=== PATIENT | male | born 1945 | race Caucasian/White ===

== ENCOUNTER → 2016-08-08 | Outpatient (CLI) | payer MEDICARE ==
[~2016-08-08] MED LIST: ATOR40TA70 PO; CLOP75TA28 PO; FURO40TA4 PO; GABA-488 PO; HYDR-3812 PO; Hydrocodone/APAP; LOSA25TA21 PO; Lasix; Lovastatin; MELO15TA39 PO; Meloxicam; POTA10CA43 PO; Potassium; Potassium Chloride
[2016-08-08 17:12] LABS: MEAN PLATELET VOLUME 9.5 FL (7.4-10.4); RED BLOOD COUNT 6.08 10^6/uL (4.35-5.85); RED CELL DISTRIBUTION WIDTH 14.3 % (10.0-14.5); WHITE BLOOD COUNT 7.6 10^3/uL (4.3-11.0)
[2016-08-08 17:23] LABS: KETONES,URINE NEGATIVE (NEGATIVE); LEUKOCYTE ESTERASE ,URINE 1+ (NEGATIVE); NITRITE,URINE NEGATIVE (NEGATIVE); PH,URINE 5 (5-9); PROTEIN,URINE 2+ (NEGATIVE); UROBILINOGEN,URINE 4 MG/DL (NORMAL)
[2016-08-08 17:37] LABS: BILIRUBIN,URINE NEGATIVE (NEGATIVE); WBC,URINE 0-2 /HPF
[2016-08-08 17:39] LABS: ALANINE AMINOTRANSFERASE 19 U/L (0-55); ANION GAP 11 MMOL/L (5-14); ASPARTATE AMINO TRANSFERASE 17 U/L (5-34); BILIRUBIN,TOTAL 0.6 MG/DL (0.1-1.0); BLOOD UREA NITROGEN 12 MG/DL (7-18); BUN/CREATININE RATIO 11 (0-20); CALCIUM 8.8 MG/DL (8.5-10.1); CARBON DIOXIDE 24 MMOL/L (21-32); CHLORIDE 105 MMOL/L (98-107); CREATININE SERUM 1.11 MG/DL (0.60-1.30); GFR ESTIMATED > 60; GLUCOSE 98 MG/DL (70-105); HEMOLYSIS 11 (0-29); ICTERUS 0.6 (0-1.9); LIPEMIA 5 (0-49); POTASSIUM 3.4 MMOL/L (3.6-5.0); SODIUM 140 MMOL/L (135-145); TOTAL PROTEIN 5.5 GM/DL (6.4-8.2)
[2016-08-08 17:59] LABS: THYROID STIMULATING HORMONE 3.27 UIU/ML (0.35-4.94); TROPONIN I < 0.30 NG/ML (<0.30)
[2016-08-08] MEDS: NS 100 ML (IVPB) BAG IV ONE (18:24)
[2016-08-08] MEDS: IOHEXOL 350 MG/ML 100 ML (OMNIPAQUE 350) VIAL IV ONE (18:24)
[2016-08-08] MEDS: CATHETER FLUSH 10 ML SYR IV PRN (18:24)
--- NOTE | 2016-08-08 18:47 | Diagnostic Imaging Report ---
PROCEDURE: CT head with and without contrast. TECHNIQUE: Multiple contiguous axial images were obtained through the brain before and after the administration of intravenous contrast. INDICATION: Visual disturbance and dizziness Comparison is made to study of 04/08/2014. There has been development of focal low-density within the posterior left parietal cortex and underlying white matter. This overall appearance with associated volume loss indicates nonacute infarct. There is no CT evidence of an acute infarct. There is no abnormal mass effect or shift of midline structures. Calvarium is intact and visualized paranasal sinuses are clear. No abnormal contrast enhancement is identified. IMPRESSION: Interval development of nonacute infarct or other insult in the left parietal region since 04/08/2014. There is no CT evidence of acute intracranial abnormality. MRI does have greater sensitivity for acute infarct if indicated. Dictated by: Dictated on workstation # [id number]
== END ==
LOC: RAD 16:49
PROVIDERS: ATTEND Physician Assistant
DX: R53.83 Other fatigue (principal); R42 Dizziness and giddiness; R51 Headache; R93.0 Abnormal findings on diagnostic imaging of skull and head, not elsewhere classified
CPT/HCPCS: 36415; 70470; 80053; 81000; 84443; 84484; 85027

== ENCOUNTER 2016-08-14 05:31 | Outpatient (CLI) | payer MEDICARE ==
[~2016-08-14] VITALS: Ht 177.8 cm; Wt 90.7 kg
== END 2016-08-14 14:27 ==
LOC: PREOP 05:31
PROVIDERS: ATTEND Internal Medicine
DX: Z01.818 Encounter for other preprocedural examination (principal); D12.8 Benign neoplasm of rectum

== ENCOUNTER 2016-08-16 06:56 | Day surgery (SDC) | payer MEDICARE ==
--- NOTE | 2016-08-12 20:24 | HISTORY AND PHYSICAL ---
DATE OF SERVICE: HISTORY OF PRESENT ILLNESS: The patient is a 71-year-old white male referred for surveillance colonoscopy. In August of last year, he had multiple adenomas removed. He had a large tubulovillous adenoma removed via snare ligation from the rectum. He had more than the average amount of bleeding and had to perform sclerotherapy with epinephrine which did terminate bleeding. He did have significant associated rectal spasm with pain at the time of the procedure that resolved over the next several days. He did not require blood transfusion. The polyp was quite friable and while it was snared, pathologist noted that there were multiple fragments of tissue with no evidence for overt malignancy. In the interim, he has noted no bright red blood per rectum, has had no rectal pain and denies any incontinence problems. He has been feeling well. There have been no changes in his health history. PAST MEDICAL HISTORY: Significant for coronary artery disease. He underwent bypass surgery in 2000, and he underwent left carotid endarterectomy in 2014. He is still on antiplatelet therapy in the form of clopidogrel 75 mg daily. He has a past history of hypertension and hyperlipidemia. PAST SURGICAL HISTORY: Also significant for several neck fusion surgeries in the past. PHYSICAL EXAMINATION: GENERAL: Reveals a white male who appears to be in no acute distress. VITAL SIGNS: Blood pressure was 116/62, weight is 207 pounds and is unchanged from one year ago. CHEST: Clear. CARDIOVASCULAR: Reveals a regular rate and rhythm without murmur, S3 or S4. NECK: Revealed no JVD, adenopathy or bruits. ABDOMEN: Soft, supple without mass, organomegaly or tenderness. RECTAL: Deferred at the time of the procedure. EXTREMITIES: Reveal no cyanosis, clubbing or edema. ASSESSMENT AND PLAN: The patient was set up for surveillance colonoscopy due to previous villous adenoma removed from the rectum. Prep instructions with Colyte were given. He reported symptoms of bloating last time and could not finish the Suprep bowel prep that was given. He was given 10 mg Reglan tablet to take one hour prior to initiating his Colyte prep . He is to discontinue Plavix. He occasionally takes ibuprofen at bedtime and was advised to abstain from this as well. Thank you for the referral of this pleasant gentleman. Job ID: [id number] DocumentID: [id number] Dictated Date: 08/12/2016 17:22:47 Jig Filler Date: 08/12/2016 20:05:20 Dictated By: KESHAV CHISHOLM MD MTDD
[~2016-08-16] VITALS: Ht 177.8 cm; Wt 90.7 kg
[2016-08-16] MEDS ORDERED: 1/2 NS IV SOLUTION 1,000 ML IV STA (07:11)
[2016-08-16] MEDS ORDERED: FLUMAZENIL (ROMAZICON) 0.1 MG/ML 5 ML VIAL INJ PRN (07:15)
[2016-08-16] MEDS ORDERED: MIDAZOLAM 2 MG/2 ML (VERSED) VIAL IVP PRN (07:15)
[2016-08-16] MEDS ORDERED: NALOXONE 0.4 MG/ML 1 ML (NARCAN) VIAL IVP PRN (07:15)
[2016-08-16] MEDS ORDERED: LIDOCAINE JELLY 2% (XYLOCAINE) 5 ML TUBE MM PRN (07:15)
--- NOTE | 2016-08-16 07:45 | Pre-Op Note & Conscious Sedat ---
Pre-Operative Progress Note H&P Reviewed The H&P was reviewed, patient examined and no changes noted. Date H&P Reviewed: Aug 16, 2016 Time H&P Reviewed: 07:45 Conscious Sedation Pre-Proced ASA Class: 2 Airway Mallampati Classification: ([place] appropriate class) I. II. III, IV Lungs Heart ASA score ASA 1: a normal healthy patient ASA 2: a patient with a mild systemic disease (mid diabetes, controlled hypertension, obesity ASA 3: a patient with a severe systemic disease that limits activity (angina , COPD, prior Myocardial infarction) ASA 4: a patient with an incapacitating disease that is a constant threat to life (CHF, renal failure) ASA 5: a moribund patient not expected to survive 24 hrs. (ruptured aneurysm) ASA 6: a declared brain patient whose organs are being harvested. For emergent operations, add the letter E after the classification Grade 2 Sedation Plan: Analgesia, Amnesia, Plan communicated to team members, Discussed options with patient/fam, Discussed risks with patient/fam Note The patient is an appropriate candidate to undergo the planned procedure, sedation, and anesthesia. The patient immediately re-assessed prior to indication. KESHAV CHISHOLM MD Aug 16, 2016 07:45
[2016-08-16 07:51] VITALS: BP 120/83
[2016-08-16] MEDS ORDERED: CLOP75TA28 PO (08:01)
[2016-08-16] MEDS ORDERED: MELO15TA39 PO (08:01)
[2016-08-16] MEDS ORDERED: CYCL5TAB PO (08:01)
[2016-08-16] MEDS ORDERED: MIDAZOLAM 2 MG/2 ML (VERSED) VIAL ONE (08:03)
[2016-08-16] MEDS ORDERED: LIDOCAINE JELLY 2% (XYLOCAINE) 5 ML TUBE ONE (08:03)
[2016-08-16] MEDS ORDERED: fentaNYL INJECTION 100 MCG/2 ML AMP ONE (08:03)
[2016-08-16] MEDS: fentaNYL INJECTION 100 MCG/2 ML AMP IVP PRN ×2 (08:23→08:31)
[2016-08-16] MEDS ORDERED: EPINEPHrine INJECTION 1 MG/ML AMP ONE (09:08)
[2016-08-16 09:30] VITALS: BP 109/46
[2016-08-16 10:15] VITALS: BP 137/99
[2016-08-16 13:40] VITALS: BP 137/99
--- NOTE | 2016-08-16 18:46 | OPERATIVE REPORT ---
DATE OF SERVICE: 08/16/2016 COLONOSCOPY REPORT This is a surveillance colonoscopy for followup of a villous adenoma noted and removed via snare one year ago. There was significant amount of bleeding at that time obscuring the field. Histopathology reported that time revealed a villous adenoma with no evidence for dysplasia or malignancy. The patient was placed in the left lateral decubitus position. Prior to undergoing colonoscopy digital rectal evaluation was performed. Anal sphincter tone was normal and the perianal reflex is intact. No abnormalities are noted on additional inspection of the distal rectal vault or anal canal. The colonoscope was then inserted into the rectum and under direct visualization advanced to the cecum. The cecum was identified by identification of the ileocecal valve. The base of the cecum was not visualized due to stool. Previous visualization, one year ago had been good with photographic documentation. With careful inspection the colonoscope was withdrawn. The quality of the prep was poor. The suction port became plugged and despite flushing and changing out suction button could not unplug it such that had leave fair amount of air. FINDINGS: There was no evidence for internal or external hemorrhoids. There was significant remnant left previous villous adenoma. Photograph was obtained. It was then snared and quite friable. There was no firmness noted. There is no induration noted. There was actually less bleeding than I was expecting considering the degree of friability noted on biopsies taken. The site was monitored for several minutes with cessation of bleeding within the first 20 seconds post-snaring. The remainder of the rectum was unremarkable. Present in the distal sigmoid colon was a diminutive 3 mm sessile polyp. It was biopsied and ablated with a hot forceps with no blood loss. Mild diverticular disease again was noted confined to the sigmoid colon with no evidence for diverticulitis. No other sigmoid colonic abnormalities were appreciated. The descending colon, transverse colon, ascending colon and cecum were unremarkable, although the quality of the prep was poor and there was incomplete visualization due to retained stool. ASSESSMENT: There was still a remnant of the previously snared villous adenoma present in the mid to distal rectum. The remainder was removed via snaring. One other diminutive polyp adenomatous in appearance was removed from the distal sigmoid colon. There was less blood loss from the rectal polyp than expected. We will need to await histopathology report before making recommendations on future surveillance colonoscopy. The patient again had mild diverticular disease confined to the sigmoid colon without evidence for diverticulitis. I thank you for the referral of this pleasant gentleman. Job ID: [id number] DocumentID: [id number] Dictated Date: 08/16/2016 09:47:35 [employer] Date: 08/16/2016 16:24:37 Dictated By: KESHAV CHISHOLM MD MTDD
--- OUTSIDE RECORDS SUMMARY | 2016-08-19 14:34 | XMS REPORT | Continuity of Care Document ---
Author Author [facility] Organization [facility] Address Unknown Phone Unavailable Allergies Active Description Code Type Severity Reaction Onset Reported/Identified Relationship to Patient Clinical Status Yes No Known Drug Allergies [id number] Drug Allergy Unknown N/ A 08/14/2016 Medications Problems Date Dx Coded Attending Type Code Diagnosis Diagnosed By 01/24/1304 MELISSA STEVENSON MD Ot M62.81 01/24/1304 MELISSA STEVENSON MD Ot R26.0 01/19/2014 CHRISTIAN HOYOS, CASSANDRA Painting Ot 715.35 01/19/2014 CHRISTIAN HOYOS, CASSANDRA Mert Ot 724.2 01/19/2014 CHRISTIAN OHYOS, CASSANDRA Mert Ot 724.6 01/31/2014 CHRISTIAN HOYOS, CASSANDRA Mert Ot 715.35 01/31/2014 CHRISTIAN HOYOS, CASSANDRA Painting Ot 724.2 01/31/2014 CHRISTIAN HOYOS, CASSANDRA Painting Ot 724.6 04/08/2014 SOLO MENDEZ Ot 272.4 HYPERLIPIDEMIA NEC/NOS 04/08/2014 SOLO MENDEZ Ot 401.9 HYPERTENSION NOS 04/08/2014 SOLO MENDEZ Ot 414.00 CORON ATHEROSCLER NOS TYPE VESSEL, NATIV 04/08/2014 SOLO MENDEZ Ot 443.9 PERIPH VASCULAR DIS NOS 04/08/2014 SOLO MENDEZ Ot 782.0 SKIN SENSATION DISTURB 04/08/2014 SOLO MENDEZ Ot V45.81 AORTOCORONARY BYPASS 04/08/2014 SOLO MENDEZ Ot V58.69 OTH MED,LT,CURRENT USE 04/11/2014 Ot 562.10 04/11/2014 Ot 593.9 04/11/2014 Ot 733.90 04/11/2014 Ot 722.52 04/11/2014 Ot 794.8 04/11/2014 Ot 573.8 04/11/2014 Ot 600.00 04/11/2014 Ot 733.90 04/11/2014 CARMEN DELVALLE EMPLOYMENT RECRUITER Ot 550.90 04/11/2014 CARMEN DELVALLE EMPLOYMENT RECRUITER Ot 562.10 04/11/2014 CARMNE DELVALLE EMPLOYMENT RECRUITER Ot 591 04/11/2014 CARMEN DELVALLE EMPLOYMENT RECRUITER Ot 592.1 04/11/2014 CHRISTIAN HOYOS, CASSANDRA D Ot 715.35 04/11/2014 CHRISTIAN HOYOS, CASSANDRA D Ot 724.2 04/11/2014 CHRISTIAN HOYOS, CASSANDRA D Ot 724.6 11/30/2014 Ot 562.10 11/30/2014 Ot 593.9 11/30/2014 Ot 733.90 11/30/2014 Ot 722.52 11/30/2014 Ot 794.8 11/30/2014 Ot 573.8 11/30/2014 Ot 600.00 11/30/2014 Ot 733.90 11/30/2014 CARMEN DELVALLE EMPLOYMENT RECRUITER Ot 550.90 11/30/2014 CARMEN DELVALLE EMPLOYMENT RECRUITER Ot 562.10 11/30/2014 CARMEN DELVALLE EMPLOYMENT RECRUITER Ot 591 11/30/2014 CARMEN DELVALLE EMPLOYMENT RECRUITER Ot 592.1 11/30/2014 CHRISTIAN HOYOS, CASSANDRA D Ot 715.35 11/30/2014 CHRISTAIN HOYOS, CASSANDRA Painting Ot 724.2 11/30/2014 CHRISTIAN HOYOS, CASSANDRA Painting Ot 724.6 12/22/2014 MELISSA STEVENSON MD Ot I25.10 01/16/2015 MELISSA STEVENSON MD Ot M62.81 01/16/2015 MELISSA STEVENSON MD Ot R26.0 01/16/2015 MELISSA STEVENSON MD Ot M62.81 01/16/2015 MELISSA STEVENSON MD Ot R26.0 02/09/2015 MELISSA STEVENSON MD Ot M62.81 02/09/2015 MELISSA STEVENSON MD Ot R26.0 02/28/2015 MELISSA STEVENSON MD Ot M62.81 MUSCLE WEAKNESS (GENERALIZED) 02/28/2015 MELISSA STEVENSON MD Ot R26.0 ATAXIC GAIT 03/02/2015 MELISSA STEVENSON MD Ot M62.81 03/02/2015 MELISSA STEVENSON MD Ot R26.0 03/03/2015 MELISSA STEVENSON MD Ot M62.81 03/03/2015 MELISSA STEVENSON MD Ot R26.0 04/13/2015 MELISSA STEVENSON MD Ot M62.81 MUSCLE WEAKNESS (GENERALIZED) 04/13/2015 MELISSA STEVENSON MD Ot R26.0 ATAXIC GAIT 07/17/2015 SELENE BROCK MD Ot G54.1 LUMBOSACRAL PLEXUS DISORDERS 07/17/2015 SELENE BROCK MD Ot G54.1 LUMBOSACRAL PLEXUS DISORDERS 07/31/2015 KODI ESQUEDA EMPLOYMENT RECRUITER Ot I20.9 ANGINA PECTORIS, UNSPECIFIED 07/31/2015 KODI ESQUEDA EMPLOYMENT RECRUITER Ot R42 DIZZINESS AND GIDDINESS 07/31/2015 KODI ESQUEDA EMPLOYMENT RECRUITER Ot Z79.02 BINDERY LEADPERSON (CURRENT) USE OF ANTITHROMBOTI 07/31/2015 KODI ESQUEDA EMPLOYMENT RECRUITER Ot Z87.891 PERSONAL HISTORY OF NICOTINE DEPENDENCE 08/02/2015 KODI ESQUEDA EMPLOYMENT RECRUITER Ot I20.9 ANGINA PECTORIS, UNSPECIFIED 08/02/2015 KODI ESQUEDA EMPLOYMENT RECRUITER Ot R42 DIZZINESS AND GIDDINESS 08/02/2015 KODI ESQUEDA EMPLOYMENT RECRUITER Ot Z79.02 [facility] (CURRENT) USE OF ANTITHROMBOTI 08/02/2015 KODI ESQUEDA EMPLOYMENT RECRUITER Ot Z87.891 PERSONAL HISTORY OF NICOTINE DEPENDENCE 08/16/2015 SELENE BROCK MD Ot G54.1 LUMBOSACRAL PLEXUS DISORDERS 08/16/2015 SELENE BROCK MD Ot G54.1 LUMBOSACRAL PLEXUS DISORDERS 09/04/2015 MIRLANDE HOYOS, KULWANT Flores Ot M54.2 CERVICALGIA 09/11/2015 KATHRINE HOYOS, KESHAV Painting Ot Z01.818 ENCOUNTER FOR OTHER PREPROCEDURAL EXAMIN 09/11/2015 KATHRINE HOYOS, KESHAV Painting Ot Z12.11 ENCOUNTER FOR SCREENING FOR MALIGNANT NE 09/12/2015 KESHAV CHISHOLM MD Ot Z01.818 ENCOUNTER FOR OTHER PREPROCEDURAL EXAMIN 09/12/2015 KESHAV CHISHOLM MD Ot Z12.11 ENCOUNTER FOR SCREENING FOR MALIGNANT NE 09/19/2015 KESHAV CHISHOLM MD Ot D12.8 BENIGN NEOPLASM OF RECTUM 09/19/2015 KESHAV CHISHOLM MD Ot K57.30 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 AB 09/19/2015 KESHAV CHISHOLM MD Ot K63.5 POLYP OF COLON 09/19/2015 KESHAV CHISHOLM MD Ot Z12.11 ENCOUNTER FOR SCREENING FOR MALIGNANT NE 09/26/2015 KESHAV CHISHOLM MD Ot D12.8 BENIGN NEOPLASM OF RECTUM 09/26/2015 KESHAV CHISHOLM MD Ot K57.30 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 AB 09/26/2015 KESHAV CHISHOLM MD Ot K63.5 POLYP OF COLON 09/26/2015 KESHAV CHISHOLM MD Ot Z12.11 ENCOUNTER FOR SCREENING FOR MALIGNANT NE 11/15/2015 KESHAV CHISHOLM MD Ot D12.8 BENIGN NEOPLASM OF RECTUM 11/15/2015 KESHAV CHISHOLM MD Ot K57.30 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 AB 11/15/2015 KESHAV CHISHOLM MD Ot K63.5 POLYP OF COLON 11/15/2015 KESHAV CHISHOLM MD Ot Z12.11 ENCOUNTER FOR SCREENING FOR MALIGNANT NE 11/22/2015 KESHAV CHISHOLM MD Ot D12.8 BENIGN NEOPLASM OF RECTUM 11/22/2015 KESHAV CHISHOLM MD Ot K57.30 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 AB 11/22/2015 KESHAV CHISHOLM MD Ot K63.5 POLYP OF COLON 11/22/2015 KESHAV CHISHOLM MD Ot Z12.11 ENCOUNTER FOR SCREENING FOR MALIGNANT NE 02/12/2016 Ot 562.10 DIVERTICULOSIS COLON (W/O MENT OF HEMORR 02/12/2016 Ot 593.9 RENAL URETERAL DIS NOS 02/12/2016 Ot 733.90 BONE CARTILAGE DIS NOS 02/12/2016 Ot 722.52 LUMB/LUMBOSAC DISC DEGEN 02/12/2016 Ot 794.8 ABN LIVER FUNCTION STUDY 02/12/2016 Ot 573.8 LIVER DISORDERS NEC 02/12/2016 Ot 600.00 HYPERTROPHY (BENIGN) OF PROSTATE W/O URI 02/12/2016 Ot 733.90 BONE CARTILAGE DIS NOS 02/12/2016 CARMEN DELVALLE N EMPLOYMENT RECRUITER Ot 550.90 UNILAT INGUINAL HERNIA 02/12/2016 CARMEN DELVALLE Mitchel EMPLOYMENT RECRUITER Ot 562.10 DIVERTICULOSIS COLON (W/O MENT OF HEMORR 02/12/2016 CARMEN DELVALLE [place]chel EMPLOYMENT RECRUITER Ot 591 HYDRONEPHROSIS 02/12/2016 CARMEN DELVALLE Mitchel EMPLOYMENT RECRUITER Ot 592.1 CALCULUS OF URETER 02/12/2016 CASSANDRA GONZALES MD Ot 715.35 LOC OSTEOARTH NOS-PELVIS 02/12/2016 CASSANDRA GONZALES MD Ot 724.2 LUMBAGO 02/12/2016 CASSANDRA GONZALES MD Ot 724.6 DISORDERS OF SACRUM 02/12/2016 GRAHMA HOYOS, MELISSA Painting Ot I25.10 ATHSCL HEART DISEASE OF [place] CORONARY 02/12/2016 DELMY HOYOS, SELENE Rascon Ot G54.1 LUMBOSACRAL PLEXUS DISORDERS 02/12/2016 KESHAV CHISHOLM MD Ot D12.8 BENIGN NEOPLASM OF RECTUM 02/12/2016 KESHAV CHISHOLM MD Ot K57.30 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 AB 02/12/2016 KESHAV CHISHOLM MD Ot K63.5 POLYP OF COLON 02/12/2016 KESHAV CHISHOLM MD Ot Z12.11 ENCOUNTER FOR SCREENING FOR MALIGNANT NE 03/08/2016 MARIO ROSADO MD Ot E04.1 NONTOXIC SINGLE THYROID NODULE 03/18/2016 MARIO ROSADO MD, Ot E04.1 NONTOXIC SINGLE THYROID NODULE Procedures Results Test Result Range Automated blood complete blood count (hemogram) panel - 08/08/16 17:05 Blood leukocytes automated count (number/volume) 7.6 10*3/ uL 4.3-11.0 Blood erythrocytes automated count (number/volume) 6.08 10*6 /uL 4.35-5.85 Venous blood hemoglobin measurement (mass/volume) 16.5 g/dL 13.3-17.7 Blood hematocrit (volume fraction) 52 % 40-54 Automated erythrocyte mean corpuscular volume 85 [foz_us] 80-99 Automated erythrocyte mean corpuscular hemoglobin (mass per erythrocyte) 27 pg 25-34 Automated erythrocyte mean corpuscular hemoglobin concentration measurement ( mass/volume) 32 g/dL 32-36 Automated erythrocyte distribution width ratio 14.3 % 10.0-14.5 Automated blood platelet count (count/volume) 291 10*3/uL 130-400 Automated blood platelet mean volume measurement 9.5 [foz_us ] 7.4-10.4 Comprehensive metabolic panel - 08/08/16 17:05 Serum or plasma sodium measurement (moles/volume) 140 mmol/ L 135-145 Serum or plasma potassium measurement (moles/volume) 3.4 mmol/L 3.6-5.0 Serum or plasma chloride measurement (moles/volume) 105 mmol /L 98-107 Carbon dioxide 24 mmol/L 21-32 Serum or plasma anion gap determination (moles/volume) 11 mmol/L 5-14 Serum or plasma urea nitrogen measurement (mass/volume) 12 mg/dL 7-18 Serum or plasma creatinine measurement (mass/volume) 1.11 mg /dL 0.60-1.30 Serum or plasma urea nitrogen/creatinine mass ratio 11 0-20 Serum or plasma creatinine measurement with calculation of estimated glomerular filtration rate > NRG Serum or plasma glucose measurement (mass/volume) 98 mg/dL 70-105 Serum or plasma calcium measurement (mass/volume) 8.8 mg/dL 8.5-10.1 Serum or plasma total bilirubin measurement (mass/volume) 0.6 mg/dL 0.1-1.0 Serum or plasma alkaline phosphatase measurement (enzymatic activity/volume) 52 U/L 40-136 Serum or plasma aspartate aminotransferase measurement (enzymatic activity/ volume) 17 U/L 5-34 Serum or plasma alanine aminotransferase measurement (enzymatic activity/volume ) 19 U/L 0-55 Serum or plasma protein measurement (mass/volume) 5.5 g/dL 6.4-8.2 Serum or plasma albumin measurement (mass/volume) 4.0 g/dL 3.2-4.5 Serum or plasma troponin i.cardiac measurement (mass/volume) - 08/08/16 17:05 Serum or plasma troponin i.cardiac measurement (mass/volume) < ng/mL <0.30 THYROID STIMULATING HORMONE - 08/08/16 17:05 THYROID STIMULATING HORMONE 3.27 u[iU]/mL 0.35-4.94 Complete urinalysis with reflex to culture - 08/08/16 17:13 Urine color determination YELLOW NRG Urine clarity determination CLEAR NRG Urine pH measurement by test strip 5 5- 9 Specific gravity of urine by test strip 1.025 1.016-1.022 Urine protein assay by test strip, semi-quantitative 2+ NEGATIVE Urine glucose detection by automated test strip NEGATIVE NEGATIVE Erythrocytes detection in urine sediment by light microscopy NEGATIVE NEGATIVE Urine ketones detection by automated test strip NEGATIVE NEGATIVE Urine nitrite detection by test strip NEGATIVE NEGATIVE Urine total bilirubin detection by test strip NEGATIVE NEGATIVE Urine urobilinogen measurement by automated test strip (mass/volume) 4 mg/dL NORMAL Urine leukocyte esterase detection by dipstick 1+ NEGATIVE Automated urine sediment erythrocyte count by microscopy (number/high power field) NONE NRG Automated urine sediment leukocyte count by microscopy (number/high power field ) [HPF] NRG Bacteria detection in urine sediment by light microscopy NONE NRG Crystals detection in urine sediment by light microscopy NONE NRG Casts detection in urine sediment by light microscopy NONE NRG Mucus detection in urine sediment by light microscopy SMALL NRG Complete urinalysis with reflex to culture NO NRG Encounters ACCT No. Visit Date/Time Discharge Status Pt. Type Provider Facility Loc./Unit Complaint [id number] 08/16/2016 06:56:00 2016 13:40:00 DIS Outpatient KESHAV CHISHOLM MD [facility] ENDO VILLIOUS ADENOUS RECTUM [id number] 08/14/2016 05:31:00 2016 14:27:00 DIS Outpatient KESHAV CHISHOLM MD [facility] PREOP VILLIOUS ADENOUS RECTUM [id number] 09/11/2015 05:41:00 2015 09:34:00 DIS Outpatient KESHAV CHISHOLM MD [facility] PREOP SCREENING [id number] 09/01/2015 08:28:00 2015 11:08:00 DIS Outpatient KULWANT NOGUEIRA MD [facility] REHAB NECK PAIN [id number] 07/31/2015 14:10:00 2015 18:06:00 DIS Emergency KODI ESQUEDA APRN [facility] ER DIZZINESS CHEST PAIN/SOA [id number] 04/13/2015 08:25:00 2015 13:05:00 DIS Outpatient MELISSA STEVENSON MD [facility] REHAB GENERAL MUSCLE WEAKNESS, GAIT ATAXIA [id number] 02/22/2015 15:00:00 2015 00:01:00 DIS Outpatient MELISSA STEVENSON MD [facility] REHAB GENERAL MUSCLE WEAKNESS, GAIT ATAXIA [id number] 11/30/2014 15:02:00 2014 23:59:59 CLS Outpatient MELISSA STEVENSON MD [facility] LAB CAD [id number] 08/03/2014 12:04:00 2014 23:59:59 CLS Preadmit CASSANDRA GONZALES MD [facility] REHAB [id number] 04/08/2014 13:13:00 2014 18:55:00 DIS Emergency SOLO MENDEZ [facility] ER POSS MINI STROKE [id number] 12/21/2013 14:24:00 2013 23:59:59 CLS Outpatient CASSANDRA GONZALES MD [facility] RAD LOW BACK PAIN, HIP PAIN [id number] 10/27/2013 15:39:00 2013 23:59:59 CLS Outpatient CARMEN DELVALLE APRN [facility] RAD ABD PAIN [id number] 08/08/2016 16:49:00 ACT Outpatient SOLO MENDEZ [facility] RAD DIZZNINESS,BLURRY VISION [id number] 02/12/2016 10:24:00 ACT Outpatient MARIO ROSADO MD [facility] RAD THYROID NODULE [id number] 09/15/2015 08:51:00 ACT Outpatient KESHAV CHISHOLM MD [facility] SDC SCREENING [id number] 07/14/2015 11:28:00 ACT Outpatient SELENE BROCK MD [facility] CARD LESION L3 [id number] 04/06/2012 11:46:00 Document Registration [id number] 04/02/2012 08:16:00 Document Registration [id number] 03/31/2012 14:04:00 Document Registration
== END 2016-08-16 13:40 | disposition home or self-care (01) ==
LOC: ENDO 06:56
PROVIDERS: ATTEND Internal Medicine
DX: D12.8 Benign neoplasm of rectum (principal); K63.5 Polyp of colon; K57.30 Diverticulosis of large intestine without perforation or abscess without bleeding; I25.10 Atherosclerotic heart disease of native coronary artery without angina pectoris; I10 Essential (primary) hypertension; E78.5 Hyperlipidemia, unspecified; Z95.1 Presence of aortocoronary bypass graft; Z79.02 Long term (current) use of antithrombotics/antiplatelets

== ENCOUNTER → 2016-08-21 | Outpatient (CLI) | payer MEDICARE ==
[~2016-08-21] MED LIST changes: +CYCL5TAB PO
--- NOTE | 2016-08-21 17:51 | Diagnostic Imaging Report ---
PROCEDURE: MR angiography of the brain without the use of contrast. TECHNIQUE: 3D [id number] non contrast enhanced MR angiography of the head was performed. A source data was reformatted into rotating MIP projections. INDICATION: Blurred vision. FINDINGS: There is symmetric curvilinear hypointensity seen within the internal carotid arteries at the level of the base of the skull and intracranially suggestive of artifactual flow-related phenomenon rather than an intimal flap or dissection. There is patency of the internal carotid, the anterior cerebral and middle cerebral arteries bilaterally. The vertebral arteries are codominant. The basilar artery is patent. The posterior cerebral arteries are patent bilaterally. There is no aneurysm, high-grade stenosis, or occlusion seen. IMPRESSION: Unremarkable exam with no high-grade stenosis, occlusion or aneurysm in the central intracranial arteries. Dictated by: Dictated on workstation # [id number]
== END ==
LOC: RAD 10:07
PROVIDERS: ATTEND Physician Assistant
DX: R42 Dizziness and giddiness (principal); H53.8 Other visual disturbances
CPT/HCPCS: 70544

== ENCOUNTER 2016-11-22 11:16 | Outpatient (RCR) | payer MEDICARE | END 2016-11-23 | disposition home or self-care (01) | PROVIDERS: ATTEND Neurological Surgery | DX: M54.2 Cervicalgia (principal) ==

== ENCOUNTER 2017-01-30 08:57 | Outpatient (RCR) | payer MEDICARE ==
[~2017-01-30 08:57] MED LIST changes: +ACHD5005 PO; -HYDR-3812 PO
== END 2017-02-24 00:10 | disposition home or self-care (01) ==
PROVIDERS: ATTEND Neurological Surgery
DX: M54.2 Cervicalgia (principal)

== ENCOUNTER 2017-05-05 10:48 | Outpatient (RCR) | payer MEDICARE ==
--- NOTE | 2017-05-06 14:22 | HISTORY AND PHYSICAL ---
DATE OF SERVICE: HISTORY AND PHYSICAL FOR FLEXIBLE SIGMOIDOSCOPY HISTORY OF PRESENT ILLNESS: The patient is a pleasant 71-year-old white male undergoing flexible sigmoidoscopy, due to previous villous adenoma flaps removed in the mid distal rectum and anterior location. He was seen in the office on the 05/05/2017. Since his last colonoscopy in 07/2016, he reports there have been no health changes. He denies rectal bleeding, pain, tenesmus or change in bowel habits. He has had no subsequent surgery since that time and denies any cardiac problems. PAST MEDICAL HISTORY: Other than the aforementioned villous adenoma, is noted for coronary artery disease. He underwent bypass surgery in 2000 and underwent left carotid endarterectomy in 2014. He continues antiplatelet therapy with a baby aspirin and Plavix 75 mg daily. He also has a past history of hypertension and hyperlipidemia. He reports no known medical allergies. PAST SURGICAL HISTORY: Other than his bypass is significant for several cervical fusion surgeries. PHYSICAL EXAMINATION: GENERAL: Reveals a well-appearing white male, in no acute distress. VITAL SIGNS: Blood pressure 126/76, heart rate 72 and regular. HEENT: He has a Mallampati class 2 oropharyngeal configuration. Pharynx is clear, no erythema or exudate is noted. NECK: Reveals no JVD, adenopathy or bruits with a well healed carotid endarterectomy scar. CHEST: Clear. CARDIOVASCULAR: Reveals a regular rate and rhythm without murmur, S3 or S4. ABDOMEN: Soft, supple without mass, organomegaly or tenderness. Bowel sounds are positive in all 4 quadrants and no bruits are noted. ASSESSMENT AND PLAN: For surveillance due to past sessile large villous adenoma in the rectum. He will undergo flexible sigmoidoscopy. After discussion, he is not comfortable with giving himself an enema at home, so he was instructed in a clear liquid diet the day before his procedure and we will plan Fleet's enema on arrival to endoscopy. He was advised to abstain from Plavix and aspirin, 1 week prior to the procedure and avoid nonsteroidals for at least 48 hours. Prep instructions were given, questions were answered and the procedure was set up. 25 minutes of personal kfci-bl-[id number] time was performed by myself and another 10 minutes staff time in setting of the procedure and going over instructions. I thank you for the referral of this pleasant gentleman. Sincerely, Job ID: [id number] DocumentID: [id number] Dictated Date: 05/06/2017 13:38:30 Manager Msw Date: 05/06/2017 14:22:24 Dictated By: KESHAV CHISHOLM MD MTDD
== END 2017-05-07 | disposition home or self-care (01) ==
PROVIDERS: ATTEND Student in an Organized Health Care Education/Training Program
DX: M75.41 Impingement syndrome of right shoulder (principal)

== ENCOUNTER 2017-05-19 12:00 | Outpatient (CLI) | payer MEDICARE ==
[~2017-05-19] VITALS: Ht 177.8 cm; Wt 90.7 kg
[2017-05-19] MEDS ORDERED: TEST200V21 IM (12:36)
[2017-05-19] MEDS ORDERED: MELO15TA39 PO (12:36)
[2017-05-19] MEDS ORDERED: CLOP75TA28 PO (12:36)
[2017-05-19] MEDS ORDERED: NORT10CA3 PO (12:36)
[2017-05-19] MEDS ORDERED: ERGO50006 PO (12:36)
[2017-05-19] MEDS ORDERED: ERGO2000 PO (12:36)
== END 2017-05-19 12:37 ==
LOC: PREOP 12:00
PROVIDERS: ATTEND Internal Medicine
DX: Z01.818 Encounter for other preprocedural examination (principal); K62.1 Rectal polyp

== ENCOUNTER 2017-05-21 21:00 | Outpatient (CLI) | payer MEDICARE ==
[~2017-05-21 21:00] MED LIST changes: +ERGO2000 PO; +ERGO50006 PO; +NORT10CA3 PO; +TEST200V21 IM
== END 2017-05-22 06:35 | disposition home or self-care (01) ==
LOC: SLEEP 21:00
PROVIDERS: ATTEND Family Medicine
DX: G47.10 Hypersomnia, unspecified (principal); G47.36 Sleep related hypoventilation in conditions classified elsewhere
CPT/HCPCS: 95810

== ENCOUNTER 2017-05-23 06:49 | Day surgery (SDC) | payer MEDICARE ==
[~2017-05-23] VITALS: Ht 177.8 cm; Wt 90.7 kg
[2017-05-23] MEDS ORDERED: 1/2 NS IV SOLUTION 1,000 ML IV ONE (07:06)
[2017-05-23] MEDS ORDERED: 1/2 NS IV SOLUTION 1,000 ML IV STA (07:07)
[2017-05-23] MEDS ORDERED: FLEET ENEMA ADULT 1 EA BTL ONE (07:08)
[2017-05-23] MEDS ORDERED: MIDAZOLAM 2 MG/2 ML (VERSED) VIAL IVP PRN (07:15)
[2017-05-23] MEDS ORDERED: fentaNYL INJECTION 100 MCG/2 ML AMP IVP PRN (07:15)
[2017-05-23] MEDS ORDERED: LIDOCAINE JELLY 2% (XYLOCAINE) 5 ML TUBE MM PRN (07:15)
[2017-05-23 07:24] VITALS: BP 112/75
[2017-05-23] MEDS ORDERED: FLEET ENEMA ADULT 1 EA BTL PR ONE (07:30)
[2017-05-23] MEDS ORDERED: fentaNYL INJECTION 100 MCG/2 ML AMP ONE (07:54)
[2017-05-23] MEDS ORDERED: LIDOCAINE JELLY 2% (XYLOCAINE) 5 ML TUBE ONE (07:55)
[2017-05-23] MEDS ORDERED: MIDAZOLAM 2 MG/2 ML (VERSED) VIAL ONE (07:55)
--- NOTE | 2017-05-23 08:33 | Pre-Op Note & Conscious Sedat ---
Pre-Operative Progress Note H&P Reviewed The H&P was reviewed, patient examined and no changes noted. Date H&P Reviewed: May 23, 2017 Time H&P Reviewed: 07:50 Conscious Sedation Pre-Proced ASA Class: 2 Airway Mallampati Classification: ([place] appropriate class) I. II. III, IV Lungs Heart ASA score ASA 1: a normal healthy patient ASA 2: a patient with a mild systemic disease (mid diabetes, controlled hypertension, obesity ASA 3: a patient with a severe systemic disease that limits activity (angina , COPD, prior Myocardial infarction) ASA 4: a patient with an incapacitating disease that is a constant threat to life (CHF, renal failure) ASA 5: a moribund patient not expected to survive 24 hrs. (ruptured aneurysm) ASA 6: a declared brain patient whose organs are being harvested. For emergent operations, add the letter E after the classification Grade 2 Sedation Plan: Analgesia, Amnesia, Plan communicated to team members, Discussed options with patient/fam, Discussed risks with patient/fam Note The patient is an appropriate candidate to undergo the planned procedure, sedation, and anesthesia. The patient immediately re-assessed prior to indication. KESHAV CHISHOLM MD May 23, 2017 08:32
[2017-05-23 08:35] VITALS: BP 130/70
[2017-05-23 09:00] VITALS: BP 130/70
--- NOTE | 2017-05-23 15:12 | OPERATIVE REPORT ---
DATE OF SERVICE: PROCEDURE: Flexible sigmoidoscopy. This is a surveillance procedure performed due to past history of villous adenoma in the distal rectum without previous evidence for dysplasia. PROCEDURE IN DETAIL: The patient was placed in left lateral decubitus position. Digital rectal evaluation was performed. There is again evidence for polyp noted 2 to 3 cm proximal from the anal verge, centered around the 11 o'clock position. The area is soft. There is no induration and there is normal rectal mobility to digital inspection. There is surgical absence of the prostate. No other palpable abnormalities and no additional inspection on today's rectal exam. The colonoscope was then inserted into the rectum and advanced to the mid sigmoid colon. Again noted was evidence for recurrence of a flat villous adenoma. The uniform features were noted. There was no evidence for ulceration and a photograph was obtained. The majority of the polyp was snared, basketed and submitted for histopathology. There is still evidence for polyp tissue spreading out from the base and cauterization was performed x3 with minimal bleeding. ASSESSMENT: Recurrent villous adenoma with benign appearance and feel on inspection. As long as there is no evidence for microscopic malignancy, we will likely be having the patient return in 3 months for repeat surveillance. I thank you for the referral. Job ID: [id number] DocumentID: [id number] Dictated Date: 05/23/2017 08:48:40 Bridge Contractor Date: 05/23/2017 13:04:15 Dictated By: KESHAV CHISHOLM MD [facility]
--- NOTE | 2017-05-28 09:21 | HISTORY AND PHYSICAL ---
DATE OF SERVICE: 05/23/2017 HISTORY AND PHYSICAL FOR FLEXIBLE SIGMOIDOSCOPY HISTORY OF PRESENT ILLNESS: The patient is a pleasant 71-year-old white male undergoing flexible sigmoidoscopy, due to previous villous adenoma flaps removed in the mid distal rectum and anterior location. He was seen in the office on the 05/05/2017. Since his last colonoscopy in 07/2016, he reports there have been no health changes. He denies rectal bleeding, pain, tenesmus or change in bowel habits. He has had no subsequent surgery since that time and denies any cardiac problems. PAST MEDICAL HISTORY: Other than the aforementioned villous adenoma, is noted for coronary artery disease. He underwent bypass surgery in 2000 and underwent left carotid endarterectomy in 2014. He continues antiplatelet therapy with a baby aspirin and Plavix 75 mg daily. He also has a past history of hypertension and hyperlipidemia. He reports no known medical allergies. PAST SURGICAL HISTORY: Other than his bypass is significant for several cervical fusion surgeries. PHYSICAL EXAMINATION: GENERAL: Reveals a well-appearing white male, in no acute distress. VITAL SIGNS: Blood pressure 126/76, heart rate 72 and regular. HEENT: He has a Mallampati class 2 oropharyngeal configuration. Pharynx is clear, no erythema or exudate is noted. NECK: Reveals no JVD, adenopathy or bruits with a well healed carotid endarterectomy scar. CHEST: Clear. CARDIOVASCULAR: Reveals a regular rate and rhythm without murmur, S3 or S4. ABDOMEN: Soft, supple without mass, organomegaly or tenderness. Bowel sounds are positive in all 4 quadrants and no bruits are noted. ASSESSMENT AND PLAN: For surveillance due to past sessile large villous adenoma in the rectum. He will undergo flexible sigmoidoscopy. After discussion, he is not comfortable with giving himself an enema at home, so he was instructed in a clear liquid diet the day before his procedure and we will plan Fleet's enema on arrival to endoscopy. He was advised to abstain from Plavix and aspirin, 1 week prior to the procedure and avoid nonsteroidals for at least 48 hours. Prep instructions were given, questions were answered and the procedure was set up. 25 minutes of personal mudg-[id number] time was performed by myself and another 10 minutes staff time in setting of the procedure and going over instructions. I thank you for the referral of this pleasant gentleman. Sincerely, Job ID: [id number] DocumentID: [id number] Dictated Date: 05/06/2017 13:38:30 Rug Inspector Helper Date: 05/06/2017 14:22:24 Dictated By: KESHAV CHISHOLM MD <Dictated by KESHAV CHISHOLM MD> <Electronically signed by KESHAV CHISHOLM MD> 05/09/17 1217
== END 2017-05-23 09:00 | disposition home or self-care (01) ==
LOC: ENDO 06:49
PROVIDERS: ATTEND Internal Medicine
DX: Z09 Encounter for follow-up examination after completed treatment for conditions other than malignant neoplasm (principal); D12.8 Benign neoplasm of rectum; Z86.010 Personal history of colon polyps; I25.10 Atherosclerotic heart disease of native coronary artery without angina pectoris; I10 Essential (primary) hypertension; E78.5 Hyperlipidemia, unspecified; Z95.1 Presence of aortocoronary bypass graft; Z79.02 Long term (current) use of antithrombotics/antiplatelets; Z79.82 Long term (current) use of aspirin; Z98.1 Arthrodesis status

== ENCOUNTER → 2017-07-09 | Outpatient (CLI) | payer MEDICARE ==
[~2017-07-09] MED LIST changes: +RT-ALBUTEROL SULF 2.5 MG/3 ML PRE-MIX VIAL INH ONE; +RT-ALBUTEROL SULF 2.5 MG/3 ML PRE-MIX VIAL ONE
--- NOTE | 2017-07-09 08:54 | Diagnostic Imaging Report ---
INDICATION: HYPOXEMIA - COPD COMPARISON: 07/31/2015 FINDINGS: Frontal and lateral views of the chest demonstrate normal heart size and pulmonary vascularity. The lungs are clear. There are no signs of infiltrate, pleural effusions or pneumothoraces. The visualized osseous structures show no acute abnormalities. Sternotomy wires are noted. IMPRESSION: 1. No acute process. No signs of infiltrates, effusions or pneumothoraces. Dictated by: Dictated on workstation # [id number]
== END ==
LOC: RT 07:07
PROVIDERS: ATTEND Family Medicine
DX: R09.02 Hypoxemia (principal); J44.9 Chronic obstructive pulmonary disease, unspecified
CPT/HCPCS: 71046; 94060; 94726; 94729

== ENCOUNTER → 2017-07-22 | Outpatient (CLI) | payer MEDICARE ==
[~2017-07-22] MED LIST changes: -RT-ALBUTEROL SULF 2.5 MG/3 ML PRE-MIX VIAL INH ONE; -RT-ALBUTEROL SULF 2.5 MG/3 ML PRE-MIX VIAL ONE
--- NOTE | 2017-07-22 15:21 | Diagnostic Imaging Report ---
INDICATION: Fall with pain in left shoulder. TIME OF EXAM: 12:05 PM FINDINGS: Three views of the left shoulder demonstrate glenohumeral degenerative change with joint space narrowing and some spurring of the glenoid and humeral head. The acromioclavicular alignment is normal. Acromiohumeral space is normal. No fracture or dislocation is seen. IMPRESSION: Degenerative changes of the left shoulder. No acute bony abnormality is detected. Dictated by: Dictated on workstation # [id number]
--- NOTE | 2017-07-22 15:23 | Diagnostic Imaging Report ---
EXAMINATION: Left elbow, three views. COMPARISON: None. HISTORY: 72-year-old male, fall. Left elbow pain. FINDINGS: There is degenerative type enthesopathy at the triceps tendon insertion and attachment site of the common extensor tendons. There is no identified elbow joint effusion. There is no acute fracture. There is no elbow joint dislocation. There is no identified radiopaque foreign body. IMPRESSION: No acute bony abnormality of the left elbow. Dictated by: Dictated on workstation # [id number]
== END ==
LOC: RAD 11:31
PROVIDERS: ATTEND Family Medicine
DX: M19.012 Primary osteoarthritis, left shoulder (principal); M25.522 Pain in left elbow; W19.XXXA Unspecified fall, initial encounter
CPT/HCPCS: 73030; 73080

== ENCOUNTER 2017-09-09 05:59 | Outpatient (CLI) | payer MEDICARE ==
[~2017-09-09] VITALS: Ht 177.8 cm; Wt 90.7 kg
== END 2017-09-09 10:11 ==
LOC: PREOP 05:59
PROVIDERS: ATTEND Internal Medicine
DX: Z01.818 Encounter for other preprocedural examination (principal)

== ENCOUNTER 2017-09-12 08:30 | Day surgery (SDC) | payer MEDICARE ==
--- NOTE | 2017-09-09 14:37 | HISTORY AND PHYSICAL ---
DATE OF SERVICE: FLEXIBLE SIGMOIDOSCOPY HISTORY AND PHYSICAL DATE OF ADMISSION: 09/12/2017. REFERRING PHYSICIAN: Leora Hollis MD HISTORY OF PRESENT ILLNESS: The patient is a pleasant 72-year-old white male who had a large serrated adenoma noted in the rectum on colonoscopy that was read out as a serrated adenoma. Due to the significant size, he is return for flexible sigmoidoscopy for surveillance. He has noted no bowel habit change. He has not had any blood in the stool. Denies tenesmus or abdominal pain. He has undergone rather extensive right rotator cuff surgery for large complete tear. It has been 6 weeks, he is still in a sling and does report some left shoulder pain likely due to rotator cuff tendinitis on that side as well, although not as severe as the right side. He has had no other health changes in the last four months. PAST MEDICAL HISTORY: Significant for the above bowel history. He has a history of coronary artery disease. Underwent cardiac bypass surgery in 2000 and left carotid endarterectomy in 2014. His surgeon had recommended that he continue on antiplatelet therapy. He has been taken off of aspirin, but still takes Plavix 75 mg daily. He has history of hypertension and hyperlipidemia, been under good control. He reports no known medical allergies. PHYSICAL EXAMINATION: GENERAL: Reveals a pleasant, well-appearing white male wearing right-sided sling. He did not appear to be in acute distress. VITAL SIGNS: His blood pressure was 116/68. Weight at 206.2 pounds, is stable. HEENT: Reveals a Mallampati class 2 oropharyngeal configuration without evidence for exudate. CHEST: Clear. CARDIOVASCULAR: Regular rate and rhythm without murmur, S3 or S4. NECK: Reveals an soft pitched low left carotid bruit. No bruits are noted on the right. No adenopathy is noted. ABDOMEN: Soft, supple without mass, organomegaly or tenderness. EXTREMITIES: Reveal no cyanosis, clubbing or edema. ASSESSMENT AND PLAN: For surveillance of a polyp that was last read out as a serrated adenoma. Due to its large size, he is set up for flexible sigmoidoscopy. Because of his rotator cuff issues, we will have nursing staff give him a Fleet enema on arrival scheduled for the . He is to discontinue Plavix and Meloxicam starting today. Job ID: [id number] DocumentID: [id number] Dictated Date: 09/08/2017 11:44:53 Food General Manager Date: 09/08/2017 12:13:53 Dictated By: KESHAV CHISHOLM MD
[~2017-09-12] VITALS: Ht 177.8 cm; Wt 90.7 kg
--- NOTE | 2017-09-12 09:31 | Pre-Op Note & Conscious Sedat ---
Pre-Operative Progress Note H&P Reviewed The H&P was reviewed, patient examined and no changes noted. Date H&P Reviewed: Sep 12, 2017 Time H&P Reviewed: 09:31 Conscious Sedation Pre-Proced ASA Class: 3 Airway Mallampati Classification: ([place] appropriate class) I. II. III, IV Lungs Heart ASA score ASA 1: a normal healthy patient ASA 2: a patient with a mild systemic disease (mid diabetes, controlled hypertension, obesity ASA 3: a patient with a severe systemic disease that limits activity (angina , COPD, prior Myocardial infarction) ASA 4: a patient with an incapacitating disease that is a constant threat to life (CHF, renal failure) ASA 5: a moribund patient not expected to survive 24 hrs. (ruptured aneurysm) ASA 6: a declared brain patient whose organs are being harvested. For emergent operations, add the letter E after the classification Grade 2 Sedation Plan: Analgesia, Amnesia, Plan communicated to team members, Discussed options with patient/fam, Discussed risks with patient/fam Note The patient is an appropriate candidate to undergo the planned procedure, sedation, and anesthesia. The patient immediately re-assessed prior to indication. KESHAV CHISHOLM MD Sep 12, 2017 09:31
[2017-09-12] MEDS ORDERED: D5 LR IV SOLUTION 1,000 ML IV STA (09:43)
[2017-09-12] MEDS ORDERED: MIDAZOLAM 2 MG/2 ML (VERSED) VIAL IVP PRN (09:45)
[2017-09-12] MEDS ORDERED: fentaNYL INJECTION 100 MCG/2 ML AMP IVP PRN (09:45)
[2017-09-12] MEDS ORDERED: FLEET ENEMA ADULT 1 EA BTL ONE (09:58)
[2017-09-12] MEDS ORDERED: D5 LR IV SOLUTION 1,000 ML IV ONE (10:07)
[2017-09-12] MEDS ORDERED: FLEET ENEMA ADULT 1 EA BTL PR ONE (10:15)
[2017-09-12 10:16] VITALS: BP 122/72
[2017-09-12] MEDS ORDERED: LIDOCAINE JELLY 2% (XYLOCAINE) 5 ML TUBE MM PRN (10:30)
[2017-09-12] MEDS ORDERED: fentaNYL INJECTION 100 MCG/2 ML AMP ONE (11:11)
[2017-09-12 11:50] VITALS: BP 137/79
[2017-09-12] MEDS ORDERED: LIDOCAINE JELLY 2% (XYLOCAINE) 5 ML TUBE ONE (11:54)
[2017-09-12 12:20] VITALS: BP 117/76
[2017-09-12 12:40] VITALS: BP 117/76
--- NOTE | 2017-09-12 16:49 | OPERATIVE REPORT ---
DATE OF SERVICE: FLEXIBLE SIGMOIDOSCOPY SUMMARY INDICATION FOR THE PROCEDURE: Followup of villous adenoma, located in the distal rectum. The patient remained on his back due to recent rotator cuff surgery. Rectal evaluation revealed there is still a remnant of the polyp along the posterior rectal wall. It was not firm nor was it fixed and nontender. No other abnormalities, no additional inspection of the anal canal or distal rectal vault. The colonoscope was inserted into the rectum and advanced to the mid sigmoid colon. Endoscopic findings were again compatible with villous adenoma of the distal rectum with no evidence for ulceration with a benign appearance and uniform mucosal integrity. It is extremely vascular. It was snared, ligated and submitted for histopathology. Post-procedure rectal examination revealed no evidence for remaining tissue. The field was too bloody to fully evaluate for total visual removal of the polyp. There did not appear to be any ongoing blood loss after lavage of the site on visualization I will plan on having him come back to the office in 2 months for repeat digital rectal evaluation and if there are any suspicion for remaining polyp tissue, will have him return for repeat flexible sigmoidoscopy. The patient was advised to remain off of Plavix for another week and then resume and discussed the importance of taking it easy today, avoiding any lifting, straining or any long car rides. The above recommendations are assuming continued benign pathology report. I thank you for the referral of this pleasant gentleman. Job ID: [id number] DocumentID: [id number] Dictated Date: 09/12/2017 12:14:32 Marine Firer Date: 09/12/2017 16:49:09 Dictated By: KESHAV CHISHOLM MD [facility]
== END 2017-09-12 12:40 | disposition home or self-care (01) ==
LOC: ENDO 08:30
PROVIDERS: ATTEND Internal Medicine
DX: D12.8 Benign neoplasm of rectum (principal); I25.10 Atherosclerotic heart disease of native coronary artery without angina pectoris; I10 Essential (primary) hypertension; Z95.1 Presence of aortocoronary bypass graft; Z79.02 Long term (current) use of antithrombotics/antiplatelets; Z79.82 Long term (current) use of aspirin

== ENCOUNTER 2017-09-12 19:12 | Day surgery (SDC) | payer MEDICARE ==
[~2017-09-12] VITALS: Ht 177.8 cm; Wt 91.2 kg
--- OUTSIDE RECORDS SUMMARY | 2017-09-12 19:16 | XMS REPORT | CCD ---
Author Author [facility] Organization [facility] Address [address] [place] [address] Phone Care Team Providers Care Gas Inspector Name Role Phone PP Unavailable CCM Unavailable Summary Purpose Interface Exchange Insurance Providers Payer name Policy type / Coverage type Covered alliance party ID Effective Begin Date Effective End Date WPS Medicare Part B Medicare Part B [id number] 2017 Unknown [facility] Medicare Part B [id number] 2017 Unknown Family history Father Diagnosis Age At Onset Heart Attack Unknown Social History Social History Element Codes Description Effective Dates Marital status Unknown 03/14/2017 Number of children Unknown 2 03/14/[address]: 5157362 Former smoker Quit 11/03/00; smoke 1/2 pack/day x15 years 03/14/[address]: 523415048 Never drinks alcohol 03/14/2017 Allergies, Adverse Reactions, Alerts Allergies, Adverse Reactions, Alerts data not found Past Medical History Illness Codes Condition Status Onset Date Resolved Date Impacted cerumen, bilateral ICD-9: 380.4 ICD-10: H61.23 Active 03/14/2017 Unknown 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 ICD-10: I25.10 Active 03/14/2017 Unknown Chronic pain syndrome ICD-9: 338.4 ICD-10: G89.4 Active 03/14/2017 Unknown Mixed hyperlipidemia ICD-9: 272.2 ICD-10: E78.2 Active 03/14/2017 Unknown Personal history of other diseases of the circulatory system ICD-9: V12.59 ICD-10: Z86.79 Active 03/14/2017 Unknown Presbycusis, 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 Active 03/14/2017 Unknown Problems Condition Codes Effective Dates Condition Status Impacted cerumen, bilateral ICD-9: 380.4 ICD-10: H61.23 03/14/2017 Active 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 ICD-10: I25.10 03/14/2017 Active Chronic pain syndrome ICD-9: 338.4 ICD-10: G89.4 03/14/2017 Active Mixed hyperlipidemia ICD-9: 272.2 ICD-10: E78.2 03/14/2017 Active Personal history of other diseases of the circulatory system ICD-9: V12.59 ICD-10: Z86.79 03/14/2017 Active Presbycusis, 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 03/14/2017 Active Medications Medication Codes Instructions Start Date Stop Date Status Fill Instructions meloxicam 15 mg tablet RxNorm: 134200 1 Tablet(s) PO daily No Start Date Active potassium chloride ER 10 mEq tablet,extended release RxNorm: 083374 1 Tablet(s) PO daily No Start Date Active Pamelor 10 mg capsule RxNorm: 599831 1 Capsule(s) PO daily No Start Date Active gabapentin 300 mg capsule RxNorm: 413250 6 Capsule(s) PO daily No Start Date Active cyclobenzaprine 5 mg tablet RxNorm: 199128 1 Tablet(s) PO as needed No Start Date Active hydrocodone 5 mg-acetaminophen 325 mg tablet RxNorm: 350091 1 Tablet(s) PO daily No Start Date Active furosemide 40 mg tablet RxNorm: 111840 1 Tablet(s) PO daily No Start Date Active atorvastatin 40 mg tablet RxNorm: 736898 1 Tablet(s) PO QHS No Start Date Active diclofenac 1 % topical gel RxNorm: 350369 1 Gram(s) TOP as needed No Start Date Active clopidogrel 75 mg tablet RxNorm: 257070 1 Tablet(s) PO daily No Start Date Active Medication Administered No Medication Administered data Immunizations No Immunization data Assessments Condition Codes Effective Dates Impacted cerumen, bilateral ICD-10: H61.23 ICD-9: 380.4 03/17/2017 Mixed hyperlipidemia ICD-10: E78.2 ICD-9: 272.2 03/14/2017 Atherosclerotic heart disease of [place] coronary artery without angina pectoris ICD-10: I25.10 ICD-9: 414.00 03/14/2017 Chronic pain syndrome ICD-10: G89.4 ICD-9: 338.4 03/14/2017 Personal history of other diseases of the circulatory system ICD-10: Z86.79 ICD-9: V12.59 03/14/2017 Presbycusis, bilateral ICD-10: H91.13 ICD-9: 388.01 03/14/2017 Reason For Visit Reason For Visit Effective Dates Notes hyperlipidemia 03/14/2017 R ear Results No Results data Review of Systems System Result Effective Dates Constitutional No recent illness 2017 Constitutional No chills 03/14/2017 Constitutional fatigue 03/14/2017 Constitutional No fever 03/14/2017 Constitutional No insomnia 03/14/2017 Constitutional No malaise 03/14/2017 Eyes No vision change 03/14/2017 Ears/Nose/Throat/Neck No dizziness 2017 Ears/Nose/Throat/Neck No dysphagia 2017 Ears/Nose/Throat/Neck No headache 2017 Ears/Nose/Throat/Neck hearing loss 2017 Ears/Nose/Throat/Neck No nasal allergies 03/14/2017 Ears/Nose/Throat/Neck No sore throat Ears/Nose/Throat/Neck No sinus congestion 03/14/2017 Cardiovascular No dyspnea 03/14/2017 Cardiovascular No edema 03/14/2017 Cardiovascular No exercise intolerance Cardiovascular No fatigue 03/14/2017 Cardiovascular No near-syncope/dizziness 03/14/2017 Respiratory No chest tightness 2017 Respiratory No cough 03/14/2017 Respiratory No dyspnea 03/14/2017 Respiratory No pedal edema 03/14/2017 Gastrointestinal No abdominal pain 2017 Gastrointestinal No constipation 2017 Gastrointestinal No diarrhea 03/14/2017 Gastrointestinal No gastroesophageal reflux 03/14/2017 Gastrointestinal No nausea 03/14/2017 Gastrointestinal No vomiting 03/14/2017 Genitourinary/Nephrology No dysuria 03/14 Genitourinary/Nephrology No nocturia Genitourinary/Nephrology No urinary incontinence 03/14/2017 Musculoskeletal No stiffness 03/14/2017 Musculoskeletal No swelling 03/14/2017 Musculoskeletal No muscle weakness 2017 Musculoskeletal No myalgias 03/14/2017 Dermatologic No rash 03/14/2017 Dermatologic No sores 03/14/2017 Neurologic No dizziness 03/14/2017 Neurologic No headache 03/14/2017 Neurologic No neck pain 03/14/2017 Neurologic No syncope 03/14/2017 Psychiatric No anxiety 03/14/2017 Psychiatric No depression 03/14/2017 Physical Exam Exam Name System Name Item Name Status Result Effective Dates Notes Full Exam - General 1994 Constitutional general appearance Development: well developed 03/14/2017 None Full Exam - General 1994 Constitutional general appearance Development: appears stated age 0103/14/2017 None Full Exam - General 1994 Constitutional general appearance Hygiene/Attention to Grooming: good hygiene 03/14/2017 None Full Exam - General 1994 Eyes conjunctiva /eyelids Overall: conjunctiva clear 03/14/2017 None Full Exam - General 1994 Eyes conjunctiva /eyelids Overall: cornea clear 03/14/2017 None Full Exam - General 1994 Eyes conjunctiva /eyelids Overall: eyelids normal 03/14/2017 None Full Exam - General 1994 Eyes pupils and irises Overall: pupils equal, round, reactive to light and accomodation 03/14/2017 None Full Exam - General 1994 Ears/Nose/Throat lips/teeth/gingiva Overall: benign lips 03/14/2017 None Full Exam - General 1994 Ears/Nose/Throat lips/teeth/gingiva Overall: normal dentition 03/14/2017 None Full Exam - General 1994 Ears/Nose/Throat oral cavity/pharynx/larynx Overall: oral mucosa clear 03/14/2017 None Full Exam - General 1994 Ears/Nose/Throat oral cavity/pharynx/larynx Overall: oropharyngeal mucosa clear 03/14/2017 None Full Exam - General 1994 Ears/Nose/Throat oral cavity/pharynx/larynx Overall: hypopharynx benign 03/14/2017 None Full Exam - General 1994 Ears/Nose/Throat oral cavity/pharynx/larynx Overall: no masses 03/14/2017 None Full Exam - General 1994 Respiratory auscultation Overall: breath sounds clear bilaterally 03/14/2017 None Full Exam - General 1994 Respiratory respiratory effort/rhythm Overall: no retractions 03/14/2017 None Full Exam - General 1994 Respiratory respiratory effort/rhythm Overall: normal rate 03/14/2017 None Full Exam - General 1994 Cardiovascular extremities Overall: no clubbing 03/14/2017 None Full Exam - General 1994 Cardiovascular auscultation of heart Overall: regular rate 03/14/2017 None Full Exam - General 1994 Cardiovascular auscultation of heart Overall: normal heart sounds 03/14/2017 None Full Exam - General 1994 Abdomen abdominal exam Overall: no tenderness 03/14/2017 None Full Exam - General 1994 Abdomen abdominal exam Overall: normal bowel sounds 03/14/2017 None Full Exam - General 1994 Lymphatic neck nodes Overall: anterior cervical chain benign 03/14/2017 None Full Exam - General 1994 Lymphatic neck nodes Overall: posterior cervical chain benign 03/14/2017 None Full Exam - General 1994 Musculoskeletal spine, ribs and pelvis Overall: spine benign 03/14/2017 None Full Exam - General 1994 Musculoskeletal spine, ribs and pelvis Overall: sacroiliac joint benign 03/14/2017 None Full Exam - General 1994 Musculoskeletal spine, ribs and pelvis Overall: good posture 03/14/2017 None Full Exam - General 1994 Musculoskeletal head and neck Overall: head atraumatic 03/14/2017 None Full Exam - General 1994 Musculoskeletal head and neck Overall: cervical spine benign 03/14/2017 None Full Exam - General 1994 Integument inspection of skin Overall: few scattered moles, no gross abnormalities 03/14/2017 None Full Exam - General 1994 Neurologic deep tendon reflexes Overall: deep tendon reflexes intact 03/14/2017 None Full Exam - General 1994 Neurologic cranial nerves Overall: crainial nerves 2 - 12 grossly intact 03/14/2017 None Full Exam - General 1994 Psychiatric orientation/consciousness Overall: oriented to person, place and time 03/14/2017 None Full Exam - General 1994 Psychiatric mood and affect Overall: normal mood and affect 03/14/2017 None Full Exam - General 1994 Ears/Nose/Throat otoscopic exam External auditory canal: complete cerumen impaction 03/14/2017 None Full Exam - General 1994 Cardiovascular inspection of carotid pulses Carotid pulse: carotid bruit 03/14/2017 None Procedures No Procedures data Vital Signs Date Vital 03/14/2017 Blood Pressure 1: 114/74 Code : 8480-6 BMI: 28.6 Code : 35277-7 Heart Rate 1 : 77 bpm Height: 5'10" SpO2: 97% Weight: 199 lbs Functional Status No Functional Status data History of Present Illness Symptom Name Status Result Effective Date Notes hyperlipidemia Onset and Resolution ongoing 03/14/2017 None hyperlipidemia Onset of Symptom during adulthood 03/14/2017 None hyperlipidemia Severity mild 03/14/2017 None hyperlipidemia Significant Family History cardiac disease 03/14/2017 None hyperlipidemia Significant Family History hyperlipidemia 03/14/2017 None hyperlipidemia Pertinent Findings Denies fever 03/14/2017 None hyperlipidemia Pertinent Findings Denies edema 03/14/2017 None hyperlipidemia Triggers no known associated factors 03/14/2017 None hyperlipidemia Alleviating Factors medication 03/14/2017 None hearing loss Location in the right ear 03/14/2017 None hearing loss Quality acute 03/14/2017 None hearing loss Onset and Resolution sudden in onset 03/14/2017 None hearing loss Onset of Symptom during adulthood 03/14/2017 None hearing loss Limitation on Activities does not limit activities 03/14/2017 None hearing loss Severity mild 03/14/2017 None hearing loss Pertinent Findings Denies family history 03/14/2017 None hearing loss Pertinent Findings Denies fever 03/14/2017 None hearing loss Pertinent Findings Denies cough 03/14/2017 None hearing loss Pertinent Findings Denies hoarseness 03/14/2017 None hearing loss Pertinent Findings Denies neck stiffness 03/14/2017 None hearing loss Pertinent Findings Denies memory loss 03/14/2017 None Advance Directives No Advance Directive data Encounters Encounter Performer Location Codes Date () Miscellaneous no charge Diagnosis: Impacted cerumen, bilateral[ICD10: H61.23] [facility] CPT-4: 93041 03/17/2017 ([id number]) OFFICE VISIT, NEW - LEVEL 4 Diagnosis: Mixed hyperlipidemia[ICD10: E78.2] Diagnosis: Chronic pain syndrome[ICD10: G89.4] Diagnosis: Presbycusis, bilateral[ICD10: H91.13] Diagnosis: Impacted cerumen, bilateral[ICD10: H61.23] Diagnosis: Atherosclerotic heart disease of [place] coronary artery without angina pectoris[ICD10: I25.10] Diagnosis: Personal history of other diseases of the circulatory system[ICD10: Z86.79] [facility] CPT-4: 96182 2017 Plan of Care Planned Activity Notes Codes Status Date Patient Education: Patient Medication Summary Completed 03/17/2017 Visit Plan: Hyperlipidemia - pt has been counseled about appropriate diet, exercise, and need for low fat food choices. I have discussed the need for the patient to take medications as prescribed. If the patient has negative side effects from the medication, they are to CALL the office and not abruptly discontinue the medication without discussion with a practitioner in the office. We will check labs in 3-6 months for follow up on the patient's chronic medical problem and to assure normal liver response to medications. Coronary artery disease and Carotid Artery disease - pt is to have his repeat Carotid artery ultrasound in March. Chronic Pain Syndrome - pt has chronic pain - has been maintained on current medications, has not sought out other medications, only uses PRN pain medications as directed, and understands the consequences of over-medication. Hearing loss with cerumen impaction - recommended pt to use mineral oil in his ears nightly x 3 nights and to come in on Friday for ear wax removal 03/14/2017 Appointment: [facility]Pt[facility]: [address] [place], [place] [id number] New Patient 03/14/2017 Patient Education: Patient Medication Summary Completed 03/14/2017 Instructions Comment . Hyperlipidemia - pt has been counseled about appropriate diet, exercise, and need for low fat food choices. I have discussed the need for the patient to take medications as prescribed. If the patient has negative side effects from the medication, they are to CALL the office and not abruptly discontinue the medication without discussion with a practitioner in the office. We will check labs in 3-6 months for follow up on the patient's chronic medical problem and to assure normal liver response to medications. Coronary artery disease and Carotid Artery disease - pt is to have his repeat Carotid artery ultrasound in March. Chronic Pain Syndrome - pt has chronic pain - has been maintained on current medications, has not sought out other medications, only uses PRN pain medications as directed, and understands the consequences of over-medication. Hearing loss with cerumen impaction - recommended pt to use mineral oil in his ears nightly x 3 nights and to come in on Friday for ear wax removal
--- OUTSIDE RECORDS SUMMARY | 2017-09-12 19:16 | XMS REPORT | CCD ---
Author Author [facility]ora Hollis Organization [facility] Address [address] [place] [address] Phone Care Team Providers Care Liquor Maker Name Role Phone PP Unavailable CCM Unavailable Summary Purpose Interface Exchange Insurance Providers Payer name Policy type / Coverage type Covered constitution party ID Effective Begin Date Effective End Date WPS Medicare Part B Medicare Part B [id number] 2017 Unknown [facility] Medicare Part B [id number] 2017 Unknown Family history Father Diagnosis Age At Onset Heart Attack Unknown Social History Social History Element Codes Description Effective Dates Marital status Unknown 03/14/2017 Number of children Unknown 2 03/14/[address]: 1195741 Former smoker Quit 11/03/00; smoke 1/2 pack/day x15 years 03/14/[address]: 373437674 Never drinks alcohol 03/14/2017 Allergies, Adverse Reactions, Alerts Allergies, Adverse Reactions, Alerts data not found Past Medical History Illness Codes Condition Status Onset Date Resolved Date Atherosclerotic heart disease of [place] coronary artery without angina pectoris ICD-9: 414.00 ICD-10: I25.10 Active 03/14/2017 Unknown Chronic pain syndrome ICD-9: 338.4 ICD-10: G89.4 Active 03/14/2017 Unknown Impacted cerumen, bilateral ICD-9: 380.4 ICD-10: H61.23 Active 03/14/2017 Unknown Mixed hyperlipidemia ICD-9: 272.2 ICD-10: E78.2 Active 03/14/2017 Unknown Personal history of other diseases of the circulatory system ICD-9: V12.59 ICD-10: Z86.79 Active 03/14/2017 Unknown Presbycusis, 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 Active 03/14/2017 Unknown Problems Condition Codes Effective Dates Condition Status Atherosclerotic heart disease of [place] coronary artery without angina pectoris ICD-9: 414.00 ICD-10: I25.10 03/14/2017 Active Chronic pain syndrome ICD-9: 338.4 ICD-10: G89.4 03/14/2017 Active Impacted cerumen, bilateral ICD-9: 380.4 ICD-10: H61.23 03/14/2017 Active Mixed hyperlipidemia ICD-9: 272.2 ICD-10: E78.2 03/14/2017 Active Personal history of other diseases of the circulatory system ICD-9: V12.59 ICD-10: Z86.79 03/14/2017 Active Presbycusis, 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 03/14/2017 Active Medications Medication Codes Instructions Start Date Stop Date Status Fill Instructions meloxicam 15 mg tablet RxNorm: 418558 1 Tablet(s) PO daily No Start Date Active potassium chloride ER 10 mEq tablet,extended release RxNorm: 817238 1 Tablet(s) PO daily No Start Date Active Pamelor 10 mg capsule RxNorm: 259777 1 Capsule(s) PO daily No Start Date Active gabapentin 300 mg capsule RxNorm: 046622 6 Capsule(s) PO daily No Start Date Active cyclobenzaprine 5 mg tablet RxNorm: 248625 1 Tablet(s) PO as needed No Start Date Active hydrocodone 5 mg-acetaminophen 325 mg tablet RxNorm: 203446 1 Tablet(s) PO daily No Start Date Active furosemide 40 mg tablet RxNorm: 863105 1 Tablet(s) PO daily No Start Date Active atorvastatin 40 mg tablet RxNorm: 269388 1 Tablet(s) PO QHS No Start Date Active diclofenac 1 % topical gel RxNorm: 243405 1 Gram(s) TOP as needed No Start Date Active clopidogrel 75 mg tablet RxNorm: 540078 1 Tablet(s) PO daily No Start Date Active Medication Administered No Medication Administered data Immunizations No Immunization data Assessments Condition Codes Effective Dates Mixed hyperlipidemia ICD-10: E78.2 ICD-9: 272.2 03/14/2017 Impacted cerumen, bilateral ICD-10: H61.23 ICD-9: 380.4 03/14/2017 Atherosclerotic heart disease of [place] coronary artery without angina pectoris ICD-10: I25.10 [...] Code : 8480-6 BMI: 28.6 Code : 62052-9 Heart Rate 1 : 77 bpm Height: [...] Encounters Encounter Performer Location Codes Date () OFFICE VISIT, [facility] - LEVEL 4 Diagnosis: Mixed hyperlipidemia[ICD10: E78.2] Diagnosis: Chronic pain syndrome[ICD10: G89.4] Diagnosis: Presbycusis, bilateral[ICD10: H91.13] Diagnosis: Impacted cerumen, bilateral[ICD10: H61.23] Diagnosis: Atherosclerotic heart disease of [place] coronary artery without angina pectoris[ICD10: I25.10] Diagnosis: Personal history of other diseases of the circulatory system[ICD10: Z86.79] [facility] MD, [facility] CPT-4: 68887 2017 Plan of Care Planned Activity Notes Codes Status Date Patient Education: Patient Medication Summary Completed 03/14/2017 Instructions No Instructions
--- OUTSIDE RECORDS SUMMARY | 2017-09-12 19:18 | XMS REPORT | Continuity of Care Document ---
Author Author [facility] Organization [facility] Address Unknown Phone Unavailable Allergies Active Description Code Type Severity Reaction Onset Reported/Identified Relationship to Patient Clinical Status Yes No Known Drug Allergies [id number] Drug Allergy Unknown N/A 08/14/2016 Medications There is no data. Problems Date Dx Coded Attending Type Code Diagnosis Diagnosed By 01/24/1304 MELISSA STEVENSON MD Ot M62.81 01/24/1304 MELISSA STEVENSON MD Ot R26.0 01/23/1599 ESTEBAN HOYOS, ANNA Arroyo Ot M75.41 IMPINGEMENT SYNDROME OF RIGHT SHOULDER 01/19/2014 CHRISTIAN HOYOS, CASSANDRA Painting Ot 715.35 01/19/2014 CHRISTIAN HOYOS, CASSANDRA Painting Ot 724.2 01/19/2014 CHRISTIAN HOYOS, CASSANDRA Painting Ot 724.6 01/31/2014 CHRISTIAN HOYOS, CASSANDRA Painting Ot 715.35 01/31/2014 CHRISTIAN HOYSO, CASSANDRA Painting Ot 724.2 01/31/2014 CHRISTIAN HOYOS, [...] 600.00 04/11/2014 Ot 733.90 04/11/2014 CARMEN DELVALLE SIZING MACHINE AND DRIER OPERATOR Ot 550.90 04/11/2014 CARMEN DELVALLE SIZING MACHINE AND DRIER OPERATOR Ot 562.10 04/11/2014 CARMEN DELVALLE SIZING MACHINE AND DRIER OPERATOR Ot 591 04/11/2014 CARMEN DELVALLE SIZING MACHINE AND DRIER OPERATOR Ot 592.1 04/11/2014 CHRISTIAN HOYOS, CASSANDRA D Ot 715.35 04/11/2014 CHRISTIAN HOYOS, CASSANDRA D Ot 724.2 04/11/2014 CHRISTIAN HOYOS, CASSANDRA D Ot 724.6 11/30/2014 Ot 562.10 11/30/2014 Ot 593.9 11/30/2014 Ot 733.90 11/30/2014 Ot 722.52 11/30/2014 Ot 794.8 11/30/2014 Ot 573.8 11/30/2014 Ot 600.00 11/30/2014 Ot 733.90 11/30/2014 CARMEN DELVALLE SIZING MACHINE AND DRIER OPERATOR Ot 550.90 11/30/2014 CARMEN DELVALLE SIZING MACHINE AND DRIER OPERATOR Ot 562.10 11/30/2014 CARMEN DELVALLE SIZING MACHINE AND DRIER OPERATOR Ot 591 11/30/2014 CARMEN DELVALLE SIZING MACHINE AND DRIER OPERATOR Ot 592.1 11/30/2014 CHRISTIAN HOYOS, CASSANDRA D Ot 715.35 11/30/2014 CHRISTIAN HOYOS, CASSANDRA D Ot 724.2 11/30/2014 CHRISTIAN HOYOS, CASSANDRA D Ot 724.6 12/22/2014 MELISSA STEVENSON MD Ot [...] STEVENSON MD Ot R26.0 ATAXIC GAIT 07/17/2015 DELMY HOYOS, SELENE Rascon Ot G54.1 LUMBOSACRAL PLEXUS DISORDERS 07/17/2015 SELENE BROCK MD Ot G54.1 LUMBOSACRAL PLEXUS DISORDERS 07/31/2015 KODI ESQUEDA APRN Ot I20.9 ANGINA PECTORIS, UNSPECIFIED 07/31/2015 KODI ESQUEDA SIZING MACHINE AND DRIER OPERATOR Ot R42 DIZZINESS AND GIDDINESS 07/31/2015 KODI ESQUEDA APRN Ot Z79.02 SENIOR LIVING (CURRENT) USE OF ANTITHROMBOTI 07/31/2015 KODI ESQUEDA SIZING MACHINE AND DRIER OPERATOR Ot Z87.891 PERSONAL HISTORY OF NICOTINE DEPENDENCE 08/02/2015 KODI ESQUEDA SIZING MACHINE AND DRIER OPERATOR Ot I20.9 ANGINA PECTORIS, UNSPECIFIED 08/02/2015 KODI ESQUEDA SIZING MACHINE AND DRIER OPERATOR Ot R42 DIZZINESS AND GIDDINESS 08/02/2015 KODI ESQUEDA SIZING MACHINE AND DRIER OPERATOR Ot Z79.02 SENIOR LIVING (CURRENT) USE OF ANTITHROMBOTI 08/02/2015 KODI ESQUEDA SIZING MACHINE AND DRIER OPERATOR Ot Z87.891 PERSONAL HISTORY OF NICOTINE DEPENDENCE 08/16/2015 SELENE BROCK MD Ot G54.1 LUMBOSACRAL PLEXUS DISORDERS 08/16/2015 SELENE BROCK MD Ot G54.1 LUMBOSACRAL PLEXUS DISORDERS 09/04/2015 MIRLANDE HOYOS, KULWANT Flores Ot M54.2 CERVICALGIA 09/11/2015 KESHAV CHISHOLM MD Ot Z01.818 ENCOUNTER FOR OTHER PREPROCEDURAL EXAMIN 09/11/2015 KESHAV CHISHOLM MD Ot Z12.11 ENCOUNTER FOR SCREENING FOR MALIGNANT NE 09/12/2015 KATHRINE HOYOS, KESHAV Painting Ot Z01.818 ENCOUNTER FOR OTHER PREPROCEDURAL EXAMIN 09/12/2015 KATHRINE HOYOS, KESHAV Painting Ot Z12.11 ENCOUNTER [...] BONE CARTILAGE DIS NOS 02/12/2016 Ot 722.52 LUMB/ LUMBOSAC DISC DEGEN 02/12/2016 Ot 794.8 ABN LIVER FUNCTION STUDY 02/12/2016 Ot 573.8 LIVER DISORDERS NEC 02/12/2016 Ot 600.00 HYPERTROPHY (BENIGN) OF PROSTATE W/O URI 02/12/2016 Ot 733.90 BONE CARTILAGE DIS NOS 02/12/2016 CARMEN DELVALLE SIZING MACHINE AND DRIER OPERATOR Ot 550.90 UNILAT INGUINAL HERNIA 02/12/2016 CARMEN DELVALLE SIZING MACHINE AND DRIER OPERATOR Ot 562.10 DIVERTICULOSIS COLON (W/O MENT OF HEMORR 02/12/2016 CARMEN DELVALLE SIZING MACHINE AND DRIER OPERATOR Ot 591 HYDRONEPHROSIS 02/12/2016 CARMEN DELVALLE SIZING MACHINE AND DRIER OPERATOR Ot 592.1 CALCULUS OF URETER 02/12/2016 CHRISTIAN HOYOS, CASSANDRA Painting Ot 715.35 LOC OSTEOARTH NOS-PELVIS 02/12/2016 CHIRSTIAN HOYOS, CASSANDRA Painting Ot 724.2 LUMBAGO 02/12/2016 CHRISTIAN HYOOS, CASSANDRA Painting Ot 724.6 DISORDERS OF SACRUM 02/12/2016 GRAHAM HOYOS, MELISSA Painting Ot I25.10 ATHSCL HEART DISEASE OF [place] CORONARY 02/12/2016 DELMY HOYOS, SELENE Rascon Ot [...] NONTOXIC SINGLE THYROID NODULE 03/18/2016 MARIO ROSADO MD Ot E04.1 NONTOXIC SINGLE THYROID NODULE 08/14/2016 KSEHAV CHISHOLM MD Ot D12.8 BENIGN NEOPLASM OF RECTUM 08/14/2016 KESHAV CHISHOLM MD Ot Z01.818 ENCOUNTER FOR OTHER PREPROCEDURAL EXAMIN 08/16/2016 KESHAV CHISHOLM MD Ot D12.8 BENIGN NEOPLASM OF RECTUM 08/16/2016 KESHAV CHISHOLM MD Ot E78.5 HYPERLIPIDEMIA, UNSPECIFIED 08/16/2016 KESHAV CHISHOLM MD Ot I10 ESSENTIAL (PRIMARY) HYPERTENSION 08/16/2016 KESHAV CHISHOLM MD Ot I25.10 ATHSCL HEART DISEASE OF [place] CORONARY 08/16/2016 KESHAV CHISHOLM MD Ot K57.30 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 AB 08/16/2016 KESHAV CHISHOLM MD Ot K63.5 POLYP OF COLON 08/16/2016 KESHAV CHISHOLM MD Ot Z79.02 LPTA (CURRENT) USE OF ANTITHROMBOTI 08/16/2016 KESHAV CHISHOLM MD Ot Z95.1 PRESENCE OF AORTOCORONARY BYPASS GRAFT 08/22/2016 SOLO MENDEZ Ot H53.8 OTHER VISUAL DISTURBANCES 08/22/2016 SOLO MENDEZ Ot R42 DIZZINESS AND GIDDINESS 08/23/2016 KESHAV CHISHOLM MD Ot D12.8 BENIGN NEOPLASM OF RECTUM 08/23/2016 KESHAV CHISHOLM MD Ot E78.5 HYPERLIPIDEMIA, UNSPECIFIED 08/23/2016 KESHAV CHISHOLM MD Ot I10 ESSENTIAL (PRIMARY) HYPERTENSION 08/23/2016 KESHAV CHISHOLM MD Ot I25.10 ATHSCL HEART DISEASE OF [place] CORONARY 08/23/2016 KESHAV CHISHOLM MD Ot K57.30 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 AB 08/23/2016 KESHAV CHISHOLM MD Ot K63.5 POLYP OF COLON 08/23/2016 KESHAV CHISHOLM MD Ot Z79.02 LPTA (CURRENT) USE OF ANTITHROMBOTI 08/23/2016 KESHAV CHISHOLM MD Ot Z95.1 PRESENCE OF AORTOCORONARY BYPASS GRAFT 08/24/2016 KESHAV CHISHOLM MD Ot D12.8 BENIGN NEOPLASM OF RECTUM 08/24/2016 KESHAV CHISHOLM MD Ot E78.5 HYPERLIPIDEMIA, UNSPECIFIED 08/24/2016 KESHAV CHISHOLM MD Ot I10 ESSENTIAL (PRIMARY) HYPERTENSION 08/24/2016 KESHAV CHISHOLM MD Ot I25.10 ATHSCL HEART DISEASE OF [place] CORONARY 08/24/2016 KESHAV CHISHOLM MD Ot K57.30 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 AB 08/24/2016 KESHAV CHISHOLM MD Ot K63.5 POLYP OF COLON 08/24/2016 KESHAV CHISHOLM MD Ot Z79.02 SENIOR LIVING (CURRENT) USE OF ANTITHROMBOTI 08/24/2016 KESHAV CHISHOLM MD Ot Z95.1 PRESENCE OF AORTOCORONARY BYPASS GRAFT 08/29/2016 CROW MORENO, SOLO L Ot R42 DIZZINESS AND GIDDINESS 08/29/2016 JACQUELINE MENDEZEN L Ot R51 HEADACHE 08/29/2016 JACQUELINE MENDEZEN L Ot R53.83 OTHER FATIGUE 08/29/2016 CROW MORENO, SOLO L Ot R93.0 ABNORMAL FINDINGS ON DX IMAGING OF SKULL 09/06/2016 JACQUELINE MENDEZEN L Ot R42 DIZZINESS AND GIDDINESS 09/06/2016 CROW MORENO, SOLO L Ot R51 HEADACHE 09/06/2016 CROW MORENO, SOLO L Ot R53.83 OTHER FATIGUE 09/06/2016 CROW MORENO, SOLO L Ot R93.0 ABNORMAL FINDINGS ON DX IMAGING OF SKULL 09/12/2016 JACQUELINE MENDEZEN L Ot H53.8 OTHER VISUAL DISTURBANCES 09/12/2016 JACQUELINE MENDEZEN L Ot R42 DIZZINESS AND GIDDINESS 09/20/2016 JACQUELINE MENDEZEN L Ot H53.8 OTHER VISUAL DISTURBANCES 09/20/2016 JACQUELINE MENDEZEN L Ot R42 DIZZINESS AND GIDDINESS 11/07/2016 KULWANT NOGUEIRA MD Ot M54.2 CERVICALGIA 11/23/2016 KULWANT NOGUEIRA MD Ot M54.2 CERVICALGIA 11/26/2016 KULWANT NOGUEIRA MD E Ot M54.2 CERVICALGIA 11/27/2016 KULWANT NOGUEIRA MD E Ot M54.2 CERVICALGIA 12/06/2016 KULWANT NOGUEIRA MD E Ot M54.2 CERVICALGIA 01/17/2017 KULWANT NOGUEIRA MD E Ot M54.2 CERVICALGIA 01/23/2017 KULWANT NOGUEIRA MD E Ot M54.2 CERVICALGIA 02/04/2017 KULWANT NOGUEIRA MD E Ot M54.2 CERVICALGIA 02/24/2017 KULWANT NOGUEIRA MD Ot M54.2 CERVICALGIA 03/24/2017 ESTEBAN HOYOS, ANNA Arroyo Ot M75.41 IMPINGEMENT SYNDROME OF RIGHT SHOULDER 03/27/2017 ANNA ORELLANA MD Ot M75.41 IMPINGEMENT SYNDROME OF RIGHT SHOULDER 05/07/2017 ESTEBAN HOYOS, ANNA Arroyo Ot M75.41 IMPINGEMENT SYNDROME OF RIGHT SHOULDER 05/08/2017 ANNA ORELLANA MD Ot M75.41 IMPINGEMENT SYNDROME OF RIGHT SHOULDER 05/08/2017 ESTEBAN HOYOS, ANNA Arroyo Ot M75.41 IMPINGEMENT SYNDROME OF RIGHT SHOULDER 05/09/2017 ESTEBAN HOYOS, ANNA Arroyo Ot M75.41 IMPINGEMENT SYNDROME OF RIGHT SHOULDER 05/13/2017 ESTEBAN HOYOS, ANNA Arroyo Ot M75.41 IMPINGEMENT SYNDROME OF RIGHT SHOULDER 05/16/2017 KATHRINE HOYOS, KESHAV Painting Ot K62.1 RECTAL POLYP 05/16/2017 KATHRINE HOYOS, KESHAV Painting Ot Z01.818 ENCOUNTER FOR OTHER PREPROCEDURAL EXAMIN 05/16/2017 KESHAV CHISHOLM MD Ot K62.1 RECTAL POLYP 05/16/2017 KATHRINE HOYOS, KESHAV Painting Ot Z01.818 ENCOUNTER FOR OTHER PREPROCEDURAL EXAMIN 05/16/2017 ELSIE HOYOS, KYLIE Rascon Ot G47.33 OBSTRUCTIVE SLEEP APNEA (ADULT) (PEDIATR 05/16/2017 Ot 562.10 DIVERTICULOSIS COLON (W/O MENT OF HEMORR 05/16/2017 Ot 593.9 RENAL URETERAL DIS NOS 05/16/2017 Ot 733.90 BONE CARTILAGE DIS NOS 05/16/2017 Ot 722.52 LUMB/ LUMBOSAC DISC DEGEN 05/16/2017 Ot 794.8 ABN LIVER FUNCTION STUDY 05/16/2017 Ot 573.8 LIVER DISORDERS NEC 05/16/2017 Ot 600.00 HYPERTROPHY (BENIGN) OF PROSTATE W/O URI 05/16/2017 Ot 733.90 BONE CARTILAGE DIS NOS 05/16/2017 CARMEN DELVALLE N SIZING MACHINE AND DRIER OPERATOR Ot 550.90 UNILAT INGUINAL HERNIA 05/16/2017 CARMEN DELVALLE SIZING MACHINE AND DRIER OPERATOR Ot 562.10 DIVERTICULOSIS COLON (W/O MENT OF HEMORR 05/16/2017 CARMEN DELVALLE SIZING MACHINE AND DRIER OPERATOR Ot 591 HYDRONEPHROSIS 05/16/2017 CARMEN DELVALLE SIZING MACHINE AND DRIER OPERATOR Ot 592.1 CALCULUS OF URETER 05/16/2017 CHRISTIAN HOYOS, CASSANDRA Painting Ot 715.35 LOC OSTEOARTH NOS-PELVIS 05/16/2017 CHRISTIAN HOYOS, CASSANDRA Painting Ot 724.2 LUMBAGO 05/16/2017 CHRISTIAN HOYOS, CASSANDRA Painting Ot 724.6 DISORDERS OF SACRUM 05/16/2017 GRAHAM HOYOS, MELISSA Painting Ot I25.10 ATHSCL HEART DISEASE OF [place] CORONARY 05/16/2017 DELMY HOYOS, SELENE A Ot G54.1 LUMBOSACRAL PLEXUS DISORDERS 05/16/2017 KESHAV CHISHOLM MD Ot D12.8 BENIGN NEOPLASM OF RECTUM 05/16/2017 KESHAV CHISHOLM MD Ot K57.30 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 AB 05/16/2017 KESHAV CHISHOLM MD Ot K63.5 POLYP OF COLON 05/16/2017 KESHAV CHISHOLM MD Ot Z12.11 ENCOUNTER FOR SCREENING FOR MALIGNANT NE 05/16/2017 ALONZO HOYOS, MARIO Painting Ot E04.1 NONTOXIC SINGLE THYROID NODULE 05/16/2017 CHALINO MENDEZTCHEN L Ot R42 DIZZINESS AND GIDDINESS 05/16/2017 JACQUELINE MENDEZEN Prashant Ot R51 HEADACHE 05/16/2017 JACQUELINE MENDEZEN L Ot R53.83 OTHER FATIGUE 05/16/2017 SOLO MENDEZ Ot R93.0 ABNORMAL FINDINGS ON DX IMAGING OF SKULL 05/16/2017 SOLO MENDEZ Ot H53.8 OTHER VISUAL DISTURBANCES 05/16/2017 CHALINO MENDEZTCHEN L Ot R42 DIZZINESS AND GIDDINESS 05/16/2017 ELSIE HOYOS, KYLIE Rascon Ot G47.33 OBSTRUCTIVE SLEEP APNEA (ADULT) (PEDIATR 05/16/2017 KESHAV CHISHOLM MD Ot K62.1 RECTAL POLYP 05/16/2017 KESHAV CHISHOLM MD Ot Z01.818 ENCOUNTER FOR OTHER PREPROCEDURAL EXAMIN 05/16/2017 ESTEBAN HOYOS, ANNA H Ot M75.41 IMPINGEMENT SYNDROME OF RIGHT SHOULDER 05/19/2017 KESHAV CHISHOLM MD Ot K62.1 RECTAL POLYP 05/19/2017 KESHAV CHISHOLM MD Ot Z01.818 ENCOUNTER FOR OTHER PREPROCEDURAL EXAMIN 05/22/2017 KYLIE ZIMMERMAN MD Ot G47.10 HYPERSOMNIA, UNSPECIFIED 05/22/2017 KYLIE ZIMMERMAN MD Ot G47.36 SLEEP RELATED HYPOVENTILATION IN CONDITI 05/23/2017 KESHAV CHISHOLM MD Ot D12.8 BENIGN NEOPLASM OF RECTUM 05/23/2017 KESHAV CHISHOLM MD Ot E78.5 HYPERLIPIDEMIA, UNSPECIFIED 05/23/2017 KESHAV CHISHOLM MD Ot I10 ESSENTIAL (PRIMARY) HYPERTENSION 05/23/2017 KESHAV CHISHOLM MD Ot I25.10 ATHSCL HEART DISEASE OF [place] CORONARY 05/23/2017 KESHAV CHISHOLM MD Ot Z09 ENCNTR FOR F/U EXAM AFT TRTMT FOR COND O 05/23/2017 KESHAV CHISHOLM MD Ot Z79.02 LPTA (CURRENT) USE OF ANTITHROMBOTI 05/23/2017 KESHAV CHISHOLM MD Ot Z79.82 SENIOR LIVING (CURRENT) USE OF ASPIRIN 05/23/2017 KESHAV CHISHOLM MD Ot Z86.010 PERSONAL HISTORY OF COLONIC POLYPS 05/23/2017 KESHAV CHISHOLM MD Ot Z95.1 PRESENCE OF AORTOCORONARY BYPASS GRAFT 05/23/2017 KESHAV CHISHOLM MD Ot Z98.1 ARTHRODESIS STATUS 05/27/2017 KESHAV CHISHOLM MD Ot D12.8 BENIGN NEOPLASM OF RECTUM 05/27/2017 KESHAV CHISHOLM MD Ot E78.5 HYPERLIPIDEMIA, UNSPECIFIED 05/27/2017 EKSHAV CHISHOLM MD Ot I10 ESSENTIAL (PRIMARY) HYPERTENSION 05/27/2017 KESHAV CHISHOLM MD Ot I25.10 ATHSCL HEART DISEASE OF [place] CORONARY 05/27/2017 KESHAV CHISHOLM MD Ot Z09 ENCNTR FOR F/U EXAM AFT TRTMT FOR COND O 05/27/2017 KESHAV CHISHOLM MD Ot Z79.02 LPTA (CURRENT) USE OF ANTITHROMBOTI 05/27/2017 KESHAV CHISHOLM MD Ot Z79.82 SENIOR LIVING (CURRENT) USE OF ASPIRIN 05/27/2017 KESHAV CHISHOLM MD Ot Z86.010 PERSONAL HISTORY OF COLONIC POLYPS 05/27/2017 KESHAV CHISHOLM MD Ot Z95.1 PRESENCE OF AORTOCORONARY BYPASS GRAFT 05/27/2017 KESHAV CHISHOLM MD Ot Z98.1 ARTHRODESIS STATUS 05/31/2017 KESHAV CHISHOLM MD Ot D12.8 BENIGN NEOPLASM OF RECTUM 05/31/2017 KESHAV CHISHOLM MD Ot E78.5 HYPERLIPIDEMIA, UNSPECIFIED 05/31/2017 KESHAV CHISHOLM MD Ot I10 ESSENTIAL (PRIMARY) HYPERTENSION 05/31/2017 KESHAV CHISHOLM MD Ot I25.10 ATHSCL HEART DISEASE OF [place] CORONARY 05/31/2017 KESHAV CHISHOLM MD Ot Z09 ENCNTR FOR F/U EXAM AFT TRTMT FOR COND O 05/31/2017 KESHAV CHISHOLM MD Ot Z79.02 SENIOR LIVING (CURRENT) USE OF ANTITHROMBOTI 05/31/2017 KESHAV CHISHOLM MD Ot Z79.82 LPTA (CURRENT) USE OF ASPIRIN 05/31/2017 KESHAV CHISHOLM MD Ot Z86.010 PERSONAL HISTORY OF COLONIC POLYPS 05/31/2017 KATHRINE HOYOS, KESHAV Painting Ot Z95.1 PRESENCE OF AORTOCORONARY BYPASS GRAFT 05/31/2017 KESHAV CHISHOLM MD Ot Z98.1 ARTHRODESIS STATUS 06/03/2017 KESHAV CHISHOLM MD Ot D12.8 BENIGN NEOPLASM OF RECTUM 06/03/2017 KESHAV CHISHOLM MD Ot E78.5 HYPERLIPIDEMIA, UNSPECIFIED 06/03/2017 KESHAV CHISHOLM MD Ot I10 ESSENTIAL (PRIMARY) HYPERTENSION 06/03/2017 KESHAV CHISHOLM MD Ot I25.10 ATHSCL HEART DISEASE OF [place] CORONARY 06/03/2017 KESHAV CHISHOLM MD Ot Z09 ENCNTR FOR F/U EXAM AFT TRTMT FOR COND O 06/03/2017 KESHAV CHISHOLM MD Ot Z79.02 SENIOR LIVING (CURRENT) USE OF ANTITHROMBOTI 06/03/2017 KESHAV CHISHOLM MD Ot Z79.82 SENIOR LIVING (CURRENT) USE OF ASPIRIN 06/03/2017 KESHAV CHISHOLM MD Ot Z86.010 PERSONAL HISTORY OF COLONIC POLYPS 06/03/2017 KESHAV CHISHOLM MD Ot Z95.1 PRESENCE OF AORTOCORONARY BYPASS GRAFT 06/03/2017 KESHAV CHISHOLM MD Ot Z98.1 ARTHRODESIS STATUS 06/09/2017 KESHAV CHISHOLM MD Ot D12.8 BENIGN NEOPLASM OF RECTUM 06/09/2017 KESHAV CHISHOLM MD Ot E78.5 HYPERLIPIDEMIA, UNSPECIFIED 06/09/2017 KESHAV CHISHOLM MD Ot I10 ESSENTIAL (PRIMARY) HYPERTENSION 06/09/2017 KESHAV CHISHOLM MD Ot I25.10 ATHSCL HEART DISEASE OF [place] CORONARY 06/09/2017 KESHAV CHISHOLM MD Ot Z09 ENCNTR FOR F/U EXAM AFT TRTMT FOR COND O 06/09/2017 KESHAV CHISHOLM MD Ot Z79.02 SENIOR LIVING (CURRENT) USE OF ANTITHROMBOTI 06/09/2017 KESHAV CHISHOLM MD Ot Z79.82 LPTA (CURRENT) USE OF ASPIRIN 06/09/2017 KESHAV CHISHOLM MD Ot Z86.010 PERSONAL HISTORY OF COLONIC POLYPS 06/09/2017 KESHAV CHISHOLM MD Ot Z95.1 PRESENCE OF AORTOCORONARY BYPASS GRAFT 06/09/2017 KESHAV CHISHOLM MD Ot Z98.1 ARTHRODESIS STATUS 06/11/2017 KESHAV CHISHOLM MD Ot D12.8 BENIGN NEOPLASM OF RECTUM 06/11/2017 KESHAV CHISHOLM MD Ot E78.5 HYPERLIPIDEMIA, UNSPECIFIED 06/11/2017 KSEHAV CHISHOLM MD, Ot I10 ESSENTIAL (PRIMARY) HYPERTENSION 06/11/2017 KESHAV CHISHOLM MD, Ot I25.10 ATHSCL HEART DISEASE OF [place] CORONARY 06/11/2017 KESHAV CHISHOLM MD Ot Z09 ENCNTR FOR F/U EXAM AFT TRTMT FOR COND O 06/11/2017 KESHAV CHISHOLM MD Ot Z79.02 LPTA (CURRENT) USE OF ANTITHROMBOTI 06/11/2017 KESHAV CHISHOLM MD, Ot Z79.82 LPTA (CURRENT) USE OF ASPIRIN 06/11/2017 KESHAV CHISHOLM MD Ot Z86.010 PERSONAL HISTORY OF COLONIC POLYPS 06/11/2017 KESHAV CHISHOLM MD Ot Z95.1 PRESENCE OF AORTOCORONARY BYPASS GRAFT 06/11/2017 KESHAV CHISHOLM MD Ot Z98.1 ARTHRODESIS STATUS 06/16/2017 ESTEBAN HOYOS, ANNA Arroyo Ot M75.41 IMPINGEMENT SYNDROME OF RIGHT SHOULDER 07/23/2017 KYLIE ZIMMERMAN MD Ot M19.012 PRIMARY OSTEOARTHRITIS, LEFT SHOULDER 07/23/2017 KYLIE ZIMMERMAN MD Ot M25.522 PAIN IN LEFT ELBOW 07/23/2017 KYLIE ZIMMERMAN MD Ot W19.XXXA UNSPECIFIED FALL, INITIAL ENCOUNTER 07/29/2017 KYLIE ZIMMERMAN MD Ot J44.9 CHRONIC OBSTRUCTIVE PULMONARY DISEASE, U 07/29/2017 KYLIE ZIMMERMAN MD Ot R09.02 HYPOXEMIA 08/07/2017 KYLIE ZIMMERMAN MD, Ot J44.9 CHRONIC OBSTRUCTIVE PULMONARY DISEASE, U 08/07/2017 KYLIE ZIMMERMAN MD Ot R09.02 HYPOXEMIA 08/12/2017 KYLIE ZIMMERMAN MD Ot M19.012 PRIMARY OSTEOARTHRITIS, LEFT SHOULDER 08/12/2017 KYLIE ZIMMERMAN MD Ot M25.522 PAIN IN LEFT ELBOW 08/12/2017 KYLIE ZIMMERMAN MD Ot W19.XXXA UNSPECIFIED FALL, INITIAL ENCOUNTER 08/20/2017 SONIA CHONG MD Ot M25.512 PAIN IN LEFT SHOULDER 08/20/2017 SONIA CHONG MD Ot S46.011D STRAIN OF MUSC/TEND THE ROTATOR CUFF OF 08/20/2017 KYLIE ZIMMERMAN MD Ot M19.012 PRIMARY OSTEOARTHRITIS, LEFT SHOULDER 08/20/2017 KYLIE ZIMMERMAN MD Ot M25.522 PAIN IN LEFT ELBOW 08/20/2017 KYLIE ZIMMERMAN MD Ot W19.XXXA UNSPECIFIED FALL, INITIAL ENCOUNTER 09/10/2017 KATHRINE HOYOS, EKSHAV Painting Ot Z01.818 ENCOUNTER FOR OTHER PREPROCEDURAL EXAMIN Procedures There is no data. Results Test Result Range Automated blood complete blood count (hemogram) panel - 08/08/16 17:05 Blood leukocytes automated count (number/volume) 7.6 10*3/uL 4.3-11.0 Blood erythrocytes automated count (number/volume) 6.08 10*6/uL 4.35-5.85 Venous blood hemoglobin measurement (mass/volume) 16.5 [...] Automated blood platelet mean volume measurement 9.5 [foz_us] 7.4-10.4 Comprehensive metabolic panel - 08/08/16 17:05 Serum or plasma sodium measurement (moles/volume) 140 mmol/L 135-145 Serum or plasma potassium measurement (moles/volume) 3.4 mmol/L 3.6-5.0 Serum or plasma chloride measurement (moles/volume) 105 mmol/L 98-107 Carbon dioxide 24 mmol/L 21-32 Serum or plasma anion gap determination (moles/volume) 11 mmol/L 5-14 Serum or plasma urea nitrogen measurement (mass/volume) 12 mg/dL 7-18 Serum or plasma creatinine measurement (mass/volume) 1.11 mg/dL 0.60-1.30 Serum or plasma urea nitrogen/creatinine mass ratio 11 0 -20 Serum or plasma creatinine measurement with calculation [...] or plasma troponin i.cardiac measurement (mass/volume) < ng/ mL <0.30 THYROID STIMULATING HORMONE - 08/08/16 17:05 THYROID STIMULATING HORMONE 3.27 u[iU]/mL 0.35-4.94 Complete urinalysis with reflex to culture - 08/08/16 17:13 Urine color determination YELLOW NRG Urine clarity determination CLEAR NRG Urine pH measurement by test strip 5 5-9 Specific gravity of urine by test strip 1.025 1.016- 1.022 Urine protein assay by test strip, semi-quantitative [...] Status Pt. Type Provider Facility Loc./Unit Complaint [id number] 09/09/2017 05:59:00 09/09/2017 10:11:00 DIS Outpatient KESHAV CHISHOLM MD [facility] PREOP SIGMOIDOSCOPY [id number] 09/08/2017 13:30:00 09/08/2017 23:59:59 CLS Outpatient SONIA CHONG MD [facility] REHAB MASSIVE R RCR; L SHOULDER PAIN [id number] 07/22/2017 11:31:00 07/22/2017 23:59:59 CLS Outpatient KYLEI ZIMMERMAN MD [facility] RAD LEFT SHOULDER PAIN [id number] 07/09/2017 07:07:00 07/09/2017 23:59:59 CLS Outpatient KYLIE ZIMMERMAN MD [facility] RT HYPOXEMIA,COPD [id number] 05/08/2017 10:25:00 06/16/2017 16:00:00 DIS Outpatient ANNA ORELLANA MD [facility] REHAB R SHOULDER PAIN [id number] 05/23/2017 06:49:00 05/23/2017 09:00:00 DIS Outpatient KESHAV CHISHOLM MD [facility] ENDO RECTAL VILLOUS ADENOMA [id number] 05/21/2017 21:00:00 05/22/2017 06:35:00 DIS Outpatient KYLIE ZIMMERMAN MD [facility] SLEEP SLEEP RELATED HYPOVENTILATION G47.36 [id number] 05/19/2017 12:00:00 05/19/2017 12:37:00 DIS Outpatient KESHAV CHISHOLM MD [facility] PREOP SIGMOIDOSCOPY [id number] 05/05/2017 10:48:00 05/07/2017 00:01:00 DIS Outpatient ANNA ORELLANA MD [facility] REHAB R SHOULDER PAIN [id number] 02/25/2017 00:10:00 02/25/2017 23:59:59 CLS Preadmit KULWANT NOGUEIRA MD [facility] REHAB NECK PAIN [id number] 01/30/2017 08:57:00 02/24/2017 00:10:00 DIS Outpatient KULWANT NOGUEIRA MD [facility] REHAB NECK PAIN [id number] 11/22/2016 11:16:00 11/23/2016 00:01:00 DIS Outpatient KULWANT NOGUEIRA MD [facility] REHAB NECK PAIN [id number] 08/21/2016 10:07:00 08/21/2016 23:59:59 CLS Outpatient SOLO MENDEZ [facility] RAD DIZZINESS, ABNORMAL CT [id number] 08/16/2016 06:56:00 08/16/2016 13:40:00 DIS Outpatient KESHAV CHISHOLM MD [facility] ENDO VILLIOUS ADENOUS RECTUM [id number] 08/14/2016 05:31:00 08/14/2016 14:27:00 DIS Outpatient KESHAV CHISHOLM MD [facility] PREOP VILLIOUS ADENOUS RECTUM [id number] 08/08/2016 16:49:00 08/08/2016 23:59:59 CLS Outpatient SOLO MENDEZ [facility] RAD DIZZNINESS,BLURRY VISION [id number] 02/12/2016 10:24:00 02/12/2016 23:59:59 CLS Outpatient MARIO ROSADO MD [facility] RAD THYROID NODULE [id number] 09/15/2015 08:51:00 09/15/2015 23:59:59 CLS Outpatient KESHAV CHISHOLM MD [facility] SDC SCREENING [id number] 09/11/2015 05:41:00 09/11/2015 09:34:00 DIS Outpatient KESHAV CHISHOLM MD [facility] PREOP SCREENING [id number] 09/01/2015 08:28:00 09/04/2015 11:08:00 DIS [facility] [id number] 07/31/2015 14:10:00 07/31/2015 18:06:00 DIS Emergency KODI ESQUEDA APRN [facility] ER DIZZINESS CHEST PAIN/SOA [id number] 07/14/2015 11:28:00 07/14/2015 23:59:59 CLS Outpatient SELENE BROCK MD [facility] CARD LESION L3 [id number] 04/13/2015 08:25:00 04/13/2015 13:05:00 DIS Outpatient [facility]AK[facility], GAIT ATAX[place] [id number] 02/22/2015 15:00:00 02/28/2015 00:01:00 DIS Outpatient [facility] WEAK[facility], GAIT ATAXIA [id number] 11/30/2014 15:02:00 11/30/2014 23:59:59 CLS Outpatient MELISSA STEVENSON MD [facility] LAB CAD [id number] 08/03/2014 12:04:00 08/03/2014 23:59:59 CLS Preadmit CASSANDRA GONZALES MD [facility] REHAB [id number] 04/08/2014 13:13:00 04/08/2014 18:55:00 DIS Emergency SOLO MENDEZ [facility] ER POSS MINI STROKE [id number] 12/21/2013 14:24:00 12/21/2013 23:59:59 CLS Outpatient CASSANDRA GONZALES MD [facility] RAD LOW BACK PAIN, HIP PAIN [id number] 10/27/2013 15:39:00 10/27/2013 23:59:59 CLS Outpatient CARMEN DELVALLE APRN [facility] RAD ABD PAIN [id number] 09/12/2017 11:30:00 PEN Preadmit KESHAV CHISHOLM MD [facility] ENDO SURVEILLANCE RECTAL VILLOUS ADENOMA [id number] 04/06/2012 11:46:00 Document Registration [id number] 04/02/2012 08:16:00 Document Registration [id number] 03/31/2012 14:04:00 Document Registration [id number] 03/04/2017 09:09:01 03/04/2017 23:59:59 CLS Outpatient [id number] 12/05/2014 15:05:58 ACT Document Registration
[2017-09-12] MEDS ORDERED: NS IV 1000 ML 1,000 ML IV ONE (19:33)
--- NOTE | 2017-09-12 20:00 | ED GI ---
General Chief Complaint: Rect Problems Stated Complaint: BLEEDING AFTER COLONOSCOPY Nursing Triage Note: PATIENT STATES THAT THIS MORNING, DR. CHISHOLM REMOVED A POLY DURING A COLONOSCOPY AND SINCE GETTING HOME AT NOON, HE HAS PASSED 3-4 LARGE CLOTS OF BLOOD FOLLOWED WITH BLOOD RUNNING DOWN HIS LEG. HE STATES THAT IT "HITS HIM FAST" AND THAT HE DOESN'T FEEL THAT HE HAS A LOT OF CONTROL OF IT. HE HAS HAD PREVIOUS COLONOSCOPY WITH NOT MUCH BLEEDING OR SORENESS. Sepsis Screen: No Definite Risk Source of Information: Patient, Spouse Exam Limitations: No Limitations History of Present Illness Date Seen by Provider: Sep 12, 2017 Time Seen by Provider: 19:25 Initial Comments PT STATES HE HAD A COLONOSCOPY THIS MORNING BY DR. CHISHOLM STATES HE HAD A POLYP REMOVED HAS BEEN HAVING LARGE AMOUNT OF RECTAL BLEEDING SOON HE GOT HOME AT 12:30 TODAY STATES HE HAS PASSED CLOTS THE SIZE OF HIS FIST, FOLLOWED BY LARGE GUSHES OF BLOOD--STATES HE HAS PASSED SEVERAL CLOTS THIS LARGE STATES HE LEAVES A BLOOD TRAIL WHEN HE WALKS--BLOOD IS JUST POURING OUT OF IS RECTUM NO ABDOMINAL PAIN, ONLY C/O PAIN AROUND RECTUM PT HAS BEEN OFF PLAVIX AND MELOXICAM SINCE Friday09/08/17 C/O MILD DIZZINESS NO NAUSEA/VOMITING HAS NOT PASSED ANY STOOL--ONLY BLOOD. PT ALSO HAD RIGHT SHOULDER SURGERY [address] ELIZONDO [facility] RIGHT ARM IS STILL IN A SLING ON HYDROCODONE 7.5 MG EVERY 4-6 HOURS HAS NOT ATTEMPTED TO CONTACT DR. CHISHOLM OR DR. ZIMMERMAN AT ANY TIME FOR THIS PROBLEM PCP: DR. ZIMMERMAN Allergies and Home Medications Allergies Coded Allergies: No Known Drug Allergies (Unverified , 08/14/16) Home Medications Atorvastatin Calcium 40 Mg Tablet, 40 MG PO DAILY, (Reported) Cyclobenzaprine HCl 5 Mg Tablet, 5 MG PO DAILY PRN for MUSCLE SPASMS, (Reported) Ergocalciferol (Vitamin D2) 2,000 Unit Tablet, 2,000 UNIT PO DAILY, (Reported) Ergocalciferol (Vitamin D2) 50,000 Unit Capsule, 50,000 UNIT PO WEEK, (Reported) Furosemide 40 Mg Tablet, 40 MG PO DAILY, (Reported) Gabapentin 300 Mg Capsule, 600 MG PO TID, (Reported) take 2 (300mg) tab Hydrocodone Bit/Acetaminophen 1 Each Tablet, 1 TAB PO Q12H PRN for PAIN, ( Reported) Meloxicam 15 Mg Tablet, 15 MG PO DAILY, (Reported) Nortriptyline HCl 10 Mg Capsule, 10 MG PO HS, (Reported) Potassium Chloride 10 Meq Capsule.er, 10 MEQ PO DAILY, (Reported) Testosterone Cypionate 200 Mg/1 Ml Vial, 100 MG IM every 2 weeks, (Reported) Patient Home Medication List Home Medication List Reviewed: Yes Review of Systems Constitutional: see HPI, dizziness Respiratory: No Symptoms Reported Cardiovascular: No Symptoms Reported Gastrointestinal: See HPI; Denies Abdominal Pain, Denies Constipated, Denies Diarrhea, Denies Nausea; Rectal Bleeding; Denies Vomiting; Other (RECTAL PAIN) Genitourinary: No Symptoms Reported Musculoskeletal: see HPI (RIGHT SHOULDER PAIN ) Skin: no symptoms reported Psychiatric/Neurological: No Symptoms Reported Endocrine: No Symptoms Reported Hematologic/Lymphatic: See HPI Past Nsfvxpf-Yvwkbj-Gzcema Hx Patient Social History Alcohol Use: Rarely Uses Smoking Status: Former Smoker Former Smoker, Quit: Sep 14, 2000 Recent Foreign Travel: No Contact w/Someone Who Travel: No Recent Infectious Disease Expo: No Recent Hopitalizations: No Immunizations Up To Date Date of Pneumonia Vaccine: Dec 15, 2014 Date of Influenza Vaccine: Dec 03, 2016 Seasonal Allergies Seasonal Allergies: No Past Medical History Surgeries: Yes (RIGHT SHOULDER SURGERY; COLONOSCOPIES/POLYPECTOMIES; LEFT CAROTID ENDARTERECTOMY; 3 VESSEL CABG 2000) Cardiac, CABG, Orthopedic, Vascular Surgery Respiratory: No Cardiac: Yes (CAROTID DISEASE) Coronary Artery Disease, High Cholesterol, Hypertension Neurological: Yes TIA Reproductive Disorders: No Sexually Transmitted Disease: Yes HIV/AIDS: No Genitourinary: Yes Kidney Stones 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 0.0oz. 90.173121jw; 28.7 BMI Method:Stated General Appearance: WD/WN, no apparent distress, other (RIGHT ARM IN SLING) Respiratory: normal breath sounds, no respiratory distress, no accessory muscle use Cardiovascular: regular rate, rhythm, no murmur Gastrointestinal: normal bowel sounds, non tender, soft Rectal: other (GROSS BLOOD AND SMALL CLOTS, WITH MILD CONTINUOUS OOZING FROM RECTUM. HAS NEARLY SATURATED THE INCONTINENCE BRIEF HE IS WEARING, WITH BLOOD. ) Extremities: no pedal edema, no calf tenderness, normal capillary refill, other (RIGHT ARM IN SLING. 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, no motor/sensory deficits, alert, normal mood/affect, oriented x 3 Skin: normal color, warm/dry Procedures/Interventions Progress INSERTED 7.5 ANTERIOR/POSTERIOR RAPID RHINO WITH CENTRAL AIRWAY TUBE, SATURATED WITH TXA, INTO RECTUM INSUFFLATED WITH APPROXIMATELY 7.5 ML AIR INTO BALLOON DEVICE SECURED WITH STERILE GAUZE AND TAPE PT TOLERATED VERY WELL Progress/Results/Core Measures Results/Orders Lab Results Laboratory Tests Test 09/12/17 20:25 09/12/17 20:45 Range/Units White Blood Count 6.8 4.3-11.0 10^3/uL Red Blood Count 5.27 4.35-5.85 10^6/uL Hemoglobin 15.2 13.3-17.7 G/DL Hematocrit 46 40-54 % Mean Corpuscular Volume 88 80-99 FL Mean Corpuscular Hemoglobin 29 25-34 PG Mean Corpuscular Hemoglobin Concent 33 32-36 G/DL Red Cell Distribution Width 14.9 H 10.0-14.5 % Platelet Count 331 130-400 10^3/uL Mean Platelet Volume 9.5 7.4-10.4 FL Neutrophils (%) (Auto) 52 42-75 % Lymphocytes (%) (Auto) 30 12-44 % Monocytes (%) (Auto) 14 H 0-12 % Eosinophils (%) (Auto) 4 0-10 % Basophils (%) (Auto) 1 0-10 % Neutrophils # (Auto) 3.5 1.8-7.8 X 10^3 Lymphocytes # (Auto) 2.0 1.0-4.0 X 10^3 Monocytes # (Auto) 0.9 0.0-1.0 X 10^3 Eosinophils # (Auto) 0.3 0.0-0.3 10^3/uL Basophils # (Auto) 0.1 0.0-0.1 10^3/uL Prothrombin Time 13.3 12.2-14.7 SEC INR Comment 1.0 0.8-1.4 Activated Partial Thromboplast Time 26 24-35 SEC Sodium Level 140 135-145 MMOL/L Potassium Level 3.9 3.6-5.0 MMOL/L Chloride Level 106 98-107 MMOL/L Carbon Dioxide Level 23 21-32 MMOL/L Anion Gap 11 5-14 MMOL/L Blood Urea Nitrogen 9 7-18 MG/DL Creatinine 0.94 0.60-1.30 MG/DL Estimat Glomerular Filtration Rate > 60 BUN/Creatinine Ratio 10 Glucose Level 109 H 70-105 MG/DL Calcium Level 8.7 8.5-10.1 MG/DL Total Bilirubin 0.6 0.1-1.0 MG/DL Aspartate Amino Transf (AST/SGOT) 18 5-34 U/L Alanine Aminotransferase (ALT/SGPT) 15 0-55 U/L Alkaline Phosphatase 59 40-136 U/L Total Protein 5.8 L 6.4-8.2 GM/DL Albumin 3.7 3.2-4.5 GM/DL My Orders Orders - ELIZABETH BAILEY DO Saline Lock/Iv-Start (09/12/17 19:33) Monitor-Rhythm Ecg Trace Only (09/12/17 19:33) Ct Abdomen/Pelvis W (09/12/17 19:33) Cbc With Automated Diff (09/12/17 19:33) Comprehensive Metabolic Panel (09/12/17 19:33) Protime With Inr (09/12/17 19:33) Partial Thromboplastin Time (09/12/17 19:33) Type And Screen (09/12/17 19:33) Saline Lock/Iv-Start (09/12/17 19:33) Ns Iv 1000 Ml (Sodium Chloride 0.9%) (09/12/17 19:33) Fentanyl Injection (Sublimaze Injection (09/12/17 20:53) Lorazepam Injection (Ativan Injection) (09/12/17 21:00) Iohexol Injection (Omnipaque 350 Mg/Ml 1 (09/12/17 21:45) Ns (Ivpb) (Sodium Chloride 0.9%) (09/12/17 21:45) Tranexamic Acid Injection (Cyklokapron I (09/12/17 22:15) Medications Given in ED Current Medications Medications Dose Ordered Sig/Joanna Route Start Time Stop Time Status Last Admin Dose Admin Iohexol 100 ml ONCE ONCE IV 09/12/17 21:45 09/12/17 21:46 DC 09/12/17 21:43 100 ML Lorazepam 1 mg ONCE ONCE IVP 09/12/17 21:00 09/12/17 21:01 DC 09/12/17 21:05 1 MG Sodium Chloride 250 ml ONCE ONCE IV 09/12/17 21:45 09/12/17 21:46 DC 09/12/17 21:43 80 ML Sodium Chloride 1,000 ml @ 0 mls/hr Q0M ONCE IV 09/12/17 19:33 09/12/17 19:35 DC 09/12/17 21:04 999 MLS/HR Vital Signs/I&O 09/12/17 19:25 Pulse 88 Resp 20 B/P (MAP) 120/90 (100) Pulse Ox 96 O2 Delivery Room Air Blood Pressure Mean: 100 Progress Progress Note : Progress Note NO DETERIORATION IN PT'S CONDITION DURING ER STAY Diagnostic Imaging Comments CT ABDOMEN/PELVIS--DEBRIS--STOOL VS HEMORRHAGE IN RECTOSIGMOID AREA, OTHER CHRONIC/STABLE CHANGES NOTED--PER RADIOLOGIST REPORT @ 2151 Reviewed: Reviewed by Me Departure Communication (Admissions) 0--SPOKE WITH DR. CHISHOLM, ACCEPTS PT FOR ADMIT/OBSERVATION. WILL INSERT NASAL TAMPON SATURATED WITH TXA FOR HEMOSTASIS, HE REPORTS THE POLYPECTOMY SITE IS JUST INSIDE THE ANAL VERGE AT 12:00 Impression Primary Impression: Rectal bleeding Additional Impression: POST RECTAL POLYPECTOMY Disposition: ADMITTED INPATIENT Condition: Stable Admissions Decision to Admit Reason: Admit from ER (General) Decision to Admit/Date: Sep 12, 2017 Time/Decision to Admit Time: 22:00 Departure-Patient Inst. Referrals: KYLIE ZIMMERMAN MD (PCP) Primary Care Physician ELIZABETH BAILEY DO Sep 12, 2017 19:59
[2017-09-12 20:40] LABS: BASOPHILS # (AUTO) 0.1 10^3/uL (0.0-0.1); BASOPHILS % (AUTO) 1 % (0-10); EOSINOPHILS # (AUTO) 0.3 10^3/uL (0.0-0.3); EOSINOPHILS % (AUTO) 4 % (0-10); HEMATOCRIT 46 % (40-54); HEMOGLOBIN 15.2 G/DL (13.3-17.7); LYMPHOCYTES % (AUTO) 30 % (12-44); MEAN CORPUSCULAR HEMOGLOBIN 29 PG (25-34); MEAN CORPUSCULAR HGB CONC 33 G/DL (32-36); MEAN CORPUSCULAR VOLUME 88 FL (80-99); MEAN PLATELET VOLUME 9.5 FL (7.4-10.4); MONOCYTES # (AUTO) 0.9 X 10^3 (0.0-1.0); MONOCYTES % (AUTO) 14 % (0-12); NEUTROPHILS # (AUTO) 3.5 X 10^3 (1.8-7.8); NEUTROPHILS % (AUTO) 52 % (42-75); PLATELET COUNT 331 10^3/uL (130-400); RED BLOOD COUNT 5.27 10^6/uL (4.35-5.85); RED CELL DISTRIBUTION WIDTH 14.9 % (10.0-14.5); WHITE BLOOD COUNT 6.8 10^3/uL (4.3-11.0)
[2017-09-12] MEDS ORDERED: fentaNYL INJECTION 100 MCG/2 ML AMP IVP STA (20:53)
[2017-09-12] MEDS ORDERED: LORazepam INJ 2 MG/ML (ATIVAN) VIAL IVP ONE (21:00)
[2017-09-12 21:16] LABS: ALANINE AMINOTRANSFERASE 15 U/L (0-55); ALBUMIN 3.7 GM/DL (3.2-4.5); ALKALINE PHOSPHATASE 59 U/L (40-136); BILIRUBIN,TOTAL 0.6 MG/DL (0.1-1.0); BUN/CREATININE RATIO 10; CALCIUM 8.7 MG/DL (8.5-10.1); CARBON DIOXIDE 23 MMOL/L (21-32); CHLORIDE 106 MMOL/L (98-107); CREATININE SERUM 0.94 MG/DL (0.60-1.30); GFR ESTIMATED > 60; GLUCOSE 109 MG/DL (70-105); POTASSIUM 3.9 MMOL/L (3.6-5.0); SODIUM 140 MMOL/L (135-145); TOTAL PROTEIN 5.8 GM/DL (6.4-8.2)
[2017-09-12 21:36] LABS: PROTHROMBIN TIME PATIENT 13.3 SEC (12.2-14.7)
[2017-09-12] MEDS ORDERED: IOHEXOL 350 MG/ML 100 ML (OMNIPAQUE 350) VIAL IV ONE (21:45)
[2017-09-12] MEDS ORDERED: NS 250 ML (IVPB) BAG IV ONE (21:45)
--- NOTE | 2017-09-12 21:54 | Diagnostic Imaging Report ---
PROCEDURE: CT abdomen and pelvis with contrast. TECHNIQUE: Multiple contiguous axial images were obtained through the abdomen and pelvis after administration of intravenous contrast. INDICATION: Colonoscopy, polyp removed, bloody stools, abdominal pain COMPARISON: 05/02/2013 FINDINGS: The right lung base is clear. There is a pleural-based nodule in the left lung base which is stable from the prior exam. Stable benign liver cysts are present. Otherwise, the liver, gallbladder, spleen, pancreas, adrenal glands, kidneys and vascular structures are grossly unremarkable. The course and caliber of the large and small bowel grossly unremarkable. However, there is increased density within the rectosigmoid colon, possibly fecal matter or hemorrhage. Distal ureters and urinary bladder normal. There is some slight prostate enlargement. There is no hernia. No inflammatory process is seen. There is no free air or free fluid. Osseous structures are age-appropriate. IMPRESSION: 1. Slight distention of the rectosigmoid colon possibly hemorrhage or fecal matter. There is no bowel obstruction or inflammation. 2. No free air or free fluid. Dictated by: Dictated on workstation # [id number]
[2017-09-12] MEDS ORDERED: TRANEXAMIC ACID 100 MG/ML 10 ML INJECTION IV ONE (22:15)
[2017-09-12] MEDS ORDERED: CATHETER FLUSH 10 ML SYR IV PRN (23:30)
[2017-09-13] VITALS (7 sets, daily range): BP systolic 100–119; BP diastolic 58–76
[2017-09-13] MEDS: NS IV 1000 ML 1,000 ML IV SCH ×2 (00:06→13:28)
[2017-09-13] MEDS: fentaNYL INJECTION 100 MCG/2 ML AMP IV PRN ×3 (00:06→06:02)
[2017-09-13 06:02] LABS: BASOPHILS # (AUTO) 0.1 10^3/uL (0.0-0.1); BASOPHILS % (AUTO) 2 % (0-10); EOSINOPHILS # (AUTO) 0.3 10^3/uL (0.0-0.3); EOSINOPHILS % (AUTO) 5 % (0-10); HEMATOCRIT 40 % (40-54); LYMPHOCYTES # (AUTO) 1.4 X 10^3 (1.0-4.0); LYMPHOCYTES % (AUTO) 28 % (12-44); MEAN CORPUSCULAR HEMOGLOBIN 29 PG (25-34); MEAN CORPUSCULAR HGB CONC 32 G/DL (32-36); MEAN CORPUSCULAR VOLUME 89 FL (80-99); MEAN PLATELET VOLUME 9.5 FL (7.4-10.4); MONOCYTES # (AUTO) 0.6 X 10^3 (0.0-1.0); MONOCYTES % (AUTO) 12 % (0-12); NEUTROPHILS # (AUTO) 2.7 X 10^3 (1.8-7.8); NEUTROPHILS % (AUTO) 54 % (42-75); PLATELET COUNT 293 10^3/uL (130-400); RED BLOOD COUNT 4.56 10^6/uL (4.35-5.85); RED CELL DISTRIBUTION WIDTH 14.9 % (10.0-14.5)
[2017-09-13 06:23] LABS: BUN/CREATININE RATIO 12; CARBON DIOXIDE 22 MMOL/L (21-32); CHLORIDE 112 MMOL/L (98-107); CREATININE SERUM 0.76 MG/DL (0.60-1.30); GFR ESTIMATED > 60; GLUCOSE 110 MG/DL (70-105); POTASSIUM 3.9 MMOL/L (3.6-5.0); SODIUM 139 MMOL/L (135-145)
[2017-09-13] MEDS: CATHETER FLUSH 10 ML SYR IV SCH ×3 (07:32→20:30)
[2017-09-13] MEDS ORDERED: fentaNYL INJECTION 100 MCG/2 ML AMP ONE ×2 (07:54→08:42)
[2017-09-13] MEDS ORDERED: LIDOCAINE JELLY 2% (XYLOCAINE) 5 ML TUBE ONE (07:54)
[2017-09-13] MEDS ORDERED: MIDAZOLAM 2 MG/2 ML (VERSED) VIAL ONE (07:55)
[2017-09-13] MEDS ORDERED: D5 LR IV SOLUTION 0 ML IV ONE (08:06)
[2017-09-13] MEDS ORDERED: ONDANSETRON 4 MG/2 ML (SDV) Z0FRAN ONE (08:09)
[2017-09-13] MEDS ORDERED: ONDANSETRON 4 MG/2 ML (SDV) Z0FRAN IVP ONE (08:15)
[2017-09-13] MEDS ORDERED: EPINEPHrine INJECTION 1 MG/ML AMP ONE (08:42)
[2017-09-13] MEDS: fentaNYL INJECTION 100 MCG/2 ML AMP IVP PRN ×2 (08:50→09:00)
[2017-09-13] MEDS ORDERED: LIDOCAINE JELLY 2% (XYLOCAINE) 5 ML TUBE MM PRN (10:15)
--- NOTE | 2017-09-13 11:32 | History & Physical-Hospitalist ---
History of Present Illness HPI/Chief Complaint Mr. Dao is a pleasant 72-year-old white male who the morning of the underwent colonoscopy with polypectomy. He had a villous appearing adenoma located just above the dentate line along the posterior rectal wall at the 11- 12 o'clock position. The polyp was snared and removed. There was little more than average amount of bleeding at the time of the procedure which secured the base to see whether or not it truly was excised in its entirety. It had stopped however during observation after minutes or so. The patient is on Plavix and was also taking meloxicam but it reportedly held Plavix for a week prior to the procedure as well as meloxicam. He went home and within several hours began passing large dark red clots there was also seepage of brighter red blood. He waited for 5 or 6 hours but continued to have hematochezia and presented to the emergency room. There he soak through depends however had no evidence for hemodynamic instability and his hemoglobin was 15 although I suspect falsely elevated without enough time for volume redistribution. He denied lightheadedness and had no evidence for hemolytic instability but because of ongoing bleeding patient was admitted to the hospital and I also instructed the emergency room physician to attempt An odd with one of the nasal plugs with thrombotic material used to control epistaxis which was inserted in the rectum. The patient subsequent admitted after there appeared to be some initial this diminishment of bleeding. Overnight the patient past several more clots and was continuing to ooze blood per rectum. He was subsequent taken to the endoscopy suite where he underwent epinephrine-based sclerotherapy. There was still a small remnant of polyp tissue present oozing which was cauterized. Due to his location just above the rectum Surgicel was then applied with cessation of blood loss at the time of the procedure. Patient denied chest pain shortness of breath or lightheadedness. Date Seen 09/13/17 Time Seen by Provider: 07:30 Attending Physician Keshav Farah MD PCP Leora Hollis MD Referring Physician Date of Admission Sep 12, 2017 at 22:00 Home Medications & Allergies Home Medications Reviewed patient Home Medication Reconciliation performed by pharmacy medication reconciliations tar processing technician and/or nursing. Patients Allergies have been reviewed. Allergies Allergies Coded Allergies No Known Drug Allergies (Unverified08/14/16) Past Nsqwpws-Tbmjgw-Dtdrqh Hx Past Med/Social Hx: Reviewed and Corrections made Patient Social History Alcohol Use: Rarely Uses Number of Drinks Today: AA Recreational Drug Use: No Smoking Status: Former Smoker Former Smoker, Quit: Sep 14, 2000 Type Used: Cigarettes Physical Abuse Screen: No Sexual Abuse: No Recent Foreign Travel: No Contact w/other who traveled: No Recent Hopitalizations: No Recent Infectious Disease Expo: No Immunizations Up To Date Date of Pneumonia Vaccine: Dec 15, 2014 Date of Influenza Vaccine: Dec 03, 2017 Seasonal Allergies Seasonal Allergies: No Past Medical History Surgeries: Cardiac, CABG, Orthopedic, Vascular Surgery Currently Using CPAP: No Currently Using BIPAP: No Cardiac: Coronary Artery Disease, High Cholesterol, Hypertension Neurological: TIA Reproductive: No Sexually Transmitted Disease: Yes HIV/AIDS: No Genitourinary: Kidney Stones Gastrointestinal: Polyps Musculoskeletal: Arthritis, Chronic Back Pain HEENT: Cataract Loss of Vision: Bilateral Hearing Impairment: Denies History of Blood Disorders: No Adverse Reaction to Blood Tate: No (HAS HAD BLOOD WITH NO REACTION) Family History No Pertinent Family Hx Review of Systems Constitutional: no symptoms reported Respiratory: no symptoms reported, see HPI Cardiovascular: No no symptoms reported, No see HPI, No chest pain, No edema, No palpitations, No syncope; vascular heart diseas; No other Gastrointestinal: see HPI, other (No nausea or abdominal pain reported. Ongoing hematochezia) Genitourinary: no symptoms reported Physical Exam Physical Exam Vital Signs Vital Signs - First Documented 09/12/17 09/12/17 19:25 23:00 Temp 98.0 Pulse 88 Resp 20 B/P (MAP) 120/90 (100) Pulse Ox 96 O2 Delivery Room Air Capillary Refill : Less Than 3 Seconds Height, Weight, BMI Height: 5'10.00" Weight: 201lbs. 0.0oz. 91.222175ln; 28.8 BMI Method:Stated General Appearance: No Apparent Distress, Anxious Respiratory: Chest Non Tender, Lungs Clear, Normal Breath Sounds, No Accessory Muscle Use, No Respiratory Distress Cardiovascular: Regular Rate, Rhythm, No Edema, No Gallop, No JVD, No Murmur, Normal Peripheral Pulses Gastrointestinal: Normal Bowel Sounds, No Organomegaly, No Pulsatile Mass, Non Tender, Soft Rectal: Other (No palpable abnormalities are noted on rectal evaluation with dark red blood noted on the exam finger) Extremity: Normal Capillary Refill, Normal Inspection, Normal Range of Motion, Non Tender, No Calf Tenderness, No Pedal Edema Neurologic/Psychiatric: Alert, Oriented x3 Results Results/Procedures Labs Laboratory Tests 09/12/17 20:25 09/12/17 20:45 09/13/17 04:55 09/14/17 05:10 Patient resulted labs reviewed. Assessment/Plan Admission Diagnosis A/P number 1 post polypectomy rectal bleeding aggravated by chronic Plavix usage despite having stopped one week ago, per patient. Patient has had a significant amount of blood loss that I don't think is accurately reflected in his hemoglobin levels. He however is hemodynamically stable at this time he is undergone epinephrine base sclera therapy and cauterization of the remnant of polyp tissue that was oozing location at the 11 and 12 o'clock position beginning just above the dentate line in the rectum will continue to observe today as for now bleeding has ceased with hopeful discharge tomorrow. Notable repeat blood counts in the morning. 2. Coronary artery disease continue to hold Plavix no recent history of stent placement. 3. Bilateral rotator cuff tendinitis with repair as I recall little over 6 weeks ago with a right shoulder. 4. Hyperlipidemia we'll resume statin therapy. Admission Status: Observation Clinical Quality Measures DVT/VTE Risk/Contraindication: Risk Factor Score Per Nursin RFS Level Per Nursing on Admit: 2=Moderate KESHAV FARAH MD Sep 13, 2017 11:32
[2017-09-13] MEDS ORDERED: HYDROcodone/APAP 5 MG/325 MG (LORTAB) TAB PO PRN (13:30)
[2017-09-13] MEDS: HYDROcodone/APAP 7.5 MG/325 MG (LORTAB, LORCET PLUS) TABLET PO PRN ×2 (13:52→20:27)
[2017-09-13] MEDS ORDERED: ATORVASTATIN 40 MG (LIPITOR) TABLET PO SCH (21:00)
[2017-09-13] MEDS ORDERED: NORTRIPTYLINE 10 MG (PAMELOR) CAP PO SCH (21:00)
[2017-09-14] MEDS: CATHETER FLUSH 10 ML SYR IV SCH (05:11)
[2017-09-14 05:34] LABS: HEMOGLOBIN 12.5 G/DL (13.3-17.7); MEAN PLATELET VOLUME 9.4 FL (7.4-10.4); RED BLOOD COUNT 4.37 10^6/uL (4.35-5.85); RED CELL DISTRIBUTION WIDTH 14.9 % (10.0-14.5); WHITE BLOOD COUNT 4.9 10^3/uL (4.3-11.0)
[2017-09-14] MEDS: HYDROcodone/APAP 7.5 MG/325 MG (LORTAB, LORCET PLUS) TABLET PO PRN (06:51)
[2017-09-14 08:00] VITALS: BP 114/73
[2017-09-14 09:50] VITALS: BP 114/73
--- NOTE | 2017-09-14 11:00 | Discharge Summary-Hospitalist ---
Diagnosis/Chief Complaint Date of Admission Sep 12, 2017 at 22:00 Date of Discharge Sep 14, 2017 at 09:50 Discharge Date: Sep 14, 2017 Admission Diagnosis A/P number 1 post polypectomy rectal bleeding aggravated by chronic Plavix usage despite having stopped one week ago, per patient. Patient has had a significant amount of blood loss that I don't think is accurately reflected in his hemoglobin levels. He however is hemodynamically stable at this time he is undergone epinephrine base sclera therapy and cauterization of the remnant of polyp tissue that was oozing location at the 11 and 12 o'clock position beginning just above the dentate line in the rectum will continue to observe today as for now bleeding has ceased with hopeful discharge tomorrow. Notable repeat blood counts in the morning. 2. Coronary artery disease continue to hold Plavix no recent history of stent placement. 3. Bilateral rotator cuff tendinitis with repair as I recall little over 6 weeks ago with a right shoulder. 4. Hyperlipidemia we'll resume statin therapy. Discharge Diagnosis Same as admission diagnosis Discharge Summary Discharge Physical Exam Allergies: Coded Allergies: No Known Drug Allergies (Unverified , 08/14/16) Vitals & I&Os Vital Signs Date Time Temp Pulse Resp B/P (MAP) Pulse Ox O2 Delivery O2 Flow Rate FiO2 09/14/17 09:50 74 20 114/73 99 Room Air 09/14/17 08:00 98.6 General Appearance: Alert, Oriented X3 Cardiovascular: Regular Rate Abdominal: Soft, No Tenderness Hospital Course . Mr. Dao is a pleasant 72-year-old white male who the morning of the underwent colonoscopy with polypectomy. He had a villous appearing adenoma located just above the dentate line along the posterior rectal wall at the 11- 12 o'clock position. The polyp was snared and removed. There was little more than average amount of bleeding at the time of the procedure which secured the base to see whether or not it truly was excised in its entirety. It had stopped however during observation after minutes or so. The patient is on Plavix and was also taking meloxicam but it reportedly held Plavix for a week prior to the procedure as well as meloxicam. He went home and within several hours began passing large dark red clots there was also seepage of brighter red blood. He waited for 5 or 6 hours but continued to have hematochezia and presented to the emergency room. There he soak through depends however had no evidence for hemodynamic instability and his hemoglobin was 15 although I suspect falsely elevated without enough time for volume redistribution. He denied lightheadedness and had no evidence for hemolytic instability but because of ongoing bleeding patient was admitted to the hospital and I also instructed the emergency room physician to attempt An odd with one of the nasal plugs with thrombotic material used to control epistaxis which was inserted in the rectum. The patient subsequent admitted after there appeared to be some initial this diminishment of bleeding. Overnight the patient past several more clots and was continuing to ooze blood per rectum. He was subsequent taken to the endoscopy suite where he underwent epinephrine-based sclerotherapy. There was still a small remnant of polyp tissue present oozing which was cauterized. Due to his location just above the rectum Surgicel was then applied with cessation of blood loss at the time of the procedure. Patient denied chest pain shortness of breath or lightheadednes. Patient had no further bright red blood per rectum. His last stool morning of discharge was brown without evidence for any obvious blood. Vital signs were stable and his hemoglobin was only down slightly to 12.5 from 13 the morning before. He was advised to resume Plavix a week from this coming Friday and to remain off meloxicam utilizing hydrocodone as needed for his rotator cuff related discomfort. He reports no problems with constipation and understands the need to avoid straining at the stool. He is to call my office in 2 months at which time we will need to set him up for surveillance flexible sigmoidoscopy as long as his path report reveals no evidence for for malignancy. Labs (last 24 hrs) Laboratory Tests 09/14/17 05:10: White Blood Count 4.9, Red Blood Count 4.37, Hemoglobin 12.5L, Hematocrit 39L, Mean Corpuscular Volume 89, Mean Corpuscular Hemoglobin 29, Mean Corpuscular Hemoglobin Concent 32, Red Cell Distribution Width 14.9H, Platelet Count 285, Mean Platelet Volume 9.4 Patient resulted labs reviewed. Pending Labs Laboratory Tests 09/14/17 05:10: White Blood Count 4.9, Red Blood Count 4.37, Hemoglobin 12.5, Hematocrit 39, Mean Corpuscular Volume 89, Mean Corpuscular Hemoglobin 29, Mean Corpuscular Hemoglobin Concent 32, Red Cell Distribution Width 14.9, Platelet Count 285, Mean Platelet Volume 9.4 Discussion & Recommendations Discharge Planning: <30 minutes discharge planning Discharge Home Medications: Active Scripts Active Reported Vitamin D2 (Ergocalciferol (Vitamin D2)) 50,000 Unit Capsule 50,000 Unit PO WEEK Vitamin D2 (Ergocalciferol (Vitamin D2)) 2,000 Unit Tablet 2,000 Unit PO DAILY Testosterone Cypionate 200 Mg/1 Ml Vial 100 Mg IM EVERY 2 WEEKS Pamelor (Nortriptyline HCl) 10 Mg Capsule 10 Mg PO HS Cyclobenzaprine HCl 5 Mg Tablet 5 Mg PO DAILY PRN Hydrocodone/Acetaminophen 5/325mg Tablet (Acetaminophen/Hydrocodone Bitart) 1 Each Tablet 1 Tab PO Q12H PRN Atorvastatin Calcium 40 Mg Tablet 40 Mg PO DAILY Furosemide 40 Mg Tablet 40 Mg PO DAILY Potassium Chloride 10 Meq Capsule.er 10 Meq PO DAILY Gabapentin 300 Mg Capsule 600 Mg PO TID take 2 (300mg) tab Instructions to patient/family Please see electronic discharge instructions given to patient. Clinical Quality Measures DVT/VTE Risk/Contraindication: Risk Factor Score Per Nursin RFS Level Per Nursing on Admit: 2=Moderate Copy Copies To 1: KYLIE ZIMMERMAN MD, MARK D MD Sep 14, 2017 11:00
--- NOTE | 2017-09-14 12:27 | OPERATIVE REPORT ---
DATE OF SERVICE: 09/14/2017 FLEXIBLE SIGMOIDOSCOPY SUMMARY I have done the same procedure on this patient on 09/13/2017. This is a separate procedure. The patient was brought back to the endoscopy suite for recurrent lower GI bleeding. He had undergone polypectomy, location along the posterior distal rectal wall. Prior to the procedure, the patient was soaking through multiple depends with dark as well as bright red blood per rectum. This had again occurred just getting him down to the endoscopy suite. He remained, however, hemodynamically stable. Repeat flexible sigmoidoscopy confirmed that there was oozing from the previous polypectomy site and there was also a small amount of remaining adenomatous appearing tissue. Epinephrine based sclerotherapy was injected a total of 5 mL to the base of the polyp and the remaining polyp tissue was then cauterized. Visualization of the site confirmed cessation of bleeding. The patient was transferred back to the fourth floor with stable vital signs, voicing no complaints. Dr. Hollis is the referring physician. Job ID: [id number] DocumentID: [id number] Dictated Date: 09/14/2017 11:36:20 Customer Service Receptionist Date: 09/14/2017 12:26:09 Dictated By: KESHAV CHISHOLM MD [facility]
--- NOTE | 2017-09-23 10:55 | Pre-Op Note & Conscious Sedat ---
Pre-Operative Progress Note H&P Reviewed The H&P was reviewed, patient examined and no changes noted. Date H&P Reviewed: Sep 14, 2017 Time H&P Reviewed: 09:00 Conscious Sedation Pre-Proced ASA Class: 3 Airway Mallampati Classification: (hughes appropriate class) I. II. III, IV Lungs Heart ASA score ASA 1: a normal healthy patient ASA 2: a patient with a mild systemic disease (mid diabetes, controlled hypertension, obesity ASA 3: a patient with a severe systemic disease that limits activity (angina , COPD, prior Myocardial infarction) ASA 4: a patient with an incapacitating disease that is a constant threat to life (CHF, renal failure) ASA 5: a moribund patient not expected to survive 24 hrs. (ruptured aneurysm) ASA 6: a declared brain patient whose organs are being harvested. For emergent operations, add the letter E after the classification Grade 2 Sedation Plan: Analgesia, Amnesia, Plan communicated to team members, Discussed options with patient/fam, Discussed risks with patient/fam Note The patient is an appropriate candidate to undergo the planned procedure, sedation, and anesthesia. The patient immediately re-assessed prior to indication. KESHAV CHISHOLM MD Sep 23, 2017 10:55
== END 2017-09-14 09:50 | disposition home or self-care (01) ==
LOC: EDUNIT# 19:12 → ER 19:13 → UNDOADMOB 22:00 → 4TH 22:00 → SDC 23:05 → 4TH 23:05 → SDC 09-14 09:50 → UNDODISOB 09-14 09:50
PROVIDERS: ATTEND Internal Medicine
DX: D12.8 Benign neoplasm of rectum (principal); K91.840 Postprocedural hemorrhage of a digestive system organ or structure following a digestive system procedure; I25.10 Atherosclerotic heart disease of native coronary artery without angina pectoris; I10 Essential (primary) hypertension; M75.91 Shoulder lesion, unspecified, right shoulder; M75.92 Shoulder lesion, unspecified, left shoulder; E78.5 Hyperlipidemia, unspecified; Z79.02 Long term (current) use of antithrombotics/antiplatelets; Z79.899 Other long term (current) drug therapy; Z95.1 Presence of aortocoronary bypass graft; Z87.891 Personal history of nicotine dependence; Z79.82 Long term (current) use of aspirin
CPT/HCPCS: 36415; 74177; 80048; 80053; 85025; 85027; 85610; 85730; 86850; 86900; 86901; 93041; 96374; 96375; G0378

== ENCOUNTER 2017-10-28 08:30 | Outpatient (RCR) | payer MEDICARE ==
[~2017-10-28 08:30] MED LIST changes: -LOSA25TA21 PO; +LOSA25TA6 PO
== END 2017-11-06 | disposition home or self-care (01) ==
PROVIDERS: ATTEND Orthopaedic Surgery
DX: S46.011D Strain of muscle(s) and tendon(s) of the rotator cuff of right shoulder, subsequent encounter (principal); M25.512 Pain in left shoulder

== ENCOUNTER 2017-11-17 08:32 | Outpatient (RCR) | payer MEDICARE | END 2017-11-23 | disposition home or self-care (01) | PROVIDERS: ATTEND Orthopaedic Surgery | DX: S46.011D Strain of muscle(s) and tendon(s) of the rotator cuff of right shoulder, subsequent encounter (principal); M25.512 Pain in left shoulder ==

== ENCOUNTER → 2017-12-17 | Outpatient (CLI) | payer MEDICARE ==
--- NOTE | 2017-12-17 12:50 | Diagnostic Imaging Report ---
PROCEDURE: MRI lumbar spine. TECHNIQUE: Multiplanar, multisequence MRI of the lumbar spine was performed without contrast. INDICATION: Back pain. COMPARISON: Comparison made with prior examination from 04/02/2012. FINDINGS: The alignment of the lumbar spine is normal. The vertebral body heights are well maintained. There is no spondylolysis or spondylolisthesis. No fractures are identified. Conus medullaris is seen at L1 and is normal in appearance. There is a benign hemangiolipoma in the L3 vertebral body. There are no other marrow signal intensity abnormalities. The T12-L1 disc is unremarkable. At L1-2, there is some mild facet disease. At L2-3, there is slight loss of disc height and signal intensity. There is some mild facet disease. At L3-4, there is slight loss of disc height and signal intensity. There is mild annular bulging. There is some facet disease and thickening of the ligamentum flavum. There is encroachment upon the lateral recess bilaterally. There is moderate bilateral neural foraminal encroachment. At L4-5, there is loss of disc height and signal intensity. There is broad-based annular bulging, facet disease, and thickening of the ligamentum flavum. There is mild central spinal stenosis with encroachment upon the lateral recess bilaterally. There is moderately severe bilateral neural foraminal encroachment. The L5-S1 disc is unremarkable. The abdominal aorta is nonaneurysmal. IMPRESSION: Moderate lumbar spondylosis and multilevel degenerative disc disease as described. Dictated by: Dictated on workstation # [id number]
--- NOTE | 2017-12-17 13:03 | Diagnostic Imaging Report ---
PROCEDURE: MR imaging cervical spine without contrast. TECHNIQUE: Multiplanar, multisequence MR imaging of the cervical spine was performed without contrast. INDICATION: Neck pain. FINDINGS: There is straightening of the normal cervical lordosis. The vertebral body heights are well maintained. The prevertebral soft tissues are within normal limits. Posterior fossa is unremarkable. Visualized portions of the spinal cord are normal in signal intensity and morphology. At C2-C3, there is minimal annular bulging and some posterior facet arthropathy. At C3-C4, there is broad-based annular bulging and bilateral uncovertebral joint hypertrophy. There is moderate spinal stenosis as well as moderate to severe bilateral neuroforaminal encroachment. At C4-C5, there is broad-based annular bulging and bilateral uncovertebral joint hypertrophy. There is mild central spinal stenosis with mild to moderate bilateral neuroforaminal encroachment. At C5-C6, there is broad-based annular bulging and bilateral uncovertebral joint hypertrophy. There is mild central spinal stenosis and moderate bilateral neuroforaminal encroachment. At C6-C7, there is broad-based annular bulging and some left uncovertebral joint hypertrophy. There is slight effacement of ventral thecal sac and moderate left neuroforaminal encroachment. C7-T1 is unremarkable. IMPRESSION: Moderate cervical spondylosis and multilevel degenerative disc disease as described above. Dictated by: Dictated on workstation # [id number]
== END ==
LOC: RAD 10:37
PROVIDERS: ATTEND Nurse Practitioner Family
DX: M47.816 Spondylosis without myelopathy or radiculopathy, lumbar region (principal); M51.36 Other intervertebral disc degeneration, lumbar region; M50.21 Other cervical disc displacement, high cervical region; M99.73 Connective tissue and disc stenosis of intervertebral foramina of lumbar region; M48.02 Spinal stenosis, cervical region; M47.812 Spondylosis without myelopathy or radiculopathy, cervical region; M50.30 Other cervical disc degeneration, unspecified cervical region
CPT/HCPCS: 72141; 72148

== ENCOUNTER 2018-02-20 08:26 | Outpatient (RCR) | payer MEDICARE | END 2018-02-20 09:20 | disposition home or self-care (01) | PROVIDERS: ATTEND Orthopaedic Surgery | DX: S46.011D Strain of muscle(s) and tendon(s) of the rotator cuff of right shoulder, subsequent encounter (principal); M25.512 Pain in left shoulder ==

== ENCOUNTER 2018-06-10 09:30 | Outpatient (CLI) | payer MEDICARE ==
[~2018-06-10] VITALS: Ht 177.8 cm; Wt 91.2 kg
[~2018-06-10 09:30] MED LIST changes: +CLOP75TA69 PO; +LOSA25TA41 PO; -LOSA25TA6 PO
[2018-06-12] MEDS ORDERED: CLOP75TA69 PO (09:00)
== END 2018-06-10 09:38 | disposition home or self-care (01) ==
LOC: PREOP 09:30
PROVIDERS: ATTEND Internal Medicine
DX: Z01.818 Encounter for other preprocedural examination (principal)

== ENCOUNTER 2018-06-12 06:53 | Day surgery (SDC) | payer MEDICARE ==
--- NOTE | 2018-05-22 19:26 | HISTORY AND PHYSICAL ---
DATE OF SERVICE: FLEXIBLE SIGMOIDOSCOPY HISTORY AND PHYSICAL DATE OF ADMISSION: 06/12/2018. HISTORY OF PRESENT ILLNESS: The patient was seen in the office on 05/14/2018 for digital rectal evaluation for followup of a distal rectal villous adenoma. He reports that he has been feeling well. He has noted no bright red blood per rectum or melena. Bowel habits have been normal. He denies diarrhea and has had no urgency of stool or bowel habit change. PAST MEDICAL HISTORY: Significant for villous adenoma of the rectum with no evidence for dysplasia or malignancy. He has a history of carotid bypass surgery in 2000 and left carotid endarterectomy in 2014 and the surgeon recommended that he continue Plavix, which he has continued to take. He is off of aspirin now. PHYSICAL EXAMINATION: GENERAL: Revealed a well-appearing white male in no acute distress. VITAL SIGNS: Blood pressure was 112/72 and weight was stable at 200 pounds. CHEST: Clear. CARDIOVASCULAR: Regular rate and rhythm without murmur, S3 or S4. RECTAL: Digital rectal evaluation was performed and did reveal a soft mobile polypoidal growth along the anterior wall, very suspicious for adenoma recurrence. ASSESSMENT AND PLAN: Digital rectal evaluation suspicious for recurrence of the distal villous adenoma of the rectum. The patient is set up for flexible sigmoidoscopy on 06/12/2018. He is unable to give himself a Fleet's enema, so this will be done by the nursing staff the morning of the procedure. The patient was instructed in verbal and written instructions to discontinue the Plavix on 06/05. Job ID: [id number] DocumentID: [id number] Dictated Date: 05/14/2018 15:40:04 Waste Elimination Date: 05/14/2018 16:07:22 Dictated By: KESHAV CHISHOLM MD
[~2018-06-12] VITALS: Ht 177.8 cm; Wt 91.2 kg
[2018-06-12] MEDS ORDERED: fentaNYL INJECTION 100 MCG/2 ML AMP IVP ONE (07:15)
[2018-06-12] MEDS ORDERED: MIDAZOLAM 2 MG/2 ML (VERSED) VIAL IVP ONE (07:15)
[2018-06-12] MEDS ORDERED: FLEET ENEMA ADULT 1 EA BTL PR ONE (07:15)
[2018-06-12] MEDS ORDERED: D5 LR IV SOLUTION 1,000 ML IV STA (07:15)
[2018-06-12] MEDS ORDERED: LIDOCAINE JELLY 2% 6 ML SYRINGE MM PRN (07:15)
[2018-06-12] MEDS ORDERED: FLEET ENEMA ADULT 1 EA BTL ONE (07:22)
[2018-06-12 07:32] VITALS: BP 135/81
[2018-06-12] MEDS ORDERED: MIDAZOLAM 2 MG/2 ML (VERSED) VIAL ONE (07:47)
[2018-06-12] MEDS ORDERED: LIDOCAINE JELLY 2% 6 ML SYRINGE ONE (07:48)
[2018-06-12] MEDS ORDERED: fentaNYL INJECTION 100 MCG/2 ML AMP ONE (07:48)
--- OUTSIDE RECORDS SUMMARY | 2018-06-12 08:37 | XMS REPORT | CCD ---
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 Name Role Phone PP Unavailable CCM Unavailable Summary Purpose Interface Exchange Insurance Providers Payer name Policy type / Coverage type Covered libertarian ID Effective Begin Date Effective End Date WPS Medicare Part B Medicare Part B [id number] 2017 Unknown [facility] Medicare Part B [id number] 2017 Unknown Family history Father Diagnosis Age At Onset Heart Attack Unknown Social History Social History Element Codes Description Effective Dates Marital status Unknown 03/14/2017 Number of children Unknown 2 03/14/[address]: 7723348 Former smoker Quit 11/03/00; smoke 1/2 pack/day x15 years 03/14/[address]: 785762762 Never drinks alcohol 03/14/2017 Allergies, Adverse Reactions, Alerts Substance Reaction Codes Entered Date Inactivated Date Status * NO KNOWN ENVIRONMENTAL ALLERGIES Unknown 03/14/2017 No Inactive Date Active * NO KNOWN FOOD ALLERGIES Unknown 03/14/2017 No Inactive Date Active * NO KNOWN DRUG ALLERGIES Unknown 03/14/2017 No Inactive Date Active Past Medical History Illness Codes Condition Status Onset Date Resolved Date 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 Active 04/28/2017 Unknown Low back pain ICD-9: 724.2 ICD-10: M54.5 Active 12/15/2017 Unknown Pain in left shoulder ICD-9: 719.41 ICD-10: M25.512 Active 07/24/2017 Unknown Acute recurrent maxillary sinusitis ICD-9: 461.0 ICD-10: J01.01 Active 04/03/2018 Unknown Other allergic rhinitis ICD-9: 477.8 ICD-10: J30.89 Active 10/06/2017 Unknown Sciatica Unknown Active 04/07/2018 Unknown Impacted cerumen, bilateral ICD-9: 380.4 ICD-10: H61.23 Active 03/14/2017 Unknown Sciatica, left side ICD-9: 724.3 ICD-10: M54.32 Active 04/07/2018 Unknown Cough ICD-9: 786.2 ICD-10: R05 Active 04/03/2018 Unknown Cellulitis of face ICD -9: 682.0 ICD-10: L03.211 Active 03/20/2018 Unknown Mixed hyperlipidemia ICD-9: 272.2 ICD-10: E78.2 Active 03/14/2017 Unknown Spinal stenosis, lumbosacral region ICD-9: 724.02 ICD-10: M48.07 Active 12/22/2017 Unknown Acute laryngopharyngitis ICD-9: 465.0 ICD-10: J06.0 Active 10/06/2017 Unknown Other malaise ICD-9: 780.79 ICD-10: R53.81 Active 01/07/2018 Unknown Spinal stenosis, cervical region ICD-9: 723.0 ICD-10: M48.02 Active 12/22/2017 Unknown Cervicalgia ICD-9: 723.1 ICD-10: M54.2 Active 12/15/2017 Unknown Encounter for general adult medical examination with abnormal findings ICD-9: V70.0 ICD-10: Z00.01 Active 11/27/2017 Unknown Encounter for immunization ICD-9: V04.81 ICD-10: Z23 Active 11/17/2017 Unknown Other insomnia ICD-9: 327.09 ICD-10: G47.09 Active 11/17/2017 Unknown Chronic obstructive pulmonary disease, unspecified ICD-9: 496 ICD-10: J44.9 Active 07/14/2017 Unknown Hypoxemia ICD-9: 799.02 ICD-10: R09.02 Active 06/09/2017 Unknown 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 ICD-10: G47.14 Active 04/28/2017 Unknown Secondary polycythemia ICD-9: 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 ICD-10: D75.1 Active 04/28/2017 Unknown 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 ICD-10: I25.10 Active 03/14/2017 Unknown Chronic pain syndrome ICD-9: 338.4 ICD-10: G89.4 Active 03/14/2017 Unknown Personal history of other diseases of the circulatory system ICD-9: V12.59 ICD-10: Z86.79 Active 03/14/2017 Unknown Presbycusis, 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 Active 03/14/2017 Unknown Problems Condition Codes Effective Dates Condition Status 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 04/28/2017 Active Low back pain ICD-9: 724.2 ICD-10: M54.5 12/15/2017 Active Pain in left shoulder ICD-9: 719.41 ICD-10: M25.512 07/24/2017 Active Acute recurrent maxillary sinusitis ICD-9: 461.0 ICD-10: J01.01 04/03/2018 Active Other allergic rhinitis ICD-9: 477.8 ICD-10: J30.89 10/06/2017 Active Sciatica Unknown 04/07/2018 Active Impacted cerumen, bilateral ICD-9: 380.4 ICD-10: H61.23 03/14/2017 Active Sciatica, left side ICD-9: 724.3 ICD-10: M54.32 04/07/2018 Active Cough ICD-9: 786.2 ICD-10: R05 04/03/2018 Active Cellulitis of face ICD -9: 682.0 ICD-10: L03.211 03/20/2018 Active Mixed hyperlipidemia ICD-9: 272.2 ICD-10: E78.2 03/14/2017 Active Spinal stenosis, lumbosacral region ICD-9: 724.02 ICD-10: M48.07 12/22/2017 Active Acute laryngopharyngitis ICD-9: 465.0 ICD-10: J06.0 10/06/2017 Active Other malaise ICD-9: 780.79 ICD-10: R53.81 01/07/2018 Active Spinal stenosis, cervical region ICD-9: 723.0 ICD-10: M48.02 12/22/2017 Active Cervicalgia ICD-9: 723.1 ICD-10: M54.2 12/15/2017 Active Encounter for general adult medical examination with abnormal findings ICD-9: V70.0 ICD-10: Z00.01 11/27/2017 Active Encounter for immunization ICD-9: V04.81 ICD-10: Z23 11/17/2017 Active Other insomnia ICD-9: 327.09 ICD-10: G47.09 11/17/2017 Active Chronic obstructive pulmonary disease, unspecified ICD-9: 496 ICD-10: J44.9 07/14/2017 Active Hypoxemia ICD-9: 799.02 ICD-10: R09.02 06/09/2017 Active 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 ICD-10: G47.14 04/28/2017 Active Secondary polycythemia ICD-9: 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.4 ICD-10: D75.1 04/28/2017 Active 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 ICD-10: I25.10 03/14/2017 Active Chronic pain syndrome ICD-9: 338.4 ICD-10: G89.4 03/14/2017 Active Personal history of other diseases of the circulatory system ICD-9: V12.59 ICD-10: Z86.79 03/14/2017 Active Presbycusis, 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 03/14/2017 Active Medications Medication Codes Instructions Start Date Stop Date Status Fill Instructions testosterone cypionate 200 mg/mL intramuscular oil RxNorm: 9001295 Milliliter(s) IM 06/01/2018 06/01/2018 Inactive hydrocodone 5 mg-acetaminophen 325 mg tablet RxNorm: 403417 1-2 Tablet(s) PO Q6 PRN MAY FILL 04/1905/27/2018 06/25/2018 Active hydrocodone 5 mg-acetaminophen 325 mg tablet RxNorm: 378943 1-2 Tablet(s) PO Q6 PRN MAY FILL 04/1905/18/2018 05/26/2018 Inactive testosterone cypionate 200 mg/mL intramuscular oil RxNorm: 4059901 Milliliter(s) IM 2018 2018 Inactive meloxicam 15 mg tablet RxNorm: 039647 TAKE ONE TABLET BY MOUTH DAILY 04/17/2018 08/14/2018 Active potassium chloride ER 10 mEq capsule,extended release RxNorm: 145947 TAKE ONE CAPSULE BY MOUTH DAILY 04/17/20182018 Active clopidogrel 75 mg tablet RxNorm: 636168 TAKE ONE TABLET BY MOUTH DAILY 04/17/2018 08/14/2018 Active hydrocodone 5 mg-acetaminophen 325 mg tablet RxNorm: 791954 1-2 Tablet(s) PO Q6 PRN MAY 04/1904/16/2018 05/15/2018 Inactive Augmentin 875 mg-125 mg tablet RxNorm: 313608 1 Tablet(s) PO BID 04/15/2018 04/14/2018 Inactive Augmentin 875 mg-125 mg tablet RxNorm: 065452 1 Tablet(s) PO BID 04/15/2018 04/28/2018 Inactive testosterone cypionate 200 mg/mL intramuscular kit RxNorm: 054411 1/2 Milliliter(s ) IM [id number] 04/13/2018 10/09/2018 Active testosterone cypionate 200 mg/mL intramuscular oil RxNorm: 6683608 Milliliter(s) IM 04/13/2018 04/13/2018 Inactive prednisone 20 mg tablet RxNorm: 099409 1 Tablet(s) PO BID 04/0904/13/2018 Inactive Augmentin 875 mg-125 mg tablet RxNorm: 797783 1 Tablet(s) PO BID 04/09/2018 04/11/2018 Inactive Kenalog 40 mg/mL suspension for injection RxNorm: 3369054 1 Milliliter(s) Inj 04/07/2018 04/07/2018 Inactive Kenalog 40 mg/mL suspension for injection RxNorm: 0987778 Milliliter(s) Inj 04/03/2018 04/03/2018 Inactive Augmentin 875 mg-125 mg tablet RxNorm: 862847 1 Tablet(s) PO BID 04/03/2018 04/08/2018 Inactive ceftriaxone 500 mg solution for injection RxNorm: 7539340 Inj 04/03/2018 04/03/2018 Inactive atorvastatin 40 mg tablet RxNorm: 537779 TAKE ONE TABLET BY MOUTH DAILY 03/20/2018 09/10/2019 Active mupirocin 2 % topical ointment RxNorm: 022944 1 Application TOP BID 03/20/2018 03/26/2018 Inactive hydrocodone 5 mg-acetaminophen 325 mg tablet RxNorm: 036479 1-2 Tablet(s) PO Q6 PRN 03/20/2018 04/15/2018 Inactive Keflex 500 mg capsule RxNorm: 769948 1 Capsule(s) PO TID 201803/26/2018 Inactive zolpidem 5 mg tablet RxNorm: 756464 Tablet(s) TAKE ONE TABLET BY MOUTH EVERY NIGHT AT BEDTIME NEEDED 03/18/2018 Active furosemide 40 mg tablet RxNorm: 001695 TAKE ONE TABLET BY MOUTH DAILY 03/17/2018 09/12/2018 Active clopidogrel 75 mg tablet RxNorm: 082371 1 Tablet(s) PO daily 04/15/2018 Inactive testosterone cypionate 200 mg/mL intramuscular oil RxNorm: 2091583 Milliliter(s) IM 03/06/2018 03/06/2018 Inactive testosterone cypionate 200 mg/mL intramuscular oil RxNorm: 5689032 Milliliter(s) IM 02/19/2018 02/19/2018 Inactive hydrocodone 5 mg-acetaminophen 325 mg tablet RxNorm: 856224 1-2 Tablet(s) PO Q6 PRN 02/18/2018 03/09/2018 Inactive zolpidem 5 mg tablet RxNorm: 298155 TAKE ONE TABLET BY MOUTH EVERY NIGHT AT BEDTIME NEEDED 02/13/2018 04/08/2018 Inactive meloxicam 15 mg tablet RxNorm: 508638 TAKE ONE TABLET BY MOUTH DAILY 02/13/2018 04/16/2018 Inactive testosterone cypionate 200 mg/mL intramuscular kit RxNorm: 398347 1/2 Milliliter(s ) IM [id number] 02/03/2018 04/12/2018 Inactive testosterone cypionate 200 mg/mL intramuscular oil RxNorm: 002128 Milliliter(s) IM 02/03/2018 02/03/2018 Inactive cefdinir 300 mg capsule RxNorm: 750443 1 Capsule(s) PO BID 01/18/2018 Inactive prednisone 20 mg tablet RxNorm: 759129 2 Tablet(s) PO QAM 01/0901/08/2018 Inactive cefdinir 300 mg capsule RxNorm: 784822 1 Capsule(s) PO BID 01/08/2018 Inactive prednisone 20 mg tablet RxNorm: 988287 2 Tablet(s) PO QAM 01/0904/08/2018 Inactive Zithromax Z-Timothy 250 mg tablet RxNorm: 891851 1 Tablet(s) PO UD 01/07/2018 04/08/2018 Inactive Kenalog 40 mg/mL suspension for injection RxNorm: 4673337 Milliliter(s) Inj 01/07/2018 01/07/2018 Inactive ceftriaxone 500 mg solution for injection RxNorm: 0708263 Inj 01/07/2018 01/07/2018 Inactive testosterone cypionate 200 mg/mL intramuscular oil RxNorm: 976884 1/2 Milliliter(s ) IM 01/05/2018 01/05/2018 Inactive hydrocodone 5 mg-acetaminophen 325 mg tablet RxNorm: 465445 1-2 Tablet(s) PO Q6 PRN 12/22/2017 02/17/2018 Inactive zolpidem 5 mg tablet RxNorm: 946716 1 Tablet(s) PO 30 min before QHS 12/15/2017 02/12/2018 Inactive testosterone cypionate 200 mg/mL intramuscular oil RxNorm: 680357 Milliliter(s) IM 12/15/2017 12/15/2017 Inactive testosterone cypionate 200 mg/mL intramuscular oil RxNorm: 337583 1/2 Milliliter(s ) IM 12/04/2017 12/04/2017 Inactive testosterone cypionate 200 mg/mL intramuscular oil RxNorm: 055285 1/2 Milliliter(s ) IM 11/17/2017 11/17/2017 Inactive potassium chloride ER 10 mEq capsule,extended release RxNorm: 575659 TAKE ONE CAPSULE BY MOUTH DAILY 11/11/20172018 Inactive testosterone cypionate 200 mg/mL intramuscular oil RxNorm: 896400 Milliliter(s) IM 10/22/2017 10/22/2017 Inactive zolpidem 5 mg tablet RxNorm: 426914 1 Tablet(s) PO 30 min before QHS 10/15/2017 10/14/2017 Inactive zolpidem 5 mg tablet RxNorm: 950372 1 Tablet(s) PO 30 min before QHS 10/15/2017 12/13/2017 Inactive Zithromax Z-Timothy 250 mg tablet RxNorm: 829456 1 Tablet(s) PO UD 10/07/2017 11/16/2017 Inactive testosterone cypionate 200 mg/mL intramuscular oil RxNorm: 788431 Milliliter(s) IM 10/06/2017 10/06/2017 Inactive Kenalog 40 mg/mL suspension for injection RxNorm: 5110287 Milliliter(s) Inj 10/06/2017 10/06/2017 Inactive Zithromax Z-Timothy 250 mg tablet RxNorm: 369947 1 Tablet(s) PO UD 10/06/2017 10/06/2017 Inactive testosterone cypionate 200 mg/mL intramuscular oil RxNorm: 579529 Milliliter(s) IM 09/23/2017 09/23/2017 Inactive testosterone cypionate 200 mg/mL intramuscular kit RxNorm: 300870 1/2 Milliliter(s ) IM [id number] 08/28/2017 02/02/2018 Inactive meloxicam 15 mg tablet RxNorm: 776311 TAKE ONE TABLET BY MOUTH DAILY 08/28/2017 02/12/2018 Inactive testosterone cypionate 200 mg/mL intramuscular oil RxNorm: 440379 Milliliter(s) IM 08/28/2017 08/28/2017 Inactive testosterone cypionate 200 mg/mL intramuscular oil RxNorm: 008401 1/2 Milliliter(s ) IM 08/12/2017 08/12/2017 Inactive meloxicam 15 mg tablet RxNorm: 304073 1 Tablet(s) PO daily 08/201708/27/2017 Inactive atorvastatin 40 mg tablet RxNorm: 301654 TAKE ONE TABLET BY MOUTH DAILY 07/30/2017 02/24/2018 Inactive furosemide 40 mg tablet RxNorm: 004359 TAKE ONE TABLET BY MOUTH DAILY 07/30/2017 02/24/2018 Inactive testosterone cypionate 200 mg/mL intramuscular oil RxNorm: 889222 1/2 Milliliter(s ) IM 07/28/2017 07/28/2017 Inactive testosterone cypionate 200 mg/mL intramuscular oil RxNorm: 788305 1/2 Milliliter(s ) IM 07/14/2017 07/14/2017 Inactive testosterone cypionate 200 mg/mL intramuscular oil RxNorm: 466173 1/2 Milliliter(s ) IM 06/26/2017 06/26/2017 Inactive hydrocodone 5 mg-acetaminophen 325 mg tablet RxNorm: 755620 1 Tablet(s) PO QHS and 1 tab PO daily PRN pain 06/09/2017 Inactive hydrocodone 5 mg-acetaminophen 325 mg tablet RxNorm: 367114 1 Tablet(s) PO daily 06/09/2017 06/18/2017 Inactive testosterone cypionate 200 mg/mL intramuscular oil RxNorm: 480257 1/2 Milliliter(s ) IM 06/09/2017 06/09/2017 Inactive testosterone cypionate 200 mg/mL intramuscular oil RxNorm: 871550 Milliliter(s) IM 05/27/2017 05/27/2017 Inactive testosterone cypionate 200 mg/mL intramuscular oil RxNorm: 518714 Milliliter(s) IM 05/13/2017 05/13/2017 Inactive potassium chloride ER 10 mEq capsule,extended release RxNorm: 117891 1 Capsule(s) PO daily 05/07/2017 11/02/2017 Inactive Vitamin D2 50,000 unit capsule RxNorm: 860581 1 Capsule(s) PO QW 05/06/2017 05/05/2017 Inactive take with OTC vitamin d 2,000 units QD testosterone cypionate 200 mg/mL intramuscular kit RxNorm: 784093 1/2 kit IM 2 x month 05/06/2017 08/27/2017 Inactive Vitamin D2 50,000 unit capsule RxNorm: 583072 1 Capsule(s) PO QW 05/06/2017 08/03/2017 Inactive take with OTC vitamin d 2,000 units QD testosterone cypionate 200 mg/mL intramuscular oil RxNorm: 816272 1/2 Milliliter(s ) IM 04/29/2017 04/29/2017 Inactive fluorouracil 5 % topical cream RxNorm: 465565 1 Application TOP BID 04/28/2017 05/07/2017 Inactive testosterone cypionate 200 mg/mL intramuscular kit RxNorm: 035740 1/2 IM 2 x month 04/28/2017 05/05/2017 Inactive Pamelor 10 mg capsule RxNorm: 890477 1 Capsule(s) PO daily No Start Date Active gabapentin 300 mg capsule RxNorm: 152183 6 Capsule(s) PO daily No Start Date Active cyclobenzaprine 5 mg tablet RxNorm: 513393 1 Tablet(s) PO as needed No Start Date Active diclofenac 1 % topical gel RxNorm: 737374 1 Gram(s) TOP as needed No Start Date Active meloxicam 15 mg tablet RxNorm: 783146 1 Tablet(s) PO daily No Start Date 07/30/2017 Inactive potassium chloride ER 10 mEq tablet,extended release RxNorm: 687918 1 Tablet(s) PO daily No Start Date 05/06/2017 Inactive hydrocodone 5 mg-acetaminophen 325 mg tablet RxNorm: 939251 1 Tablet(s) PO daily No Start Date 06/08/2017 Inactive furosemide 40 mg tablet RxNorm: 668925 1 Tablet(s) PO daily No Start Date 07/29/2017 Inactive atorvastatin 40 mg tablet RxNorm: 089944 1 Tablet(s) PO QHS No Start Date 07/29/2017 Inactive clopidogrel 75 mg tablet RxNorm: 416962 1 Tablet(s) PO daily No Start Date 03/16/2018 Inactive Medication Administered Medication Codes Instructions Start Date Status testosterone cypionate 200 mg/mL intramuscular oil RxNorm: 9805741 Milliliter 06/01/2018 Active testosterone cypionate 200 mg/mL intramuscular oil RxNorm: 1602926 Milliliter 2018 No longer Active testosterone cypionate 200 mg/mL intramuscular oil RxNorm: 4364543 Milliliter 04/13/2018 No longer Active Kenalog 40 mg/mL suspension for injection RxNorm: 8670801 1Milliliter 04/07/2018 No longer Active Kenalog 40 mg/mL suspension for injection RxNorm: 6742642 Milliliter 04/03/2018 No longer Active ceftriaxone 500 mg solution for injection RxNorm: 9241507 04/03/2018 No longer Active testosterone cypionate 200 mg/mL intramuscular oil RxNorm: 9095236 Milliliter 03/06/2018 No longer Active testosterone cypionate 200 mg/mL intramuscular oil RxNorm: 2731185 Milliliter 02/19/2018 No longer Active testosterone cypionate 200 mg/mL intramuscular oil RxNorm: 866671 Milliliter 02/03/2018 No longer Active Kenalog 40 mg/mL suspension for injection RxNorm: 7098021 Milliliter 01/07/2018 No longer Active ceftriaxone 500 mg solution for injection RxNorm: 1705154 01/07/2018 No longer Active testosterone cypionate 200 mg/mL intramuscular oil RxNorm: 314800 /2Milliliter 01/05/2018 No longer Active testosterone cypionate 200 mg/mL intramuscular oil RxNorm: 180388 Milliliter 12/15/2017 No longer Active testosterone cypionate 200 mg/mL intramuscular oil RxNorm: 587824 /2Milliliter 12/04/2017 No longer Active testosterone cypionate 200 mg/mL intramuscular oil RxNorm: 327073 1/2Milliliter 11/17/2017 No longer Active testosterone cypionate 200 mg/mL intramuscular oil RxNorm: 289125 Milliliter 10/22/2017 No longer Active Kenalog 40 mg/mL suspension for injection RxNorm: 6993322 Milliliter 10/06/2017 No longer Active testosterone cypionate 200 mg/mL intramuscular oil RxNorm: 246372 Milliliter 10/06/2017 No longer Active testosterone cypionate 200 mg/mL intramuscular oil RxNorm: 912437 Milliliter 09/23/2017 No longer Active testosterone cypionate 200 mg/mL intramuscular oil RxNorm: 996799 Milliliter 08/28/2017 No longer Active testosterone cypionate 200 mg/mL intramuscular oil RxNorm: 312816 2Milliliter 08/12/2017 No longer Active testosterone cypionate 200 mg/mL intramuscular oil RxNorm: 949872 2Milliliter 07/28/2017 No longer Active testosterone cypionate 200 mg/mL intramuscular oil RxNorm: 479283 /2Milliliter 07/14/2017 No longer Active testosterone cypionate 200 mg/mL intramuscular oil RxNorm: 655114 /2Milliliter 06/26/2017 No longer Active testosterone cypionate 200 mg/mL intramuscular oil RxNorm: 399311 /2Milliliter 06/09/2017 No longer Active testosterone cypionate 200 mg/mL intramuscular oil RxNorm: 299449 Milliliter 05/27/2017 No longer Active testosterone cypionate 200 mg/mL intramuscular oil RxNorm: 401555 Milliliter 05/13/2017 No longer Active testosterone cypionate 200 mg/mL intramuscular oil RxNorm: 770338 1/2Milliliter 04/29/2017 No longer Active Immunizations Vaccine Codes Date Status Influenza CVX: 141 11/17/2017 completed Assessments Condition Codes Effective Dates 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 ICD-9: 257.2 06/01/2018 Low back pain ICD-10: M54.5 ICD-9: 724.2 05/27/2018 Pain in left shoulder ICD-10: M25.512 ICD-9: 719.41 05/27/2018 Acute recurrent maxillary sinusitis ICD-10: J01.01 ICD-9: 461.0 04/09/2018 Other allergic rhinitis ICD-10: J30.89 ICD-9: 477.8 04/09/2018 Sciatica, left side ICD-10: M54.32 ICD-9: 724.3 04/07/2018 Cough ICD-10: R05 ICD-9: 786.2 04/03/2018 Cellulitis of face ICD-10: L03.211 ICD-9: 682.0 03/20/2018 Mixed hyperlipidemia ICD-10: E78.2 ICD-9: 272.2 03/10/2018 Spinal stenosis, lumbosacral region ICD-10: M48.07 ICD-9: 724.02 03/10/2018 Other malaise ICD-10: R53.81 ICD-9: 780.79 01/07/2018 Acute laryngopharyngitis ICD-10: J06.0 ICD-9: 465.0 01/07/2018 Spinal stenosis, cervical region ICD-10: M48.02 ICD-9: 723.0 12/22/2017 Cervicalgia ICD-10: M54.2 ICD-9: 723.1 12/15/2017 Encounter for general adult medical examination with abnormal findings ICD-10: Z00.01 ICD-9: V70.0 11/27/2017 Encounter for immunization ICD-10: Z23 ICD-9: V04.81 11/17/2017 Other insomnia ICD-10: G47.09 ICD-9: 327.09 11/17/2017 Chronic obstructive pulmonary disease, unspecified ICD-10: J44.9 ICD-9: 496 07/14/2017 Hypoxemia ICD-10: R09.02 ICD-9: 799.02 06/09/2017 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 ICD-9: 327.14 04/28/2017 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 ICD-9: 238.4 04/28/2017 Impacted cerumen, bilateral ICD-10: H61.23 ICD-9: 380.4 03/17/2017 Atherosclerotic heart disease of [place] coronary artery without angina pectoris ICD-10: I25.10 ICD-9: 414.00 03/14/2017 Chronic pain syndrome ICD-10: G89.4 ICD-9: 338.4 03/14/2017 Personal history of other diseases of the circulatory system ICD-10: Z86.79 ICD-9: V12.59 03/14/2017 Presbycusis, bilateral ICD-10: H91.13 ICD-9: 388.01 03/14/2017 Reason For Visit Reason For Visit Effective Dates Notes back pain 05/27/2018 cough 04/09/2018 back pain 04/07/2018 fever 04/03/2018 skin lesion 03/20/2018 back pain 03/10/2018 sinus congestion 01/07/2018 back pain 12/22/2017 back pain 12/15/2017 Annual Medicare Wellness Exam 11/27/2017 shoulder pain 11/17/2017 sinus congestion 10/06/2017 shoulder pain 07/24/2017 abnormal test results 07/14/2017 fatigue 06/09/2017 fatigue 04/28/2017 hyperlipidemia 03/14/2017 R ear Results Observation Observation Code Item Item Code Result Date Testosterone Kxy677 Testo 375.1 ng/dL 03/02/2018 Cbc With Differential Ord2 WBC 10.28 K/ul 03/02/2018 Cbc With Differential Ord2 RBC 5.74 M/ul 03/02/2018 Cbc With Differential Ord2 HGB 14.7 g/dl 03/02/2018 Cbc With Differential Ord2 HCT 47.5 % 03/02/2018 Cbc With Differential Ord2 Neut% 75.9 % 03/02/2018 Cbc With Differential Ord2 MCV 82.8 fl 03/02/2018 Cbc With Differential Ord2 Lymph% 13.7 % 03/02/2018 Cbc With Differential Ord2 MCH 25.6 pg 03/02/2018 Cbc With Differential Ord2 [place]% 7.9 % 03/02/2018 Cbc With Differential Ord2 MCHC 30.9 pg 03/02/2018 Cbc With Differential Ord2 Eos% 2.0 % 03/02/2018 Cbc With Differential Ord2 PLT 306 K/ul 03/02/2018 Cbc With Differential Ord2 Baso% 0.5 % 03/02/2018 Cbc With Differential Ord2 RDW 19.9 % 03/02/2018 Cbc With Differential Ord2 Neut ABS# 7.80 K/ul 03/02/2018 Cbc With Differential Ord2 Lymph ABS# 1.41 K/ul 03/02/2018 Cbc With Differential Ord2 [place] ABS# 0.8 K/ul 03/02/2018 Cbc With Differential Ord2 Eos ABS# 0.2 K/ul 03/02/2018 Cbc With Differential Ord2 Baso ABS# 0.1 K/ul 03/02/2018 Influenza A+B Cov861 Influ A+B Negative 01/08/2018 C A/B FLU [id number] Influenza A Scr TNP:Improper Specimen 01/07 C A/B FLU [id number] Influenza B Scr TNP:Improper Specimen 01/07 C A/B FLU [id number] Influenza Intrp B AG: PRID:PT:NOSE:NOM:IF TNP:Improper Specimen 01/07/2018 C A/B FLU [id number] IC OK? TNP:Improper Specimen 01/07/2018 Hepatic Iep260 ALBUMIN 3.7 g/dL 08/06/2017 Hepatic Prm706 TPRO 5.9 g/dL 08/06/2017 Hepatic Sfn275 GLOB 2.2 g/dL 08/06/2017 Hepatic Ajt819 A/G Ratio 1.7 Ratio 08/06/2017 Hepatic Niw095 ALK PHOS 46 U/L 08/06/2017 Hepatic Rky456 ALT(SGPT) 9 U/L 08/06/2017 Hepatic Mdr363 AST(SGOT) 13 U/L 08/06/2017 Hepatic Baj852 BILI T 0.6 mg/dL 08/06/2017 Hepatic Zep435 BILI D 0.2 mg/dL 08/06/2017 Hepatic Aqq298 BILI I 0.4 mg/dL 08/06/2017 Testosterone Dop530 Testo 474.5 ng/dL 08/06/2017 Cbc With Differential Ord2 WBC 5.27 K/ul 08/06/2017 Cbc With Differential Ord2 RBC 5.51 M/ul 08/06/2017 Cbc With Differential Ord2 HGB 15.7 g/dl 08/06/2017 Cbc With Differential Ord2 HCT 48.6 % 08/06/2017 Cbc With Differential Ord2 Neut% 57.6 % 08/06/2017 Cbc With Differential Ord2 MCV 88.2 fl 08/06/2017 Cbc With Differential Ord2 Lymph% 25.2 % 08/06/2017 Cbc With Differential Ord2 MCH 28.5 pg 08/06/2017 Cbc With Differential Ord2 [place]% 11.2 % 08/06/2017 Cbc With Differential Ord2 MCHC 32.3 pg 08/06/2017 Cbc With Differential Ord2 Eos% 4.9 % 08/06/2017 Cbc With Differential Ord2 PLT 335 K/ul 08/06/2017 Cbc With Differential Ord2 Baso% 1.1 % 08/06/2017 Cbc With Differential Ord2 RDW 14.2 % 08/06/2017 Cbc With Differential Ord2 Neut ABS# 3.03 K/ul 08/06/2017 Cbc With Differential Ord2 Lymph ABS# 1.33 K/ul 08/06/2017 Cbc With Differential Ord2 [place] ABS# 0.6 K/ul 08/06/2017 Cbc With Differential Ord2 Eos ABS# 0.3 K/ul 08/06/2017 Cbc With Differential Ord2 Baso ABS# 0.1 K/ul 08/06/2017 Comp Metabolic Tor922 NA 140 mEq/L 06/02/2017 Comp Metabolic Nrn514 K 3.8 mEq/L 06/02/2017 Comp Metabolic Pjm019 CL 102 mEq/L 06/02/2017 Comp Metabolic Tlu629 CO2 30.0 mEq/L 06/02/2017 Comp Metabolic Pvi894 ANION GAP 12 06/02/2017 Comp Metabolic Fcz534 GLUCOSE 100 mg/dL 06/02/2017 Comp Metabolic Onu448 Creat 1.1 mg/dL 06/02/2017 Comp Metabolic Dtl914 eGFR 69 ml/min/1.73m2 06/02/2017 Comp Metabolic Kcl623 BUN 15 mg/dL 06/02/2017 Comp Metabolic Iia886 B/C Ratio 13.4 Ratio 06/02/2017 Comp Metabolic Cjs857 CALCIUM 8.6 mg/dL 06/02/2017 Comp Metabolic Ggs441 ALK PHOS 63 U/L 06/02/2017 Comp Metabolic Xxp881 AST(SGOT) 17 U/L 06/02/2017 Comp Metabolic Tog422 ALT(SGPT) 12 U/L 06/02/2017 Comp Metabolic Pxm719 BILI T 0.5 mg/dL 06/02/2017 Comp Metabolic Ths718 ALBUMIN 3.9 g/dL 06/02/2017 Comp Metabolic Bft027 TPRO 6.1 g/dL 06/02/2017 Comp Metabolic Qjs214 GLOB 2.2 g/dL 06/02/2017 Comp Metabolic Nds621 A/G Ratio 1.8 Ratio 06/02/2017 Comp Metabolic [id number] Osmo 280 mOsmo 06/02/2017 Vitamin D 25 Oh [id number] VITAMIN D, 25 HYDROXY 40.03 ng/mL Cbc With Differential Ord2 WBC 5.23 K/ul 06/02/2017 Cbc With Differential Ord2 RBC 5.29 M/ul 06/02/2017 Cbc With Differential Ord2 HGB 15.7 g/dl 06/02/2017 Cbc With Differential Ord2 HCT 49.2 % 06/02/2017 Cbc With Differential Ord2 Neut% 56.0 % 06/02/2017 Cbc With Differential Ord2 MCV 93.0 fl 06/02/2017 Cbc With Differential Ord2 Lymph% 29.1 % 06/02/2017 Cbc With Differential Ord2 MCH 29.7 pg 06/02/2017 Cbc With Differential Ord2 [place]% 10.5 % 06/02/2017 Cbc With Differential Ord2 MCHC 31.9 pg 06/02/2017 Cbc With Differential Ord2 Eos% 3.3 % 06/02/2017 Cbc With Differential Ord2 PLT 267 K/ul 06/02/2017 Cbc With Differential Ord2 Baso% 1.1 % 06/02/2017 Cbc With Differential Ord2 RDW 13.8 % 06/02/2017 Cbc With Differential Ord2 Neut ABS# 2.93 K/ul 06/02/2017 Cbc With Differential Ord2 Lymph ABS# 1.52 K/ul 06/02/2017 Cbc With Differential Ord2 [place] ABS# 0.6 K/ul 06/02/2017 Cbc With Differential Ord2 Eos ABS# 0.2 K/ul 06/02/2017 Cbc With Differential Ord2 Baso ABS# 0.1 K/ul 06/02/2017 Testosterone [id number] Testo 198.4 ng/dL 04/29/2017 Vitamin D 25 Oh [id number] VITAMIN D, 25 HYDROXY 29.25 ng/mL Lipid Ord30 CHOL 159 mg/dL 04/29/2017 Lipid Ord30 HDL 46.0 mg/dl 04/29/2017 Lipid Ord30 TRIG 134 mg/dL 04/29/2017 Lipid Ord30 LDL 86 mg/dL 04/29/2017 Lipid Ord30 C/HDL 3.5 Ratio 04/29/2017 Tsh Ord6 TSH (3rd IS) 3.28 uIU/mL 04/29/2017 Review of Systems System Result Effective Dates Constitutional No recent illness 2018 Constitutional No chills 05/27/2018 Constitutional No diaphoresis 05/27/2018 Constitutional No fever 05/27/2018 Eyes No blindness 05/27/2018 Ears/Nose/Throat/Neck No nasal discharge 05/27/2018 Cardiovascular No chest pain/pressure 04/2018 Cardiovascular No dyspnea 05/27/2018 Respiratory No cough 05/27/2018 Respiratory No dyspnea 05/27/2018 Neurologic No alteration of consciousness 05/27/2018 Neurologic No mental status change 2018 Musculoskeletal stiffness 05/27/2018 Musculoskeletal shoulder pain 05/27/2018 Musculoskeletal back pain 05/27/2018 Gastrointestinal No abdominal pain 2018 Psychiatric No anxiety 05/27/2018 Psychiatric No depression 05/27/2018 Constitutional recent illness 04/09/2018 Constitutional No anorexia 04/09/2018 Constitutional No night sweats 2018 Constitutional chills 04/09/2018 Constitutional diaphoresis 04/09/2018 Constitutional fatigue 04/09/2018 Constitutional fever 04/09/2018 Constitutional No insomnia 04/09/2018 Constitutional No malaise 04/09/2018 Constitutional No weight loss 04/09/2018 Constitutional No weight gain 04/09/2018 Eyes No eye discharge 04/09/2018 Eyes No eye erythema 04/09/2018 Ears/Nose/Throat/Neck nasal discharge Ears/Nose/Throat/Neck sinus congestion Ears/Nose/Throat/Neck sore throat 2018 Respiratory cough 04/09/2018 Gastrointestinal No constipation 2018 Gastrointestinal No diarrhea 04/09/2018 Gastrointestinal No nausea 04/09/2018 Gastrointestinal No vomiting 04/09/2018 Genitourinary/Nephrology No dysuria 04/09 Musculoskeletal No joint complaint 2018 Dermatologic No rash 04/09/2018 Neurologic No alteration of consciousness 04/09/2018 Constitutional No recent illness 2018 Constitutional No anorexia 04/07/2018 Constitutional No night sweats 2018 Constitutional No chills 04/07/2018 Constitutional No diaphoresis 04/07/2018 Constitutional No fatigue 04/07/2018 Constitutional No fever 04/07/2018 Constitutional No insomnia 04/07/2018 Constitutional No malaise 04/07/2018 Ears/Nose/Throat/Neck No dizziness 2018 Ears/Nose/Throat/Neck No headache 2018 Cardiovascular hypertension 04/07/2018 Respiratory No chest congestion 2018 Respiratory No cough 04/07/2018 Gastrointestinal No constipation 2018 Gastrointestinal No diarrhea 04/07/2018 Gastrointestinal No nausea 04/07/2018 Gastrointestinal No vomiting 04/07/2018 Genitourinary/Nephrology No dysuria 04/07 Genitourinary/Nephrology No urinary incontinence 04/07/2018 Musculoskeletal back pain 04/07/2018 Musculoskeletal myalgias 04/07/2018 Musculoskeletal neck pain 04/07/2018 Musculoskeletal sciatica 04/07/2018 Musculoskeletal shoulder pain 04/07/2018 Dermatologic No rash 04/07/2018 Psychiatric No anxiety 04/07/2018 Psychiatric No depression 04/07/2018 Psychiatric No confusion 04/07/2018 Constitutional recent illness 04/03/2018 Constitutional No anorexia 04/03/2018 Constitutional No night sweats 2018 Constitutional chills 04/03/2018 Constitutional diaphoresis 04/03/2018 Constitutional fatigue 04/03/2018 Constitutional fever 04/03/2018 Constitutional No insomnia 04/03/2018 Constitutional No malaise 04/03/2018 Constitutional No weight loss 04/03/2018 Constitutional No weight gain 04/03/2018 Eyes No eye erythema 04/03/2018 Eyes No eye discharge 04/03/2018 Ears/Nose/Throat/Neck nasal discharge 09/2018 Ears/Nose/Throat/Neck sinus congestion Ears/Nose/Throat/Neck sore throat 2018 Respiratory cough 04/03/2018 Gastrointestinal No vomiting 04/03/2018 Gastrointestinal No nausea 04/03/2018 Gastrointestinal No constipation 2018 Gastrointestinal No diarrhea 04/03/2018 Genitourinary/Nephrology No dysuria 04/03 Musculoskeletal No joint complaint 2018 Dermatologic No rash 04/03/2018 Neurologic No alteration of consciousness 04/03/2018 Constitutional No recent illness 2018 Constitutional No anorexia 03/20/2018 Constitutional No night sweats 2018 Constitutional No chills 03/20/2018 Constitutional No diaphoresis 03/20/2018 Constitutional No fatigue 03/20/2018 Constitutional No fever 03/20/2018 Constitutional No insomnia 03/20/2018 Constitutional No malaise 03/20/2018 Constitutional No weight loss 03/20/2018 Constitutional No weight gain 03/20/2018 Musculoskeletal joint complaint 2018 Dermatologic sores 03/20/2018 Constitutional No recent illness 2018 Constitutional No anorexia 03/10/2018 Constitutional No night sweats 2018 Constitutional No chills 03/10/2018 Constitutional No diaphoresis 03/10/2018 Constitutional No fatigue 03/10/2018 Constitutional No fever 03/10/2018 Constitutional No insomnia 03/10/2018 Constitutional No malaise 03/10/2018 Ears/Nose/Throat/Neck No dizziness 2018 Ears/Nose/Throat/Neck No headache 2018 Gastrointestinal No constipation 2018 Gastrointestinal No diarrhea 03/10/2018 Gastrointestinal No nausea 03/10/2018 Gastrointestinal No vomiting 03/10/2018 Genitourinary/Nephrology No dysuria 03/10 Genitourinary/Nephrology No urinary incontinence 03/10/2018 Musculoskeletal back pain 03/10/2018 Musculoskeletal myalgias 03/10/2018 Musculoskeletal neck pain 03/10/2018 Musculoskeletal sciatica 03/10/2018 Musculoskeletal shoulder pain 03/10/2018 Dermatologic No rash 03/10/2018 Psychiatric No anxiety 03/10/2018 Psychiatric No depression 03/10/2018 Psychiatric No confusion 03/10/2018 Respiratory No cough 03/10/2018 Respiratory No chest congestion 2018 Cardiovascular hypertension 03/10/2018 Constitutional recent illness 01/07/2018 Constitutional chills 01/07/2018 Constitutional No diaphoresis 01/07/2018 Eyes No eye erythema 01/07/2018 Ears/Nose/Throat/Neck nasal allergies Ears/Nose/Throat/Neck nasal discharge Ears/Nose/Throat/Neck postnasal drip Ears/Nose/Throat/Neck sinus congestion Ears/Nose/Throat/Neck sore throat 2017 Cardiovascular No chest pain/pressure Cardiovascular No dyspnea 01/07/2018 Respiratory No chest congestion 2017 Respiratory cough 01/07/2018 Respiratory No dyspnea 01/07/2018 Gastrointestinal No constipation 2017 Gastrointestinal No diarrhea 01/07/2018 Gastrointestinal No nausea 01/07/2018 Gastrointestinal No vomiting 01/07/2018 Dermatologic No rash 01/07/2018 Neurologic No alteration of consciousness 01/07/2018 Neurologic No mental status change 2017 Constitutional No fever 01/07/2018 Constitutional No recent illness 2017 Constitutional No anorexia 12/22/2017 Constitutional No night sweats 2017 Constitutional No chills 12/22/2017 Constitutional No diaphoresis 12/22/2017 Constitutional No fatigue 12/22/2017 Constitutional No fever 12/22/2017 Constitutional No insomnia 12/22/2017 Constitutional No malaise 12/22/2017 Constitutional No weight loss 12/22/2017 Constitutional No weight gain 12/22/2017 Ears/Nose/Throat/Neck No dizziness 2017 Ears/Nose/Throat/Neck No headache 2017 Gastrointestinal No constipation 2017 Gastrointestinal No diarrhea 12/22/2017 Gastrointestinal No nausea 12/22/2017 Gastrointestinal No vomiting 12/22/2017 Genitourinary/Nephrology No dysuria 12/22 Genitourinary/Nephrology No urinary incontinence 12/22/2017 Musculoskeletal back pain 12/22/2017 Musculoskeletal neck pain 12/22/2017 Musculoskeletal sciatica 12/22/2017 Dermatologic No rash 12/22/2017 Musculoskeletal myalgias 12/22/2017 Musculoskeletal shoulder pain 12/22/2017 Constitutional No recent illness 2017 Constitutional No anorexia 12/15/2017 Constitutional No night sweats 2017 Constitutional No chills 12/15/2017 Constitutional No diaphoresis 12/15/2017 Constitutional No fatigue 12/15/2017 Constitutional No fever 12/15/2017 Constitutional No insomnia 12/15/2017 Constitutional No malaise 12/15/2017 Constitutional No weight loss 12/15/2017 Constitutional No weight gain 12/15/2017 Musculoskeletal back pain 12/15/2017 Musculoskeletal neck pain 12/15/2017 Musculoskeletal sciatica 12/15/2017 Dermatologic No rash 12/15/2017 Genitourinary/Nephrology No dysuria 12/15 Gastrointestinal No vomiting 12/15/2017 Gastrointestinal No nausea 12/15/2017 Gastrointestinal No diarrhea 12/15/2017 Gastrointestinal No constipation 2017 Genitourinary/Nephrology No urinary incontinence 12/15/2017 Ears/Nose/Throat/Neck No dizziness 2017 Ears/Nose/Throat/Neck No headache 2017 Constitutional No recent illness 2017 Constitutional No chills 11/27/2017 Constitutional No diaphoresis 11/27/2017 Constitutional No fever 11/27/2017 Eyes No eye erythema 11/27/2017 Ears/Nose/Throat/Neck No nasal discharge 11/27/2017 Cardiovascular No chest pain/pressure 05/2017 Cardiovascular No dyspnea 11/27/2017 Respiratory No cough 11/27/2017 Respiratory No dyspnea 11/27/2017 Neurologic No alteration of consciousness 11/27/2017 Neurologic No mental status change 2017 Constitutional No recent illness 2017 Constitutional No chills 11/17/2017 Constitutional No fever 11/17/2017 Eyes No blindness 11/17/2017 Ears/Nose/Throat/Neck No nasal discharge 11/17/2017 Cardiovascular No chest pain/pressure Cardiovascular No dyspnea 11/17/2017 Respiratory No cough 11/17/2017 Respiratory No dyspnea 11/17/2017 Musculoskeletal shoulder pain 11/17/2017 Constitutional fatigue 11/17/2017 Constitutional No insomnia 11/17/2017 Constitutional No malaise 11/17/2017 Eyes No vision change 11/17/2017 Ears/Nose/Throat/Neck No dizziness 2017 Ears/Nose/Throat/Neck No dysphagia 2017 Ears/Nose/Throat/Neck No headache 2017 Ears/Nose/Throat/Neck hearing loss 2017 Ears/Nose/Throat/Neck No nasal allergies 11/17/2017 Ears/Nose/Throat/Neck No sore throat Ears/Nose/Throat/Neck No sinus congestion 11/17/2017 Cardiovascular No edema 11/17/2017 Cardiovascular No exercise intolerance Cardiovascular No fatigue 11/17/2017 Cardiovascular No near-syncope/dizziness 11/17/2017 Respiratory No chest tightness 2017 Respiratory No pedal edema 11/17/2017 Gastrointestinal No abdominal pain 2017 Gastrointestinal No constipation 2017 Gastrointestinal No diarrhea 11/17/2017 Gastrointestinal No gastroesophageal reflux 11/17/2017 Gastrointestinal No nausea 11/17/2017 Gastrointestinal No vomiting 11/17/2017 Genitourinary/Nephrology No dysuria 11/17 Genitourinary/Nephrology No nocturia Genitourinary/Nephrology No urinary incontinence 11/17/2017 Musculoskeletal No stiffness 11/17/2017 Musculoskeletal No swelling 11/17/2017 Musculoskeletal No muscle weakness 2017 Musculoskeletal No myalgias 11/17/2017 Neurologic No dizziness 11/17/2017 Neurologic No headache 11/17/2017 Neurologic No syncope 11/17/2017 Psychiatric No anxiety 11/17/2017 Psychiatric No depression 11/17/2017 Musculoskeletal joint complaint 2017 Constitutional recent illness 10/06/2017 Constitutional chills 10/06/2017 Constitutional No diaphoresis 10/06/2017 Constitutional fever 10/06/2017 Eyes No eye erythema 10/06/2017 Ears/Nose/Throat/Neck nasal allergies Ears/Nose/Throat/Neck nasal discharge Ears/Nose/Throat/Neck postnasal drip Ears/Nose/Throat/Neck sinus congestion Ears/Nose/Throat/Neck sore throat 2017 Cardiovascular No chest pain/pressure Cardiovascular No dyspnea 10/06/2017 Respiratory No chest congestion 2017 Respiratory cough 10/06/2017 Respiratory No dyspnea 10/06/2017 Gastrointestinal No constipation 2017 Gastrointestinal No diarrhea 10/06/2017 Gastrointestinal No nausea 10/06/2017 Gastrointestinal No vomiting 10/06/2017 Dermatologic No rash 10/06/2017 Neurologic No alteration of consciousness 10/06/2017 Neurologic No mental status change 2017 Constitutional No recent illness 2017 Constitutional No chills 07/24/2017 Constitutional No fever 07/24/2017 Eyes No eye erythema 07/24/2017 Ears/Nose/Throat/Neck No nasal discharge 07/24/2017 Cardiovascular No chest pain/pressure Cardiovascular No dyspnea 07/24/2017 Respiratory No cough 07/24/2017 Respiratory No dyspnea 07/24/2017 Neurologic No alteration of consciousness 07/24/2017 Neurologic No mental status change 2017 Musculoskeletal shoulder pain 07/24/2017 Constitutional No recent illness 2017 Constitutional No chills 07/14/2017 Constitutional fatigue 07/14/2017 Constitutional No fever 07/14/2017 Constitutional No insomnia 07/14/2017 Constitutional No malaise 07/14/2017 Eyes No vision change 07/14/2017 Ears/Nose/Throat/Neck No dizziness 2017 Ears/Nose/Throat/Neck No dysphagia 2017 Ears/Nose/Throat/Neck No headache 2017 Ears/Nose/Throat/Neck hearing loss 2017 Ears/Nose/Throat/Neck No nasal allergies 07/14/2017 Ears/Nose/Throat/Neck No sore throat Ears/Nose/Throat/Neck No sinus congestion 07/14/2017 Cardiovascular No dyspnea 07/14/2017 Cardiovascular No edema 07/14/2017 Cardiovascular No exercise intolerance Cardiovascular No fatigue 07/14/2017 Cardiovascular No near-syncope/dizziness 07/14/2017 Respiratory No chest tightness 2017 Respiratory No cough 07/14/2017 Respiratory No dyspnea 07/14/2017 Respiratory No pedal edema 07/14/2017 Gastrointestinal No abdominal pain 2017 Gastrointestinal No constipation 2017 Gastrointestinal No diarrhea 07/14/2017 Gastrointestinal No gastroesophageal reflux 07/14/2017 Gastrointestinal No nausea 07/14/2017 Gastrointestinal No vomiting 07/14/2017 Genitourinary/Nephrology No dysuria 07/14 Genitourinary/Nephrology No nocturia Genitourinary/Nephrology No urinary incontinence 07/14/2017 Musculoskeletal No stiffness 07/14/2017 Musculoskeletal No swelling 07/14/2017 Musculoskeletal No muscle weakness 2017 Musculoskeletal No myalgias 07/14/2017 Dermatologic No rash 07/14/2017 Dermatologic No sores 07/14/2017 Neurologic No dizziness 07/14/2017 Neurologic No headache 07/14/2017 Neurologic No neck pain 07/14/2017 Neurologic No syncope 07/14/2017 Psychiatric No anxiety 07/14/2017 Psychiatric No depression 07/14/2017 Musculoskeletal joint complaint 2017 Constitutional No recent illness 2017 Constitutional No chills 06/09/2017 Constitutional fatigue 06/09/2017 Constitutional No fever 06/09/2017 Constitutional No insomnia 06/09/2017 Constitutional No malaise 06/09/2017 Eyes No vision change 06/09/2017 Ears/Nose/Throat/Neck No dizziness 2017 Ears/Nose/Throat/Neck No dysphagia 2017 Ears/Nose/Throat/Neck No headache 2017 Ears/Nose/Throat/Neck hearing loss 2017 Ears/Nose/Throat/Neck No nasal allergies 06/09/2017 Ears/Nose/Throat/Neck No sore throat Ears/Nose/Throat/Neck No sinus congestion 06/09/2017 Cardiovascular No dyspnea 06/09/2017 Cardiovascular No edema 06/09/2017 Cardiovascular No exercise intolerance Cardiovascular No fatigue 06/09/2017 Cardiovascular No near-syncope/dizziness 06/09/2017 Respiratory No chest tightness 2017 Respiratory No cough 06/09/2017 Respiratory No dyspnea 06/09/2017 Respiratory No pedal edema 06/09/2017 Gastrointestinal No abdominal pain 2017 Gastrointestinal No constipation 2017 Gastrointestinal No diarrhea 06/09/2017 Gastrointestinal No gastroesophageal reflux 06/09/2017 Gastrointestinal No nausea 06/09/2017 Gastrointestinal No vomiting 06/09/2017 Genitourinary/Nephrology No dysuria 06/09 Genitourinary/Nephrology No nocturia Genitourinary/Nephrology No urinary incontinence 06/09/2017 Musculoskeletal No stiffness 06/09/2017 Musculoskeletal No swelling 06/09/2017 Musculoskeletal No muscle weakness 2017 Musculoskeletal No myalgias 06/09/2017 Dermatologic No rash 06/09/2017 Dermatologic No sores 06/09/2017 Neurologic No dizziness 06/09/2017 Neurologic No headache 06/09/2017 Neurologic No neck pain 06/09/2017 Neurologic No syncope 06/09/2017 Psychiatric No anxiety 06/09/2017 Psychiatric No depression 06/09/2017 Constitutional No recent illness 2017 Constitutional No chills 04/28/2017 Constitutional fatigue 04/28/2017 Constitutional No fever 04/28/2017 Constitutional No insomnia 04/28/2017 Constitutional No malaise 04/28/2017 Eyes No vision change 04/28/2017 Ears/Nose/Throat/Neck No dizziness 2017 Ears/Nose/Throat/Neck No dysphagia 2017 Ears/Nose/Throat/Neck No headache 2017 Ears/Nose/Throat/Neck hearing loss 2017 Ears/Nose/Throat/Neck No nasal allergies 04/28/2017 Ears/Nose/Throat/Neck No sore throat 06/2017 Ears/Nose/Throat/Neck No sinus congestion 04/28/2017 Cardiovascular No dyspnea 04/28/2017 Cardiovascular No edema 04/28/2017 Cardiovascular No exercise intolerance Cardiovascular No fatigue 04/28/2017 Cardiovascular No near-syncope/dizziness 04/28/2017 Respiratory No chest tightness 2017 Respiratory No cough 04/28/2017 Respiratory No dyspnea 04/28/2017 Respiratory No pedal edema 04/28/2017 Gastrointestinal No abdominal pain 2017 Gastrointestinal No constipation 2017 Gastrointestinal No diarrhea 04/28/2017 Gastrointestinal No gastroesophageal reflux 04/28/2017 Gastrointestinal No nausea 04/28/2017 Gastrointestinal No vomiting 04/28/2017 Genitourinary/Nephrology No dysuria 04/28 Genitourinary/Nephrology No nocturia 06/2017 Genitourinary/Nephrology No urinary incontinence 04/28/2017 Musculoskeletal No stiffness 04/28/2017 Musculoskeletal No swelling 04/28/2017 Musculoskeletal No muscle weakness 2017 Musculoskeletal No myalgias 04/28/2017 Dermatologic No rash 04/28/2017 Dermatologic No sores 04/28/2017 Neurologic No dizziness 04/28/2017 Neurologic No headache 04/28/2017 Neurologic No neck pain 04/28/2017 Neurologic No syncope 04/28/2017 Psychiatric No anxiety 04/28/2017 Psychiatric No depression 04/28/2017 Constitutional No recent illness 2017 Constitutional No [...] Exam - General 1994 Constitutional general appearance Overall: well developed 05/27/2018 None Full Exam - General 1994 Constitutional general appearance Overall: in no acute distress 05/27/2018 None Full Exam - General 1994 Constitutional general appearance Overall: well nourished 05/27/2018 None Full Exam - General 1994 Eyes conjunctiva /eyelids Overall: conjunctiva clear 05/27/2018 None Full Exam - General 1994 Eyes conjunctiva /eyelids Overall: eyelids normal 05/27/2018 None Full Exam - General 1994 Ears/Nose/Throat lips/teeth/gingiva Overall: benign lips 05/27/2018 None Full Exam - General 1994 Respiratory respiratory effort/rhythm Overall: no retractions 05/27/2018 None Full Exam - General 1994 Respiratory respiratory effort/rhythm Overall: normal rate 05/27/2018 None Full Exam - General 1994 Musculoskeletal head and neck Overall: head atraumatic 05/27/2018 None Full Exam - General 1994 Neurologic cranial nerves Overall: crainial nerves 2 - 12 grossly intact 05/27/2018 None Full Exam - General 1994 Psychiatric orientation/consciousness Overall: oriented to person, place and time 05/27/2018 None Full Exam - General 1994 Psychiatric mood and affect Overall: normal mood and affect 05/27/2018 None Full Exam - General 1994 Psychiatric appearance Overall: well-groomed, good eye contact 05/27/2018 None Full Exam - ENT Constitutional general appearance Overall: well nourished 04/09/2018 None Full Exam - ENT Constitutional general appearance Overall: well developed 04/09/2018 None Full Exam - ENT Constitutional general appearance Overall: in no acute distress 04/09/2018 None Full Exam - ENT Ears/Nose/Throat otoscopic exam Overall: external auditory canals normal 04/09/2018 None Full Exam - ENT Ears/Nose/Throat otoscopic exam Overall: tympanic membranes normal 04/09/2018 None Full Exam - ENT Ears/Nose/Throat oropharynx Overall: oral mucosa clear 04/09/2018 None Full Exam - ENT Face and Head palpation Left maxillary sinus: tender 04/09/2018 --Improved Full Exam - ENT Face and Head palpation Right maxillary sinus: tender 04/09/2018 --Improved Full Exam - ENT Respiratory inspection Overall: no retractions 04/09/2018 None Full Exam - ENT Respiratory inspection Overall: normal rate None Full Exam - ENT Respiratory auscultation Overall: breath sounds clear bilaterally 04/09/2018 None Full Exam - ENT Cardiovascular auscultation of heart Overall: regular rate 04/09/2018 None Full Exam - ENT Cardiovascular auscultation of heart Overall: normal heart sounds 04/09/2018 None Full Exam - ENT Lymphatic palpation of lymph nodes Overall: shotty lymphadenopathy 04/09/2018 None Full Exam - ENT Integument inspection of skin Overall: no rash, lesions 04/09/2018 None Full Exam - ENT Neurologic orientation Overall: oriented to person, place and time 04/09/2018 None Full Exam - General 1994 Constitutional general appearance Development: well developed 04/07/2018 None Full Exam - General 1994 Constitutional general appearance Development: appears stated age 0204/07/2018 None Full Exam - General 1994 Constitutional general appearance Hygiene/Attention to Grooming: good hygiene 04/07/2018 None Full Exam - General 1994 Eyes conjunctiva /eyelids Overall: conjunctiva clear 04/07/2018 None Full Exam - General 1994 Eyes conjunctiva /eyelids Overall: cornea clear 04/07/2018 None Full Exam - General 1994 Eyes conjunctiva /eyelids Overall: eyelids normal 04/07/2018 None Full Exam - General 1994 Eyes pupils and irises Overall: pupils equal, round, reactive to light and accomodation 04/07/2018 None Full Exam - General 1995 Ears/Nose/Throat lips/teeth/gingiva Overall: benign lips 04/07/2018 None Full Exam - General 1995 Ears/Nose/Throat lips/teeth/gingiva Overall: normal dentition 04/07/2018 None Full Exam - General 1995 Ears/Nose/Throat oral cavity/pharynx/larynx Overall: oral mucosa clear 04/07/2018 None Full Exam - General 1994 Ears/Nose/Throat oral cavity/pharynx/larynx Overall: oropharyngeal mucosa clear 04/07/2018 None Full Exam - General 1995 Ears/Nose/Throat oral cavity/pharynx/larynx Overall: hypopharynx benign 04/07/2018 None Full Exam - General 1994 Ears/Nose/Throat oral cavity/pharynx/larynx Overall: no masses 04/07/2018 None Full Exam - General 1994 Respiratory auscultation Overall: breath sounds clear bilaterally 04/07/2018 None Full Exam - General 1994 Respiratory respiratory effort/rhythm Overall: no retractions 04/07/2018 None Full Exam - General 1994 Respiratory respiratory effort/rhythm Overall: normal rate 04/07/2018 None Full Exam - General 1994 Cardiovascular extremities Overall: no clubbing 04/07/2018 None Full Exam - General 1994 Cardiovascular auscultation of heart Overall: regular rate 04/07/2018 None Full Exam - General 1994 Cardiovascular auscultation of heart Overall: normal heart sounds 04/07/2018 None Full Exam - General 1994 Lymphatic neck nodes Overall: anterior cervical chain benign 04/07/2018 None Full Exam - General 1994 Lymphatic neck nodes Overall: posterior cervical chain benign 04/07/2018 None Full Exam - General 1994 Musculoskeletal spine, ribs and pelvis Overall: good posture 04/07/2018 None Full Exam - General 1994 Musculoskeletal spine, ribs and pelvis Sacroiliac joints: tender left sacroiliac joint 04/07/2018 None Full Exam - General 1994 Musculoskeletal head and neck Overall: head atraumatic 04/07/2018 None Full Exam - General 1994 Musculoskeletal head and neck Overall: cervical spine benign 04/07/2018 None Full Exam - General 1994 Neurologic cranial nerves Overall: crainial nerves 2 - 12 grossly intact 04/07/2018 None Full Exam - General 1994 Psychiatric orientation/consciousness Overall: oriented to person, place and time 04/07/2018 None Full Exam - General 1994 Psychiatric mood and affect Overall: normal mood and affect 04/07/2018 None Full Exam - ENT Constitutional general appearance Overall: well nourished 04/03/2018 None Full Exam - ENT Constitutional general appearance Overall: well developed 04/03/2018 None Full Exam - ENT Constitutional general appearance Overall: in no acute distress 04/03/2018 None Full Exam - ENT Ears/Nose/Throat otoscopic exam Overall: external auditory canals normal 04/03/2018 None Full Exam - ENT Ears/Nose/Throat otoscopic exam Overall: tympanic membranes normal 04/03/2018 None Full Exam - ENT Ears/Nose/Throat oropharynx Overall: oral mucosa clear 04/03/2018 None Full Exam - ENT Face and Head palpation Left maxillary sinus: tender 04/03/2018 None Full Exam - ENT Face and Head palpation Right maxillary sinus: tender 04/03/2018 None Full Exam - ENT Respiratory auscultation Overall: breath sounds clear bilaterally 04/03/2018 None Full Exam - ENT Respiratory inspection Overall: no retractions 04/03/2018 None Full Exam - ENT Respiratory inspection Overall: normal rate 09/2018 None Full Exam - ENT Cardiovascular auscultation of heart Overall: regular rate 04/03/2018 None Full Exam - ENT Cardiovascular auscultation of heart Overall: normal heart sounds 04/03/2018 None Full Exam - ENT Lymphatic palpation of lymph nodes Overall: shotty lymphadenopathy 04/03/2018 None Full Exam - ENT Integument inspection of skin Overall: no rash, lesions 04/03/2018 None Full Exam - ENT Neurologic orientation Overall: oriented to person, place and time 04/03/2018 None Full Exam - Dermatology Constitutional general appearance Overall: well nourished 03/20/2018 None Full Exam - Dermatology Constitutional general appearance Overall: well developed 03/20/2018 None Full Exam - Dermatology Constitutional general appearance Overall: in no acute distress 03/20/2018 None Full Exam - Dermatology Constitutional general appearance Overall: of normal body habitus 03/20/2018 None Full Exam - Dermatology Constitutional general appearance Overall: well groomed 03/20/2018 None Full Exam - Dermatology Psychiatric orientation Overall: oriented to person, place and time 03/20/2018 None Full Exam - Dermatology Integument insp & palp - head/face Lesion: papule 03/20/2018 None Full Exam - Dermatology Integument insp & palp - head/face Distribution: localized 03/20/2018 None Full Exam - Dermatology Integument insp & palp - head/face Location: on the right cheek 03/20/2018 None Full Exam - Dermatology Integument insp & palp - head/face Color: erythematous 03/20/2018 scabbed Full Exam - Dermatology Musculoskeletal left upper extremity Palpation - left shoulder: pain with resisted external rotation 03/20/2018 None Full Exam - Dermatology Musculoskeletal left upper extremity ROM - left shoulder: decreased abduction 03/20/2018 None Full Exam - Dermatology Musculoskeletal left upper extremity ROM - left shoulder: decreased adduction 03/20/2018 None Full Exam - Dermatology Respiratory auscultation Overall: breath sounds clear bilaterally 03/20/2018 None Full Exam - Dermatology Respiratory respiratory effort/rhythm Overall: no retractions 03/20/2018 None Full Exam - Dermatology Respiratory respiratory effort/rhythm Overall: normal rate 03/20/2018 None Full Exam - Dermatology Eyes conjunctiva/ eyelids Overall: clear conjunctiva bilaterally 03/20/2018 None Full Exam - Dermatology Ears/Nose/Throat oropharynx Overall: clear oral mucosa 03/20/2018 None Full Exam - Dermatology Extremities inspection & palpation billateral lower extremities no clubbing or cyanosis 03/20/2018 None Full Exam - General 1994 Constitutional general appearance Development: well developed 03/10/2018 None Full Exam - General 1994 Constitutional general appearance Development: appears stated age 0103/10/2018 None Full Exam - General 1994 Constitutional general appearance Hygiene/Attention to Grooming: good hygiene 03/10/2018 None Full Exam - General 1994 Eyes conjunctiva /eyelids Overall: conjunctiva clear 03/10/2018 None Full Exam - General 1994 Eyes conjunctiva /eyelids Overall: cornea clear 03/10/2018 None Full Exam - General 1994 Eyes conjunctiva /eyelids Overall: eyelids normal 03/10/2018 None Full Exam - General 1994 Eyes pupils and irises Overall: pupils equal, round, reactive to light and accomodation 03/10/2018 None Full Exam - General 1994 Ears/Nose/Throat lips/teeth/gingiva Overall: benign lips 03/10/2018 None Full Exam - General 1994 Ears/Nose/Throat lips/teeth/gingiva Overall: normal dentition 03/10/2018 None Full Exam - General 1994 Ears/Nose/Throat oral cavity/pharynx/larynx Overall: oral mucosa clear 03/10/2018 None Full Exam - General 1994 Ears/Nose/Throat oral cavity/pharynx/larynx Overall: oropharyngeal mucosa clear 03/10/2018 None Full Exam - General 1994 Ears/Nose/Throat oral cavity/pharynx/larynx Overall: hypopharynx benign 03/10/2018 None Full Exam - General 1994 Ears/Nose/Throat oral cavity/pharynx/larynx Overall: no masses 03/10/2018 None Full Exam - General 1994 Respiratory auscultation Overall: breath sounds clear bilaterally 03/10/2018 None Full Exam - General 1994 Respiratory respiratory effort/rhythm Overall: no retractions 03/10/2018 None Full Exam - General 1994 Respiratory respiratory effort/rhythm Overall: normal rate 03/10/2018 None Full Exam - General 1994 Cardiovascular extremities Overall: no clubbing 03/10/2018 None Full Exam - General 1994 Cardiovascular auscultation of heart Overall: regular rate 03/10/2018 None Full Exam - General 1994 Cardiovascular auscultation of heart Overall: normal heart sounds 03/10/2018 None Full Exam - General 1994 Lymphatic neck nodes Overall: anterior cervical chain benign 03/10/2018 None Full Exam - General 1994 Lymphatic neck nodes Overall: posterior cervical chain benign 03/10/2018 None Full Exam - General 1994 Musculoskeletal spine, ribs and pelvis Overall: good posture 03/10/2018 None Full Exam - General 1994 Musculoskeletal spine, ribs and pelvis Sacroiliac joints: tender right sacroiliac joint 03/10/2018 None Full Exam - General 1994 Musculoskeletal spine, ribs and pelvis Sacroiliac joints: tender left sacroiliac joint 03/10/2018 None Full Exam - General 1994 Musculoskeletal head and neck Overall: head atraumatic 03/10/2018 None Full Exam - General 1994 Musculoskeletal head and neck Overall: cervical spine benign 03/10/2018 None Full Exam - General 1994 Neurologic cranial nerves Overall: crainial nerves 2 - 12 grossly intact 03/10/2018 None Full Exam - General 1994 Psychiatric orientation/consciousness Overall: oriented to person, place and time 03/10/2018 None Full Exam - General 1994 Psychiatric mood and affect Overall: normal mood and affect 03/10/2018 None Full Exam - ENT Constitutional general appearance Overall: well nourished 01/07/2018 None Full Exam - ENT Constitutional general appearance Overall: well developed 01/07/2018 None Full Exam - ENT Constitutional general appearance Overall: in no acute distress 01/07/2018 None Full Exam - ENT Ears/Nose/Throat otoscopic exam Overall: external auditory canals normal 01/07/2018 None Full Exam - ENT Ears/Nose/Throat otoscopic exam Left tympanic membrane: air -fluid level 01/07/2018 None Full Exam - ENT Ears/Nose/Throat otoscopic exam Right tympanic membrane: air-fluid level 01/07/2018 None Full Exam - ENT Ears/Nose/Throat lips/ teeth/gingiva Overall: benign lips 01/07/2018 None Full Exam - ENT Ears/Nose/Throat oropharynx Overall: oral mucosa clear 01/07/2018 None Full Exam - ENT Ears/Nose/Throat oropharynx Posterior Pharynx: clear post nasal drainage 01/07/2018 None Full Exam - ENT Ears/Nose/Throat oropharynx Posterior Pharynx: erythema 01/07/2018 None Full Exam - ENT Respiratory inspection Overall: no retractions 01/07/2018 None Full Exam - ENT Respiratory inspection Overall: normal rate None Full Exam - ENT Respiratory auscultation Overall: breath sounds clear bilaterally 01/07/2018 None Full Exam - ENT Cardiovascular auscultation of heart Rate: normal rate 01/07/2018 None Full Exam - ENT Cardiovascular auscultation of heart Rhythm: regular rhythm 01/07/2018 None Full Exam - ENT Lymphatic palpation of lymph nodes Overall: anterior cervical chain benign 01/07/2018 None Full Exam - ENT Lymphatic palpation of lymph nodes Overall: posterior cervical chain benign 01/07/2018 None Full Exam - ENT Neurologic mood and affect Overall: normal mood 01/07/2018 None Full Exam - ENT Neurologic mood and affect Overall: normal affect 01/07/2018 None Full Exam - ENT Neurologic orientation Overall: oriented to person, place and time 01/07/2018 None Full Exam - ENT Respiratory auscultation Left lower lung field: rhonchi 01/07/2018 None Full Exam - General 1994 Constitutional general appearance Development: well developed 12/22/2017 None Full Exam - General 1994 Constitutional general appearance Development: appears stated age 1012/22/2017 None Full Exam - General 1994 Constitutional general appearance Hygiene/Attention to Grooming: good hygiene 12/22/2017 None Full Exam - General 1994 Eyes conjunctiva /eyelids Overall: conjunctiva clear 12/22/2017 None Full Exam - General 1994 Eyes conjunctiva /eyelids Overall: cornea clear 12/22/2017 None Full Exam - General 1994 Eyes conjunctiva /eyelids Overall: eyelids normal 12/22/2017 None Full Exam - General 1994 Eyes pupils and irises Overall: pupils equal, round, reactive to light and accomodation 12/22/2017 None Full Exam - General 1994 Ears/Nose/Throat lips/teeth/gingiva Overall: benign lips 12/22/2017 None Full Exam - General 1994 Ears/Nose/Throat lips/teeth/gingiva Overall: normal dentition 12/22/2017 None Full Exam - General 1994 Ears/Nose/Throat oral cavity/pharynx/larynx Overall: oral mucosa clear 12/22/2017 None Full Exam - General 1994 Ears/Nose/Throat oral cavity/pharynx/larynx Overall: oropharyngeal mucosa clear 12/22/2017 None Full Exam - General 1994 Ears/Nose/Throat oral cavity/pharynx/larynx Overall: hypopharynx benign 12/22/2017 None Full Exam - General 1994 Ears/Nose/Throat oral cavity/pharynx/larynx Overall: no masses 12/22/2017 None Full Exam - General 1994 Respiratory auscultation Overall: breath sounds clear bilaterally 12/22/2017 None Full Exam - General 1994 Respiratory respiratory effort/rhythm Overall: no retractions 12/22/2017 None Full Exam - General 1994 Respiratory respiratory effort/rhythm Overall: normal rate 12/22/2017 None Full Exam - General 1994 Cardiovascular extremities Overall: no clubbing 12/22/2017 None Full Exam - General 1994 Cardiovascular auscultation of heart Overall: regular rate 12/22/2017 None Full Exam - General 1994 Cardiovascular auscultation of heart Overall: normal heart sounds 12/22/2017 None Full Exam - General 1994 Lymphatic neck nodes Overall: anterior cervical chain benign 12/22/2017 None Full Exam - General 1994 Lymphatic neck nodes Overall: posterior cervical chain benign 12/22/2017 None Full Exam - General 1994 Musculoskeletal spine, ribs and pelvis Overall: good posture 12/22/2017 None Full Exam - General 1994 Musculoskeletal spine, ribs and pelvis Sacroiliac joints: tender right sacroiliac joint 12/22/2017 None Full Exam - General 1994 Musculoskeletal spine, ribs and pelvis Sacroiliac joints: tender left sacroiliac joint 12/22/2017 None Full Exam - General 1994 Musculoskeletal head and neck Overall: head atraumatic 12/22/2017 None Full Exam - General 1994 Musculoskeletal head and neck Overall: cervical spine benign 12/22/2017 None Full Exam - General 1994 Neurologic cranial nerves Overall: crainial nerves 2 - 12 grossly intact 12/22/2017 None Full Exam - General 1994 Psychiatric orientation/consciousness Overall: oriented to person, place and time 12/22/2017 None Full Exam - General 1994 Psychiatric mood and affect Overall: normal mood and affect 12/22/2017 None Full Exam - General 1994 Constitutional general appearance Development: well developed 12/15/2017 None Full Exam - General 1994 Constitutional general appearance Development: appears stated age 1012/15/2017 None Full Exam - General 1994 Constitutional general appearance Hygiene/Attention to Grooming: good hygiene 12/15/2017 None Full Exam - General 1994 Eyes conjunctiva /eyelids Overall: conjunctiva clear 12/15/2017 None Full Exam - General 1994 Eyes conjunctiva /eyelids Overall: cornea clear 12/15/2017 None Full Exam - General 1994 Eyes conjunctiva /eyelids Overall: eyelids normal 12/15/2017 None Full Exam - General 1994 Eyes pupils and irises Overall: pupils equal, round, reactive to light and accomodation 12/15/2017 None Full Exam - General 1994 Ears/Nose/Throat lips/teeth/gingiva Overall: benign lips 12/15/2017 None Full Exam - General 1994 Ears/Nose/Throat lips/teeth/gingiva Overall: normal dentition 12/15/2017 None Full Exam - General 1994 Ears/Nose/Throat oral cavity/pharynx/larynx Overall: oral mucosa clear 12/15/2017 None Full Exam - General 1994 Ears/Nose/Throat oral cavity/pharynx/larynx Overall: oropharyngeal mucosa clear 12/15/2017 None Full Exam - General 1994 Ears/Nose/Throat oral cavity/pharynx/larynx Overall: hypopharynx benign 12/15/2017 None Full Exam - General 1994 Ears/Nose/Throat oral cavity/pharynx/larynx Overall: no masses 12/15/2017 None Full Exam - General 1994 Respiratory auscultation Overall: breath sounds clear bilaterally 12/15/2017 None Full Exam - General 1994 Respiratory respiratory effort/rhythm Overall: no retractions 12/15/2017 None Full Exam - General 1994 Respiratory respiratory effort/rhythm Overall: normal rate 12/15/2017 None Full Exam - General 1994 Cardiovascular extremities Overall: no clubbing 12/15/2017 None Full Exam - General 1994 Cardiovascular auscultation of heart Overall: regular rate 12/15/2017 None Full Exam - General 1994 Cardiovascular auscultation of heart Overall: normal heart sounds 12/15/2017 None Full Exam - General 1994 Lymphatic neck nodes Overall: anterior cervical chain benign 12/15/2017 None Full Exam - General 1994 Lymphatic neck nodes Overall: posterior cervical chain benign 12/15/2017 None Full Exam - General 1994 Musculoskeletal spine, ribs and pelvis Overall: good posture 12/15/2017 None Full Exam - General 1994 Musculoskeletal head and neck Overall: head atraumatic 12/15/2017 None Full Exam - General 1994 Musculoskeletal head and neck Overall: cervical spine benign 12/15/2017 None Full Exam - General 1994 Neurologic cranial nerves Overall: crainial nerves 2 - 12 grossly intact 12/15/2017 None Full Exam - General 1994 Psychiatric orientation/consciousness Overall: oriented to person, place and time 12/15/2017 None Full Exam - General 1994 Psychiatric mood and affect Overall: normal mood and affect 12/15/2017 None Full Exam - General 1994 Musculoskeletal spine, ribs and pelvis Sacroiliac joints: tender left sacroiliac joint 12/15/2017 None Full Exam - General 1994 Musculoskeletal spine, ribs and pelvis Sacroiliac joints: tender right sacroiliac joint 12/15/2017 None Full Exam - General 1994 Constitutional general appearance Overall: well developed 11/27/2017 None Full Exam - General 1994 Constitutional general appearance Overall: in no acute distress 11/27/2017 None Full Exam - General 1994 Constitutional general appearance Overall: well nourished 11/27/2017 None Full Exam - General 1994 Eyes conjunctiva /eyelids Overall: conjunctiva clear 11/27/2017 None Full Exam - General 1994 Eyes conjunctiva /eyelids Overall: eyelids normal 11/27/2017 None Full Exam - General 1994 Ears/Nose/Throat lips/teeth/gingiva Overall: benign lips 11/27/2017 None Full Exam - General 1994 Respiratory respiratory effort/rhythm Overall: no retractions 11/27/2017 None Full Exam - General 1994 Respiratory respiratory effort/rhythm Overall: normal rate 11/27/2017 None Full Exam - General 1994 Musculoskeletal head and neck Overall: head atraumatic 11/27/2017 None Full Exam - General 1994 Neurologic cranial nerves Overall: crainial nerves 2 - 12 grossly intact 11/27/2017 None Full Exam - General 1994 Psychiatric orientation/consciousness Overall: oriented to person, place and time 11/27/2017 None Full Exam - General 1994 Psychiatric mood and affect Overall: normal mood and affect 11/27/2017 None Full Exam - General 1994 Psychiatric appearance Overall: well-groomed, good eye contact 11/27/2017 None Full Exam - General 1994 Constitutional general appearance Development: well developed 11/17/2017 None Full Exam - General 1994 Constitutional general appearance Development: appears stated age 0911/17/2017 None Full Exam - General 1994 Constitutional general appearance Hygiene/Attention to Grooming: good hygiene 11/17/2017 None Full Exam - General 1994 Eyes conjunctiva /eyelids Overall: conjunctiva clear 11/17/2017 None Full Exam - General 1994 Eyes conjunctiva /eyelids Overall: cornea clear 11/17/2017 None Full Exam - General 1994 Eyes conjunctiva /eyelids Overall: eyelids normal 11/17/2017 None Full Exam - General 1994 Eyes pupils and irises Overall: pupils equal, round, reactive to light and accomodation 11/17/2017 None Full Exam - General 1994 Ears/Nose/Throat lips/teeth/gingiva Overall: benign lips 11/17/2017 None Full Exam - General 1994 Ears/Nose/Throat lips/teeth/gingiva Overall: normal dentition 11/17/2017 None Full Exam - General 1994 Ears/Nose/Throat oral cavity/pharynx/larynx Overall: oral mucosa clear 11/17/2017 None Full Exam - General 1994 Ears/Nose/Throat oral cavity/pharynx/larynx Overall: oropharyngeal mucosa clear 11/17/2017 None Full Exam - General 1994 Ears/Nose/Throat oral cavity/pharynx/larynx Overall: hypopharynx benign 11/17/2017 None Full Exam - General 1994 Ears/Nose/Throat oral cavity/pharynx/larynx Overall: no masses 11/17/2017 None Full Exam - General 1994 Respiratory auscultation Overall: breath sounds clear bilaterally 11/17/2017 None Full Exam - General 1994 Respiratory respiratory effort/rhythm Overall: no retractions 11/17/2017 None Full Exam - General 1994 Respiratory respiratory effort/rhythm Overall: normal rate 11/17/2017 None Full Exam - General 1994 Cardiovascular inspection of carotid pulses Carotid pulse: carotid bruit 11/17/2017 None Full Exam - General 1994 Cardiovascular extremities Overall: no clubbing 11/17/2017 None Full Exam - General 1994 Cardiovascular auscultation of heart Overall: regular rate 11/17/2017 None Full Exam - General 1994 Cardiovascular auscultation of heart Overall: normal heart sounds 11/17/2017 None Full Exam - General 1994 Lymphatic neck nodes Overall: anterior cervical chain benign 11/17/2017 None Full Exam - General 1994 Lymphatic neck nodes Overall: posterior cervical chain benign 11/17/2017 None Full Exam - General 1994 Musculoskeletal spine, ribs and pelvis Overall: good posture 11/17/2017 None Full Exam - General 1994 Musculoskeletal head and neck Overall: head atraumatic 11/17/2017 None Full Exam - General 1994 Musculoskeletal head and neck Overall: cervical spine benign 11/17/2017 None Full Exam - General 1994 Neurologic cranial nerves Overall: crainial nerves 2 - 12 grossly intact 11/17/2017 None Full Exam - General 1994 Psychiatric orientation/consciousness Overall: oriented to person, place and time 11/17/2017 None Full Exam - General 1994 Psychiatric mood and affect Overall: normal mood and affect 11/17/2017 None Full Exam - General 1994 Musculoskeletal upper extremity ROM - shoulder: crepitus 11/17/2017 None Full Exam - ENT Constitutional general appearance Overall: well nourished 10/06/2017 None Full Exam - ENT Constitutional general appearance Overall: well developed 10/06/2017 None Full Exam - ENT Constitutional general appearance Overall: in no acute distress 10/06/2017 None Full Exam - ENT Ears/Nose/Throat otoscopic exam Overall: external auditory canals normal 10/06/2017 None Full Exam - ENT Ears/Nose/Throat otoscopic exam Left tympanic membrane: air -fluid level 10/06/2017 None Full Exam - ENT Ears/Nose/Throat otoscopic exam Right tympanic membrane: air-fluid level 10/06/2017 None Full Exam - ENT Ears/Nose/Throat lips/ teeth/gingiva Overall: benign lips 10/06/2017 None Full Exam - ENT Ears/Nose/Throat oropharynx Overall: oral mucosa clear 10/06/2017 None Full Exam - ENT Ears/Nose/Throat oropharynx Posterior Pharynx: clear post nasal drainage 10/06/2017 None Full Exam - ENT Ears/Nose/Throat oropharynx Posterior Pharynx: erythema 10/06/2017 None Full Exam - ENT Respiratory inspection Overall: no retractions 10/06/2017 None Full Exam - ENT Respiratory inspection Overall: normal rate None Full Exam - ENT Respiratory auscultation Overall: breath sounds clear bilaterally 10/06/2017 None Full Exam - ENT Cardiovascular auscultation of heart Rate: normal rate 10/06/2017 None Full Exam - ENT Cardiovascular auscultation of heart Rhythm: regular rhythm 10/06/2017 None Full Exam - ENT Lymphatic palpation of lymph nodes Overall: anterior cervical chain benign 10/06/2017 None Full Exam - ENT Lymphatic palpation of lymph nodes Overall: posterior cervical chain benign 10/06/2017 None Full Exam - ENT Neurologic mood and affect Overall: normal mood 10/06/2017 None Full Exam - ENT Neurologic mood and affect Overall: normal affect 10/06/2017 None Full Exam - ENT Neurologic orientation Overall: oriented to person, place and time 10/06/2017 None Full Exam - Orthopedics Constitutional general appearance Overall: well nourished 07/24/2017 None Full Exam - Orthopedics Constitutional general appearance Overall: well developed 07/24/2017 None Full Exam - Orthopedics Constitutional general appearance Overall: in no acute distress 07/24/2017 None Full Exam - Orthopedics Eyes conjunctiva/ eyelids Overall: conjunctiva clear 07/24/2017 None Full Exam - Orthopedics Eyes conjunctiva/ eyelids Overall: eyelids normal 07/24/2017 None Full Exam - Orthopedics Ears/Nose/Throat lips/teeth/gingiva Overall: benign lips 07/24/2017 None Full Exam - Orthopedics Ears/Nose/Throat oral cavity/pharynx/larynx Overall: oral mucosa clear 07/24/2017 None Full Exam - Orthopedics Respiratory respiratory effort/rhythm Overall: no retractions 07/24/2017 None Full Exam - Orthopedics Respiratory respiratory effort/rhythm Overall: normal rate 07/24/2017 None Full Exam - Orthopedics Psychiatric orientation/consciousness Overall: oriented to person, place and time 07/24/2017 None Full Exam - Orthopedics Psychiatric mood and affect Overall: normal mood and affect 07/24/2017 None Full Exam - Orthopedics Psychiatric appearance Overall: well-groomed, good eye contact 07/24/2017 None Full Exam - Orthopedics MS: left upper extremity insp & palp - LUE Shoulder: glenohumeral joint tenderness 07/24/2017 None Full Exam - Orthopedics MS: left upper extremity insp & palp - LUE Shoulder: acromioclavicular joint tenderness 07/24/2017 None Full Exam - Orthopedics MS: left upper extremity range of motion - LUE Shoulder: pain with abduction 07/24/2017 None Full Exam - Orthopedics MS: left upper extremity range of motion - LUE Shoulder: pain with adduction 07/24/2017 None Full Exam - Orthopedics MS: left upper extremity range of motion - LUE Shoulder: pain with internal rotation 07/24/2017 None Full Exam - Orthopedics MS: left upper extremity range of motion - LUE Shoulder: pain with external rotation 07/24/2017 None Full Exam - General 1994 Constitutional general appearance Development: well developed 07/14/2017 None Full Exam - General 1994 Constitutional general appearance Development: appears stated age 0507/14/2017 None Full Exam - General 1994 Constitutional general appearance Hygiene/Attention to Grooming: good hygiene 07/14/2017 None Full Exam - General 1994 Eyes conjunctiva /eyelids Overall: conjunctiva clear 07/14/2017 None Full Exam - General 1994 Eyes conjunctiva /eyelids Overall: cornea clear 07/14/2017 None Full Exam - General 1994 Eyes conjunctiva /eyelids Overall: eyelids normal 07/14/2017 None Full Exam - General 1994 Eyes pupils and irises Overall: pupils equal, round, reactive to light and accomodation 07/14/2017 None Full Exam - General 1994 Ears/Nose/Throat lips/teeth/gingiva Overall: benign lips 07/14/2017 None Full Exam - General 1994 Ears/Nose/Throat lips/teeth/gingiva Overall: normal dentition 07/14/2017 None Full Exam - General 1994 Ears/Nose/Throat oral cavity/pharynx/larynx Overall: oral mucosa clear 07/14/2017 None Full Exam - General 1994 Ears/Nose/Throat oral cavity/pharynx/larynx Overall: oropharyngeal mucosa clear 07/14/2017 None Full Exam - General 1994 Ears/Nose/Throat oral cavity/pharynx/larynx Overall: hypopharynx benign 07/14/2017 None Full Exam - General 1994 Ears/Nose/Throat oral cavity/pharynx/larynx Overall: no masses 07/14/2017 None Full Exam - General 1994 Respiratory auscultation Overall: breath sounds clear bilaterally 07/14/2017 None Full Exam - General 1994 Respiratory respiratory effort/rhythm Overall: no retractions 07/14/2017 None Full Exam - General 1994 Respiratory respiratory effort/rhythm Overall: normal rate 07/14/2017 None Full Exam - General 1994 Cardiovascular inspection of carotid pulses Carotid pulse: carotid bruit 07/14/2017 None Full Exam - General 1994 Cardiovascular extremities Overall: no clubbing 07/14/2017 None Full Exam - General 1994 Cardiovascular auscultation of heart Overall: regular rate 07/14/2017 None Full Exam - General 1994 Cardiovascular auscultation of heart Overall: normal heart sounds 07/14/2017 None Full Exam - General 1994 Lymphatic neck nodes Overall: anterior cervical chain benign 07/14/2017 None Full Exam - General 1994 Lymphatic neck nodes Overall: posterior cervical chain benign 07/14/2017 None Full Exam - General 1994 Musculoskeletal spine, ribs and pelvis Overall: good posture 07/14/2017 None Full Exam - General 1994 Musculoskeletal head and neck Overall: head atraumatic 07/14/2017 None Full Exam - General 1994 Musculoskeletal head and neck Overall: cervical spine benign 07/14/2017 None Full Exam - General 1994 Neurologic cranial nerves Overall: crainial nerves 2 - 12 grossly intact 07/14/2017 None Full Exam - General 1994 Psychiatric orientation/consciousness Overall: oriented to person, place and time 07/14/2017 None Full Exam - General 1994 Psychiatric mood and affect Overall: normal mood and affect 07/14/2017 None Full Exam - General 1994 Constitutional general appearance Development: well developed 06/09/2017 None Full Exam - General 1994 Constitutional general appearance Development: appears stated age 0406/09/2017 None Full Exam - General 1994 Constitutional general appearance Hygiene/Attention to Grooming: good hygiene 06/09/2017 None Full Exam - General 1994 Eyes conjunctiva /eyelids Overall: conjunctiva clear 06/09/2017 None Full Exam - General 1994 Eyes conjunctiva /eyelids Overall: cornea clear 06/09/2017 None Full Exam - General 1994 Eyes conjunctiva /eyelids Overall: eyelids normal 06/09/2017 None Full Exam - General 1994 Eyes pupils and irises Overall: pupils equal, round, reactive to light and accomodation 06/09/2017 None Full Exam - General 1994 Ears/Nose/Throat lips/teeth/gingiva Overall: benign lips 06/09/2017 None Full Exam - General 1994 Ears/Nose/Throat lips/teeth/gingiva Overall: normal dentition 06/09/2017 None Full Exam - General 1994 Ears/Nose/Throat oral cavity/pharynx/larynx Overall: oral mucosa clear 06/09/2017 None Full Exam - General 1994 Ears/Nose/Throat oral cavity/pharynx/larynx Overall: oropharyngeal mucosa clear 06/09/2017 None Full Exam - General 1994 Ears/Nose/Throat oral cavity/pharynx/larynx Overall: hypopharynx benign 06/09/2017 None Full Exam - General 1994 Ears/Nose/Throat oral cavity/pharynx/larynx Overall: no masses 06/09/2017 None Full Exam - General 1994 Respiratory auscultation Overall: breath sounds clear bilaterally 06/09/2017 None Full Exam - General 1994 Respiratory respiratory effort/rhythm Overall: no retractions 06/09/2017 None Full Exam - General 1994 Respiratory respiratory effort/rhythm Overall: normal rate 06/09/2017 None Full Exam - General 1994 Cardiovascular inspection of carotid pulses Carotid pulse: carotid bruit 06/09/2017 None Full Exam - General 1994 Cardiovascular extremities Overall: no clubbing 06/09/2017 None Full Exam - General 1994 Cardiovascular auscultation of heart Overall: regular rate 06/09/2017 None Full Exam - General 1994 Cardiovascular auscultation of heart Overall: normal heart sounds 06/09/2017 None Full Exam - General 1994 Lymphatic neck nodes Overall: anterior cervical chain benign 06/09/2017 None Full Exam - General 1994 Lymphatic neck nodes Overall: posterior cervical chain benign 06/09/2017 None Full Exam - General 1994 Musculoskeletal spine, ribs and pelvis Overall: good posture 06/09/2017 None Full Exam - General 1994 Musculoskeletal head and neck Overall: head atraumatic 06/09/2017 None Full Exam - General 1994 Musculoskeletal head and neck Overall: cervical spine benign 06/09/2017 None Full Exam - General 1994 Neurologic cranial nerves Overall: crainial nerves 2 - 12 grossly intact 06/09/2017 None Full Exam - General 1994 Psychiatric orientation/consciousness Overall: oriented to person, place and time 06/09/2017 None Full Exam - General 1994 Psychiatric mood and affect Overall: normal mood and affect 06/09/2017 None Full Exam - General 1994 Constitutional general appearance Development: well developed 04/28/2017 None Full Exam - General 1994 Constitutional general appearance Development: appears stated age 0304/28/2017 None Full Exam - General 1994 Constitutional general appearance Hygiene/Attention to Grooming: good hygiene 04/28/2017 None Full Exam - General 1994 Eyes conjunctiva /eyelids Overall: conjunctiva clear 04/28/2017 None Full Exam - General 1994 Eyes conjunctiva /eyelids Overall: cornea clear 04/28/2017 None Full Exam - General 1994 Eyes conjunctiva /eyelids Overall: eyelids normal 04/28/2017 None Full Exam - General 1994 Eyes pupils and irises Overall: pupils equal, round, reactive to light and accomodation 04/28/2017 None Full Exam - General 1995 Ears/Nose/Throat lips/teeth/gingiva Overall: benign lips 04/28/2017 None Full Exam - General 1995 Ears/Nose/Throat lips/teeth/gingiva Overall: normal dentition 04/28/2017 None Full Exam - General 1995 Ears/Nose/Throat oral cavity/pharynx/larynx Overall: oral mucosa clear 04/28/2017 None Full Exam - General 1995 Ears/Nose/Throat oral cavity/pharynx/larynx Overall: oropharyngeal mucosa clear 04/28/2017 None Full Exam - General 1994 Ears/Nose/Throat oral cavity/pharynx/larynx Overall: hypopharynx benign 04/28/2017 None Full Exam - General 1994 Ears/Nose/Throat oral cavity/pharynx/larynx Overall: no masses 04/28/2017 None Full Exam - General 1994 Respiratory auscultation Overall: breath sounds clear bilaterally 04/28/2017 None Full Exam - General 1994 Respiratory respiratory effort/rhythm Overall: no retractions 04/28/2017 None Full Exam - General 1994 Respiratory respiratory effort/rhythm Overall: normal rate 04/28/2017 None Full Exam - General 1994 Cardiovascular inspection of carotid pulses Carotid pulse: carotid bruit 04/28/2017 None Full Exam - General 1994 Cardiovascular extremities Overall: no clubbing 04/28/2017 None Full Exam - General 1994 Cardiovascular auscultation of heart Overall: regular rate 04/28/2017 None Full Exam - General 1994 Cardiovascular auscultation of heart Overall: normal heart sounds 04/28/2017 None Full Exam - General 1994 Lymphatic neck nodes Overall: anterior cervical chain benign 04/28/2017 None Full Exam - General 1994 Lymphatic neck nodes Overall: posterior cervical chain benign 04/28/2017 None Full Exam - General 1994 Musculoskeletal spine, ribs and pelvis Overall: good posture 04/28/2017 None Full Exam - General 1994 Musculoskeletal head and neck Overall: head atraumatic 04/28/2017 None Full Exam - General 1994 Musculoskeletal head and neck Overall: cervical spine benign 04/28/2017 None Full Exam - General 1994 Neurologic cranial nerves Overall: crainial nerves 2 - 12 grossly intact 04/28/2017 None Full Exam - General 1994 Psychiatric orientation/consciousness Overall: oriented to person, place and time 04/28/2017 None Full Exam - General 1994 Psychiatric mood and affect Overall: normal mood and affect 04/28/2017 None Full Exam - General 1994 Constitutional [...] Carotid pulse: carotid bruit 03/14/2017 None Procedures Procedure Codes Date THER/PROPH/DIAG INJ SC/IM CPT-4: 88682 06/01/2018 THER/PROPH/DIAG INJ SC/IM CPT-4: 67456 2018 THER/PROPH/DIAG INJ SC/IM CPT-4: 35887 04/13/2018 TRIAMCINOLONE ACET INJ NOS CPT-4: J3301 04/07/2018 TRIAMCINOLONE ACET INJ NOS CPT-4: J3301 04/03/2018 ROCEPHIN, PER 250 MG CPT-4: J0696 04/03/2018 THER/PROPH/DIAG INJ SC/IM CPT-4: 91911 03/20/2018 THER/PROPH/DIAG INJ SC/IM CPT-4: 44890 03/06/2018 THER/PROPH/DIAG INJ SC/IM CPT-4: 39207 02/19/2018 THER/PROPH/DIAG INJ SC/IM CPT-4: 08196 02/03/2018 THER/PROPH/DIAG INJ SC/IM CPT-4: 55046 01/07/2018 TRIAMCINOLONE ACET INJ NOS CPT-4: J3301 01/07/2018 ROCEPHIN, PER 250 MG CPT-4: J0696 01/07/2018 THER/PROPH/DIAG INJ SC/IM CPT-4: 45359 01/05/2018 THER/PROPH/DIAG INJ SC/IM CPT-4: 63641 12/15/2017 THER/PROPH/DIAG INJ SC/IM CPT-4: 48111 12/04/2017 PPPS, SUBSEQ VISIT CPT -4: G0439 11/27/2017 ADMIN INFLUENZA VIRUS VAC CPT-4: G0008 11/17/2017 FLU VAC NO PRSV 4 FATOU 3 YRS+ CPT-4: 66321 11/17/2017 THER/PROPH/DIAG INJ SC/IM CPT-4: 99641 11/17/2017 THER/PROPH/DIAG INJ SC/IM CPT-4: 27862 10/22/2017 THER/PROPH/DIAG INJ SC/IM CPT-4: 82640 10/06/2017 TRIAMCINOLONE ACET INJ NOS CPT-4: J3301 10/06/2017 THER/PROPH/DIAG INJ SC/IM CPT-4: 27393 09/23/2017 THER/PROPH/DIAG INJ SC/IM CPT-4: 13806 08/28/2017 THER/PROPH/DIAG INJ SC/IM CPT-4: 28569 08/12/2017 THER/PROPH/DIAG INJ SC/IM CPT-4: 84627 07/28/2017 THER/PROPH/DIAG INJ SC/IM CPT-4: 83112 07/14/2017 THER/PROPH/DIAG INJ SC/IM CPT-4: 49651 06/26/2017 THER/PROPH/DIAG INJ SC/IM CPT-4: 34271 06/09/2017 THER/PROPH/DIAG INJ SC/IM CPT-4: 07597 05/27/2017 THER/PROPH/DIAG INJ SC/IM CPT-4: 19600 05/13/2017 THER/PROPH/DIAG INJ SC/IM CPT-4: 06908 04/29/2017 Vital Signs Date Vital 05/27/2018 Blood Pressure 1: 130/76 Code : 8480-6 BMI: 28.7 Code : 01180-3 Heart Rate 1 : 83 bpm Height: 5'10" SpO2: 97% Weight: 200 lbs 04/09/2018 Blood Pressure 1: 120/70 Code : 8480-6 Heart Rate 1: 66 bpm Height: 5'10" SpO2: 98% Weight: 04/07/2018 Blood Pressure 1: 126/74 Code : 8480-6 BMI: 29.0 Code : 91466-8 Heart Rate 1 : 75 bpm Height: 5'10" SpO2: 98% Weight: 202 lbs 04/03/2018 Blood Pressure 1: 130/74 Code : 8480-6 BMI: 29.0 Code : 87331-0 Heart Rate 1 : 89 bpm Height: 5'10" SpO2: 98% Temperature: 37.4 (C) / 99.4 (F) Weight: 202 lbs 03/20/2018 Blood Pressure 1: 122/60 Code : 8480-6 Heart Rate 1: 76 bpm Height: 5'10" SpO2: 96% Weight: 03/10/2018 Blood Pressure 1: 120/70 Code : 8480-6 BMI: 29.0 Code : 87328-4 Heart Rate 1 : 82 bpm Height: 5'10" SpO2: 95% Weight: 202 lbs 01/07/2018 Blood Pressure 1: 126/66 Code : 8480-6 BMI: 30.1 Code : 67616-1 Heart Rate 1 : 75 bpm Height: 5'10" SpO2: 97% Temperature: 36.5 (C) / 97.7 (F) Weight: 210 lbs 12/22/2017 Blood Pressure 1: 124/70 Code : 8480-6 BMI: 29.7 Code : 61938-8 Heart Rate 1 : 84 bpm Height: 5'10" SpO2: 94% Weight: 207 lbs 12/15/2017 Blood Pressure 1: 122/82 Code : 8480-6 BMI: 30.0 Code : 53677-8 Heart Rate 1 : 82 bpm Height: 5'10" SpO2: 93% Weight: 209 lbs 11/27/2017 Blood Pressure 1: 132/68 Code : 8480-6 BMI: 29.3 Code : 80368-2 Heart Rate 1 : 71 bpm Height: 5'10" SpO2: 97% Waist Measure (cm): 97 cm Weight: 204 lbs 11/17/2017 Blood Pressure 1: 130/80 Code : 8480-6 BMI: 29.3 Code : 73689-6 Heart Rate 1 : 73 bpm Height: 5'10" SpO2: 99% Weight: 204 lbs 10/06/2017 Blood Pressure 1: 124/60 Code : 8480-6 BMI: 28.8 Code : 47154-0 Heart Rate 1 : 70 bpm Height: 5'10" SpO2: 98% Weight: 201 lbs 07/24/2017 Blood Pressure 1: 118/70 Code : 8480-6 BMI: 29.3 Code : 94753-3 Heart Rate 1 : 82 bpm Height: 5'10" SpO2: 96% Weight: 204 lbs 07/14/2017 Blood Pressure 1: 118/72 Code : 8480-6 BMI: 29.1 Code : 41582-7 Heart Rate 1 : 83 bpm Height: 5'10" SpO2: 98% Weight: 203 lbs 06/09/2017 Blood Pressure 1: 120/74 Code : 8480-6 BMI: 29.3 Code : 93695-5 Heart Rate 1 : 91 bpm Height: 5'10" SpO2: 99% Weight: 204 lbs 04/28/2017 Blood Pressure 1: 118/68 Code : 8480-6 BMI: 28.8 Code : 38373-0 Heart Rate 1 : 74 bpm Height: 5'10" SpO2: 96% Weight: 201 lbs 03/14/2017 Blood Pressure 1: 114/74 Code : 8480-6 BMI: 28.6 Code : 58183-3 Heart Rate 1 : 77 bpm Height: 5'10" SpO2: 97% Weight: 199 lbs Functional Status No Functional Status data History of Present Illness Symptom Name Status Result Effective Date Notes Location lumbar-sacral spine 05/27/2018 None Quality constant 04/2018 None Onset and Resolution ongoing 05/27/2018 None Onset of Symptom years ago 05/27/2018 None Triggers activity 04/2018 None Radiating down both legs 05/27/2018 None Severity moderate 04/2018 None Pertinent Findings extremity numbness 05/27/2018 at times Pertinent Findings extremity weakness 05/27/2018 None Pertinent Findings morning stiffness 05/27/2018 None Quality radiating 04/2018 None Frequency of Episodes daily 05/27/2018 None Alleviating Factors medication 05/27/2018 (hydrocodone) Significant Medical Conditions spinal stenosis 05/27/2018 None Quality acute 2018 None Quality intermittent 04/09/2018 None Onset and Resolution sudden in onset 04/09/2018 None Onset and Resolution ongoing 04/09/2018 None Onset of Symptom 1+ weeks ago 04/09/2018 None Quality productive None Pertinent Findings sputum production 04/09/2018 (yellowish) Pertinent Findings post nasal drip 04/09/2018 (yellowish) Pertinent Findings nasal congestion 04/09/2018 None Pertinent Findings Denies chills 04/09/2018 None Pertinent Findings Denies fever 04/09/2018 None Location on the left 04/09/2018 None Frequency of Episodes decreasing 04/09/2018 None Alleviating Factors medication 04/09/2018 and injection Quality acute 2018 None Onset of Symptom Denies 4 days ago 04/09/2018 None Onset and Resolution sudden in onset 04/09/2018 None Triggers Denies activity 04/09/2018 None Frequency of Episodes decreasing 04/09/2018 None Limitation on Activities does not limit activities 04/09/2018 None Triggers no known associated factors 04/09/2018 None Quality improving None Limitation on Activities does not limit activities 04/09/2018 None Location in the left lower back area 04/07/2018 None Quality sharp 2018 None Quality pinching 01/2019 None Onset and Resolution sudden in onset 04/07/2018 None Onset of Symptom 2 days ago 04/07/2018 None Limitation on Activities moderately limits activities 04/07/2018 None Frequency of Episodes increasing 04/07/2018 None Significant Medications injected steroids 04/07/2018 None Triggers activity 01/2019 None Alleviating Factors stretching 04/07/2018 None Severity moderate 01/2019 None Sports Participation not significant 04/07/2018 None Pertinent Findings Denies extremity numbness 04/07/2018 None Pertinent Findings Denies fever 04/07/2018 None Quality constant 09/2018 None Quality intermittent 04/03/2018 None Onset and Resolution sudden in onset 04/03/2018 None Onset of Symptom 1 days ago 04/03/2018 None Quality constant 09/2018 None Onset and Resolution sudden in onset 04/03/2018 None Onset of Symptom 2 days ago 04/03/2018 None Severity mild 2018 None Frequency of Episodes unchanged 04/03/2018 None Length of Episodes _ days 04/03/2018 None Triggers ill contacts 04/03/2018 None Pertinent Findings cough 04/03/2018 None Pertinent Findings decreased energy 04/03/2018 None Quality enlarging None Quality firm 2018 None Quality raised 2018 None Location on the right cheek 03/20/2018 None Onset and Resolution sudden in onset 03/20/2018 None Onset of Symptom 1 weeks ago 03/20/2018 None Frequency of Episodes daily 03/20/2018 None Location lumbar-sacral spine 03/10/2018 None Quality constant None Onset and Resolution ongoing 03/10/2018 None Onset of Symptom 3.5 years ago 03/10/2018 None Frequency of Episodes hourly 03/10/2018 None Triggers activity None Initial treatment medication 03/10/2018 None Radiating down both legs 03/10/2018 None Severity moderate None Pertinent Findings Denies extremity numbness 03/10/2018 None Pertinent Findings Denies extremity weakness 03/10/2018 None Pertinent Findings morning stiffness 03/10/2018 None sinus congestion Location frontal sinuses 01/07/2018 None sinus congestion Quality fullness 01/07/2018 None sinus congestion Quality pressure 01/07/2018 None sinus congestion Onset and Resolution sudden in onset 01/07/2018 None sore throat Quality aching 01/07/2018 None sore throat Quality constant 01/07/2018 None sore throat Quality burning 01/07/2018 None sore throat Onset and Resolution sudden in onset 01/07/2018 None sore throat Onset of Symptom 1 days ago 01/07/2018 None sore throat Frequency of Episodes daily 01/07/2018 None earache Location both ears 01/07/2018 None earache Onset and Resolution sudden in onset 01/07/2018 None earache Onset of Symptom 1 days ago 01/07/2018 None earache Frequency of Episodes daily 01/07/2018 None back pain Location lumbar-sacral spine 12/22/2017 None back pain Quality constant 12/22/2017 None back pain Onset and Resolution ongoing 12/22/2017 None back pain Onset of Symptom 3.5 years ago 12/22/2017 None back pain Frequency of Episodes hourly 12/22/2017 None back pain Triggers activity 12/22/2017 None back pain Initial treatment medication 12/22/2017 None back pain Radiating down both legs 12/22/2017 None back pain Severity moderate 12/22/2017 None back pain Pertinent Findings Denies extremity numbness 12/22/2017 None back pain Pertinent Findings Denies extremity weakness 12/22/2017 None back pain Pertinent Findings morning stiffness 12/22/2017 None back pain Location lumbar-sacral spine 12/15/2017 None back pain Quality constant 12/15/2017 None back pain Onset and Resolution ongoing 12/15/2017 None back pain Onset of Symptom 3.5 years ago 12/15/2017 None back pain Frequency of Episodes hourly 12/15/2017 None back pain Pertinent Findings Denies extremity numbness 12/15/2017 None back pain Pertinent Findings Denies extremity weakness 12/15/2017 None back pain Pertinent Findings morning stiffness 12/15/2017 None back pain Triggers activity 12/15/2017 None back pain Initial treatment medication 12/15/2017 None back pain Radiating down both legs 12/15/2017 None back pain Severity moderate 12/15/2017 None Annual Medicare Wellness Exam Alcohol Use drinks 1 days per week 11/27/2017 None Annual Medicare Wellness Exam Aspirin Use no 11/27/2017 None Annual Medicare Wellness Exam Blood Glucose (self reported) don't know 11/27/2017 None Annual Medicare Wellness Exam Blood Pressure (self reported ) low / normal (120/80) 11/27/2017 None Annual Medicare Wellness Exam Cholesterol (self reported) desireable (below 200) 11/27/2017 None Annual Medicare Wellness Exam Depression (last 6 months) almost never 11/27/2017 None Annual Medicare Wellness Exam Depression or Hopelessness almost never 11/27/2017 None Annual Medicare Wellness Exam Describe Your Health very good 11/27/2017 None Annual Medicare Wellness Exam Exercise Habits exercises 3 days per week 11/27/2017 None Annual Medicare Wellness Exam Exercise Habits exercises 30 minutes per day 11/27/2017 None Annual Medicare Wellness Exam Handling Stress usually fercho effectively 11/27/2017 None Annual Medicare Wellness Exam Hemaglobin A-1C (self reported ) don't know 11/27/2017 None Annual Medicare Wellness Exam Hours of Sleep 8 11/27/2017 None Annual Medicare Wellness Exam Interaction with Friends yes 11/27/2017 None Annual Medicare Wellness Exam Interests & Pleasure almost all of the time 11/27/2017 None Annual Medicare Wellness Exam Life Satisfaction very satisfied 11/27/2017 None Annual Medicare Wellness Exam Motor Vehicle Safety always fastens seat belt: y 11/27/2017 None Annual Medicare Wellness Exam Motor Vehicle Safety drives after drinking: n 11/27/2017 None Annual Medicare Wellness Exam Motor Vehicle Safety rides with someone who has been drinking: n 2017 None Annual Medicare Wellness Exam Nutrition servings of fried food / high fat foods per day: 1 2017 None Annual Medicare Wellness Exam Nutrition servings of high fiber / whole grain per day: 2 11/27/2017 None Annual Medicare Wellness Exam Nutrition servings of vegetables / fruit per day: 2 11/27/2017 None Annual Medicare Wellness Exam Smoking and Tobacco Use non smoker 11/27/2017 None Annual Medicare Wellness Exam Social & Emotional Support always 11/27/2017 None Annual Medicare Wellness Exam Stress some of the time 11/27/2017 None Annual Medicare Wellness Exam Sun Exposure protects skin when outdoors: n 11/27/2017 None shoulder pain Location on the right shoulder 11/17/2017 None shoulder pain Quality chronic 11/17/2017 None shoulder pain Onset and Resolution ongoing 11/17/2017 None shoulder pain Alleviating Factors physical therapy 11/17/2017 and surgery shoulder pain Exacerbating Factors activity 11/17/2017 None shoulder pain Exacerbating Factors position change 11/17/2017 None insomnia Quality difficulty falling asleep 11/17/2017 None insomnia Quality disrupted sleep 11/17/2017 None insomnia Quality intermittent 11/17/2017 None insomnia Onset and Resolution ongoing 11/17/2017 None insomnia Onset of Symptom 2 weeks ago 11/17/2017 None insomnia Quality acute 11/17/2017 None insomnia Triggers no known associated factors 11/17/2017 -tapering on pain medication shoulder pain Quality improving 11/17/2017 since surgery shoulder pain Frequency of Episodes decreasing 11/17/2017 None sinus congestion Location frontal sinuses 10/06/2017 None sinus congestion Quality constant 10/06/2017 None sinus congestion Quality fullness 10/06/2017 None sinus congestion Quality pressure 10/06/2017 None sinus congestion Onset and Resolution sudden in onset 10/06/2017 None sinus congestion Onset of Symptom 1 days ago 10/06/2017 None sore throat Location diffusely 10/06/2017 None sore throat Quality aching 10/06/2017 None sore throat Quality constant 10/06/2017 None sore throat Onset and Resolution sudden in onset 10/06/2017 None sore throat Onset of Symptom 1 days ago 10/06/2017 None sore throat Frequency of Episodes daily 10/06/2017 None shoulder pain Location on the left shoulder 07/24/2017 None shoulder pain Quality acute 07/24/2017 None shoulder pain Limitation on Activities is incapacitating 07/24/2017 None shoulder pain Exacerbating Factors lifting 07/24/2017 None shoulder pain Exacerbating Factors exertion 07/24/2017 None shoulder pain Exacerbating Factors activity 07/24/2017 None shoulder pain Pertinent Findings Denies fever 07/24/2017 None abnormal test results Test Performed on 07/14/2017 None abnormal test results Type of Test(s) chest x-ray 07/14/2017 None abnormal test results Type of Test(s) PFT 07/14/2017 None shoulder pain Location on the right shoulder 07/14/2017 None shoulder pain Onset and Resolution ongoing 07/14/2017 None shoulder pain Quality chronic 07/14/2017 None shoulder pain Alleviating Factors physical therapy 07/14/2017 None shoulder pain Exacerbating Factors activity 07/14/2017 None shoulder pain Exacerbating Factors position change 07/14/2017 None fatigue Onset and Resolution ongoing 06/09/2017 None abnormal test results Abnormal Indicator abnormal 06/09/2017 None abnormal test results Test Performed on 06/09/2017 None abnormal test results Repeated Abnormal Results 0 06/09/2017 None abnormal test results Type of Test(s) Sleep study 06/09/2017 None fatigue Quality improving 06/09/2017 None fatigue Frequency of Episodes decreasing 06/09/2017 None fatigue Alleviating Factors medication 06/09/2017 (testosterone) skin lesion Location finger and/or fingers of right hand 04/28/2017 None skin lesion Onset and Resolution ongoing 04/28/2017 None skin lesion Quality scabbed 04/28/2017 None fatigue Onset and Resolution ongoing 04/28/2017 None fatigue Quality worsening 04/28/2017 None hyperlipidemia Onset and Resolution ongoing 03/14/2017 None [...] data Encounters Encounter Performer Location Codes Date ([id number]) 72415 EST. PATIENT, LEVEL IV Diagnosis: Low back pain[ICD10: M54.5] Diagnosis: Pain in left shoulder[ICD10: M25.512] Leora Hollis MD, [facility] CPT-4: 76900 05/27/2018 ([id number] EST. PATIENT, LEVEL II Diagnosis: Other allergic rhinitis[ICD10: J30.89] Diagnosis: Acute recurrent maxillary sinusitis[ICD10: J01.01] Elise Hollis MD, [facility] CPT-4: 72354 04/09/2018 ([id number]) 20097 EST. PATIENT, LEVEL III Diagnosis: Low back pain[ICD10: M54.5] Diagnosis: Sciatica, left side[ICD10: M54.32] [facility] CPT-4: 16612 04/07/2018 ([id number] EST. PATIENT, LEVEL III Diagnosis: Acute recurrent maxillary sinusitis[ICD10: J01.01] Diagnosis: Cough[ICD10: R05] Elise Hollis MD, [facility] CPT-4: 40932 04/03/2018 [id number] EST. 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 PATIENT, LEVEL III Diagnosis: Other malaise[ICD10: R53.81] Diagnosis: Acute laryngopharyngitis[ICD10: J06.0] Diagnosis: Other allergic rhinitis[ICD10: J30.89] Sapphire Hollis MD, [facility] CPT-4: 02912 01/07/2018 ([id number]) 27928 EST. PATIENT, LEVEL III Diagnosis: Spinal stenosis, lumbosacral region[ICD10: M48.07] Diagnosis: Spinal stenosis, cervical region[ICD10: M48.02] Elise Hollis MD, [facility] CPT-4: 50432 12/22/2017 ([id number]) 65707 EST. 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 PATIENT, LEVEL III Diagnosis: Mixed hyperlipidemia[ICD10: E78.2] Diagnosis: Other insomnia[ICD10: G47.09] Leora Hollis MD, [facility] CPT- 4: 36859 11/17/2017 [id number] EST. PATIENT, LEVEL III Diagnosis: Acute laryngopharyngitis[ICD10: J06.0] Diagnosis: Other allergic rhinitis[ICD10: J30.89] Sapphire Hollis MD, [facility] CPT-4: 95566 10/06/2017 27715 EST. PATIENT, LEVEL III Diagnosis: Pain in left shoulder[ICD10: M25.512] Sapphire Hollis MD, [facility] CPT-4: 16462 07/24/2017 ([id number]) 62165 EST. 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] Diagnosis: Impacted cerumen, bilateral[ICD10: H61.23] 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 The pt is to use prn antiinflammatories to manage acute pain. The patient is to call the office if the pain is worsening or does not improve. Left shoulder pain - keep appt with Dr. Back 05/27/2018 Appointment: Le[facility] Hollis [facility] [place] (15 min) Moderate 05/27/2018 Patient Education: Patient Medication Summary Completed 05/27/2018 Patient Education: Back Pain Completed 05/27/2018 Appointment: Injection 2018 Patient Education: Patient Medication Summary Completed 2018 Appointment: Injection 04/13/2018 Patient Education: Patient Medication Summary Completed 04/13/2018 Visit Plan: Sinusitis-allergic rhinitis-extend abx x 3 more days-short course of prednisone -let us know if symptoms do not resolve completely. 04/09/2018 Appointment: Elise Castillo WPtel: [phone] [place] (15 min) Moderate 04/09/2018 Appointment: Elise Castillo WPtel: [phone] [place] (15 min) Moderate 04/09/2018 Patient Education: Patient Medication Summary Completed 04/09/2018 Visit Plan: Sciatica-left- kenalog injection today in the office- exercises discussed with the patient, pt to continue with antiinflammatories. Pt is to call if the symptoms do not improve or if they worsen. 04/07/2018 Appointment: Elise Castillo WPtel: [phone] [phone] [place] (15 min) Moderate 04/07/2018 Patient Education: Patient Medication Summary Completed 04/07/2018 Patient Education: Back Pain Completed 04/07/2018 Visit Plan: Sinusitis - Pt has acute infection - pain in face, maxillary region, Pt informed to use decongestant, RX given to patient, sinus rinses also recommended. Call if symptoms do not show improvement. 04/03/2018 Appointment: Elise Castillo WPtel: [phone] (15 min) Moderate 04/03/2018 Patient Education: Patient Medication Summary Completed 04/03/2018 Visit Plan: Cellulitis - The patient was instructed in appropriate wound care. The patient was instructed to use the antibiotic ointment as per RX and start oral abx as directed. The patient is to call for any change in symptoms or if it does not resolve completely. Left shoulder pain- rotator cuff tear -schedule appt with Dr Back 03/20/2018 Visit Plan: Cellulitis - The patient was instructed in appropriate wound care. The patient was instructed to use the antibiotic ointment as per RX and start oral abx as directed. The patient is to call for any change in symptoms or if it does not resolve completely. Left shoulder pain- rotator cuff tear -schedule appt with Dr Back 03/20/2018 Visit Plan: Cellulitis - The patient was instructed in appropriate wound care. The patient was instructed to use the antibiotic ointment as per RX and start oral abx as directed. The patient is to call for any change in symptoms or if it does not resolve completely. Left shoulder pain- rotator cuff tear -schedule appt with Dr Back 03/20/2018 Appointment: Elise Castillo WPtel: [phone] (15 min) Moderate 03/20/2018 Appointment: (15 min) Moderate 03/20/2018 Patient Education: Patient Medication Summary Completed 03/20/2018 Visit Plan: Spinal stenosis with back pain - refilled hydrocodone- keep appt with [facility] [employer] [facility] for treatment of stenosis of arteries, then pt most-likely to have surgical intervention of spine. PAD - pt will need surgical intervention with stenting. Testicular hypofunction - continue with testosterone. 03/10/2018 Appointment: Leora Hollis WPtel: [address] [place], [place] [phone] (15 min) Moderate 03/10/2018 Patient Education: Patient Medication Summary Completed 03/10/2018 Patient Education: Back Pain Completed 03/10/2018 Patient Education: Cholesterol Management Completed 03/10/2018 Appointment: Leora Hollis WPtel: [phone] [facility] (15 min) Moderate 03/09/2018 Appointment: Injection 03/06/2018 Patient Education: Patient Medication Summary Completed 03/06/2018 Appointment: Injection 02/19/2018 Patient Education: Patient Medication Summary Completed 02/19/2018 Appointment: Injection 02/18/2018 Appointment: Injection 02/03/2018 Patient Education: Patient Medication Summary Completed 02/03/2018 Visit Plan: URI - Pt advised to increase fluids, vitamin C. Discussed natural and expected course of this diagnosis and need to alert me if symptoms do not follow expected course, or if any worse. RX sent to patient' s pharmacy. Allergies - chronic - recommended pt to use allergy medication as prescribed. Pt has been counseled as to the appropriate use of the medication. Pt to call if allergy symptoms are not controlled with the medication. If using nasal spray, instructions as follows: Nasal spray- use twice daily, one spray per nostril twice daily, after 30 minutes, rinse out nose with saline spray.. Use opposite hand per nostril to spray in the nasal steroid allergy spray. 01/07/2018 Visit Plan: URI - Pt advised to increase fluids, vitamin C. Discussed natural and expected course of this diagnosis and need to alert me if symptoms do not follow expected course, or if any worse. RX sent to patient' s pharmacy. Allergies - chronic - recommended pt to use allergy medication as prescribed. Pt has been counseled as to the appropriate use of the medication. Pt to call if allergy symptoms are not controlled with the medication. If using nasal spray, instructions as follows: Nasal spray- use twice daily, one spray per nostril twice daily, after 30 minutes, rinse out nose with saline spray.. Use opposite hand per nostril to spray in the nasal steroid allergy spray. 01/07/2018 Appointment: Sapphire Oneil [phone] (15 min) Moderate 01/07/2018 Patient Education: Patient Medication Summary Completed 01/07/2018 Patient Education: Patient Medication Summary Completed 01/07/2018 Appointment: Injection 01/05/2018 Patient Education: Patient Medication Summary Completed 01/05/2018 Visit Plan: Cervical and lumbar stenosis -refer for PT to evaluate and treat -follow up with DR Steward as scheduled -refill hydrocodone for prn use only -discussed with patient that he is to use it for breakthrough pain only -patient verbalized understanding of plan. 12/22/2017 Appointment: Elise Castillo WPtel: [phone] (15 min) Moderate 12/22/2017 Patient Education: Patient Medication Summary Completed 12/22/2017 Visit Plan: Neck and low back pain -will schedule MRI lumbar and cervical spine for further evaluation and proceed as indicated- patient verbalized understanding of plan. 12/15/2017 Appointment: Elise Castillo WPtel: [phone] [phone] (15 min) Moderate 12/15/2017 Patient Education: Patient Medication Summary Completed 12/15/2017 Patient Education: Back Pain Completed 12/15/2017 Care Plan: MRI LUMBAR SPINE W/O DYE LOINC : 42469-9 Pending 12/15/2017 Care Plan: MRI NECK SPINE W/O DYE LOINC : 24801-3 Pending 12/15/2017 Appointment: Injection 12/04/2017 Patient Education: Patient Medication Summary Completed 12/04/2017 Visit Plan: Medicare Exam - today we discussed the patients past history, immunizations, preventative exams/evaluations - colonoscopy, fecal occult blood testing, routine labs for renal function, glucose, cholesterol, osteoporosis evaluations, cardiovascular testing and cancer screenings. We have also discussed mental health and the signs/symptoms of depression. The patient was advised of home safety evaluations and the need to make sure that as the aging process continues, we need to be aware of different ways to make the home a safer place to reside. The patient has also been counseled that exercise is necessary - and of utmost importance as we age to help decrease fall risk and to maintain independece in the home. Today we discussed the need for the patient to create paperwork for Advanced directives as well as for the patient to provide this office with a copy of her DOPA paperwork for health care surrogate. 11/27/2017 Appointment: Sapphire Oneill: [facility] [facility] - Annual Wellness Visit 11/27/2017 Patient Education: Patient Medication Summary Completed 11/27/2017 Patient Education: Snake Bite Completed 11/27/2017 Visit Plan: Hyperlipidemia - pt has been [...] to assure normal liver response to medications. Insomnia - for insomnia - I recommend Extended Release Melatonin 10mg to take at bedtime if having trouble getting to sleep 11/17/2017 Appointment: Leora Hollis WPtel: [facility] (15 min) Moderate 11/17/2017 Patient Education: Patient Medication Summary Completed 11/17/2017 Patient Education: Cholesterol Management Completed 11/17/2017 Appointment: Nurse Visit 11/07/2017 Appointment: Injection 10/22/2017 Patient Education: Patient Medication Summary Completed 10/22/2017 Visit Plan: URI - Pt advised to increase fluids, vitamin C. Discussed natural and expected course of this diagnosis and need to alert me if symptoms do not follow expected course, or if any worse. RX sent to patient' s pharmacy. Allergies - chronic - recommended pt to use allergy medication as prescribed. Pt has been counseled as to the appropriate use of the medication. Pt to call if allergy symptoms are not controlled with the medication. If using nasal spray, instructions as follows: Nasal spray- use twice daily, one spray per nostril twice daily, after 30 minutes, rinse out nose with saline spray.. Use opposite hand per nostril to spray in the nasal steroid allergy spray. 10/06/2017 Appointment: Leora Hollis WPtel: [phone] [facility] (15 min) Moderate 10/06/2017 Appointment: Sapphire Oneil WPtel: [facility] [place] (15 min) Moderate 10/06/2017 Patient Education: Patient Medication Summary Completed 10/06/2017 Appointment: Nurse Visit 09/25/2017 Appointment: Injection 09/23/2017 Patient Education: Patient Medication Summary Completed 09/23/2017 Appointment: Injection 08/28/2017 Patient Education: Patient Medication Summary Completed 08/28/2017 Appointment: Injection 08/12/2017 Patient Education: Patient Medication Summary Completed 08/12/2017 Appointment: Injection 07/28/2017 Patient Education: Patient Medication Summary Completed 07/28/2017 Visit Plan: Increased left shoulder pain and weakness after fall - Discussed with Dr. Back office - they are going to contact him tomorrow for a possible appointment - pt is to notify clinic with any change in the current treatment plan. 07/24/2017 Appointment: Sapphire Oneil [facility]Ptel[phone] [place] (30 min) Complex 07/24/2017 Patient Education: Patient Medication Summary Completed 07/24/2017 Visit Plan: COPD - chronic problem for this patient. We have reviewed chronic treatment strategy, symptom control, and plans for acute exacerbations. No changes today to the current treatment plan as the patient is stable, monitor for acute changes. Pt needs to be on overnight oxygen he has dx of hypoxemia nocturnally. Hyperlipidemia - pt has been counseled about [...] to assure normal liver response to medications. 07/14/2017 Appointment: Le[facility] Holl[phone] [facility] [place] (15 min) Moderate 07/14/2017 Patient Education: Patient Medication Summary Completed 07/14/2017 Appointment: Le[facility] Holl[facility] [phone] [facility] [place] (15 min) Moderate 07/10/2017 Appointment: Injection 06/26/2017 Patient Education: Patient Medication Summary Completed 06/26/2017 Visit Plan: Hypogonadism - testosterone shot to be given every two weeks as previously discussed - pt to have labs in 3 months Hypersomnia with polycythemia - I have recommended pt to start on oxygen - Pt wants to use [employer] for oxygen concentrator with humidification at night 06/09/2017 Appointment: Leora Hollis [facility]el[facility] [phone] [facility] (30 min) Complex 06/09/2017 Patient Education: Patient Medication Summary Completed 06/09/2017 Appointment: Injection 05/27/2017 Patient Education: Patient Medication Summary Completed 05/27/2017 Appointment: Injection 05/13/2017 Patient Education: Patient Medication Summary Completed 05/13/2017 Appointment: Injection 04/29/2017 Patient Education: Patient Medication Summary Completed 04/29/2017 Visit Plan: Hypogonadism - pt has hx of testosterone use - he was not being monitored very well - per his report - and his hgb got to over 18. I have recommended to restart a low dose of testosterone 200mg/mL - 1/2 ml every two weeks. Rx given to patient. Hypersomnia with polycythemia - I have recommended pt to have a sleep study - in lab. epworth sleepiness scale score of 15 04/28/2017 Appointment: Leora Hollis [facility]el[phone] [facility] (30 min) Complex 04/28/2017 Patient Education: Patient Medication Summary Completed 04/28/2017 Appointment: Nurse Visit 03/17/2017 Patient Education: Patient Medication Summary Completed 03/17/2017 [...] wax removal 03/14/2017 Appointment: Leora Hollis [phone] [facility] [facility] 03/14/2017 Patient Education: Patient Medication Summary Completed 03/14/2017 Instructions Comment for insomnia - I recommend Extended Release Melatonin 10mg to take at bedtime if having trouble getting to sleep . Hyperlipidemia - pt has been counseled [...] to assure normal liver response to medications. Insomnia - for insomnia - I recommend Extended Release Melatonin 10mg to take at bedtime if having trouble getting to sleep . Hyperlipidemia - pt has been counseled [...] in on Friday for ear wax removal mupirocin ointment to lesion on right cheek -keflex three times daily -call or return to clinic of sore does not resolve completely or if any worse appt with dr back for left shoulder . Cellulitis - The patient was instructed in appropriate wound care. The patient was instructed to use the antibiotic ointment as per RX and start oral abx as directed. The patient is to call for any change in symptoms or if it does not resolve completely. Left shoulder pain-rotator cuff tear -schedule appt with Dr Back mupirocin ointment to lesion on right cheek -keflex three times daily -call or return to clinic of sore does not resolve completely or if any worse appt with dr back for left shoulder . Cellulitis - The patient was instructed in appropriate wound care. The patient was instructed to use the antibiotic ointment as per RX and start oral abx as directed. The patient is to call for any change in symptoms or if it does not resolve completely. Left shoulder pain-rotator cuff tear -schedule appt with Dr Back mupirocin ointment to lesion on right cheek -keflex three times daily -call or return to clinic of sore does not resolve completely or if any worse appt with dr back for left shoulder . Cellulitis - The patient was instructed in appropriate wound care. The patient was instructed to use the antibiotic ointment as per RX and start oral abx as directed. The patient is to call for any change in symptoms or if it does not resolve completely. Left shoulder pain-rotator cuff tear -schedule appt with Dr Back . URI - Pt advised to increase fluids, vitamin C. Discussed natural and expected course of this diagnosis and need to alert me if symptoms do not follow expected course, or if any worse. RX sent to patient's pharmacy. Allergies - chronic - recommended pt to use allergy medication as prescribed. Pt has been counseled as to the appropriate use of the medication. Pt to call if allergy symptoms are not controlled with the medication. If using nasal spray, instructions as follows: Nasal spray- use twice daily, one spray per nostril twice daily, after 30 minutes, rinse out nose with saline spray.. Use opposite hand per nostril to spray in the nasal steroid allergy spray. . URI - Pt advised to increase fluids, vitamin C. Discussed natural and expected course of this diagnosis and need to alert me if symptoms do not follow expected course, or if any worse. RX sent to patient's pharmacy. Allergies - chronic - recommended pt to use allergy medication as prescribed. Pt has been counseled as to the appropriate use of the medication. Pt to call if allergy symptoms are not controlled with the medication. If using nasal spray, instructions as follows: Nasal spray- use twice daily, one spray per nostril twice daily, after 30 minutes, rinse out nose with saline spray.. Use opposite hand per nostril to spray in the nasal steroid allergy spray. . Hypogonadism - testosterone shot to be given every two weeks as previously discussed - pt to have labs in 3 months Hypersomnia with polycythemia - I have recommended pt to start on oxygen - Pt wants to use [employer] for oxygen concentrator with humidification at night . Medicare Exam - today we discussed the patients past history, immunizations, preventative exams/evaluations - colonoscopy, fecal occult blood testing, routine labs for renal function, glucose, cholesterol, osteoporosis evaluations, cardiovascular testing and cancer screenings. We have also discussed mental health and the signs/symptoms of depression. The patient was advised of home safety evaluations and the need to make sure that as the aging process continues, we need to be aware of different ways to make the home a safer place to reside. The patient has also been counseled that exercise is necessary - and of utmost importance as we age to help decrease fall risk and to maintain independece in the home. Today we discussed the need for the patient to create paperwork for Advanced directives as well as for the patient to provide this office with a copy of her DOPA paperwork for health care surrogate. MRI cervical and lumbar spine testosterone injection . Neck and low back pain -will schedule MRI lumbar and cervical spine for further evaluation and proceed as indicated-patient verbalized understanding of plan. . COPD - chronic problem for this patient. We have reviewed chronic treatment strategy, symptom control, and plans for acute exacerbations. No changes today to the current treatment plan as the patient is stable, monitor for acute changes. Pt needs to be on overnight oxygen he has dx of hypoxemia nocturnally. Hyperlipidemia - pt has been counseled about [...] to assure normal liver response to medications. . Hypogonadism - pt has hx of testosterone use - he was not being monitored very well - per his report - and his hgb got to over 18. I have recommended to restart a low dose of testosterone 200mg/mL - 1/2 ml every two weeks. Rx given to patient. Hypersomnia with polycythemia - I have recommended pt to have a sleep study - in lab. epworth sleepiness scale score of 15 . Sinusitis-allergic rhinitis-extend abx x 3 more days- short course of prednisone -let us know if symptoms do not resolve completely. CALL FRIDAY IF NOT BETTER AND WE CAN SEND IN A SHORT COURSE OF PREDNISONE . Sciatica-left- kenalog injection today in the office- exercises discussed with the patient, pt to continue with antiinflammatories. Pt is to call if the symptoms do not improve or if they worsen. . URI - Pt advised to increase fluids, vitamin C. Discussed natural and expected course of this diagnosis and need to alert me if symptoms do not follow expected course, or if any worse. RX sent to patient's pharmacy. Allergies - chronic - recommended pt to use allergy medication as prescribed. Pt has been counseled as to the appropriate use of the medication. Pt to call if allergy symptoms are not controlled with the medication. If using nasal spray, instructions as follows: Nasal spray- use twice daily, one spray per nostril twice daily, after 30 minutes, rinse out nose with saline spray.. Use opposite hand per nostril to spray in the nasal steroid allergy spray. . Spinal stenosis with back pain - refilled hydrocodone- keep appt with [facility] [facility] for treatment of stenosis of arteries, then pt most- likely to have surgical intervention of spine. PAD - pt will need surgical intervention with stenting. Testicular hypofunction - continue with testosterone. . Low back pain- the patient was instructed in appropriate posture, need for weight loss to alleviate abdominal obesity that is worsening the patient's back pain.. The pt is to use prn antiinflammatories to manage acute pain. The patient is to call the office if the pain is worsening or does not improve. Left shoulder pain - keep appt with Dr. Back REFER FOR PHYSICAL THERAPY AT [facility] [place] -HE HAS A PT HE HAS SEEN THERE BEFORE KEEP APPT WITH DR STEWARD . Cervical and lumbar stenosis -refer for PT to evaluate and treat -follow up with DR Steward as scheduled -refill hydrocodone for prn use only -discussed with patient that he is to use it for breakthrough pain only -patient verbalized understanding of plan. rocephin and kenalog augmentin to [facility] call friday if not starting to feel better . Sinusitis - Pt has acute infection - pain in face, maxillary region, Pt informed to use decongestant, RX given to patient, sinus rinses also recommended. Call if symptoms do not show improvement. . Increased left shoulder pain and weakness after fall - Discussed with Dr. Back office - they are going to contact him tomorrow for a possible appointment - pt is to notify clinic with any change in the current treatment plan.
--- OUTSIDE RECORDS SUMMARY | 2018-06-12 08:39 | XMS REPORT | CCD ---
Author Author [facility] Organization [facility] Address [address] [place] [address] Phone Care Team Providers Care Machine Inspector Name Role Phone PP Unavailable CCM Unavailable Summary Purpose Interface Exchange Insurance Providers Payer name Policy type / Coverage type Covered alliance party ID Effective Begin Date Effective End Date WPS Medicare Part B Medicare Part B [id number] 2017 Unknown [facility] Medicare Part B [id number] 2017 Unknown Family history Father Diagnosis Age At Onset Heart Attack Unknown Social History Social History Element Codes Description Effective Dates Marital status Unknown 03/14/2017 Number of children Unknown 2 03/14/[address]: 6350578 Former smoker Quit 11/03/00; smoke 1/2 pack/day x15 years 03/14/[address]: 681433451 Never drinks alcohol 03/14/2017 Allergies, Adverse Reactions, Alerts Substance Reaction Codes Entered Date Inactivated Date Status * NO KNOWN ENVIRONMENTAL ALLERGIES Unknown 03/14/2017 No Inactive Date Active * NO KNOWN FOOD ALLERGIES Unknown 03/14/2017 No Inactive Date Active * NO KNOWN DRUG ALLERGIES Unknown 03/14/2017 No Inactive Date Active Past Medical History Illness Codes Condition Status Onset Date Resolved Date Low back pain ICD-9: 724.2 ICD-10: M54.5 Active 12/15/2017 Unknown Pain in left shoulder ICD-9: 719.41 ICD-10: M25.512 Active 07/24/2017 Unknown 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 Active 04/28/2017 Unknown Acute recurrent maxillary sinusitis ICD-9: 461.0 [...] Active 04/28/2017 Unknown 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 Active 03/14/2017 Unknown Chronic pain syndrome ICD-9: 338.4 ICD-10: G89.4 Active 03/14/2017 Unknown Personal history of other diseases of the circulatory system ICD-9: V12.59 ICD-10: Z86.79 Active 03/14/2017 Unknown Presbycusis, 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 Active 03/14/2017 Unknown Problems Condition Codes Effective Dates Condition Status Low back pain ICD-9: 724.2 ICD-10: M54.5 12/15/2017 Active Pain in left shoulder ICD-9: 719.41 ICD-10: M25.512 07/24/2017 Active 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 04/28/2017 Active Acute recurrent maxillary sinusitis ICD-9: 461.0 [...] D75.1 04/28/2017 Active 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 03/14/2017 Active Chronic pain syndrome ICD-9: 338.4 ICD-10: G89.4 03/14/2017 Active Personal history of other diseases of the circulatory system ICD-9: V12.59 ICD-10: Z86.79 03/14/2017 Active Presbycusis, 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 03/14/2017 Active Medications Medication Codes Instructions Start Date Stop Date Status Fill Instructions hydrocodone 5 mg-acetaminophen 325 mg tablet RxNorm: 859655 1-2 Tablet(s) PO Q6 PRN MAY FILL 04/1905/27/2018 06/25/2018 Active hydrocodone 5 mg-acetaminophen 325 mg tablet RxNorm: 222685 1-2 Tablet(s) PO Q6 PRN MAY FILL 04/1905/18/2018 05/26/2018 Inactive testosterone cypionate 200 mg/mL intramuscular oil RxNorm: 2733340 Milliliter(s) IM 2018 2018 Inactive meloxicam 15 mg tablet RxNorm: 573395 TAKE ONE TABLET BY MOUTH DAILY 04/17/2018 08/14/2018 Active potassium chloride ER 10 mEq capsule,extended release RxNorm: 403909 TAKE ONE CAPSULE BY MOUTH DAILY 04/17/20182018 Active clopidogrel 75 mg tablet RxNorm: 634831 TAKE ONE TABLET BY MOUTH DAILY 04/17/2018 08/14/2018 Active hydrocodone 5 mg-acetaminophen 325 mg tablet RxNorm: 387259 1-2 Tablet(s) PO Q6 PRN MAY FILL 04/1904/16/2018 05/15/2018 Inactive Augmentin 875 mg-125 mg tablet RxNorm: 646297 1 Tablet(s) PO BID 04/15/2018 04/14/2018 Inactive Augmentin 875 mg-125 mg tablet RxNorm: 106732 1 Tablet(s) PO BID 04/15/2018 04/28/2018 Inactive testosterone cypionate 200 mg/mL intramuscular kit RxNorm: 798256 1/2 Milliliter(s ) IM [id number] 04/13/2018 10/09/2018 Active testosterone cypionate 200 mg/mL intramuscular oil RxNorm: 2803595 Milliliter(s) IM 04/13/2018 04/13/2018 Inactive prednisone 20 mg tablet RxNorm: 825716 1 Tablet(s) PO BID 04/0904/13/2018 Inactive Augmentin 875 mg-125 mg tablet RxNorm: 207414 1 Tablet(s) PO BID 04/09/2018 04/11/2018 Inactive Kenalog 40 mg/mL suspension for injection RxNorm: 4248689 1 Milliliter(s) Inj 04/07/2018 04/07/2018 Inactive Kenalog 40 mg/mL suspension for injection RxNorm: 2063257 Milliliter(s) Inj 04/03/2018 04/03/2018 Inactive Augmentin 875 mg-125 mg tablet RxNorm: 348963 1 Tablet(s) PO BID 04/03/2018 04/08/2018 Inactive ceftriaxone 500 mg solution for injection RxNorm: 2718457 Inj 04/03/2018 04/03/2018 Inactive atorvastatin 40 mg tablet RxNorm: 507422 TAKE ONE TABLET BY MOUTH DAILY 03/20/2018 09/10/2019 Active mupirocin 2 % topical ointment RxNorm: 107474 1 Application TOP BID 03/20/2018 03/26/2018 Inactive hydrocodone 5 mg-acetaminophen 325 mg tablet RxNorm: 518421 1-2 Tablet(s) PO Q6 PRN 03/20/2018 04/15/2018 Inactive Keflex 500 mg capsule RxNorm: 600061 1 Capsule(s) PO TID 201803/26/2018 Inactive zolpidem 5 mg tablet RxNorm: 053340 Tablet(s) TAKE ONE TABLET BY MOUTH EVERY NIGHT AT BEDTIME NEEDED 03/18/2018 Active furosemide 40 mg tablet RxNorm: 844648 TAKE ONE TABLET BY MOUTH DAILY 03/17/2018 09/12/2018 Active clopidogrel 75 mg tablet RxNorm: 025692 1 Tablet(s) PO daily 04/15/2018 Inactive testosterone cypionate 200 mg/mL intramuscular oil RxNorm: 3115797 Milliliter(s) IM 03/06/2018 03/06/2018 Inactive testosterone cypionate 200 mg/mL intramuscular oil RxNorm: 8829908 Milliliter(s) IM 02/19/2018 02/19/2018 Inactive hydrocodone 5 mg-acetaminophen 325 mg tablet RxNorm: 296878 1-2 Tablet(s) PO Q6 PRN 02/18/2018 03/09/2018 Inactive zolpidem 5 mg tablet RxNorm: 520326 TAKE ONE TABLET BY MOUTH EVERY NIGHT AT BEDTIME NEEDED 02/13/2018 04/08/2018 Inactive meloxicam 15 mg tablet RxNorm: 983348 TAKE ONE TABLET BY MOUTH DAILY 02/13/2018 04/16/2018 Inactive testosterone cypionate 200 mg/mL intramuscular kit RxNorm: 913835 1/2 Milliliter(s ) IM [id number] 02/03/2018 04/12/2018 Inactive testosterone cypionate 200 mg/mL intramuscular oil RxNorm: 173435 Milliliter(s) IM 02/03/2018 02/03/2018 Inactive cefdinir 300 mg capsule RxNorm: 765094 1 Capsule(s) PO BID 01/18/2018 Inactive prednisone 20 mg tablet RxNorm: 664502 2 Tablet(s) PO QAM 01/0901/08/2018 Inactive cefdinir 300 mg capsule RxNorm: 638426 1 Capsule(s) PO BID 01/08/2018 Inactive prednisone 20 mg tablet RxNorm: 092295 2 Tablet(s) PO QAM 01/0904/08/2018 Inactive Zithromax Z-Timothy 250 mg tablet RxNorm: 019774 1 Tablet(s) PO UD 01/07/2018 04/08/2018 Inactive Kenalog 40 mg/mL suspension for injection RxNorm: 9726904 Milliliter(s) Inj 01/07/2018 01/07/2018 Inactive ceftriaxone 500 mg solution for injection RxNorm: 3958146 Inj 01/07/2018 01/07/2018 Inactive testosterone cypionate 200 mg/mL intramuscular oil RxNorm: 371493 1/2 Milliliter(s ) IM 01/05/2018 01/05/2018 Inactive hydrocodone 5 mg-acetaminophen 325 mg tablet RxNorm: 455843 1-2 Tablet(s) PO Q6 PRN 12/22/2017 02/17/2018 Inactive zolpidem 5 mg tablet RxNorm: 456740 1 Tablet(s) PO 30 min before QHS 12/15/2017 02/12/2018 Inactive testosterone cypionate 200 mg/mL intramuscular oil RxNorm: 063938 Milliliter(s) IM 12/15/2017 12/15/2017 Inactive testosterone cypionate 200 mg/mL intramuscular oil RxNorm: 866709 1/2 Milliliter(s ) IM 12/04/2017 12/04/2017 Inactive testosterone cypionate 200 mg/mL intramuscular oil RxNorm: 068712 1/2 Milliliter(s ) IM 11/17/2017 11/17/2017 Inactive potassium chloride ER 10 mEq capsule,extended release RxNorm: 031367 TAKE ONE CAPSULE BY MOUTH DAILY 11/11/20172018 Inactive testosterone cypionate 200 mg/mL intramuscular oil RxNorm: 261826 Milliliter(s) IM 10/22/2017 10/22/2017 Inactive zolpidem 5 mg tablet RxNorm: 163873 1 Tablet(s) PO 30 min before QHS 10/15/2017 10/14/2017 Inactive zolpidem 5 mg tablet RxNorm: 631382 1 Tablet(s) PO 30 min before QHS 10/15/2017 12/13/2017 Inactive Zithromax Z-Timothy 250 mg tablet RxNorm: 041747 1 Tablet(s) PO UD 10/07/2017 11/16/2017 Inactive testosterone cypionate 200 mg/mL intramuscular oil RxNorm: 759014 Milliliter(s) IM 10/06/2017 10/06/2017 Inactive Kenalog 40 mg/mL suspension for injection RxNorm: 1179427 Milliliter(s) Inj 10/06/2017 10/06/2017 Inactive Zithromax Z-Timothy 250 mg tablet RxNorm: 353282 1 Tablet(s) PO UD 10/06/2017 10/06/2017 Inactive testosterone cypionate 200 mg/mL intramuscular oil RxNorm: 469907 Milliliter(s) IM 09/23/2017 09/23/2017 Inactive testosterone cypionate 200 mg/mL intramuscular kit RxNorm: 735999 1/2 Milliliter(s ) IM [id number] 08/28/2017 02/02/2018 Inactive meloxicam 15 mg tablet RxNorm: 268453 TAKE ONE TABLET BY MOUTH DAILY 08/28/2017 02/12/2018 Inactive testosterone cypionate 200 mg/mL intramuscular oil RxNorm: 005367 Milliliter(s) IM 08/28/2017 08/28/2017 Inactive testosterone cypionate 200 mg/mL intramuscular oil RxNorm: 346734 1/2 Milliliter(s ) IM 08/12/2017 08/12/2017 Inactive meloxicam 15 mg tablet RxNorm: 204648 1 Tablet(s) PO daily 08/201708/27/2017 Inactive atorvastatin 40 mg tablet RxNorm: 628790 TAKE ONE TABLET BY MOUTH DAILY 07/30/2017 02/24/2018 Inactive furosemide 40 mg tablet RxNorm: 180744 TAKE ONE TABLET BY MOUTH DAILY 07/30/2017 02/24/2018 Inactive testosterone cypionate 200 mg/mL intramuscular oil RxNorm: 791248 1/2 Milliliter(s ) IM 07/28/2017 07/28/2017 Inactive testosterone cypionate 200 mg/mL intramuscular oil RxNorm: 603485 1/2 Milliliter(s ) IM 07/14/2017 07/14/2017 Inactive testosterone cypionate 200 mg/mL intramuscular oil RxNorm: 950820 1/2 Milliliter(s ) IM 06/26/2017 06/26/2017 Inactive hydrocodone 5 mg-acetaminophen 325 mg tablet RxNorm: 670872 1 Tablet(s) PO QHS and 1 tab PO daily PRN pain 06/09/2017 Inactive hydrocodone 5 mg-acetaminophen 325 mg tablet RxNorm: 859875 1 Tablet(s) PO daily 06/09/2017 06/18/2017 Inactive testosterone cypionate 200 mg/mL intramuscular oil RxNorm: 008841 1/2 Milliliter(s ) IM 06/09/2017 06/09/2017 Inactive testosterone cypionate 200 mg/mL intramuscular oil RxNorm: 577271 Milliliter(s) IM 05/27/2017 05/27/2017 Inactive testosterone cypionate 200 mg/mL intramuscular oil RxNorm: 130746 Milliliter(s) IM 05/13/2017 05/13/2017 Inactive potassium chloride ER 10 mEq capsule,extended release RxNorm: 812848 1 Capsule(s) PO daily 05/07/2017 11/02/2017 Inactive Vitamin D2 50,000 unit capsule RxNorm: 139969 1 Capsule(s) PO QW 05/06/2017 05/05/2017 Inactive take with OTC vitamin d 2,000 units QD testosterone cypionate 200 mg/mL intramuscular kit RxNorm: 789537 1/2 kit IM 2 x month 05/06/2017 08/27/2017 Inactive Vitamin D2 50,000 unit capsule RxNorm: 495771 1 Capsule(s) PO QW 05/06/2017 08/03/2017 Inactive take with OTC vitamin d 2,000 units QD testosterone cypionate 200 mg/mL intramuscular oil RxNorm: 792870 1/2 Milliliter(s ) IM 04/29/2017 04/29/2017 Inactive fluorouracil 5 % topical cream RxNorm: 693070 1 Application TOP BID 04/28/2017 05/07/2017 Inactive testosterone cypionate 200 mg/mL intramuscular kit RxNorm: 347480 1/2 IM 2 x month 04/28/2017 05/05/2017 Inactive Pamelor 10 mg capsule RxNorm: 461221 1 Capsule(s) PO daily No Start Date Active gabapentin 300 mg capsule RxNorm: 528765 6 Capsule(s) PO daily No Start Date Active cyclobenzaprine 5 mg tablet RxNorm: 163734 1 Tablet(s) PO as needed No Start Date Active diclofenac 1 % topical gel RxNorm: 951508 1 Gram(s) TOP as needed No Start Date Active meloxicam 15 mg tablet RxNorm: 532663 1 Tablet(s) PO daily No Start Date 07/30/2017 Inactive potassium chloride ER 10 mEq tablet,extended release RxNorm: 957779 1 Tablet(s) PO daily No Start Date 05/06/2017 Inactive hydrocodone 5 mg-acetaminophen 325 mg tablet RxNorm: 496132 1 Tablet(s) PO daily No Start Date 06/08/2017 Inactive furosemide 40 mg tablet RxNorm: 126590 1 Tablet(s) PO daily No Start Date 07/29/2017 Inactive atorvastatin 40 mg tablet RxNorm: 841107 1 Tablet(s) PO QHS No Start Date 07/29/2017 Inactive clopidogrel 75 mg tablet RxNorm: 475294 1 Tablet(s) PO daily No Start Date 03/16/2018 Inactive Medication Administered Medication Codes Instructions Start Date Status testosterone cypionate 200 mg/mL intramuscular oil RxNorm: 4174539 Milliliter 2018 No longer Active testosterone cypionate 200 mg/mL intramuscular oil RxNorm: 2831482 Milliliter 04/13/2018 No longer Active Kenalog 40 mg/mL suspension for injection RxNorm: 5643257 1Milliliter 04/07/2018 No longer Active Kenalog 40 mg/mL suspension for injection RxNorm: 5965271 Milliliter 04/03/2018 No longer Active ceftriaxone 500 mg solution for injection RxNorm: 1541741 04/03/2018 No longer Active testosterone cypionate 200 mg/mL intramuscular oil RxNorm: 5030680 Milliliter 03/06/2018 No longer Active testosterone cypionate 200 mg/mL intramuscular oil RxNorm: 0611524 Milliliter 02/19/2018 No longer Active testosterone cypionate 200 mg/mL intramuscular oil RxNorm: 382091 Milliliter 02/03/2018 No longer Active Kenalog 40 mg/mL suspension for injection RxNorm: 6908658 Milliliter 01/07/2018 No longer Active ceftriaxone 500 mg solution for injection RxNorm: 9788844 01/07/2018 No longer Active testosterone cypionate 200 mg/mL intramuscular oil RxNorm: 714199 /2Milliliter 01/05/2018 No longer Active testosterone cypionate 200 mg/mL intramuscular oil RxNorm: 608129 Milliliter 12/15/2017 No longer Active testosterone cypionate 200 mg/mL intramuscular oil RxNorm: 822434 /2Milliliter 12/04/2017 No longer Active testosterone cypionate 200 mg/mL intramuscular oil RxNorm: 740322 1/2Milliliter 11/17/2017 No longer Active testosterone cypionate 200 mg/mL intramuscular oil RxNorm: 805550 Milliliter 10/22/2017 No longer Active Kenalog 40 mg/mL suspension for injection RxNorm: 3490903 Milliliter 10/06/2017 No longer Active testosterone cypionate 200 mg/mL intramuscular oil RxNorm: 165535 Milliliter 10/06/2017 No longer Active testosterone cypionate 200 mg/mL intramuscular oil RxNorm: 192069 Milliliter 09/23/2017 No longer Active testosterone cypionate 200 mg/mL intramuscular oil RxNorm: 402516 Milliliter 08/28/2017 No longer Active testosterone cypionate 200 mg/mL intramuscular oil RxNorm: 804121 /2Milliliter 08/12/2017 No longer Active testosterone cypionate 200 mg/mL intramuscular oil RxNorm: 019452 /2Milliliter 07/28/2017 No longer Active testosterone cypionate 200 mg/mL intramuscular oil RxNorm: 502810 /2Milliliter 07/14/2017 No longer Active testosterone cypionate 200 mg/mL intramuscular oil RxNorm: 274142 /2Milliliter 06/26/2017 No longer Active testosterone cypionate 200 mg/mL intramuscular oil RxNorm: 943011 /2Milliliter 06/09/2017 No longer Active testosterone cypionate 200 mg/mL intramuscular oil RxNorm: 459296 Milliliter 05/27/2017 No longer Active testosterone cypionate 200 mg/mL intramuscular oil RxNorm: 669109 Milliliter 05/13/2017 No longer Active testosterone cypionate 200 mg/mL intramuscular oil RxNorm: 696918 /2Milliliter 04/29/2017 No longer Active Immunizations Vaccine Codes Date Status Influenza CVX: 141 11/17/2017 completed Assessments Condition Codes Effective Dates Low back pain ICD-10: M54.5 ICD-9: 724.2 05/27/2018 Pain in left shoulder ICD-10: M25.512 ICD-9: 719.41 05/27/2018 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 ICD-9: 257.2 2018 Acute recurrent maxillary sinusitis ICD-10: J01.01 ICD-9: [...] ICD-9: 380.4 03/17/2017 Atherosclerotic heart disease of [place] coronary artery without angina pectoris ICD-10: I25.10 [...] Code Item Item Code Result Date Testosterone Auf971 Testo 375.1 ng/dL 03/02/2018 Cbc With Differential [...] 25.6 pg 03/02/2018 Cbc With Differential Ord2 [place]% 7.9 % 03/02/2018 Cbc With Differential Ord2 [...] 1.41 K/ul 03/02/2018 Cbc With Differential Ord2 [place] ABS# 0.8 K/ul 03/02/2018 Cbc With Differential Ord2 Eos ABS# 0.2 K/ul 03/02/2018 Cbc With Differential Ord2 Baso ABS# 0.1 K/ul 03/02/2018 Influenza A+B Lul510 Influ A+B Negative 01/08/2018 C A/B FLU 3220443 Influenza A Scr TNP:Improper Specimen 01/07 C A/B FLU [id number] Influenza B Scr TNP:Improper Specimen 01/07 C A/B FLU [id number] Influenza Intrp B AG: PRID:PT:NOSE:NOM:IF TNP:Improper Specimen 01/07/2018 C A/B FLU [id number] IC OK? TNP:Improper Specimen 01/07/2018 Hepatic Cwi415 ALBUMIN 3.7 g/dL 08/06/2017 Hepatic Gfg766 TPRO 5.9 g/dL 08/06/2017 Hepatic Exb151 GLOB 2.2 g/dL 08/06/2017 Hepatic Dqi104 A/G Ratio 1.7 Ratio 08/06/2017 Hepatic Saj954 ALK PHOS 46 U/L 08/06/2017 Hepatic Xra983 ALT(SGPT) 9 U/L 08/06/2017 Hepatic Maa823 AST(SGOT) 13 U/L 08/06/2017 Hepatic Zud694 BILI T 0.6 mg/dL 08/06/2017 Hepatic Xie535 BILI D 0.2 mg/dL 08/06/2017 Hepatic Qdw738 BILI I 0.4 mg/dL 08/06/2017 Testosterone Gqp899 Testo 474.5 ng/dL 08/06/2017 Cbc With Differential [...] 28.5 pg 08/06/2017 Cbc With Differential Ord2 [place]% 11.2 % 08/06/2017 Cbc With Differential Ord2 [...] 1.33 K/ul 08/06/2017 Cbc With Differential Ord2 [place] ABS# 0.6 K/ul 08/06/2017 Cbc With Differential Ord2 Eos ABS# 0.3 K/ul 08/06/2017 Cbc With Differential Ord2 Baso ABS# 0.1 K/ul 08/06/2017 Comp Metabolic Btk450 NA 140 mEq/L 06/02/2017 Comp Metabolic Xuc287 K 3.8 mEq/L 06/02/2017 Comp Metabolic Czb396 CL 102 mEq/L 06/02/2017 Comp Metabolic Khr834 CO2 30.0 mEq/L 06/02/2017 Comp Metabolic Cvt232 ANION GAP 12 06/02/2017 Comp Metabolic Zvy495 GLUCOSE 100 mg/dL 06/02/2017 Comp Metabolic Aig139 Creat 1.1 mg/dL 06/02/2017 Comp Metabolic Xlh532 eGFR 69 ml/min/1.73m2 06/02/2017 Comp Metabolic Akq816 BUN 15 mg/dL 06/02/2017 Comp Metabolic Bcm294 B/C Ratio 13.4 Ratio 06/02/2017 Comp Metabolic Uhj269 CALCIUM 8.6 mg/dL 06/02/2017 Comp Metabolic Pyj827 ALK PHOS 63 U/L 06/02/2017 Comp Metabolic Riw079 AST(SGOT) 17 U/L 06/02/2017 Comp Metabolic Cng831 ALT(SGPT) 12 U/L 06/02/2017 Comp Metabolic Dyp924 BILI T 0.5 mg/dL 06/02/2017 Comp Metabolic Yrf417 ALBUMIN 3.9 g/dL 06/02/2017 Comp Metabolic Xux960 TPRO 6.1 g/dL 06/02/2017 Comp Metabolic Bom048 GLOB 2.2 g/dL 06/02/2017 Comp Metabolic Lov474 A/G Ratio 1.8 Ratio 06/02/2017 Comp Metabolic Ovw300 Osmo 280 mOsmo 06/02/2017 Vitamin D 25 Oh Jem8132 VITAMIN D, 25 HYDROXY 40.03 ng/mL Cbc [...] 29.7 pg 06/02/2017 Cbc With Differential Ord2 [place]% 10.5 % 06/02/2017 Cbc With Differential Ord2 [...] 1.52 K/ul 06/02/2017 Cbc With Differential Ord2 [place] ABS# 0.6 K/ul 06/02/2017 Cbc With Differential Ord2 Eos ABS# 0.2 K/ul 06/02/2017 Cbc With Differential Ord2 Baso ABS# 0.1 K/ul 06/02/2017 Testosterone Dsj111 Testo 198.4 ng/dL 04/29/2017 Vitamin D 25 Oh Ebc2695 VITAMIN D, 25 HYDROXY 29.25 ng/mL Lipid [...] accomodation 04/07/2018 None Full Exam - General 1994 Ears/Nose/Throat lips/teeth/gingiva Overall: benign lips 04/07/2018 None Full Exam - General 1994 Ears/Nose/Throat lips/teeth/gingiva Overall: normal dentition 04/07/2018 None Full Exam - General 1994 Ears/Nose/Throat oral cavity/pharynx/larynx Overall: oral mucosa clear 04/07/2018 None Full Exam - General 1995 Ears/Nose/Throat oral cavity/pharynx/larynx Overall: oropharyngeal mucosa clear 04/07/2018 None Full Exam - General 1994 Ears/Nose/Throat oral cavity/pharynx/larynx Overall: hypopharynx benign 04/07/2018 [...] clear 03/10/2018 None Full Exam - General 1995 Ears/Nose/Throat [...] accomodation 04/28/2017 None Full Exam - General 1994 Ears/Nose/Throat lips/teeth/gingiva Overall: benign lips 04/28/2017 None Full Exam - General 1994 Ears/Nose/Throat lips/teeth/gingiva Overall: normal dentition 04/28/2017 None Full Exam - General 1994 [...] Procedure Codes Date THER/PROPH/DIAG INJ SC/IM CPT-4: 75841 2018 THER/PROPH/DIAG INJ SC/IM CPT-4: 00987 04/13/2018 TRIAMCINOLONE ACET INJ NOS CPT-4: J3301 04/07/2018 TRIAMCINOLONE ACET INJ NOS CPT-4: J3301 04/03/2018 ROCEPHIN, PER 250 MG CPT-4: J0696 04/03/2018 THER/PROPH/DIAG INJ SC/IM CPT-4: 95840 03/20/2018 THER/PROPH/DIAG INJ SC/IM CPT-4: 35290 03/06/2018 THER/PROPH/DIAG INJ SC/IM CPT-4: 75164 02/19/2018 THER/PROPH/DIAG INJ SC/IM CPT-4: 79251 02/03/2018 THER/PROPH/DIAG INJ SC/IM CPT-4: 08562 01/07/2018 TRIAMCINOLONE ACET INJ NOS CPT-4: J3301 01/07/2018 ROCEPHIN, PER 250 MG CPT-4: J0696 01/07/2018 THER/PROPH/DIAG INJ SC/IM CPT-4: 36902 01/05/2018 THER/PROPH/DIAG INJ SC/IM CPT-4: 55523 12/15/2017 THER/PROPH/DIAG INJ SC/IM CPT-4: 94013 12/04/2017 PPPS, SUBSEQ VISIT CPT -4: G0439 11/27/2017 ADMIN INFLUENZA VIRUS VAC CPT-4: G0008 11/17/2017 FLU VAC NO PRSV 4 FATOU 3 YRS+ CPT-4: 25281 11/17/2017 THER/PROPH/DIAG INJ SC/IM CPT-4: 35312 11/17/2017 THER/PROPH/DIAG INJ SC/IM CPT-4: 77118 10/22/2017 THER/PROPH/DIAG INJ SC/IM CPT-4: 11433 10/06/2017 TRIAMCINOLONE ACET INJ NOS CPT-4: J3301 10/06/2017 THER/PROPH/DIAG INJ SC/IM CPT-4: 91492 09/23/2017 THER/PROPH/DIAG INJ SC/IM CPT-4: 13615 08/28/2017 THER/PROPH/DIAG INJ SC/IM CPT-4: 53990 08/12/2017 THER/PROPH/DIAG INJ SC/IM CPT-4: 74159 07/28/2017 THER/PROPH/DIAG INJ SC/IM CPT-4: 41444 07/14/2017 THER/PROPH/DIAG INJ SC/IM CPT-4: 85250 06/26/2017 THER/PROPH/DIAG INJ SC/IM CPT-4: 23162 06/09/2017 THER/PROPH/DIAG INJ SC/IM CPT-4: 79063 05/27/2017 THER/PROPH/DIAG INJ SC/IM CPT-4: 15327 05/13/2017 THER/PROPH/DIAG INJ SC/IM CPT-4: 93519 04/29/2017 Vital Signs Date Vital 05/27/2018 Blood Pressure 1: 130/76 Code : 8480-6 BMI: 28.7 Code : 31021-8 Heart Rate 1 : 83 bpm Height: 5'10" SpO2: 97% Weight: 200 lbs 04/09/2018 Blood Pressure 1: 120/70 Code : 8480-6 Heart Rate 1: 66 bpm Height: 5'10" SpO2: 98% Weight: 04/07/2018 Blood Pressure 1: 126/74 Code : 8480-6 BMI: 29.0 Code : 92187-4 Heart Rate 1 : 75 bpm Height: 5'10" SpO2: 98% Weight: 202 lbs 04/03/2018 Blood Pressure 1: 130/74 Code : 8480-6 BMI: 29.0 Code : 35969-5 Heart Rate 1 : 89 bpm Height: 5'10" SpO2: 98% Temperature: 37.4 (C) / 99.4 (F) Weight: 202 lbs 03/20/2018 Blood Pressure 1: 122/60 Code : 8480-6 Heart Rate 1: 76 bpm Height: 5'10" SpO2: 96% Weight: 03/10/2018 Blood Pressure 1: 120/70 Code : 8480-6 BMI: 29.0 Code : 96716-7 Heart Rate 1 : 82 bpm Height: 5'10" SpO2: 95% Weight: 202 lbs 01/07/2018 Blood Pressure 1: 126/66 Code : 8480-6 BMI: 30.1 Code : 99686-7 Heart Rate 1 : 75 bpm Height: 5'10" SpO2: 97% Temperature: 36.5 (C) / 97.7 (F) Weight: 210 lbs 12/22/2017 Blood Pressure 1: 124/70 Code : 8480-6 BMI: 29.7 Code : 16768-2 Heart Rate 1 : 84 bpm Height: 5'10" SpO2: 94% Weight: 207 lbs 12/15/2017 Blood Pressure 1: 122/82 Code : 8480-6 BMI: 30.0 Code : 50802-6 Heart Rate 1 : 82 bpm Height: 5'10" SpO2: 93% Weight: 209 lbs 11/27/2017 Blood Pressure 1: 132/68 Code : 8480-6 BMI: 29.3 Code : 07274-2 Heart Rate 1 : 71 bpm Height: 5'10" SpO2: 97% Waist Measure (cm): 97 cm Weight: 204 lbs 11/17/2017 Blood Pressure 1: 130/80 Code : 8480-6 BMI: 29.3 Code : 42226-6 Heart Rate 1 : 73 bpm Height: 5'10" SpO2: 99% Weight: 204 lbs 10/06/2017 Blood Pressure 1: 124/60 Code : 8480-6 BMI: 28.8 Code : 85520-8 Heart Rate 1 : 70 bpm Height: 5'10" SpO2: 98% Weight: 201 lbs 07/24/2017 Blood Pressure 1: 118/70 Code : 8480-6 BMI: 29.3 Code : 63386-1 Heart Rate 1 : 82 bpm Height: 5'10" SpO2: 96% Weight: 204 lbs 07/14/2017 Blood Pressure 1: 118/72 Code : 8480-6 BMI: 29.1 Code : 93549-4 Heart Rate 1 : 83 bpm Height: 5'10" SpO2: 98% Weight: 203 lbs 06/09/2017 Blood Pressure 1: 120/74 Code : 8480-6 BMI: 29.3 Code : 07597-6 Heart Rate 1 : 91 bpm Height: 5'10" SpO2: 99% Weight: 204 lbs 04/28/2017 Blood Pressure 1: 118/68 Code : 8480-6 BMI: 28.8 Code : 32229-6 Heart Rate 1 : 74 bpm Height: 5'10" SpO2: 96% Weight: 201 lbs 03/14/2017 Blood Pressure 1: 114/74 Code : 8480-6 BMI: 28.6 Code : 27843-7 Heart Rate 1 : 77 bpm Height: [...] data Encounters Encounter Performer Location Codes Date ([id number]) [id number] EST. PATIENT, LEVEL IV Diagnosis: Low back pain[ICD10: M54.5] Diagnosis: Pain in left shoulder[ICD10: M25.512] Leora Hollis MD, [facility] CPT-4: 97135 05/27/2018 ([id number]) [id number] EST. PATIENT, LEVEL II Diagnosis: Other allergic rhinitis[ICD10: J30.89] Diagnosis: Acute recurrent maxillary sinusitis[ICD10: J01.01] Elise Hollis MD, [facility] CPT-4: 74558 04/09/2018 ([id number]) [id number] EST. PATIENT, LEVEL III Diagnosis: Low back pain[ICD10: M54.5] Diagnosis: Sciatica, left side[ICD10: M54.32] Elise Hollis MD, [facility] CPT-4: 00376 04/07/2018 ([id number]) [id number] EST. PATIENT, LEVEL III Diagnosis: Acute recurrent maxillary sinusitis[ICD10: J01.01] Diagnosis: Cough[ICD10: R05] Elise Hollis MD, [facility] CPT-4: 02537 04/03/2018 [id number] EST. 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 PATIENT, LEVEL III Diagnosis: Other malaise[ICD10: R53.81] Diagnosis: Acute laryngopharyngitis[ICD10: J06.0] Diagnosis: Other allergic rhinitis[ICD10: J30.89] Sapphire Hollis MD, [facility] CPT-4: 01345 01/07/2018 ([id number]) 23102 EST. PATIENT, LEVEL III Diagnosis: Spinal stenosis, lumbosacral region[ICD10: M48.07] Diagnosis: Spinal stenosis, cervical region[ICD10: M48.02] Elise Hollis MD, [facility] CPT-4: 34763 12/22/2017 ([id number]) 42138 EST. 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 PATIENT, LEVEL III Diagnosis: Mixed hyperlipidemia[ICD10: E78.2] Diagnosis: Other insomnia[ICD10: G47.09] Leora Hollis MD, [facility] CPT- 4: 76776 11/17/2017 [id number] EST. PATIENT, LEVEL III Diagnosis: Acute laryngopharyngitis[ICD10: J06.0] Diagnosis: Other allergic rhinitis[ICD10: J30.89] Sapphire Hollis MD, [facility] CPT-4: 78524 10/06/2017 38303 EST. PATIENT, LEVEL III Diagnosis: Pain in left shoulder[ICD10: M25.512] Sapphire Hollis MD, [facility] CPT-4: 87283 07/24/2017 ([id number]) 98130 EST. 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 Back 05/27/2018 Patient Education: Patient Medication Summary Completed 05/27/2018 Patient Education: Back Pain Completed 05/27/2018 Appointment: Injection 2018 Patient Education: Patient Medication Summary Completed 2018 Appointment: Injection 04/13/2018 Patient Education: Patient Medication Summary Completed 04/13/2018 Visit Plan: Sinusitis-allergic rhinitis-extend abx x 3 more days-short course of prednisone -let us know if symptoms do not resolve completely. 04/09/2018 Appointment: Elise Castillo WPtel: [phone] (15 min) Moderate 04/09/2018 Appointment: Elise Castillo WPtel: [facility] [phone] (15 min) Moderate 04/09/2018 Patient Education: Patient Medication Summary Completed 04/09/2018 Visit Plan: Sciatica-left- kenalog injection today in the office- exercises discussed with the patient, pt to continue with antiinflammatories. Pt is to call if the symptoms do not improve or if they worsen. 04/07/2018 Appointment: Elise Castillo WPtel: [phone] (15 min) Moderate 04/07/2018 Patient Education: Patient Medication Summary Completed 04/07/2018 Patient Education: Back Pain Completed 04/07/2018 Visit Plan: Sinusitis - Pt has acute infection - pain in face, maxillary region, Pt informed to use decongestant, RX given to patient, sinus rinses also recommended. Call if symptoms do not show improvement. 04/03/2018 Appointment: lEise Castillo WPtel: [phone] (15 min) Moderate 04/03/2018 Patient Education: Patient [...] Dr Back 03/20/2018 Appointment: Elise Castillo WPtel: [phone] [place] (15 min) Moderate 03/20/2018 Appointment: (15 min) Moderate 03/20/2018 Patient Education: Patient Medication Summary Completed 03/20/2018 Visit Plan: Spinal stenosis with back pain - refilled hydrocodone- keep appt with [facility] for treatment of stenosis of arteries, then pt most-likely to have surgical intervention of spine. PAD - pt will need surgical intervention with stenting. Testicular hypofunction - continue with testosterone. 03/10/2018 Appointment: Leora Hollis [facility] [place] (15 min) Moderate 03/10/2018 Patient Education: Patient Medication Summary Completed 03/10/2018 Patient Education: Back Pain Completed 03/10/2018 Patient Education: Cholesterol Management Completed 03/10/2018 Appointment: Le[facility] Hollis [facility]el[facility] [place] (15 min) Moderate 03/09/2018 Appointment: Injection 03/06/2018 [...] allergy spray. 01/07/2018 Appointment: Sapphire Oneil WPtel: [phone] (15 min) Moderate 01/07/2018 Patient Education: Patient [...] of plan. 12/22/2017 Appointment: [phone] (15 min) Moderate 12/22/2017 Patient Education: Patient Medication Summary Completed 12/22/2017 Visit Plan: Neck and low back pain -will schedule MRI lumbar and cervical spine for further evaluation and proceed as indicated- patient verbalized understanding of plan. 12/15/2017 Appointment: [phone] (15 min) Moderate 12/15/2017 Patient Education: Patient Medication Summary Completed 12/15/2017 Patient Education: Back Pain Completed 12/15/2017 Care Plan: MRI LUMBAR SPINE W/O DYE LOINC : 78962-5 Pending 12/15/2017 Care Plan: MRI NECK SPINE W/O DYE LOINC : 16177-9 Pending 12/15/2017 Appointment: Injection 12/04/2017 Patient Education: [...] for health care surrogate. 11/27/2017 Appointment: Sapphire Oneil [phone] [place] [facility] - Annual Wellness Visit 11/27/2017 Patient Education: [...] to sleep 11/17/2017 Appointment: Leora Hollis [facility]Ptel: [facility] (15 min) Moderate 11/17/2017 Patient Education: Patient [...] allergy spray. 10/06/2017 Appointment: Leora Hollis [facility]Ptel: [facility] (15 min) Moderate 10/06/2017 Appointment: Sapphire Oneil WPtel: [facility] (15 min) Moderate 10/06/2017 Patient Education: Patient [...] the current treatment plan. 07/24/2017 Appointment: [facility] Oneill[phone] (30 min) Complex 07/24/2017 Patient Education: Patient [...] to medications. 07/14/2017 Appointment: [phone] [facility] (15 min) Moderate 07/14/2017 Patient Education: Patient Medication Summary Completed 07/14/2017 Appointment: [facility] (15 min) Moderate 07/10/2017 Appointment: Injection 06/26/2017 [...] at night 06/09/2017 Appointment: [facility] (30 min) Complex 06/09/2017 Patient Education: Patient [...] of 15 04/28/2017 Appointment: [facility] Hollis [facility] (30 min) Complex 04/28/2017 Patient Education: Patient [...] nights and to come in on Friday morning for ear wax removal 03/14/2017 Appointment: [phone] [facility] New Patient 03/14/2017 Patient Education: Patient Medication [...] nights and to come in on Friday morning for ear wax removal for insomnia - I recommend Extended Release [...] if having trouble getting to sleep . URI - Pt advised to increase [...] spray in the nasal steroid allergy spray. CALL FRIDAY IF NOT BETTER AND WE CAN SEND IN A SHORT COURSE OF PREDNISONE . Sciatica-left- kenalog injection today in the office- exercises discussed with the patient, pt to continue with antiinflammatories. Pt is to call if the symptoms do not improve or if they worsen. . Sinusitis-allergic rhinitis-extend abx x 3 more days- short course of prednisone -let us know if symptoms do not resolve completely. . Hypogonadism - pt has hx of [...] epworth sleepiness scale score of 15 . COPD - chronic problem for this [...] to assure normal liver response to medications. MRI cervical and lumbar spine testosterone injection . Neck and low back pain -will schedule MRI lumbar and cervical spine for further evaluation and proceed as indicated-patient verbalized understanding of plan. . Medicare Exam - today we discussed [...] her [employer] paperwork for health care surrogate. . Hypogonadism - testosterone shot to be given every two weeks as previously discussed - pt to have labs in 3 months Hypersomnia with polycythemia - I have recommended pt to start on oxygen - Pt wants to use [employer] for oxygen concentrator with humidification at night . URI - Pt advised to increase [...] spray in the nasal steroid allergy spray. mupirocin ointment to lesion on right cheek [...] tear -schedule appt with Dr Back . Spinal stenosis with back pain - refilled hydrocodone- keep appt with [facility] for treatment of stenosis of arteries, then [...] Back REFER FOR PHYSICAL THERAPY [facility] -HE HAS A PT HE HAS SEEN [...]
--- OUTSIDE RECORDS SUMMARY | 2018-06-12 08:42 | XMS REPORT | CCD ---
Author Author [facility] Organization [facility] Address [address] [place] [address] Phone Care Team Providers Care Manager Mobile Name Role Phone PP Unavailable CCM Unavailable Summary Purpose Interface Exchange Insurance Providers Payer name Policy type / Coverage type Covered green party ID Effective Begin Date Effective End Date WPS Medicare Part B Medicare Part B [id number] 2017 Unknown [facility] Medicare Part B [id number] 2017 Unknown Family history Father Diagnosis Age At Onset Heart Attack Unknown Social History Social History Element Codes Description Effective Dates Marital status Unknown 03/14/2017 Number of children Unknown 2 03/14/[address]: 1888091 Former smoker Quit 11/03/00; smoke 1/2 pack/day x15 years 03/14/[address]: 128873363 Never drinks alcohol 03/14/2017 Allergies, Adverse Reactions, [...] ICD-9: 380.4 ICD-10: H61.23 Active 03/14/2017 Unknown Low back pain ICD-9: 724.2 ICD-10: M54.5 Active 12/15/2017 Unknown Sciatica, left side ICD-9: 724.3 ICD-10: M54.32 Active 04/07/2018 Unknown Cough ICD-9: 786.2 ICD-10: R05 Active 04/03/2018 Unknown Cellulitis of face ICD -9: 682.0 ICD-10: L03.211 Active 03/20/2018 Unknown Pain in left shoulder ICD-9: 719.41 ICD-10: M25.512 Active 07/24/2017 Unknown Mixed hyperlipidemia ICD-9: 272.2 ICD-10: E78.2 [...] Active 04/28/2017 Unknown Atherosclerotic heart disease of three affiliated coronary artery without angina pectoris ICD-9: 414.00 [...] bilateral ICD-9: 380.4 ICD-10: H61.23 03/14/2017 Active Low back pain ICD-9: 724.2 ICD-10: M54.5 12/15/2017 Active Sciatica, left side ICD-9: 724.3 ICD-10: M54.32 04/07/2018 Active Cough ICD-9: 786.2 ICD-10: R05 04/03/2018 Active Cellulitis of face ICD -9: 682.0 ICD-10: L03.211 03/20/2018 Active Pain in left shoulder ICD-9: 719.41 ICD-10: M25.512 07/24/2017 Active Mixed hyperlipidemia ICD-9: 272.2 ICD-10: E78.2 [...] D75.1 04/28/2017 Active Atherosclerotic heart disease of three affiliated coronary artery without angina pectoris ICD-9: 414.00 ICD-10: I25.10 03/14/2017 Active Chronic pain syndrome ICD-9: 338.4 ICD-10: G89.4 03/14/2017 Active Personal history of other diseases of the circulatory system ICD-9: V12.59 ICD-10: Z86.79 03/14/2017 Active Presbycusis, 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 03/14/2017 Active Medications Medication Codes Instructions Start Date Stop Date Status Fill Instructions hydrocodone 5 mg-acetaminophen 325 mg tablet RxNorm: 916171 1-2 Tablet(s) PO Q6 PRN MAY FILL 04/1905/18/2018 06/16/2018 Active testosterone cypionate 200 mg/mL intramuscular oil RxNorm: 0652187 Milliliter(s) IM 2018 2018 Inactive meloxicam 15 mg tablet RxNorm: 987716 TAKE ONE TABLET BY MOUTH DAILY 04/17/2018 08/14/2018 Active potassium chloride ER 10 mEq capsule,extended release RxNorm: 050633 TAKE ONE CAPSULE BY MOUTH DAILY 04/17/20182018 Active clopidogrel 75 mg tablet RxNorm: 521973 TAKE ONE TABLET BY MOUTH DAILY 04/17/2018 08/14/2018 Active hydrocodone 5 mg-acetaminophen 325 mg tablet RxNorm: 462036 1-2 Tablet(s) PO Q6 PRN MAY FILL 04/1904/16/2018 05/15/2018 Inactive Augmentin 875 mg-125 mg tablet RxNorm: 537584 1 Tablet(s) PO BID 04/15/2018 04/14/2018 Inactive Augmentin 875 mg-125 mg tablet RxNorm: 982643 1 Tablet(s) PO BID 04/15/2018 04/28/2018 Inactive testosterone cypionate 200 mg/mL intramuscular kit RxNorm: 317810 1/2 Milliliter(s ) IM [id number] 04/13/2018 10/09/2018 Active testosterone cypionate 200 mg/mL intramuscular oil RxNorm: 0594816 Milliliter(s) IM 04/13/2018 04/13/2018 Inactive prednisone 20 mg tablet RxNorm: 839086 1 Tablet(s) PO BID 04/0904/13/2018 Inactive Augmentin 875 mg-125 mg tablet RxNorm: 945722 1 Tablet(s) PO BID 04/09/2018 04/11/2018 Inactive Kenalog 40 mg/mL suspension for injection RxNorm: 8139153 1 Milliliter(s) Inj 04/07/2018 04/07/2018 Inactive Kenalog 40 mg/mL suspension for injection RxNorm: 2782694 Milliliter(s) Inj 04/03/2018 04/03/2018 Inactive Augmentin 875 mg-125 mg tablet RxNorm: 455662 1 Tablet(s) PO BID 04/03/2018 04/08/2018 Inactive ceftriaxone 500 mg solution for injection RxNorm: 9518364 Inj 04/03/2018 04/03/2018 Inactive atorvastatin 40 mg tablet RxNorm: 543166 TAKE ONE TABLET BY MOUTH DAILY 03/20/2018 09/10/2019 Active mupirocin 2 % topical ointment RxNorm: 341243 1 Application TOP BID 03/20/2018 03/26/2018 Inactive hydrocodone 5 mg-acetaminophen 325 mg tablet RxNorm: 623808 1-2 Tablet(s) PO Q6 PRN 03/20/2018 04/15/2018 Inactive Keflex 500 mg capsule RxNorm: 857041 1 Capsule(s) PO TID 201803/26/2018 Inactive zolpidem 5 mg tablet RxNorm: 542695 Tablet(s) TAKE ONE TABLET BY MOUTH EVERY NIGHT AT BEDTIME NEEDED 03/18/2018 Active furosemide 40 mg tablet RxNorm: 878150 TAKE ONE TABLET BY MOUTH DAILY 03/17/2018 09/12/2018 Active clopidogrel 75 mg tablet RxNorm: 517380 1 Tablet(s) PO daily 04/15/2018 Inactive testosterone cypionate 200 mg/mL intramuscular oil RxNorm: 6881378 Milliliter(s) IM 03/06/2018 03/06/2018 Inactive testosterone cypionate 200 mg/mL intramuscular oil RxNorm: 1558369 Milliliter(s) IM 02/19/2018 02/19/2018 Inactive hydrocodone 5 mg-acetaminophen 325 mg tablet RxNorm: 841780 1-2 Tablet(s) PO Q6 PRN 02/18/2018 03/09/2018 Inactive zolpidem 5 mg tablet RxNorm: 763366 TAKE ONE TABLET BY MOUTH EVERY NIGHT AT BEDTIME NEEDED 02/13/2018 04/08/2018 Inactive meloxicam 15 mg tablet RxNorm: 665191 TAKE ONE TABLET BY MOUTH DAILY 02/13/2018 04/16/2018 Inactive testosterone cypionate 200 mg/mL intramuscular kit RxNorm: 707739 1/2 Milliliter(s ) IM [id number] 02/03/2018 04/12/2018 Inactive testosterone cypionate 200 mg/mL intramuscular oil RxNorm: 173520 Milliliter(s) IM 02/03/2018 02/03/2018 Inactive cefdinir 300 mg capsule RxNorm: 418063 1 Capsule(s) PO BID 01/18/2018 Inactive prednisone 20 mg tablet RxNorm: 744127 2 Tablet(s) PO QAM 01/0901/08/2018 Inactive cefdinir 300 mg capsule RxNorm: 689226 1 Capsule(s) PO BID 01/08/2018 Inactive prednisone 20 mg tablet RxNorm: 315499 2 Tablet(s) PO QAM 01/0904/08/2018 Inactive Zithromax Z-Timothy 250 mg tablet RxNorm: 253461 1 Tablet(s) PO UD 01/07/2018 04/08/2018 Inactive Kenalog 40 mg/mL suspension for injection RxNorm: 9355603 Milliliter(s) Inj 01/07/2018 01/07/2018 Inactive ceftriaxone 500 mg solution for injection RxNorm: 6363249 Inj 01/07/2018 01/07/2018 Inactive testosterone cypionate 200 mg/mL intramuscular oil RxNorm: 041658 1/2 Milliliter(s ) IM 01/05/2018 01/05/2018 Inactive hydrocodone 5 mg-acetaminophen 325 mg tablet RxNorm: 370908 1-2 Tablet(s) PO Q6 PRN 12/22/2017 02/17/2018 Inactive zolpidem 5 mg tablet RxNorm: 165732 1 Tablet(s) PO 30 min before QHS 12/15/2017 02/12/2018 Inactive testosterone cypionate 200 mg/mL intramuscular oil RxNorm: 675254 Milliliter(s) IM 12/15/2017 12/15/2017 Inactive testosterone cypionate 200 mg/mL intramuscular oil RxNorm: 603143 1/2 Milliliter(s ) IM 12/04/2017 12/04/2017 Inactive testosterone cypionate 200 mg/mL intramuscular oil RxNorm: 445479 1/2 Milliliter(s ) IM 11/17/2017 11/17/2017 Inactive potassium chloride ER 10 mEq capsule,extended release RxNorm: 972466 TAKE ONE CAPSULE BY MOUTH DAILY 11/11/20172018 Inactive testosterone cypionate 200 mg/mL intramuscular oil RxNorm: 460850 Milliliter(s) IM 10/22/2017 10/22/2017 Inactive zolpidem 5 mg tablet RxNorm: 644630 1 Tablet(s) PO 30 min before QHS 10/15/2017 10/14/2017 Inactive zolpidem 5 mg tablet RxNorm: 446602 1 Tablet(s) PO 30 min before QHS 10/15/2017 12/13/2017 Inactive Zithromax Z-Timothy 250 mg tablet RxNorm: 664877 1 Tablet(s) PO UD 10/07/2017 11/16/2017 Inactive testosterone cypionate 200 mg/mL intramuscular oil RxNorm: 884082 Milliliter(s) IM 10/06/2017 10/06/2017 Inactive Kenalog 40 mg/mL suspension for injection RxNorm: 6707447 Milliliter(s) Inj 10/06/2017 10/06/2017 Inactive Zithromax Z-Timothy 250 mg tablet RxNorm: 086231 1 Tablet(s) PO UD 10/06/2017 10/06/2017 Inactive testosterone cypionate 200 mg/mL intramuscular oil RxNorm: 094272 Milliliter(s) IM 09/23/2017 09/23/2017 Inactive testosterone cypionate 200 mg/mL intramuscular kit RxNorm: 845307 1/2 Milliliter(s ) IM [id number] 08/28/2017 02/02/2018 Inactive meloxicam 15 mg tablet RxNorm: 126323 TAKE ONE TABLET BY MOUTH DAILY 08/28/2017 02/12/2018 Inactive testosterone cypionate 200 mg/mL intramuscular oil RxNorm: 965519 Milliliter(s) IM 08/28/2017 08/28/2017 Inactive testosterone cypionate 200 mg/mL intramuscular oil RxNorm: 464202 1/2 Milliliter(s ) IM 08/12/2017 08/12/2017 Inactive meloxicam 15 mg tablet RxNorm: 346272 1 Tablet(s) PO daily 08/201708/27/2017 Inactive atorvastatin 40 mg tablet RxNorm: 965864 TAKE ONE TABLET BY MOUTH DAILY 07/30/2017 02/24/2018 Inactive furosemide 40 mg tablet RxNorm: 784999 TAKE ONE TABLET BY MOUTH DAILY 07/30/2017 02/24/2018 Inactive testosterone cypionate 200 mg/mL intramuscular oil RxNorm: 095656 1/2 Milliliter(s ) IM 07/28/2017 07/28/2017 Inactive testosterone cypionate 200 mg/mL intramuscular oil RxNorm: 449238 1/2 Milliliter(s ) IM 07/14/2017 07/14/2017 Inactive testosterone cypionate 200 mg/mL intramuscular oil RxNorm: 158956 1/2 Milliliter(s ) IM 06/26/2017 06/26/2017 Inactive hydrocodone 5 mg-acetaminophen 325 mg tablet RxNorm: 421087 1 Tablet(s) PO QHS and 1 tab PO daily PRN pain 06/09/2017 Inactive hydrocodone 5 mg-acetaminophen 325 mg tablet RxNorm: 145755 1 Tablet(s) PO daily 06/09/2017 06/18/2017 Inactive testosterone cypionate 200 mg/mL intramuscular oil RxNorm: 986745 1/2 Milliliter(s ) IM 06/09/2017 06/09/2017 Inactive testosterone cypionate 200 mg/mL intramuscular oil RxNorm: 100283 Milliliter(s) IM 05/27/2017 05/27/2017 Inactive testosterone cypionate 200 mg/mL intramuscular oil RxNorm: 483517 Milliliter(s) IM 05/13/2017 05/13/2017 Inactive potassium chloride ER 10 mEq capsule,extended release RxNorm: 768772 1 Capsule(s) PO daily 05/07/2017 11/02/2017 Inactive Vitamin D2 50,000 unit capsule RxNorm: 705554 1 Capsule(s) PO QW 05/06/2017 05/05/2017 Inactive take with OTC vitamin d 2,000 units QD testosterone cypionate 200 mg/mL intramuscular kit RxNorm: 028583 1/2 kit IM 2 x month 05/06/2017 08/27/2017 Inactive Vitamin D2 50,000 unit capsule RxNorm: 487100 1 Capsule(s) PO QW 05/06/2017 08/03/2017 Inactive take with OTC vitamin d 2,000 units QD testosterone cypionate 200 mg/mL intramuscular oil RxNorm: 530303 1/2 Milliliter(s ) IM 04/29/2017 04/29/2017 Inactive fluorouracil 5 % topical cream RxNorm: 916177 1 Application TOP BID 04/28/2017 05/07/2017 Inactive testosterone cypionate 200 mg/mL intramuscular kit RxNorm: 054328 1/2 IM 2 x month 04/28/2017 05/05/2017 Inactive Pamelor 10 mg capsule RxNorm: 238564 1 Capsule(s) PO daily No Start Date Active gabapentin 300 mg capsule RxNorm: 543387 6 Capsule(s) PO daily No Start Date Active cyclobenzaprine 5 mg tablet RxNorm: 148756 1 Tablet(s) PO as needed No Start Date Active diclofenac 1 % topical gel RxNorm: 476500 1 Gram(s) TOP as needed No Start Date Active meloxicam 15 mg tablet RxNorm: 174440 1 Tablet(s) PO daily No Start Date 07/30/2017 Inactive potassium chloride ER 10 mEq tablet,extended release RxNorm: 310139 1 Tablet(s) PO daily No Start Date 05/06/2017 Inactive hydrocodone 5 mg-acetaminophen 325 mg tablet RxNorm: 888083 1 Tablet(s) PO daily No Start Date 06/08/2017 Inactive furosemide 40 mg tablet RxNorm: 835612 1 Tablet(s) PO daily No Start Date 07/29/2017 Inactive atorvastatin 40 mg tablet RxNorm: 963746 1 Tablet(s) PO QHS No Start Date 07/29/2017 Inactive clopidogrel 75 mg tablet RxNorm: 299179 1 Tablet(s) PO daily No Start Date 03/16/2018 Inactive Medication Administered Medication Codes Instructions Start Date Status testosterone cypionate 200 mg/mL intramuscular oil RxNorm: 7606711 Milliliter 2018 Active testosterone cypionate 200 mg/mL intramuscular oil RxNorm: 5617526 Milliliter 04/13/2018 No longer Active Kenalog 40 mg/mL suspension for injection RxNorm: 9786308 1Milliliter 04/07/2018 No longer Active Kenalog 40 mg/mL suspension for injection RxNorm: 3060890 Milliliter 04/03/2018 No longer Active ceftriaxone 500 mg solution for injection RxNorm: 3786283 04/03/2018 No longer Active testosterone cypionate 200 mg/mL intramuscular oil RxNorm: 9466837 Milliliter 03/06/2018 No longer Active testosterone cypionate 200 mg/mL intramuscular oil RxNorm: 9994223 Milliliter 02/19/2018 No longer Active testosterone cypionate 200 mg/mL intramuscular oil RxNorm: 179283 Milliliter 02/03/2018 No longer Active Kenalog 40 mg/mL suspension for injection RxNorm: 3956755 Milliliter 01/07/2018 No longer Active ceftriaxone 500 mg solution for injection RxNorm: 2277672 01/07/2018 No longer Active testosterone cypionate 200 mg/mL intramuscular oil RxNorm: 071528 1/2Milliliter 01/05/2018 No longer Active testosterone cypionate 200 mg/mL intramuscular oil RxNorm: 455642 Milliliter 12/15/2017 No longer Active testosterone cypionate 200 mg/mL intramuscular oil RxNorm: 531234 /2Milliliter 12/04/2017 No longer Active testosterone cypionate 200 mg/mL intramuscular oil RxNorm: 830172 1/2Milliliter 11/17/2017 No longer Active testosterone cypionate 200 mg/mL intramuscular oil RxNorm: 338147 Milliliter 10/22/2017 No longer Active Kenalog 40 mg/mL suspension for injection RxNorm: 8735642 Milliliter 10/06/2017 No longer Active testosterone cypionate 200 mg/mL intramuscular oil RxNorm: 995568 Milliliter 10/06/2017 No longer Active testosterone cypionate 200 mg/mL intramuscular oil RxNorm: 856959 Milliliter 09/23/2017 No longer Active testosterone cypionate 200 mg/mL intramuscular oil RxNorm: 903213 Milliliter 08/28/2017 No longer Active testosterone cypionate 200 mg/mL intramuscular oil RxNorm: 773070 1/2Milliliter 08/12/2017 No longer Active testosterone cypionate 200 mg/mL intramuscular oil RxNorm: 543955 2Milliliter 07/28/2017 No longer Active testosterone cypionate 200 mg/mL intramuscular oil RxNorm: 218929 1/2Milliliter 07/14/2017 No longer Active testosterone cypionate 200 mg/mL intramuscular oil RxNorm: 478586 2Milliliter 06/26/2017 No longer Active testosterone cypionate 200 mg/mL intramuscular oil RxNorm: 652700 /2Milliliter 06/09/2017 No longer Active testosterone cypionate 200 mg/mL intramuscular oil RxNorm: 354693 Milliliter 05/27/2017 No longer Active testosterone cypionate 200 mg/mL intramuscular oil RxNorm: 425782 Milliliter 05/13/2017 No longer Active testosterone cypionate 200 mg/mL intramuscular oil RxNorm: 300299 /2Milliliter 04/29/2017 No longer Active Immunizations Vaccine Codes Date Status Influenza CVX: 141 11/17/2017 completed Assessments Condition Codes Effective Dates 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 ICD-9: 257.2 2018 Acute recurrent maxillary sinusitis ICD-10: J01.01 ICD-9: 461.0 04/09/2018 Other allergic rhinitis ICD-10: J30.89 ICD-9: 477.8 04/09/2018 Sciatica, left side ICD-10: M54.32 ICD-9: 724.3 04/07/2018 Low back pain ICD-10: M54.5 ICD-9: 724.2 04/07/2018 Cough ICD-10: R05 ICD-9: 786.2 04/03/2018 Pain in left shoulder ICD-10: M25.512 ICD-9: 719.41 03/20/2018 Cellulitis of face ICD-10: L03.211 ICD-9: 682.0 [...] ICD-9: 380.4 03/17/2017 Atherosclerotic heart disease of three affiliated coronary artery without angina pectoris ICD-10: I25.10 ICD-9: 414.00 03/14/2017 Chronic pain syndrome ICD-10: G89.4 ICD-9: 338.4 03/14/2017 Personal history of other diseases of the circulatory system ICD-10: Z86.79 ICD-9: V12.59 03/14/2017 Presbycusis, bilateral ICD-10: H91.13 ICD-9: 388.01 03/14/2017 Reason For Visit Reason For Visit Effective Dates Notes cough 04/09/2018 back pain 04/07/2018 fever 04/03/2018 skin lesion 03/20/2018 back pain 03/10/2018 sinus congestion 01/07/2018 back pain 12/22/2017 back pain 12/15/2017 Annual Medicare Wellness Exam 11/27/2017 shoulder pain 11/17/2017 sinus congestion 10/06/2017 shoulder pain 07/24/2017 abnormal test results 07/14/2017 fatigue 06/09/2017 fatigue 04/28/2017 hyperlipidemia 03/14/2017 R ear Results Observation Observation Code Item Item Code Result Date Testosterone Dkd432 Testo 375.1 ng/dL 03/02/2018 Cbc With Differential [...] 25.6 pg 03/02/2018 Cbc With Differential Ord2 [place]% 7.9 % 03/02/2018 Cbc With Differential Ord2 [...] 1.41 K/ul 03/02/2018 Cbc With Differential Ord2 [place] ABS# 0.8 K/ul 03/02/2018 Cbc With Differential Ord2 Eos ABS# 0.2 K/ul 03/02/2018 Cbc With Differential Ord2 Baso ABS# 0.1 K/ul 03/02/2018 Influenza A+B Pbd320 Influ A+B Negative 01/08/2018 C A/B FLU [id number] Influenza A Scr TNP:Improper Specimen 01/07 C A/B FLU [id number] Influenza B Scr TNP:Improper Specimen 01/07 C A/B FLU [id number] Influenza Intrp B AG: PRID:PT:NOSE:NOM:IF TNP:Improper Specimen 01/07/2018 C A/B FLU [id number] IC OK? TNP:Improper Specimen 01/07/2018 Hepatic Bod657 ALBUMIN 3.7 g/dL 08/06/2017 Hepatic Zhx197 TPRO 5.9 g/dL 08/06/2017 Hepatic Pcz218 GLOB 2.2 g/dL 08/06/2017 Hepatic Vdb588 A/G Ratio 1.7 Ratio 08/06/2017 Hepatic Vzo503 ALK PHOS 46 U/L 08/06/2017 Hepatic Jgj913 ALT(SGPT) 9 U/L 08/06/2017 Hepatic Bgf371 AST(SGOT) 13 U/L 08/06/2017 Hepatic Icp507 BILI T 0.6 mg/dL 08/06/2017 Hepatic Mbo633 BILI D 0.2 mg/dL 08/06/2017 Hepatic Zai775 BILI I 0.4 mg/dL 08/06/2017 Testosterone Ghf005 Testo 474.5 ng/dL 08/06/2017 Cbc With Differential [...] 28.5 pg 08/06/2017 Cbc With Differential Ord2 [place]% 11.2 % 08/06/2017 Cbc With Differential Ord2 [...] 1.33 K/ul 08/06/2017 Cbc With Differential Ord2 [place] ABS# 0.6 K/ul 08/06/2017 Cbc With Differential Ord2 Eos ABS# 0.3 K/ul 08/06/2017 Cbc With Differential Ord2 Baso ABS# 0.1 K/ul 08/06/2017 Comp Metabolic Irz690 NA 140 mEq/L 06/02/2017 Comp Metabolic Ljr800 K 3.8 mEq/L 06/02/2017 Comp Metabolic Uex339 CL 102 mEq/L 06/02/2017 Comp Metabolic Wso763 CO2 30.0 mEq/L 06/02/2017 Comp Metabolic Byq390 ANION GAP 12 06/02/2017 Comp Metabolic Mvn735 GLUCOSE 100 mg/dL 06/02/2017 Comp Metabolic Guk170 Creat 1.1 mg/dL 06/02/2017 Comp Metabolic Pub480 eGFR 69 ml/min/1.73m2 06/02/2017 Comp Metabolic Gks108 BUN 15 mg/dL 06/02/2017 Comp Metabolic Xty020 B/C Ratio 13.4 Ratio 06/02/2017 Comp Metabolic Ita139 CALCIUM 8.6 mg/dL 06/02/2017 Comp Metabolic Fvp023 ALK PHOS 63 U/L 06/02/2017 Comp Metabolic Iqf938 AST(SGOT) 17 U/L 06/02/2017 Comp Metabolic Nkw334 ALT(SGPT) 12 U/L 06/02/2017 Comp Metabolic Dso458 BILI T 0.5 mg/dL 06/02/2017 Comp Metabolic Bbz656 ALBUMIN 3.9 g/dL 06/02/2017 Comp Metabolic Nzw555 TPRO 6.1 g/dL 06/02/2017 Comp Metabolic Gzd742 GLOB 2.2 g/dL 06/02/2017 Comp Metabolic Xkj595 A/G Ratio 1.8 Ratio 06/02/2017 Comp Metabolic Ldt120 Osmo 280 mOsmo 06/02/2017 Vitamin D 25 Oh Gat4385 VITAMIN D, 25 HYDROXY 40.03 ng/mL Cbc [...] 29.7 pg 06/02/2017 Cbc With Differential Ord2 [place]% 10.5 % 06/02/2017 Cbc With Differential Ord2 [...] 1.52 K/ul 06/02/2017 Cbc With Differential Ord2 [place] ABS# 0.6 K/ul 06/02/2017 Cbc With Differential Ord2 Eos ABS# 0.2 K/ul 06/02/2017 Cbc With Differential Ord2 Baso ABS# 0.1 K/ul 06/02/2017 Testosterone Gce083 Testo 198.4 ng/dL 04/29/2017 Vitamin D 25 Oh Yqb9074 VITAMIN D, 25 HYDROXY 29.25 ng/mL Lipid Ord30 CHOL 159 mg/dL 04/29/2017 Lipid Ord30 HDL 46.0 mg/dl 04/29/2017 Lipid Ord30 TRIG 134 mg/dL 04/29/2017 Lipid Ord30 LDL 86 mg/dL 04/29/2017 Lipid Ord30 C/HDL 3.5 Ratio 04/29/2017 Tsh Ord6 TSH (3rd IS) 3.28 uIU/mL 04/29/2017 Review of Systems System Result Effective Dates Constitutional recent illness 04/09/2018 Constitutional No anorexia [...] Result Effective Dates Notes Full Exam - ENT Constitutional general appearance [...] 1995 Ears/Nose/Throat oral cavity/pharynx/larynx Overall: hypopharynx benign 03/10/2018 [...] Procedure Codes Date THER/PROPH/DIAG INJ SC/IM CPT-4: 10148 2018 THER/PROPH/DIAG INJ SC/IM CPT-4: 28992 04/13/2018 TRIAMCINOLONE ACET INJ NOS CPT-4: J3301 04/07/2018 TRIAMCINOLONE ACET INJ NOS CPT-4: J3301 04/03/2018 ROCEPHIN, PER 250 MG CPT-4: J0696 04/03/2018 THER/PROPH/DIAG INJ SC/IM CPT-4: 14801 03/20/2018 THER/PROPH/DIAG INJ SC/IM CPT-4: 96835 03/06/2018 THER/PROPH/DIAG INJ SC/IM CPT-4: 06585 02/19/2018 THER/PROPH/DIAG INJ SC/IM CPT-4: 09132 02/03/2018 THER/PROPH/DIAG INJ SC/IM CPT-4: 97922 01/07/2018 TRIAMCINOLONE ACET INJ NOS CPT-4: J3301 01/07/2018 ROCEPHIN, PER 250 MG CPT-4: J0696 01/07/2018 THER/PROPH/DIAG INJ SC/IM CPT-4: 34120 01/05/2018 THER/PROPH/DIAG INJ SC/IM CPT-4: 34974 12/15/2017 THER/PROPH/DIAG INJ SC/IM CPT-4: 87240 12/04/2017 PPPS, SUBSEQ VISIT CPT -4: G0439 11/27/2017 ADMIN INFLUENZA VIRUS VAC CPT-4: G0008 11/17/2017 FLU VAC NO PRSV 4 FATOU 3 YRS+ CPT-4: 54946 11/17/2017 THER/PROPH/DIAG INJ SC/IM CPT-4: 18958 11/17/2017 THER/PROPH/DIAG INJ SC/IM CPT-4: 38882 10/22/2017 THER/PROPH/DIAG INJ SC/IM CPT-4: 64437 10/06/2017 TRIAMCINOLONE ACET INJ NOS CPT-4: J3301 10/06/2017 THER/PROPH/DIAG INJ SC/IM CPT-4: 61960 09/23/2017 THER/PROPH/DIAG INJ SC/IM CPT-4: 74155 08/28/2017 THER/PROPH/DIAG INJ SC/IM CPT-4: 74195 08/12/2017 THER/PROPH/DIAG INJ SC/IM CPT-4: 24451 07/28/2017 THER/PROPH/DIAG INJ SC/IM CPT-4: 03961 07/14/2017 THER/PROPH/DIAG INJ SC/IM CPT-4: 88848 06/26/2017 THER/PROPH/DIAG INJ SC/IM CPT-4: 71926 06/09/2017 THER/PROPH/DIAG INJ SC/IM CPT-4: 85164 05/27/2017 THER/PROPH/DIAG INJ SC/IM CPT-4: 44783 05/13/2017 THER/PROPH/DIAG INJ SC/IM CPT-4: 68213 04/29/2017 Vital Signs Date Vital 04/09/2018 Blood Pressure 1: 120/70 Code : 8480-6 Heart Rate 1: 66 bpm Height: 5'10" SpO2: 98% Weight: 04/07/2018 Blood Pressure 1: 126/74 Code : 8480-6 BMI: 29.0 Code : 33138-3 Heart Rate 1 : 75 bpm Height: 5'10" SpO2: 98% Weight: 202 lbs 04/03/2018 Blood Pressure 1: 130/74 Code : 8480-6 BMI: 29.0 Code : 14129-9 Heart Rate 1 : 89 bpm Height: 5'10" SpO2: 98% Temperature: 37.4 (C) / 99.4 (F) Weight: 202 lbs 03/20/2018 Blood Pressure 1: 122/60 Code : 8480-6 Heart Rate 1: 76 bpm Height: 5'10" SpO2: 96% Weight: 03/10/2018 Blood Pressure 1: 120/70 Code : 8480-6 BMI: 29.0 Code : 27671-8 Heart Rate 1 : 82 bpm Height: 5'10" SpO2: 95% Weight: 202 lbs 01/07/2018 Blood Pressure 1: 126/66 Code : 8480-6 BMI: 30.1 Code : 89692-3 Heart Rate 1 : 75 bpm Height: 5'10" SpO2: 97% Temperature: 36.5 (C) / 97.7 (F) Weight: 210 lbs 12/22/2017 Blood Pressure 1: 124/70 Code : 8480-6 BMI: 29.7 Code : 57409-4 Heart Rate 1 : 84 bpm Height: 5'10" SpO2: 94% Weight: 207 lbs 12/15/2017 Blood Pressure 1: 122/82 Code : 8480-6 BMI: 30.0 Code : 50831-5 Heart Rate 1 : 82 bpm Height: 5'10" SpO2: 93% Weight: 209 lbs 11/27/2017 Blood Pressure 1: 132/68 Code : 8480-6 BMI: 29.3 Code : 74955-4 Heart Rate 1 : 71 bpm Height: 5'10" SpO2: 97% Waist Measure (cm): 97 cm Weight: 204 lbs 11/17/2017 Blood Pressure 1: 130/80 Code : 8480-6 BMI: 29.3 Code : 04636-6 Heart Rate 1 : 73 bpm Height: 5'10" SpO2: 99% Weight: 204 lbs 10/06/2017 Blood Pressure 1: 124/60 Code : 8480-6 BMI: 28.8 Code : 27550-7 Heart Rate 1 : 70 bpm Height: 5'10" SpO2: 98% Weight: 201 lbs 07/24/2017 Blood Pressure 1: 118/70 Code : 8480-6 BMI: 29.3 Code : 20832-0 Heart Rate 1 : 82 bpm Height: 5'10" SpO2: 96% Weight: 204 lbs 07/14/2017 Blood Pressure 1: 118/72 Code : 8480-6 BMI: 29.1 Code : 99191-3 Heart Rate 1 : 83 bpm Height: 5'10" SpO2: 98% Weight: 203 lbs 06/09/2017 Blood Pressure 1: 120/74 Code : 8480-6 BMI: 29.3 Code : 88965-5 Heart Rate 1 : 91 bpm Height: 5'10" SpO2: 99% Weight: 204 lbs 04/28/2017 Blood Pressure 1: 118/68 Code : 8480-6 BMI: 28.8 Code : 37076-6 Heart Rate 1 : 74 bpm Height: 5'10" SpO2: 96% Weight: 201 lbs 03/14/2017 Blood Pressure 1: 114/74 Code : 8480-6 BMI: 28.6 Code : 35308-4 Heart Rate 1 : 77 bpm Height: 5'10" SpO2: 97% Weight: 199 lbs Functional Status No Functional Status data History of Present Illness Symptom Name Status Result Effective Date Notes Quality acute 2018 None Quality intermittent 04/09/2018 [...] data Encounters Encounter Performer Location Codes Date ([id number]) [id number] EST. PATIENT, LEVEL II Diagnosis: Other allergic rhinitis[ICD10: J30.89] Diagnosis: Acute recurrent maxillary sinusitis[ICD10: J01.01] [facility] CPT-4: 50831 04/09/2018 ([id number]) [id number] EST. PATIENT, LEVEL III Diagnosis: Low back pain[ICD10: M54.5] Diagnosis: Sciatica, left side[ICD10: M54.32] Elise Hollis MD, [facility] CPT-4: 81024 04/07/2018 ([id number]) [id number] EST. PATIENT, LEVEL III Diagnosis: Acute recurrent maxillary sinusitis[ICD10: J01.01] Diagnosis: Cough[ICD10: R05] Elise Hollis MD, [facility] CPT-4: 57750 04/03/2018 [id number] EST. PATIENT, LEVEL III Diagnosis: Cellulitis of face[ICD10: L03.211] Diagnosis: Pain in left shoulder[ICD10: M25.512] Diagnosis: Testicular hypofunction[ICD10: E29.1] Elise Hollis MD, [facility] CPT-4: 33064 03/20/2018 ([id number]) [id number] EST. 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 PATIENT, LEVEL III Diagnosis: Other malaise[ICD10: R53.81] Diagnosis: Acute laryngopharyngitis[ICD10: J06.0] Diagnosis: Other allergic rhinitis[ICD10: J30.89] Sapphire Hollis MD, [facility] CPT-4: 69813 01/07/2018 ([id number]) 03495 EST. PATIENT, LEVEL III Diagnosis: Spinal stenosis, lumbosacral region[ICD10: M48.07] Diagnosis: Spinal stenosis, cervical region[ICD10: M48.02] Elise Hollis MD, [facility] CPT-4: 24094 12/22/2017 ([id number]) 82669 EST. 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 PATIENT, LEVEL III Diagnosis: Mixed hyperlipidemia[ICD10: E78.2] Diagnosis: Other insomnia[ICD10: G47.09] Leora Hollis MD, [facility] CPT- 4: 41886 11/17/2017 15085 EST. PATIENT, LEVEL III Diagnosis: Acute laryngopharyngitis[ICD10: J06.0] Diagnosis: Other allergic rhinitis[ICD10: J30.89] Sapphire Hollis MD, [facility] CPT-4: 52484 10/06/2017 35541 EST. PATIENT, LEVEL III Diagnosis: Pain in left shoulder[ICD10: M25.512] Sapphire Hollis MD, [facility] CPT-4: 51208 07/24/2017 ([id number]) 59362 EST. 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] Leora Hollis MD, [facility] CPT-4: 89666 04/28/2017 ([id number]) Miscellaneous no charge Diagnosis: Impacted cerumen, bilateral[ICD10: H61.23] Leora Hollis MD, [facility] CPT-4: 44594 03/17/2017 ([id number]) OFFICE VISIT, NEW - LEVEL 4 Diagnosis: Mixed hyperlipidemia[ICD10: E78.2] Diagnosis: Chronic pain syndrome[ICD10: G89.4] Diagnosis: Presbycusis, bilateral[ICD10: H91.13] Diagnosis: Impacted cerumen, bilateral[ICD10: H61.23] 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 04/09/2018 Appointment: Elise Castillo WPtel: [facility] [phone] (15 min) Moderate 04/09/2018 Appointment: Elise Castillo WPtel: [address] [place], [place] [phone] (15 min) Moderate 04/09/2018 Patient Education: Patient Medication Summary Completed 04/09/2018 Visit Plan: Sciatica-left- kenalog injection today in the office- exercises discussed with the patient, pt to continue with antiinflammatories. Pt is to call if the symptoms do not improve or if they worsen. 04/07/2018 Appointment: Elise Castillo WPtel: [address] [place], [place] [phone] (15 min) Moderate 04/07/2018 Patient Education: Patient Medication Summary Completed 04/07/2018 Patient Education: Back Pain Completed 04/07/2018 Visit Plan: Sinusitis - Pt has acute infection - pain in face, maxillary region, Pt informed to use decongestant, RX given to patient, sinus rinses also recommended. Call if symptoms do not show improvement. 04/03/2018 Appointment: Elise Castillo WPtel: [facility] [phone] (15 min) Moderate 04/03/2018 Patient Education: Patient [...] Dr Back 03/20/2018 Appointment: Elise Castillo WPtel: [address] [place], [place] [phone] (15 min) Moderate 03/20/2018 Appointment: (15 min) Moderate 03/20/2018 Patient Education: Patient Medication Summary Completed 03/20/2018 Visit Plan: Spinal stenosis with back pain - refilled hydrocodone- keep appt with [employer] for treatment of stenosis of arteries, then pt most-likely to have surgical intervention of spine. PAD - pt will need surgical intervention with stenting. Testicular hypofunction - continue with testosterone. 03/10/2018 Appointment: Leora Hollis WPtel: [address] [place], [place] [phone] (15 min) Moderate 03/10/2018 Patient Education: Patient Medication Summary Completed 03/10/2018 Patient Education: Back Pain Completed 03/10/2018 Patient Education: Cholesterol Management Completed 03/10/2018 Appointment: Leora Hollis WPtel: [address] [place] [address] (15 min) Moderate 03/09/2018 Appointment: Injection 03/06/2018 [...] allergy spray. 01/07/2018 Appointment: [facility] One[facility] [phone] [facility] (15 min) Moderate 01/07/2018 Patient Education: Patient [...] of plan. 12/22/2017 Appointment: Elise Castillo WPtel: [facility] [place]3 [facility] [place] [address] (15 min) Moderate 12/22/2017 Patient Education: Patient Medication Summary Completed 12/22/2017 Visit Plan: Neck and low back pain -will schedule MRI lumbar and cervical spine for further evaluation and proceed as indicated- patient verbalized understanding of plan. 12/15/2017 Appointment: Elise Castillo WPtel: [facility] [phone] (15 min) Moderate 12/15/2017 Patient Education: Patient Medication Summary Completed 12/15/2017 Patient Education: Back Pain Completed 12/15/2017 Care Plan: MRI LUMBAR SPINE W/O DYE LOINC : 53875-5 Pending 12/15/2017 Care Plan: MRI NECK SPINE W/O DYE LOINC : 57091-6 Pending 12/15/2017 Appointment: Injection 12/04/2017 Patient Education: [...] care surrogate. 11/27/2017 Appointment: Sapphire Oneil WPtel: [facility] [phone] [place] [address] - Annual Wellness Visit 11/27/2017 Patient Education: [...] to sleep 11/17/2017 Appointment: Leora Hollis WPtel: [phone] [facility] (15 min) Moderate 11/17/2017 Patient Education: Patient [...] spray. 10/06/2017 Appointment[facility] [phone] [facility] (15 min) Moderate 10/06/2017 Appointment: Sapphire Oneil WPtel: [phone] [facility] (15 min) Moderate 10/06/2017 Patient Education: Patient [...] treatment plan. 07/24/2017 Appointment: [facility] Oneil [facility] [phone] [facility] (30 min) Complex 07/24/2017 Patient Education: Patient [...] medications. 07/14/2017 Appointment: [facility] [phone] [facility] [place] (15 min) Moderate 07/14/2017 Patient Education: Patient Medication Summary Completed 07/14/2017 Appointment: [facility] [phone] [facility] (15 min) Moderate 07/10/2017 Appointment: Injection 06/26/2017 [...] at night 06/09/2017 Appointment: [facility] [phone] [facility] (30 min) Complex 06/09/2017 Patient Education: Patient [...] 15 04/28/2017 Appointment: [facility] [phone] [facility] (30 min) Complex 04/28/2017 Patient Education: Patient [...] for ear wax removal 03/14/2017 Appointment: Leora Holils WPtel: [facility] [place] New Patient 03/14/2017 Patient Education: Patient Medication [...] pain - refilled hydrocodone- keep appt with [employer] for treatment of stenosis of arteries, then pt most- likely to have surgical intervention of spine. PAD - pt will need surgical intervention with stenting. Testicular hypofunction - continue with testosterone. REFER FOR PHYSICAL THERAPY AT [facility] -HE HAS A PT HE HAS SEEN [...]
--- OUTSIDE RECORDS SUMMARY | 2018-06-12 08:45 | XMS REPORT | CCD ---
Author Author [facility] Organization [facility] Address [address] [place] [address] Phone Care Team Providers Care Electrolog Operator Name Role Phone PP Unavailable CCM Unavailable Summary Purpose Interface Exchange Insurance Providers Payer name Policy type / Coverage type Covered constitution party ID Effective Begin Date Effective End Date WPS Medicare Part B Medicare Part B [id number] 2017 Unknown [facility] Medicare Part B [id number] 2017 Unknown Family history Father Diagnosis Age At Onset Heart Attack Unknown Social History Social History Element Codes Description Effective Dates Marital status Unknown 03/14/2017 Number of children Unknown 2 03/14/[address]: 2110274 Former smoker Quit 11/03/00; smoke 1/2 pack/day x15 years 03/14/[address]: 570415542 Never drinks alcohol 03/14/2017 Allergies, Adverse Reactions, [...] Active 04/28/2017 Unknown 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 [...] D75.1 04/28/2017 Active 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 ICD-10: I25.10 03/14/2017 Active Chronic pain syndrome ICD-9: 338.4 ICD-10: G89.4 03/14/2017 Active Personal history of other diseases of the circulatory system ICD-9: V12.59 ICD-10: Z86.79 03/14/2017 Active Presbycusis, 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 03/14/2017 Active Medications Medication Codes Instructions Start Date Stop Date Status Fill Instructions hydrocodone 5 mg-acetaminophen 325 mg tablet RxNorm: 590356 1-2 Tablet(s) PO Q6 PRN MAY FILL 04/1905/18/2018 06/16/2018 Active meloxicam 15 mg tablet RxNorm: 066441 TAKE ONE TABLET BY MOUTH DAILY 04/17/2018 08/14/2018 Active potassium chloride ER 10 mEq capsule,extended release RxNorm: 601117 TAKE ONE CAPSULE BY MOUTH DAILY 04/17/20182018 Active clopidogrel 75 mg tablet RxNorm: 660294 TAKE ONE TABLET BY MOUTH DAILY 04/17/2018 08/14/2018 Active hydrocodone 5 mg-acetaminophen 325 mg tablet RxNorm: 131521 1-2 Tablet(s) PO Q6 PRN MAY FILL 04/1904/16/2018 05/15/2018 Inactive Augmentin 875 mg-125 mg tablet RxNorm: 675781 1 Tablet(s) PO BID 04/15/2018 04/14/2018 Inactive Augmentin 875 mg-125 mg tablet RxNorm: 214920 1 Tablet(s) PO BID 04/15/2018 04/28/2018 Inactive testosterone cypionate 200 mg/mL intramuscular kit RxNorm: 057339 1/2 Milliliter(s ) IM [id number] 04/13/2018 10/09/2018 Active testosterone cypionate 200 mg/mL intramuscular oil RxNorm: 9866052 Milliliter(s) IM 04/13/2018 04/13/2018 Inactive prednisone 20 mg tablet RxNorm: 264733 1 Tablet(s) PO BID 04/0904/13/2018 Inactive Augmentin 875 mg-125 mg tablet RxNorm: 686797 1 Tablet(s) PO BID 04/09/2018 04/11/2018 Inactive Kenalog 40 mg/mL suspension for injection RxNorm: 9703979 1 Milliliter(s) Inj 04/07/2018 04/07/2018 Inactive Kenalog 40 mg/mL suspension for injection RxNorm: 2307160 Milliliter(s) Inj 04/03/2018 04/03/2018 Inactive Augmentin 875 mg-125 mg tablet RxNorm: 870215 1 Tablet(s) PO BID 04/03/2018 04/08/2018 Inactive ceftriaxone 500 mg solution for injection RxNorm: 0975624 Inj 04/03/2018 04/03/2018 Inactive atorvastatin 40 mg tablet RxNorm: 135869 TAKE ONE TABLET BY MOUTH DAILY 03/20/2018 09/10/2019 Active mupirocin 2 % topical ointment RxNorm: 979723 1 Application TOP BID 03/20/2018 03/26/2018 Inactive hydrocodone 5 mg-acetaminophen 325 mg tablet RxNorm: 281138 1-2 Tablet(s) PO Q6 PRN 03/20/2018 04/15/2018 Inactive Keflex 500 mg capsule RxNorm: 285027 1 Capsule(s) PO TID 201803/26/2018 Inactive zolpidem 5 mg tablet RxNorm: 038488 Tablet(s) TAKE ONE TABLET BY MOUTH EVERY NIGHT AT BEDTIME NEEDED 03/18/2018 Active furosemide 40 mg tablet RxNorm: 804324 TAKE ONE TABLET BY MOUTH DAILY 03/17/2018 09/12/2018 Active clopidogrel 75 mg tablet RxNorm: 319586 1 Tablet(s) PO daily 04/15/2018 Inactive testosterone cypionate 200 mg/mL intramuscular oil RxNorm: 8424610 Milliliter(s) IM 03/06/2018 03/06/2018 Inactive testosterone cypionate 200 mg/mL intramuscular oil RxNorm: 5137631 Milliliter(s) IM 02/19/2018 02/19/2018 Inactive hydrocodone 5 mg-acetaminophen 325 mg tablet RxNorm: 666406 1-2 Tablet(s) PO Q6 PRN 02/18/2018 03/09/2018 Inactive zolpidem 5 mg tablet RxNorm: 931320 TAKE ONE TABLET BY MOUTH EVERY NIGHT AT BEDTIME NEEDED 02/13/2018 04/08/2018 Inactive meloxicam 15 mg tablet RxNorm: 463960 TAKE ONE TABLET BY MOUTH DAILY 02/13/2018 04/16/2018 Inactive testosterone cypionate 200 mg/mL intramuscular kit RxNorm: 385840 1/2 Milliliter(s ) IM [id number] 02/03/2018 04/12/2018 Inactive testosterone cypionate 200 mg/mL intramuscular oil RxNorm: 297785 Milliliter(s) IM 02/03/2018 02/03/2018 Inactive cefdinir 300 mg capsule RxNorm: 428487 1 Capsule(s) PO BID 01/18/2018 Inactive prednisone 20 mg tablet RxNorm: 658796 2 Tablet(s) PO QAM 01/0901/08/2018 Inactive cefdinir 300 mg capsule RxNorm: 671151 1 Capsule(s) PO BID 01/08/2018 Inactive prednisone 20 mg tablet RxNorm: 612987 2 Tablet(s) PO QAM 01/0904/08/2018 Inactive Zithromax Z-Timothy 250 mg tablet RxNorm: 337173 1 Tablet(s) PO UD 01/07/2018 04/08/2018 Inactive Kenalog 40 mg/mL suspension for injection RxNorm: 1623074 Milliliter(s) Inj 01/07/2018 01/07/2018 Inactive ceftriaxone 500 mg solution for injection RxNorm: 0634103 Inj 01/07/2018 01/07/2018 Inactive testosterone cypionate 200 mg/mL intramuscular oil RxNorm: 633622 1/2 Milliliter(s ) IM 01/05/2018 01/05/2018 Inactive hydrocodone 5 mg-acetaminophen 325 mg tablet RxNorm: 226110 1-2 Tablet(s) PO Q6 PRN 12/22/2017 02/17/2018 Inactive zolpidem 5 mg tablet RxNorm: 850313 1 Tablet(s) PO 30 min before QHS 12/15/2017 02/12/2018 Inactive testosterone cypionate 200 mg/mL intramuscular oil RxNorm: 185701 Milliliter(s) IM 12/15/2017 12/15/2017 Inactive testosterone cypionate 200 mg/mL intramuscular oil RxNorm: 817618 1/2 Milliliter(s ) IM 12/04/2017 12/04/2017 Inactive testosterone cypionate 200 mg/mL intramuscular oil RxNorm: 552494 1/2 Milliliter(s ) IM 11/17/2017 11/17/2017 Inactive potassium chloride ER 10 mEq capsule,extended release RxNorm: 593424 TAKE ONE CAPSULE BY MOUTH DAILY 11/11/20172018 Inactive testosterone cypionate 200 mg/mL intramuscular oil RxNorm: 279549 Milliliter(s) IM 10/22/2017 10/22/2017 Inactive zolpidem 5 mg tablet RxNorm: 476978 1 Tablet(s) PO 30 min before QHS 10/15/2017 10/14/2017 Inactive zolpidem 5 mg tablet RxNorm: 342514 1 Tablet(s) PO 30 min before QHS 10/15/2017 12/13/2017 Inactive Zithromax Z-Timothy 250 mg tablet RxNorm: 630257 1 Tablet(s) PO UD 10/07/2017 11/16/2017 Inactive testosterone cypionate 200 mg/mL intramuscular oil RxNorm: 425381 Milliliter(s) IM 10/06/2017 10/06/2017 Inactive Kenalog 40 mg/mL suspension for injection RxNorm: 0408198 Milliliter(s) Inj 10/06/2017 10/06/2017 Inactive Zithromax Z-Timothy 250 mg tablet RxNorm: 844665 1 Tablet(s) PO UD 10/06/2017 10/06/2017 Inactive testosterone cypionate 200 mg/mL intramuscular oil RxNorm: 287116 Milliliter(s) IM 09/23/2017 09/23/2017 Inactive testosterone cypionate 200 mg/mL intramuscular kit RxNorm: 995544 1/2 Milliliter(s ) IM [id number] 08/28/2017 02/02/2018 Inactive meloxicam 15 mg tablet RxNorm: 162752 TAKE ONE TABLET BY MOUTH DAILY 08/28/2017 02/12/2018 Inactive testosterone cypionate 200 mg/mL intramuscular oil RxNorm: 169483 Milliliter(s) IM 08/28/2017 08/28/2017 Inactive testosterone cypionate 200 mg/mL intramuscular oil RxNorm: 424896 1/2 Milliliter(s ) IM 08/12/2017 08/12/2017 Inactive meloxicam 15 mg tablet RxNorm: 401488 1 Tablet(s) PO daily 08/201708/27/2017 Inactive atorvastatin 40 mg tablet RxNorm: 177690 TAKE ONE TABLET BY MOUTH DAILY 07/30/2017 02/24/2018 Inactive furosemide 40 mg tablet RxNorm: 085308 TAKE ONE TABLET BY MOUTH DAILY 07/30/2017 02/24/2018 Inactive testosterone cypionate 200 mg/mL intramuscular oil RxNorm: 509384 1/2 Milliliter(s ) IM 07/28/2017 07/28/2017 Inactive testosterone cypionate 200 mg/mL intramuscular oil RxNorm: 485681 1/2 Milliliter(s ) IM 07/14/2017 07/14/2017 Inactive testosterone cypionate 200 mg/mL intramuscular oil RxNorm: 565523 1/2 Milliliter(s ) IM 06/26/2017 06/26/2017 Inactive hydrocodone 5 mg-acetaminophen 325 mg tablet RxNorm: 821371 1 Tablet(s) PO QHS and 1 tab PO daily PRN pain 06/09/2017 Inactive hydrocodone 5 mg-acetaminophen 325 mg tablet RxNorm: 403607 1 Tablet(s) PO daily 06/09/2017 06/18/2017 Inactive testosterone cypionate 200 mg/mL intramuscular oil RxNorm: 177853 1/2 Milliliter(s ) IM 06/09/2017 06/09/2017 Inactive testosterone cypionate 200 mg/mL intramuscular oil RxNorm: 971944 Milliliter(s) IM 05/27/2017 05/27/2017 Inactive testosterone cypionate 200 mg/mL intramuscular oil RxNorm: 837334 Milliliter(s) IM 05/13/2017 05/13/2017 Inactive potassium chloride ER 10 mEq capsule,extended release RxNorm: 394420 1 Capsule(s) PO daily 05/07/2017 11/02/2017 Inactive Vitamin D2 50,000 unit capsule RxNorm: 069310 1 Capsule(s) PO QW 05/06/2017 05/05/2017 Inactive take with OTC vitamin d 2,000 units QD testosterone cypionate 200 mg/mL intramuscular kit RxNorm: 685566 1/2 kit IM 2 x month 05/06/2017 08/27/2017 Inactive Vitamin D2 50,000 unit capsule RxNorm: 589238 1 Capsule(s) PO QW 05/06/2017 08/03/2017 Inactive take with OTC vitamin d 2,000 units QD testosterone cypionate 200 mg/mL intramuscular oil RxNorm: 079661 1/2 Milliliter(s ) IM 04/29/2017 04/29/2017 Inactive fluorouracil 5 % topical cream RxNorm: 735937 1 Application TOP BID 04/28/2017 05/07/2017 Inactive testosterone cypionate 200 mg/mL intramuscular kit RxNorm: 918829 1/2 IM 2 x month 04/28/2017 05/05/2017 Inactive Pamelor 10 mg capsule RxNorm: 277183 1 Capsule(s) PO daily No Start Date Active gabapentin 300 mg capsule RxNorm: 700028 6 Capsule(s) PO daily No Start Date Active cyclobenzaprine 5 mg tablet RxNorm: 353487 1 Tablet(s) PO as needed No Start Date Active diclofenac 1 % topical gel RxNorm: 839111 1 Gram(s) TOP as needed No Start Date Active meloxicam 15 mg tablet RxNorm: 803982 1 Tablet(s) PO daily No Start Date 07/30/2017 Inactive potassium chloride ER 10 mEq tablet,extended release RxNorm: 021235 1 Tablet(s) PO daily No Start Date 05/06/2017 Inactive hydrocodone 5 mg-acetaminophen 325 mg tablet RxNorm: 653045 1 Tablet(s) PO daily No Start Date 06/08/2017 Inactive furosemide 40 mg tablet RxNorm: 109833 1 Tablet(s) PO daily No Start Date 07/29/2017 Inactive atorvastatin 40 mg tablet RxNorm: 454956 1 Tablet(s) PO QHS No Start Date 07/29/2017 Inactive clopidogrel 75 mg tablet RxNorm: 982719 1 Tablet(s) PO daily No Start Date 03/16/2018 Inactive Medication Administered Medication Codes Instructions Start Date Status testosterone cypionate 200 mg/mL intramuscular oil RxNorm: 5687059 Milliliter 04/13/2018 No longer Active Kenalog 40 mg/mL suspension for injection RxNorm: 9395748 1Milliliter 04/07/2018 No longer Active Kenalog 40 mg/mL suspension for injection RxNorm: 0039684 Milliliter 04/03/2018 No longer Active ceftriaxone 500 mg solution for injection RxNorm: 6341019 04/03/2018 No longer Active testosterone cypionate 200 mg/mL intramuscular oil RxNorm: 0704278 Milliliter 03/06/2018 No longer Active testosterone cypionate 200 mg/mL intramuscular oil RxNorm: 6232526 Milliliter 02/19/2018 No longer Active testosterone cypionate 200 mg/mL intramuscular oil RxNorm: 577146 Milliliter 02/03/2018 No longer Active Kenalog 40 mg/mL suspension for injection RxNorm: 7442805 Milliliter 01/07/2018 No longer Active ceftriaxone 500 mg solution for injection RxNorm: 5942657 01/07/2018 No longer Active testosterone cypionate 200 mg/mL intramuscular oil RxNorm: 594515 1/2Milliliter 01/05/2018 No longer Active testosterone cypionate 200 mg/mL intramuscular oil RxNorm: 237224 Milliliter 12/15/2017 No longer Active testosterone cypionate 200 mg/mL intramuscular oil RxNorm: 578431 1/2Milliliter 12/04/2017 No longer Active testosterone cypionate 200 mg/mL intramuscular oil RxNorm: 796829 1/2Milliliter 11/17/2017 No longer Active testosterone cypionate 200 mg/mL intramuscular oil RxNorm: 302532 Milliliter 10/22/2017 No longer Active Kenalog 40 mg/mL suspension for injection RxNorm: 1991432 Milliliter 10/06/2017 No longer Active testosterone cypionate 200 mg/mL intramuscular oil RxNorm: 466147 Milliliter 10/06/2017 No longer Active testosterone cypionate 200 mg/mL intramuscular oil RxNorm: 222254 Milliliter 09/23/2017 No longer Active testosterone cypionate 200 mg/mL intramuscular oil RxNorm: 048213 Milliliter 08/28/2017 No longer Active testosterone cypionate 200 mg/mL intramuscular oil RxNorm: 304394 /2Milliliter 08/12/2017 No longer Active testosterone cypionate 200 mg/mL intramuscular oil RxNorm: 855798 2Milliliter 07/28/2017 No longer Active testosterone cypionate 200 mg/mL intramuscular oil RxNorm: 055958 2Milliliter 07/14/2017 No longer Active testosterone cypionate 200 mg/mL intramuscular oil RxNorm: 668590 2Milliliter 06/26/2017 No longer Active testosterone cypionate 200 mg/mL intramuscular oil RxNorm: 538473 /2Milliliter 06/09/2017 No longer Active testosterone cypionate 200 mg/mL intramuscular oil RxNorm: 261077 Milliliter 05/27/2017 No longer Active testosterone cypionate 200 mg/mL intramuscular oil RxNorm: 304310 Milliliter 05/13/2017 No longer Active testosterone cypionate 200 mg/mL intramuscular oil RxNorm: 008484 illiliter 04/29/2017 No longer Active Immunizations Vaccine Codes Date Status Influenza CVX: 141 11/17/2017 completed Assessments Condition Codes Effective Dates 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 ICD-9: 257.2 04/13/2018 Acute recurrent maxillary sinusitis ICD-10: J01.01 ICD-9: [...] ICD-9: 380.4 03/17/2017 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 [...] Code Item Item Code Result Date Testosterone Fng546 Testo 375.1 ng/dL 03/02/2018 Cbc With Differential [...] 25.6 pg 03/02/2018 Cbc With Differential Ord2 [place]% 7.9 % 03/02/2018 Cbc With Differential Ord2 [...] 1.41 K/ul 03/02/2018 Cbc With Differential Ord2 [place] ABS# 0.8 K/ul 03/02/2018 Cbc With Differential Ord2 Eos ABS# 0.2 K/ul 03/02/2018 Cbc With Differential Ord2 Baso ABS# 0.1 K/ul 03/02/2018 Influenza A+B Csb926 Influ A+B Negative 01/08/2018 C A/B FLU [id number] Influenza A Scr TNP:Improper Specimen 01/07 C A/B FLU [id number] Influenza B Scr TNP:Improper Specimen 01/07 C A/B FLU [id number] Influenza Intrp B AG: PRID:PT:NOSE:NOM:IF TNP:Improper Specimen 01/07/2018 C A/B FLU [id number] IC OK? TNP:Improper Specimen 01/07/2018 Hepatic Nwa634 ALBUMIN 3.7 g/dL 08/06/2017 Hepatic Bak421 TPRO 5.9 g/dL 08/06/2017 Hepatic Urf875 GLOB 2.2 g/dL 08/06/2017 Hepatic Wgu331 A/G Ratio 1.7 Ratio 08/06/2017 Hepatic Tiw587 ALK PHOS 46 U/L 08/06/2017 Hepatic Bhm852 ALT(SGPT) 9 U/L 08/06/2017 Hepatic Mob814 AST(SGOT) 13 U/L 08/06/2017 Hepatic Wrx447 BILI T 0.6 mg/dL 08/06/2017 Hepatic Lsa841 BILI D 0.2 mg/dL 08/06/2017 Hepatic Ema837 BILI I 0.4 mg/dL 08/06/2017 Testosterone Ltj729 Testo 474.5 ng/dL 08/06/2017 Cbc With Differential [...] 28.5 pg 08/06/2017 Cbc With Differential Ord2 [place]% 11.2 % 08/06/2017 Cbc With Differential Ord2 [...] 1.33 K/ul 08/06/2017 Cbc With Differential Ord2 [place] ABS# 0.6 K/ul 08/06/2017 Cbc With Differential Ord2 Eos ABS# 0.3 K/ul 08/06/2017 Cbc With Differential Ord2 Baso ABS# 0.1 K/ul 08/06/2017 Comp Metabolic Bgw659 NA 140 mEq/L 06/02/2017 Comp Metabolic Agi677 K 3.8 mEq/L 06/02/2017 Comp Metabolic Khu130 CL 102 mEq/L 06/02/2017 Comp Metabolic Nnt144 CO2 30.0 mEq/L 06/02/2017 Comp Metabolic Csz769 ANION GAP 12 06/02/2017 Comp Metabolic Tcn452 GLUCOSE 100 mg/dL 06/02/2017 Comp Metabolic Vrd898 Creat 1.1 mg/dL 06/02/2017 Comp Metabolic Gas559 eGFR 69 ml/min/1.73m2 06/02/2017 Comp Metabolic Gom917 BUN 15 mg/dL 06/02/2017 Comp Metabolic Pxh203 B/C Ratio 13.4 Ratio 06/02/2017 Comp Metabolic Qyt899 CALCIUM 8.6 mg/dL 06/02/2017 Comp Metabolic Eti200 ALK PHOS 63 U/L 06/02/2017 Comp Metabolic Hne540 AST(SGOT) 17 U/L 06/02/2017 Comp Metabolic Gcc815 ALT(SGPT) 12 U/L 06/02/2017 Comp Metabolic Lzt796 BILI T 0.5 mg/dL 06/02/2017 Comp Metabolic Dxc555 ALBUMIN 3.9 g/dL 06/02/2017 Comp Metabolic Xvk907 TPRO 6.1 g/dL 06/02/2017 Comp Metabolic Ubf121 GLOB 2.2 g/dL 06/02/2017 Comp Metabolic Mkq825 A/G Ratio 1.8 Ratio 06/02/2017 Comp Metabolic Xtz483 Osmo 280 mOsmo 06/02/2017 Vitamin D 25 Oh Vvo3197 VITAMIN D, 25 HYDROXY 40.03 ng/mL Cbc [...] 29.7 pg 06/02/2017 Cbc With Differential Ord2 [place]% 10.5 % 06/02/2017 Cbc With Differential Ord2 [...] 1.52 K/ul 06/02/2017 Cbc With Differential Ord2 [place] ABS# 0.6 K/ul 06/02/2017 Cbc With Differential Ord2 Eos ABS# 0.2 K/ul 06/02/2017 Cbc With Differential Ord2 Baso ABS# 0.1 K/ul 06/02/2017 Testosterone Qbn702 Testo 198.4 ng/dL 04/29/2017 Vitamin D 25 Oh Ato8151 VITAMIN D, 25 HYDROXY 29.25 ng/mL Lipid [...] Procedure Codes Date THER/PROPH/DIAG INJ SC/IM CPT-4: 37276 04/13/2018 TRIAMCINOLONE ACET INJ NOS CPT-4: J3301 04/07/2018 TRIAMCINOLONE ACET INJ NOS CPT-4: J3301 04/03/2018 ROCEPHIN, PER 250 MG CPT-4: J0696 04/03/2018 THER/PROPH/DIAG INJ SC/IM CPT-4: 49279 03/20/2018 THER/PROPH/DIAG INJ SC/IM CPT-4: 80516 03/06/2018 THER/PROPH/DIAG INJ SC/IM CPT-4: 70759 02/19/2018 THER/PROPH/DIAG INJ SC/IM CPT-4: 05484 02/03/2018 THER/PROPH/DIAG INJ SC/IM CPT-4: 86929 01/07/2018 TRIAMCINOLONE ACET INJ NOS CPT-4: J3301 01/07/2018 ROCEPHIN, PER 250 MG CPT-4: J0696 01/07/2018 THER/PROPH/DIAG INJ SC/IM CPT-4: 57419 01/05/2018 THER/PROPH/DIAG INJ SC/IM CPT-4: 08883 12/15/2017 THER/PROPH/DIAG INJ SC/IM CPT-4: 79566 12/04/2017 PPPS, SUBSEQ VISIT CPT -4: G0439 11/27/2017 ADMIN INFLUENZA VIRUS VAC CPT-4: G0008 11/17/2017 FLU VAC NO PRSV 4 FATOU 3 YRS+ CPT-4: 60229 11/17/2017 THER/PROPH/DIAG INJ SC/IM CPT-4: 05125 11/17/2017 THER/PROPH/DIAG INJ SC/IM CPT-4: 57322 10/22/2017 THER/PROPH/DIAG INJ SC/IM CPT-4: 80671 10/06/2017 TRIAMCINOLONE ACET INJ NOS CPT-4: J3301 10/06/2017 THER/PROPH/DIAG INJ SC/IM CPT-4: 92806 09/23/2017 THER/PROPH/DIAG INJ SC/IM CPT-4: 81634 08/28/2017 THER/PROPH/DIAG INJ SC/IM CPT-4: 09085 08/12/2017 THER/PROPH/DIAG INJ SC/IM CPT-4: 20708 07/28/2017 THER/PROPH/DIAG INJ SC/IM CPT-4: 16584 07/14/2017 THER/PROPH/DIAG INJ SC/IM CPT-4: 37996 06/26/2017 THER/PROPH/DIAG INJ SC/IM CPT-4: 51624 06/09/2017 THER/PROPH/DIAG INJ SC/IM CPT-4: 95054 05/27/2017 THER/PROPH/DIAG INJ SC/IM CPT-4: 84791 05/13/2017 THER/PROPH/DIAG INJ SC/IM CPT-4: 47875 04/29/2017 Vital Signs Date Vital 04/09/2018 Blood Pressure 1: 120/70 Code : 8480-6 Heart Rate 1: 66 bpm Height: 5'10" SpO2: 98% Weight: 04/07/2018 Blood Pressure 1: 126/74 Code : 8480-6 BMI: 29.0 Code : 90302-2 Heart Rate 1 : 75 bpm Height: 5'10" SpO2: 98% Weight: 202 lbs 04/03/2018 Blood Pressure 1: 130/74 Code : 8480-6 BMI: 29.0 Code : 30824-7 Heart Rate 1 : 89 bpm Height: 5'10" SpO2: 98% Temperature: 37.4 (C) / 99.4 (F) Weight: 202 lbs 03/20/2018 Blood Pressure 1: 122/60 Code : 8480-6 Heart Rate 1: 76 bpm Height: 5'10" SpO2: 96% Weight: 03/10/2018 Blood Pressure 1: 120/70 Code : 8480-6 BMI: 29.0 Code : 85622-5 Heart Rate 1 : 82 bpm Height: 5'10" SpO2: 95% Weight: 202 lbs 01/07/2018 Blood Pressure 1: 126/66 Code : 8480-6 BMI: 30.1 Code : 11137-8 Heart Rate 1 : 75 bpm Height: 5'10" SpO2: 97% Temperature: 36.5 (C) / 97.7 (F) Weight: 210 lbs 12/22/2017 Blood Pressure 1: 124/70 Code : 8480-6 BMI: 29.7 Code : 48749-6 Heart Rate 1 : 84 bpm Height: 5'10" SpO2: 94% Weight: 207 lbs 12/15/2017 Blood Pressure 1: 122/82 Code : 8480-6 BMI: 30.0 Code : 11120-5 Heart Rate 1 : 82 bpm Height: 5'10" SpO2: 93% Weight: 209 lbs 11/27/2017 Blood Pressure 1: 132/68 Code : 8480-6 BMI: 29.3 Code : 90287-8 Heart Rate 1 : 71 bpm Height: 5'10" SpO2: 97% Waist Measure (cm): 97 cm Weight: 204 lbs 11/17/2017 Blood Pressure 1: 130/80 Code : 8480-6 BMI: 29.3 Code : 54425-9 Heart Rate 1 : 73 bpm Height: 5'10" SpO2: 99% Weight: 204 lbs 10/06/2017 Blood Pressure 1: 124/60 Code : 8480-6 BMI: 28.8 Code : 23463-7 Heart Rate 1 : 70 bpm Height: 5'10" SpO2: 98% Weight: 201 lbs 07/24/2017 Blood Pressure 1: 118/70 Code : 8480-6 BMI: 29.3 Code : 59986-2 Heart Rate 1 : 82 bpm Height: 5'10" SpO2: 96% Weight: 204 lbs 07/14/2017 Blood Pressure 1: 118/72 Code : 8480-6 BMI: 29.1 Code : 03109-6 Heart Rate 1 : 83 bpm Height: 5'10" SpO2: 98% Weight: 203 lbs 06/09/2017 Blood Pressure 1: 120/74 Code : 8480-6 BMI: 29.3 Code : 63478-7 Heart Rate 1 : 91 bpm Height: 5'10" SpO2: 99% Weight: 204 lbs 04/28/2017 Blood Pressure 1: 118/68 Code : 8480-6 BMI: 28.8 Code : 17987-2 Heart Rate 1 : 74 bpm Height: 5'10" SpO2: 96% Weight: 201 lbs 03/14/2017 Blood Pressure 1: 114/74 Code : 8480-6 BMI: 28.6 Code : 23118-6 Heart Rate 1 : 77 bpm Height: [...] data Encounters Encounter Performer Location Codes Date ([id number]) [id number] EST. PATIENT, LEVEL II Diagnosis: Other allergic rhinitis[ICD10: J30.89] Diagnosis: Acute recurrent maxillary sinusitis[ICD10: J01.01] [facility] CPT-4: 81031 04/09/2018 ([id number]) 80961 EST. PATIENT, LEVEL III Diagnosis: Low back pain[ICD10: M54.5] Diagnosis: Sciatica, left side[ICD10: M54.32] [facility] CPT-4: 37127 04/07/2018 ([id number]) [id number] EST. PATIENT, LEVEL III Diagnosis: Acute recurrent maxillary sinusitis[ICD10: J01.01] Diagnosis: Cough[ICD10: R05] [facility], [facility] CPT-4: 47478 04/03/2018 [id number] EST. 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 PATIENT, LEVEL III Diagnosis: Other malaise[ICD10: R53.81] Diagnosis: Acute laryngopharyngitis[ICD10: J06.0] Diagnosis: Other allergic rhinitis[ICD10: J30.89] Sapphire Hollis MD, [facility] CPT-4: 97775 01/07/2018 ([id number]) 49973 EST. PATIENT, LEVEL III Diagnosis: Spinal stenosis, lumbosacral region[ICD10: M48.07] Diagnosis: Spinal stenosis, cervical region[ICD10: M48.02] Elise [facility] MD, [facility] CPT-4: 17177 12/22/2017 ([id number]) 40788 EST. PATIENT, LEVEL III Diagnosis: Cervicalgia[ICD10: M54.2] Diagnosis: Low back pain[ICD10: M54.5] Diagnosis: Testicular hypofunction[ICD10: E29.1] Elise [facility] MD, [facility] CPT-4: 85386 12/15/2017 ([id number]) 02925 EST. PATIENT, LEVEL III Diagnosis: Mixed hyperlipidemia[ICD10: E78.2] Diagnosis: Other insomnia[ICD10: G47.09] Leora [facility] MD, [facility] CPT- 4: 36107 11/17/2017 [id number] EST. PATIENT, LEVEL III Diagnosis: Acute laryngopharyngitis[ICD10: J06.0] Diagnosis: Other allergic rhinitis[ICD10: J30.89] Sapphire Hollis MD, [facility] CPT-4: 65976 10/06/2017 [id number] EST. PATIENT, LEVEL III Diagnosis: Pain in left shoulder[ICD10: M25.512] Sapphire Hollis MD, [facility] CPT-4: 55909 07/24/2017 ([id number]) 98524 EST. PATIENT, LEVEL IV Diagnosis: Mixed hyperlipidemia[ICD10: E78.2] Diagnosis: Chronic obstructive pulmonary disease, unspecified[ICD10: J44.9] Diagnosis: Testicular hypofunction[ICD10: E29.1] Leora [facility] MD, [facility] CPT-4: 03728 07/14/2017 ([id number]) 90196 EST. 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] Diagnosis: Mixed hyperlipidemia[ICD10: E78.2] Diagnosis: Hypoxemia[ICD10: R09.02] [facility] MD, [facility] CPT-4: 57191 06/09/2017 ([id number]) 21754 EST. 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] Leora Hollis MD, [facility] CPT-4: 24884 04/28/2017 ([id number]) Miscellaneous no charge Diagnosis: Impacted cerumen, bilateral[ICD10: H61.23] Leora Hollis MD, [facility] CPT-4: 02449 03/17/2017 ([id number]) OFFICE VISIT, NEW - LEVEL 4 Diagnosis: Mixed hyperlipidemia[ICD10: E78.2] Diagnosis: Chronic pain syndrome[ICD10: G89.4] Diagnosis: Presbycusis, bilateral[ICD10: H91.13] Diagnosis: Impacted cerumen, bilateral[ICD10: H61.23] 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 04/09/2018 Appointment: Elise Castillo WPtel: [facility] [place] [phone] (15 min) Moderate 04/09/2018 Appointment: Elise Castillo WPtel: [facility] [phone] (15 min) Moderate 04/09/2018 Patient Education: Patient Medication Summary Completed 04/09/2018 Visit Plan: Sciatica-left- kenalog injection today in the office- exercises discussed with the patient, pt to continue with antiinflammatories. Pt is to call if the symptoms do not improve or if they worsen. 04/07/2018 Appointment: Elise Castillo WPtel: [address] [place], [place] [id number] (15 min) Moderate 04/07/2018 Patient Education: Patient Medication Summary Completed 04/07/2018 Patient Education: Back Pain Completed 04/07/2018 Visit Plan: Sinusitis - Pt has acute infection - pain in face, maxillary region, Pt informed to use decongestant, RX given to patient, sinus rinses also recommended. Call if symptoms do not show improvement. 04/03/2018 Appointment: Elise Castillo WPtel: [facility] [place] [phone] (15 min) Moderate 04/03/2018 Patient Education: [...] Dr Back 03/20/2018 Appointment: [phone] [phone] [place] (15 min) Moderate 03/20/2018 Appointment: (15 min) Moderate 03/20/2018 Patient Education: Patient Medication Summary Completed 03/20/2018 Visit Plan: Spinal stenosis with back pain - refilled hydrocodone- keep appt with Sleeve Turner for treatment of stenosis of arteries, then pt most-likely to have surgical intervention of spine. PAD - pt will need surgical intervention with stenting. Testicular hypofunction - continue with testosterone. 03/10/2018 Appointment: Leora Hollis WPtel: [facility] [place] [place] (15 min) Moderate 03/10/2018 Patient Education: Patient Medication Summary Completed 03/10/2018 Patient Education: Back Pain Completed 03/10/2018 Patient Education: Cholesterol Management Completed 03/10/2018 Appointment: Leora Hollis WPtel: [facility] [place] [place] (15 min) Moderate 03/09/2018 Appointment: Injection [...] allergy spray. 01/07/2018 Appointment: Sapphire Oneil WPtel: [facility] [place] [place] (15 min) Moderate 01/07/2018 Patient Education: Patient [...] of plan. 12/22/2017 Appointment: Elise Castillo WPtel: [facility] [phone] [place] (15 min) Moderate 12/22/2017 Patient Education: Patient Medication Summary Completed 12/22/2017 Visit Plan: Neck and low back pain -will schedule MRI lumbar and cervical spine for further evaluation and proceed as indicated- patient verbalized understanding of plan. 12/15/2017 Appointment: Elise Castillo WPtel: [phone] [phone] [place] [address] (15 min) Moderate 12/15/2017 Patient Education: Patient Medication Summary Completed 12/15/2017 Patient Education: Back Pain Completed 12/15/2017 Care Plan: MRI LUMBAR SPINE W/O DYE LOINC : 99263-9 Pending 12/15/2017 Care Plan: MRI NECK SPINE W/O DYE LOINC : 95398-8 Pending 12/15/2017 Appointment: Injection 12/04/2017 Patient Education: [...] care surrogate. 11/27/2017 Appointment: Sapphire Oneil WPtel: [phone] [facility] [facility] - Annual Wellness Visit 11/27/2017 Patient Education: [...] to sleep 11/17/2017 Appointment: Leora Hollis WPtel: [facility] [place] (15 min) Moderate 11/17/2017 Patient Education: Patient [...] allergy spray. 10/06/2017 Appointment: Leora Hollis WPtel: [facility] [place] (15 min) Moderate 10/06/2017 Appointment: Sapphire Oneil WPtel: [address] [place], [place] [phone] (15 min) Moderate 10/06/2017 Patient Education: Patient [...] plan. 07/24/2017 Appointment: [facility] [phone] (30 min) Complex 07/24/2017 Patient Education: [...] medications. 07/14/2017 Appointment: Le[facility] Hollis [facility]el[phone] (15 min) Moderate 07/14/2017 Patient Education: Patient Medication Summary Completed 07/14/2017 Appointment: Leora Hollis [facility]Ptel: [phone] [facility] (15 min) Moderate 07/10/2017 Appointment: Injection 06/26/2017 [...] night 06/09/2017 Appointment: Leora Hollis [facility]Ptel: [phone] [facility] (30 min) Complex 06/09/2017 Patient Education: Patient [...] of 15 04/28/2017 Appointment: Leora Hollis WPtel: [phone] [facility] (30 min) Complex 04/28/2017 Patient Education: Patient [...] wax removal 03/14/2017 Appointment: Leora Hollis WPtel: [facility] [place] New Patient 03/14/2017 Patient Education: Patient Medication [...] assure normal liver response to medications. . Increased left shoulder pain and weakness after fall - Discussed with Dr. Back office - they are going to contact him tomorrow for a possible appointment - pt is to notify clinic with any change in the current treatment plan. rocephin and kenalog augmentin to dillons call friday if not starting to feel better . Sinusitis - Pt has acute infection - pain in face, maxillary region, Pt informed to use decongestant, RX given to patient, sinus rinses also recommended. Call if symptoms do not show improvement. REFER FOR PHYSICAL THERAPY AT [facility] -HE HAS A PT HE HAS SEEN THERE BEFORE KEEP APPT WITH DR STEWARD . Cervical and lumbar stenosis -refer for PT to evaluate and treat -follow up with DR Steward as scheduled -refill hydrocodone for prn use only -discussed with patient that he is to use it for breakthrough pain only -patient verbalized understanding of plan. . Spinal stenosis with back pain - refilled hydrocodone- keep appt with Sleeve Turner for treatment of stenosis of arteries, then pt most- likely to have surgical intervention of spine. PAD - pt will need surgical intervention with stenting. Testicular hypofunction - continue with testosterone. mupirocin ointment to lesion on right cheek [...]
--- OUTSIDE RECORDS SUMMARY | 2018-06-12 08:47 | XMS REPORT | CCD ---
Author Author [facility] Organization [facility] Address [address] [place] [address] Phone Care Team Providers Care Talent Acquisition Administrator Name Role Phone PP Unavailable CCM Unavailable Summary Purpose Interface Exchange Insurance Providers Payer name Policy type / Coverage type Covered republican ID Effective Begin Date Effective End Date WPS Medicare Part B Medicare Part B [id number] 2017 Unknown 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 [...] D75.1 04/28/2017 Active 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 ICD-10: I25.10 03/14/2017 Active Chronic pain syndrome ICD-9: 338.4 ICD-10: G89.4 03/14/2017 Active Personal history of other diseases of the circulatory system ICD-9: V12.59 ICD-10: Z86.79 03/14/2017 Active Presbycusis, 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 03/14/2017 Active Medications Medication Codes Instructions Start Date Stop Date Status Fill Instructions meloxicam 15 mg tablet RxNorm: 215032 TAKE ONE TABLET BY MOUTH DAILY 04/17/2018 08/14/2018 Active potassium chloride ER 10 mEq capsule,extended release RxNorm: 431597 TAKE ONE CAPSULE BY MOUTH DAILY 04/17/20182018 Active clopidogrel 75 mg tablet RxNorm: 427506 TAKE ONE TABLET BY MOUTH DAILY 04/17/2018 08/14/2018 Active hydrocodone 5 mg-acetaminophen 325 mg tablet RxNorm: 845196 1-2 Tablet(s) PO Q6 PRN MAY FILL 04/1904/16/2018 05/15/2018 Active Augmentin 875 mg-125 mg tablet RxNorm: 604702 1 Tablet(s) PO BID 04/15/2018 04/28/2018 Active Augmentin 875 mg-125 mg tablet RxNorm: 296997 1 Tablet(s) PO BID 04/15/2018 04/14/2018 Inactive testosterone cypionate 200 mg/mL intramuscular kit RxNorm: 396215 1/2 Milliliter(s ) IM [id number] 04/13/2018 10/09/2018 Active testosterone cypionate 200 mg/mL intramuscular oil RxNorm: 0756884 Milliliter(s) IM 04/13/2018 04/13/2018 Inactive prednisone 20 mg tablet RxNorm: 478773 1 Tablet(s) PO BID 04/0904/13/2018 Inactive Augmentin 875 mg-125 mg tablet RxNorm: 136864 1 Tablet(s) PO BID 04/09/2018 04/11/2018 Inactive Kenalog 40 mg/mL suspension for injection RxNorm: 4554067 1 Milliliter(s) Inj 04/07/2018 04/07/2018 Inactive Kenalog 40 mg/mL suspension for injection RxNorm: 5689629 Milliliter(s) Inj 04/03/2018 04/03/2018 Inactive Augmentin 875 mg-125 mg tablet RxNorm: 976138 1 Tablet(s) PO BID 04/03/2018 04/08/2018 Inactive ceftriaxone 500 mg solution for injection RxNorm: 6649910 Inj 04/03/2018 04/03/2018 Inactive atorvastatin 40 mg tablet RxNorm: 736694 TAKE ONE TABLET BY MOUTH DAILY 03/20/2018 09/10/2019 Active mupirocin 2 % topical ointment RxNorm: 540944 1 Application TOP BID 03/20/2018 03/26/2018 Inactive hydrocodone 5 mg-acetaminophen 325 mg tablet RxNorm: 676525 1-2 Tablet(s) PO Q6 PRN 03/20/2018 04/15/2018 Inactive Keflex 500 mg capsule RxNorm: 547260 1 Capsule(s) PO TID 201803/26/2018 Inactive zolpidem 5 mg tablet RxNorm: 627383 Tablet(s) TAKE ONE TABLET BY MOUTH EVERY NIGHT AT BEDTIME NEEDED 03/18/2018 Active furosemide 40 mg tablet RxNorm: 498143 TAKE ONE TABLET BY MOUTH DAILY 03/17/2018 09/12/2018 Active clopidogrel 75 mg tablet RxNorm: 508824 1 Tablet(s) PO daily 04/15/2018 Inactive testosterone cypionate 200 mg/mL intramuscular oil RxNorm: 1958228 Milliliter(s) IM 03/06/2018 03/06/2018 Inactive testosterone cypionate 200 mg/mL intramuscular oil RxNorm: 4171723 Milliliter(s) IM 02/19/2018 02/19/2018 Inactive hydrocodone 5 mg-acetaminophen 325 mg tablet RxNorm: 693358 1-2 Tablet(s) PO Q6 PRN 02/18/2018 03/09/2018 Inactive zolpidem 5 mg tablet RxNorm: 306152 TAKE ONE TABLET BY MOUTH EVERY NIGHT AT BEDTIME NEEDED 02/13/2018 04/08/2018 Inactive meloxicam 15 mg tablet RxNorm: 105558 TAKE ONE TABLET BY MOUTH DAILY 02/13/2018 04/16/2018 Inactive testosterone cypionate 200 mg/mL intramuscular kit RxNorm: 788033 1/2 Milliliter(s ) IM X3gdexz 02/03/2018 04/12/2018 Inactive testosterone cypionate 200 mg/mL intramuscular oil RxNorm: 892178 Milliliter(s) IM 02/03/2018 02/03/2018 Inactive cefdinir 300 mg capsule RxNorm: 882943 1 Capsule(s) PO BID 01/18/2018 Inactive prednisone 20 mg tablet RxNorm: 445096 2 Tablet(s) PO QAM 01/0901/08/2018 Inactive cefdinir 300 mg capsule RxNorm: 451564 1 Capsule(s) PO BID 01/08/2018 Inactive prednisone 20 mg tablet RxNorm: 597813 2 Tablet(s) PO QAM 01/0904/08/2018 Inactive Zithromax Z-Timothy 250 mg tablet RxNorm: 876985 1 Tablet(s) PO UD 01/07/2018 04/08/2018 Inactive Kenalog 40 mg/mL suspension for injection RxNorm: 0969078 Milliliter(s) Inj 01/07/2018 01/07/2018 Inactive ceftriaxone 500 mg solution for injection RxNorm: 4137304 Inj 01/07/2018 01/07/2018 Inactive testosterone cypionate 200 mg/mL intramuscular oil RxNorm: 504018 1/2 Milliliter(s ) IM 01/05/2018 01/05/2018 Inactive hydrocodone 5 mg-acetaminophen 325 mg tablet RxNorm: 132117 1-2 Tablet(s) PO Q6 PRN 12/22/2017 02/17/2018 Inactive zolpidem 5 mg tablet RxNorm: 987339 1 Tablet(s) PO 30 min before QHS 12/15/2017 02/12/2018 Inactive testosterone cypionate 200 mg/mL intramuscular oil RxNorm: 702035 Milliliter(s) IM 12/15/2017 12/15/2017 Inactive testosterone cypionate 200 mg/mL intramuscular oil RxNorm: 015287 1/2 Milliliter(s ) IM 12/04/2017 12/04/2017 Inactive testosterone cypionate 200 mg/mL intramuscular oil RxNorm: 646386 1/2 Milliliter(s ) IM 11/17/2017 11/17/2017 Inactive potassium chloride ER 10 mEq capsule,extended release RxNorm: 451300 TAKE ONE CAPSULE BY MOUTH DAILY 11/11/20172018 Inactive testosterone cypionate 200 mg/mL intramuscular oil RxNorm: 663935 Milliliter(s) IM 10/22/2017 10/22/2017 Inactive zolpidem 5 mg tablet RxNorm: 899927 1 Tablet(s) PO 30 min before QHS 10/15/2017 10/14/2017 Inactive zolpidem 5 mg tablet RxNorm: 395966 1 Tablet(s) PO 30 min before QHS 10/15/2017 12/13/2017 Inactive Zithromax Z-Timothy 250 mg tablet RxNorm: 488105 1 Tablet(s) PO UD 10/07/2017 11/16/2017 Inactive testosterone cypionate 200 mg/mL intramuscular oil RxNorm: 705393 Milliliter(s) IM 10/06/2017 10/06/2017 Inactive Kenalog 40 mg/mL suspension for injection RxNorm: 1268140 Milliliter(s) Inj 10/06/2017 10/06/2017 Inactive Zithromax Z-Timothy 250 mg tablet RxNorm: 145863 1 Tablet(s) PO UD 10/06/2017 10/06/2017 Inactive testosterone cypionate 200 mg/mL intramuscular oil RxNorm: 173797 Milliliter(s) IM 09/23/2017 09/23/2017 Inactive testosterone cypionate 200 mg/mL intramuscular kit RxNorm: 819718 1/2 Milliliter(s ) IM C0edvug 08/28/2017 02/02/2018 Inactive meloxicam 15 mg tablet RxNorm: 651930 TAKE ONE TABLET BY MOUTH DAILY 08/28/2017 02/12/2018 Inactive testosterone cypionate 200 mg/mL intramuscular oil RxNorm: 764013 Milliliter(s) IM 08/28/2017 08/28/2017 Inactive testosterone cypionate 200 mg/mL intramuscular oil RxNorm: 007333 1/2 Milliliter(s ) IM 08/12/2017 08/12/2017 Inactive meloxicam 15 mg tablet RxNorm: 723481 1 Tablet(s) PO daily 08/201708/27/2017 Inactive atorvastatin 40 mg tablet RxNorm: 158264 TAKE ONE TABLET BY MOUTH DAILY 07/30/2017 02/24/2018 Inactive furosemide 40 mg tablet RxNorm: 335019 TAKE ONE TABLET BY MOUTH DAILY 07/30/2017 02/24/2018 Inactive testosterone cypionate 200 mg/mL intramuscular oil RxNorm: 235964 1/2 Milliliter(s ) IM 07/28/2017 07/28/2017 Inactive testosterone cypionate 200 mg/mL intramuscular oil RxNorm: 870239 1/2 Milliliter(s ) IM 07/14/2017 07/14/2017 Inactive testosterone cypionate 200 mg/mL intramuscular oil RxNorm: 847253 1/2 Milliliter(s ) IM 06/26/2017 06/26/2017 Inactive hydrocodone 5 mg-acetaminophen 325 mg tablet RxNorm: 561866 1 Tablet(s) PO QHS and 1 tab PO daily PRN pain 06/09/2017 Inactive hydrocodone 5 mg-acetaminophen 325 mg tablet RxNorm: 254588 1 Tablet(s) PO daily 06/09/2017 06/18/2017 Inactive testosterone cypionate 200 mg/mL intramuscular oil RxNorm: 356557 1/2 Milliliter(s ) IM 06/09/2017 06/09/2017 Inactive testosterone cypionate 200 mg/mL intramuscular oil RxNorm: 770018 Milliliter(s) IM 05/27/2017 05/27/2017 Inactive testosterone cypionate 200 mg/mL intramuscular oil RxNorm: 054643 Milliliter(s) IM 05/13/2017 05/13/2017 Inactive potassium chloride ER 10 mEq capsule,extended release RxNorm: 676296 1 Capsule(s) PO daily 05/07/2017 11/02/2017 Inactive Vitamin D2 50,000 unit capsule RxNorm: 648810 1 Capsule(s) PO QW 05/06/2017 05/05/2017 Inactive take with OTC vitamin d 2,000 units QD testosterone cypionate 200 mg/mL intramuscular kit RxNorm: 152682 1/2 kit IM 2 x month 05/06/2017 08/27/2017 Inactive Vitamin D2 50,000 unit capsule RxNorm: 452207 1 Capsule(s) PO QW 05/06/2017 08/03/2017 Inactive take with OTC vitamin d 2,000 units QD testosterone cypionate 200 mg/mL intramuscular oil RxNorm: 234672 1/2 Milliliter(s ) IM 04/29/2017 04/29/2017 Inactive fluorouracil 5 % topical cream RxNorm: 531768 1 Application TOP BID 04/28/2017 05/07/2017 Inactive testosterone cypionate 200 mg/mL intramuscular kit RxNorm: 128562 1/2 IM 2 x month 04/28/2017 05/05/2017 Inactive Pamelor 10 mg capsule RxNorm: 278833 1 Capsule(s) PO daily No Start Date Active gabapentin 300 mg capsule RxNorm: 544554 6 Capsule(s) PO daily No Start Date Active cyclobenzaprine 5 mg tablet RxNorm: 245865 1 Tablet(s) PO as needed No Start Date Active diclofenac 1 % topical gel RxNorm: 363244 1 Gram(s) TOP as needed No Start Date Active meloxicam 15 mg tablet RxNorm: 038731 1 Tablet(s) PO daily No Start Date 07/30/2017 Inactive potassium chloride ER 10 mEq tablet,extended release RxNorm: 962994 1 Tablet(s) PO daily No Start Date 05/06/2017 Inactive hydrocodone 5 mg-acetaminophen 325 mg tablet RxNorm: 456207 1 Tablet(s) PO daily No Start Date 06/08/2017 Inactive furosemide 40 mg tablet RxNorm: 766956 1 Tablet(s) PO daily No Start Date 07/29/2017 Inactive atorvastatin 40 mg tablet RxNorm: 948502 1 Tablet(s) PO QHS No Start Date 07/29/2017 Inactive clopidogrel 75 mg tablet RxNorm: 336184 1 Tablet(s) PO daily No Start Date 03/16/2018 Inactive Medication Administered Medication Codes Instructions Start Date Status testosterone cypionate 200 mg/mL intramuscular oil RxNorm: 0135950 Milliliter 04/13/2018 No longer Active Kenalog 40 mg/mL suspension for injection RxNorm: 6232598 1Milliliter 04/07/2018 No longer Active ceftriaxone 500 mg solution for injection RxNorm: 9118694 04/03/2018 No longer Active Kenalog 40 mg/mL suspension for injection RxNorm: 1637457 Milliliter 04/03/2018 No longer Active testosterone cypionate 200 mg/mL intramuscular oil RxNorm: 6439153 Milliliter 03/06/2018 No longer Active testosterone cypionate 200 mg/mL intramuscular oil RxNorm: 1408797 Milliliter 02/19/2018 No longer Active testosterone cypionate 200 mg/mL intramuscular oil RxNorm: 720751 Milliliter 02/03/2018 No longer Active Kenalog 40 mg/mL suspension for injection RxNorm: 8918426 Milliliter 01/07/2018 No longer Active ceftriaxone 500 mg solution for injection RxNorm: 1158415 01/07/2018 No longer Active testosterone cypionate 200 mg/mL intramuscular oil RxNorm: 987845 /2Milliliter 01/05/2018 No longer Active testosterone cypionate 200 mg/mL intramuscular oil RxNorm: 975170 Milliliter 12/15/2017 No longer Active testosterone cypionate 200 mg/mL intramuscular oil RxNorm: 065225 /2Milliliter 12/04/2017 No longer Active testosterone cypionate 200 mg/mL intramuscular oil RxNorm: 314974 1/2Milliliter 11/17/2017 No longer Active testosterone cypionate 200 mg/mL intramuscular oil RxNorm: 370305 Milliliter 10/22/2017 No longer Active testosterone cypionate 200 mg/mL intramuscular oil RxNorm: 654744 Milliliter 10/06/2017 No longer Active Kenalog 40 mg/mL suspension for injection RxNorm: 7318333 Milliliter 10/06/2017 No longer Active testosterone cypionate 200 mg/mL intramuscular oil RxNorm: 453222 Milliliter 09/23/2017 No longer Active testosterone cypionate 200 mg/mL intramuscular oil RxNorm: 939351 Milliliter 08/28/2017 No longer Active testosterone cypionate 200 mg/mL intramuscular oil RxNorm: 795949 /2Milliliter 08/12/2017 No longer Active testosterone cypionate 200 mg/mL intramuscular oil RxNorm: 878949 1/2Milliliter 07/28/2017 No longer Active testosterone cypionate 200 mg/mL intramuscular oil RxNorm: 164028 /2Milliliter 07/14/2017 No longer Active testosterone cypionate 200 mg/mL intramuscular oil RxNorm: 184121 /2Milliliter 06/26/2017 No longer Active testosterone cypionate 200 mg/mL intramuscular oil RxNorm: 035375 /2Milliliter 06/09/2017 No longer Active testosterone cypionate 200 mg/mL intramuscular oil RxNorm: 967957 Milliliter 05/27/2017 No longer Active testosterone cypionate 200 mg/mL intramuscular oil RxNorm: 457380 Milliliter 05/13/2017 No longer Active testosterone cypionate 200 mg/mL intramuscular oil RxNorm: 962170 /2Milliliter 04/29/2017 No longer Active Immunizations Vaccine [...] ICD-9: 380.4 03/17/2017 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 [...] Code Item Item Code Result Date Testosterone Vxw502 Testo 375.1 ng/dL 03/02/2018 Cbc With Differential [...] 25.6 pg 03/02/2018 Cbc With Differential Ord2 Moca% 7.9 % 03/02/2018 Cbc With Differential Ord2 [...] 1.41 K/ul 03/02/2018 Cbc With Differential Ord2 Moca ABS# 0.8 K/ul 03/02/2018 Cbc With Differential Ord2 Eos ABS# 0.2 K/ul 03/02/2018 Cbc With Differential Ord2 Baso ABS# 0.1 K/ul 03/02/2018 Influenza A+B Cub628 Influ A+B Negative 01/08/2018 C A/B FLU [id number] Influenza A Scr TNP:Improper Specimen 01/07 C A/B FLU [id number] Influenza B Scr TNP:Improper Specimen 01/07 C A/B FLU [id number] IC OK? TNP:Improper Specimen 01/07/2018 C A/B FLU [id number] Influenza Intrp B AG: PRID:PT:NOSE:NOM:IF TNP:Improper Specimen 01/07/2018 Hepatic Khy050 ALBUMIN 3.7 g/dL 08/06/2017 Hepatic Kkj096 TPRO 5.9 g/dL 08/06/2017 Hepatic Iau636 GLOB 2.2 g/dL 08/06/2017 Hepatic Oef387 A/G Ratio 1.7 Ratio 08/06/2017 Hepatic Xcr195 ALK PHOS 46 U/L 08/06/2017 Hepatic Drs120 ALT(SGPT) 9 U/L 08/06/2017 Hepatic Zaz587 AST(SGOT) 13 U/L 08/06/2017 Hepatic Agp506 BILI T 0.6 mg/dL 08/06/2017 Hepatic Ihq217 BILI D 0.2 mg/dL 08/06/2017 Hepatic Hqf187 BILI I 0.4 mg/dL 08/06/2017 Testosterone Bgw562 Testo 474.5 ng/dL 08/06/2017 Cbc With Differential Ord2 WBC 5.27 K/ul 08/06/2017 Cbc With Differential Ord2 RBC 5.51 M/ul 08/06/2017 Cbc With Differential Ord2 HGB 15.7 g/dl 08/06/2017 Cbc With Differential Ord2 Neut% 57.6 % 08/06/2017 Cbc With Differential Ord2 HCT 48.6 % 08/06/2017 Cbc With Differential Ord2 Lymph% 25.2 % 08/06/2017 Cbc With Differential Ord2 MCV 88.2 fl 08/06/2017 Cbc With Differential Ord2 MCH 28.5 pg 08/06/2017 Cbc With Differential Ord2 Moca% 11.2 % 08/06/2017 Cbc With Differential Ord2 MCHC 32.3 pg 08/06/2017 Cbc With Differential Ord2 Eos% 4.9 % 08/06/2017 Cbc With Differential Ord2 Baso% 1.1 % 08/06/2017 Cbc With Differential Ord2 PLT 335 K/ul 08/06/2017 Cbc With Differential Ord2 RDW 14.2 % 08/06/2017 Cbc With Differential Ord2 Neut ABS# 3.03 K/ul 08/06/2017 Cbc With Differential Ord2 Lymph ABS# 1.33 K/ul 08/06/2017 Cbc With Differential Ord2 Moca ABS# 0.6 K/ul 08/06/2017 Cbc With Differential Ord2 Eos ABS# 0.3 K/ul 08/06/2017 Cbc With Differential Ord2 Baso ABS# 0.1 K/ul 08/06/2017 Comp Metabolic Bgj606 NA 140 mEq/L 06/02/2017 Comp Metabolic Lkt056 K 3.8 mEq/L 06/02/2017 Comp Metabolic Aui057 CL 102 mEq/L 06/02/2017 Comp Metabolic Wrk058 CO2 30.0 mEq/L 06/02/2017 Comp Metabolic Ftu249 ANION GAP 12 06/02/2017 Comp Metabolic Emj304 GLUCOSE 100 mg/dL 06/02/2017 Comp Metabolic Kxi434 Creat 1.1 mg/dL 06/02/2017 Comp Metabolic Nun129 eGFR 69 ml/min/1.73m2 06/02/2017 Comp Metabolic Xjn572 BUN 15 mg/dL 06/02/2017 Comp Metabolic Rvw146 B/C Ratio 13.4 Ratio 06/02/2017 Comp Metabolic Ngx029 CALCIUM 8.6 mg/dL 06/02/2017 Comp Metabolic Ezq547 ALK PHOS 63 U/L 06/02/2017 Comp Metabolic Enn287 AST(SGOT) 17 U/L 06/02/2017 Comp Metabolic Qev795 ALT(SGPT) 12 U/L 06/02/2017 Comp Metabolic Fux142 BILI T 0.5 mg/dL 06/02/2017 Comp Metabolic Ghq532 ALBUMIN 3.9 g/dL 06/02/2017 Comp Metabolic Qja915 TPRO 6.1 g/dL 06/02/2017 Comp Metabolic Zxt691 GLOB 2.2 g/dL 06/02/2017 Comp Metabolic Ibe342 A/G Ratio 1.8 Ratio 06/02/2017 Comp Metabolic Idg260 Osmo 280 mOsmo 06/02/2017 Vitamin D 25 Oh Kpz6678 VITAMIN D, 25 HYDROXY 40.03 ng/mL Cbc With Differential Ord2 WBC 5.23 K/ul 06/02/2017 Cbc With Differential Ord2 RBC 5.29 M/ul 06/02/2017 Cbc With Differential Ord2 HGB 15.7 g/dl 06/02/2017 Cbc With Differential Ord2 HCT 49.2 % 06/02/2017 Cbc With Differential Ord2 Neut% 56.0 % 06/02/2017 Cbc With Differential Ord2 Lymph% 29.1 % 06/02/2017 Cbc With Differential Ord2 MCV 93.0 fl 06/02/2017 Cbc With Differential Ord2 Moca% 10.5 % 06/02/2017 Cbc With Differential Ord2 MCH 29.7 pg 06/02/2017 Cbc With Differential Ord2 MCHC 31.9 pg 06/02/2017 Cbc With Differential Ord2 Eos% 3.3 % 06/02/2017 Cbc With Differential Ord2 Baso% 1.1 % 06/02/2017 Cbc With Differential Ord2 PLT 267 K/ul 06/02/2017 Cbc With Differential Ord2 RDW 13.8 % 06/02/2017 Cbc With Differential Ord2 Neut ABS# 2.93 K/ul 06/02/2017 Cbc With Differential Ord2 Lymph ABS# 1.52 K/ul 06/02/2017 Cbc With Differential Ord2 Moca ABS# 0.6 K/ul 06/02/2017 Cbc With Differential Ord2 Eos ABS# 0.2 K/ul 06/02/2017 Cbc With Differential Ord2 Baso ABS# 0.1 K/ul 06/02/2017 Testosterone Iqw458 Testo 198.4 ng/dL 04/29/2017 Vitamin D 25 Oh Cnw0611 VITAMIN D, 25 HYDROXY 29.25 ng/mL Lipid [...] clear 12/22/2017 None Full Exam - General 1995 Ears/Nose/Throat oral cavity/pharynx/larynx Overall: hypopharynx benign 12/22/2017 [...] Procedure Codes Date THER/PROPH/DIAG INJ SC/IM CPT-4: 15259 04/13/2018 TRIAMCINOLONE ACET INJ NOS CPT-4: J3301 04/07/2018 TRIAMCINOLONE ACET INJ NOS CPT-4: J3301 04/03/2018 ROCEPHIN, PER 250 MG CPT-4: J0696 04/03/2018 THER/PROPH/DIAG INJ SC/IM CPT-4: 59728 03/20/2018 THER/PROPH/DIAG INJ SC/IM CPT-4: 44817 03/06/2018 THER/PROPH/DIAG INJ SC/IM CPT-4: 84125 02/19/2018 THER/PROPH/DIAG INJ SC/IM CPT-4: 78726 02/03/2018 THER/PROPH/DIAG INJ SC/IM CPT-4: 78359 01/07/2018 TRIAMCINOLONE ACET INJ NOS CPT-4: J3301 01/07/2018 ROCEPHIN, PER 250 MG CPT-4: J0696 01/07/2018 THER/PROPH/DIAG INJ SC/IM CPT-4: 80711 01/05/2018 THER/PROPH/DIAG INJ SC/IM CPT-4: 76720 12/15/2017 THER/PROPH/DIAG INJ SC/IM CPT-4: 62475 12/04/2017 PPPS, SUBSEQ VISIT CPT -4: G0439 11/27/2017 ADMIN INFLUENZA VIRUS VAC CPT-4: G0008 11/17/2017 FLU VAC NO PRSV 4 FATOU 3 YRS+ CPT-4: 21251 11/17/2017 THER/PROPH/DIAG INJ SC/IM CPT-4: 85847 11/17/2017 THER/PROPH/DIAG INJ SC/IM CPT-4: 28499 10/22/2017 THER/PROPH/DIAG INJ SC/IM CPT-4: 94287 10/06/2017 TRIAMCINOLONE ACET INJ NOS CPT-4: J3301 10/06/2017 THER/PROPH/DIAG INJ SC/IM CPT-4: 60067 09/23/2017 THER/PROPH/DIAG INJ SC/IM CPT-4: 37935 08/28/2017 THER/PROPH/DIAG INJ SC/IM CPT-4: 65505 08/12/2017 THER/PROPH/DIAG INJ SC/IM CPT-4: 40550 07/28/2017 THER/PROPH/DIAG INJ SC/IM CPT-4: 58423 07/14/2017 THER/PROPH/DIAG INJ SC/IM CPT-4: 65055 06/26/2017 THER/PROPH/DIAG INJ SC/IM CPT-4: 36473 06/09/2017 THER/PROPH/DIAG INJ SC/IM CPT-4: 28990 05/27/2017 THER/PROPH/DIAG INJ SC/IM CPT-4: 44615 05/13/2017 THER/PROPH/DIAG INJ SC/IM CPT-4: 67780 04/29/2017 Vital Signs Date Vital 04/09/2018 Blood Pressure 1: 120/70 Code : 8480-6 Heart Rate 1: 66 bpm Height: 5'10" SpO2: 98% Weight: 04/07/2018 Blood Pressure 1: 126/74 Code : 8480-6 BMI: 29.0 Code : 61515-6 Heart Rate 1 : 75 bpm Height: 5'10" SpO2: 98% Weight: 202 lbs 04/03/2018 Blood Pressure 1: 130/74 Code : 8480-6 BMI: 29.0 Code : 43858-0 Heart Rate 1 : 89 bpm Height: 5'10" SpO2: 98% Temperature: 37.4 (C) / 99.4 (F) Weight: 202 lbs 03/20/2018 Blood Pressure 1: 122/60 Code : 8480-6 Heart Rate 1: 76 bpm Height: 5'10" SpO2: 96% Weight: 03/10/2018 Blood Pressure 1: 120/70 Code : 8480-6 BMI: 29.0 Code : 60514-4 Heart Rate 1 : 82 bpm Height: 5'10" SpO2: 95% Weight: 202 lbs 01/07/2018 Blood Pressure 1: 126/66 Code : 8480-6 BMI: 30.1 Code : 13224-3 Heart Rate 1 : 75 bpm Height: 5'10" SpO2: 97% Temperature: 36.5 (C) / 97.7 (F) Weight: 210 lbs 12/22/2017 Blood Pressure 1: 124/70 Code : 8480-6 BMI: 29.7 Code : 17766-5 Heart Rate 1 : 84 bpm Height: 5'10" SpO2: 94% Weight: 207 lbs 12/15/2017 Blood Pressure 1: 122/82 Code : 8480-6 BMI: 30.0 Code : 00872-0 Heart Rate 1 : 82 bpm Height: 5'10" SpO2: 93% Weight: 209 lbs 11/27/2017 Blood Pressure 1: 132/68 Code : 8480-6 BMI: 29.3 Code : 57836-0 Heart Rate 1 : 71 bpm Height: 5'10" SpO2: 97% Waist Measure (cm): 97 cm Weight: 204 lbs 11/17/2017 Blood Pressure 1: 130/80 Code : 8480-6 BMI: 29.3 Code : 94434-3 Heart Rate 1 : 73 bpm Height: 5'10" SpO2: 99% Weight: 204 lbs 10/06/2017 Blood Pressure 1: 124/60 Code : 8480-6 BMI: 28.8 Code : 42983-0 Heart Rate 1 : 70 bpm Height: 5'10" SpO2: 98% Weight: 201 lbs 07/24/2017 Blood Pressure 1: 118/70 Code : 8480-6 BMI: 29.3 Code : 79222-2 Heart Rate 1 : 82 bpm Height: 5'10" SpO2: 96% Weight: 204 lbs 07/14/2017 Blood Pressure 1: 118/72 Code : 8480-6 BMI: 29.1 Code : 86442-2 Heart Rate 1 : 83 bpm Height: 5'10" SpO2: 98% Weight: 203 lbs 06/09/2017 Blood Pressure 1: 120/74 Code : 8480-6 BMI: 29.3 Code : 76554-6 Heart Rate 1 : 91 bpm Height: 5'10" SpO2: 99% Weight: 204 lbs 04/28/2017 Blood Pressure 1: 118/68 Code : 8480-6 BMI: 28.8 Code : 11095-7 Heart Rate 1 : 74 bpm Height: 5'10" SpO2: 96% Weight: 201 lbs 03/14/2017 Blood Pressure 1: 114/74 Code : 8480-6 BMI: 28.6 Code : 61033-6 Heart Rate 1 : 77 bpm Height: [...] data Encounters Encounter Performer Location Codes Date ([id number]) [id number] EST. PATIENT, LEVEL II Diagnosis: Other allergic rhinitis[ICD10: J30.89] Diagnosis: Acute recurrent maxillary sinusitis[ICD10: J01.01] Elise Hollis MD, [facility] CPT-4: 79202 04/09/2018 ([id number]) [id number] EST. PATIENT, LEVEL III Diagnosis: Low back pain[ICD10: M54.5] Diagnosis: Sciatica, left side[ICD10: M54.32] [facility] CPT-4: 41683 04/07/2018 ([id number]) [id number] EST. PATIENT, LEVEL III Diagnosis: Acute recurrent maxillary sinusitis[ICD10: J01.01] Diagnosis: Cough[ICD10: R05] [facility] CPT-4: 15593 04/03/2018 [id number] EST. 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 PATIENT, LEVEL III Diagnosis: Other malaise[ICD10: R53.81] Diagnosis: Acute laryngopharyngitis[ICD10: J06.0] Diagnosis: Other allergic rhinitis[ICD10: J30.89] Sapphire Hollis MD, [facility] CPT-4: 91478 01/07/2018 ([id number]) [id number] EST. PATIENT, LEVEL III Diagnosis: Spinal stenosis, lumbosacral region[ICD10: M48.07] Diagnosis: Spinal stenosis, cervical region[ICD10: M48.02] Elise Hollis MD, [facility] CPT-4: 84453 12/22/2017 ([id number]) [id number] EST. 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 PATIENT, LEVEL III Diagnosis: Mixed hyperlipidemia[ICD10: E78.2] Diagnosis: Other insomnia[ICD10: G47.09] Leora Hollis MD, [facility] CPT- 4: 91598 11/17/2017 [id number] EST. PATIENT, LEVEL III Diagnosis: Acute laryngopharyngitis[ICD10: J06.0] Diagnosis: Other allergic rhinitis[ICD10: J30.89] Sapphire Hollis MD [facility] CPT-4: 22348 10/06/2017 [id number] EST. PATIENT, LEVEL III Diagnosis: Pain in left shoulder[ICD10: M25.512] Sapphire Hollis MD [facility] CPT-4: 10489 07/24/2017 ([id number]) 19208 EST. 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] Diagnosis: Mixed hyperlipidemia[ICD10: E78.2] Diagnosis: Hypoxemia[ICD10: R09.02] Leora Hollis MD, [facility] CPT-4: 99316 06/09/2017 ([id number]) [id number] EST. 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] Leora Hollis MD, [facility] CPT-4: 61164 04/28/2017 ([id number]) Miscellaneous no charge Diagnosis: Impacted cerumen, bilateral[ICD10: H61.23] Leora Hollis MD [facility] CPT-4: 10768 03/17/2017 ([id number]) OFFICE VISIT, NEW - LEVEL 4 Diagnosis: Mixed hyperlipidemia[ICD10: E78.2] Diagnosis: Chronic pain syndrome[ICD10: G89.4] Diagnosis: Presbycusis, bilateral[ICD10: H91.13] Diagnosis: Impacted cerumen, bilateral[ICD10: H61.23] 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 04/09/2018 Appointment: Elise Castillo WPtel: [phone] [phone] (15 min) Moderate 04/09/2018 Appointment: Elise Castillo WPtel: [phone] [phone] (15 min) Moderate 04/09/2018 Patient Education: Patient Medication Summary Completed 04/09/2018 Visit Plan: Sciatica-left- kenalog injection today in the office- exercises discussed with the patient, pt to continue with antiinflammatories. Pt is to call if the symptoms do not improve or if they worsen. 04/07/2018 Appointment: Elise Castillo WPtel: [phone] (15 min) Moderate 04/07/2018 Patient Education: Patient Medication Summary Completed 04/07/2018 Patient Education: Back Pain Completed 04/07/2018 Visit Plan: Sinusitis - Pt has acute infection - pain in face, maxillary region, Pt informed to use decongestant, RX given to patient, sinus rinses also recommended. Call if symptoms do not show improvement. 04/03/2018 Appointment: Elise Castillo WPtel: [phone] [place] (15 min) Moderate 04/03/2018 Patient Education: Patient [...] Dr Back 03/20/2018 Appointment: Elise Castillo WPtel: [phone] [place] (15 min) Moderate 03/20/2018 Appointment: (15 min) Moderate 03/20/2018 Patient Education: Patient Medication Summary Completed 03/20/2018 Visit Plan: Spinal stenosis with back pain - refilled hydrocodone- keep appt with [employer] Inspector for treatment of stenosis of arteries, then pt most-likely to have surgical intervention of spine. PAD - pt will need surgical intervention with stenting. Testicular hypofunction - continue with testosterone. 03/10/2018 Appointment: Leora Hollis WPtel: [facility]5 [phone] [place] (15 min) Moderate 03/10/2018 Patient Education: Patient Medication Summary Completed 03/10/2018 Patient Education: Back Pain Completed 03/10/2018 Patient Education: Cholesterol Management Completed 03/10/2018 Appointment: Leora Hollis WPtel: [phone] [place] (15 min) Moderate 03/09/2018 Appointment: Injection [...] allergy spray. 01/07/2018 Appointment: Sapphire Oneil WPtel: [facility] (15 min) Moderate 01/07/2018 Patient Education: [...] of plan. 12/22/2017 Appointment: Elise Castillo WPtel: [phone] [phone] [place] (15 min) Moderate 12/22/2017 Patient Education: Patient Medication Summary Completed 12/22/2017 Visit Plan: Neck and low back pain -will schedule MRI lumbar and cervical spine for further evaluation and proceed as indicated- patient verbalized understanding of plan. 12/15/2017 App[facility]ment[phone] (15 min) Moderate 12/15/2017 Patient Education: Patient Medication Summary Completed 12/15/2017 Patient Education: Back Pain Completed 12/15/2017 Care Plan: MRI LUMBAR SPINE W/O DYE LOINC : 91826-0 Pending 12/15/2017 Care Plan: MRI NECK SPINE W/O DYE LOINC : 69765-8 Pending 12/15/2017 Appointment: Injection 12/04/2017 Patient Education: [...] surrogate. 11/27/2017 Appointment: Sapphire Oneil [facility]Ptel[phone] [facility] - Annual Wellness Visit 11/27/2017 [...] sleep 11/17/2017 Appointment: Leora Hollis WPtel: [phone] [facility] (15 min) Moderate 11/17/2017 Patient Education: [...] spray. 10/06/2017 Appointment: Leora Hollis WPtel: [phone] [phone] (15 min) Moderate 10/06/2017 Appointment: Sapphire Oneil WPtel: [phone] [facility] (15 min) Moderate 10/06/2017 Patient Education: Patient [...] plan. 07/24/2017 Appointment: Sapphire Oneil WPtel: [phone] [place] (30 min) Complex 07/24/2017 Patient Education: [...] medications. 07/14/2017 App[facility]ment[phone] (15 min) Moderate 07/14/2017 Patient Education: Patient Medication Summary Completed 07/14/2017 Appointment: Le[facility] Hollis [facility]el[phone] (15 min) Moderate 07/10/2017 Appointment: Injection 06/26/2017 [...] night 06/09/2017 Appointment: Le[facility] Hollis [facility]el[phone] [place] (30 min) Complex 06/09/2017 Patient Education: Patient [...] of 15 04/28/2017 Appointment: Leora Hollis WPtel: [phone] [facility] (30 min) Complex 04/28/2017 Patient Education: Patient [...] wax removal 03/14/2017 Appointment: Le[facility] Hollis [facility]Ptel: [phone] New Patient 03/14/2017 Patient Education: Patient Medication Summary Completed 03/14/2017 Instructions Comment mupirocin ointment to lesion on right cheek [...] in the nasal steroid allergy spray. . Medicare Exam - today we discussed [...] spray in the nasal steroid allergy spray. for insomnia - I recommend Extended Release [...] bedtime if having trouble getting to sleep mupirocin ointment to lesion on right cheek [...] tear -schedule appt with Dr Back . Hyperlipidemia - pt has been counseled [...] on Friday morning for ear wax removal . Spinal stenosis with back pain - refilled hydrocodone- keep appt with [employer] Inspector for treatment of stenosis of arteries, then pt most- likely to have surgical intervention of spine. PAD - pt will need surgical intervention with stenting. Testicular hypofunction - continue with testosterone. REFER FOR PHYSICAL THERAPY AT [facility] -HE HAS A PT HE HAS SEEN [...] if symptoms do not show improvement. . Hypogonadism - testosterone shot to be given every two weeks as previously discussed - pt to have labs in 3 months Hypersomnia with polycythemia - I have recommended pt to start on oxygen - Pt wants to use [employer] for oxygen concentrator with humidification at night . Increased left shoulder pain and weakness after fall - Discussed with Dr. Back office - they are going to contact him tomorrow for a possible appointment - pt is to notify clinic with any change in the current treatment plan.
--- OUTSIDE RECORDS SUMMARY | 2018-06-12 08:50 | XMS REPORT | CCD ---
Author Author [facility] Organization [facility] Address [address] [place] [address] Phone Care Team Providers Care Otm Consultant Name Role Phone PP Unavailable CCM Unavailable Summary Purpose Interface Exchange Insurance Providers Payer name Policy type / Coverage type Covered alliance party ID Effective Begin Date Effective End Date WPS Medicare Part B Medicare Part B [id number] 2017 Unknown [facility] Medicare Part B [id number] 2017 Unknown Family history Father Diagnosis Age At Onset Heart Attack Unknown Social History Social History Element Codes Description Effective Dates Marital status Unknown 03/14/2017 Number of children Unknown 2 03/14/[address]: 6360184 Former smoker Quit 11/03/00; smoke 1/2 pack/day x15 years 03/14/[address]: 013509977 Never drinks alcohol 03/14/2017 Allergies, Adverse Reactions, [...] hydrocodone 5 mg-acetaminophen 325 mg tablet RxNorm: 221975 1-2 Tablet(s) PO Q6 PRN MAY FILL 04/1904/16/2018 05/15/2018 Active Augmentin 875 mg-125 mg tablet RxNorm: 183291 1 Tablet(s) PO BID 04/15/2018 04/28/2018 Active Augmentin 875 mg-125 mg tablet RxNorm: 264299 1 Tablet(s) PO BID 04/15/2018 04/14/2018 Inactive testosterone cypionate 200 mg/mL intramuscular kit RxNorm: 439398 1/2 Milliliter(s ) IM [id number] 04/13/2018 10/09/2018 Active testosterone cypionate 200 mg/mL intramuscular oil RxNorm: 2909722 Milliliter(s) IM 04/13/2018 04/13/2018 Inactive prednisone 20 mg tablet RxNorm: 393768 1 Tablet(s) PO BID 04/0904/13/2018 Inactive Augmentin 875 mg-125 mg tablet RxNorm: 596314 1 Tablet(s) PO BID 04/09/2018 04/11/2018 Inactive Kenalog 40 mg/mL suspension for injection RxNorm: 3851982 1 Milliliter(s) Inj 04/07/2018 04/07/2018 Inactive Kenalog 40 mg/mL suspension for injection RxNorm: 5793419 Milliliter(s) Inj 04/03/2018 04/03/2018 Inactive Augmentin 875 mg-125 mg tablet RxNorm: 287228 1 Tablet(s) PO BID 04/03/2018 04/08/2018 Inactive ceftriaxone 500 mg solution for injection RxNorm: 0148326 Inj 04/03/2018 04/03/2018 Inactive atorvastatin 40 mg tablet RxNorm: 625493 TAKE ONE TABLET BY MOUTH DAILY 03/20/2018 09/10/2019 Active mupirocin 2 % topical ointment RxNorm: 129119 1 Application TOP BID 03/20/2018 03/26/2018 Inactive hydrocodone 5 mg-acetaminophen 325 mg tablet RxNorm: 558306 1-2 Tablet(s) PO Q6 PRN 03/20/2018 04/15/2018 Inactive Keflex 500 mg capsule RxNorm: 149467 1 Capsule(s) PO TID 201803/26/2018 Inactive zolpidem 5 mg tablet RxNorm: 920307 Tablet(s) TAKE ONE TABLET BY MOUTH EVERY NIGHT AT BEDTIME NEEDED 03/18/2018 Active clopidogrel 75 mg tablet RxNorm: 959417 1 Tablet(s) PO daily 04/15/2018 Inactive furosemide 40 mg tablet RxNorm: 462602 TAKE ONE TABLET BY MOUTH DAILY 03/17/2018 09/12/2018 Active testosterone cypionate 200 mg/mL intramuscular oil RxNorm: 5521998 Milliliter(s) IM 03/06/2018 03/06/2018 Inactive testosterone cypionate 200 mg/mL intramuscular oil RxNorm: 1830536 Milliliter(s) IM 02/19/2018 02/19/2018 Inactive hydrocodone 5 mg-acetaminophen 325 mg tablet RxNorm: 909542 1-2 Tablet(s) PO Q6 PRN 02/18/2018 03/09/2018 Inactive meloxicam 15 mg tablet RxNorm: 866605 TAKE ONE TABLET BY MOUTH DAILY 02/13/2018 08/11/2018 Active zolpidem 5 mg tablet RxNorm: 471314 TAKE ONE TABLET BY MOUTH EVERY NIGHT AT BEDTIME NEEDED 02/13/2018 04/08/2018 Inactive testosterone cypionate 200 mg/mL intramuscular kit RxNorm: 031686 1/2 Milliliter(s ) IM [id number] 02/03/2018 04/12/2018 Inactive testosterone cypionate 200 mg/mL intramuscular oil RxNorm: 144593 Milliliter(s) IM 02/03/2018 02/03/2018 Inactive cefdinir 300 mg capsule RxNorm: 371067 1 Capsule(s) PO BID 01/18/2018 Inactive prednisone 20 mg tablet RxNorm: 888256 2 Tablet(s) PO QAM 01/0901/08/2018 Inactive cefdinir 300 mg capsule RxNorm: 827286 1 Capsule(s) PO BID 01/08/2018 Inactive prednisone 20 mg tablet RxNorm: 878834 2 Tablet(s) PO QAM 01/0904/08/2018 Inactive Zithromax Z-Timothy 250 mg tablet RxNorm: 497864 1 Tablet(s) PO UD 01/07/2018 04/08/2018 Inactive Kenalog 40 mg/mL suspension for injection RxNorm: 0950910 Milliliter(s) Inj 01/07/2018 01/07/2018 Inactive ceftriaxone 500 mg solution for injection RxNorm: 3681570 Inj 01/07/2018 01/07/2018 Inactive testosterone cypionate 200 mg/mL intramuscular oil RxNorm: 766938 1/2 Milliliter(s ) IM 01/05/2018 01/05/2018 Inactive hydrocodone 5 mg-acetaminophen 325 mg tablet RxNorm: 201578 1-2 Tablet(s) PO Q6 PRN 12/22/2017 02/17/2018 Inactive zolpidem 5 mg tablet RxNorm: 445397 1 Tablet(s) PO 30 min before QHS 12/15/2017 02/12/2018 Inactive testosterone cypionate 200 mg/mL intramuscular oil RxNorm: 869025 Milliliter(s) IM 12/15/2017 12/15/2017 Inactive testosterone cypionate 200 mg/mL intramuscular oil RxNorm: 846286 1/2 Milliliter(s ) IM 12/04/2017 12/04/2017 Inactive testosterone cypionate 200 mg/mL intramuscular oil RxNorm: 581724 1/2 Milliliter(s ) IM 11/17/2017 11/17/2017 Inactive potassium chloride ER 10 mEq capsule,extended release RxNorm: 062530 TAKE ONE CAPSULE BY MOUTH DAILY 11/11/20172018 Inactive testosterone cypionate 200 mg/mL intramuscular oil RxNorm: 105982 Milliliter(s) IM 10/22/2017 10/22/2017 Inactive zolpidem 5 mg tablet RxNorm: 293580 1 Tablet(s) PO 30 min before QHS 10/15/2017 10/14/2017 Inactive zolpidem 5 mg tablet RxNorm: 483336 1 Tablet(s) PO 30 min before QHS 10/15/2017 12/13/2017 Inactive Zithromax Z-Timothy 250 mg tablet RxNorm: 847718 1 Tablet(s) PO UD 10/07/2017 11/16/2017 Inactive testosterone cypionate 200 mg/mL intramuscular oil RxNorm: 158677 Milliliter(s) IM 10/06/2017 10/06/2017 Inactive Kenalog 40 mg/mL suspension for injection RxNorm: 7812654 Milliliter(s) Inj 10/06/2017 10/06/2017 Inactive Zithromax Z-Timothy 250 mg tablet RxNorm: 517504 1 Tablet(s) PO UD 10/06/2017 10/06/2017 Inactive testosterone cypionate 200 mg/mL intramuscular oil RxNorm: 154218 Milliliter(s) IM 09/23/2017 09/23/2017 Inactive testosterone cypionate 200 mg/mL intramuscular kit RxNorm: 850922 1/2 Milliliter(s ) IM [id number] 08/28/2017 02/02/2018 Inactive meloxicam 15 mg tablet RxNorm: 810421 TAKE ONE TABLET BY MOUTH DAILY 08/28/2017 02/12/2018 Inactive testosterone cypionate 200 mg/mL intramuscular oil RxNorm: 775028 Milliliter(s) IM 08/28/2017 08/28/2017 Inactive testosterone cypionate 200 mg/mL intramuscular oil RxNorm: 549679 1/2 Milliliter(s ) IM 08/12/2017 08/12/2017 Inactive meloxicam 15 mg tablet RxNorm: 649664 1 Tablet(s) PO daily 08/201708/27/2017 Inactive atorvastatin 40 mg tablet RxNorm: 993550 TAKE ONE TABLET BY MOUTH DAILY 07/30/2017 02/24/2018 Inactive furosemide 40 mg tablet RxNorm: 518114 TAKE ONE TABLET BY MOUTH DAILY 07/30/2017 02/24/2018 Inactive testosterone cypionate 200 mg/mL intramuscular oil RxNorm: 269083 1/2 Milliliter(s ) IM 07/28/2017 07/28/2017 Inactive testosterone cypionate 200 mg/mL intramuscular oil RxNorm: 351419 1/2 Milliliter(s ) IM 07/14/2017 07/14/2017 Inactive testosterone cypionate 200 mg/mL intramuscular oil RxNorm: 338334 1/2 Milliliter(s ) IM 06/26/2017 06/26/2017 Inactive hydrocodone 5 mg-acetaminophen 325 mg tablet RxNorm: 451874 1 Tablet(s) PO QHS and 1 tab PO daily PRN pain 06/09/2017 Inactive hydrocodone 5 mg-acetaminophen 325 mg tablet RxNorm: 517741 1 Tablet(s) PO daily 06/09/2017 06/18/2017 Inactive testosterone cypionate 200 mg/mL intramuscular oil RxNorm: 258352 1/2 Milliliter(s ) IM 06/09/2017 06/09/2017 Inactive testosterone cypionate 200 mg/mL intramuscular oil RxNorm: 807806 Milliliter(s) IM 05/27/2017 05/27/2017 Inactive testosterone cypionate 200 mg/mL intramuscular oil RxNorm: 988995 Milliliter(s) IM 05/13/2017 05/13/2017 Inactive potassium chloride ER 10 mEq capsule,extended release RxNorm: 852729 1 Capsule(s) PO daily 05/07/2017 11/02/2017 Inactive Vitamin D2 50,000 unit capsule RxNorm: 229048 1 Capsule(s) PO QW 05/06/2017 05/05/2017 Inactive take with OTC vitamin d 2,000 units QD testosterone cypionate 200 mg/mL intramuscular kit RxNorm: 524383 1/2 kit IM 2 x month 05/06/2017 08/27/2017 Inactive Vitamin D2 50,000 unit capsule RxNorm: 676445 1 Capsule(s) PO QW 05/06/2017 08/03/2017 Inactive take with OTC vitamin d 2,000 units QD testosterone cypionate 200 mg/mL intramuscular oil RxNorm: 119073 1/2 Milliliter(s ) IM 04/29/2017 04/29/2017 Inactive fluorouracil 5 % topical cream RxNorm: 567675 1 Application TOP BID 04/28/2017 05/07/2017 Inactive testosterone cypionate 200 mg/mL intramuscular kit RxNorm: 306265 1/2 IM 2 x month 04/28/2017 05/05/2017 Inactive Pamelor 10 mg capsule RxNorm: 248454 1 Capsule(s) PO daily No Start Date Active gabapentin 300 mg capsule RxNorm: 877278 6 Capsule(s) PO daily No Start Date Active cyclobenzaprine 5 mg tablet RxNorm: 506197 1 Tablet(s) PO as needed No Start Date Active diclofenac 1 % topical gel RxNorm: 885546 1 Gram(s) TOP as needed No Start Date Active meloxicam 15 mg tablet RxNorm: 239144 1 Tablet(s) PO daily No Start Date 07/30/2017 Inactive potassium chloride ER 10 mEq tablet,extended release RxNorm: 550747 1 Tablet(s) PO daily No Start Date 05/06/2017 Inactive hydrocodone 5 mg-acetaminophen 325 mg tablet RxNorm: 862061 1 Tablet(s) PO daily No Start Date 06/08/2017 Inactive furosemide 40 mg tablet RxNorm: 206218 1 Tablet(s) PO daily No Start Date 07/29/2017 Inactive atorvastatin 40 mg tablet RxNorm: 460471 1 Tablet(s) PO QHS No Start Date 07/29/2017 Inactive clopidogrel 75 mg tablet RxNorm: 940457 1 Tablet(s) PO daily No Start Date 03/16/2018 Inactive Medication Administered Medication Codes Instructions Start Date Status testosterone cypionate 200 mg/mL intramuscular oil RxNorm: 4314554 Milliliter 04/13/2018 No longer Active Kenalog 40 mg/mL suspension for injection RxNorm: 4281378 1Milliliter 04/07/2018 No longer Active ceftriaxone 500 mg solution for injection RxNorm: 9440654 04/03/2018 No longer Active Kenalog 40 mg/mL suspension for injection RxNorm: 5190364 Milliliter 04/03/2018 No longer Active testosterone cypionate 200 mg/mL intramuscular oil RxNorm: 0247772 Milliliter 03/06/2018 No longer Active testosterone cypionate 200 mg/mL intramuscular oil RxNorm: 9868553 Milliliter 02/19/2018 No longer Active testosterone cypionate 200 mg/mL intramuscular oil RxNorm: 774535 Milliliter 02/03/2018 No longer Active Kenalog 40 mg/mL suspension for injection RxNorm: 7381891 Milliliter 01/07/2018 No longer Active ceftriaxone 500 mg solution for injection RxNorm: 4557182 01/07/2018 No longer Active testosterone cypionate 200 mg/mL intramuscular oil RxNorm: 498706 /2Milliliter 01/05/2018 No longer Active testosterone cypionate 200 mg/mL intramuscular oil RxNorm: 733215 Milliliter 12/15/2017 No longer Active testosterone cypionate 200 mg/mL intramuscular oil RxNorm: 998829 /2Milliliter 12/04/2017 No longer Active testosterone cypionate 200 mg/mL intramuscular oil RxNorm: 290872 /2Milliliter 11/17/2017 No longer Active testosterone cypionate 200 mg/mL intramuscular oil RxNorm: 470359 Milliliter 10/22/2017 No longer Active testosterone cypionate 200 mg/mL intramuscular oil RxNorm: 509536 Milliliter 10/06/2017 No longer Active Kenalog 40 mg/mL suspension for injection RxNorm: 2519838 Milliliter 10/06/2017 No longer Active testosterone cypionate 200 mg/mL intramuscular oil RxNorm: 635397 Milliliter 09/23/2017 No longer Active testosterone cypionate 200 mg/mL intramuscular oil RxNorm: 219638 Milliliter 08/28/2017 No longer Active testosterone cypionate 200 mg/mL intramuscular oil RxNorm: 215100 /2Milliliter 08/12/2017 No longer Active testosterone cypionate 200 mg/mL intramuscular oil RxNorm: 893751 /2Milliliter 07/28/2017 No longer Active testosterone cypionate 200 mg/mL intramuscular oil RxNorm: 986066 /2Milliliter 07/14/2017 No longer Active testosterone cypionate 200 mg/mL intramuscular oil RxNorm: 202540 /2Milliliter 06/26/2017 No longer Active testosterone cypionate 200 mg/mL intramuscular oil RxNorm: 044775 1/2Milliliter 06/09/2017 No longer Active testosterone cypionate 200 mg/mL intramuscular oil RxNorm: 483885 Milliliter 05/27/2017 No longer Active testosterone cypionate 200 mg/mL intramuscular oil RxNorm: 548261 Milliliter 05/13/2017 No longer Active testosterone cypionate 200 mg/mL intramuscular oil RxNorm: 753375 1/2Milliliter 04/29/2017 No longer Active Immunizations Vaccine [...] Code Item Item Code Result Date Testosterone Qoi620 Testo 375.1 ng/dL 03/02/2018 Cbc With Differential [...] 25.6 pg 03/02/2018 Cbc With Differential Ord2 Bonner% 7.9 % 03/02/2018 Cbc With Differential Ord2 [...] 1.41 K/ul 03/02/2018 Cbc With Differential Ord2 Bonner ABS# 0.8 K/ul 03/02/2018 Cbc With Differential Ord2 Eos ABS# 0.2 K/ul 03/02/2018 Cbc With Differential Ord2 Baso ABS# 0.1 K/ul 03/02/2018 Influenza A+B Jok105 Influ A+B Negative 01/08/2018 C A/B FLU [id number] Influenza A Scr TNP:Improper Specimen 01/07 C A/B FLU [id number] Influenza B Scr TNP:Improper Specimen 01/07 C A/B FLU [id number] IC OK? TNP:Improper Specimen 01/07/2018 C A/B FLU [id number] Influenza Intrp B AG: PRID:PT:NOSE:NOM:IF TNP:Improper Specimen 01/07/2018 Hepatic Djd311 ALBUMIN 3.7 g/dL 08/06/2017 Hepatic Iob102 TPRO 5.9 g/dL 08/06/2017 Hepatic Yoz055 GLOB 2.2 g/dL 08/06/2017 Hepatic Jsa269 A/G Ratio 1.7 Ratio 08/06/2017 Hepatic Gom203 ALK PHOS 46 U/L 08/06/2017 Hepatic Pre852 ALT(SGPT) 9 U/L 08/06/2017 Hepatic Vbu825 AST(SGOT) 13 U/L 08/06/2017 Hepatic Tap943 BILI T 0.6 mg/dL 08/06/2017 Hepatic Zyh810 BILI D 0.2 mg/dL 08/06/2017 Hepatic Cdy333 BILI I 0.4 mg/dL 08/06/2017 Testosterone Ewk981 Testo 474.5 ng/dL 08/06/2017 Cbc With Differential [...] 28.5 pg 08/06/2017 Cbc With Differential Ord2 Bonner% 11.2 % 08/06/2017 Cbc With Differential Ord2 [...] 1.33 K/ul 08/06/2017 Cbc With Differential Ord2 Bonner ABS# 0.6 K/ul 08/06/2017 Cbc With Differential Ord2 Eos ABS# 0.3 K/ul 08/06/2017 Cbc With Differential Ord2 Baso ABS# 0.1 K/ul 08/06/2017 Comp Metabolic Qkm094 NA 140 mEq/L 06/02/2017 Comp Metabolic Rlw057 K 3.8 mEq/L 06/02/2017 Comp Metabolic Hrm641 CL 102 mEq/L 06/02/2017 Comp Metabolic Aby571 CO2 30.0 mEq/L 06/02/2017 Comp Metabolic Vfr353 ANION GAP 12 06/02/2017 Comp Metabolic Elg461 GLUCOSE 100 mg/dL 06/02/2017 Comp Metabolic Guy654 Creat 1.1 mg/dL 06/02/2017 Comp Metabolic Raw882 eGFR 69 ml/min/1.73m2 06/02/2017 Comp Metabolic Ept176 BUN 15 mg/dL 06/02/2017 Comp Metabolic Opp608 B/C Ratio 13.4 Ratio 06/02/2017 Comp Metabolic Qzd686 CALCIUM 8.6 mg/dL 06/02/2017 Comp Metabolic Uas341 ALK PHOS 63 U/L 06/02/2017 Comp Metabolic Sew726 AST(SGOT) 17 U/L 06/02/2017 Comp Metabolic Fud804 ALT(SGPT) 12 U/L 06/02/2017 Comp Metabolic Zzf449 BILI T 0.5 mg/dL 06/02/2017 Comp Metabolic Ykq241 ALBUMIN 3.9 g/dL 06/02/2017 Comp Metabolic Enb287 TPRO 6.1 g/dL 06/02/2017 Comp Metabolic Kug976 GLOB 2.2 g/dL 06/02/2017 Comp Metabolic Hxr057 A/G Ratio 1.8 Ratio 06/02/2017 Comp Metabolic Lxa128 Osmo 280 mOsmo 06/02/2017 Vitamin D 25 Oh Pra6553 VITAMIN D, 25 HYDROXY 40.03 ng/mL Cbc [...] 93.0 fl 06/02/2017 Cbc With Differential Ord2 Bonner% 10.5 % 06/02/2017 Cbc With Differential Ord2 [...] 1.52 K/ul 06/02/2017 Cbc With Differential Ord2 Bonner ABS# 0.6 K/ul 06/02/2017 Cbc With Differential Ord2 Eos ABS# 0.2 K/ul 06/02/2017 Cbc With Differential Ord2 Baso ABS# 0.1 K/ul 06/02/2017 Testosterone Pbm436 Testo 198.4 ng/dL 04/29/2017 Vitamin D 25 Oh Jhz8583 VITAMIN D, 25 HYDROXY 29.25 ng/mL Lipid [...] cyanosis 03/20/2018 None Full Exam - General 1995 Constitutional general appearance Development: well developed 03/10/2018 None Full Exam - General 1994 Constitutional general appearance Development: appears stated age 0103/10/2018 None Full Exam - General 1994 Constitutional general appearance Hygiene/Attention to Grooming: good hygiene 03/10/2018 None Full Exam - General 1995 Eyes conjunctiva /eyelids Overall: conjunctiva clear 03/10/2018 None Full Exam - General 1995 Eyes conjunctiva /eyelids Overall: cornea clear 03/10/2018 None Full Exam - General 1994 Eyes conjunctiva /eyelids Overall: eyelids normal 03/10/2018 None Full Exam - General 1994 Eyes pupils and irises Overall: pupils equal, round, reactive to light and accomodation 03/10/2018 None Full Exam - General 1995 Ears/Nose/Throat lips/teeth/gingiva Overall: benign lips 03/10/2018 None Full Exam - General 1995 Ears/Nose/Throat lips/teeth/gingiva Overall: normal dentition 03/10/2018 None [...] dentition 07/14/2017 None Full Exam - General 1995 Ears/Nose/Throat [...] Procedure Codes Date THER/PROPH/DIAG INJ SC/IM CPT-4: 22218 04/13/2018 TRIAMCINOLONE ACET INJ NOS CPT-4: J3301 04/07/2018 TRIAMCINOLONE ACET INJ NOS CPT-4: J3301 04/03/2018 ROCEPHIN, PER 250 MG CPT-4: J0696 04/03/2018 THER/PROPH/DIAG INJ SC/IM CPT-4: 20782 03/20/2018 THER/PROPH/DIAG INJ SC/IM CPT-4: 02012 03/06/2018 THER/PROPH/DIAG INJ SC/IM CPT-4: 13595 02/19/2018 THER/PROPH/DIAG INJ SC/IM CPT-4: 51499 02/03/2018 THER/PROPH/DIAG INJ SC/IM CPT-4: 35370 01/07/2018 TRIAMCINOLONE ACET INJ NOS CPT-4: J3301 01/07/2018 ROCEPHIN, PER 250 MG CPT-4: J0696 01/07/2018 THER/PROPH/DIAG INJ SC/IM CPT-4: 45454 01/05/2018 THER/PROPH/DIAG INJ SC/IM CPT-4: 24010 12/15/2017 THER/PROPH/DIAG INJ SC/IM CPT-4: 55636 12/04/2017 PPPS, SUBSEQ VISIT CPT -4: G0439 11/27/2017 ADMIN INFLUENZA VIRUS VAC CPT-4: G0008 11/17/2017 FLU VAC NO PRSV 4 FATOU 3 YRS+ CPT-4: 06017 11/17/2017 THER/PROPH/DIAG INJ SC/IM CPT-4: 32090 11/17/2017 THER/PROPH/DIAG INJ SC/IM CPT-4: 92390 10/22/2017 THER/PROPH/DIAG INJ SC/IM CPT-4: 67917 10/06/2017 TRIAMCINOLONE ACET INJ NOS CPT-4: J3301 10/06/2017 THER/PROPH/DIAG INJ SC/IM CPT-4: 62416 09/23/2017 THER/PROPH/DIAG INJ SC/IM CPT-4: 83011 08/28/2017 THER/PROPH/DIAG INJ SC/IM CPT-4: 91493 08/12/2017 THER/PROPH/DIAG INJ SC/IM CPT-4: 79553 07/28/2017 THER/PROPH/DIAG INJ SC/IM CPT-4: 66618 07/14/2017 THER/PROPH/DIAG INJ SC/IM CPT-4: 15538 06/26/2017 THER/PROPH/DIAG INJ SC/IM CPT-4: 58596 06/09/2017 THER/PROPH/DIAG INJ SC/IM CPT-4: 38724 05/27/2017 THER/PROPH/DIAG INJ SC/IM CPT-4: 63525 05/13/2017 THER/PROPH/DIAG INJ SC/IM CPT-4: 77179 04/29/2017 Vital Signs Date Vital 04/09/2018 Blood Pressure 1: 120/70 Code : 8480-6 Heart Rate 1: 66 bpm Height: 5'10" SpO2: 98% Weight: 04/07/2018 Blood Pressure 1: 126/74 Code : 8480-6 BMI: 29.0 Code : 30873-8 Heart Rate 1 : 75 bpm Height: 5'10" SpO2: 98% Weight: 202 lbs 04/03/2018 Blood Pressure 1: 130/74 Code : 8480-6 BMI: 29.0 Code : 40788-6 Heart Rate 1 : 89 bpm Height: 5'10" SpO2: 98% Temperature: 37.4 (C) / 99.4 (F) Weight: 202 lbs 03/20/2018 Blood Pressure 1: 122/60 Code : 8480-6 Heart Rate 1: 76 bpm Height: 5'10" SpO2: 96% Weight: 03/10/2018 Blood Pressure 1: 120/70 Code : 8480-6 BMI: 29.0 Code : 40598-2 Heart Rate 1 : 82 bpm Height: 5'10" SpO2: 95% Weight: 202 lbs 01/07/2018 Blood Pressure 1: 126/66 Code : 8480-6 BMI: 30.1 Code : 09838-9 Heart Rate 1 : 75 bpm Height: 5'10" SpO2: 97% Temperature: 36.5 (C) / 97.7 (F) Weight: 210 lbs 12/22/2017 Blood Pressure 1: 124/70 Code : 8480-6 BMI: 29.7 Code : 48294-3 Heart Rate 1 : 84 bpm Height: 5'10" SpO2: 94% Weight: 207 lbs 12/15/2017 Blood Pressure 1: 122/82 Code : 8480-6 BMI: 30.0 Code : 90631-9 Heart Rate 1 : 82 bpm Height: 5'10" SpO2: 93% Weight: 209 lbs 11/27/2017 Blood Pressure 1: 132/68 Code : 8480-6 BMI: 29.3 Code : 84432-7 Heart Rate 1 : 71 bpm Height: 5'10" SpO2: 97% Waist Measure (cm): 97 cm Weight: 204 lbs 11/17/2017 Blood Pressure 1: 130/80 Code : 8480-6 BMI: 29.3 Code : 29352-5 Heart Rate 1 : 73 bpm Height: 5'10" SpO2: 99% Weight: 204 lbs 10/06/2017 Blood Pressure 1: 124/60 Code : 8480-6 BMI: 28.8 Code : 72273-8 Heart Rate 1 : 70 bpm Height: 5'10" SpO2: 98% Weight: 201 lbs 07/24/2017 Blood Pressure 1: 118/70 Code : 8480-6 BMI: 29.3 Code : 89515-0 Heart Rate 1 : 82 bpm Height: 5'10" SpO2: 96% Weight: 204 lbs 07/14/2017 Blood Pressure 1: 118/72 Code : 8480-6 BMI: 29.1 Code : 65062-5 Heart Rate 1 : 83 bpm Height: 5'10" SpO2: 98% Weight: 203 lbs 06/09/2017 Blood Pressure 1: 120/74 Code : 8480-6 BMI: 29.3 Code : 14265-5 Heart Rate 1 : 91 bpm Height: 5'10" SpO2: 99% Weight: 204 lbs 04/28/2017 Blood Pressure 1: 118/68 Code : 8480-6 BMI: 28.8 Code : 74673-4 Heart Rate 1 : 74 bpm Height: 5'10" SpO2: 96% Weight: 201 lbs 03/14/2017 Blood Pressure 1: 114/74 Code : 8480-6 BMI: 28.6 Code : 13184-7 Heart Rate 1 : 77 bpm Height: [...] data Encounters Encounter Performer Location Codes Date ( EST. PATIENT, LEVEL II Diagnosis: Other allergic rhinitis[ICD10: J30.89] Diagnosis: Acute recurrent maxillary sinusitis[ICD10: J01.01] Elise Hollis MD, [facility] CPT-4: 31820 04/09/2018 ([id number]) [id number] EST. PATIENT, LEVEL III Diagnosis: Low back pain[ICD10: M54.5] Diagnosis: Sciatica, left side[ICD10: M54.32] Elise Hollis MD, [facility] CPT-4: 05686 04/07/2018 ([id number]) [id number] EST. PATIENT, LEVEL III Diagnosis: Acute recurrent maxillary sinusitis[ICD10: J01.01] Diagnosis: Cough[ICD10: R05] Elise Hollis MD, [facility] CPT-4: 09277 04/03/2018 [id number] EST. 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 PATIENT, LEVEL III Diagnosis: Other malaise[ICD10: R53.81] Diagnosis: Acute laryngopharyngitis[ICD10: J06.0] Diagnosis: Other allergic rhinitis[ICD10: J30.89] Sapphire Hollis MD, [facility] CPT-4: 07522 01/07/2018 ([id number]) 83038 EST. PATIENT, LEVEL III Diagnosis: Spinal stenosis, lumbosacral region[ICD10: M48.07] Diagnosis: Spinal stenosis, cervical region[ICD10: M48.02] Elise Hollis MD, [facility] CPT-4: 54306 12/22/2017 ([id number]) 94578 EST. 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 PATIENT, LEVEL III Diagnosis: Mixed hyperlipidemia[ICD10: E78.2] Diagnosis: Other insomnia[ICD10: G47.09] Leora Hollis MD, [facility] CPT- 4: 09642 11/17/2017 [id number] EST. PATIENT, LEVEL III Diagnosis: Acute laryngopharyngitis[ICD10: J06.0] Diagnosis: Other allergic rhinitis[ICD10: J30.89] Sapphire Hollis MD, [facility] CPT-4: 76584 10/06/2017 [id number] EST. PATIENT, LEVEL III Diagnosis: Pain in left shoulder[ICD10: M25.512] Sapphire Hollis MD, [facility] CPT-4: 66064 07/24/2017 ([id number]) 02345 EST. 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] Diagnosis: Impacted cerumen, bilateral[ICD10: H61.23] 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 04/09/2018 Appointment: Elise Castillo WPtel: [phone] (15 min) Moderate 04/09/2018 Appointment: Elise Castillo WPtel: [phone] (15 min) Moderate 04/09/2018 Patient Education: Patient Medication Summary Completed 04/09/2018 Visit Plan: Sciatica-left- kenalog injection today in the office- exercises discussed with the patient, pt to continue with antiinflammatories. Pt is to call if the symptoms do not improve or if they worsen. 04/07/2018 Appointment: Elise Castillo WPtel: [address] [place], [place] [phone] (15 min) Moderate 04/07/2018 Patient Education: Patient Medication Summary Completed 04/07/2018 Patient Education: Back Pain Completed 04/07/2018 Visit Plan: Sinusitis - Pt has acute infection - pain in face, maxillary region, Pt informed to use decongestant, RX given to patient, sinus rinses also recommended. Call if symptoms do not show improvement. 04/03/2018 Appointment: Elise Castillo WPtel: [address] [place], [place] [phone] [place] (15 min) Moderate 04/03/2018 Patient Education: [...] Dr Back 03/20/2018 Appointment: Elise Castillo WPtel: [phone] [phone] [place] (15 min) Moderate 03/20/2018 Appointment: (15 min) Moderate 03/20/2018 Patient Education: Patient Medication Summary Completed 03/20/2018 Visit Plan: Spinal stenosis with back pain - refilled hydrocodone- keep appt with [facility] for treatment of stenosis of arteries, then pt most-likely to have surgical intervention of spine. PAD - pt will need surgical intervention with stenting. Testicular hypofunction - continue with testosterone. 03/10/2018 [phone] [place] (15 min) Moderate 03/10/2018 Patient Education: Patient Medication Summary Completed 03/10/2018 Patient Education: Back Pain Completed 03/10/2018 Patient Education: Cholesterol Management Completed 03/10/2018 Appointment: Leora Hollis WPtel: [phone] [facility] [place] (15 min) Moderate 03/09/2018 Appointment: [...] allergy spray. 01/07/2018 Appointment: Sapphire Oneil WPtel: [facility] (15 min) Moderate 01/07/2018 Patient Education: Patient [...] Appointment: Elise Castillo WPtel: [phone] (15 min) Moderate 12/22/2017 Patient Education: Patient Medication Summary Completed 12/22/2017 Visit Plan: Neck and low back pain -will schedule MRI lumbar and cervical spine for further evaluation and proceed as indicated- patient verbalized understanding of plan. 12/15/2017 Appointment: Elise Castillo WPtel: [phone] (15 min) Moderate 12/15/2017 Patient Education: Patient Medication Summary Completed 12/15/2017 Patient Education: Back Pain Completed 12/15/2017 Care Plan: MRI LUMBAR SPINE W/O DYE LOINC : 63176-3 Pending 12/15/2017 Care Plan: MRI NECK SPINE W/O DYE LOINC : 39513-3 Pending 12/15/2017 Appointment: Injection 12/04/2017 Patient Education: [...] surrogate. 11/27/2017 Appointment[facility] Oneil [phone] [facility] - Annual Wellness Visit 11/27/2017 [...] sleep 11/17/2017 Appointment: [phone] [facility] (15 min) Moderate 11/17/2017 Patient Education: Patient [...] spray. 10/06/2017 Appointment: Leora Hollis WPtel: [phone] [facility] (15 min) Moderate 10/06/2017 Appointment: Sapphire Oneil WPtel: [phone] [facility] (15 min) Moderate 10/06/2017 Patient Education: Patient [...] plan. 07/24/2017 Appointment: Sapphire Oneil WPtel: [phone] [facility] (30 min) Complex 07/24/2017 Patient Education: Patient [...] to medications. 07/14/2017 Appointment: [facility] Holl[phone] [facility] (15 min) Moderate 07/14/2017 Patient Education: Patient Medication Summary Completed 07/14/2017 App[facility]ment: [facility] [phone] [facility] (15 min) Moderate 07/10/2017 Appointment: Injection 06/26/2017 [...] at night 06/09/2017 Appointment: [phone] [facility] [place] (30 min) Complex 06/09/2017 Patient Education: [...] 15 04/28/2017 Appointment: [facility] Holl[phone] [facility] (30 min) Complex 04/28/2017 Patient Education: [...] removal 03/14/2017 Appointment: [facility] Holl[facility]el[facility] [phone] [facility] [facility] 03/14/2017 Patient Education: Patient [...] on Friday morning for ear wax removal mupirocin ointment to [...] tear -schedule appt with Dr Back . Hypogonadism - testosterone shot to be [...] if symptoms do not resolve completely. . URI - Pt advised to increase [...] pain - refilled hydrocodone- keep appt with [facility] [employer]acy In[facility] for treatment of stenosis of arteries, then pt most- likely to have surgical intervention of spine. PAD - pt will need surgical intervention with stenting. Testicular hypofunction - continue with testosterone. REFER FOR PHYSICAL THERAPY AT [facility] -HE HAS A PT HE HAS SEEN THERE BEFORE KEEP APPT WITH DR STEWARD . Cervical and lumbar stenosis -refer for PT to evaluate and treat -follow up with DR Steward as scheduled -refill hydrocodone for prn use only -discussed with patient that he is to use it for breakthrough pain only -patient verbalized understanding of plan. mupirocin ointment to lesion on right cheek [...] spray in the nasal steroid allergy spray. rocephin and kenalog augmentin to dillons call [...] any change in the current treatment plan. CALL FRIDAY IF NOT BETTER AND WE CAN SEND IN A SHORT COURSE OF PREDNISONE . Sciatica-left- kenalog injection today in the office- exercises discussed with the patient, pt to continue with antiinflammatories. Pt is to call if the symptoms do not improve or if they worsen.
--- OUTSIDE RECORDS SUMMARY | 2018-06-12 08:52 | XMS REPORT | CCD ---
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 Name Role Phone PP Unavailable CCM Unavailable Summary Purpose Interface Exchange Insurance Providers Payer name Policy type / Coverage type Covered constitution party ID Effective Begin Date Effective End Date WPS Medicare Part B Medicare Part B [id number] 2017 Unknown [facility] Medicare Part B [id number] 2017 Unknown Family history Father Diagnosis Age At Onset Heart Attack Unknown Social History Social History Element Codes Description Effective Dates Marital status Unknown 03/14/2017 Number of children Unknown 2 03/14/[address]: 0099057 Former smoker Quit 11/03/00; smoke 1/2 pack/day x15 years 03/14/[address]: 681210363 Never drinks alcohol 03/14/2017 Allergies, Adverse Reactions, [...] Active 04/28/2017 Unknown 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 [...] D75.1 04/28/2017 Active 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 ICD-10: I25.10 03/14/2017 Active Chronic pain syndrome ICD-9: 338.4 ICD-10: G89.4 03/14/2017 Active Personal history of other diseases of the circulatory system ICD-9: V12.59 ICD-10: Z86.79 03/14/2017 Active Presbycusis, 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 03/14/2017 Active Medications Medication Codes Instructions Start Date Stop Date Status Fill Instructions hydrocodone 5 mg-acetaminophen 325 mg tablet RxNorm: 640659 1-2 Tablet(s) PO Q6 PRN MAY FILL 04/1904/16/2018 05/15/2018 Active Augmentin 875 mg-125 mg tablet RxNorm: 543328 1 Tablet(s) PO BID 04/15/2018 04/28/2018 Active Augmentin 875 mg-125 mg tablet RxNorm: 471096 1 Tablet(s) PO BID 04/15/2018 04/14/2018 Inactive testosterone cypionate 200 mg/mL intramuscular kit RxNorm: 485508 1/2 Milliliter(s ) IM [id number] 04/13/2018 10/09/2018 Active testosterone cypionate 200 mg/mL intramuscular oil RxNorm: 9976598 Milliliter(s) IM 04/13/2018 04/13/2018 Inactive prednisone 20 mg tablet RxNorm: 884096 1 Tablet(s) PO BID 04/0904/13/2018 Inactive Augmentin 875 mg-125 mg tablet RxNorm: 479078 1 Tablet(s) PO BID 04/09/2018 04/11/2018 Inactive Kenalog 40 mg/mL suspension for injection RxNorm: 5140268 1 Milliliter(s) Inj 04/07/2018 04/07/2018 Inactive Kenalog 40 mg/mL suspension for injection RxNorm: 8284640 Milliliter(s) Inj 04/03/2018 04/03/2018 Inactive Augmentin 875 mg-125 mg tablet RxNorm: 478453 1 Tablet(s) PO BID 04/03/2018 04/08/2018 Inactive ceftriaxone 500 mg solution for injection RxNorm: 5320609 Inj 04/03/2018 04/03/2018 Inactive atorvastatin 40 mg tablet RxNorm: 469009 TAKE ONE TABLET BY MOUTH DAILY 03/20/2018 09/10/2019 Active mupirocin 2 % topical ointment RxNorm: 872904 1 Application TOP BID 03/20/2018 03/26/2018 Inactive hydrocodone 5 mg-acetaminophen 325 mg tablet RxNorm: 450938 1-2 Tablet(s) PO Q6 PRN 03/20/2018 04/15/2018 Inactive Keflex 500 mg capsule RxNorm: 476546 1 Capsule(s) PO TID 201803/26/2018 Inactive zolpidem 5 mg tablet RxNorm: 785889 Tablet(s) TAKE ONE TABLET BY MOUTH EVERY NIGHT AT BEDTIME NEEDED 03/18/2018 Active clopidogrel 75 mg tablet RxNorm: 988203 1 Tablet(s) PO daily 04/15/2018 Inactive furosemide 40 mg tablet RxNorm: 780142 TAKE ONE TABLET BY MOUTH DAILY 03/17/2018 09/12/2018 Active testosterone cypionate 200 mg/mL intramuscular oil RxNorm: 8590550 Milliliter(s) IM 03/06/2018 03/06/2018 Inactive testosterone cypionate 200 mg/mL intramuscular oil RxNorm: 5173479 Milliliter(s) IM 02/19/2018 02/19/2018 Inactive hydrocodone 5 mg-acetaminophen 325 mg tablet RxNorm: 304472 1-2 Tablet(s) PO Q6 PRN 02/18/2018 03/09/2018 Inactive meloxicam 15 mg tablet RxNorm: 787066 TAKE ONE TABLET BY MOUTH DAILY 02/13/2018 08/11/2018 Active zolpidem 5 mg tablet RxNorm: 885116 TAKE ONE TABLET BY MOUTH EVERY NIGHT AT BEDTIME NEEDED 02/13/2018 04/08/2018 Inactive testosterone cypionate 200 mg/mL intramuscular kit RxNorm: 236403 1/2 Milliliter(s ) IM [id number] 02/03/2018 04/12/2018 Inactive testosterone cypionate 200 mg/mL intramuscular oil RxNorm: 309573 Milliliter(s) IM 02/03/2018 02/03/2018 Inactive cefdinir 300 mg capsule RxNorm: 571769 1 Capsule(s) PO BID 01/18/2018 Inactive prednisone 20 mg tablet RxNorm: 409993 2 Tablet(s) PO QAM 01/0901/08/2018 Inactive cefdinir 300 mg capsule RxNorm: 093186 1 Capsule(s) PO BID 01/08/2018 Inactive prednisone 20 mg tablet RxNorm: 410995 2 Tablet(s) PO QAM 01/0904/08/2018 Inactive Zithromax Z-Timothy 250 mg tablet RxNorm: 352797 1 Tablet(s) PO UD 01/07/2018 04/08/2018 Inactive Kenalog 40 mg/mL suspension for injection RxNorm: 0084013 Milliliter(s) Inj 01/07/2018 01/07/2018 Inactive ceftriaxone 500 mg solution for injection RxNorm: 0572641 Inj 01/07/2018 01/07/2018 Inactive testosterone cypionate 200 mg/mL intramuscular oil RxNorm: 747308 1/2 Milliliter(s ) IM 01/05/2018 01/05/2018 Inactive hydrocodone 5 mg-acetaminophen 325 mg tablet RxNorm: 980632 1-2 Tablet(s) PO Q6 PRN 12/22/2017 02/17/2018 Inactive zolpidem 5 mg tablet RxNorm: 310220 1 Tablet(s) PO 30 min before QHS 12/15/2017 02/12/2018 Inactive testosterone cypionate 200 mg/mL intramuscular oil RxNorm: 463468 Milliliter(s) IM 12/15/2017 12/15/2017 Inactive testosterone cypionate 200 mg/mL intramuscular oil RxNorm: 596875 1/2 Milliliter(s ) IM 12/04/2017 12/04/2017 Inactive testosterone cypionate 200 mg/mL intramuscular oil RxNorm: 001870 1/2 Milliliter(s ) IM 11/17/2017 11/17/2017 Inactive potassium chloride ER 10 mEq capsule,extended release RxNorm: 539782 TAKE ONE CAPSULE BY MOUTH DAILY 11/11/20172018 Inactive testosterone cypionate 200 mg/mL intramuscular oil RxNorm: 658710 Milliliter(s) IM 10/22/2017 10/22/2017 Inactive zolpidem 5 mg tablet RxNorm: 623772 1 Tablet(s) PO 30 min before QHS 10/15/2017 10/14/2017 Inactive zolpidem 5 mg tablet RxNorm: 242620 1 Tablet(s) PO 30 min before QHS 10/15/2017 12/13/2017 Inactive Zithromax Z-Timothy 250 mg tablet RxNorm: 604439 1 Tablet(s) PO UD 10/07/2017 11/16/2017 Inactive testosterone cypionate 200 mg/mL intramuscular oil RxNorm: 407709 Milliliter(s) IM 10/06/2017 10/06/2017 Inactive Kenalog 40 mg/mL suspension for injection RxNorm: 9556998 Milliliter(s) Inj 10/06/2017 10/06/2017 Inactive Zithromax Z-Timothy 250 mg tablet RxNorm: 153582 1 Tablet(s) PO UD 10/06/2017 10/06/2017 Inactive testosterone cypionate 200 mg/mL intramuscular oil RxNorm: 158260 Milliliter(s) IM 09/23/2017 09/23/2017 Inactive testosterone cypionate 200 mg/mL intramuscular kit RxNorm: 522864 1/2 Milliliter(s ) IM [id number] 08/28/2017 02/02/2018 Inactive meloxicam 15 mg tablet RxNorm: 195360 TAKE ONE TABLET BY MOUTH DAILY 08/28/2017 02/12/2018 Inactive testosterone cypionate 200 mg/mL intramuscular oil RxNorm: 064510 Milliliter(s) IM 08/28/2017 08/28/2017 Inactive testosterone cypionate 200 mg/mL intramuscular oil RxNorm: 765554 1/2 Milliliter(s ) IM 08/12/2017 08/12/2017 Inactive meloxicam 15 mg tablet RxNorm: 586168 1 Tablet(s) PO daily 08/201708/27/2017 Inactive atorvastatin 40 mg tablet RxNorm: 677805 TAKE ONE TABLET BY MOUTH DAILY 07/30/2017 02/24/2018 Inactive furosemide 40 mg tablet RxNorm: 092341 TAKE ONE TABLET BY MOUTH DAILY 07/30/2017 02/24/2018 Inactive testosterone cypionate 200 mg/mL intramuscular oil RxNorm: 580860 1/2 Milliliter(s ) IM 07/28/2017 07/28/2017 Inactive testosterone cypionate 200 mg/mL intramuscular oil RxNorm: 330131 1/2 Milliliter(s ) IM 07/14/2017 07/14/2017 Inactive testosterone cypionate 200 mg/mL intramuscular oil RxNorm: 061573 1/2 Milliliter(s ) IM 06/26/2017 06/26/2017 Inactive hydrocodone 5 mg-acetaminophen 325 mg tablet RxNorm: 413127 1 Tablet(s) PO QHS and 1 tab PO daily PRN pain 06/09/2017 Inactive hydrocodone 5 mg-acetaminophen 325 mg tablet RxNorm: 227745 1 Tablet(s) PO daily 06/09/2017 06/18/2017 Inactive testosterone cypionate 200 mg/mL intramuscular oil RxNorm: 495214 1/2 Milliliter(s ) IM 06/09/2017 06/09/2017 Inactive testosterone cypionate 200 mg/mL intramuscular oil RxNorm: 088505 Milliliter(s) IM 05/27/2017 05/27/2017 Inactive testosterone cypionate 200 mg/mL intramuscular oil RxNorm: 202752 Milliliter(s) IM 05/13/2017 05/13/2017 Inactive potassium chloride ER 10 mEq capsule,extended release RxNorm: 775571 1 Capsule(s) PO daily 05/07/2017 11/02/2017 Inactive Vitamin D2 50,000 unit capsule RxNorm: 547991 1 Capsule(s) PO QW 05/06/2017 05/05/2017 Inactive take with OTC vitamin d 2,000 units QD testosterone cypionate 200 mg/mL intramuscular kit RxNorm: 315826 1/2 kit IM 2 x month 05/06/2017 08/27/2017 Inactive Vitamin D2 50,000 unit capsule RxNorm: 541743 1 Capsule(s) PO QW 05/06/2017 08/03/2017 Inactive take with OTC vitamin d 2,000 units QD testosterone cypionate 200 mg/mL intramuscular oil RxNorm: 290624 1/2 Milliliter(s ) IM 04/29/2017 04/29/2017 Inactive fluorouracil 5 % topical cream RxNorm: 921050 1 Application TOP BID 04/28/2017 05/07/2017 Inactive testosterone cypionate 200 mg/mL intramuscular kit RxNorm: 667673 1/2 IM 2 x month 04/28/2017 05/05/2017 Inactive Pamelor 10 mg capsule RxNorm: 185565 1 Capsule(s) PO daily No Start Date Active gabapentin 300 mg capsule RxNorm: 008493 6 Capsule(s) PO daily No Start Date Active cyclobenzaprine 5 mg tablet RxNorm: 085837 1 Tablet(s) PO as needed No Start Date Active diclofenac 1 % topical gel RxNorm: 017523 1 Gram(s) TOP as needed No Start Date Active meloxicam 15 mg tablet RxNorm: 999976 1 Tablet(s) PO daily No Start Date 07/30/2017 Inactive potassium chloride ER 10 mEq tablet,extended release RxNorm: 991626 1 Tablet(s) PO daily No Start Date 05/06/2017 Inactive hydrocodone 5 mg-acetaminophen 325 mg tablet RxNorm: 151157 1 Tablet(s) PO daily No Start Date 06/08/2017 Inactive furosemide 40 mg tablet RxNorm: 973367 1 Tablet(s) PO daily No Start Date 07/29/2017 Inactive atorvastatin 40 mg tablet RxNorm: 848144 1 Tablet(s) PO QHS No Start Date 07/29/2017 Inactive clopidogrel 75 mg tablet RxNorm: 794631 1 Tablet(s) PO daily No Start Date 03/16/2018 Inactive Medication Administered Medication Codes Instructions Start Date Status testosterone cypionate 200 mg/mL intramuscular oil RxNorm: 6060205 Milliliter 04/13/2018 No longer Active Kenalog 40 mg/mL suspension for injection RxNorm: 5757043 1Milliliter 04/07/2018 No longer Active ceftriaxone 500 mg solution for injection RxNorm: 3041545 04/03/2018 No longer Active Kenalog 40 mg/mL suspension for injection RxNorm: 6076147 Milliliter 04/03/2018 No longer Active testosterone cypionate 200 mg/mL intramuscular oil RxNorm: 1207706 Milliliter 03/06/2018 No longer Active testosterone cypionate 200 mg/mL intramuscular oil RxNorm: 0362505 Milliliter 02/19/2018 No longer Active testosterone cypionate 200 mg/mL intramuscular oil RxNorm: 461929 Milliliter 02/03/2018 No longer Active Kenalog 40 mg/mL suspension for injection RxNorm: 6712457 Milliliter 01/07/2018 No longer Active ceftriaxone 500 mg solution for injection RxNorm: 8976043 01/07/2018 No longer Active testosterone cypionate 200 mg/mL intramuscular oil RxNorm: 832314 /2Milliliter 01/05/2018 No longer Active testosterone cypionate 200 mg/mL intramuscular oil RxNorm: 974747 Milliliter 12/15/2017 No longer Active testosterone cypionate 200 mg/mL intramuscular oil RxNorm: 788339 /2Milliliter 12/04/2017 No longer Active testosterone cypionate 200 mg/mL intramuscular oil RxNorm: 796894 /2Milliliter 11/17/2017 No longer Active testosterone cypionate 200 mg/mL intramuscular oil RxNorm: 813415 Milliliter 10/22/2017 No longer Active testosterone cypionate 200 mg/mL intramuscular oil RxNorm: 566527 Milliliter 10/06/2017 No longer Active Kenalog 40 mg/mL suspension for injection RxNorm: 1393122 Milliliter 10/06/2017 No longer Active testosterone cypionate 200 mg/mL intramuscular oil RxNorm: 114072 Milliliter 09/23/2017 No longer Active testosterone cypionate 200 mg/mL intramuscular oil RxNorm: 048789 Milliliter 08/28/2017 No longer Active testosterone cypionate 200 mg/mL intramuscular oil RxNorm: 077924 /2Milliliter 08/12/2017 No longer Active testosterone cypionate 200 mg/mL intramuscular oil RxNorm: 054639 /2Milliliter 07/28/2017 No longer Active testosterone cypionate 200 mg/mL intramuscular oil RxNorm: 790306 /2Milliliter 07/14/2017 No longer Active testosterone cypionate 200 mg/mL intramuscular oil RxNorm: 208302 /2Milliliter 06/26/2017 No longer Active testosterone cypionate 200 mg/mL intramuscular oil RxNorm: 806688 1/2Milliliter 06/09/2017 No longer Active testosterone cypionate 200 mg/mL intramuscular oil RxNorm: 301063 Milliliter 05/27/2017 No longer Active testosterone cypionate 200 mg/mL intramuscular oil RxNorm: 582942 Milliliter 05/13/2017 No longer Active testosterone cypionate 200 mg/mL intramuscular oil RxNorm: 127577 1/2Milliliter 04/29/2017 No longer Active Immunizations Vaccine [...] ICD-9: 380.4 03/17/2017 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 [...] Code Item Item Code Result Date Testosterone Zlg041 Testo 375.1 ng/dL 03/02/2018 Cbc With Differential [...] 25.6 pg 03/02/2018 Cbc With Differential Ord2 [place]% 7.9 % 03/02/2018 Cbc With Differential Ord2 [...] 1.41 K/ul 03/02/2018 Cbc With Differential Ord2 [place] ABS# 0.8 K/ul 03/02/2018 Cbc With Differential Ord2 Eos ABS# 0.2 K/ul 03/02/2018 Cbc With Differential Ord2 Baso ABS# 0.1 K/ul 03/02/2018 Influenza A+B Tja014 Influ A+B Negative 01/08/2018 C A/B FLU [id number] Influenza A Scr TNP:Improper Specimen 01/07 C A/B FLU [id number] Influenza B Scr TNP:Improper Specimen 01/07 C A/B FLU [id number] IC OK? TNP:Improper Specimen 01/07/2018 C A/B FLU [id number] Influenza Intrp B AG: PRID:PT:NOSE:NOM:IF TNP:Improper Specimen 01/07/2018 Hepatic Chl519 ALBUMIN 3.7 g/dL 08/06/2017 Hepatic Vmc465 TPRO 5.9 g/dL 08/06/2017 Hepatic Rfk529 GLOB 2.2 g/dL 08/06/2017 Hepatic Ola341 A/G Ratio 1.7 Ratio 08/06/2017 Hepatic Rtg979 ALK PHOS 46 U/L 08/06/2017 Hepatic Xsz053 ALT(SGPT) 9 U/L 08/06/2017 Hepatic Dff212 AST(SGOT) 13 U/L 08/06/2017 Hepatic Kpe548 BILI T 0.6 mg/dL 08/06/2017 Hepatic Dod838 BILI D 0.2 mg/dL 08/06/2017 Hepatic Plh493 BILI I 0.4 mg/dL 08/06/2017 Testosterone Grz542 Testo 474.5 ng/dL 08/06/2017 Cbc With Differential [...] 28.5 pg 08/06/2017 Cbc With Differential Ord2 [place]% 11.2 % 08/06/2017 Cbc With Differential Ord2 [...] 1.33 K/ul 08/06/2017 Cbc With Differential Ord2 [place] ABS# 0.6 K/ul 08/06/2017 Cbc With Differential Ord2 Eos ABS# 0.3 K/ul 08/06/2017 Cbc With Differential Ord2 Baso ABS# 0.1 K/ul 08/06/2017 Comp Metabolic Qrx732 NA 140 mEq/L 06/02/2017 Comp Metabolic Hho478 K 3.8 mEq/L 06/02/2017 Comp Metabolic Bwf893 CL 102 mEq/L 06/02/2017 Comp Metabolic Nvi392 CO2 30.0 mEq/L 06/02/2017 Comp Metabolic Ste235 ANION GAP 12 06/02/2017 Comp Metabolic Tyq340 GLUCOSE 100 mg/dL 06/02/2017 Comp Metabolic Zwe291 Creat 1.1 mg/dL 06/02/2017 Comp Metabolic Nhl657 eGFR 69 ml/min/1.73m2 06/02/2017 Comp Metabolic Dyh558 BUN 15 mg/dL 06/02/2017 Comp Metabolic Wvq104 B/C Ratio 13.4 Ratio 06/02/2017 Comp Metabolic Qpn196 CALCIUM 8.6 mg/dL 06/02/2017 Comp Metabolic Mjy805 ALK PHOS 63 U/L 06/02/2017 Comp Metabolic Zcr834 AST(SGOT) 17 U/L 06/02/2017 Comp Metabolic Tcx228 ALT(SGPT) 12 U/L 06/02/2017 Comp Metabolic Mos140 BILI T 0.5 mg/dL 06/02/2017 Comp Metabolic Ykt763 ALBUMIN 3.9 g/dL 06/02/2017 Comp Metabolic Hxd750 TPRO 6.1 g/dL 06/02/2017 Comp Metabolic Yea918 GLOB 2.2 g/dL 06/02/2017 Comp Metabolic Lqg546 A/G Ratio 1.8 Ratio 06/02/2017 Comp Metabolic Bby401 Osmo 280 mOsmo 06/02/2017 Vitamin D 25 Oh Aft0609 VITAMIN D, 25 HYDROXY 40.03 ng/mL Cbc [...] 93.0 fl 06/02/2017 Cbc With Differential Ord2 [place]% 10.5 % 06/02/2017 Cbc With Differential Ord2 [...] 1.52 K/ul 06/02/2017 Cbc With Differential Ord2 [place] ABS# 0.6 K/ul 06/02/2017 Cbc With Differential Ord2 Eos ABS# 0.2 K/ul 06/02/2017 Cbc With Differential Ord2 Baso ABS# 0.1 K/ul 06/02/2017 Testosterone Kej619 Testo 198.4 ng/dL 04/29/2017 Vitamin D 25 Oh Erk6647 VITAMIN D, 25 HYDROXY 29.25 ng/mL Lipid [...] Procedure Codes Date THER/PROPH/DIAG INJ SC/IM CPT-4: 87171 04/13/2018 TRIAMCINOLONE ACET INJ NOS CPT-4: J3301 04/07/2018 TRIAMCINOLONE ACET INJ NOS CPT-4: J3301 04/03/2018 ROCEPHIN, PER 250 MG CPT-4: J0696 04/03/2018 THER/PROPH/DIAG INJ SC/IM CPT-4: 33655 03/20/2018 THER/PROPH/DIAG INJ SC/IM CPT-4: 84728 03/06/2018 THER/PROPH/DIAG INJ SC/IM CPT-4: 67102 02/19/2018 THER/PROPH/DIAG INJ SC/IM CPT-4: 39257 02/03/2018 THER/PROPH/DIAG INJ SC/IM CPT-4: 56506 01/07/2018 TRIAMCINOLONE ACET INJ NOS CPT-4: J3301 01/07/2018 ROCEPHIN, PER 250 MG CPT-4: J0696 01/07/2018 THER/PROPH/DIAG INJ SC/IM CPT-4: 80638 01/05/2018 THER/PROPH/DIAG INJ SC/IM CPT-4: 63292 12/15/2017 THER/PROPH/DIAG INJ SC/IM CPT-4: 79402 12/04/2017 PPPS, SUBSEQ VISIT CPT -4: G0439 11/27/2017 ADMIN INFLUENZA VIRUS VAC CPT-4: G0008 11/17/2017 FLU VAC NO PRSV 4 FATOU 3 YRS+ CPT-4: 71099 11/17/2017 THER/PROPH/DIAG INJ SC/IM CPT-4: 28727 11/17/2017 THER/PROPH/DIAG INJ SC/IM CPT-4: 87709 10/22/2017 THER/PROPH/DIAG INJ SC/IM CPT-4: 14158 10/06/2017 TRIAMCINOLONE ACET INJ NOS CPT-4: J3301 10/06/2017 THER/PROPH/DIAG INJ SC/IM CPT-4: 96083 09/23/2017 THER/PROPH/DIAG INJ SC/IM CPT-4: 50177 08/28/2017 THER/PROPH/DIAG INJ SC/IM CPT-4: 57288 08/12/2017 THER/PROPH/DIAG INJ SC/IM CPT-4: 81291 07/28/2017 THER/PROPH/DIAG INJ SC/IM CPT-4: 79046 07/14/2017 THER/PROPH/DIAG INJ SC/IM CPT-4: 96819 06/26/2017 THER/PROPH/DIAG INJ SC/IM CPT-4: 06498 06/09/2017 THER/PROPH/DIAG INJ SC/IM CPT-4: 51440 05/27/2017 THER/PROPH/DIAG INJ SC/IM CPT-4: 24498 05/13/2017 THER/PROPH/DIAG INJ SC/IM CPT-4: 14629 04/29/2017 Vital Signs Date Vital 04/09/2018 Blood Pressure 1: 120/70 Code : 8480-6 Heart Rate 1: 66 bpm Height: 5'10" SpO2: 98% Weight: 04/07/2018 Blood Pressure 1: 126/74 Code : 8480-6 BMI: 29.0 Code : 72685-6 Heart Rate 1 : 75 bpm Height: 5'10" SpO2: 98% Weight: 202 lbs 04/03/2018 Blood Pressure 1: 130/74 Code : 8480-6 BMI: 29.0 Code : 11545-5 Heart Rate 1 : 89 bpm Height: 5'10" SpO2: 98% Temperature: 37.4 (C) / 99.4 (F) Weight: 202 lbs 03/20/2018 Blood Pressure 1: 122/60 Code : 8480-6 Heart Rate 1: 76 bpm Height: 5'10" SpO2: 96% Weight: 03/10/2018 Blood Pressure 1: 120/70 Code : 8480-6 BMI: 29.0 Code : 28842-6 Heart Rate 1 : 82 bpm Height: 5'10" SpO2: 95% Weight: 202 lbs 01/07/2018 Blood Pressure 1: 126/66 Code : 8480-6 BMI: 30.1 Code : 67643-1 Heart Rate 1 : 75 bpm Height: 5'10" SpO2: 97% Temperature: 36.5 (C) / 97.7 (F) Weight: 210 lbs 12/22/2017 Blood Pressure 1: 124/70 Code : 8480-6 BMI: 29.7 Code : 56983-4 Heart Rate 1 : 84 bpm Height: 5'10" SpO2: 94% Weight: 207 lbs 12/15/2017 Blood Pressure 1: 122/82 Code : 8480-6 BMI: 30.0 Code : 53456-9 Heart Rate 1 : 82 bpm Height: 5'10" SpO2: 93% Weight: 209 lbs 11/27/2017 Blood Pressure 1: 132/68 Code : 8480-6 BMI: 29.3 Code : 20944-6 Heart Rate 1 : 71 bpm Height: 5'10" SpO2: 97% Waist Measure (cm): 97 cm Weight: 204 lbs 11/17/2017 Blood Pressure 1: 130/80 Code : 8480-6 BMI: 29.3 Code : 10875-8 Heart Rate 1 : 73 bpm Height: 5'10" SpO2: 99% Weight: 204 lbs 10/06/2017 Blood Pressure 1: 124/60 Code : 8480-6 BMI: 28.8 Code : 15273-0 Heart Rate 1 : 70 bpm Height: 5'10" SpO2: 98% Weight: 201 lbs 07/24/2017 Blood Pressure 1: 118/70 Code : 8480-6 BMI: 29.3 Code : 48610-9 Heart Rate 1 : 82 bpm Height: 5'10" SpO2: 96% Weight: 204 lbs 07/14/2017 Blood Pressure 1: 118/72 Code : 8480-6 BMI: 29.1 Code : 03865-4 Heart Rate 1 : 83 bpm Height: 5'10" SpO2: 98% Weight: 203 lbs 06/09/2017 Blood Pressure 1: 120/74 Code : 8480-6 BMI: 29.3 Code : 94701-8 Heart Rate 1 : 91 bpm Height: 5'10" SpO2: 99% Weight: 204 lbs 04/28/2017 Blood Pressure 1: 118/68 Code : 8480-6 BMI: 28.8 Code : 58931-2 Heart Rate 1 : 74 bpm Height: 5'10" SpO2: 96% Weight: 201 lbs 03/14/2017 Blood Pressure 1: 114/74 Code : 8480-6 BMI: 28.6 Code : 33866-2 Heart Rate 1 : 77 bpm Height: [...] recurrent maxillary sinusitis[ICD10: J01.01] Elise Hollis MD, [facility] CPT-4: 38512 04/09/2018 ([id number]) 82369 EST. PATIENT, LEVEL III Diagnosis: Low back pain[ICD10: M54.5] Diagnosis: Sciatica, left side[ICD10: M54.32] Elise Hollis MD, [facility] CPT-4: 64241 04/07/2018 ([id number]) 12367 EST. PATIENT, LEVEL III Diagnosis: Acute recurrent maxillary sinusitis[ICD10: J01.01] Diagnosis: Cough[ICD10: R05] Elise Hollis MD, [facility] CPT-4: 23504 04/03/2018 [id number] EST. 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 PATIENT, LEVEL III Diagnosis: Other malaise[ICD10: R53.81] Diagnosis: Acute laryngopharyngitis[ICD10: J06.0] Diagnosis: Other allergic rhinitis[ICD10: J30.89] Sapphire Hollis MD, [facility] CPT-4: 59132 01/07/2018 ([id number]) [id number] EST. PATIENT, LEVEL III Diagnosis: Spinal stenosis, lumbosacral region[ICD10: M48.07] Diagnosis: Spinal stenosis, cervical region[ICD10: M48.02] Elise Hollis MD, [facility] CPT-4: 63136 12/22/2017 ([id number]) [id number] EST. 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 PATIENT, LEVEL III Diagnosis: Mixed hyperlipidemia[ICD10: E78.2] Diagnosis: Other insomnia[ICD10: G47.09] Leora Hollis MD, [facility] CPT- 4: 47881 11/17/2017 [id number] EST. PATIENT, LEVEL III Diagnosis: Acute laryngopharyngitis[ICD10: J06.0] Diagnosis: Other allergic rhinitis[ICD10: J30.89] Sapphire Hollis MD, [facility] CPT-4: 21451 10/06/2017 [id number] EST. PATIENT, LEVEL III Diagnosis: Pain in left shoulder[ICD10: M25.512] Sapphire Hollis MD, [facility] CPT-4: 98443 07/24/2017 ([id number]) 38293 EST. 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] Leora Hollis MD, [facility] CPT-4: 08199 04/28/2017 ([id number]) Miscellaneous no charge Diagnosis: Impacted cerumen, bilateral[ICD10: H61.23] Leora Hollis MD, [facility] CPT-4: 55759 03/17/2017 ([id number]) OFFICE VISIT, NEW - LEVEL 4 Diagnosis: Mixed hyperlipidemia[ICD10: E78.2] Diagnosis: Chronic pain syndrome[ICD10: G89.4] Diagnosis: Presbycusis, bilateral[ICD10: H91.13] Diagnosis: Impacted cerumen, bilateral[ICD10: H61.23] Diagnosis: Atherosclerotic heart disease of [place] coronary artery without angina pectoris[ICD10: I25.10] Diagnosis: Personal history of other diseases of the circulatory system[ICD10: Z86.79] Leora Hollis MD, [facility] CPT-4: 05742 2017 Plan of Care Planned Activity Notes Codes Status Date Appointment: Injection 04/13/2018 Patient Education: Patient Medication Summary Completed 04/13/2018 Visit Plan: Sinusitis-allergic rhinitis-extend abx x 3 more days-short course of prednisone -let us know if symptoms do not resolve completely. 04/09/2018 Appointment: Elise Castillo WPtel: [phone] (15 min) Moderate 04/09/2018 Appointment: Elise Castillo WPtel: [phone] (15 min) Moderate 04/09/2018 Patient Education: Patient Medication Summary Completed 04/09/2018 Visit Plan: Sciatica-left- kenalog injection today in the office- exercises discussed with the patient, pt to continue with antiinflammatories. Pt is to call if the symptoms do not improve or if they worsen. 04/07/2018 Appointment: Elise Castillo WPtel: [address] [place], [place] [phone] (15 min) Moderate 04/07/2018 Patient Education: Patient Medication Summary Completed 04/07/2018 Patient Education: Back Pain Completed 04/07/2018 Visit Plan: Sinusitis - Pt has acute infection - pain in face, maxillary region, Pt informed to use decongestant, RX given to patient, sinus rinses also recommended. Call if symptoms do not show improvement. 04/03/2018 Appointment: Elise Castillo WPtel: [address] [place], [place] [phone] [place] (15 min) Moderate 04/03/2018 Patient Education: [...] Dr Back 03/20/2018 Appointment: Elise Castillo WPtel: [phone] [phone] [place] (15 min) Moderate 03/20/2018 Appointment: (15 min) Moderate 03/20/2018 Patient Education: Patient Medication Summary Completed 03/20/2018 Visit Plan: Spinal stenosis with back pain - refilled hydrocodone- keep appt with Denture Waxer for treatment of stenosis of arteries, then pt most-likely to have surgical intervention of spine. PAD - pt will need surgical intervention with stenting. Testicular hypofunction - continue with testosterone. 03/10/2018 Appointment: [phone] [place] (15 min) Moderate 03/10/2018 Patient Education: Patient Medication Summary Completed 03/10/2018 Patient Education: Back Pain Completed 03/10/2018 Patient Education: Cholesterol Management Completed 03/10/2018 Appointment: Leora Hollis WPtel: [phone] [facility] [place] (15 min) Moderate 03/09/2018 Appointment: Injection [...] allergy spray. 01/07/2018 Appointment: Sapphire Oneil WPtel: [facility] (15 min) Moderate 01/07/2018 Patient Education: [...] of plan. 12/22/2017 Appointment: Elise Castillo WPtel: [phone] (15 min) Moderate 12/22/2017 Patient Education: Patient Medication Summary Completed 12/22/2017 Visit Plan: Neck and low back pain -will schedule MRI lumbar and cervical spine for further evaluation and proceed as indicated- patient verbalized understanding of plan. 12/15/2017 Appointment: Elise Castillo WPtel: [phone] (15 min) Moderate 12/15/2017 Patient Education: Patient Medication Summary Completed 12/15/2017 Patient Education: Back Pain Completed 12/15/2017 Care Plan: MRI LUMBAR SPINE W/O DYE LOINC : 15832-5 Pending 12/15/2017 Care Plan: MRI NECK SPINE W/O DYE LOINC : 21369-6 Pending 12/15/2017 Appointment: Injection 12/04/2017 Patient Education: [...] surrogate. 11/27/2017 Appointment: [facility] Oneil [phone] [facility] - Annual Wellness Visit [...] sleep 11/17/2017 Appointment: [phone] (15 min) Moderate 11/17/2017 Patient Education: Patient [...] spray. 10/06/2017 Appointment: Leora Hollis WPtel: [phone] [phone] (15 min) Moderate 10/06/2017 Appointment: Sapphire Oneil WPtel: [phone] [facility] (15 min) Moderate 10/06/2017 Patient Education: Patient [...] plan. 07/24/2017 Appointment: Sapphire Oneil WPtel: [phone] [facility] (30 min) Complex 07/24/2017 Patient Education: Patient [...] to medications. 07/14/2017 Appointment: [facility] Holl[facility]el[phone] (15 min) Moderate 07/14/2017 Patient Education: Patient Medication Summary Completed 07/14/2017 Appointment: Le[facility] Hollis [facility]Ptel[phone] [facility] (15 min) Moderate 07/10/2017 Appointment: Injection 06/26/2017 [...] at night 06/09/2017 Appointment: [facility] Hollis [facility]Ptel[phone] [facility] [place] (30 min) Complex 06/09/2017 Patient Education: [...] sleepiness scale score of 15 04/28/2017 Appointment: Leroa Hollis [facility]Ptel[phone] [facility] (30 min) Complex 04/28/2017 Patient Education: Patient [...] removal 03/14/2017 Appointment: Le[facility] Hollis [facility]el[phone] [facility] Patient 03/14/2017 Patient Education: Patient Medication [...] cuff tear -schedule appt with Dr Back for insomnia - I recommend Extended Release [...] pain - refilled hydrocodone- keep appt with Denture Waxer for treatment of stenosis of arteries, then pt most- likely to have surgical intervention of spine. PAD - pt will need surgical intervention with stenting. Testicular hypofunction - continue with testosterone. . Hypogonadism - testosterone shot to be [...] in the nasal steroid allergy spray. . Hyperlipidemia - pt has been counseled [...] on Friday morning for ear wax removal rocephin and kenalog augmentin to dillons call [...] any change in the current treatment plan. REFER FOR PHYSICAL THERAPY AT [facility] -HE HAS A PT HE HAS SEEN [...]
--- OUTSIDE RECORDS SUMMARY | 2018-06-12 08:55 | XMS REPORT | CCD ---
Author Author [facility] Organization [facility] Address [address] [place] [address] Phone Care Team Providers Care Radio Division Captain Name Role Phone PP Unavailable CCM Unavailable Summary Purpose Interface Exchange Insurance Providers Payer name Policy type / Coverage type Covered constitution party ID Effective Begin Date Effective End Date WPS Medicare Part B Medicare Part B [id number] 2017 Unknown [facility] Medicare Part B [id number] 2017 Unknown Family history Father Diagnosis Age At Onset Heart Attack Unknown Social History Social History Element Codes Description Effective Dates Marital status Unknown 03/14/2017 Number of children Unknown 2 03/14/[address]: 9998230 Former smoker Quit 11/03/00; smoke 1/2 pack/day x15 years 03/14/[address]: 254018043 Never drinks alcohol 03/14/2017 Allergies, Adverse Reactions, [...] Active 04/28/2017 Unknown 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 [...] D75.1 04/28/2017 Active 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 ICD-10: I25.10 03/14/2017 Active Chronic pain syndrome ICD-9: 338.4 ICD-10: G89.4 03/14/2017 Active Personal history of other diseases of the circulatory system ICD-9: V12.59 ICD-10: Z86.79 03/14/2017 Active Presbycusis, 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 03/14/2017 Active Medications Medication Codes Instructions Start Date Stop Date Status Fill Instructions Augmentin 875 mg-125 mg tablet RxNorm: 392168 1 Tablet(s) PO BID 04/15/2018 04/28/2018 Active Augmentin 875 mg-125 mg tablet RxNorm: 704006 1 Tablet(s) PO BID 04/15/2018 04/14/2018 Inactive testosterone cypionate 200 mg/mL intramuscular kit RxNorm: 922286 1/2 Milliliter(s ) IM F2inedw 04/13/2018 10/09/2018 Active testosterone cypionate 200 mg/mL intramuscular oil RxNorm: 7650526 Milliliter(s) IM 04/13/2018 04/13/2018 Inactive prednisone 20 mg tablet RxNorm: 913964 1 Tablet(s) PO BID 04/0904/13/2018 Inactive Augmentin 875 mg-125 mg tablet RxNorm: 813778 1 Tablet(s) PO BID 04/09/2018 04/11/2018 Inactive Kenalog 40 mg/mL suspension for injection RxNorm: 5306419 1 Milliliter(s) Inj 04/07/2018 04/07/2018 Inactive Kenalog 40 mg/mL suspension for injection RxNorm: 1858431 Milliliter(s) Inj 04/03/2018 04/03/2018 Inactive Augmentin 875 mg-125 mg tablet RxNorm: 009419 1 Tablet(s) PO BID 04/03/2018 04/08/2018 Inactive ceftriaxone 500 mg solution for injection RxNorm: 6613042 Inj 04/03/2018 04/03/2018 Inactive atorvastatin 40 mg tablet RxNorm: 972514 TAKE ONE TABLET BY MOUTH DAILY 03/20/2018 09/10/2019 Active hydrocodone 5 mg-acetaminophen 325 mg tablet RxNorm: 720518 1-2 Tablet(s) PO Q6 PRN 03/20/2018 04/18/2018 Active mupirocin 2 % topical ointment RxNorm: 705448 1 Application TOP BID 03/20/2018 03/26/2018 Inactive Keflex 500 mg capsule RxNorm: 835836 1 Capsule(s) PO TID 201803/26/2018 Inactive zolpidem 5 mg tablet RxNorm: 683662 Tablet(s) TAKE ONE TABLET BY MOUTH EVERY NIGHT AT BEDTIME NEEDED 03/18/2018 Active clopidogrel 75 mg tablet RxNorm: 636315 1 Tablet(s) PO daily 04/15/2018 Inactive furosemide 40 mg tablet RxNorm: 708255 TAKE ONE TABLET BY MOUTH DAILY 03/17/2018 09/12/2018 Active testosterone cypionate 200 mg/mL intramuscular oil RxNorm: 9899304 Milliliter(s) IM 03/06/2018 03/06/2018 Inactive testosterone cypionate 200 mg/mL intramuscular oil RxNorm: 1125133 Milliliter(s) IM 02/19/2018 02/19/2018 Inactive hydrocodone 5 mg-acetaminophen 325 mg tablet RxNorm: 628916 1-2 Tablet(s) PO Q6 PRN 02/18/2018 03/09/2018 Inactive meloxicam 15 mg tablet RxNorm: 817234 TAKE ONE TABLET BY MOUTH DAILY 02/13/2018 08/11/2018 Active zolpidem 5 mg tablet RxNorm: 446877 TAKE ONE TABLET BY MOUTH EVERY NIGHT AT BEDTIME NEEDED 02/13/2018 04/08/2018 Inactive testosterone cypionate 200 mg/mL intramuscular kit RxNorm: 455133 1/2 Milliliter(s ) IM [id number] 02/03/2018 04/12/2018 Inactive testosterone cypionate 200 mg/mL intramuscular oil RxNorm: 641298 Milliliter(s) IM 02/03/2018 02/03/2018 Inactive cefdinir 300 mg capsule RxNorm: 090533 1 Capsule(s) PO BID 01/18/2018 Inactive prednisone 20 mg tablet RxNorm: 266143 2 Tablet(s) PO QAM 01/0901/08/2018 Inactive cefdinir 300 mg capsule RxNorm: 323558 1 Capsule(s) PO BID 01/08/2018 Inactive prednisone 20 mg tablet RxNorm: 257745 2 Tablet(s) PO QAM 01/0904/08/2018 Inactive Zithromax Z-Timothy 250 mg tablet RxNorm: 903891 1 Tablet(s) PO UD 01/07/2018 04/08/2018 Inactive Kenalog 40 mg/mL suspension for injection RxNorm: 8591715 Milliliter(s) Inj 01/07/2018 01/07/2018 Inactive ceftriaxone 500 mg solution for injection RxNorm: 1716680 Inj 01/07/2018 01/07/2018 Inactive testosterone cypionate 200 mg/mL intramuscular oil RxNorm: 281284 1/2 Milliliter(s ) IM 01/05/2018 01/05/2018 Inactive hydrocodone 5 mg-acetaminophen 325 mg tablet RxNorm: 907261 1-2 Tablet(s) PO Q6 PRN 12/22/2017 02/17/2018 Inactive zolpidem 5 mg tablet RxNorm: 589331 1 Tablet(s) PO 30 min before QHS 12/15/2017 02/12/2018 Inactive testosterone cypionate 200 mg/mL intramuscular oil RxNorm: 927820 Milliliter(s) IM 12/15/2017 12/15/2017 Inactive testosterone cypionate 200 mg/mL intramuscular oil RxNorm: 990086 1/2 Milliliter(s ) IM 12/04/2017 12/04/2017 Inactive testosterone cypionate 200 mg/mL intramuscular oil RxNorm: 009417 1/2 Milliliter(s ) IM 11/17/2017 11/17/2017 Inactive potassium chloride ER 10 mEq capsule,extended release RxNorm: 597597 TAKE ONE CAPSULE BY MOUTH DAILY 11/11/20172018 Inactive testosterone cypionate 200 mg/mL intramuscular oil RxNorm: 788647 Milliliter(s) IM 10/22/2017 10/22/2017 Inactive zolpidem 5 mg tablet RxNorm: 805292 1 Tablet(s) PO 30 min before QHS 10/15/2017 10/14/2017 Inactive zolpidem 5 mg tablet RxNorm: 885982 1 Tablet(s) PO 30 min before QHS 10/15/2017 12/13/2017 Inactive Zithromax Z-Timothy 250 mg tablet RxNorm: 013165 1 Tablet(s) PO UD 10/07/2017 11/16/2017 Inactive testosterone cypionate 200 mg/mL intramuscular oil RxNorm: 078741 Milliliter(s) IM 10/06/2017 10/06/2017 Inactive Kenalog 40 mg/mL suspension for injection RxNorm: 8629836 Milliliter(s) Inj 10/06/2017 10/06/2017 Inactive Zithromax Z-Timothy 250 mg tablet RxNorm: 179078 1 Tablet(s) PO UD 10/06/2017 10/06/2017 Inactive testosterone cypionate 200 mg/mL intramuscular oil RxNorm: 708914 Milliliter(s) IM 09/23/2017 09/23/2017 Inactive testosterone cypionate 200 mg/mL intramuscular kit RxNorm: 197733 1/2 Milliliter(s ) IM [id number] 08/28/2017 02/02/2018 Inactive meloxicam 15 mg tablet RxNorm: 690158 TAKE ONE TABLET BY MOUTH DAILY 08/28/2017 02/12/2018 Inactive testosterone cypionate 200 mg/mL intramuscular oil RxNorm: 807102 Milliliter(s) IM 08/28/2017 08/28/2017 Inactive testosterone cypionate 200 mg/mL intramuscular oil RxNorm: 286953 1/2 Milliliter(s ) IM 08/12/2017 08/12/2017 Inactive meloxicam 15 mg tablet RxNorm: 188501 1 Tablet(s) PO daily 08/201708/27/2017 Inactive atorvastatin 40 mg tablet RxNorm: 156573 TAKE ONE TABLET BY MOUTH DAILY 07/30/2017 02/24/2018 Inactive furosemide 40 mg tablet RxNorm: 554742 TAKE ONE TABLET BY MOUTH DAILY 07/30/2017 02/24/2018 Inactive testosterone cypionate 200 mg/mL intramuscular oil RxNorm: 522450 1/2 Milliliter(s ) IM 07/28/2017 07/28/2017 Inactive testosterone cypionate 200 mg/mL intramuscular oil RxNorm: 579639 1/2 Milliliter(s ) IM 07/14/2017 07/14/2017 Inactive testosterone cypionate 200 mg/mL intramuscular oil RxNorm: 481624 1/2 Milliliter(s ) IM 06/26/2017 06/26/2017 Inactive hydrocodone 5 mg-acetaminophen 325 mg tablet RxNorm: 627075 1 Tablet(s) PO QHS and 1 tab PO daily PRN pain 06/09/2017 Inactive hydrocodone 5 mg-acetaminophen 325 mg tablet RxNorm: 117294 1 Tablet(s) PO daily 06/09/2017 06/18/2017 Inactive testosterone cypionate 200 mg/mL intramuscular oil RxNorm: 389386 1/2 Milliliter(s ) IM 06/09/2017 06/09/2017 Inactive testosterone cypionate 200 mg/mL intramuscular oil RxNorm: 690674 Milliliter(s) IM 05/27/2017 05/27/2017 Inactive testosterone cypionate 200 mg/mL intramuscular oil RxNorm: 821028 Milliliter(s) IM 05/13/2017 05/13/2017 Inactive potassium chloride ER 10 mEq capsule,extended release RxNorm: 264802 1 Capsule(s) PO daily 05/07/2017 11/02/2017 Inactive Vitamin D2 50,000 unit capsule RxNorm: 454964 1 Capsule(s) PO QW 05/06/2017 05/05/2017 Inactive take with OTC vitamin d 2,000 units QD testosterone cypionate 200 mg/mL intramuscular kit RxNorm: 722835 1/2 kit IM 2 x month 05/06/2017 08/27/2017 Inactive Vitamin D2 50,000 unit capsule RxNorm: 384551 1 Capsule(s) PO QW 05/06/2017 08/03/2017 Inactive take with OTC vitamin d 2,000 units QD testosterone cypionate 200 mg/mL intramuscular oil RxNorm: 413805 1/2 Milliliter(s ) IM 04/29/2017 04/29/2017 Inactive fluorouracil 5 % topical cream RxNorm: 287773 1 Application TOP BID 04/28/2017 05/07/2017 Inactive testosterone cypionate 200 mg/mL intramuscular kit RxNorm: 340332 1/2 IM 2 x month 04/28/2017 05/05/2017 Inactive Pamelor 10 mg capsule RxNorm: 274996 1 Capsule(s) PO daily No Start Date Active gabapentin 300 mg capsule RxNorm: 382443 6 Capsule(s) PO daily No Start Date Active cyclobenzaprine 5 mg tablet RxNorm: 137754 1 Tablet(s) PO as needed No Start Date Active diclofenac 1 % topical gel RxNorm: 106083 1 Gram(s) TOP as needed No Start Date Active meloxicam 15 mg tablet RxNorm: 981559 1 Tablet(s) PO daily No Start Date 07/30/2017 Inactive potassium chloride ER 10 mEq tablet,extended release RxNorm: 753811 1 Tablet(s) PO daily No Start Date 05/06/2017 Inactive hydrocodone 5 mg-acetaminophen 325 mg tablet RxNorm: 985465 1 Tablet(s) PO daily No Start Date 06/08/2017 Inactive furosemide 40 mg tablet RxNorm: 267535 1 Tablet(s) PO daily No Start Date 07/29/2017 Inactive atorvastatin 40 mg tablet RxNorm: 253524 1 Tablet(s) PO QHS No Start Date 07/29/2017 Inactive clopidogrel 75 mg tablet RxNorm: 693715 1 Tablet(s) PO daily No Start Date 03/16/2018 Inactive Medication Administered Medication Codes Instructions Start Date Status testosterone cypionate 200 mg/mL intramuscular oil RxNorm: 7284437 Milliliter 04/13/2018 No longer Active Kenalog 40 mg/mL suspension for injection RxNorm: 2192818 1Milliliter 04/07/2018 No longer Active Kenalog 40 mg/mL suspension for injection RxNorm: 0850597 Milliliter 04/03/2018 No longer Active ceftriaxone 500 mg solution for injection RxNorm: 5981102 04/03/2018 No longer Active testosterone cypionate 200 mg/mL intramuscular oil RxNorm: 9091487 Milliliter 03/06/2018 No longer Active testosterone cypionate 200 mg/mL intramuscular oil RxNorm: 9488683 Milliliter 02/19/2018 No longer Active testosterone cypionate 200 mg/mL intramuscular oil RxNorm: 990851 Milliliter 02/03/2018 No longer Active Kenalog 40 mg/mL suspension for injection RxNorm: 7629968 Milliliter 01/07/2018 No longer Active ceftriaxone 500 mg solution for injection RxNorm: 6547576 01/07/2018 No longer Active testosterone cypionate 200 mg/mL intramuscular oil RxNorm: 517418 /2Milliliter 01/05/2018 No longer Active testosterone cypionate 200 mg/mL intramuscular oil RxNorm: 729693 Milliliter 12/15/2017 No longer Active testosterone cypionate 200 mg/mL intramuscular oil RxNorm: 676005 /2Milliliter 12/04/2017 No longer Active testosterone cypionate 200 mg/mL intramuscular oil RxNorm: 207519 /2Milliliter 11/17/2017 No longer Active testosterone cypionate 200 mg/mL intramuscular oil RxNorm: 672643 Milliliter 10/22/2017 No longer Active Kenalog 40 mg/mL suspension for injection RxNorm: 6196629 Milliliter 10/06/2017 No longer Active testosterone cypionate 200 mg/mL intramuscular oil RxNorm: 007802 Milliliter 10/06/2017 No longer Active testosterone cypionate 200 mg/mL intramuscular oil RxNorm: 000049 Milliliter 09/23/2017 No longer Active testosterone cypionate 200 mg/mL intramuscular oil RxNorm: 927296 Milliliter 08/28/2017 No longer Active testosterone cypionate 200 mg/mL intramuscular oil RxNorm: 640400 /2Milliliter 08/12/2017 No longer Active testosterone cypionate 200 mg/mL intramuscular oil RxNorm: 809998 /2Milliliter 07/28/2017 No longer Active testosterone cypionate 200 mg/mL intramuscular oil RxNorm: 277300 /2Milliliter 07/14/2017 No longer Active testosterone cypionate 200 mg/mL intramuscular oil RxNorm: 066514 /2Milliliter 06/26/2017 No longer Active testosterone cypionate 200 mg/mL intramuscular oil RxNorm: 425221 /2Milliliter 06/09/2017 No longer Active testosterone cypionate 200 mg/mL intramuscular oil RxNorm: 580566 Milliliter 05/27/2017 No longer Active testosterone cypionate 200 mg/mL intramuscular oil RxNorm: 230199 Milliliter 05/13/2017 No longer Active testosterone cypionate 200 mg/mL intramuscular oil RxNorm: 425757 1/2Milliliter 04/29/2017 No longer Active Immunizations Vaccine [...] of face ICD-10: L03.211 ICD-9: 682.0 03/20/2018 Spinal stenosis, lumbosacral region ICD-10: M48.07 ICD-9: 724.02 03/10/2018 Mixed hyperlipidemia ICD-10: E78.2 ICD-9: 272.2 03/10/2018 Other malaise ICD-10: R53.81 ICD-9: 780.79 [...] ICD-9: 380.4 03/17/2017 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 [...] Code Item Item Code Result Date Testosterone Wye116 Testo 375.1 ng/dL 03/02/2018 Cbc With Differential [...] 25.6 pg 03/02/2018 Cbc With Differential Ord2 [place]% 7.9 % 03/02/2018 Cbc With Differential Ord2 [...] 1.41 K/ul 03/02/2018 Cbc With Differential Ord2 [place] ABS# 0.8 K/ul 03/02/2018 Cbc With Differential Ord2 Eos ABS# 0.2 K/ul 03/02/2018 Cbc With Differential Ord2 Baso ABS# 0.1 K/ul 03/02/2018 Influenza A+B Qon242 Influ A+B Negative 01/08/2018 C A/B FLU [id number] Influenza A Scr TNP:Improper Specimen 01/07 C A/B FLU [id number] Influenza B Scr TNP:Improper Specimen 01/07 C A/B FLU [id number] Influenza Intrp B AG: PRID:PT:NOSE:NOM:IF TNP:Improper Specimen 01/07/2018 C A/B FLU [id number] IC OK? TNP:Improper Specimen 01/07/2018 Hepatic Bzi831 ALBUMIN 3.7 g/dL 08/06/2017 Hepatic Lhu086 TPRO 5.9 g/dL 08/06/2017 Hepatic Ilr854 GLOB 2.2 g/dL 08/06/2017 Hepatic Yos395 A/G Ratio 1.7 Ratio 08/06/2017 Hepatic Gju774 ALK PHOS 46 U/L 08/06/2017 Hepatic Ocw571 ALT(SGPT) 9 U/L 08/06/2017 Hepatic Wqa093 AST(SGOT) 13 U/L 08/06/2017 Hepatic Vkz542 BILI T 0.6 mg/dL 08/06/2017 Hepatic Qir645 BILI D 0.2 mg/dL 08/06/2017 Hepatic Kch316 BILI I 0.4 mg/dL 08/06/2017 Testosterone Rhp870 Testo 474.5 ng/dL 08/06/2017 Cbc With Differential [...] 28.5 pg 08/06/2017 Cbc With Differential Ord2 [place]% 11.2 % 08/06/2017 Cbc With Differential Ord2 [...] 1.33 K/ul 08/06/2017 Cbc With Differential Ord2 [place] ABS# 0.6 K/ul 08/06/2017 Cbc With Differential Ord2 Eos ABS# 0.3 K/ul 08/06/2017 Cbc With Differential Ord2 Baso ABS# 0.1 K/ul 08/06/2017 Comp Metabolic Mwr661 NA 140 mEq/L 06/02/2017 Comp Metabolic Syy260 K 3.8 mEq/L 06/02/2017 Comp Metabolic Qyh863 CL 102 mEq/L 06/02/2017 Comp Metabolic Flt571 CO2 30.0 mEq/L 06/02/2017 Comp Metabolic Oci392 ANION GAP 12 06/02/2017 Comp Metabolic Lgr780 GLUCOSE 100 mg/dL 06/02/2017 Comp Metabolic Zxr802 Creat 1.1 mg/dL 06/02/2017 Comp Metabolic Hlp198 eGFR 69 ml/min/1.73m2 06/02/2017 Comp Metabolic Sal398 BUN 15 mg/dL 06/02/2017 Comp Metabolic Mbt609 B/C Ratio 13.4 Ratio 06/02/2017 Comp Metabolic Jqn129 CALCIUM 8.6 mg/dL 06/02/2017 Comp Metabolic Itp769 ALK PHOS 63 U/L 06/02/2017 Comp Metabolic Olk566 AST(SGOT) 17 U/L 06/02/2017 Comp Metabolic Jlg316 ALT(SGPT) 12 U/L 06/02/2017 Comp Metabolic Kgs199 BILI T 0.5 mg/dL 06/02/2017 Comp Metabolic Puc763 ALBUMIN 3.9 g/dL 06/02/2017 Comp Metabolic Vsr390 TPRO 6.1 g/dL 06/02/2017 Comp Metabolic Myu583 GLOB 2.2 g/dL 06/02/2017 Comp Metabolic Hba265 A/G Ratio 1.8 Ratio 06/02/2017 Comp Metabolic Dfx999 Osmo 280 mOsmo 06/02/2017 Vitamin D 25 Oh Ywr3735 VITAMIN D, 25 HYDROXY 40.03 ng/mL Cbc [...] 29.7 pg 06/02/2017 Cbc With Differential Ord2 [place]% 10.5 % 06/02/2017 Cbc With Differential Ord2 [...] 1.52 K/ul 06/02/2017 Cbc With Differential Ord2 [place] ABS# 0.6 K/ul 06/02/2017 Cbc With Differential Ord2 Eos ABS# 0.2 K/ul 06/02/2017 Cbc With Differential Ord2 Baso ABS# 0.1 K/ul 06/02/2017 Testosterone Pxb621 Testo 198.4 ng/dL 04/29/2017 Vitamin D 25 Oh Fgo0207 VITAMIN D, 25 HYDROXY 29.25 ng/mL Lipid [...] distress 11/27/2017 None Full Exam - General 1995 Constitutional general appearance Overall: well nourished 11/27/2017 None Full Exam - General 1994 Eyes conjunctiva /eyelids Overall: conjunctiva clear 11/27/2017 None Full Exam - General 1994 Eyes conjunctiva /eyelids Overall: eyelids normal 11/27/2017 None Full Exam - General 1995 Ears/Nose/Throat lips/teeth/gingiva Overall: benign lips 11/27/2017 None [...] Procedure Codes Date THER/PROPH/DIAG INJ SC/IM CPT-4: 98629 04/13/2018 TRIAMCINOLONE ACET INJ NOS CPT-4: J3301 04/07/2018 TRIAMCINOLONE ACET INJ NOS CPT-4: J3301 04/03/2018 ROCEPHIN, PER 250 MG CPT-4: J0696 04/03/2018 THER/PROPH/DIAG INJ SC/IM CPT-4: 38751 03/20/2018 THER/PROPH/DIAG INJ SC/IM CPT-4: 57182 03/06/2018 THER/PROPH/DIAG INJ SC/IM CPT-4: 63259 02/19/2018 THER/PROPH/DIAG INJ SC/IM CPT-4: 28040 02/03/2018 THER/PROPH/DIAG INJ SC/IM CPT-4: 35654 01/07/2018 TRIAMCINOLONE ACET INJ NOS CPT-4: J3301 01/07/2018 ROCEPHIN, PER 250 MG CPT-4: J0696 01/07/2018 THER/PROPH/DIAG INJ SC/IM CPT-4: 40752 01/05/2018 THER/PROPH/DIAG INJ SC/IM CPT-4: 48311 12/15/2017 THER/PROPH/DIAG INJ SC/IM CPT-4: 64646 12/04/2017 PPPS, SUBSEQ VISIT CPT -4: G0439 11/27/2017 ADMIN INFLUENZA VIRUS VAC CPT-4: G0008 11/17/2017 FLU VAC NO PRSV 4 FATOU 3 YRS+ CPT-4: 93141 11/17/2017 THER/PROPH/DIAG INJ SC/IM CPT-4: 32869 11/17/2017 THER/PROPH/DIAG INJ SC/IM CPT-4: 76178 10/22/2017 THER/PROPH/DIAG INJ SC/IM CPT-4: 22132 10/06/2017 TRIAMCINOLONE ACET INJ NOS CPT-4: J3301 10/06/2017 THER/PROPH/DIAG INJ SC/IM CPT-4: 97567 09/23/2017 THER/PROPH/DIAG INJ SC/IM CPT-4: 23992 08/28/2017 THER/PROPH/DIAG INJ SC/IM CPT-4: 54113 08/12/2017 THER/PROPH/DIAG INJ SC/IM CPT-4: 74370 07/28/2017 THER/PROPH/DIAG INJ SC/IM CPT-4: 03862 07/14/2017 THER/PROPH/DIAG INJ SC/IM CPT-4: 17989 06/26/2017 THER/PROPH/DIAG INJ SC/IM CPT-4: 02256 06/09/2017 THER/PROPH/DIAG INJ SC/IM CPT-4: 15360 05/27/2017 THER/PROPH/DIAG INJ SC/IM CPT-4: 72378 05/13/2017 THER/PROPH/DIAG INJ SC/IM CPT-4: 59116 04/29/2017 Vital Signs Date Vital 04/09/2018 Blood Pressure 1: 120/70 Code : 8480-6 Heart Rate 1: 66 bpm Height: 5'10" SpO2: 98% Weight: 04/07/2018 Blood Pressure 1: 126/74 Code : 8480-6 BMI: 29.0 Code : 73562-3 Heart Rate 1 : 75 bpm Height: 5'10" SpO2: 98% Weight: 202 lbs 04/03/2018 Blood Pressure 1: 130/74 Code : 8480-6 BMI: 29.0 Code : 11566-3 Heart Rate 1 : 89 bpm Height: 5'10" SpO2: 98% Temperature: 37.4 (C) / 99.4 (F) Weight: 202 lbs 03/20/2018 Blood Pressure 1: 122/60 Code : 8480-6 Heart Rate 1: 76 bpm Height: 5'10" SpO2: 96% Weight: 03/10/2018 Blood Pressure 1: 120/70 Code : 8480-6 BMI: 29.0 Code : 15722-2 Heart Rate 1 : 82 bpm Height: 5'10" SpO2: 95% Weight: 202 lbs 01/07/2018 Blood Pressure 1: 126/66 Code : 8480-6 BMI: 30.1 Code : 22709-7 Heart Rate 1 : 75 bpm Height: 5'10" SpO2: 97% Temperature: 36.5 (C) / 97.7 (F) Weight: 210 lbs 12/22/2017 Blood Pressure 1: 124/70 Code : 8480-6 BMI: 29.7 Code : 88133-0 Heart Rate 1 : 84 bpm Height: 5'10" SpO2: 94% Weight: 207 lbs 12/15/2017 Blood Pressure 1: 122/82 Code : 8480-6 BMI: 30.0 Code : 20292-6 Heart Rate 1 : 82 bpm Height: 5'10" SpO2: 93% Weight: 209 lbs 11/27/2017 Blood Pressure 1: 132/68 Code : 8480-6 BMI: 29.3 Code : 04214-1 Heart Rate 1 : 71 bpm Height: 5'10" SpO2: 97% Waist Measure (cm): 97 cm Weight: 204 lbs 11/17/2017 Blood Pressure 1: 130/80 Code : 8480-6 BMI: 29.3 Code : 08174-5 Heart Rate 1 : 73 bpm Height: 5'10" SpO2: 99% Weight: 204 lbs 10/06/2017 Blood Pressure 1: 124/60 Code : 8480-6 BMI: 28.8 Code : 70736-2 Heart Rate 1 : 70 bpm Height: 5'10" SpO2: 98% Weight: 201 lbs 07/24/2017 Blood Pressure 1: 118/70 Code : 8480-6 BMI: 29.3 Code : 19768-3 Heart Rate 1 : 82 bpm Height: 5'10" SpO2: 96% Weight: 204 lbs 07/14/2017 Blood Pressure 1: 118/72 Code : 8480-6 BMI: 29.1 Code : 69119-1 Heart Rate 1 : 83 bpm Height: 5'10" SpO2: 98% Weight: 203 lbs 06/09/2017 Blood Pressure 1: 120/74 Code : 8480-6 BMI: 29.3 Code : 62704-2 Heart Rate 1 : 91 bpm Height: 5'10" SpO2: 99% Weight: 204 lbs 04/28/2017 Blood Pressure 1: 118/68 Code : 8480-6 BMI: 28.8 Code : 81557-8 Heart Rate 1 : 74 bpm Height: 5'10" SpO2: 96% Weight: 201 lbs 03/14/2017 Blood Pressure 1: 114/74 Code : 8480-6 BMI: 28.6 Code : 85661-4 Heart Rate 1 : 77 bpm Height: [...] data Encounters Encounter Performer Location Codes Date ) [id number] EST. PATIENT, LEVEL II Diagnosis: Other allergic rhinitis[ICD10: J30.89] Diagnosis: Acute recurrent maxillary sinusitis[ICD10: J01.01] Elise Hollis MD, [facility] CPT-4: 14054 04/09/2018 ([id number]) 40810 EST. PATIENT, LEVEL III Diagnosis: Low back pain[ICD10: M54.5] Diagnosis: Sciatica, left side[ICD10: M54.32] Elise Hollis MD, [facility] CPT-4: 68852 04/07/2018 ([id number]) 57552 EST. PATIENT, LEVEL III Diagnosis: Acute recurrent maxillary sinusitis[ICD10: J01.01] Diagnosis: Cough[ICD10: R05] Elise Hollis MD, [facility] CPT-4: 33126 04/03/2018 65800 EST. 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 PATIENT, LEVEL III Diagnosis: Other malaise[ICD10: R53.81] Diagnosis: Acute laryngopharyngitis[ICD10: J06.0] Diagnosis: Other allergic rhinitis[ICD10: J30.89] Sapphire Hollis MD, [facility] CPT-4: 14563 01/07/2018 ([id number]) 35414 EST. PATIENT, LEVEL III Diagnosis: Spinal stenosis, lumbosacral region[ICD10: M48.07] Diagnosis: Spinal stenosis, cervical region[ICD10: M48.02] Elise Hollis MD, [facility] CPT-4: 95501 12/22/2017 ([id number]) 96884 EST. 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 PATIENT, LEVEL III Diagnosis: Mixed hyperlipidemia[ICD10: E78.2] Diagnosis: Other insomnia[ICD10: G47.09] Leora Hollis MD, [facility] CPT- 4: 70825 11/17/2017 [id number] EST. PATIENT, LEVEL III Diagnosis: Acute laryngopharyngitis[ICD10: J06.0] Diagnosis: Other allergic rhinitis[ICD10: J30.89] Sapphire Hollis MD, [facility] CPT-4: 39514 10/06/2017 [id number] EST. PATIENT, LEVEL III Diagnosis: Pain in left shoulder[ICD10: M25.512] Sapphire Hollis MD, [facility] CPT-4: 61747 07/24/2017 ([id number]) 03922 EST. 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] [facility] CPT-4: 25522 04/28/2017 ([id number]) Miscellaneous no charge Diagnosis: Impacted cerumen, bilateral[ICD10: H61.23] Leora Hollis MD, [facility] CPT-4: 38796 03/17/2017 ([id number]) OFFICE VISIT, NEW - LEVEL 4 Diagnosis: Mixed hyperlipidemia[ICD10: E78.2] Diagnosis: Chronic pain syndrome[ICD10: G89.4] Diagnosis: Presbycusis, bilateral[ICD10: H91.13] Diagnosis: Impacted cerumen, bilateral[ICD10: H61.23] 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 04/09/2018 Appointment: Elise Castillo WPtel: [address] [place], [place] [id number] (15 min) Moderate 04/09/2018 Appointment: Elise Castillo WPtel: [phone] [phone] (15 min) Moderate 04/09/2018 Patient Education: Patient Medication Summary Completed 04/09/2018 Visit Plan: Sciatica-left- kenalog injection today in the office- exercises discussed with the patient, pt to continue with antiinflammatories. Pt is to call if the symptoms do not improve or if they worsen. 04/07/2018 Appointment: Elise Castillo WPtel: [phone] [phone] (15 min) Moderate 04/07/2018 Patient Education: Patient Medication Summary Completed 04/07/2018 Patient Education: Back Pain Completed 04/07/2018 Visit Plan: Sinusitis - Pt has acute infection - pain in face, maxillary region, Pt informed to use decongestant, RX given to patient, sinus rinses also recommended. Call if symptoms do not show improvement. 04/03/2018 Appointment: Elise Castillo WPtel: [phone] [phone] (15 min) Moderate 04/03/2018 Patient Education: Patient [...] Dr Back 03/20/2018 [phone] [place] (15 min) Moderate 03/20/2018 Appointment: (15 min) Moderate 03/20/2018 Patient Education: Patient Medication Summary Completed 03/20/2018 Visit Plan: Spinal stenosis with back pain - refilled hydrocodone- keep appt with [facility] for treatment of stenosis of arteries, then pt most-likely to have surgical intervention of spine. PAD - pt will need surgical intervention with stenting. Testicular hypofunction - continue with testosterone. 03/10/2018 App[phone] [place] (15 min) Moderate 03/10/2018 Patient Education: Patient Medication Summary Completed 03/10/2018 Patient Education: Back Pain Completed 03/10/2018 Patient Education: Cholesterol Management Completed 03/10/2018 Appointment: [phone] [place] (15 min) Moderate 03/09/2018 Appointment: Injection [...] allergy spray. 01/07/2018 Appointment: Sapphire Oneil WPtel: [phone] (15 min) Moderate 01/07/2018 Patient Education: Patient [...] of plan. 12/22/2017 Appointment: Elise Castillo WPtel: [phone] (15 min) Moderate 12/22/2017 Patient Education: Patient Medication Summary Completed 12/22/2017 Visit Plan: Neck and low back pain -will schedule MRI lumbar and cervical spine for further evaluation and proceed as indicated- patient verbalized understanding of plan. 12/15/2017 Appointment: Elise Castillo WPtel: [phone] (15 min) Moderate 12/15/2017 Patient Education: Patient Medication Summary Completed 12/15/2017 Patient Education: Back Pain Completed 12/15/2017 Care Plan: MRI LUMBAR SPINE W/O DYE LOINC : 40319-5 Pending 12/15/2017 Care Plan: MRI NECK SPINE W/O DYE LOINC : 42009-5 Pending 12/15/2017 Appointment: Injection 12/04/2017 Patient Education: [...] care surrogate. 11/27/2017 App[facility]ment[facility] Oneil [phone] [facility] - Annual Wellness Visit 11/27/2017 Patient Education: [...] sleep 11/17/2017 Appointment: [phone] (15 min) Moderate 11/17/2017 Patient Education: [...] spray. 10/06/2017 Appointment: Leora Hollis WPtel: [phone] [facility] (15 min) Moderate 10/06/2017 Appointment: Sapphire Oneil WPtel: [phone] [facility] (15 min) Moderate 10/06/2017 Patient Education: Patient [...] treatment plan. 07/24/2017 Appointment: Sapphire Oneil WPtel: [phone] [facility] (30 min) Complex 07/24/2017 Patient Education: Patient [...] medications. 07/14/2017 Appointment: [facility] Holl[facility]el[phone] [place] (15 min) Moderate 07/14/2017 Patient Education: Patient Medication Summary Completed 07/14/2017 Appointment: [facility] Holl[facility]el[phone] [facility] [place] (15 min) Moderate 07/10/2017 Appointment: [...] night 06/09/2017 Appointment: [facility] Holl[facility]Ptel[phone] [facility] [place] (30 min) Complex 06/09/2017 Patient [...] 15 04/28/2017 Appointment: [facility] Holl[facility]Ptel[phone] [facility] [place] (30 min) Complex 04/28/2017 Patient Education: Patient [...] wax removal 03/14/2017 Appointment: Leora Hollis WPtel: [address] [place] [id number] New Patient 03/14/2017 Patient Education: Patient Medication [...] in on Friday for ear wax removal for insomnia - [...] pain - refilled hydrocodone- keep appt with [facility] for treatment of stenosis of arteries, then [...]
--- NOTE | 2018-06-12 08:57 | Pre-Op Note & Conscious Sedat ---
Pre-Operative Progress Note H&P Reviewed The H&P was reviewed, patient examined and no changes noted. Date H&P Reviewed: Jun 12, 2018 Time H&P Reviewed: 07:35 Conscious Sedation Pre-Proced ASA Score 2 For ASA 3 and 4: Consider anesthesia and medical clearance. Also, for patients with a history of failed moderate sedation consider anesthesia. Airway Lungs Heart ASA score ASA 1: a normal healthy patient ASA 2: a patient with a mild systemic disease (mid diabetes, controlled hypertension, obesity ASA 3: a patient with a severe systemic disease that limits activity (angina , COPD, prior Myocardial infarction) ASA 4: a patient with an incapacitating disease that is a constant threat to life (CHF, renal failure) ASA 5: a moribund patient not expected to survive 24 hrs. (ruptured aneurysm) ASA 6: a declared brain- patient whose organs are being harvested. For emergent operations, add the letter E after the classification Mallampati Classification Grade 2 Sedation Plan Analgesia, Amnesia, Plan communicated to team members, Discussed options with patient/fam, Discussed risks with patient/fam The patient is an appropriate candidate to undergo the planned procedure, sedation, and anesthesia. The patient immediately re-assessed prior to indication. KESHAV CHISHOLM MD Jun 12, 2018 08:57
--- OUTSIDE RECORDS SUMMARY | 2018-06-12 08:58 | XMS REPORT | CCD ---
Author Author [facility] Organization [facility] Address [address] [place] [address] Phone Care Team Providers Care Trailer Assembler Name Role Phone PP Unavailable CCM Unavailable Summary Purpose Interface Exchange Insurance Providers Payer name Policy type / Coverage type Covered alliance party ID Effective Begin Date Effective End Date WPS Medicare Part B Medicare Part B [id number] 2017 Unknown [facility] Medicare Part B [id number] 2017 Unknown Family history Father Diagnosis Age At Onset Heart Attack Unknown Social History Social History Element Codes Description Effective Dates Marital status Unknown 03/14/2017 Number of children Unknown 2 03/14/[address]: 8335500 Former smoker Quit 11/03/00; smoke 1/2 pack/day x15 years 03/14/[address]: 454454528 Never drinks alcohol 03/14/2017 Allergies, Adverse Reactions, [...] Active 04/28/2017 Unknown 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 [...] D75.1 04/28/2017 Active 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 ICD-10: I25.10 03/14/2017 Active Chronic pain syndrome ICD-9: 338.4 ICD-10: G89.4 03/14/2017 Active Personal history of other diseases of the circulatory system ICD-9: V12.59 ICD-10: Z86.79 03/14/2017 Active Presbycusis, 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 03/14/2017 Active Medications Medication Codes Instructions Start Date Stop Date Status Fill Instructions testosterone cypionate 200 mg/mL intramuscular oil RxNorm: 2172616 Milliliter(s) IM 04/13/2018 04/13/2018 Inactive testosterone cypionate 200 mg/mL intramuscular kit RxNorm: 409976 1/2 Milliliter(s ) IM [id number] 04/13/2018 10/09/2018 Active prednisone 20 mg tablet RxNorm: 022207 1 Tablet(s) PO BID 04/0904/13/2018 Inactive Augmentin 875 mg-125 mg tablet RxNorm: 718763 1 Tablet(s) PO BID 04/09/2018 04/11/2018 Inactive Kenalog 40 mg/mL suspension for injection RxNorm: 3967932 1 Milliliter(s) Inj 04/07/2018 04/07/2018 Inactive Kenalog 40 mg/mL suspension for injection RxNorm: 7412823 Milliliter(s) Inj 04/03/2018 04/03/2018 Inactive Augmentin 875 mg-125 mg tablet RxNorm: 287551 1 Tablet(s) PO BID 04/03/2018 04/08/2018 Inactive ceftriaxone 500 mg solution for injection RxNorm: 1530292 Inj 04/03/2018 04/03/2018 Inactive atorvastatin 40 mg tablet RxNorm: 953791 TAKE ONE TABLET BY MOUTH DAILY 03/20/2018 09/10/2019 Active hydrocodone 5 mg-acetaminophen 325 mg tablet RxNorm: 935297 1-2 Tablet(s) PO Q6 PRN 03/20/2018 04/18/2018 Active mupirocin 2 % topical ointment RxNorm: 942574 1 Application TOP BID 03/20/2018 03/26/2018 Inactive Keflex 500 mg capsule RxNorm: 241389 1 Capsule(s) PO TID 201803/26/2018 Inactive zolpidem 5 mg tablet RxNorm: 647844 Tablet(s) TAKE ONE TABLET BY MOUTH EVERY NIGHT AT BEDTIME NEEDED 03/18/2018 Active clopidogrel 75 mg tablet RxNorm: 165233 1 Tablet(s) PO daily 04/15/2018 Active furosemide 40 mg tablet RxNorm: 522677 TAKE ONE TABLET BY MOUTH DAILY 03/17/2018 09/12/2018 Active testosterone cypionate 200 mg/mL intramuscular oil RxNorm: 2262299 Milliliter(s) IM 03/06/2018 03/06/2018 Inactive testosterone cypionate 200 mg/mL intramuscular oil RxNorm: 8869250 Milliliter(s) IM 02/19/2018 02/19/2018 Inactive hydrocodone 5 mg-acetaminophen 325 mg tablet RxNorm: 793854 1-2 Tablet(s) PO Q6 PRN 02/18/2018 03/09/2018 Inactive meloxicam 15 mg tablet RxNorm: 473892 TAKE ONE TABLET BY MOUTH DAILY 02/13/2018 08/11/2018 Active zolpidem 5 mg tablet RxNorm: 521661 TAKE ONE TABLET BY MOUTH EVERY NIGHT AT BEDTIME NEEDED 02/13/2018 04/08/2018 Inactive testosterone cypionate 200 mg/mL intramuscular kit RxNorm: 606742 1/2 Milliliter(s ) IM [id number] 02/03/2018 04/12/2018 Inactive testosterone cypionate 200 mg/mL intramuscular oil RxNorm: 632989 Milliliter(s) IM 02/03/2018 02/03/2018 Inactive cefdinir 300 mg capsule RxNorm: 666707 1 Capsule(s) PO BID 01/18/2018 Inactive prednisone 20 mg tablet RxNorm: 479070 2 Tablet(s) PO QAM 01/0901/08/2018 Inactive cefdinir 300 mg capsule RxNorm: 956523 1 Capsule(s) PO BID 01/08/2018 Inactive prednisone 20 mg tablet RxNorm: 783066 2 Tablet(s) PO QAM 01/0904/08/2018 Inactive Zithromax Z-Timothy 250 mg tablet RxNorm: 548052 1 Tablet(s) PO UD 01/07/2018 04/08/2018 Inactive Kenalog 40 mg/mL suspension for injection RxNorm: 7013915 Milliliter(s) Inj 01/07/2018 01/07/2018 Inactive ceftriaxone 500 mg solution for injection RxNorm: 3663641 Inj 01/07/2018 01/07/2018 Inactive testosterone cypionate 200 mg/mL intramuscular oil RxNorm: 594346 1/2 Milliliter(s ) IM 01/05/2018 01/05/2018 Inactive hydrocodone 5 mg-acetaminophen 325 mg tablet RxNorm: 335372 1-2 Tablet(s) PO Q6 PRN 12/22/2017 02/17/2018 Inactive zolpidem 5 mg tablet RxNorm: 978102 1 Tablet(s) PO 30 min before QHS 12/15/2017 02/12/2018 Inactive testosterone cypionate 200 mg/mL intramuscular oil RxNorm: 026305 Milliliter(s) IM 12/15/2017 12/15/2017 Inactive testosterone cypionate 200 mg/mL intramuscular oil RxNorm: 107518 1/2 Milliliter(s ) IM 12/04/2017 12/04/2017 Inactive testosterone cypionate 200 mg/mL intramuscular oil RxNorm: 419232 1/2 Milliliter(s ) IM 11/17/2017 11/17/2017 Inactive potassium chloride ER 10 mEq capsule,extended release RxNorm: 399821 TAKE ONE CAPSULE BY MOUTH DAILY 11/11/20172018 Inactive testosterone cypionate 200 mg/mL intramuscular oil RxNorm: 003228 Milliliter(s) IM 10/22/2017 10/22/2017 Inactive zolpidem 5 mg tablet RxNorm: 549688 1 Tablet(s) PO 30 min before QHS 10/15/2017 10/14/2017 Inactive zolpidem 5 mg tablet RxNorm: 554669 1 Tablet(s) PO 30 min before QHS 10/15/2017 12/13/2017 Inactive Zithromax Z-Timothy 250 mg tablet RxNorm: 264569 1 Tablet(s) PO UD 10/07/2017 11/16/2017 Inactive testosterone cypionate 200 mg/mL intramuscular oil RxNorm: 139422 Milliliter(s) IM 10/06/2017 10/06/2017 Inactive Kenalog 40 mg/mL suspension for injection RxNorm: 5177466 Milliliter(s) Inj 10/06/2017 10/06/2017 Inactive Zithromax Z-Timothy 250 mg tablet RxNorm: 269839 1 Tablet(s) PO UD 10/06/2017 10/06/2017 Inactive testosterone cypionate 200 mg/mL intramuscular oil RxNorm: 540934 Milliliter(s) IM 09/23/2017 09/23/2017 Inactive testosterone cypionate 200 mg/mL intramuscular kit RxNorm: 406021 1/2 Milliliter(s ) IM [id number] 08/28/2017 02/02/2018 Inactive meloxicam 15 mg tablet RxNorm: 989761 TAKE ONE TABLET BY MOUTH DAILY 08/28/2017 02/12/2018 Inactive testosterone cypionate 200 mg/mL intramuscular oil RxNorm: 581299 Milliliter(s) IM 08/28/2017 08/28/2017 Inactive testosterone cypionate 200 mg/mL intramuscular oil RxNorm: 776790 1/2 Milliliter(s ) IM 08/12/2017 08/12/2017 Inactive meloxicam 15 mg tablet RxNorm: 119917 1 Tablet(s) PO daily 08/201708/27/2017 Inactive atorvastatin 40 mg tablet RxNorm: 208364 TAKE ONE TABLET BY MOUTH DAILY 07/30/2017 02/24/2018 Inactive furosemide 40 mg tablet RxNorm: 903615 TAKE ONE TABLET BY MOUTH DAILY 07/30/2017 02/24/2018 Inactive testosterone cypionate 200 mg/mL intramuscular oil RxNorm: 441889 1/2 Milliliter(s ) IM 07/28/2017 07/28/2017 Inactive testosterone cypionate 200 mg/mL intramuscular oil RxNorm: 509565 1/2 Milliliter(s ) IM 07/14/2017 07/14/2017 Inactive testosterone cypionate 200 mg/mL intramuscular oil RxNorm: 040982 1/2 Milliliter(s ) IM 06/26/2017 06/26/2017 Inactive hydrocodone 5 mg-acetaminophen 325 mg tablet RxNorm: 539623 1 Tablet(s) PO QHS and 1 tab PO daily PRN pain 06/09/2017 Inactive hydrocodone 5 mg-acetaminophen 325 mg tablet RxNorm: 319453 1 Tablet(s) PO daily 06/09/2017 06/18/2017 Inactive testosterone cypionate 200 mg/mL intramuscular oil RxNorm: 303399 1/2 Milliliter(s ) IM 06/09/2017 06/09/2017 Inactive testosterone cypionate 200 mg/mL intramuscular oil RxNorm: 327298 Milliliter(s) IM 05/27/2017 05/27/2017 Inactive testosterone cypionate 200 mg/mL intramuscular oil RxNorm: 155120 Milliliter(s) IM 05/13/2017 05/13/2017 Inactive potassium chloride ER 10 mEq capsule,extended release RxNorm: 860371 1 Capsule(s) PO daily 05/07/2017 11/02/2017 Inactive Vitamin D2 50,000 unit capsule RxNorm: 775847 1 Capsule(s) PO QW 05/06/2017 05/05/2017 Inactive take with OTC vitamin d 2,000 units QD testosterone cypionate 200 mg/mL intramuscular kit RxNorm: 384724 1/2 kit IM 2 x month 05/06/2017 08/27/2017 Inactive Vitamin D2 50,000 unit capsule RxNorm: 568078 1 Capsule(s) PO QW 05/06/2017 08/03/2017 Inactive take with OTC vitamin d 2,000 units QD testosterone cypionate 200 mg/mL intramuscular oil RxNorm: 402775 1/2 Milliliter(s ) IM 04/29/2017 04/29/2017 Inactive fluorouracil 5 % topical cream RxNorm: 742785 1 Application TOP BID 04/28/2017 05/07/2017 Inactive testosterone cypionate 200 mg/mL intramuscular kit RxNorm: 329052 1/2 IM 2 x month 04/28/2017 05/05/2017 Inactive Pamelor 10 mg capsule RxNorm: 282863 1 Capsule(s) PO daily No Start Date Active gabapentin 300 mg capsule RxNorm: 085546 6 Capsule(s) PO daily No Start Date Active cyclobenzaprine 5 mg tablet RxNorm: 002610 1 Tablet(s) PO as needed No Start Date Active diclofenac 1 % topical gel RxNorm: 857315 1 Gram(s) TOP as needed No Start Date Active meloxicam 15 mg tablet RxNorm: 704557 1 Tablet(s) PO daily No Start Date 07/30/2017 Inactive potassium chloride ER 10 mEq tablet,extended release RxNorm: 508816 1 Tablet(s) PO daily No Start Date 05/06/2017 Inactive hydrocodone 5 mg-acetaminophen 325 mg tablet RxNorm: 878149 1 Tablet(s) PO daily No Start Date 06/08/2017 Inactive furosemide 40 mg tablet RxNorm: 410267 1 Tablet(s) PO daily No Start Date 07/29/2017 Inactive atorvastatin 40 mg tablet RxNorm: 350910 1 Tablet(s) PO QHS No Start Date 07/29/2017 Inactive clopidogrel 75 mg tablet RxNorm: 396358 1 Tablet(s) PO daily No Start Date 03/16/2018 Inactive Medication Administered Medication Codes Instructions Start Date Status testosterone cypionate 200 mg/mL intramuscular oil RxNorm: 6736507 Milliliter 04/13/2018 Active Kenalog 40 mg/mL suspension for injection RxNorm: 0688450 1Milliliter 04/07/2018 No longer Active ceftriaxone 500 mg solution for injection RxNorm: 9376772 04/03/2018 No longer Active Kenalog 40 mg/mL suspension for injection RxNorm: 9751505 Milliliter 04/03/2018 No longer Active testosterone cypionate 200 mg/mL intramuscular oil RxNorm: 9206923 Milliliter 03/06/2018 No longer Active testosterone cypionate 200 mg/mL intramuscular oil RxNorm: 8366139 Milliliter 02/19/2018 No longer Active testosterone cypionate 200 mg/mL intramuscular oil RxNorm: 740736 Milliliter 02/03/2018 No longer Active Kenalog 40 mg/mL suspension for injection RxNorm: 1925546 Milliliter 01/07/2018 No longer Active ceftriaxone 500 mg solution for injection RxNorm: 1419387 01/07/2018 No longer Active testosterone cypionate 200 mg/mL intramuscular oil RxNorm: 762059 /2Milliliter 01/05/2018 No longer Active testosterone cypionate 200 mg/mL intramuscular oil RxNorm: 390549 Milliliter 12/15/2017 No longer Active testosterone cypionate 200 mg/mL intramuscular oil RxNorm: 137514 /2Milliliter 12/04/2017 No longer Active testosterone cypionate 200 mg/mL intramuscular oil RxNorm: 294777 /2Milliliter 11/17/2017 No longer Active testosterone cypionate 200 mg/mL intramuscular oil RxNorm: 047057 Milliliter 10/22/2017 No longer Active testosterone cypionate 200 mg/mL intramuscular oil RxNorm: 983717 Milliliter 10/06/2017 No longer Active Kenalog 40 mg/mL suspension for injection RxNorm: 1423113 Milliliter 10/06/2017 No longer Active testosterone cypionate 200 mg/mL intramuscular oil RxNorm: 539240 Milliliter 09/23/2017 No longer Active testosterone cypionate 200 mg/mL intramuscular oil RxNorm: 192626 Milliliter 08/28/2017 No longer Active testosterone cypionate 200 mg/mL intramuscular oil RxNorm: 938078 /2Milliliter 08/12/2017 No longer Active testosterone cypionate 200 mg/mL intramuscular oil RxNorm: 650717 /2Milliliter 07/28/2017 No longer Active testosterone cypionate 200 mg/mL intramuscular oil RxNorm: 176222 /2Milliliter 07/14/2017 No longer Active testosterone cypionate 200 mg/mL intramuscular oil RxNorm: 693366 /2Milliliter 06/26/2017 No longer Active testosterone cypionate 200 mg/mL intramuscular oil RxNorm: 811220 /2Milliliter 06/09/2017 No longer Active testosterone cypionate 200 mg/mL intramuscular oil RxNorm: 609011 Milliliter 05/27/2017 No longer Active testosterone cypionate 200 mg/mL intramuscular oil RxNorm: 911896 Milliliter 05/13/2017 No longer Active testosterone cypionate 200 mg/mL intramuscular oil RxNorm: 081114 /2Milliliter 04/29/2017 No longer Active Immunizations Vaccine [...] ICD-9: 380.4 03/17/2017 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 [...] Code Item Item Code Result Date Testosterone Mft252 Testo 375.1 ng/dL 03/02/2018 Cbc With Differential [...] 25.6 pg 03/02/2018 Cbc With Differential Ord2 [place]% 7.9 % 03/02/2018 Cbc With Differential Ord2 [...] 1.41 K/ul 03/02/2018 Cbc With Differential Ord2 [place] ABS# 0.8 K/ul 03/02/2018 Cbc With Differential Ord2 Eos ABS# 0.2 K/ul 03/02/2018 Cbc With Differential Ord2 Baso ABS# 0.1 K/ul 03/02/2018 Influenza A+B Eiw687 Influ A+B Negative 01/08/2018 C A/B FLU [id number] Influenza A Scr TNP:Improper Specimen 01/07 C A/B FLU [id number] Influenza B Scr TNP:Improper Specimen 01/07 C A/B FLU [id number] IC OK? TNP:Improper Specimen 01/07/2018 C A/B FLU [id number] Influenza Intrp B AG: PRID:PT:NOSE:NOM:IF TNP:Improper Specimen 01/07/2018 Hepatic Ufd025 ALBUMIN 3.7 g/dL 08/06/2017 Hepatic Twr666 TPRO 5.9 g/dL 08/06/2017 Hepatic Dgy940 GLOB 2.2 g/dL 08/06/2017 Hepatic Btq173 A/G Ratio 1.7 Ratio 08/06/2017 Hepatic Ezr104 ALK PHOS 46 U/L 08/06/2017 Hepatic Dbk512 ALT(SGPT) 9 U/L 08/06/2017 Hepatic Ssl795 AST(SGOT) 13 U/L 08/06/2017 Hepatic Xmo097 BILI T 0.6 mg/dL 08/06/2017 Hepatic Nbr320 BILI D 0.2 mg/dL 08/06/2017 Hepatic Dls786 BILI I 0.4 mg/dL 08/06/2017 Testosterone Ysr227 Testo 474.5 ng/dL 08/06/2017 Cbc With Differential [...] 28.5 pg 08/06/2017 Cbc With Differential Ord2 [place]% 11.2 % 08/06/2017 Cbc With Differential Ord2 [...] 1.33 K/ul 08/06/2017 Cbc With Differential Ord2 [place] ABS# 0.6 K/ul 08/06/2017 Cbc With Differential Ord2 Eos ABS# 0.3 K/ul 08/06/2017 Cbc With Differential Ord2 Baso ABS# 0.1 K/ul 08/06/2017 Comp Metabolic Lgc468 NA 140 mEq/L 06/02/2017 Comp Metabolic Mvm389 K 3.8 mEq/L 06/02/2017 Comp Metabolic Qmm025 CL 102 mEq/L 06/02/2017 Comp Metabolic Inb048 CO2 30.0 mEq/L 06/02/2017 Comp Metabolic Xqa754 ANION GAP 12 06/02/2017 Comp Metabolic Out689 GLUCOSE 100 mg/dL 06/02/2017 Comp Metabolic Ttw596 Creat 1.1 mg/dL 06/02/2017 Comp Metabolic Fuk780 eGFR 69 ml/min/1.73m2 06/02/2017 Comp Metabolic Tiq181 BUN 15 mg/dL 06/02/2017 Comp Metabolic Dou723 B/C Ratio 13.4 Ratio 06/02/2017 Comp Metabolic Yue576 CALCIUM 8.6 mg/dL 06/02/2017 Comp Metabolic Osa071 ALK PHOS 63 U/L 06/02/2017 Comp Metabolic Zrj799 AST(SGOT) 17 U/L 06/02/2017 Comp Metabolic Xjn561 ALT(SGPT) 12 U/L 06/02/2017 Comp Metabolic Svz167 BILI T 0.5 mg/dL 06/02/2017 Comp Metabolic Hdn584 ALBUMIN 3.9 g/dL 06/02/2017 Comp Metabolic Dbf344 TPRO 6.1 g/dL 06/02/2017 Comp Metabolic Mog749 GLOB 2.2 g/dL 06/02/2017 Comp Metabolic Fya259 A/G Ratio 1.8 Ratio 06/02/2017 Comp Metabolic Dfk384 Osmo 280 mOsmo 06/02/2017 Vitamin D 25 Oh Dwd2765 VITAMIN D, 25 HYDROXY 40.03 ng/mL Cbc [...] 93.0 fl 06/02/2017 Cbc With Differential Ord2 [place]% 10.5 % 06/02/2017 Cbc With Differential Ord2 [...] 1.52 K/ul 06/02/2017 Cbc With Differential Ord2 [place] ABS# 0.6 K/ul 06/02/2017 Cbc With Differential Ord2 Eos ABS# 0.2 K/ul 06/02/2017 Cbc With Differential Ord2 Baso ABS# 0.1 K/ul 06/02/2017 Testosterone Xnq893 Testo 198.4 ng/dL 04/29/2017 Vitamin D 25 Oh Oqp7349 VITAMIN D, 25 HYDROXY 29.25 ng/mL Lipid [...] 04/07/2018 None Full Exam - General 1995 Eyes conjunctiva /eyelids Overall: cornea clear 04/07/2018 [...] clear 07/14/2017 None Full Exam - General 1995 Ears/Nose/Throat oral cavity/pharynx/larynx Overall: hypopharynx benign 07/14/2017 [...] 1995 Ears/Nose/Throat oral cavity/pharynx/larynx Overall: hypopharynx benign 04/28/2017 [...] Procedure Codes Date THER/PROPH/DIAG INJ SC/IM CPT-4: 31411 04/13/2018 TRIAMCINOLONE ACET INJ NOS CPT-4: J3301 04/07/2018 TRIAMCINOLONE ACET INJ NOS CPT-4: J3301 04/03/2018 ROCEPHIN, PER 250 MG CPT-4: J0696 04/03/2018 THER/PROPH/DIAG INJ SC/IM CPT-4: 43858 03/20/2018 THER/PROPH/DIAG INJ SC/IM CPT-4: 61275 03/06/2018 THER/PROPH/DIAG INJ SC/IM CPT-4: 36635 02/19/2018 THER/PROPH/DIAG INJ SC/IM CPT-4: 87578 02/03/2018 THER/PROPH/DIAG INJ SC/IM CPT-4: 75570 01/07/2018 TRIAMCINOLONE ACET INJ NOS CPT-4: J3301 01/07/2018 ROCEPHIN, PER 250 MG CPT-4: J0696 01/07/2018 THER/PROPH/DIAG INJ SC/IM CPT-4: 88817 01/05/2018 THER/PROPH/DIAG INJ SC/IM CPT-4: 84694 12/15/2017 THER/PROPH/DIAG INJ SC/IM CPT-4: 52658 12/04/2017 PPPS, SUBSEQ VISIT CPT -4: G0439 11/27/2017 ADMIN INFLUENZA VIRUS VAC CPT-4: G0008 11/17/2017 FLU VAC NO PRSV 4 FATOU 3 YRS+ CPT-4: 33379 11/17/2017 THER/PROPH/DIAG INJ SC/IM CPT-4: 22269 11/17/2017 THER/PROPH/DIAG INJ SC/IM CPT-4: 15890 10/22/2017 THER/PROPH/DIAG INJ SC/IM CPT-4: 01121 10/06/2017 TRIAMCINOLONE ACET INJ NOS CPT-4: J3301 10/06/2017 THER/PROPH/DIAG INJ SC/IM CPT-4: 60194 09/23/2017 THER/PROPH/DIAG INJ SC/IM CPT-4: 49004 08/28/2017 THER/PROPH/DIAG INJ SC/IM CPT-4: 75816 08/12/2017 THER/PROPH/DIAG INJ SC/IM CPT-4: 17570 07/28/2017 THER/PROPH/DIAG INJ SC/IM CPT-4: 26850 07/14/2017 THER/PROPH/DIAG INJ SC/IM CPT-4: 79810 06/26/2017 THER/PROPH/DIAG INJ SC/IM CPT-4: 92843 06/09/2017 THER/PROPH/DIAG INJ SC/IM CPT-4: 11453 05/27/2017 THER/PROPH/DIAG INJ SC/IM CPT-4: 01538 05/13/2017 THER/PROPH/DIAG INJ SC/IM CPT-4: 60281 04/29/2017 Vital Signs Date Vital 04/09/2018 Blood Pressure 1: 120/70 Code : 8480-6 Heart Rate 1: 66 bpm Height: 5'10" SpO2: 98% Weight: 04/07/2018 Blood Pressure 1: 126/74 Code : 8480-6 BMI: 29.0 Code : 90007-1 Heart Rate 1 : 75 bpm Height: 5'10" SpO2: 98% Weight: 202 lbs 04/03/2018 Blood Pressure 1: 130/74 Code : 8480-6 BMI: 29.0 Code : 42935-3 Heart Rate 1 : 89 bpm Height: 5'10" SpO2: 98% Temperature: 37.4 (C) / 99.4 (F) Weight: 202 lbs 03/20/2018 Blood Pressure 1: 122/60 Code : 8480-6 Heart Rate 1: 76 bpm Height: 5'10" SpO2: 96% Weight: 03/10/2018 Blood Pressure 1: 120/70 Code : 8480-6 BMI: 29.0 Code : 76637-4 Heart Rate 1 : 82 bpm Height: 5'10" SpO2: 95% Weight: 202 lbs 01/07/2018 Blood Pressure 1: 126/66 Code : 8480-6 BMI: 30.1 Code : 93777-1 Heart Rate 1 : 75 bpm Height: 5'10" SpO2: 97% Temperature: 36.5 (C) / 97.7 (F) Weight: 210 lbs 12/22/2017 Blood Pressure 1: 124/70 Code : 8480-6 BMI: 29.7 Code : 95970-6 Heart Rate 1 : 84 bpm Height: 5'10" SpO2: 94% Weight: 207 lbs 12/15/2017 Blood Pressure 1: 122/82 Code : 8480-6 BMI: 30.0 Code : 17482-1 Heart Rate 1 : 82 bpm Height: 5'10" SpO2: 93% Weight: 209 lbs 11/27/2017 Blood Pressure 1: 132/68 Code : 8480-6 BMI: 29.3 Code : 55984-6 Heart Rate 1 : 71 bpm Height: 5'10" SpO2: 97% Waist Measure (cm): 97 cm Weight: 204 lbs 11/17/2017 Blood Pressure 1: 130/80 Code : 8480-6 BMI: 29.3 Code : 96945-6 Heart Rate 1 : 73 bpm Height: 5'10" SpO2: 99% Weight: 204 lbs 10/06/2017 Blood Pressure 1: 124/60 Code : 8480-6 BMI: 28.8 Code : 75327-3 Heart Rate 1 : 70 bpm Height: 5'10" SpO2: 98% Weight: 201 lbs 07/24/2017 Blood Pressure 1: 118/70 Code : 8480-6 BMI: 29.3 Code : 42390-6 Heart Rate 1 : 82 bpm Height: 5'10" SpO2: 96% Weight: 204 lbs 07/14/2017 Blood Pressure 1: 118/72 Code : 8480-6 BMI: 29.1 Code : 61894-9 Heart Rate 1 : 83 bpm Height: 5'10" SpO2: 98% Weight: 203 lbs 06/09/2017 Blood Pressure 1: 120/74 Code : 8480-6 BMI: 29.3 Code : 01541-5 Heart Rate 1 : 91 bpm Height: 5'10" SpO2: 99% Weight: 204 lbs 04/28/2017 Blood Pressure 1: 118/68 Code : 8480-6 BMI: 28.8 Code : 72460-4 Heart Rate 1 : 74 bpm Height: 5'10" SpO2: 96% Weight: 201 lbs 03/14/2017 Blood Pressure 1: 114/74 Code : 8480-6 BMI: 28.6 Code : 35527-8 Heart Rate 1 : 77 bpm Height: [...] Encounters Encounter Performer Location Codes Date ( [id number] EST. PATIENT, LEVEL II Diagnosis: Other allergic rhinitis[ICD10: J30.89] Diagnosis: Acute recurrent maxillary sinusitis[ICD10: J01.01] Elise Hollis MD, [facility] CPT-4: 64454 04/09/2018 ([id number]) 56929 EST. PATIENT, LEVEL III Diagnosis: Low back pain[ICD10: M54.5] Diagnosis: Sciatica, left side[ICD10: M54.32] Elise Hollis MD, [facility] CPT-4: 77863 04/07/2018 ([id number]) 10781 EST. PATIENT, LEVEL III Diagnosis: Acute recurrent maxillary sinusitis[ICD10: J01.01] Diagnosis: Cough[ICD10: R05] Elise Hollis MD, [facility] CPT-4: 53218 04/03/2018 [id number] EST. 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 PATIENT, LEVEL III Diagnosis: Other malaise[ICD10: R53.81] Diagnosis: Acute laryngopharyngitis[ICD10: J06.0] Diagnosis: Other allergic rhinitis[ICD10: J30.89] Sapphire Hollis MD, [facility] CPT-4: 70890 01/07/2018 ([id number]) 02629 EST. PATIENT, LEVEL III Diagnosis: Spinal stenosis, lumbosacral region[ICD10: M48.07] Diagnosis: Spinal stenosis, cervical region[ICD10: M48.02] Elise Hollis MD, [facility] CPT-4: 04659 12/22/2017 ([id number]) 17358 EST. 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 PATIENT, LEVEL III Diagnosis: Mixed hyperlipidemia[ICD10: E78.2] Diagnosis: Other insomnia[ICD10: G47.09] Leora Hollis MD, [facility] CPT- 4: 18213 11/17/2017 [id number] EST. PATIENT, LEVEL III Diagnosis: Acute laryngopharyngitis[ICD10: J06.0] Diagnosis: Other allergic rhinitis[ICD10: J30.89] Sapphire Hollis MD, [facility] CPT-4: 90874 10/06/2017 99944 EST. PATIENT, LEVEL III Diagnosis: Pain in left shoulder[ICD10: M25.512] Sapphire Hollis MD, [facility] CPT-4: 95365 07/24/2017 ([id number]) 85145 EST. 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79] Leora Hollis MD, [facility] CPT-4: 84643 2017 Plan of Care Planned Activity Notes Codes Status Date Patient Education: Patient Medication Summary Completed 04/13/2018 Visit Plan: Sinusitis-allergic rhinitis-extend abx x 3 more days-short course of prednisone -let us know if symptoms do not resolve completely. 04/09/2018 Appointment: Elise Castillo WPtel: [address] [place], [place] [phone] (15 min) Moderate 04/09/2018 Appointment: Elise Castillo WPtel: [address] [place], [place] [phone] (15 min) Moderate 04/09/2018 Patient Education: Patient Medication Summary Completed 04/09/2018 Visit Plan: Sciatica-left- kenalog injection today in the office- exercises discussed with the patient, pt to continue with antiinflammatories. Pt is to call if the symptoms do not improve or if they worsen. 04/07/2018 Appointment: Elise Castillo WPtel: [phone] (15 min) Moderate 04/07/2018 Patient Education: Patient Medication Summary Completed 04/07/2018 Patient Education: Back Pain Completed 04/07/2018 Visit Plan: Sinusitis - Pt has acute infection - pain in face, maxillary region, Pt informed to use decongestant, RX given to patient, sinus rinses also recommended. Call if symptoms do not show improvement. 04/03/2018 Appointment: Elise Castillo WPtel: [phone] (15 min) Moderate 04/03/2018 Patient Education: Patient [...] Dr Back 03/20/2018 Appointment: Elise Castillo WPtel: [phone] [place] (15 min) Moderate 03/20/2018 Appointment: (15 min) Moderate 03/20/2018 Patient Education: Patient Medication Summary Completed 03/20/2018 Visit Plan: Spinal stenosis with back pain - refilled hydrocodone- keep appt with Anesthesiology Faculty for treatment of stenosis of arteries, then pt most-likely to have surgical intervention of spine. PAD - pt will need surgical intervention with stenting. Testicular hypofunction - continue with testosterone. 03/10/2018 App[facility]ment[phone] [place] (15 min) Moderate 03/10/2018 Patient Education: Patient Medication Summary Completed 03/10/2018 Patient Education: Back Pain Completed 03/10/2018 Patient Education: Cholesterol Management Completed 03/10/2018 Appointment: [phone] [place] (15 min) Moderate 03/09/2018 Appointment: [...] spray. 01/07/2018 [facility]ment[phone] (15 min) Moderate 01/07/2018 Patient Education: Patient [...] verbalized understanding of plan. 12/22/2017 Appointment: Elise Castlilo WPtel: [facility]5 [phone] (15 min) Moderate 12/22/2017 Patient Education: Patient Medication Summary Completed 12/22/2017 Visit Plan: Neck and low back pain -will schedule MRI lumbar and cervical spine for further evaluation and proceed as indicated- patient verbalized understanding of plan. 12/15/2017 Appointment: Elise Castillo WPtel: [facility]5 [phone] (15 min) Moderate 12/15/2017 Patient Education: Patient Medication Summary Completed 12/15/2017 Patient Education: Back Pain Completed 12/15/2017 Care Plan: MRI LUMBAR SPINE W/O DYE LOINC : 58907-5 Pending 12/15/2017 Care Plan: MRI NECK SPINE W/O DYE LOINC : 67022-7 Pending 12/15/2017 Appointment: Injection 12/04/2017 Patient Education: [...] surrogate. 11/27/2017 Appointment: Sapphire Oneil WPtel: [phone] [facility] [facility] - Annual Wellness Visit 11/27/2017 Patient [...] to sleep 11/17/2017 Appointment: Leora Hollis WPtel: [phone] [facility] (15 min) Moderate 11/17/2017 Patient Education: Patient [...] allergy spray. 10/06/2017 Appointment: [facility] Holl[phone] (15 min) Moderate 10/06/2017 Appointment: Sapphire Oneil WPtel: [phone] [facility] (15 min) Moderate 10/06/2017 Patient Education: [...] plan. 07/24/2017 Appointment: [place] Oneil [facility]Ptel[phone] (30 min) Complex 07/24/2017 Patient Education: Patient [...] medications. 07/14/2017 Appointment: [phone] (15 min) Moderate 07/14/2017 Patient Education: Patient Medication Summary Completed 07/14/2017 Appointment: [phone] (15 min) Moderate 07/10/2017 Appointment: Injection [...] at night 06/09/2017 Appointment: Leora Hollis WPtel: [facility]9 [phone] (30 min) Complex 06/09/2017 Patient Education: Patient [...] of 15 04/28/2017 Appointment: Leora Hollis WPtel[facility] [place] (30 min) Complex 04/28/2017 Patient [...] wax removal 03/14/2017 Appointment: Leora Hollis WPtel: [facility] [place] New Patient 03/14/2017 Patient Education: Patient Medication [...] pain - refilled hydrocodone- keep appt with Anest[facility]iology [facility] for treatment of stenosis of arteries, then pt most- likely to have surgical intervention of spine. PAD - pt will need surgical intervention with stenting. Testicular hypofunction - continue with testosterone. REFER FOR PHYSICAL THERAPY AT [facility] -HE HAS A PT HE HAS [...]
[2018-06-12] MEDS ORDERED: CLOP75TA69 PO (09:00)
--- OUTSIDE RECORDS SUMMARY | 2018-06-12 09:00 | XMS REPORT | CCD ---
Author Author [facility] Organization [facility] Address [address] [place] [address] Phone Care Team Providers Care Neon Glass Bender Name Role Phone PP Unavailable CCM Unavailable Summary Purpose Interface Exchange Insurance Providers Payer name Policy type / Coverage type Covered democrat ID Effective Begin Date Effective End Date WPS Medicare Part B Medicare Part B [id number] 2017 Unknown [facility] Medicare Part B [id number] 2017 Unknown Family history Father Diagnosis Age At Onset Heart Attack Unknown Social History Social History Element Codes Description Effective Dates Marital status Unknown 03/14/2017 Number of children Unknown 2 03/14/[address]: 4950867 Former smoker Quit 11/03/00; smoke 1/2 pack/day x15 years 03/14/[address]: 127497276 Never drinks alcohol 03/14/2017 Allergies, Adverse Reactions, [...] Active 04/28/2017 Unknown 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 [...] D75.1 04/28/2017 Active 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 ICD-10: I25.10 03/14/2017 Active Chronic pain syndrome ICD-9: 338.4 ICD-10: G89.4 03/14/2017 Active Personal history of other diseases of the circulatory system ICD-9: V12.59 ICD-10: Z86.79 03/14/2017 Active Presbycusis, 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 03/14/2017 Active Medications Medication Codes Instructions Start Date Stop Date Status Fill Instructions testosterone cypionate 200 mg/mL intramuscular oil RxNorm: 6210359 Milliliter(s) IM 04/13/2018 04/13/2018 Inactive prednisone 20 mg tablet RxNorm: 386322 1 Tablet(s) PO BID 04/0904/13/2018 Inactive Augmentin 875 mg-125 mg tablet RxNorm: 807703 1 Tablet(s) PO BID 04/09/2018 04/11/2018 Inactive Kenalog 40 mg/mL suspension for injection RxNorm: 6322717 1 Milliliter(s) Inj 04/07/2018 04/07/2018 Inactive Kenalog 40 mg/mL suspension for injection RxNorm: 7350780 Milliliter(s) Inj 04/03/2018 04/03/2018 Inactive Augmentin 875 mg-125 mg tablet RxNorm: 655446 1 Tablet(s) PO BID 04/03/2018 04/08/2018 Inactive ceftriaxone 500 mg solution for injection RxNorm: 9191337 Inj 04/03/2018 04/03/2018 Inactive atorvastatin 40 mg tablet RxNorm: 163916 TAKE ONE TABLET BY MOUTH DAILY 03/20/2018 09/10/2019 Active hydrocodone 5 mg-acetaminophen 325 mg tablet RxNorm: 567989 1-2 Tablet(s) PO Q6 PRN 03/20/2018 04/18/2018 Active mupirocin 2 % topical ointment RxNorm: 628749 1 Application TOP BID 03/20/2018 03/26/2018 Inactive Keflex 500 mg capsule RxNorm: 343143 1 Capsule(s) PO TID 201803/26/2018 Inactive zolpidem 5 mg tablet RxNorm: 033542 Tablet(s) TAKE ONE TABLET BY MOUTH EVERY NIGHT AT BEDTIME NEEDED 03/18/2018 Active clopidogrel 75 mg tablet RxNorm: 003585 1 Tablet(s) PO daily 04/15/2018 Active furosemide 40 mg tablet RxNorm: 009081 TAKE ONE TABLET BY MOUTH DAILY 03/17/2018 09/12/2018 Active testosterone cypionate 200 mg/mL intramuscular oil RxNorm: 4587169 Milliliter(s) IM 03/06/2018 03/06/2018 Inactive testosterone cypionate 200 mg/mL intramuscular oil RxNorm: 0481491 Milliliter(s) IM 02/19/2018 02/19/2018 Inactive hydrocodone 5 mg-acetaminophen 325 mg tablet RxNorm: 779589 1-2 Tablet(s) PO Q6 PRN 02/18/2018 03/09/2018 Inactive meloxicam 15 mg tablet RxNorm: 604684 TAKE ONE TABLET BY MOUTH DAILY 02/13/2018 08/11/2018 Active zolpidem 5 mg tablet RxNorm: 573620 TAKE ONE TABLET BY MOUTH EVERY NIGHT AT BEDTIME NEEDED 02/13/2018 04/08/2018 Inactive testosterone cypionate 200 mg/mL intramuscular kit RxNorm: 787799 1/2 Milliliter(s ) IM [id number] 02/03/2018 08/01/2018 Active testosterone cypionate 200 mg/mL intramuscular oil RxNorm: 583584 Milliliter(s) IM 02/03/2018 02/03/2018 Inactive cefdinir 300 mg capsule RxNorm: 890378 1 Capsule(s) PO BID 01/18/2018 Inactive prednisone 20 mg tablet RxNorm: 345984 2 Tablet(s) PO QAM 01/0901/08/2018 Inactive cefdinir 300 mg capsule RxNorm: 119214 1 Capsule(s) PO BID 01/08/2018 Inactive prednisone 20 mg tablet RxNorm: 297521 2 Tablet(s) PO QAM 01/0904/08/2018 Inactive Zithromax Z-Timothy 250 mg tablet RxNorm: 952300 1 Tablet(s) PO UD 01/07/2018 04/08/2018 Inactive Kenalog 40 mg/mL suspension for injection RxNorm: 1419625 Milliliter(s) Inj 01/07/2018 01/07/2018 Inactive ceftriaxone 500 mg solution for injection RxNorm: 4566192 Inj 01/07/2018 01/07/2018 Inactive testosterone cypionate 200 mg/mL intramuscular oil RxNorm: 922471 1/2 Milliliter(s ) IM 01/05/2018 01/05/2018 Inactive hydrocodone 5 mg-acetaminophen 325 mg tablet RxNorm: 740657 1-2 Tablet(s) PO Q6 PRN 12/22/2017 02/17/2018 Inactive zolpidem 5 mg tablet RxNorm: 714699 1 Tablet(s) PO 30 min before QHS 12/15/2017 02/12/2018 Inactive testosterone cypionate 200 mg/mL intramuscular oil RxNorm: 965990 Milliliter(s) IM 12/15/2017 12/15/2017 Inactive testosterone cypionate 200 mg/mL intramuscular oil RxNorm: 069923 1/2 Milliliter(s ) IM 12/04/2017 12/04/2017 Inactive testosterone cypionate 200 mg/mL intramuscular oil RxNorm: 091140 1/2 Milliliter(s ) IM 11/17/2017 11/17/2017 Inactive potassium chloride ER 10 mEq capsule,extended release RxNorm: 369900 TAKE ONE CAPSULE BY MOUTH DAILY 11/11/20172018 Inactive testosterone cypionate 200 mg/mL intramuscular oil RxNorm: 634089 Milliliter(s) IM 10/22/2017 10/22/2017 Inactive zolpidem 5 mg tablet RxNorm: 061597 1 Tablet(s) PO 30 min before QHS 10/15/2017 10/14/2017 Inactive zolpidem 5 mg tablet RxNorm: 940504 1 Tablet(s) PO 30 min before QHS 10/15/2017 12/13/2017 Inactive Zithromax Z-Timothy 250 mg tablet RxNorm: 099136 1 Tablet(s) PO UD 10/07/2017 11/16/2017 Inactive testosterone cypionate 200 mg/mL intramuscular oil RxNorm: 255282 Milliliter(s) IM 10/06/2017 10/06/2017 Inactive Kenalog 40 mg/mL suspension for injection RxNorm: 7486970 Milliliter(s) Inj 10/06/2017 10/06/2017 Inactive Zithromax Z-Timothy 250 mg tablet RxNorm: 838064 1 Tablet(s) PO UD 10/06/2017 10/06/2017 Inactive testosterone cypionate 200 mg/mL intramuscular oil RxNorm: 237375 Milliliter(s) IM 09/23/2017 09/23/2017 Inactive testosterone cypionate 200 mg/mL intramuscular kit RxNorm: 291407 1/2 Milliliter(s ) IM [id number] 08/28/2017 02/02/2018 Inactive meloxicam 15 mg tablet RxNorm: 968832 TAKE ONE TABLET BY MOUTH DAILY 08/28/2017 02/12/2018 Inactive testosterone cypionate 200 mg/mL intramuscular oil RxNorm: 856212 Milliliter(s) IM 08/28/2017 08/28/2017 Inactive testosterone cypionate 200 mg/mL intramuscular oil RxNorm: 264431 1/2 Milliliter(s ) IM 08/12/2017 08/12/2017 Inactive meloxicam 15 mg tablet RxNorm: 228895 1 Tablet(s) PO daily 08/201708/27/2017 Inactive atorvastatin 40 mg tablet RxNorm: 527798 TAKE ONE TABLET BY MOUTH DAILY 07/30/2017 02/24/2018 Inactive furosemide 40 mg tablet RxNorm: 662238 TAKE ONE TABLET BY MOUTH DAILY 07/30/2017 02/24/2018 Inactive testosterone cypionate 200 mg/mL intramuscular oil RxNorm: 328081 1/2 Milliliter(s ) IM 07/28/2017 07/28/2017 Inactive testosterone cypionate 200 mg/mL intramuscular oil RxNorm: 109520 1/2 Milliliter(s ) IM 07/14/2017 07/14/2017 Inactive testosterone cypionate 200 mg/mL intramuscular oil RxNorm: 708603 1/2 Milliliter(s ) IM 06/26/2017 06/26/2017 Inactive hydrocodone 5 mg-acetaminophen 325 mg tablet RxNorm: 604142 1 Tablet(s) PO QHS and 1 tab PO daily PRN pain 06/09/2017 Inactive hydrocodone 5 mg-acetaminophen 325 mg tablet RxNorm: 604134 1 Tablet(s) PO daily 06/09/2017 06/18/2017 Inactive testosterone cypionate 200 mg/mL intramuscular oil RxNorm: 891827 1/2 Milliliter(s ) IM 06/09/2017 06/09/2017 Inactive testosterone cypionate 200 mg/mL intramuscular oil RxNorm: 755194 Milliliter(s) IM 05/27/2017 05/27/2017 Inactive testosterone cypionate 200 mg/mL intramuscular oil RxNorm: 342657 Milliliter(s) IM 05/13/2017 05/13/2017 Inactive potassium chloride ER 10 mEq capsule,extended release RxNorm: 497039 1 Capsule(s) PO daily 05/07/2017 11/02/2017 Inactive Vitamin D2 50,000 unit capsule RxNorm: 188472 1 Capsule(s) PO QW 05/06/2017 05/05/2017 Inactive take with OTC vitamin d 2,000 units QD testosterone cypionate 200 mg/mL intramuscular kit RxNorm: 842660 1/2 kit IM 2 x month 05/06/2017 08/27/2017 Inactive Vitamin D2 50,000 unit capsule RxNorm: 014877 1 Capsule(s) PO QW 05/06/2017 08/03/2017 Inactive take with OTC vitamin d 2,000 units QD testosterone cypionate 200 mg/mL intramuscular oil RxNorm: 516601 1/2 Milliliter(s ) IM 04/29/2017 04/29/2017 Inactive fluorouracil 5 % topical cream RxNorm: 327867 1 Application TOP BID 04/28/2017 05/07/2017 Inactive testosterone cypionate 200 mg/mL intramuscular kit RxNorm: 696107 1/2 IM 2 x month 04/28/2017 05/05/2017 Inactive Pamelor 10 mg capsule RxNorm: 604529 1 Capsule(s) PO daily No Start Date Active gabapentin 300 mg capsule RxNorm: 375728 6 Capsule(s) PO daily No Start Date Active cyclobenzaprine 5 mg tablet RxNorm: 895272 1 Tablet(s) PO as needed No Start Date Active diclofenac 1 % topical gel RxNorm: 548065 1 Gram(s) TOP as needed No Start Date Active meloxicam 15 mg tablet RxNorm: 972737 1 Tablet(s) PO daily No Start Date 07/30/2017 Inactive potassium chloride ER 10 mEq tablet,extended release RxNorm: 559110 1 Tablet(s) PO daily No Start Date 05/06/2017 Inactive hydrocodone 5 mg-acetaminophen 325 mg tablet RxNorm: 479391 1 Tablet(s) PO daily No Start Date 06/08/2017 Inactive furosemide 40 mg tablet RxNorm: 738836 1 Tablet(s) PO daily No Start Date 07/29/2017 Inactive atorvastatin 40 mg tablet RxNorm: 867230 1 Tablet(s) PO QHS No Start Date 07/29/2017 Inactive clopidogrel 75 mg tablet RxNorm: 588958 1 Tablet(s) PO daily No Start Date 03/16/2018 Inactive Medication Administered Medication Codes Instructions Start Date Status testosterone cypionate 200 mg/mL intramuscular oil RxNorm: 4708703 Milliliter 04/13/2018 Active Kenalog 40 mg/mL suspension for injection RxNorm: 8268582 1Milliliter 04/07/2018 No longer Active ceftriaxone 500 mg solution for injection RxNorm: 2105006 04/03/2018 No longer Active Kenalog 40 mg/mL suspension for injection RxNorm: 1568571 Milliliter 04/03/2018 No longer Active testosterone cypionate 200 mg/mL intramuscular oil RxNorm: 5068505 Milliliter 03/06/2018 No longer Active testosterone cypionate 200 mg/mL intramuscular oil RxNorm: 0317571 Milliliter 02/19/2018 No longer Active testosterone cypionate 200 mg/mL intramuscular oil RxNorm: 760437 Milliliter 02/03/2018 No longer Active Kenalog 40 mg/mL suspension for injection RxNorm: 5808897 Milliliter 01/07/2018 No longer Active ceftriaxone 500 mg solution for injection RxNorm: 9408383 01/07/2018 No longer Active testosterone cypionate 200 mg/mL intramuscular oil RxNorm: 588656 1/2Milliliter 01/05/2018 No longer Active testosterone cypionate 200 mg/mL intramuscular oil RxNorm: 222320 Milliliter 12/15/2017 No longer Active testosterone cypionate 200 mg/mL intramuscular oil RxNorm: 106761 /2Milliliter 12/04/2017 No longer Active testosterone cypionate 200 mg/mL intramuscular oil RxNorm: 466045 /2Milliliter 11/17/2017 No longer Active testosterone cypionate 200 mg/mL intramuscular oil RxNorm: 607102 Milliliter 10/22/2017 No longer Active testosterone cypionate 200 mg/mL intramuscular oil RxNorm: 936006 Milliliter 10/06/2017 No longer Active Kenalog 40 mg/mL suspension for injection RxNorm: 6133093 Milliliter 10/06/2017 No longer Active testosterone cypionate 200 mg/mL intramuscular oil RxNorm: 425817 Milliliter 09/23/2017 No longer Active testosterone cypionate 200 mg/mL intramuscular oil RxNorm: 288324 Milliliter 08/28/2017 No longer Active testosterone cypionate 200 mg/mL intramuscular oil RxNorm: 062995 2Milliliter 08/12/2017 No longer Active testosterone cypionate 200 mg/mL intramuscular oil RxNorm: 333672 /2Milliliter 07/28/2017 No longer Active testosterone cypionate 200 mg/mL intramuscular oil RxNorm: 244677 /2Milliliter 07/14/2017 No longer Active testosterone cypionate 200 mg/mL intramuscular oil RxNorm: 716943 /2Milliliter 06/26/2017 No longer Active testosterone cypionate 200 mg/mL intramuscular oil RxNorm: 208927 /2Milliliter 06/09/2017 No longer Active testosterone cypionate 200 mg/mL intramuscular oil RxNorm: 885228 Milliliter 05/27/2017 No longer Active testosterone cypionate 200 mg/mL intramuscular oil RxNorm: 615344 Milliliter 05/13/2017 No longer Active testosterone cypionate 200 mg/mL intramuscular oil RxNorm: 356082 /2Milliliter 04/29/2017 No longer Active Immunizations Vaccine [...] ICD-9: 380.4 03/17/2017 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 [...] Code Item Item Code Result Date Testosterone Zil984 Testo 375.1 ng/dL 03/02/2018 Cbc With Differential [...] 25.6 pg 03/02/2018 Cbc With Differential Ord2 Frontier% 7.9 % 03/02/2018 Cbc With Differential Ord2 [...] 1.41 K/ul 03/02/2018 Cbc With Differential Ord2 Frontier ABS# 0.8 K/ul 03/02/2018 Cbc With Differential Ord2 Eos ABS# 0.2 K/ul 03/02/2018 Cbc With Differential Ord2 Baso ABS# 0.1 K/ul 03/02/2018 Influenza A+B Iio470 Influ A+B Negative 01/08/2018 C A/B FLU [id number] Influenza A Scr TNP:Improper Specimen 01/07 C A/B FLU [id number] Influenza B Scr TNP:Improper Specimen 01/07 C A/B FLU [id number] IC OK? TNP:Improper Specimen 01/07/2018 C A/B FLU [id number] Influenza Intrp B AG: PRID:PT:NOSE:NOM:IF TNP:Improper Specimen 01/07/2018 Hepatic Jhq988 ALBUMIN 3.7 g/dL 08/06/2017 Hepatic Pgn566 TPRO 5.9 g/dL 08/06/2017 Hepatic Ipz399 GLOB 2.2 g/dL 08/06/2017 Hepatic Hhr707 A/G Ratio 1.7 Ratio 08/06/2017 Hepatic Iqf987 ALK PHOS 46 U/L 08/06/2017 Hepatic Lms908 ALT(SGPT) 9 U/L 08/06/2017 Hepatic Xkt391 AST(SGOT) 13 U/L 08/06/2017 Hepatic Uej846 BILI T 0.6 mg/dL 08/06/2017 Hepatic Epz336 BILI D 0.2 mg/dL 08/06/2017 Hepatic Bfe981 BILI I 0.4 mg/dL 08/06/2017 Testosterone Jde314 Testo 474.5 ng/dL 08/06/2017 Cbc With Differential [...] 28.5 pg 08/06/2017 Cbc With Differential Ord2 Frontier% 11.2 % 08/06/2017 Cbc With Differential Ord2 [...] 1.33 K/ul 08/06/2017 Cbc With Differential Ord2 Frontier ABS# 0.6 K/ul 08/06/2017 Cbc With Differential Ord2 Eos ABS# 0.3 K/ul 08/06/2017 Cbc With Differential Ord2 Baso ABS# 0.1 K/ul 08/06/2017 Comp Metabolic Wpn294 NA 140 mEq/L 06/02/2017 Comp Metabolic Ire210 K 3.8 mEq/L 06/02/2017 Comp Metabolic Uye778 CL 102 mEq/L 06/02/2017 Comp Metabolic Jdn243 CO2 30.0 mEq/L 06/02/2017 Comp Metabolic Uot001 ANION GAP 12 06/02/2017 Comp Metabolic Dln778 GLUCOSE 100 mg/dL 06/02/2017 Comp Metabolic Hcd931 Creat 1.1 mg/dL 06/02/2017 Comp Metabolic Rmk359 eGFR 69 ml/min/1.73m2 06/02/2017 Comp Metabolic Fbs536 BUN 15 mg/dL 06/02/2017 Comp Metabolic Nhk897 B/C Ratio 13.4 Ratio 06/02/2017 Comp Metabolic Sis344 CALCIUM 8.6 mg/dL 06/02/2017 Comp Metabolic Apc504 ALK PHOS 63 U/L 06/02/2017 Comp Metabolic Ihr909 AST(SGOT) 17 U/L 06/02/2017 Comp Metabolic Rki698 ALT(SGPT) 12 U/L 06/02/2017 Comp Metabolic Hqk626 BILI T 0.5 mg/dL 06/02/2017 Comp Metabolic Alt956 ALBUMIN 3.9 g/dL 06/02/2017 Comp Metabolic Nyc761 TPRO 6.1 g/dL 06/02/2017 Comp Metabolic Vmj775 GLOB 2.2 g/dL 06/02/2017 Comp Metabolic Bad520 A/G Ratio 1.8 Ratio 06/02/2017 Comp Metabolic Tus627 Osmo 280 mOsmo 06/02/2017 Vitamin D 25 Oh Qsw7894 VITAMIN D, 25 HYDROXY 40.03 ng/mL Cbc [...] 93.0 fl 06/02/2017 Cbc With Differential Ord2 Frontier% 10.5 % 06/02/2017 Cbc With Differential Ord2 [...] 1.52 K/ul 06/02/2017 Cbc With Differential Ord2 Frontier ABS# 0.6 K/ul 06/02/2017 Cbc With Differential Ord2 Eos ABS# 0.2 K/ul 06/02/2017 Cbc With Differential Ord2 Baso ABS# 0.1 K/ul 06/02/2017 Testosterone Ywy342 Testo 198.4 ng/dL 04/29/2017 Vitamin D 25 Oh Voh4774 VITAMIN D, 25 HYDROXY 29.25 ng/mL Lipid [...] dentition 03/10/2018 None Full Exam - General 1994 [...] Procedure Codes Date THER/PROPH/DIAG INJ SC/IM CPT-4: 94639 04/13/2018 TRIAMCINOLONE ACET INJ NOS CPT-4: J3301 04/07/2018 TRIAMCINOLONE ACET INJ NOS CPT-4: J3301 04/03/2018 ROCEPHIN, PER 250 MG CPT-4: J0696 04/03/2018 THER/PROPH/DIAG INJ SC/IM CPT-4: 42432 03/20/2018 THER/PROPH/DIAG INJ SC/IM CPT-4: 94810 03/06/2018 THER/PROPH/DIAG INJ SC/IM CPT-4: 11566 02/19/2018 THER/PROPH/DIAG INJ SC/IM CPT-4: 86701 02/03/2018 THER/PROPH/DIAG INJ SC/IM CPT-4: 57191 01/07/2018 TRIAMCINOLONE ACET INJ NOS CPT-4: J3301 01/07/2018 ROCEPHIN, PER 250 MG CPT-4: J0696 01/07/2018 THER/PROPH/DIAG INJ SC/IM CPT-4: 69504 01/05/2018 THER/PROPH/DIAG INJ SC/IM CPT-4: 89272 12/15/2017 THER/PROPH/DIAG INJ SC/IM CPT-4: 04856 12/04/2017 PPPS, SUBSEQ VISIT CPT -4: G0439 11/27/2017 ADMIN INFLUENZA VIRUS VAC CPT-4: G0008 11/17/2017 FLU VAC NO PRSV 4 FATOU 3 YRS+ CPT-4: 08153 11/17/2017 THER/PROPH/DIAG INJ SC/IM CPT-4: 54091 11/17/2017 THER/PROPH/DIAG INJ SC/IM CPT-4: 62805 10/22/2017 THER/PROPH/DIAG INJ SC/IM CPT-4: 29259 10/06/2017 TRIAMCINOLONE ACET INJ NOS CPT-4: J3301 10/06/2017 THER/PROPH/DIAG INJ SC/IM CPT-4: 24319 09/23/2017 THER/PROPH/DIAG INJ SC/IM CPT-4: 53237 08/28/2017 THER/PROPH/DIAG INJ SC/IM CPT-4: 68735 08/12/2017 THER/PROPH/DIAG INJ SC/IM CPT-4: 91233 07/28/2017 THER/PROPH/DIAG INJ SC/IM CPT-4: 24225 07/14/2017 THER/PROPH/DIAG INJ SC/IM CPT-4: 91023 06/26/2017 THER/PROPH/DIAG INJ SC/IM CPT-4: 26522 06/09/2017 THER/PROPH/DIAG INJ SC/IM CPT-4: 26534 05/27/2017 THER/PROPH/DIAG INJ SC/IM CPT-4: 79362 05/13/2017 THER/PROPH/DIAG INJ SC/IM CPT-4: 52082 04/29/2017 Vital Signs Date Vital 04/09/2018 Blood Pressure 1: 120/70 Code : 8480-6 Heart Rate 1: 66 bpm Height: 5'10" SpO2: 98% Weight: 04/07/2018 Blood Pressure 1: 126/74 Code : 8480-6 BMI: 29.0 Code : 65877-9 Heart Rate 1 : 75 bpm Height: 5'10" SpO2: 98% Weight: 202 lbs 04/03/2018 Blood Pressure 1: 130/74 Code : 8480-6 BMI: 29.0 Code : 32414-2 Heart Rate 1 : 89 bpm Height: 5'10" SpO2: 98% Temperature: 37.4 (C) / 99.4 (F) Weight: 202 lbs 03/20/2018 Blood Pressure 1: 122/60 Code : 8480-6 Heart Rate 1: 76 bpm Height: 5'10" SpO2: 96% Weight: 03/10/2018 Blood Pressure 1: 120/70 Code : 8480-6 BMI: 29.0 Code : 29905-8 Heart Rate 1 : 82 bpm Height: 5'10" SpO2: 95% Weight: 202 lbs 01/07/2018 Blood Pressure 1: 126/66 Code : 8480-6 BMI: 30.1 Code : 70483-8 Heart Rate 1 : 75 bpm Height: 5'10" SpO2: 97% Temperature: 36.5 (C) / 97.7 (F) Weight: 210 lbs 12/22/2017 Blood Pressure 1: 124/70 Code : 8480-6 BMI: 29.7 Code : 33886-9 Heart Rate 1 : 84 bpm Height: 5'10" SpO2: 94% Weight: 207 lbs 12/15/2017 Blood Pressure 1: 122/82 Code : 8480-6 BMI: 30.0 Code : 90112-9 Heart Rate 1 : 82 bpm Height: 5'10" SpO2: 93% Weight: 209 lbs 11/27/2017 Blood Pressure 1: 132/68 Code : 8480-6 BMI: 29.3 Code : 50166-9 Heart Rate 1 : 71 bpm Height: 5'10" SpO2: 97% Waist Measure (cm): 97 cm Weight: 204 lbs 11/17/2017 Blood Pressure 1: 130/80 Code : 8480-6 BMI: 29.3 Code : 20827-5 Heart Rate 1 : 73 bpm Height: 5'10" SpO2: 99% Weight: 204 lbs 10/06/2017 Blood Pressure 1: 124/60 Code : 8480-6 BMI: 28.8 Code : 00721-4 Heart Rate 1 : 70 bpm Height: 5'10" SpO2: 98% Weight: 201 lbs 07/24/2017 Blood Pressure 1: 118/70 Code : 8480-6 BMI: 29.3 Code : 85954-2 Heart Rate 1 : 82 bpm Height: 5'10" SpO2: 96% Weight: 204 lbs 07/14/2017 Blood Pressure 1: 118/72 Code : 8480-6 BMI: 29.1 Code : 84358-5 Heart Rate 1 : 83 bpm Height: 5'10" SpO2: 98% Weight: 203 lbs 06/09/2017 Blood Pressure 1: 120/74 Code : 8480-6 BMI: 29.3 Code : 43246-8 Heart Rate 1 : 91 bpm Height: 5'10" SpO2: 99% Weight: 204 lbs 04/28/2017 Blood Pressure 1: 118/68 Code : 8480-6 BMI: 28.8 Code : 16162-7 Heart Rate 1 : 74 bpm Height: 5'10" SpO2: 96% Weight: 201 lbs 03/14/2017 Blood Pressure 1: 114/74 Code : 8480-6 BMI: 28.6 Code : 48564-3 Heart Rate 1 : 77 bpm Height: [...] data Encounters Encounter Performer Location Codes Date ([id number]) [id number] EST. PATIENT, LEVEL II Diagnosis: Other allergic rhinitis[ICD10: J30.89] Diagnosis: Acute recurrent maxillary sinusitis[ICD10: J01.01] Elise Hollis MD, [facility] CPT-4: 57218 04/09/2018 ([id number]) 18014 EST. PATIENT, LEVEL III Diagnosis: Low back pain[ICD10: M54.5] Diagnosis: Sciatica, left side[ICD10: M54.32] Elise Hollis MD, [facility] CPT-4: 69272 04/07/2018 ([id number]) 59616 EST. PATIENT, LEVEL III Diagnosis: Acute recurrent maxillary sinusitis[ICD10: J01.01] Diagnosis: Cough[ICD10: R05] Elise Hollis MD, [facility] CPT-4: 21239 04/03/2018 [id number] EST. 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 PATIENT, LEVEL III Diagnosis: Other malaise[ICD10: R53.81] Diagnosis: Acute laryngopharyngitis[ICD10: J06.0] Diagnosis: Other allergic rhinitis[ICD10: J30.89] Sapphire Hollis MD, [facility] CPT-4: 31840 01/07/2018 ([id number]) 85874 EST. PATIENT, LEVEL III Diagnosis: Spinal stenosis, lumbosacral region[ICD10: M48.07] Diagnosis: Spinal stenosis, cervical region[ICD10: M48.02] Elise Hollis MD, [facility] CPT-4: 65679 12/22/2017 ([id number]) 79408 EST. 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 PATIENT, LEVEL III Diagnosis: Mixed hyperlipidemia[ICD10: E78.2] Diagnosis: Other insomnia[ICD10: G47.09] Leora Hollis MD, [facility] CPT- 4: 14125 11/17/2017 [id number] EST. PATIENT, LEVEL III Diagnosis: Acute laryngopharyngitis[ICD10: J06.0] Diagnosis: Other allergic rhinitis[ICD10: J30.89] Sapphire Hollis MD, [facility] CPT-4: 17494 10/06/2017 [id number] EST. PATIENT, LEVEL III Diagnosis: Pain in left shoulder[ICD10: M25.512] Sapphire Hollis MD, [facility] CPT-4: 85721 07/24/2017 ([id number]) 44501 EST. 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] Leora Hollis MD, [facility] CPT-4: 15312 04/28/2017 ([id number]) Miscellaneous no charge Diagnosis: Impacted cerumen, bilateral[ICD10: H61.23] Leora Hollis MD, [facility] CPT-4: 30821 03/17/2017 ([id number]) OFFICE VISIT, NEW - LEVEL 4 Diagnosis: Mixed hyperlipidemia[ICD10: E78.2] Diagnosis: Chronic pain syndrome[ICD10: G89.4] Diagnosis: Presbycusis, bilateral[ICD10: H91.13] Diagnosis: Impacted cerumen, bilateral[ICD10: H61.23] Diagnosis: Atherosclerotic heart disease of [place] coronary artery without angina pectoris[ICD10: I25.10] Diagnosis: Personal history of other diseases of the circulatory system[ICD10: Z86.79] Leora Hollis MD, [facility] CPT-4: 90802 2017 Plan of Care Planned Activity Notes Codes Status Date Patient Education: Patient Medication Summary Completed 04/13/2018 Visit Plan: Sinusitis-allergic rhinitis-extend abx x 3 more days-short course of prednisone -let us know if symptoms do not resolve completely. 04/09/2018 Appointment: Elise Castillo WPtel: [address] [place], [place] [phone] (15 min) Moderate 04/09/2018 Appointment: Elise Castillo WPtel: [address] [place], [place] [phone] (15 min) Moderate 04/09/2018 Patient Education: Patient Medication Summary Completed 04/09/2018 Visit Plan: Sciatica-left- kenalog injection today in the office- exercises discussed with the patient, pt to continue with antiinflammatories. Pt is to call if the symptoms do not improve or if they worsen. 04/07/2018 Appointment: Elise Castillo WPtel: [address] [place], [place] [phone] (15 min) Moderate 04/07/2018 Patient Education: Patient Medication Summary Completed 04/07/2018 Patient Education: Back Pain Completed 04/07/2018 Visit Plan: Sinusitis - Pt has acute infection - pain in face, maxillary region, Pt informed to use decongestant, RX given to patient, sinus rinses also recommended. Call if symptoms do not show improvement. 04/03/2018 Appointment: Elise Castillo WPtel: [phone] [id number] (15 min) Moderate 04/03/2018 Patient Education: Patient [...] Dr Back 03/20/2018 Appointment: Elise Castillo WPtel: [facility] [phone] [place] (15 min) Moderate 03/20/2018 Appointment: (15 min) Moderate 03/20/2018 Patient Education: Patient Medication Summary Completed 03/20/2018 Visit Plan: Spinal stenosis with back pain - refilled hydrocodone- keep appt with Brand Coordinator for treatment of stenosis of arteries, then pt most-likely to have surgical intervention of spine. PAD - pt will need surgical intervention with stenting. Testicular hypofunction - continue with testosterone. 03/10/2018 Appointment: [phone] (15 min) Moderate 03/10/2018 Patient Education: Patient Medication Summary Completed 03/10/2018 Patient Education: Back Pain Completed 03/10/2018 Patient Education: Cholesterol Management Completed 03/10/2018 Appointment: [facility] Holl[phone] (15 min) Moderate 03/09/2018 Appointment: Injection 03/06/2018 [...] spray. 01/07/2018 [facility]ment[phone] (15 min) Moderate 01/07/2018 Patient Education: [...] WPtel: [facility] [phone] (15 min) Moderate 12/22/2017 Patient Education: Patient Medication Summary Completed 12/22/2017 Visit Plan: Neck and low back pain -will schedule MRI lumbar and cervical spine for further evaluation and proceed as indicated- patient verbalized understanding of plan. 12/15/2017 Appointment: [phone] [place] (15 min) Moderate 12/15/2017 Patient Education: Patient Medication Summary Completed 12/15/2017 Patient Education: Back Pain Completed 12/15/2017 Care Plan: MRI LUMBAR SPINE W/O DYE LOINC : 79982-9 Pending 12/15/2017 Care Plan: MRI NECK SPINE W/O DYE LOINC : 99841-8 Pending 12/15/2017 Appointment: Injection 12/04/2017 Patient Education: [...] care surrogate. 11/27/2017 Appointment: Sapphire Oneil WPtel: [phone] [facility] [place] [address] - Annual Wellness Visit 11/27/2017 Patient Education: [...] to sleep 11/17/2017 Appointment: Leora Hollis WPtel: [facility] [place] [facility] (15 min) Moderate 11/17/2017 Patient Education: [...] allergy spray. 10/06/2017 Appointment: [facility] Hollis [facility]el: [phone] [place] (15 min) Moderate 10/06/2017 Appointment: [place] [phone] [place] (15 min) Moderate 10/06/2017 Patient Education: [...] treatment plan. 07/24/2017 Appointment: [place] One[phone] (30 min) Complex 07/24/2017 Patient Education: [...] to medications. 07/14/2017 Appointment: [facility] Hollis [facility]el[phone] [place] (15 min) Moderate 07/14/2017 Patient Education: Patient Medication Summary Completed 07/14/2017 Appointment: [facility] Holl[facility]el[phone] (15 min) Moderate 07/10/2017 Appointment: Injection 06/26/2017 [...] night 06/09/2017 Appointment: [facility] Holl[facility]el[phone] (30 min) Complex 06/09/2017 Patient Education: Patient [...] 15 04/28/2017 Appointment: [facility] Hollis [facility]el: [phone] (30 min) Complex 04/28/2017 Patient Education: Patient [...] wax removal 03/14/2017 Appointment: Leora Hollis WPtel: [facility] [place] [place] New Patient 03/14/2017 Patient Education: Patient [...] cuff tear -schedule appt with Dr Back MRI cervical and lumbar spine testosterone injection [...] assure normal liver response to medications. . Sinusitis-allergic rhinitis-extend abx x 3 more [...] pain - refilled hydrocodone- keep appt with Brand Coordinator for treatment of stenosis of arteries, then [...] her [employer] paperwork for health care surrogate. REFER FOR PHYSICAL THERAPY AT [facility] -HE HAS A PT HE HAS SEEN [...] do not show improvement. . Hypogonadism - pt has hx of [...] epworth sleepiness scale score of 15 . Increased left shoulder pain and weakness after fall - Discussed with Dr. Back office - they are going to contact him tomorrow for a possible appointment - pt is to notify clinic with any change in the current treatment plan.
--- OUTSIDE RECORDS SUMMARY | 2018-06-12 09:03 | XMS REPORT | CCD ---
Author Author [facility] Organization [facility] Address [address] [place] [address] Phone Care Team Providers Care Rail Manager Name Role Phone PP Unavailable CCM Unavailable Summary Purpose Interface Exchange Insurance Providers Payer name Policy type / Coverage type Covered alliance party ID Effective Begin Date Effective End Date WPS Medicare Part B Medicare Part B [id number] 2017 Unknown [facility] Medicare Part B [id number] 2017 Unknown Family history Father Diagnosis Age At Onset Heart Attack Unknown Social History Social History Element Codes Description Effective Dates Marital status Unknown 03/14/2017 Number of children Unknown 2 03/14/[address]: 3585843 Former smoker Quit 11/03/00; smoke 1/2 pack/day x15 years 03/14/[address]: 788359672 Never drinks alcohol 03/14/2017 Allergies, Adverse Reactions, Alerts Substance Reaction Codes Entered Date Inactivated Date Status * NO KNOWN ENVIRONMENTAL ALLERGIES Unknown 03/14/2017 No Inactive Date Active * NO KNOWN FOOD ALLERGIES Unknown 03/14/2017 No Inactive Date Active * NO KNOWN DRUG ALLERGIES Unknown 03/14/2017 No Inactive Date Active Past Medical History Illness Codes Condition Status Onset Date Resolved Date Acute recurrent maxillary sinusitis ICD-9: 461.0 ICD-10: [...] ICD-9: 257.2 ICD-10: E29.1 Active 04/28/2017 Unknown Mixed hyperlipidemia ICD-9: 272.2 ICD-10: E78.2 [...] Active 04/28/2017 Unknown 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 ICD-10: I25.10 Active 03/14/2017 Unknown Chronic pain syndrome ICD-9: 338.4 ICD-10: G89.4 Active 03/14/2017 Unknown Personal history of other diseases of the circulatory system ICD-9: V12.59 ICD-10: Z86.79 Active 03/14/2017 Unknown Presbycusis, 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 Active 03/14/2017 Unknown Problems Condition Codes Effective Dates Condition Status Acute recurrent maxillary sinusitis ICD-9: 461.0 ICD-10: [...] hypofunction ICD-9: 257.2 ICD-10: E29.1 04/28/2017 Active Mixed hyperlipidemia ICD-9: 272.2 ICD-10: E78.2 [...] D75.1 04/28/2017 Active 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 ICD-10: I25.10 03/14/2017 Active Chronic pain syndrome ICD-9: 338.4 ICD-10: G89.4 03/14/2017 Active Personal history of other diseases of the circulatory system ICD-9: V12.59 ICD-10: Z86.79 03/14/2017 Active Presbycusis, 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 03/14/2017 Active Medications Medication Codes Instructions Start Date Stop Date Status Fill Instructions prednisone 20 mg tablet RxNorm: 391331 1 Tablet(s) PO BID 04/0904/13/2018 Active Augmentin 875 mg-125 mg tablet RxNorm: 822668 1 Tablet(s) PO BID 04/09/2018 04/11/2018 Active Kenalog 40 mg/mL suspension for injection RxNorm: 8876154 1 Milliliter(s) Inj 04/07/2018 04/07/2018 Inactive Kenalog 40 mg/mL suspension for injection RxNorm: 0755354 Milliliter(s) Inj 04/03/2018 04/03/2018 Inactive Augmentin 875 mg-125 mg tablet RxNorm: 801268 1 Tablet(s) PO BID 04/03/2018 04/08/2018 Inactive ceftriaxone 500 mg solution for injection RxNorm: 2322014 Inj 04/03/2018 04/03/2018 Inactive atorvastatin 40 mg tablet RxNorm: 316644 TAKE ONE TABLET BY MOUTH DAILY 03/20/2018 09/10/2019 Active hydrocodone 5 mg-acetaminophen 325 mg tablet RxNorm: 009743 1-2 Tablet(s) PO Q6 PRN 03/20/2018 04/18/2018 Active mupirocin 2 % topical ointment RxNorm: 333990 1 Application TOP BID 03/20/2018 03/26/2018 Inactive Keflex 500 mg capsule RxNorm: 426361 1 Capsule(s) PO TID 201803/26/2018 Inactive zolpidem 5 mg tablet RxNorm: 825253 Tablet(s) TAKE ONE TABLET BY MOUTH EVERY NIGHT AT BEDTIME NEEDED 03/18/2018 Active clopidogrel 75 mg tablet RxNorm: 101945 1 Tablet(s) PO daily 04/15/2018 Active furosemide 40 mg tablet RxNorm: 635483 TAKE ONE TABLET BY MOUTH DAILY 03/17/2018 09/12/2018 Active testosterone cypionate 200 mg/mL intramuscular oil RxNorm: 1466731 Milliliter(s) IM 03/06/2018 03/06/2018 Inactive testosterone cypionate 200 mg/mL intramuscular oil RxNorm: 4396234 Milliliter(s) IM 02/19/2018 02/19/2018 Inactive hydrocodone 5 mg-acetaminophen 325 mg tablet RxNorm: 381469 1-2 Tablet(s) PO Q6 PRN 02/18/2018 03/09/2018 Inactive meloxicam 15 mg tablet RxNorm: 049217 TAKE ONE TABLET BY MOUTH DAILY 02/13/2018 08/11/2018 Active zolpidem 5 mg tablet RxNorm: 195229 TAKE ONE TABLET BY MOUTH EVERY NIGHT AT BEDTIME NEEDED 02/13/2018 04/08/2018 Inactive testosterone cypionate 200 mg/mL intramuscular kit RxNorm: 931235 1/2 Milliliter(s ) IM [id number] 02/03/2018 08/01/2018 Active testosterone cypionate 200 mg/mL intramuscular oil RxNorm: 828595 Milliliter(s) IM 02/03/2018 02/03/2018 Inactive cefdinir 300 mg capsule RxNorm: 778950 1 Capsule(s) PO BID 01/18/2018 Inactive prednisone 20 mg tablet RxNorm: 466830 2 Tablet(s) PO QAM 01/0901/08/2018 Inactive cefdinir 300 mg capsule RxNorm: 932760 1 Capsule(s) PO BID 01/08/2018 Inactive prednisone 20 mg tablet RxNorm: 243208 2 Tablet(s) PO QAM 01/0904/08/2018 Inactive Zithromax Z-Timothy 250 mg tablet RxNorm: 581719 1 Tablet(s) PO UD 01/07/2018 04/08/2018 Inactive Kenalog 40 mg/mL suspension for injection RxNorm: 3612316 Milliliter(s) Inj 01/07/2018 01/07/2018 Inactive ceftriaxone 500 mg solution for injection RxNorm: 1923326 Inj 01/07/2018 01/07/2018 Inactive testosterone cypionate 200 mg/mL intramuscular oil RxNorm: 289527 1/2 Milliliter(s ) IM 01/05/2018 01/05/2018 Inactive hydrocodone 5 mg-acetaminophen 325 mg tablet RxNorm: 513585 1-2 Tablet(s) PO Q6 PRN 12/22/2017 02/17/2018 Inactive zolpidem 5 mg tablet RxNorm: 523333 1 Tablet(s) PO 30 min before QHS 12/15/2017 02/12/2018 Inactive testosterone cypionate 200 mg/mL intramuscular oil RxNorm: 673815 Milliliter(s) IM 12/15/2017 12/15/2017 Inactive testosterone cypionate 200 mg/mL intramuscular oil RxNorm: 700027 1/2 Milliliter(s ) IM 12/04/2017 12/04/2017 Inactive testosterone cypionate 200 mg/mL intramuscular oil RxNorm: 383957 1/2 Milliliter(s ) IM 11/17/2017 11/17/2017 Inactive potassium chloride ER 10 mEq capsule,extended release RxNorm: 110318 TAKE ONE CAPSULE BY MOUTH DAILY 11/11/20172018 Inactive testosterone cypionate 200 mg/mL intramuscular oil RxNorm: 648284 Milliliter(s) IM 10/22/2017 10/22/2017 Inactive zolpidem 5 mg tablet RxNorm: 576413 1 Tablet(s) PO 30 min before QHS 10/15/2017 10/14/2017 Inactive zolpidem 5 mg tablet RxNorm: 319224 1 Tablet(s) PO 30 min before QHS 10/15/2017 12/13/2017 Inactive Zithromax Z-Timothy 250 mg tablet RxNorm: 512805 1 Tablet(s) PO UD 10/07/2017 11/16/2017 Inactive testosterone cypionate 200 mg/mL intramuscular oil RxNorm: 490225 Milliliter(s) IM 10/06/2017 10/06/2017 Inactive Kenalog 40 mg/mL suspension for injection RxNorm: 6458468 Milliliter(s) Inj 10/06/2017 10/06/2017 Inactive Zithromax Z-Timothy 250 mg tablet RxNorm: 943767 1 Tablet(s) PO UD 10/06/2017 10/06/2017 Inactive testosterone cypionate 200 mg/mL intramuscular oil RxNorm: 973170 Milliliter(s) IM 09/23/2017 09/23/2017 Inactive testosterone cypionate 200 mg/mL intramuscular kit RxNorm: 363585 1/2 Milliliter(s ) IM [id number] 08/28/2017 02/02/2018 Inactive meloxicam 15 mg tablet RxNorm: 186234 TAKE ONE TABLET BY MOUTH DAILY 08/28/2017 02/12/2018 Inactive testosterone cypionate 200 mg/mL intramuscular oil RxNorm: 368757 Milliliter(s) IM 08/28/2017 08/28/2017 Inactive testosterone cypionate 200 mg/mL intramuscular oil RxNorm: 805437 1/2 Milliliter(s ) IM 08/12/2017 08/12/2017 Inactive meloxicam 15 mg tablet RxNorm: 102088 1 Tablet(s) PO daily 08/201708/27/2017 Inactive atorvastatin 40 mg tablet RxNorm: 384285 TAKE ONE TABLET BY MOUTH DAILY 07/30/2017 02/24/2018 Inactive furosemide 40 mg tablet RxNorm: 935231 TAKE ONE TABLET BY MOUTH DAILY 07/30/2017 02/24/2018 Inactive testosterone cypionate 200 mg/mL intramuscular oil RxNorm: 154601 1/2 Milliliter(s ) IM 07/28/2017 07/28/2017 Inactive testosterone cypionate 200 mg/mL intramuscular oil RxNorm: 631292 1/2 Milliliter(s ) IM 07/14/2017 07/14/2017 Inactive testosterone cypionate 200 mg/mL intramuscular oil RxNorm: 854919 1/2 Milliliter(s ) IM 06/26/2017 06/26/2017 Inactive hydrocodone 5 mg-acetaminophen 325 mg tablet RxNorm: 931569 1 Tablet(s) PO QHS and 1 tab PO daily PRN pain 06/09/2017 Inactive hydrocodone 5 mg-acetaminophen 325 mg tablet RxNorm: 698174 1 Tablet(s) PO daily 06/09/2017 06/18/2017 Inactive testosterone cypionate 200 mg/mL intramuscular oil RxNorm: 168865 1/2 Milliliter(s ) IM 06/09/2017 06/09/2017 Inactive testosterone cypionate 200 mg/mL intramuscular oil RxNorm: 019937 Milliliter(s) IM 05/27/2017 05/27/2017 Inactive testosterone cypionate 200 mg/mL intramuscular oil RxNorm: 981367 Milliliter(s) IM 05/13/2017 05/13/2017 Inactive potassium chloride ER 10 mEq capsule,extended release RxNorm: 477575 1 Capsule(s) PO daily 05/07/2017 11/02/2017 Inactive Vitamin D2 50,000 unit capsule RxNorm: 536381 1 Capsule(s) PO QW 05/06/2017 05/05/2017 Inactive take with OTC vitamin d 2,000 units QD testosterone cypionate 200 mg/mL intramuscular kit RxNorm: 006770 1/2 kit IM 2 x month 05/06/2017 08/27/2017 Inactive Vitamin D2 50,000 unit capsule RxNorm: 428773 1 Capsule(s) PO QW 05/06/2017 08/03/2017 Inactive take with OTC vitamin d 2,000 units QD testosterone cypionate 200 mg/mL intramuscular oil RxNorm: 357789 1/2 Milliliter(s ) IM 04/29/2017 04/29/2017 Inactive fluorouracil 5 % topical cream RxNorm: 387628 1 Application TOP BID 04/28/2017 05/07/2017 Inactive testosterone cypionate 200 mg/mL intramuscular kit RxNorm: 640379 1/2 IM 2 x month 04/28/2017 05/05/2017 Inactive Pamelor 10 mg capsule RxNorm: 784970 1 Capsule(s) PO daily No Start Date Active gabapentin 300 mg capsule RxNorm: 120788 6 Capsule(s) PO daily No Start Date Active cyclobenzaprine 5 mg tablet RxNorm: 571110 1 Tablet(s) PO as needed No Start Date Active diclofenac 1 % topical gel RxNorm: 491325 1 Gram(s) TOP as needed No Start Date Active meloxicam 15 mg tablet RxNorm: 136188 1 Tablet(s) PO daily No Start Date 07/30/2017 Inactive potassium chloride ER 10 mEq tablet,extended release RxNorm: 860257 1 Tablet(s) PO daily No Start Date 05/06/2017 Inactive hydrocodone 5 mg-acetaminophen 325 mg tablet RxNorm: 672807 1 Tablet(s) PO daily No Start Date 06/08/2017 Inactive furosemide 40 mg tablet RxNorm: 230245 1 Tablet(s) PO daily No Start Date 07/29/2017 Inactive atorvastatin 40 mg tablet RxNorm: 554100 1 Tablet(s) PO QHS No Start Date 07/29/2017 Inactive clopidogrel 75 mg tablet RxNorm: 442788 1 Tablet(s) PO daily No Start Date 03/16/2018 Inactive Medication Administered Medication Codes Instructions Start Date Status Kenalog 40 mg/mL suspension for injection RxNorm: 3031812 1Milliliter 04/07/2018 No longer Active ceftriaxone 500 mg solution for injection RxNorm: 8520031 04/03/2018 No longer Active Kenalog 40 mg/mL suspension for injection RxNorm: 5452197 Milliliter 04/03/2018 No longer Active testosterone cypionate 200 mg/mL intramuscular oil RxNorm: 1580078 Milliliter 03/06/2018 No longer Active testosterone cypionate 200 mg/mL intramuscular oil RxNorm: 7645865 Milliliter 02/19/2018 No longer Active testosterone cypionate 200 mg/mL intramuscular oil RxNorm: 184463 Milliliter 02/03/2018 No longer Active Kenalog 40 mg/mL suspension for injection RxNorm: 2779702 Milliliter 01/07/2018 No longer Active ceftriaxone 500 mg solution for injection RxNorm: 9187179 01/07/2018 No longer Active testosterone cypionate 200 mg/mL intramuscular oil RxNorm: 478587 /2Milliliter 01/05/2018 No longer Active testosterone cypionate 200 mg/mL intramuscular oil RxNorm: 330614 Milliliter 12/15/2017 No longer Active testosterone cypionate 200 mg/mL intramuscular oil RxNorm: 862913 /2Milliliter 12/04/2017 No longer Active testosterone cypionate 200 mg/mL intramuscular oil RxNorm: 069017 1/2Milliliter 11/17/2017 No longer Active testosterone cypionate 200 mg/mL intramuscular oil RxNorm: 468578 Milliliter 10/22/2017 No longer Active Kenalog 40 mg/mL suspension for injection RxNorm: 2297520 Milliliter 10/06/2017 No longer Active testosterone cypionate 200 mg/mL intramuscular oil RxNorm: 899950 Milliliter 10/06/2017 No longer Active testosterone cypionate 200 mg/mL intramuscular oil RxNorm: 338239 Milliliter 09/23/2017 No longer Active testosterone cypionate 200 mg/mL intramuscular oil RxNorm: 257275 Milliliter 08/28/2017 No longer Active testosterone cypionate 200 mg/mL intramuscular oil RxNorm: 606786 2Milliliter 08/12/2017 No longer Active testosterone cypionate 200 mg/mL intramuscular oil RxNorm: 498158 2Milliliter 07/28/2017 No longer Active testosterone cypionate 200 mg/mL intramuscular oil RxNorm: 621235 2Milliliter 07/14/2017 No longer Active testosterone cypionate 200 mg/mL intramuscular oil RxNorm: 533521 /2Milliliter 06/26/2017 No longer Active testosterone cypionate 200 mg/mL intramuscular oil RxNorm: 547867 /2Milliliter 06/09/2017 No longer Active testosterone cypionate 200 mg/mL intramuscular oil RxNorm: 709954 Milliliter 05/27/2017 No longer Active testosterone cypionate 200 mg/mL intramuscular oil RxNorm: 820577 Milliliter 05/13/2017 No longer Active testosterone cypionate 200 mg/mL intramuscular oil RxNorm: 365438 /2Milliliter 04/29/2017 No longer Active Immunizations Vaccine Codes Date Status Influenza CVX: 141 11/17/2017 completed Assessments Condition Codes Effective Dates Acute recurrent maxillary sinusitis ICD-10: J01.01 ICD-9: 461.0 04/09/2018 Other allergic rhinitis ICD-10: J30.89 ICD-9: 477.8 04/09/2018 Sciatica, left side ICD-10: M54.32 ICD-9: 724.3 04/07/2018 Low back pain ICD-10: M54.5 ICD-9: 724.2 04/07/2018 Cough ICD-10: R05 ICD-9: 786.2 04/03/2018 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 ICD-9: 257.2 03/20/2018 Pain in left shoulder ICD-10: M25.512 ICD-9: [...] ICD-9: 380.4 03/17/2017 Atherosclerotic heart disease of [place] coronary artery without angina pectoris ICD-10: I25.10 [...] Code Item Item Code Result Date Testosterone Sfv694 Testo 375.1 ng/dL 03/02/2018 Cbc With Differential [...] 25.6 pg 03/02/2018 Cbc With Differential Ord2 [place]% 7.9 % 03/02/2018 Cbc With Differential Ord2 [...] 1.41 K/ul 03/02/2018 Cbc With Differential Ord2 [place] ABS# 0.8 K/ul 03/02/2018 Cbc With Differential Ord2 Eos ABS# 0.2 K/ul 03/02/2018 Cbc With Differential Ord2 Baso ABS# 0.1 K/ul 03/02/2018 Influenza A+B Lnm328 Influ A+B Negative 01/08/2018 C A/B FLU [id number] Influenza A Scr TNP:Improper Specimen 01/07 C A/B FLU [id number] Influenza B Scr TNP:Improper Specimen 01/07 C A/B FLU [id number] Influenza Intrp B AG: PRID:PT:NOSE:NOM:IF TNP:Improper Specimen 01/07/2018 C A/B FLU [id number] IC OK? TNP:Improper Specimen 01/07/2018 Hepatic Ucw105 ALBUMIN 3.7 g/dL 08/06/2017 Hepatic Dwv107 TPRO 5.9 g/dL 08/06/2017 Hepatic Uah341 GLOB 2.2 g/dL 08/06/2017 Hepatic Eah154 A/G Ratio 1.7 Ratio 08/06/2017 Hepatic Gjp058 ALK PHOS 46 U/L 08/06/2017 Hepatic Rli448 ALT(SGPT) 9 U/L 08/06/2017 Hepatic Hqs036 AST(SGOT) 13 U/L 08/06/2017 Hepatic Wyc988 BILI T 0.6 mg/dL 08/06/2017 Hepatic Aat702 BILI D 0.2 mg/dL 08/06/2017 Hepatic Ask028 BILI I 0.4 mg/dL 08/06/2017 Testosterone Rqx272 Testo 474.5 ng/dL 08/06/2017 Cbc With Differential [...] 28.5 pg 08/06/2017 Cbc With Differential Ord2 [place]% 11.2 % 08/06/2017 Cbc With Differential Ord2 [...] 1.33 K/ul 08/06/2017 Cbc With Differential Ord2 [place] ABS# 0.6 K/ul 08/06/2017 Cbc With Differential Ord2 Eos ABS# 0.3 K/ul 08/06/2017 Cbc With Differential Ord2 Baso ABS# 0.1 K/ul 08/06/2017 Comp Metabolic Eyr805 NA 140 mEq/L 06/02/2017 Comp Metabolic Ejy578 K 3.8 mEq/L 06/02/2017 Comp Metabolic Iak338 CL 102 mEq/L 06/02/2017 Comp Metabolic Qgm630 CO2 30.0 mEq/L 06/02/2017 Comp Metabolic Kfy668 ANION GAP 12 06/02/2017 Comp Metabolic Phl516 GLUCOSE 100 mg/dL 06/02/2017 Comp Metabolic Nnl562 Creat 1.1 mg/dL 06/02/2017 Comp Metabolic Lyl843 eGFR 69 ml/min/1.73m2 06/02/2017 Comp Metabolic Syx462 BUN 15 mg/dL 06/02/2017 Comp Metabolic Ebn859 B/C Ratio 13.4 Ratio 06/02/2017 Comp Metabolic Dpj755 CALCIUM 8.6 mg/dL 06/02/2017 Comp Metabolic Vbi690 ALK PHOS 63 U/L 06/02/2017 Comp Metabolic Uxr327 AST(SGOT) 17 U/L 06/02/2017 Comp Metabolic Ems787 ALT(SGPT) 12 U/L 06/02/2017 Comp Metabolic Col383 BILI T 0.5 mg/dL 06/02/2017 Comp Metabolic Lbf456 ALBUMIN 3.9 g/dL 06/02/2017 Comp Metabolic Ayp729 TPRO 6.1 g/dL 06/02/2017 Comp Metabolic Fvy684 GLOB 2.2 g/dL 06/02/2017 Comp Metabolic Cqd350 A/G Ratio 1.8 Ratio 06/02/2017 Comp Metabolic Pmg270 Osmo 280 mOsmo 06/02/2017 Vitamin D 25 Oh Edc5173 VITAMIN D, 25 HYDROXY 40.03 ng/mL Cbc [...] 29.7 pg 06/02/2017 Cbc With Differential Ord2 [place]% 10.5 % 06/02/2017 Cbc With Differential Ord2 [...] 1.52 K/ul 06/02/2017 Cbc With Differential Ord2 [place] ABS# 0.6 K/ul 06/02/2017 Cbc With Differential Ord2 Eos ABS# 0.2 K/ul 06/02/2017 Cbc With Differential Ord2 Baso ABS# 0.1 K/ul 06/02/2017 Testosterone Dac279 Testo 198.4 ng/dL 04/29/2017 Vitamin D 25 Oh Ekb9118 VITAMIN D, 25 HYDROXY 29.25 ng/mL Lipid [...] discharge Ears/Nose/Throat/Neck postnasal drip Ears/Nose/Throat/Neck sinus congestion 08 / Ears/Nose/Throat/Neck sore throat 2017 Cardiovascular No chest [...] bruit 03/14/2017 None Procedures Procedure Codes Date TRIAMCINOLONE ACET INJ NOS CPT-4: J3301 04/07/2018 TRIAMCINOLONE ACET INJ NOS CPT-4: J3301 04/03/2018 ROCEPHIN, PER 250 MG CPT-4: J0696 04/03/2018 THER/PROPH/DIAG INJ SC/IM CPT-4: 65071 03/20/2018 THER/PROPH/DIAG INJ SC/IM CPT-4: 82497 03/06/2018 THER/PROPH/DIAG INJ SC/IM CPT-4: 60017 02/19/2018 THER/PROPH/DIAG INJ SC/IM CPT-4: 90544 02/03/2018 THER/PROPH/DIAG INJ SC/IM CPT-4: 78190 01/07/2018 TRIAMCINOLONE ACET INJ NOS CPT-4: J3301 01/07/2018 ROCEPHIN, PER 250 MG CPT-4: J0696 01/07/2018 THER/PROPH/DIAG INJ SC/IM CPT-4: 19910 01/05/2018 THER/PROPH/DIAG INJ SC/IM CPT-4: 08675 12/15/2017 THER/PROPH/DIAG INJ SC/IM CPT-4: 59436 12/04/2017 PPPS, SUBSEQ VISIT CPT -4: G0439 11/27/2017 ADMIN INFLUENZA VIRUS VAC CPT-4: G0008 11/17/2017 FLU VAC NO PRSV 4 FATOU 3 YRS+ CPT-4: 29155 11/17/2017 THER/PROPH/DIAG INJ SC/IM CPT-4: 15178 11/17/2017 THER/PROPH/DIAG INJ SC/IM CPT-4: 83115 10/22/2017 THER/PROPH/DIAG INJ SC/IM CPT-4: 86783 10/06/2017 TRIAMCINOLONE ACET INJ NOS CPT-4: J3301 10/06/2017 THER/PROPH/DIAG INJ SC/IM CPT-4: 62812 09/23/2017 THER/PROPH/DIAG INJ SC/IM CPT-4: 90818 08/28/2017 THER/PROPH/DIAG INJ SC/IM CPT-4: 17615 08/12/2017 THER/PROPH/DIAG INJ SC/IM CPT-4: 39994 07/28/2017 THER/PROPH/DIAG INJ SC/IM CPT-4: 04716 07/14/2017 THER/PROPH/DIAG INJ SC/IM CPT-4: 08775 06/26/2017 THER/PROPH/DIAG INJ SC/IM CPT-4: 15540 06/09/2017 THER/PROPH/DIAG INJ SC/IM CPT-4: 25057 05/27/2017 THER/PROPH/DIAG INJ SC/IM CPT-4: 52912 05/13/2017 THER/PROPH/DIAG INJ SC/IM CPT-4: 12671 04/29/2017 Vital Signs Date Vital 04/09/2018 Blood Pressure 1: 120/70 Code : 8480-6 Heart Rate 1: 66 bpm Height: 5'10" SpO2: 98% Weight: 04/07/2018 Blood Pressure 1: 126/74 Code : 8480-6 BMI: 29.0 Code : 06337-9 Heart Rate 1 : 75 bpm Height: 5'10" SpO2: 98% Weight: 202 lbs 04/03/2018 Blood Pressure 1: 130/74 Code : 8480-6 BMI: 29.0 Code : 54375-9 Heart Rate 1 : 89 bpm Height: 5'10" SpO2: 98% Temperature: 37.4 (C) / 99.4 (F) Weight: 202 lbs 03/20/2018 Blood Pressure 1: 122/60 Code : 8480-6 Heart Rate 1: 76 bpm Height: 5'10" SpO2: 96% Weight: 03/10/2018 Blood Pressure 1: 120/70 Code : 8480-6 BMI: 29.0 Code : 23111-4 Heart Rate 1 : 82 bpm Height: 5'10" SpO2: 95% Weight: 202 lbs 01/07/2018 Blood Pressure 1: 126/66 Code : 8480-6 BMI: 30.1 Code : 62903-1 Heart Rate 1 : 75 bpm Height: 5'10" SpO2: 97% Temperature: 36.5 (C) / 97.7 (F) Weight: 210 lbs 12/22/2017 Blood Pressure 1: 124/70 Code : 8480-6 BMI: 29.7 Code : 84001-0 Heart Rate 1 : 84 bpm Height: 5'10" SpO2: 94% Weight: 207 lbs 12/15/2017 Blood Pressure 1: 122/82 Code : 8480-6 BMI: 30.0 Code : 67756-1 Heart Rate 1 : 82 bpm Height: 5'10" SpO2: 93% Weight: 209 lbs 11/27/2017 Blood Pressure 1: 132/68 Code : 8480-6 BMI: 29.3 Code : 32317-2 Heart Rate 1 : 71 bpm Height: 5'10" SpO2: 97% Waist Measure (cm): 97 cm Weight: 204 lbs 11/17/2017 Blood Pressure 1: 130/80 Code : 8480-6 BMI: 29.3 Code : 19977-6 Heart Rate 1 : 73 bpm Height: 5'10" SpO2: 99% Weight: 204 lbs 10/06/2017 Blood Pressure 1: 124/60 Code : 8480-6 BMI: 28.8 Code : 24902-6 Heart Rate 1 : 70 bpm Height: 5'10" SpO2: 98% Weight: 201 lbs 07/24/2017 Blood Pressure 1: 118/70 Code : 8480-6 BMI: 29.3 Code : 71456-5 Heart Rate 1 : 82 bpm Height: 5'10" SpO2: 96% Weight: 204 lbs 07/14/2017 Blood Pressure 1: 118/72 Code : 8480-6 BMI: 29.1 Code : 05112-8 Heart Rate 1 : 83 bpm Height: 5'10" SpO2: 98% Weight: 203 lbs 06/09/2017 Blood Pressure 1: 120/74 Code : 8480-6 BMI: 29.3 Code : 95326-8 Heart Rate 1 : 91 bpm Height: 5'10" SpO2: 99% Weight: 204 lbs 04/28/2017 Blood Pressure 1: 118/68 Code : 8480-6 BMI: 28.8 Code : 55139-9 Heart Rate 1 : 74 bpm Height: 5'10" SpO2: 96% Weight: 201 lbs 03/14/2017 Blood Pressure 1: 114/74 Code : 8480-6 BMI: 28.6 Code : 55716-1 Heart Rate 1 : 77 bpm Height: [...] data Encounters Encounter Performer Location Codes Date ([id number]) [id number] EST. PATIENT, LEVEL II Diagnosis: Other allergic rhinitis[ICD10: J30.89] Diagnosis: Acute recurrent maxillary sinusitis[ICD10: J01.01] Elise Hollis MD, [facility] CPT-4: 52375 04/09/2018 ([id number]) [id number] EST. PATIENT, LEVEL III Diagnosis: Low back pain[ICD10: M54.5] Diagnosis: Sciatica, left side[ICD10: M54.32] Elise Hollis MD, [facility] CPT-4: 69794 04/07/2018 ([id number]) 54201 EST. PATIENT, LEVEL III Diagnosis: Acute recurrent maxillary sinusitis[ICD10: J01.01] Diagnosis: Cough[ICD10: R05] Elise Hollis MD, [facility] CPT-4: 43943 04/03/2018 [id number] EST. PATIENT, LEVEL III Diagnosis: Cellulitis of face[ICD10: L03.211] Diagnosis: Pain in left shoulder[ICD10: M25.512] Diagnosis: Testicular hypofunction[ICD10: E29.1] Elise Hollis MD, [facility] CPT-4: 51165 03/20/2018 ([id number]) 59446 EST. PATIENT, LEVEL IV Diagnosis: Low back pain[ICD10: M54.5] Diagnosis: Mixed hyperlipidemia[ICD10: E78.2] Diagnosis: Spinal stenosis, lumbosacral region[ICD10: M48.07] Diagnosis: Testicular hypofunction[ICD10: E29.1] Leora Hollis MD, [facility] CPT-4: 60367 03/10/2018 [id number] EST. PATIENT, LEVEL III Diagnosis: Other malaise[ICD10: R53.81] Diagnosis: Acute laryngopharyngitis[ICD10: J06.0] Diagnosis: Other allergic rhinitis[ICD10: J30.89] Sapphire Hollis MD, [facility] CPT-4: 05811 01/07/2018 ([id number]) [id number] EST. PATIENT, LEVEL III Diagnosis: Spinal stenosis, lumbosacral region[ICD10: M48.07] Diagnosis: Spinal stenosis, cervical region[ICD10: M48.02] Elise Hollis MD, [facility] CPT-4: 53586 12/22/2017 ([id number]) 82730 EST. PATIENT, LEVEL III Diagnosis: Cervicalgia[ICD10: M54.2] Diagnosis: Low back pain[ICD10: M54.5] Diagnosis: Testicular hypofunction[ICD10: E29.1] Elise Hollis MD, [facility] CPT-4: 75518 12/15/2017 ([id number]) 18006 EST. PATIENT, LEVEL III Diagnosis: Mixed hyperlipidemia[ICD10: E78.2] Diagnosis: Other insomnia[ICD10: G47.09] Leora Hollis MD, [facility] CPT- 4: 14544 11/17/2017 [id number] EST. PATIENT, LEVEL III Diagnosis: Acute laryngopharyngitis[ICD10: J06.0] Diagnosis: Other allergic rhinitis[ICD10: J30.89] Sapphire Hollis MD, [facility] CPT-4: 20352 10/06/2017 [id number] EST. PATIENT, LEVEL III Diagnosis: Pain in left shoulder[ICD10: M25.512] Sapphire Hollis MD, [facility] CPT-4: 41562 07/24/2017 ([id number]) 12065 EST. PATIENT, LEVEL IV Diagnosis: Mixed hyperlipidemia[ICD10: E78.2] Diagnosis: Chronic obstructive pulmonary disease, unspecified[ICD10: J44.9] Diagnosis: Testicular hypofunction[ICD10: E29.1] Leora Hollis MD, [facility] CPT-4: 87179 07/14/2017 ([id number]) [id number] EST. 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] Diagnosis: Mixed hyperlipidemia[ICD10: E78.2] Diagnosis: Hypoxemia[ICD10: R09.02] Leora Hollis MD, [facility] CPT-4: 85387 06/09/2017 ([id number]) [id number] EST. 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] Leora Hollis MD, [facility] CPT-4: 51580 04/28/2017 ([id number]) Miscellaneous no charge Diagnosis: Impacted cerumen, bilateral[ICD10: H61.23] [facility] CPT-4: 96388 03/17/2017 ([id number]) OFFICE VISIT, NEW - LEVEL 4 Diagnosis: Mixed hyperlipidemia[ICD10: E78.2] Diagnosis: Chronic pain syndrome[ICD10: G89.4] Diagnosis: Presbycusis, bilateral[ICD10: H91.13] Diagnosis: Impacted cerumen, bilateral[ICD10: H61.23] Diagnosis: 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 04/09/2018 Patient Education: Patient Medication Summary Completed 04/09/2018 Visit Plan: Sciatica-left- kenalog injection today in the office- exercises discussed with the patient, pt to continue with antiinflammatories. Pt is to call if the symptoms do not improve or if they worsen. 04/07/2018 Appointment: Elise Castillo WPtel: [address] [place] [address] (15 min) Moderate 04/07/2018 Patient Education: Patient Medication Summary Completed 04/07/2018 Patient Education: Back Pain Completed 04/07/2018 Visit Plan: Sinusitis - Pt has acute infection - pain in face, maxillary region, Pt informed to use decongestant, RX given to patient, sinus rinses also recommended. Call if symptoms do not show improvement. 04/03/2018 Appointment: Elise Castillo WPtel: [address] [place], [place] [id number] (15 min) Moderate 04/03/2018 Patient Education: Patient [...] Dr Back 03/20/2018 Appointment: Elise Castillo WPtel: [phone] [phone] [place] (15 min) Moderate 03/20/2018 Appointment: (15 min) Moderate 03/20/2018 Patient Education: Patient Medication Summary Completed 03/20/2018 Visit Plan: Spinal stenosis with back pain - refilled hydrocodone- keep appt with Cable As[facility]er for treatment of stenosis of arteries, then pt most-likely to have surgical intervention of spine. PAD - pt will need surgical intervention with stenting. Testicular hypofunction - continue with testosterone. 03/10/2018 Appointment: Leora Hollis WPtel: [facility] [place] (15 min) Moderate 03/10/2018 Patient Education: Patient Medication Summary Completed 03/10/2018 Patient Education: Back Pain Completed 03/10/2018 Patient Education: Cholesterol Management Completed 03/10/2018 Appointment: Leora Hollis WPtel: [facility] [place] (15 min) Moderate 03/09/2018 Appointment: Injection [...] spray. 01/07/2018 Appointment: [facility]hire Oneil [facility]el[facility] [phone] [facility] [place] (15 min) Moderate 01/07/2018 Patient Education: [...] plan. 12/22/2017 Appointment: [facility] Castillo [facility]el[facility] [phone] [phone] [place] (15 min) Moderate 12/22/2017 Patient Education: Patient Medication Summary Completed 12/22/2017 Visit Plan: Neck and low back pain -will schedule MRI lumbar and cervical spine for further evaluation and proceed as indicated- patient verbalized understanding of plan. 12/15/2017 Appointment: El[facility] Castillo [facility]el[facility] [phone] [facility] (15 min) Moderate 12/15/2017 Patient Education: Patient Medication Summary Completed 12/15/2017 Patient Education: Back Pain Completed 12/15/2017 Care Plan: MRI LUMBAR SPINE W/O DYE LOINC : 96432-6 Pending 12/15/2017 Care Plan: MRI NECK SPINE W/O DYE LOINC : 02196-7 Pending 12/15/2017 Appointment: Injection 12/04/2017 Patient Education: [...] surrogate. 11/27/2017 Appointment: Sapphire Oneil WPtel[facility] [phone] [facility] [facility] - Annual Wellness Visit 11/27/2017 Patient [...] to sleep 11/17/2017 Appointment: Leora Hollis WPtel: [facility] (15 min) Moderate 11/17/2017 Patient Education: [...] allergy spray. 10/06/2017 Appointment: Leora Hollis WPtel: [facility] (15 min) Moderate 10/06/2017 Appointment: Sapphire Oneil WPtel: [facility] (15 min) Moderate 10/06/2017 Patient Education: Patient [...] plan. 07/24/2017 Appointment: S[place] Oneil WPtel[facility] [phone] [facility] (30 min) Complex 07/24/2017 Patient Education: Patient [...] medications. 07/14/2017 Appointment: Le[facility] Hollis [facility]Ptel[facility] [phone] [facility] (15 min) Moderate 07/14/2017 Patient Education: Patient Medication Summary Completed 07/14/2017 Appointment: Leora Hollis WPtel: [phone] [facility] (15 min) Moderate 07/10/2017 Appointment: Injection [...] at night 06/09/2017 Appointment: Leora Hollis WPtel[facility] [phone] [facility] [place] (30 min) Complex 06/09/2017 Patient [...] 15 04/28/2017 Appointment: Leora Hollis WPtel: [phone] [facility] (30 min) Complex 04/28/2017 Patient Education: Patient [...] removal 03/14/2017 Appointment: Le[facility] Hollis WPtel: [phone] [facility] New Patient 03/14/2017 Patient Education: Patient [...] pain - refilled hydrocodone- keep appt with Cable Assembler for treatment of stenosis of arteries, then pt most- likely to have surgical intervention of spine. PAD - pt will need surgical intervention with stenting. Testicular hypofunction - continue with testosterone. REFER FOR PHYSICAL THERAPY AT [facility] -HE HAS A PT HE HAS [...]
--- OUTSIDE RECORDS SUMMARY | 2018-06-12 09:05 | XMS REPORT | CCD ---
Author Author [facility] Organization [facility] Address [address] [place] [address] Phone Care Team Providers Care [employer] Drafter Name Role Phone PP Unavailable CCM Unavailable Summary Purpose Interface Exchange Insurance Providers Payer name Policy type / Coverage type Covered republican ID Effective Begin Date Effective End Date WPS Medicare Part B Medicare Part B [id number] 2017 Unknown [facility] Medicare Part B [id number] 2017 Unknown Family history Father Diagnosis Age At Onset Heart Attack Unknown Social History Social History Element Codes Description Effective Dates Marital status Unknown 03/14/2017 Number of children Unknown 2 03/14/[address]: 0148615 Former smoker Quit 11/03/00; smoke 1/2 pack/day x15 years 03/14/[address]: 835399013 Never drinks alcohol 03/14/2017 Allergies, Adverse Reactions, Alerts Substance Reaction Codes Entered Date Inactivated Date Status * NO KNOWN ENVIRONMENTAL ALLERGIES Unknown 03/14/2017 No Inactive Date Active * NO KNOWN FOOD ALLERGIES Unknown 03/14/2017 No Inactive Date Active * NO KNOWN DRUG ALLERGIES Unknown 03/14/2017 No Inactive Date Active Past Medical History Illness Codes Condition Status Onset Date Resolved Date Sciatica Unknown Active 04/07/2018 Unknown Impacted cerumen, bilateral ICD-9: 380.4 ICD-10: H61.23 Active 03/14/2017 Unknown Low back pain ICD-9: 724.2 ICD-10: M54.5 Active 12/15/2017 Unknown Sciatica, left side ICD-9: 724.3 ICD-10: M54.32 Active 04/07/2018 Unknown Acute recurrent maxillary sinusitis ICD-9: 461.0 ICD-10: J01.01 Active 04/03/2018 Unknown Cough ICD-9: 786.2 ICD-10: R05 Active [...] 465.0 ICD-10: J06.0 Active 10/06/2017 Unknown Other allergic rhinitis ICD-9: 477.8 ICD-10: J30.89 Active 10/06/2017 Unknown Other malaise ICD-9: 780.79 [...] Active 04/28/2017 Unknown 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 ICD-10: I25.10 Active 03/14/2017 Unknown Chronic pain syndrome ICD-9: 338.4 ICD-10: G89.4 Active 03/14/2017 Unknown Personal history of other diseases of the circulatory system ICD-9: V12.59 ICD-10: Z86.79 Active 03/14/2017 Unknown Presbycusis, 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 Active 03/14/2017 Unknown Problems Condition Codes Effective Dates Condition Status Sciatica Unknown 04/07/2018 Active Impacted cerumen, bilateral ICD-9: 380.4 ICD-10: H61.23 03/14/2017 Active Low back pain ICD-9: 724.2 ICD-10: M54.5 12/15/2017 Active Sciatica, left side ICD-9: 724.3 ICD-10: M54.32 04/07/2018 Active Acute recurrent maxillary sinusitis ICD-9: 461.0 ICD-10: J01.01 04/03/2018 Active Cough ICD-9: 786.2 ICD-10: R05 04/03/2018 Active Cellulitis of face ICD -9: 682.0 ICD-10: L03.211 03/20/2018 Active Pain in left shoulder ICD-9: 719.41 ICD-10: M25.512 07/24/2017 Active 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 04/28/2017 Active Mixed hyperlipidemia ICD-9: 272.2 ICD-10: E78.2 03/14/2017 Active Spinal stenosis, lumbosacral region ICD-9: 724.02 ICD-10: M48.07 12/22/2017 Active Acute laryngopharyngitis ICD-9: 465.0 ICD-10: J06.0 10/06/2017 Active Other allergic rhinitis ICD-9: 477.8 ICD-10: J30.89 10/06/2017 Active Other malaise ICD-9: 780.79 ICD-10: [...] D75.1 04/28/2017 Active 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 ICD-10: I25.10 03/14/2017 Active Chronic pain syndrome ICD-9: 338.4 ICD-10: G89.4 03/14/2017 Active Personal history of other diseases of the circulatory system ICD-9: V12.59 ICD-10: Z86.79 03/14/2017 Active Presbycusis, 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 03/14/2017 Active Medications Medication Codes Instructions Start Date Stop Date Status Fill Instructions Kenalog 40 mg/mL suspension for injection RxNorm: 5711361 1 Milliliter(s) Inj 04/07/2018 04/07/2018 Inactive Augmentin 875 mg-125 mg tablet RxNorm: 419202 1 Tablet(s) PO BID 04/03/2018 04/09/2018 Active Kenalog 40 mg/mL suspension for injection RxNorm: 6537194 Milliliter(s) Inj 04/03/2018 04/03/2018 Inactive ceftriaxone 500 mg solution for injection RxNorm: 0972192 Inj 04/03/2018 04/03/2018 Inactive atorvastatin 40 mg tablet RxNorm: 136292 TAKE ONE TABLET BY MOUTH DAILY 03/20/2018 09/10/2019 Active hydrocodone 5 mg-acetaminophen 325 mg tablet RxNorm: 691111 1-2 Tablet(s) PO Q6 PRN 03/20/2018 04/18/2018 Active mupirocin 2 % topical ointment RxNorm: 441739 1 Application TOP BID 03/20/2018 03/26/2018 Inactive Keflex 500 mg capsule RxNorm: 133849 1 Capsule(s) PO TID 201803/26/2018 Inactive zolpidem 5 mg tablet RxNorm: 312928 Tablet(s) TAKE ONE TABLET BY MOUTH EVERY NIGHT AT BEDTIME NEEDED 03/18/2018 Active clopidogrel 75 mg tablet RxNorm: 853328 1 Tablet(s) PO daily 04/15/2018 Active furosemide 40 mg tablet RxNorm: 110021 TAKE ONE TABLET BY MOUTH DAILY 03/17/2018 09/12/2018 Active testosterone cypionate 200 mg/mL intramuscular oil RxNorm: 5040303 Milliliter(s) IM 03/06/2018 03/06/2018 Inactive testosterone cypionate 200 mg/mL intramuscular oil RxNorm: 7243775 Milliliter(s) IM 02/19/2018 02/19/2018 Inactive hydrocodone 5 mg-acetaminophen 325 mg tablet RxNorm: 033536 1-2 Tablet(s) PO Q6 PRN 02/18/2018 03/09/2018 Inactive zolpidem 5 mg tablet RxNorm: 637516 TAKE ONE TABLET BY MOUTH EVERY NIGHT AT BEDTIME NEEDED 02/13/2018 03/13/2018 Inactive meloxicam 15 mg tablet RxNorm: 773475 TAKE ONE TABLET BY MOUTH DAILY 02/13/2018 08/11/2018 Active testosterone cypionate 200 mg/mL intramuscular kit RxNorm: 516639 1/2 Milliliter(s ) IM [id number] 02/03/2018 08/01/2018 Active testosterone cypionate 200 mg/mL intramuscular oil RxNorm: 885207 Milliliter(s) IM 02/03/2018 02/03/2018 Inactive prednisone 20 mg tablet RxNorm: 202806 2 Tablet(s) PO QAM 01/0901/13/2018 Inactive cefdinir 300 mg capsule RxNorm: 751976 1 Capsule(s) PO BID 01/18/2018 Inactive prednisone 20 mg tablet RxNorm: 500583 2 Tablet(s) PO QAM 01/0901/08/2018 Inactive cefdinir 300 mg capsule RxNorm: 645781 1 Capsule(s) PO BID 01/08/2018 Inactive Zithromax Z-Timothy 250 mg tablet RxNorm: 464181 1 Tablet(s) PO UD 01/07/2018 No Stop Date Active Kenalog 40 mg/mL suspension for injection RxNorm: 9504632 Milliliter(s) Inj 01/07/2018 01/07/2018 Inactive ceftriaxone 500 mg solution for injection RxNorm: 8009335 Inj 01/07/2018 01/07/2018 Inactive testosterone cypionate 200 mg/mL intramuscular oil RxNorm: 326953 1/2 Milliliter(s ) IM 01/05/2018 01/05/2018 Inactive hydrocodone 5 mg-acetaminophen 325 mg tablet RxNorm: 278643 1-2 Tablet(s) PO Q6 PRN 12/22/2017 02/17/2018 Inactive zolpidem 5 mg tablet RxNorm: 332011 1 Tablet(s) PO 30 min before QHS 12/15/2017 02/12/2018 Inactive testosterone cypionate 200 mg/mL intramuscular oil RxNorm: 010685 Milliliter(s) IM 12/15/2017 12/15/2017 Inactive testosterone cypionate 200 mg/mL intramuscular oil RxNorm: 615677 1/2 Milliliter(s ) IM 12/04/2017 12/04/2017 Inactive testosterone cypionate 200 mg/mL intramuscular oil RxNorm: 153942 1/2 Milliliter(s ) IM 11/17/2017 11/17/2017 Inactive potassium chloride ER 10 mEq capsule,extended release RxNorm: 465674 TAKE ONE CAPSULE BY MOUTH DAILY 11/11/20172018 Active testosterone cypionate 200 mg/mL intramuscular oil RxNorm: 545392 Milliliter(s) IM 10/22/2017 10/22/2017 Inactive zolpidem 5 mg tablet RxNorm: 705848 1 Tablet(s) PO 30 min before QHS 10/15/2017 10/14/2017 Inactive zolpidem 5 mg tablet RxNorm: 122812 1 Tablet(s) PO 30 min before QHS 10/15/2017 12/13/2017 Inactive Zithromax Z-Timothy 250 mg tablet RxNorm: 642276 1 Tablet(s) PO UD 10/07/2017 11/16/2017 Inactive testosterone cypionate 200 mg/mL intramuscular oil RxNorm: 738831 Milliliter(s) IM 10/06/2017 10/06/2017 Inactive Kenalog 40 mg/mL suspension for injection RxNorm: 5251108 Milliliter(s) Inj 10/06/2017 10/06/2017 Inactive Zithromax Z-Timothy 250 mg tablet RxNorm: 262962 1 Tablet(s) PO UD 10/06/2017 10/06/2017 Inactive testosterone cypionate 200 mg/mL intramuscular oil RxNorm: 543777 Milliliter(s) IM 09/23/2017 09/23/2017 Inactive testosterone cypionate 200 mg/mL intramuscular kit RxNorm: 598925 1/2 Milliliter(s ) IM [id number] 08/28/2017 02/02/2018 Inactive meloxicam 15 mg tablet RxNorm: 564723 TAKE ONE TABLET BY MOUTH DAILY 08/28/2017 02/12/2018 Inactive testosterone cypionate 200 mg/mL intramuscular oil RxNorm: 609541 Milliliter(s) IM 08/28/2017 08/28/2017 Inactive testosterone cypionate 200 mg/mL intramuscular oil RxNorm: 720142 1/2 Milliliter(s ) IM 08/12/2017 08/12/2017 Inactive meloxicam 15 mg tablet RxNorm: 206600 1 Tablet(s) PO daily 08/201708/27/2017 Inactive atorvastatin 40 mg tablet RxNorm: 265282 TAKE ONE TABLET BY MOUTH DAILY 07/30/2017 02/24/2018 Inactive furosemide 40 mg tablet RxNorm: 359474 TAKE ONE TABLET BY MOUTH DAILY 07/30/2017 02/24/2018 Inactive testosterone cypionate 200 mg/mL intramuscular oil RxNorm: 328481 1/2 Milliliter(s ) IM 07/28/2017 07/28/2017 Inactive testosterone cypionate 200 mg/mL intramuscular oil RxNorm: 669823 1/2 Milliliter(s ) IM 07/14/2017 07/14/2017 Inactive testosterone cypionate 200 mg/mL intramuscular oil RxNorm: 474888 1/2 Milliliter(s ) IM 06/26/2017 06/26/2017 Inactive hydrocodone 5 mg-acetaminophen 325 mg tablet RxNorm: 846938 1 Tablet(s) PO QHS and 1 tab PO daily PRN pain 06/09/2017 Inactive hydrocodone 5 mg-acetaminophen 325 mg tablet RxNorm: 636455 1 Tablet(s) PO daily 06/09/2017 06/18/2017 Inactive testosterone cypionate 200 mg/mL intramuscular oil RxNorm: 023563 1/2 Milliliter(s ) IM 06/09/2017 06/09/2017 Inactive testosterone cypionate 200 mg/mL intramuscular oil RxNorm: 714707 Milliliter(s) IM 05/27/2017 05/27/2017 Inactive testosterone cypionate 200 mg/mL intramuscular oil RxNorm: 075965 Milliliter(s) IM 05/13/2017 05/13/2017 Inactive potassium chloride ER 10 mEq capsule,extended release RxNorm: 938872 1 Capsule(s) PO daily 05/07/2017 11/02/2017 Inactive Vitamin D2 50,000 unit capsule RxNorm: 629147 1 Capsule(s) PO QW 05/06/2017 05/05/2017 Inactive take with OTC vitamin d 2,000 units QD testosterone cypionate 200 mg/mL intramuscular kit RxNorm: 289622 1/2 kit IM 2 x month 05/06/2017 08/27/2017 Inactive Vitamin D2 50,000 unit capsule RxNorm: 696341 1 Capsule(s) PO QW 05/06/2017 08/03/2017 Inactive take with OTC vitamin d 2,000 units QD testosterone cypionate 200 mg/mL intramuscular oil RxNorm: 102032 1/2 Milliliter(s ) IM 04/29/2017 04/29/2017 Inactive fluorouracil 5 % topical cream RxNorm: 574096 1 Application TOP BID 04/28/2017 05/07/2017 Inactive testosterone cypionate 200 mg/mL intramuscular kit RxNorm: 952791 1/2 IM 2 x month 04/28/2017 05/05/2017 Inactive Pamelor 10 mg capsule RxNorm: 285282 1 Capsule(s) PO daily No Start Date Active gabapentin 300 mg capsule RxNorm: 355642 6 Capsule(s) PO daily No Start Date Active cyclobenzaprine 5 mg tablet RxNorm: 362982 1 Tablet(s) PO as needed No Start Date Active diclofenac 1 % topical gel RxNorm: 514402 1 Gram(s) TOP as needed No Start Date Active meloxicam 15 mg tablet RxNorm: 113220 1 Tablet(s) PO daily No Start Date 07/30/2017 Inactive potassium chloride ER 10 mEq tablet,extended release RxNorm: 465163 1 Tablet(s) PO daily No Start Date 05/06/2017 Inactive hydrocodone 5 mg-acetaminophen 325 mg tablet RxNorm: 799865 1 Tablet(s) PO daily No Start Date 06/08/2017 Inactive furosemide 40 mg tablet RxNorm: 661727 1 Tablet(s) PO daily No Start Date 07/29/2017 Inactive atorvastatin 40 mg tablet RxNorm: 330191 1 Tablet(s) PO QHS No Start Date 07/29/2017 Inactive clopidogrel 75 mg tablet RxNorm: 537907 1 Tablet(s) PO daily No Start Date 03/16/2018 Inactive Medication Administered Medication Codes Instructions Start Date Status Kenalog 40 mg/mL suspension for injection RxNorm: 9575670 1Milliliter 04/07/2018 Active Kenalog 40 mg/mL suspension for injection RxNorm: 4999654 Milliliter 04/03/2018 No longer Active ceftriaxone 500 mg solution for injection RxNorm: 2907672 04/03/2018 No longer Active testosterone cypionate 200 mg/mL intramuscular oil RxNorm: 0716257 Milliliter 03/06/2018 No longer Active testosterone cypionate 200 mg/mL intramuscular oil RxNorm: 3831148 Milliliter 02/19/2018 No longer Active testosterone cypionate 200 mg/mL intramuscular oil RxNorm: 587699 Milliliter 02/03/2018 No longer Active Kenalog 40 mg/mL suspension for injection RxNorm: 5422915 Milliliter 01/07/2018 No longer Active ceftriaxone 500 mg solution for injection RxNorm: 1069879 01/07/2018 No longer Active testosterone cypionate 200 mg/mL intramuscular oil RxNorm: 388209 /2Milliliter 01/05/2018 No longer Active testosterone cypionate 200 mg/mL intramuscular oil RxNorm: 894106 Milliliter 12/15/2017 No longer Active testosterone cypionate 200 mg/mL intramuscular oil RxNorm: 244614 /2Milliliter 12/04/2017 No longer Active testosterone cypionate 200 mg/mL intramuscular oil RxNorm: 199860 /2Milliliter 11/17/2017 No longer Active testosterone cypionate 200 mg/mL intramuscular oil RxNorm: 122466 Milliliter 10/22/2017 No longer Active Kenalog 40 mg/mL suspension for injection RxNorm: 7415113 Milliliter 10/06/2017 No longer Active testosterone cypionate 200 mg/mL intramuscular oil RxNorm: 387868 Milliliter 10/06/2017 No longer Active testosterone cypionate 200 mg/mL intramuscular oil RxNorm: 725881 Milliliter 09/23/2017 No longer Active testosterone cypionate 200 mg/mL intramuscular oil RxNorm: 288614 Milliliter 08/28/2017 No longer Active testosterone cypionate 200 mg/mL intramuscular oil RxNorm: 819090 2Milliliter 08/12/2017 No longer Active testosterone cypionate 200 mg/mL intramuscular oil RxNorm: 019556 /2Milliliter 07/28/2017 No longer Active testosterone cypionate 200 mg/mL intramuscular oil RxNorm: 708075 2Milliliter 07/14/2017 No longer Active testosterone cypionate 200 mg/mL intramuscular oil RxNorm: 165496 /2Milliliter 06/26/2017 No longer Active testosterone cypionate 200 mg/mL intramuscular oil RxNorm: 556773 2Milliliter 06/09/2017 No longer Active testosterone cypionate 200 mg/mL intramuscular oil RxNorm: 103018 Milliliter 05/27/2017 No longer Active testosterone cypionate 200 mg/mL intramuscular oil RxNorm: 197304 Milliliter 05/13/2017 No longer Active testosterone cypionate 200 mg/mL intramuscular oil RxNorm: 957757 2Milliliter 04/29/2017 No longer Active Immunizations Vaccine Codes Date Status Influenza CVX: 141 11/17/2017 completed Assessments Condition Codes Effective Dates Sciatica, left side ICD-10: M54.32 ICD-9: 724.3 04/07/2018 Low back pain ICD-10: M54.5 ICD-9: 724.2 04/07/2018 Acute recurrent maxillary sinusitis ICD-10: J01.01 ICD-9: 461.0 04/03/2018 Cough ICD-10: R05 ICD-9: 786.2 04/03/2018 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 ICD-9: 257.2 03/20/2018 Pain in left shoulder ICD-10: M25.512 ICD-9: 719.41 03/20/2018 Cellulitis of face ICD-10: L03.211 ICD-9: 682.0 03/20/2018 Mixed hyperlipidemia ICD-10: E78.2 ICD-9: 272.2 03/10/2018 Spinal stenosis, lumbosacral region ICD-10: M48.07 ICD-9: 724.02 03/10/2018 Other malaise ICD-10: R53.81 ICD-9: 780.79 01/07/2018 Acute laryngopharyngitis ICD-10: J06.0 ICD-9: 465.0 01/07/2018 Other allergic rhinitis ICD-10: J30.89 ICD-9: 477.8 01/07/2018 Spinal stenosis, cervical region ICD-10: M48.02 [...] ICD-9: 380.4 03/17/2017 Atherosclerotic heart disease of [place] coronary artery without angina pectoris ICD-10: I25.10 ICD-9: 414.00 03/14/2017 Chronic pain syndrome ICD-10: G89.4 ICD-9: 338.4 03/14/2017 Personal history of other diseases of the circulatory system ICD-10: Z86.79 ICD-9: V12.59 03/14/2017 Presbycusis, bilateral ICD-10: H91.13 ICD-9: 388.01 03/14/2017 Reason For Visit Reason For Visit Effective Dates Notes back pain 04/07/2018 fever 04/03/2018 skin lesion 03/20/2018 back pain 03/10/2018 sinus congestion 01/07/2018 back pain 12/22/2017 back pain 12/15/2017 Annual Medicare Wellness Exam 11/27/2017 shoulder pain 11/17/2017 sinus congestion 10/06/2017 shoulder pain 07/24/2017 abnormal test results 07/14/2017 fatigue 06/09/2017 fatigue 04/28/2017 hyperlipidemia 03/14/2017 R ear Results Observation Observation Code Item Item Code Result Date Testosterone Mlm500 Testo 375.1 ng/dL 03/02/2018 Cbc With Differential [...] 25.6 pg 03/02/2018 Cbc With Differential Ord2 [place]% 7.9 % 03/02/2018 Cbc With Differential Ord2 [...] 1.41 K/ul 03/02/2018 Cbc With Differential Ord2 [place] ABS# 0.8 K/ul 03/02/2018 Cbc With Differential Ord2 Eos ABS# 0.2 K/ul 03/02/2018 Cbc With Differential Ord2 Baso ABS# 0.1 K/ul 03/02/2018 Influenza A+B Gtq360 Influ A+B Negative 01/08/2018 C A/B FLU [id number] Influenza A Scr TNP:Improper Specimen 01/07 C A/B FLU [id number] Influenza B Scr TNP:Improper Specimen 01/07 C A/B FLU 2352202 Influenza Intrp B AG: PRID:PT:NOSE:NOM:IF TNP:Improper Specimen 01/07/2018 C A/B FLU [id number] IC OK? TNP:Improper Specimen 01/07/2018 Hepatic Hcu096 ALBUMIN 3.7 g/dL 08/06/2017 Hepatic Xhz709 TPRO 5.9 g/dL 08/06/2017 Hepatic Lku735 GLOB 2.2 g/dL 08/06/2017 Hepatic Ryp508 A/G Ratio 1.7 Ratio 08/06/2017 Hepatic Ttr109 ALK PHOS 46 U/L 08/06/2017 Hepatic Fwo404 ALT(SGPT) 9 U/L 08/06/2017 Hepatic Flj900 AST(SGOT) 13 U/L 08/06/2017 Hepatic Zty892 BILI T 0.6 mg/dL 08/06/2017 Hepatic Vwp379 BILI D 0.2 mg/dL 08/06/2017 Hepatic Rkl190 BILI I 0.4 mg/dL 08/06/2017 Testosterone Hvq554 Testo 474.5 ng/dL 08/06/2017 Cbc With Differential [...] 28.5 pg 08/06/2017 Cbc With Differential Ord2 [place]% 11.2 % 08/06/2017 Cbc With Differential Ord2 [...] 1.33 K/ul 08/06/2017 Cbc With Differential Ord2 [place] ABS# 0.6 K/ul 08/06/2017 Cbc With Differential Ord2 Eos ABS# 0.3 K/ul 08/06/2017 Cbc With Differential Ord2 Baso ABS# 0.1 K/ul 08/06/2017 Comp Metabolic Mqo372 NA 140 mEq/L 06/02/2017 Comp Metabolic Jco729 K 3.8 mEq/L 06/02/2017 Comp Metabolic Wvc519 CL 102 mEq/L 06/02/2017 Comp Metabolic Mla542 CO2 30.0 mEq/L 06/02/2017 Comp Metabolic Ziq513 ANION GAP 12 06/02/2017 Comp Metabolic Zrr737 GLUCOSE 100 mg/dL 06/02/2017 Comp Metabolic Itl756 Creat 1.1 mg/dL 06/02/2017 Comp Metabolic Kbe425 eGFR 69 ml/min/1.73m2 06/02/2017 Comp Metabolic Mcw983 BUN 15 mg/dL 06/02/2017 Comp Metabolic Fkv660 B/C Ratio 13.4 Ratio 06/02/2017 Comp Metabolic Txw244 CALCIUM 8.6 mg/dL 06/02/2017 Comp Metabolic Ybr157 ALK PHOS 63 U/L 06/02/2017 Comp Metabolic Rey706 AST(SGOT) 17 U/L 06/02/2017 Comp Metabolic Jpi375 ALT(SGPT) 12 U/L 06/02/2017 Comp Metabolic Wix065 BILI T 0.5 mg/dL 06/02/2017 Comp Metabolic Kci845 ALBUMIN 3.9 g/dL 06/02/2017 Comp Metabolic Pqw646 TPRO 6.1 g/dL 06/02/2017 Comp Metabolic Kaq099 GLOB 2.2 g/dL 06/02/2017 Comp Metabolic Rhe309 A/G Ratio 1.8 Ratio 06/02/2017 Comp Metabolic Osy552 Osmo 280 mOsmo 06/02/2017 Vitamin D 25 Oh Ska4945 VITAMIN D, 25 HYDROXY 40.03 ng/mL Cbc [...] 29.7 pg 06/02/2017 Cbc With Differential Ord2 [place]% 10.5 % 06/02/2017 Cbc With Differential Ord2 [...] 1.52 K/ul 06/02/2017 Cbc With Differential Ord2 [place] ABS# 0.6 K/ul 06/02/2017 Cbc With Differential Ord2 Eos ABS# 0.2 K/ul 06/02/2017 Cbc With Differential Ord2 Baso ABS# 0.1 K/ul 06/02/2017 Testosterone Mjc400 Testo 198.4 ng/dL 04/29/2017 Vitamin D 25 Oh Tyj5192 VITAMIN D, 25 HYDROXY 29.25 ng/mL Lipid [...] lips 11/17/2017 None Full Exam - General 1995 Ears/Nose/Throat lips/teeth/gingiva Overall: normal dentition 11/17/2017 None [...] CPT-4: J0696 04/03/2018 THER/PROPH/DIAG INJ SC/IM CPT-4: 23640 03/20/2018 THER/PROPH/DIAG INJ SC/IM CPT-4: 17196 03/06/2018 THER/PROPH/DIAG INJ SC/IM CPT-4: 12028 02/19/2018 THER/PROPH/DIAG INJ SC/IM CPT-4: 12408 02/03/2018 THER/PROPH/DIAG INJ SC/IM CPT-4: 37249 01/07/2018 TRIAMCINOLONE ACET INJ NOS CPT-4: J3301 01/07/2018 ROCEPHIN, PER 250 MG CPT-4: J0696 01/07/2018 THER/PROPH/DIAG INJ SC/IM CPT-4: 31486 01/05/2018 THER/PROPH/DIAG INJ SC/IM CPT-4: 05797 12/15/2017 THER/PROPH/DIAG INJ SC/IM CPT-4: 99567 12/04/2017 PPPS, SUBSEQ VISIT CPT -4: G0439 11/27/2017 ADMIN INFLUENZA VIRUS VAC CPT-4: G0008 11/17/2017 FLU VAC NO PRSV 4 FATOU 3 YRS+ CPT-4: 51101 11/17/2017 THER/PROPH/DIAG INJ SC/IM CPT-4: 50569 11/17/2017 THER/PROPH/DIAG INJ SC/IM CPT-4: 06018 10/22/2017 THER/PROPH/DIAG INJ SC/IM CPT-4: 69737 10/06/2017 TRIAMCINOLONE ACET INJ NOS CPT-4: J3301 10/06/2017 THER/PROPH/DIAG INJ SC/IM CPT-4: 85210 09/23/2017 THER/PROPH/DIAG INJ SC/IM CPT-4: 83970 08/28/2017 THER/PROPH/DIAG INJ SC/IM CPT-4: 13931 08/12/2017 THER/PROPH/DIAG INJ SC/IM CPT-4: 98055 07/28/2017 THER/PROPH/DIAG INJ SC/IM CPT-4: 01155 07/14/2017 THER/PROPH/DIAG INJ SC/IM CPT-4: 53340 06/26/2017 THER/PROPH/DIAG INJ SC/IM CPT-4: 03817 06/09/2017 THER/PROPH/DIAG INJ SC/IM CPT-4: 31412 05/27/2017 THER/PROPH/DIAG INJ SC/IM CPT-4: 45556 05/13/2017 THER/PROPH/DIAG INJ SC/IM CPT-4: 36585 04/29/2017 Vital Signs Date Vital 04/07/2018 Blood Pressure 1: 126/74 Code : 8480-6 BMI: 29.0 Code : 43046-1 Heart Rate 1 : 75 bpm Height: 5'10" SpO2: 98% Weight: 202 lbs 04/03/2018 Blood Pressure 1: 130/74 Code : 8480-6 BMI: 29.0 Code : 22724-1 Heart Rate 1 : 89 bpm Height: 5'10" SpO2: 98% Temperature: 37.4 (C) / 99.4 (F) Weight: 202 lbs 03/20/2018 Blood Pressure 1: 122/60 Code : 8480-6 Heart Rate 1: 76 bpm Height: 5'10" SpO2: 96% Weight: 03/10/2018 Blood Pressure 1: 120/70 Code : 8480-6 BMI: 29.0 Code : 25383-5 Heart Rate 1 : 82 bpm Height: 5'10" SpO2: 95% Weight: 202 lbs 01/07/2018 Blood Pressure 1: 126/66 Code : 8480-6 BMI: 30.1 Code : 66349-8 Heart Rate 1 : 75 bpm Height: 5'10" SpO2: 97% Temperature: 36.5 (C) / 97.7 (F) Weight: 210 lbs 12/22/2017 Blood Pressure 1: 124/70 Code : 8480-6 BMI: 29.7 Code : 94836-7 Heart Rate 1 : 84 bpm Height: 5'10" SpO2: 94% Weight: 207 lbs 12/15/2017 Blood Pressure 1: 122/82 Code : 8480-6 BMI: 30.0 Code : 72791-9 Heart Rate 1 : 82 bpm Height: 5'10" SpO2: 93% Weight: 209 lbs 11/27/2017 Blood Pressure 1: 132/68 Code : 8480-6 BMI: 29.3 Code : 90767-9 Heart Rate 1 : 71 bpm Height: 5'10" SpO2: 97% Waist Measure (cm): 97 cm Weight: 204 lbs 11/17/2017 Blood Pressure 1: 130/80 Code : 8480-6 BMI: 29.3 Code : 65803-9 Heart Rate 1 : 73 bpm Height: 5'10" SpO2: 99% Weight: 204 lbs 10/06/2017 Blood Pressure 1: 124/60 Code : 8480-6 BMI: 28.8 Code : 23267-7 Heart Rate 1 : 70 bpm Height: 5'10" SpO2: 98% Weight: 201 lbs 07/24/2017 Blood Pressure 1: 118/70 Code : 8480-6 BMI: 29.3 Code : 58978-4 Heart Rate 1 : 82 bpm Height: 5'10" SpO2: 96% Weight: 204 lbs 07/14/2017 Blood Pressure 1: 118/72 Code : 8480-6 BMI: 29.1 Code : 95767-4 Heart Rate 1 : 83 bpm Height: 5'10" SpO2: 98% Weight: 203 lbs 06/09/2017 Blood Pressure 1: 120/74 Code : 8480-6 BMI: 29.3 Code : 56616-1 Heart Rate 1 : 91 bpm Height: 5'10" SpO2: 99% Weight: 204 lbs 04/28/2017 Blood Pressure 1: 118/68 Code : 8480-6 BMI: 28.8 Code : 20035-6 Heart Rate 1 : 74 bpm Height: 5'10" SpO2: 96% Weight: 201 lbs 03/14/2017 Blood Pressure 1: 114/74 Code : 8480-6 BMI: 28.6 Code : 21494-1 Heart Rate 1 : 77 bpm Height: 5'10" SpO2: 97% Weight: 199 lbs Functional Status No Functional Status data History of Present Illness Symptom Name Status Result Effective Date Notes Location in the left lower back area [...] Encounters Encounter Performer Location Codes Date ( [id number] EST. PATIENT, LEVEL III Diagnosis: Low back pain[ICD10: M54.5] Diagnosis: Sciatica, left side[ICD10: M54.32] Elise Hollis MD, [facility] [place] CPT-4: 46325 04/07/2018 ([id number]) [id number] EST. PATIENT, LEVEL III Diagnosis: Acute recurrent maxillary sinusitis[ICD10: J01.01] Diagnosis: Cough[ICD10: R05] Elise Hollis MD, [facility] [place] CPT-4: 27289 04/03/2018 [id number] EST. PATIENT, LEVEL III Diagnosis: Cellulitis of face[ICD10: L03.211] Diagnosis: Pain in left shoulder[ICD10: M25.512] Diagnosis: Testicular hypofunction[ICD10: E29.1] Elise Hollis MD, [facility] [place] CPT-4: 51070 03/20/2018 ([id number]) 27500 EST. PATIENT, LEVEL IV Diagnosis: Low back pain[ICD10: M54.5] Diagnosis: Mixed hyperlipidemia[ICD10: E78.2] Diagnosis: Spinal stenosis, lumbosacral region[ICD10: M48.07] Diagnosis: Testicular hypofunction[ICD10: E29.1] Leora Hollis MD, [facility] [place] CPT-4: 11132 03/10/2018 [id number] EST. PATIENT, LEVEL III Diagnosis: Other malaise[ICD10: R53.81] Diagnosis: Acute laryngopharyngitis[ICD10: J06.0] Diagnosis: Other allergic rhinitis[ICD10: J30.89] Sapphire Hollis MD, [facility] [place] CPT-4: 12447 01/07/2018 ([id number]) [id number] EST. PATIENT, LEVEL III Diagnosis: Spinal stenosis, lumbosacral region[ICD10: M48.07] Diagnosis: Spinal stenosis, cervical region[ICD10: M48.02] Elise Hollis MD, [facility] CPT-4: 73960 12/22/2017 ([id number]) 25022 EST. 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 PATIENT, LEVEL III Diagnosis: Mixed hyperlipidemia[ICD10: E78.2] Diagnosis: Other insomnia[ICD10: G47.09] Leora Hollis MD, [facility] CPT- 4: 62838 11/17/2017 [id number] EST. PATIENT, LEVEL III Diagnosis: Acute laryngopharyngitis[ICD10: J06.0] Diagnosis: Other allergic rhinitis[ICD10: J30.89] Sapphire Hollis MD, [facility] CPT-4: 01213 10/06/2017 22499 EST. PATIENT, LEVEL III Diagnosis: Pain in left shoulder[ICD10: M25.512] Sapphire Hollis MD, [facility] CPT-4: 50375 07/24/2017 ([id number]) 38604 EST. 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] Leora Hollis MD, [facility] CPT-4: 10236 04/28/2017 ([id number]) Miscellaneous no charge Diagnosis: Impacted cerumen, bilateral[ICD10: H61.23] [facility] CPT-4: 36411 03/17/2017 ([id number]) OFFICE VISIT, NEW - LEVEL 4 Diagnosis: Mixed hyperlipidemia[ICD10: E78.2] Diagnosis: Chronic pain syndrome[ICD10: G89.4] Diagnosis: Presbycusis, bilateral[ICD10: H91.13] Diagnosis: Impacted cerumen, bilateral[ICD10: H61.23] 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 Pt is to call if the symptoms do not improve or if they worsen. 04/07/2018 Patient Education: Patient Medication Summary Completed 04/07/2018 Patient Education: Back Pain Completed 04/07/2018 Visit Plan: Sinusitis - Pt has acute infection - pain in face, maxillary region, Pt informed to use decongestant, RX given to patient, sinus rinses also recommended. Call if symptoms do not show improvement. 04/03/2018 Appointment: Elise Castillo WPtel: [address] [place], [place] [phone] (15 min) Moderate 04/03/2018 Patient Education: Patient [...] Dr Back 03/20/2018 Appointment: Elise Castillo WPtel: [phone] [phone] [place] (15 min) Moderate 03/20/2018 Appointment: (15 min) Moderate 03/20/2018 Patient Education: Patient Medication Summary Completed 03/20/2018 Visit Plan: Spinal stenosis with back pain - refilled hydrocodone- keep appt with Graphics Coordinator for treatment of stenosis of arteries, then pt most-likely to have surgical intervention of spine. PAD - pt will need surgical intervention with stenting. Testicular hypofunction - continue with testosterone. 03/10/2018 Appointment: Leora Hollis WPtel: [phone] [facility] [place] (15 min) Moderate 03/10/2018 Patient Education: Patient Medication Summary Completed 03/10/2018 Patient Education: Back Pain Completed 03/10/2018 Patient Education: Cholesterol Management Completed 03/10/2018 Appointment: Leora Hollis WPtel: [phone] [facility] [place] (15 min) Moderate 03/09/2018 Appointment: Injection [...] Appointment: Sapphire Oneil WPtel: [facility] (15 min) Moderate 01/07/2018 [...] of plan. 12/22/2017 Appointment: Elise Castillo WPtel: [address] [place], [place] [phone] (15 min) Moderate 12/22/2017 Patient Education: Patient Medication Summary Completed 12/22/2017 Visit Plan: Neck and low back pain -will schedule MRI lumbar and cervical spine for further evaluation and proceed as indicated- patient verbalized understanding of plan. 12/15/2017 Appointment: Elise Castillo WPtel: [phone] (15 min) Moderate 12/15/2017 Patient Education: Patient Medication Summary Completed 12/15/2017 Patient Education: Back Pain Completed 12/15/2017 Care Plan: MRI LUMBAR SPINE W/O DYE LOINC : 84862-2 Pending 12/15/2017 Care Plan: MRI NECK SPINE W/O DYE LOINC : 49067-0 Pending 12/15/2017 Appointment: Injection 12/04/2017 Patient Education: [...] care surrogate. 11/27/2017 Appointment: Sapphire Oneil WPtel: [facility] [facility] - Annual Wellness Visit 11/27/2017 [...] to sleep 11/17/2017 Appointment: Leora Hollis WPtel: [facility] [place] (15 min) Moderate 11/17/2017 Patient Education: Patient [...] allergy spray. 10/06/2017 Appointment: Leora Hollis [facility]el[phone] [facility] [place] (15 min) Moderate 10/06/2017 Appointment: Sapphire Oneil [facility]Ptel[phone] [place] (15 min) Moderate 10/06/2017 Patient Education: [...] plan. 07/24/2017 Appointment: Sapphire Oneil WPtel: [phone] [place] (30 min) Complex 07/24/2017 Patient [...] to medications. 07/14/2017 Appointment: Le[facility] Holl[phone] [facility] (15 min) Moderate 07/14/2017 Patient Education: Patient Medication Summary Completed 07/14/2017 Appointment: Leora Hollis [facility]Ptel: [phone] [facility] (15 min) Moderate 07/10/2017 Appointment: Injection 06/26/2017 [...] at night 06/09/2017 Appointment: Leora Hollis WPtel: [phone] [facility] [place] (30 min) Complex 06/09/2017 Patient Education: [...] of 15 04/28/2017 Appointment: Leora Hollis WPtel: [address] [id number] (30 min) Complex 04/28/2017 Patient Education: [...] wax removal 03/14/2017 Appointment: Leora Hollis WPtel: [facility] New Patient 03/14/2017 Patient Education: Patient Medication Summary Completed 03/14/2017 Instructions Comment CALL FRIDAY IF NOT BETTER AND WE CAN SEND IN A SHORT COURSE OF PREDNISONE . Sciatica-left- kenalog injection today in the office- exercises discussed with the patient, pt to continue with antiinflammatories. Pt is to call if the symptoms do not improve or if they worsen. . Spinal stenosis with back pain - refilled hydrocodone- keep appt with Graphics Coordinator for treatment of stenosis of arteries, [...] pain-rotator cuff tear -schedule appt with Dr Melissa pérez and kenalog augmentin to dillons call friday if not starting to feel better . Sinusitis - Pt has acute infection - pain in face, maxillary region, Pt informed to use decongestant, RX given to patient, sinus rinses also recommended. Call if symptoms do not show improvement. . URI - Pt advised to increase [...] epworth sleepiness scale score of 15 . URI - Pt advised to increase [...] on Friday morning for ear wax removal REFER FOR PHYSICAL THERAPY AT [facility] -HE HAS A PT HE HAS [...]
--- OUTSIDE RECORDS SUMMARY | 2018-06-12 09:08 | XMS REPORT | CCD ---
Author Author [facility] Organization [facility] Address [address] [place] [address] Phone Care Team Providers Care Clinical Transplant Coordinator Name Role Phone PP Unavailable CCM Unavailable Summary Purpose Interface Exchange Insurance Providers Payer name Policy type / Coverage type Covered constitution party ID Effective Begin Date Effective End Date WPS Medicare Part B Medicare Part B [id number] 2017 Unknown [facility] Medicare Part B [id number] 2017 Unknown Family history Father Diagnosis Age At Onset Heart Attack Unknown Social History Social History Element Codes Description Effective Dates Marital status Unknown 03/14/2017 Number of children Unknown 2 03/14/[address]: 3884149 Former smoker Quit 11/03/00; smoke 1/2 pack/day x15 years 03/14/[address]: 172948920 Never drinks alcohol 03/14/2017 Allergies, Adverse Reactions, [...] ICD-9: 724.2 ICD-10: M54.5 Active 12/15/2017 Unknown Mixed hyperlipidemia ICD-9: 272.2 ICD-10: E78.2 [...] ICD-9: 238.4 ICD-10: D75.1 Active 04/28/2017 Unknown Impacted cerumen, bilateral ICD-9: 380.4 ICD-10: H61.23 Active 03/14/2017 Unknown 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 [...] pain ICD-9: 724.2 ICD-10: M54.5 12/15/2017 Active Mixed hyperlipidemia ICD-9: 272.2 ICD-10: E78.2 [...] polycythemia ICD-9: 238.4 ICD-10: D75.1 04/28/2017 Active Impacted cerumen, bilateral ICD-9: 380.4 ICD-10: H61.23 03/14/2017 Active 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 ICD-10: I25.10 03/14/2017 Active Chronic pain syndrome ICD-9: 338.4 ICD-10: G89.4 03/14/2017 Active Personal history of other diseases of the circulatory system ICD-9: V12.59 ICD-10: Z86.79 03/14/2017 Active Presbycusis, 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 03/14/2017 Active Medications Medication Codes Instructions Start Date Stop Date Status Fill Instructions Augmentin 875 mg-125 mg tablet RxNorm: 722025 1 Tablet(s) PO BID 04/03/2018 04/09/2018 Active Kenalog 40 mg/mL suspension for injection RxNorm: 2087911 Milliliter(s) Inj 04/03/2018 04/03/2018 Inactive ceftriaxone 500 mg solution for injection RxNorm: 0100702 Inj 04/03/2018 04/03/2018 Inactive atorvastatin 40 mg tablet RxNorm: 173534 TAKE ONE TABLET BY MOUTH DAILY 03/20/2018 09/10/2019 Active hydrocodone 5 mg-acetaminophen 325 mg tablet RxNorm: 390086 1-2 Tablet(s) PO Q6 PRN 03/20/2018 04/18/2018 Active mupirocin 2 % topical ointment RxNorm: 624445 1 Application TOP BID 03/20/2018 03/26/2018 Inactive Keflex 500 mg capsule RxNorm: 251114 1 Capsule(s) PO TID 201803/26/2018 Inactive zolpidem 5 mg tablet RxNorm: 941373 Tablet(s) TAKE ONE TABLET BY MOUTH EVERY NIGHT AT BEDTIME NEEDED 03/18/2018 Active clopidogrel 75 mg tablet RxNorm: 821489 1 Tablet(s) PO daily 04/15/2018 Active furosemide 40 mg tablet RxNorm: 058949 TAKE ONE TABLET BY MOUTH DAILY 03/17/2018 09/12/2018 Active testosterone cypionate 200 mg/mL intramuscular oil RxNorm: 6428874 Milliliter(s) IM 03/06/2018 03/06/2018 Inactive testosterone cypionate 200 mg/mL intramuscular oil RxNorm: 6453504 Milliliter(s) IM 02/19/2018 02/19/2018 Inactive hydrocodone 5 mg-acetaminophen 325 mg tablet RxNorm: 431327 1-2 Tablet(s) PO Q6 PRN 02/18/2018 03/09/2018 Inactive zolpidem 5 mg tablet RxNorm: 360545 TAKE ONE TABLET BY MOUTH EVERY NIGHT AT BEDTIME NEEDED 02/13/2018 03/13/2018 Inactive meloxicam 15 mg tablet RxNorm: 369455 TAKE ONE TABLET BY MOUTH DAILY 02/13/2018 08/11/2018 Active testosterone cypionate 200 mg/mL intramuscular kit RxNorm: 219331 1/2 Milliliter(s ) IM [id number] 02/03/2018 08/01/2018 Active testosterone cypionate 200 mg/mL intramuscular oil RxNorm: 971870 Milliliter(s) IM 02/03/2018 02/03/2018 Inactive prednisone 20 mg tablet RxNorm: 734219 2 Tablet(s) PO QAM 01/0901/13/2018 Inactive cefdinir 300 mg capsule RxNorm: 746130 1 Capsule(s) PO BID 01/18/2018 Inactive prednisone 20 mg tablet RxNorm: 401740 2 Tablet(s) PO QAM 01/0901/08/2018 Inactive cefdinir 300 mg capsule RxNorm: 476641 1 Capsule(s) PO BID 01/08/2018 Inactive Zithromax Z-Timothy 250 mg tablet RxNorm: 652831 1 Tablet(s) PO UD 01/07/2018 No Stop Date Active Kenalog 40 mg/mL suspension for injection RxNorm: 3841675 Milliliter(s) Inj 01/07/2018 01/07/2018 Inactive ceftriaxone 500 mg solution for injection RxNorm: 2083081 Inj 01/07/2018 01/07/2018 Inactive testosterone cypionate 200 mg/mL intramuscular oil RxNorm: 088290 1/2 Milliliter(s ) IM 01/05/2018 01/05/2018 Inactive hydrocodone 5 mg-acetaminophen 325 mg tablet RxNorm: 726784 1-2 Tablet(s) PO Q6 PRN 12/22/2017 02/17/2018 Inactive zolpidem 5 mg tablet RxNorm: 383180 1 Tablet(s) PO 30 min before QHS 12/15/2017 02/12/2018 Inactive testosterone cypionate 200 mg/mL intramuscular oil RxNorm: 724763 Milliliter(s) IM 12/15/2017 12/15/2017 Inactive testosterone cypionate 200 mg/mL intramuscular oil RxNorm: 250967 1/2 Milliliter(s ) IM 12/04/2017 12/04/2017 Inactive testosterone cypionate 200 mg/mL intramuscular oil RxNorm: 597931 1/2 Milliliter(s ) IM 11/17/2017 11/17/2017 Inactive potassium chloride ER 10 mEq capsule,extended release RxNorm: 513555 TAKE ONE CAPSULE BY MOUTH DAILY 11/11/20172018 Active testosterone cypionate 200 mg/mL intramuscular oil RxNorm: 956549 Milliliter(s) IM 10/22/2017 10/22/2017 Inactive zolpidem 5 mg tablet RxNorm: 263712 1 Tablet(s) PO 30 min before QHS 10/15/2017 10/14/2017 Inactive zolpidem 5 mg tablet RxNorm: 213307 1 Tablet(s) PO 30 min before QHS 10/15/2017 12/13/2017 Inactive Zithromax Z-Timothy 250 mg tablet RxNorm: 885339 1 Tablet(s) PO UD 10/07/2017 11/16/2017 Inactive testosterone cypionate 200 mg/mL intramuscular oil RxNorm: 956505 Milliliter(s) IM 10/06/2017 10/06/2017 Inactive Kenalog 40 mg/mL suspension for injection RxNorm: 2230501 Milliliter(s) Inj 10/06/2017 10/06/2017 Inactive Zithromax Z-Timothy 250 mg tablet RxNorm: 585817 1 Tablet(s) PO UD 10/06/2017 10/06/2017 Inactive testosterone cypionate 200 mg/mL intramuscular oil RxNorm: 801718 Milliliter(s) IM 09/23/2017 09/23/2017 Inactive testosterone cypionate 200 mg/mL intramuscular kit RxNorm: 843598 1/2 Milliliter(s ) IM [id number] 08/28/2017 02/02/2018 Inactive meloxicam 15 mg tablet RxNorm: 181447 TAKE ONE TABLET BY MOUTH DAILY 08/28/2017 02/12/2018 Inactive testosterone cypionate 200 mg/mL intramuscular oil RxNorm: 158257 Milliliter(s) IM 08/28/2017 08/28/2017 Inactive testosterone cypionate 200 mg/mL intramuscular oil RxNorm: 881779 1/2 Milliliter(s ) IM 08/12/2017 08/12/2017 Inactive meloxicam 15 mg tablet RxNorm: 754788 1 Tablet(s) PO daily 08/201708/27/2017 Inactive atorvastatin 40 mg tablet RxNorm: 438198 TAKE ONE TABLET BY MOUTH DAILY 07/30/2017 02/24/2018 Inactive furosemide 40 mg tablet RxNorm: 284528 TAKE ONE TABLET BY MOUTH DAILY 07/30/2017 02/24/2018 Inactive testosterone cypionate 200 mg/mL intramuscular oil RxNorm: 370035 1/2 Milliliter(s ) IM 07/28/2017 07/28/2017 Inactive testosterone cypionate 200 mg/mL intramuscular oil RxNorm: 948010 1/2 Milliliter(s ) IM 07/14/2017 07/14/2017 Inactive testosterone cypionate 200 mg/mL intramuscular oil RxNorm: 116275 1/2 Milliliter(s ) IM 06/26/2017 06/26/2017 Inactive hydrocodone 5 mg-acetaminophen 325 mg tablet RxNorm: 671767 1 Tablet(s) PO QHS and 1 tab PO daily PRN pain 06/09/2017 Inactive hydrocodone 5 mg-acetaminophen 325 mg tablet RxNorm: 122878 1 Tablet(s) PO daily 06/09/2017 06/18/2017 Inactive testosterone cypionate 200 mg/mL intramuscular oil RxNorm: 072996 1/2 Milliliter(s ) IM 06/09/2017 06/09/2017 Inactive testosterone cypionate 200 mg/mL intramuscular oil RxNorm: 655553 Milliliter(s) IM 05/27/2017 05/27/2017 Inactive testosterone cypionate 200 mg/mL intramuscular oil RxNorm: 635606 Milliliter(s) IM 05/13/2017 05/13/2017 Inactive potassium chloride ER 10 mEq capsule,extended release RxNorm: 323315 1 Capsule(s) PO daily 05/07/2017 11/02/2017 Inactive Vitamin D2 50,000 unit capsule RxNorm: 110807 1 Capsule(s) PO QW 05/06/2017 05/05/2017 Inactive take with OTC vitamin d 2,000 units QD testosterone cypionate 200 mg/mL intramuscular kit RxNorm: 728733 1/2 kit IM 2 x month 05/06/2017 08/27/2017 Inactive Vitamin D2 50,000 unit capsule RxNorm: 668644 1 Capsule(s) PO QW 05/06/2017 08/03/2017 Inactive take with OTC vitamin d 2,000 units QD testosterone cypionate 200 mg/mL intramuscular oil RxNorm: 799651 1/2 Milliliter(s ) IM 04/29/2017 04/29/2017 Inactive fluorouracil 5 % topical cream RxNorm: 147110 1 Application TOP BID 04/28/2017 05/07/2017 Inactive testosterone cypionate 200 mg/mL intramuscular kit RxNorm: 135467 1/2 IM 2 x month 04/28/2017 05/05/2017 Inactive Pamelor 10 mg capsule RxNorm: 694373 1 Capsule(s) PO daily No Start Date Active gabapentin 300 mg capsule RxNorm: 921507 6 Capsule(s) PO daily No Start Date Active cyclobenzaprine 5 mg tablet RxNorm: 369118 1 Tablet(s) PO as needed No Start Date Active diclofenac 1 % topical gel RxNorm: 101980 1 Gram(s) TOP as needed No Start Date Active meloxicam 15 mg tablet RxNorm: 627897 1 Tablet(s) PO daily No Start Date 07/30/2017 Inactive potassium chloride ER 10 mEq tablet,extended release RxNorm: 206272 1 Tablet(s) PO daily No Start Date 05/06/2017 Inactive hydrocodone 5 mg-acetaminophen 325 mg tablet RxNorm: 207615 1 Tablet(s) PO daily No Start Date 06/08/2017 Inactive furosemide 40 mg tablet RxNorm: 372287 1 Tablet(s) PO daily No Start Date 07/29/2017 Inactive atorvastatin 40 mg tablet RxNorm: 696978 1 Tablet(s) PO QHS No Start Date 07/29/2017 Inactive clopidogrel 75 mg tablet RxNorm: 926728 1 Tablet(s) PO daily No Start Date 03/16/2018 Inactive Medication Administered Medication Codes Instructions Start Date Status Kenalog 40 mg/mL suspension for injection RxNorm: 4592367 Milliliter 04/03/2018 No longer Active ceftriaxone 500 mg solution for injection RxNorm: 9065090 04/03/2018 No longer Active testosterone cypionate 200 mg/mL intramuscular oil RxNorm: 6594751 Milliliter 03/06/2018 No longer Active testosterone cypionate 200 mg/mL intramuscular oil RxNorm: 3082107 Milliliter 02/19/2018 No longer Active testosterone cypionate 200 mg/mL intramuscular oil RxNorm: 988913 Milliliter 02/03/2018 No longer Active Kenalog 40 mg/mL suspension for injection RxNorm: 5510076 Milliliter 01/07/2018 No longer Active ceftriaxone 500 mg solution for injection RxNorm: 6703050 01/07/2018 No longer Active testosterone cypionate 200 mg/mL intramuscular oil RxNorm: 655162 /2Milliliter 01/05/2018 No longer Active testosterone cypionate 200 mg/mL intramuscular oil RxNorm: 588308 Milliliter 12/15/2017 No longer Active testosterone cypionate 200 mg/mL intramuscular oil RxNorm: 089042 /2Milliliter 12/04/2017 No longer Active testosterone cypionate 200 mg/mL intramuscular oil RxNorm: 612418 /2Milliliter 11/17/2017 No longer Active testosterone cypionate 200 mg/mL intramuscular oil RxNorm: 178858 Milliliter 10/22/2017 No longer Active Kenalog 40 mg/mL suspension for injection RxNorm: 0420959 Milliliter 10/06/2017 No longer Active testosterone cypionate 200 mg/mL intramuscular oil RxNorm: 240717 Milliliter 10/06/2017 No longer Active testosterone cypionate 200 mg/mL intramuscular oil RxNorm: 982989 Milliliter 09/23/2017 No longer Active testosterone cypionate 200 mg/mL intramuscular oil RxNorm: 022844 Milliliter 08/28/2017 No longer Active testosterone cypionate 200 mg/mL intramuscular oil RxNorm: 285990 /2Milliliter 08/12/2017 No longer Active testosterone cypionate 200 mg/mL intramuscular oil RxNorm: 673750 1/2Milliliter 07/28/2017 No longer Active testosterone cypionate 200 mg/mL intramuscular oil RxNorm: 517353 /2Milliliter 07/14/2017 No longer Active testosterone cypionate 200 mg/mL intramuscular oil RxNorm: 947559 2Milliliter 06/26/2017 No longer Active testosterone cypionate 200 mg/mL intramuscular oil RxNorm: 573900 /2Milliliter 06/09/2017 No longer Active testosterone cypionate 200 mg/mL intramuscular oil RxNorm: 136458 Milliliter 05/27/2017 No longer Active testosterone cypionate 200 mg/mL intramuscular oil RxNorm: 134428 Milliliter 05/13/2017 No longer Active testosterone cypionate 200 mg/mL intramuscular oil RxNorm: 378108 2Milliliter 04/29/2017 No longer Active Immunizations Vaccine Codes Date Status Influenza CVX: 141 11/17/2017 completed Assessments Condition Codes Effective Dates Acute recurrent maxillary sinusitis ICD-10: J01.01 ICD-9: 461.0 04/03/2018 Cough ICD-10: R05 ICD-9: 786.2 04/03/2018 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 ICD-9: 257.2 03/20/2018 Cellulitis of face ICD-10: L03.211 ICD-9: 682.0 03/20/2018 Pain in left shoulder ICD-10: M25.512 ICD-9: 719.41 03/20/2018 Low back pain ICD-10: M54.5 ICD-9: 724.2 03/10/2018 Mixed hyperlipidemia ICD-10: E78.2 ICD-9: 272.2 [...] 07/14/2017 Hypoxemia ICD-10: R09.02 ICD-9: 799.02 06/09/2017 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 ICD-9: 238.4 04/28/2017 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 ICD-9: 327.14 04/28/2017 Impacted cerumen, bilateral ICD-10: H61.23 ICD-9: 380.4 03/17/2017 Atherosclerotic heart disease of [place] coronary artery without angina pectoris ICD-10: I25.10 ICD-9: 414.00 03/14/2017 Chronic pain syndrome ICD-10: G89.4 ICD-9: 338.4 03/14/2017 Personal history of other diseases of the circulatory system ICD-10: Z86.79 ICD-9: V12.59 03/14/2017 Presbycusis, bilateral ICD-10: H91.13 ICD-9: 388.01 03/14/2017 Reason For Visit Reason For Visit Effective Dates Notes fever 04/03/2018 skin lesion 03/20/2018 back pain 03/10/2018 sinus congestion 01/07/2018 back pain 12/22/2017 back pain 12/15/2017 Annual Medicare Wellness Exam 11/27/2017 shoulder pain 11/17/2017 sinus congestion 10/06/2017 shoulder pain 07/24/2017 abnormal test results 07/14/2017 fatigue 06/09/2017 fatigue 04/28/2017 hyperlipidemia 03/14/2017 R ear Results Observation Observation Code Item Item Code Result Date Testosterone [id number] Testo 375.1 ng/dL 03/02/2018 Cbc With Differential [...] 25.6 pg 03/02/2018 Cbc With Differential Ord2 [place]% 7.9 % 03/02/2018 Cbc With Differential Ord2 [...] 1.41 K/ul 03/02/2018 Cbc With Differential Ord2 [place] ABS# 0.8 K/ul 03/02/2018 Cbc With Differential Ord2 Eos ABS# 0.2 K/ul 03/02/2018 Cbc With Differential Ord2 Baso ABS# 0.1 K/ul 03/02/2018 Influenza A+B Loi884 Influ A+B Negative 01/08/2018 C A/B FLU [id number] Influenza A Scr TNP:Improper Specimen 01/07 C A/B FLU [id number] Influenza B Scr TNP:Improper Specimen 01/07 C A/B FLU [id number] Influenza Intrp B AG: PRID:PT:NOSE:NOM:IF TNP:Improper Specimen 01/07/2018 C A/B FLU [id number] IC OK? TNP:Improper Specimen 01/07/2018 Hepatic Ojc876 ALBUMIN 3.7 g/dL 08/06/2017 Hepatic Qmy762 TPRO 5.9 g/dL 08/06/2017 Hepatic Alp413 GLOB 2.2 g/dL 08/06/2017 Hepatic Ufe788 A/G Ratio 1.7 Ratio 08/06/2017 Hepatic Evb694 ALK PHOS 46 U/L 08/06/2017 Hepatic Mlt528 ALT(SGPT) 9 U/L 08/06/2017 Hepatic Bxg393 AST(SGOT) 13 U/L 08/06/2017 Hepatic Stc080 BILI T 0.6 mg/dL 08/06/2017 Hepatic Bye354 BILI D 0.2 mg/dL 08/06/2017 Hepatic Ghl397 BILI I 0.4 mg/dL 08/06/2017 Testosterone Rxu012 Testo 474.5 ng/dL 08/06/2017 Cbc With Differential Ord2 WBC 5.27 K/ul 08/06/2017 Cbc With Differential Ord2 RBC 5.51 M/ul 08/06/2017 Cbc With Differential Ord2 HGB 15.7 g/dl 08/06/2017 Cbc With Differential Ord2 HCT 48.6 % 08/06/2017 Cbc With Differential Ord2 Neut% 57.6 % 08/06/2017 Cbc With Differential Ord2 Lymph% 25.2 % 08/06/2017 Cbc With Differential Ord2 MCV 88.2 fl 08/06/2017 Cbc With Differential Ord2 [place]% 11.2 % 08/06/2017 Cbc With Differential Ord2 MCH 28.5 pg 08/06/2017 Cbc With Differential Ord2 MCHC 32.3 pg 08/06/2017 Cbc With Differential Ord2 Eos% 4.9 % 08/06/2017 Cbc With Differential Ord2 PLT 335 K/ul 08/06/2017 Cbc With Differential Ord2 Baso% 1.1 % 08/06/2017 Cbc With Differential Ord2 RDW 14.2 % 08/06/2017 Cbc With Differential Ord2 Neut ABS# 3.03 K/ul 08/06/2017 Cbc With Differential Ord2 Lymph ABS# 1.33 K/ul 08/06/2017 Cbc With Differential Ord2 [place] ABS# 0.6 K/ul 08/06/2017 Cbc With Differential Ord2 Eos ABS# 0.3 K/ul 08/06/2017 Cbc With Differential Ord2 Baso ABS# 0.1 K/ul 08/06/2017 Comp Metabolic Kqv665 NA 140 mEq/L 06/02/2017 Comp Metabolic Sfb022 K 3.8 mEq/L 06/02/2017 Comp Metabolic Uzh285 CL 102 mEq/L 06/02/2017 Comp Metabolic Ugh338 CO2 30.0 mEq/L 06/02/2017 Comp Metabolic Nbh671 ANION GAP 12 06/02/2017 Comp Metabolic Wdd606 GLUCOSE 100 mg/dL 06/02/2017 Comp Metabolic Trn257 Creat 1.1 mg/dL 06/02/2017 Comp Metabolic Fdz514 eGFR 69 ml/min/1.73m2 06/02/2017 Comp Metabolic Art029 BUN 15 mg/dL 06/02/2017 Comp Metabolic Twl120 B/C Ratio 13.4 Ratio 06/02/2017 Comp Metabolic Yyp270 CALCIUM 8.6 mg/dL 06/02/2017 Comp Metabolic Fqb946 ALK PHOS 63 U/L 06/02/2017 Comp Metabolic Sbn825 AST(SGOT) 17 U/L 06/02/2017 Comp Metabolic Cal807 ALT(SGPT) 12 U/L 06/02/2017 Comp Metabolic Sfc731 BILI T 0.5 mg/dL 06/02/2017 Comp Metabolic Xft263 ALBUMIN 3.9 g/dL 06/02/2017 Comp Metabolic Avs871 TPRO 6.1 g/dL 06/02/2017 Comp Metabolic Lda536 GLOB 2.2 g/dL 06/02/2017 Comp Metabolic Azw521 A/G Ratio 1.8 Ratio 06/02/2017 Comp Metabolic Evn790 Osmo 280 mOsmo 06/02/2017 Vitamin D 25 Oh Nfy9135 VITAMIN D, 25 HYDROXY 40.03 ng/mL Cbc [...] 29.7 pg 06/02/2017 Cbc With Differential Ord2 [place]% 10.5 % 06/02/2017 Cbc With Differential Ord2 Eos% 3.3 % 06/02/2017 Cbc With Differential Ord2 MCHC 31.9 pg 06/02/2017 Cbc With Differential Ord2 Baso% 1.1 % 06/02/2017 Cbc With Differential Ord2 PLT 267 K/ul 06/02/2017 Cbc With Differential Ord2 RDW 13.8 % 06/02/2017 Cbc With Differential Ord2 Neut ABS# 2.93 K/ul 06/02/2017 Cbc With Differential Ord2 Lymph ABS# 1.52 K/ul 06/02/2017 Cbc With Differential Ord2 [place] ABS# 0.6 K/ul 06/02/2017 Cbc With Differential Ord2 Eos ABS# 0.2 K/ul 06/02/2017 Cbc With Differential Ord2 Baso ABS# 0.1 K/ul 06/02/2017 Testosterone Rcb689 Testo 198.4 ng/dL 04/29/2017 Vitamin D 25 Oh Ohv3934 VITAMIN D, 25 HYDROXY 29.25 ng/mL Lipid Ord30 CHOL 159 mg/dL 04/29/2017 Lipid Ord30 HDL 46.0 mg/dl 04/29/2017 Lipid Ord30 TRIG 134 mg/dL 04/29/2017 Lipid Ord30 LDL 86 mg/dL 04/29/2017 Lipid Ord30 C/HDL 3.5 Ratio 04/29/2017 Tsh Ord6 TSH (3rd IS) 3.28 uIU/mL 04/29/2017 Review of Systems System Result Effective Dates Constitutional recent illness 04/03/2018 Constitutional No anorexia [...] Date TRIAMCINOLONE ACET INJ NOS CPT-4: J3301 04/03/2018 ROCEPHIN, PER 250 MG CPT-4: J0696 04/03/2018 THER/PROPH/DIAG INJ SC/IM CPT-4: 10607 03/20/2018 THER/PROPH/DIAG INJ SC/IM CPT-4: 30921 03/06/2018 THER/PROPH/DIAG INJ SC/IM CPT-4: 26579 02/19/2018 THER/PROPH/DIAG INJ SC/IM CPT-4: 40306 02/03/2018 THER/PROPH/DIAG INJ SC/IM CPT-4: 09309 01/07/2018 TRIAMCINOLONE ACET INJ NOS CPT-4: J3301 01/07/2018 ROCEPHIN, PER 250 MG CPT-4: J0696 01/07/2018 THER/PROPH/DIAG INJ SC/IM CPT-4: 42781 01/05/2018 THER/PROPH/DIAG INJ SC/IM CPT-4: 78138 12/15/2017 THER/PROPH/DIAG INJ SC/IM CPT-4: 38102 12/04/2017 PPPS, SUBSEQ VISIT CPT -4: G0439 11/27/2017 ADMIN INFLUENZA VIRUS VAC CPT-4: G0008 11/17/2017 FLU VAC NO PRSV 4 FATOU 3 YRS+ CPT-4: 30403 11/17/2017 THER/PROPH/DIAG INJ SC/IM CPT-4: 60109 11/17/2017 THER/PROPH/DIAG INJ SC/IM CPT-4: 72743 10/22/2017 THER/PROPH/DIAG INJ SC/IM CPT-4: 98475 10/06/2017 TRIAMCINOLONE ACET INJ NOS CPT-4: J3301 10/06/2017 THER/PROPH/DIAG INJ SC/IM CPT-4: 97807 09/23/2017 THER/PROPH/DIAG INJ SC/IM CPT-4: 72190 08/28/2017 THER/PROPH/DIAG INJ SC/IM CPT-4: 48061 08/12/2017 THER/PROPH/DIAG INJ SC/IM CPT-4: 39161 07/28/2017 THER/PROPH/DIAG INJ SC/IM CPT-4: 97272 07/14/2017 THER/PROPH/DIAG INJ SC/IM CPT-4: 44072 06/26/2017 THER/PROPH/DIAG INJ SC/IM CPT-4: 18298 06/09/2017 THER/PROPH/DIAG INJ SC/IM CPT-4: 32226 05/27/2017 THER/PROPH/DIAG INJ SC/IM CPT-4: 83025 05/13/2017 THER/PROPH/DIAG INJ SC/IM CPT-4: 87148 04/29/2017 Vital Signs Date Vital 04/03/2018 Blood Pressure 1: 130/74 Code : 8480-6 BMI: 29.0 Code : 30024-9 Heart Rate 1 : 89 bpm Height: 5'10" SpO2: 98% Temperature: 37.4 (C) / 99.4 (F) Weight: 202 lbs 03/20/2018 Blood Pressure 1: 122/60 Code : 8480-6 Heart Rate 1: 76 bpm Height: 5'10" SpO2: 96% Weight: 03/10/2018 Blood Pressure 1: 120/70 Code : 8480-6 BMI: 29.0 Code : 00090-4 Heart Rate 1 : 82 bpm Height: 5'10" SpO2: 95% Weight: 202 lbs 01/07/2018 Blood Pressure 1: 126/66 Code : 8480-6 BMI: 30.1 Code : 71949-7 Heart Rate 1 : 75 bpm Height: 5'10" SpO2: 97% Temperature: 36.5 (C) / 97.7 (F) Weight: 210 lbs 12/22/2017 Blood Pressure 1: 124/70 Code : 8480-6 BMI: 29.7 Code : 90381-6 Heart Rate 1 : 84 bpm Height: 5'10" SpO2: 94% Weight: 207 lbs 12/15/2017 Blood Pressure 1: 122/82 Code : 8480-6 BMI: 30.0 Code : 45782-3 Heart Rate 1 : 82 bpm Height: 5'10" SpO2: 93% Weight: 209 lbs 11/27/2017 Blood Pressure 1: 132/68 Code : 8480-6 BMI: 29.3 Code : 96955-5 Heart Rate 1 : 71 bpm Height: 5'10" SpO2: 97% Waist Measure (cm): 97 cm Weight: 204 lbs 11/17/2017 Blood Pressure 1: 130/80 Code : 8480-6 BMI: 29.3 Code : 07263-9 Heart Rate 1 : 73 bpm Height: 5'10" SpO2: 99% Weight: 204 lbs 10/06/2017 Blood Pressure 1: 124/60 Code : 8480-6 BMI: 28.8 Code : 56206-2 Heart Rate 1 : 70 bpm Height: 5'10" SpO2: 98% Weight: 201 lbs 07/24/2017 Blood Pressure 1: 118/70 Code : 8480-6 BMI: 29.3 Code : 13496-9 Heart Rate 1 : 82 bpm Height: 5'10" SpO2: 96% Weight: 204 lbs 07/14/2017 Blood Pressure 1: 118/72 Code : 8480-6 BMI: 29.1 Code : 31115-8 Heart Rate 1 : 83 bpm Height: 5'10" SpO2: 98% Weight: 203 lbs 06/09/2017 Blood Pressure 1: 120/74 Code : 8480-6 BMI: 29.3 Code : 98408-3 Heart Rate 1 : 91 bpm Height: 5'10" SpO2: 99% Weight: 204 lbs 04/28/2017 Blood Pressure 1: 118/68 Code : 8480-6 BMI: 28.8 Code : 36692-1 Heart Rate 1 : 74 bpm Height: 5'10" SpO2: 96% Weight: 201 lbs 03/14/2017 Blood Pressure 1: 114/74 Code : 8480-6 BMI: 28.6 Code : 04856-5 Heart Rate 1 : 77 bpm Height: 5'10" SpO2: 97% Weight: 199 lbs Functional Status No Functional Status data History of Present Illness Symptom Name Status Result Effective Date Notes Quality constant 09/2018 None Quality intermittent 04/03/2018 [...] data Encounters Encounter Performer Location Codes Date ([id number]) [id number] EST. PATIENT, LEVEL III Diagnosis: Acute recurrent maxillary sinusitis[ICD10: J01.01] Diagnosis: Cough[ICD10: R05] Elise Hollis MD, [facility] CPT-4: 89885 04/03/2018 [id number] EST. PATIENT, LEVEL III Diagnosis: Cellulitis of face[ICD10: L03.211] Diagnosis: Pain in left shoulder[ICD10: M25.512] Diagnosis: Testicular hypofunction[ICD10: E29.1] Elise Hollis MD, [facility] CPT-4: 33638 03/20/2018 [id number]) [id number] EST. PATIENT, LEVEL IV Diagnosis: Low back pain[ICD10: M54.5] Diagnosis: Mixed hyperlipidemia[ICD10: E78.2] Diagnosis: Spinal stenosis, lumbosacral region[ICD10: M48.07] Diagnosis: Testicular hypofunction[ICD10: E29.1] Leora Hollis MD, [facility] CPT-4: 29287 03/10/2018 74450 EST. PATIENT, LEVEL III Diagnosis: Other malaise[ICD10: R53.81] Diagnosis: Acute laryngopharyngitis[ICD10: J06.0] Diagnosis: Other allergic rhinitis[ICD10: J30.89] Sapphire Hollis MD, [facility] CPT-4: 82100 01/07/2018 ([id number]) [id number] EST. PATIENT, LEVEL III Diagnosis: Spinal stenosis, lumbosacral region[ICD10: M48.07] Diagnosis: Spinal stenosis, cervical region[ICD10: M48.02] Elise Hollis MD, [facility] CPT-4: 73535 12/22/2017 ([id number]) 50857 EST. PATIENT, LEVEL III Diagnosis: Cervicalgia[ICD10: M54.2] Diagnosis: Low back pain[ICD10: M54.5] Diagnosis: Testicular hypofunction[ICD10: E29.1] Elise Hollis MD, [facility] CPT-4: 71238 12/15/2017 ([id number]) 17672 EST. PATIENT, LEVEL III Diagnosis: Mixed hyperlipidemia[ICD10: E78.2] Diagnosis: Other insomnia[ICD10: G47.09] Leora Hollis MD, [facility] CPT- 4: 80923 11/17/2017 [id number] EST. PATIENT, LEVEL III Diagnosis: Acute laryngopharyngitis[ICD10: J06.0] Diagnosis: Other allergic rhinitis[ICD10: J30.89] Sapphire Hollis MD, [facility] CPT-4: 78726 10/06/2017 [id number] EST. PATIENT, LEVEL III Diagnosis: Pain in left shoulder[ICD10: M25.512] Sapphire Hollis MD, [facility] CPT-4: 80934 07/24/2017 ([id number]) [id number] EST. 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 Call if symptoms do not show improvement. 04/03/2018 Appointment: Elise Castillo WPtel: [address] [place], [place] [phone] (15 min) Moderate 04/03/2018 Patient Education: Patient [...] Dr Back 03/20/2018 Appointment: Elise Castillo WPtel: [facility]4 [phone] [place] (15 min) Moderate 03/20/2018 Appointment: (15 min) Moderate 03/20/2018 Patient Education: Patient Medication Summary Completed 03/20/2018 Visit Plan: Spinal stenosis with back pain - refilled hydrocodone- keep appt with [facility] for treatment of stenosis of arteries, then pt most-likely to have surgical intervention of spine. PAD - pt will need surgical intervention with stenting. Testicular hypofunction - continue with testosterone. 03/10/2018 Appointment: Leora Hollis WPtel: [facility]0 [facility] [place] (15 min) Moderate 03/10/2018 Patient Education: Patient Medication Summary Completed 03/10/2018 Patient Education: Back Pain Completed 03/10/2018 Patient Education: Cholesterol Management Completed 03/10/2018 Appointment: Leora Hollis WPtel: [facility]5 [facility] [place] (15 min) Moderate 03/09/2018 Appointment: Injection [...] allergy spray. 01/07/2018 Appointment: Sapphire Oneil WPtel: [facility]3 [facility] (15 min) Moderate 01/07/2018 Patient Education: Patient [...] of plan. 12/22/2017 Appointment: Elise Castillo WPtel: [facility]4 [phone] (15 min) Moderate 12/22/2017 Patient Education: Patient Medication Summary Completed 12/22/2017 Visit Plan: Neck and low back pain -will schedule MRI lumbar and cervical spine for further evaluation and proceed as indicated- patient verbalized understanding of plan. 12/15/2017 [phone] [facility] (15 min) Moderate 12/15/2017 Patient Education: Patient Medication Summary Completed 12/15/2017 Patient Education: Back Pain Completed 12/15/2017 Care Plan: MRI LUMBAR SPINE W/O DYE LOINC : 35065-0 Pending 12/15/2017 Care Plan: MRI NECK SPINE W/O DYE LOINC : 15089-2 Pending 12/15/2017 Appointment: Injection 12/04/2017 Patient Education: [...] care surrogate. 11/27/2017 Appointment: Sapp[place] Oneil [facility]Ptel[facility] [phone] [facility] [facility] - Annual Wellness Visit 11/27/2017 Patient [...] to sleep 11/17/2017 [facility]ment[phone] [facility] (15 min) Moderate 11/17/2017 Patient Education: [...] allergy spray. 10/06/2017 App[facility]ment: [facility] [phone] [facility] (15 min) Moderate 10/06/2017 Appointment: Sapphire Oneil [facility]Ptel[facility] [phone] [facility] (15 min) Moderate 10/06/2017 Patient Education: [...] treatment plan. 07/24/2017 Appointment: Sapphire Oneil [facility]Ptel[facility] [phone] [facility] (30 min) Complex 07/24/2017 Patient Education: [...] medications. 07/14/2017 Appointment: [facility] Holl[facility] [phone] [facility] (15 min) Moderate 07/14/2017 Patient Education: Patient Medication Summary Completed 07/14/2017 Appointment: [facility] [phone] [facility] (15 min) Moderate 07/10/2017 Appointment: Injection [...] night 06/09/2017 Appointment: [facility] Holl[facility] [phone] [facility] (30 min) Complex 06/09/2017 Patient Education: [...] 15 04/28/2017 Appointment: [facility] Holl[facility] [phone] [facility] (30 min) Complex 04/28/2017 Patient Education: [...] removal 03/14/2017 Appointment: [facility] Holl[facility] [phone] [facility] New Patient 03/14/2017 Patient Education: Patient Medication Summary Completed 03/14/2017 Instructions Comment . Spinal stenosis with back pain - refilled hydrocodone- keep appt with [employer] [facility] for treatment of stenosis of arteries, then [...] wax removal REFER FOR PHYSICAL THERAPY AT [facility] -HE HAS A PT HE [...] tear -schedule appt with Dr Back . Increased left shoulder pain and weakness after fall - Discussed with Dr. Back office - they are going to contact him tomorrow for a possible appointment - pt is to notify clinic with any change in the current treatment plan.
--- OUTSIDE RECORDS SUMMARY | 2018-06-12 09:10 | XMS REPORT | CCD ---
Author Author [facility] Organization [facility] Address [address] [place] [address] Phone Care Team Providers Care Manager Strategy & Account Name Role Phone PP Unavailable CCM Unavailable Summary Purpose Interface Exchange Insurance Providers Payer name Policy type / Coverage type Covered republican ID Effective Begin Date Effective End Date WPS Medicare Part B Medicare Part B [id number] 2017 Unknown [facility] Medicare Part B [id number] 2017 Unknown Family history Father Diagnosis Age At Onset Heart Attack Unknown Social History Social History Element Codes Description Effective Dates Marital status Unknown 03/14/2017 Number of children Unknown 2 03/14/[address]: 6660600 Former smoker Quit 11/03/00; smoke 1/2 pack/day x15 years 03/14/[address]: 964907494 Never drinks alcohol 03/14/2017 Allergies, Adverse Reactions, [...] Active 03/14/2017 Unknown Atherosclerotic heart disease of [place] coronary artery without angina pectoris ICD-9: [...] H61.23 03/14/2017 Active 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 ICD-10: I25.10 03/14/2017 Active Chronic pain syndrome ICD-9: 338.4 ICD-10: G89.4 03/14/2017 Active Personal history of other diseases of the circulatory system ICD-9: V12.59 ICD-10: Z86.79 03/14/2017 Active Presbycusis, 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 03/14/2017 Active Medications Medication Codes Instructions Start Date Stop Date Status Fill Instructions Kenalog 40 mg/mL suspension for injection RxNorm: 0024548 Milliliter(s) Inj 04/03/2018 04/03/2018 Inactive Augmentin 875 mg-125 mg tablet RxNorm: 940150 1 Tablet(s) PO BID 04/03/2018 04/09/2018 Active ceftriaxone 500 mg solution for injection RxNorm: 7513226 Inj 04/03/2018 04/03/2018 Inactive atorvastatin 40 mg tablet RxNorm: 668315 TAKE ONE TABLET BY MOUTH DAILY 03/20/2018 09/10/2019 Active hydrocodone 5 mg-acetaminophen 325 mg tablet RxNorm: 505009 1-2 Tablet(s) PO Q6 PRN 03/20/2018 04/18/2018 Active mupirocin 2 % topical ointment RxNorm: 339786 1 Application TOP BID 03/20/2018 03/26/2018 Inactive Keflex 500 mg capsule RxNorm: 738655 1 Capsule(s) PO TID 201803/26/2018 Inactive zolpidem 5 mg tablet RxNorm: 712089 Tablet(s) TAKE ONE TABLET BY MOUTH EVERY NIGHT AT BEDTIME NEEDED 03/18/2018 Active clopidogrel 75 mg tablet RxNorm: 049692 1 Tablet(s) PO daily 04/15/2018 Active furosemide 40 mg tablet RxNorm: 824670 TAKE ONE TABLET BY MOUTH DAILY 03/17/2018 09/12/2018 Active testosterone cypionate 200 mg/mL intramuscular oil RxNorm: 7597131 Milliliter(s) IM 03/06/2018 03/06/2018 Inactive testosterone cypionate 200 mg/mL intramuscular oil RxNorm: 3269410 Milliliter(s) IM 02/19/2018 02/19/2018 Inactive hydrocodone 5 mg-acetaminophen 325 mg tablet RxNorm: 902799 1-2 Tablet(s) PO Q6 PRN 02/18/2018 03/09/2018 Inactive zolpidem 5 mg tablet RxNorm: 642987 TAKE ONE TABLET BY MOUTH EVERY NIGHT AT BEDTIME NEEDED 02/13/2018 03/13/2018 Inactive meloxicam 15 mg tablet RxNorm: 329734 TAKE ONE TABLET BY MOUTH DAILY 02/13/2018 08/11/2018 Active testosterone cypionate 200 mg/mL intramuscular kit RxNorm: 712648 1/2 Milliliter(s ) IM [id number] 02/03/2018 08/01/2018 Active testosterone cypionate 200 mg/mL intramuscular oil RxNorm: 768560 Milliliter(s) IM 02/03/2018 02/03/2018 Inactive prednisone 20 mg tablet RxNorm: 358082 2 Tablet(s) PO QAM 01/0901/13/2018 Inactive cefdinir 300 mg capsule RxNorm: 713413 1 Capsule(s) PO BID 01/18/2018 Inactive prednisone 20 mg tablet RxNorm: 087198 2 Tablet(s) PO QAM 01/0901/08/2018 Inactive cefdinir 300 mg capsule RxNorm: 907583 1 Capsule(s) PO BID 01/08/2018 Inactive Zithromax Z-Timothy 250 mg tablet RxNorm: 019792 1 Tablet(s) PO UD 01/07/2018 No Stop Date Active Kenalog 40 mg/mL suspension for injection RxNorm: 6030905 Milliliter(s) Inj 01/07/2018 01/07/2018 Inactive ceftriaxone 500 mg solution for injection RxNorm: 9696894 Inj 01/07/2018 01/07/2018 Inactive testosterone cypionate 200 mg/mL intramuscular oil RxNorm: 469362 1/2 Milliliter(s ) IM 01/05/2018 01/05/2018 Inactive hydrocodone 5 mg-acetaminophen 325 mg tablet RxNorm: 571611 1-2 Tablet(s) PO Q6 PRN 12/22/2017 02/17/2018 Inactive zolpidem 5 mg tablet RxNorm: 152218 1 Tablet(s) PO 30 min before QHS 12/15/2017 02/12/2018 Inactive testosterone cypionate 200 mg/mL intramuscular oil RxNorm: 766273 Milliliter(s) IM 12/15/2017 12/15/2017 Inactive testosterone cypionate 200 mg/mL intramuscular oil RxNorm: 683939 1/2 Milliliter(s ) IM 12/04/2017 12/04/2017 Inactive testosterone cypionate 200 mg/mL intramuscular oil RxNorm: 816928 1/2 Milliliter(s ) IM 11/17/2017 11/17/2017 Inactive potassium chloride ER 10 mEq capsule,extended release RxNorm: 253975 TAKE ONE CAPSULE BY MOUTH DAILY 11/11/20172018 Active testosterone cypionate 200 mg/mL intramuscular oil RxNorm: 869522 Milliliter(s) IM 10/22/2017 10/22/2017 Inactive zolpidem 5 mg tablet RxNorm: 819685 1 Tablet(s) PO 30 min before QHS 10/15/2017 10/14/2017 Inactive zolpidem 5 mg tablet RxNorm: 361144 1 Tablet(s) PO 30 min before QHS 10/15/2017 12/13/2017 Inactive Zithromax Z-Timothy 250 mg tablet RxNorm: 153456 1 Tablet(s) PO UD 10/07/2017 11/16/2017 Inactive testosterone cypionate 200 mg/mL intramuscular oil RxNorm: 224362 Milliliter(s) IM 10/06/2017 10/06/2017 Inactive Kenalog 40 mg/mL suspension for injection RxNorm: 4327780 Milliliter(s) Inj 10/06/2017 10/06/2017 Inactive Zithromax Z-Timothy 250 mg tablet RxNorm: 569529 1 Tablet(s) PO UD 10/06/2017 10/06/2017 Inactive testosterone cypionate 200 mg/mL intramuscular oil RxNorm: 340881 Milliliter(s) IM 09/23/2017 09/23/2017 Inactive testosterone cypionate 200 mg/mL intramuscular kit RxNorm: 374679 1/2 Milliliter(s ) IM [id number] 08/28/2017 02/02/2018 Inactive meloxicam 15 mg tablet RxNorm: 722222 TAKE ONE TABLET BY MOUTH DAILY 08/28/2017 02/12/2018 Inactive testosterone cypionate 200 mg/mL intramuscular oil RxNorm: 093991 Milliliter(s) IM 08/28/2017 08/28/2017 Inactive testosterone cypionate 200 mg/mL intramuscular oil RxNorm: 849708 1/2 Milliliter(s ) IM 08/12/2017 08/12/2017 Inactive meloxicam 15 mg tablet RxNorm: 398700 1 Tablet(s) PO daily 08/201708/27/2017 Inactive atorvastatin 40 mg tablet RxNorm: 292338 TAKE ONE TABLET BY MOUTH DAILY 07/30/2017 02/24/2018 Inactive furosemide 40 mg tablet RxNorm: 712827 TAKE ONE TABLET BY MOUTH DAILY 07/30/2017 02/24/2018 Inactive testosterone cypionate 200 mg/mL intramuscular oil RxNorm: 378126 1/2 Milliliter(s ) IM 07/28/2017 07/28/2017 Inactive testosterone cypionate 200 mg/mL intramuscular oil RxNorm: 745399 1/2 Milliliter(s ) IM 07/14/2017 07/14/2017 Inactive testosterone cypionate 200 mg/mL intramuscular oil RxNorm: 020287 1/2 Milliliter(s ) IM 06/26/2017 06/26/2017 Inactive hydrocodone 5 mg-acetaminophen 325 mg tablet RxNorm: 831160 1 Tablet(s) PO QHS and 1 tab PO daily PRN pain 06/09/2017 Inactive hydrocodone 5 mg-acetaminophen 325 mg tablet RxNorm: 022109 1 Tablet(s) PO daily 06/09/2017 06/18/2017 Inactive testosterone cypionate 200 mg/mL intramuscular oil RxNorm: 062688 1/2 Milliliter(s ) IM 06/09/2017 06/09/2017 Inactive testosterone cypionate 200 mg/mL intramuscular oil RxNorm: 762814 Milliliter(s) IM 05/27/2017 05/27/2017 Inactive testosterone cypionate 200 mg/mL intramuscular oil RxNorm: 709273 Milliliter(s) IM 05/13/2017 05/13/2017 Inactive potassium chloride ER 10 mEq capsule,extended release RxNorm: 545237 1 Capsule(s) PO daily 05/07/2017 11/02/2017 Inactive Vitamin D2 50,000 unit capsule RxNorm: 789368 1 Capsule(s) PO QW 05/06/2017 05/05/2017 Inactive take with OTC vitamin d 2,000 units QD testosterone cypionate 200 mg/mL intramuscular kit RxNorm: 377031 1/2 kit IM 2 x month 05/06/2017 08/27/2017 Inactive Vitamin D2 50,000 unit capsule RxNorm: 447833 1 Capsule(s) PO QW 05/06/2017 08/03/2017 Inactive take with OTC vitamin d 2,000 units QD testosterone cypionate 200 mg/mL intramuscular oil RxNorm: 105835 1/2 Milliliter(s ) IM 04/29/2017 04/29/2017 Inactive fluorouracil 5 % topical cream RxNorm: 416843 1 Application TOP BID 04/28/2017 05/07/2017 Inactive testosterone cypionate 200 mg/mL intramuscular kit RxNorm: 171589 1/2 IM 2 x month 04/28/2017 05/05/2017 Inactive Pamelor 10 mg capsule RxNorm: 651540 1 Capsule(s) PO daily No Start Date Active gabapentin 300 mg capsule RxNorm: 068592 6 Capsule(s) PO daily No Start Date Active cyclobenzaprine 5 mg tablet RxNorm: 679504 1 Tablet(s) PO as needed No Start Date Active diclofenac 1 % topical gel RxNorm: 565362 1 Gram(s) TOP as needed No Start Date Active meloxicam 15 mg tablet RxNorm: 493165 1 Tablet(s) PO daily No Start Date 07/30/2017 Inactive potassium chloride ER 10 mEq tablet,extended release RxNorm: 574473 1 Tablet(s) PO daily No Start Date 05/06/2017 Inactive hydrocodone 5 mg-acetaminophen 325 mg tablet RxNorm: 194789 1 Tablet(s) PO daily No Start Date 06/08/2017 Inactive furosemide 40 mg tablet RxNorm: 178910 1 Tablet(s) PO daily No Start Date 07/29/2017 Inactive atorvastatin 40 mg tablet RxNorm: 926242 1 Tablet(s) PO QHS No Start Date 07/29/2017 Inactive clopidogrel 75 mg tablet RxNorm: 147355 1 Tablet(s) PO daily No Start Date 03/16/2018 Inactive Medication Administered Medication Codes Instructions Start Date Status Kenalog 40 mg/mL suspension for injection RxNorm: 1661170 Milliliter 04/03/2018 Active ceftriaxone 500 mg solution for injection RxNorm: 9092467 04/03/2018 Active testosterone cypionate 200 mg/mL intramuscular oil RxNorm: 2065466 Milliliter 03/06/2018 No longer Active testosterone cypionate 200 mg/mL intramuscular oil RxNorm: 3002219 Milliliter 02/19/2018 No longer Active testosterone cypionate 200 mg/mL intramuscular oil RxNorm: 346451 Milliliter 02/03/2018 No longer Active Kenalog 40 mg/mL suspension for injection RxNorm: 5113298 Milliliter 01/07/2018 No longer Active ceftriaxone 500 mg solution for injection RxNorm: 3376705 01/07/2018 No longer Active testosterone cypionate 200 mg/mL intramuscular oil RxNorm: 414123 2Milliliter 01/05/2018 No longer Active testosterone cypionate 200 mg/mL intramuscular oil RxNorm: 235746 Milliliter 12/15/2017 No longer Active testosterone cypionate 200 mg/mL intramuscular oil RxNorm: 501790 /2Milliliter 12/04/2017 No longer Active testosterone cypionate 200 mg/mL intramuscular oil RxNorm: 883186 /2Milliliter 11/17/2017 No longer Active testosterone cypionate 200 mg/mL intramuscular oil RxNorm: 939085 Milliliter 10/22/2017 No longer Active testosterone cypionate 200 mg/mL intramuscular oil RxNorm: 058659 Milliliter 10/06/2017 No longer Active Kenalog 40 mg/mL suspension for injection RxNorm: 5359210 Milliliter 10/06/2017 No longer Active testosterone cypionate 200 mg/mL intramuscular oil RxNorm: 748695 Milliliter 09/23/2017 No longer Active testosterone cypionate 200 mg/mL intramuscular oil RxNorm: 227207 Milliliter 08/28/2017 No longer Active testosterone cypionate 200 mg/mL intramuscular oil RxNorm: 337333 2Milliliter 08/12/2017 No longer Active testosterone cypionate 200 mg/mL intramuscular oil RxNorm: 780758 /2Milliliter 07/28/2017 No longer Active testosterone cypionate 200 mg/mL intramuscular oil RxNorm: 709954 /2Milliliter 07/14/2017 No longer Active testosterone cypionate 200 mg/mL intramuscular oil RxNorm: 582856 /2Milliliter 06/26/2017 No longer Active testosterone cypionate 200 mg/mL intramuscular oil RxNorm: 725034 /2Milliliter 06/09/2017 No longer Active testosterone cypionate 200 mg/mL intramuscular oil RxNorm: 002973 Milliliter 05/27/2017 No longer Active testosterone cypionate 200 mg/mL intramuscular oil RxNorm: 930734 Milliliter 05/13/2017 No longer Active testosterone cypionate 200 mg/mL intramuscular oil RxNorm: 063462 2Milliliter 04/29/2017 No longer Active Immunizations Vaccine [...] lumbosacral region ICD-10: M48.07 ICD-9: 724.02 03/10/2018 Low back pain ICD-10: M54.5 ICD-9: 724.2 03/10/2018 Other malaise ICD-10: R53.81 ICD-9: 780.79 [...] ICD-9: 380.4 03/17/2017 Atherosclerotic heart disease of [place] coronary artery without angina pectoris ICD-10: [...] Code Item Item Code Result Date Testosterone Lpz365 Testo 375.1 ng/dL 03/02/2018 Cbc With Differential [...] 25.6 pg 03/02/2018 Cbc With Differential Ord2 [place]% 7.9 % 03/02/2018 Cbc With Differential Ord2 [...] 1.41 K/ul 03/02/2018 Cbc With Differential Ord2 [place] ABS# 0.8 K/ul 03/02/2018 Cbc With Differential Ord2 Eos ABS# 0.2 K/ul 03/02/2018 Cbc With Differential Ord2 Baso ABS# 0.1 K/ul 03/02/2018 Influenza A+B Xny226 Influ A+B Negative 01/08/2018 C A/B FLU [id number] Influenza A Scr TNP:Improper Specimen 01/07 C A/B FLU [id number] Influenza B Scr TNP:Improper Specimen 01/07 C A/B FLU [id number] IC OK? TNP:Improper Specimen 01/07/2018 C A/B FLU [id number] Influenza Intrp B AG: PRID:PT:NOSE:NOM:IF TNP:Improper Specimen 01/07/2018 Hepatic Mku731 ALBUMIN 3.7 g/dL 08/06/2017 Hepatic Hlw875 TPRO 5.9 g/dL 08/06/2017 Hepatic Wln242 GLOB 2.2 g/dL 08/06/2017 Hepatic Tdr121 A/G Ratio 1.7 Ratio 08/06/2017 Hepatic Pgb314 ALK PHOS 46 U/L 08/06/2017 Hepatic Pmc560 ALT(SGPT) 9 U/L 08/06/2017 Hepatic Kni183 AST(SGOT) 13 U/L 08/06/2017 Hepatic Lfb939 BILI T 0.6 mg/dL 08/06/2017 Hepatic Vgb228 BILI D 0.2 mg/dL 08/06/2017 Hepatic Xlz411 BILI I 0.4 mg/dL 08/06/2017 Testosterone Lbz946 Testo 474.5 ng/dL 08/06/2017 Cbc With Differential [...] 28.5 pg 08/06/2017 Cbc With Differential Ord2 [place]% 11.2 % 08/06/2017 Cbc With Differential Ord2 [...] 1.33 K/ul 08/06/2017 Cbc With Differential Ord2 [place] ABS# 0.6 K/ul 08/06/2017 Cbc With Differential Ord2 Eos ABS# 0.3 K/ul 08/06/2017 Cbc With Differential Ord2 Baso ABS# 0.1 K/ul 08/06/2017 Comp Metabolic Tyb536 NA 140 mEq/L 06/02/2017 Comp Metabolic Yms412 K 3.8 mEq/L 06/02/2017 Comp Metabolic Abi628 CL 102 mEq/L 06/02/2017 Comp Metabolic Laz232 CO2 30.0 mEq/L 06/02/2017 Comp Metabolic Jbs593 ANION GAP 12 06/02/2017 Comp Metabolic Jrm140 GLUCOSE 100 mg/dL 06/02/2017 Comp Metabolic Ebc793 Creat 1.1 mg/dL 06/02/2017 Comp Metabolic Eje664 eGFR 69 ml/min/1.73m2 06/02/2017 Comp Metabolic Kpv989 BUN 15 mg/dL 06/02/2017 Comp Metabolic Cpd841 B/C Ratio 13.4 Ratio 06/02/2017 Comp Metabolic Rmv101 CALCIUM 8.6 mg/dL 06/02/2017 Comp Metabolic Tep940 ALK PHOS 63 U/L 06/02/2017 Comp Metabolic Zxz319 AST(SGOT) 17 U/L 06/02/2017 Comp Metabolic Bgl522 ALT(SGPT) 12 U/L 06/02/2017 Comp Metabolic Khk516 BILI T 0.5 mg/dL 06/02/2017 Comp Metabolic Mjv806 ALBUMIN 3.9 g/dL 06/02/2017 Comp Metabolic Fdd602 TPRO 6.1 g/dL 06/02/2017 Comp Metabolic Csn293 GLOB 2.2 g/dL 06/02/2017 Comp Metabolic Yiy890 A/G Ratio 1.8 Ratio 06/02/2017 Comp Metabolic Hth500 Osmo 280 mOsmo 06/02/2017 Vitamin D 25 Oh Sfo1614 VITAMIN D, 25 HYDROXY 40.03 ng/mL Cbc [...] 93.0 fl 06/02/2017 Cbc With Differential Ord2 [place]% 10.5 % 06/02/2017 Cbc With Differential Ord2 [...] 1.52 K/ul 06/02/2017 Cbc With Differential Ord2 [place] ABS# 0.6 K/ul 06/02/2017 Cbc With Differential Ord2 Eos ABS# 0.2 K/ul 06/02/2017 Cbc With Differential Ord2 Baso ABS# 0.1 K/ul 06/02/2017 Testosterone Yub859 Testo 198.4 ng/dL 04/29/2017 Vitamin D 25 Oh Ijd9118 VITAMIN D, 25 HYDROXY 29.25 ng/mL Lipid [...] clear 11/17/2017 None Full Exam - General 1994 [...] CPT-4: J0696 04/03/2018 THER/PROPH/DIAG INJ SC/IM CPT-4: 47985 03/20/2018 THER/PROPH/DIAG INJ SC/IM CPT-4: 02952 03/06/2018 THER/PROPH/DIAG INJ SC/IM CPT-4: 26999 02/19/2018 THER/PROPH/DIAG INJ SC/IM CPT-4: 06015 02/03/2018 THER/PROPH/DIAG INJ SC/IM CPT-4: 25325 01/07/2018 TRIAMCINOLONE ACET INJ NOS CPT-4: J3301 01/07/2018 ROCEPHIN, PER 250 MG CPT-4: J0696 01/07/2018 THER/PROPH/DIAG INJ SC/IM CPT-4: 05784 01/05/2018 THER/PROPH/DIAG INJ SC/IM CPT-4: 49682 12/15/2017 THER/PROPH/DIAG INJ SC/IM CPT-4: 21587 12/04/2017 PPPS, SUBSEQ VISIT CPT -4: G0439 11/27/2017 ADMIN INFLUENZA VIRUS VAC CPT-4: G0008 11/17/2017 FLU VAC NO PRSV 4 FATOU 3 YRS+ CPT-4: 05563 11/17/2017 THER/PROPH/DIAG INJ SC/IM CPT-4: 01740 11/17/2017 THER/PROPH/DIAG INJ SC/IM CPT-4: 72415 10/22/2017 THER/PROPH/DIAG INJ SC/IM CPT-4: 79415 10/06/2017 TRIAMCINOLONE ACET INJ NOS CPT-4: J3301 10/06/2017 THER/PROPH/DIAG INJ SC/IM CPT-4: 64827 09/23/2017 THER/PROPH/DIAG INJ SC/IM CPT-4: 05854 08/28/2017 THER/PROPH/DIAG INJ SC/IM CPT-4: 05574 08/12/2017 THER/PROPH/DIAG INJ SC/IM CPT-4: 79262 07/28/2017 THER/PROPH/DIAG INJ SC/IM CPT-4: 88083 07/14/2017 THER/PROPH/DIAG INJ SC/IM CPT-4: 45538 06/26/2017 THER/PROPH/DIAG INJ SC/IM CPT-4: 62174 06/09/2017 THER/PROPH/DIAG INJ SC/IM CPT-4: 23153 05/27/2017 THER/PROPH/DIAG INJ SC/IM CPT-4: 53967 05/13/2017 THER/PROPH/DIAG INJ SC/IM CPT-4: 96007 04/29/2017 Vital Signs Date Vital 04/03/2018 Blood Pressure 1: 130/74 Code : 8480-6 BMI: 29.0 Code : 19551-9 Heart Rate 1 : 89 bpm Height: 5'10" SpO2: 98% Temperature: 37.4 (C) / 99.4 (F) Weight: 202 lbs 03/20/2018 Blood Pressure 1: 122/60 Code : 8480-6 Heart Rate 1: 76 bpm Height: 5'10" SpO2: 96% Weight: 03/10/2018 Blood Pressure 1: 120/70 Code : 8480-6 BMI: 29.0 Code : 25653-5 Heart Rate 1 : 82 bpm Height: 5'10" SpO2: 95% Weight: 202 lbs 01/07/2018 Blood Pressure 1: 126/66 Code : 8480-6 BMI: 30.1 Code : 22484-3 Heart Rate 1 : 75 bpm Height: 5'10" SpO2: 97% Temperature: 36.5 (C) / 97.7 (F) Weight: 210 lbs 12/22/2017 Blood Pressure 1: 124/70 Code : 8480-6 BMI: 29.7 Code : 99128-1 Heart Rate 1 : 84 bpm Height: 5'10" SpO2: 94% Weight: 207 lbs 12/15/2017 Blood Pressure 1: 122/82 Code : 8480-6 BMI: 30.0 Code : 94941-9 Heart Rate 1 : 82 bpm Height: 5'10" SpO2: 93% Weight: 209 lbs 11/27/2017 Blood Pressure 1: 132/68 Code : 8480-6 BMI: 29.3 Code : 80534-9 Heart Rate 1 : 71 bpm Height: 5'10" SpO2: 97% Waist Measure (cm): 97 cm Weight: 204 lbs 11/17/2017 Blood Pressure 1: 130/80 Code : 8480-6 BMI: 29.3 Code : 79888-4 Heart Rate 1 : 73 bpm Height: 5'10" SpO2: 99% Weight: 204 lbs 10/06/2017 Blood Pressure 1: 124/60 Code : 8480-6 BMI: 28.8 Code : 53146-4 Heart Rate 1 : 70 bpm Height: 5'10" SpO2: 98% Weight: 201 lbs 07/24/2017 Blood Pressure 1: 118/70 Code : 8480-6 BMI: 29.3 Code : 09223-1 Heart Rate 1 : 82 bpm Height: 5'10" SpO2: 96% Weight: 204 lbs 07/14/2017 Blood Pressure 1: 118/72 Code : 8480-6 BMI: 29.1 Code : 25200-5 Heart Rate 1 : 83 bpm Height: 5'10" SpO2: 98% Weight: 203 lbs 06/09/2017 Blood Pressure 1: 120/74 Code : 8480-6 BMI: 29.3 Code : 23155-7 Heart Rate 1 : 91 bpm Height: 5'10" SpO2: 99% Weight: 204 lbs 04/28/2017 Blood Pressure 1: 118/68 Code : 8480-6 BMI: 28.8 Code : 59290-3 Heart Rate 1 : 74 bpm Height: 5'10" SpO2: 96% Weight: 201 lbs 03/14/2017 Blood Pressure 1: 114/74 Code : 8480-6 BMI: 28.6 Code : 41261-9 Heart Rate 1 : 77 bpm Height: [...] data Encounters Encounter Performer Location Codes Date ([id number]) [id number] EST. PATIENT, LEVEL III Diagnosis: Acute recurrent maxillary sinusitis[ICD10: J01.01] Diagnosis: Cough[ICD10: R05] Elise Hollis MD, [facility] CPT-4: 14562 04/03/2018 [id number] EST. 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 PATIENT, LEVEL III Diagnosis: Other malaise[ICD10: R53.81] Diagnosis: Acute laryngopharyngitis[ICD10: J06.0] Diagnosis: Other allergic rhinitis[ICD10: J30.89] Sapphire Hollis MD, [facility] CPT-4: 52628 01/07/2018 ([id number]) 34292 EST. PATIENT, LEVEL III Diagnosis: Spinal stenosis, lumbosacral region[ICD10: M48.07] Diagnosis: Spinal stenosis, cervical region[ICD10: M48.02] Elise Hollis MD, [facility] CPT-4: 99815 12/22/2017 ([id number]) 18890 EST. 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 PATIENT, LEVEL III Diagnosis: Mixed hyperlipidemia[ICD10: E78.2] Diagnosis: Other insomnia[ICD10: G47.09] Leora Hollis MD, [facility] CPT- 4: 87919 11/17/2017 [id number] EST. PATIENT, LEVEL III Diagnosis: Acute laryngopharyngitis[ICD10: J06.0] Diagnosis: Other allergic rhinitis[ICD10: J30.89] Sapphire Hollis MD, [facility] CPT-4: 19737 10/06/2017 99635 EST. PATIENT, LEVEL III Diagnosis: Pain in left shoulder[ICD10: M25.512] Sapphire Hollis MD, [facility] CPT-4: 73407 07/24/2017 ([id number]) 39755 EST. 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] [facility] CPT-4: 18619 04/28/2017 ([id number]) Miscellaneous no charge Diagnosis: Impacted cerumen, bilateral[ICD10: H61.23] Leora Hollis MD, [facility] CPT-4: 63183 03/17/2017 ([id number]) OFFICE VISIT, NEW - LEVEL 4 Diagnosis: Mixed hyperlipidemia[ICD10: E78.2] Diagnosis: Chronic pain syndrome[ICD10: G89.4] Diagnosis: Presbycusis, bilateral[ICD10: H91.13] Diagnosis: Impacted cerumen, bilateral[ICD10: H61.23] Diagnosis: Atherosclerotic heart disease of [place] coronary artery without angina pectoris[ICD10: I25.10] Diagnosis: Personal history of other diseases of the circulatory system[ICD10: Z86.79] Leora Hollis MD, [facility] CPT-4: 06786 2017 Plan of Care Planned Activity Notes Codes Status Date Visit Plan: Sinusitis - Pt has acute infection - pain in face, maxillary region, Pt informed to use decongestant, RX given to patient, sinus rinses also recommended. Call if symptoms do not show improvement. 04/03/2018 Patient Education: Patient Medication Summary Completed [...] Dr Back 03/20/2018 Appointment: Elise Castillo WPtel: [phone] [phone] [place] (15 min) Moderate 03/20/2018 Appointment: (15 min) Moderate 03/20/2018 Patient Education: Patient Medication Summary Completed 03/20/2018 Visit Plan: Spinal stenosis with back pain - refilled hydrocodone- keep appt with [employer] for treatment of stenosis of arteries, then pt most-likely to have surgical intervention of spine. PAD - pt will need surgical intervention with stenting. Testicular hypofunction - continue with testosterone. 03/10/2018 Appointment: Leora Hollis WPtel: [phone] (15 min) Moderate 03/10/2018 Patient Education: Patient Medication Summary Completed 03/10/2018 Patient Education: Back Pain Completed 03/10/2018 Patient Education: Cholesterol Management Completed 03/10/2018 Appointment: Leora Hollis WPtel: [phone] [place] (15 min) Moderate 03/09/2018 Appointment: Injection [...] allergy spray. 01/07/2018 Appointment: Sapphire Oneil WPtel: [facility] (15 min) Moderate 01/07/2018 Patient Education: Patient [...] of plan. 12/22/2017 Appointment: Elise Castillo WPtel: [facility] [phone] [place] (15 min) Moderate 12/22/2017 Patient Education: Patient Medication Summary Completed 12/22/2017 Visit Plan: Neck and low back pain -will schedule MRI lumbar and cervical spine for further evaluation and proceed as indicated- patient verbalized understanding of plan. 12/15/2017 Appointment: Elise Castillo WPtel: [phone] [phone] (15 min) Moderate 12/15/2017 Patient Education: Patient Medication Summary Completed 12/15/2017 Patient Education: Back Pain Completed 12/15/2017 Care Plan: MRI LUMBAR SPINE W/O DYE LOINC : 21821-1 Pending 12/15/2017 Care Plan: MRI NECK SPINE W/O DYE LOINC : 94865-7 Pending 12/15/2017 Appointment: Injection 12/04/2017 Patient Education: [...] care surrogate. 11/27/2017 Appointment: Sapphire Oneil WPtel[id number] [place] - Annual Wellness Visit 11/27/2017 Patient Education: [...] sleep 11/17/2017 [id number] (15 min) Moderate 11/17/2017 Patient Education: [...] spray. 10/06/2017 Appointment: Leora Hollis WPtel: [phone] [facility] (15 min) Moderate 10/06/2017 [facility] [place] [id number] ([facility] min) Moderate 10/06/2017 Patient Education: Patient [...] treatment plan. 07/24/2017 [facility] [place] [phone] ([facility] min) Complex 07/24/2017 Patient Education: [...] medications. 07/14/2017 [phone] (15 min) Moderate 07/14/2017 Patient Education: Patient Medication Summary Completed 07/14/2017 App[phone] (15 min) Moderate 07/10/2017 Appointment: Injection [...] at night 06/09/2017 [phone] ([facility] min) Complex 06/09/2017 Patient Education: [...] a low dose of testosterone 200mg/mL - 2 ml every two weeks. Rx given to patient. Hypersomnia with polycythemia - I have recommended pt to have a sleep study - in lab. epworth sleepiness scale score of 15 04/28/2017 Appointment: Leora Hollis WPtel: [phone] [facility] (30 min) Complex 04/28/2017 Patient Education: Patient [...] removal 03/14/2017 Appointment: Leora Hollis WPtel: [phone] [facility] New Patient 03/14/2017 Patient Education: Patient Medication [...] nasal steroid allergy spray. . Hypogonadism - pt has hx of [...] pain - refilled hydrocodone- keep appt with [employer] for treatment of stenosis of arteries, then pt most- likely to have surgical intervention of spine. PAD - pt will need surgical intervention with stenting. Testicular hypofunction - continue with testosterone. REFER FOR PHYSICAL THERAPY [facility] -HE HAS A PT HE HAS SEEN [...]
--- OUTSIDE RECORDS SUMMARY | 2018-06-12 09:13 | XMS REPORT | CCD ---
Author Author [facility] Organization [facility] Address [address] [place] [address] Phone Care Team Providers Care Law Firm Consultant Name Role Phone PP Unavailable CCM Unavailable Summary Purpose Interface Exchange Insurance Providers Payer name Policy type / Coverage type Covered alliance party ID Effective Begin Date Effective End Date WPS Medicare Part B Medicare Part B [id number] [address] [facility] Medicare Part B [id number] 2017 Unknown Family history Father Diagnosis Age At Onset Heart Attack Unknown Social History Social History Element Codes Description Effective Dates Marital status Unknown 03/14/2017 Number of children Unknown 2 03/14/[address]: 9347038 Former smoker Quit 11/03/00; smoke 1/2 pack/day x15 years 03/14/[address]: 852313572 Never drinks alcohol 03/14/2017 Allergies, Adverse Reactions, Alerts Substance Reaction Codes Entered Date Inactivated Date Status * NO KNOWN ENVIRONMENTAL ALLERGIES Unknown 03/14/2017 No Inactive Date Active * NO KNOWN FOOD ALLERGIES Unknown 03/14/2017 No Inactive Date Active * NO KNOWN DRUG ALLERGIES Unknown 03/14/2017 No Inactive Date Active Past Medical History Illness Codes Condition Status Onset Date Resolved Date Cellulitis of face ICD -9: 682.0 ICD-10: [...] Active 03/14/2017 Unknown 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 ICD-10: I25.10 Active 03/14/2017 Unknown Chronic pain syndrome ICD-9: 338.4 ICD-10: G89.4 Active 03/14/2017 Unknown Personal history of other diseases of the circulatory system ICD-9: V12.59 ICD-10: Z86.79 Active 03/14/2017 Unknown Presbycusis, 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 Active 03/14/2017 Unknown Problems Condition Codes Effective Dates Condition Status Cellulitis of face ICD -9: 682.0 ICD-10: [...] H61.23 03/14/2017 Active 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 ICD-10: I25.10 03/14/2017 Active Chronic pain syndrome ICD-9: 338.4 ICD-10: G89.4 03/14/2017 Active Personal history of other diseases of the circulatory system ICD-9: V12.59 ICD-10: Z86.79 03/14/2017 Active Presbycusis, 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 03/14/2017 Active Medications Medication Codes Instructions Start Date Stop Date Status Fill Instructions mupirocin 2 % topical ointment RxNorm: 435422 1 Application TOP BID 03/20/2018 03/26/2018 Active atorvastatin 40 mg tablet RxNorm: 955531 TAKE ONE TABLET BY MOUTH DAILY 03/20/2018 09/10/2019 Active hydrocodone 5 mg-acetaminophen 325 mg tablet RxNorm: 424533 1-2 Tablet(s) PO Q6 PRN 03/20/2018 04/18/2018 Active Keflex 500 mg capsule RxNorm: 097028 1 Capsule(s) PO TID 201803/26/2018 Active zolpidem 5 mg tablet RxNorm: 916386 Tablet(s) TAKE ONE TABLET BY MOUTH EVERY NIGHT AT BEDTIME NEEDED 03/18/2018 Active clopidogrel 75 mg tablet RxNorm: 713914 1 Tablet(s) PO daily 04/15/2018 Active furosemide 40 mg tablet RxNorm: 167964 TAKE ONE TABLET BY MOUTH DAILY 03/17/2018 09/12/2018 Active testosterone cypionate 200 mg/mL intramuscular oil RxNorm: 5043569 Milliliter(s) IM 03/06/2018 03/06/2018 Inactive testosterone cypionate 200 mg/mL intramuscular oil RxNorm: 5502262 Milliliter(s) IM 02/19/2018 02/19/2018 Inactive hydrocodone 5 mg-acetaminophen 325 mg tablet RxNorm: 062820 1-2 Tablet(s) PO Q6 PRN 02/18/2018 03/09/2018 Inactive zolpidem 5 mg tablet RxNorm: 092029 TAKE ONE TABLET BY MOUTH EVERY NIGHT AT BEDTIME NEEDED 02/13/2018 03/13/2018 Inactive meloxicam 15 mg tablet RxNorm: 675971 TAKE ONE TABLET BY MOUTH DAILY 02/13/2018 08/11/2018 Active testosterone cypionate 200 mg/mL intramuscular kit RxNorm: 601441 1/2 Milliliter(s ) IM [id number] 02/03/2018 08/01/2018 Active testosterone cypionate 200 mg/mL intramuscular oil RxNorm: 269553 Milliliter(s) IM 02/03/2018 02/03/2018 Inactive prednisone 20 mg tablet RxNorm: 739427 2 Tablet(s) PO QAM 01/0901/13/2018 Inactive cefdinir 300 mg capsule RxNorm: 018171 1 Capsule(s) PO BID 01/18/2018 Inactive prednisone 20 mg tablet RxNorm: 433284 2 Tablet(s) PO QAM 01/0901/08/2018 Inactive cefdinir 300 mg capsule RxNorm: 594383 1 Capsule(s) PO BID 01/08/2018 Inactive Zithromax Z-Timothy 250 mg tablet RxNorm: 008605 1 Tablet(s) PO UD 01/07/2018 No Stop Date Active Kenalog 40 mg/mL suspension for injection RxNorm: 8025683 Milliliter(s) Inj 01/07/2018 01/07/2018 Inactive ceftriaxone 500 mg solution for injection RxNorm: 4831105 Inj 01/07/2018 01/07/2018 Inactive testosterone cypionate 200 mg/mL intramuscular oil RxNorm: 788074 1/2 Milliliter(s ) IM 01/05/2018 01/05/2018 Inactive hydrocodone 5 mg-acetaminophen 325 mg tablet RxNorm: 601492 1-2 Tablet(s) PO Q6 PRN 12/22/2017 02/17/2018 Inactive zolpidem 5 mg tablet RxNorm: 480166 1 Tablet(s) PO 30 min before QHS 12/15/2017 02/12/2018 Inactive testosterone cypionate 200 mg/mL intramuscular oil RxNorm: 233410 Milliliter(s) IM 12/15/2017 12/15/2017 Inactive testosterone cypionate 200 mg/mL intramuscular oil RxNorm: 203831 1/2 Milliliter(s ) IM 12/04/2017 12/04/2017 Inactive testosterone cypionate 200 mg/mL intramuscular oil RxNorm: 944356 1/2 Milliliter(s ) IM 11/17/2017 11/17/2017 Inactive potassium chloride ER 10 mEq capsule,extended release RxNorm: 211123 TAKE ONE CAPSULE BY MOUTH DAILY 11/11/20172018 Active testosterone cypionate 200 mg/mL intramuscular oil RxNorm: 087071 Milliliter(s) IM 10/22/2017 10/22/2017 Inactive zolpidem 5 mg tablet RxNorm: 757135 1 Tablet(s) PO 30 min before QHS 10/15/2017 10/14/2017 Inactive zolpidem 5 mg tablet RxNorm: 146265 1 Tablet(s) PO 30 min before QHS 10/15/2017 12/13/2017 Inactive Zithromax Z-Timothy 250 mg tablet RxNorm: 055631 1 Tablet(s) PO UD 10/07/2017 11/16/2017 Inactive testosterone cypionate 200 mg/mL intramuscular oil RxNorm: 287837 Milliliter(s) IM 10/06/2017 10/06/2017 Inactive Kenalog 40 mg/mL suspension for injection RxNorm: 3392356 Milliliter(s) Inj 10/06/2017 10/06/2017 Inactive Zithromax Z-Timothy 250 mg tablet RxNorm: 743717 1 Tablet(s) PO UD 10/06/2017 10/06/2017 Inactive testosterone cypionate 200 mg/mL intramuscular oil RxNorm: 440408 Milliliter(s) IM 09/23/2017 09/23/2017 Inactive testosterone cypionate 200 mg/mL intramuscular kit RxNorm: 385347 1/2 Milliliter(s ) IM [id number] 08/28/2017 02/02/2018 Inactive meloxicam 15 mg tablet RxNorm: 204355 TAKE ONE TABLET BY MOUTH DAILY 08/28/2017 02/12/2018 Inactive testosterone cypionate 200 mg/mL intramuscular oil RxNorm: 297274 Milliliter(s) IM 08/28/2017 08/28/2017 Inactive testosterone cypionate 200 mg/mL intramuscular oil RxNorm: 261052 1/2 Milliliter(s ) IM 08/12/2017 08/12/2017 Inactive meloxicam 15 mg tablet RxNorm: 650375 1 Tablet(s) PO daily 08/201708/27/2017 Inactive atorvastatin 40 mg tablet RxNorm: 480207 TAKE ONE TABLET BY MOUTH DAILY 07/30/2017 02/24/2018 Inactive furosemide 40 mg tablet RxNorm: 827499 TAKE ONE TABLET BY MOUTH DAILY 07/30/2017 02/24/2018 Inactive testosterone cypionate 200 mg/mL intramuscular oil RxNorm: 076575 1/2 Milliliter(s ) IM 07/28/2017 07/28/2017 Inactive testosterone cypionate 200 mg/mL intramuscular oil RxNorm: 699297 1/2 Milliliter(s ) IM 07/14/2017 07/14/2017 Inactive testosterone cypionate 200 mg/mL intramuscular oil RxNorm: 460928 1/2 Milliliter(s ) IM 06/26/2017 06/26/2017 Inactive hydrocodone 5 mg-acetaminophen 325 mg tablet RxNorm: 695715 1 Tablet(s) PO QHS and 1 tab PO daily PRN pain 06/09/2017 Inactive hydrocodone 5 mg-acetaminophen 325 mg tablet RxNorm: 895393 1 Tablet(s) PO daily 06/09/2017 06/18/2017 Inactive testosterone cypionate 200 mg/mL intramuscular oil RxNorm: 280974 1/2 Milliliter(s ) IM 06/09/2017 06/09/2017 Inactive testosterone cypionate 200 mg/mL intramuscular oil RxNorm: 941042 Milliliter(s) IM 05/27/2017 05/27/2017 Inactive testosterone cypionate 200 mg/mL intramuscular oil RxNorm: 217473 Milliliter(s) IM 05/13/2017 05/13/2017 Inactive potassium chloride ER 10 mEq capsule,extended release RxNorm: 997634 1 Capsule(s) PO daily 05/07/2017 11/02/2017 Inactive Vitamin D2 50,000 unit capsule RxNorm: 820773 1 Capsule(s) PO QW 05/06/2017 05/05/2017 Inactive take with OTC vitamin d 2,000 units QD testosterone cypionate 200 mg/mL intramuscular kit RxNorm: 803550 1/2 kit IM 2 x month 05/06/2017 08/27/2017 Inactive Vitamin D2 50,000 unit capsule RxNorm: 125611 1 Capsule(s) PO QW 05/06/2017 08/03/2017 Inactive take with OTC vitamin d 2,000 units QD testosterone cypionate 200 mg/mL intramuscular oil RxNorm: 194400 1/2 Milliliter(s ) IM 04/29/2017 04/29/2017 Inactive fluorouracil 5 % topical cream RxNorm: 672434 1 Application TOP BID 04/28/2017 05/07/2017 Inactive testosterone cypionate 200 mg/mL intramuscular kit RxNorm: 135947 1/2 IM 2 x month 04/28/2017 05/05/2017 Inactive Pamelor 10 mg capsule RxNorm: 443426 1 Capsule(s) PO daily No Start Date Active gabapentin 300 mg capsule RxNorm: 845605 6 Capsule(s) PO daily No Start Date Active cyclobenzaprine 5 mg tablet RxNorm: 058272 1 Tablet(s) PO as needed No Start Date Active diclofenac 1 % topical gel RxNorm: 811608 1 Gram(s) TOP as needed No Start Date Active meloxicam 15 mg tablet RxNorm: 735828 1 Tablet(s) PO daily No Start Date 07/30/2017 Inactive potassium chloride ER 10 mEq tablet,extended release RxNorm: 871549 1 Tablet(s) PO daily No Start Date 05/06/2017 Inactive hydrocodone 5 mg-acetaminophen 325 mg tablet RxNorm: 709883 1 Tablet(s) PO daily No Start Date 06/08/2017 Inactive furosemide 40 mg tablet RxNorm: 696004 1 Tablet(s) PO daily No Start Date 07/29/2017 Inactive atorvastatin 40 mg tablet RxNorm: 487392 1 Tablet(s) PO QHS No Start Date 07/29/2017 Inactive clopidogrel 75 mg tablet RxNorm: 039617 1 Tablet(s) PO daily No Start Date 03/16/2018 Inactive Medication Administered Medication Codes Instructions Start Date Status testosterone cypionate 200 mg/mL intramuscular oil RxNorm: 4850470 Milliliter 03/06/2018 No longer Active testosterone cypionate 200 mg/mL intramuscular oil RxNorm: 6777569 Milliliter 02/19/2018 No longer Active testosterone cypionate 200 mg/mL intramuscular oil RxNorm: 326374 Milliliter 02/03/2018 No longer Active Kenalog 40 mg/mL suspension for injection RxNorm: 6734540 Milliliter 01/07/2018 No longer Active ceftriaxone 500 mg solution for injection RxNorm: 9735891 01/07/2018 No longer Active testosterone cypionate 200 mg/mL intramuscular oil RxNorm: 022718 1/2Milliliter 01/05/2018 No longer Active testosterone cypionate 200 mg/mL intramuscular oil RxNorm: 020341 Milliliter 12/15/2017 No longer Active testosterone cypionate 200 mg/mL intramuscular oil RxNorm: 509914 2Milliliter 12/04/2017 No longer Active testosterone cypionate 200 mg/mL intramuscular oil RxNorm: 479788 /2Milliliter 11/17/2017 No longer Active testosterone cypionate 200 mg/mL intramuscular oil RxNorm: 652784 Milliliter 10/22/2017 No longer Active testosterone cypionate 200 mg/mL intramuscular oil RxNorm: 448300 Milliliter 10/06/2017 No longer Active Kenalog 40 mg/mL suspension for injection RxNorm: 3539572 Milliliter 10/06/2017 No longer Active testosterone cypionate 200 mg/mL intramuscular oil RxNorm: 969343 Milliliter 09/23/2017 No longer Active testosterone cypionate 200 mg/mL intramuscular oil RxNorm: 442336 Milliliter 08/28/2017 No longer Active testosterone cypionate 200 mg/mL intramuscular oil RxNorm: 455716 2Milliliter 08/12/2017 No longer Active testosterone cypionate 200 mg/mL intramuscular oil RxNorm: 802364 2Milliliter 07/28/2017 No longer Active testosterone cypionate 200 mg/mL intramuscular oil RxNorm: 016279 2Milliliter 07/14/2017 No longer Active testosterone cypionate 200 mg/mL intramuscular oil RxNorm: 930992 /2Milliliter 06/26/2017 No longer Active testosterone cypionate 200 mg/mL intramuscular oil RxNorm: 973368 /2Milliliter 06/09/2017 No longer Active testosterone cypionate 200 mg/mL intramuscular oil RxNorm: 863063 Milliliter 05/27/2017 No longer Active testosterone cypionate 200 mg/mL intramuscular oil RxNorm: 608887 Milliliter 05/13/2017 No longer Active testosterone cypionate 200 mg/mL intramuscular oil RxNorm: 136139 /2Milliliter 04/29/2017 No longer Active Immunizations Vaccine Codes Date Status Influenza CVX: 141 11/17/2017 completed Assessments Condition Codes Effective Dates 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 ICD-9: 257.2 03/20/2018 [...] ICD-9: 380.4 03/17/2017 Atherosclerotic heart disease of [place] coronary artery without angina pectoris ICD-10: I25.10 ICD-9: 414.00 03/14/2017 Chronic pain syndrome ICD-10: G89.4 ICD-9: 338.4 03/14/2017 Personal history of other diseases of the circulatory system ICD-10: Z86.79 ICD-9: V12.59 03/14/2017 Presbycusis, bilateral ICD-10: H91.13 ICD-9: 388.01 03/14/2017 Reason For Visit Reason For Visit Effective Dates Notes skin lesion 03/20/2018 back pain 03/10/2018 sinus congestion 01/07/2018 back pain 12/22/2017 back pain 12/15/2017 Annual Medicare Wellness Exam 11/27/2017 shoulder pain 11/17/2017 sinus congestion 10/06/2017 shoulder pain 07/24/2017 abnormal test results 07/14/2017 fatigue 06/09/2017 fatigue 04/28/2017 hyperlipidemia 03/14/2017 R ear Results Observation Observation Code Item Item Code Result Date Testosterone Cjr696 Testo 375.1 ng/dL 03/02/2018 Cbc With Differential [...] 25.6 pg 03/02/2018 Cbc With Differential Ord2 [place]% 7.9 % 03/02/2018 Cbc With Differential Ord2 [...] 1.41 K/ul 03/02/2018 Cbc With Differential Ord2 [place] ABS# 0.8 K/ul 03/02/2018 Cbc With Differential Ord2 Eos ABS# 0.2 K/ul 03/02/2018 Cbc With Differential Ord2 Baso ABS# 0.1 K/ul 03/02/2018 Influenza A+B Mro347 Influ A+B Negative 01/08/2018 C A/B FLU [id number] Influenza A Scr TNP:Improper Specimen 01/07 C A/B FLU [id number] Influenza B Scr TNP:Improper Specimen 01/07 C A/B FLU [id number] IC OK? TNP:Improper Specimen 01/07/2018 C A/B FLU [id number] Influenza Intrp B AG: PRID:PT:NOSE:NOM:IF TNP:Improper Specimen 01/07/2018 Hepatic Cdh352 ALBUMIN 3.7 g/dL 08/06/2017 Hepatic Wfc531 TPRO 5.9 g/dL 08/06/2017 Hepatic Gem887 GLOB 2.2 g/dL 08/06/2017 Hepatic Imo889 A/G Ratio 1.7 Ratio 08/06/2017 Hepatic Ejm731 ALK PHOS 46 U/L 08/06/2017 Hepatic Yda149 ALT(SGPT) 9 U/L 08/06/2017 Hepatic Bus826 AST(SGOT) 13 U/L 08/06/2017 Hepatic Msh756 BILI T 0.6 mg/dL 08/06/2017 Hepatic Zzj391 BILI D 0.2 mg/dL 08/06/2017 Hepatic Maz875 BILI I 0.4 mg/dL 08/06/2017 Testosterone Pvz499 Testo 474.5 ng/dL 08/06/2017 Cbc With Differential [...] 28.5 pg 08/06/2017 Cbc With Differential Ord2 [place]% 11.2 % 08/06/2017 Cbc With Differential Ord2 [...] 1.33 K/ul 08/06/2017 Cbc With Differential Ord2 [place] ABS# 0.6 K/ul 08/06/2017 Cbc With Differential Ord2 Eos ABS# 0.3 K/ul 08/06/2017 Cbc With Differential Ord2 Baso ABS# 0.1 K/ul 08/06/2017 Comp Metabolic Lhb283 NA 140 mEq/L 06/02/2017 Comp Metabolic Juu554 K 3.8 mEq/L 06/02/2017 Comp Metabolic Pwg251 CL 102 mEq/L 06/02/2017 Comp Metabolic Xhx257 CO2 30.0 mEq/L 06/02/2017 Comp Metabolic Pfu500 ANION GAP 12 06/02/2017 Comp Metabolic Yxo038 GLUCOSE 100 mg/dL 06/02/2017 Comp Metabolic Bsn244 Creat 1.1 mg/dL 06/02/2017 Comp Metabolic Kpv844 eGFR 69 ml/min/1.73m2 06/02/2017 Comp Metabolic Npr505 BUN 15 mg/dL 06/02/2017 Comp Metabolic Qjv163 B/C Ratio 13.4 Ratio 06/02/2017 Comp Metabolic Mgz545 CALCIUM 8.6 mg/dL 06/02/2017 Comp Metabolic Cwd039 ALK PHOS 63 U/L 06/02/2017 Comp Metabolic Fnd011 AST(SGOT) 17 U/L 06/02/2017 Comp Metabolic Rbq984 ALT(SGPT) 12 U/L 06/02/2017 Comp Metabolic Sri620 BILI T 0.5 mg/dL 06/02/2017 Comp Metabolic Qjk854 ALBUMIN 3.9 g/dL 06/02/2017 Comp Metabolic Sno772 TPRO 6.1 g/dL 06/02/2017 Comp Metabolic Koy447 GLOB 2.2 g/dL 06/02/2017 Comp Metabolic Ihj113 A/G Ratio 1.8 Ratio 06/02/2017 Comp Metabolic Bfm533 Osmo 280 mOsmo 06/02/2017 Vitamin D 25 Oh Qmg1130 VITAMIN D, 25 HYDROXY 40.03 ng/mL Cbc [...] 93.0 fl 06/02/2017 Cbc With Differential Ord2 [place]% 10.5 % 06/02/2017 Cbc With Differential Ord2 [...] 1.52 K/ul 06/02/2017 Cbc With Differential Ord2 [place] ABS# 0.6 K/ul 06/02/2017 Cbc With Differential Ord2 Eos ABS# 0.2 K/ul 06/02/2017 Cbc With Differential Ord2 Baso ABS# 0.1 K/ul 06/02/2017 Testosterone Ojn113 Testo 198.4 ng/dL 04/29/2017 Vitamin D 25 Oh Tfn4190 VITAMIN D, 25 HYDROXY 29.25 ng/mL Lipid [...] Result Effective Dates Notes Full Exam - Dermatology Constitutional general appearance [...] 1995 Ears/Nose/Throat oral cavity/pharynx/larynx Overall: hypopharynx benign 11/17/2017 [...] accomodation 03/14/2017 None Full Exam - General 1995 Ears/Nose/Throat lips/teeth/gingiva Overall: benign lips 03/14/2017 None [...] Procedure Codes Date THER/PROPH/DIAG INJ SC/IM CPT-4: 27568 03/20/2018 THER/PROPH/DIAG INJ SC/IM CPT-4: 87961 03/06/2018 THER/PROPH/DIAG INJ SC/IM CPT-4: 84788 02/19/2018 THER/PROPH/DIAG INJ SC/IM CPT-4: 65060 02/03/2018 THER/PROPH/DIAG INJ SC/IM CPT-4: 82364 01/07/2018 TRIAMCINOLONE ACET INJ NOS CPT-4: J3301 01/07/2018 ROCEPHIN, PER 250 MG CPT-4: J0696 01/07/2018 THER/PROPH/DIAG INJ SC/IM CPT-4: 23465 01/05/2018 THER/PROPH/DIAG INJ SC/IM CPT-4: 14941 12/15/2017 THER/PROPH/DIAG INJ SC/IM CPT-4: 11912 12/04/2017 PPPS, SUBSEQ VISIT CPT -4: G0439 11/27/2017 ADMIN INFLUENZA VIRUS VAC CPT-4: G0008 11/17/2017 FLU VAC NO PRSV 4 FATOU 3 YRS+ CPT-4: 44711 11/17/2017 THER/PROPH/DIAG INJ SC/IM CPT-4: 59949 11/17/2017 THER/PROPH/DIAG INJ SC/IM CPT-4: 35482 10/22/2017 THER/PROPH/DIAG INJ SC/IM CPT-4: 03767 10/06/2017 TRIAMCINOLONE ACET INJ NOS CPT-4: J3301 10/06/2017 THER/PROPH/DIAG INJ SC/IM CPT-4: 13010 09/23/2017 THER/PROPH/DIAG INJ SC/IM CPT-4: 05313 08/28/2017 THER/PROPH/DIAG INJ SC/IM CPT-4: 98524 08/12/2017 THER/PROPH/DIAG INJ SC/IM CPT-4: 02990 07/28/2017 THER/PROPH/DIAG INJ SC/IM CPT-4: 31142 07/14/2017 THER/PROPH/DIAG INJ SC/IM CPT-4: 27204 06/26/2017 THER/PROPH/DIAG INJ SC/IM CPT-4: 40896 06/09/2017 THER/PROPH/DIAG INJ SC/IM CPT-4: 92211 05/27/2017 THER/PROPH/DIAG INJ SC/IM CPT-4: 36934 05/13/2017 THER/PROPH/DIAG INJ SC/IM CPT-4: 83420 04/29/2017 Vital Signs Date Vital 03/20/2018 Blood Pressure 1: 122/60 Code : 8480-6 Heart Rate 1: 76 bpm Height: 5'10" SpO2: 96% Weight: 03/10/2018 Blood Pressure 1: 120/70 Code : 8480-6 BMI: 29.0 Code : 00943-5 Heart Rate 1 : 82 bpm Height: 5'10" SpO2: 95% Weight: 202 lbs 01/07/2018 Blood Pressure 1: 126/66 Code : 8480-6 BMI: 30.1 Code : 29272-7 Heart Rate 1 : 75 bpm Height: 5'10" SpO2: 97% Temperature: 36.5 (C) / 97.7 (F) Weight: 210 lbs 12/22/2017 Blood Pressure 1: 124/70 Code : 8480-6 BMI: 29.7 Code : 35600-8 Heart Rate 1 : 84 bpm Height: 5'10" SpO2: 94% Weight: 207 lbs 12/15/2017 Blood Pressure 1: 122/82 Code : 8480-6 BMI: 30.0 Code : 82081-6 Heart Rate 1 : 82 bpm Height: 5'10" SpO2: 93% Weight: 209 lbs 11/27/2017 Blood Pressure 1: 132/68 Code : 8480-6 BMI: 29.3 Code : 25623-7 Heart Rate 1 : 71 bpm Height: 5'10" SpO2: 97% Waist Measure (cm): 97 cm Weight: 204 lbs 11/17/2017 Blood Pressure 1: 130/80 Code : 8480-6 BMI: 29.3 Code : 62406-9 Heart Rate 1 : 73 bpm Height: 5'10" SpO2: 99% Weight: 204 lbs 10/06/2017 Blood Pressure 1: 124/60 Code : 8480-6 BMI: 28.8 Code : 46341-2 Heart Rate 1 : 70 bpm Height: 5'10" SpO2: 98% Weight: 201 lbs 07/24/2017 Blood Pressure 1: 118/70 Code : 8480-6 BMI: 29.3 Code : 77169-6 Heart Rate 1 : 82 bpm Height: 5'10" SpO2: 96% Weight: 204 lbs 07/14/2017 Blood Pressure 1: 118/72 Code : 8480-6 BMI: 29.1 Code : 27177-3 Heart Rate 1 : 83 bpm Height: 5'10" SpO2: 98% Weight: 203 lbs 06/09/2017 Blood Pressure 1: 120/74 Code : 8480-6 BMI: 29.3 Code : 32946-3 Heart Rate 1 : 91 bpm Height: 5'10" SpO2: 99% Weight: 204 lbs 04/28/2017 Blood Pressure 1: 118/68 Code : 8480-6 BMI: 28.8 Code : 33566-6 Heart Rate 1 : 74 bpm Height: 5'10" SpO2: 96% Weight: 201 lbs 03/14/2017 Blood Pressure 1: 114/74 Code : 8480-6 BMI: 28.6 Code : 32337-1 Heart Rate 1 : 77 bpm Height: 5'10" SpO2: 97% Weight: 199 lbs Functional Status No Functional Status data History of Present Illness Symptom Name Status Result Effective Date Notes Quality enlarging None Quality firm 2018 None [...] data Encounters Encounter Performer Location Codes Date EST. 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 PATIENT, LEVEL III Diagnosis: Other malaise[ICD10: R53.81] Diagnosis: Acute laryngopharyngitis[ICD10: J06.0] Diagnosis: Other allergic rhinitis[ICD10: J30.89] Sapphire Hollis MD, [facility] CPT-4: 47715 01/07/2018 ([id number]) [id number] EST. PATIENT, LEVEL III Diagnosis: Spinal stenosis, lumbosacral region[ICD10: M48.07] Diagnosis: Spinal stenosis, cervical region[ICD10: M48.02] Elise Hollis MD, [facility] CPT-4: 92924 12/22/2017 ([id number]) [id number] EST. 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 PATIENT, LEVEL III Diagnosis: Mixed hyperlipidemia[ICD10: E78.2] Diagnosis: Other insomnia[ICD10: G47.09] Leora Hollis MD, [facility] CPT- 4: 43939 11/17/2017 [id number] EST. PATIENT, LEVEL III Diagnosis: Acute laryngopharyngitis[ICD10: J06.0] Diagnosis: Other allergic rhinitis[ICD10: J30.89] Sapphire Hollis MD, [facility] CPT-4: 70552 10/06/2017 [id number] EST. PATIENT, LEVEL III Diagnosis: Pain in left shoulder[ICD10: M25.512] Sapphire Hollis MD, [facility] CPT-4: 90967 07/24/2017 ([id number]) 97944 EST. PATIENT, LEVEL IV Diagnosis: Mixed hyperlipidemia[ICD10: E78.2] Diagnosis: Chronic obstructive pulmonary disease, unspecified[ICD10: J44.9] Diagnosis: Testicular hypofunction[ICD10: E29.1] Leora Hollis MD, [facility] CPT-4: 44911 07/14/2017 ([id number]) [id number] EST. 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] Diagnosis: Mixed hyperlipidemia[ICD10: E78.2] Diagnosis: Hypoxemia[ICD10: R09.02] Leora Hollis MD, [facility] CPT-4: 85915 06/09/2017 ([id number]) 92068 EST. 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] Leora Hollis MD, [facility] CPT-4: 71327 04/28/2017 ([id number]) Miscellaneous no charge Diagnosis: Impacted cerumen, bilateral[ICD10: H61.23] Leora Hollis MD, [facility] CPT-4: 78802 03/17/2017 ([id number]) OFFICE VISIT, NEW - LEVEL 4 Diagnosis: Mixed hyperlipidemia[ICD10: E78.2] Diagnosis: Chronic pain syndrome[ICD10: G89.4] Diagnosis: Presbycusis, bilateral[ICD10: H91.13] Diagnosis: Impacted cerumen, bilateral[ICD10: H61.23] Diagnosis: Atherosclerotic heart disease of [place] coronary artery without angina pectoris[ICD10: I25.10] Diagnosis: Personal history of other diseases of the circulatory system[ICD10: Z86.79] Leora Hollis MD, [facility] CPT-4: 24666 2017 Plan of Care Planned Activity Notes Codes Status Date Visit Plan: Cellulitis - The patient was [...] Dr Back 03/20/2018 Appointment: Elise Castillo WPtel: [facility] [phone] (15 min) Moderate 03/20/2018 Appointment: (15 min) Moderate 03/20/2018 Patient Education: Patient Medication Summary Completed 03/20/2018 Visit Plan: Spinal stenosis with back pain - refilled hydrocodone- keep appt with [facility] for treatment of stenosis of arteries, then pt most-likely to have surgical intervention of spine. PAD - pt will need surgical intervention with stenting. Testicular hypofunction - continue with testosterone. 03/10/2018 Appointment: [facility] [phone] [phone] (15 min) Moderate 03/10/2018 Patient Education: Patient Medication Summary Completed 03/10/2018 Patient Education: Back Pain Completed 03/10/2018 Patient Education: Cholesterol Management Completed 03/10/2018 Appointment: [facility] [phone] [phone] (15 min) Moderate 03/09/2018 Appointment: Injection 03/06/2018 [...] spray. 01/07/2018 Appointment: [id number] (15 min) Moderate 01/07/2018 Patient Education: [...] plan. 12/22/2017 Appointment: Elise Castillo WPtel: [phone] [phone] [place] (15 min) Moderate 12/22/2017 Patient Education: Patient Medication Summary Completed 12/22/2017 Visit Plan: Neck and low back pain -will schedule MRI lumbar and cervical spine for further evaluation and proceed as indicated- patient verbalized understanding of plan. 12/15/2017 Appointment: [phone] [place] (15 min) Moderate 12/15/2017 Patient Education: Patient Medication Summary Completed 12/15/2017 Patient Education: Back Pain Completed 12/15/2017 Care Plan: MRI LUMBAR SPINE W/O DYE LOINC : 70041-5 Pending 12/15/2017 Care Plan: MRI NECK SPINE W/O DYE LOINC : 21361-6 Pending 12/15/2017 Appointment: Injection 12/04/2017 Patient Education: [...] care surrogate. 11/27/2017 Appointment: Sapphire Oneil WPtel: [phone] [phone] MCR - Annual Wellness Visit 11/27/2017 Patient [...] to sleep 11/17/2017 Appointment: Leora Hollis WPtel: [phone] [facility]66[facility] (15 min) Moderate 11/17/2017 Patient Education: Patient [...] allergy spray. 10/06/2017 App[facility]ment: [phone] [place] (15 min) Moderate 10/06/2017 Appointment: [facility] Oneil [phone] [place] (15 min) Moderate 10/06/2017 Patient [...] plan. 07/24/2017 Appointment: [facility] Oneil [phone] (30 min) Complex 07/24/2017 Patient Education: [...] to medications. 07/14/2017 Appointment: [phone] [place] (15 min) Moderate 07/14/2017 Patient Education: Patient Medication Summary Completed 07/14/2017 Appointment: [facility] Holl[id number] (15 min) Moderate 07/10/2017 Appointment: Injection 06/26/2017 [...] night 06/09/2017 Appointment: Le[facility] Hollis [facility]el: [id number] (30 min) Complex 06/09/2017 Patient Education: Patient [...] 15 04/28/2017 Appointment: Le[facility] Hollis [facility]el[phone] (30 min) Complex 04/28/2017 Patient Education: Patient [...] removal 03/14/2017 Appointment: Leora Hollis [facility]el: [phone] New Patient 03/14/2017 Patient Education: Patient Medication [...] tear -schedule appt with Dr Back . Medicare Exam - today we discussed [...] to assure normal liver response to medications. [facility] [place] [...] pain - refilled hydrocodone- keep appt with [facility] for treatment of stenosis of arteries, then pt most- likely to have surgical intervention of spine. PAD - pt will need surgical intervention with stenting. Testicular hypofunction - continue with testosterone. . URI - Pt advised to increase [...] oxygen concentrator with humidification at night . Hypogonadism - pt has hx of [...] Friday morning for ear wax removal . Increased left shoulder pain and weakness after fall - Discussed with Dr. Back office - they are going to contact him tomorrow for a possible appointment - pt is to notify clinic with any change in the current treatment plan.
--- OUTSIDE RECORDS SUMMARY | 2018-06-12 09:15 | XMS REPORT | CCD ---
Author Author [facility] Organization [facility] Address [address] [place] [address] Phone Care Team Providers Care Comic Artist Name Role Phone PP Unavailable CCM Unavailable Summary Purpose Interface Exchange Insurance Providers Payer name Policy type / Coverage type Covered constitution party ID Effective Begin Date Effective End Date WPS Medicare Part B Medicare Part B [id number] 2017 Unknown [facility] Medicare Part B [id number] 2017 Unknown Family history Father Diagnosis Age At Onset Heart Attack Unknown Social History Social History Element Codes Description Effective Dates Marital status Unknown 03/14/2017 Number of children Unknown 2 03/14/[address]: 2411129 Former smoker Quit 11/03/00; smoke 1/2 pack/day x15 years 03/14/[address]: 583086118 Never drinks alcohol 03/14/2017 Allergies, Adverse Reactions, [...] Active 03/14/2017 Unknown 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 [...] H61.23 03/14/2017 Active 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 ICD-10: I25.10 03/14/2017 Active Chronic pain syndrome ICD-9: 338.4 ICD-10: G89.4 03/14/2017 Active Personal history of other diseases of the circulatory system ICD-9: V12.59 ICD-10: Z86.79 03/14/2017 Active Presbycusis, 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 03/14/2017 Active Medications Medication Codes Instructions Start Date Stop Date Status Fill Instructions mupirocin 2 % topical ointment RxNorm: 266133 1 Application TOP BID 03/20/2018 03/26/2018 Active atorvastatin 40 mg tablet RxNorm: 828722 TAKE ONE TABLET BY MOUTH DAILY 03/20/2018 09/10/2019 Active hydrocodone 5 mg-acetaminophen 325 mg tablet RxNorm: 747541 1-2 Tablet(s) PO Q6 PRN 03/20/2018 04/18/2018 Active Keflex 500 mg capsule RxNorm: 645207 1 Capsule(s) PO TID 201803/26/2018 Active zolpidem 5 mg tablet RxNorm: 133409 Tablet(s) TAKE ONE TABLET BY MOUTH EVERY NIGHT AT BEDTIME NEEDED 03/18/2018 Active clopidogrel 75 mg tablet RxNorm: 273354 1 Tablet(s) PO daily 04/15/2018 Active furosemide 40 mg tablet RxNorm: 652789 TAKE ONE TABLET BY MOUTH DAILY 03/17/2018 09/12/2018 Active testosterone cypionate 200 mg/mL intramuscular oil RxNorm: 8995673 Milliliter(s) IM 03/06/2018 03/06/2018 Inactive testosterone cypionate 200 mg/mL intramuscular oil RxNorm: 9171212 Milliliter(s) IM 02/19/2018 02/19/2018 Inactive hydrocodone 5 mg-acetaminophen 325 mg tablet RxNorm: 927102 1-2 Tablet(s) PO Q6 PRN 02/18/2018 03/09/2018 Inactive zolpidem 5 mg tablet RxNorm: 510359 TAKE ONE TABLET BY MOUTH EVERY NIGHT AT BEDTIME NEEDED 02/13/2018 03/13/2018 Inactive meloxicam 15 mg tablet RxNorm: 946982 TAKE ONE TABLET BY MOUTH DAILY 02/13/2018 08/11/2018 Active testosterone cypionate 200 mg/mL intramuscular kit RxNorm: 395226 1/2 Milliliter(s ) IM [id number] 02/03/2018 08/01/2018 Active testosterone cypionate 200 mg/mL intramuscular oil RxNorm: 128490 Milliliter(s) IM 02/03/2018 02/03/2018 Inactive prednisone 20 mg tablet RxNorm: 877074 2 Tablet(s) PO QAM 01/0901/13/2018 Inactive cefdinir 300 mg capsule RxNorm: 724863 1 Capsule(s) PO BID 01/18/2018 Inactive prednisone 20 mg tablet RxNorm: 504219 2 Tablet(s) PO QAM 01/0901/08/2018 Inactive cefdinir 300 mg capsule RxNorm: 909323 1 Capsule(s) PO BID 01/08/2018 Inactive Zithromax Z-Timothy 250 mg tablet RxNorm: 233905 1 Tablet(s) PO UD 01/07/2018 No Stop Date Active Kenalog 40 mg/mL suspension for injection RxNorm: 4700417 Milliliter(s) Inj 01/07/2018 01/07/2018 Inactive ceftriaxone 500 mg solution for injection RxNorm: 4417382 Inj 01/07/2018 01/07/2018 Inactive testosterone cypionate 200 mg/mL intramuscular oil RxNorm: 940777 1/2 Milliliter(s ) IM 01/05/2018 01/05/2018 Inactive hydrocodone 5 mg-acetaminophen 325 mg tablet RxNorm: 299653 1-2 Tablet(s) PO Q6 PRN 12/22/2017 02/17/2018 Inactive zolpidem 5 mg tablet RxNorm: 876396 1 Tablet(s) PO 30 min before QHS 12/15/2017 02/12/2018 Inactive testosterone cypionate 200 mg/mL intramuscular oil RxNorm: 101918 Milliliter(s) IM 12/15/2017 12/15/2017 Inactive testosterone cypionate 200 mg/mL intramuscular oil RxNorm: 374379 1/2 Milliliter(s ) IM 12/04/2017 12/04/2017 Inactive testosterone cypionate 200 mg/mL intramuscular oil RxNorm: 116806 1/2 Milliliter(s ) IM 11/17/2017 11/17/2017 Inactive potassium chloride ER 10 mEq capsule,extended release RxNorm: 984764 TAKE ONE CAPSULE BY MOUTH DAILY 11/11/20172018 Active testosterone cypionate 200 mg/mL intramuscular oil RxNorm: 001583 Milliliter(s) IM 10/22/2017 10/22/2017 Inactive zolpidem 5 mg tablet RxNorm: 018097 1 Tablet(s) PO 30 min before QHS 10/15/2017 10/14/2017 Inactive zolpidem 5 mg tablet RxNorm: 784373 1 Tablet(s) PO 30 min before QHS 10/15/2017 12/13/2017 Inactive Zithromax Z-Timothy 250 mg tablet RxNorm: 788720 1 Tablet(s) PO UD 10/07/2017 11/16/2017 Inactive testosterone cypionate 200 mg/mL intramuscular oil RxNorm: 340904 Milliliter(s) IM 10/06/2017 10/06/2017 Inactive Kenalog 40 mg/mL suspension for injection RxNorm: 9033252 Milliliter(s) Inj 10/06/2017 10/06/2017 Inactive Zithromax Z-Timothy 250 mg tablet RxNorm: 527516 1 Tablet(s) PO UD 10/06/2017 10/06/2017 Inactive testosterone cypionate 200 mg/mL intramuscular oil RxNorm: 716144 Milliliter(s) IM 09/23/2017 09/23/2017 Inactive testosterone cypionate 200 mg/mL intramuscular kit RxNorm: 044034 1/2 Milliliter(s ) IM N2ftegu 08/28/2017 02/02/2018 Inactive meloxicam 15 mg tablet RxNorm: 562767 TAKE ONE TABLET BY MOUTH DAILY 08/28/2017 02/12/2018 Inactive testosterone cypionate 200 mg/mL intramuscular oil RxNorm: 732776 Milliliter(s) IM 08/28/2017 08/28/2017 Inactive testosterone cypionate 200 mg/mL intramuscular oil RxNorm: 563994 1/2 Milliliter(s ) IM 08/12/2017 08/12/2017 Inactive meloxicam 15 mg tablet RxNorm: 904988 1 Tablet(s) PO daily 08/201708/27/2017 Inactive atorvastatin 40 mg tablet RxNorm: 562126 TAKE ONE TABLET BY MOUTH DAILY 07/30/2017 02/24/2018 Inactive furosemide 40 mg tablet RxNorm: 582924 TAKE ONE TABLET BY MOUTH DAILY 07/30/2017 02/24/2018 Inactive testosterone cypionate 200 mg/mL intramuscular oil RxNorm: 320433 1/2 Milliliter(s ) IM 07/28/2017 07/28/2017 Inactive testosterone cypionate 200 mg/mL intramuscular oil RxNorm: 517237 1/2 Milliliter(s ) IM 07/14/2017 07/14/2017 Inactive testosterone cypionate 200 mg/mL intramuscular oil RxNorm: 150978 1/2 Milliliter(s ) IM 06/26/2017 06/26/2017 Inactive hydrocodone 5 mg-acetaminophen 325 mg tablet RxNorm: 970949 1 Tablet(s) PO QHS and 1 tab PO daily PRN pain 06/09/2017 Inactive hydrocodone 5 mg-acetaminophen 325 mg tablet RxNorm: 936993 1 Tablet(s) PO daily 06/09/2017 06/18/2017 Inactive testosterone cypionate 200 mg/mL intramuscular oil RxNorm: 098547 1/2 Milliliter(s ) IM 06/09/2017 06/09/2017 Inactive testosterone cypionate 200 mg/mL intramuscular oil RxNorm: 292518 Milliliter(s) IM 05/27/2017 05/27/2017 Inactive testosterone cypionate 200 mg/mL intramuscular oil RxNorm: 785130 Milliliter(s) IM 05/13/2017 05/13/2017 Inactive potassium chloride ER 10 mEq capsule,extended release RxNorm: 817814 1 Capsule(s) PO daily 05/07/2017 11/02/2017 Inactive Vitamin D2 50,000 unit capsule RxNorm: 426799 1 Capsule(s) PO QW 05/06/2017 05/05/2017 Inactive take with OTC vitamin d 2,000 units QD testosterone cypionate 200 mg/mL intramuscular kit RxNorm: 839171 1/2 kit IM 2 x month 05/06/2017 08/27/2017 Inactive Vitamin D2 50,000 unit capsule RxNorm: 536324 1 Capsule(s) PO QW 05/06/2017 08/03/2017 Inactive take with OTC vitamin d 2,000 units QD testosterone cypionate 200 mg/mL intramuscular oil RxNorm: 797377 1/2 Milliliter(s ) IM 04/29/2017 04/29/2017 Inactive fluorouracil 5 % topical cream RxNorm: 375654 1 Application TOP BID 04/28/2017 05/07/2017 Inactive testosterone cypionate 200 mg/mL intramuscular kit RxNorm: 008271 1/2 IM 2 x month 04/28/2017 05/05/2017 Inactive Pamelor 10 mg capsule RxNorm: 867428 1 Capsule(s) PO daily No Start Date Active gabapentin 300 mg capsule RxNorm: 444056 6 Capsule(s) PO daily No Start Date Active cyclobenzaprine 5 mg tablet RxNorm: 767999 1 Tablet(s) PO as needed No Start Date Active diclofenac 1 % topical gel RxNorm: 794843 1 Gram(s) TOP as needed No Start Date Active meloxicam 15 mg tablet RxNorm: 645251 1 Tablet(s) PO daily No Start Date 07/30/2017 Inactive potassium chloride ER 10 mEq tablet,extended release RxNorm: 994073 1 Tablet(s) PO daily No Start Date 05/06/2017 Inactive hydrocodone 5 mg-acetaminophen 325 mg tablet RxNorm: 451195 1 Tablet(s) PO daily No Start Date 06/08/2017 Inactive furosemide 40 mg tablet RxNorm: 595745 1 Tablet(s) PO daily No Start Date 07/29/2017 Inactive atorvastatin 40 mg tablet RxNorm: 761035 1 Tablet(s) PO QHS No Start Date 07/29/2017 Inactive clopidogrel 75 mg tablet RxNorm: 176323 1 Tablet(s) PO daily No Start Date 03/16/2018 Inactive Medication Administered Medication Codes Instructions Start Date Status testosterone cypionate 200 mg/mL intramuscular oil RxNorm: 7030079 Milliliter 03/06/2018 No longer Active testosterone cypionate 200 mg/mL intramuscular oil RxNorm: 1338068 Milliliter 02/19/2018 No longer Active testosterone cypionate 200 mg/mL intramuscular oil RxNorm: 460303 Milliliter 02/03/2018 No longer Active Kenalog 40 mg/mL suspension for injection RxNorm: 3295730 Milliliter 01/07/2018 No longer Active ceftriaxone 500 mg solution for injection RxNorm: 1198823 01/07/2018 No longer Active testosterone cypionate 200 mg/mL intramuscular oil RxNorm: 822816 1/2Milliliter 01/05/2018 No longer Active testosterone cypionate 200 mg/mL intramuscular oil RxNorm: 500887 Milliliter 12/15/2017 No longer Active testosterone cypionate 200 mg/mL intramuscular oil RxNorm: 205800 2Milliliter 12/04/2017 No longer Active testosterone cypionate 200 mg/mL intramuscular oil RxNorm: 690415 /2Milliliter 11/17/2017 No longer Active testosterone cypionate 200 mg/mL intramuscular oil RxNorm: 630970 Milliliter 10/22/2017 No longer Active testosterone cypionate 200 mg/mL intramuscular oil RxNorm: 701143 Milliliter 10/06/2017 No longer Active Kenalog 40 mg/mL suspension for injection RxNorm: 0979777 Milliliter 10/06/2017 No longer Active testosterone cypionate 200 mg/mL intramuscular oil RxNorm: 620141 Milliliter 09/23/2017 No longer Active testosterone cypionate 200 mg/mL intramuscular oil RxNorm: 111244 Milliliter 08/28/2017 No longer Active testosterone cypionate 200 mg/mL intramuscular oil RxNorm: 212017 2Milliliter 08/12/2017 No longer Active testosterone cypionate 200 mg/mL intramuscular oil RxNorm: 645403 2Milliliter 07/28/2017 No longer Active testosterone cypionate 200 mg/mL intramuscular oil RxNorm: 621854 2Milliliter 07/14/2017 No longer Active testosterone cypionate 200 mg/mL intramuscular oil RxNorm: 224995 /2Milliliter 06/26/2017 No longer Active testosterone cypionate 200 mg/mL intramuscular oil RxNorm: 906035 /2Milliliter 06/09/2017 No longer Active testosterone cypionate 200 mg/mL intramuscular oil RxNorm: 133035 Milliliter 05/27/2017 No longer Active testosterone cypionate 200 mg/mL intramuscular oil RxNorm: 696931 Milliliter 05/13/2017 No longer Active testosterone cypionate 200 mg/mL intramuscular oil RxNorm: 084606 /2Milliliter 04/29/2017 No longer Active Immunizations Vaccine [...] ICD-9: 380.4 03/17/2017 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.10 [...] Code Item Item Code Result Date Testosterone Ygk768 Testo 375.1 ng/dL 03/02/2018 Cbc With Differential [...] 25.6 pg 03/02/2018 Cbc With Differential Ord2 [place]% 7.9 % 03/02/2018 Cbc With Differential Ord2 [...] 1.41 K/ul 03/02/2018 Cbc With Differential Ord2 [place] ABS# 0.8 K/ul 03/02/2018 Cbc With Differential Ord2 Eos ABS# 0.2 K/ul 03/02/2018 Cbc With Differential Ord2 Baso ABS# 0.1 K/ul 03/02/2018 Influenza A+B Dqg494 Influ A+B Negative 01/08/2018 C A/B FLU [id number] Influenza A Scr TNP:Improper Specimen 01/07 C A/B FLU [id number] Influenza B Scr TNP:Improper Specimen 01/07 C A/B FLU [id number] IC OK? TNP:Improper Specimen 01/07/2018 C A/B FLU [id number] Influenza Intrp B AG: PRID:PT:NOSE:NOM:IF TNP:Improper Specimen 01/07/2018 Hepatic Gzy751 ALBUMIN 3.7 g/dL 08/06/2017 Hepatic Rek840 TPRO 5.9 g/dL 08/06/2017 Hepatic Wbn989 GLOB 2.2 g/dL 08/06/2017 Hepatic Lrh370 A/G Ratio 1.7 Ratio 08/06/2017 Hepatic Drt694 ALK PHOS 46 U/L 08/06/2017 Hepatic Rzo070 ALT(SGPT) 9 U/L 08/06/2017 Hepatic Vrl447 AST(SGOT) 13 U/L 08/06/2017 Hepatic Lkk815 BILI T 0.6 mg/dL 08/06/2017 Hepatic Zpb895 BILI D 0.2 mg/dL 08/06/2017 Hepatic Xlh723 BILI I 0.4 mg/dL 08/06/2017 Testosterone Oha126 Testo 474.5 ng/dL 08/06/2017 Cbc With Differential [...] 28.5 pg 08/06/2017 Cbc With Differential Ord2 [place]% 11.2 % 08/06/2017 Cbc With Differential Ord2 [...] 1.33 K/ul 08/06/2017 Cbc With Differential Ord2 [place] ABS# 0.6 K/ul 08/06/2017 Cbc With Differential Ord2 Eos ABS# 0.3 K/ul 08/06/2017 Cbc With Differential Ord2 Baso ABS# 0.1 K/ul 08/06/2017 Comp Metabolic Pgw960 NA 140 mEq/L 06/02/2017 Comp Metabolic Rtg928 K 3.8 mEq/L 06/02/2017 Comp Metabolic Whf022 CL 102 mEq/L 06/02/2017 Comp Metabolic Qld389 CO2 30.0 mEq/L 06/02/2017 Comp Metabolic Iim350 ANION GAP 12 06/02/2017 Comp Metabolic Ugm566 GLUCOSE 100 mg/dL 06/02/2017 Comp Metabolic Ybr355 Creat 1.1 mg/dL 06/02/2017 Comp Metabolic Vsr351 eGFR 69 ml/min/1.73m2 06/02/2017 Comp Metabolic Inr755 BUN 15 mg/dL 06/02/2017 Comp Metabolic Mqq194 B/C Ratio 13.4 Ratio 06/02/2017 Comp Metabolic Nbq122 CALCIUM 8.6 mg/dL 06/02/2017 Comp Metabolic Ovp779 ALK PHOS 63 U/L 06/02/2017 Comp Metabolic Vbx179 AST(SGOT) 17 U/L 06/02/2017 Comp Metabolic Haa258 ALT(SGPT) 12 U/L 06/02/2017 Comp Metabolic Dfu217 BILI T 0.5 mg/dL 06/02/2017 Comp Metabolic Koy655 ALBUMIN 3.9 g/dL 06/02/2017 Comp Metabolic Kde112 TPRO 6.1 g/dL 06/02/2017 Comp Metabolic Kmu572 GLOB 2.2 g/dL 06/02/2017 Comp Metabolic Tjw865 A/G Ratio 1.8 Ratio 06/02/2017 Comp Metabolic Qus789 Osmo 280 mOsmo 06/02/2017 Vitamin D 25 Oh Ujq9303 VITAMIN D, 25 HYDROXY 40.03 ng/mL Cbc [...] 93.0 fl 06/02/2017 Cbc With Differential Ord2 [place]% 10.5 % 06/02/2017 Cbc With Differential Ord2 [...] 1.52 K/ul 06/02/2017 Cbc With Differential Ord2 [place] ABS# 0.6 K/ul 06/02/2017 Cbc With Differential Ord2 Eos ABS# 0.2 K/ul 06/02/2017 Cbc With Differential Ord2 Baso ABS# 0.1 K/ul 06/02/2017 Testosterone Vqk709 Testo 198.4 ng/dL 04/29/2017 Vitamin D 25 Oh Ctj0304 VITAMIN D, 25 HYDROXY 29.25 ng/mL Lipid [...] Procedure Codes Date THER/PROPH/DIAG INJ SC/IM CPT-4: 94722 03/20/2018 THER/PROPH/DIAG INJ SC/IM CPT-4: 23125 03/06/2018 THER/PROPH/DIAG INJ SC/IM CPT-4: 10893 02/19/2018 THER/PROPH/DIAG INJ SC/IM CPT-4: 24692 02/03/2018 THER/PROPH/DIAG INJ SC/IM CPT-4: 87454 01/07/2018 TRIAMCINOLONE ACET INJ NOS CPT-4: J3301 01/07/2018 ROCEPHIN, PER 250 MG CPT-4: J0696 01/07/2018 THER/PROPH/DIAG INJ SC/IM CPT-4: 13953 01/05/2018 THER/PROPH/DIAG INJ SC/IM CPT-4: 82235 12/15/2017 THER/PROPH/DIAG INJ SC/IM CPT-4: 75902 12/04/2017 PPPS, SUBSEQ VISIT CPT -4: G0439 11/27/2017 ADMIN INFLUENZA VIRUS VAC CPT-4: G0008 11/17/2017 FLU VAC NO PRSV 4 FATOU 3 YRS+ CPT-4: 27129 11/17/2017 THER/PROPH/DIAG INJ SC/IM CPT-4: 87236 11/17/2017 THER/PROPH/DIAG INJ SC/IM CPT-4: 27118 10/22/2017 THER/PROPH/DIAG INJ SC/IM CPT-4: 48989 10/06/2017 TRIAMCINOLONE ACET INJ NOS CPT-4: J3301 10/06/2017 THER/PROPH/DIAG INJ SC/IM CPT-4: 63426 09/23/2017 THER/PROPH/DIAG INJ SC/IM CPT-4: 02504 08/28/2017 THER/PROPH/DIAG INJ SC/IM CPT-4: 47844 08/12/2017 THER/PROPH/DIAG INJ SC/IM CPT-4: 60826 07/28/2017 THER/PROPH/DIAG INJ SC/IM CPT-4: 97752 07/14/2017 THER/PROPH/DIAG INJ SC/IM CPT-4: 24403 06/26/2017 THER/PROPH/DIAG INJ SC/IM CPT-4: 56574 06/09/2017 THER/PROPH/DIAG INJ SC/IM CPT-4: 42476 05/27/2017 THER/PROPH/DIAG INJ SC/IM CPT-4: 19011 05/13/2017 THER/PROPH/DIAG INJ SC/IM CPT-4: 59176 04/29/2017 Vital Signs Date Vital 03/20/2018 Blood Pressure 1: 122/60 Code : 8480-6 Heart Rate 1: 76 bpm Height: 5'10" SpO2: 96% Weight: 03/10/2018 Blood Pressure 1: 120/70 Code : 8480-6 BMI: 29.0 Code : 31196-7 Heart Rate 1 : 82 bpm Height: 5'10" SpO2: 95% Weight: 202 lbs 01/07/2018 Blood Pressure 1: 126/66 Code : 8480-6 BMI: 30.1 Code : 91589-0 Heart Rate 1 : 75 bpm Height: 5'10" SpO2: 97% Temperature: 36.5 (C) / 97.7 (F) Weight: 210 lbs 12/22/2017 Blood Pressure 1: 124/70 Code : 8480-6 BMI: 29.7 Code : 95733-2 Heart Rate 1 : 84 bpm Height: 5'10" SpO2: 94% Weight: 207 lbs 12/15/2017 Blood Pressure 1: 122/82 Code : 8480-6 BMI: 30.0 Code : 44061-7 Heart Rate 1 : 82 bpm Height: 5'10" SpO2: 93% Weight: 209 lbs 11/27/2017 Blood Pressure 1: 132/68 Code : 8480-6 BMI: 29.3 Code : 33630-4 Heart Rate 1 : 71 bpm Height: 5'10" SpO2: 97% Waist Measure (cm): 97 cm Weight: 204 lbs 11/17/2017 Blood Pressure 1: 130/80 Code : 8480-6 BMI: 29.3 Code : 50454-9 Heart Rate 1 : 73 bpm Height: 5'10" SpO2: 99% Weight: 204 lbs 10/06/2017 Blood Pressure 1: 124/60 Code : 8480-6 BMI: 28.8 Code : 19136-3 Heart Rate 1 : 70 bpm Height: 5'10" SpO2: 98% Weight: 201 lbs 07/24/2017 Blood Pressure 1: 118/70 Code : 8480-6 BMI: 29.3 Code : 22640-7 Heart Rate 1 : 82 bpm Height: 5'10" SpO2: 96% Weight: 204 lbs 07/14/2017 Blood Pressure 1: 118/72 Code : 8480-6 BMI: 29.1 Code : 97321-8 Heart Rate 1 : 83 bpm Height: 5'10" SpO2: 98% Weight: 203 lbs 06/09/2017 Blood Pressure 1: 120/74 Code : 8480-6 BMI: 29.3 Code : 02759-5 Heart Rate 1 : 91 bpm Height: 5'10" SpO2: 99% Weight: 204 lbs 04/28/2017 Blood Pressure 1: 118/68 Code : 8480-6 BMI: 28.8 Code : 41491-9 Heart Rate 1 : 74 bpm Height: 5'10" SpO2: 96% Weight: 201 lbs 03/14/2017 Blood Pressure 1: 114/74 Code : 8480-6 BMI: 28.6 Code : 98385-8 Heart Rate 1 : 77 bpm Height: [...] Diagnosis: Testicular hypofunction[ICD10: E29.1] Elise Hollis MD, [facility] CPT-4: 00961 03/20/2018 ([id number]) 74180 EST. 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 PATIENT, LEVEL III Diagnosis: Other malaise[ICD10: R53.81] Diagnosis: Acute laryngopharyngitis[ICD10: J06.0] Diagnosis: Other allergic rhinitis[ICD10: J30.89] Sapphire Hollis MD, [facility] CPT-4: 19424 01/07/2018 ([id number]) 32484 EST. PATIENT, LEVEL III Diagnosis: Spinal stenosis, lumbosacral region[ICD10: M48.07] Diagnosis: Spinal stenosis, cervical region[ICD10: M48.02] Elise Hollis MD, [facility] CPT-4: 25842 12/22/2017 ([id number]) 29465 EST. 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 PATIENT, LEVEL III Diagnosis: Mixed hyperlipidemia[ICD10: E78.2] Diagnosis: Other insomnia[ICD10: G47.09] Leora Hollis MD, [facility] CPT- 4: 97823 11/17/2017 [id number] EST. PATIENT, LEVEL III Diagnosis: Acute laryngopharyngitis[ICD10: J06.0] Diagnosis: Other allergic rhinitis[ICD10: J30.89] Sapphire Hollis MD, [facility] CPT-4: 39285 10/06/2017 [id number] EST. PATIENT, LEVEL III Diagnosis: Pain in left shoulder[ICD10: M25.512] Sapphire Hollis MD, [facility] CPT-4: 53403 07/24/2017 ([id number]) 29149 EST. 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] Diagnosis: Mixed hyperlipidemia[ICD10: E78.2] Diagnosis: Hypoxemia[ICD10: R09.02] Leora Hollis MD, [facility] CPT-4: 23377 06/09/2017 ([id number]) 10622 EST. 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] Leora Hollis MD, [facility] CPT-4: 00825 04/28/2017 ([id number]) Miscellaneous no charge Diagnosis: Impacted cerumen, bilateral[ICD10: H61.23] Leora Hollis MD, [facility] CPT-4: 65627 03/17/2017 ([id number]) OFFICE VISIT, NEW - LEVEL 4 Diagnosis: Mixed hyperlipidemia[ICD10: E78.2] Diagnosis: Chronic pain syndrome[ICD10: G89.4] Diagnosis: Presbycusis, bilateral[ICD10: H91.13] Diagnosis: Impacted cerumen, bilateral[ICD10: H61.23] Diagnosis: Atherosclerotic heart disease of platinum coronary artery without angina pectoris[ICD10: I25.10] Diagnosis: Personal history of other diseases of the circulatory system[ICD10: Z86.79] Leora Hollis MD, [facility] CPT-4: 30766 2017 Plan of Care Planned Activity Notes [...] rotator cuff tear -schedule appt with Dr aBck 03/20/2018 Appointment: [phone] (15 min) Moderate 03/20/2018 Appointment: (15 min) Moderate 03/20/2018 Patient Education: Patient Medication Summary Completed 03/20/2018 Visit Plan: Spinal stenosis with back pain - refilled hydrocodone- keep appt with Director Of Compensation for treatment of stenosis of arteries, then pt most-likely to have surgical intervention of spine. PAD - pt will need surgical intervention with stenting. Testicular hypofunction - continue with testosterone. 03/10/2018 App[facility] [phone] [facility] (15 min) Moderate 03/10/2018 Patient Education: Patient Medication Summary Completed 03/10/2018 Patient Education: Back Pain Completed 03/10/2018 Patient Education: Cholesterol Management Completed 03/10/2018 Appointment: [facility] [phone] [facility] (15 min) Moderate 03/09/2018 Appointment: Injection 03/06/2018 [...] spray. 01/07/2018 Appointment: Sapphire [facility]il [facility] [phone] [facility] (15 min) Moderate 01/07/2018 Patient Education: [...] plan. 12/22/2017 Appointment: Elise Castillo WPtel: [phone] [phone] [place] (15 min) Moderate 12/22/2017 Patient Education: Patient Medication Summary Completed 12/22/2017 Visit Plan: Neck and low back pain -will schedule MRI lumbar and cervical spine for further evaluation and proceed as indicated- patient verbalized understanding of plan. 12/15/2017 Appointment: [facility] [phone] [phone] [place] (15 min) Moderate 12/15/2017 Patient Education: Patient Medication Summary Completed 12/15/2017 Patient Education: Back Pain Completed 12/15/2017 Care Plan: MRI LUMBAR SPINE W/O DYE LOINC : 30642-7 Pending 12/15/2017 Care Plan: MRI NECK SPINE W/O DYE LOINC : 02754-0 Pending 12/15/2017 Appointment: Injection 12/04/2017 Patient Education: [...] care surrogate. 11/27/2017 Appointment: Sapphire Oneil WPtel: [phone] [facility] MCR - Annual Wellness Visit 11/27/2017 Patient [...] to sleep 11/17/2017 Appointment: Leora Hollis WPtel: [phone] [facility] (15 min) Moderate 11/17/2017 Patient [...] spray. 10/06/2017 Appointment: [facility] [phone] [facility] [place] (15 min) Moderate 10/06/2017 Appointment[facility] S[facility]hire Oneil [facility]Ptel[facility] [phone] [facility] [place] (15 min) Moderate 10/06/2017 Patient Education: [...] treatment plan. 07/24/2017 Appointment[facility] [phone] [facility] (30 min) Complex 07/24/2017 Patient Education: [...] to medications. 07/14/2017 Appointment: [facility] [phone] [facility] [place] (15 min) Moderate 07/14/2017 Patient Education: Patient Medication Summary Completed 07/14/2017 Appointment: [facility] [phone] [facility] (15 min) Moderate 07/10/2017 Appointment: Injection 06/26/2017 [...] night 06/09/2017 Appointment: [facility] [phone] [facility] (30 min) Complex 06/09/2017 Patient Education: Patient [...] 15 04/28/2017 Appointment: [facility] [phone] [facility] (30 min) Complex 04/28/2017 Patient Education: Patient [...] wax removal 03/14/2017 Appointment: Leora Hollis WPtel: [id number] New Patient 03/14/2017 Patient Education: Patient Medication [...] pain - refilled hydrocodone- keep appt with Director Of Compensation for treatment of stenosis of arteries, then pt most- likely to have surgical intervention of spine. PAD - pt will need surgical intervention with stenting. Testicular hypofunction - continue with testosterone. REFER FOR PHYSICAL THERAPY AT [facility] -HE HAS A PT HE HAS SEEN THERE BEFORE KEEP APPT WITH DR STEWARD . Cervical and lumbar stenosis -refer for PT to evaluate and treat -follow up with DR Steward as scheduled -refill hydrocodone for prn use only -discussed with patient that he is to use it for breakthrough pain only -patient verbalized understanding of plan. . Increased left shoulder pain and weakness after fall - Discussed with Dr. Back office - they are going to contact him tomorrow for a possible appointment - pt is to notify clinic with any change in the current treatment plan.
--- OUTSIDE RECORDS SUMMARY | 2018-06-12 09:17 | XMS REPORT | CCD ---
Author Author [facility] Organization [facility] Address [address] [place] [address] Phone Care Team Providers Care Bonding Molder Name Role Phone PP Unavailable CCM Unavailable Summary Purpose Interface Exchange Insurance Providers Payer name Policy type / Coverage type Covered alliance party ID Effective Begin Date Effective End Date WPS Medicare Part B Medicare Part B [id number] 2017 Unknown [facility] Medicare Part B [id number] 2017 Unknown Family history Father Diagnosis Age At Onset Heart Attack Unknown Social History Social History Element Codes Description Effective Dates Marital status Unknown 03/14/2017 Number of children Unknown 2 03/14/[address]: 7741515 Former smoker Quit 11/03/00; smoke 1/2 pack/day x15 years 03/14/[address]: 157440816 Never drinks alcohol 03/14/2017 Allergies, Adverse Reactions, [...] ICD-9: 719.41 ICD-10: M25.512 Active 07/24/2017 Unknown Low back pain ICD-9: 724.2 ICD-10: M54.5 Active 12/15/2017 Unknown Mixed hyperlipidemia ICD-9: 272.2 ICD-10: E78.2 Active 03/14/2017 Unknown Spinal stenosis, lumbosacral region ICD-9: 724.02 ICD-10: M48.07 Active 12/22/2017 Unknown 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..] H61.23 03/14/2017 Active 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 ICD-10: I25.10 03/14/2017 Active Chronic pain syndrome ICD-9: 338.4 ICD-10: G89.4 03/14/2017 Active Personal history of other diseases of the circulatory system ICD-9: V12.59 ICD-10: Z86.79 03/14/2017 Active Presbycusis, 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 03/14/2017 Active Medications Medication Codes Instructions Start Date Stop Date Status Fill Instructions mupirocin 2 % topical ointment RxNorm: 372158 1 Application TOP BID 03/20/2018 03/26/2018 Active atorvastatin 40 mg tablet RxNorm: 462743 TAKE ONE TABLET BY MOUTH DAILY 03/20/2018 09/10/2019 Active hydrocodone 5 mg-acetaminophen 325 mg tablet RxNorm: 912426 1-2 Tablet(s) PO Q6 PRN 03/20/2018 04/18/2018 Active Keflex 500 mg capsule RxNorm: 410706 1 Capsule(s) PO TID 201803/26/2018 Active zolpidem 5 mg tablet RxNorm: 106252 Tablet(s) TAKE ONE TABLET BY MOUTH EVERY NIGHT AT BEDTIME NEEDED 03/18/2018 Active clopidogrel 75 mg tablet RxNorm: 508031 1 Tablet(s) PO daily 04/15/2018 Active furosemide 40 mg tablet RxNorm: 572082 TAKE ONE TABLET BY MOUTH DAILY 03/17/2018 09/12/2018 Active testosterone cypionate 200 mg/mL intramuscular oil RxNorm: 9436589 Milliliter(s) IM 03/06/2018 03/06/2018 Inactive testosterone cypionate 200 mg/mL intramuscular oil RxNorm: 2015417 Milliliter(s) IM 02/19/2018 02/19/2018 Inactive hydrocodone 5 mg-acetaminophen 325 mg tablet RxNorm: 052365 1-2 Tablet(s) PO Q6 PRN 02/18/2018 03/09/2018 Inactive zolpidem 5 mg tablet RxNorm: 074336 TAKE ONE TABLET BY MOUTH EVERY NIGHT AT BEDTIME NEEDED 02/13/2018 03/13/2018 Inactive meloxicam 15 mg tablet RxNorm: 796464 TAKE ONE TABLET BY MOUTH DAILY 02/13/2018 08/11/2018 Active testosterone cypionate 200 mg/mL intramuscular kit RxNorm: 813278 1/2 Milliliter(s ) IM [id number] 02/03/2018 08/01/2018 Active testosterone cypionate 200 mg/mL intramuscular oil RxNorm: 360945 Milliliter(s) IM 02/03/2018 02/03/2018 Inactive prednisone 20 mg tablet RxNorm: 075044 2 Tablet(s) PO QAM 01/0901/13/2018 Inactive cefdinir 300 mg capsule RxNorm: 763901 1 Capsule(s) PO BID 01/18/2018 Inactive prednisone 20 mg tablet RxNorm: 773392 2 Tablet(s) PO QAM 01/0901/08/2018 Inactive cefdinir 300 mg capsule RxNorm: 946404 1 Capsule(s) PO BID 01/08/2018 Inactive Zithromax Z-Timothy 250 mg tablet RxNorm: 865327 1 Tablet(s) PO UD 01/07/2018 No Stop Date Active Kenalog 40 mg/mL suspension for injection RxNorm: 5061252 Milliliter(s) Inj 01/07/2018 01/07/2018 Inactive ceftriaxone 500 mg solution for injection RxNorm: 7173084 Inj 01/07/2018 01/07/2018 Inactive testosterone cypionate 200 mg/mL intramuscular oil RxNorm: 451172 1/2 Milliliter(s ) IM 01/05/2018 01/05/2018 Inactive hydrocodone 5 mg-acetaminophen 325 mg tablet RxNorm: 804121 1-2 Tablet(s) PO Q6 PRN 12/22/2017 02/17/2018 Inactive zolpidem 5 mg tablet RxNorm: 255173 1 Tablet(s) PO 30 min before QHS 12/15/2017 02/12/2018 Inactive testosterone cypionate 200 mg/mL intramuscular oil RxNorm: 990929 Milliliter(s) IM 12/15/2017 12/15/2017 Inactive testosterone cypionate 200 mg/mL intramuscular oil RxNorm: 434080 1/2 Milliliter(s ) IM 12/04/2017 12/04/2017 Inactive testosterone cypionate 200 mg/mL intramuscular oil RxNorm: 660736 1/2 Milliliter(s ) IM 11/17/2017 11/17/2017 Inactive potassium chloride ER 10 mEq capsule,extended release RxNorm: 732351 TAKE ONE CAPSULE BY MOUTH DAILY 11/11/20172018 Active testosterone cypionate 200 mg/mL intramuscular oil RxNorm: 862425 Milliliter(s) IM 10/22/2017 10/22/2017 Inactive zolpidem 5 mg tablet RxNorm: 358905 1 Tablet(s) PO 30 min before QHS 10/15/2017 10/14/2017 Inactive zolpidem 5 mg tablet RxNorm: 446203 1 Tablet(s) PO 30 min before QHS 10/15/2017 12/13/2017 Inactive Zithromax Z-Timothy 250 mg tablet RxNorm: 503950 1 Tablet(s) PO UD 10/07/2017 11/16/2017 Inactive testosterone cypionate 200 mg/mL intramuscular oil RxNorm: 915315 Milliliter(s) IM 10/06/2017 10/06/2017 Inactive Kenalog 40 mg/mL suspension for injection RxNorm: 2802950 Milliliter(s) Inj 10/06/2017 10/06/2017 Inactive Zithromax Z-Timothy 250 mg tablet RxNorm: 321502 1 Tablet(s) PO UD 10/06/2017 10/06/2017 Inactive testosterone cypionate 200 mg/mL intramuscular oil RxNorm: 987643 Milliliter(s) IM 09/23/2017 09/23/2017 Inactive testosterone cypionate 200 mg/mL intramuscular kit RxNorm: 417343 1/2 Milliliter(s ) IM [id number] 08/28/2017 02/02/2018 Inactive meloxicam 15 mg tablet RxNorm: 222718 TAKE ONE TABLET BY MOUTH DAILY 08/28/2017 02/12/2018 Inactive testosterone cypionate 200 mg/mL intramuscular oil RxNorm: 623106 Milliliter(s) IM 08/28/2017 08/28/2017 Inactive testosterone cypionate 200 mg/mL intramuscular oil RxNorm: 068726 1/2 Milliliter(s ) IM 08/12/2017 08/12/2017 Inactive meloxicam 15 mg tablet RxNorm: 746311 1 Tablet(s) PO daily 08/201708/27/2017 Inactive atorvastatin 40 mg tablet RxNorm: 179523 TAKE ONE TABLET BY MOUTH DAILY 07/30/2017 02/24/2018 Inactive furosemide 40 mg tablet RxNorm: 486754 TAKE ONE TABLET BY MOUTH DAILY 07/30/2017 02/24/2018 Inactive testosterone cypionate 200 mg/mL intramuscular oil RxNorm: 366408 1/2 Milliliter(s ) IM 07/28/2017 07/28/2017 Inactive testosterone cypionate 200 mg/mL intramuscular oil RxNorm: 506117 1/2 Milliliter(s ) IM 07/14/2017 07/14/2017 Inactive testosterone cypionate 200 mg/mL intramuscular oil RxNorm: 770504 1/2 Milliliter(s ) IM 06/26/2017 06/26/2017 Inactive hydrocodone 5 mg-acetaminophen 325 mg tablet RxNorm: 356764 1 Tablet(s) PO QHS and 1 tab PO daily PRN pain 06/09/2017 Inactive hydrocodone 5 mg-acetaminophen 325 mg tablet RxNorm: 433859 1 Tablet(s) PO daily 06/09/2017 06/18/2017 Inactive testosterone cypionate 200 mg/mL intramuscular oil RxNorm: 530423 1/2 Milliliter(s ) IM 06/09/2017 06/09/2017 Inactive testosterone cypionate 200 mg/mL intramuscular oil RxNorm: 548298 Milliliter(s) IM 05/27/2017 05/27/2017 Inactive testosterone cypionate 200 mg/mL intramuscular oil RxNorm: 059097 Milliliter(s) IM 05/13/2017 05/13/2017 Inactive potassium chloride ER 10 mEq capsule,extended release RxNorm: 343783 1 Capsule(s) PO daily 05/07/2017 11/02/2017 Inactive Vitamin D2 50,000 unit capsule RxNorm: 881336 1 Capsule(s) PO QW 05/06/2017 05/05/2017 Inactive take with OTC vitamin d 2,000 units QD testosterone cypionate 200 mg/mL intramuscular kit RxNorm: 874976 1/2 kit IM 2 x month 05/06/2017 08/27/2017 Inactive Vitamin D2 50,000 unit capsule RxNorm: 019579 1 Capsule(s) PO QW 05/06/2017 08/03/2017 Inactive take with OTC vitamin d 2,000 units QD testosterone cypionate 200 mg/mL intramuscular oil RxNorm: 499233 1/2 Milliliter(s ) IM 04/29/2017 04/29/2017 Inactive fluorouracil 5 % topical cream RxNorm: 907554 1 Application TOP BID 04/28/2017 05/07/2017 Inactive testosterone cypionate 200 mg/mL intramuscular kit RxNorm: 819907 1/2 IM 2 x month 04/28/2017 05/05/2017 Inactive Pamelor 10 mg capsule RxNorm: 105675 1 Capsule(s) PO daily No Start Date Active gabapentin 300 mg capsule RxNorm: 836646 6 Capsule(s) PO daily No Start Date Active cyclobenzaprine 5 mg tablet RxNorm: 089554 1 Tablet(s) PO as needed No Start Date Active diclofenac 1 % topical gel RxNorm: 632323 1 Gram(s) TOP as needed No Start Date Active meloxicam 15 mg tablet RxNorm: 011201 1 Tablet(s) PO daily No Start Date 07/30/2017 Inactive potassium chloride ER 10 mEq tablet,extended release RxNorm: 437400 1 Tablet(s) PO daily No Start Date 05/06/2017 Inactive hydrocodone 5 mg-acetaminophen 325 mg tablet RxNorm: 033560 1 Tablet(s) PO daily No Start Date 06/08/2017 Inactive furosemide 40 mg tablet RxNorm: 989700 1 Tablet(s) PO daily No Start Date 07/29/2017 Inactive atorvastatin 40 mg tablet RxNorm: 522852 1 Tablet(s) PO QHS No Start Date 07/29/2017 Inactive clopidogrel 75 mg tablet RxNorm: 549757 1 Tablet(s) PO daily No Start Date 03/16/2018 Inactive Medication Administered Medication Codes Instructions Start Date Status testosterone cypionate 200 mg/mL intramuscular oil RxNorm: 5999190 Milliliter 03/06/2018 No longer Active testosterone cypionate 200 mg/mL intramuscular oil RxNorm: 1347513 Milliliter 02/19/2018 No longer Active testosterone cypionate 200 mg/mL intramuscular oil RxNorm: 706730 Milliliter 02/03/2018 No longer Active Kenalog 40 mg/mL suspension for injection RxNorm: 1221742 Milliliter 01/07/2018 No longer Active ceftriaxone 500 mg solution for injection RxNorm: 6455523 01/07/2018 No longer Active testosterone cypionate 200 mg/mL intramuscular oil RxNorm: 216844 1/2Milliliter 01/05/2018 No longer Active testosterone cypionate 200 mg/mL intramuscular oil RxNorm: 978088 Milliliter 12/15/2017 No longer Active testosterone cypionate 200 mg/mL intramuscular oil RxNorm: 180885 2Milliliter 12/04/2017 No longer Active testosterone cypionate 200 mg/mL intramuscular oil RxNorm: 565679 /2Milliliter 11/17/2017 No longer Active testosterone cypionate 200 mg/mL intramuscular oil RxNorm: 283248 Milliliter 10/22/2017 No longer Active Kenalog 40 mg/mL suspension for injection RxNorm: 6613931 Milliliter 10/06/2017 No longer Active testosterone cypionate 200 mg/mL intramuscular oil RxNorm: 424828 Milliliter 10/06/2017 No longer Active testosterone cypionate 200 mg/mL intramuscular oil RxNorm: 121539 Milliliter 09/23/2017 No longer Active testosterone cypionate 200 mg/mL intramuscular oil RxNorm: 256557 Milliliter 08/28/2017 No longer Active testosterone cypionate 200 mg/mL intramuscular oil RxNorm: 685162 2Milliliter 08/12/2017 No longer Active testosterone cypionate 200 mg/mL intramuscular oil RxNorm: 682368 2Milliliter 07/28/2017 No longer Active testosterone cypionate 200 mg/mL intramuscular oil RxNorm: 058401 /2Milliliter 07/14/2017 No longer Active testosterone cypionate 200 mg/mL intramuscular oil RxNorm: 175309 /2Milliliter 06/26/2017 No longer Active testosterone cypionate 200 mg/mL intramuscular oil RxNorm: 506615 /2Milliliter 06/09/2017 No longer Active testosterone cypionate 200 mg/mL intramuscular oil RxNorm: 724030 Milliliter 05/27/2017 No longer Active testosterone cypionate 200 mg/mL intramuscular oil RxNorm: 094214 Milliliter 05/13/2017 No longer Active testosterone cypionate 200 mg/mL intramuscular oil RxNorm: 972440 /2Milliliter 04/29/2017 No longer Active Immunizations Vaccine Codes Date Status Influenza CVX: 141 11/17/2017 completed Assessments Condition Codes Effective Dates Pain in left shoulder ICD-10: M25.512 ICD-9: 719.41 03/20/2018 Cellulitis of face ICD-10: L03.211 ICD-9: 682.0 03/20/2018 Mixed hyperlipidemia ICD-10: E78.2 ICD-9: 272.2 03/10/2018 Spinal stenosis, lumbosacral region ICD-10: M48.07 ICD-9: 724.02 03/10/2018 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 ICD-9: 257.2 03/10/2018 Low back pain ICD-10: M54.5 ICD-9: [...] ICD-9: 380.4 03/17/2017 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 [...] Code Item Item Code Result Date Testosterone Cqz892 Testo 375.1 ng/dL 03/02/2018 Cbc With Differential [...] 25.6 pg 03/02/2018 Cbc With Differential Ord2 [place]% 7.9 % 03/02/2018 Cbc With Differential Ord2 [...] 1.41 K/ul 03/02/2018 Cbc With Differential Ord2 [place] ABS# 0.8 K/ul 03/02/2018 Cbc With Differential Ord2 Eos ABS# 0.2 K/ul 03/02/2018 Cbc With Differential Ord2 Baso ABS# 0.1 K/ul 03/02/2018 Influenza A+B Ozc674 Influ A+B Negative 01/08/2018 C A/B FLU [id number] Influenza A Scr TNP:Improper Specimen 01/07 C A/B FLU [id number] Influenza B Scr TNP:Improper Specimen 01/07 C A/B FLU [id number] Influenza Intrp B AG: PRID:PT:NOSE:NOM:IF TNP:Improper Specimen 01/07/2018 C A/B FLU [id number] IC OK? TNP:Improper Specimen 01/07/2018 Hepatic Nlr699 ALBUMIN 3.7 g/dL 08/06/2017 Hepatic Qfv432 TPRO 5.9 g/dL 08/06/2017 Hepatic Oar866 GLOB 2.2 g/dL 08/06/2017 Hepatic Gca701 A/G Ratio 1.7 Ratio 08/06/2017 Hepatic Cko822 ALK PHOS 46 U/L 08/06/2017 Hepatic Nnk705 ALT(SGPT) 9 U/L 08/06/2017 Hepatic Szj246 AST(SGOT) 13 U/L 08/06/2017 Hepatic Gvp521 BILI T 0.6 mg/dL 08/06/2017 Hepatic Bqh306 BILI D 0.2 mg/dL 08/06/2017 Hepatic Bhx209 BILI I 0.4 mg/dL 08/06/2017 Testosterone Cey422 Testo 474.5 ng/dL 08/06/2017 Cbc With Differential [...] 28.5 pg 08/06/2017 Cbc With Differential Ord2 [place]% 11.2 % 08/06/2017 Cbc With Differential Ord2 [...] 1.33 K/ul 08/06/2017 Cbc With Differential Ord2 [place] ABS# 0.6 K/ul 08/06/2017 Cbc With Differential Ord2 Eos ABS# 0.3 K/ul 08/06/2017 Cbc With Differential Ord2 Baso ABS# 0.1 K/ul 08/06/2017 Comp Metabolic Tnp650 NA 140 mEq/L 06/02/2017 Comp Metabolic Vgb747 K 3.8 mEq/L 06/02/2017 Comp Metabolic Uqd853 CL 102 mEq/L 06/02/2017 Comp Metabolic Err925 CO2 30.0 mEq/L 06/02/2017 Comp Metabolic Zwd935 ANION GAP 12 06/02/2017 Comp Metabolic Dgt062 GLUCOSE 100 mg/dL 06/02/2017 Comp Metabolic Mvt878 Creat 1.1 mg/dL 06/02/2017 Comp Metabolic Bsp594 eGFR 69 ml/min/1.73m2 06/02/2017 Comp Metabolic Lzp333 BUN 15 mg/dL 06/02/2017 Comp Metabolic Cps952 B/C Ratio 13.4 Ratio 06/02/2017 Comp Metabolic Icn091 CALCIUM 8.6 mg/dL 06/02/2017 Comp Metabolic Zwy761 ALK PHOS 63 U/L 06/02/2017 Comp Metabolic Fqp707 AST(SGOT) 17 U/L 06/02/2017 Comp Metabolic Drx722 ALT(SGPT) 12 U/L 06/02/2017 Comp Metabolic Aqc875 BILI T 0.5 mg/dL 06/02/2017 Comp Metabolic Dzh901 ALBUMIN 3.9 g/dL 06/02/2017 Comp Metabolic Hnr873 TPRO 6.1 g/dL 06/02/2017 Comp Metabolic Nsn620 GLOB 2.2 g/dL 06/02/2017 Comp Metabolic Nhy534 A/G Ratio 1.8 Ratio 06/02/2017 Comp Metabolic Fwr318 Osmo 280 mOsmo 06/02/2017 Vitamin D 25 Oh Wsn7053 VITAMIN D, 25 HYDROXY 40.03 ng/mL Cbc [...] 29.7 pg 06/02/2017 Cbc With Differential Ord2 [place]% 10.5 % 06/02/2017 Cbc With Differential Ord2 [...] 1.52 K/ul 06/02/2017 Cbc With Differential Ord2 [place] ABS# 0.6 K/ul 06/02/2017 Cbc With Differential Ord2 Eos ABS# 0.2 K/ul 06/02/2017 Cbc With Differential Ord2 Baso ABS# 0.1 K/ul 06/02/2017 Testosterone Nut552 Testo 198.4 ng/dL 04/29/2017 Vitamin D 25 Oh Tzu6567 VITAMIN D, 25 HYDROXY 29.25 ng/mL Lipid [...] Procedure Codes Date THER/PROPH/DIAG INJ SC/IM CPT-4: 06229 03/20/2018 THER/PROPH/DIAG INJ SC/IM CPT-4: 10905 03/06/2018 THER/PROPH/DIAG INJ SC/IM CPT-4: 96920 02/19/2018 THER/PROPH/DIAG INJ SC/IM CPT-4: 19630 02/03/2018 THER/PROPH/DIAG INJ SC/IM CPT-4: 13579 01/07/2018 TRIAMCINOLONE ACET INJ NOS CPT-4: J3301 01/07/2018 ROCEPHIN, PER 250 MG CPT-4: J0696 01/07/2018 THER/PROPH/DIAG INJ SC/IM CPT-4: 07392 01/05/2018 THER/PROPH/DIAG INJ SC/IM CPT-4: 68790 12/15/2017 THER/PROPH/DIAG INJ SC/IM CPT-4: 72732 12/04/2017 PPPS, SUBSEQ VISIT CPT -4: G0439 11/27/2017 ADMIN INFLUENZA VIRUS VAC CPT-4: G0008 11/17/2017 FLU VAC NO PRSV 4 FATOU 3 YRS+ CPT-4: 11941 11/17/2017 THER/PROPH/DIAG INJ SC/IM CPT-4: 84238 11/17/2017 THER/PROPH/DIAG INJ SC/IM CPT-4: 73734 10/22/2017 THER/PROPH/DIAG INJ SC/IM CPT-4: 49002 10/06/2017 TRIAMCINOLONE ACET INJ NOS CPT-4: J3301 10/06/2017 THER/PROPH/DIAG INJ SC/IM CPT-4: 27295 09/23/2017 THER/PROPH/DIAG INJ SC/IM CPT-4: 03317 08/28/2017 THER/PROPH/DIAG INJ SC/IM CPT-4: 86440 08/12/2017 THER/PROPH/DIAG INJ SC/IM CPT-4: 21803 07/28/2017 THER/PROPH/DIAG INJ SC/IM CPT-4: 51163 07/14/2017 THER/PROPH/DIAG INJ SC/IM CPT-4: 15067 06/26/2017 THER/PROPH/DIAG INJ SC/IM CPT-4: 61083 06/09/2017 THER/PROPH/DIAG INJ SC/IM CPT-4: 75681 05/27/2017 THER/PROPH/DIAG INJ SC/IM CPT-4: 74658 05/13/2017 THER/PROPH/DIAG INJ SC/IM CPT-4: 20421 04/29/2017 Vital Signs Date Vital 03/20/2018 Blood Pressure 1: 122/60 Code : 8480-6 Heart Rate 1: 76 bpm Height: 5'10" SpO2: 96% Weight: 03/10/2018 Blood Pressure 1: 120/70 Code : 8480-6 BMI: 29.0 Code : 86141-8 Heart Rate 1 : 82 bpm Height: 5'10" SpO2: 95% Weight: 202 lbs 01/07/2018 Blood Pressure 1: 126/66 Code : 8480-6 BMI: 30.1 Code : 71169-0 Heart Rate 1 : 75 bpm Height: 5'10" SpO2: 97% Temperature: 36.5 (C) / 97.7 (F) Weight: 210 lbs 12/22/2017 Blood Pressure 1: 124/70 Code : 8480-6 BMI: 29.7 Code : 91029-0 Heart Rate 1 : 84 bpm Height: 5'10" SpO2: 94% Weight: 207 lbs 12/15/2017 Blood Pressure 1: 122/82 Code : 8480-6 BMI: 30.0 Code : 08466-8 Heart Rate 1 : 82 bpm Height: 5'10" SpO2: 93% Weight: 209 lbs 11/27/2017 Blood Pressure 1: 132/68 Code : 8480-6 BMI: 29.3 Code : 37037-1 Heart Rate 1 : 71 bpm Height: 5'10" SpO2: 97% Waist Measure (cm): 97 cm Weight: 204 lbs 11/17/2017 Blood Pressure 1: 130/80 Code : 8480-6 BMI: 29.3 Code : 58191-2 Heart Rate 1 : 73 bpm Height: 5'10" SpO2: 99% Weight: 204 lbs 10/06/2017 Blood Pressure 1: 124/60 Code : 8480-6 BMI: 28.8 Code : 07244-4 Heart Rate 1 : 70 bpm Height: 5'10" SpO2: 98% Weight: 201 lbs 07/24/2017 Blood Pressure 1: 118/70 Code : 8480-6 BMI: 29.3 Code : 63867-0 Heart Rate 1 : 82 bpm Height: 5'10" SpO2: 96% Weight: 204 lbs 07/14/2017 Blood Pressure 1: 118/72 Code : 8480-6 BMI: 29.1 Code : 33112-5 Heart Rate 1 : 83 bpm Height: 5'10" SpO2: 98% Weight: 203 lbs 06/09/2017 Blood Pressure 1: 120/74 Code : 8480-6 BMI: 29.3 Code : 46769-2 Heart Rate 1 : 91 bpm Height: 5'10" SpO2: 99% Weight: 204 lbs 04/28/2017 Blood Pressure 1: 118/68 Code : 8480-6 BMI: 28.8 Code : 34789-3 Heart Rate 1 : 74 bpm Height: 5'10" SpO2: 96% Weight: 201 lbs 03/14/2017 Blood Pressure 1: 114/74 Code : 8480-6 BMI: 28.6 Code : 24858-8 Heart Rate 1 : 77 bpm Height: [...] L03.211] Diagnosis: Pain in left shoulder[ICD10: M25.512] Elise Hollis MD, [facility] CPT-4: 91738 03/20/2018 ([id number]) 62774 EST. PATIENT, LEVEL IV Diagnosis: Low back pain[ICD10: M54.5] Diagnosis: Mixed hyperlipidemia[ICD10: E78.2] Diagnosis: Spinal stenosis, lumbosacral region[ICD10: M48.07] Diagnosis: Testicular hypofunction[ICD10: E29.1] Leora Hollis MD, [facility] CPT-4: 03424 03/10/2018 03421 EST. PATIENT, LEVEL III Diagnosis: Other malaise[ICD10: R53.81] Diagnosis: Acute laryngopharyngitis[ICD10: J06.0] Diagnosis: Other allergic rhinitis[ICD10: J30.89] Sapphire Hollis MD, [facility] CPT-4: 82343 01/07/2018 ([id number]) 05502 EST. PATIENT, LEVEL III Diagnosis: Spinal stenosis, lumbosacral region[ICD10: M48.07] Diagnosis: Spinal stenosis, cervical region[ICD10: M48.02] Elise Hollis MD, [facility] CPT-4: 39772 12/22/2017 [id number]) 60200 EST. PATIENT, LEVEL III Diagnosis: Cervicalgia[ICD10: M54.2] Diagnosis: Low back pain[ICD10: M54.5] Diagnosis: Testicular hypofunction[ICD10: E29.1] Elise Hollis MD, [facility] CPT-4: 45319 12/15/2017 ([id number]) 02707 EST. PATIENT, LEVEL III Diagnosis: Mixed hyperlipidemia[ICD10: E78.2] Diagnosis: Other insomnia[ICD10: G47.09] Leora Hollis MD, [facility] CPT- 4: 21031 11/17/2017 [id number] EST. PATIENT, LEVEL III Diagnosis: Acute laryngopharyngitis[ICD10: J06.0] Diagnosis: Other allergic rhinitis[ICD10: J30.89] Sapphire Hollis MD, [facility] CPT-4: 37319 10/06/2017 [id number] EST. PATIENT, LEVEL III Diagnosis: Pain in left shoulder[ICD10: M25.512] Sapphire Hollis MD, [facility] CPT-4: 70949 07/24/2017 ([id number]) 56329 EST. PATIENT, LEVEL IV Diagnosis: Mixed hyperlipidemia[ICD10: E78.2] Diagnosis: Chronic obstructive pulmonary disease, unspecified[ICD10: J44.9] Diagnosis: Testicular hypofunction[ICD10: E29.1] Leora Hollis MD, [facility] CPT-4: 66404 07/14/2017 ([id number]) 43092 EST. 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] Diagnosis: Mixed hyperlipidemia[ICD10: E78.2] Diagnosis: Hypoxemia[ICD10: R09.02] Leora Hollis MD, [facility] CPT-4: 53774 06/09/2017 ([id number]) 64949 EST. 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] Leora Hollis MD, [facility] CPT-4: 55405 04/28/2017 ([id number]) Miscellaneous no charge Diagnosis: Impacted cerumen, bilateral[ICD10: H61.23] Leora Hollis MD, [facility] CPT-4: 83150 03/17/2017 ([id number]) OFFICE VISIT, NEW - LEVEL 4 Diagnosis: Mixed hyperlipidemia[ICD10: E78.2] Diagnosis: Chronic pain syndrome[ICD10: G89.4] Diagnosis: Presbycusis, bilateral[ICD10: H91.13] Diagnosis: Impacted cerumen, bilateral[ICD10: H61.23] Diagnosis: Atherosclerotic heart disease of [place] coronary artery without angina pectoris[ICD10: I25.10] Diagnosis: Personal history of other diseases of the circulatory system[ICD10: Z86.79] Leora Hollis MD, [facility] CPT-4: 58645 2017 Plan of Care Planned Activity Notes [...] tear -schedule appt with Dr Back 03/20/2018 Patient Education: Patient Medication Summary Completed 03/20/2018 Visit Plan: Spinal stenosis with back pain - refilled hydrocodone- keep appt with [facility] for treatment of stenosis of arteries, then pt most-likely to have surgical intervention of spine. PAD - pt will need surgical intervention with stenting. Testicular hypofunction - continue with testosterone. 03/10/2018 Appointment: [facility] ([facility] min[facility] Moderate 03/10/2018 Patient Education: Patient Medication Summary Completed 03/10/2018 Patient Education: Back Pain Completed 03/10/2018 Patient Education: Cholesterol Management Completed 03/10/2018 App[facility] [address] [facility] ([facility] min) Moderate 03/09/2018 Appointment: Injection 03/06/2018 [...] spray. 01/07/2018 [phone] [facility] ([facility] min) [facility] 01/07/2018 Patient Education: Patient Medication Summary Completed [...] of plan. 12/22/2017 Appointment: Elise Castillo WPtel: [id number] (15 min) Moderate 12/22/2017 Patient Education: Patient Medication Summary Completed 12/22/2017 Visit Plan: Neck and low back pain -will schedule MRI lumbar and cervical spine for further evaluation and proceed as indicated- patient verbalized understanding of plan. 12/15/2017 Appointment: Elise Casitllo WPtel: [address] [place], [place] [phone] [address] (15 min) Moderate 12/15/2017 Patient Education: Patient Medication Summary Completed 12/15/2017 Patient Education: Back Pain Completed 12/15/2017 Care Plan: MRI LUMBAR SPINE W/O DYE LOINC : 06758-0 Pending 12/15/2017 Care Plan: MRI NECK SPINE W/O DYE LOINC : 70607-3 Pending 12/15/2017 Appointment: Injection 12/04/2017 Patient Education: [...] care surrogate. 11/27/2017 Appointment: Sapphire Oneil WPtel: [facility] - Annual Wellness Visit 11/27/2017 Patient Education: [...] sleep 11/17/2017 [id number] ([facility] min) Moderate 11/17/2017 Patient [...] allergy spray. 10/06/2017 Appointment: Le[facility] Holl[facility] ([facility] min) Moderate 10/06/2017 [phone] ([facility] Moderate 10/06/2017 Patient Education: [...] plan. 07/24/2017 Appointment: Sapphire Oneil WPtel: [phone] [facility] (30 min) Complex 07/24/2017 Patient Education: [...] medications. 07/14/2017 Appointment: Leora Hollis WPtel: [phone] [facility] [place] (15 min) Moderate 07/14/2017 Patient Education: Patient Medication Summary Completed 07/14/2017 App[facility]ment: [phone] [place] (15 min) Moderate 07/10/2017 Appointment: [...] night 06/09/2017 Appointment: Leora Hollis WPtel: [phone] [facility] (30 min) Complex 06/09/2017 Patient Education: Patient [...] 15 04/28/2017 Appointment: Leora Hollis WPtel: [phone] [facility] (30 min) Complex 04/28/2017 Patient Education: [...] wax removal 03/14/2017 Appointment: Leora Hollis WPtel: [phone] [facility] New Patient 03/14/2017 Patient Education: [...] Friday morning for ear wax removal . URI - Pt advised to increase [...] bedtime if having trouble getting to sleep REFER FOR PHYSICAL THERAPY AT [facility] -HE HAS A PT HE HAS SEEN [...] - refilled hydrocodone- keep appt with [facility] for treatment of stenosis of arteries, then pt most- likely to have surgical intervention of spine. PAD - pt will need surgical intervention with stenting. Testicular hypofunction - continue with testosterone. . Increased left shoulder pain and weakness after fall - Discussed with Dr. Back office - they are going to contact him tomorrow for a possible appointment - pt is to notify clinic with any change in the current treatment plan.
--- OUTSIDE RECORDS SUMMARY | 2018-06-12 09:19 | XMS REPORT | CCD ---
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 Name Role Phone PP Unavailable CCM Unavailable Summary Purpose Interface Exchange Insurance Providers Payer name Policy type / Coverage type Covered republican ID Effective Begin Date Effective End Date WPS Medicare Part B Medicare Part B [id number] 2017 Unknown [facility] Medicare Part B [id number] 2017 Unknown Family history Father Diagnosis Age At Onset Heart Attack Unknown Social History Social History Element Codes Description Effective Dates Marital status Unknown 03/14/2017 Number of children Unknown 2 03/14/[address]: 4248099 Former smoker Quit 11/03/00; smoke 1/2 pack/day x15 years 03/14/[address]: 729570398 Never drinks alcohol 03/14/2017 Allergies, Adverse Reactions, [...] Active 03/14/2017 Unknown 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 [...] H61.23 03/14/2017 Active 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 ICD-10: I25.10 03/14/2017 Active Chronic pain syndrome ICD-9: 338.4 ICD-10: G89.4 03/14/2017 Active Personal history of other diseases of the circulatory system ICD-9: V12.59 ICD-10: Z86.79 03/14/2017 Active Presbycusis, 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 03/14/2017 Active Medications Medication Codes Instructions Start Date Stop Date Status Fill Instructions mupirocin 2 % topical ointment RxNorm: 968655 1 Application TOP BID 03/20/2018 03/26/2018 Active atorvastatin 40 mg tablet RxNorm: 291596 TAKE ONE TABLET BY MOUTH DAILY 03/20/2018 09/10/2019 Active hydrocodone 5 mg-acetaminophen 325 mg tablet RxNorm: 000371 1-2 Tablet(s) PO Q6 PRN 03/20/2018 04/18/2018 Active Keflex 500 mg capsule RxNorm: 000201 1 Capsule(s) PO TID 201803/26/2018 Active zolpidem 5 mg tablet RxNorm: 613035 Tablet(s) TAKE ONE TABLET BY MOUTH EVERY NIGHT AT BEDTIME NEEDED 03/18/2018 Active clopidogrel 75 mg tablet RxNorm: 872004 1 Tablet(s) PO daily 04/15/2018 Active furosemide 40 mg tablet RxNorm: 686512 TAKE ONE TABLET BY MOUTH DAILY 03/17/2018 09/12/2018 Active testosterone cypionate 200 mg/mL intramuscular oil RxNorm: 6746271 Milliliter(s) IM 03/06/2018 03/06/2018 Inactive testosterone cypionate 200 mg/mL intramuscular oil RxNorm: 5603954 Milliliter(s) IM 02/19/2018 02/19/2018 Inactive hydrocodone 5 mg-acetaminophen 325 mg tablet RxNorm: 183339 1-2 Tablet(s) PO Q6 PRN 02/18/2018 03/09/2018 Inactive zolpidem 5 mg tablet RxNorm: 017808 TAKE ONE TABLET BY MOUTH EVERY NIGHT AT BEDTIME NEEDED 02/13/2018 03/13/2018 Inactive meloxicam 15 mg tablet RxNorm: 643649 TAKE ONE TABLET BY MOUTH DAILY 02/13/2018 08/11/2018 Active testosterone cypionate 200 mg/mL intramuscular kit RxNorm: 990234 1/2 Milliliter(s ) IM [id number] 02/03/2018 08/01/2018 Active testosterone cypionate 200 mg/mL intramuscular oil RxNorm: 940926 Milliliter(s) IM 02/03/2018 02/03/2018 Inactive prednisone 20 mg tablet RxNorm: 923887 2 Tablet(s) PO QAM 01/0901/13/2018 Inactive cefdinir 300 mg capsule RxNorm: 467825 1 Capsule(s) PO BID 01/18/2018 Inactive prednisone 20 mg tablet RxNorm: 566259 2 Tablet(s) PO QAM 01/0901/08/2018 Inactive cefdinir 300 mg capsule RxNorm: 740089 1 Capsule(s) PO BID 01/08/2018 Inactive Zithromax Z-Timothy 250 mg tablet RxNorm: 515790 1 Tablet(s) PO UD 01/07/2018 No Stop Date Active Kenalog 40 mg/mL suspension for injection RxNorm: 3037001 Milliliter(s) Inj 01/07/2018 01/07/2018 Inactive ceftriaxone 500 mg solution for injection RxNorm: 1305202 Inj 01/07/2018 01/07/2018 Inactive testosterone cypionate 200 mg/mL intramuscular oil RxNorm: 068283 1/2 Milliliter(s ) IM 01/05/2018 01/05/2018 Inactive hydrocodone 5 mg-acetaminophen 325 mg tablet RxNorm: 237416 1-2 Tablet(s) PO Q6 PRN 12/22/2017 02/17/2018 Inactive zolpidem 5 mg tablet RxNorm: 798276 1 Tablet(s) PO 30 min before QHS 12/15/2017 02/12/2018 Inactive testosterone cypionate 200 mg/mL intramuscular oil RxNorm: 384248 Milliliter(s) IM 12/15/2017 12/15/2017 Inactive testosterone cypionate 200 mg/mL intramuscular oil RxNorm: 243548 1/2 Milliliter(s ) IM 12/04/2017 12/04/2017 Inactive testosterone cypionate 200 mg/mL intramuscular oil RxNorm: 684675 1/2 Milliliter(s ) IM 11/17/2017 11/17/2017 Inactive potassium chloride ER 10 mEq capsule,extended release RxNorm: 870937 TAKE ONE CAPSULE BY MOUTH DAILY 11/11/20172018 Active testosterone cypionate 200 mg/mL intramuscular oil RxNorm: 138495 Milliliter(s) IM 10/22/2017 10/22/2017 Inactive zolpidem 5 mg tablet RxNorm: 725609 1 Tablet(s) PO 30 min before QHS 10/15/2017 10/14/2017 Inactive zolpidem 5 mg tablet RxNorm: 013297 1 Tablet(s) PO 30 min before QHS 10/15/2017 12/13/2017 Inactive Zithromax Z-Timothy 250 mg tablet RxNorm: 679232 1 Tablet(s) PO UD 10/07/2017 11/16/2017 Inactive testosterone cypionate 200 mg/mL intramuscular oil RxNorm: 912724 Milliliter(s) IM 10/06/2017 10/06/2017 Inactive Kenalog 40 mg/mL suspension for injection RxNorm: 5244981 Milliliter(s) Inj 10/06/2017 10/06/2017 Inactive Zithromax Z-Timothy 250 mg tablet RxNorm: 948758 1 Tablet(s) PO UD 10/06/2017 10/06/2017 Inactive testosterone cypionate 200 mg/mL intramuscular oil RxNorm: 454200 Milliliter(s) IM 09/23/2017 09/23/2017 Inactive testosterone cypionate 200 mg/mL intramuscular kit RxNorm: 328977 1/2 Milliliter(s ) IM [id number] 08/28/2017 02/02/2018 Inactive meloxicam 15 mg tablet RxNorm: 646774 TAKE ONE TABLET BY MOUTH DAILY 08/28/2017 02/12/2018 Inactive testosterone cypionate 200 mg/mL intramuscular oil RxNorm: 579655 Milliliter(s) IM 08/28/2017 08/28/2017 Inactive testosterone cypionate 200 mg/mL intramuscular oil RxNorm: 999590 1/2 Milliliter(s ) IM 08/12/2017 08/12/2017 Inactive meloxicam 15 mg tablet RxNorm: 274487 1 Tablet(s) PO daily 08/201708/27/2017 Inactive atorvastatin 40 mg tablet RxNorm: 685874 TAKE ONE TABLET BY MOUTH DAILY 07/30/2017 02/24/2018 Inactive furosemide 40 mg tablet RxNorm: 819586 TAKE ONE TABLET BY MOUTH DAILY 07/30/2017 02/24/2018 Inactive testosterone cypionate 200 mg/mL intramuscular oil RxNorm: 104469 1/2 Milliliter(s ) IM 07/28/2017 07/28/2017 Inactive testosterone cypionate 200 mg/mL intramuscular oil RxNorm: 693481 1/2 Milliliter(s ) IM 07/14/2017 07/14/2017 Inactive testosterone cypionate 200 mg/mL intramuscular oil RxNorm: 284309 1/2 Milliliter(s ) IM 06/26/2017 06/26/2017 Inactive hydrocodone 5 mg-acetaminophen 325 mg tablet RxNorm: 430144 1 Tablet(s) PO QHS and 1 tab PO daily PRN pain 06/09/2017 Inactive hydrocodone 5 mg-acetaminophen 325 mg tablet RxNorm: 951540 1 Tablet(s) PO daily 06/09/2017 06/18/2017 Inactive testosterone cypionate 200 mg/mL intramuscular oil RxNorm: 499375 1/2 Milliliter(s ) IM 06/09/2017 06/09/2017 Inactive testosterone cypionate 200 mg/mL intramuscular oil RxNorm: 227200 Milliliter(s) IM 05/27/2017 05/27/2017 Inactive testosterone cypionate 200 mg/mL intramuscular oil RxNorm: 540459 Milliliter(s) IM 05/13/2017 05/13/2017 Inactive potassium chloride ER 10 mEq capsule,extended release RxNorm: 751405 1 Capsule(s) PO daily 05/07/2017 11/02/2017 Inactive Vitamin D2 50,000 unit capsule RxNorm: 991926 1 Capsule(s) PO QW 05/06/2017 05/05/2017 Inactive take with OTC vitamin d 2,000 units QD testosterone cypionate 200 mg/mL intramuscular kit RxNorm: 447565 1/2 kit IM 2 x month 05/06/2017 08/27/2017 Inactive Vitamin D2 50,000 unit capsule RxNorm: 379727 1 Capsule(s) PO QW 05/06/2017 08/03/2017 Inactive take with OTC vitamin d 2,000 units QD testosterone cypionate 200 mg/mL intramuscular oil RxNorm: 021988 1/2 Milliliter(s ) IM 04/29/2017 04/29/2017 Inactive fluorouracil 5 % topical cream RxNorm: 408735 1 Application TOP BID 04/28/2017 05/07/2017 Inactive testosterone cypionate 200 mg/mL intramuscular kit RxNorm: 890256 1/2 IM 2 x month 04/28/2017 05/05/2017 Inactive Pamelor 10 mg capsule RxNorm: 438239 1 Capsule(s) PO daily No Start Date Active gabapentin 300 mg capsule RxNorm: 256037 6 Capsule(s) PO daily No Start Date Active cyclobenzaprine 5 mg tablet RxNorm: 960611 1 Tablet(s) PO as needed No Start Date Active diclofenac 1 % topical gel RxNorm: 596484 1 Gram(s) TOP as needed No Start Date Active meloxicam 15 mg tablet RxNorm: 455968 1 Tablet(s) PO daily No Start Date 07/30/2017 Inactive potassium chloride ER 10 mEq tablet,extended release RxNorm: 466921 1 Tablet(s) PO daily No Start Date 05/06/2017 Inactive hydrocodone 5 mg-acetaminophen 325 mg tablet RxNorm: 962878 1 Tablet(s) PO daily No Start Date 06/08/2017 Inactive furosemide 40 mg tablet RxNorm: 859431 1 Tablet(s) PO daily No Start Date 07/29/2017 Inactive atorvastatin 40 mg tablet RxNorm: 515095 1 Tablet(s) PO QHS No Start Date 07/29/2017 Inactive clopidogrel 75 mg tablet RxNorm: 187861 1 Tablet(s) PO daily No Start Date 03/16/2018 Inactive Medication Administered Medication Codes Instructions Start Date Status testosterone cypionate 200 mg/mL intramuscular oil RxNorm: 8281127 Milliliter 03/06/2018 No longer Active testosterone cypionate 200 mg/mL intramuscular oil RxNorm: 3048652 Milliliter 02/19/2018 No longer Active testosterone cypionate 200 mg/mL intramuscular oil RxNorm: 130154 Milliliter 02/03/2018 No longer Active Kenalog 40 mg/mL suspension for injection RxNorm: 9473893 Milliliter 01/07/2018 No longer Active ceftriaxone 500 mg solution for injection RxNorm: 1427307 01/07/2018 No longer Active testosterone cypionate 200 mg/mL intramuscular oil RxNorm: 320166 1/2Milliliter 01/05/2018 No longer Active testosterone cypionate 200 mg/mL intramuscular oil RxNorm: 654338 Milliliter 12/15/2017 No longer Active testosterone cypionate 200 mg/mL intramuscular oil RxNorm: 588618 2Milliliter 12/04/2017 No longer Active testosterone cypionate 200 mg/mL intramuscular oil RxNorm: 750583 /2Milliliter 11/17/2017 No longer Active testosterone cypionate 200 mg/mL intramuscular oil RxNorm: 321258 Milliliter 10/22/2017 No longer Active Kenalog 40 mg/mL suspension for injection RxNorm: 7852133 Milliliter 10/06/2017 No longer Active testosterone cypionate 200 mg/mL intramuscular oil RxNorm: 010189 Milliliter 10/06/2017 No longer Active testosterone cypionate 200 mg/mL intramuscular oil RxNorm: 546131 Milliliter 09/23/2017 No longer Active testosterone cypionate 200 mg/mL intramuscular oil RxNorm: 360175 Milliliter 08/28/2017 No longer Active testosterone cypionate 200 mg/mL intramuscular oil RxNorm: 278539 2Milliliter 08/12/2017 No longer Active testosterone cypionate 200 mg/mL intramuscular oil RxNorm: 972633 2Milliliter 07/28/2017 No longer Active testosterone cypionate 200 mg/mL intramuscular oil RxNorm: 241015 /2Milliliter 07/14/2017 No longer Active testosterone cypionate 200 mg/mL intramuscular oil RxNorm: 790285 /2Milliliter 06/26/2017 No longer Active testosterone cypionate 200 mg/mL intramuscular oil RxNorm: 390576 /2Milliliter 06/09/2017 No longer Active testosterone cypionate 200 mg/mL intramuscular oil RxNorm: 638819 Milliliter 05/27/2017 No longer Active testosterone cypionate 200 mg/mL intramuscular oil RxNorm: 469283 Milliliter 05/13/2017 No longer Active testosterone cypionate 200 mg/mL intramuscular oil RxNorm: 762912 /2Milliliter 04/29/2017 No longer Active Immunizations Vaccine [...] ICD-9: 380.4 03/17/2017 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 [...] Code Item Item Code Result Date Testosterone Zki190 Testo 375.1 ng/dL 03/02/2018 Cbc With Differential [...] 25.6 pg 03/02/2018 Cbc With Differential Ord2 [place]% 7.9 % 03/02/2018 Cbc With Differential Ord2 [...] 1.41 K/ul 03/02/2018 Cbc With Differential Ord2 [place] ABS# 0.8 K/ul 03/02/2018 Cbc With Differential Ord2 Eos ABS# 0.2 K/ul 03/02/2018 Cbc With Differential Ord2 Baso ABS# 0.1 K/ul 03/02/2018 Influenza A+B Kiq181 Influ A+B Negative 01/08/2018 C A/B FLU [id number] Influenza A Scr TNP:Improper Specimen 01/07 C A/B FLU [id number] Influenza B Scr TNP:Improper Specimen 01/07 C A/B FLU [id number] Influenza Intrp B AG: PRID:PT:NOSE:NOM:IF TNP:Improper Specimen 01/07/2018 C A/B FLU [id number] IC OK? TNP:Improper Specimen 01/07/2018 Hepatic Ldq619 ALBUMIN 3.7 g/dL 08/06/2017 Hepatic Wzh621 TPRO 5.9 g/dL 08/06/2017 Hepatic Hwg911 GLOB 2.2 g/dL 08/06/2017 Hepatic Cjo692 A/G Ratio 1.7 Ratio 08/06/2017 Hepatic Dot468 ALK PHOS 46 U/L 08/06/2017 Hepatic Dlb682 ALT(SGPT) 9 U/L 08/06/2017 Hepatic Gau503 AST(SGOT) 13 U/L 08/06/2017 Hepatic Yby785 BILI T 0.6 mg/dL 08/06/2017 Hepatic Xjy854 BILI D 0.2 mg/dL 08/06/2017 Hepatic Bnr920 BILI I 0.4 mg/dL 08/06/2017 Testosterone Kzl356 Testo 474.5 ng/dL 08/06/2017 Cbc With Differential [...] 28.5 pg 08/06/2017 Cbc With Differential Ord2 [place]% 11.2 % 08/06/2017 Cbc With Differential Ord2 [...] 1.33 K/ul 08/06/2017 Cbc With Differential Ord2 [place] ABS# 0.6 K/ul 08/06/2017 Cbc With Differential Ord2 Eos ABS# 0.3 K/ul 08/06/2017 Cbc With Differential Ord2 Baso ABS# 0.1 K/ul 08/06/2017 Comp Metabolic Cos032 NA 140 mEq/L 06/02/2017 Comp Metabolic Krp483 K 3.8 mEq/L 06/02/2017 Comp Metabolic Snd339 CL 102 mEq/L 06/02/2017 Comp Metabolic Ftv475 CO2 30.0 mEq/L 06/02/2017 Comp Metabolic Tcp693 ANION GAP 12 06/02/2017 Comp Metabolic Mda662 GLUCOSE 100 mg/dL 06/02/2017 Comp Metabolic Kof605 Creat 1.1 mg/dL 06/02/2017 Comp Metabolic Wnz813 eGFR 69 ml/min/1.73m2 06/02/2017 Comp Metabolic Bbh632 BUN 15 mg/dL 06/02/2017 Comp Metabolic Bcu877 B/C Ratio 13.4 Ratio 06/02/2017 Comp Metabolic Tbg894 CALCIUM 8.6 mg/dL 06/02/2017 Comp Metabolic Wro759 ALK PHOS 63 U/L 06/02/2017 Comp Metabolic Wau502 AST(SGOT) 17 U/L 06/02/2017 Comp Metabolic Jsv065 ALT(SGPT) 12 U/L 06/02/2017 Comp Metabolic Dks235 BILI T 0.5 mg/dL 06/02/2017 Comp Metabolic Mmx263 ALBUMIN 3.9 g/dL 06/02/2017 Comp Metabolic Suy931 TPRO 6.1 g/dL 06/02/2017 Comp Metabolic Lrr653 GLOB 2.2 g/dL 06/02/2017 Comp Metabolic Vjg690 A/G Ratio 1.8 Ratio 06/02/2017 Comp Metabolic Iyl682 Osmo 280 mOsmo 06/02/2017 Vitamin D 25 Oh Fkt5579 VITAMIN D, 25 HYDROXY 40.03 ng/mL Cbc [...] 29.7 pg 06/02/2017 Cbc With Differential Ord2 [place]% 10.5 % 06/02/2017 Cbc With Differential Ord2 [...] 1.52 K/ul 06/02/2017 Cbc With Differential Ord2 [place] ABS# 0.6 K/ul 06/02/2017 Cbc With Differential Ord2 Eos ABS# 0.2 K/ul 06/02/2017 Cbc With Differential Ord2 Baso ABS# 0.1 K/ul 06/02/2017 Testosterone Dyz383 Testo 198.4 ng/dL 04/29/2017 Vitamin D 25 Oh Gcu3725 VITAMIN D, 25 HYDROXY 29.25 ng/mL Lipid [...] Procedure Codes Date THER/PROPH/DIAG INJ SC/IM CPT-4: 82071 03/06/2018 THER/PROPH/DIAG INJ SC/IM CPT-4: 33706 02/19/2018 THER/PROPH/DIAG INJ SC/IM CPT-4: 38945 02/03/2018 THER/PROPH/DIAG INJ SC/IM CPT-4: 36324 01/07/2018 TRIAMCINOLONE ACET INJ NOS CPT-4: J3301 01/07/2018 ROCEPHIN, PER 250 MG CPT-4: J0696 01/07/2018 THER/PROPH/DIAG INJ SC/IM CPT-4: 43253 01/05/2018 THER/PROPH/DIAG INJ SC/IM CPT-4: 19116 12/15/2017 THER/PROPH/DIAG INJ SC/IM CPT-4: 97055 12/04/2017 PPPS, SUBSEQ VISIT CPT -4: G0439 11/27/2017 ADMIN INFLUENZA VIRUS VAC CPT-4: G0008 11/17/2017 FLU VAC NO PRSV 4 FATOU 3 YRS+ CPT-4: 98093 11/17/2017 THER/PROPH/DIAG INJ SC/IM CPT-4: 14390 11/17/2017 THER/PROPH/DIAG INJ SC/IM CPT-4: 25990 10/22/2017 THER/PROPH/DIAG INJ SC/IM CPT-4: 75229 10/06/2017 TRIAMCINOLONE ACET INJ NOS CPT-4: J3301 10/06/2017 THER/PROPH/DIAG INJ SC/IM CPT-4: 35646 09/23/2017 THER/PROPH/DIAG INJ SC/IM CPT-4: 97707 08/28/2017 THER/PROPH/DIAG INJ SC/IM CPT-4: 11862 08/12/2017 THER/PROPH/DIAG INJ SC/IM CPT-4: 72320 07/28/2017 THER/PROPH/DIAG INJ SC/IM CPT-4: 90159 07/14/2017 THER/PROPH/DIAG INJ SC/IM CPT-4: 26425 06/26/2017 THER/PROPH/DIAG INJ SC/IM CPT-4: 00409 06/09/2017 THER/PROPH/DIAG INJ SC/IM CPT-4: 96492 05/27/2017 THER/PROPH/DIAG INJ SC/IM CPT-4: 48909 05/13/2017 THER/PROPH/DIAG INJ SC/IM CPT-4: 46876 04/29/2017 Vital Signs Date Vital 03/20/2018 Blood Pressure 1: 122/60 Code : 8480-6 Heart Rate 1: 76 bpm Height: 5'10" SpO2: 96% Weight: 03/10/2018 Blood Pressure 1: 120/70 Code : 8480-6 BMI: 29.0 Code : 62613-0 Heart Rate 1 : 82 bpm Height: 5'10" SpO2: 95% Weight: 202 lbs 01/07/2018 Blood Pressure 1: 126/66 Code : 8480-6 BMI: 30.1 Code : 71661-1 Heart Rate 1 : 75 bpm Height: 5'10" SpO2: 97% Temperature: 36.5 (C) / 97.7 (F) Weight: 210 lbs 12/22/2017 Blood Pressure 1: 124/70 Code : 8480-6 BMI: 29.7 Code : 91430-4 Heart Rate 1 : 84 bpm Height: 5'10" SpO2: 94% Weight: 207 lbs 12/15/2017 Blood Pressure 1: 122/82 Code : 8480-6 BMI: 30.0 Code : 06517-6 Heart Rate 1 : 82 bpm Height: 5'10" SpO2: 93% Weight: 209 lbs 11/27/2017 Blood Pressure 1: 132/68 Code : 8480-6 BMI: 29.3 Code : 38180-7 Heart Rate 1 : 71 bpm Height: 5'10" SpO2: 97% Waist Measure (cm): 97 cm Weight: 204 lbs 11/17/2017 Blood Pressure 1: 130/80 Code : 8480-6 BMI: 29.3 Code : 13177-2 Heart Rate 1 : 73 bpm Height: 5'10" SpO2: 99% Weight: 204 lbs 10/06/2017 Blood Pressure 1: 124/60 Code : 8480-6 BMI: 28.8 Code : 57300-3 Heart Rate 1 : 70 bpm Height: 5'10" SpO2: 98% Weight: 201 lbs 07/24/2017 Blood Pressure 1: 118/70 Code : 8480-6 BMI: 29.3 Code : 50252-8 Heart Rate 1 : 82 bpm Height: 5'10" SpO2: 96% Weight: 204 lbs 07/14/2017 Blood Pressure 1: 118/72 Code : 8480-6 BMI: 29.1 Code : 21054-9 Heart Rate 1 : 83 bpm Height: 5'10" SpO2: 98% Weight: 203 lbs 06/09/2017 Blood Pressure 1: 120/74 Code : 8480-6 BMI: 29.3 Code : 75010-6 Heart Rate 1 : 91 bpm Height: 5'10" SpO2: 99% Weight: 204 lbs 04/28/2017 Blood Pressure 1: 118/68 Code : 8480-6 BMI: 28.8 Code : 69165-5 Heart Rate 1 : 74 bpm Height: 5'10" SpO2: 96% Weight: 201 lbs 03/14/2017 Blood Pressure 1: 114/74 Code : 8480-6 BMI: 28.6 Code : 87599-0 Heart Rate 1 : 77 bpm Height: [...] in left shoulder[ICD10: M25.512] Elise Hollis MD, [facility] CPT-4: 16170 03/20/2018 ([id number]) 10401 EST. 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 PATIENT, LEVEL III Diagnosis: Other malaise[ICD10: R53.81] Diagnosis: Acute laryngopharyngitis[ICD10: J06.0] Diagnosis: Other allergic rhinitis[ICD10: J30.89] Sapphire Hollis MD, [facility] CPT-4: 77889 01/07/2018 ([id number]) 99888 EST. PATIENT, LEVEL III Diagnosis: Spinal stenosis, lumbosacral region[ICD10: M48.07] Diagnosis: Spinal stenosis, cervical region[ICD10: M48.02] Elise Hollis MD, [facility] CPT-4: 01774 12/22/2017 ([id number]) 73141 EST. 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 PATIENT, LEVEL III Diagnosis: Mixed hyperlipidemia[ICD10: E78.2] Diagnosis: Other insomnia[ICD10: G47.09] Leora Hollis MD, [facility] CPT- 4: 69973 11/17/2017 77725 EST. PATIENT, LEVEL III Diagnosis: Acute laryngopharyngitis[ICD10: J06.0] Diagnosis: Other allergic rhinitis[ICD10: J30.89] Sapphire Hollis MD, [facility] CPT-4: 32058 10/06/2017 59920 EST. PATIENT, LEVEL III Diagnosis: Pain in left shoulder[ICD10: M25.512] Sapphire Hollis MD, [facility] CPT-4: 38469 07/24/2017 ([id number]) 21344 EST. 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] Leora Hollis MD, [facility] CPT-4: 40741 04/28/2017 ([id number]) Miscellaneous no charge Diagnosis: Impacted cerumen, bilateral[ICD10: H61.23] Leora Hollis MD, [facility] CPT-4: 38497 03/17/2017 ([id number]) OFFICE VISIT, NEW - LEVEL 4 Diagnosis: Mixed hyperlipidemia[ICD10: E78.2] Diagnosis: Chronic pain syndrome[ICD10: G89.4] Diagnosis: Presbycusis, bilateral[ICD10: H91.13] Diagnosis: Impacted cerumen, bilateral[ICD10: H61.23] 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 PAD - pt will need surgical intervention with stenting. Testicular hypofunction - continue with testosterone. 03/10/2018 Appointment: Leora Hollis WPtel: [facility]5 [facility] (15 min) Moderate 03/10/2018 Patient Education: Patient Medication Summary Completed 03/10/2018 Patient Education: Back Pain Completed 03/10/2018 Patient Education: Cholesterol Management Completed 03/10/2018 Appointment: Leora Hollis WPtel: [facility] (15 min) Moderate 03/09/2018 Appointment: Injection 03/06/2018 [...] allergy spray. 01/07/2018 Appointment: Sapphire Oneil WPtel: [facility]4 [facility] (15 min) Moderate 01/07/2018 Patient Education: Patient [...] of plan. 12/22/2017 Appointment: Elise Castillo WPtel: [phone] [place] (15 min) Moderate 12/22/2017 Patient Education: Patient Medication Summary Completed 12/22/2017 Visit Plan: Neck and low back pain -will schedule MRI lumbar and cervical spine for further evaluation and proceed as indicated- patient verbalized understanding of plan. 12/15/2017 App[facility]: [phone] [phone] (15 min) Moderate 12/15/2017 Patient Education: Patient Medication Summary Completed 12/15/2017 Patient Education: Back Pain Completed 12/15/2017 Care Plan: MRI LUMBAR SPINE W/O DYE LOINC : 72401-6 Pending 12/15/2017 Care Plan: MRI NECK SPINE W/O DYE LOINC : 37872-6 Pending 12/15/2017 Appointment: Injection 12/04/2017 Patient Education: [...] surrogate. 11/27/2017 Appointment: [facility]apphire Oneil [facility] [phone] [facility] [facility] - Annual Wellness Visit 11/27/2017 [...] sleep 11/17/2017 Appointment: Leora Hollis WPtel: [phone] [facility] (15 min) Moderate 11/17/2017 Patient [...] spray. 10/06/2017 Appointment: [facility] Holl[facility] [phone] [facility] [place] (15 min) Moderate 10/06/2017 Appointment: Sapphire Oneil WPtel: [facility] ([facility] min) Moderate 10/06/2017 Patient [...] treatment plan. 07/24/2017 Appointment: Sapphire Oneil WPtel: [facility] [place] (30 min) Complex 07/24/2017 Patient [...] medications. 07/14/2017 Appointment: [facility] Hollis [facility] [phone] [facility] [place] (15 min) Moderate 07/14/2017 Patient Education: Patient Medication Summary Completed 07/14/2017 Appointment: [facility] Hollis [facility]el[facility] [phone] [facility] [place] (15 min) Moderate 07/10/2017 Appointment: Injection 06/26/2017 [...] night 06/09/2017 Appointment: [facility] Holl[facility]el[facility] [phone] [facility] [place] [place] (30 min) Complex 06/09/2017 Patient Education: [...] 15 04/28/2017 Appointment: [facility] Hollis [facility]el[facility] [address] [facility] [place] (30 min) Complex 04/28/2017 Patient Education: Patient [...] wax removal 03/14/2017 Appointment: [facility] Holl[facility]el[facility] [phone] [facility] New Patient 03/14/2017 Patient Education: Patient Medication [...] pain - refilled hydrocodone- keep appt with [facility] for treatment of stenosis of arteries, then pt most- likely to have surgical intervention of spine. PAD - pt will need surgical intervention with stenting. Testicular hypofunction - continue with testosterone. REFER FOR PHYSICAL THERAPY [facility] -HE HAS A PT HE [...]
--- OUTSIDE RECORDS SUMMARY | 2018-06-12 09:21 | XMS REPORT | CCD ---
Author Author [facility] Organization [facility] Address [address] [place] [address] Phone Care Team Providers Care Play Leader Name Role Phone PP Unavailable CCM Unavailable Summary Purpose Interface Exchange Insurance Providers Payer name Policy type / Coverage type Covered libertarian ID Effective Begin Date Effective End Date WPS Medicare Part B Medicare Part B [id number] 2017 Unknown [facility] Medicare Part B [id number] 2017 Unknown Family history Father Diagnosis Age At Onset Heart Attack Unknown Social History Social History Element Codes Description Effective Dates Marital status Unknown 03/14/2017 Number of children Unknown 2 03/14/[address]: 7316982 Former smoker Quit 11/03/00; smoke 1/2 pack/day x15 years 03/14/[address]: 688025078 Never drinks alcohol 03/14/2017 Allergies, Adverse Reactions, [...] Active 03/14/2017 Unknown 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 [...] H61.23 03/14/2017 Active 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 ICD-10: I25.10 03/14/2017 Active Chronic pain syndrome ICD-9: 338.4 ICD-10: G89.4 03/14/2017 Active Personal history of other diseases of the circulatory system ICD-9: V12.59 ICD-10: Z86.79 03/14/2017 Active Presbycusis, 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 03/14/2017 Active Medications Medication Codes Instructions Start Date Stop Date Status Fill Instructions mupirocin 2 % topical ointment RxNorm: 433205 1 Application TOP BID 03/20/2018 03/26/2018 Active hydrocodone 5 mg-acetaminophen 325 mg tablet RxNorm: 812313 1-2 Tablet(s) PO Q6 PRN 03/20/2018 04/18/2018 Active Keflex 500 mg capsule RxNorm: 670058 1 Capsule(s) PO TID 201803/26/2018 Active zolpidem 5 mg tablet RxNorm: 355350 Tablet(s) TAKE ONE TABLET BY MOUTH EVERY NIGHT AT BEDTIME NEEDED 03/18/2018 Active clopidogrel 75 mg tablet RxNorm: 469855 1 Tablet(s) PO daily 04/15/2018 Active furosemide 40 mg tablet RxNorm: 718613 TAKE ONE TABLET BY MOUTH DAILY 03/17/2018 09/12/2018 Active testosterone cypionate 200 mg/mL intramuscular oil RxNorm: 3980140 Milliliter(s) IM 03/06/2018 03/06/2018 Inactive testosterone cypionate 200 mg/mL intramuscular oil RxNorm: 3469529 Milliliter(s) IM 02/19/2018 02/19/2018 Inactive hydrocodone 5 mg-acetaminophen 325 mg tablet RxNorm: 521384 1-2 Tablet(s) PO Q6 PRN 02/18/2018 03/09/2018 Inactive zolpidem 5 mg tablet RxNorm: 425552 TAKE ONE TABLET BY MOUTH EVERY NIGHT AT BEDTIME NEEDED 02/13/2018 03/13/2018 Inactive meloxicam 15 mg tablet RxNorm: 919456 TAKE ONE TABLET BY MOUTH DAILY 02/13/2018 08/11/2018 Active testosterone cypionate 200 mg/mL intramuscular kit RxNorm: 250579 1/2 Milliliter(s ) IM [id number] 02/03/2018 08/01/2018 Active testosterone cypionate 200 mg/mL intramuscular oil RxNorm: 735146 Milliliter(s) IM 02/03/2018 02/03/2018 Inactive prednisone 20 mg tablet RxNorm: 991855 2 Tablet(s) PO QAM 01/0901/13/2018 Inactive cefdinir 300 mg capsule RxNorm: 820749 1 Capsule(s) PO BID 01/18/2018 Inactive prednisone 20 mg tablet RxNorm: 274297 2 Tablet(s) PO QAM 01/0901/08/2018 Inactive cefdinir 300 mg capsule RxNorm: 150375 1 Capsule(s) PO BID 01/08/2018 Inactive Zithromax Z-Timothy 250 mg tablet RxNorm: 201412 1 Tablet(s) PO UD 01/07/2018 No Stop Date Active Kenalog 40 mg/mL suspension for injection RxNorm: 8385693 Milliliter(s) Inj 01/07/2018 01/07/2018 Inactive ceftriaxone 500 mg solution for injection RxNorm: 3588419 Inj 01/07/2018 01/07/2018 Inactive testosterone cypionate 200 mg/mL intramuscular oil RxNorm: 391891 1/2 Milliliter(s ) IM 01/05/2018 01/05/2018 Inactive hydrocodone 5 mg-acetaminophen 325 mg tablet RxNorm: 516657 1-2 Tablet(s) PO Q6 PRN 12/22/2017 02/17/2018 Inactive zolpidem 5 mg tablet RxNorm: 562059 1 Tablet(s) PO 30 min before QHS 12/15/2017 02/12/2018 Inactive testosterone cypionate 200 mg/mL intramuscular oil RxNorm: 516675 Milliliter(s) IM 12/15/2017 12/15/2017 Inactive testosterone cypionate 200 mg/mL intramuscular oil RxNorm: 794114 1/2 Milliliter(s ) IM 12/04/2017 12/04/2017 Inactive testosterone cypionate 200 mg/mL intramuscular oil RxNorm: 354550 1/2 Milliliter(s ) IM 11/17/2017 11/17/2017 Inactive potassium chloride ER 10 mEq capsule,extended release RxNorm: 108769 TAKE ONE CAPSULE BY MOUTH DAILY 11/11/20172018 Active testosterone cypionate 200 mg/mL intramuscular oil RxNorm: 714492 Milliliter(s) IM 10/22/2017 10/22/2017 Inactive zolpidem 5 mg tablet RxNorm: 740941 1 Tablet(s) PO 30 min before QHS 10/15/2017 10/14/2017 Inactive zolpidem 5 mg tablet RxNorm: 512238 1 Tablet(s) PO 30 min before QHS 10/15/2017 12/13/2017 Inactive Zithromax Z-Timothy 250 mg tablet RxNorm: 783753 1 Tablet(s) PO UD 10/07/2017 11/16/2017 Inactive testosterone cypionate 200 mg/mL intramuscular oil RxNorm: 102809 Milliliter(s) IM 10/06/2017 10/06/2017 Inactive Kenalog 40 mg/mL suspension for injection RxNorm: 8344812 Milliliter(s) Inj 10/06/2017 10/06/2017 Inactive Zithromax Z-Timothy 250 mg tablet RxNorm: 146819 1 Tablet(s) PO UD 10/06/2017 10/06/2017 Inactive testosterone cypionate 200 mg/mL intramuscular oil RxNorm: 261475 Milliliter(s) IM 09/23/2017 09/23/2017 Inactive testosterone cypionate 200 mg/mL intramuscular kit RxNorm: 298186 1/2 Milliliter(s ) IM [id number] 08/28/2017 02/02/2018 Inactive meloxicam 15 mg tablet RxNorm: 389040 TAKE ONE TABLET BY MOUTH DAILY 08/28/2017 02/12/2018 Inactive testosterone cypionate 200 mg/mL intramuscular oil RxNorm: 724715 Milliliter(s) IM 08/28/2017 08/28/2017 Inactive testosterone cypionate 200 mg/mL intramuscular oil RxNorm: 482333 1/2 Milliliter(s ) IM 08/12/2017 08/12/2017 Inactive meloxicam 15 mg tablet RxNorm: 420455 1 Tablet(s) PO daily 08/201708/27/2017 Inactive atorvastatin 40 mg tablet RxNorm: 923271 TAKE ONE TABLET BY MOUTH DAILY 07/30/2017 02/24/2018 Inactive furosemide 40 mg tablet RxNorm: 886506 TAKE ONE TABLET BY MOUTH DAILY 07/30/2017 02/24/2018 Inactive testosterone cypionate 200 mg/mL intramuscular oil RxNorm: 157660 1/2 Milliliter(s ) IM 07/28/2017 07/28/2017 Inactive testosterone cypionate 200 mg/mL intramuscular oil RxNorm: 129556 1/2 Milliliter(s ) IM 07/14/2017 07/14/2017 Inactive testosterone cypionate 200 mg/mL intramuscular oil RxNorm: 422936 1/2 Milliliter(s ) IM 06/26/2017 06/26/2017 Inactive hydrocodone 5 mg-acetaminophen 325 mg tablet RxNorm: 580664 1 Tablet(s) PO QHS and 1 tab PO daily PRN pain 06/09/2017 Inactive hydrocodone 5 mg-acetaminophen 325 mg tablet RxNorm: 333491 1 Tablet(s) PO daily 06/09/2017 06/18/2017 Inactive testosterone cypionate 200 mg/mL intramuscular oil RxNorm: 428760 1/2 Milliliter(s ) IM 06/09/2017 06/09/2017 Inactive testosterone cypionate 200 mg/mL intramuscular oil RxNorm: 961149 Milliliter(s) IM 05/27/2017 05/27/2017 Inactive testosterone cypionate 200 mg/mL intramuscular oil RxNorm: 831553 Milliliter(s) IM 05/13/2017 05/13/2017 Inactive potassium chloride ER 10 mEq capsule,extended release RxNorm: 857366 1 Capsule(s) PO daily 05/07/2017 11/02/2017 Inactive Vitamin D2 50,000 unit capsule RxNorm: 379915 1 Capsule(s) PO QW 05/06/2017 05/05/2017 Inactive take with OTC vitamin d 2,000 units QD testosterone cypionate 200 mg/mL intramuscular kit RxNorm: 083318 1/2 kit IM 2 x month 05/06/2017 08/27/2017 Inactive Vitamin D2 50,000 unit capsule RxNorm: 103275 1 Capsule(s) PO QW 05/06/2017 08/03/2017 Inactive take with OTC vitamin d 2,000 units QD testosterone cypionate 200 mg/mL intramuscular oil RxNorm: 099010 1/2 Milliliter(s ) IM 04/29/2017 04/29/2017 Inactive fluorouracil 5 % topical cream RxNorm: 345851 1 Application TOP BID 04/28/2017 05/07/2017 Inactive testosterone cypionate 200 mg/mL intramuscular kit RxNorm: 973875 1/2 IM 2 x month 04/28/2017 05/05/2017 Inactive Pamelor 10 mg capsule RxNorm: 787761 1 Capsule(s) PO daily No Start Date Active gabapentin 300 mg capsule RxNorm: 132814 6 Capsule(s) PO daily No Start Date Active cyclobenzaprine 5 mg tablet RxNorm: 431271 1 Tablet(s) PO as needed No Start Date Active diclofenac 1 % topical gel RxNorm: 001090 1 Gram(s) TOP as needed No Start Date Active meloxicam 15 mg tablet RxNorm: 593102 1 Tablet(s) PO daily No Start Date 07/30/2017 Inactive potassium chloride ER 10 mEq tablet,extended release RxNorm: 646835 1 Tablet(s) PO daily No Start Date 05/06/2017 Inactive hydrocodone 5 mg-acetaminophen 325 mg tablet RxNorm: 610184 1 Tablet(s) PO daily No Start Date 06/08/2017 Inactive furosemide 40 mg tablet RxNorm: 422136 1 Tablet(s) PO daily No Start Date 07/29/2017 Inactive atorvastatin 40 mg tablet RxNorm: 456719 1 Tablet(s) PO QHS No Start Date 07/29/2017 Inactive clopidogrel 75 mg tablet RxNorm: 821810 1 Tablet(s) PO daily No Start Date 03/16/2018 Inactive Medication Administered Medication Codes Instructions Start Date Status testosterone cypionate 200 mg/mL intramuscular oil RxNorm: 0214271 Milliliter 03/06/2018 No longer Active testosterone cypionate 200 mg/mL intramuscular oil RxNorm: 7527526 Milliliter 02/19/2018 No longer Active testosterone cypionate 200 mg/mL intramuscular oil RxNorm: 325117 Milliliter 02/03/2018 No longer Active Kenalog 40 mg/mL suspension for injection RxNorm: 5418251 Milliliter 01/07/2018 No longer Active ceftriaxone 500 mg solution for injection RxNorm: 0543181 01/07/2018 No longer Active testosterone cypionate 200 mg/mL intramuscular oil RxNorm: 277265 1/2Milliliter 01/05/2018 No longer Active testosterone cypionate 200 mg/mL intramuscular oil RxNorm: 975444 Milliliter 12/15/2017 No longer Active testosterone cypionate 200 mg/mL intramuscular oil RxNorm: 082053 /2Milliliter 12/04/2017 No longer Active testosterone cypionate 200 mg/mL intramuscular oil RxNorm: 775256 /2Milliliter 11/17/2017 No longer Active testosterone cypionate 200 mg/mL intramuscular oil RxNorm: 939119 Milliliter 10/22/2017 No longer Active Kenalog 40 mg/mL suspension for injection RxNorm: 3528603 Milliliter 10/06/2017 No longer Active testosterone cypionate 200 mg/mL intramuscular oil RxNorm: 486182 Milliliter 10/06/2017 No longer Active testosterone cypionate 200 mg/mL intramuscular oil RxNorm: 577886 Milliliter 09/23/2017 No longer Active testosterone cypionate 200 mg/mL intramuscular oil RxNorm: 678382 Milliliter 08/28/2017 No longer Active testosterone cypionate 200 mg/mL intramuscular oil RxNorm: 791463 2Milliliter 08/12/2017 No longer Active testosterone cypionate 200 mg/mL intramuscular oil RxNorm: 235702 /2Milliliter 07/28/2017 No longer Active testosterone cypionate 200 mg/mL intramuscular oil RxNorm: 081454 /2Milliliter 07/14/2017 No longer Active testosterone cypionate 200 mg/mL intramuscular oil RxNorm: 651327 /2Milliliter 06/26/2017 No longer Active testosterone cypionate 200 mg/mL intramuscular oil RxNorm: 625012 /2Milliliter 06/09/2017 No longer Active testosterone cypionate 200 mg/mL intramuscular oil RxNorm: 221505 Milliliter 05/27/2017 No longer Active testosterone cypionate 200 mg/mL intramuscular oil RxNorm: 047603 Milliliter 05/13/2017 No longer Active testosterone cypionate 200 mg/mL intramuscular oil RxNorm: 169045 /2Milliliter 04/29/2017 No longer Active Immunizations Vaccine [...] ICD-9: 380.4 03/17/2017 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 [...] Code Item Item Code Result Date Testosterone Nxe787 Testo 375.1 ng/dL 03/02/2018 Cbc With Differential [...] 25.6 pg 03/02/2018 Cbc With Differential Ord2 [place]% 7.9 % 03/02/2018 Cbc With Differential Ord2 [...] 1.41 K/ul 03/02/2018 Cbc With Differential Ord2 [place] ABS# 0.8 K/ul 03/02/2018 Cbc With Differential Ord2 Eos ABS# 0.2 K/ul 03/02/2018 Cbc With Differential Ord2 Baso ABS# 0.1 K/ul 03/02/2018 Influenza A+B Nib945 Influ A+B Negative 01/08/2018 C A/B FLU [id number] Influenza A Scr TNP:Improper Specimen 01/07 C A/B FLU [id number] Influenza B Scr TNP:Improper Specimen 01/07 C A/B FLU [id number] Influenza Intrp B AG: PRID:PT:NOSE:NOM:IF TNP:Improper Specimen 01/07/2018 C A/B FLU [id number] IC OK? TNP:Improper Specimen 01/07/2018 Hepatic Baa673 ALBUMIN 3.7 g/dL 08/06/2017 Hepatic Bzc755 TPRO 5.9 g/dL 08/06/2017 Hepatic Eft782 GLOB 2.2 g/dL 08/06/2017 Hepatic Fxn010 A/G Ratio 1.7 Ratio 08/06/2017 Hepatic Lvx178 ALK PHOS 46 U/L 08/06/2017 Hepatic Cfa495 ALT(SGPT) 9 U/L 08/06/2017 Hepatic Iek941 AST(SGOT) 13 U/L 08/06/2017 Hepatic Srn647 BILI T 0.6 mg/dL 08/06/2017 Hepatic Qme743 BILI D 0.2 mg/dL 08/06/2017 Hepatic Omt561 BILI I 0.4 mg/dL 08/06/2017 Testosterone Ser100 Testo 474.5 ng/dL 08/06/2017 Cbc With Differential [...] 28.5 pg 08/06/2017 Cbc With Differential Ord2 [place]% 11.2 % 08/06/2017 Cbc With Differential Ord2 [...] 1.33 K/ul 08/06/2017 Cbc With Differential Ord2 [place] ABS# 0.6 K/ul 08/06/2017 Cbc With Differential Ord2 Eos ABS# 0.3 K/ul 08/06/2017 Cbc With Differential Ord2 Baso ABS# 0.1 K/ul 08/06/2017 Comp Metabolic Mxi445 NA 140 mEq/L 06/02/2017 Comp Metabolic Aio644 K 3.8 mEq/L 06/02/2017 Comp Metabolic Fnd368 CL 102 mEq/L 06/02/2017 Comp Metabolic Ukj756 CO2 30.0 mEq/L 06/02/2017 Comp Metabolic Zed065 ANION GAP 12 06/02/2017 Comp Metabolic Poh280 GLUCOSE 100 mg/dL 06/02/2017 Comp Metabolic Fap987 Creat 1.1 mg/dL 06/02/2017 Comp Metabolic Gak367 eGFR 69 ml/min/1.73m2 06/02/2017 Comp Metabolic Vrf332 BUN 15 mg/dL 06/02/2017 Comp Metabolic Tvb197 B/C Ratio 13.4 Ratio 06/02/2017 Comp Metabolic Ugv443 CALCIUM 8.6 mg/dL 06/02/2017 Comp Metabolic Agj704 ALK PHOS 63 U/L 06/02/2017 Comp Metabolic Jqh521 AST(SGOT) 17 U/L 06/02/2017 Comp Metabolic Xfn423 ALT(SGPT) 12 U/L 06/02/2017 Comp Metabolic Jfw643 BILI T 0.5 mg/dL 06/02/2017 Comp Metabolic Tiz540 ALBUMIN 3.9 g/dL 06/02/2017 Comp Metabolic Tiq012 TPRO 6.1 g/dL 06/02/2017 Comp Metabolic Yxp684 GLOB 2.2 g/dL 06/02/2017 Comp Metabolic Ghi685 A/G Ratio 1.8 Ratio 06/02/2017 Comp Metabolic Zds305 Osmo 280 mOsmo 06/02/2017 Vitamin D 25 Oh Mul3308 VITAMIN D, 25 HYDROXY 40.03 ng/mL Cbc [...] 29.7 pg 06/02/2017 Cbc With Differential Ord2 [place]% 10.5 % 06/02/2017 Cbc With Differential Ord2 [...] 1.52 K/ul 06/02/2017 Cbc With Differential Ord2 [place] ABS# 0.6 K/ul 06/02/2017 Cbc With Differential Ord2 Eos ABS# 0.2 K/ul 06/02/2017 Cbc With Differential Ord2 Baso ABS# 0.1 K/ul 06/02/2017 Testosterone Jyi331 Testo 198.4 ng/dL 04/29/2017 Vitamin D 25 Oh Ooe2440 VITAMIN D, 25 HYDROXY 29.25 ng/mL Lipid [...] lips 12/15/2017 None Full Exam - General 1995 Ears/Nose/Throat lips/teeth/gingiva Overall: normal dentition 12/15/2017 None Full Exam - General 1994 Ears/Nose/Throat oral cavity/pharynx/larynx Overall: oral mucosa clear 12/15/2017 None Full Exam - General 1994 Ears/Nose/Throat oral cavity/pharynx/larynx Overall: oropharyngeal mucosa clear 12/15/2017 None Full Exam - General 1995 Ears/Nose/Throat oral cavity/pharynx/larynx Overall: hypopharynx benign 12/15/2017 [...] rotation 07/24/2017 None Full Exam - General 1995 Constitutional general appearance Development: well developed 07/14/2017 [...] Procedure Codes Date THER/PROPH/DIAG INJ SC/IM CPT-4: 49073 03/06/2018 THER/PROPH/DIAG INJ SC/IM CPT-4: 95850 02/19/2018 THER/PROPH/DIAG INJ SC/IM CPT-4: 11567 02/03/2018 THER/PROPH/DIAG INJ SC/IM CPT-4: 72858 01/07/2018 TRIAMCINOLONE ACET INJ NOS CPT-4: J3301 01/07/2018 ROCEPHIN, PER 250 MG CPT-4: J0696 01/07/2018 THER/PROPH/DIAG INJ SC/IM CPT-4: 63324 01/05/2018 THER/PROPH/DIAG INJ SC/IM CPT-4: 39926 12/15/2017 THER/PROPH/DIAG INJ SC/IM CPT-4: 64212 12/04/2017 PPPS, SUBSEQ VISIT CPT -4: G0439 11/27/2017 ADMIN INFLUENZA VIRUS VAC CPT-4: G0008 11/17/2017 FLU VAC NO PRSV 4 FATOU 3 YRS+ CPT-4: 80554 11/17/2017 THER/PROPH/DIAG INJ SC/IM CPT-4: 23487 11/17/2017 THER/PROPH/DIAG INJ SC/IM CPT-4: 89301 10/22/2017 THER/PROPH/DIAG INJ SC/IM CPT-4: 06426 10/06/2017 TRIAMCINOLONE ACET INJ NOS CPT-4: J3301 10/06/2017 THER/PROPH/DIAG INJ SC/IM CPT-4: 52110 09/23/2017 THER/PROPH/DIAG INJ SC/IM CPT-4: 91825 08/28/2017 THER/PROPH/DIAG INJ SC/IM CPT-4: 32987 08/12/2017 THER/PROPH/DIAG INJ SC/IM CPT-4: 19595 07/28/2017 THER/PROPH/DIAG INJ SC/IM CPT-4: 66107 07/14/2017 THER/PROPH/DIAG INJ SC/IM CPT-4: 34793 06/26/2017 THER/PROPH/DIAG INJ SC/IM CPT-4: 75266 06/09/2017 THER/PROPH/DIAG INJ SC/IM CPT-4: 53747 05/27/2017 THER/PROPH/DIAG INJ SC/IM CPT-4: 32580 05/13/2017 THER/PROPH/DIAG INJ SC/IM CPT-4: 84363 04/29/2017 Vital Signs Date Vital 03/20/2018 Blood Pressure 1: 122/60 Code : 8480-6 Heart Rate 1: 76 bpm Height: 5'10" SpO2: 96% Weight: 03/10/2018 Blood Pressure 1: 120/70 Code : 8480-6 BMI: 29.0 Code : 19835-4 Heart Rate 1 : 82 bpm Height: 5'10" SpO2: 95% Weight: 202 lbs 01/07/2018 Blood Pressure 1: 126/66 Code : 8480-6 BMI: 30.1 Code : 21617-8 Heart Rate 1 : 75 bpm Height: 5'10" SpO2: 97% Temperature: 36.5 (C) / 97.7 (F) Weight: 210 lbs 12/22/2017 Blood Pressure 1: 124/70 Code : 8480-6 BMI: 29.7 Code : 69207-5 Heart Rate 1 : 84 bpm Height: 5'10" SpO2: 94% Weight: 207 lbs 12/15/2017 Blood Pressure 1: 122/82 Code : 8480-6 BMI: 30.0 Code : 96406-8 Heart Rate 1 : 82 bpm Height: 5'10" SpO2: 93% Weight: 209 lbs 11/27/2017 Blood Pressure 1: 132/68 Code : 8480-6 BMI: 29.3 Code : 22986-6 Heart Rate 1 : 71 bpm Height: 5'10" SpO2: 97% Waist Measure (cm): 97 cm Weight: 204 lbs 11/17/2017 Blood Pressure 1: 130/80 Code : 8480-6 BMI: 29.3 Code : 43999-0 Heart Rate 1 : 73 bpm Height: 5'10" SpO2: 99% Weight: 204 lbs 10/06/2017 Blood Pressure 1: 124/60 Code : 8480-6 BMI: 28.8 Code : 86055-7 Heart Rate 1 : 70 bpm Height: 5'10" SpO2: 98% Weight: 201 lbs 07/24/2017 Blood Pressure 1: 118/70 Code : 8480-6 BMI: 29.3 Code : 57842-8 Heart Rate 1 : 82 bpm Height: 5'10" SpO2: 96% Weight: 204 lbs 07/14/2017 Blood Pressure 1: 118/72 Code : 8480-6 BMI: 29.1 Code : 38395-8 Heart Rate 1 : 83 bpm Height: 5'10" SpO2: 98% Weight: 203 lbs 06/09/2017 Blood Pressure 1: 120/74 Code : 8480-6 BMI: 29.3 Code : 05830-2 Heart Rate 1 : 91 bpm Height: 5'10" SpO2: 99% Weight: 204 lbs 04/28/2017 Blood Pressure 1: 118/68 Code : 8480-6 BMI: 28.8 Code : 75240-4 Heart Rate 1 : 74 bpm Height: 5'10" SpO2: 96% Weight: 201 lbs 03/14/2017 Blood Pressure 1: 114/74 Code : 8480-6 BMI: 28.6 Code : 99846-8 Heart Rate 1 : 77 bpm Height: [...] in left shoulder[ICD10: M25.512] Elise Hollis MD, [facility] CPT-4: 72051 03/20/2018 ([id number] EST. 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 PATIENT, LEVEL III Diagnosis: Other malaise[ICD10: R53.81] Diagnosis: Acute laryngopharyngitis[ICD10: J06.0] Diagnosis: Other allergic rhinitis[ICD10: J30.89] Sapphire Hollis MD, [facility] CPT-4: 42405 01/07/2018 ([id number]) 05451 EST. PATIENT, LEVEL III Diagnosis: Spinal stenosis, lumbosacral region[ICD10: M48.07] Diagnosis: Spinal stenosis, cervical region[ICD10: M48.02] Elise Hollis MD, [facility] CPT-4: 73282 12/22/2017 ([id number] 02293 EST. 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 PATIENT, LEVEL III Diagnosis: Mixed hyperlipidemia[ICD10: E78.2] Diagnosis: Other insomnia[ICD10: G47.09] Leora Hollis MD, [facility] CPT- 4: 01238 11/17/2017 [id number] EST. PATIENT, LEVEL III Diagnosis: Acute laryngopharyngitis[ICD10: J06.0] Diagnosis: Other allergic rhinitis[ICD10: J30.89] Sapphire Hollis MD, [facility] CPT-4: 77464 10/06/2017 93281 EST. PATIENT, LEVEL III Diagnosis: Pain in left shoulder[ICD10: M25.512] Sapphire Hollis MD, [facility] CPT-4: 56458 07/24/2017 ([id number]) 33993 EST. 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] Leora Hollis MD, [facility] CPT-4: 47568 04/28/2017 ([id number]) Miscellaneous no charge Diagnosis: Impacted cerumen, bilateral[ICD10: H61.23] Leora Hollis MD, [facility] CPT-4: 31237 03/17/2017 ([id number]) OFFICE VISIT, NEW - LEVEL 4 Diagnosis: Mixed hyperlipidemia[ICD10: E78.2] Diagnosis: Chronic pain syndrome[ICD10: G89.4] Diagnosis: Presbycusis, bilateral[ICD10: H91.13] Diagnosis: Impacted cerumen, bilateral[ICD10: H61.23] Diagnosis: Atherosclerotic heart disease of [place] coronary artery without angina pectoris[ICD10: I25.10] Diagnosis: Personal history of other diseases of the circulatory system[ICD10: Z86.79] Leora Hollis MD, [facility] CPT-4: 45196 2017 Plan of Care Planned Activity Notes [...] pain - refilled hydrocodone- keep appt with [employer] for treatment of stenosis of arteries, then pt most-likely to have surgical intervention of spine. PAD - pt will need surgical intervention with stenting. Testicular hypofunction - continue with testosterone. 03/10/2018 [facility] [phone] [facility] ([facility] min) Moderate 03/10/2018 Patient Education: Patient Medication Summary Completed 03/10/2018 Patient Education: Back Pain Completed 03/10/2018 Patient Education: Cholesterol Management Completed 03/10/2018 [facility] [phone] [facility] (15 min) Moderate 03/09/2018 Appointment: Injection 03/06/2018 [...] allergy spray. 01/07/2018 Appointment: Sapphire Oneil WPtel: [address] [place], [place] [phone] (15 min) Moderate 01/07/2018 Patient Education: Patient [...] of plan. 12/22/2017 Appointment: Elise Castillo WPtel: [address] [place], [place] [phone] (15 min) Moderate 12/22/2017 Patient Education: Patient Medication Summary Completed 12/22/2017 Visit Plan: Neck and low back pain -will schedule MRI lumbar and cervical spine for further evaluation and proceed as indicated- patient verbalized understanding of plan. 12/15/2017 Appointment: Elise Castillo WPtel: [address] [place], [place] [phone] (15 min) Moderate 12/15/2017 Patient Education: Patient Medication Summary Completed 12/15/2017 Patient Education: Back Pain Completed 12/15/2017 Care Plan: MRI LUMBAR SPINE W/O DYE LOINC : 17864-2 Pending 12/15/2017 Care Plan: MRI NECK SPINE W/O DYE LOINC : 41466-7 Pending 12/15/2017 Appointment: Injection 12/04/2017 Patient Education: [...] care surrogate. 11/27/2017 Appointment: Sapphire Oneil WPtel: [address] [place], [place] [phone] [place] [address] - Annual Wellness Visit 11/27/2017 Patient Education: [...] to sleep 11/17/2017 Appointment: Leora Hollis WPtel: [facility] [facility] [place] (15 min) Moderate 11/17/2017 Patient Education: [...] spray. 10/06/2017 Appointment: Leora Hollis WPtel: [phone] [facility] (15 min) Moderate 10/06/2017 App[facility]ment[facility] [phone] [facility] (15 min) Moderate 10/06/2017 Patient Education: [...] plan. 07/24/2017 Appointment: Sapphire Oneil [facility] [phone] [facility] (30 min) Complex 07/24/2017 Patient Education: [...] medications. 07/14/2017 App[facility] [phone] [facility] ([facility] min) Moderate 07/14/2017 Patient Education: Patient Medication Summary Completed 07/14/2017 App[facility]ment: [facility] [phone] [facility] [place] (15 min) Moderate 07/10/2017 Appointment: Injection [...] at night 06/09/2017 Appointment: Leora Hollis [id number] [place] ([facility] Complex 06/09/2017 [...] 15 04/28/2017 Appointment: Leora Hollis WPtel: [phone] [facility] (30 min) Complex 04/28/2017 Patient [...] removal 03/14/2017 Appointment: [facility] Holl[phone] [facility] 03/14/2017 Patient Education: [...] pain - refilled hydrocodone- keep appt with [employer] for treatment of stenosis of arteries, then pt most- likely to have surgical intervention of spine. PAD - pt will need surgical intervention with stenting. Testicular hypofunction - continue with testosterone. REFER FOR PHYSICAL THERAPY AT [facility] -HE HAS A PT HE [...]
--- OUTSIDE RECORDS SUMMARY | 2018-06-12 09:23 | XMS REPORT | CCD ---
Author Author [facility] Organization [facility] Address [address] [place] [address] Phone Care Team Providers Care Service Station Cashier Name Role Phone PP Unavailable CCM Unavailable Summary Purpose Interface Exchange Insurance Providers Payer name Policy type / Coverage type Covered alliance party ID Effective Begin Date Effective End Date WPS Medicare Part B Medicare Part B [id number] 2017 Unknown [facility] Medicare Part B [id number] 2017 Unknown Family history Father Diagnosis Age At Onset Heart Attack Unknown Social History Social History Element Codes Description Effective Dates Marital status Unknown 03/14/2017 Number of children Unknown 2 03/14/[address]: 5454625 Former smoker Quit 11/03/00; smoke 1/2 pack/day x15 years 03/14/[address]: 584420790 Never drinks alcohol 03/14/2017 Allergies, Adverse Reactions, [...] ICD-9: 327.09 ICD-10: G47.09 Active 11/17/2017 Unknown Pain in left shoulder ICD-9: 719.41 ICD-10: M25.512 Active 07/24/2017 Unknown Chronic obstructive pulmonary disease, unspecified ICD-9: 496 ICD-10: J44.9 Active 07/14/2017 Unknown Hypoxemia ICD-9: 799.02 ICD-10: R09.02 Active 06/09/2017 Unknown 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 ICD-10: G47.14 Active 04/28/2017 Unknown Secondary polycythemia ICD-9: 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.4 ICD-10: D75.1 Active 04/28/2017 Unknown Impacted cerumen, bilateral ICD-9: 380.4 ICD-10: H61.23 Active 03/14/2017 Unknown 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 [...] insomnia ICD-9: 327.09 ICD-10: G47.09 11/17/2017 Active Pain in left shoulder ICD-9: 719.41 ICD-10: M25.512 07/24/2017 Active Chronic obstructive pulmonary disease, unspecified ICD-9: 496 ICD-10: J44.9 07/14/2017 Active Hypoxemia ICD-9: 799.02 ICD-10: R09.02 06/09/2017 Active 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 ICD-10: G47.14 04/28/2017 Active Secondary polycythemia ICD-9: 238.4 ICD-10: D75.1 04/28/2017 Active Impacted cerumen, bilateral ICD-9: 380.4 ICD-10: H61.23 03/14/2017 Active 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 ICD-10: I25.10 03/14/2017 Active Chronic pain syndrome ICD-9: 338.4 ICD-10: G89.4 03/14/2017 Active Personal history of other diseases of the circulatory system ICD-9: V12.59 ICD-10: Z86.79 03/14/2017 Active Presbycusis, 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 03/14/2017 Active Medications Medication Codes Instructions Start Date Stop Date Status Fill Instructions hydrocodone 5 mg-acetaminophen 325 mg tablet RxNorm: 661556 1-2 Tablet(s) PO Q6 PRN 03/20/2018 04/18/2018 Active zolpidem 5 mg tablet RxNorm: 593430 Tablet(s) TAKE ONE TABLET BY MOUTH EVERY NIGHT AT BEDTIME NEEDED 03/18/2018 Active clopidogrel 75 mg tablet RxNorm: 321160 1 Tablet(s) PO daily 04/15/2018 Active furosemide 40 mg tablet RxNorm: 995425 TAKE ONE TABLET BY MOUTH DAILY 03/17/2018 09/12/2018 Active testosterone cypionate 200 mg/mL intramuscular oil RxNorm: 1334124 Milliliter(s) IM 03/06/2018 03/06/2018 Inactive testosterone cypionate 200 mg/mL intramuscular oil RxNorm: 0577312 Milliliter(s) IM 02/19/2018 02/19/2018 Inactive hydrocodone 5 mg-acetaminophen 325 mg tablet RxNorm: 500093 1-2 Tablet(s) PO Q6 PRN 02/18/2018 03/09/2018 Inactive zolpidem 5 mg tablet RxNorm: 079069 TAKE ONE TABLET BY MOUTH EVERY NIGHT AT BEDTIME NEEDED 02/13/2018 03/13/2018 Inactive meloxicam 15 mg tablet RxNorm: 828761 TAKE ONE TABLET BY MOUTH DAILY 02/13/2018 08/11/2018 Active testosterone cypionate 200 mg/mL intramuscular kit RxNorm: 690674 1/2 Milliliter(s ) IM [id number] 02/03/2018 08/01/2018 Active testosterone cypionate 200 mg/mL intramuscular oil RxNorm: 040845 Milliliter(s) IM 02/03/2018 02/03/2018 Inactive prednisone 20 mg tablet RxNorm: 190499 2 Tablet(s) PO QAM 01/0901/13/2018 Inactive cefdinir 300 mg capsule RxNorm: 782707 1 Capsule(s) PO BID 01/18/2018 Inactive prednisone 20 mg tablet RxNorm: 050499 2 Tablet(s) PO QAM 01/0901/08/2018 Inactive cefdinir 300 mg capsule RxNorm: 037464 1 Capsule(s) PO BID 01/08/2018 Inactive Zithromax Z-Timothy 250 mg tablet RxNorm: 135016 1 Tablet(s) PO UD 01/07/2018 No Stop Date Active Kenalog 40 mg/mL suspension for injection RxNorm: 9707237 Milliliter(s) Inj 01/07/2018 01/07/2018 Inactive ceftriaxone 500 mg solution for injection RxNorm: 7028342 Inj 01/07/2018 01/07/2018 Inactive testosterone cypionate 200 mg/mL intramuscular oil RxNorm: 817513 1/2 Milliliter(s ) IM 01/05/2018 01/05/2018 Inactive hydrocodone 5 mg-acetaminophen 325 mg tablet RxNorm: 468827 1-2 Tablet(s) PO Q6 PRN 12/22/2017 02/17/2018 Inactive zolpidem 5 mg tablet RxNorm: 998285 1 Tablet(s) PO 30 min before QHS 12/15/2017 02/12/2018 Inactive testosterone cypionate 200 mg/mL intramuscular oil RxNorm: 927705 Milliliter(s) IM 12/15/2017 12/15/2017 Inactive testosterone cypionate 200 mg/mL intramuscular oil RxNorm: 766455 1/2 Milliliter(s ) IM 12/04/2017 12/04/2017 Inactive testosterone cypionate 200 mg/mL intramuscular oil RxNorm: 677061 1/2 Milliliter(s ) IM 11/17/2017 11/17/2017 Inactive potassium chloride ER 10 mEq capsule,extended release RxNorm: 659227 TAKE ONE CAPSULE BY MOUTH DAILY 11/11/20172018 Active testosterone cypionate 200 mg/mL intramuscular oil RxNorm: 203362 Milliliter(s) IM 10/22/2017 10/22/2017 Inactive zolpidem 5 mg tablet RxNorm: 828774 1 Tablet(s) PO 30 min before QHS 10/15/2017 10/14/2017 Inactive zolpidem 5 mg tablet RxNorm: 470769 1 Tablet(s) PO 30 min before QHS 10/15/2017 12/13/2017 Inactive Zithromax Z-Timothy 250 mg tablet RxNorm: 079303 1 Tablet(s) PO UD 10/07/2017 11/16/2017 Inactive testosterone cypionate 200 mg/mL intramuscular oil RxNorm: 982544 Milliliter(s) IM 10/06/2017 10/06/2017 Inactive Kenalog 40 mg/mL suspension for injection RxNorm: 8455755 Milliliter(s) Inj 10/06/2017 10/06/2017 Inactive Zithromax Z-Timothy 250 mg tablet RxNorm: 694236 1 Tablet(s) PO UD 10/06/2017 10/06/2017 Inactive testosterone cypionate 200 mg/mL intramuscular oil RxNorm: 604546 Milliliter(s) IM 09/23/2017 09/23/2017 Inactive testosterone cypionate 200 mg/mL intramuscular kit RxNorm: 228658 1/2 Milliliter(s ) IM [id number] 08/28/2017 02/02/2018 Inactive meloxicam 15 mg tablet RxNorm: 569645 TAKE ONE TABLET BY MOUTH DAILY 08/28/2017 02/12/2018 Inactive testosterone cypionate 200 mg/mL intramuscular oil RxNorm: 370353 Milliliter(s) IM 08/28/2017 08/28/2017 Inactive testosterone cypionate 200 mg/mL intramuscular oil RxNorm: 182338 1/2 Milliliter(s ) IM 08/12/2017 08/12/2017 Inactive meloxicam 15 mg tablet RxNorm: 733926 1 Tablet(s) PO daily 08/201708/27/2017 Inactive atorvastatin 40 mg tablet RxNorm: 830451 TAKE ONE TABLET BY MOUTH DAILY 07/30/2017 02/24/2018 Inactive furosemide 40 mg tablet RxNorm: 429278 TAKE ONE TABLET BY MOUTH DAILY 07/30/2017 02/24/2018 Inactive testosterone cypionate 200 mg/mL intramuscular oil RxNorm: 432987 1/2 Milliliter(s ) IM 07/28/2017 07/28/2017 Inactive testosterone cypionate 200 mg/mL intramuscular oil RxNorm: 570179 1/2 Milliliter(s ) IM 07/14/2017 07/14/2017 Inactive testosterone cypionate 200 mg/mL intramuscular oil RxNorm: 676887 1/2 Milliliter(s ) IM 06/26/2017 06/26/2017 Inactive hydrocodone 5 mg-acetaminophen 325 mg tablet RxNorm: 182763 1 Tablet(s) PO QHS and 1 tab PO daily PRN pain 06/09/2017 Inactive hydrocodone 5 mg-acetaminophen 325 mg tablet RxNorm: 256983 1 Tablet(s) PO daily 06/09/2017 06/18/2017 Inactive testosterone cypionate 200 mg/mL intramuscular oil RxNorm: 808246 1/2 Milliliter(s ) IM 06/09/2017 06/09/2017 Inactive testosterone cypionate 200 mg/mL intramuscular oil RxNorm: 181573 Milliliter(s) IM 05/27/2017 05/27/2017 Inactive testosterone cypionate 200 mg/mL intramuscular oil RxNorm: 532268 Milliliter(s) IM 05/13/2017 05/13/2017 Inactive potassium chloride ER 10 mEq capsule,extended release RxNorm: 810685 1 Capsule(s) PO daily 05/07/2017 11/02/2017 Inactive Vitamin D2 50,000 unit capsule RxNorm: 056756 1 Capsule(s) PO QW 05/06/2017 05/05/2017 Inactive take with OTC vitamin d 2,000 units QD testosterone cypionate 200 mg/mL intramuscular kit RxNorm: 421607 1/2 kit IM 2 x month 05/06/2017 08/27/2017 Inactive Vitamin D2 50,000 unit capsule RxNorm: 047684 1 Capsule(s) PO QW 05/06/2017 08/03/2017 Inactive take with OTC vitamin d 2,000 units QD testosterone cypionate 200 mg/mL intramuscular oil RxNorm: 010017 1/2 Milliliter(s ) IM 04/29/2017 04/29/2017 Inactive fluorouracil 5 % topical cream RxNorm: 143466 1 Application TOP BID 04/28/2017 05/07/2017 Inactive testosterone cypionate 200 mg/mL intramuscular kit RxNorm: 445973 1/2 IM 2 x month 04/28/2017 05/05/2017 Inactive Pamelor 10 mg capsule RxNorm: 441382 1 Capsule(s) PO daily No Start Date Active gabapentin 300 mg capsule RxNorm: 225396 6 Capsule(s) PO daily No Start Date Active cyclobenzaprine 5 mg tablet RxNorm: 172352 1 Tablet(s) PO as needed No Start Date Active diclofenac 1 % topical gel RxNorm: 283385 1 Gram(s) TOP as needed No Start Date Active meloxicam 15 mg tablet RxNorm: 530366 1 Tablet(s) PO daily No Start Date 07/30/2017 Inactive potassium chloride ER 10 mEq tablet,extended release RxNorm: 883695 1 Tablet(s) PO daily No Start Date 05/06/2017 Inactive hydrocodone 5 mg-acetaminophen 325 mg tablet RxNorm: 441329 1 Tablet(s) PO daily No Start Date 06/08/2017 Inactive furosemide 40 mg tablet RxNorm: 159460 1 Tablet(s) PO daily No Start Date 07/29/2017 Inactive atorvastatin 40 mg tablet RxNorm: 748393 1 Tablet(s) PO QHS No Start Date 07/29/2017 Inactive clopidogrel 75 mg tablet RxNorm: 941485 1 Tablet(s) PO daily No Start Date 03/16/2018 Inactive Medication Administered Medication Codes Instructions Start Date Status testosterone cypionate 200 mg/mL intramuscular oil RxNorm: 0075998 Milliliter 03/06/2018 No longer Active testosterone cypionate 200 mg/mL intramuscular oil RxNorm: 4586706 Milliliter 02/19/2018 No longer Active testosterone cypionate 200 mg/mL intramuscular oil RxNorm: 738941 Milliliter 02/03/2018 No longer Active Kenalog 40 mg/mL suspension for injection RxNorm: 9274302 Milliliter 01/07/2018 No longer Active ceftriaxone 500 mg solution for injection RxNorm: 2577758 01/07/2018 No longer Active testosterone cypionate 200 mg/mL intramuscular oil RxNorm: 301276 /2Milliliter 01/05/2018 No longer Active testosterone cypionate 200 mg/mL intramuscular oil RxNorm: 050085 Milliliter 12/15/2017 No longer Active testosterone cypionate 200 mg/mL intramuscular oil RxNorm: 400896 /2Milliliter 12/04/2017 No longer Active testosterone cypionate 200 mg/mL intramuscular oil RxNorm: 919195 1/2Milliliter 11/17/2017 No longer Active testosterone cypionate 200 mg/mL intramuscular oil RxNorm: 939468 Milliliter 10/22/2017 No longer Active Kenalog 40 mg/mL suspension for injection RxNorm: 4196415 Milliliter 10/06/2017 No longer Active testosterone cypionate 200 mg/mL intramuscular oil RxNorm: 768398 Milliliter 10/06/2017 No longer Active testosterone cypionate 200 mg/mL intramuscular oil RxNorm: 343991 Milliliter 09/23/2017 No longer Active testosterone cypionate 200 mg/mL intramuscular oil RxNorm: 998356 Milliliter 08/28/2017 No longer Active testosterone cypionate 200 mg/mL intramuscular oil RxNorm: 917996 2Milliliter 08/12/2017 No longer Active testosterone cypionate 200 mg/mL intramuscular oil RxNorm: 918251 /2Milliliter 07/28/2017 No longer Active testosterone cypionate 200 mg/mL intramuscular oil RxNorm: 175420 /2Milliliter 07/14/2017 No longer Active testosterone cypionate 200 mg/mL intramuscular oil RxNorm: 967913 illiliter 06/26/2017 No longer Active testosterone cypionate 200 mg/mL intramuscular oil RxNorm: 277831 /2Milliliter 06/09/2017 No longer Active testosterone cypionate 200 mg/mL intramuscular oil RxNorm: 616222 Milliliter 05/27/2017 No longer Active testosterone cypionate 200 mg/mL intramuscular oil RxNorm: 370804 Milliliter 05/13/2017 No longer Active testosterone cypionate 200 mg/mL intramuscular oil RxNorm: 339062 2Milliliter 04/29/2017 No longer Active Immunizations Vaccine Codes Date Status Influenza CVX: 141 11/17/2017 completed Assessments Condition Codes Effective Dates Mixed hyperlipidemia ICD-10: E78.2 ICD-9: 272.2 03/10/2018 [...] Other insomnia ICD-10: G47.09 ICD-9: 327.09 11/17/2017 Pain in left shoulder ICD-10: M25.512 ICD-9: 719.41 07/24/2017 Chronic obstructive pulmonary disease, unspecified ICD-10: J44.9 ICD-9: 496 07/14/2017 Hypoxemia ICD-10: R09.02 ICD-9: 799.02 06/09/2017 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 ICD-9: 327.14 04/28/2017 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 ICD-9: 238.4 04/28/2017 Impacted cerumen, bilateral ICD-10: H61.23 ICD-9: 380.4 03/17/2017 Atherosclerotic heart disease of [place] coronary artery without angina pectoris ICD-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.10 ICD-9: 414.00 03/14/2017 Chronic pain syndrome ICD-10: G89.4 ICD-9: 338.4 03/14/2017 Personal history of other diseases of the circulatory system ICD-10: Z86.79 ICD-9: V12.59 03/14/2017 Presbycusis, bilateral ICD-10: H91.13 ICD-9: 388.01 03/14/2017 Reason For Visit Reason For Visit Effective Dates Notes back pain 03/10/2018 sinus congestion 01/07/2018 back pain 12/22/2017 back pain 12/15/2017 Annual Medicare Wellness Exam 11/27/2017 shoulder pain 11/17/2017 sinus congestion 10/06/2017 shoulder pain 07/24/2017 abnormal test results 07/14/2017 fatigue 06/09/2017 fatigue 04/28/2017 hyperlipidemia 03/14/2017 R ear Results Observation Observation Code Item Item Code Result Date Testosterone [id number] Testo 375.1 ng/dL 03/02/2018 Cbc With Differential [...] 25.6 pg 03/02/2018 Cbc With Differential Ord2 [place]% 7.9 % 03/02/2018 Cbc With Differential Ord2 [...] 1.41 K/ul 03/02/2018 Cbc With Differential Ord2 [place] ABS# 0.8 K/ul 03/02/2018 Cbc With Differential Ord2 Eos ABS# 0.2 K/ul 03/02/2018 Cbc With Differential Ord2 Baso ABS# 0.1 K/ul 03/02/2018 Influenza A+B Ddq437 Influ A+B Negative 01/08/2018 C A/B FLU [id number] Influenza A Scr TNP:Improper Specimen 01/07 C A/B FLU [id number] Influenza B Scr TNP:Improper Specimen 01/07 C A/B FLU [id number] IC OK? TNP:Improper Specimen 01/07/2018 C A/B FLU [id number] Influenza Intrp B AG: PRID:PT:NOSE:NOM:IF TNP:Improper Specimen 01/07/2018 Hepatic Yfx159 ALBUMIN 3.7 g/dL 08/06/2017 Hepatic Sig964 TPRO 5.9 g/dL 08/06/2017 Hepatic Isq722 GLOB 2.2 g/dL 08/06/2017 Hepatic Gmv244 A/G Ratio 1.7 Ratio 08/06/2017 Hepatic Ibs356 ALK PHOS 46 U/L 08/06/2017 Hepatic Cvo311 ALT(SGPT) 9 U/L 08/06/2017 Hepatic Vra744 AST(SGOT) 13 U/L 08/06/2017 Hepatic Ccb687 BILI T 0.6 mg/dL 08/06/2017 Hepatic Mfg492 BILI D 0.2 mg/dL 08/06/2017 Hepatic Xjz662 BILI I 0.4 mg/dL 08/06/2017 Testosterone Czu975 Testo 474.5 ng/dL 08/06/2017 Cbc With Differential [...] 28.5 pg 08/06/2017 Cbc With Differential Ord2 [place]% 11.2 % 08/06/2017 Cbc With Differential Ord2 [...] 1.33 K/ul 08/06/2017 Cbc With Differential Ord2 [place] ABS# 0.6 K/ul 08/06/2017 Cbc With Differential Ord2 Eos ABS# 0.3 K/ul 08/06/2017 Cbc With Differential Ord2 Baso ABS# 0.1 K/ul 08/06/2017 Comp Metabolic Mmf680 NA 140 mEq/L 06/02/2017 Comp Metabolic Tdy177 K 3.8 mEq/L 06/02/2017 Comp Metabolic Ips861 CL 102 mEq/L 06/02/2017 Comp Metabolic Gba825 CO2 30.0 mEq/L 06/02/2017 Comp Metabolic Plq887 ANION GAP 12 06/02/2017 Comp Metabolic Ixt665 GLUCOSE 100 mg/dL 06/02/2017 Comp Metabolic Yqv109 Creat 1.1 mg/dL 06/02/2017 Comp Metabolic Nka793 eGFR 69 ml/min/1.73m2 06/02/2017 Comp Metabolic Nsj742 BUN 15 mg/dL 06/02/2017 Comp Metabolic Wdf703 B/C Ratio 13.4 Ratio 06/02/2017 Comp Metabolic Nlm777 CALCIUM 8.6 mg/dL 06/02/2017 Comp Metabolic Nra982 ALK PHOS 63 U/L 06/02/2017 Comp Metabolic Wra543 AST(SGOT) 17 U/L 06/02/2017 Comp Metabolic Lib634 ALT(SGPT) 12 U/L 06/02/2017 Comp Metabolic Zjt945 BILI T 0.5 mg/dL 06/02/2017 Comp Metabolic Sdq570 ALBUMIN 3.9 g/dL 06/02/2017 Comp Metabolic Sdc640 TPRO 6.1 g/dL 06/02/2017 Comp Metabolic Ova652 GLOB 2.2 g/dL 06/02/2017 Comp Metabolic Jwm986 A/G Ratio 1.8 Ratio 06/02/2017 Comp Metabolic Esg130 Osmo 280 mOsmo 06/02/2017 Vitamin D 25 Oh Wiw2944 VITAMIN D, 25 HYDROXY 40.03 ng/mL Cbc [...] 93.0 fl 06/02/2017 Cbc With Differential Ord2 [place]% 10.5 % 06/02/2017 Cbc With Differential Ord2 [...] 1.52 K/ul 06/02/2017 Cbc With Differential Ord2 [place] ABS# 0.6 K/ul 06/02/2017 Cbc With Differential Ord2 Eos ABS# 0.2 K/ul 06/02/2017 Cbc With Differential Ord2 Baso ABS# 0.1 K/ul 06/02/2017 Testosterone Nzt741 Testo 198.4 ng/dL 04/29/2017 Vitamin D 25 Oh Jbe3905 VITAMIN D, 25 HYDROXY 29.25 ng/mL Lipid [...] sounds 12/22/2017 None Full Exam - General 1995 Lymphatic neck nodes Overall: anterior cervical chain [...] Procedure Codes Date THER/PROPH/DIAG INJ SC/IM CPT-4: 47723 03/06/2018 THER/PROPH/DIAG INJ SC/IM CPT-4: 06997 02/19/2018 THER/PROPH/DIAG INJ SC/IM CPT-4: 38526 02/03/2018 THER/PROPH/DIAG INJ SC/IM CPT-4: 56762 01/07/2018 TRIAMCINOLONE ACET INJ NOS CPT-4: J3301 01/07/2018 ROCEPHIN, PER 250 MG CPT-4: J0696 01/07/2018 THER/PROPH/DIAG INJ SC/IM CPT-4: 24797 01/05/2018 THER/PROPH/DIAG INJ SC/IM CPT-4: 80856 12/15/2017 THER/PROPH/DIAG INJ SC/IM CPT-4: 01123 12/04/2017 PPPS, SUBSEQ VISIT CPT -4: G0439 11/27/2017 ADMIN INFLUENZA VIRUS VAC CPT-4: G0008 11/17/2017 FLU VAC NO PRSV 4 FATOU 3 YRS+ CPT-4: 03061 11/17/2017 THER/PROPH/DIAG INJ SC/IM CPT-4: 39982 11/17/2017 THER/PROPH/DIAG INJ SC/IM CPT-4: 90389 10/22/2017 THER/PROPH/DIAG INJ SC/IM CPT-4: 51686 10/06/2017 TRIAMCINOLONE ACET INJ NOS CPT-4: J3301 10/06/2017 THER/PROPH/DIAG INJ SC/IM CPT-4: 84644 09/23/2017 THER/PROPH/DIAG INJ SC/IM CPT-4: 34044 08/28/2017 THER/PROPH/DIAG INJ SC/IM CPT-4: 45104 08/12/2017 THER/PROPH/DIAG INJ SC/IM CPT-4: 08902 07/28/2017 THER/PROPH/DIAG INJ SC/IM CPT-4: 14997 07/14/2017 THER/PROPH/DIAG INJ SC/IM CPT-4: 69331 06/26/2017 THER/PROPH/DIAG INJ SC/IM CPT-4: 47967 06/09/2017 THER/PROPH/DIAG INJ SC/IM CPT-4: 36776 05/27/2017 THER/PROPH/DIAG INJ SC/IM CPT-4: 60736 05/13/2017 THER/PROPH/DIAG INJ SC/IM CPT-4: 71218 04/29/2017 Vital Signs Date Vital 03/10/2018 Blood Pressure 1: 120/70 Code : 8480-6 BMI: 29.0 Code : 00312-9 Heart Rate 1 : 82 bpm Height: 5'10" SpO2: 95% Weight: 202 lbs 01/07/2018 Blood Pressure 1: 126/66 Code : 8480-6 BMI: 30.1 Code : 05852-9 Heart Rate 1 : 75 bpm Height: 5'10" SpO2: 97% Temperature: 36.5 (C) / 97.7 (F) Weight: 210 lbs 12/22/2017 Blood Pressure 1: 124/70 Code : 8480-6 BMI: 29.7 Code : 51713-6 Heart Rate 1 : 84 bpm Height: 5'10" SpO2: 94% Weight: 207 lbs 12/15/2017 Blood Pressure 1: 122/82 Code : 8480-6 BMI: 30.0 Code : 81873-6 Heart Rate 1 : 82 bpm Height: 5'10" SpO2: 93% Weight: 209 lbs 11/27/2017 Blood Pressure 1: 132/68 Code : 8480-6 BMI: 29.3 Code : 57864-8 Heart Rate 1 : 71 bpm Height: 5'10" SpO2: 97% Waist Measure (cm): 97 cm Weight: 204 lbs 11/17/2017 Blood Pressure 1: 130/80 Code : 8480-6 BMI: 29.3 Code : 68687-5 Heart Rate 1 : 73 bpm Height: 5'10" SpO2: 99% Weight: 204 lbs 10/06/2017 Blood Pressure 1: 124/60 Code : 8480-6 BMI: 28.8 Code : 55019-4 Heart Rate 1 : 70 bpm Height: 5'10" SpO2: 98% Weight: 201 lbs 07/24/2017 Blood Pressure 1: 118/70 Code : 8480-6 BMI: 29.3 Code : 54661-4 Heart Rate 1 : 82 bpm Height: 5'10" SpO2: 96% Weight: 204 lbs 07/14/2017 Blood Pressure 1: 118/72 Code : 8480-6 BMI: 29.1 Code : 88793-7 Heart Rate 1 : 83 bpm Height: 5'10" SpO2: 98% Weight: 203 lbs 06/09/2017 Blood Pressure 1: 120/74 Code : 8480-6 BMI: 29.3 Code : 38654-2 Heart Rate 1 : 91 bpm Height: 5'10" SpO2: 99% Weight: 204 lbs 04/28/2017 Blood Pressure 1: 118/68 Code : 8480-6 BMI: 28.8 Code : 39318-4 Heart Rate 1 : 74 bpm Height: 5'10" SpO2: 96% Weight: 201 lbs 03/14/2017 Blood Pressure 1: 114/74 Code : 8480-6 BMI: 28.6 Code : 88226-5 Heart Rate 1 : 77 bpm Height: 5'10" SpO2: 97% Weight: 199 lbs Functional Status No Functional Status data History of Present Illness Symptom Name Status Result Effective Date Notes Location lumbar-sacral spine 03/10/2018 None Quality constant [...] data Encounters Encounter Performer Location Codes Date ([id number]) [id number] EST. 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 PATIENT, LEVEL III Diagnosis: Other malaise[ICD10: R53.81] Diagnosis: Acute laryngopharyngitis[ICD10: J06.0] Diagnosis: Other allergic rhinitis[ICD10: J30.89] Sapphire Hollis MD, [facility] CPT-4: 26484 01/07/2018 [id number]) [id number] EST. PATIENT, LEVEL III Diagnosis: Spinal stenosis, lumbosacral region[ICD10: M48.07] Diagnosis: Spinal stenosis, cervical region[ICD10: M48.02] Elise Hollis MD, [facility] CPT-4: 96854 12/22/2017 ([id number]) 95331 EST. 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 PATIENT, LEVEL III Diagnosis: Mixed hyperlipidemia[ICD10: E78.2] Diagnosis: Other insomnia[ICD10: G47.09] Leora Hollis MD, [facility] CPT- 4: 86951 11/17/2017 [id number] EST. PATIENT, LEVEL III Diagnosis: Acute laryngopharyngitis[ICD10: J06.0] Diagnosis: Other allergic rhinitis[ICD10: J30.89] Sapphire Hollis MD, [facility] CPT-4: 71286 10/06/2017 [id number] EST. PATIENT, LEVEL III Diagnosis: Pain in left shoulder[ICD10: M25.512] Sapphire Hollis MD, [facility] CPT-4: 13121 07/24/2017 ([id number]) 19647 EST. 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] [facility] CPT-4: 11667 04/28/2017 ([id number]) Miscellaneous no charge Diagnosis: Impacted cerumen, bilateral[ICD10: H61.23] [facility] CPT-4: 29286 03/17/2017 ([id number]) OFFICE VISIT, NEW - LEVEL 4 Diagnosis: Mixed hyperlipidemia[ICD10: E78.2] Diagnosis: Chronic pain syndrome[ICD10: G89.4] Diagnosis: Presbycusis, bilateral[ICD10: H91.13] Diagnosis: Impacted cerumen, bilateral[ICD10: H61.23] Diagnosis: Atherosclerotic heart disease of [place] coronary artery without angina pectoris[ICD10: I25.10] Diagnosis: Personal history of other diseases of the circulatory system[ICD10: Z86.79] [facility] CPT-4: 25147 2017 Plan of Care Planned Activity Notes Codes Status Date Visit Plan: Spinal stenosis with back pain - refilled hydrocodone- keep appt with [facility] for treatment of stenosis of arteries, then pt most-likely to have surgical intervention of spine. PAD - pt will need surgical intervention with stenting. Testicular hypofunction - continue with testosterone. 03/10/2018 Appointment: Leora Hollis WPtel: [address] [place], [place] [phone] (15 min) Moderate 03/10/2018 Patient Education: Patient Medication Summary Completed 03/10/2018 Patient Education: Back Pain Completed 03/10/2018 Patient Education: Cholesterol Management Completed 03/10/2018 Appointment: Leora Hollis WPtel: [address] [place], [place] [phone] (15 min) Moderate 03/09/2018 Appointment: Injection 03/06/2018 [...] 01/07/2018 Appointment: Sapphire Oneil WPtel: [facility] (15 min) Moderate 01/07/2018 Patient Education: Patient [...] 12/22/2017 Appointment: Elise Castillo WPtel: [phone] (15 min) Moderate 12/22/2017 Patient Education: Patient Medication Summary Completed 12/22/2017 Visit Plan: Neck and low back pain -will schedule MRI lumbar and cervical spine for further evaluation and proceed as indicated- patient verbalized understanding of plan. 12/15/2017 Appointment: Elise Castillo WPtel: [phone] [id number] [place] [address] (15 min) Moderate 12/15/2017 Patient Education: Patient Medication Summary Completed 12/15/2017 Patient Education: Back Pain Completed 12/15/2017 Care Plan: MRI LUMBAR SPINE W/O DYE LOINC : 36374-7 Pending 12/15/2017 Care Plan: MRI NECK SPINE W/O DYE LOINC : 83802-1 Pending 12/15/2017 Appointment: Injection 12/04/2017 Patient Education: [...] paperwork for health care surrogate. 11/27/2017 Appointment: Spaphire Oneil WPtel: [phone] [facility] [facility] - Annual Wellness Visit [...] 11/17/2017 Appointment: Leora Hollis WPtel: [facility] (15 min) Moderate 11/17/2017 Patient Education: Patient [...] allergy spray. 10/06/2017 Appointment: Leora Hollis WPtel[facility] ([facility] min) Moderate 10/06/2017 Appointment: Sapphire Oneil WPtel: [facility] (15 min) Moderate 10/06/2017 Patient Education: Patient [...] weakness after fall - Discussed with Dr. Torres office - they are going to contact him tomorrow for a possible appointment - pt is to notify clinic with any change in the current treatment plan. 07/24/2017 Appointment: [place] Oneil [phone] (30 min) Complex 07/24/2017 Patient Education: Patient [...] medications. 07/14/2017 [facility]ment: [phone] ([facility] min) Moderate 07/14/2017 Patient Education: Patient Medication Summary Completed 07/14/2017 App[facility]ment: [phone] (15 min) Moderate 07/10/2017 Appointment: Injection [...] at night 06/09/2017 Appointment: [phone] (30 min) Complex 06/09/2017 Patient Education: [...] 15 04/28/2017 Appointment: [phone] (30 min) Complex 04/28/2017 Patient Education: [...] removal 03/14/2017 Appointment: [phone] [facility] Patient 03/14/2017 Patient Education: Patient [...] pain - refilled hydrocodone- keep appt with [facility] for treatment of stenosis of arteries, then pt most- likely to have surgical intervention of spine. PAD - pt will need surgical intervention with stenting. Testicular hypofunction - continue with testosterone. REFER FOR PHYSICAL THERAPY AT [facility] -HE HAS A PT HE [...] weakness after fall - Discussed with Dr. Torres office - they are going to contact him tomorrow for a possible appointment - pt is to notify clinic with any change in the current treatment plan.
--- OUTSIDE RECORDS SUMMARY | 2018-06-12 09:25 | XMS REPORT | CCD ---
Author Author [facility] Organization [facility] Address [address] [place] [address] Phone Care Team Providers Care Financial Aid Director Name Role Phone PP Unavailable CCM Unavailable Summary Purpose Interface Exchange Insurance Providers Payer name Policy type / Coverage type Covered constitution party ID Effective Begin Date Effective End Date WPS Medicare Part B Medicare Part B [id number] 2017 Unknown [facility] Medicare Part B [id number] 2017 Unknown Family history Father Diagnosis Age At Onset Heart Attack Unknown Social History Social History Element Codes Description Effective Dates Marital status Unknown 03/14/2017 Number of children Unknown 2 03/14/[address]: 7033476 Former smoker Quit 11/03/00; smoke 1/2 pack/day x15 years 03/14/[address]: 640121540 Never drinks alcohol 03/14/2017 Allergies, Adverse Reactions, [...] Active 03/14/2017 Unknown 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 [...] H61.23 03/14/2017 Active 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 ICD-10: I25.10 03/14/2017 Active Chronic pain syndrome ICD-9: 338.4 ICD-10: G89.4 03/14/2017 Active Personal history of other diseases of the circulatory system ICD-9: V12.59 ICD-10: Z86.79 03/14/2017 Active Presbycusis, 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 03/14/2017 Active Medications Medication Codes Instructions Start Date Stop Date Status Fill Instructions hydrocodone 5 mg-acetaminophen 325 mg tablet RxNorm: 725831 1-2 Tablet(s) PO Q6 PRN 03/20/2018 04/18/2018 Active clopidogrel 75 mg tablet RxNorm: 237993 1 Tablet(s) PO daily 04/15/2018 Active furosemide 40 mg tablet RxNorm: 803927 TAKE ONE TABLET BY MOUTH DAILY 03/17/2018 09/12/2018 Active testosterone cypionate 200 mg/mL intramuscular oil RxNorm: 2246104 Milliliter(s) IM 03/06/2018 03/06/2018 Inactive testosterone cypionate 200 mg/mL intramuscular oil RxNorm: 0795893 Milliliter(s) IM 02/19/2018 02/19/2018 Inactive hydrocodone 5 mg-acetaminophen 325 mg tablet RxNorm: 915780 1-2 Tablet(s) PO Q6 PRN 02/18/2018 03/09/2018 Inactive meloxicam 15 mg tablet RxNorm: 209136 TAKE ONE TABLET BY MOUTH DAILY 02/13/2018 08/11/2018 Active zolpidem 5 mg tablet RxNorm: 009077 TAKE ONE TABLET BY MOUTH EVERY NIGHT AT BEDTIME NEEDED 02/13/2018 03/14/2018 Inactive testosterone cypionate 200 mg/mL intramuscular kit RxNorm: 094883 1/2 Milliliter(s ) IM Q8opsay 02/03/2018 08/01/2018 Active testosterone cypionate 200 mg/mL intramuscular oil RxNorm: 785414 Milliliter(s) IM 02/03/2018 02/03/2018 Inactive prednisone 20 mg tablet RxNorm: 364094 2 Tablet(s) PO QAM 01/0901/13/2018 Inactive cefdinir 300 mg capsule RxNorm: 905336 1 Capsule(s) PO BID 01/18/2018 Inactive prednisone 20 mg tablet RxNorm: 753130 2 Tablet(s) PO QAM 01/0901/08/2018 Inactive cefdinir 300 mg capsule RxNorm: 241389 1 Capsule(s) PO BID 01/08/2018 Inactive Zithromax Z-Timothy 250 mg tablet RxNorm: 652281 1 Tablet(s) PO UD 01/07/2018 No Stop Date Active Kenalog 40 mg/mL suspension for injection RxNorm: 9640938 Milliliter(s) Inj 01/07/2018 01/07/2018 Inactive ceftriaxone 500 mg solution for injection RxNorm: 7562754 Inj 01/07/2018 01/07/2018 Inactive testosterone cypionate 200 mg/mL intramuscular oil RxNorm: 981675 1/2 Milliliter(s ) IM 01/05/2018 01/05/2018 Inactive hydrocodone 5 mg-acetaminophen 325 mg tablet RxNorm: 921361 1-2 Tablet(s) PO Q6 PRN 12/22/2017 02/17/2018 Inactive zolpidem 5 mg tablet RxNorm: 918731 1 Tablet(s) PO 30 min before QHS 12/15/2017 02/12/2018 Inactive testosterone cypionate 200 mg/mL intramuscular oil RxNorm: 430412 Milliliter(s) IM 12/15/2017 12/15/2017 Inactive testosterone cypionate 200 mg/mL intramuscular oil RxNorm: 197632 1/2 Milliliter(s ) IM 12/04/2017 12/04/2017 Inactive testosterone cypionate 200 mg/mL intramuscular oil RxNorm: 789543 1/2 Milliliter(s ) IM 11/17/2017 11/17/2017 Inactive potassium chloride ER 10 mEq capsule,extended release RxNorm: 190821 TAKE ONE CAPSULE BY MOUTH DAILY 11/11/20172018 Active testosterone cypionate 200 mg/mL intramuscular oil RxNorm: 938952 Milliliter(s) IM 10/22/2017 10/22/2017 Inactive zolpidem 5 mg tablet RxNorm: 784734 1 Tablet(s) PO 30 min before QHS 10/15/2017 10/14/2017 Inactive zolpidem 5 mg tablet RxNorm: 759364 1 Tablet(s) PO 30 min before QHS 10/15/2017 12/13/2017 Inactive Zithromax Z-Timothy 250 mg tablet RxNorm: 966127 1 Tablet(s) PO UD 10/07/2017 11/16/2017 Inactive testosterone cypionate 200 mg/mL intramuscular oil RxNorm: 775474 Milliliter(s) IM 10/06/2017 10/06/2017 Inactive Kenalog 40 mg/mL suspension for injection RxNorm: 3972761 Milliliter(s) Inj 10/06/2017 10/06/2017 Inactive Zithromax Z-Timothy 250 mg tablet RxNorm: 243738 1 Tablet(s) PO UD 10/06/2017 10/06/2017 Inactive testosterone cypionate 200 mg/mL intramuscular oil RxNorm: 130833 Milliliter(s) IM 09/23/2017 09/23/2017 Inactive testosterone cypionate 200 mg/mL intramuscular kit RxNorm: 206965 1/2 Milliliter(s ) IM [id number] 08/28/2017 02/02/2018 Inactive meloxicam 15 mg tablet RxNorm: 501902 TAKE ONE TABLET BY MOUTH DAILY 08/28/2017 02/12/2018 Inactive testosterone cypionate 200 mg/mL intramuscular oil RxNorm: 990034 Milliliter(s) IM 08/28/2017 08/28/2017 Inactive testosterone cypionate 200 mg/mL intramuscular oil RxNorm: 990170 1/2 Milliliter(s ) IM 08/12/2017 08/12/2017 Inactive meloxicam 15 mg tablet RxNorm: 003449 1 Tablet(s) PO daily 08/201708/27/2017 Inactive atorvastatin 40 mg tablet RxNorm: 534667 TAKE ONE TABLET BY MOUTH DAILY 07/30/2017 02/24/2018 Inactive furosemide 40 mg tablet RxNorm: 038965 TAKE ONE TABLET BY MOUTH DAILY 07/30/2017 02/24/2018 Inactive testosterone cypionate 200 mg/mL intramuscular oil RxNorm: 926128 1/2 Milliliter(s ) IM 07/28/2017 07/28/2017 Inactive testosterone cypionate 200 mg/mL intramuscular oil RxNorm: 797410 1/2 Milliliter(s ) IM 07/14/2017 07/14/2017 Inactive testosterone cypionate 200 mg/mL intramuscular oil RxNorm: 935153 1/2 Milliliter(s ) IM 06/26/2017 06/26/2017 Inactive hydrocodone 5 mg-acetaminophen 325 mg tablet RxNorm: 876165 1 Tablet(s) PO QHS and 1 tab PO daily PRN pain 06/09/2017 Inactive hydrocodone 5 mg-acetaminophen 325 mg tablet RxNorm: 471707 1 Tablet(s) PO daily 06/09/2017 06/18/2017 Inactive testosterone cypionate 200 mg/mL intramuscular oil RxNorm: 521724 1/2 Milliliter(s ) IM 06/09/2017 06/09/2017 Inactive testosterone cypionate 200 mg/mL intramuscular oil RxNorm: 541903 Milliliter(s) IM 05/27/2017 05/27/2017 Inactive testosterone cypionate 200 mg/mL intramuscular oil RxNorm: 973112 Milliliter(s) IM 05/13/2017 05/13/2017 Inactive potassium chloride ER 10 mEq capsule,extended release RxNorm: 194484 1 Capsule(s) PO daily 05/07/2017 11/02/2017 Inactive Vitamin D2 50,000 unit capsule RxNorm: 746553 1 Capsule(s) PO QW 05/06/2017 05/05/2017 Inactive take with OTC vitamin d 2,000 units QD testosterone cypionate 200 mg/mL intramuscular kit RxNorm: 241415 1/2 kit IM 2 x month 05/06/2017 08/27/2017 Inactive Vitamin D2 50,000 unit capsule RxNorm: 567333 1 Capsule(s) PO QW 05/06/2017 08/03/2017 Inactive take with OTC vitamin d 2,000 units QD testosterone cypionate 200 mg/mL intramuscular oil RxNorm: 705336 1/2 Milliliter(s ) IM 04/29/2017 04/29/2017 Inactive fluorouracil 5 % topical cream RxNorm: 456745 1 Application TOP BID 04/28/2017 05/07/2017 Inactive testosterone cypionate 200 mg/mL intramuscular kit RxNorm: 992369 1/2 IM 2 x month 04/28/2017 05/05/2017 Inactive Pamelor 10 mg capsule RxNorm: 802565 1 Capsule(s) PO daily No Start Date Active gabapentin 300 mg capsule RxNorm: 647037 6 Capsule(s) PO daily No Start Date Active cyclobenzaprine 5 mg tablet RxNorm: 779946 1 Tablet(s) PO as needed No Start Date Active diclofenac 1 % topical gel RxNorm: 199159 1 Gram(s) TOP as needed No Start Date Active meloxicam 15 mg tablet RxNorm: 614835 1 Tablet(s) PO daily No Start Date 07/30/2017 Inactive potassium chloride ER 10 mEq tablet,extended release RxNorm: 937435 1 Tablet(s) PO daily No Start Date 05/06/2017 Inactive hydrocodone 5 mg-acetaminophen 325 mg tablet RxNorm: 188180 1 Tablet(s) PO daily No Start Date 06/08/2017 Inactive furosemide 40 mg tablet RxNorm: 710320 1 Tablet(s) PO daily No Start Date 07/29/2017 Inactive atorvastatin 40 mg tablet RxNorm: 800010 1 Tablet(s) PO QHS No Start Date 07/29/2017 Inactive clopidogrel 75 mg tablet RxNorm: 031279 1 Tablet(s) PO daily No Start Date 03/16/2018 Inactive Medication Administered Medication Codes Instructions Start Date Status testosterone cypionate 200 mg/mL intramuscular oil RxNorm: 5913210 Milliliter 03/06/2018 No longer Active testosterone cypionate 200 mg/mL intramuscular oil RxNorm: 1192074 Milliliter 02/19/2018 No longer Active testosterone cypionate 200 mg/mL intramuscular oil RxNorm: 396034 Milliliter 02/03/2018 No longer Active Kenalog 40 mg/mL suspension for injection RxNorm: 4751319 Milliliter 01/07/2018 No longer Active ceftriaxone 500 mg solution for injection RxNorm: 9760339 01/07/2018 No longer Active testosterone cypionate 200 mg/mL intramuscular oil RxNorm: 755309 /2Milliliter 01/05/2018 No longer Active testosterone cypionate 200 mg/mL intramuscular oil RxNorm: 578576 Milliliter 12/15/2017 No longer Active testosterone cypionate 200 mg/mL intramuscular oil RxNorm: 412518 /2Milliliter 12/04/2017 No longer Active testosterone cypionate 200 mg/mL intramuscular oil RxNorm: 000433 1/2Milliliter 11/17/2017 No longer Active testosterone cypionate 200 mg/mL intramuscular oil RxNorm: 849610 Milliliter 10/22/2017 No longer Active Kenalog 40 mg/mL suspension for injection RxNorm: 1484514 Milliliter 10/06/2017 No longer Active testosterone cypionate 200 mg/mL intramuscular oil RxNorm: 230775 Milliliter 10/06/2017 No longer Active testosterone cypionate 200 mg/mL intramuscular oil RxNorm: 487895 Milliliter 09/23/2017 No longer Active testosterone cypionate 200 mg/mL intramuscular oil RxNorm: 520828 Milliliter 08/28/2017 No longer Active testosterone cypionate 200 mg/mL intramuscular oil RxNorm: 197070 /2Milliliter 08/12/2017 No longer Active testosterone cypionate 200 mg/mL intramuscular oil RxNorm: 025801 /2Milliliter 07/28/2017 No longer Active testosterone cypionate 200 mg/mL intramuscular oil RxNorm: 231543 /2Milliliter 07/14/2017 No longer Active testosterone cypionate 200 mg/mL intramuscular oil RxNorm: 736205 /2Milliliter 06/26/2017 No longer Active testosterone cypionate 200 mg/mL intramuscular oil RxNorm: 194737 2Milliliter 06/09/2017 No longer Active testosterone cypionate 200 mg/mL intramuscular oil RxNorm: 864022 Milliliter 05/27/2017 No longer Active testosterone cypionate 200 mg/mL intramuscular oil RxNorm: 807185 Milliliter 05/13/2017 No longer Active testosterone cypionate 200 mg/mL intramuscular oil RxNorm: 876909 /2Milliliter 04/29/2017 No longer Active Immunizations Vaccine [...] ICD-9: 380.4 03/17/2017 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 [...] Observation Code Item Item Code Result Date Cbc With Differential Ord2 WBC 10.28 K/ul [...] 25.6 pg 03/02/2018 Cbc With Differential Ord2 Finney% 7.9 % 03/02/2018 Cbc With Differential Ord2 [...] 1.41 K/ul 03/02/2018 Cbc With Differential Ord2 [place] ABS# 0.8 K/ul 03/02/2018 Cbc With Differential Ord2 Eos ABS# 0.2 K/ul 03/02/2018 Cbc With Differential Ord2 Baso ABS# 0.1 K/ul 03/02/2018 Testosterone Igj264 Testo 375.1 ng/dL 03/02/2018 Influenza A+B Ftt193 Influ A+B Negative 01/08/2018 C A/B FLU [id number] Influenza A Scr TNP:Improper Specimen 01/07 C A/B FLU [id number] Influenza B Scr TNP:Improper Specimen 01/07 C A/B FLU 2189851 IC OK? TNP:Improper Specimen 01/07/2018 C A/B FLU [id number] Influenza Intrp B AG: PRID:PT:NOSE:NOM:IF TNP:Improper Specimen 01/07/2018 Cbc With Differential Ord2 WBC 5.27 K/ul [...] 28.5 pg 08/06/2017 Cbc With Differential Ord2 Fin[place]% 11.2 % 08/06/2017 Cbc With Differential Ord2 [...] 1.33 K/ul 08/06/2017 Cbc With Differential Ord2 [place] ABS# 0.6 K/ul 08/06/2017 Cbc With Differential Ord2 Eos ABS# 0.3 K/ul 08/06/2017 Cbc With Differential Ord2 Baso ABS# 0.1 K/ul 08/06/2017 Testosterone Zkl285 Testo 474.5 ng/dL 08/06/2017 Hepatic Pkt303 ALBUMIN 3.7 g/dL 08/06/2017 Hepatic Frc533 TPRO 5.9 g/dL 08/06/2017 Hepatic Yla102 GLOB 2.2 g/dL 08/06/2017 Hepatic Qnt562 A/G Ratio 1.7 Ratio 08/06/2017 Hepatic Apu790 ALK PHOS 46 U/L 08/06/2017 Hepatic Wph623 ALT(SGPT) 9 U/L 08/06/2017 Hepatic Rel567 AST(SGOT) 13 U/L 08/06/2017 Hepatic Syt750 BILI T 0.6 mg/dL 08/06/2017 Hepatic Iye219 BILI D 0.2 mg/dL 08/06/2017 Hepatic Flu197 BILI I 0.4 mg/dL 08/06/2017 Cbc With Differential Ord2 WBC 5.23 K/ul 06/02/2017 Cbc With Differential Ord2 RBC 5.29 M/ul 06/02/2017 Cbc With Differential Ord2 HGB 15.7 g/dl 06/02/2017 Cbc With Differential Ord2 HCT 49.2 % 06/02/2017 Cbc With Differential Ord2 Neut% 56.0 % 06/02/2017 Cbc With Differential Ord2 Lymph% 29.1 % 06/02/2017 Cbc With Differential Ord2 MCV 93.0 fl 06/02/2017 Cbc With Differential Ord2 [place]% 10.5 % 06/02/2017 Cbc With Differential Ord2 [...] 1.52 K/ul 06/02/2017 Cbc With Differential Ord2 [place] ABS# 0.6 K/ul 06/02/2017 Cbc With Differential Ord2 Eos ABS# 0.2 K/ul 06/02/2017 Cbc With Differential Ord2 Baso ABS# 0.1 K/ul 06/02/2017 Vitamin D 25 Oh Xaf1671 VITAMIN D, 25 HYDROXY 40.03 ng/mL Comp Metabolic Oxs674 NA 140 mEq/L 06/02/2017 Comp Metabolic Grn895 K 3.8 mEq/L 06/02/2017 Comp Metabolic Bup680 CL 102 mEq/L 06/02/2017 Comp Metabolic Eux551 CO2 30.0 mEq/L 06/02/2017 Comp Metabolic Xmm410 ANION GAP 12 06/02/2017 Comp Metabolic Xfn223 GLUCOSE 100 mg/dL 06/02/2017 Comp Metabolic Tzx940 Creat 1.1 mg/dL 06/02/2017 Comp Metabolic Itr998 eGFR 69 ml/min/1.73m2 06/02/2017 Comp Metabolic Xoz752 BUN 15 mg/dL 06/02/2017 Comp Metabolic Zsx383 B/C Ratio 13.4 Ratio 06/02/2017 Comp Metabolic Jih550 CALCIUM 8.6 mg/dL 06/02/2017 Comp Metabolic Jyo292 ALK PHOS 63 U/L 06/02/2017 Comp Metabolic Pkq139 AST(SGOT) 17 U/L 06/02/2017 Comp Metabolic Cvf174 ALT(SGPT) 12 U/L 06/02/2017 Comp Metabolic Ngf101 BILI T 0.5 mg/dL 06/02/2017 Comp Metabolic Rvm891 ALBUMIN 3.9 g/dL 06/02/2017 Comp Metabolic Hpd778 TPRO 6.1 g/dL 06/02/2017 Comp Metabolic Wkj666 GLOB 2.2 g/dL 06/02/2017 Comp Metabolic Zbw807 A/G Ratio 1.8 Ratio 06/02/2017 Comp Metabolic Oys847 Osmo 280 mOsmo 06/02/2017 Tsh Ord6 TSH (3rd IS) 3.28 uIU/mL 04/29/2017 Lipid Ord30 CHOL 159 mg/dL 04/29/2017 Lipid Ord30 HDL 46.0 mg/dl 04/29/2017 Lipid Ord30 TRIG 134 mg/dL 04/29/2017 Lipid Ord30 LDL 86 mg/dL 04/29/2017 Lipid Ord30 C/HDL 3.5 Ratio 04/29/2017 Vitamin D 25 Oh Add0362 VITAMIN D, 25 HYDROXY 29.25 ng/mL Testosterone Sga514 Testo 198.4 ng/dL 04/29/2017 Review of Systems System Result Effective [...] Procedure Codes Date THER/PROPH/DIAG INJ SC/IM CPT-4: 79451 03/06/2018 THER/PROPH/DIAG INJ SC/IM CPT-4: 03041 02/19/2018 THER/PROPH/DIAG INJ SC/IM CPT-4: 57545 02/03/2018 THER/PROPH/DIAG INJ SC/IM CPT-4: 15777 01/07/2018 TRIAMCINOLONE ACET INJ NOS CPT-4: J3301 01/07/2018 ROCEPHIN, PER 250 MG CPT-4: J0696 01/07/2018 THER/PROPH/DIAG INJ SC/IM CPT-4: 82754 01/05/2018 THER/PROPH/DIAG INJ SC/IM CPT-4: 45216 12/15/2017 THER/PROPH/DIAG INJ SC/IM CPT-4: 66740 12/04/2017 PPPS, SUBSEQ VISIT CPT -4: G0439 11/27/2017 ADMIN INFLUENZA VIRUS VAC CPT-4: G0008 11/17/2017 FLU VAC NO PRSV 4 FATOU 3 YRS+ CPT-4: 73680 11/17/2017 THER/PROPH/DIAG INJ SC/IM CPT-4: 03615 11/17/2017 THER/PROPH/DIAG INJ SC/IM CPT-4: 34258 10/22/2017 THER/PROPH/DIAG INJ SC/IM CPT-4: 82123 10/06/2017 TRIAMCINOLONE ACET INJ NOS CPT-4: J3301 10/06/2017 THER/PROPH/DIAG INJ SC/IM CPT-4: 61178 09/23/2017 THER/PROPH/DIAG INJ SC/IM CPT-4: 00118 08/28/2017 THER/PROPH/DIAG INJ SC/IM CPT-4: 03991 08/12/2017 THER/PROPH/DIAG INJ SC/IM CPT-4: 53035 07/28/2017 THER/PROPH/DIAG INJ SC/IM CPT-4: 51862 07/14/2017 THER/PROPH/DIAG INJ SC/IM CPT-4: 30350 06/26/2017 THER/PROPH/DIAG INJ SC/IM CPT-4: 49924 06/09/2017 THER/PROPH/DIAG INJ SC/IM CPT-4: 12464 05/27/2017 THER/PROPH/DIAG INJ SC/IM CPT-4: 93852 05/13/2017 THER/PROPH/DIAG INJ SC/IM CPT-4: 44795 04/29/2017 Vital Signs Date Vital 03/10/2018 Blood Pressure 1: 120/70 Code : 8480-6 BMI: 29.0 Code : 57199-3 Heart Rate 1 : 82 bpm Height: 5'10" SpO2: 95% Weight: 202 lbs 01/07/2018 Blood Pressure 1: 126/66 Code : 8480-6 BMI: 30.1 Code : 53069-1 Heart Rate 1 : 75 bpm Height: 5'10" SpO2: 97% Temperature: 36.5 (C) / 97.7 (F) Weight: 210 lbs 12/22/2017 Blood Pressure 1: 124/70 Code : 8480-6 BMI: 29.7 Code : 75925-4 Heart Rate 1 : 84 bpm Height: 5'10" SpO2: 94% Weight: 207 lbs 12/15/2017 Blood Pressure 1: 122/82 Code : 8480-6 BMI: 30.0 Code : 37754-1 Heart Rate 1 : 82 bpm Height: 5'10" SpO2: 93% Weight: 209 lbs 11/27/2017 Blood Pressure 1: 132/68 Code : 8480-6 BMI: 29.3 Code : 75850-4 Heart Rate 1 : 71 bpm Height: 5'10" SpO2: 97% Waist Measure (cm): 97 cm Weight: 204 lbs 11/17/2017 Blood Pressure 1: 130/80 Code : 8480-6 BMI: 29.3 Code : 15554-2 Heart Rate 1 : 73 bpm Height: 5'10" SpO2: 99% Weight: 204 lbs 10/06/2017 Blood Pressure 1: 124/60 Code : 8480-6 BMI: 28.8 Code : 55843-3 Heart Rate 1 : 70 bpm Height: 5'10" SpO2: 98% Weight: 201 lbs 07/24/2017 Blood Pressure 1: 118/70 Code : 8480-6 BMI: 29.3 Code : 23982-6 Heart Rate 1 : 82 bpm Height: 5'10" SpO2: 96% Weight: 204 lbs 07/14/2017 Blood Pressure 1: 118/72 Code : 8480-6 BMI: 29.1 Code : 87864-6 Heart Rate 1 : 83 bpm Height: 5'10" SpO2: 98% Weight: 203 lbs 06/09/2017 Blood Pressure 1: 120/74 Code : 8480-6 BMI: 29.3 Code : 63537-3 Heart Rate 1 : 91 bpm Height: 5'10" SpO2: 99% Weight: 204 lbs 04/28/2017 Blood Pressure 1: 118/68 Code : 8480-6 BMI: 28.8 Code : 41757-4 Heart Rate 1 : 74 bpm Height: 5'10" SpO2: 96% Weight: 201 lbs 03/14/2017 Blood Pressure 1: 114/74 Code : 8480-6 BMI: 28.6 Code : 81721-1 Heart Rate 1 : 77 bpm Height: [...] data Encounters Encounter Performer Location Codes Date ([id number]) 20957 EST. 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 PATIENT, LEVEL III Diagnosis: Other malaise[ICD10: R53.81] Diagnosis: Acute laryngopharyngitis[ICD10: J06.0] Diagnosis: Other allergic rhinitis[ICD10: J30.89] Sapphire Hollis MD, [facility] CPT-4: 25924 01/07/2018 [id number] EST. PATIENT, LEVEL III Diagnosis: Spinal stenosis, lumbosacral region[ICD10: M48.07] Diagnosis: Spinal stenosis, cervical region[ICD10: M48.02] Elise Hollis MD, [facility] CPT-4: 98935 12/22/2017 ([id number]) 60735 EST. 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 PATIENT, LEVEL III Diagnosis: Mixed hyperlipidemia[ICD10: E78.2] Diagnosis: Other insomnia[ICD10: G47.09] Leora Hollis MD, [facility] CPT- 4: 77889 11/17/2017 [id number] EST. PATIENT, LEVEL III Diagnosis: Acute laryngopharyngitis[ICD10: J06.0] Diagnosis: Other allergic rhinitis[ICD10: J30.89] Sapphire Hollis MD, [facility] CPT-4: 44782 10/06/2017 42910 EST. PATIENT, LEVEL III Diagnosis: Pain in left shoulder[ICD10: M25.512] Sapphire Hollis MD, [facility] CPT-4: 68866 07/24/2017 ([id number]) 27583 EST. 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] Leora Hollis MD, [facility] CPT-4: 15826 04/28/2017 ([id number]) Miscellaneous no charge Diagnosis: Impacted cerumen, bilateral[ICD10: H61.23] [facility] CPT-4: 88127 03/17/2017 ([id number]) OFFICE VISIT, NEW - LEVEL 4 Diagnosis: Mixed hyperlipidemia[ICD10: E78.2] Diagnosis: Chronic pain syndrome[ICD10: G89.4] Diagnosis: Presbycusis, bilateral[ICD10: H91.13] Diagnosis: Impacted cerumen, bilateral[ICD10: H61.23] Diagnosis: Atherosclerotic heart disease of [place] coronary artery without angina pectoris[ICD10: I25.10] Diagnosis: Personal history of other diseases of the circulatory system[ICD10: Z86.79] [facility] CPT-4: 93074 2017 Plan of Care Planned Activity Notes Codes Status Date Visit Plan: Spinal stenosis with back pain - refilled hydrocodone- keep appt with Supervisor [facility] Department for treatment of stenosis of arteries, then pt most-likely to have surgical intervention of spine. PAD - pt will need surgical intervention with stenting. Testicular hypofunction - continue with testosterone. 03/10/2018 [phone] [facility] (15 min) Moderate 03/10/2018 Patient Education: Patient Medication Summary Completed 03/10/2018 Patient Education: Back Pain Completed 03/10/2018 Patient Education: Cholesterol Management Completed 03/10/2018 App[facility]ment: [facility] [phone] [facility] [place] (15 min) Moderate 03/09/2018 Appointment: [...] spray. 01/07/2018 Appointment: Sapphire Oneil WPtel: [facility] [facility] [place] [facility] (15 min) Moderate 01/07/2018 Patient Education: Patient [...] plan. 12/22/2017 Appointment: Elise Castillo WPtel: [facility] [place] [phone] [place] (15 min) Moderate 12/22/2017 Patient Education: Patient Medication Summary Completed 12/22/2017 Visit Plan: Neck and low back pain -will schedule MRI lumbar and cervical spine for further evaluation and proceed as indicated- patient verbalized understanding of plan. 12/15/2017 Appointment: Elise Castillo WPtel: [facility] [place] [facility] [place] [phone] (15 min) Moderate 12/15/2017 Patient Education: Patient Medication Summary Completed 12/15/2017 Patient Education: Back Pain Completed 12/15/2017 Care Plan: MRI LUMBAR SPINE W/O DYE LOINC : 86360-8 Pending 12/15/2017 Care Plan: MRI NECK SPINE W/O DYE LOINC : 41574-6 Pending 12/15/2017 Appointment: Injection 12/04/2017 Patient Education: [...] surrogate. 11/27/2017 Appointment: Sapphire Oneil [phone] [facility] [facility] - Annual Wellness Visit [...] to sleep 11/17/2017 Appointment: Leora Hollis WPtel: [facility] [place] [facility] [place] [facility] (15 min) Moderate 11/17/2017 Patient Education: [...] allergy spray. 10/06/2017 Appointment: Leora Hollis WPtel: [facility] [place] [facility] [place] [facility] (15 min) Moderate 10/06/2017 Appointment: Sapphire Oneil WPtel: [facility] [place] [facility] [place] [facility] (15 min) Moderate 10/06/2017 Patient Education: Patient [...] treatment plan. 07/24/2017 Appointment: Sapphire Oneil WPtel: [facility] [place] [place] [facility] [place] (30 min) Complex 07/24/2017 Patient Education: [...] medications. 07/14/2017 Appointment: [facility] [phone] [facility] (15 min) Moderate 07/14/2017 Patient Education: Patient Medication Summary Completed 07/14/2017 Appointment: [facility] [phone] [facility] [place] (15 min) Moderate 07/10/2017 Appointment: [...] night 06/09/2017 Appointment: Leora Hollis WPtel: [id number] [id number] [place] ([facility] Complex 06/09/2017 Patient [...] 15 04/28/2017 Appointment: Leora Hollis WPtel: [id number] [facility] (30 min) Complex 04/28/2017 Patient [...] wax removal 03/14/2017 Appointment: Leora Hollis WPtel: [phone] [id number] [place] New Patient 03/14/2017 Patient Education: Patient Medication Summary Completed 03/14/2017 Instructions Comment . URI - Pt advised to increase [...] for health care surrogate. . Hypogonadism - pt has hx of [...] to assure normal liver response to medications. for insomnia - I recommend Extended Release [...] bedtime if having trouble getting to sleep MRI cervical and lumbar spine testosterone injection . Neck and low back pain -will schedule MRI lumbar and cervical spine for further evaluation and proceed as indicated-patient verbalized understanding of plan. REFER FOR PHYSICAL THERAPY AT [facility] -HE HAS A PT HE HAS SEEN THERE BEFORE KEEP APPT WITH DR STEWARD . Cervical and lumbar stenosis -refer for PT to evaluate and treat -follow up with DR Steward as scheduled -refill hydrocodone for prn use only -discussed with patient that he is to use it for breakthrough pain only -patient verbalized understanding of plan. . Hypogonadism - testosterone shot to be given every two weeks as previously discussed - pt to have labs in 3 months Hypersomnia with polycythemia - I have recommended pt to start on oxygen - Pt wants to use [employer] for oxygen concentrator with humidification at night . Spinal stenosis with back pain - refilled hydrocodone- keep appt with Super[facility] for treatment of stenosis of arteries, then [...] any change in the current treatment plan. . Hyperlipidemia - pt has been counseled [...]
--- OUTSIDE RECORDS SUMMARY | 2018-06-12 09:27 | XMS REPORT | CCD ---
Author Author [facility] Organization [facility] Address [address] [place] [address] Phone Care Team Providers Care China Painter Name Role Phone PP Unavailable CCM Unavailable Summary Purpose Interface Exchange Insurance Providers Payer name Policy type / Coverage type Covered republican ID Effective Begin Date Effective End Date WPS Medicare Part B Medicare Part B [id number] 2017 Unknown [facility] Medicare Part B [id number] 2017 Unknown Family history Father Diagnosis Age At Onset Heart Attack Unknown Social History Social History Element Codes Description Effective Dates Marital status Unknown 03/14/2017 Number of children Unknown 2 03/14/[address]: 3192686 Former smoker Quit 11/03/00; smoke 1/2 pack/day x15 years 03/14/[address]: 404756607 Never drinks alcohol 03/14/2017 Allergies, Adverse Reactions, [...] Active 03/14/2017 Unknown Atherosclerotic heart disease of [place] coronary artery without angina pectoris ICD-9: [...] H61.23 03/14/2017 Active 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 ICD-10: I25.10 03/14/2017 Active Chronic pain syndrome ICD-9: 338.4 ICD-10: G89.4 03/14/2017 Active Personal history of other diseases of the circulatory system ICD-9: V12.59 ICD-10: Z86.79 03/14/2017 Active Presbycusis, 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 03/14/2017 Active Medications Medication Codes Instructions Start Date Stop Date Status Fill Instructions hydrocodone 5 mg-acetaminophen 325 mg tablet RxNorm: 145118 1-2 Tablet(s) PO Q6 PRN 03/20/2018 04/18/2018 Active clopidogrel 75 mg tablet RxNorm: 853385 1 Tablet(s) PO daily 04/15/2018 Active furosemide 40 mg tablet RxNorm: 445551 TAKE ONE TABLET BY MOUTH DAILY 03/17/2018 09/12/2018 Active testosterone cypionate 200 mg/mL intramuscular oil RxNorm: 1707838 Milliliter(s) IM 03/06/2018 03/06/2018 Inactive testosterone cypionate 200 mg/mL intramuscular oil RxNorm: 1720233 Milliliter(s) IM 02/19/2018 02/19/2018 Inactive hydrocodone 5 mg-acetaminophen 325 mg tablet RxNorm: 825579 1-2 Tablet(s) PO Q6 PRN 02/18/2018 03/09/2018 Inactive zolpidem 5 mg tablet RxNorm: 694769 TAKE ONE TABLET BY MOUTH EVERY NIGHT AT BEDTIME NEEDED 02/13/2018 03/14/2018 Inactive meloxicam 15 mg tablet RxNorm: 857850 TAKE ONE TABLET BY MOUTH DAILY 02/13/2018 08/11/2018 Active testosterone cypionate 200 mg/mL intramuscular kit RxNorm: 733736 1/2 Milliliter(s ) IM [id number] 02/03/2018 08/01/2018 Active testosterone cypionate 200 mg/mL intramuscular oil RxNorm: 828094 Milliliter(s) IM 02/03/2018 02/03/2018 Inactive prednisone 20 mg tablet RxNorm: 166033 2 Tablet(s) PO QAM 01/0901/13/2018 Inactive cefdinir 300 mg capsule RxNorm: 680674 1 Capsule(s) PO BID 01/18/2018 Inactive prednisone 20 mg tablet RxNorm: 270754 2 Tablet(s) PO QAM 01/0901/08/2018 Inactive cefdinir 300 mg capsule RxNorm: 837810 1 Capsule(s) PO BID 01/08/2018 Inactive Zithromax Z-Timothy 250 mg tablet RxNorm: 039807 1 Tablet(s) PO UD 01/07/2018 No Stop Date Active Kenalog 40 mg/mL suspension for injection RxNorm: 9021859 Milliliter(s) Inj 01/07/2018 01/07/2018 Inactive ceftriaxone 500 mg solution for injection RxNorm: 7282549 Inj 01/07/2018 01/07/2018 Inactive testosterone cypionate 200 mg/mL intramuscular oil RxNorm: 282268 1/2 Milliliter(s ) IM 01/05/2018 01/05/2018 Inactive hydrocodone 5 mg-acetaminophen 325 mg tablet RxNorm: 100416 1-2 Tablet(s) PO Q6 PRN 12/22/2017 02/17/2018 Inactive zolpidem 5 mg tablet RxNorm: 119558 1 Tablet(s) PO 30 min before QHS 12/15/2017 02/12/2018 Inactive testosterone cypionate 200 mg/mL intramuscular oil RxNorm: 294594 Milliliter(s) IM 12/15/2017 12/15/2017 Inactive testosterone cypionate 200 mg/mL intramuscular oil RxNorm: 545141 1/2 Milliliter(s ) IM 12/04/2017 12/04/2017 Inactive testosterone cypionate 200 mg/mL intramuscular oil RxNorm: 019857 1/2 Milliliter(s ) IM 11/17/2017 11/17/2017 Inactive potassium chloride ER 10 mEq capsule,extended release RxNorm: 561286 TAKE ONE CAPSULE BY MOUTH DAILY 11/11/20172018 Active testosterone cypionate 200 mg/mL intramuscular oil RxNorm: 224655 Milliliter(s) IM 10/22/2017 10/22/2017 Inactive zolpidem 5 mg tablet RxNorm: 577994 1 Tablet(s) PO 30 min before QHS 10/15/2017 10/14/2017 Inactive zolpidem 5 mg tablet RxNorm: 248371 1 Tablet(s) PO 30 min before QHS 10/15/2017 12/13/2017 Inactive Zithromax Z-Timothy 250 mg tablet RxNorm: 995106 1 Tablet(s) PO UD 10/07/2017 11/16/2017 Inactive testosterone cypionate 200 mg/mL intramuscular oil RxNorm: 070869 Milliliter(s) IM 10/06/2017 10/06/2017 Inactive Kenalog 40 mg/mL suspension for injection RxNorm: 8710755 Milliliter(s) Inj 10/06/2017 10/06/2017 Inactive Zithromax Z-Timothy 250 mg tablet RxNorm: 008621 1 Tablet(s) PO UD 10/06/2017 10/06/2017 Inactive testosterone cypionate 200 mg/mL intramuscular oil RxNorm: 391719 Milliliter(s) IM 09/23/2017 09/23/2017 Inactive testosterone cypionate 200 mg/mL intramuscular kit RxNorm: 876202 1/2 Milliliter(s ) IM [id number] 08/28/2017 02/02/2018 Inactive meloxicam 15 mg tablet RxNorm: 147707 TAKE ONE TABLET BY MOUTH DAILY 08/28/2017 02/12/2018 Inactive testosterone cypionate 200 mg/mL intramuscular oil RxNorm: 305760 Milliliter(s) IM 08/28/2017 08/28/2017 Inactive testosterone cypionate 200 mg/mL intramuscular oil RxNorm: 539306 1/2 Milliliter(s ) IM 08/12/2017 08/12/2017 Inactive meloxicam 15 mg tablet RxNorm: 658567 1 Tablet(s) PO daily 08/201708/27/2017 Inactive atorvastatin 40 mg tablet RxNorm: 144357 TAKE ONE TABLET BY MOUTH DAILY 07/30/2017 02/24/2018 Inactive furosemide 40 mg tablet RxNorm: 822957 TAKE ONE TABLET BY MOUTH DAILY 07/30/2017 02/24/2018 Inactive testosterone cypionate 200 mg/mL intramuscular oil RxNorm: 619491 1/2 Milliliter(s ) IM 07/28/2017 07/28/2017 Inactive testosterone cypionate 200 mg/mL intramuscular oil RxNorm: 938871 1/2 Milliliter(s ) IM 07/14/2017 07/14/2017 Inactive testosterone cypionate 200 mg/mL intramuscular oil RxNorm: 408072 1/2 Milliliter(s ) IM 06/26/2017 06/26/2017 Inactive hydrocodone 5 mg-acetaminophen 325 mg tablet RxNorm: 329633 1 Tablet(s) PO QHS and 1 tab PO daily PRN pain 06/09/2017 Inactive hydrocodone 5 mg-acetaminophen 325 mg tablet RxNorm: 572488 1 Tablet(s) PO daily 06/09/2017 06/18/2017 Inactive testosterone cypionate 200 mg/mL intramuscular oil RxNorm: 916430 1/2 Milliliter(s ) IM 06/09/2017 06/09/2017 Inactive testosterone cypionate 200 mg/mL intramuscular oil RxNorm: 014127 Milliliter(s) IM 05/27/2017 05/27/2017 Inactive testosterone cypionate 200 mg/mL intramuscular oil RxNorm: 245520 Milliliter(s) IM 05/13/2017 05/13/2017 Inactive potassium chloride ER 10 mEq capsule,extended release RxNorm: 544672 1 Capsule(s) PO daily 05/07/2017 11/02/2017 Inactive Vitamin D2 50,000 unit capsule RxNorm: 022694 1 Capsule(s) PO QW 05/06/2017 05/05/2017 Inactive take with OTC vitamin d 2,000 units QD testosterone cypionate 200 mg/mL intramuscular kit RxNorm: 708027 1/2 kit IM 2 x month 05/06/2017 08/27/2017 Inactive Vitamin D2 50,000 unit capsule RxNorm: 539364 1 Capsule(s) PO QW 05/06/2017 08/03/2017 Inactive take with OTC vitamin d 2,000 units QD testosterone cypionate 200 mg/mL intramuscular oil RxNorm: 396615 1/2 Milliliter(s ) IM 04/29/2017 04/29/2017 Inactive fluorouracil 5 % topical cream RxNorm: 804772 1 Application TOP BID 04/28/2017 05/07/2017 Inactive testosterone cypionate 200 mg/mL intramuscular kit RxNorm: 882389 1/2 IM 2 x month 04/28/2017 05/05/2017 Inactive Pamelor 10 mg capsule RxNorm: 077524 1 Capsule(s) PO daily No Start Date Active gabapentin 300 mg capsule RxNorm: 367905 6 Capsule(s) PO daily No Start Date Active cyclobenzaprine 5 mg tablet RxNorm: 651834 1 Tablet(s) PO as needed No Start Date Active diclofenac 1 % topical gel RxNorm: 194362 1 Gram(s) TOP as needed No Start Date Active meloxicam 15 mg tablet RxNorm: 360731 1 Tablet(s) PO daily No Start Date 07/30/2017 Inactive potassium chloride ER 10 mEq tablet,extended release RxNorm: 168587 1 Tablet(s) PO daily No Start Date 05/06/2017 Inactive hydrocodone 5 mg-acetaminophen 325 mg tablet RxNorm: 543435 1 Tablet(s) PO daily No Start Date 06/08/2017 Inactive furosemide 40 mg tablet RxNorm: 230781 1 Tablet(s) PO daily No Start Date 07/29/2017 Inactive atorvastatin 40 mg tablet RxNorm: 102137 1 Tablet(s) PO QHS No Start Date 07/29/2017 Inactive clopidogrel 75 mg tablet RxNorm: 210756 1 Tablet(s) PO daily No Start Date 03/16/2018 Inactive Medication Administered Medication Codes Instructions Start Date Status testosterone cypionate 200 mg/mL intramuscular oil RxNorm: 3495921 Milliliter 03/06/2018 No longer Active testosterone cypionate 200 mg/mL intramuscular oil RxNorm: 6391133 Milliliter 02/19/2018 No longer Active testosterone cypionate 200 mg/mL intramuscular oil RxNorm: 627842 Milliliter 02/03/2018 No longer Active Kenalog 40 mg/mL suspension for injection RxNorm: 1916884 Milliliter 01/07/2018 No longer Active ceftriaxone 500 mg solution for injection RxNorm: 1041419 01/07/2018 No longer Active testosterone cypionate 200 mg/mL intramuscular oil RxNorm: 463092 /2Milliliter 01/05/2018 No longer Active testosterone cypionate 200 mg/mL intramuscular oil RxNorm: 696418 Milliliter 12/15/2017 No longer Active testosterone cypionate 200 mg/mL intramuscular oil RxNorm: 754399 /2Milliliter 12/04/2017 No longer Active testosterone cypionate 200 mg/mL intramuscular oil RxNorm: 066701 1/2Milliliter 11/17/2017 No longer Active testosterone cypionate 200 mg/mL intramuscular oil RxNorm: 782758 Milliliter 10/22/2017 No longer Active Kenalog 40 mg/mL suspension for injection RxNorm: 4751025 Milliliter 10/06/2017 No longer Active testosterone cypionate 200 mg/mL intramuscular oil RxNorm: 620109 Milliliter 10/06/2017 No longer Active testosterone cypionate 200 mg/mL intramuscular oil RxNorm: 643710 Milliliter 09/23/2017 No longer Active testosterone cypionate 200 mg/mL intramuscular oil RxNorm: 492565 Milliliter 08/28/2017 No longer Active testosterone cypionate 200 mg/mL intramuscular oil RxNorm: 762438 /2Milliliter 08/12/2017 No longer Active testosterone cypionate 200 mg/mL intramuscular oil RxNorm: 956490 /2Milliliter 07/28/2017 No longer Active testosterone cypionate 200 mg/mL intramuscular oil RxNorm: 811309 /2Milliliter 07/14/2017 No longer Active testosterone cypionate 200 mg/mL intramuscular oil RxNorm: 905207 /2Milliliter 06/26/2017 No longer Active testosterone cypionate 200 mg/mL intramuscular oil RxNorm: 090068 2Milliliter 06/09/2017 No longer Active testosterone cypionate 200 mg/mL intramuscular oil RxNorm: 031771 Milliliter 05/27/2017 No longer Active testosterone cypionate 200 mg/mL intramuscular oil RxNorm: 922331 Milliliter 05/13/2017 No longer Active testosterone cypionate 200 mg/mL intramuscular oil RxNorm: 394335 /2Milliliter 04/29/2017 No longer Active Immunizations Vaccine [...] ICD-9: 380.4 03/17/2017 Atherosclerotic heart disease of [place] coronary artery without angina pectoris ICD-10: [...] Code Item Item Code Result Date Testosterone Qvp188 Testo 375.1 ng/dL 03/02/2018 Cbc With Differential [...] 25.6 pg 03/02/2018 Cbc With Differential Ord2 [place]% 7.9 % 03/02/2018 Cbc With Differential Ord2 [...] 1.41 K/ul 03/02/2018 Cbc With Differential Ord2 [place] ABS# 0.8 K/ul 03/02/2018 Cbc With Differential Ord2 Eos ABS# 0.2 K/ul 03/02/2018 Cbc With Differential Ord2 Baso ABS# 0.1 K/ul 03/02/2018 Influenza A+B Jrd686 Influ A+B Negative 01/08/2018 C A/B FLU [id number] Influenza A Scr TNP:Improper Specimen 01/07 C A/B FLU [id number] Influenza B Scr TNP:Improper Specimen 01/07 C A/B FLU [id number] Influenza Intrp B AG: PRID:PT:NOSE:NOM:IF TNP:Improper Specimen 01/07/2018 C A/B FLU [id number] IC OK? TNP:Improper Specimen 01/07/2018 Hepatic Rlz955 ALBUMIN 3.7 g/dL 08/06/2017 Hepatic Lfa454 TPRO 5.9 g/dL 08/06/2017 Hepatic Xyh904 GLOB 2.2 g/dL 08/06/2017 Hepatic Wif391 A/G Ratio 1.7 Ratio 08/06/2017 Hepatic Lrc260 ALK PHOS 46 U/L 08/06/2017 Hepatic Qdm677 ALT(SGPT) 9 U/L 08/06/2017 Hepatic Gwe361 AST(SGOT) 13 U/L 08/06/2017 Hepatic Yoh013 BILI T 0.6 mg/dL 08/06/2017 Hepatic Atu830 BILI D 0.2 mg/dL 08/06/2017 Hepatic Hdd526 BILI I 0.4 mg/dL 08/06/2017 Testosterone Den245 Testo 474.5 ng/dL 08/06/2017 Cbc With Differential Ord2 WBC 5.27 K/ul 08/06/2017 Cbc With Differential Ord2 RBC 5.51 M/ul 08/06/2017 Cbc With Differential Ord2 HGB 15.7 g/dl 08/06/2017 Cbc With Differential Ord2 Neut% 57.6 % 08/06/2017 Cbc With Differential Ord2 HCT 48.6 % 08/06/2017 Cbc With Differential Ord2 MCV 88.2 fl 08/06/2017 Cbc With Differential Ord2 Lymph% 25.2 % 08/06/2017 Cbc With Differential Ord2 MCH 28.5 pg 08/06/2017 Cbc With Differential Ord2 [place]% 11.2 % 08/06/2017 Cbc With Differential Ord2 [...] 1.33 K/ul 08/06/2017 Cbc With Differential Ord2 [place] ABS# 0.6 K/ul 08/06/2017 Cbc With Differential Ord2 Eos ABS# 0.3 K/ul 08/06/2017 Cbc With Differential Ord2 Baso ABS# 0.1 K/ul 08/06/2017 Comp Metabolic Cwu247 NA 140 mEq/L 06/02/2017 Comp Metabolic Ado614 K 3.8 mEq/L 06/02/2017 Comp Metabolic Npa685 CL 102 mEq/L 06/02/2017 Comp Metabolic Ntf206 CO2 30.0 mEq/L 06/02/2017 Comp Metabolic Esj690 ANION GAP 12 06/02/2017 Comp Metabolic Haa588 GLUCOSE 100 mg/dL 06/02/2017 Comp Metabolic Zjj482 Creat 1.1 mg/dL 06/02/2017 Comp Metabolic Upe027 eGFR 69 ml/min/1.73m2 06/02/2017 Comp Metabolic Tfg781 BUN 15 mg/dL 06/02/2017 Comp Metabolic Bnf773 B/C Ratio 13.4 Ratio 06/02/2017 Comp Metabolic Buh120 CALCIUM 8.6 mg/dL 06/02/2017 Comp Metabolic Yjr176 ALK PHOS 63 U/L 06/02/2017 Comp Metabolic Ywb089 AST(SGOT) 17 U/L 06/02/2017 Comp Metabolic Ljc130 ALT(SGPT) 12 U/L 06/02/2017 Comp Metabolic Nlb299 BILI T 0.5 mg/dL 06/02/2017 Comp Metabolic Mbd980 ALBUMIN 3.9 g/dL 06/02/2017 Comp Metabolic Oxw563 TPRO 6.1 g/dL 06/02/2017 Comp Metabolic Qhn684 GLOB 2.2 g/dL 06/02/2017 Comp Metabolic Frk526 A/G Ratio 1.8 Ratio 06/02/2017 Comp Metabolic Zzk768 Osmo 280 mOsmo 06/02/2017 Vitamin D 25 Oh Wjp3016 VITAMIN D, 25 HYDROXY 40.03 ng/mL Cbc [...] 29.7 pg 06/02/2017 Cbc With Differential Ord2 [place]% 10.5 % 06/02/2017 Cbc With Differential Ord2 [...] 1.52 K/ul 06/02/2017 Cbc With Differential Ord2 [place] ABS# 0.6 K/ul 06/02/2017 Cbc With Differential Ord2 Eos ABS# 0.2 K/ul 06/02/2017 Cbc With Differential Ord2 Baso ABS# 0.1 K/ul 06/02/2017 Testosterone Hkq332 Testo 198.4 ng/dL 04/29/2017 Vitamin D 25 Oh Bac6071 VITAMIN D, 25 HYDROXY 29.25 ng/mL Lipid [...] Procedure Codes Date THER/PROPH/DIAG INJ SC/IM CPT-4: 61376 03/06/2018 THER/PROPH/DIAG INJ SC/IM CPT-4: 86881 02/19/2018 THER/PROPH/DIAG INJ SC/IM CPT-4: 58399 02/03/2018 THER/PROPH/DIAG INJ SC/IM CPT-4: 85745 01/07/2018 TRIAMCINOLONE ACET INJ NOS CPT-4: J3301 01/07/2018 ROCEPHIN, PER 250 MG CPT-4: J0696 01/07/2018 THER/PROPH/DIAG INJ SC/IM CPT-4: 99527 01/05/2018 THER/PROPH/DIAG INJ SC/IM CPT-4: 18392 12/15/2017 THER/PROPH/DIAG INJ SC/IM CPT-4: 72896 12/04/2017 PPPS, SUBSEQ VISIT CPT -4: G0439 11/27/2017 ADMIN INFLUENZA VIRUS VAC CPT-4: G0008 11/17/2017 FLU VAC NO PRSV 4 FATOU 3 YRS+ CPT-4: 16982 11/17/2017 THER/PROPH/DIAG INJ SC/IM CPT-4: 19417 11/17/2017 THER/PROPH/DIAG INJ SC/IM CPT-4: 10114 10/22/2017 THER/PROPH/DIAG INJ SC/IM CPT-4: 41266 10/06/2017 TRIAMCINOLONE ACET INJ NOS CPT-4: J3301 10/06/2017 THER/PROPH/DIAG INJ SC/IM CPT-4: 21197 09/23/2017 THER/PROPH/DIAG INJ SC/IM CPT-4: 45478 08/28/2017 THER/PROPH/DIAG INJ SC/IM CPT-4: 34973 08/12/2017 THER/PROPH/DIAG INJ SC/IM CPT-4: 44588 07/28/2017 THER/PROPH/DIAG INJ SC/IM CPT-4: 38081 07/14/2017 THER/PROPH/DIAG INJ SC/IM CPT-4: 40912 06/26/2017 THER/PROPH/DIAG INJ SC/IM CPT-4: 76165 06/09/2017 THER/PROPH/DIAG INJ SC/IM CPT-4: 49172 05/27/2017 THER/PROPH/DIAG INJ SC/IM CPT-4: 76483 05/13/2017 THER/PROPH/DIAG INJ SC/IM CPT-4: 81515 04/29/2017 Vital Signs Date Vital 03/10/2018 Blood Pressure 1: 120/70 Code : 8480-6 BMI: 29.0 Code : 61453-9 Heart Rate 1 : 82 bpm Height: 5'10" SpO2: 95% Weight: 202 lbs 01/07/2018 Blood Pressure 1: 126/66 Code : 8480-6 BMI: 30.1 Code : 46758-4 Heart Rate 1 : 75 bpm Height: 5'10" SpO2: 97% Temperature: 36.5 (C) / 97.7 (F) Weight: 210 lbs 12/22/2017 Blood Pressure 1: 124/70 Code : 8480-6 BMI: 29.7 Code : 74175-7 Heart Rate 1 : 84 bpm Height: 5'10" SpO2: 94% Weight: 207 lbs 12/15/2017 Blood Pressure 1: 122/82 Code : 8480-6 BMI: 30.0 Code : 62606-2 Heart Rate 1 : 82 bpm Height: 5'10" SpO2: 93% Weight: 209 lbs 11/27/2017 Blood Pressure 1: 132/68 Code : 8480-6 BMI: 29.3 Code : 23946-7 Heart Rate 1 : 71 bpm Height: 5'10" SpO2: 97% Waist Measure (cm): 97 cm Weight: 204 lbs 11/17/2017 Blood Pressure 1: 130/80 Code : 8480-6 BMI: 29.3 Code : 66756-0 Heart Rate 1 : 73 bpm Height: 5'10" SpO2: 99% Weight: 204 lbs 10/06/2017 Blood Pressure 1: 124/60 Code : 8480-6 BMI: 28.8 Code : 40402-0 Heart Rate 1 : 70 bpm Height: 5'10" SpO2: 98% Weight: 201 lbs 07/24/2017 Blood Pressure 1: 118/70 Code : 8480-6 BMI: 29.3 Code : 13485-5 Heart Rate 1 : 82 bpm Height: 5'10" SpO2: 96% Weight: 204 lbs 07/14/2017 Blood Pressure 1: 118/72 Code : 8480-6 BMI: 29.1 Code : 42261-3 Heart Rate 1 : 83 bpm Height: 5'10" SpO2: 98% Weight: 203 lbs 06/09/2017 Blood Pressure 1: 120/74 Code : 8480-6 BMI: 29.3 Code : 23249-5 Heart Rate 1 : 91 bpm Height: 5'10" SpO2: 99% Weight: 204 lbs 04/28/2017 Blood Pressure 1: 118/68 Code : 8480-6 BMI: 28.8 Code : 40321-5 Heart Rate 1 : 74 bpm Height: 5'10" SpO2: 96% Weight: 201 lbs 03/14/2017 Blood Pressure 1: 114/74 Code : 8480-6 BMI: 28.6 Code : 19969-4 Heart Rate 1 : 77 bpm Height: [...] data Encounters Encounter Performer Location Codes Date ([id number]) [id number] EST. PATIENT, LEVEL IV Diagnosis: Low back pain[ICD10: M54.5] Diagnosis: Mixed hyperlipidemia[ICD10: E78.2] Diagnosis: Spinal stenosis, lumbosacral region[ICD10: M48.07] Diagnosis: Testicular hypofunction[ICD10: E29.1] Leora Hollis MD, [facility] CPT-4: 81958 03/10/2018 [id number] EST. PATIENT, LEVEL III Diagnosis: Other malaise[ICD10: R53.81] Diagnosis: Acute laryngopharyngitis[ICD10: J06.0] Diagnosis: Other allergic rhinitis[ICD10: J30.89] Sapphire Hollis MD, [facility] CPT-4: 82305 01/07/2018 [id number] 66729 EST. PATIENT, LEVEL III Diagnosis: Spinal stenosis, lumbosacral region[ICD10: M48.07] Diagnosis: Spinal stenosis, cervical region[ICD10: M48.02] Elise Hollis MD, [facility] CPT-4: 53617 12/22/2017 ([id number]) 19107 EST. 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 PATIENT, LEVEL III Diagnosis: Mixed hyperlipidemia[ICD10: E78.2] Diagnosis: Other insomnia[ICD10: G47.09] Leora Hollis MD, [facility] CPT- 4: 93376 11/17/2017 [id number] EST. PATIENT, LEVEL III Diagnosis: Acute laryngopharyngitis[ICD10: J06.0] Diagnosis: Other allergic rhinitis[ICD10: J30.89] Sapphire Hollis MD, [facility] CPT-4: 28682 10/06/2017 40840 EST. PATIENT, LEVEL III Diagnosis: Pain in left shoulder[ICD10: M25.512] Sapphire Hollis MD, [facility] CPT-4: 31080 07/24/2017 ([id number]) 49355 EST. 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] Diagnosis: Mixed hyperlipidemia[ICD10: E78.2] Diagnosis: Hypoxemia[ICD10: R09.02] Leora Hollis MD, [facility] CPT-4: 17282 06/09/2017 ([id number]) 30935 EST. 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] Leora Hollis MD, [facility] CPT-4: 78940 04/28/2017 ([id number]) Miscellaneous no charge Diagnosis: Impacted cerumen, bilateral[ICD10: H61.23] [facility] CPT-4: 42867 03/17/2017 ([id number]) OFFICE VISIT, NEW - LEVEL 4 Diagnosis: Mixed hyperlipidemia[ICD10: E78.2] Diagnosis: Chronic pain syndrome[ICD10: G89.4] Diagnosis: Presbycusis, bilateral[ICD10: H91.13] Diagnosis: Impacted cerumen, bilateral[ICD10: H61.23] Diagnosis: Atherosclerotic heart disease of [place] coronary artery without angina pectoris[ICD10: I25.10] Diagnosis: Personal history of other diseases of the circulatory system[ICD10: Z86.79] [facility] CPT-4: 19981 2017 Plan of Care Planned Activity Notes Codes Status Date Visit Plan: Spinal stenosis with back pain - refilled hydrocodone- [facility] for treatment of stenosis of arteries, then pt most-likely to have surgical intervention of spine. PAD - pt will need surgical intervention with stenting. Testicular hypofunction - continue with testosterone. 03/10/2018 App[facility]ment[phone] (15 min) Moderate 03/10/2018 Patient Education: Patient Medication Summary Completed 03/10/2018 Patient Education: Back Pain Completed 03/10/2018 Patient Education: Cholesterol Management Completed 03/10/2018 Appointment: [phone] [facility] [place] (15 min) Moderate 03/09/2018 Appointment: Injection [...] allergy spray. 01/07/2018 Appointment: Sapphire Oneil WPtel: [facility] (15 min) Moderate 01/07/2018 Patient Education: [...] Appointment: Elise Castillo WPtel: [phone] [place] (15 min) Moderate 12/22/2017 Patient Education: Patient Medication Summary Completed 12/22/2017 Visit Plan: Neck and low back pain -will schedule MRI lumbar and cervical spine for further evaluation and proceed as indicated- patient verbalized understanding of plan. 12/15/2017 Appointment: Elise Castillo WPtel: [phone] (15 min) Moderate 12/15/2017 Patient Education: Patient Medication Summary Completed 12/15/2017 Patient Education: Back Pain Completed 12/15/2017 Care Plan: MRI LUMBAR SPINE W/O DYE LOINC : 16187-8 Pending 12/15/2017 Care Plan: MRI NECK SPINE W/O DYE LOINC : 86536-9 Pending 12/15/2017 Appointment: Injection 12/04/2017 Patient Education: [...] surrogate. 11/27/2017 [phone] [facility] [facility] - Annual Wellness Visit 11/27/2017 [...] to sleep 11/17/2017 Appointment: Leora Hollis WPtel: [facility] (15 min) Moderate 11/17/2017 Patient Education: Patient [...] Appointment: Leora Hollis WPtel: [facility] (15 min) Moderate 10/06/2017 Appointment: Sapphire Oneil WPtel[facility] ([facility] min) Moderate 10/06/2017 Patient Education: [...] treatment plan. 07/24/2017 Appointment: Sapphire Oneil WPtel[facility] [place] (30 min) Complex 07/24/2017 Patient [...] medications. 07/14/2017 Appointment: [phone] [facility] (15 min) Moderate 07/14/2017 Patient Education: Patient Medication Summary Completed 07/14/2017 Appointment: [facility] Holl[phone] [facility] [place] (15 min) Moderate 07/10/2017 Appointment: Injection [...] night 06/09/2017 Appointment: [facility] Holl[phone] [facility] [place] (30 min) Complex 06/09/2017 Patient [...] 15 04/28/2017 Appointment: Leora Hollis WPtel: [phone] [facility] (30 min) Complex 04/28/2017 Patient Education: [...] wax removal 03/14/2017 Appointment: [phone] [facility] New Patient 03/14/2017 Patient Education: Patient [...] pain - refilled hydrocodone- [facility] for treatment of stenosis of arteries, then pt most- likely to have surgical intervention of spine. PAD - pt will need surgical intervention with stenting. Testicular hypofunction - continue with testosterone. REFER FOR PHYSICAL THERAPY AT [facility] -HE HAS A PT HE [...]
--- OUTSIDE RECORDS SUMMARY | 2018-06-12 09:30 | XMS REPORT | CCD ---
Author Author [facility] Organization [facility] Address [address] [place] [address] Phone Care Team Providers Care [place] Repairer Name Role Phone PP Unavailable CCM Unavailable Summary Purpose Interface Exchange Insurance Providers Payer name Policy type / Coverage type Covered green party ID Effective Begin Date Effective End Date WPS Medicare Part B Medicare Part B [id number] 2017 Unknown [facility] Medicare Part B [id number] 2017 Unknown Family history Father Diagnosis Age At Onset Heart Attack Unknown Social History Social History Element Codes Description Effective Dates Marital status Unknown 03/14/2017 Number of children Unknown 2 03/14/[address]: 4451553 Former smoker Quit 11/03/00; smoke 1/2 pack/day x15 years 03/14/[address]: 598949974 Never drinks alcohol 03/14/2017 Allergies, Adverse Reactions, [...] Active 03/14/2017 Unknown 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 [...] H61.23 03/14/2017 Active 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 ICD-10: I25.10 03/14/2017 Active Chronic pain syndrome ICD-9: 338.4 ICD-10: G89.4 03/14/2017 Active Personal history of other diseases of the circulatory system ICD-9: V12.59 ICD-10: Z86.79 03/14/2017 Active Presbycusis, 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 03/14/2017 Active Medications Medication Codes Instructions Start Date Stop Date Status Fill Instructions hydrocodone 5 mg-acetaminophen 325 mg tablet RxNorm: 609590 1-2 Tablet(s) PO Q6 PRN 03/20/2018 04/18/2018 Active furosemide 40 mg tablet RxNorm: 919622 TAKE ONE TABLET BY MOUTH DAILY 03/17/2018 09/12/2018 Active testosterone cypionate 200 mg/mL intramuscular oil RxNorm: 5669820 Milliliter(s) IM 03/06/2018 03/06/2018 Inactive testosterone cypionate 200 mg/mL intramuscular oil RxNorm: 0843759 Milliliter(s) IM 02/19/2018 02/19/2018 Inactive hydrocodone 5 mg-acetaminophen 325 mg tablet RxNorm: 556544 1-2 Tablet(s) PO Q6 PRN 02/18/2018 03/09/2018 Inactive zolpidem 5 mg tablet RxNorm: 212544 TAKE ONE TABLET BY MOUTH EVERY NIGHT AT BEDTIME NEEDED 02/13/2018 03/14/2018 Inactive meloxicam 15 mg tablet RxNorm: 251844 TAKE ONE TABLET BY MOUTH DAILY 02/13/2018 08/11/2018 Active testosterone cypionate 200 mg/mL intramuscular kit RxNorm: 658297 1/2 Milliliter(s ) IM [id number] 02/03/2018 08/01/2018 Active testosterone cypionate 200 mg/mL intramuscular oil RxNorm: 604031 Milliliter(s) IM 02/03/2018 02/03/2018 Inactive prednisone 20 mg tablet RxNorm: 627591 2 Tablet(s) PO QAM 01/0901/13/2018 Inactive cefdinir 300 mg capsule RxNorm: 298511 1 Capsule(s) PO BID 01/18/2018 Inactive prednisone 20 mg tablet RxNorm: 217216 2 Tablet(s) PO QAM 01/0901/08/2018 Inactive cefdinir 300 mg capsule RxNorm: 802553 1 Capsule(s) PO BID 01/08/2018 Inactive Zithromax Z-Timothy 250 mg tablet RxNorm: 862793 1 Tablet(s) PO UD 01/07/2018 No Stop Date Active Kenalog 40 mg/mL suspension for injection RxNorm: 0415074 Milliliter(s) Inj 01/07/2018 01/07/2018 Inactive ceftriaxone 500 mg solution for injection RxNorm: 1763641 Inj 01/07/2018 01/07/2018 Inactive testosterone cypionate 200 mg/mL intramuscular oil RxNorm: 892217 1/2 Milliliter(s ) IM 01/05/2018 01/05/2018 Inactive hydrocodone 5 mg-acetaminophen 325 mg tablet RxNorm: 206553 1-2 Tablet(s) PO Q6 PRN 12/22/2017 02/17/2018 Inactive zolpidem 5 mg tablet RxNorm: 169916 1 Tablet(s) PO 30 min before QHS 12/15/2017 02/12/2018 Inactive testosterone cypionate 200 mg/mL intramuscular oil RxNorm: 694220 Milliliter(s) IM 12/15/2017 12/15/2017 Inactive testosterone cypionate 200 mg/mL intramuscular oil RxNorm: 991129 1/2 Milliliter(s ) IM 12/04/2017 12/04/2017 Inactive testosterone cypionate 200 mg/mL intramuscular oil RxNorm: 923623 1/2 Milliliter(s ) IM 11/17/2017 11/17/2017 Inactive potassium chloride ER 10 mEq capsule,extended release RxNorm: 958408 TAKE ONE CAPSULE BY MOUTH DAILY 11/11/20172018 Active testosterone cypionate 200 mg/mL intramuscular oil RxNorm: 569460 Milliliter(s) IM 10/22/2017 10/22/2017 Inactive zolpidem 5 mg tablet RxNorm: 836516 1 Tablet(s) PO 30 min before QHS 10/15/2017 10/14/2017 Inactive zolpidem 5 mg tablet RxNorm: 106248 1 Tablet(s) PO 30 min before QHS 10/15/2017 12/13/2017 Inactive Zithromax Z-Timothy 250 mg tablet RxNorm: 067259 1 Tablet(s) PO UD 10/07/2017 11/16/2017 Inactive testosterone cypionate 200 mg/mL intramuscular oil RxNorm: 778940 Milliliter(s) IM 10/06/2017 10/06/2017 Inactive Kenalog 40 mg/mL suspension for injection RxNorm: 2691880 Milliliter(s) Inj 10/06/2017 10/06/2017 Inactive Zithromax Z-Timothy 250 mg tablet RxNorm: 763964 1 Tablet(s) PO UD 10/06/2017 10/06/2017 Inactive testosterone cypionate 200 mg/mL intramuscular oil RxNorm: 604658 Milliliter(s) IM 09/23/2017 09/23/2017 Inactive testosterone cypionate 200 mg/mL intramuscular kit RxNorm: 655612 1/2 Milliliter(s ) IM [id number] 08/28/2017 02/02/2018 Inactive meloxicam 15 mg tablet RxNorm: 727131 TAKE ONE TABLET BY MOUTH DAILY 08/28/2017 02/12/2018 Inactive testosterone cypionate 200 mg/mL intramuscular oil RxNorm: 943557 Milliliter(s) IM 08/28/2017 08/28/2017 Inactive testosterone cypionate 200 mg/mL intramuscular oil RxNorm: 335256 1/2 Milliliter(s ) IM 08/12/2017 08/12/2017 Inactive meloxicam 15 mg tablet RxNorm: 972115 1 Tablet(s) PO daily 08/201708/27/2017 Inactive atorvastatin 40 mg tablet RxNorm: 565622 TAKE ONE TABLET BY MOUTH DAILY 07/30/2017 02/24/2018 Inactive furosemide 40 mg tablet RxNorm: 948163 TAKE ONE TABLET BY MOUTH DAILY 07/30/2017 02/24/2018 Inactive testosterone cypionate 200 mg/mL intramuscular oil RxNorm: 810804 1/2 Milliliter(s ) IM 07/28/2017 07/28/2017 Inactive testosterone cypionate 200 mg/mL intramuscular oil RxNorm: 678011 1/2 Milliliter(s ) IM 07/14/2017 07/14/2017 Inactive testosterone cypionate 200 mg/mL intramuscular oil RxNorm: 081354 1/2 Milliliter(s ) IM 06/26/2017 06/26/2017 Inactive hydrocodone 5 mg-acetaminophen 325 mg tablet RxNorm: 197089 1 Tablet(s) PO QHS and 1 tab PO daily PRN pain 06/09/2017 Inactive hydrocodone 5 mg-acetaminophen 325 mg tablet RxNorm: 013584 1 Tablet(s) PO daily 06/09/2017 06/18/2017 Inactive testosterone cypionate 200 mg/mL intramuscular oil RxNorm: 136065 1/2 Milliliter(s ) IM 06/09/2017 06/09/2017 Inactive testosterone cypionate 200 mg/mL intramuscular oil RxNorm: 402419 Milliliter(s) IM 05/27/2017 05/27/2017 Inactive testosterone cypionate 200 mg/mL intramuscular oil RxNorm: 833682 Milliliter(s) IM 05/13/2017 05/13/2017 Inactive potassium chloride ER 10 mEq capsule,extended release RxNorm: 635168 1 Capsule(s) PO daily 05/07/2017 11/02/2017 Inactive Vitamin D2 50,000 unit capsule RxNorm: 265120 1 Capsule(s) PO QW 05/06/2017 05/05/2017 Inactive take with OTC vitamin d 2,000 units QD testosterone cypionate 200 mg/mL intramuscular kit RxNorm: 171856 1/2 kit IM 2 x month 05/06/2017 08/27/2017 Inactive Vitamin D2 50,000 unit capsule RxNorm: 676650 1 Capsule(s) PO QW 05/06/2017 08/03/2017 Inactive take with OTC vitamin d 2,000 units QD testosterone cypionate 200 mg/mL intramuscular oil RxNorm: 124627 1/2 Milliliter(s ) IM 04/29/2017 04/29/2017 Inactive fluorouracil 5 % topical cream RxNorm: 633394 1 Application TOP BID 04/28/2017 05/07/2017 Inactive testosterone cypionate 200 mg/mL intramuscular kit RxNorm: 874667 1/2 IM 2 x month 04/28/2017 05/05/2017 Inactive Pamelor 10 mg capsule RxNorm: 755985 1 Capsule(s) PO daily No Start Date Active gabapentin 300 mg capsule RxNorm: 554006 6 Capsule(s) PO daily No Start Date Active cyclobenzaprine 5 mg tablet RxNorm: 961771 1 Tablet(s) PO as needed No Start Date Active diclofenac 1 % topical gel RxNorm: 639316 1 Gram(s) TOP as needed No Start Date Active clopidogrel 75 mg tablet RxNorm: 319560 1 Tablet(s) PO daily No Start Date Active meloxicam 15 mg tablet RxNorm: 292355 1 Tablet(s) PO daily No Start Date 07/30/2017 Inactive potassium chloride ER 10 mEq tablet,extended release RxNorm: 770283 1 Tablet(s) PO daily No Start Date 05/06/2017 Inactive hydrocodone 5 mg-acetaminophen 325 mg tablet RxNorm: 411969 1 Tablet(s) PO daily No Start Date 06/08/2017 Inactive furosemide 40 mg tablet RxNorm: 791857 1 Tablet(s) PO daily No Start Date 07/29/2017 Inactive atorvastatin 40 mg tablet RxNorm: 886359 1 Tablet(s) PO QHS No Start Date 07/29/2017 Inactive Medication Administered Medication Codes Instructions Start Date Status testosterone cypionate 200 mg/mL intramuscular oil RxNorm: 3863229 Milliliter 03/06/2018 No longer Active testosterone cypionate 200 mg/mL intramuscular oil RxNorm: 1970248 Milliliter 02/19/2018 No longer Active testosterone cypionate 200 mg/mL intramuscular oil RxNorm: 519504 Milliliter 02/03/2018 No longer Active Kenalog 40 mg/mL suspension for injection RxNorm: 0527081 Milliliter 01/07/2018 No longer Active ceftriaxone 500 mg solution for injection RxNorm: 3121294 01/07/2018 No longer Active testosterone cypionate 200 mg/mL intramuscular oil RxNorm: 597940 /2Milliliter 01/05/2018 No longer Active testosterone cypionate 200 mg/mL intramuscular oil RxNorm: 531070 Milliliter 12/15/2017 No longer Active testosterone cypionate 200 mg/mL intramuscular oil RxNorm: 385902 /2Milliliter 12/04/2017 No longer Active testosterone cypionate 200 mg/mL intramuscular oil RxNorm: 214774 /2Milliliter 11/17/2017 No longer Active testosterone cypionate 200 mg/mL intramuscular oil RxNorm: 985972 Milliliter 10/22/2017 No longer Active Kenalog 40 mg/mL suspension for injection RxNorm: 5782350 Milliliter 10/06/2017 No longer Active testosterone cypionate 200 mg/mL intramuscular oil RxNorm: 216306 Milliliter 10/06/2017 No longer Active testosterone cypionate 200 mg/mL intramuscular oil RxNorm: 456238 Milliliter 09/23/2017 No longer Active testosterone cypionate 200 mg/mL intramuscular oil RxNorm: 385671 Milliliter 08/28/2017 No longer Active testosterone cypionate 200 mg/mL intramuscular oil RxNorm: 955669 /2Milliliter 08/12/2017 No longer Active testosterone cypionate 200 mg/mL intramuscular oil RxNorm: 757948 2Milliliter 07/28/2017 No longer Active testosterone cypionate 200 mg/mL intramuscular oil RxNorm: 695368 2Milliliter 07/14/2017 No longer Active testosterone cypionate 200 mg/mL intramuscular oil RxNorm: 571722 2Milliliter 06/26/2017 No longer Active testosterone cypionate 200 mg/mL intramuscular oil RxNorm: 972472 /2Milliliter 06/09/2017 No longer Active testosterone cypionate 200 mg/mL intramuscular oil RxNorm: 518762 Milliliter 05/27/2017 No longer Active testosterone cypionate 200 mg/mL intramuscular oil RxNorm: 607330 Milliliter 05/13/2017 No longer Active testosterone cypionate 200 mg/mL intramuscular oil RxNorm: 538918 illiliter 04/29/2017 No longer Active Immunizations Vaccine Codes Date Status Influenza CVX: 141 11/17/2017 completed Assessments Condition Codes Effective Dates Mixed hyperlipidemia ICD-10: E78.2 ICD-9: 272.2 03/10/2018 Low back pain ICD-10: M54.5 ICD-9: 724.2 03/10/2018 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 ICD-9: 257.2 03/10/2018 Spinal stenosis, lumbosacral region ICD-10: M48.07 ICD-9: 724.02 03/10/2018 Other allergic rhinitis ICD-10: J30.89 ICD-9: 477.8 01/07/2018 Acute laryngopharyngitis ICD-10: J06.0 ICD-9: 465.0 01/07/2018 Other malaise ICD-10: R53.81 ICD-9: 780.79 01/07/2018 Spinal stenosis, cervical region ICD-10: M48.02 [...] ICD-9: 380.4 03/17/2017 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 ICD-9: 414.00 03/14/2017 Presbycusis, bilateral ICD-10: H91.13 ICD-9: 388.01 03/14/2017 Personal history of other diseases of the circulatory system ICD-10: Z86.79 ICD-9: V12.59 03/14/2017 Chronic pain syndrome ICD-10: G89.4 ICD-9: 338.4 03/14/2017 Reason For Visit Reason For Visit Effective Dates Notes back pain 03/10/2018 sinus congestion 01/07/2018 back pain 12/22/2017 back pain 12/15/2017 Annual Medicare Wellness Exam 11/27/2017 shoulder pain 11/17/2017 sinus congestion 10/06/2017 shoulder pain 07/24/2017 abnormal test results 07/14/2017 fatigue 06/09/2017 fatigue 04/28/2017 hyperlipidemia 03/14/2017 R ear Results Observation Observation Code Item Item Code Result Date Testosterone Dub588 Testo 375.1 ng/dL 03/02/2018 Cbc With Differential [...] 25.6 pg 03/02/2018 Cbc With Differential Ord2 [place]% 7.9 % 03/02/2018 Cbc With Differential Ord2 [...] 1.41 K/ul 03/02/2018 Cbc With Differential Ord2 [place] ABS# 0.8 K/ul 03/02/2018 Cbc With Differential Ord2 Eos ABS# 0.2 K/ul 03/02/2018 Cbc With Differential Ord2 Baso ABS# 0.1 K/ul 03/02/2018 Influenza A+B Sxt209 Influ A+B Negative 01/08/2018 C A/B FLU [id number] Influenza A Scr TNP:Improper Specimen 01/07 C A/B FLU [id number] Influenza B Scr TNP:Improper Specimen 01/07 C A/B FLU [id number] IC OK? TNP:Improper Specimen 01/07/2018 C A/B FLU [id number] Influenza Intrp B AG: PRID:PT:NOSE:NOM:IF TNP:Improper Specimen 01/07/2018 Hepatic Zbh771 ALBUMIN 3.7 g/dL 08/06/2017 Hepatic Dpe297 TPRO 5.9 g/dL 08/06/2017 Hepatic Neh227 GLOB 2.2 g/dL 08/06/2017 Hepatic Snl424 A/G Ratio 1.7 Ratio 08/06/2017 Hepatic Wmk276 ALK PHOS 46 U/L 08/06/2017 Hepatic Mqa068 ALT(SGPT) 9 U/L 08/06/2017 Hepatic Hur558 AST(SGOT) 13 U/L 08/06/2017 Hepatic Nmj447 BILI T 0.6 mg/dL 08/06/2017 Hepatic Xjr902 BILI D 0.2 mg/dL 08/06/2017 Hepatic Xxu982 BILI I 0.4 mg/dL 08/06/2017 Cbc With Differential Ord2 WBC 5.27 [...] 28.5 pg 08/06/2017 Cbc With Differential Ord2 [place]% 11.2 % 08/06/2017 Cbc With Differential Ord2 [...] 1.33 K/ul 08/06/2017 Cbc With Differential Ord2 [place] ABS# 0.6 K/ul 08/06/2017 Cbc With Differential Ord2 Eos ABS# 0.3 K/ul 08/06/2017 Cbc With Differential Ord2 Baso ABS# 0.1 K/ul 08/06/2017 Testosterone Hao632 Testo 474.5 ng/dL 08/06/2017 Vitamin D 25 Oh Jcc8911 VITAMIN D, 25 HYDROXY 40.03 ng/mL Cbc With Differential Ord2 WBC 5.23 K/ul 06/02/2017 Cbc With Differential Ord2 RBC 5.29 M/ul 06/02/2017 Cbc With Differential Ord2 HGB 15.7 g/dl 06/02/2017 Cbc With Differential Ord2 Neut% 56.0 % 06/02/2017 Cbc With Differential Ord2 HCT 49.2 % 06/02/2017 Cbc With Differential Ord2 MCV 93.0 fl 06/02/2017 Cbc With Differential Ord2 Lymph% 29.1 % 06/02/2017 Cbc With Differential Ord2 MCH 29.7 pg 06/02/2017 Cbc With Differential Ord2 [place]% 10.5 % 06/02/2017 Cbc With Differential Ord2 MCHC 31.9 pg 06/02/2017 Cbc With Differential Ord2 Eos% 3.3 % 06/02/2017 Cbc With Differential Ord2 Baso% 1.1 % 06/02/2017 Cbc With Differential Ord2 PLT 267 K/ul 06/02/2017 Cbc With Differential Ord2 Neut ABS# 2.93 K/ul 06/02/2017 Cbc With Differential Ord2 RDW 13.8 % 06/02/2017 Cbc With Differential Ord2 Lymph ABS# 1.52 K/ul 06/02/2017 Cbc With Differential Ord2 [place] ABS# 0.6 K/ul 06/02/2017 Cbc With Differential Ord2 Eos ABS# 0.2 K/ul 06/02/2017 Cbc With Differential Ord2 Baso ABS# 0.1 K/ul 06/02/2017 Comp Metabolic Qon828 NA 140 mEq/L 06/02/2017 Comp Metabolic Xpw253 K 3.8 mEq/L 06/02/2017 Comp Metabolic Obc584 CL 102 mEq/L 06/02/2017 Comp Metabolic Mtj252 CO2 30.0 mEq/L 06/02/2017 Comp Metabolic Wgq816 ANION GAP 12 06/02/2017 Comp Metabolic Lbg676 GLUCOSE 100 mg/dL 06/02/2017 Comp Metabolic Qpm521 Creat 1.1 mg/dL 06/02/2017 Comp Metabolic Azo856 eGFR 69 ml/min/1.73m2 06/02/2017 Comp Metabolic Cyk660 BUN 15 mg/dL 06/02/2017 Comp Metabolic Ezb834 B/C Ratio 13.4 Ratio 06/02/2017 Comp Metabolic Bwk483 CALCIUM 8.6 mg/dL 06/02/2017 Comp Metabolic Igc386 ALK PHOS 63 U/L 06/02/2017 Comp Metabolic Kgg508 AST(SGOT) 17 U/L 06/02/2017 Comp Metabolic Cgc566 ALT(SGPT) 12 U/L 06/02/2017 Comp Metabolic Yyg023 BILI T 0.5 mg/dL 06/02/2017 Comp Metabolic Zcf648 ALBUMIN 3.9 g/dL 06/02/2017 Comp Metabolic Lfs754 TPRO 6.1 g/dL 06/02/2017 Comp Metabolic Ccq670 GLOB 2.2 g/dL 06/02/2017 Comp Metabolic Dxv230 A/G Ratio 1.8 Ratio 06/02/2017 Comp Metabolic Aap704 Osmo 280 mOsmo 06/02/2017 Lipid Ord30 CHOL 159 mg/dL 04/29/2017 Lipid Ord30 HDL 46.0 mg/dl 04/29/2017 Lipid Ord30 TRIG 134 mg/dL 04/29/2017 Lipid Ord30 LDL 86 mg/dL 04/29/2017 Lipid Ord30 C/HDL 3.5 Ratio 04/29/2017 Testosterone Tgo541 Testo 198.4 ng/dL 04/29/2017 Tsh Ord6 TSH (3rd IS) 3.28 uIU/mL 04/29/2017 Vitamin D 25 Oh Qew0902 VITAMIN D, 25 HYDROXY 29.25 ng/mL Review of Systems System Result Effective Dates [...] Procedure Codes Date THER/PROPH/DIAG INJ SC/IM CPT-4: 45598 03/06/2018 THER/PROPH/DIAG INJ SC/IM CPT-4: 82001 02/19/2018 THER/PROPH/DIAG INJ SC/IM CPT-4: 34549 02/03/2018 THER/PROPH/DIAG INJ SC/IM CPT-4: 43150 01/07/2018 TRIAMCINOLONE ACET INJ NOS CPT-4: J3301 01/07/2018 ROCEPHIN, PER 250 MG CPT-4: J0696 01/07/2018 THER/PROPH/DIAG INJ SC/IM CPT-4: 55607 01/05/2018 THER/PROPH/DIAG INJ SC/IM CPT-4: 20533 12/15/2017 THER/PROPH/DIAG INJ SC/IM CPT-4: 24884 12/04/2017 PPPS, SUBSEQ VISIT CPT -4: G0439 11/27/2017 ADMIN INFLUENZA VIRUS VAC CPT-4: G0008 11/17/2017 FLU VAC NO PRSV 4 FATOU 3 YRS+ CPT-4: 69497 11/17/2017 THER/PROPH/DIAG INJ SC/IM CPT-4: 91105 11/17/2017 THER/PROPH/DIAG INJ SC/IM CPT-4: 57863 10/22/2017 THER/PROPH/DIAG INJ SC/IM CPT-4: 74139 10/06/2017 TRIAMCINOLONE ACET INJ NOS CPT-4: J3301 10/06/2017 THER/PROPH/DIAG INJ SC/IM CPT-4: 67069 09/23/2017 THER/PROPH/DIAG INJ SC/IM CPT-4: 15286 08/28/2017 THER/PROPH/DIAG INJ SC/IM CPT-4: 83352 08/12/2017 THER/PROPH/DIAG INJ SC/IM CPT-4: 63218 07/28/2017 THER/PROPH/DIAG INJ SC/IM CPT-4: 49793 07/14/2017 THER/PROPH/DIAG INJ SC/IM CPT-4: 76848 06/26/2017 THER/PROPH/DIAG INJ SC/IM CPT-4: 20230 06/09/2017 THER/PROPH/DIAG INJ SC/IM CPT-4: 47757 05/27/2017 THER/PROPH/DIAG INJ SC/IM CPT-4: 69191 05/13/2017 THER/PROPH/DIAG INJ SC/IM CPT-4: 40249 04/29/2017 Vital Signs Date Vital 03/10/2018 Blood Pressure 1: 120/70 Code : 8480-6 BMI: 29.0 Code : 73068-6 Heart Rate 1 : 82 bpm Height: 5'10" SpO2: 95% Weight: 202 lbs 01/07/2018 Blood Pressure 1: 126/66 Code : 8480-6 BMI: 30.1 Code : 57024-7 Heart Rate 1 : 75 bpm Height: 5'10" SpO2: 97% Temperature: 36.5 (C) / 97.7 (F) Weight: 210 lbs 12/22/2017 Blood Pressure 1: 124/70 Code : 8480-6 BMI: 29.7 Code : 46270-9 Heart Rate 1 : 84 bpm Height: 5'10" SpO2: 94% Weight: 207 lbs 12/15/2017 Blood Pressure 1: 122/82 Code : 8480-6 BMI: 30.0 Code : 20506-9 Heart Rate 1 : 82 bpm Height: 5'10" SpO2: 93% Weight: 209 lbs 11/27/2017 Blood Pressure 1: 132/68 Code : 8480-6 BMI: 29.3 Code : 04431-7 Heart Rate 1 : 71 bpm Height: 5'10" SpO2: 97% Waist Measure (cm): 97 cm Weight: 204 lbs 11/17/2017 Blood Pressure 1: 130/80 Code : 8480-6 BMI: 29.3 Code : 75621-5 Heart Rate 1 : 73 bpm Height: 5'10" SpO2: 99% Weight: 204 lbs 10/06/2017 Blood Pressure 1: 124/60 Code : 8480-6 BMI: 28.8 Code : 88260-6 Heart Rate 1 : 70 bpm Height: 5'10" SpO2: 98% Weight: 201 lbs 07/24/2017 Blood Pressure 1: 118/70 Code : 8480-6 BMI: 29.3 Code : 66063-7 Heart Rate 1 : 82 bpm Height: 5'10" SpO2: 96% Weight: 204 lbs 07/14/2017 Blood Pressure 1: 118/72 Code : 8480-6 BMI: 29.1 Code : 52993-4 Heart Rate 1 : 83 bpm Height: 5'10" SpO2: 98% Weight: 203 lbs 06/09/2017 Blood Pressure 1: 120/74 Code : 8480-6 BMI: 29.3 Code : 33063-1 Heart Rate 1 : 91 bpm Height: 5'10" SpO2: 99% Weight: 204 lbs 04/28/2017 Blood Pressure 1: 118/68 Code : 8480-6 BMI: 28.8 Code : 48206-6 Heart Rate 1 : 74 bpm Height: 5'10" SpO2: 96% Weight: 201 lbs 03/14/2017 Blood Pressure 1: 114/74 Code : 8480-6 BMI: 28.6 Code : 82410-8 Heart Rate 1 : 77 bpm Height: [...] data Encounters Encounter Performer Location Codes Date ([id number]) [id number] EST. PATIENT, LEVEL IV Diagnosis: Low back pain[ICD10: M54.5] Diagnosis: Mixed hyperlipidemia[ICD10: E78.2] Diagnosis: Spinal stenosis, lumbosacral region[ICD10: M48.07] Diagnosis: Testicular hypofunction[ICD10: E29.1] Leora Hollis MD, [facility] CPT-4: 11206 03/10/2018 [id number] EST. PATIENT, LEVEL III Diagnosis: Other malaise[ICD10: R53.81] Diagnosis: Acute laryngopharyngitis[ICD10: J06.0] Diagnosis: Other allergic rhinitis[ICD10: J30.89] Sapphire Hollis MD, [facility] CPT-4: 85046 01/07/2018 ([id number]) 81743 EST. PATIENT, LEVEL III Diagnosis: Spinal stenosis, lumbosacral region[ICD10: M48.07] Diagnosis: Spinal stenosis, cervical region[ICD10: M48.02] Elise Hollis MD, [facility] CPT-4: 66207 12/22/2017 ([id number]) 82516 EST. PATIENT, LEVEL III Diagnosis: Cervicalgia[ICD10: M54.2] Diagnosis: Low back pain[ICD10: M54.5] Diagnosis: Testicular hypofunction[ICD10: E29.1] Elise Hollis MD, [facility] CPT-4: 95559 12/15/2017 ([id number]) 14536 EST. PATIENT, LEVEL III Diagnosis: Mixed hyperlipidemia[ICD10: E78.2] Diagnosis: Other insomnia[ICD10: G47.09] Leora Hollis MD, [facility] CPT- 4: 60466 11/17/2017 [id number] EST. PATIENT, LEVEL III Diagnosis: Acute laryngopharyngitis[ICD10: J06.0] Diagnosis: Other allergic rhinitis[ICD10: J30.89] Sapphire Hollis MD, [facility] CPT-4: 52561 10/06/2017 [id number] EST. PATIENT, LEVEL III Diagnosis: Pain in left shoulder[ICD10: M25.512] Sapphire Hollis MD, [facility] CPT-4: 11644 07/24/2017 ([id number]) 73921 EST. PATIENT, LEVEL IV Diagnosis: Mixed hyperlipidemia[ICD10: E78.2] Diagnosis: Chronic obstructive pulmonary disease, unspecified[ICD10: J44.9] Diagnosis: Testicular hypofunction[ICD10: E29.1] Leora Hollis MD, [facility] CPT-4: 87724 07/14/2017 ([id number]) 13700 EST. 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] Diagnosis: Mixed hyperlipidemia[ICD10: E78.2] Diagnosis: Hypoxemia[ICD10: R09.02] Leora Hollis MD, [facility] CPT-4: 13832 06/09/2017 ([id number]) 40732 EST. 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] Leora Hollis MD, [facility] CPT-4: 64631 04/28/2017 ([id number]) Miscellaneous no charge Diagnosis: Impacted cerumen, bilateral[ICD10: H61.23] [facility]: 57824 03/17/2017 ([id number]) OFFICE VISIT, NEW - LEVEL 4 Diagnosis: Mixed hyperlipidemia[ICD10: E78.2] Diagnosis: Chronic pain syndrome[ICD10: G89.4] Diagnosis: Presbycusis, bilateral[ICD10: H91.13] Diagnosis: Impacted cerumen, bilateral[ICD10: H61.23] Diagnosis: Atherosclerotic heart disease of [place] coronary artery without angina pectoris[ICD10: I25.10] Diagnosis: Personal history of other diseases of the circulatory system[ICD10: Z86.79] Leora Hollis MD, [facility] CPT-4: 94615 2017 Plan of Care Planned Activity Notes Codes Status Date Visit Plan: Spinal stenosis with back pain - refilled hydrocodone- keep appt with Business Process Specialist for treatment of stenosis of arteries, then pt most-likely to have surgical intervention of spine. PAD - pt will need surgical intervention with stenting. Testicular hypofunction - continue with testosterone. 03/10/2018 Appointment: Leora Hollis WPtel: [facility] (15 min) Moderate 03/10/2018 Patient Education: Patient Medication Summary Completed 03/10/2018 Patient Education: Back Pain Completed 03/10/2018 Patient Education: Cholesterol Management Completed 03/10/2018 Appointment: Leora Hollis WPtel: [facility] [place] (15 min) Moderate 03/09/2018 Appointment: Injection [...] allergy spray. 01/07/2018 Appointment: Sapphire Oneil WPtel: [address] [place] [address] (15 min) Moderate 01/07/2018 Patient Education: Patient [...] of plan. 12/22/2017 Appointment: Elise Castillo WPtel: [address] [place], [place] [phone] (15 min) Moderate 12/22/2017 Patient Education: Patient Medication Summary Completed 12/22/2017 Visit Plan: Neck and low back pain -will schedule MRI lumbar and cervical spine for further evaluation and proceed as indicated- patient verbalized understanding of plan. 12/15/2017 Appointment: Elise Castillo WPtel: [facility] [phone] (15 min) Moderate 12/15/2017 Patient Education: Patient Medication Summary Completed 12/15/2017 Patient Education: Back Pain Completed 12/15/2017 Care Plan: MRI LUMBAR SPINE W/O DYE LOINC : 75655-8 Pending 12/15/2017 Care Plan: MRI NECK SPINE W/O DYE LOINC : [id number] Pending 12/15/2017 Appointment: Injection 12/04/2017 Patient Education: [...] care surrogate. 11/27/2017 Appointment: Sapphire Oneil WPtel: [facility] [place] [place] [facility] - Annual Wellness Visit 11/27/2017 Patient Education: [...] sleep 11/17/2017 App[phone] (15 min) Moderate 11/17/2017 Patient Education: [...] allergy spray. 10/06/2017 Appointment: Leora Hollis WPtel: [phone] [facility] (15 min) Moderate 10/06/2017 Appointment: [place] Oneil [phone] [place] (15 min) [...] plan. 07/24/2017 Appointment: [place] Oneil [phone] [place] (30 min) [...] medications. 07/14/2017 Appointment: [phone] (15 min) Moderate 07/14/2017 Patient Education: Patient Medication Summary Completed 07/14/2017 Appointment: Le[facility] Holl[facility]el[phone] (15 min) Moderate 07/10/2017 Appointment: Injection [...] at night 06/09/2017 Appointment: [facility]el[phone] [place] (30 min) Complex 06/09/2017 Patient [...] of 15 04/28/2017 Appointment: Leora Hollis WPtel: [phone] [facility] (30 min) Complex 04/28/2017 Patient Education: [...] removal 03/14/2017 Appointment: Le[facility] Holl[facility]Ptel[phone] New Patient 03/14/2017 Patient Education: Patient Medication Summary Completed 03/14/2017 Instructions Comment REFER FOR PHYSICAL THERAPY AT [facility] -HE HAS A PT [...] pain - refilled hydrocodone- keep appt with Business 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
--- OUTSIDE RECORDS SUMMARY | 2018-06-12 09:32 | XMS REPORT | CCD ---
Author Author [facility] Organization [facility] Address [address] [place] [address] Phone Care Team Providers Care Chemical Dependency Counselor Name Role Phone PP Unavailable CCM Unavailable Summary Purpose Interface Exchange Insurance Providers Payer name Policy type / Coverage type Covered constitution party ID Effective Begin Date Effective End Date WPS Medicare Part B Medicare Part B [id number] 2017 Unknown [facility] Medicare Part B [id number] 2017 Unknown Family history Father Diagnosis Age At Onset Heart Attack Unknown Social History Social History Element Codes Description Effective Dates Marital status Unknown 03/14/2017 Number of children Unknown 2 03/14/[address]: 4014902 Former smoker Quit 11/03/00; smoke 1/2 pack/day x15 years 03/14/[address]: 745881727 Never drinks alcohol 03/14/2017 Allergies, Adverse Reactions, [...] Unknown 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 [...] Active 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 ICD-10: I25.10 03/14/2017 Active Chronic pain syndrome ICD-9: 338.4 ICD-10: G89.4 03/14/2017 Active Personal history of other diseases of the circulatory system ICD-9: V12.59 ICD-10: Z86.79 03/14/2017 Active Presbycusis, 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 03/14/2017 Active Medications Medication Codes Instructions Start Date Stop Date Status Fill Instructions hydrocodone 5 mg-acetaminophen 325 mg tablet RxNorm: 607180 1-2 Tablet(s) PO Q6 PRN 03/20/2018 04/18/2018 Active testosterone cypionate 200 mg/mL intramuscular oil RxNorm: 7020693 Milliliter(s) IM 03/06/2018 03/06/2018 Inactive testosterone cypionate 200 mg/mL intramuscular oil RxNorm: 3881862 Milliliter(s) IM 02/19/2018 02/19/2018 Inactive hydrocodone 5 mg-acetaminophen 325 mg tablet RxNorm: 141957 1-2 Tablet(s) PO Q6 PRN 02/18/2018 03/09/2018 Inactive zolpidem 5 mg tablet RxNorm: 083288 TAKE ONE TABLET BY MOUTH EVERY NIGHT AT BEDTIME NEEDED 02/13/2018 03/14/2018 Active meloxicam 15 mg tablet RxNorm: 154270 TAKE ONE TABLET BY MOUTH DAILY 02/13/2018 08/11/2018 Active testosterone cypionate 200 mg/mL intramuscular kit RxNorm: 167798 1/2 Milliliter(s ) IM [id number] 02/03/2018 08/01/2018 Active testosterone cypionate 200 mg/mL intramuscular oil RxNorm: 990046 Milliliter(s) IM 02/03/2018 02/03/2018 Inactive prednisone 20 mg tablet RxNorm: 388342 2 Tablet(s) PO QAM 01/0901/13/2018 Inactive cefdinir 300 mg capsule RxNorm: 899343 1 Capsule(s) PO BID 01/18/2018 Inactive prednisone 20 mg tablet RxNorm: 763231 2 Tablet(s) PO QAM 01/0901/08/2018 Inactive cefdinir 300 mg capsule RxNorm: 767609 1 Capsule(s) PO BID 01/08/2018 Inactive Zithromax Z-Timothy 250 mg tablet RxNorm: 406397 1 Tablet(s) PO UD 01/07/2018 No Stop Date Active Kenalog 40 mg/mL suspension for injection RxNorm: 9889163 Milliliter(s) Inj 01/07/2018 01/07/2018 Inactive ceftriaxone 500 mg solution for injection RxNorm: 7393345 Inj 01/07/2018 01/07/2018 Inactive testosterone cypionate 200 mg/mL intramuscular oil RxNorm: 852100 1/2 Milliliter(s ) IM 01/05/2018 01/05/2018 Inactive hydrocodone 5 mg-acetaminophen 325 mg tablet RxNorm: 612643 1-2 Tablet(s) PO Q6 PRN 12/22/2017 02/17/2018 Inactive zolpidem 5 mg tablet RxNorm: 322541 1 Tablet(s) PO 30 min before QHS 12/15/2017 02/12/2018 Inactive testosterone cypionate 200 mg/mL intramuscular oil RxNorm: 205293 Milliliter(s) IM 12/15/2017 12/15/2017 Inactive testosterone cypionate 200 mg/mL intramuscular oil RxNorm: 179894 1/2 Milliliter(s ) IM 12/04/2017 12/04/2017 Inactive testosterone cypionate 200 mg/mL intramuscular oil RxNorm: 418681 1/2 Milliliter(s ) IM 11/17/2017 11/17/2017 Inactive potassium chloride ER 10 mEq capsule,extended release RxNorm: 036813 TAKE ONE CAPSULE BY MOUTH DAILY 11/11/20172018 Active testosterone cypionate 200 mg/mL intramuscular oil RxNorm: 929874 Milliliter(s) IM 10/22/2017 10/22/2017 Inactive zolpidem 5 mg tablet RxNorm: 481442 1 Tablet(s) PO 30 min before QHS 10/15/2017 10/14/2017 Inactive zolpidem 5 mg tablet RxNorm: 373944 1 Tablet(s) PO 30 min before QHS 10/15/2017 12/13/2017 Inactive Zithromax Z-Timothy 250 mg tablet RxNorm: 930301 1 Tablet(s) PO UD 10/07/2017 11/16/2017 Inactive testosterone cypionate 200 mg/mL intramuscular oil RxNorm: 718950 Milliliter(s) IM 10/06/2017 10/06/2017 Inactive Kenalog 40 mg/mL suspension for injection RxNorm: 7607605 Milliliter(s) Inj 10/06/2017 10/06/2017 Inactive Zithromax Z-Timothy 250 mg tablet RxNorm: 043202 1 Tablet(s) PO UD 10/06/2017 10/06/2017 Inactive testosterone cypionate 200 mg/mL intramuscular oil RxNorm: 549551 Milliliter(s) IM 09/23/2017 09/23/2017 Inactive testosterone cypionate 200 mg/mL intramuscular kit RxNorm: 151294 1/2 Milliliter(s ) IM [id number] 08/28/2017 02/02/2018 Inactive meloxicam 15 mg tablet RxNorm: 679099 TAKE ONE TABLET BY MOUTH DAILY 08/28/2017 02/12/2018 Inactive testosterone cypionate 200 mg/mL intramuscular oil RxNorm: 898911 Milliliter(s) IM 08/28/2017 08/28/2017 Inactive testosterone cypionate 200 mg/mL intramuscular oil RxNorm: 208233 1/2 Milliliter(s ) IM 08/12/2017 08/12/2017 Inactive meloxicam 15 mg tablet RxNorm: 827554 1 Tablet(s) PO daily 08/201708/27/2017 Inactive atorvastatin 40 mg tablet RxNorm: 880224 TAKE ONE TABLET BY MOUTH DAILY 07/30/2017 02/24/2018 Inactive furosemide 40 mg tablet RxNorm: 862797 TAKE ONE TABLET BY MOUTH DAILY 07/30/2017 02/24/2018 Inactive testosterone cypionate 200 mg/mL intramuscular oil RxNorm: 478713 1/2 Milliliter(s ) IM 07/28/2017 07/28/2017 Inactive testosterone cypionate 200 mg/mL intramuscular oil RxNorm: 232394 1/2 Milliliter(s ) IM 07/14/2017 07/14/2017 Inactive testosterone cypionate 200 mg/mL intramuscular oil RxNorm: 755193 1/2 Milliliter(s ) IM 06/26/2017 06/26/2017 Inactive hydrocodone 5 mg-acetaminophen 325 mg tablet RxNorm: 683720 1 Tablet(s) PO QHS and 1 tab PO daily PRN pain 06/09/2017 Inactive hydrocodone 5 mg-acetaminophen 325 mg tablet RxNorm: 533555 1 Tablet(s) PO daily 06/09/2017 06/18/2017 Inactive testosterone cypionate 200 mg/mL intramuscular oil RxNorm: 178358 1/2 Milliliter(s ) IM 06/09/2017 06/09/2017 Inactive testosterone cypionate 200 mg/mL intramuscular oil RxNorm: 889043 Milliliter(s) IM 05/27/2017 05/27/2017 Inactive testosterone cypionate 200 mg/mL intramuscular oil RxNorm: 683844 Milliliter(s) IM 05/13/2017 05/13/2017 Inactive potassium chloride ER 10 mEq capsule,extended release RxNorm: 503900 1 Capsule(s) PO daily 05/07/2017 11/02/2017 Inactive Vitamin D2 50,000 unit capsule RxNorm: 964371 1 Capsule(s) PO QW 05/06/2017 05/05/2017 Inactive take with OTC vitamin d 2,000 units QD testosterone cypionate 200 mg/mL intramuscular kit RxNorm: 206106 1/2 kit IM 2 x month 05/06/2017 08/27/2017 Inactive Vitamin D2 50,000 unit capsule RxNorm: 651599 1 Capsule(s) PO QW 05/06/2017 08/03/2017 Inactive take with OTC vitamin d 2,000 units QD testosterone cypionate 200 mg/mL intramuscular oil RxNorm: 667423 1/2 Milliliter(s ) IM 04/29/2017 04/29/2017 Inactive fluorouracil 5 % topical cream RxNorm: 683818 1 Application TOP BID 04/28/2017 05/07/2017 Inactive testosterone cypionate 200 mg/mL intramuscular kit RxNorm: 535129 1/2 IM 2 x month 04/28/2017 05/05/2017 Inactive Pamelor 10 mg capsule RxNorm: 100804 1 Capsule(s) PO daily No Start Date Active gabapentin 300 mg capsule RxNorm: 436026 6 Capsule(s) PO daily No Start Date Active cyclobenzaprine 5 mg tablet RxNorm: 617319 1 Tablet(s) PO as needed No Start Date Active diclofenac 1 % topical gel RxNorm: 515135 1 Gram(s) TOP as needed No Start Date Active clopidogrel 75 mg tablet RxNorm: 328702 1 Tablet(s) PO daily No Start Date Active meloxicam 15 mg tablet RxNorm: 456013 1 Tablet(s) PO daily No Start Date 07/30/2017 Inactive potassium chloride ER 10 mEq tablet,extended release RxNorm: 900598 1 Tablet(s) PO daily No Start Date 05/06/2017 Inactive hydrocodone 5 mg-acetaminophen 325 mg tablet RxNorm: 834606 1 Tablet(s) PO daily No Start Date 06/08/2017 Inactive furosemide 40 mg tablet RxNorm: 620153 1 Tablet(s) PO daily No Start Date 07/29/2017 Inactive atorvastatin 40 mg tablet RxNorm: 984359 1 Tablet(s) PO QHS No Start Date 07/29/2017 Inactive Medication Administered Medication Codes Instructions Start Date Status testosterone cypionate 200 mg/mL intramuscular oil RxNorm: 2285984 Milliliter 03/06/2018 No longer Active testosterone cypionate 200 mg/mL intramuscular oil RxNorm: 6179024 Milliliter 02/19/2018 No longer Active testosterone cypionate 200 mg/mL intramuscular oil RxNorm: 007254 Milliliter 02/03/2018 No longer Active Kenalog 40 mg/mL suspension for injection RxNorm: 7147270 Milliliter 01/07/2018 No longer Active ceftriaxone 500 mg solution for injection RxNorm: 1002043 01/07/2018 No longer Active testosterone cypionate 200 mg/mL intramuscular oil RxNorm: 620567 /2Milliliter 01/05/2018 No longer Active testosterone cypionate 200 mg/mL intramuscular oil RxNorm: 767790 Milliliter 12/15/2017 No longer Active testosterone cypionate 200 mg/mL intramuscular oil RxNorm: 634934 /2Milliliter 12/04/2017 No longer Active testosterone cypionate 200 mg/mL intramuscular oil RxNorm: 896898 /2Milliliter 11/17/2017 No longer Active testosterone cypionate 200 mg/mL intramuscular oil RxNorm: 618769 Milliliter 10/22/2017 No longer Active testosterone cypionate 200 mg/mL intramuscular oil RxNorm: 699544 Milliliter 10/06/2017 No longer Active Kenalog 40 mg/mL suspension for injection RxNorm: 9928734 Milliliter 10/06/2017 No longer Active testosterone cypionate 200 mg/mL intramuscular oil RxNorm: 018166 Milliliter 09/23/2017 No longer Active testosterone cypionate 200 mg/mL intramuscular oil RxNorm: 459857 Milliliter 08/28/2017 No longer Active testosterone cypionate 200 mg/mL intramuscular oil RxNorm: 031723 /2Milliliter 08/12/2017 No longer Active testosterone cypionate 200 mg/mL intramuscular oil RxNorm: 907425 1/2Milliliter 07/28/2017 No longer Active testosterone cypionate 200 mg/mL intramuscular oil RxNorm: 105972 /2Milliliter 07/14/2017 No longer Active testosterone cypionate 200 mg/mL intramuscular oil RxNorm: 799210 /2Milliliter 06/26/2017 No longer Active testosterone cypionate 200 mg/mL intramuscular oil RxNorm: 870302 /2Milliliter 06/09/2017 No longer Active testosterone cypionate 200 mg/mL intramuscular oil RxNorm: 513602 Milliliter 05/27/2017 No longer Active testosterone cypionate 200 mg/mL intramuscular oil RxNorm: 194771 Milliliter 05/13/2017 No longer Active testosterone cypionate 200 mg/mL intramuscular oil RxNorm: 035753 /2Milliliter 04/29/2017 No longer Active Immunizations Vaccine [...] 03/17/2017 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 [...] Code Item Item Code Result Date Testosterone Slw932 Testo 375.1 ng/dL 03/02/2018 Cbc With Differential [...] 25.6 pg 03/02/2018 Cbc With Differential Ord2 [place]% 7.9 % 03/02/2018 Cbc With Differential Ord2 [...] 1.41 K/ul 03/02/2018 Cbc With Differential Ord2 [place] ABS# 0.8 K/ul 03/02/2018 Cbc With Differential Ord2 Eos ABS# 0.2 K/ul 03/02/2018 Cbc With Differential Ord2 Baso ABS# 0.1 K/ul 03/02/2018 Influenza A+B Kat054 Influ A+B Negative 01/08/2018 C A/B FLU [id number] Influenza A Scr TNP:Improper Specimen 01/07 C A/B FLU [id number] Influenza B Scr TNP:Improper Specimen 01/07 C A/B FLU [id number] IC OK? TNP:Improper Specimen 01/07/2018 C A/B FLU [id number] Influenza Intrp B AG: PRID:PT:NOSE:NOM:IF TNP:Improper Specimen 01/07/2018 Hepatic Few777 ALBUMIN 3.7 g/dL 08/06/2017 Hepatic Jvh384 TPRO 5.9 g/dL 08/06/2017 Hepatic Imy335 GLOB 2.2 g/dL 08/06/2017 Hepatic Tld539 A/G Ratio 1.7 Ratio 08/06/2017 Hepatic Sva097 ALK PHOS 46 U/L 08/06/2017 Hepatic Odk312 ALT(SGPT) 9 U/L 08/06/2017 Hepatic Ocb993 AST(SGOT) 13 U/L 08/06/2017 Hepatic Wrn265 BILI T 0.6 mg/dL 08/06/2017 Hepatic Goi860 BILI D 0.2 mg/dL 08/06/2017 Hepatic Lih378 BILI I 0.4 mg/dL 08/06/2017 Testosterone Rlo856 Testo 474.5 ng/dL 08/06/2017 Cbc With Differential [...] 28.5 pg 08/06/2017 Cbc With Differential Ord2 [place]% 11.2 % 08/06/2017 Cbc With Differential Ord2 [...] 1.33 K/ul 08/06/2017 Cbc With Differential Ord2 [place] ABS# 0.6 K/ul 08/06/2017 Cbc With Differential Ord2 Eos ABS# 0.3 K/ul 08/06/2017 Cbc With Differential Ord2 Baso ABS# 0.1 K/ul 08/06/2017 Comp Metabolic Xju157 NA 140 mEq/L 06/02/2017 Comp Metabolic Koo900 K 3.8 mEq/L 06/02/2017 Comp Metabolic Gzp680 CL 102 mEq/L 06/02/2017 Comp Metabolic Xfe186 CO2 30.0 mEq/L 06/02/2017 Comp Metabolic Fuk159 ANION GAP 12 06/02/2017 Comp Metabolic Yvh468 GLUCOSE 100 mg/dL 06/02/2017 Comp Metabolic Mxs673 Creat 1.1 mg/dL 06/02/2017 Comp Metabolic Fke077 eGFR 69 ml/min/1.73m2 06/02/2017 Comp Metabolic Xua261 BUN 15 mg/dL 06/02/2017 Comp Metabolic Ydk170 B/C Ratio 13.4 Ratio 06/02/2017 Comp Metabolic Gzc820 CALCIUM 8.6 mg/dL 06/02/2017 Comp Metabolic Une351 ALK PHOS 63 U/L 06/02/2017 Comp Metabolic Unz502 AST(SGOT) 17 U/L 06/02/2017 Comp Metabolic Fko027 ALT(SGPT) 12 U/L 06/02/2017 Comp Metabolic Pbr026 BILI T 0.5 mg/dL 06/02/2017 Comp Metabolic Ryu586 ALBUMIN 3.9 g/dL 06/02/2017 Comp Metabolic Hcb307 TPRO 6.1 g/dL 06/02/2017 Comp Metabolic Cub646 GLOB 2.2 g/dL 06/02/2017 Comp Metabolic Rzy915 A/G Ratio 1.8 Ratio 06/02/2017 Comp Metabolic Fat045 Osmo 280 mOsmo 06/02/2017 Vitamin D 25 Oh Xka5725 VITAMIN D, 25 HYDROXY 40.03 ng/mL Cbc [...] 93.0 fl 06/02/2017 Cbc With Differential Ord2 [place]% 10.5 % 06/02/2017 Cbc With Differential Ord2 [...] 1.52 K/ul 06/02/2017 Cbc With Differential Ord2 [place] ABS# 0.6 K/ul 06/02/2017 Cbc With Differential Ord2 Eos ABS# 0.2 K/ul 06/02/2017 Cbc With Differential Ord2 Baso ABS# 0.1 K/ul 06/02/2017 Testosterone Itb439 Testo 198.4 ng/dL 04/29/2017 Vitamin D 25 Oh Xcg5953 VITAMIN D, 25 HYDROXY 29.25 ng/mL Lipid [...] benign 07/14/2017 None Full Exam - General 1995 Ears/Nose/Throat oral cavity/pharynx/larynx Overall: no masses 07/14/2017 [...] Procedure Codes Date THER/PROPH/DIAG INJ SC/IM CPT-4: 55179 03/06/2018 THER/PROPH/DIAG INJ SC/IM CPT-4: 64029 02/19/2018 THER/PROPH/DIAG INJ SC/IM CPT-4: 62904 02/03/2018 THER/PROPH/DIAG INJ SC/IM CPT-4: 84170 01/07/2018 TRIAMCINOLONE ACET INJ NOS CPT-4: J3301 01/07/2018 ROCEPHIN, PER 250 MG CPT-4: J0696 01/07/2018 THER/PROPH/DIAG INJ SC/IM CPT-4: 93655 01/05/2018 THER/PROPH/DIAG INJ SC/IM CPT-4: 97391 12/15/2017 THER/PROPH/DIAG INJ SC/IM CPT-4: 13947 12/04/2017 PPPS, SUBSEQ VISIT CPT -4: G0439 11/27/2017 ADMIN INFLUENZA VIRUS VAC CPT-4: G0008 11/17/2017 FLU VAC NO PRSV 4 FATOU 3 YRS+ CPT-4: 08632 11/17/2017 THER/PROPH/DIAG INJ SC/IM CPT-4: 37006 11/17/2017 THER/PROPH/DIAG INJ SC/IM CPT-4: 02949 10/22/2017 THER/PROPH/DIAG INJ SC/IM CPT-4: 23539 10/06/2017 TRIAMCINOLONE ACET INJ NOS CPT-4: J3301 10/06/2017 THER/PROPH/DIAG INJ SC/IM CPT-4: 23949 09/23/2017 THER/PROPH/DIAG INJ SC/IM CPT-4: 35644 08/28/2017 THER/PROPH/DIAG INJ SC/IM CPT-4: 17713 08/12/2017 THER/PROPH/DIAG INJ SC/IM CPT-4: 93400 07/28/2017 THER/PROPH/DIAG INJ SC/IM CPT-4: 37703 07/14/2017 THER/PROPH/DIAG INJ SC/IM CPT-4: 11990 06/26/2017 THER/PROPH/DIAG INJ SC/IM CPT-4: 88282 06/09/2017 THER/PROPH/DIAG INJ SC/IM CPT-4: 41445 05/27/2017 THER/PROPH/DIAG INJ SC/IM CPT-4: 80230 05/13/2017 THER/PROPH/DIAG INJ SC/IM CPT-4: 40287 04/29/2017 Vital Signs Date Vital 03/10/2018 Blood Pressure 1: 120/70 Code : 8480-6 BMI: 29.0 Code : 62869-1 Heart Rate 1 : 82 bpm Height: 5'10" SpO2: 95% Weight: 202 lbs 01/07/2018 Blood Pressure 1: 126/66 Code : 8480-6 BMI: 30.1 Code : 72443-8 Heart Rate 1 : 75 bpm Height: 5'10" SpO2: 97% Temperature: 36.5 (C) / 97.7 (F) Weight: 210 lbs 12/22/2017 Blood Pressure 1: 124/70 Code : 8480-6 BMI: 29.7 Code : 68767-9 Heart Rate 1 : 84 bpm Height: 5'10" SpO2: 94% Weight: 207 lbs 12/15/2017 Blood Pressure 1: 122/82 Code : 8480-6 BMI: 30.0 Code : 81573-5 Heart Rate 1 : 82 bpm Height: 5'10" SpO2: 93% Weight: 209 lbs 11/27/2017 Blood Pressure 1: 132/68 Code : 8480-6 BMI: 29.3 Code : 63222-8 Heart Rate 1 : 71 bpm Height: 5'10" SpO2: 97% Waist Measure (cm): 97 cm Weight: 204 lbs 11/17/2017 Blood Pressure 1: 130/80 Code : 8480-6 BMI: 29.3 Code : 73305-5 Heart Rate 1 : 73 bpm Height: 5'10" SpO2: 99% Weight: 204 lbs 10/06/2017 Blood Pressure 1: 124/60 Code : 8480-6 BMI: 28.8 Code : 91369-0 Heart Rate 1 : 70 bpm Height: 5'10" SpO2: 98% Weight: 201 lbs 07/24/2017 Blood Pressure 1: 118/70 Code : 8480-6 BMI: 29.3 Code : 66753-4 Heart Rate 1 : 82 bpm Height: 5'10" SpO2: 96% Weight: 204 lbs 07/14/2017 Blood Pressure 1: 118/72 Code : 8480-6 BMI: 29.1 Code : 61770-0 Heart Rate 1 : 83 bpm Height: 5'10" SpO2: 98% Weight: 203 lbs 06/09/2017 Blood Pressure 1: 120/74 Code : 8480-6 BMI: 29.3 Code : 65916-0 Heart Rate 1 : 91 bpm Height: 5'10" SpO2: 99% Weight: 204 lbs 04/28/2017 Blood Pressure 1: 118/68 Code : 8480-6 BMI: 28.8 Code : 19197-5 Heart Rate 1 : 74 bpm Height: 5'10" SpO2: 96% Weight: 201 lbs 03/14/2017 Blood Pressure 1: 114/74 Code : 8480-6 BMI: 28.6 Code : 99598-4 Heart Rate 1 : 77 bpm Height: [...] data Encounters Encounter Performer Location Codes Date ([id number]) [id number] EST. 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 PATIENT, LEVEL III Diagnosis: Other malaise[ICD10: R53.81] Diagnosis: Acute laryngopharyngitis[ICD10: J06.0] Diagnosis: Other allergic rhinitis[ICD10: J30.89] Sapphire Hollis MD, [facility] CPT-4: 05452 01/07/2018 [id number]) [id number] EST. PATIENT, LEVEL III Diagnosis: Spinal stenosis, lumbosacral region[ICD10: M48.07] Diagnosis: Spinal stenosis, cervical region[ICD10: M48.02] Elise Hollis MD, [facility] CPT-4: 80185 12/22/2017 [id number] [id number] EST. 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 PATIENT, LEVEL III Diagnosis: Mixed hyperlipidemia[ICD10: E78.2] Diagnosis: Other insomnia[ICD10: G47.09] Leora Hollis MD, [facility] CPT- 4: 18337 11/17/2017 [id number] EST. PATIENT, LEVEL III Diagnosis: Acute laryngopharyngitis[ICD10: J06.0] Diagnosis: Other allergic rhinitis[ICD10: J30.89] Sapphire Hollis MD, [facility] CPT-4: 81307 10/06/2017 [id number] EST. PATIENT, LEVEL III Diagnosis: Pain in left shoulder[ICD10: M25.512] Sapphire Hollis MD, [facility] CPT-4: 19031 07/24/2017 ([id number]) 73763 EST. 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] Leora Hollis MD, [facility] CPT-4: 65953 04/28/2017 ([id number]) Miscellaneous no charge Diagnosis: Impacted cerumen, bilateral[ICD10: H61.23] Leora Hollis MD, [facility] CPT-4: 66492 03/17/2017 ([id number]) OFFICE VISIT, NEW - LEVEL 4 Diagnosis: Mixed hyperlipidemia[ICD10: E78.2] Diagnosis: Chronic pain syndrome[ICD10: G89.4] Diagnosis: Presbycusis, bilateral[ICD10: H91.13] Diagnosis: Impacted cerumen, bilateral[ICD10: H61.23] 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 PAD - pt will need surgical intervention with stenting. Testicular hypofunction - continue with testosterone. 03/10/2018 Patient Education: Patient Medication Summary Completed 03/10/2018 Patient Education: Back Pain Completed 03/10/2018 Patient Education: Cholesterol Management Completed 03/10/2018 [facility] [phone] [facility] (15 min) Moderate 03/09/2018 Appointment: Nurse Visit 03/06/2018 Patient Education: Patient Medication Summary Completed [...] allergy spray. 01/07/2018 Appointment: Sapphire Oneil [facility]Ptel[facility] [place] (15 min) Moderate 01/07/2018 Patient [...] of plan. 12/22/2017 Appointment: Elise Castillo [facility]Ptel[facility] [phone] (15 min) Moderate 12/22/2017 Patient Education: Patient Medication Summary Completed 12/22/2017 Visit Plan: Neck and low back pain -will schedule MRI lumbar and cervical spine for further evaluation and proceed as indicated- patient verbalized understanding of plan. 12/15/2017 [facility]: [facility] [phone] [phone] [place] (15 min) Moderate 12/15/2017 Patient Education: Patient Medication Summary Completed 12/15/2017 Patient Education: Back Pain Completed 12/15/2017 Care Plan: MRI LUMBAR SPINE W/O DYE LOINC : 19469-7 Pending 12/15/2017 Care Plan: MRI NECK SPINE W/O DYE LOINC : 40879-8 Pending 12/15/2017 Appointment: Injection 12/04/2017 Patient Education: [...] 11/27/2017 Appointment: Sapphire Oneil WPtel: [phone] [facility] [facility] - Annual Wellness Visit 11/27/2017 Patient [...] sleep 11/17/2017 Appointment: [facility] [phone] [facility] (15 min) Moderate 11/17/2017 Patient Education: [...] spray. 10/06/2017 Appointment: Leora Hollis WPtel: [phone] [facility] (15 min) Moderate 10/06/2017 Appointment: Sapphire Oneil WPtel: [phone] [facility] (15 min) Moderate 10/06/2017 Patient Education: Patient [...] plan. 07/24/2017 Appointment: [facility]hire Oneil [facility] [phone] [facility] (30 min) Complex 07/24/2017 Patient [...] medications. 07/14/2017 App[facility]ment: [facility] [phone] [facility] (15 min) Moderate 07/14/2017 Patient Education: Patient Medication Summary Completed 07/14/2017 App[facility]ment: [facility] [phone] [facility] (15 min) Moderate 07/10/2017 Appointment: Injection [...] night 06/09/2017 Appointment: [facility] [phone] [facility] (30 min) Complex 06/09/2017 Patient Education: [...] 15 04/28/2017 Appointment: [facility] [phone] [facility] (30 min) Complex 04/28/2017 Patient Education: [...] wax removal 03/14/2017 Appointment: Leora Hollis WPtel: [address] [place], [place] [address] New Patient 03/14/2017 Patient Education: Patient Medication Summary Completed 03/14/2017 Instructions Comment . Spinal stenosis with back pain - refilled hydrocodone- keep appt with Oral Surgery Assistant for treatment of stenosis of arteries, then pt most- likely to have surgical intervention of spine. PAD - pt will need surgical intervention with stenting. Testicular hypofunction - continue with testosterone. REFER FOR PHYSICAL THERAPY [facility] -HE HAS A PT HE HAS SEEN THERE BEFORE KEEP APPT WITH DR STEWARD . Cervical and lumbar stenosis -refer for PT to evaluate and treat -follow up with DR Steward as scheduled -refill hydrocodone for prn use only -discussed with patient that he is to use it for breakthrough pain only -patient verbalized understanding of plan. . URI - Pt advised to increase [...] change in the current treatment plan. . Hypogonadism - pt has hx of [...] for oxygen concentrator with humidification at night for insomnia - I recommend Extended Release [...]
--- OUTSIDE RECORDS SUMMARY | 2018-06-12 09:34 | XMS REPORT | CCD ---
Author Author [facility] Organization [facility] Address [address] [place] [address] Phone Care Team Providers Care Etl Data Architect Name Role Phone PP Unavailable CCM Unavailable Summary Purpose Interface Exchange Insurance Providers Payer name Policy type / Coverage type Covered alliance party ID Effective Begin Date Effective End Date WPS Medicare Part B Medicare Part B [id number] 2017 Unknown [facility] Medicare Part B [id number] 2017 Unknown Family history Father Diagnosis Age At Onset Heart Attack Unknown Social History Social History Element Codes Description Effective Dates Marital status Unknown 03/14/2017 Number of children Unknown 2 03/14/[address]: 7696176 Former smoker Quit 11/03/00; smoke 1/2 pack/day x15 years 03/14/[address]: 520027578 Never drinks alcohol 03/14/2017 Allergies, Adverse Reactions, [...] ICD-9: 723.0 ICD-10: M48.02 Active 12/22/2017 Unknown Spinal stenosis, lumbosacral region ICD-9: 724.02 ICD-10: M48.07 Active 12/22/2017 Unknown Cervicalgia ICD-9: 723.1 ICD-10: M54.2 Active 12/15/2017 Unknown Low back pain ICD-9: 724.2 ICD-10: M54.5 Active 12/15/2017 Unknown Encounter for general adult medical examination with abnormal findings ICD-9: V70.0 ICD-10: Z00.01 Active 11/27/2017 Unknown Encounter for immunization ICD-9: V04.81 ICD-10: Z23 Active 11/17/2017 Unknown Mixed hyperlipidemia ICD-9: 272.2 ICD-10: E78.2 Active 03/14/2017 Unknown Other insomnia ICD-9: 327.09 ICD-10: G47.09 [...] Active 03/14/2017 Unknown Atherosclerotic heart disease of resighini coronary artery without angina pectoris ICD-9: 414.00 [...] region ICD-9: 723.0 ICD-10: M48.02 12/22/2017 Active Spinal stenosis, lumbosacral region ICD-9: 724.02 ICD-10: M48.07 12/22/2017 Active Cervicalgia ICD-9: 723.1 ICD-10: M54.2 12/15/2017 Active Low back pain ICD-9: 724.2 ICD-10: M54.5 12/15/2017 Active Encounter for general adult medical examination with abnormal findings ICD-9: V70.0 ICD-10: Z00.01 11/27/2017 Active Encounter for immunization ICD-9: V04.81 ICD-10: Z23 11/17/2017 Active Mixed hyperlipidemia ICD-9: 272.2 ICD-10: E78.2 03/14/2017 Active Other insomnia ICD-9: 327.09 ICD-10: G47.09 [...] H61.23 03/14/2017 Active Atherosclerotic heart disease of resighini coronary artery without angina pectoris ICD-9: 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 ICD-10: I25.10 03/14/2017 Active Chronic pain syndrome ICD-9: 338.4 ICD-10: G89.4 03/14/2017 Active Personal history of other diseases of the circulatory system ICD-9: V12.59 ICD-10: Z86.79 03/14/2017 Active Presbycusis, 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 03/14/2017 Active Medications Medication Codes Instructions Start Date Stop Date Status Fill Instructions testosterone cypionate 200 mg/mL intramuscular oil RxNorm: 8439117 Milliliter(s) IM 03/06/2018 03/06/2018 Inactive testosterone cypionate 200 mg/mL intramuscular oil RxNorm: 7255214 Milliliter(s) IM 02/19/2018 02/19/2018 Inactive hydrocodone 5 mg-acetaminophen 325 mg tablet RxNorm: 433236 1-2 Tablet(s) PO Q6 PRN 02/18/2018 04/18/2018 Active zolpidem 5 mg tablet RxNorm: 659412 TAKE ONE TABLET BY MOUTH EVERY NIGHT AT BEDTIME NEEDED 02/13/2018 03/14/2018 Active meloxicam 15 mg tablet RxNorm: 274742 TAKE ONE TABLET BY MOUTH DAILY 02/13/2018 08/11/2018 Active testosterone cypionate 200 mg/mL intramuscular kit RxNorm: 599763 1/2 Milliliter(s ) IM [id number] 02/03/2018 08/01/2018 Active testosterone cypionate 200 mg/mL intramuscular oil RxNorm: 549957 Milliliter(s) IM 02/03/2018 02/03/2018 Inactive prednisone 20 mg tablet RxNorm: 660240 2 Tablet(s) PO QAM 01/0901/13/2018 Inactive cefdinir 300 mg capsule RxNorm: 211898 1 Capsule(s) PO BID 01/18/2018 Inactive prednisone 20 mg tablet RxNorm: 511831 2 Tablet(s) PO QAM 01/0901/08/2018 Inactive cefdinir 300 mg capsule RxNorm: 939024 1 Capsule(s) PO BID 01/08/2018 Inactive Zithromax Z-Timothy 250 mg tablet RxNorm: 908016 1 Tablet(s) PO UD 01/07/2018 No Stop Date Active Kenalog 40 mg/mL suspension for injection RxNorm: 1415444 Milliliter(s) Inj 01/07/2018 01/07/2018 Inactive ceftriaxone 500 mg solution for injection RxNorm: 1426931 Inj 01/07/2018 01/07/2018 Inactive testosterone cypionate 200 mg/mL intramuscular oil RxNorm: 773388 1/2 Milliliter(s ) IM 01/05/2018 01/05/2018 Inactive hydrocodone 5 mg-acetaminophen 325 mg tablet RxNorm: 444785 1-2 Tablet(s) PO Q6 PRN 12/22/2017 02/17/2018 Inactive zolpidem 5 mg tablet RxNorm: 138356 1 Tablet(s) PO 30 min before QHS 12/15/2017 02/12/2018 Inactive testosterone cypionate 200 mg/mL intramuscular oil RxNorm: 202153 Milliliter(s) IM 12/15/2017 12/15/2017 Inactive testosterone cypionate 200 mg/mL intramuscular oil RxNorm: 827333 1/2 Milliliter(s ) IM 12/04/2017 12/04/2017 Inactive testosterone cypionate 200 mg/mL intramuscular oil RxNorm: 982066 1/2 Milliliter(s ) IM 11/17/2017 11/17/2017 Inactive potassium chloride ER 10 mEq capsule,extended release RxNorm: 523473 TAKE ONE CAPSULE BY MOUTH DAILY 11/11/20172018 Active testosterone cypionate 200 mg/mL intramuscular oil RxNorm: 488684 Milliliter(s) IM 10/22/2017 10/22/2017 Inactive zolpidem 5 mg tablet RxNorm: 989177 1 Tablet(s) PO 30 min before QHS 10/15/2017 10/14/2017 Inactive zolpidem 5 mg tablet RxNorm: 678898 1 Tablet(s) PO 30 min before QHS 10/15/2017 12/13/2017 Inactive Zithromax Z-Timothy 250 mg tablet RxNorm: 949085 1 Tablet(s) PO UD 10/07/2017 11/16/2017 Inactive testosterone cypionate 200 mg/mL intramuscular oil RxNorm: 138565 Milliliter(s) IM 10/06/2017 10/06/2017 Inactive Kenalog 40 mg/mL suspension for injection RxNorm: 0051553 Milliliter(s) Inj 10/06/2017 10/06/2017 Inactive Zithromax Z-Timothy 250 mg tablet RxNorm: 545736 1 Tablet(s) PO UD 10/06/2017 10/06/2017 Inactive testosterone cypionate 200 mg/mL intramuscular oil RxNorm: 490975 Milliliter(s) IM 09/23/2017 09/23/2017 Inactive testosterone cypionate 200 mg/mL intramuscular kit RxNorm: 378909 1/2 Milliliter(s ) IM [id number] 08/28/2017 02/02/2018 Inactive meloxicam 15 mg tablet RxNorm: 192728 TAKE ONE TABLET BY MOUTH DAILY 08/28/2017 02/12/2018 Inactive testosterone cypionate 200 mg/mL intramuscular oil RxNorm: 225437 Milliliter(s) IM 08/28/2017 08/28/2017 Inactive testosterone cypionate 200 mg/mL intramuscular oil RxNorm: 959457 1/2 Milliliter(s ) IM 08/12/2017 08/12/2017 Inactive meloxicam 15 mg tablet RxNorm: 015411 1 Tablet(s) PO daily 08/201708/27/2017 Inactive atorvastatin 40 mg tablet RxNorm: 597934 TAKE ONE TABLET BY MOUTH DAILY 07/30/2017 02/24/2018 Inactive furosemide 40 mg tablet RxNorm: 008269 TAKE ONE TABLET BY MOUTH DAILY 07/30/2017 02/24/2018 Inactive testosterone cypionate 200 mg/mL intramuscular oil RxNorm: 159053 1/2 Milliliter(s ) IM 07/28/2017 07/28/2017 Inactive testosterone cypionate 200 mg/mL intramuscular oil RxNorm: 647749 1/2 Milliliter(s ) IM 07/14/2017 07/14/2017 Inactive testosterone cypionate 200 mg/mL intramuscular oil RxNorm: 254929 1/2 Milliliter(s ) IM 06/26/2017 06/26/2017 Inactive hydrocodone 5 mg-acetaminophen 325 mg tablet RxNorm: 185522 1 Tablet(s) PO QHS and 1 tab PO daily PRN pain 06/09/2017 Inactive hydrocodone 5 mg-acetaminophen 325 mg tablet RxNorm: 650217 1 Tablet(s) PO daily 06/09/2017 06/18/2017 Inactive testosterone cypionate 200 mg/mL intramuscular oil RxNorm: 828185 1/2 Milliliter(s ) IM 06/09/2017 06/09/2017 Inactive testosterone cypionate 200 mg/mL intramuscular oil RxNorm: 092461 Milliliter(s) IM 05/27/2017 05/27/2017 Inactive testosterone cypionate 200 mg/mL intramuscular oil RxNorm: 410277 Milliliter(s) IM 05/13/2017 05/13/2017 Inactive potassium chloride ER 10 mEq capsule,extended release RxNorm: 493995 1 Capsule(s) PO daily 05/07/2017 11/02/2017 Inactive Vitamin D2 50,000 unit capsule RxNorm: 641296 1 Capsule(s) PO QW 05/06/2017 05/05/2017 Inactive take with OTC vitamin d 2,000 units QD testosterone cypionate 200 mg/mL intramuscular kit RxNorm: 687190 1/2 kit IM 2 x month 05/06/2017 08/27/2017 Inactive Vitamin D2 50,000 unit capsule RxNorm: 026015 1 Capsule(s) PO QW 05/06/2017 08/03/2017 Inactive take with OTC vitamin d 2,000 units QD testosterone cypionate 200 mg/mL intramuscular oil RxNorm: 252901 1/2 Milliliter(s ) IM 04/29/2017 04/29/2017 Inactive fluorouracil 5 % topical cream RxNorm: 064509 1 Application TOP BID 04/28/2017 05/07/2017 Inactive testosterone cypionate 200 mg/mL intramuscular kit RxNorm: 014814 1/2 IM 2 x month 04/28/2017 05/05/2017 Inactive Pamelor 10 mg capsule RxNorm: 849960 1 Capsule(s) PO daily No Start Date Active gabapentin 300 mg capsule RxNorm: 241664 6 Capsule(s) PO daily No Start Date Active cyclobenzaprine 5 mg tablet RxNorm: 786970 1 Tablet(s) PO as needed No Start Date Active diclofenac 1 % topical gel RxNorm: 611356 1 Gram(s) TOP as needed No Start Date Active clopidogrel 75 mg tablet RxNorm: 678335 1 Tablet(s) PO daily No Start Date Active meloxicam 15 mg tablet RxNorm: 762531 1 Tablet(s) PO daily No Start Date 07/30/2017 Inactive potassium chloride ER 10 mEq tablet,extended release RxNorm: 144227 1 Tablet(s) PO daily No Start Date 05/06/2017 Inactive hydrocodone 5 mg-acetaminophen 325 mg tablet RxNorm: 398670 1 Tablet(s) PO daily No Start Date 06/08/2017 Inactive furosemide 40 mg tablet RxNorm: 521755 1 Tablet(s) PO daily No Start Date 07/29/2017 Inactive atorvastatin 40 mg tablet RxNorm: 114297 1 Tablet(s) PO QHS No Start Date 07/29/2017 Inactive Medication Administered Medication Codes Instructions Start Date Status testosterone cypionate 200 mg/mL intramuscular oil RxNorm: 1886195 Milliliter 03/06/2018 Active testosterone cypionate 200 mg/mL intramuscular oil RxNorm: 5759529 Milliliter 02/19/2018 No longer Active testosterone cypionate 200 mg/mL intramuscular oil RxNorm: 332438 Milliliter 02/03/2018 No longer Active Kenalog 40 mg/mL suspension for injection RxNorm: 4074415 Milliliter 01/07/2018 No longer Active ceftriaxone 500 mg solution for injection RxNorm: 9939867 01/07/2018 No longer Active testosterone cypionate 200 mg/mL intramuscular oil RxNorm: 216818 /2Milliliter 01/05/2018 No longer Active testosterone cypionate 200 mg/mL intramuscular oil RxNorm: 717574 Milliliter 12/15/2017 No longer Active testosterone cypionate 200 mg/mL intramuscular oil RxNorm: 310386 /2Milliliter 12/04/2017 No longer Active testosterone cypionate 200 mg/mL intramuscular oil RxNorm: 485841 /2Milliliter 11/17/2017 No longer Active testosterone cypionate 200 mg/mL intramuscular oil RxNorm: 922416 Milliliter 10/22/2017 No longer Active Kenalog 40 mg/mL suspension for injection RxNorm: 5416227 Milliliter 10/06/2017 No longer Active testosterone cypionate 200 mg/mL intramuscular oil RxNorm: 775257 Milliliter 10/06/2017 No longer Active testosterone cypionate 200 mg/mL intramuscular oil RxNorm: 012467 Milliliter 09/23/2017 No longer Active testosterone cypionate 200 mg/mL intramuscular oil RxNorm: 662057 Milliliter 08/28/2017 No longer Active testosterone cypionate 200 mg/mL intramuscular oil RxNorm: 685830 /2Milliliter 08/12/2017 No longer Active testosterone cypionate 200 mg/mL intramuscular oil RxNorm: 307954 /2Milliliter 07/28/2017 No longer Active testosterone cypionate 200 mg/mL intramuscular oil RxNorm: 325160 1/2Milliliter 07/14/2017 No longer Active testosterone cypionate 200 mg/mL intramuscular oil RxNorm: 474092 /2Milliliter 06/26/2017 No longer Active testosterone cypionate 200 mg/mL intramuscular oil RxNorm: 536499 1/2Milliliter 06/09/2017 No longer Active testosterone cypionate 200 mg/mL intramuscular oil RxNorm: 520741 Milliliter 05/27/2017 No longer Active testosterone cypionate 200 mg/mL intramuscular oil RxNorm: 335225 Milliliter 05/13/2017 No longer Active testosterone cypionate 200 mg/mL intramuscular oil RxNorm: 909932 /2Milliliter 04/29/2017 No longer Active Immunizations Vaccine Codes Date Status Influenza CVX: 141 11/17/2017 completed Assessments Condition Codes Effective Dates 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 ICD-9: 257.2 03/06/2018 Other malaise ICD-10: R53.81 ICD-9: 780.79 01/07/2018 Acute laryngopharyngitis ICD-10: J06.0 ICD-9: 465.0 01/07/2018 Other allergic rhinitis ICD-10: J30.89 ICD-9: 477.8 01/07/2018 Spinal stenosis, cervical region ICD-10: M48.02 ICD-9: 723.0 12/22/2017 Spinal stenosis, lumbosacral region ICD-10: M48.07 ICD-9: 724.02 12/22/2017 Cervicalgia ICD-10: M54.2 ICD-9: 723.1 12/15/2017 Low back pain ICD-10: M54.5 ICD-9: 724.2 12/15/2017 Encounter for general adult medical examination with abnormal findings ICD-10: Z00.01 ICD-9: V70.0 11/27/2017 Mixed hyperlipidemia ICD-10: E78.2 ICD-9: 272.2 11/17/2017 Encounter for immunization ICD-10: Z23 ICD-9: V04.81 [...] ICD-9: 380.4 03/17/2017 Atherosclerotic heart disease of resighini coronary artery without angina pectoris ICD-10: I25.10 ICD-9: 414.00 03/14/2017 Chronic pain syndrome ICD-10: G89.4 ICD-9: 338.4 03/14/2017 Personal history of other diseases of the circulatory system ICD-10: Z86.79 ICD-9: V12.59 03/14/2017 Presbycusis, bilateral ICD-10: H91.13 ICD-9: 388.01 03/14/2017 Reason For Visit Reason For Visit Effective Dates Notes sinus congestion 01/07/2018 back pain 12/22/2017 back pain 12/15/2017 Annual Medicare Wellness Exam 11/27/2017 shoulder pain 11/17/2017 sinus congestion 10/06/2017 shoulder pain 07/24/2017 abnormal test results 07/14/2017 fatigue 06/09/2017 fatigue 04/28/2017 hyperlipidemia 03/14/2017 R ear Results Observation Observation Code Item Item Code Result Date Testosterone Epk136 Testo 375.1 ng/dL 03/02/2018 Cbc With Differential [...] 25.6 pg 03/02/2018 Cbc With Differential Ord2 [place]% 7.9 % 03/02/2018 Cbc With Differential Ord2 [...] 1.41 K/ul 03/02/2018 Cbc With Differential Ord2 [place] ABS# 0.8 K/ul 03/02/2018 Cbc With Differential Ord2 Eos ABS# 0.2 K/ul 03/02/2018 Cbc With Differential Ord2 Baso ABS# 0.1 K/ul 03/02/2018 Influenza A+B Nif009 Influ A+B Negative 01/08/2018 C A/B FLU 5776018 Influenza A Scr TNP:Improper Specimen 01/07 C A/B FLU 5674302 Influenza B Scr TNP:Improper Specimen 01/07 C A/B FLU [id number] Influenza Intrp B AG: PRID:PT:NOSE:NOM:IF TNP:Improper Specimen 01/07/2018 C A/B FLU [id number] IC OK? TNP:Improper Specimen 01/07/2018 Hepatic Jnp107 ALBUMIN 3.7 g/dL 08/06/2017 Hepatic Kdg891 TPRO 5.9 g/dL 08/06/2017 Hepatic Yyn286 GLOB 2.2 g/dL 08/06/2017 Hepatic Sxo680 A/G Ratio 1.7 Ratio 08/06/2017 Hepatic Nzl472 ALK PHOS 46 U/L 08/06/2017 Hepatic Ggc913 ALT(SGPT) 9 U/L 08/06/2017 Hepatic Xot201 AST(SGOT) 13 U/L 08/06/2017 Hepatic Hdv643 BILI T 0.6 mg/dL 08/06/2017 Hepatic Dij739 BILI D 0.2 mg/dL 08/06/2017 Hepatic Zlb638 BILI I 0.4 mg/dL 08/06/2017 Testosterone Cot718 Testo 474.5 ng/dL 08/06/2017 Cbc With Differential [...] 28.5 pg 08/06/2017 Cbc With Differential Ord2 [place]% 11.2 % 08/06/2017 Cbc With Differential Ord2 [...] 1.33 K/ul 08/06/2017 Cbc With Differential Ord2 [place] ABS# 0.6 K/ul 08/06/2017 Cbc With Differential Ord2 Eos ABS# 0.3 K/ul 08/06/2017 Cbc With Differential Ord2 Baso ABS# 0.1 K/ul 08/06/2017 Comp Metabolic Czk657 NA 140 mEq/L 06/02/2017 Comp Metabolic Bey011 K 3.8 mEq/L 06/02/2017 Comp Metabolic Rto538 CL 102 mEq/L 06/02/2017 Comp Metabolic Due856 CO2 30.0 mEq/L 06/02/2017 Comp Metabolic Jzt290 ANION GAP 12 06/02/2017 Comp Metabolic Qbn638 GLUCOSE 100 mg/dL 06/02/2017 Comp Metabolic Vlq384 Creat 1.1 mg/dL 06/02/2017 Comp Metabolic Rmt936 eGFR 69 ml/min/1.73m2 06/02/2017 Comp Metabolic Etr337 BUN 15 mg/dL 06/02/2017 Comp Metabolic Vli059 B/C Ratio 13.4 Ratio 06/02/2017 Comp Metabolic Wfy300 CALCIUM 8.6 mg/dL 06/02/2017 Comp Metabolic Bgm613 ALK PHOS 63 U/L 06/02/2017 Comp Metabolic Suf967 AST(SGOT) 17 U/L 06/02/2017 Comp Metabolic Wvc626 ALT(SGPT) 12 U/L 06/02/2017 Comp Metabolic Uao047 BILI T 0.5 mg/dL 06/02/2017 Comp Metabolic Dkz196 ALBUMIN 3.9 g/dL 06/02/2017 Comp Metabolic Kpm467 TPRO 6.1 g/dL 06/02/2017 Comp Metabolic Hiu348 GLOB 2.2 g/dL 06/02/2017 Comp Metabolic Dcp645 A/G Ratio 1.8 Ratio 06/02/2017 Comp Metabolic Eaj768 Osmo 280 mOsmo 06/02/2017 Vitamin D 25 Oh Bcf6275 VITAMIN D, 25 HYDROXY 40.03 ng/mL Cbc [...] 29.7 pg 06/02/2017 Cbc With Differential Ord2 [place]% 10.5 % 06/02/2017 Cbc With Differential Ord2 [...] 1.52 K/ul 06/02/2017 Cbc With Differential Ord2 [place] ABS# 0.6 K/ul 06/02/2017 Cbc With Differential Ord2 Eos ABS# 0.2 K/ul 06/02/2017 Cbc With Differential Ord2 Baso ABS# 0.1 K/ul 06/02/2017 Testosterone Flc871 Testo 198.4 ng/dL 04/29/2017 Vitamin D 25 Oh Lnz8641 VITAMIN D, 25 HYDROXY 29.25 ng/mL Lipid Ord30 CHOL 159 mg/dL 04/29/2017 Lipid Ord30 HDL 46.0 mg/dl 04/29/2017 Lipid Ord30 TRIG 134 mg/dL 04/29/2017 Lipid Ord30 LDL 86 mg/dL 04/29/2017 Lipid Ord30 C/HDL 3.5 Ratio 04/29/2017 Tsh Ord6 TSH (3rd IS) 3.28 uIU/mL 04/29/2017 Review of Systems System Result Effective Dates Constitutional recent illness 01/07/2018 Constitutional chills 01/07/2018 [...] Procedure Codes Date THER/PROPH/DIAG INJ SC/IM CPT-4: 35918 03/06/2018 THER/PROPH/DIAG INJ SC/IM CPT-4: 38529 02/19/2018 THER/PROPH/DIAG INJ SC/IM CPT-4: 44314 02/03/2018 THER/PROPH/DIAG INJ SC/IM CPT-4: 44200 01/07/2018 TRIAMCINOLONE ACET INJ NOS CPT-4: J3301 01/07/2018 ROCEPHIN, PER 250 MG CPT-4: J0696 01/07/2018 THER/PROPH/DIAG INJ SC/IM CPT-4: 82440 01/05/2018 THER/PROPH/DIAG INJ SC/IM CPT-4: 20344 12/15/2017 THER/PROPH/DIAG INJ SC/IM CPT-4: 13866 12/04/2017 PPPS, SUBSEQ VISIT CPT -4: G0439 11/27/2017 ADMIN INFLUENZA VIRUS VAC CPT-4: G0008 11/17/2017 FLU VAC NO PRSV 4 FATOU 3 YRS+ CPT-4: 30583 11/17/2017 THER/PROPH/DIAG INJ SC/IM CPT-4: 68583 11/17/2017 THER/PROPH/DIAG INJ SC/IM CPT-4: 73325 10/22/2017 THER/PROPH/DIAG INJ SC/IM CPT-4: 87078 10/06/2017 TRIAMCINOLONE ACET INJ NOS CPT-4: J3301 10/06/2017 THER/PROPH/DIAG INJ SC/IM CPT-4: 56571 09/23/2017 THER/PROPH/DIAG INJ SC/IM CPT-4: 60706 08/28/2017 THER/PROPH/DIAG INJ SC/IM CPT-4: 96314 08/12/2017 THER/PROPH/DIAG INJ SC/IM CPT-4: 88307 07/28/2017 THER/PROPH/DIAG INJ SC/IM CPT-4: 98628 07/14/2017 THER/PROPH/DIAG INJ SC/IM CPT-4: 21855 06/26/2017 THER/PROPH/DIAG INJ SC/IM CPT-4: 03993 06/09/2017 THER/PROPH/DIAG INJ SC/IM CPT-4: 86552 05/27/2017 THER/PROPH/DIAG INJ SC/IM CPT-4: 54635 05/13/2017 THER/PROPH/DIAG INJ SC/IM CPT-4: 86512 04/29/2017 Vital Signs Date Vital 01/07/2018 Blood Pressure 1: 126/66 Code : 8480-6 BMI: 30.1 Code : 11877-7 Heart Rate 1 : 75 bpm Height: 5'10" SpO2: 97% Temperature: 36.5 (C) / 97.7 (F) Weight: 210 lbs 12/22/2017 Blood Pressure 1: 124/70 Code : 8480-6 BMI: 29.7 Code : 88797-0 Heart Rate 1 : 84 bpm Height: 5'10" SpO2: 94% Weight: 207 lbs 12/15/2017 Blood Pressure 1: 122/82 Code : 8480-6 BMI: 30.0 Code : 28716-1 Heart Rate 1 : 82 bpm Height: 5'10" SpO2: 93% Weight: 209 lbs 11/27/2017 Blood Pressure 1: 132/68 Code : 8480-6 BMI: 29.3 Code : 39985-1 Heart Rate 1 : 71 bpm Height: 5'10" SpO2: 97% Waist Measure (cm): 97 cm Weight: 204 lbs 11/17/2017 Blood Pressure 1: 130/80 Code : 8480-6 BMI: 29.3 Code : 52134-9 Heart Rate 1 : 73 bpm Height: 5'10" SpO2: 99% Weight: 204 lbs 10/06/2017 Blood Pressure 1: 124/60 Code : 8480-6 BMI: 28.8 Code : 79004-4 Heart Rate 1 : 70 bpm Height: 5'10" SpO2: 98% Weight: 201 lbs 07/24/2017 Blood Pressure 1: 118/70 Code : 8480-6 BMI: 29.3 Code : 82029-4 Heart Rate 1 : 82 bpm Height: 5'10" SpO2: 96% Weight: 204 lbs 07/14/2017 Blood Pressure 1: 118/72 Code : 8480-6 BMI: 29.1 Code : 01185-7 Heart Rate 1 : 83 bpm Height: 5'10" SpO2: 98% Weight: 203 lbs 06/09/2017 Blood Pressure 1: 120/74 Code : 8480-6 BMI: 29.3 Code : 93988-3 Heart Rate 1 : 91 bpm Height: 5'10" SpO2: 99% Weight: 204 lbs 04/28/2017 Blood Pressure 1: 118/68 Code : 8480-6 BMI: 28.8 Code : 42641-5 Heart Rate 1 : 74 bpm Height: 5'10" SpO2: 96% Weight: 201 lbs 03/14/2017 Blood Pressure 1: 114/74 Code : 8480-6 BMI: 28.6 Code : 25561-0 Heart Rate 1 : 77 bpm Height: 5'10" SpO2: 97% Weight: 199 lbs Functional Status No Functional Status data History of Present Illness Symptom Name Status Result Effective Date Notes sinus congestion Location frontal sinuses 01/07/2018 None [...] Codes Date EST. PATIENT, LEVEL III Diagnosis: Other malaise[ICD10: R53.81] Diagnosis: Acute laryngopharyngitis[ICD10: J06.0] Diagnosis: Other allergic rhinitis[ICD10: J30.89] Sapphire Hollis MD, [facility] CPT-4: 94053 01/07/2018 ([id number]) [id number] EST. PATIENT, LEVEL III Diagnosis: Spinal stenosis, lumbosacral region[ICD10: M48.07] Diagnosis: Spinal stenosis, cervical region[ICD10: M48.02] Elise Hollis MD, [facility] CPT-4: 13577 12/22/2017 ([id number]) [id number] EST. 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 PATIENT, LEVEL III Diagnosis: Mixed hyperlipidemia[ICD10: E78.2] Diagnosis: Other insomnia[ICD10: G47.09] Leora Hollis MD, [facility] CPT- 4: 13820 11/17/2017 [id number] EST. PATIENT, LEVEL III Diagnosis: Acute laryngopharyngitis[ICD10: J06.0] Diagnosis: Other allergic rhinitis[ICD10: J30.89] Sapphire Hollis MD, [facility] CPT-4: 20529 10/06/2017 [id number] EST. PATIENT, LEVEL III Diagnosis: Pain in left shoulder[ICD10: M25.512] Sapphire Hollis MD, [facility] CPT-4: 67542 07/24/2017 ([id number]) 59125 EST. PATIENT, LEVEL IV Diagnosis: Mixed hyperlipidemia[ICD10: E78.2] Diagnosis: Chronic obstructive pulmonary disease, unspecified[ICD10: J44.9] Diagnosis: Testicular hypofunction[ICD10: E29.1] Leora Hollis MD, [facility] CPT-4: 33038 07/14/2017 ([id number]) 78210 EST. 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] Diagnosis: Mixed hyperlipidemia[ICD10: E78.2] Diagnosis: Hypoxemia[ICD10: R09.02] Leora Hollis MD, [facility] CPT-4: 15366 06/09/2017 ([id number]) 92583 EST. 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] [facility] CPT-4: 25429 04/28/2017 ([id number]) Miscellaneous no charge Diagnosis: Impacted cerumen, bilateral[ICD10: H61.23] Leora Hollis MD, [facility] CPT-4: 77051 03/17/2017 ([id number]) OFFICE VISIT, NEW - LEVEL 4 Diagnosis: Mixed hyperlipidemia[ICD10: E78.2] Diagnosis: Chronic pain syndrome[ICD10: G89.4] Diagnosis: Presbycusis, bilateral[ICD10: H91.13] Diagnosis: Impacted cerumen, bilateral[ICD10: H61.23] Diagnosis: Atherosclerotic heart disease of resighini coronary artery without angina pectoris[ICD10: I25.10] Diagnosis: Personal history of other diseases of the circulatory system[ICD10: Z86.79] [facility] CPT-4: 99496 2017 Plan of Care Planned Activity Notes Codes Status Date Patient Education: Patient Medication Summary Completed 03/06/2018 [...] allergy spray. 01/07/2018 Appointment: Sapphire Oneil WPtel: [address] [place] [address] (15 min) Moderate 01/07/2018 Patient Education: Patient [...] of plan. 12/22/2017 Appointment: Elise Castillo WPtel: [address] [place], [place] [phone] (15 min) Moderate 12/22/2017 Patient Education: Patient Medication Summary Completed 12/22/2017 Visit Plan: Neck and low back pain -will schedule MRI lumbar and cervical spine for further evaluation and proceed as indicated- patient verbalized understanding of plan. 12/15/2017 Appointment: Elise Castillo WPtel: [phone] (15 min) Moderate 12/15/2017 Patient Education: Patient Medication Summary Completed 12/15/2017 Patient Education: Back Pain Completed 12/15/2017 Care Plan: MRI LUMBAR SPINE W/O DYE LOINC : 52174-5 Pending 12/15/2017 Care Plan: MRI NECK SPINE W/O DYE LOINC : 82340-0 Pending 12/15/2017 Appointment: Injection 12/04/2017 Patient Education: [...] care surrogate. 11/27/2017 [facility] [address] [facility] [facility] - Annual Wellness Visit 11/27/2017 Patient [...] sleep 11/17/2017 [facility] [phone] [facility] (15 min) Moderate 11/17/2017 Patient [...] spray. 10/06/2017 [facility] [phone] [facility] (15 min) Moderate 10/06/2017 App[facility]ment[facility]hire [facility]il [facility] [address] [facility] (15 min) Moderate 10/06/2017 Patient Education: [...] plan. 07/24/2017 [phone] ([facility] Complex 07/24/2017 Patient Education: [...] medications. 07/14/2017 [phone] ([facility] Moderate 07/14/2017 Patient Education: Patient Medication Summary Completed 07/14/2017 App[facility]ment: [facility] [phone] [facility] (15 min) Moderate 07/10/2017 Appointment: [...] night 06/09/2017 Appointment: [phone] [facility] [place] (30 min) Complex 06/09/2017 [...] 15 04/28/2017 [phone] ([facility]) Complex 04/28/2017 Patient Education: [...] removal 03/14/2017 App[facility]ment: [phone] [facility] [facility] Patient 03/14/2017 Patient Education: [...] spray in the nasal steroid allergy spray. REFER FOR PHYSICAL THERAPY AT [facility] -HE HAS A PT HE [...]
--- OUTSIDE RECORDS SUMMARY | 2018-06-12 09:36 | XMS REPORT | CCD ---
Author Author [facility] Organization [facility] Address [address] [place] [address] Phone Care Team Providers Care Barrel Polisher Name Role Phone PP Unavailable CCM Unavailable Summary Purpose Interface Exchange Insurance Providers Payer name Policy type / Coverage type Covered green party ID Effective Begin Date Effective End Date WPS Medicare Part B Medicare Part B [id number] 2017 Unknown [facility] Medicare Part B [id number] 2017 Unknown Family history Father Diagnosis Age At Onset Heart Attack Unknown Social History Social History Element Codes Description Effective Dates Marital status Unknown 03/14/2017 Number of children Unknown 2 03/14/[address]: 1332794 Former smoker Quit 11/03/00; smoke 1/2 pack/day x15 years 03/14/[address]: 085973222 Never drinks alcohol 03/14/2017 Allergies, Adverse Reactions, [...] Active 03/14/2017 Unknown 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 [...] H61.23 03/14/2017 Active 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 ICD-10: I25.10 03/14/2017 Active Chronic pain syndrome ICD-9: 338.4 ICD-10: G89.4 03/14/2017 Active Personal history of other diseases of the circulatory system ICD-9: V12.59 ICD-10: Z86.79 03/14/2017 Active Presbycusis, 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 03/14/2017 Active Medications Medication Codes Instructions Start Date Stop Date Status Fill Instructions testosterone cypionate 200 mg/mL intramuscular oil RxNorm: 0178625 Milliliter(s) IM 02/19/2018 02/19/2018 Inactive hydrocodone 5 mg-acetaminophen 325 mg tablet RxNorm: 328959 1-2 Tablet(s) PO Q6 PRN 02/18/2018 04/18/2018 Active zolpidem 5 mg tablet RxNorm: 528405 TAKE ONE TABLET BY MOUTH EVERY NIGHT AT BEDTIME NEEDED 02/13/2018 03/14/2018 Active meloxicam 15 mg tablet RxNorm: 107697 TAKE ONE TABLET BY MOUTH DAILY 02/13/2018 08/11/2018 Active testosterone cypionate 200 mg/mL intramuscular kit RxNorm: 282108 1/2 Milliliter(s ) IM [id number] 02/03/2018 08/01/2018 Active testosterone cypionate 200 mg/mL intramuscular oil RxNorm: 892048 Milliliter(s) IM 02/03/2018 02/03/2018 Inactive prednisone 20 mg tablet RxNorm: 269378 2 Tablet(s) PO QAM 01/0901/13/2018 Inactive cefdinir 300 mg capsule RxNorm: 969484 1 Capsule(s) PO BID 01/18/2018 Inactive prednisone 20 mg tablet RxNorm: 695198 2 Tablet(s) PO QAM 01/0901/08/2018 Inactive cefdinir 300 mg capsule RxNorm: 452666 1 Capsule(s) PO BID 01/08/2018 Inactive Zithromax Z-Timothy 250 mg tablet RxNorm: 023681 1 Tablet(s) PO UD 01/07/2018 No Stop Date Active Kenalog 40 mg/mL suspension for injection RxNorm: 1491709 Milliliter(s) Inj 01/07/2018 01/07/2018 Inactive ceftriaxone 500 mg solution for injection RxNorm: 7056395 Inj 01/07/2018 01/07/2018 Inactive testosterone cypionate 200 mg/mL intramuscular oil RxNorm: 742276 1/2 Milliliter(s ) IM 01/05/2018 01/05/2018 Inactive hydrocodone 5 mg-acetaminophen 325 mg tablet RxNorm: 695084 1-2 Tablet(s) PO Q6 PRN 12/22/2017 02/17/2018 Inactive zolpidem 5 mg tablet RxNorm: 494303 1 Tablet(s) PO 30 min before QHS 12/15/2017 02/12/2018 Inactive testosterone cypionate 200 mg/mL intramuscular oil RxNorm: 944158 Milliliter(s) IM 12/15/2017 12/15/2017 Inactive testosterone cypionate 200 mg/mL intramuscular oil RxNorm: 208501 1/2 Milliliter(s ) IM 12/04/2017 12/04/2017 Inactive testosterone cypionate 200 mg/mL intramuscular oil RxNorm: 335601 1/2 Milliliter(s ) IM 11/17/2017 11/17/2017 Inactive potassium chloride ER 10 mEq capsule,extended release RxNorm: 564628 TAKE ONE CAPSULE BY MOUTH DAILY 11/11/20172018 Active testosterone cypionate 200 mg/mL intramuscular oil RxNorm: 070532 Milliliter(s) IM 10/22/2017 10/22/2017 Inactive zolpidem 5 mg tablet RxNorm: 101051 1 Tablet(s) PO 30 min before QHS 10/15/2017 10/14/2017 Inactive zolpidem 5 mg tablet RxNorm: 269620 1 Tablet(s) PO 30 min before QHS 10/15/2017 12/13/2017 Inactive Zithromax Z-Timothy 250 mg tablet RxNorm: 439778 1 Tablet(s) PO UD 10/07/2017 11/16/2017 Inactive testosterone cypionate 200 mg/mL intramuscular oil RxNorm: 641801 Milliliter(s) IM 10/06/2017 10/06/2017 Inactive Kenalog 40 mg/mL suspension for injection RxNorm: 2189705 Milliliter(s) Inj 10/06/2017 10/06/2017 Inactive Zithromax Z-Timothy 250 mg tablet RxNorm: 552954 1 Tablet(s) PO UD 10/06/2017 10/06/2017 Inactive testosterone cypionate 200 mg/mL intramuscular oil RxNorm: 084468 Milliliter(s) IM 09/23/2017 09/23/2017 Inactive testosterone cypionate 200 mg/mL intramuscular kit RxNorm: 682382 1/2 Milliliter(s ) IM [id number] 08/28/2017 02/02/2018 Inactive meloxicam 15 mg tablet RxNorm: 354617 TAKE ONE TABLET BY MOUTH DAILY 08/28/2017 02/12/2018 Inactive testosterone cypionate 200 mg/mL intramuscular oil RxNorm: 414063 Milliliter(s) IM 08/28/2017 08/28/2017 Inactive testosterone cypionate 200 mg/mL intramuscular oil RxNorm: 903759 1/2 Milliliter(s ) IM 08/12/2017 08/12/2017 Inactive meloxicam 15 mg tablet RxNorm: 159973 1 Tablet(s) PO daily 08/201708/27/2017 Inactive atorvastatin 40 mg tablet RxNorm: 431303 TAKE ONE TABLET BY MOUTH DAILY 07/30/2017 02/24/2018 Inactive furosemide 40 mg tablet RxNorm: 003140 TAKE ONE TABLET BY MOUTH DAILY 07/30/2017 02/24/2018 Inactive testosterone cypionate 200 mg/mL intramuscular oil RxNorm: 907460 1/2 Milliliter(s ) IM 07/28/2017 07/28/2017 Inactive testosterone cypionate 200 mg/mL intramuscular oil RxNorm: 478761 1/2 Milliliter(s ) IM 07/14/2017 07/14/2017 Inactive testosterone cypionate 200 mg/mL intramuscular oil RxNorm: 044574 1/2 Milliliter(s ) IM 06/26/2017 06/26/2017 Inactive hydrocodone 5 mg-acetaminophen 325 mg tablet RxNorm: 624368 1 Tablet(s) PO QHS and 1 tab PO daily PRN pain 06/09/2017 Inactive hydrocodone 5 mg-acetaminophen 325 mg tablet RxNorm: 948175 1 Tablet(s) PO daily 06/09/2017 06/18/2017 Inactive testosterone cypionate 200 mg/mL intramuscular oil RxNorm: 745847 1/2 Milliliter(s ) IM 06/09/2017 06/09/2017 Inactive testosterone cypionate 200 mg/mL intramuscular oil RxNorm: 203473 Milliliter(s) IM 05/27/2017 05/27/2017 Inactive testosterone cypionate 200 mg/mL intramuscular oil RxNorm: 264717 Milliliter(s) IM 05/13/2017 05/13/2017 Inactive potassium chloride ER 10 mEq capsule,extended release RxNorm: 089065 1 Capsule(s) PO daily 05/07/2017 11/02/2017 Inactive Vitamin D2 50,000 unit capsule RxNorm: 432943 1 Capsule(s) PO QW 05/06/2017 05/05/2017 Inactive take with OTC vitamin d 2,000 units QD testosterone cypionate 200 mg/mL intramuscular kit RxNorm: 303716 1/2 kit IM 2 x month 05/06/2017 08/27/2017 Inactive Vitamin D2 50,000 unit capsule RxNorm: 165652 1 Capsule(s) PO QW 05/06/2017 08/03/2017 Inactive take with OTC vitamin d 2,000 units QD testosterone cypionate 200 mg/mL intramuscular oil RxNorm: 953709 1/2 Milliliter(s ) IM 04/29/2017 04/29/2017 Inactive fluorouracil 5 % topical cream RxNorm: 482853 1 Application TOP BID 04/28/2017 05/07/2017 Inactive testosterone cypionate 200 mg/mL intramuscular kit RxNorm: 677974 1/2 IM 2 x month 04/28/2017 05/05/2017 Inactive Pamelor 10 mg capsule RxNorm: 790264 1 Capsule(s) PO daily No Start Date Active gabapentin 300 mg capsule RxNorm: 960464 6 Capsule(s) PO daily No Start Date Active cyclobenzaprine 5 mg tablet RxNorm: 118429 1 Tablet(s) PO as needed No Start Date Active diclofenac 1 % topical gel RxNorm: 510271 1 Gram(s) TOP as needed No Start Date Active clopidogrel 75 mg tablet RxNorm: 841353 1 Tablet(s) PO daily No Start Date Active meloxicam 15 mg tablet RxNorm: 276369 1 Tablet(s) PO daily No Start Date 07/30/2017 Inactive potassium chloride ER 10 mEq tablet,extended release RxNorm: 835199 1 Tablet(s) PO daily No Start Date 05/06/2017 Inactive hydrocodone 5 mg-acetaminophen 325 mg tablet RxNorm: 603666 1 Tablet(s) PO daily No Start Date 06/08/2017 Inactive furosemide 40 mg tablet RxNorm: 820531 1 Tablet(s) PO daily No Start Date 07/29/2017 Inactive atorvastatin 40 mg tablet RxNorm: 813066 1 Tablet(s) PO QHS No Start Date 07/29/2017 Inactive Medication Administered Medication Codes Instructions Start Date Status testosterone cypionate 200 mg/mL intramuscular oil RxNorm: 0027782 Milliliter 02/19/2018 No longer Active testosterone cypionate 200 mg/mL intramuscular oil RxNorm: 192032 Milliliter 02/03/2018 No longer Active Kenalog 40 mg/mL suspension for injection RxNorm: 4697662 Milliliter 01/07/2018 No longer Active ceftriaxone 500 mg solution for injection RxNorm: 3141074 01/07/2018 No longer Active testosterone cypionate 200 mg/mL intramuscular oil RxNorm: 563700 /2Milliliter 01/05/2018 No longer Active testosterone cypionate 200 mg/mL intramuscular oil RxNorm: 965473 Milliliter 12/15/2017 No longer Active testosterone cypionate 200 mg/mL intramuscular oil RxNorm: 295027 /2Milliliter 12/04/2017 No longer Active testosterone cypionate 200 mg/mL intramuscular oil RxNorm: 783203 /2Milliliter 11/17/2017 No longer Active testosterone cypionate 200 mg/mL intramuscular oil RxNorm: 015365 Milliliter 10/22/2017 No longer Active testosterone cypionate 200 mg/mL intramuscular oil RxNorm: 401704 Milliliter 10/06/2017 No longer Active Kenalog 40 mg/mL suspension for injection RxNorm: 6099107 Milliliter 10/06/2017 No longer Active testosterone cypionate 200 mg/mL intramuscular oil RxNorm: 356032 Milliliter 09/23/2017 No longer Active testosterone cypionate 200 mg/mL intramuscular oil RxNorm: 283098 Milliliter 08/28/2017 No longer Active testosterone cypionate 200 mg/mL intramuscular oil RxNorm: 379586 /2Milliliter 08/12/2017 No longer Active testosterone cypionate 200 mg/mL intramuscular oil RxNorm: 687891 /2Milliliter 07/28/2017 No longer Active testosterone cypionate 200 mg/mL intramuscular oil RxNorm: 386914 /2Milliliter 07/14/2017 No longer Active testosterone cypionate 200 mg/mL intramuscular oil RxNorm: 423031 /2Milliliter 06/26/2017 No longer Active testosterone cypionate 200 mg/mL intramuscular oil RxNorm: 879246 1/2Milliliter 06/09/2017 No longer Active testosterone cypionate 200 mg/mL intramuscular oil RxNorm: 208873 Milliliter 05/27/2017 No longer Active testosterone cypionate 200 mg/mL intramuscular oil RxNorm: 858926 Milliliter 05/13/2017 No longer Active testosterone cypionate 200 mg/mL intramuscular oil RxNorm: 328360 1/2Milliliter 04/29/2017 No longer Active Immunizations Vaccine Codes Date Status Influenza CVX: 141 11/17/2017 completed Assessments Condition Codes Effective Dates 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 ICD-9: 257.2 02/19/2018 Other malaise ICD-10: R53.81 ICD-9: 780.79 01/07/2018 [...] ICD-9: 380.4 03/17/2017 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 TNP:Improper Specimen 01/07/2018 C A/B FLU [id number] Influenza Intrp B AG: PRID:PT:NOSE:NOM:IF TNP:Improper Specimen 01/07/2018 Hepatic Shw713 ALBUMIN 3.7 g/dL 08/06/2017 Hepatic Ham485 TPRO 5.9 g/dL 08/06/2017 Hepatic Qot919 GLOB 2.2 g/dL 08/06/2017 Hepatic Mnv452 A/G Ratio 1.7 Ratio 08/06/2017 Hepatic Usf490 ALK PHOS 46 U/L 08/06/2017 Hepatic Ukr996 ALT(SGPT) 9 U/L 08/06/2017 Hepatic Kqa167 AST(SGOT) 13 U/L 08/06/2017 Hepatic Vga625 BILI T 0.6 mg/dL 08/06/2017 Hepatic Nrd799 BILI D 0.2 mg/dL 08/06/2017 Hepatic Fcy370 BILI I 0.4 mg/dL 08/06/2017 Testosterone Tkc039 Testo 474.5 ng/dL 08/06/2017 Cbc With Differential [...] 28.5 pg 08/06/2017 Cbc With Differential Ord2 [place]% 11.2 % 08/06/2017 Cbc With Differential Ord2 [...] 1.33 K/ul 08/06/2017 Cbc With Differential Ord2 [place] ABS# 0.6 K/ul 08/06/2017 Cbc With Differential Ord2 Eos ABS# 0.3 K/ul 08/06/2017 Cbc With Differential Ord2 Baso ABS# 0.1 K/ul 08/06/2017 Comp Metabolic Byq660 NA 140 mEq/L 06/02/2017 Comp Metabolic Jap617 K 3.8 mEq/L 06/02/2017 Comp Metabolic Ksj072 CL 102 mEq/L 06/02/2017 Comp Metabolic Cfz124 CO2 30.0 mEq/L 06/02/2017 Comp Metabolic Acl116 ANION GAP 12 06/02/2017 Comp Metabolic Wcx725 GLUCOSE 100 mg/dL 06/02/2017 Comp Metabolic Fvy324 Creat 1.1 mg/dL 06/02/2017 Comp Metabolic Zgx392 eGFR 69 ml/min/1.73m2 06/02/2017 Comp Metabolic Sdt215 BUN 15 mg/dL 06/02/2017 Comp Metabolic Mcq152 B/C Ratio 13.4 Ratio 06/02/2017 Comp Metabolic Tov992 CALCIUM 8.6 mg/dL 06/02/2017 Comp Metabolic Ypa051 ALK PHOS 63 U/L 06/02/2017 Comp Metabolic Yos293 AST(SGOT) 17 U/L 06/02/2017 Comp Metabolic Zfl165 ALT(SGPT) 12 U/L 06/02/2017 Comp Metabolic Mij890 BILI T 0.5 mg/dL 06/02/2017 Comp Metabolic Mlr253 ALBUMIN 3.9 g/dL 06/02/2017 Comp Metabolic Obz138 TPRO 6.1 g/dL 06/02/2017 Comp Metabolic Vje958 GLOB 2.2 g/dL 06/02/2017 Comp Metabolic Jrx065 A/G Ratio 1.8 Ratio 06/02/2017 Comp Metabolic Rjj090 Osmo 280 mOsmo 06/02/2017 Vitamin D 25 Oh Mdt2546 VITAMIN D, 25 HYDROXY 40.03 ng/mL Cbc [...] 93.0 fl 06/02/2017 Cbc With Differential Ord2 [place]% 10.5 % 06/02/2017 Cbc With Differential Ord2 [...] 1.52 K/ul 06/02/2017 Cbc With Differential Ord2 [place] ABS# 0.6 K/ul 06/02/2017 Cbc With Differential Ord2 Eos ABS# 0.2 K/ul 06/02/2017 Cbc With Differential Ord2 Baso ABS# 0.1 K/ul 06/02/2017 Testosterone Oyu598 Testo 198.4 ng/dL 04/29/2017 Vitamin D 25 Oh Oqg9374 VITAMIN D, 25 HYDROXY 29.25 ng/mL Lipid [...] Procedure Codes Date THER/PROPH/DIAG INJ SC/IM CPT-4: 17004 02/19/2018 THER/PROPH/DIAG INJ SC/IM CPT-4: 60800 02/03/2018 THER/PROPH/DIAG INJ SC/IM CPT-4: 63579 01/07/2018 TRIAMCINOLONE ACET INJ NOS CPT-4: J3301 01/07/2018 ROCEPHIN, PER 250 MG CPT-4: J0696 01/07/2018 THER/PROPH/DIAG INJ SC/IM CPT-4: 51268 01/05/2018 THER/PROPH/DIAG INJ SC/IM CPT-4: 51252 12/15/2017 THER/PROPH/DIAG INJ SC/IM CPT-4: 59936 12/04/2017 PPPS, SUBSEQ VISIT CPT -4: G0439 11/27/2017 ADMIN INFLUENZA VIRUS VAC CPT-4: G0008 11/17/2017 FLU VAC NO PRSV 4 FATOU 3 YRS+ CPT-4: 00654 11/17/2017 THER/PROPH/DIAG INJ SC/IM CPT-4: 21270 11/17/2017 THER/PROPH/DIAG INJ SC/IM CPT-4: 89312 10/22/2017 THER/PROPH/DIAG INJ SC/IM CPT-4: 78367 10/06/2017 TRIAMCINOLONE ACET INJ NOS CPT-4: J3301 10/06/2017 THER/PROPH/DIAG INJ SC/IM CPT-4: 43790 09/23/2017 THER/PROPH/DIAG INJ SC/IM CPT-4: 11597 08/28/2017 THER/PROPH/DIAG INJ SC/IM CPT-4: 66976 08/12/2017 THER/PROPH/DIAG INJ SC/IM CPT-4: 31883 07/28/2017 THER/PROPH/DIAG INJ SC/IM CPT-4: 42498 07/14/2017 THER/PROPH/DIAG INJ SC/IM CPT-4: 62593 06/26/2017 THER/PROPH/DIAG INJ SC/IM CPT-4: 18648 06/09/2017 THER/PROPH/DIAG INJ SC/IM CPT-4: 48822 05/27/2017 THER/PROPH/DIAG INJ SC/IM CPT-4: 24096 05/13/2017 THER/PROPH/DIAG INJ SC/IM CPT-4: 25541 04/29/2017 Vital Signs Date Vital 01/07/2018 Blood Pressure 1: 126/66 Code : 8480-6 BMI: 30.1 Code : 66331-9 Heart Rate 1 : 75 bpm Height: 5'10" SpO2: 97% Temperature: 36.5 (C) / 97.7 (F) Weight: 210 lbs 12/22/2017 Blood Pressure 1: 124/70 Code : 8480-6 BMI: 29.7 Code : 48968-0 Heart Rate 1 : 84 bpm Height: 5'10" SpO2: 94% Weight: 207 lbs 12/15/2017 Blood Pressure 1: 122/82 Code : 8480-6 BMI: 30.0 Code : 31693-7 Heart Rate 1 : 82 bpm Height: 5'10" SpO2: 93% Weight: 209 lbs 11/27/2017 Blood Pressure 1: 132/68 Code : 8480-6 BMI: 29.3 Code : 60261-2 Heart Rate 1 : 71 bpm Height: 5'10" SpO2: 97% Waist Measure (cm): 97 cm Weight: 204 lbs 11/17/2017 Blood Pressure 1: 130/80 Code : 8480-6 BMI: 29.3 Code : 39094-9 Heart Rate 1 : 73 bpm Height: 5'10" SpO2: 99% Weight: 204 lbs 10/06/2017 Blood Pressure 1: 124/60 Code : 8480-6 BMI: 28.8 Code : 86404-5 Heart Rate 1 : 70 bpm Height: 5'10" SpO2: 98% Weight: 201 lbs 07/24/2017 Blood Pressure 1: 118/70 Code : 8480-6 BMI: 29.3 Code : 54120-6 Heart Rate 1 : 82 bpm Height: 5'10" SpO2: 96% Weight: 204 lbs 07/14/2017 Blood Pressure 1: 118/72 Code : 8480-6 BMI: 29.1 Code : 88282-8 Heart Rate 1 : 83 bpm Height: 5'10" SpO2: 98% Weight: 203 lbs 06/09/2017 Blood Pressure 1: 120/74 Code : 8480-6 BMI: 29.3 Code : 62761-0 Heart Rate 1 : 91 bpm Height: 5'10" SpO2: 99% Weight: 204 lbs 04/28/2017 Blood Pressure 1: 118/68 Code : 8480-6 BMI: 28.8 Code : 89746-8 Heart Rate 1 : 74 bpm Height: 5'10" SpO2: 96% Weight: 201 lbs 03/14/2017 Blood Pressure 1: 114/74 Code : 8480-6 BMI: 28.6 Code : 99724-9 Heart Rate 1 : 77 bpm Height: [...] data Encounters Encounter Performer Location Codes Date 87227 EST. PATIENT, LEVEL III Diagnosis: Other malaise[ICD10: R53.81] Diagnosis: Acute laryngopharyngitis[ICD10: J06.0] Diagnosis: Other allergic rhinitis[ICD10: J30.89] Sapphire Hollis MD, [facility] CPT-4: 42563 01/07/2018 [id number]) 61211 EST. PATIENT, LEVEL III Diagnosis: Spinal stenosis, lumbosacral region[ICD10: M48.07] Diagnosis: Spinal stenosis, cervical region[ICD10: M48.02] Elise Hollis MD, [facility] CPT-4: 27740 12/22/2017 ([id number]) 13024 EST. PATIENT, LEVEL III Diagnosis: Cervicalgia[ICD10: M54.2] Diagnosis: Low back pain[ICD10: M54.5] Diagnosis: Testicular hypofunction[ICD10: E29.1] Elise Hollis MD, [facility] CPT-4: 87782 12/15/2017 ([id number]) 49343 EST. PATIENT, LEVEL III Diagnosis: Mixed hyperlipidemia[ICD10: E78.2] Diagnosis: Other insomnia[ICD10: G47.09] Leora Hollis MD, [facility] CPT- 4: 71422 11/17/2017 30201 EST. PATIENT, LEVEL III Diagnosis: Acute laryngopharyngitis[ICD10: J06.0] Diagnosis: Other allergic rhinitis[ICD10: J30.89] Sapphire Hollis MD, [facility] CPT-4: 22970 10/06/2017 62086 EST. PATIENT, LEVEL III Diagnosis: Pain in left shoulder[ICD10: M25.512] Sapphire Hollis MD, [facility] CPT-4: 75210 07/24/2017 ([id number]) 33532 EST. PATIENT, LEVEL IV Diagnosis: Mixed hyperlipidemia[ICD10: E78.2] Diagnosis: Chronic obstructive pulmonary disease, unspecified[ICD10: J44.9] Diagnosis: Testicular hypofunction[ICD10: E29.1] Leora Hollis MD, [facility] CPT-4: 11912 07/14/2017 ([id number]) 88494 EST. 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] Diagnosis: Mixed hyperlipidemia[ICD10: E78.2] Diagnosis: Hypoxemia[ICD10: R09.02] Leora Hollis MD, [facility] CPT-4: 02343 06/09/2017 ([id number]) 37936 EST. 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] [facility] CPT-4: 45352 04/28/2017 ([id number]) Miscellaneous no charge Diagnosis: Impacted cerumen, bilateral[ICD10: H61.23] ANN Xie MD CPT-4: 15884 03/17/2017 ([id number]) OFFICE VISIT, NEW - LEVEL 4 Diagnosis: Mixed hyperlipidemia[ICD10: E78.2] Diagnosis: Chronic pain syndrome[ICD10: G89.4] Diagnosis: Presbycusis, bilateral[ICD10: H91.13] Diagnosis: Impacted cerumen, bilateral[ICD10: H61.23] Diagnosis: Atherosclerotic heart disease of [place] coronary artery without angina pectoris[ICD10: I25.10] Diagnosis: Personal history of other diseases of the circulatory system[ICD10: Z86.79] [facility] CPT-4: 29494 2017 Plan of Care Planned Activity Notes Codes Status Date Appointment: Injection 02/19/2018 Patient Education: Patient Medication [...] allergy spray. 01/07/2018 Appointment: Sapphire Oneil WPtel: [address] [place], [place] [phone] (15 min) Moderate 01/07/2018 Patient Education: Patient [...] of plan. 12/22/2017 Appointment: Elise Castillo WPtel: [phone] (15 min) Moderate 12/22/2017 Patient Education: Patient Medication Summary Completed 12/22/2017 Visit Plan: Neck and low back pain -will schedule MRI lumbar and cervical spine for further evaluation and proceed as indicated- patient verbalized understanding of plan. 12/15/2017 Appointment: Elise Castillo WPtel: [address] [place], [place] [phone] (15 min) Moderate 12/15/2017 Patient Education: Patient Medication Summary Completed 12/15/2017 Patient Education: Back Pain Completed 12/15/2017 Care Plan: MRI LUMBAR SPINE W/O DYE LOINC : 94864-4 Pending 12/15/2017 Care Plan: MRI NECK SPINE W/O DYE LOINC : 76875-0 Pending 12/15/2017 Appointment: Injection 12/04/2017 Patient Education: [...] surrogate. 11/27/2017 Appointment: [id number] [facility] - Annual Wellness Visit [...] to sleep 11/17/2017 [phone] (15 min) Moderate 11/17/2017 Patient Education: [...] spray. 10/06/2017 Appointment: Leora Hollis WPtel: [phone] [facility] (15 min) Moderate 10/06/2017 Appointment: Sapphire Oneil WPtel: [phone] [facility] (15 min) Moderate 10/06/2017 Patient [...] plan. 07/24/2017 Appointment: Sapphire Oneil WPtel: [phone] [facility] (30 min) Complex 07/24/2017 Patient Education: Patient [...] Appointment: Leora Hollis WPtel: [phone] [facility] [place] (15 min) Moderate 07/14/2017 Patient Education: Patient Medication Summary Completed 07/14/2017 Appointment: Leora Hollis WPtel: [phone] [facility] [place] (15 min) Moderate 07/10/2017 Appointment: Injection [...] at night 06/09/2017 Appointment: Leora Hollis WPtel: [facility] [place] (30 min) Complex 06/09/2017 Patient Education: [...] 15 04/28/2017 Appointment: [phone] [place] (30 min) Complex 04/28/2017 Patient [...] removal 03/14/2017 Appointment: Leora Hollis WPtel: [address] [place] [address] New Patient 03/14/2017 Patient Education: Patient Medication [...] wax removal REFER FOR PHYSICAL THERAPY AT [facility] -HE HAS A PT HE HAS [...]
--- OUTSIDE RECORDS SUMMARY | 2018-06-12 09:38 | XMS REPORT | CCD ---
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 Phone PP Unavailable CCM Unavailable Summary Purpose Interface Exchange Insurance Providers Payer name Policy type / Coverage type Covered democrat ID Effective Begin Date Effective End Date WPS Medicare Part B Medicare Part B [id number] 2017 Unknown [facility] Medicare Part B [id number] 2017 Unknown Family history Father Diagnosis Age At Onset Heart Attack Unknown Social History Social History Element Codes Description Effective Dates Marital status Unknown 03/14/2017 Number of children Unknown 2 03/14/[address]: 7828449 Former smoker Quit 11/03/00; smoke 1/2 pack/day x15 years 03/14/[address]: 506535484 Never drinks alcohol 03/14/2017 Allergies, Adverse Reactions, [...] Active 03/14/2017 Unknown 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 [...] H61.23 03/14/2017 Active 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 ICD-10: I25.10 03/14/2017 Active Chronic pain syndrome ICD-9: 338.4 ICD-10: G89.4 03/14/2017 Active Personal history of other diseases of the circulatory system ICD-9: V12.59 ICD-10: Z86.79 03/14/2017 Active Presbycusis, 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 03/14/2017 Active Medications Medication Codes Instructions Start Date Stop Date Status Fill Instructions testosterone cypionate 200 mg/mL intramuscular oil RxNorm: 4583928 Milliliter(s) IM 02/19/2018 02/19/2018 Inactive hydrocodone 5 mg-acetaminophen 325 mg tablet RxNorm: 467419 1-2 Tablet(s) PO Q6 PRN 02/18/2018 04/18/2018 Active zolpidem 5 mg tablet RxNorm: 852328 TAKE ONE TABLET BY MOUTH EVERY NIGHT AT BEDTIME NEEDED 02/13/2018 03/14/2018 Active meloxicam 15 mg tablet RxNorm: 159724 TAKE ONE TABLET BY MOUTH DAILY 02/13/2018 08/11/2018 Active testosterone cypionate 200 mg/mL intramuscular kit RxNorm: 041122 1/2 Milliliter(s ) IM [id number] 02/03/2018 08/01/2018 Active testosterone cypionate 200 mg/mL intramuscular oil RxNorm: 970660 Milliliter(s) IM 02/03/2018 02/03/2018 Inactive prednisone 20 mg tablet RxNorm: 482924 2 Tablet(s) PO QAM 01/0901/13/2018 Inactive cefdinir 300 mg capsule RxNorm: 102198 1 Capsule(s) PO BID 01/18/2018 Inactive prednisone 20 mg tablet RxNorm: 132073 2 Tablet(s) PO QAM 01/0901/08/2018 Inactive cefdinir 300 mg capsule RxNorm: 297249 1 Capsule(s) PO BID 01/08/2018 Inactive Zithromax Z-Timothy 250 mg tablet RxNorm: 240212 1 Tablet(s) PO UD 01/07/2018 No Stop Date Active Kenalog 40 mg/mL suspension for injection RxNorm: 6703137 Milliliter(s) Inj 01/07/2018 01/07/2018 Inactive ceftriaxone 500 mg solution for injection RxNorm: 7402926 Inj 01/07/2018 01/07/2018 Inactive testosterone cypionate 200 mg/mL intramuscular oil RxNorm: 740086 1/2 Milliliter(s ) IM 01/05/2018 01/05/2018 Inactive hydrocodone 5 mg-acetaminophen 325 mg tablet RxNorm: 536451 1-2 Tablet(s) PO Q6 PRN 12/22/2017 02/17/2018 Inactive zolpidem 5 mg tablet RxNorm: 198302 1 Tablet(s) PO 30 min before QHS 12/15/2017 02/12/2018 Inactive testosterone cypionate 200 mg/mL intramuscular oil RxNorm: 244797 Milliliter(s) IM 12/15/2017 12/15/2017 Inactive testosterone cypionate 200 mg/mL intramuscular oil RxNorm: 381324 1/2 Milliliter(s ) IM 12/04/2017 12/04/2017 Inactive testosterone cypionate 200 mg/mL intramuscular oil RxNorm: 007731 1/2 Milliliter(s ) IM 11/17/2017 11/17/2017 Inactive potassium chloride ER 10 mEq capsule,extended release RxNorm: 131025 TAKE ONE CAPSULE BY MOUTH DAILY 11/11/20172018 Active testosterone cypionate 200 mg/mL intramuscular oil RxNorm: 185331 Milliliter(s) IM 10/22/2017 10/22/2017 Inactive zolpidem 5 mg tablet RxNorm: 713054 1 Tablet(s) PO 30 min before QHS 10/15/2017 10/14/2017 Inactive zolpidem 5 mg tablet RxNorm: 843421 1 Tablet(s) PO 30 min before QHS 10/15/2017 12/13/2017 Inactive Zithromax Z-Timothy 250 mg tablet RxNorm: 929878 1 Tablet(s) PO UD 10/07/2017 11/16/2017 Inactive testosterone cypionate 200 mg/mL intramuscular oil RxNorm: 476186 Milliliter(s) IM 10/06/2017 10/06/2017 Inactive Kenalog 40 mg/mL suspension for injection RxNorm: 7753350 Milliliter(s) Inj 10/06/2017 10/06/2017 Inactive Zithromax Z-Timothy 250 mg tablet RxNorm: 137406 1 Tablet(s) PO UD 10/06/2017 10/06/2017 Inactive testosterone cypionate 200 mg/mL intramuscular oil RxNorm: 230977 Milliliter(s) IM 09/23/2017 09/23/2017 Inactive testosterone cypionate 200 mg/mL intramuscular kit RxNorm: 712063 1/2 Milliliter(s ) IM [id number] 08/28/2017 02/02/2018 Inactive meloxicam 15 mg tablet RxNorm: 339952 TAKE ONE TABLET BY MOUTH DAILY 08/28/2017 02/12/2018 Inactive testosterone cypionate 200 mg/mL intramuscular oil RxNorm: 309358 Milliliter(s) IM 08/28/2017 08/28/2017 Inactive testosterone cypionate 200 mg/mL intramuscular oil RxNorm: 593495 1/2 Milliliter(s ) IM 08/12/2017 08/12/2017 Inactive meloxicam 15 mg tablet RxNorm: 662912 1 Tablet(s) PO daily 08/201708/27/2017 Inactive atorvastatin 40 mg tablet RxNorm: 558160 TAKE ONE TABLET BY MOUTH DAILY 07/30/2017 02/24/2018 Active furosemide 40 mg tablet RxNorm: 664910 TAKE ONE TABLET BY MOUTH DAILY 07/30/2017 02/24/2018 Active testosterone cypionate 200 mg/mL intramuscular oil RxNorm: 195067 1/2 Milliliter(s ) IM 07/28/2017 07/28/2017 Inactive testosterone cypionate 200 mg/mL intramuscular oil RxNorm: 250603 1/2 Milliliter(s ) IM 07/14/2017 07/14/2017 Inactive testosterone cypionate 200 mg/mL intramuscular oil RxNorm: 477364 1/2 Milliliter(s ) IM 06/26/2017 06/26/2017 Inactive hydrocodone 5 mg-acetaminophen 325 mg tablet RxNorm: 355204 1 Tablet(s) PO QHS and 1 tab PO daily PRN pain 06/09/2017 Inactive hydrocodone 5 mg-acetaminophen 325 mg tablet RxNorm: 481101 1 Tablet(s) PO daily 06/09/2017 06/18/2017 Inactive testosterone cypionate 200 mg/mL intramuscular oil RxNorm: 219381 1/2 Milliliter(s ) IM 06/09/2017 06/09/2017 Inactive testosterone cypionate 200 mg/mL intramuscular oil RxNorm: 030382 Milliliter(s) IM 05/27/2017 05/27/2017 Inactive testosterone cypionate 200 mg/mL intramuscular oil RxNorm: 778899 Milliliter(s) IM 05/13/2017 05/13/2017 Inactive potassium chloride ER 10 mEq capsule,extended release RxNorm: 313191 1 Capsule(s) PO daily 05/07/2017 11/02/2017 Inactive Vitamin D2 50,000 unit capsule RxNorm: 567804 1 Capsule(s) PO QW 05/06/2017 05/05/2017 Inactive take with OTC vitamin d 2,000 units QD testosterone cypionate 200 mg/mL intramuscular kit RxNorm: 630887 1/2 kit IM 2 x month 05/06/2017 08/27/2017 Inactive Vitamin D2 50,000 unit capsule RxNorm: 965202 1 Capsule(s) PO QW 05/06/2017 08/03/2017 Inactive take with OTC vitamin d 2,000 units QD testosterone cypionate 200 mg/mL intramuscular oil RxNorm: 287431 1/2 Milliliter(s ) IM 04/29/2017 04/29/2017 Inactive fluorouracil 5 % topical cream RxNorm: 447421 1 Application TOP BID 04/28/2017 05/07/2017 Inactive testosterone cypionate 200 mg/mL intramuscular kit RxNorm: 486514 1/2 IM 2 x month 04/28/2017 05/05/2017 Inactive Pamelor 10 mg capsule RxNorm: 457141 1 Capsule(s) PO daily No Start Date Active gabapentin 300 mg capsule RxNorm: 764689 6 Capsule(s) PO daily No Start Date Active cyclobenzaprine 5 mg tablet RxNorm: 133309 1 Tablet(s) PO as needed No Start Date Active diclofenac 1 % topical gel RxNorm: 272867 1 Gram(s) TOP as needed No Start Date Active clopidogrel 75 mg tablet RxNorm: 583064 1 Tablet(s) PO daily No Start Date Active meloxicam 15 mg tablet RxNorm: 561643 1 Tablet(s) PO daily No Start Date 07/30/2017 Inactive potassium chloride ER 10 mEq tablet,extended release RxNorm: 745561 1 Tablet(s) PO daily No Start Date 05/06/2017 Inactive hydrocodone 5 mg-acetaminophen 325 mg tablet RxNorm: 601196 1 Tablet(s) PO daily No Start Date 06/08/2017 Inactive furosemide 40 mg tablet RxNorm: 601233 1 Tablet(s) PO daily No Start Date 07/29/2017 Inactive atorvastatin 40 mg tablet RxNorm: 154282 1 Tablet(s) PO QHS No Start Date 07/29/2017 Inactive Medication Administered Medication Codes Instructions Start Date Status testosterone cypionate 200 mg/mL intramuscular oil RxNorm: 8408480 Milliliter 02/19/2018 No longer Active testosterone cypionate 200 mg/mL intramuscular oil RxNorm: 366071 Milliliter 02/03/2018 No longer Active Kenalog 40 mg/mL suspension for injection RxNorm: 0635611 Milliliter 01/07/2018 No longer Active ceftriaxone 500 mg solution for injection RxNorm: 9431868 01/07/2018 No longer Active testosterone cypionate 200 mg/mL intramuscular oil RxNorm: 413377 /2Milliliter 01/05/2018 No longer Active testosterone cypionate 200 mg/mL intramuscular oil RxNorm: 048919 Milliliter 12/15/2017 No longer Active testosterone cypionate 200 mg/mL intramuscular oil RxNorm: 402473 /2Milliliter 12/04/2017 No longer Active testosterone cypionate 200 mg/mL intramuscular oil RxNorm: 999860 /2Milliliter 11/17/2017 No longer Active testosterone cypionate 200 mg/mL intramuscular oil RxNorm: 733236 Milliliter 10/22/2017 No longer Active Kenalog 40 mg/mL suspension for injection RxNorm: 0093501 Milliliter 10/06/2017 No longer Active testosterone cypionate 200 mg/mL intramuscular oil RxNorm: 706824 Milliliter 10/06/2017 No longer Active testosterone cypionate 200 mg/mL intramuscular oil RxNorm: 392863 Milliliter 09/23/2017 No longer Active testosterone cypionate 200 mg/mL intramuscular oil RxNorm: 097666 Milliliter 08/28/2017 No longer Active testosterone cypionate 200 mg/mL intramuscular oil RxNorm: 191056 /2Milliliter 08/12/2017 No longer Active testosterone cypionate 200 mg/mL intramuscular oil RxNorm: 475687 /2Milliliter 07/28/2017 No longer Active testosterone cypionate 200 mg/mL intramuscular oil RxNorm: 433947 /2Milliliter 07/14/2017 No longer Active testosterone cypionate 200 mg/mL intramuscular oil RxNorm: 584325 /2Milliliter 06/26/2017 No longer Active testosterone cypionate 200 mg/mL intramuscular oil RxNorm: 841399 1/2Milliliter 06/09/2017 No longer Active testosterone cypionate 200 mg/mL intramuscular oil RxNorm: 595606 Milliliter 05/27/2017 No longer Active testosterone cypionate 200 mg/mL intramuscular oil RxNorm: 524370 Milliliter 05/13/2017 No longer Active testosterone cypionate 200 mg/mL intramuscular oil RxNorm: 141718 1/2Milliliter 04/29/2017 No longer Active Immunizations Vaccine [...] ICD-9: 380.4 03/17/2017 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 TNP:Improper Specimen 01/07/2018 Hepatic Alu180 ALBUMIN 3.7 g/dL 08/06/2017 Hepatic Zye615 TPRO 5.9 g/dL 08/06/2017 Hepatic Bif222 GLOB 2.2 g/dL 08/06/2017 Hepatic Bus678 A/G Ratio 1.7 Ratio 08/06/2017 Hepatic Iju001 ALK PHOS 46 U/L 08/06/2017 Hepatic Vlk218 ALT(SGPT) 9 U/L 08/06/2017 Hepatic Fpr138 AST(SGOT) 13 U/L 08/06/2017 Hepatic Jkv153 BILI T 0.6 mg/dL 08/06/2017 Hepatic Dye066 BILI D 0.2 mg/dL 08/06/2017 Hepatic Xhj997 BILI I 0.4 mg/dL 08/06/2017 Testosterone Jwf776 Testo 474.5 ng/dL 08/06/2017 Cbc With Differential [...] 28.5 pg 08/06/2017 Cbc With Differential Ord2 [place]% 11.2 % 08/06/2017 Cbc With Differential Ord2 [...] 1.33 K/ul 08/06/2017 Cbc With Differential Ord2 [place] ABS# 0.6 K/ul 08/06/2017 Cbc With Differential Ord2 Eos ABS# 0.3 K/ul 08/06/2017 Cbc With Differential Ord2 Baso ABS# 0.1 K/ul 08/06/2017 Comp Metabolic Pvx705 NA 140 mEq/L 06/02/2017 Comp Metabolic Pdc497 K 3.8 mEq/L 06/02/2017 Comp Metabolic Bcr315 CL 102 mEq/L 06/02/2017 Comp Metabolic Eee116 CO2 30.0 mEq/L 06/02/2017 Comp Metabolic Kqm456 ANION GAP 12 06/02/2017 Comp Metabolic Jez161 GLUCOSE 100 mg/dL 06/02/2017 Comp Metabolic Xpo696 Creat 1.1 mg/dL 06/02/2017 Comp Metabolic Svh275 eGFR 69 ml/min/1.73m2 06/02/2017 Comp Metabolic Rbb593 BUN 15 mg/dL 06/02/2017 Comp Metabolic Rqi995 B/C Ratio 13.4 Ratio 06/02/2017 Comp Metabolic Oze197 CALCIUM 8.6 mg/dL 06/02/2017 Comp Metabolic Jjd377 ALK PHOS 63 U/L 06/02/2017 Comp Metabolic Koe588 AST(SGOT) 17 U/L 06/02/2017 Comp Metabolic Dmn175 ALT(SGPT) 12 U/L 06/02/2017 Comp Metabolic Rgl142 BILI T 0.5 mg/dL 06/02/2017 Comp Metabolic Kfn932 ALBUMIN 3.9 g/dL 06/02/2017 Comp Metabolic Lcj451 TPRO 6.1 g/dL 06/02/2017 Comp Metabolic Qky452 GLOB 2.2 g/dL 06/02/2017 Comp Metabolic Lay183 A/G Ratio 1.8 Ratio 06/02/2017 Comp Metabolic Nzv061 Osmo 280 mOsmo 06/02/2017 Vitamin D 25 Oh Dmf5197 VITAMIN D, 25 HYDROXY 40.03 ng/mL Cbc [...] 29.7 pg 06/02/2017 Cbc With Differential Ord2 [place]% 10.5 % 06/02/2017 Cbc With Differential Ord2 [...] 1.52 K/ul 06/02/2017 Cbc With Differential Ord2 [place] ABS# 0.6 K/ul 06/02/2017 Cbc With Differential Ord2 Eos ABS# 0.2 K/ul 06/02/2017 Cbc With Differential Ord2 Baso ABS# 0.1 K/ul 06/02/2017 Testosterone Uzo568 Testo 198.4 ng/dL 04/29/2017 Vitamin D 25 Oh Ctx7299 VITAMIN D, 25 HYDROXY 29.25 ng/mL Lipid [...] benign 12/22/2017 None Full Exam - General 1995 Ears/Nose/Throat oral cavity/pharynx/larynx Overall: no masses 12/22/2017 [...] Procedure Codes Date THER/PROPH/DIAG INJ SC/IM CPT-4: 15176 02/19/2018 THER/PROPH/DIAG INJ SC/IM CPT-4: 09238 02/03/2018 THER/PROPH/DIAG INJ SC/IM CPT-4: 89826 01/07/2018 TRIAMCINOLONE ACET INJ NOS CPT-4: J3301 01/07/2018 ROCEPHIN, PER 250 MG CPT-4: J0696 01/07/2018 THER/PROPH/DIAG INJ SC/IM CPT-4: 53872 01/05/2018 THER/PROPH/DIAG INJ SC/IM CPT-4: 68734 12/15/2017 THER/PROPH/DIAG INJ SC/IM CPT-4: 49974 12/04/2017 PPPS, SUBSEQ VISIT CPT -4: G0439 11/27/2017 ADMIN INFLUENZA VIRUS VAC CPT-4: G0008 11/17/2017 FLU VAC NO PRSV 4 FATOU 3 YRS+ CPT-4: 75835 11/17/2017 THER/PROPH/DIAG INJ SC/IM CPT-4: 68629 11/17/2017 THER/PROPH/DIAG INJ SC/IM CPT-4: 31928 10/22/2017 THER/PROPH/DIAG INJ SC/IM CPT-4: 70722 10/06/2017 TRIAMCINOLONE ACET INJ NOS CPT-4: J3301 10/06/2017 THER/PROPH/DIAG INJ SC/IM CPT-4: 84747 09/23/2017 THER/PROPH/DIAG INJ SC/IM CPT-4: 59586 08/28/2017 THER/PROPH/DIAG INJ SC/IM CPT-4: 69111 08/12/2017 THER/PROPH/DIAG INJ SC/IM CPT-4: 44020 07/28/2017 THER/PROPH/DIAG INJ SC/IM CPT-4: 03900 07/14/2017 THER/PROPH/DIAG INJ SC/IM CPT-4: 87306 06/26/2017 THER/PROPH/DIAG INJ SC/IM CPT-4: 67487 06/09/2017 THER/PROPH/DIAG INJ SC/IM CPT-4: 26218 05/27/2017 THER/PROPH/DIAG INJ SC/IM CPT-4: 24706 05/13/2017 THER/PROPH/DIAG INJ SC/IM CPT-4: 98026 04/29/2017 Vital Signs Date Vital 01/07/2018 Blood Pressure 1: 126/66 Code : 8480-6 BMI: 30.1 Code : 51923-4 Heart Rate 1 : 75 bpm Height: 5'10" SpO2: 97% Temperature: 36.5 (C) / 97.7 (F) Weight: 210 lbs 12/22/2017 Blood Pressure 1: 124/70 Code : 8480-6 BMI: 29.7 Code : 86277-1 Heart Rate 1 : 84 bpm Height: 5'10" SpO2: 94% Weight: 207 lbs 12/15/2017 Blood Pressure 1: 122/82 Code : 8480-6 BMI: 30.0 Code : 82915-7 Heart Rate 1 : 82 bpm Height: 5'10" SpO2: 93% Weight: 209 lbs 11/27/2017 Blood Pressure 1: 132/68 Code : 8480-6 BMI: 29.3 Code : 90062-4 Heart Rate 1 : 71 bpm Height: 5'10" SpO2: 97% Waist Measure (cm): 97 cm Weight: 204 lbs 11/17/2017 Blood Pressure 1: 130/80 Code : 8480-6 BMI: 29.3 Code : 70260-7 Heart Rate 1 : 73 bpm Height: 5'10" SpO2: 99% Weight: 204 lbs 10/06/2017 Blood Pressure 1: 124/60 Code : 8480-6 BMI: 28.8 Code : 13765-8 Heart Rate 1 : 70 bpm Height: 5'10" SpO2: 98% Weight: 201 lbs 07/24/2017 Blood Pressure 1: 118/70 Code : 8480-6 BMI: 29.3 Code : 34825-5 Heart Rate 1 : 82 bpm Height: 5'10" SpO2: 96% Weight: 204 lbs 07/14/2017 Blood Pressure 1: 118/72 Code : 8480-6 BMI: 29.1 Code : 61418-9 Heart Rate 1 : 83 bpm Height: 5'10" SpO2: 98% Weight: 203 lbs 06/09/2017 Blood Pressure 1: 120/74 Code : 8480-6 BMI: 29.3 Code : 61900-6 Heart Rate 1 : 91 bpm Height: 5'10" SpO2: 99% Weight: 204 lbs 04/28/2017 Blood Pressure 1: 118/68 Code : 8480-6 BMI: 28.8 Code : 06927-1 Heart Rate 1 : 74 bpm Height: 5'10" SpO2: 96% Weight: 201 lbs 03/14/2017 Blood Pressure 1: 114/74 Code : 8480-6 BMI: 28.6 Code : 44399-8 Heart Rate 1 : 77 bpm Height: [...] Other allergic rhinitis[ICD10: J30.89] Sapphire Hollis MD, [facility] CPT-4: 76191 01/07/2018 ([id number]) 24369 EST. PATIENT, LEVEL III Diagnosis: Spinal stenosis, lumbosacral region[ICD10: M48.07] Diagnosis: Spinal stenosis, cervical region[ICD10: M48.02] Elise Hollis MD, [facility] CPT-4: 09162 12/22/2017 ([id number]) 93122 EST. 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 PATIENT, LEVEL III Diagnosis: Mixed hyperlipidemia[ICD10: E78.2] Diagnosis: Other insomnia[ICD10: G47.09] eLora Hollis MD, [facility] CPT- 4: 64710 11/17/2017 [id number] EST. PATIENT, LEVEL III Diagnosis: Acute laryngopharyngitis[ICD10: J06.0] Diagnosis: Other allergic rhinitis[ICD10: J30.89] Sapphire Hollis MD, [facility] CPT-4: 41214 10/06/2017 70300 EST. PATIENT, LEVEL III Diagnosis: Pain in left shoulder[ICD10: M25.512] Sapphire Hollis MD, [facility] CPT-4: 80554 07/24/2017 ([id number]) 41808 EST. 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] Leora Hollis MD, [facility] CPT-4: 73368 04/28/2017 ([id number]) Miscellaneous no charge Diagnosis: Impacted cerumen, bilateral[ICD10: H61.23] Leora Hollis MD, [facility] CPT-4: 98633 03/17/2017 ([id number]) OFFICE VISIT, NEW - LEVEL 4 Diagnosis: Mixed hyperlipidemia[ICD10: E78.2] Diagnosis: Chronic pain syndrome[ICD10: G89.4] Diagnosis: Presbycusis, bilateral[ICD10: H91.13] Diagnosis: Impacted cerumen, bilateral[ICD10: H61.23] Diagnosis: Atherosclerotic heart disease of [place] coronary artery without angina pectoris[ICD10: I25.10] Diagnosis: Personal history of other diseases of the circulatory system[ICD10: Z86.79] Leora Hollis MD, [facility] CPT-4: 01652 2017 Plan of Care Planned Activity Notes Codes Status Date Appointment: Nurse Visit 02/19/2018 Patient Education: Patient Medication Summary Completed [...] spray. 01/07/2018 Appointment: Sapphire Oneil WPtel: [facility] (15 min) Moderate 01/07/2018 Patient [...] plan. 12/22/2017 Appointment: Elise Castillo WPtel: [phone] (15 min) Moderate 12/22/2017 Patient Education: Patient Medication Summary Completed 12/22/2017 Visit Plan: Neck and low back pain -will schedule MRI lumbar and cervical spine for further evaluation and proceed as indicated- patient verbalized understanding of plan. 12/15/2017 App[facility]ment[phone] [facility] (15 min) Moderate 12/15/2017 Patient Education: Patient Medication Summary Completed 12/15/2017 Patient Education: Back Pain Completed 12/15/2017 Care Plan: MRI LUMBAR SPINE W/O DYE LOINC : 62896-4 Pending 12/15/2017 Care Plan: MRI NECK SPINE W/O DYE LOINC : 80306-9 Pending 12/15/2017 Appointment: Injection 12/04/2017 Patient Education: [...] surrogate. 11/27/2017 Appointment: Sapphire Oneil [facility]el[facility] [phone] [facility] [facility] 11/27/2017 Patient [...] sleep 11/17/2017 Appointment: Le[facility] Hollis WPtel[facility] (15 min) Moderate 11/17/2017 Patient Education: [...] spray. 10/06/2017 Appointment: Leora Hollis WPtel: [facility] (15 min) Moderate 10/06/2017 Appointment: Sapphire Oneil WPtel: [facility] (15 min) Moderate 10/06/2017 Patient Education: [...] Appointment: Sapphire Oneil [facility]Ptel[facility] [phone] [facility] (30 min) Complex 07/24/2017 Patient Education: [...] to medications. 07/14/2017 Appointment: Leora Hollis WPtel: [facility] (15 min) Moderate 07/14/2017 Patient Education: Patient Medication Summary Completed 07/14/2017 Appointment: [facility] [phone] [facility] (15 min) Moderate 07/10/2017 Appointment: Injection [...] night 06/09/2017 Appointment: Leora Hollis WPtel: [phone] [facility] (30 min) Complex 06/09/2017 Patient Education: Patient [...] 15 04/28/2017 Appointment: [facility] Holl[facility]el[facility] [phone] [facility] (30 min) Complex 04/28/2017 Patient Education: [...] wax removal 03/14/2017 Appointment: Leora Hollis WPtel: [facility] New Patient 03/14/2017 Patient Education: Patient Medication Summary Completed 03/14/2017 Instructions Comment REFER FOR PHYSICAL THERAPY AT [facility] -HE HAS A PT HE HAS SEEN [...]
--- OUTSIDE RECORDS SUMMARY | 2018-06-12 09:40 | XMS REPORT | CCD ---
Author Author [facility] Organization [facility] Address [address] [place] [address] Phone Care Team Providers Care Application Tester Name Role Phone PP Unavailable CCM Unavailable Summary Purpose Interface Exchange Insurance Providers Payer name Policy type / Coverage type Covered alliance party ID Effective Begin Date Effective End Date WPS Medicare Part B Medicare Part B [id number] 2017 Unknown [facility] Medicare Part B [id number] 2017 Unknown Family history Father Diagnosis Age At Onset Heart Attack Unknown Social History Social History Element Codes Description Effective Dates Marital status Unknown 03/14/2017 Number of children Unknown 2 03/14/[address]: 8572072 Former smoker Quit 11/03/00; smoke 1/2 pack/day x15 years 03/14/[address]: 106694200 Never drinks alcohol 03/14/2017 Allergies, Adverse Reactions, [...] Active 03/14/2017 Unknown 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 [...] H61.23 03/14/2017 Active 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 ICD-10: I25.10 03/14/2017 Active Chronic pain syndrome ICD-9: 338.4 ICD-10: G89.4 03/14/2017 Active Personal history of other diseases of the circulatory system ICD-9: V12.59 ICD-10: Z86.79 03/14/2017 Active Presbycusis, 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 03/14/2017 Active Medications Medication Codes Instructions Start Date Stop Date Status Fill Instructions hydrocodone 5 mg-acetaminophen 325 mg tablet RxNorm: 009780 1-2 Tablet(s) PO Q6 PRN 02/18/2018 04/18/2018 Active zolpidem 5 mg tablet RxNorm: 517316 TAKE ONE TABLET BY MOUTH EVERY NIGHT AT BEDTIME NEEDED 02/13/2018 03/14/2018 Active meloxicam 15 mg tablet RxNorm: 688281 TAKE ONE TABLET BY MOUTH DAILY 02/13/2018 08/11/2018 Active testosterone cypionate 200 mg/mL intramuscular kit RxNorm: 136302 1/2 Milliliter(s ) IM [id number] 02/03/2018 08/01/2018 Active testosterone cypionate 200 mg/mL intramuscular oil RxNorm: 891829 Milliliter(s) IM 02/03/2018 02/03/2018 Inactive prednisone 20 mg tablet RxNorm: 013938 2 Tablet(s) PO QAM 01/0901/13/2018 Inactive cefdinir 300 mg capsule RxNorm: 807356 1 Capsule(s) PO BID 01/18/2018 Inactive prednisone 20 mg tablet RxNorm: 340937 2 Tablet(s) PO QAM 01/0901/08/2018 Inactive cefdinir 300 mg capsule RxNorm: 779179 1 Capsule(s) PO BID 01/08/2018 Inactive Zithromax Z-Timothy 250 mg tablet RxNorm: 403867 1 Tablet(s) PO UD 01/07/2018 No Stop Date Active Kenalog 40 mg/mL suspension for injection RxNorm: 0935343 Milliliter(s) Inj 01/07/2018 01/07/2018 Inactive ceftriaxone 500 mg solution for injection RxNorm: 4511432 Inj 01/07/2018 01/07/2018 Inactive testosterone cypionate 200 mg/mL intramuscular oil RxNorm: 532441 1/2 Milliliter(s ) IM 01/05/2018 01/05/2018 Inactive hydrocodone 5 mg-acetaminophen 325 mg tablet RxNorm: 338448 1-2 Tablet(s) PO Q6 PRN 12/22/2017 02/17/2018 Inactive zolpidem 5 mg tablet RxNorm: 622589 1 Tablet(s) PO 30 min before QHS 12/15/2017 02/12/2018 Inactive testosterone cypionate 200 mg/mL intramuscular oil RxNorm: 401656 Milliliter(s) IM 12/15/2017 12/15/2017 Inactive testosterone cypionate 200 mg/mL intramuscular oil RxNorm: 473367 1/2 Milliliter(s ) IM 12/04/2017 12/04/2017 Inactive testosterone cypionate 200 mg/mL intramuscular oil RxNorm: 366872 1/2 Milliliter(s ) IM 11/17/2017 11/17/2017 Inactive potassium chloride ER 10 mEq capsule,extended release RxNorm: 061819 TAKE ONE CAPSULE BY MOUTH DAILY 11/11/20172018 Active testosterone cypionate 200 mg/mL intramuscular oil RxNorm: 966348 Milliliter(s) IM 10/22/2017 10/22/2017 Inactive zolpidem 5 mg tablet RxNorm: 411411 1 Tablet(s) PO 30 min before QHS 10/15/2017 10/14/2017 Inactive zolpidem 5 mg tablet RxNorm: 595892 1 Tablet(s) PO 30 min before QHS 10/15/2017 12/13/2017 Inactive Zithromax Z-Timothy 250 mg tablet RxNorm: 782763 1 Tablet(s) PO UD 10/07/2017 11/16/2017 Inactive testosterone cypionate 200 mg/mL intramuscular oil RxNorm: 640008 Milliliter(s) IM 10/06/2017 10/06/2017 Inactive Kenalog 40 mg/mL suspension for injection RxNorm: 3982817 Milliliter(s) Inj 10/06/2017 10/06/2017 Inactive Zithromax Z-Timothy 250 mg tablet RxNorm: 315549 1 Tablet(s) PO UD 10/06/2017 10/06/2017 Inactive testosterone cypionate 200 mg/mL intramuscular oil RxNorm: 676331 Milliliter(s) IM 09/23/2017 09/23/2017 Inactive testosterone cypionate 200 mg/mL intramuscular kit RxNorm: 303100 1/2 Milliliter(s ) IM [id number] 08/28/2017 02/02/2018 Inactive meloxicam 15 mg tablet RxNorm: 964444 TAKE ONE TABLET BY MOUTH DAILY 08/28/2017 02/12/2018 Inactive testosterone cypionate 200 mg/mL intramuscular oil RxNorm: 910315 Milliliter(s) IM 08/28/2017 08/28/2017 Inactive testosterone cypionate 200 mg/mL intramuscular oil RxNorm: 578957 1/2 Milliliter(s ) IM 08/12/2017 08/12/2017 Inactive meloxicam 15 mg tablet RxNorm: 711913 1 Tablet(s) PO daily 08/201708/27/2017 Inactive atorvastatin 40 mg tablet RxNorm: 300020 TAKE ONE TABLET BY MOUTH DAILY 07/30/2017 02/24/2018 Active furosemide 40 mg tablet RxNorm: 126256 TAKE ONE TABLET BY MOUTH DAILY 07/30/2017 02/24/2018 Active testosterone cypionate 200 mg/mL intramuscular oil RxNorm: 613766 1/2 Milliliter(s ) IM 07/28/2017 07/28/2017 Inactive testosterone cypionate 200 mg/mL intramuscular oil RxNorm: 998324 1/2 Milliliter(s ) IM 07/14/2017 07/14/2017 Inactive testosterone cypionate 200 mg/mL intramuscular oil RxNorm: 882695 1/2 Milliliter(s ) IM 06/26/2017 06/26/2017 Inactive hydrocodone 5 mg-acetaminophen 325 mg tablet RxNorm: 718838 1 Tablet(s) PO QHS and 1 tab PO daily PRN pain 06/09/2017 Inactive hydrocodone 5 mg-acetaminophen 325 mg tablet RxNorm: 571551 1 Tablet(s) PO daily 06/09/2017 06/18/2017 Inactive testosterone cypionate 200 mg/mL intramuscular oil RxNorm: 886277 1/2 Milliliter(s ) IM 06/09/2017 06/09/2017 Inactive testosterone cypionate 200 mg/mL intramuscular oil RxNorm: 065689 Milliliter(s) IM 05/27/2017 05/27/2017 Inactive testosterone cypionate 200 mg/mL intramuscular oil RxNorm: 914169 Milliliter(s) IM 05/13/2017 05/13/2017 Inactive potassium chloride ER 10 mEq capsule,extended release RxNorm: 718496 1 Capsule(s) PO daily 05/07/2017 11/02/2017 Inactive Vitamin D2 50,000 unit capsule RxNorm: 138370 1 Capsule(s) PO QW 05/06/2017 05/05/2017 Inactive take with OTC vitamin d 2,000 units QD testosterone cypionate 200 mg/mL intramuscular kit RxNorm: 098487 1/2 kit IM 2 x month 05/06/2017 08/27/2017 Inactive Vitamin D2 50,000 unit capsule RxNorm: 273858 1 Capsule(s) PO QW 05/06/2017 08/03/2017 Inactive take with OTC vitamin d 2,000 units QD testosterone cypionate 200 mg/mL intramuscular oil RxNorm: 091206 1/2 Milliliter(s ) IM 04/29/2017 04/29/2017 Inactive fluorouracil 5 % topical cream RxNorm: 845846 1 Application TOP BID 04/28/2017 05/07/2017 Inactive testosterone cypionate 200 mg/mL intramuscular kit RxNorm: 495037 1/2 IM 2 x month 04/28/2017 05/05/2017 Inactive Pamelor 10 mg capsule RxNorm: 002785 1 Capsule(s) PO daily No Start Date Active gabapentin 300 mg capsule RxNorm: 123764 6 Capsule(s) PO daily No Start Date Active cyclobenzaprine 5 mg tablet RxNorm: 497264 1 Tablet(s) PO as needed No Start Date Active diclofenac 1 % topical gel RxNorm: 815343 1 Gram(s) TOP as needed No Start Date Active clopidogrel 75 mg tablet RxNorm: 578055 1 Tablet(s) PO daily No Start Date Active meloxicam 15 mg tablet RxNorm: 182258 1 Tablet(s) PO daily No Start Date 07/30/2017 Inactive potassium chloride ER 10 mEq tablet,extended release RxNorm: 543453 1 Tablet(s) PO daily No Start Date 05/06/2017 Inactive hydrocodone 5 mg-acetaminophen 325 mg tablet RxNorm: 862706 1 Tablet(s) PO daily No Start Date 06/08/2017 Inactive furosemide 40 mg tablet RxNorm: 595176 1 Tablet(s) PO daily No Start Date 07/29/2017 Inactive atorvastatin 40 mg tablet RxNorm: 243037 1 Tablet(s) PO QHS No Start Date 07/29/2017 Inactive Medication Administered Medication Codes Instructions Start Date Status testosterone cypionate 200 mg/mL intramuscular oil RxNorm: 742615 Milliliter 02/03/2018 No longer Active Kenalog 40 mg/mL suspension for injection RxNorm: 3536603 Milliliter 01/07/2018 No longer Active ceftriaxone 500 mg solution for injection RxNorm: 2755236 01/07/2018 No longer Active testosterone cypionate 200 mg/mL intramuscular oil RxNorm: 053262 /2Milliliter 01/05/2018 No longer Active testosterone cypionate 200 mg/mL intramuscular oil RxNorm: 440498 Milliliter 12/15/2017 No longer Active testosterone cypionate 200 mg/mL intramuscular oil RxNorm: 594003 /2Milliliter 12/04/2017 No longer Active testosterone cypionate 200 mg/mL intramuscular oil RxNorm: 239401 /2Milliliter 11/17/2017 No longer Active testosterone cypionate 200 mg/mL intramuscular oil RxNorm: 160277 Milliliter 10/22/2017 No longer Active testosterone cypionate 200 mg/mL intramuscular oil RxNorm: 110780 Milliliter 10/06/2017 No longer Active Kenalog 40 mg/mL suspension for injection RxNorm: 4720376 Milliliter 10/06/2017 No longer Active testosterone cypionate 200 mg/mL intramuscular oil RxNorm: 801112 Milliliter 09/23/2017 No longer Active testosterone cypionate 200 mg/mL intramuscular oil RxNorm: 425014 Milliliter 08/28/2017 No longer Active testosterone cypionate 200 mg/mL intramuscular oil RxNorm: 422308 /2Milliliter 08/12/2017 No longer Active testosterone cypionate 200 mg/mL intramuscular oil RxNorm: 194138 /2Milliliter 07/28/2017 No longer Active testosterone cypionate 200 mg/mL intramuscular oil RxNorm: 303557 /2Milliliter 07/14/2017 No longer Active testosterone cypionate 200 mg/mL intramuscular oil RxNorm: 628379 /2Milliliter 06/26/2017 No longer Active testosterone cypionate 200 mg/mL intramuscular oil RxNorm: 192833 /2Milliliter 06/09/2017 No longer Active testosterone cypionate 200 mg/mL intramuscular oil RxNorm: 884122 Milliliter 05/27/2017 No longer Active testosterone cypionate 200 mg/mL intramuscular oil RxNorm: 575101 Milliliter 05/13/2017 No longer Active testosterone cypionate 200 mg/mL intramuscular oil RxNorm: 504040 1/2Milliliter 04/29/2017 No longer Active Immunizations Vaccine Codes Date Status Influenza CVX: 141 11/17/2017 completed Assessments Condition Codes Effective Dates 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 ICD-9: 257.2 02/03/2018 Other malaise ICD-10: R53.81 ICD-9: 780.79 01/07/2018 [...] ICD-9: 380.4 03/17/2017 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 TNP:Improper Specimen 01/07/2018 C A/B FLU [id number] Influenza Intrp B AG: PRID:PT:NOSE:NOM:IF TNP:Improper Specimen 01/07/2018 Hepatic Btz370 ALBUMIN 3.7 g/dL 08/06/2017 Hepatic Whi640 TPRO 5.9 g/dL 08/06/2017 Hepatic Kdk619 GLOB 2.2 g/dL 08/06/2017 Hepatic Lla987 A/G Ratio 1.7 Ratio 08/06/2017 Hepatic Epk029 ALK PHOS 46 U/L 08/06/2017 Hepatic Szs796 ALT(SGPT) 9 U/L 08/06/2017 Hepatic Mta459 AST(SGOT) 13 U/L 08/06/2017 Hepatic Jqh077 BILI T 0.6 mg/dL 08/06/2017 Hepatic Inh637 BILI D 0.2 mg/dL 08/06/2017 Hepatic Xdw532 BILI I 0.4 mg/dL 08/06/2017 Testosterone Wfg508 Testo 474.5 ng/dL 08/06/2017 Cbc With Differential [...] 28.5 pg 08/06/2017 Cbc With Differential Ord2 Hyde% 11.2 % 08/06/2017 Cbc With Differential Ord2 [...] 1.33 K/ul 08/06/2017 Cbc With Differential Ord2 Hyde ABS# 0.6 K/ul 08/06/2017 Cbc With Differential Ord2 Eos ABS# 0.3 K/ul 08/06/2017 Cbc With Differential Ord2 Baso ABS# 0.1 K/ul 08/06/2017 Comp Metabolic Hpz798 NA 140 mEq/L 06/02/2017 Comp Metabolic Fds551 K 3.8 mEq/L 06/02/2017 Comp Metabolic Nww384 CL 102 mEq/L 06/02/2017 Comp Metabolic Mhm611 CO2 30.0 mEq/L 06/02/2017 Comp Metabolic Nsx814 ANION GAP 12 06/02/2017 Comp Metabolic Cqr676 GLUCOSE 100 mg/dL 06/02/2017 Comp Metabolic Seq236 Creat 1.1 mg/dL 06/02/2017 Comp Metabolic Cui503 eGFR 69 ml/min/1.73m2 06/02/2017 Comp Metabolic Kdc095 BUN 15 mg/dL 06/02/2017 Comp Metabolic Toi492 B/C Ratio 13.4 Ratio 06/02/2017 Comp Metabolic Ivy877 CALCIUM 8.6 mg/dL 06/02/2017 Comp Metabolic Ets849 ALK PHOS 63 U/L 06/02/2017 Comp Metabolic Xup244 AST(SGOT) 17 U/L 06/02/2017 Comp Metabolic Xvf607 ALT(SGPT) 12 U/L 06/02/2017 Comp Metabolic Sww071 BILI T 0.5 mg/dL 06/02/2017 Comp Metabolic Phx201 ALBUMIN 3.9 g/dL 06/02/2017 Comp Metabolic Kyd347 TPRO 6.1 g/dL 06/02/2017 Comp Metabolic Ela740 GLOB 2.2 g/dL 06/02/2017 Comp Metabolic Uya355 A/G Ratio 1.8 Ratio 06/02/2017 Comp Metabolic Auk455 Osmo 280 mOsmo 06/02/2017 Vitamin D 25 Oh Fmo9163 VITAMIN D, 25 HYDROXY 40.03 ng/mL Cbc [...] 93.0 fl 06/02/2017 Cbc With Differential Ord2 Hyde% 10.5 % 06/02/2017 Cbc With Differential Ord2 [...] 1.52 K/ul 06/02/2017 Cbc With Differential Ord2 Hyde ABS# 0.6 K/ul 06/02/2017 Cbc With Differential Ord2 Eos ABS# 0.2 K/ul 06/02/2017 Cbc With Differential Ord2 Baso ABS# 0.1 K/ul 06/02/2017 Testosterone Isq646 Testo 198.4 ng/dL 04/29/2017 Vitamin D 25 Oh Aat0030 VITAMIN D, 25 HYDROXY 29.25 ng/mL Lipid [...] Procedure Codes Date THER/PROPH/DIAG INJ SC/IM CPT-4: 88393 02/03/2018 THER/PROPH/DIAG INJ SC/IM CPT-4: 86076 01/07/2018 TRIAMCINOLONE ACET INJ NOS CPT-4: J3301 01/07/2018 ROCEPHIN, PER 250 MG CPT-4: J0696 01/07/2018 THER/PROPH/DIAG INJ SC/IM CPT-4: 22333 01/05/2018 THER/PROPH/DIAG INJ SC/IM CPT-4: 78536 12/15/2017 THER/PROPH/DIAG INJ SC/IM CPT-4: 68672 12/04/2017 PPPS, SUBSEQ VISIT CPT -4: G0439 11/27/2017 ADMIN INFLUENZA VIRUS VAC CPT-4: G0008 11/17/2017 FLU VAC NO PRSV 4 FATOU 3 YRS+ CPT-4: 09117 11/17/2017 THER/PROPH/DIAG INJ SC/IM CPT-4: 52265 11/17/2017 THER/PROPH/DIAG INJ SC/IM CPT-4: 34951 10/22/2017 THER/PROPH/DIAG INJ SC/IM CPT-4: 89516 10/06/2017 TRIAMCINOLONE ACET INJ NOS CPT-4: J3301 10/06/2017 THER/PROPH/DIAG INJ SC/IM CPT-4: 96040 09/23/2017 THER/PROPH/DIAG INJ SC/IM CPT-4: 25332 08/28/2017 THER/PROPH/DIAG INJ SC/IM CPT-4: 68782 08/12/2017 THER/PROPH/DIAG INJ SC/IM CPT-4: 90013 07/28/2017 THER/PROPH/DIAG INJ SC/IM CPT-4: 35785 07/14/2017 THER/PROPH/DIAG INJ SC/IM CPT-4: 77531 06/26/2017 THER/PROPH/DIAG INJ SC/IM CPT-4: 23392 06/09/2017 THER/PROPH/DIAG INJ SC/IM CPT-4: 17361 05/27/2017 THER/PROPH/DIAG INJ SC/IM CPT-4: 28833 05/13/2017 THER/PROPH/DIAG INJ SC/IM CPT-4: 53113 04/29/2017 Vital Signs Date Vital 01/07/2018 Blood Pressure 1: 126/66 Code : 8480-6 BMI: 30.1 Code : 34093-1 Heart Rate 1 : 75 bpm Height: 5'10" SpO2: 97% Temperature: 36.5 (C) / 97.7 (F) Weight: 210 lbs 12/22/2017 Blood Pressure 1: 124/70 Code : 8480-6 BMI: 29.7 Code : 07461-9 Heart Rate 1 : 84 bpm Height: 5'10" SpO2: 94% Weight: 207 lbs 12/15/2017 Blood Pressure 1: 122/82 Code : 8480-6 BMI: 30.0 Code : 91948-6 Heart Rate 1 : 82 bpm Height: 5'10" SpO2: 93% Weight: 209 lbs 11/27/2017 Blood Pressure 1: 132/68 Code : 8480-6 BMI: 29.3 Code : 22768-1 Heart Rate 1 : 71 bpm Height: 5'10" SpO2: 97% Waist Measure (cm): 97 cm Weight: 204 lbs 11/17/2017 Blood Pressure 1: 130/80 Code : 8480-6 BMI: 29.3 Code : 48222-2 Heart Rate 1 : 73 bpm Height: 5'10" SpO2: 99% Weight: 204 lbs 10/06/2017 Blood Pressure 1: 124/60 Code : 8480-6 BMI: 28.8 Code : 84101-8 Heart Rate 1 : 70 bpm Height: 5'10" SpO2: 98% Weight: 201 lbs 07/24/2017 Blood Pressure 1: 118/70 Code : 8480-6 BMI: 29.3 Code : 04576-8 Heart Rate 1 : 82 bpm Height: 5'10" SpO2: 96% Weight: 204 lbs 07/14/2017 Blood Pressure 1: 118/72 Code : 8480-6 BMI: 29.1 Code : 20776-8 Heart Rate 1 : 83 bpm Height: 5'10" SpO2: 98% Weight: 203 lbs 06/09/2017 Blood Pressure 1: 120/74 Code : 8480-6 BMI: 29.3 Code : 48684-4 Heart Rate 1 : 91 bpm Height: 5'10" SpO2: 99% Weight: 204 lbs 04/28/2017 Blood Pressure 1: 118/68 Code : 8480-6 BMI: 28.8 Code : 49069-2 Heart Rate 1 : 74 bpm Height: 5'10" SpO2: 96% Weight: 201 lbs 03/14/2017 Blood Pressure 1: 114/74 Code : 8480-6 BMI: 28.6 Code : 47091-1 Heart Rate 1 : 77 bpm Height: [...] Other allergic rhinitis[ICD10: J30.89] Sapphire Hollis MD, [facility] CPT-4: 56131 01/07/2018 ([id number]) 52541 EST. PATIENT, LEVEL III Diagnosis: Spinal stenosis, lumbosacral region[ICD10: M48.07] Diagnosis: Spinal stenosis, cervical region[ICD10: M48.02] Elise Hollis MD, [facility] CPT-4: 85601 12/22/2017 ([id number]) 80587 EST. PATIENT, LEVEL III Diagnosis: Cervicalgia[ICD10: M54.2] Diagnosis: Low back pain[ICD10: M54.5] Diagnosis: Testicular hypofunction[ICD10: E29.1] Elise Hollis MD, [facility] CPT-4: 89668 12/15/2017 ([id number]) 14171 EST. PATIENT, LEVEL III Diagnosis: Mixed hyperlipidemia[ICD10: E78.2] Diagnosis: Other insomnia[ICD10: G47.09] Leora Hollis MD, [facility] CPT- 4: 95252 11/17/2017 [id number] EST. PATIENT, LEVEL III Diagnosis: Acute laryngopharyngitis[ICD10: J06.0] Diagnosis: Other allergic rhinitis[ICD10: J30.89] Sapphire Hollis MD, [facility] CPT-4: 84713 10/06/2017 [id number] EST. PATIENT, LEVEL III Diagnosis: Pain in left shoulder[ICD10: M25.512] Sapphire Hollis MD, [facility] CPT-4: 39380 07/24/2017 ([id number]) 72473 EST. PATIENT, LEVEL IV Diagnosis: Mixed hyperlipidemia[ICD10: E78.2] Diagnosis: Chronic obstructive pulmonary disease, unspecified[ICD10: J44.9] Diagnosis: Testicular hypofunction[ICD10: E29.1] Leora Hollis MD, [facility] CPT-4: 90019 07/14/2017 ([id number]) 21887 EST. 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] Diagnosis: Mixed hyperlipidemia[ICD10: E78.2] Diagnosis: Hypoxemia[ICD10: R09.02] Leora Hollis MD, [facility] CPT-4: 69804 06/09/2017 ([id number]) 75673 EST. 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] Leora Hollis MD, [facility] CPT-4: 26773 04/28/2017 ([id number]) Miscellaneous no charge Diagnosis: Impacted cerumen, bilateral[ICD10: H61.23] Leora Hollis MD, [facility] CPT-4: 53695 03/17/2017 ([id number]) OFFICE VISIT, NEW - LEVEL 4 Diagnosis: Mixed hyperlipidemia[ICD10: E78.2] Diagnosis: Chronic pain syndrome[ICD10: G89.4] Diagnosis: Presbycusis, bilateral[ICD10: H91.13] Diagnosis: Impacted cerumen, bilateral[ICD10: H61.23] Diagnosis: Atherosclerotic heart disease of [place] coronary artery without angina pectoris[ICD10: I25.10] Diagnosis: Personal history of other diseases of the circulatory system[ICD10: Z86.79] Leora Hollis MD, [facility] CPT-4: 13559 2017 Plan of Care Planned Activity Notes Codes Status Date Appointment: Injection 02/03/2018 Patient Education: Patient Medication [...] allergy spray. 01/07/2018 Appointment: Sapphire Oneil WPtel: [facility] (15 min) Moderate 01/07/2018 Patient Education: Patient [...] of plan. 12/22/2017 Appointment: Elise Castillo WPtel: [address] [place], [place] [phone] (15 min) Moderate 12/22/2017 Patient Education: Patient Medication Summary Completed 12/22/2017 Visit Plan: Neck and low back pain -will schedule MRI lumbar and cervical spine for further evaluation and proceed as indicated- patient verbalized understanding of plan. 12/15/2017 Appointment: Elise Castillo WPtel: [phone] (15 min) Moderate 12/15/2017 Patient Education: Patient Medication Summary Completed 12/15/2017 Patient Education: Back Pain Completed 12/15/2017 Care Plan: MRI LUMBAR SPINE W/O DYE LOINC : 80010-9 Pending 12/15/2017 Care Plan: MRI NECK SPINE W/O DYE LOINC : 82539-8 Pending 12/15/2017 Appointment: Injection 12/04/2017 Patient Education: [...] surrogate. 11/27/2017 Appointment[facility]il [phone] [facility] - Annual Wellness Visit 11/27/2017 [...] sleep 11/17/2017 [phone] (15 min) Moderate 11/17/2017 Patient Education: Patient [...] allergy spray. 10/06/2017 Appointment: Leora Hollis WPtel: [phone] [facility] (15 min) Moderate 10/06/2017 Appointment: Sapphire Oneil WPtel: [facility] (15 min) Moderate 10/06/2017 Patient Education: [...] plan. 07/24/2017 Appointment: Sapphire Oneil WPtel: [phone] [facility] (30 min) Complex 07/24/2017 Patient Education: [...] medications. 07/14/2017 Appointment: [facility] Holl[phone] (15 min) Moderate 07/14/2017 Patient Education: Patient Medication Summary Completed 07/14/2017 Appointment: [facility] Hollis [facility]el[phone] (15 min) Moderate 07/10/2017 Appointment: [...] night 06/09/2017 Appointment: Le[facility] Hollis [facility]Ptel[phone] [place] (30 min) Complex 06/09/2017 [...] 15 04/28/2017 Appointment: [facility] Hollis [facility]el[phone] (30 min) Complex 04/28/2017 Patient [...] removal 03/14/2017 Appointment: Leora Hollis WPtel: [phone] [facility] New Patient 03/14/2017 Patient Education: Patient Medication [...] allergy spray. REFER FOR PHYSICAL THERAPY AT [facility] -HE HAS A PT HE HAS [...]
--- OUTSIDE RECORDS SUMMARY | 2018-06-12 09:41 | XMS REPORT | CCD ---
Author Author [facility] Organization [facility] Address [address] [place] [address] Phone Care Team Providers Care Squeegee Operator Name Role Phone PP Unavailable CCM Unavailable Summary Purpose Interface Exchange Insurance Providers Payer name Policy type / Coverage type Covered constitution party ID Effective Begin Date Effective End Date WPS Medicare Part B Medicare Part B [id number] 2017 Unknown [facility] Medicare Part B [id number] 2017 Unknown Family history Father Diagnosis Age At Onset Heart Attack Unknown Social History Social History Element Codes Description Effective Dates Marital status Unknown 03/14/2017 Number of children Unknown 2 03/14/[address]: 2866600 Former smoker Quit 11/03/00; smoke 1/2 pack/day x15 years 03/14/[address]: 516511881 Never drinks alcohol 03/14/2017 Allergies, Adverse Reactions, [...] Active 03/14/2017 Unknown 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 [...] H61.23 03/14/2017 Active 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 ICD-10: I25.10 03/14/2017 Active Chronic pain syndrome ICD-9: 338.4 ICD-10: G89.4 03/14/2017 Active Personal history of other diseases of the circulatory system ICD-9: V12.59 ICD-10: Z86.79 03/14/2017 Active Presbycusis, 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 03/14/2017 Active Medications Medication Codes Instructions Start Date Stop Date Status Fill Instructions zolpidem 5 mg tablet RxNorm: 949470 TAKE ONE TABLET BY MOUTH EVERY NIGHT AT BEDTIME NEEDED 02/13/2018 03/14/2018 Active meloxicam 15 mg tablet RxNorm: 123895 TAKE ONE TABLET BY MOUTH DAILY 02/13/2018 08/11/2018 Active testosterone cypionate 200 mg/mL intramuscular kit RxNorm: 557970 1/2 Milliliter(s ) IM [id number] 02/03/2018 08/01/2018 Active testosterone cypionate 200 mg/mL intramuscular oil RxNorm: 385549 Milliliter(s) IM 02/03/2018 02/03/2018 Inactive prednisone 20 mg tablet RxNorm: 901921 2 Tablet(s) PO QAM 01/0901/13/2018 Inactive cefdinir 300 mg capsule RxNorm: 326789 1 Capsule(s) PO BID 01/18/2018 Inactive prednisone 20 mg tablet RxNorm: 244580 2 Tablet(s) PO QAM 01/0901/08/2018 Inactive cefdinir 300 mg capsule RxNorm: 340039 1 Capsule(s) PO BID 01/08/2018 Inactive Zithromax Z-Timothy 250 mg tablet RxNorm: 360587 1 Tablet(s) PO UD 01/07/2018 No Stop Date Active Kenalog 40 mg/mL suspension for injection RxNorm: 6977014 Milliliter(s) Inj 01/07/2018 01/07/2018 Inactive ceftriaxone 500 mg solution for injection RxNorm: 3656924 Inj 01/07/2018 01/07/2018 Inactive testosterone cypionate 200 mg/mL intramuscular oil RxNorm: 956099 1/2 Milliliter(s ) IM 01/05/2018 01/05/2018 Inactive hydrocodone 5 mg-acetaminophen 325 mg tablet RxNorm: 135388 1-2 Tablet(s) PO Q6 PRN 12/22/2017 02/19/2018 Active zolpidem 5 mg tablet RxNorm: 228466 1 Tablet(s) PO 30 min before QHS 12/15/2017 02/12/2018 Inactive testosterone cypionate 200 mg/mL intramuscular oil RxNorm: 384182 Milliliter(s) IM 12/15/2017 12/15/2017 Inactive testosterone cypionate 200 mg/mL intramuscular oil RxNorm: 945131 1/2 Milliliter(s ) IM 12/04/2017 12/04/2017 Inactive testosterone cypionate 200 mg/mL intramuscular oil RxNorm: 483041 1/2 Milliliter(s ) IM 11/17/2017 11/17/2017 Inactive potassium chloride ER 10 mEq capsule,extended release RxNorm: 541877 TAKE ONE CAPSULE BY MOUTH DAILY 11/11/20172018 Active testosterone cypionate 200 mg/mL intramuscular oil RxNorm: 450569 Milliliter(s) IM 10/22/2017 10/22/2017 Inactive zolpidem 5 mg tablet RxNorm: 120163 1 Tablet(s) PO 30 min before QHS 10/15/2017 10/14/2017 Inactive zolpidem 5 mg tablet RxNorm: 241187 1 Tablet(s) PO 30 min before QHS 10/15/2017 12/13/2017 Inactive Zithromax Z-Timothy 250 mg tablet RxNorm: 358312 1 Tablet(s) PO UD 10/07/2017 11/16/2017 Inactive testosterone cypionate 200 mg/mL intramuscular oil RxNorm: 242033 Milliliter(s) IM 10/06/2017 10/06/2017 Inactive Kenalog 40 mg/mL suspension for injection RxNorm: 0540460 Milliliter(s) Inj 10/06/2017 10/06/2017 Inactive Zithromax Z-Timothy 250 mg tablet RxNorm: 827795 1 Tablet(s) PO UD 10/06/2017 10/06/2017 Inactive testosterone cypionate 200 mg/mL intramuscular oil RxNorm: 630610 Milliliter(s) IM 09/23/2017 09/23/2017 Inactive testosterone cypionate 200 mg/mL intramuscular kit RxNorm: 866551 1/2 Milliliter(s ) IM [id number] 08/28/2017 02/02/2018 Inactive meloxicam 15 mg tablet RxNorm: 639493 TAKE ONE TABLET BY MOUTH DAILY 08/28/2017 02/12/2018 Inactive testosterone cypionate 200 mg/mL intramuscular oil RxNorm: 410263 Milliliter(s) IM 08/28/2017 08/28/2017 Inactive testosterone cypionate 200 mg/mL intramuscular oil RxNorm: 747155 1/2 Milliliter(s ) IM 08/12/2017 08/12/2017 Inactive meloxicam 15 mg tablet RxNorm: 178578 1 Tablet(s) PO daily 08/201708/27/2017 Inactive atorvastatin 40 mg tablet RxNorm: 946575 TAKE ONE TABLET BY MOUTH DAILY 07/30/2017 02/24/2018 Active furosemide 40 mg tablet RxNorm: 600154 TAKE ONE TABLET BY MOUTH DAILY 07/30/2017 02/24/2018 Active testosterone cypionate 200 mg/mL intramuscular oil RxNorm: 486231 1/2 Milliliter(s ) IM 07/28/2017 07/28/2017 Inactive testosterone cypionate 200 mg/mL intramuscular oil RxNorm: 864183 1/2 Milliliter(s ) IM 07/14/2017 07/14/2017 Inactive testosterone cypionate 200 mg/mL intramuscular oil RxNorm: 999730 1/2 Milliliter(s ) IM 06/26/2017 06/26/2017 Inactive hydrocodone 5 mg-acetaminophen 325 mg tablet RxNorm: 041389 1 Tablet(s) PO QHS and 1 tab PO daily PRN pain 06/09/2017 Inactive hydrocodone 5 mg-acetaminophen 325 mg tablet RxNorm: 653260 1 Tablet(s) PO daily 06/09/2017 06/18/2017 Inactive testosterone cypionate 200 mg/mL intramuscular oil RxNorm: 614409 1/2 Milliliter(s ) IM 06/09/2017 06/09/2017 Inactive testosterone cypionate 200 mg/mL intramuscular oil RxNorm: 443786 Milliliter(s) IM 05/27/2017 05/27/2017 Inactive testosterone cypionate 200 mg/mL intramuscular oil RxNorm: 767508 Milliliter(s) IM 05/13/2017 05/13/2017 Inactive potassium chloride ER 10 mEq capsule,extended release RxNorm: 533102 1 Capsule(s) PO daily 05/07/2017 11/02/2017 Inactive Vitamin D2 50,000 unit capsule RxNorm: 439769 1 Capsule(s) PO QW 05/06/2017 05/05/2017 Inactive take with OTC vitamin d 2,000 units QD testosterone cypionate 200 mg/mL intramuscular kit RxNorm: 235425 1/2 kit IM 2 x month 05/06/2017 08/27/2017 Inactive Vitamin D2 50,000 unit capsule RxNorm: 397102 1 Capsule(s) PO QW 05/06/2017 08/03/2017 Inactive take with OTC vitamin d 2,000 units QD testosterone cypionate 200 mg/mL intramuscular oil RxNorm: 977084 1/2 Milliliter(s ) IM 04/29/2017 04/29/2017 Inactive fluorouracil 5 % topical cream RxNorm: 363356 1 Application TOP BID 04/28/2017 05/07/2017 Inactive testosterone cypionate 200 mg/mL intramuscular kit RxNorm: 139669 1/2 IM 2 x month 04/28/2017 05/05/2017 Inactive Pamelor 10 mg capsule RxNorm: 784542 1 Capsule(s) PO daily No Start Date Active gabapentin 300 mg capsule RxNorm: 514652 6 Capsule(s) PO daily No Start Date Active cyclobenzaprine 5 mg tablet RxNorm: 704072 1 Tablet(s) PO as needed No Start Date Active diclofenac 1 % topical gel RxNorm: 674841 1 Gram(s) TOP as needed No Start Date Active clopidogrel 75 mg tablet RxNorm: 751095 1 Tablet(s) PO daily No Start Date Active meloxicam 15 mg tablet RxNorm: 220901 1 Tablet(s) PO daily No Start Date 07/30/2017 Inactive potassium chloride ER 10 mEq tablet,extended release RxNorm: 169040 1 Tablet(s) PO daily No Start Date 05/06/2017 Inactive hydrocodone 5 mg-acetaminophen 325 mg tablet RxNorm: 967057 1 Tablet(s) PO daily No Start Date 06/08/2017 Inactive furosemide 40 mg tablet RxNorm: 453070 1 Tablet(s) PO daily No Start Date 07/29/2017 Inactive atorvastatin 40 mg tablet RxNorm: 058585 1 Tablet(s) PO QHS No Start Date 07/29/2017 Inactive Medication Administered Medication Codes Instructions Start Date Status testosterone cypionate 200 mg/mL intramuscular oil RxNorm: 366943 Milliliter 02/03/2018 No longer Active Kenalog 40 mg/mL suspension for injection RxNorm: 0873937 Milliliter 01/07/2018 No longer Active ceftriaxone 500 mg solution for injection RxNorm: 6145198 01/07/2018 No longer Active testosterone cypionate 200 mg/mL intramuscular oil RxNorm: 024807 /2Milliliter 01/05/2018 No longer Active testosterone cypionate 200 mg/mL intramuscular oil RxNorm: 742299 Milliliter 12/15/2017 No longer Active testosterone cypionate 200 mg/mL intramuscular oil RxNorm: 075814 /2Milliliter 12/04/2017 No longer Active testosterone cypionate 200 mg/mL intramuscular oil RxNorm: 694759 /2Milliliter 11/17/2017 No longer Active testosterone cypionate 200 mg/mL intramuscular oil RxNorm: 549137 Milliliter 10/22/2017 No longer Active testosterone cypionate 200 mg/mL intramuscular oil RxNorm: 902502 Milliliter 10/06/2017 No longer Active Kenalog 40 mg/mL suspension for injection RxNorm: 9043894 Milliliter 10/06/2017 No longer Active testosterone cypionate 200 mg/mL intramuscular oil RxNorm: 618465 Milliliter 09/23/2017 No longer Active testosterone cypionate 200 mg/mL intramuscular oil RxNorm: 208160 Milliliter 08/28/2017 No longer Active testosterone cypionate 200 mg/mL intramuscular oil RxNorm: 155766 /2Milliliter 08/12/2017 No longer Active testosterone cypionate 200 mg/mL intramuscular oil RxNorm: 489456 /2Milliliter 07/28/2017 No longer Active testosterone cypionate 200 mg/mL intramuscular oil RxNorm: 024797 /2Milliliter 07/14/2017 No longer Active testosterone cypionate 200 mg/mL intramuscular oil RxNorm: 337415 /2Milliliter 06/26/2017 No longer Active testosterone cypionate 200 mg/mL intramuscular oil RxNorm: 016758 /2Milliliter 06/09/2017 No longer Active testosterone cypionate 200 mg/mL intramuscular oil RxNorm: 167974 Milliliter 05/27/2017 No longer Active testosterone cypionate 200 mg/mL intramuscular oil RxNorm: 916980 Milliliter 05/13/2017 No longer Active testosterone cypionate 200 mg/mL intramuscular oil RxNorm: 984378 /2Milliliter 04/29/2017 No longer Active Immunizations Vaccine [...] ICD-9: 380.4 03/17/2017 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 TNP:Improper Specimen 01/07/2018 C A/B FLU [id number] Influenza Intrp B AG: PRID:PT:NOSE:NOM:IF TNP:Improper Specimen 01/07/2018 Hepatic Ynh262 ALBUMIN 3.7 g/dL 08/06/2017 Hepatic Qru079 TPRO 5.9 g/dL 08/06/2017 Hepatic Zdy550 GLOB 2.2 g/dL 08/06/2017 Hepatic Ygv422 A/G Ratio 1.7 Ratio 08/06/2017 Hepatic Tlo032 ALK PHOS 46 U/L 08/06/2017 Hepatic Prf027 ALT(SGPT) 9 U/L 08/06/2017 Hepatic Mwh925 AST(SGOT) 13 U/L 08/06/2017 Hepatic Hbt449 BILI T 0.6 mg/dL 08/06/2017 Hepatic Euk492 BILI D 0.2 mg/dL 08/06/2017 Hepatic Mcn700 BILI I 0.4 mg/dL 08/06/2017 Testosterone Lfv102 Testo 474.5 ng/dL 08/06/2017 Cbc With Differential [...] 28.5 pg 08/06/2017 Cbc With Differential Ord2 Pine% 11.2 % 08/06/2017 Cbc With Differential Ord2 [...] 1.33 K/ul 08/06/2017 Cbc With Differential Ord2 Pine ABS# 0.6 K/ul 08/06/2017 Cbc With Differential Ord2 Eos ABS# 0.3 K/ul 08/06/2017 Cbc With Differential Ord2 Baso ABS# 0.1 K/ul 08/06/2017 Comp Metabolic Jkp478 NA 140 mEq/L 06/02/2017 Comp Metabolic Bdl037 K 3.8 mEq/L 06/02/2017 Comp Metabolic Vgw891 CL 102 mEq/L 06/02/2017 Comp Metabolic Sxj360 CO2 30.0 mEq/L 06/02/2017 Comp Metabolic Ijf849 ANION GAP 12 06/02/2017 Comp Metabolic Txc233 GLUCOSE 100 mg/dL 06/02/2017 Comp Metabolic Kxo267 Creat 1.1 mg/dL 06/02/2017 Comp Metabolic Qcj717 eGFR 69 ml/min/1.73m2 06/02/2017 Comp Metabolic Zes333 BUN 15 mg/dL 06/02/2017 Comp Metabolic Qcf845 B/C Ratio 13.4 Ratio 06/02/2017 Comp Metabolic Ydt643 CALCIUM 8.6 mg/dL 06/02/2017 Comp Metabolic Lej944 ALK PHOS 63 U/L 06/02/2017 Comp Metabolic Fan932 AST(SGOT) 17 U/L 06/02/2017 Comp Metabolic Iww603 ALT(SGPT) 12 U/L 06/02/2017 Comp Metabolic Ide023 BILI T 0.5 mg/dL 06/02/2017 Comp Metabolic Vmd127 ALBUMIN 3.9 g/dL 06/02/2017 Comp Metabolic Whi227 TPRO 6.1 g/dL 06/02/2017 Comp Metabolic Mzz200 GLOB 2.2 g/dL 06/02/2017 Comp Metabolic Ccb814 A/G Ratio 1.8 Ratio 06/02/2017 Comp Metabolic Law582 Osmo 280 mOsmo 06/02/2017 Vitamin D 25 Oh Fgd1545 VITAMIN D, 25 HYDROXY 40.03 ng/mL Cbc [...] 93.0 fl 06/02/2017 Cbc With Differential Ord2 Pine% 10.5 % 06/02/2017 Cbc With Differential Ord2 [...] 1.52 K/ul 06/02/2017 Cbc With Differential Ord2 Pine ABS# 0.6 K/ul 06/02/2017 Cbc With Differential Ord2 Eos ABS# 0.2 K/ul 06/02/2017 Cbc With Differential Ord2 Baso ABS# 0.1 K/ul 06/02/2017 Testosterone Vgo864 Testo 198.4 ng/dL 04/29/2017 Vitamin D 25 Oh Gaj0938 VITAMIN D, 25 HYDROXY 29.25 ng/mL Lipid [...] rhonchi 01/07/2018 None Full Exam - General [facility] Constitutional general appearance Development: well developed 12/22/2017 [...] dentition 06/09/2017 None Full Exam - General 1995 Ears/Nose/Throat [...] Procedure Codes Date THER/PROPH/DIAG INJ SC/IM CPT-4: 07785 02/03/2018 THER/PROPH/DIAG INJ SC/IM CPT-4: 61041 01/07/2018 TRIAMCINOLONE ACET INJ NOS CPT-4: J3301 01/07/2018 ROCEPHIN, PER 250 MG CPT-4: J0696 01/07/2018 THER/PROPH/DIAG INJ SC/IM CPT-4: 13547 01/05/2018 THER/PROPH/DIAG INJ SC/IM CPT-4: 80787 12/15/2017 THER/PROPH/DIAG INJ SC/IM CPT-4: 29300 12/04/2017 PPPS, SUBSEQ VISIT CPT -4: G0439 11/27/2017 ADMIN INFLUENZA VIRUS VAC CPT-4: G0008 11/17/2017 FLU VAC NO PRSV 4 FATOU 3 YRS+ CPT-4: 84062 11/17/2017 THER/PROPH/DIAG INJ SC/IM CPT-4: 17277 11/17/2017 THER/PROPH/DIAG INJ SC/IM CPT-4: 64434 10/22/2017 THER/PROPH/DIAG INJ SC/IM CPT-4: 24662 10/06/2017 TRIAMCINOLONE ACET INJ NOS CPT-4: J3301 10/06/2017 THER/PROPH/DIAG INJ SC/IM CPT-4: 15209 09/23/2017 THER/PROPH/DIAG INJ SC/IM CPT-4: 21868 08/28/2017 THER/PROPH/DIAG INJ SC/IM CPT-4: 05315 08/12/2017 THER/PROPH/DIAG INJ SC/IM CPT-4: 74457 07/28/2017 THER/PROPH/DIAG INJ SC/IM CPT-4: 14616 07/14/2017 THER/PROPH/DIAG INJ SC/IM CPT-4: 84470 06/26/2017 THER/PROPH/DIAG INJ SC/IM CPT-4: 04445 06/09/2017 THER/PROPH/DIAG INJ SC/IM CPT-4: 10250 05/27/2017 THER/PROPH/DIAG INJ SC/IM CPT-4: 01272 05/13/2017 THER/PROPH/DIAG INJ SC/IM CPT-4: 35500 04/29/2017 Vital Signs Date Vital 01/07/2018 Blood Pressure 1: 126/66 Code : 8480-6 BMI: 30.1 Code : 86443-5 Heart Rate 1 : 75 bpm Height: 5'10" SpO2: 97% Temperature: 36.5 (C) / 97.7 (F) Weight: 210 lbs 12/22/2017 Blood Pressure 1: 124/70 Code : 8480-6 BMI: 29.7 Code : 83568-1 Heart Rate 1 : 84 bpm Height: 5'10" SpO2: 94% Weight: 207 lbs 12/15/2017 Blood Pressure 1: 122/82 Code : 8480-6 BMI: 30.0 Code : 85201-1 Heart Rate 1 : 82 bpm Height: 5'10" SpO2: 93% Weight: 209 lbs 11/27/2017 Blood Pressure 1: 132/68 Code : 8480-6 BMI: 29.3 Code : 96355-6 Heart Rate 1 : 71 bpm Height: 5'10" SpO2: 97% Waist Measure (cm): 97 cm Weight: 204 lbs 11/17/2017 Blood Pressure 1: 130/80 Code : 8480-6 BMI: 29.3 Code : 02756-1 Heart Rate 1 : 73 bpm Height: 5'10" SpO2: 99% Weight: 204 lbs 10/06/2017 Blood Pressure 1: 124/60 Code : 8480-6 BMI: 28.8 Code : 54184-2 Heart Rate 1 : 70 bpm Height: 5'10" SpO2: 98% Weight: 201 lbs 07/24/2017 Blood Pressure 1: 118/70 Code : 8480-6 BMI: 29.3 Code : 49094-5 Heart Rate 1 : 82 bpm Height: 5'10" SpO2: 96% Weight: 204 lbs 07/14/2017 Blood Pressure 1: 118/72 Code : 8480-6 BMI: 29.1 Code : 58687-2 Heart Rate 1 : 83 bpm Height: 5'10" SpO2: 98% Weight: 203 lbs 06/09/2017 Blood Pressure 1: 120/74 Code : 8480-6 BMI: 29.3 Code : 15939-0 Heart Rate 1 : 91 bpm Height: 5'10" SpO2: 99% Weight: 204 lbs 04/28/2017 Blood Pressure 1: 118/68 Code : 8480-6 BMI: 28.8 Code : 94355-2 Heart Rate 1 : 74 bpm Height: 5'10" SpO2: 96% Weight: 201 lbs 03/14/2017 Blood Pressure 1: 114/74 Code : 8480-6 BMI: 28.6 Code : 98180-5 Heart Rate 1 : 77 bpm Height: [...] data Encounters Encounter Performer Location Codes Date 33531 EST. PATIENT, LEVEL III Diagnosis: Other malaise[ICD10: R53.81] Diagnosis: Acute laryngopharyngitis[ICD10: J06.0] Diagnosis: Other allergic rhinitis[ICD10: J30.89] Sapphire Hollis MD, [facility] CPT-4: 80550 01/07/2018 ([id number]) 67715 EST. PATIENT, LEVEL III Diagnosis: Spinal stenosis, lumbosacral region[ICD10: M48.07] Diagnosis: Spinal stenosis, cervical region[ICD10: M48.02] Elise Hollis MD, [facility] CPT-4: 49991 12/22/2017 ([id number]) 56972 EST. 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 PATIENT, LEVEL III Diagnosis: Mixed hyperlipidemia[ICD10: E78.2] Diagnosis: Other insomnia[ICD10: G47.09] Leora Hollis MD, [facility] CPT- 4: 11944 11/17/2017 05963 EST. PATIENT, LEVEL III Diagnosis: Acute laryngopharyngitis[ICD10: J06.0] Diagnosis: Other allergic rhinitis[ICD10: J30.89] Sapphire Hollis MD, [facility] CPT-4: 31051 10/06/2017 47519 EST. PATIENT, LEVEL III Diagnosis: Pain in left shoulder[ICD10: M25.512] Sapphire Hollis MD, [facility] CPT-4: 43242 07/24/2017 ([id number]) 63870 EST. 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] [facility] CPT-4: 95311 04/28/2017 ([id number]) Miscellaneous no charge Diagnosis: Impacted cerumen, bilateral[ICD10: H61.23] Leora Hollis MD, [facility] CPT-4: 37091 03/17/2017 ([id number]) OFFICE VISIT, NEW - LEVEL 4 Diagnosis: Mixed hyperlipidemia[ICD10: E78.2] Diagnosis: Chronic pain syndrome[ICD10: G89.4] Diagnosis: Presbycusis, bilateral[ICD10: H91.13] Diagnosis: Impacted cerumen, bilateral[ICD10: H61.23] Diagnosis: Atherosclerotic heart disease of galena coronary artery without angina pectoris[ICD10: I25.10] Diagnosis: Personal history of other diseases of the circulatory system[ICD10: Z86.79] Leora Hollis MD, [facility] CPT-4: 92476 2017 Plan of Care Planned Activity Notes [...] [facility] (15 min) Moderate 01/07/2018 Patient Education: [...] Appointment: Elise Castillo WPtel: [phone] (15 min) Moderate 12/22/2017 Patient Education: Patient Medication Summary Completed 12/22/2017 Visit Plan: Neck and low back pain -will schedule MRI lumbar and cervical spine for further evaluation and proceed as indicated- patient verbalized understanding of plan. 12/15/2017 Appointment: Elise Castillo WPtel[facility] (15 min) Moderate 12/15/2017 Patient Education: Patient Medication Summary Completed 12/15/2017 Patient Education: Back Pain Completed 12/15/2017 Care Plan: MRI LUMBAR SPINE W/O DYE LOINC : 52374-9 Pending 12/15/2017 Care Plan: MRI NECK SPINE W/O DYE LOINC : 88913-4 Pending 12/15/2017 Appointment: Injection 12/04/2017 Patient Education: [...] surrogate. 11/27/2017 Appointment: Sapphire Oneil [facility] [phone] [facility] [facility] - Annual Wellness Visit 11/27/2017 [...] to sleep 11/17/2017 [facility] [phone] [facility] (15 min) Moderate 11/17/2017 Patient Education: [...] spray. 10/06/2017 Appointment: Leora Hollis WPtel: [phone] [facility] (15 min) Moderate 10/06/2017 Appointment: Sapphire Oneil WPtel: [phone] [facility] (15 min) Moderate 10/06/2017 Patient Education: [...] treatment plan. 07/24/2017 Appointment: Sapphire Oneil WPtel: [phone] [facility] (30 min) Complex 07/24/2017 Patient Education: [...] medications. 07/14/2017 App[facility]: [facility] [phone] [facility] [place] (15 min) Moderate 07/14/2017 Patient Education: Patient Medication Summary Completed 07/14/2017 App[facility]ment: [facility] [phone] [facility] [place] (15 min) Moderate 07/10/2017 Appointment: [...] night 06/09/2017 Appointment: [facility] [phone] [facility] [place] (30 min) Complex 06/09/2017 Patient [...] 15 04/28/2017 Appointment: [facility] [phone] [facility] [place] (30 min) Complex 04/28/2017 Patient Education: [...] wax removal 03/14/2017 Appointment: Leora Hollis WPtel: [address] [place], [place] [address] New Patient 03/14/2017 Patient Education: Patient Medication [...] in the nasal steroid allergy spray. . Increased left shoulder pain and weakness after fall - Discussed with Dr. Torres office - they are going to contact him tomorrow for a possible appointment - pt is to notify clinic with any change in the current treatment plan. . URI - Pt advised to [...] DOPA paperwork for health care surrogate. . COPD - chronic problem for this [...] lab. epworth sleepiness scale score of 15 REFER FOR PHYSICAL THERAPY AT [facility] -HE HAS A PT HE HAS SEEN THERE BEFORE KEEP APPT WITH DR STEWARD . Cervical and lumbar stenosis -refer for PT to evaluate and treat -follow up with DR Steward as scheduled -refill hydrocodone for prn use only -discussed with patient that he is to use it for breakthrough pain only -patient verbalized understanding of plan. MRI cervical and lumbar spine testosterone injection . Neck and low back pain -will schedule MRI lumbar and cervical spine for further evaluation and proceed as indicated-patient verbalized understanding of plan.
--- OUTSIDE RECORDS SUMMARY | 2018-06-12 09:43 | XMS REPORT | CCD ---
Author Author Leroa Hollis Organization [facility] Address [address] [place] [address] Phone Care Team Providers Care Inductor Tester Name Role Phone PP Unavailable CCM Unavailable Summary Purpose Interface Exchange Insurance Providers Payer name Policy type / Coverage type Covered republican ID Effective Begin Date Effective End Date WPS Medicare Part B Medicare Part B [id number] 2017 Unknown [facility] Medicare Part B [id number] 2017 Unknown Family history Father Diagnosis Age At Onset Heart Attack Unknown Social History Social History Element Codes Description Effective Dates Marital status Unknown 03/14/2017 Number of children Unknown 2 03/14/[address]: 9853257 Former smoker Quit 11/03/00; smoke 1/2 pack/day x15 years 03/14/[address]: 413830387 Never drinks alcohol 03/14/2017 Allergies, Adverse Reactions, [...] Active 03/14/2017 Unknown 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 [...] H61.23 03/14/2017 Active 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 ICD-10: I25.10 03/14/2017 Active Chronic pain syndrome ICD-9: 338.4 ICD-10: G89.4 03/14/2017 Active Personal history of other diseases of the circulatory system ICD-9: V12.59 ICD-10: Z86.79 03/14/2017 Active Presbycusis, 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 03/14/2017 Active Medications Medication Codes Instructions Start Date Stop Date Status Fill Instructions meloxicam 15 mg tablet RxNorm: 177030 TAKE ONE TABLET BY MOUTH DAILY 02/13/2018 08/11/2018 Active testosterone cypionate 200 mg/mL intramuscular kit RxNorm: 086165 1/2 Milliliter(s ) IM [id number] 02/03/2018 08/01/2018 Active testosterone cypionate 200 mg/mL intramuscular oil RxNorm: 134946 Milliliter(s) IM 02/03/2018 02/03/2018 Inactive prednisone 20 mg tablet RxNorm: 295964 2 Tablet(s) PO QAM 01/0901/13/2018 Inactive cefdinir 300 mg capsule RxNorm: 239658 1 Capsule(s) PO BID 01/18/2018 Inactive prednisone 20 mg tablet RxNorm: 989540 2 Tablet(s) PO QAM 01/0901/08/2018 Inactive cefdinir 300 mg capsule RxNorm: 388314 1 Capsule(s) PO BID 01/08/2018 Inactive Zithromax Z-Timothy 250 mg tablet RxNorm: 112453 1 Tablet(s) PO UD 01/07/2018 No Stop Date Active Kenalog 40 mg/mL suspension for injection RxNorm: 3474680 Milliliter(s) Inj 01/07/2018 01/07/2018 Inactive ceftriaxone 500 mg solution for injection RxNorm: 3004926 Inj 01/07/2018 01/07/2018 Inactive testosterone cypionate 200 mg/mL intramuscular oil RxNorm: 287674 1/2 Milliliter(s ) IM 01/05/2018 01/05/2018 Inactive hydrocodone 5 mg-acetaminophen 325 mg tablet RxNorm: 914990 1-2 Tablet(s) PO Q6 PRN 12/22/2017 02/19/2018 Active zolpidem 5 mg tablet RxNorm: 921031 1 Tablet(s) PO 30 min before QHS 12/15/2017 02/12/2018 Inactive testosterone cypionate 200 mg/mL intramuscular oil RxNorm: 876574 Milliliter(s) IM 12/15/2017 12/15/2017 Inactive testosterone cypionate 200 mg/mL intramuscular oil RxNorm: 430535 1/2 Milliliter(s ) IM 12/04/2017 12/04/2017 Inactive testosterone cypionate 200 mg/mL intramuscular oil RxNorm: 526711 1/2 Milliliter(s ) IM 11/17/2017 11/17/2017 Inactive potassium chloride ER 10 mEq capsule,extended release RxNorm: 857936 TAKE ONE CAPSULE BY MOUTH DAILY 11/11/20172018 Active testosterone cypionate 200 mg/mL intramuscular oil RxNorm: 979682 Milliliter(s) IM 10/22/2017 10/22/2017 Inactive zolpidem 5 mg tablet RxNorm: 190520 1 Tablet(s) PO 30 min before QHS 10/15/2017 10/14/2017 Inactive zolpidem 5 mg tablet RxNorm: 274038 1 Tablet(s) PO 30 min before QHS 10/15/2017 12/13/2017 Inactive Zithromax Z-Timothy 250 mg tablet RxNorm: 652611 1 Tablet(s) PO UD 10/07/2017 11/16/2017 Inactive testosterone cypionate 200 mg/mL intramuscular oil RxNorm: 092594 Milliliter(s) IM 10/06/2017 10/06/2017 Inactive Kenalog 40 mg/mL suspension for injection RxNorm: 5463241 Milliliter(s) Inj 10/06/2017 10/06/2017 Inactive Zithromax Z-Timothy 250 mg tablet RxNorm: 597016 1 Tablet(s) PO UD 10/06/2017 10/06/2017 Inactive testosterone cypionate 200 mg/mL intramuscular oil RxNorm: 048169 Milliliter(s) IM 09/23/2017 09/23/2017 Inactive testosterone cypionate 200 mg/mL intramuscular kit RxNorm: 807239 1/2 Milliliter(s ) IM [id number] 08/28/2017 02/02/2018 Inactive meloxicam 15 mg tablet RxNorm: 053181 TAKE ONE TABLET BY MOUTH DAILY 08/28/2017 02/12/2018 Inactive testosterone cypionate 200 mg/mL intramuscular oil RxNorm: 868482 Milliliter(s) IM 08/28/2017 08/28/2017 Inactive testosterone cypionate 200 mg/mL intramuscular oil RxNorm: 360733 1/2 Milliliter(s ) IM 08/12/2017 08/12/2017 Inactive meloxicam 15 mg tablet RxNorm: 531512 1 Tablet(s) PO daily 08/201708/27/2017 Inactive atorvastatin 40 mg tablet RxNorm: 094402 TAKE ONE TABLET BY MOUTH DAILY 07/30/2017 02/24/2018 Active furosemide 40 mg tablet RxNorm: 715419 TAKE ONE TABLET BY MOUTH DAILY 07/30/2017 02/24/2018 Active testosterone cypionate 200 mg/mL intramuscular oil RxNorm: 573227 1/2 Milliliter(s ) IM 07/28/2017 07/28/2017 Inactive testosterone cypionate 200 mg/mL intramuscular oil RxNorm: 547852 1/2 Milliliter(s ) IM 07/14/2017 07/14/2017 Inactive testosterone cypionate 200 mg/mL intramuscular oil RxNorm: 234025 1/2 Milliliter(s ) IM 06/26/2017 06/26/2017 Inactive hydrocodone 5 mg-acetaminophen 325 mg tablet RxNorm: 317340 1 Tablet(s) PO QHS and 1 tab PO daily PRN pain 06/09/2017 Inactive hydrocodone 5 mg-acetaminophen 325 mg tablet RxNorm: 287880 1 Tablet(s) PO daily 06/09/2017 06/18/2017 Inactive testosterone cypionate 200 mg/mL intramuscular oil RxNorm: 835520 1/2 Milliliter(s ) IM 06/09/2017 06/09/2017 Inactive testosterone cypionate 200 mg/mL intramuscular oil RxNorm: 544692 Milliliter(s) IM 05/27/2017 05/27/2017 Inactive testosterone cypionate 200 mg/mL intramuscular oil RxNorm: 748996 Milliliter(s) IM 05/13/2017 05/13/2017 Inactive potassium chloride ER 10 mEq capsule,extended release RxNorm: 907979 1 Capsule(s) PO daily 05/07/2017 11/02/2017 Inactive Vitamin D2 50,000 unit capsule RxNorm: 377543 1 Capsule(s) PO QW 05/06/2017 05/05/2017 Inactive take with OTC vitamin d 2,000 units QD testosterone cypionate 200 mg/mL intramuscular kit RxNorm: 082960 1/2 kit IM 2 x month 05/06/2017 08/27/2017 Inactive Vitamin D2 50,000 unit capsule RxNorm: 950836 1 Capsule(s) PO QW 05/06/2017 08/03/2017 Inactive take with OTC vitamin d 2,000 units QD testosterone cypionate 200 mg/mL intramuscular oil RxNorm: 303954 1/2 Milliliter(s ) IM 04/29/2017 04/29/2017 Inactive fluorouracil 5 % topical cream RxNorm: 128365 1 Application TOP BID 04/28/2017 05/07/2017 Inactive testosterone cypionate 200 mg/mL intramuscular kit RxNorm: 751537 1/2 IM 2 x month 04/28/2017 05/05/2017 Inactive Pamelor 10 mg capsule RxNorm: 743993 1 Capsule(s) PO daily No Start Date Active gabapentin 300 mg capsule RxNorm: 594760 6 Capsule(s) PO daily No Start Date Active cyclobenzaprine 5 mg tablet RxNorm: 169130 1 Tablet(s) PO as needed No Start Date Active diclofenac 1 % topical gel RxNorm: 429863 1 Gram(s) TOP as needed No Start Date Active clopidogrel 75 mg tablet RxNorm: 669681 1 Tablet(s) PO daily No Start Date Active meloxicam 15 mg tablet RxNorm: 020314 1 Tablet(s) PO daily No Start Date 07/30/2017 Inactive potassium chloride ER 10 mEq tablet,extended release RxNorm: 243188 1 Tablet(s) PO daily No Start Date 05/06/2017 Inactive hydrocodone 5 mg-acetaminophen 325 mg tablet RxNorm: 665339 1 Tablet(s) PO daily No Start Date 06/08/2017 Inactive furosemide 40 mg tablet RxNorm: 294312 1 Tablet(s) PO daily No Start Date 07/29/2017 Inactive atorvastatin 40 mg tablet RxNorm: 088063 1 Tablet(s) PO QHS No Start Date 07/29/2017 Inactive Medication Administered Medication Codes Instructions Start Date Status testosterone cypionate 200 mg/mL intramuscular oil RxNorm: 702323 Milliliter 02/03/2018 No longer Active Kenalog 40 mg/mL suspension for injection RxNorm: 2172197 Milliliter 01/07/2018 No longer Active ceftriaxone 500 mg solution for injection RxNorm: 2837393 01/07/2018 No longer Active testosterone cypionate 200 mg/mL intramuscular oil RxNorm: 871114 1/2Milliliter 01/05/2018 No longer Active testosterone cypionate 200 mg/mL intramuscular oil RxNorm: 786102 Milliliter 12/15/2017 No longer Active testosterone cypionate 200 mg/mL intramuscular oil RxNorm: 120139 /2Milliliter 12/04/2017 No longer Active testosterone cypionate 200 mg/mL intramuscular oil RxNorm: 593085 /2Milliliter 11/17/2017 No longer Active testosterone cypionate 200 mg/mL intramuscular oil RxNorm: 323679 Milliliter 10/22/2017 No longer Active testosterone cypionate 200 mg/mL intramuscular oil RxNorm: 979143 Milliliter 10/06/2017 No longer Active Kenalog 40 mg/mL suspension for injection RxNorm: 4859011 Milliliter 10/06/2017 No longer Active testosterone cypionate 200 mg/mL intramuscular oil RxNorm: 105195 Milliliter 09/23/2017 No longer Active testosterone cypionate 200 mg/mL intramuscular oil RxNorm: 760504 Milliliter 08/28/2017 No longer Active testosterone cypionate 200 mg/mL intramuscular oil RxNorm: 257898 /2Milliliter 08/12/2017 No longer Active testosterone cypionate 200 mg/mL intramuscular oil RxNorm: 780233 /2Milliliter 07/28/2017 No longer Active testosterone cypionate 200 mg/mL intramuscular oil RxNorm: 763884 /2Milliliter 07/14/2017 No longer Active testosterone cypionate 200 mg/mL intramuscular oil RxNorm: 064394 /2Milliliter 06/26/2017 No longer Active testosterone cypionate 200 mg/mL intramuscular oil RxNorm: 941640 /2Milliliter 06/09/2017 No longer Active testosterone cypionate 200 mg/mL intramuscular oil RxNorm: 108147 Milliliter 05/27/2017 No longer Active testosterone cypionate 200 mg/mL intramuscular oil RxNorm: 518342 Milliliter 05/13/2017 No longer Active testosterone cypionate 200 mg/mL intramuscular oil RxNorm: 449836 /2Milliliter 04/29/2017 No longer Active Immunizations Vaccine [...] ICD-9: 380.4 03/17/2017 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 TNP:Improper Specimen 01/07/2018 C A/B FLU [id number] Influenza Intrp B AG: PRID:PT:NOSE:NOM:IF TNP:Improper Specimen 01/07/2018 Hepatic Chv384 ALBUMIN 3.7 g/dL 08/06/2017 Hepatic Shd602 TPRO 5.9 g/dL 08/06/2017 Hepatic Wcs136 GLOB 2.2 g/dL 08/06/2017 Hepatic Mkf783 A/G Ratio 1.7 Ratio 08/06/2017 Hepatic Ors200 ALK PHOS 46 U/L 08/06/2017 Hepatic Uxx769 ALT(SGPT) 9 U/L 08/06/2017 Hepatic Ywc767 AST(SGOT) 13 U/L 08/06/2017 Hepatic Egn003 BILI T 0.6 mg/dL 08/06/2017 Hepatic Eiy210 BILI D 0.2 mg/dL 08/06/2017 Hepatic Mrq615 BILI I 0.4 mg/dL 08/06/2017 Testosterone Dke166 Testo 474.5 ng/dL 08/06/2017 Cbc With Differential [...] 28.5 pg 08/06/2017 Cbc With Differential Ord2 Bacon% 11.2 % 08/06/2017 Cbc With Differential Ord2 [...] 1.33 K/ul 08/06/2017 Cbc With Differential Ord2 Bacon ABS# 0.6 K/ul 08/06/2017 Cbc With Differential Ord2 Eos ABS# 0.3 K/ul 08/06/2017 Cbc With Differential Ord2 Baso ABS# 0.1 K/ul 08/06/2017 Comp Metabolic Gyy837 NA 140 mEq/L 06/02/2017 Comp Metabolic Aia805 K 3.8 mEq/L 06/02/2017 Comp Metabolic Dfz090 CL 102 mEq/L 06/02/2017 Comp Metabolic Ysh450 CO2 30.0 mEq/L 06/02/2017 Comp Metabolic Olb386 ANION GAP 12 06/02/2017 Comp Metabolic Cbz059 GLUCOSE 100 mg/dL 06/02/2017 Comp Metabolic Kft887 Creat 1.1 mg/dL 06/02/2017 Comp Metabolic Sew917 eGFR 69 ml/min/1.73m2 06/02/2017 Comp Metabolic Qcd160 BUN 15 mg/dL 06/02/2017 Comp Metabolic Kki217 B/C Ratio 13.4 Ratio 06/02/2017 Comp Metabolic Shf161 CALCIUM 8.6 mg/dL 06/02/2017 Comp Metabolic Lgp222 ALK PHOS 63 U/L 06/02/2017 Comp Metabolic Ucn944 AST(SGOT) 17 U/L 06/02/2017 Comp Metabolic Cfd311 ALT(SGPT) 12 U/L 06/02/2017 Comp Metabolic Lsr390 BILI T 0.5 mg/dL 06/02/2017 Comp Metabolic Dvv472 ALBUMIN 3.9 g/dL 06/02/2017 Comp Metabolic Ely420 TPRO 6.1 g/dL 06/02/2017 Comp Metabolic Nrm610 GLOB 2.2 g/dL 06/02/2017 Comp Metabolic Rnb441 A/G Ratio 1.8 Ratio 06/02/2017 Comp Metabolic Ehy310 Osmo 280 mOsmo 06/02/2017 Vitamin D 25 Oh Kgr2105 VITAMIN D, 25 HYDROXY 40.03 ng/mL Cbc [...] 93.0 fl 06/02/2017 Cbc With Differential Ord2 [place]% 10.5 % 06/02/2017 Cbc With Differential Ord2 [...] 1.52 K/ul 06/02/2017 Cbc With Differential Ord2 Bacon ABS# 0.6 K/ul 06/02/2017 Cbc With Differential Ord2 Eos ABS# 0.2 K/ul 06/02/2017 Cbc With Differential Ord2 Baso ABS# 0.1 K/ul 06/02/2017 Testosterone Tkj647 Testo 198.4 ng/dL 04/29/2017 Vitamin D 25 Oh Aot2273 VITAMIN D, 25 HYDROXY 29.25 ng/mL Lipid [...] benign 04/28/2017 None Full Exam - General 1995 Ears/Nose/Throat oral cavity/pharynx/larynx Overall: no masses 04/28/2017 [...] Procedure Codes Date THER/PROPH/DIAG INJ SC/IM CPT-4: 67879 02/03/2018 THER/PROPH/DIAG INJ SC/IM CPT-4: 51383 01/07/2018 TRIAMCINOLONE ACET INJ NOS CPT-4: J3301 01/07/2018 ROCEPHIN, PER 250 MG CPT-4: J0696 01/07/2018 THER/PROPH/DIAG INJ SC/IM CPT-4: 67884 01/05/2018 THER/PROPH/DIAG INJ SC/IM CPT-4: 42250 12/15/2017 THER/PROPH/DIAG INJ SC/IM CPT-4: 96278 12/04/2017 PPPS, SUBSEQ VISIT CPT -4: G0439 11/27/2017 ADMIN INFLUENZA VIRUS VAC CPT-4: G0008 11/17/2017 FLU VAC NO PRSV 4 FATOU 3 YRS+ CPT-4: 47202 11/17/2017 THER/PROPH/DIAG INJ SC/IM CPT-4: 66484 11/17/2017 THER/PROPH/DIAG INJ SC/IM CPT-4: 80350 10/22/2017 THER/PROPH/DIAG INJ SC/IM CPT-4: 42013 10/06/2017 TRIAMCINOLONE ACET INJ NOS CPT-4: J3301 10/06/2017 THER/PROPH/DIAG INJ SC/IM CPT-4: 28459 09/23/2017 THER/PROPH/DIAG INJ SC/IM CPT-4: 34700 08/28/2017 THER/PROPH/DIAG INJ SC/IM CPT-4: 70844 08/12/2017 THER/PROPH/DIAG INJ SC/IM CPT-4: 43753 07/28/2017 THER/PROPH/DIAG INJ SC/IM CPT-4: 15856 07/14/2017 THER/PROPH/DIAG INJ SC/IM CPT-4: 20897 06/26/2017 THER/PROPH/DIAG INJ SC/IM CPT-4: 70842 06/09/2017 THER/PROPH/DIAG INJ SC/IM CPT-4: 98205 05/27/2017 THER/PROPH/DIAG INJ SC/IM CPT-4: 25609 05/13/2017 THER/PROPH/DIAG INJ SC/IM CPT-4: 27669 04/29/2017 Vital Signs Date Vital 01/07/2018 Blood Pressure 1: 126/66 Code : 8480-6 BMI: 30.1 Code : 67892-3 Heart Rate 1 : 75 bpm Height: 5'10" SpO2: 97% Temperature: 36.5 (C) / 97.7 (F) Weight: 210 lbs 12/22/2017 Blood Pressure 1: 124/70 Code : 8480-6 BMI: 29.7 Code : 22555-5 Heart Rate 1 : 84 bpm Height: 5'10" SpO2: 94% Weight: 207 lbs 12/15/2017 Blood Pressure 1: 122/82 Code : 8480-6 BMI: 30.0 Code : 91520-8 Heart Rate 1 : 82 bpm Height: 5'10" SpO2: 93% Weight: 209 lbs 11/27/2017 Blood Pressure 1: 132/68 Code : 8480-6 BMI: 29.3 Code : 68369-7 Heart Rate 1 : 71 bpm Height: 5'10" SpO2: 97% Waist Measure (cm): 97 cm Weight: 204 lbs 11/17/2017 Blood Pressure 1: 130/80 Code : 8480-6 BMI: 29.3 Code : 38155-2 Heart Rate 1 : 73 bpm Height: 5'10" SpO2: 99% Weight: 204 lbs 10/06/2017 Blood Pressure 1: 124/60 Code : 8480-6 BMI: 28.8 Code : 28022-8 Heart Rate 1 : 70 bpm Height: 5'10" SpO2: 98% Weight: 201 lbs 07/24/2017 Blood Pressure 1: 118/70 Code : 8480-6 BMI: 29.3 Code : 55695-4 Heart Rate 1 : 82 bpm Height: 5'10" SpO2: 96% Weight: 204 lbs 07/14/2017 Blood Pressure 1: 118/72 Code : 8480-6 BMI: 29.1 Code : 76198-4 Heart Rate 1 : 83 bpm Height: 5'10" SpO2: 98% Weight: 203 lbs 06/09/2017 Blood Pressure 1: 120/74 Code : 8480-6 BMI: 29.3 Code : 57722-7 Heart Rate 1 : 91 bpm Height: 5'10" SpO2: 99% Weight: 204 lbs 04/28/2017 Blood Pressure 1: 118/68 Code : 8480-6 BMI: 28.8 Code : 99366-2 Heart Rate 1 : 74 bpm Height: 5'10" SpO2: 96% Weight: 201 lbs 03/14/2017 Blood Pressure 1: 114/74 Code : 8480-6 BMI: 28.6 Code : 18946-5 Heart Rate 1 : 77 bpm Height: [...] data Encounters Encounter Performer Location Codes Date 72358 EST. PATIENT, LEVEL III Diagnosis: Other malaise[ICD10: R53.81] Diagnosis: Acute laryngopharyngitis[ICD10: J06.0] Diagnosis: Other allergic rhinitis[ICD10: J30.89] [facility] CPT-4: 93459 01/07/2018 ([id number]) 19503 EST. PATIENT, LEVEL III Diagnosis: Spinal stenosis, lumbosacral region[ICD10: M48.07] Diagnosis: Spinal stenosis, cervical region[ICD10: M48.02] [facility] MD, [facility] CPT-4: 68345 12/22/2017 ([id number]) 36381 EST. 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 PATIENT, LEVEL III Diagnosis: Mixed hyperlipidemia[ICD10: E78.2] Diagnosis: Other insomnia[ICD10: G47.09] [facility], [facility] CPT- 4: 46971 11/17/2017 09051 EST. PATIENT, LEVEL III Diagnosis: Acute laryngopharyngitis[ICD10: J06.0] Diagnosis: Other allergic rhinitis[ICD10: J30.89] [facility] MD, [facility] CPT-4: 55843 10/06/2017 30276 EST. PATIENT, LEVEL III Diagnosis: Pain in left shoulder[ICD10: M25.512] [facility] MD, [facility] CPT-4: 57124 07/24/2017 ([id number]) 14372 EST. 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] [facility] MD, [facility] CPT-4: 93564 04/28/2017 ([id number]) Miscellaneous no charge Diagnosis: Impacted cerumen, bilateral[ICD10: H61.23] [facility] CPT-4: 18155 03/17/2017 ([id number]) OFFICE VISIT, NEW - LEVEL 4 Diagnosis: Mixed hyperlipidemia[ICD10: E78.2] Diagnosis: Chronic pain syndrome[ICD10: G89.4] Diagnosis: Presbycusis, bilateral[ICD10: H91.13] Diagnosis: Impacted cerumen, bilateral[ICD10: H61.23] Diagnosis: Atherosclerotic heart disease of [place] coronary artery without angina pectoris[ICD10: I25.10] Diagnosis: Personal history of other diseases of the circulatory system[ICD10: Z86.79] [facility] MD, [facility] CPT-4: 02048 2017 Plan of Care Planned Activity Notes [...] allergy spray. 01/07/2018 Appointment: Sapphire Oneil WPtel: [address] [place], [place] [phone] (15 min) Moderate 01/07/2018 Patient Education: Patient [...] plan. 12/22/2017 Appointment: Elise Castillo WPtel: [phone] (15 min) Moderate 12/22/2017 Patient Education: Patient Medication Summary Completed 12/22/2017 Visit Plan: Neck and low back pain -will schedule MRI lumbar and cervical spine for further evaluation and proceed as indicated- patient verbalized understanding of plan. 12/15/2017 Appointment: Elise Castillo WPtel: [address] [place], [place] [phone] (15 min) Moderate 12/15/2017 Patient Education: Patient Medication Summary Completed 12/15/2017 Patient Education: Back Pain Completed 12/15/2017 Care Plan: MRI LUMBAR SPINE W/O DYE LOINC : 06868-6 Pending 12/15/2017 Care Plan: MRI NECK SPINE W/O DYE LOINC : 11919-8 Pending 12/15/2017 Appointment: Injection 12/04/2017 Patient Education: [...] care surrogate. 11/27/2017 Appointment: Sapphire Oneil WPtel: [phone] [facility] [facility] - Annual Wellness Visit 11/27/2017 [...] sleep 11/17/2017 [facility] [phone] (15 min) Moderate 11/17/2017 Patient Education: Patient [...] spray. 10/06/2017 Appointment: Leora Hollis WPtel: [phone] [facility] (15 min) Moderate 10/06/2017 Appointment: Sapphire Oneil WPtel: [phone] [facility] (15 min) Moderate 10/06/2017 Patient Education: [...] plan. 07/24/2017 [phone] (30 min) Complex 07/24/2017 Patient Education: [...] medications. 07/14/2017 [facility] [phone] [facility] (15 min) Moderate 07/14/2017 Patient Education: Patient Medication Summary Completed 07/14/2017 [facility] [phone] [facility] (15 min) Moderate 07/10/2017 Appointment: Injection 06/26/2017 [...] night 06/09/2017 App[facility]ment[facility] [phone] [facility] [place] (30 min) Complex 06/09/2017 Patient Education: [...] 15 04/28/2017 App[facility] [phone] [facility] [place] (30 min) Complex 04/28/2017 Patient Education: [...] wax removal 03/14/2017 Appointment: Leora Hollis WPtel: [address] [place], [place] [phone] New Patient 03/14/2017 Patient Education: Patient Medication Summary Completed 03/14/2017 Instructions Comment . Hypogonadism - testosterone shot to be [...] change in the current treatment plan. . Medicare Exam - today we [...] as indicated-patient verbalized understanding of plan. . URI - [...] only -patient verbalized understanding of plan. . Hyperlipidemia - pt has been [...] in the nasal steroid allergy spray. . COPD - chronic problem for this [...]
--- OUTSIDE RECORDS SUMMARY | 2018-06-12 09:45 | XMS REPORT | CCD ---
Author Author [facility] Organization [facility] Address [address] [place] [address] Phone Care Team Providers Care Remnant Sorter Name Role Phone PP Unavailable CCM Unavailable Summary Purpose Interface Exchange Insurance Providers Payer name Policy type / Coverage type Covered green party ID Effective Begin Date Effective End Date WPS Medicare Part B Medicare Part B [id number] 2017 Unknown [facility] Medicare Part B [id number] 2017 Unknown Family history Father Diagnosis Age At Onset Heart Attack Unknown Social History Social History Element Codes Description Effective Dates Marital status Unknown 03/14/2017 Number of children Unknown 2 03/14/[address]: 7106915 Former smoker Quit 11/03/00; smoke 1/2 pack/day x15 years 03/14/[address]: 650024545 Never drinks alcohol 03/14/2017 Allergies, Adverse Reactions, [...] Active 03/14/2017 Unknown 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 [...] H61.23 03/14/2017 Active 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 ICD-10: I25.10 03/14/2017 Active Chronic pain syndrome ICD-9: 338.4 ICD-10: G89.4 03/14/2017 Active Personal history of other diseases of the circulatory system ICD-9: V12.59 ICD-10: Z86.79 03/14/2017 Active Presbycusis, 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 03/14/2017 Active Medications Medication Codes Instructions Start Date Stop Date Status Fill Instructions testosterone cypionate 200 mg/mL intramuscular oil RxNorm: 371780 Milliliter(s) IM 02/03/2018 02/03/2018 Inactive prednisone 20 mg tablet RxNorm: 566334 2 Tablet(s) PO QAM 01/0901/13/2018 Inactive cefdinir 300 mg capsule RxNorm: 757381 1 Capsule(s) PO BID 01/18/2018 Inactive prednisone 20 mg tablet RxNorm: 042073 2 Tablet(s) PO QAM 01/0901/08/2018 Inactive cefdinir 300 mg capsule RxNorm: 525780 1 Capsule(s) PO BID 01/08/2018 Inactive Zithromax Z-Timothy 250 mg tablet RxNorm: 742786 1 Tablet(s) PO UD 01/07/2018 No Stop Date Active Kenalog 40 mg/mL suspension for injection RxNorm: 5040298 Milliliter(s) Inj 01/07/2018 01/07/2018 Inactive ceftriaxone 500 mg solution for injection RxNorm: 2793872 Inj 01/07/2018 01/07/2018 Inactive testosterone cypionate 200 mg/mL intramuscular oil RxNorm: 311034 1/2 Milliliter(s ) IM 01/05/2018 01/05/2018 Inactive hydrocodone 5 mg-acetaminophen 325 mg tablet RxNorm: 470304 1-2 Tablet(s) PO Q6 PRN 12/22/2017 02/19/2018 Active zolpidem 5 mg tablet RxNorm: 883864 1 Tablet(s) PO 30 min before QHS 12/15/2017 02/12/2018 Active testosterone cypionate 200 mg/mL intramuscular oil RxNorm: 025606 Milliliter(s) IM 12/15/2017 12/15/2017 Inactive testosterone cypionate 200 mg/mL intramuscular oil RxNorm: 173549 1/2 Milliliter(s ) IM 12/04/2017 12/04/2017 Inactive testosterone cypionate 200 mg/mL intramuscular oil RxNorm: 462660 1/2 Milliliter(s ) IM 11/17/2017 11/17/2017 Inactive potassium chloride ER 10 mEq capsule,extended release RxNorm: 126150 TAKE ONE CAPSULE BY MOUTH DAILY 11/11/20172018 Active testosterone cypionate 200 mg/mL intramuscular oil RxNorm: 543028 Milliliter(s) IM 10/22/2017 10/22/2017 Inactive zolpidem 5 mg tablet RxNorm: 154955 1 Tablet(s) PO 30 min before QHS 10/15/2017 10/14/2017 Inactive zolpidem 5 mg tablet RxNorm: 229493 1 Tablet(s) PO 30 min before QHS 10/15/2017 12/13/2017 Inactive Zithromax Z-Timothy 250 mg tablet RxNorm: 920291 1 Tablet(s) PO UD 10/07/2017 11/16/2017 Inactive testosterone cypionate 200 mg/mL intramuscular oil RxNorm: 687011 Milliliter(s) IM 10/06/2017 10/06/2017 Inactive Kenalog 40 mg/mL suspension for injection RxNorm: 6428004 Milliliter(s) Inj 10/06/2017 10/06/2017 Inactive Zithromax Z-Timothy 250 mg tablet RxNorm: 233776 1 Tablet(s) PO UD 10/06/2017 10/06/2017 Inactive testosterone cypionate 200 mg/mL intramuscular oil RxNorm: 817175 Milliliter(s) IM 09/23/2017 09/23/2017 Inactive testosterone cypionate 200 mg/mL intramuscular kit RxNorm: 611101 1/2 Milliliter(s ) IM [id number] 08/28/2017 02/23/2018 Active meloxicam 15 mg tablet RxNorm: 595869 TAKE ONE TABLET BY MOUTH DAILY 08/28/2017 05/24/2018 Active testosterone cypionate 200 mg/mL intramuscular oil RxNorm: 759703 Milliliter(s) IM 08/28/2017 08/28/2017 Inactive testosterone cypionate 200 mg/mL intramuscular oil RxNorm: 134250 1/2 Milliliter(s ) IM 08/12/2017 08/12/2017 Inactive meloxicam 15 mg tablet RxNorm: 415887 1 Tablet(s) PO daily 08/201708/27/2017 Inactive atorvastatin 40 mg tablet RxNorm: 855121 TAKE ONE TABLET BY MOUTH DAILY 07/30/2017 02/24/2018 Active furosemide 40 mg tablet RxNorm: 516189 TAKE ONE TABLET BY MOUTH DAILY 07/30/2017 02/24/2018 Active testosterone cypionate 200 mg/mL intramuscular oil RxNorm: 315839 1/2 Milliliter(s ) IM 07/28/2017 07/28/2017 Inactive testosterone cypionate 200 mg/mL intramuscular oil RxNorm: 161372 1/2 Milliliter(s ) IM 07/14/2017 07/14/2017 Inactive testosterone cypionate 200 mg/mL intramuscular oil RxNorm: 931557 1/2 Milliliter(s ) IM 06/26/2017 06/26/2017 Inactive hydrocodone 5 mg-acetaminophen 325 mg tablet RxNorm: 603033 1 Tablet(s) PO QHS and 1 tab PO daily PRN pain 06/09/2017 Inactive hydrocodone 5 mg-acetaminophen 325 mg tablet RxNorm: 693066 1 Tablet(s) PO daily 06/09/2017 06/18/2017 Inactive testosterone cypionate 200 mg/mL intramuscular oil RxNorm: 236374 1/2 Milliliter(s ) IM 06/09/2017 06/09/2017 Inactive testosterone cypionate 200 mg/mL intramuscular oil RxNorm: 723794 Milliliter(s) IM 05/27/2017 05/27/2017 Inactive testosterone cypionate 200 mg/mL intramuscular oil RxNorm: 056907 Milliliter(s) IM 05/13/2017 05/13/2017 Inactive potassium chloride ER 10 mEq capsule,extended release RxNorm: 962314 1 Capsule(s) PO daily 05/07/2017 11/02/2017 Inactive Vitamin D2 50,000 unit capsule RxNorm: 383987 1 Capsule(s) PO QW 05/06/2017 05/05/2017 Inactive take with OTC vitamin d 2,000 units QD testosterone cypionate 200 mg/mL intramuscular kit RxNorm: 282070 1/2 kit IM 2 x month 05/06/2017 08/27/2017 Inactive Vitamin D2 50,000 unit capsule RxNorm: 724381 1 Capsule(s) PO QW 05/06/2017 08/03/2017 Inactive take with OTC vitamin d 2,000 units QD testosterone cypionate 200 mg/mL intramuscular oil RxNorm: 348542 1/2 Milliliter(s ) IM 04/29/2017 04/29/2017 Inactive fluorouracil 5 % topical cream RxNorm: 506864 1 Application TOP BID 04/28/2017 05/07/2017 Inactive testosterone cypionate 200 mg/mL intramuscular kit RxNorm: 385655 1/2 IM 2 x month 04/28/2017 05/05/2017 Inactive Pamelor 10 mg capsule RxNorm: 990617 1 Capsule(s) PO daily No Start Date Active gabapentin 300 mg capsule RxNorm: 725036 6 Capsule(s) PO daily No Start Date Active cyclobenzaprine 5 mg tablet RxNorm: 108616 1 Tablet(s) PO as needed No Start Date Active diclofenac 1 % topical gel RxNorm: 454549 1 Gram(s) TOP as needed No Start Date Active clopidogrel 75 mg tablet RxNorm: 069329 1 Tablet(s) PO daily No Start Date Active meloxicam 15 mg tablet RxNorm: 898675 1 Tablet(s) PO daily No Start Date 07/30/2017 Inactive potassium chloride ER 10 mEq tablet,extended release RxNorm: 599604 1 Tablet(s) PO daily No Start Date 05/06/2017 Inactive hydrocodone 5 mg-acetaminophen 325 mg tablet RxNorm: 653200 1 Tablet(s) PO daily No Start Date 06/08/2017 Inactive furosemide 40 mg tablet RxNorm: 932038 1 Tablet(s) PO daily No Start Date 07/29/2017 Inactive atorvastatin 40 mg tablet RxNorm: 149511 1 Tablet(s) PO QHS No Start Date 07/29/2017 Inactive Medication Administered Medication Codes Instructions Start Date Status testosterone cypionate 200 mg/mL intramuscular oil RxNorm: 287081 Milliliter 02/03/2018 Active Kenalog 40 mg/mL suspension for injection RxNorm: 9790162 Milliliter 01/07/2018 No longer Active ceftriaxone 500 mg solution for injection RxNorm: 9271614 01/07/2018 No longer Active testosterone cypionate 200 mg/mL intramuscular oil RxNorm: 740747 /2Milliliter 01/05/2018 No longer Active testosterone cypionate 200 mg/mL intramuscular oil RxNorm: 390898 Milliliter 12/15/2017 No longer Active testosterone cypionate 200 mg/mL intramuscular oil RxNorm: 109102 /2Milliliter 12/04/2017 No longer Active testosterone cypionate 200 mg/mL intramuscular oil RxNorm: 397735 /2Milliliter 11/17/2017 No longer Active testosterone cypionate 200 mg/mL intramuscular oil RxNorm: 273443 Milliliter 10/22/2017 No longer Active Kenalog 40 mg/mL suspension for injection RxNorm: 6798369 Milliliter 10/06/2017 No longer Active testosterone cypionate 200 mg/mL intramuscular oil RxNorm: 187348 Milliliter 10/06/2017 No longer Active testosterone cypionate 200 mg/mL intramuscular oil RxNorm: 829798 Milliliter 09/23/2017 No longer Active testosterone cypionate 200 mg/mL intramuscular oil RxNorm: 739571 Milliliter 08/28/2017 No longer Active testosterone cypionate 200 mg/mL intramuscular oil RxNorm: 836511 illiliter 08/12/2017 No longer Active testosterone cypionate 200 mg/mL intramuscular oil RxNorm: 671697 /2Milliliter 07/28/2017 No longer Active testosterone cypionate 200 mg/mL intramuscular oil RxNorm: 744989 2Milliliter 07/14/2017 No longer Active testosterone cypionate 200 mg/mL intramuscular oil RxNorm: 889526 /2Milliliter 06/26/2017 No longer Active testosterone cypionate 200 mg/mL intramuscular oil RxNorm: 922712 /2Milliliter 06/09/2017 No longer Active testosterone cypionate 200 mg/mL intramuscular oil RxNorm: 901313 Milliliter 05/27/2017 No longer Active testosterone cypionate 200 mg/mL intramuscular oil RxNorm: 212923 Milliliter 05/13/2017 No longer Active testosterone cypionate 200 mg/mL intramuscular oil RxNorm: 394144 /2Milliliter 04/29/2017 No longer Active Immunizations Vaccine [...] ICD-9: 380.4 03/17/2017 Atherosclerotic heart disease of saxman coronary artery without angina pectoris ICD-10: I25.10 [...] Item Item Code Result Date Influenza A+B Bjc280 Influ A+B Negative 01/08/2018 C A/B FLU 9691159 Influenza A Scr TNP:Improper Specimen 01/07 C A/B FLU [id number] Influenza B Scr TNP:Improper Specimen 01/07 C A/B FLU [id number] Influenza Intrp B AG: PRID:PT:NOSE:NOM:IF TNP:Improper Specimen 01/07/2018 C A/B FLU [id number] IC OK? TNP:Improper Specimen 01/07/2018 Hepatic Ynr608 ALBUMIN 3.7 g/dL 08/06/2017 Hepatic Nun024 TPRO 5.9 g/dL 08/06/2017 Hepatic Juh864 GLOB 2.2 g/dL 08/06/2017 Hepatic Kac837 A/G Ratio 1.7 Ratio 08/06/2017 Hepatic Nlh518 ALK PHOS 46 U/L 08/06/2017 Hepatic Haj650 ALT(SGPT) 9 U/L 08/06/2017 Hepatic Eaa111 AST(SGOT) 13 U/L 08/06/2017 Hepatic Gic850 BILI T 0.6 mg/dL 08/06/2017 Hepatic Oqn514 BILI D 0.2 mg/dL 08/06/2017 Hepatic Enh286 BILI I 0.4 mg/dL 08/06/2017 Testosterone Djr816 Testo 474.5 ng/dL 08/06/2017 Cbc With Differential [...] 28.5 pg 08/06/2017 Cbc With Differential Ord2 [place]% 11.2 % 08/06/2017 Cbc With Differential Ord2 [...] 1.33 K/ul 08/06/2017 Cbc With Differential Ord2 [place] ABS# 0.6 K/ul 08/06/2017 Cbc With Differential Ord2 Eos ABS# 0.3 K/ul 08/06/2017 Cbc With Differential Ord2 Baso ABS# 0.1 K/ul 08/06/2017 Comp Metabolic Ent371 NA 140 mEq/L 06/02/2017 Comp Metabolic Lya380 K 3.8 mEq/L 06/02/2017 Comp Metabolic Xjw691 CL 102 mEq/L 06/02/2017 Comp Metabolic Qsb396 CO2 30.0 mEq/L 06/02/2017 Comp Metabolic Xqd798 ANION GAP 12 06/02/2017 Comp Metabolic Msj609 GLUCOSE 100 mg/dL 06/02/2017 Comp Metabolic Zkb415 Creat 1.1 mg/dL 06/02/2017 Comp Metabolic Tvt723 eGFR 69 ml/min/1.73m2 06/02/2017 Comp Metabolic Cem870 BUN 15 mg/dL 06/02/2017 Comp Metabolic Fvz986 B/C Ratio 13.4 Ratio 06/02/2017 Comp Metabolic Nas448 CALCIUM 8.6 mg/dL 06/02/2017 Comp Metabolic Wcr920 ALK PHOS 63 U/L 06/02/2017 Comp Metabolic Nrl461 AST(SGOT) 17 U/L 06/02/2017 Comp Metabolic Ord921 ALT(SGPT) 12 U/L 06/02/2017 Comp Metabolic Xoa720 BILI T 0.5 mg/dL 06/02/2017 Comp Metabolic Bjh406 ALBUMIN 3.9 g/dL 06/02/2017 Comp Metabolic Ksg902 TPRO 6.1 g/dL 06/02/2017 Comp Metabolic Ooj310 GLOB 2.2 g/dL 06/02/2017 Comp Metabolic Mbo120 A/G Ratio 1.8 Ratio 06/02/2017 Comp Metabolic Kqn272 Osmo 280 mOsmo 06/02/2017 Vitamin D 25 Oh Vky4042 VITAMIN D, 25 HYDROXY 40.03 ng/mL Cbc [...] 29.7 pg 06/02/2017 Cbc With Differential Ord2 [place]% 10.5 % 06/02/2017 Cbc With Differential Ord2 [...] 1.52 K/ul 06/02/2017 Cbc With Differential Ord2 [place] ABS# 0.6 K/ul 06/02/2017 Cbc With Differential Ord2 Eos ABS# 0.2 K/ul 06/02/2017 Cbc With Differential Ord2 Baso ABS# 0.1 K/ul 06/02/2017 Testosterone Baw532 Testo 198.4 ng/dL 04/29/2017 Vitamin D 25 Oh Zmr4295 VITAMIN D, 25 HYDROXY 29.25 ng/mL Lipid [...] Procedure Codes Date THER/PROPH/DIAG INJ SC/IM CPT-4: 40249 02/03/2018 THER/PROPH/DIAG INJ SC/IM CPT-4: 35805 01/07/2018 TRIAMCINOLONE ACET INJ NOS CPT-4: J3301 01/07/2018 ROCEPHIN, PER 250 MG CPT-4: J0696 01/07/2018 THER/PROPH/DIAG INJ SC/IM CPT-4: 62430 01/05/2018 THER/PROPH/DIAG INJ SC/IM CPT-4: 77908 12/15/2017 THER/PROPH/DIAG INJ SC/IM CPT-4: 12094 12/04/2017 PPPS, SUBSEQ VISIT CPT -4: G0439 11/27/2017 ADMIN INFLUENZA VIRUS VAC CPT-4: G0008 11/17/2017 FLU VAC NO PRSV 4 FATOU 3 YRS+ CPT-4: 62727 11/17/2017 THER/PROPH/DIAG INJ SC/IM CPT-4: 57111 11/17/2017 THER/PROPH/DIAG INJ SC/IM CPT-4: 35950 10/22/2017 THER/PROPH/DIAG INJ SC/IM CPT-4: 07763 10/06/2017 TRIAMCINOLONE ACET INJ NOS CPT-4: J3301 10/06/2017 THER/PROPH/DIAG INJ SC/IM CPT-4: 35092 09/23/2017 THER/PROPH/DIAG INJ SC/IM CPT-4: 21724 08/28/2017 THER/PROPH/DIAG INJ SC/IM CPT-4: 90135 08/12/2017 THER/PROPH/DIAG INJ SC/IM CPT-4: 90589 07/28/2017 THER/PROPH/DIAG INJ SC/IM CPT-4: 31250 07/14/2017 THER/PROPH/DIAG INJ SC/IM CPT-4: 70107 06/26/2017 THER/PROPH/DIAG INJ SC/IM CPT-4: 96434 06/09/2017 THER/PROPH/DIAG INJ SC/IM CPT-4: 09063 05/27/2017 THER/PROPH/DIAG INJ SC/IM CPT-4: 49139 05/13/2017 THER/PROPH/DIAG INJ SC/IM CPT-4: 65572 04/29/2017 Vital Signs Date Vital 01/07/2018 Blood Pressure 1: 126/66 Code : 8480-6 BMI: 30.1 Code : 68356-5 Heart Rate 1 : 75 bpm Height: 5'10" SpO2: 97% Temperature: 36.5 (C) / 97.7 (F) Weight: 210 lbs 12/22/2017 Blood Pressure 1: 124/70 Code : 8480-6 BMI: 29.7 Code : 00353-7 Heart Rate 1 : 84 bpm Height: 5'10" SpO2: 94% Weight: 207 lbs 12/15/2017 Blood Pressure 1: 122/82 Code : 8480-6 BMI: 30.0 Code : 54461-1 Heart Rate 1 : 82 bpm Height: 5'10" SpO2: 93% Weight: 209 lbs 11/27/2017 Blood Pressure 1: 132/68 Code : 8480-6 BMI: 29.3 Code : 74566-8 Heart Rate 1 : 71 bpm Height: 5'10" SpO2: 97% Waist Measure (cm): 97 cm Weight: 204 lbs 11/17/2017 Blood Pressure 1: 130/80 Code : 8480-6 BMI: 29.3 Code : 40856-9 Heart Rate 1 : 73 bpm Height: 5'10" SpO2: 99% Weight: 204 lbs 10/06/2017 Blood Pressure 1: 124/60 Code : 8480-6 BMI: 28.8 Code : 53395-0 Heart Rate 1 : 70 bpm Height: 5'10" SpO2: 98% Weight: 201 lbs 07/24/2017 Blood Pressure 1: 118/70 Code : 8480-6 BMI: 29.3 Code : 35396-5 Heart Rate 1 : 82 bpm Height: 5'10" SpO2: 96% Weight: 204 lbs 07/14/2017 Blood Pressure 1: 118/72 Code : 8480-6 BMI: 29.1 Code : 92221-8 Heart Rate 1 : 83 bpm Height: 5'10" SpO2: 98% Weight: 203 lbs 06/09/2017 Blood Pressure 1: 120/74 Code : 8480-6 BMI: 29.3 Code : 67038-4 Heart Rate 1 : 91 bpm Height: 5'10" SpO2: 99% Weight: 204 lbs 04/28/2017 Blood Pressure 1: 118/68 Code : 8480-6 BMI: 28.8 Code : 30283-2 Heart Rate 1 : 74 bpm Height: 5'10" SpO2: 96% Weight: 201 lbs 03/14/2017 Blood Pressure 1: 114/74 Code : 8480-6 BMI: 28.6 Code : 40514-2 Heart Rate 1 : 77 bpm Height: [...] rhinitis[ICD10: J30.89] [facility] CPT-4: 06709 01/07/2018 ([id number]) 84208 EST. PATIENT, LEVEL III Diagnosis: Spinal stenosis, lumbosacral region[ICD10: M48.07] Diagnosis: Spinal stenosis, cervical region[ICD10: M48.02] [facility] CPT-4: 47201 12/22/2017 ([id number]) 40518 EST. 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 PATIENT, LEVEL III Diagnosis: Mixed hyperlipidemia[ICD10: E78.2] Diagnosis: Other insomnia[ICD10: G47.09] Leora Hollis MD, [facility] CPT- 4: 60239 11/17/2017 [id number] EST. PATIENT, LEVEL III Diagnosis: Acute laryngopharyngitis[ICD10: J06.0] Diagnosis: Other allergic rhinitis[ICD10: J30.89] [facility]hire Hollis MD, [facility] CPT-4: 76462 10/06/2017 [id number] EST. PATIENT, LEVEL III Diagnosis: Pain in left shoulder[ICD10: M25.512] [facility] Hollis MD, [facility] CPT-4: 59905 07/24/2017 ([id number]) 09321 EST. 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] Leora Hollis MD, [facility] CPT-4: 22229 04/28/2017 ([id number]) Miscellaneous no charge Diagnosis: Impacted cerumen, bilateral[ICD10: H61.23] [facility] CPT-4: 07657 03/17/2017 ([id number]) OFFICE VISIT, NEW - LEVEL 4 Diagnosis: Mixed hyperlipidemia[ICD10: E78.2] Diagnosis: Chronic pain syndrome[ICD10: G89.4] Diagnosis: Presbycusis, bilateral[ICD10: H91.13] Diagnosis: Impacted cerumen, bilateral[ICD10: H61.23] Diagnosis: Atherosclerotic heart disease of [place] coronary artery without angina pectoris[ICD10: I25.10] Diagnosis: Personal history of other diseases of the circulatory system[ICD10: Z86.79] [facility] CPT-4: 47630 2017 Plan of Care Planned Activity Notes Codes Status Date Patient Education: Patient Medication Summary Completed 02/03/2018 [...] spray. 01/07/2018 [phone] [facility] (15 min) Moderate 01/07/2018 Patient Education: [...] Castillo WPtel: [phone] (15 min) Moderate 12/22/2017 Patient Education: Patient Medication Summary Completed 12/22/2017 Visit Plan: Neck and low back pain -will schedule MRI lumbar and cervical spine for further evaluation and proceed as indicated- patient verbalized understanding of plan. 12/15/2017 App[facility] [phone] [phone] (15 min) Moderate 12/15/2017 Patient Education: Patient Medication Summary Completed 12/15/2017 Patient Education: Back Pain Completed 12/15/2017 Care Plan: MRI LUMBAR SPINE W/O DYE LOINC : 97664-2 Pending 12/15/2017 Care Plan: MRI NECK SPINE W/O DYE LOINC : 81193-5 Pending 12/15/2017 Appointment: Injection 12/04/2017 Patient Education: [...] for health care surrogate. 11/27/2017 Appointment: Sapphire Oneli WPtel: [phone] [facility] [facility] - Annual Wellness Visit 11/27/2017 [...] to sleep 11/17/2017 Appointment: Leora Hollis WPtel: [phone] [facility] (15 min) Moderate 11/17/2017 Patient Education: [...] spray. 10/06/2017 [phone] [facility] [place] (15 min) Moderate 10/06/2017 Appointment[phone] [facility] (15 min) Moderate 10/06/2017 Patient Education: [...] plan. 07/24/2017 Appointment[phone] [facility] (30 min) Complex 07/24/2017 Patient Education: [...] medications. 07/14/2017 App[facility]ment: [facility] [phone] [facility] [place] (15 min) Moderate 07/14/2017 Patient Education: Patient Medication Summary Completed 07/14/2017 Appointment: Leora Hollis WPtel: [phone] [facility] (15 min) Moderate 07/10/2017 Appointment: Injection 06/26/2017 [...] night 06/09/2017 Appointment: Leora Hollis WPtel: [phone] [facility] (30 min) Complex 06/09/2017 Patient Education: [...] wax removal 03/14/2017 Appointment: Leora Hollis WPtel: [facility] New Patient 03/14/2017 [...] allergy spray. REFER FOR PHYSICAL THERAPY AT [facility] [place] -HE HAS A PT HE HAS SEEN [...]
--- OUTSIDE RECORDS SUMMARY | 2018-06-12 09:47 | XMS REPORT | CCD ---
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 Name Role Phone PP Unavailable CCM Unavailable Summary Purpose Interface Exchange Insurance Providers Payer name Policy type / Coverage type Covered constitution party ID Effective Begin Date Effective End Date WPS Medicare Part B Medicare Part B [id number] 2017 Unknown [facility] Medicare Part B [id number] 2017 Unknown Family history Father Diagnosis Age At Onset Heart Attack Unknown Social History Social History Element Codes Description Effective Dates Marital status Unknown 03/14/2017 Number of children Unknown 2 03/14/[address]: 1248503 Former smoker Quit 11/03/00; smoke 1/2 pack/day x15 years 03/14/[address]: 665174688 Never drinks alcohol 03/14/2017 Allergies, Adverse Reactions, Alerts Substance Reaction Codes Entered Date Inactivated Date Status * NO KNOWN ENVIRONMENTAL ALLERGIES Unknown 03/14/2017 No Inactive Date Active * NO KNOWN FOOD ALLERGIES Unknown 03/14/2017 No Inactive Date Active * NO KNOWN DRUG ALLERGIES Unknown 03/14/2017 No Inactive Date Active Past Medical History Illness Codes Condition Status Onset Date Resolved Date Acute laryngopharyngitis ICD-9: 465.0 ICD-10: J06.0 Active 10/06/2017 Unknown Other allergic rhinitis ICD-9: 477.8 ICD-10: J30.89 Active 10/06/2017 Unknown Other malaise ICD-9: 780.79 ICD-10: R53.81 Active 01/07/2018 Unknown 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 Active 04/28/2017 Unknown Spinal stenosis, cervical region ICD-9: 723.0 [...] Active 03/14/2017 Unknown 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 ICD-10: I25.10 Active 03/14/2017 Unknown Chronic pain syndrome ICD-9: 338.4 ICD-10: G89.4 Active 03/14/2017 Unknown Personal history of other diseases of the circulatory system ICD-9: V12.59 ICD-10: Z86.79 Active 03/14/2017 Unknown Presbycusis, 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 Active 03/14/2017 Unknown Problems Condition Codes Effective Dates Condition Status Acute laryngopharyngitis ICD-9: 465.0 ICD-10: J06.0 10/06/2017 Active Other allergic rhinitis ICD-9: 477.8 ICD-10: J30.89 10/06/2017 Active Other mal[place]ise ICD-9: 780.79 ICD-10: R53.81 01/07/2018 Active 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 04/28/2017 Active Spinal stenosis, cervical region ICD-9: 723.0 [...] H61.23 03/14/2017 Active 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 ICD-10: I25.10 03/14/2017 Active Chronic pain syndrome ICD-9: 338.4 ICD-10: G89.4 03/14/2017 Active Personal history of other diseases of the circulatory system ICD-9: V12.59 ICD-10: Z86.79 03/14/2017 Active Presbycusis, 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 03/14/2017 Active Medications Medication Codes Instructions Start Date Stop Date Status Fill Instructions cefdinir 300 mg capsule RxNorm: 901241 1 Capsule(s) PO BID 01/18/2018 Active prednisone 20 mg tablet RxNorm: 164839 2 Tablet(s) PO QAM 01/0901/13/2018 Active cefdinir 300 mg capsule RxNorm: 615205 1 Capsule(s) PO BID 01/08/2018 Inactive Zithromax Z-Timothy 250 mg tablet RxNorm: 288175 1 Tablet(s) PO UD 01/07/2018 No Stop Date Active Kenalog 40 mg/mL suspension for injection RxNorm: 1319094 Milliliter(s) Inj 01/07/2018 01/07/2018 Inactive ceftriaxone 500 mg solution for injection RxNorm: 0738176 Inj 01/07/2018 01/07/2018 Inactive testosterone cypionate 200 mg/mL intramuscular oil RxNorm: 553881 1/2 Milliliter(s ) IM 01/05/2018 01/05/2018 Inactive hydrocodone 5 mg-acetaminophen 325 mg tablet RxNorm: 340652 1-2 Tablet(s) PO Q6 PRN 12/22/2017 02/19/2018 Active zolpidem 5 mg tablet RxNorm: 319454 1 Tablet(s) PO 30 min before QHS 12/15/2017 02/12/2018 Active testosterone cypionate 200 mg/mL intramuscular oil RxNorm: 082668 Milliliter(s) IM 12/15/2017 12/15/2017 Inactive testosterone cypionate 200 mg/mL intramuscular oil RxNorm: 584392 1/2 Milliliter(s ) IM 12/04/2017 12/04/2017 Inactive testosterone cypionate 200 mg/mL intramuscular oil RxNorm: 550200 1/2 Milliliter(s ) IM 11/17/2017 11/17/2017 Inactive potassium chloride ER 10 mEq capsule,extended release RxNorm: 861083 TAKE ONE CAPSULE BY MOUTH DAILY 11/11/20172018 Active testosterone cypionate 200 mg/mL intramuscular oil RxNorm: 586289 Milliliter(s) IM 10/22/2017 10/22/2017 Inactive zolpidem 5 mg tablet RxNorm: 114355 1 Tablet(s) PO 30 min before QHS 10/15/2017 10/14/2017 Inactive zolpidem 5 mg tablet RxNorm: 785942 1 Tablet(s) PO 30 min before QHS 10/15/2017 12/13/2017 Inactive Zithromax Z-Timothy 250 mg tablet RxNorm: 368133 1 Tablet(s) PO UD 10/07/2017 11/16/2017 Inactive testosterone cypionate 200 mg/mL intramuscular oil RxNorm: 040539 Milliliter(s) IM 10/06/2017 10/06/2017 Inactive Kenalog 40 mg/mL suspension for injection RxNorm: 5357002 Milliliter(s) Inj 10/06/2017 10/06/2017 Inactive Zithromax Z-Timothy 250 mg tablet RxNorm: 700563 1 Tablet(s) PO UD 10/06/2017 10/06/2017 Inactive testosterone cypionate 200 mg/mL intramuscular oil RxNorm: 320804 Milliliter(s) IM 09/23/2017 09/23/2017 Inactive testosterone cypionate 200 mg/mL intramuscular kit RxNorm: 414228 1/2 Milliliter(s ) IM [id number] 08/28/2017 02/23/2018 Active meloxicam 15 mg tablet RxNorm: 967168 TAKE ONE TABLET BY MOUTH DAILY 08/28/2017 05/24/2018 Active testosterone cypionate 200 mg/mL intramuscular oil RxNorm: 042324 Milliliter(s) IM 08/28/2017 08/28/2017 Inactive testosterone cypionate 200 mg/mL intramuscular oil RxNorm: 032751 1/2 Milliliter(s ) IM 08/12/2017 08/12/2017 Inactive meloxicam 15 mg tablet RxNorm: 861493 1 Tablet(s) PO daily 08/201708/27/2017 Inactive atorvastatin 40 mg tablet RxNorm: 819058 TAKE ONE TABLET BY MOUTH DAILY 07/30/2017 02/24/2018 Active furosemide 40 mg tablet RxNorm: 451118 TAKE ONE TABLET BY MOUTH DAILY 07/30/2017 02/24/2018 Active testosterone cypionate 200 mg/mL intramuscular oil RxNorm: 837009 1/2 Milliliter(s ) IM 07/28/2017 07/28/2017 Inactive testosterone cypionate 200 mg/mL intramuscular oil RxNorm: 062107 1/2 Milliliter(s ) IM 07/14/2017 07/14/2017 Inactive testosterone cypionate 200 mg/mL intramuscular oil RxNorm: 005913 1/2 Milliliter(s ) IM 06/26/2017 06/26/2017 Inactive hydrocodone 5 mg-acetaminophen 325 mg tablet RxNorm: 072118 1 Tablet(s) PO QHS and 1 tab PO daily PRN pain 06/09/2017 Inactive hydrocodone 5 mg-acetaminophen 325 mg tablet RxNorm: 852062 1 Tablet(s) PO daily 06/09/2017 06/18/2017 Inactive testosterone cypionate 200 mg/mL intramuscular oil RxNorm: 987639 1/2 Milliliter(s ) IM 06/09/2017 06/09/2017 Inactive testosterone cypionate 200 mg/mL intramuscular oil RxNorm: 844841 Milliliter(s) IM 05/27/2017 05/27/2017 Inactive testosterone cypionate 200 mg/mL intramuscular oil RxNorm: 331323 Milliliter(s) IM 05/13/2017 05/13/2017 Inactive potassium chloride ER 10 mEq capsule,extended release RxNorm: 478907 1 Capsule(s) PO daily 05/07/2017 11/02/2017 Inactive Vitamin D2 50,000 unit capsule RxNorm: 472741 1 Capsule(s) PO QW 05/06/2017 05/05/2017 Inactive take with OTC vitamin d 2,000 units QD testosterone cypionate 200 mg/mL intramuscular kit RxNorm: 807229 1/2 kit IM 2 x month 05/06/2017 08/27/2017 Inactive Vitamin D2 50,000 unit capsule RxNorm: 280990 1 Capsule(s) PO QW 05/06/2017 08/03/2017 Inactive take with OTC vitamin d 2,000 units QD testosterone cypionate 200 mg/mL intramuscular oil RxNorm: 096141 1/2 Milliliter(s ) IM 04/29/2017 04/29/2017 Inactive fluorouracil 5 % topical cream RxNorm: 574089 1 Application TOP BID 04/28/2017 05/07/2017 Inactive testosterone cypionate 200 mg/mL intramuscular kit RxNorm: 529076 1/2 IM 2 x month 04/28/2017 05/05/2017 Inactive Pamelor 10 mg capsule RxNorm: 257629 1 Capsule(s) PO daily No Start Date Active gabapentin 300 mg capsule RxNorm: 526579 6 Capsule(s) PO daily No Start Date Active cyclobenzaprine 5 mg tablet RxNorm: 637191 1 Tablet(s) PO as needed No Start Date Active diclofenac 1 % topical gel RxNorm: 765180 1 Gram(s) TOP as needed No Start Date Active clopidogrel 75 mg tablet RxNorm: 423960 1 Tablet(s) PO daily No Start Date Active meloxicam 15 mg tablet RxNorm: 832429 1 Tablet(s) PO daily No Start Date 07/30/2017 Inactive potassium chloride ER 10 mEq tablet,extended release RxNorm: 945264 1 Tablet(s) PO daily No Start Date 05/06/2017 Inactive hydrocodone 5 mg-acetaminophen 325 mg tablet RxNorm: 582482 1 Tablet(s) PO daily No Start Date 06/08/2017 Inactive furosemide 40 mg tablet RxNorm: 344996 1 Tablet(s) PO daily No Start Date 07/29/2017 Inactive atorvastatin 40 mg tablet RxNorm: 208826 1 Tablet(s) PO QHS No Start Date 07/29/2017 Inactive Medication Administered Medication Codes Instructions Start Date Status Kenalog 40 mg/mL suspension for injection RxNorm: 6490349 Milliliter 01/07/2018 No longer Active ceftriaxone 500 mg solution for injection RxNorm: 9304229 01/07/2018 No longer Active testosterone cypionate 200 mg/mL intramuscular oil RxNorm: 025821 2Milliliter 01/05/2018 No longer Active testosterone cypionate 200 mg/mL intramuscular oil RxNorm: 322427 Milliliter 12/15/2017 No longer Active testosterone cypionate 200 mg/mL intramuscular oil RxNorm: 349284 /2Milliliter 12/04/2017 No longer Active testosterone cypionate 200 mg/mL intramuscular oil RxNorm: 240257 2Milliliter 11/17/2017 No longer Active testosterone cypionate 200 mg/mL intramuscular oil RxNorm: 847314 Milliliter 10/22/2017 No longer Active testosterone cypionate 200 mg/mL intramuscular oil RxNorm: 283343 Milliliter 10/06/2017 No longer Active Kenalog 40 mg/mL suspension for injection RxNorm: 6206250 Milliliter 10/06/2017 No longer Active testosterone cypionate 200 mg/mL intramuscular oil RxNorm: 911971 Milliliter 09/23/2017 No longer Active testosterone cypionate 200 mg/mL intramuscular oil RxNorm: 783148 Milliliter 08/28/2017 No longer Active testosterone cypionate 200 mg/mL intramuscular oil RxNorm: 224005 /2Milliliter 08/12/2017 No longer Active testosterone cypionate 200 mg/mL intramuscular oil RxNorm: 904979 /2Milliliter 07/28/2017 No longer Active testosterone cypionate 200 mg/mL intramuscular oil RxNorm: 818717 /2Milliliter 07/14/2017 No longer Active testosterone cypionate 200 mg/mL intramuscular oil RxNorm: 945040 2Milliliter 06/26/2017 No longer Active testosterone cypionate 200 mg/mL intramuscular oil RxNorm: 778485 /2Milliliter 06/09/2017 No longer Active testosterone cypionate 200 mg/mL intramuscular oil RxNorm: 376409 Milliliter 05/27/2017 No longer Active testosterone cypionate 200 mg/mL intramuscular oil RxNorm: 233762 Milliliter 05/13/2017 No longer Active testosterone cypionate 200 mg/mL intramuscular oil RxNorm: 786405 /2Milliliter 04/29/2017 No longer Active Immunizations Vaccine Codes Date Status Influenza CVX: 141 11/17/2017 completed Assessments Condition Codes Effective Dates Other malaise ICD-10: R53.81 ICD-9: 780.79 01/07/2018 Acute laryngopharyngitis ICD-10: J06.0 ICD-9: 465.0 01/07/2018 Other allergic rhinitis ICD-10: J30.89 ICD-9: 477.8 01/07/2018 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 ICD-9: 257.2 01/05/2018 Spinal stenosis, cervical region ICD-10: M48.02 ICD-9: [...] ICD-9: 380.4 03/17/2017 Atherosclerotic heart disease of [place] coronary artery without angina pectoris ICD-10: I25.10 [...] Item Item Code Result Date Influenza A+B Qxj138 Influ A+B Negative 01/08/2018 C A/B FLU [id number] Influenza A Scr TNP:Improper Specimen 01/07 C A/B FLU [id number] Influenza B Scr TNP:Improper Specimen 01/07 C A/B FLU [id number] IC OK? TNP:Improper Specimen 01/07/2018 C A/B FLU [id number] Influenza Intrp B AG: PRID:PT:NOSE:NOM:IF TNP:Improper Specimen 01/07/2018 Hepatic Kag187 ALBUMIN 3.7 g/dL 08/06/2017 Hepatic Tpi641 TPRO 5.9 g/dL 08/06/2017 Hepatic Gdc576 GLOB 2.2 g/dL 08/06/2017 Hepatic Tng330 A/G Ratio 1.7 Ratio 08/06/2017 Hepatic Onb724 ALK PHOS 46 U/L 08/06/2017 Hepatic Are011 ALT(SGPT) 9 U/L 08/06/2017 Hepatic Wxq355 AST(SGOT) 13 U/L 08/06/2017 Hepatic Nyh064 BILI T 0.6 mg/dL 08/06/2017 Hepatic Frz588 BILI D 0.2 mg/dL 08/06/2017 Hepatic Wek291 BILI I 0.4 mg/dL 08/06/2017 Testosterone Jsv352 Testo 474.5 ng/dL 08/06/2017 Cbc With Differential [...] 25.2 % 08/06/2017 Cbc With Differential Ord2 [place]% 11.2 % 08/06/2017 Cbc With Differential Ord2 MCH 28.5 pg 08/06/2017 Cbc With Differential Ord2 Eos% 4.9 % 08/06/2017 Cbc With Differential Ord2 MCHC 32.3 pg 08/06/2017 Cbc With Differential Ord2 PLT 335 K/ul 08/06/2017 Cbc With Differential Ord2 Baso% 1.1 % 08/06/2017 Cbc With Differential Ord2 RDW 14.2 % 08/06/2017 Cbc With Differential Ord2 Neut ABS# 3.03 K/ul 08/06/2017 Cbc With Differential Ord2 Lymph ABS# 1.33 K/ul 08/06/2017 Cbc With Differential Ord2 [place] ABS# 0.6 K/ul 08/06/2017 Cbc With Differential Ord2 Eos ABS# 0.3 K/ul 08/06/2017 Cbc With Differential Ord2 Baso ABS# 0.1 K/ul 08/06/2017 Comp Metabolic Glz915 NA 140 mEq/L 06/02/2017 Comp Metabolic Mgt133 K 3.8 mEq/L 06/02/2017 Comp Metabolic Cfi921 CL 102 mEq/L 06/02/2017 Comp Metabolic Lpc668 CO2 30.0 mEq/L 06/02/2017 Comp Metabolic Jfs484 ANION GAP 12 06/02/2017 Comp Metabolic Abw051 GLUCOSE 100 mg/dL 06/02/2017 Comp Metabolic Mfj405 Creat 1.1 mg/dL 06/02/2017 Comp Metabolic Kqz959 eGFR 69 ml/min/1.73m2 06/02/2017 Comp Metabolic Taw921 BUN 15 mg/dL 06/02/2017 Comp Metabolic Rvq781 B/C Ratio 13.4 Ratio 06/02/2017 Comp Metabolic Oxe655 CALCIUM 8.6 mg/dL 06/02/2017 Comp Metabolic Eic426 ALK PHOS 63 U/L 06/02/2017 Comp Metabolic Rtt664 AST(SGOT) 17 U/L 06/02/2017 Comp Metabolic Sly643 ALT(SGPT) 12 U/L 06/02/2017 Comp Metabolic Kar467 BILI T 0.5 mg/dL 06/02/2017 Comp Metabolic Kwd029 ALBUMIN 3.9 g/dL 06/02/2017 Comp Metabolic Shm414 TPRO 6.1 g/dL 06/02/2017 Comp Metabolic Ngr558 GLOB 2.2 g/dL 06/02/2017 Comp Metabolic Izb320 A/G Ratio 1.8 Ratio 06/02/2017 Comp Metabolic Xkt589 Osmo 280 mOsmo 06/02/2017 Vitamin D 25 Oh Loz4907 VITAMIN D, 25 HYDROXY 40.03 ng/mL Cbc [...] 29.7 pg 06/02/2017 Cbc With Differential Ord2 [place]% 10.5 % 06/02/2017 Cbc With Differential Ord2 Eos% 3.3 % 06/02/2017 Cbc With Differential Ord2 MCHC 31.9 pg 06/02/2017 Cbc With Differential Ord2 PLT 267 K/ul 06/02/2017 Cbc With Differential Ord2 Baso% 1.1 % 06/02/2017 Cbc With Differential Ord2 Neut ABS# 2.93 K/ul 06/02/2017 Cbc With Differential Ord2 RDW 13.8 % 06/02/2017 Cbc With Differential Ord2 Lymph ABS# 1.52 K/ul 06/02/2017 Cbc With Differential Ord2 [place] ABS# 0.6 K/ul 06/02/2017 Cbc With Differential Ord2 Eos ABS# 0.2 K/ul 06/02/2017 Cbc With Differential Ord2 Baso ABS# 0.1 K/ul 06/02/2017 Testosterone Apw292 Testo 198.4 ng/dL 04/29/2017 Vitamin D 25 Oh Vzw1626 VITAMIN D, 25 HYDROXY 29.25 ng/mL Lipid [...] accomodation 11/17/2017 None Full Exam - General 1995 Ears/Nose/Throat lips/teeth/gingiva Overall: benign lips 11/17/2017 None [...] benign 11/17/2017 None Full Exam - General 1995 Ears/Nose/Throat oral cavity/pharynx/larynx Overall: no masses 11/17/2017 [...] Procedure Codes Date THER/PROPH/DIAG INJ SC/IM CPT-4: 26255 01/07/2018 TRIAMCINOLONE ACET INJ NOS CPT-4: J3301 01/07/2018 ROCEPHIN, PER 250 MG CPT-4: J0696 01/07/2018 THER/PROPH/DIAG INJ SC/IM CPT-4: 20410 01/05/2018 THER/PROPH/DIAG INJ SC/IM CPT-4: 72613 12/15/2017 THER/PROPH/DIAG INJ SC/IM CPT-4: 18195 12/04/2017 PPPS, SUBSEQ VISIT CPT -4: G0439 11/27/2017 ADMIN INFLUENZA VIRUS VAC CPT-4: G0008 11/17/2017 FLU VAC NO PRSV 4 FATOU 3 YRS+ CPT-4: 18726 11/17/2017 THER/PROPH/DIAG INJ SC/IM CPT-4: 16636 11/17/2017 THER/PROPH/DIAG INJ SC/IM CPT-4: 88107 10/22/2017 THER/PROPH/DIAG INJ SC/IM CPT-4: 91208 10/06/2017 TRIAMCINOLONE ACET INJ NOS CPT-4: J3301 10/06/2017 THER/PROPH/DIAG INJ SC/IM CPT-4: 90159 09/23/2017 THER/PROPH/DIAG INJ SC/IM CPT-4: 29983 08/28/2017 THER/PROPH/DIAG INJ SC/IM CPT-4: 91761 08/12/2017 THER/PROPH/DIAG INJ SC/IM CPT-4: 59427 07/28/2017 THER/PROPH/DIAG INJ SC/IM CPT-4: 29148 07/14/2017 THER/PROPH/DIAG INJ SC/IM CPT-4: 88488 06/26/2017 THER/PROPH/DIAG INJ SC/IM CPT-4: 24724 06/09/2017 THER/PROPH/DIAG INJ SC/IM CPT-4: 31510 05/27/2017 THER/PROPH/DIAG INJ SC/IM CPT-4: 41548 05/13/2017 THER/PROPH/DIAG INJ SC/IM CPT-4: 60650 04/29/2017 Vital Signs Date Vital 01/07/2018 Blood Pressure 1: 126/66 Code : 8480-6 BMI: 30.1 Code : 51372-0 Heart Rate 1 : 75 bpm Height: 5'10" SpO2: 97% Temperature: 36.5 (C) / 97.7 (F) Weight: 210 lbs 12/22/2017 Blood Pressure 1: 124/70 Code : 8480-6 BMI: 29.7 Code : 20399-2 Heart Rate 1 : 84 bpm Height: 5'10" SpO2: 94% Weight: 207 lbs 12/15/2017 Blood Pressure 1: 122/82 Code : 8480-6 BMI: 30.0 Code : 81238-0 Heart Rate 1 : 82 bpm Height: 5'10" SpO2: 93% Weight: 209 lbs 11/27/2017 Blood Pressure 1: 132/68 Code : 8480-6 BMI: 29.3 Code : 40735-4 Heart Rate 1 : 71 bpm Height: 5'10" SpO2: 97% Waist Measure (cm): 97 cm Weight: 204 lbs 11/17/2017 Blood Pressure 1: 130/80 Code : 8480-6 BMI: 29.3 Code : 95757-2 Heart Rate 1 : 73 bpm Height: 5'10" SpO2: 99% Weight: 204 lbs 10/06/2017 Blood Pressure 1: 124/60 Code : 8480-6 BMI: 28.8 Code : 53207-7 Heart Rate 1 : 70 bpm Height: 5'10" SpO2: 98% Weight: 201 lbs 07/24/2017 Blood Pressure 1: 118/70 Code : 8480-6 BMI: 29.3 Code : 81369-6 Heart Rate 1 : 82 bpm Height: 5'10" SpO2: 96% Weight: 204 lbs 07/14/2017 Blood Pressure 1: 118/72 Code : 8480-6 BMI: 29.1 Code : 12520-6 Heart Rate 1 : 83 bpm Height: 5'10" SpO2: 98% Weight: 203 lbs 06/09/2017 Blood Pressure 1: 120/74 Code : 8480-6 BMI: 29.3 Code : 42277-5 Heart Rate 1 : 91 bpm Height: 5'10" SpO2: 99% Weight: 204 lbs 04/28/2017 Blood Pressure 1: 118/68 Code : 8480-6 BMI: 28.8 Code : 66941-3 Heart Rate 1 : 74 bpm Height: 5'10" SpO2: 96% Weight: 201 lbs 03/14/2017 Blood Pressure 1: 114/74 Code : 8480-6 BMI: 28.6 Code : 60063-6 Heart Rate 1 : 77 bpm Height: [...] Sapphire Hollis MD, [facility] CPT-4: 31197 01/07/2018 ([id number]) 65608 EST. PATIENT, LEVEL III Diagnosis: Spinal stenosis, lumbosacral region[ICD10: M48.07] Diagnosis: Spinal stenosis, cervical region[ICD10: M48.02] Elise Hollis MD, [facility] CPT-4: 51408 12/22/2017 ([id number]) 36319 EST. PATIENT, LEVEL III Diagnosis: Cervicalgia[ICD10: M54.2] Diagnosis: Low back pain[ICD10: M54.5] Diagnosis: Testicular hypofunction[ICD10: E29.1] Elise Hollis MD, [facility] CPT-4: 56321 12/15/2017 ([id number]) 56275 EST. PATIENT, LEVEL III Diagnosis: Mixed hyperlipidemia[ICD10: E78.2] Diagnosis: Other insomnia[ICD10: G47.09] Leora Hollis MD, [facility] CPT- 4: 07859 11/17/2017 [id number] EST. PATIENT, LEVEL III Diagnosis: Acute laryngopharyngitis[ICD10: J06.0] Diagnosis: Other allergic rhinitis[ICD10: J30.89] Sapphire Hollis MD, [facility] CPT-4: 44224 10/06/2017 [id number] EST. PATIENT, LEVEL III Diagnosis: Pain in left shoulder[ICD10: M25.512] Sapphire Hollis MD, [facility] CPT-4: 57268 07/24/2017 ([id number]) 18126 EST. PATIENT, LEVEL IV Diagnosis: Mixed hyperlipidemia[ICD10: E78.2] Diagnosis: Chronic obstructive pulmonary disease, unspecified[ICD10: J44.9] Diagnosis: Testicular hypofunction[ICD10: E29.1] Leora Hollis MD, [facility] CPT-4: 05972 07/14/2017 ([id number]) 62751 EST. 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] Diagnosis: Mixed hyperlipidemia[ICD10: E78.2] Diagnosis: Hypoxemia[ICD10: R09.02] Leora Hollis MD, [facility] CPT-4: 18195 06/09/2017 ([id number]) 77937 EST. 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] Leora Hollis MD, [facility] CPT-4: 59342 04/28/2017 ([id number]) Miscellaneous no charge Diagnosis: Impacted cerumen, bilateral[ICD10: H61.23] Leora Hollis MD, [facility] CPT-4: 32024 03/17/2017 ([id number]) OFFICE VISIT, NEW - LEVEL 4 Diagnosis: Mixed hyperlipidemia[ICD10: E78.2] Diagnosis: Chronic pain syndrome[ICD10: G89.4] Diagnosis: Presbycusis, bilateral[ICD10: H91.13] Diagnosis: Impacted cerumen, bilateral[ICD10: H61.23] Diagnosis: Atherosclerotic heart disease of [place] coronary artery without angina pectoris[ICD10: I25.10] Diagnosis: Personal history of other diseases of the circulatory system[ICD10: Z86.79] Leora Hollis MD, [facility] CPT-4: 55845 2017 Plan of Care Planned Activity Notes Codes Status Date Visit Plan: URI - Pt advised to [...] allergy spray. 01/07/2018 Appointment: Sapphire Oneil WPtel: [address] [place], [place] [address] (15 min) Moderate 01/07/2018 Patient Education: Patient [...] of plan. 12/22/2017 Appointment: Elise Castillo WPtel: [address] [place], [place] [id number] [place] [address] (15 min) Moderate 12/22/2017 Patient Education: Patient Medication Summary Completed 12/22/2017 Visit Plan: Neck and low back pain -will schedule MRI lumbar and cervical spine for further evaluation and proceed as indicated- patient verbalized understanding of plan. 12/15/2017 Appointment: Elise Castillo WPtel: [phone] (15 min) Moderate 12/15/2017 Patient Education: Patient Medication Summary Completed 12/15/2017 Patient Education: Back Pain Completed 12/15/2017 Care Plan: MRI LUMBAR SPINE W/O DYE LOINC : 45392-4 Pending 12/15/2017 Care Plan: MRI NECK SPINE W/O DYE LOINC : 62609-7 Pending 12/15/2017 Appointment: Injection 12/04/2017 Patient Education: [...] care surrogate. 11/27/2017 Appointment: Sapphire Oneil WPtel: [facility] [facility] - Annual Wellness Visit 11/27/2017 Patient Education: [...] sleep 11/17/2017 Appointment: Leora Hollis WPtel: [phone] [facility] (15 min) Moderate 11/17/2017 Patient Education: Patient [...] spray. 10/06/2017 Appointment[facility] [phone] [facility] (15 min) Moderate 10/06/2017 Appointment: Sapphire Oneil WPtel: [phone] [facility] (15 min) Moderate 10/06/2017 Patient Education: [...] plan. 07/24/2017 [phone] ([facility] min) Complex 07/24/2017 Patient Education: [...] medications. 07/14/2017 Appointment: [facility] [phone] [facility] [place] (15 min) Moderate 07/14/2017 Patient Education: Patient Medication Summary Completed 07/14/2017 Appointment: [facility] [phone] [facility] [place] (15 min) Moderate 07/10/2017 Appointment: [...] night 06/09/2017 Appointment: [facility] [phone] [facility] (30 min) Complex 06/09/2017 Patient Education: Patient [...] 15 04/28/2017 Appointment: [facility] [phone] [facility] (30 min) Complex 04/28/2017 Patient Education: [...] Appointment: Leora Hollis WPtel: [facility] [place] Patient 03/14/2017 Patient Education: Patient [...] plan. REFER FOR PHYSICAL THERAPY AT [facility] -HE HAS A PT HE HAS SEEN [...]
--- OUTSIDE RECORDS SUMMARY | 2018-06-12 09:49 | XMS REPORT | CCD ---
Author Author [facility] Organization [facility] Address [address] [place] [address] Phone Care Team Providers Care Library Services Assistant Name Role Phone PP Unavailable CCM Unavailable Summary Purpose Interface Exchange Insurance Providers Payer name Policy type / Coverage type Covered libertarian ID Effective Begin Date Effective End Date WPS Medicare Part B Medicare Part B [id number] 2017 Unknown [facility] Medicare Part B [id number] 2017 Unknown Family history Father Diagnosis Age At Onset Heart Attack Unknown Social History Social History Element Codes Description Effective Dates Marital status Unknown 03/14/2017 Number of children Unknown 2 03/14/[address]: 6740547 Former smoker Quit 11/03/00; smoke 1/2 pack/day x15 years 03/14/[address]: 013200730 Never drinks alcohol 03/14/2017 Allergies, Adverse Reactions, [...] Active 03/14/2017 Unknown 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 [...] H61.23 03/14/2017 Active 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 ICD-10: I25.10 03/14/2017 Active Chronic pain syndrome ICD-9: 338.4 ICD-10: G89.4 03/14/2017 Active Personal history of other diseases of the circulatory system ICD-9: V12.59 ICD-10: Z86.79 03/14/2017 Active Presbycusis, 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 03/14/2017 Active Medications Medication Codes Instructions Start Date Stop Date Status Fill Instructions Zithromax Z-Timothy 250 mg tablet RxNorm: 856199 1 Tablet(s) PO UD 01/07/2018 No Stop Date Active Kenalog 40 mg/mL suspension for injection RxNorm: 7923163 Milliliter(s) Inj 01/07/2018 01/07/2018 Inactive ceftriaxone 500 mg solution for injection RxNorm: 7744785 Inj 01/07/2018 01/07/2018 Inactive testosterone cypionate 200 mg/mL intramuscular oil RxNorm: 424149 1/2 Milliliter(s ) IM 01/05/2018 01/05/2018 Inactive hydrocodone 5 mg-acetaminophen 325 mg tablet RxNorm: 516007 1-2 Tablet(s) PO Q6 PRN 12/22/2017 02/19/2018 Active zolpidem 5 mg tablet RxNorm: 692642 1 Tablet(s) PO 30 min before QHS 12/15/2017 02/12/2018 Active testosterone cypionate 200 mg/mL intramuscular oil RxNorm: 934562 Milliliter(s) IM 12/15/2017 12/15/2017 Inactive testosterone cypionate 200 mg/mL intramuscular oil RxNorm: 761960 1/2 Milliliter(s ) IM 12/04/2017 12/04/2017 Inactive testosterone cypionate 200 mg/mL intramuscular oil RxNorm: 172543 1/2 Milliliter(s ) IM 11/17/2017 11/17/2017 Inactive potassium chloride ER 10 mEq capsule,extended release RxNorm: 820618 TAKE ONE CAPSULE BY MOUTH DAILY 11/11/20172018 Active testosterone cypionate 200 mg/mL intramuscular oil RxNorm: 020168 Milliliter(s) IM 10/22/2017 10/22/2017 Inactive zolpidem 5 mg tablet RxNorm: 440299 1 Tablet(s) PO 30 min before QHS 10/15/2017 10/14/2017 Inactive zolpidem 5 mg tablet RxNorm: 769491 1 Tablet(s) PO 30 min before QHS 10/15/2017 12/13/2017 Inactive Zithromax Z-Timothy 250 mg tablet RxNorm: 874184 1 Tablet(s) PO UD 10/07/2017 11/16/2017 Inactive testosterone cypionate 200 mg/mL intramuscular oil RxNorm: 509929 Milliliter(s) IM 10/06/2017 10/06/2017 Inactive Kenalog 40 mg/mL suspension for injection RxNorm: 3220452 Milliliter(s) Inj 10/06/2017 10/06/2017 Inactive Zithromax Z-Timothy 250 mg tablet RxNorm: 845421 1 Tablet(s) PO UD 10/06/2017 10/06/2017 Inactive testosterone cypionate 200 mg/mL intramuscular oil RxNorm: 290259 Milliliter(s) IM 09/23/2017 09/23/2017 Inactive testosterone cypionate 200 mg/mL intramuscular kit RxNorm: 609290 1/2 Milliliter(s ) IM [id number] 08/28/2017 02/23/2018 Active meloxicam 15 mg tablet RxNorm: 183959 TAKE ONE TABLET BY MOUTH DAILY 08/28/2017 05/24/2018 Active testosterone cypionate 200 mg/mL intramuscular oil RxNorm: 065560 Milliliter(s) IM 08/28/2017 08/28/2017 Inactive testosterone cypionate 200 mg/mL intramuscular oil RxNorm: 760971 1/2 Milliliter(s ) IM 08/12/2017 08/12/2017 Inactive meloxicam 15 mg tablet RxNorm: 040420 1 Tablet(s) PO daily 08/201708/27/2017 Inactive atorvastatin 40 mg tablet RxNorm: 681242 TAKE ONE TABLET BY MOUTH DAILY 07/30/2017 02/24/2018 Active furosemide 40 mg tablet RxNorm: 929868 TAKE ONE TABLET BY MOUTH DAILY 07/30/2017 02/24/2018 Active testosterone cypionate 200 mg/mL intramuscular oil RxNorm: 748437 1/2 Milliliter(s ) IM 07/28/2017 07/28/2017 Inactive testosterone cypionate 200 mg/mL intramuscular oil RxNorm: 696348 1/2 Milliliter(s ) IM 07/14/2017 07/14/2017 Inactive testosterone cypionate 200 mg/mL intramuscular oil RxNorm: 856175 1/2 Milliliter(s ) IM 06/26/2017 06/26/2017 Inactive hydrocodone 5 mg-acetaminophen 325 mg tablet RxNorm: 316457 1 Tablet(s) PO QHS and 1 tab PO daily PRN pain 06/09/2017 Inactive hydrocodone 5 mg-acetaminophen 325 mg tablet RxNorm: 313420 1 Tablet(s) PO daily 06/09/2017 06/18/2017 Inactive testosterone cypionate 200 mg/mL intramuscular oil RxNorm: 833025 1/2 Milliliter(s ) IM 06/09/2017 06/09/2017 Inactive testosterone cypionate 200 mg/mL intramuscular oil RxNorm: 203822 Milliliter(s) IM 05/27/2017 05/27/2017 Inactive testosterone cypionate 200 mg/mL intramuscular oil RxNorm: 682899 Milliliter(s) IM 05/13/2017 05/13/2017 Inactive potassium chloride ER 10 mEq capsule,extended release RxNorm: 136588 1 Capsule(s) PO daily 05/07/2017 11/02/2017 Inactive Vitamin D2 50,000 unit capsule RxNorm: 817316 1 Capsule(s) PO QW 05/06/2017 05/05/2017 Inactive take with OTC vitamin d 2,000 units QD testosterone cypionate 200 mg/mL intramuscular kit RxNorm: 037087 1/2 kit IM 2 x month 05/06/2017 08/27/2017 Inactive Vitamin D2 50,000 unit capsule RxNorm: 292017 1 Capsule(s) PO QW 05/06/2017 08/03/2017 Inactive take with OTC vitamin d 2,000 units QD testosterone cypionate 200 mg/mL intramuscular oil RxNorm: 769013 1/2 Milliliter(s ) IM 04/29/2017 04/29/2017 Inactive fluorouracil 5 % topical cream RxNorm: 027110 1 Application TOP BID 04/28/2017 05/07/2017 Inactive testosterone cypionate 200 mg/mL intramuscular kit RxNorm: 018462 1/2 IM 2 x month 04/28/2017 05/05/2017 Inactive Pamelor 10 mg capsule RxNorm: 574700 1 Capsule(s) PO daily No Start Date Active gabapentin 300 mg capsule RxNorm: 419905 6 Capsule(s) PO daily No Start Date Active cyclobenzaprine 5 mg tablet RxNorm: 521611 1 Tablet(s) PO as needed No Start Date Active diclofenac 1 % topical gel RxNorm: 775058 1 Gram(s) TOP as needed No Start Date Active clopidogrel 75 mg tablet RxNorm: 356481 1 Tablet(s) PO daily No Start Date Active meloxicam 15 mg tablet RxNorm: 543730 1 Tablet(s) PO daily No Start Date 07/30/2017 Inactive potassium chloride ER 10 mEq tablet,extended release RxNorm: 382659 1 Tablet(s) PO daily No Start Date 05/06/2017 Inactive hydrocodone 5 mg-acetaminophen 325 mg tablet RxNorm: 656450 1 Tablet(s) PO daily No Start Date 06/08/2017 Inactive furosemide 40 mg tablet RxNorm: 601053 1 Tablet(s) PO daily No Start Date 07/29/2017 Inactive atorvastatin 40 mg tablet RxNorm: 473718 1 Tablet(s) PO QHS No Start Date 07/29/2017 Inactive Medication Administered Medication Codes Instructions Start Date Status Kenalog 40 mg/mL suspension for injection RxNorm: 9776647 Milliliter 01/07/2018 Active ceftriaxone 500 mg solution for injection RxNorm: 9709746 01/07/2018 Active testosterone cypionate 200 mg/mL intramuscular oil RxNorm: 332751 /2Milliliter 01/05/2018 No longer Active testosterone cypionate 200 mg/mL intramuscular oil RxNorm: 925824 Milliliter 12/15/2017 No longer Active testosterone cypionate 200 mg/mL intramuscular oil RxNorm: 700629 /2Milliliter 12/04/2017 No longer Active testosterone cypionate 200 mg/mL intramuscular oil RxNorm: 027001 /2Milliliter 11/17/2017 No longer Active testosterone cypionate 200 mg/mL intramuscular oil RxNorm: 922191 Milliliter 10/22/2017 No longer Active testosterone cypionate 200 mg/mL intramuscular oil RxNorm: 447476 Milliliter 10/06/2017 No longer Active Kenalog 40 mg/mL suspension for injection RxNorm: 6316821 Milliliter 10/06/2017 No longer Active testosterone cypionate 200 mg/mL intramuscular oil RxNorm: 505234 Milliliter 09/23/2017 No longer Active testosterone cypionate 200 mg/mL intramuscular oil RxNorm: 698850 Milliliter 08/28/2017 No longer Active testosterone cypionate 200 mg/mL intramuscular oil RxNorm: 073561 1/2Milliliter 08/12/2017 No longer Active testosterone cypionate 200 mg/mL intramuscular oil RxNorm: 740332 /2Milliliter 07/28/2017 No longer Active testosterone cypionate 200 mg/mL intramuscular oil RxNorm: 030274 2Milliliter 07/14/2017 No longer Active testosterone cypionate 200 mg/mL intramuscular oil RxNorm: 555878 /2Milliliter 06/26/2017 No longer Active testosterone cypionate 200 mg/mL intramuscular oil RxNorm: 424566 /2Milliliter 06/09/2017 No longer Active testosterone cypionate 200 mg/mL intramuscular oil RxNorm: 830841 Milliliter 05/27/2017 No longer Active testosterone cypionate 200 mg/mL intramuscular oil RxNorm: 962519 Milliliter 05/13/2017 No longer Active testosterone cypionate 200 mg/mL intramuscular oil RxNorm: 709853 2Milliliter 04/29/2017 No longer Active Immunizations Vaccine [...] ICD-9: 380.4 03/17/2017 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 TNP:Improper Specimen 01/07/2018 C A/B FLU [id number] Influenza Intrp B AG: PRID:PT:NOSE:NOM:IF TNP:Improper Specimen 01/07/2018 Hepatic Ahz008 ALBUMIN 3.7 g/dL 08/06/2017 Hepatic Kyi294 TPRO 5.9 g/dL 08/06/2017 Hepatic Bpb187 GLOB 2.2 g/dL 08/06/2017 Hepatic Cpn780 A/G Ratio 1.7 Ratio 08/06/2017 Hepatic Jhl375 ALK PHOS 46 U/L 08/06/2017 Hepatic Lew074 ALT(SGPT) 9 U/L 08/06/2017 Hepatic Wgs480 AST(SGOT) 13 U/L 08/06/2017 Hepatic Bak011 BILI T 0.6 mg/dL 08/06/2017 Hepatic Mza410 BILI D 0.2 mg/dL 08/06/2017 Hepatic Brj837 BILI I 0.4 mg/dL 08/06/2017 Testosterone Sxh346 Testo 474.5 ng/dL 08/06/2017 Cbc With Differential [...] 25.2 % 08/06/2017 Cbc With Differential Ord2 [facility]% 11.2 % 08/06/2017 Cbc With Differential Ord2 [...] 1.33 K/ul 08/06/2017 Cbc With Differential Ord2 [facility] ABS# 0.6 K/ul 08/06/2017 Cbc With Differential Ord2 Eos ABS# 0.3 K/ul 08/06/2017 Cbc With Differential Ord2 Baso ABS# 0.1 K/ul 08/06/2017 Comp Metabolic Yah625 NA 140 mEq/L 06/02/2017 Comp Metabolic Vdt017 K 3.8 mEq/L 06/02/2017 Comp Metabolic Kel995 CL 102 mEq/L 06/02/2017 Comp Metabolic Rdc639 CO2 30.0 mEq/L 06/02/2017 Comp Metabolic Kve723 ANION GAP 12 06/02/2017 Comp Metabolic Els849 GLUCOSE 100 mg/dL 06/02/2017 Comp Metabolic Xse709 Creat 1.1 mg/dL 06/02/2017 Comp Metabolic Ffl689 eGFR 69 ml/min/1.73m2 06/02/2017 Comp Metabolic Ehj225 BUN 15 mg/dL 06/02/2017 Comp Metabolic Fxa799 B/C Ratio 13.4 Ratio 06/02/2017 Comp Metabolic Axq913 CALCIUM 8.6 mg/dL 06/02/2017 Comp Metabolic Meh038 ALK PHOS 63 U/L 06/02/2017 Comp Metabolic Xgr314 AST(SGOT) 17 U/L 06/02/2017 Comp Metabolic Gei252 ALT(SGPT) 12 U/L 06/02/2017 Comp Metabolic Hpr774 BILI T 0.5 mg/dL 06/02/2017 Comp Metabolic Def884 ALBUMIN 3.9 g/dL 06/02/2017 Comp Metabolic Ygm267 TPRO 6.1 g/dL 06/02/2017 Comp Metabolic Ogb022 GLOB 2.2 g/dL 06/02/2017 Comp Metabolic Gip205 A/G Ratio 1.8 Ratio 06/02/2017 Comp Metabolic Nus369 Osmo 280 mOsmo 06/02/2017 Vitamin D 25 Oh Kma1511 VITAMIN D, 25 HYDROXY 40.03 ng/mL Cbc [...] 29.7 pg 06/02/2017 Cbc With Differential Ord2 [facility]% 10.5 % 06/02/2017 Cbc With Differential Ord2 [...] 1.52 K/ul 06/02/2017 Cbc With Differential Ord2 [facility] ABS# 0.6 K/ul 06/02/2017 Cbc With Differential Ord2 Eos ABS# 0.2 K/ul 06/02/2017 Cbc With Differential Ord2 Baso ABS# 0.1 K/ul 06/02/2017 Testosterone Qid028 Testo 198.4 ng/dL 04/29/2017 Vitamin D 25 Oh May2397 VITAMIN D, 25 HYDROXY 29.25 ng/mL Lipid [...] accomodation 12/15/2017 None Full Exam - General 1995 Ears/Nose/Throat lips/teeth/gingiva Overall: benign lips 12/15/2017 None [...] dentition 11/17/2017 None Full Exam - General 1995 [...] Procedure Codes Date THER/PROPH/DIAG INJ SC/IM CPT-4: 23315 01/07/2018 TRIAMCINOLONE ACET INJ NOS CPT-4: J3301 01/07/2018 ROCEPHIN, PER 250 MG CPT-4: J0696 01/07/2018 THER/PROPH/DIAG INJ SC/IM CPT-4: 60760 01/05/2018 THER/PROPH/DIAG INJ SC/IM CPT-4: 69992 12/15/2017 THER/PROPH/DIAG INJ SC/IM CPT-4: 82470 12/04/2017 PPPS, SUBSEQ VISIT CPT -4: G0439 11/27/2017 ADMIN INFLUENZA VIRUS VAC CPT-4: G0008 11/17/2017 FLU VAC NO PRSV 4 FATOU 3 YRS+ CPT-4: 01303 11/17/2017 THER/PROPH/DIAG INJ SC/IM CPT-4: 01407 11/17/2017 THER/PROPH/DIAG INJ SC/IM CPT-4: 83489 10/22/2017 THER/PROPH/DIAG INJ SC/IM CPT-4: 53669 10/06/2017 TRIAMCINOLONE ACET INJ NOS CPT-4: J3301 10/06/2017 THER/PROPH/DIAG INJ SC/IM CPT-4: 42128 09/23/2017 THER/PROPH/DIAG INJ SC/IM CPT-4: 33303 08/28/2017 THER/PROPH/DIAG INJ SC/IM CPT-4: 08935 08/12/2017 THER/PROPH/DIAG INJ SC/IM CPT-4: 23470 07/28/2017 THER/PROPH/DIAG INJ SC/IM CPT-4: 43562 07/14/2017 THER/PROPH/DIAG INJ SC/IM CPT-4: 78052 06/26/2017 THER/PROPH/DIAG INJ SC/IM CPT-4: 37695 06/09/2017 THER/PROPH/DIAG INJ SC/IM CPT-4: 74703 05/27/2017 THER/PROPH/DIAG INJ SC/IM CPT-4: 20119 05/13/2017 THER/PROPH/DIAG INJ SC/IM CPT-4: 25888 04/29/2017 Vital Signs Date Vital 01/07/2018 Blood Pressure 1: 126/66 Code : 8480-6 BMI: 30.1 Code : 67086-7 Heart Rate 1 : 75 bpm Height: 5'10" SpO2: 97% Temperature: 36.5 (C) / 97.7 (F) Weight: 210 lbs 12/22/2017 Blood Pressure 1: 124/70 Code : 8480-6 BMI: 29.7 Code : 82797-7 Heart Rate 1 : 84 bpm Height: 5'10" SpO2: 94% Weight: 207 lbs 12/15/2017 Blood Pressure 1: 122/82 Code : 8480-6 BMI: 30.0 Code : 16461-8 Heart Rate 1 : 82 bpm Height: 5'10" SpO2: 93% Weight: 209 lbs 11/27/2017 Blood Pressure 1: 132/68 Code : 8480-6 BMI: 29.3 Code : 60668-1 Heart Rate 1 : 71 bpm Height: 5'10" SpO2: 97% Waist Measure (cm): 97 cm Weight: 204 lbs 11/17/2017 Blood Pressure 1: 130/80 Code : 8480-6 BMI: 29.3 Code : 74959-7 Heart Rate 1 : 73 bpm Height: 5'10" SpO2: 99% Weight: 204 lbs 10/06/2017 Blood Pressure 1: 124/60 Code : 8480-6 BMI: 28.8 Code : 63717-7 Heart Rate 1 : 70 bpm Height: 5'10" SpO2: 98% Weight: 201 lbs 07/24/2017 Blood Pressure 1: 118/70 Code : 8480-6 BMI: 29.3 Code : 88623-0 Heart Rate 1 : 82 bpm Height: 5'10" SpO2: 96% Weight: 204 lbs 07/14/2017 Blood Pressure 1: 118/72 Code : 8480-6 BMI: 29.1 Code : 87988-6 Heart Rate 1 : 83 bpm Height: 5'10" SpO2: 98% Weight: 203 lbs 06/09/2017 Blood Pressure 1: 120/74 Code : 8480-6 BMI: 29.3 Code : 08568-8 Heart Rate 1 : 91 bpm Height: 5'10" SpO2: 99% Weight: 204 lbs 04/28/2017 Blood Pressure 1: 118/68 Code : 8480-6 BMI: 28.8 Code : 24960-0 Heart Rate 1 : 74 bpm Height: 5'10" SpO2: 96% Weight: 201 lbs 03/14/2017 Blood Pressure 1: 114/74 Code : 8480-6 BMI: 28.6 Code : 47655-4 Heart Rate 1 : 77 bpm Height: [...] Other allergic rhinitis[ICD10: J30.89] Sapphire Hollis MD, [facility] CPT-4: 48338 01/07/2018 ([id number]) 13558 EST. PATIENT, LEVEL III Diagnosis: Spinal stenosis, lumbosacral region[ICD10: M48.07] Diagnosis: Spinal stenosis, cervical region[ICD10: M48.02] Elise Hollis MD, [facility] CPT-4: 81288 12/22/2017 ([id number]) 99718 EST. 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 PATIENT, LEVEL III Diagnosis: Mixed hyperlipidemia[ICD10: E78.2] Diagnosis: Other insomnia[ICD10: G47.09] Leora Hollis MD, [facility] CPT- 4: 22436 11/17/2017 [id number] EST. PATIENT, LEVEL III Diagnosis: Acute laryngopharyngitis[ICD10: J06.0] Diagnosis: Other allergic rhinitis[ICD10: J30.89] Sapphire Hollis MD, [facility] CPT-4: 30155 10/06/2017 [id number] EST. PATIENT, LEVEL III Diagnosis: Pain in left shoulder[ICD10: M25.512] Sapphire Hollis MD, [facility] CPT-4: 86696 07/24/2017 ([id number]) 76279 EST. 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] Leora Hollis MD, [facility] CPT-4: 30936 04/28/2017 ([id number]) Miscellaneous no charge Diagnosis: Impacted cerumen, bilateral[ICD10: H61.23] Leora Hollis MD, [facility] CPT-4: 79901 03/17/2017 ([id number]) OFFICE VISIT, NEW - LEVEL 4 Diagnosis: Mixed hyperlipidemia[ICD10: E78.2] Diagnosis: Chronic pain syndrome[ICD10: G89.4] Diagnosis: Presbycusis, bilateral[ICD10: H91.13] Diagnosis: Impacted cerumen, bilateral[ICD10: H61.23] Diagnosis: Atherosclerotic heart disease of [place] coronary artery without angina pectoris[ICD10: I25.10] Diagnosis: Personal history of other diseases of the circulatory system[ICD10: Z86.79] Leora Hollis MD, [facility] CPT-4: 44491 2017 Plan of Care Planned Activity Notes [...] in the nasal steroid allergy spray. 01/07/2018 Patient Education: Patient Medication Summary Completed 01/07/2018 Patient Education: Patient Medication Summary Completed 01/07/2018 Care Plan: Influenza A+B Pending 01/07/2018 Appointment: Injection 01/05/2018 Patient Education: Patient Medication Summary Completed 01/05/2018 Visit Plan: Cervical and lumbar stenosis -refer for PT to evaluate and treat -follow up with DR Steward as scheduled -refill hydrocodone for prn use only -discussed with patient that he is to use it for breakthrough pain only -patient verbalized understanding of plan. 12/22/2017 Appointment: Elise Castillo WPtel: [phone] [phone] (15 min) Moderate 12/22/2017 Patient Education: Patient Medication Summary Completed 12/22/2017 Visit Plan: Neck and low back pain -will schedule MRI lumbar and cervical spine for further evaluation and proceed as indicated- patient verbalized understanding of plan. 12/15/2017 [phone] [phone] ([facility] min) Moderate 12/15/2017 Patient Education: Patient Medication Summary Completed 12/15/2017 Patient Education: Back Pain Completed 12/15/2017 Care Plan: MRI LUMBAR SPINE W/O DYE LOINC : 26740-0 Pending 12/15/2017 Care Plan: MRI NECK SPINE W/O DYE LOINC : 39412-9 Pending 12/15/2017 Appointment: Injection 12/04/2017 Patient Education: [...] health care surrogate. 11/27/2017 Appointment: [facility]apphire Oneill[facility] [phone] [facility] [facility] - Annual Wellness Visit 11/27/2017 [...] trouble getting to sleep 11/17/2017 [phone] [facility] (15 min) Moderate 11/17/2017 Patient Education: Patient [...] spray. 10/06/2017 Appointment: [facility]el[facility] [phone] [facility] (15 min) Moderate 10/06/2017 Appointment: Sapphire Oneil WPtel: [facility] (15 min) Moderate 10/06/2017 Patient Education: [...] plan. 07/24/2017 Appointment: Sapphire Oneil [facility]Ptel[facility] [phone] [facility] [place] (30 min) Complex 07/24/2017 Patient [...] medications. 07/14/2017 Appointment: [facility]el[facility] [phone] [facility] (15 min) Moderate 07/14/2017 Patient Education: Patient Medication Summary Completed 07/14/2017 Appointment: Le[facility] Hollis WPtel[facility] [phone] [facility] [place] (15 min) Moderate 07/10/2017 Appointment: Injection 06/26/2017 [...] night 06/09/2017 Appointment: [facility] Holl[facility]Ptel[facility] [phone] [facility] [place] (30 min) Complex 06/09/2017 Patient Education: [...] of 15 04/28/2017 Appointment: Leora Hollis WPtel: [facility]5 [facility] (30 min) Complex 04/28/2017 Patient Education: [...] wax removal 03/14/2017 Appointment: Le[facility] Hollis WPtel[facility] [phone] [facility] New Patient 03/14/2017 Patient Education: Patient Medication [...] allergy spray. REFER FOR PHYSICAL THERAPY AT [facility] -HE HAS A PT HE HAS [...]
--- OUTSIDE RECORDS SUMMARY | 2018-06-12 09:51 | XMS REPORT | CCD ---
Author Author [facility] Organization [facility] Address [address] [place] [address] Phone Care Team Providers Care Speech Pathology Teacher Name Role Phone PP Unavailable CCM Unavailable Summary Purpose Interface Exchange Insurance Providers Payer name Policy type / Coverage type Covered green party ID Effective Begin Date Effective End Date WPS Medicare Part B Medicare Part B [id number] 2017 Unknown [facility] Medicare Part B [id number] 2017 Unknown Family history Father Diagnosis Age At Onset Heart Attack Unknown Social History Social History Element Codes Description Effective Dates Marital status Unknown 03/14/2017 Number of children Unknown 2 03/14/[address]: 1172474 Former smoker Quit 11/03/00; smoke 1/2 pack/day x15 years 03/14/[address]: 730173867 Never drinks alcohol 03/14/2017 Allergies, Adverse Reactions, [...] Active 03/14/2017 Unknown 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 [...] H61.23 03/14/2017 Active 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 ICD-10: I25.10 03/14/2017 Active Chronic pain syndrome ICD-9: 338.4 ICD-10: G89.4 03/14/2017 Active Personal history of other diseases of the circulatory system ICD-9: V12.59 ICD-10: Z86.79 03/14/2017 Active Presbycusis, 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 03/14/2017 Active Medications Medication Codes Instructions Start Date Stop Date Status Fill Instructions Zithromax Z-Timothy 250 mg tablet RxNorm: 217661 1 Tablet(s) PO UD 01/07/2018 No Stop Date Active Kenalog 40 mg/mL suspension for injection RxNorm: 7856052 Milliliter(s) Inj 01/07/2018 01/07/2018 Inactive ceftriaxone 500 mg solution for injection RxNorm: 9213746 Inj 01/07/2018 01/07/2018 Inactive testosterone cypionate 200 mg/mL intramuscular oil RxNorm: 445165 1/2 Milliliter(s ) IM 01/05/2018 01/05/2018 Inactive hydrocodone 5 mg-acetaminophen 325 mg tablet RxNorm: 736218 1-2 Tablet(s) PO Q6 PRN 12/22/2017 02/19/2018 Active zolpidem 5 mg tablet RxNorm: 964598 1 Tablet(s) PO 30 min before QHS 12/15/2017 02/12/2018 Active testosterone cypionate 200 mg/mL intramuscular oil RxNorm: 325053 Milliliter(s) IM 12/15/2017 12/15/2017 Inactive testosterone cypionate 200 mg/mL intramuscular oil RxNorm: 976677 1/2 Milliliter(s ) IM 12/04/2017 12/04/2017 Inactive testosterone cypionate 200 mg/mL intramuscular oil RxNorm: 399309 1/2 Milliliter(s ) IM 11/17/2017 11/17/2017 Inactive potassium chloride ER 10 mEq capsule,extended release RxNorm: 773027 TAKE ONE CAPSULE BY MOUTH DAILY 11/11/20172018 Active testosterone cypionate 200 mg/mL intramuscular oil RxNorm: 501017 Milliliter(s) IM 10/22/2017 10/22/2017 Inactive zolpidem 5 mg tablet RxNorm: 749049 1 Tablet(s) PO 30 min before QHS 10/15/2017 10/14/2017 Inactive zolpidem 5 mg tablet RxNorm: 408895 1 Tablet(s) PO 30 min before QHS 10/15/2017 12/13/2017 Inactive Zithromax Z-Timothy 250 mg tablet RxNorm: 173553 1 Tablet(s) PO UD 10/07/2017 11/16/2017 Inactive testosterone cypionate 200 mg/mL intramuscular oil RxNorm: 292001 Milliliter(s) IM 10/06/2017 10/06/2017 Inactive Kenalog 40 mg/mL suspension for injection RxNorm: 3639231 Milliliter(s) Inj 10/06/2017 10/06/2017 Inactive Zithromax Z-Timothy 250 mg tablet RxNorm: 739718 1 Tablet(s) PO UD 10/06/2017 10/06/2017 Inactive testosterone cypionate 200 mg/mL intramuscular oil RxNorm: 770340 Milliliter(s) IM 09/23/2017 09/23/2017 Inactive testosterone cypionate 200 mg/mL intramuscular kit RxNorm: 724022 1/2 Milliliter(s ) IM [id number] 08/28/2017 02/23/2018 Active meloxicam 15 mg tablet RxNorm: 406828 TAKE ONE TABLET BY MOUTH DAILY 08/28/2017 05/24/2018 Active testosterone cypionate 200 mg/mL intramuscular oil RxNorm: 332036 Milliliter(s) IM 08/28/2017 08/28/2017 Inactive testosterone cypionate 200 mg/mL intramuscular oil RxNorm: 088478 1/2 Milliliter(s ) IM 08/12/2017 08/12/2017 Inactive meloxicam 15 mg tablet RxNorm: 399248 1 Tablet(s) PO daily 08/201708/27/2017 Inactive atorvastatin 40 mg tablet RxNorm: 782072 TAKE ONE TABLET BY MOUTH DAILY 07/30/2017 02/24/2018 Active furosemide 40 mg tablet RxNorm: 668051 TAKE ONE TABLET BY MOUTH DAILY 07/30/2017 02/24/2018 Active testosterone cypionate 200 mg/mL intramuscular oil RxNorm: 164451 1/2 Milliliter(s ) IM 07/28/2017 07/28/2017 Inactive testosterone cypionate 200 mg/mL intramuscular oil RxNorm: 788179 1/2 Milliliter(s ) IM 07/14/2017 07/14/2017 Inactive testosterone cypionate 200 mg/mL intramuscular oil RxNorm: 170785 1/2 Milliliter(s ) IM 06/26/2017 06/26/2017 Inactive hydrocodone 5 mg-acetaminophen 325 mg tablet RxNorm: 119655 1 Tablet(s) PO QHS and 1 tab PO daily PRN pain 06/09/2017 Inactive hydrocodone 5 mg-acetaminophen 325 mg tablet RxNorm: 887185 1 Tablet(s) PO daily 06/09/2017 06/18/2017 Inactive testosterone cypionate 200 mg/mL intramuscular oil RxNorm: 722131 1/2 Milliliter(s ) IM 06/09/2017 06/09/2017 Inactive testosterone cypionate 200 mg/mL intramuscular oil RxNorm: 099952 Milliliter(s) IM 05/27/2017 05/27/2017 Inactive testosterone cypionate 200 mg/mL intramuscular oil RxNorm: 879681 Milliliter(s) IM 05/13/2017 05/13/2017 Inactive potassium chloride ER 10 mEq capsule,extended release RxNorm: 736942 1 Capsule(s) PO daily 05/07/2017 11/02/2017 Inactive Vitamin D2 50,000 unit capsule RxNorm: 799605 1 Capsule(s) PO QW 05/06/2017 05/05/2017 Inactive take with OTC vitamin d 2,000 units QD testosterone cypionate 200 mg/mL intramuscular kit RxNorm: 418232 1/2 kit IM 2 x month 05/06/2017 08/27/2017 Inactive Vitamin D2 50,000 unit capsule RxNorm: 184638 1 Capsule(s) PO QW 05/06/2017 08/03/2017 Inactive take with OTC vitamin d 2,000 units QD testosterone cypionate 200 mg/mL intramuscular oil RxNorm: 539911 1/2 Milliliter(s ) IM 04/29/2017 04/29/2017 Inactive fluorouracil 5 % topical cream RxNorm: 427694 1 Application TOP BID 04/28/2017 05/07/2017 Inactive testosterone cypionate 200 mg/mL intramuscular kit RxNorm: 694206 1/2 IM 2 x month 04/28/2017 05/05/2017 Inactive Pamelor 10 mg capsule RxNorm: 166246 1 Capsule(s) PO daily No Start Date Active gabapentin 300 mg capsule RxNorm: 583562 6 Capsule(s) PO daily No Start Date Active cyclobenzaprine 5 mg tablet RxNorm: 886616 1 Tablet(s) PO as needed No Start Date Active diclofenac 1 % topical gel RxNorm: 096898 1 Gram(s) TOP as needed No Start Date Active clopidogrel 75 mg tablet RxNorm: 378527 1 Tablet(s) PO daily No Start Date Active meloxicam 15 mg tablet RxNorm: 493526 1 Tablet(s) PO daily No Start Date 07/30/2017 Inactive potassium chloride ER 10 mEq tablet,extended release RxNorm: 774429 1 Tablet(s) PO daily No Start Date 05/06/2017 Inactive hydrocodone 5 mg-acetaminophen 325 mg tablet RxNorm: 945847 1 Tablet(s) PO daily No Start Date 06/08/2017 Inactive furosemide 40 mg tablet RxNorm: 321998 1 Tablet(s) PO daily No Start Date 07/29/2017 Inactive atorvastatin 40 mg tablet RxNorm: 987741 1 Tablet(s) PO QHS No Start Date 07/29/2017 Inactive Medication Administered Medication Codes Instructions Start Date Status Kenalog 40 mg/mL suspension for injection RxNorm: 0477208 Milliliter 01/07/2018 Active ceftriaxone 500 mg solution for injection RxNorm: 9657888 01/07/2018 Active testosterone cypionate 200 mg/mL intramuscular oil RxNorm: 044241 /2Milliliter 01/05/2018 No longer Active testosterone cypionate 200 mg/mL intramuscular oil RxNorm: 085990 Milliliter 12/15/2017 No longer Active testosterone cypionate 200 mg/mL intramuscular oil RxNorm: 800027 /2Milliliter 12/04/2017 No longer Active testosterone cypionate 200 mg/mL intramuscular oil RxNorm: 138992 /2Milliliter 11/17/2017 No longer Active testosterone cypionate 200 mg/mL intramuscular oil RxNorm: 371600 Milliliter 10/22/2017 No longer Active Kenalog 40 mg/mL suspension for injection RxNorm: 4552669 Milliliter 10/06/2017 No longer Active testosterone cypionate 200 mg/mL intramuscular oil RxNorm: 971059 Milliliter 10/06/2017 No longer Active testosterone cypionate 200 mg/mL intramuscular oil RxNorm: 306213 Milliliter 09/23/2017 No longer Active testosterone cypionate 200 mg/mL intramuscular oil RxNorm: 391128 Milliliter 08/28/2017 No longer Active testosterone cypionate 200 mg/mL intramuscular oil RxNorm: 539604 1/2Milliliter 08/12/2017 No longer Active testosterone cypionate 200 mg/mL intramuscular oil RxNorm: 305731 /2Milliliter 07/28/2017 No longer Active testosterone cypionate 200 mg/mL intramuscular oil RxNorm: 373245 2Milliliter 07/14/2017 No longer Active testosterone cypionate 200 mg/mL intramuscular oil RxNorm: 300891 /2Milliliter 06/26/2017 No longer Active testosterone cypionate 200 mg/mL intramuscular oil RxNorm: 714203 /2Milliliter 06/09/2017 No longer Active testosterone cypionate 200 mg/mL intramuscular oil RxNorm: 512603 Milliliter 05/27/2017 No longer Active testosterone cypionate 200 mg/mL intramuscular oil RxNorm: 069874 Milliliter 05/13/2017 No longer Active testosterone cypionate 200 mg/mL intramuscular oil RxNorm: 052069 2Milliliter 04/29/2017 No longer Active Immunizations Vaccine [...] ICD-9: 380.4 03/17/2017 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 [...] Observation Code Item Item Code Result Date Hepatic Jwg793 ALBUMIN 3.7 g/dL 08/06/2017 Hepatic Wqn327 TPRO 5.9 g/dL 08/06/2017 Hepatic Dqi802 GLOB 2.2 g/dL 08/06/2017 Hepatic Tjw808 A/G Ratio 1.7 Ratio 08/06/2017 Hepatic Gec949 ALK PHOS 46 U/L 08/06/2017 Hepatic Pwk295 ALT(SGPT) 9 U/L 08/06/2017 Hepatic Kae730 AST(SGOT) 13 U/L 08/06/2017 Hepatic Iad676 BILI T 0.6 mg/dL 08/06/2017 Hepatic Kkw249 BILI D 0.2 mg/dL 08/06/2017 Hepatic Hno048 BILI I 0.4 mg/dL 08/06/2017 Testosterone Exj671 Testo 474.5 ng/dL 08/06/2017 Cbc With Differential [...] 25.2 % 08/06/2017 Cbc With Differential Ord2 [place]% 11.2 % 08/06/2017 Cbc With Differential Ord2 [...] 1.33 K/ul 08/06/2017 Cbc With Differential Ord2 [place] ABS# 0.6 K/ul 08/06/2017 Cbc With Differential Ord2 Eos ABS# 0.3 K/ul 08/06/2017 Cbc With Differential Ord2 Baso ABS# 0.1 K/ul 08/06/2017 Comp Metabolic Jmu415 NA 140 mEq/L 06/02/2017 Comp Metabolic Yev809 K 3.8 mEq/L 06/02/2017 Comp Metabolic Mzi273 CL 102 mEq/L 06/02/2017 Comp Metabolic Oec405 CO2 30.0 mEq/L 06/02/2017 Comp Metabolic Qxr690 ANION GAP 12 06/02/2017 Comp Metabolic Eeo233 GLUCOSE 100 mg/dL 06/02/2017 Comp Metabolic Hkk392 Creat 1.1 mg/dL 06/02/2017 Comp Metabolic Ghd074 eGFR 69 ml/min/1.73m2 06/02/2017 Comp Metabolic Bvg511 BUN 15 mg/dL 06/02/2017 Comp Metabolic Igm732 B/C Ratio 13.4 Ratio 06/02/2017 Comp Metabolic Gwo143 CALCIUM 8.6 mg/dL 06/02/2017 Comp Metabolic Yuo779 ALK PHOS 63 U/L 06/02/2017 Comp Metabolic Qxo547 AST(SGOT) 17 U/L 06/02/2017 Comp Metabolic Cbp932 ALT(SGPT) 12 U/L 06/02/2017 Comp Metabolic Wmq803 BILI T 0.5 mg/dL 06/02/2017 Comp Metabolic Sne801 ALBUMIN 3.9 g/dL 06/02/2017 Comp Metabolic Qhv157 TPRO 6.1 g/dL 06/02/2017 Comp Metabolic Clf373 GLOB 2.2 g/dL 06/02/2017 Comp Metabolic Xvw327 A/G Ratio 1.8 Ratio 06/02/2017 Comp Metabolic Vow636 Osmo 280 mOsmo 06/02/2017 Vitamin D 25 Oh Iec7053 VITAMIN D, 25 HYDROXY 40.03 ng/mL Cbc [...] 29.7 pg 06/02/2017 Cbc With Differential Ord2 [place]% 10.5 % 06/02/2017 Cbc With Differential Ord2 [...] 1.52 K/ul 06/02/2017 Cbc With Differential Ord2 [place] ABS# 0.6 K/ul 06/02/2017 Cbc With Differential Ord2 Eos ABS# 0.2 K/ul 06/02/2017 Cbc With Differential Ord2 Baso ABS# 0.1 K/ul 06/02/2017 Testosterone Uqg994 Testo 198.4 ng/dL 04/29/2017 Vitamin D 25 Oh Ukj1253 VITAMIN D, 25 HYDROXY 29.25 ng/mL Lipid [...] Procedure Codes Date THER/PROPH/DIAG INJ SC/IM CPT-4: 61845 01/07/2018 TRIAMCINOLONE ACET INJ NOS CPT-4: J3301 01/07/2018 ROCEPHIN, PER 250 MG CPT-4: J0696 01/07/2018 THER/PROPH/DIAG INJ SC/IM CPT-4: 06990 01/05/2018 THER/PROPH/DIAG INJ SC/IM CPT-4: 03055 12/15/2017 THER/PROPH/DIAG INJ SC/IM CPT-4: 33283 12/04/2017 PPPS, SUBSEQ VISIT CPT -4: G0439 11/27/2017 ADMIN INFLUENZA VIRUS VAC CPT-4: G0008 11/17/2017 FLU VAC NO PRSV 4 FATOU 3 YRS+ CPT-4: 54434 11/17/2017 THER/PROPH/DIAG INJ SC/IM CPT-4: 54291 11/17/2017 THER/PROPH/DIAG INJ SC/IM CPT-4: 53245 10/22/2017 THER/PROPH/DIAG INJ SC/IM CPT-4: 65002 10/06/2017 TRIAMCINOLONE ACET INJ NOS CPT-4: J3301 10/06/2017 THER/PROPH/DIAG INJ SC/IM CPT-4: 57944 09/23/2017 THER/PROPH/DIAG INJ SC/IM CPT-4: 24420 08/28/2017 THER/PROPH/DIAG INJ SC/IM CPT-4: 27068 08/12/2017 THER/PROPH/DIAG INJ SC/IM CPT-4: 40806 07/28/2017 THER/PROPH/DIAG INJ SC/IM CPT-4: 80997 07/14/2017 THER/PROPH/DIAG INJ SC/IM CPT-4: 81088 06/26/2017 THER/PROPH/DIAG INJ SC/IM CPT-4: 66490 06/09/2017 THER/PROPH/DIAG INJ SC/IM CPT-4: 02566 05/27/2017 THER/PROPH/DIAG INJ SC/IM CPT-4: 91401 05/13/2017 THER/PROPH/DIAG INJ SC/IM CPT-4: 27017 04/29/2017 Vital Signs Date Vital 01/07/2018 Blood Pressure 1: 126/66 Code : 8480-6 BMI: 30.1 Code : 82382-2 Heart Rate 1 : 75 bpm Height: 5'10" SpO2: 97% Temperature: 36.5 (C) / 97.7 (F) Weight: 210 lbs 12/22/2017 Blood Pressure 1: 124/70 Code : 8480-6 BMI: 29.7 Code : 00026-2 Heart Rate 1 : 84 bpm Height: 5'10" SpO2: 94% Weight: 207 lbs 12/15/2017 Blood Pressure 1: 122/82 Code : 8480-6 BMI: 30.0 Code : 25529-0 Heart Rate 1 : 82 bpm Height: 5'10" SpO2: 93% Weight: 209 lbs 11/27/2017 Blood Pressure 1: 132/68 Code : 8480-6 BMI: 29.3 Code : 87416-1 Heart Rate 1 : 71 bpm Height: 5'10" SpO2: 97% Waist Measure (cm): 97 cm Weight: 204 lbs 11/17/2017 Blood Pressure 1: 130/80 Code : 8480-6 BMI: 29.3 Code : 54624-2 Heart Rate 1 : 73 bpm Height: 5'10" SpO2: 99% Weight: 204 lbs 10/06/2017 Blood Pressure 1: 124/60 Code : 8480-6 BMI: 28.8 Code : 54981-0 Heart Rate 1 : 70 bpm Height: 5'10" SpO2: 98% Weight: 201 lbs 07/24/2017 Blood Pressure 1: 118/70 Code : 8480-6 BMI: 29.3 Code : 49208-3 Heart Rate 1 : 82 bpm Height: 5'10" SpO2: 96% Weight: 204 lbs 07/14/2017 Blood Pressure 1: 118/72 Code : 8480-6 BMI: 29.1 Code : 83801-1 Heart Rate 1 : 83 bpm Height: 5'10" SpO2: 98% Weight: 203 lbs 06/09/2017 Blood Pressure 1: 120/74 Code : 8480-6 BMI: 29.3 Code : 23303-3 Heart Rate 1 : 91 bpm Height: 5'10" SpO2: 99% Weight: 204 lbs 04/28/2017 Blood Pressure 1: 118/68 Code : 8480-6 BMI: 28.8 Code : 34497-3 Heart Rate 1 : 74 bpm Height: 5'10" SpO2: 96% Weight: 201 lbs 03/14/2017 Blood Pressure 1: 114/74 Code : 8480-6 BMI: 28.6 Code : 40687-0 Heart Rate 1 : 77 bpm Height: [...] Other allergic rhinitis[ICD10: J30.89] Sapphire Hollis MD, [facility] CPT-4: 84153 01/07/2018 ([id number]) 53826 EST. PATIENT, LEVEL III Diagnosis: Spinal stenosis, lumbosacral region[ICD10: M48.07] Diagnosis: Spinal stenosis, cervical region[ICD10: M48.02] Elise Hollis MD, [facility] CPT-4: 14861 12/22/2017 ([id number]) 31476 EST. 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 PATIENT, LEVEL III Diagnosis: Mixed hyperlipidemia[ICD10: E78.2] Diagnosis: Other insomnia[ICD10: G47.09] Leora Hollis MD, [facility] CPT- 4: 23379 11/17/2017 [id number] EST. PATIENT, LEVEL III Diagnosis: Acute laryngopharyngitis[ICD10: J06.0] Diagnosis: Other allergic rhinitis[ICD10: J30.89] Sapphire Hollis MD, [facility] CPT-4: 63179 10/06/2017 [id number] EST. PATIENT, LEVEL III Diagnosis: Pain in left shoulder[ICD10: M25.512] Sapphire Hollis MD, [facility] CPT-4: 36043 07/24/2017 ([id number]) 42045 EST. 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] ANN Xie MD CPT-4: 08912 04/28/2017 ([id number]) Miscellaneous no charge Diagnosis: Impacted cerumen, bilateral[ICD10: H61.23] Leora Hollis MD, [facility] CPT-4: 81288 03/17/2017 ([id number]) OFFICE VISIT, NEW - LEVEL 4 Diagnosis: Mixed hyperlipidemia[ICD10: E78.2] Diagnosis: Chronic pain syndrome[ICD10: G89.4] Diagnosis: Presbycusis, bilateral[ICD10: H91.13] Diagnosis: Impacted cerumen, bilateral[ICD10: H61.23] Diagnosis: Atherosclerotic heart disease of [place] coronary artery without angina pectoris[ICD10: I25.10] Diagnosis: Personal history of other diseases of the circulatory system[ICD10: Z86.79] Leora Hollis MD, [facility] CPT-4: 13722 2017 Plan of Care Planned Activity Notes [...] Patient Medication Summary Completed 01/07/2018 Care Plan: C A/B FLU Pending 01/07/2018 Appointment: Injection 01/05/2018 Patient Education: Patient Medication Summary Completed 01/05/2018 Visit Plan: Cervical and lumbar stenosis -refer for PT to evaluate and treat -follow up with DR Steward as scheduled -refill hydrocodone for prn use only -discussed with patient that he is to use it for breakthrough pain only -patient verbalized understanding of plan. 12/22/2017 Appointment: Elise Castillo WPtel: [address] [place], [place] [id number] [place] [address] (15 min) Moderate 12/22/2017 Patient Education: Patient Medication Summary Completed 12/22/2017 Visit Plan: Neck and low back pain -will schedule MRI lumbar and cervical spine for further evaluation and proceed as indicated- patient verbalized understanding of plan. 12/15/2017 Appointment: Elise Castillo [facility]el: [facility] [phone] (15 min) Moderate 12/15/2017 Patient Education: Patient Medication Summary Completed 12/15/2017 Patient Education: Back Pain Completed 12/15/2017 Care Plan: MRI LUMBAR SPINE W/O DYE LOINC : 81015-4 Pending 12/15/2017 Care Plan: MRI NECK SPINE W/O DYE LOINC : 35379-8 Pending 12/15/2017 Appointment: Injection 12/04/2017 Patient Education: [...] surrogate. 11/27/2017 Appointment: Sapphire Oneil WPtel: [phone] [facility] [facility] - Annual Wellness Visit 11/27/2017 Patient [...] sleep 11/17/2017 Appointment: Leora Hollis WPtel: [phone] [facility] (15 min) Moderate 11/17/2017 Patient Education: [...] spray. 10/06/2017 Appointment: [facility] Holl[phone] [facility] [place] [place] (15 min) Moderate 10/06/2017 Appointment: Sapphire Oneil WPtel: [phone] [facility] [place] (15 min) Moderate 10/06/2017 Patient Education: [...] treatment plan. 07/24/2017 Appointment: Sapphire Oneil WPtel: [facility] [place] (30 min) Complex 07/24/2017 Patient Education: [...] to medications. 07/14/2017 Appointment: Leora Hollis WPtel: [phone] [facility] [place] [place] (15 min) Moderate 07/14/2017 Patient Education: Patient Medication Summary Completed 07/14/2017 Appointment: Leora Hollis WPtel: [phone] [facility] [place] (15 min) Moderate 07/10/2017 Appointment: Injection 06/26/2017 [...] night 06/09/2017 Appointment: Leora Hollis WPtel: [phone] [facility] [place] (30 min) Complex 06/09/2017 Patient Education: Patient [...] 15 04/28/2017 Appointment: Leora Hollis WPtel: [phone] [facility] (30 min) Complex 04/28/2017 Patient Education: Patient [...] wax removal 03/14/2017 Appointment: Leora Hollis WPtel[facility] [phone] [facility] New Patient 03/14/2017 Patient Education: Patient Medication [...] allergy spray. REFER FOR PHYSICAL THERAPY AT [facility] -HE HAS A PT HE HAS SEEN [...]
--- OUTSIDE RECORDS SUMMARY | 2018-06-12 09:52 | XMS REPORT | CCD ---
Author Author [facility] Organization [facility] Address [address] [place] [address] Phone Care Team Providers Care Marine Architect Name Role Phone PP Unavailable CCM Unavailable Summary Purpose Interface Exchange Insurance Providers Payer name Policy type / Coverage type Covered constitution party ID Effective Begin Date Effective End Date WPS Medicare Part B Medicare Part B [id number] 2017 Unknown [facility] Medicare Part B [id number] 2017 Unknown Family history Father Diagnosis Age At Onset Heart Attack Unknown Social History Social History Element Codes Description Effective Dates Marital status Unknown 03/14/2017 Number of children Unknown 2 03/14/[address]: 6606498 Former smoker Quit 11/03/00; smoke 1/2 pack/day x15 years 03/14/[address]: 837896096 Never drinks alcohol 03/14/2017 Allergies, Adverse Reactions, [...] ICD-9: 327.09 ICD-10: G47.09 Active 11/17/2017 Unknown Acute laryngopharyngitis ICD-9: 465.0 ICD-10: J06.0 Active 10/06/2017 Unknown Other allergic rhinitis ICD-9: 477.8 ICD-10: J30.89 Active 10/06/2017 Unknown Pain in left shoulder ICD-9: 719.41 [...] insomnia ICD-9: 327.09 ICD-10: G47.09 11/17/2017 Active Acute laryngopharyngitis ICD-9: 465.0 ICD-10: J06.0 10/06/2017 Active Other allergic rhinitis ICD-9: 477.8 ICD-10: J30.89 10/06/2017 Active Pain in left shoulder ICD-9: 719.41 [...] testosterone cypionate 200 mg/mL intramuscular oil RxNorm: 405943 1/2 Milliliter(s ) IM 01/05/2018 01/05/2018 Inactive hydrocodone 5 mg-acetaminophen 325 mg tablet RxNorm: 342107 1-2 Tablet(s) PO Q6 PRN 12/22/2017 02/19/2018 Active zolpidem 5 mg tablet RxNorm: 884752 1 Tablet(s) PO 30 min before QHS 12/15/2017 02/12/2018 Active testosterone cypionate 200 mg/mL intramuscular oil RxNorm: 019636 Milliliter(s) IM 12/15/2017 12/15/2017 Inactive testosterone cypionate 200 mg/mL intramuscular oil RxNorm: 594014 1/2 Milliliter(s ) IM 12/04/2017 12/04/2017 Inactive testosterone cypionate 200 mg/mL intramuscular oil RxNorm: 779157 1/2 Milliliter(s ) IM 11/17/2017 11/17/2017 Inactive potassium chloride ER 10 mEq capsule,extended release RxNorm: 049049 TAKE ONE CAPSULE BY MOUTH DAILY 11/11/20172018 Active testosterone cypionate 200 mg/mL intramuscular oil RxNorm: 491280 Milliliter(s) IM 10/22/2017 10/22/2017 Inactive zolpidem 5 mg tablet RxNorm: 391326 1 Tablet(s) PO 30 min before QHS 10/15/2017 10/14/2017 Inactive zolpidem 5 mg tablet RxNorm: 002455 1 Tablet(s) PO 30 min before QHS 10/15/2017 12/13/2017 Inactive Zithromax Z-Timothy 250 mg tablet RxNorm: 082056 1 Tablet(s) PO UD 10/07/2017 11/16/2017 Inactive testosterone cypionate 200 mg/mL intramuscular oil RxNorm: 847529 Milliliter(s) IM 10/06/2017 10/06/2017 Inactive Kenalog 40 mg/mL suspension for injection RxNorm: 5990091 Milliliter(s) Inj 10/06/2017 10/06/2017 Inactive Zithromax Z-Timothy 250 mg tablet RxNorm: 306957 1 Tablet(s) PO UD 10/06/2017 10/06/2017 Inactive testosterone cypionate 200 mg/mL intramuscular oil RxNorm: 132631 Milliliter(s) IM 09/23/2017 09/23/2017 Inactive testosterone cypionate 200 mg/mL intramuscular kit RxNorm: 825722 1/2 Milliliter(s ) IM [id number] 08/28/2017 02/23/2018 Active meloxicam 15 mg tablet RxNorm: 749548 TAKE ONE TABLET BY MOUTH DAILY 08/28/2017 05/24/2018 Active testosterone cypionate 200 mg/mL intramuscular oil RxNorm: 704668 Milliliter(s) IM 08/28/2017 08/28/2017 Inactive testosterone cypionate 200 mg/mL intramuscular oil RxNorm: 611428 1/2 Milliliter(s ) IM 08/12/2017 08/12/2017 Inactive meloxicam 15 mg tablet RxNorm: 226273 1 Tablet(s) PO daily 08/201708/27/2017 Inactive atorvastatin 40 mg tablet RxNorm: 047360 TAKE ONE TABLET BY MOUTH DAILY 07/30/2017 02/24/2018 Active furosemide 40 mg tablet RxNorm: 118109 TAKE ONE TABLET BY MOUTH DAILY 07/30/2017 02/24/2018 Active testosterone cypionate 200 mg/mL intramuscular oil RxNorm: 049115 1/2 Milliliter(s ) IM 07/28/2017 07/28/2017 Inactive testosterone cypionate 200 mg/mL intramuscular oil RxNorm: 276163 1/2 Milliliter(s ) IM 07/14/2017 07/14/2017 Inactive testosterone cypionate 200 mg/mL intramuscular oil RxNorm: 369018 1/2 Milliliter(s ) IM 06/26/2017 06/26/2017 Inactive hydrocodone 5 mg-acetaminophen 325 mg tablet RxNorm: 361264 1 Tablet(s) PO QHS and 1 tab PO daily PRN pain 06/09/2017 Inactive hydrocodone 5 mg-acetaminophen 325 mg tablet RxNorm: 583692 1 Tablet(s) PO daily 06/09/2017 06/18/2017 Inactive testosterone cypionate 200 mg/mL intramuscular oil RxNorm: 104814 1/2 Milliliter(s ) IM 06/09/2017 06/09/2017 Inactive testosterone cypionate 200 mg/mL intramuscular oil RxNorm: 457962 Milliliter(s) IM 05/27/2017 05/27/2017 Inactive testosterone cypionate 200 mg/mL intramuscular oil RxNorm: 527893 Milliliter(s) IM 05/13/2017 05/13/2017 Inactive potassium chloride ER 10 mEq capsule,extended release RxNorm: 868752 1 Capsule(s) PO daily 05/07/2017 11/02/2017 Inactive Vitamin D2 50,000 unit capsule RxNorm: 680449 1 Capsule(s) PO QW 05/06/2017 05/05/2017 Inactive take with OTC vitamin d 2,000 units QD testosterone cypionate 200 mg/mL intramuscular kit RxNorm: 185033 1/2 kit IM 2 x month 05/06/2017 08/27/2017 Inactive Vitamin D2 50,000 unit capsule RxNorm: 342985 1 Capsule(s) PO QW 05/06/2017 08/03/2017 Inactive take with OTC vitamin d 2,000 units QD testosterone cypionate 200 mg/mL intramuscular oil RxNorm: 001190 1/2 Milliliter(s ) IM 04/29/2017 04/29/2017 Inactive fluorouracil 5 % topical cream RxNorm: 759714 1 Application TOP BID 04/28/2017 05/07/2017 Inactive testosterone cypionate 200 mg/mL intramuscular kit RxNorm: 246429 1/2 IM 2 x month 04/28/2017 05/05/2017 Inactive Pamelor 10 mg capsule RxNorm: 680521 1 Capsule(s) PO daily No Start Date Active gabapentin 300 mg capsule RxNorm: 486391 6 Capsule(s) PO daily No Start Date Active cyclobenzaprine 5 mg tablet RxNorm: 547149 1 Tablet(s) PO as needed No Start Date Active diclofenac 1 % topical gel RxNorm: 384324 1 Gram(s) TOP as needed No Start Date Active clopidogrel 75 mg tablet RxNorm: 311013 1 Tablet(s) PO daily No Start Date Active meloxicam 15 mg tablet RxNorm: 970359 1 Tablet(s) PO daily No Start Date 07/30/2017 Inactive potassium chloride ER 10 mEq tablet,extended release RxNorm: 397850 1 Tablet(s) PO daily No Start Date 05/06/2017 Inactive hydrocodone 5 mg-acetaminophen 325 mg tablet RxNorm: 676796 1 Tablet(s) PO daily No Start Date 06/08/2017 Inactive furosemide 40 mg tablet RxNorm: 354232 1 Tablet(s) PO daily No Start Date 07/29/2017 Inactive atorvastatin 40 mg tablet RxNorm: 274023 1 Tablet(s) PO QHS No Start Date 07/29/2017 Inactive Medication Administered Medication Codes Instructions Start Date Status testosterone cypionate 200 mg/mL intramuscular oil RxNorm: 912365 /2Milliliter 01/05/2018 Active testosterone cypionate 200 mg/mL intramuscular oil RxNorm: 492303 Milliliter 12/15/2017 No longer Active testosterone cypionate 200 mg/mL intramuscular oil RxNorm: 202973 2Milliliter 12/04/2017 No longer Active testosterone cypionate 200 mg/mL intramuscular oil RxNorm: 904833 /2Milliliter 11/17/2017 No longer Active testosterone cypionate 200 mg/mL intramuscular oil RxNorm: 982923 Milliliter 10/22/2017 No longer Active testosterone cypionate 200 mg/mL intramuscular oil RxNorm: 261749 Milliliter 10/06/2017 No longer Active Kenalog 40 mg/mL suspension for injection RxNorm: 6181657 Milliliter 10/06/2017 No longer Active testosterone cypionate 200 mg/mL intramuscular oil RxNorm: 583151 Milliliter 09/23/2017 No longer Active testosterone cypionate 200 mg/mL intramuscular oil RxNorm: 702952 Milliliter 08/28/2017 No longer Active testosterone cypionate 200 mg/mL intramuscular oil RxNorm: 885589 /2Milliliter 08/12/2017 No longer Active testosterone cypionate 200 mg/mL intramuscular oil RxNorm: 916991 /2Milliliter 07/28/2017 No longer Active testosterone cypionate 200 mg/mL intramuscular oil RxNorm: 493637 /2Milliliter 07/14/2017 No longer Active testosterone cypionate 200 mg/mL intramuscular oil RxNorm: 313567 /2Milliliter 06/26/2017 No longer Active testosterone cypionate 200 mg/mL intramuscular oil RxNorm: 776833 /2Milliliter 06/09/2017 No longer Active testosterone cypionate 200 mg/mL intramuscular oil RxNorm: 998707 Milliliter 05/27/2017 No longer Active testosterone cypionate 200 mg/mL intramuscular oil RxNorm: 767842 Milliliter 05/13/2017 No longer Active testosterone cypionate 200 mg/mL intramuscular oil RxNorm: 390556 1/2Milliliter 04/29/2017 No longer Active Immunizations Vaccine Codes Date Status Influenza CVX: 141 11/17/2017 completed Assessments Condition Codes Effective Dates 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 ICD-9: 257.2 01/05/2018 [...] Other insomnia ICD-10: G47.09 ICD-9: 327.09 11/17/2017 Other allergic rhinitis ICD-10: J30.89 ICD-9: 477.8 10/06/2017 Acute laryngopharyngitis ICD-10: J06.0 ICD-9: 465.0 10/06/2017 Pain in left shoulder ICD-10: M25.512 ICD-9: [...] For Visit Effective Dates Notes back pain 12/22/2017 back pain 12/15/2017 Annual Medicare Wellness Exam 11/27/2017 shoulder pain 11/17/2017 sinus congestion 10/06/2017 shoulder pain 07/24/2017 abnormal test results 07/14/2017 fatigue 06/09/2017 fatigue 04/28/2017 hyperlipidemia 03/14/2017 R ear Results Observation Observation Code Item Item Code Result Date Hepatic Egl183 ALBUMIN 3.7 g/dL 08/06/2017 Hepatic Bdi004 TPRO 5.9 g/dL 08/06/2017 Hepatic Eup049 GLOB 2.2 g/dL 08/06/2017 Hepatic Wwd420 A/G Ratio 1.7 Ratio 08/06/2017 Hepatic Wnu331 ALK PHOS 46 U/L 08/06/2017 Hepatic Riq412 ALT(SGPT) 9 U/L 08/06/2017 Hepatic Oaj078 AST(SGOT) 13 U/L 08/06/2017 Hepatic Eog228 BILI T 0.6 mg/dL 08/06/2017 Hepatic Pui763 BILI D 0.2 mg/dL 08/06/2017 Hepatic Qfl565 BILI I 0.4 mg/dL 08/06/2017 Testosterone Oik145 Testo 474.5 ng/dL 08/06/2017 Cbc With Differential [...] 25.2 % 08/06/2017 Cbc With Differential Ord2 [place]% 11.2 % 08/06/2017 Cbc With Differential Ord2 [...] 1.33 K/ul 08/06/2017 Cbc With Differential Ord2 [place] ABS# 0.6 K/ul 08/06/2017 Cbc With Differential Ord2 Eos ABS# 0.3 K/ul 08/06/2017 Cbc With Differential Ord2 Baso ABS# 0.1 K/ul 08/06/2017 Comp Metabolic Psm884 NA 140 mEq/L 06/02/2017 Comp Metabolic Oix915 K 3.8 mEq/L 06/02/2017 Comp Metabolic Ptu153 CL 102 mEq/L 06/02/2017 Comp Metabolic Fek120 CO2 30.0 mEq/L 06/02/2017 Comp Metabolic Obr245 ANION GAP 12 06/02/2017 Comp Metabolic Qib520 GLUCOSE 100 mg/dL 06/02/2017 Comp Metabolic Pgf798 Creat 1.1 mg/dL 06/02/2017 Comp Metabolic Mah678 eGFR 69 ml/min/1.73m2 06/02/2017 Comp Metabolic Cee903 BUN 15 mg/dL 06/02/2017 Comp Metabolic Dfh464 B/C Ratio 13.4 Ratio 06/02/2017 Comp Metabolic Xzm815 CALCIUM 8.6 mg/dL 06/02/2017 Comp Metabolic Fhy572 ALK PHOS 63 U/L 06/02/2017 Comp Metabolic Umj952 AST(SGOT) 17 U/L 06/02/2017 Comp Metabolic Rln360 ALT(SGPT) 12 U/L 06/02/2017 Comp Metabolic Gvb371 BILI T 0.5 mg/dL 06/02/2017 Comp Metabolic Wyi309 ALBUMIN 3.9 g/dL 06/02/2017 Comp Metabolic Wat170 TPRO 6.1 g/dL 06/02/2017 Comp Metabolic Zvd641 GLOB 2.2 g/dL 06/02/2017 Comp Metabolic Hzi499 A/G Ratio 1.8 Ratio 06/02/2017 Comp Metabolic Trd925 Osmo 280 mOsmo 06/02/2017 Vitamin D 25 Oh Lzx1175 VITAMIN D, 25 HYDROXY 40.03 ng/mL Cbc [...] 29.7 pg 06/02/2017 Cbc With Differential Ord2 [place]% 10.5 % 06/02/2017 Cbc With Differential Ord2 [...] 1.52 K/ul 06/02/2017 Cbc With Differential Ord2 [place] ABS# 0.6 K/ul 06/02/2017 Cbc With Differential Ord2 Eos ABS# 0.2 K/ul 06/02/2017 Cbc With Differential Ord2 Baso ABS# 0.1 K/ul 06/02/2017 Testosterone Cyk505 Testo 198.4 ng/dL 04/29/2017 Vitamin D 25 Oh Ssu6766 VITAMIN D, 25 HYDROXY 29.25 ng/mL Lipid [...] affect 11/17/2017 None Full Exam - General 1995 Musculoskeletal upper extremity ROM - shoulder: crepitus [...] Procedure Codes Date THER/PROPH/DIAG INJ SC/IM CPT-4: 16956 01/05/2018 THER/PROPH/DIAG INJ SC/IM CPT-4: 66100 12/15/2017 THER/PROPH/DIAG INJ SC/IM CPT-4: 51222 12/04/2017 PPPS, SUBSEQ VISIT CPT -4: G0439 11/27/2017 ADMIN INFLUENZA VIRUS VAC CPT-4: G0008 11/17/2017 FLU VAC NO PRSV 4 FATOU 3 YRS+ CPT-4: 71094 11/17/2017 THER/PROPH/DIAG INJ SC/IM CPT-4: 82760 11/17/2017 THER/PROPH/DIAG INJ SC/IM CPT-4: 64438 10/22/2017 THER/PROPH/DIAG INJ SC/IM CPT-4: 84062 10/06/2017 TRIAMCINOLONE ACET INJ NOS CPT-4: J3301 10/06/2017 THER/PROPH/DIAG INJ SC/IM CPT-4: 74139 09/23/2017 THER/PROPH/DIAG INJ SC/IM CPT-4: 58492 08/28/2017 THER/PROPH/DIAG INJ SC/IM CPT-4: 58924 08/12/2017 THER/PROPH/DIAG INJ SC/IM CPT-4: 52192 07/28/2017 THER/PROPH/DIAG INJ SC/IM CPT-4: 02499 07/14/2017 THER/PROPH/DIAG INJ SC/IM CPT-4: 20737 06/26/2017 THER/PROPH/DIAG INJ SC/IM CPT-4: 11814 06/09/2017 THER/PROPH/DIAG INJ SC/IM CPT-4: 45860 05/27/2017 THER/PROPH/DIAG INJ SC/IM CPT-4: 81466 05/13/2017 THER/PROPH/DIAG INJ SC/IM CPT-4: 87615 04/29/2017 Vital Signs Date Vital 12/22/2017 Blood Pressure 1: 124/70 Code : 8480-6 BMI: 29.7 Code : 63362-0 Heart Rate 1 : 84 bpm Height: 5'10" SpO2: 94% Weight: 207 lbs 12/15/2017 Blood Pressure 1: 122/82 Code : 8480-6 BMI: 30.0 Code : 66683-1 Heart Rate 1 : 82 bpm Height: 5'10" SpO2: 93% Weight: 209 lbs 11/27/2017 Blood Pressure 1: 132/68 Code : 8480-6 BMI: 29.3 Code : 53613-3 Heart Rate 1 : 71 bpm Height: 5'10" SpO2: 97% Waist Measure (cm): 97 cm Weight: 204 lbs 11/17/2017 Blood Pressure 1: 130/80 Code : 8480-6 BMI: 29.3 Code : 24275-9 Heart Rate 1 : 73 bpm Height: 5'10" SpO2: 99% Weight: 204 lbs 10/06/2017 Blood Pressure 1: 124/60 Code : 8480-6 BMI: 28.8 Code : 20702-7 Heart Rate 1 : 70 bpm Height: 5'10" SpO2: 98% Weight: 201 lbs 07/24/2017 Blood Pressure 1: 118/70 Code : 8480-6 BMI: 29.3 Code : 99451-4 Heart Rate 1 : 82 bpm Height: 5'10" SpO2: 96% Weight: 204 lbs 07/14/2017 Blood Pressure 1: 118/72 Code : 8480-6 BMI: 29.1 Code : 45497-7 Heart Rate 1 : 83 bpm Height: 5'10" SpO2: 98% Weight: 203 lbs 06/09/2017 Blood Pressure 1: 120/74 Code : 8480-6 BMI: 29.3 Code : 47246-3 Heart Rate 1 : 91 bpm Height: 5'10" SpO2: 99% Weight: 204 lbs 04/28/2017 Blood Pressure 1: 118/68 Code : 8480-6 BMI: 28.8 Code : 81978-2 Heart Rate 1 : 74 bpm Height: 5'10" SpO2: 96% Weight: 201 lbs 03/14/2017 Blood Pressure 1: 114/74 Code : 8480-6 BMI: 28.6 Code : 35629-0 Heart Rate 1 : 77 bpm Height: 5'10" SpO2: 97% Weight: 199 lbs Functional Status No Functional Status data History of Present Illness Symptom Name Status Result Effective Date Notes back pain Location lumbar-sacral spine 12/22/2017 None [...] data Encounters Encounter Performer Location Codes Date ([id number]) [id number] EST. PATIENT, LEVEL III Diagnosis: Spinal stenosis, lumbosacral region[ICD10: M48.07] Diagnosis: Spinal stenosis, cervical region[ICD10: M48.02] [facility] CPT-4: 45134 12/22/2017 ([id number]) 76639 EST. 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 PATIENT, LEVEL III Diagnosis: Mixed hyperlipidemia[ICD10: E78.2] Diagnosis: Other insomnia[ICD10: G47.09] Le[facility] Hollis MD [facility] CPT- 4: 35287 11/17/2017 [id number] EST. PATIENT, LEVEL III Diagnosis: Acute laryngopharyngitis[ICD10: J06.0] Diagnosis: Other allergic rhinitis[ICD10: J30.89] Sapphire Hollis MD, [facility] CPT-4: 10943 10/06/2017 85546 EST. PATIENT, LEVEL III Diagnosis: Pain in left shoulder[ICD10: M25.512] Sapphire Hollis MD [facility] CPT-4: 96596 07/24/2017 ([id number]) 18560 EST. 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] Diagnosis: Impacted cerumen, bilateral[ICD10: H61.23] 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 12/22/2017 Appointment: Elise Castillo WPtel: [address] [place], [place] [address] [place] [address] (15 min) Moderate 12/22/2017 Patient Education: Patient Medication Summary Completed 12/22/2017 Visit Plan: Neck and low back pain -will schedule MRI lumbar and cervical spine for further evaluation and proceed as indicated- patient verbalized understanding of plan. 12/15/2017 Appointment: Elise Castillo WPtel: [phone] (15 min) Moderate 12/15/2017 Patient Education: Patient Medication Summary Completed 12/15/2017 Patient Education: Back Pain Completed 12/15/2017 Care Plan: MRI LUMBAR SPINE W/O DYE LOINC : 15043-3 Pending 12/15/2017 Care Plan: MRI NECK SPINE W/O DYE LOINC : 39740-5 Pending 12/15/2017 Appointment: Injection 12/04/2017 Patient Education: [...] surrogate. 11/27/2017 Appointment: Sapphire Oneil WPtel: [phone] [facility] [facility] - Annual Wellness Visit 11/27/2017 Patient Education: [...] Leora Hollis WPtel: [facility] (15 min) Moderate 11/17/2017 Patient Education: [...] spray. 10/06/2017 [facility]ment[phone] (15 min) Moderate 10/06/2017 Appointment[phone] ([place] min) Moderate 10/06/2017 Patient Education: Patient [...] plan. 07/24/2017 Appointment: Sapphire Oneil [facility] [phone] [facility] (30 min) Complex 07/24/2017 Patient Education: Patient [...] medications. 07/14/2017 Appointment: [phone] [facility] [place] (15 min) Moderate 07/14/2017 Patient Education: Patient Medication Summary Completed 07/14/2017 Appointment: [facility] [phone] [facility] (15 min) Moderate 07/10/2017 Appointment: Injection 06/26/2017 [...] night 06/09/2017 Appointment: Leora Hollis WPtel: [phone] [facility] (30 min) Complex 06/09/2017 Patient Education: [...] of 15 04/28/2017 Appointment: Leora Hollis WPtel: [facility] [place] (30 min) Complex 04/28/2017 Patient Education: [...] Leora Hollis WPtel: [facility] New Patient 03/14/2017 Patient Education: Patient Medication [...] for oxygen concentrator with humidification at night REFER FOR PHYSICAL THERAPY AT [facility] -HE HAS A PT HE HAS [...]
--- OUTSIDE RECORDS SUMMARY | 2018-06-12 09:54 | XMS REPORT | CCD ---
Author Author [facility] Organization [facility] Address [address] [place] [address] Phone Care Team Providers [employer] Name Role Phone PP Unavailable CCM Unavailable Summary Purpose Interface Exchange Insurance Providers Payer name Policy type / Coverage type Covered green party ID Effective Begin Date Effective End Date WPS Medicare Part B Medicare Part B [id number] 2017 Unknown [facility] Medicare Part B [id number] 2017 Unknown Family history Father Diagnosis Age At Onset Heart Attack Unknown Social History Social History Element Codes Description Effective Dates Marital status Unknown 03/14/2017 Number of children Unknown 2 03/14/[address]: 4959988 Former smoker Quit 11/03/00; smoke 1/2 pack/day x15 years 03/14/[address]: 192046363 Never drinks alcohol 03/14/2017 Allergies, Adverse Reactions, Alerts Substance Reaction Codes Entered Date Inactivated Date Status * NO KNOWN ENVIRONMENTAL ALLERGIES Unknown 03/14/2017 No Inactive Date Active * NO KNOWN FOOD ALLERGIES Unknown 03/14/2017 No Inactive Date Active * NO KNOWN DRUG ALLERGIES Unknown 03/14/2017 No Inactive Date Active Past Medical History Illness Codes Condition Status Onset Date Resolved Date Spinal stenosis, cervical region ICD-9: 723.0 ICD-10: M48.02 Active 12/22/2017 Unknown Spinal stenosis, lumbosacral region ICD-9: 724.02 ICD-10: M48.07 Active 12/22/2017 Unknown Cervicalgia ICD-9: 723.1 ICD-10: M54.2 Active 12/15/2017 Unknown Low back pain ICD-9: 724.2 ICD-10: M54.5 Active 12/15/2017 Unknown 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 Active 04/28/2017 Unknown Encounter for general adult medical examination [...] Active 03/14/2017 Unknown 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 ICD-10: I25.10 Active 03/14/2017 Unknown Chronic pain syndrome ICD-9: 338.4 ICD-10: G89.4 Active 03/14/2017 Unknown Personal history of other diseases of the circulatory system ICD-9: V12.59 ICD-10: Z86.79 Active 03/14/2017 Unknown Presbycusis, 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 Active 03/14/2017 Unknown Problems Condition Codes Effective Dates Condition Status Spinal stenosis, cervical region ICD-9: 723.0 ICD-10: M48.02 12/22/2017 Active Spinal stenosis, lumbosacral region ICD-9: 724.02 ICD-10: M48.07 12/22/2017 Active Cervicalgia ICD-9: 723.1 ICD-10: M54.2 12/15/2017 Active Low back pain ICD-9: 724.2 ICD-10: M54.5 12/15/2017 Active 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 04/28/2017 Active Encounter for general adult medical examination [...] H61.23 03/14/2017 Active 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 ICD-10: I25.10 03/14/2017 Active Chronic pain syndrome ICD-9: 338.4 ICD-10: G89.4 03/14/2017 Active Personal history of other diseases of the circulatory system ICD-9: V12.59 ICD-10: Z86.79 03/14/2017 Active Presbycusis, 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 03/14/2017 Active Medications Medication Codes Instructions Start Date Stop Date Status Fill Instructions hydrocodone 5 mg-acetaminophen 325 mg tablet RxNorm: 576977 1-2 Tablet(s) PO Q6 PRN 12/22/2017 02/19/2018 Active zolpidem 5 mg tablet RxNorm: 851887 1 Tablet(s) PO 30 min before QHS 12/15/2017 02/12/2018 Active testosterone cypionate 200 mg/mL intramuscular oil RxNorm: 306168 Milliliter(s) IM 12/15/2017 12/15/2017 Inactive testosterone cypionate 200 mg/mL intramuscular oil RxNorm: 908429 1/2 Milliliter(s ) IM 12/04/2017 12/04/2017 Inactive testosterone cypionate 200 mg/mL intramuscular oil RxNorm: 149968 1/2 Milliliter(s ) IM 11/17/2017 11/17/2017 Inactive potassium chloride ER 10 mEq capsule,extended release RxNorm: 712072 TAKE ONE CAPSULE BY MOUTH DAILY 11/11/20172018 Active testosterone cypionate 200 mg/mL intramuscular oil RxNorm: 267482 Milliliter(s) IM 10/22/2017 10/22/2017 Inactive zolpidem 5 mg tablet RxNorm: 674125 1 Tablet(s) PO 30 min before QHS 10/15/2017 10/14/2017 Inactive zolpidem 5 mg tablet RxNorm: 515145 1 Tablet(s) PO 30 min before QHS 10/15/2017 12/13/2017 Inactive Zithromax Z-Timothy 250 mg tablet RxNorm: 336135 1 Tablet(s) PO UD 10/07/2017 11/16/2017 Inactive testosterone cypionate 200 mg/mL intramuscular oil RxNorm: 999016 Milliliter(s) IM 10/06/2017 10/06/2017 Inactive Kenalog 40 mg/mL suspension for injection RxNorm: 7935602 Milliliter(s) Inj 10/06/2017 10/06/2017 Inactive Zithromax Z-Timothy 250 mg tablet RxNorm: 935872 1 Tablet(s) PO UD 10/06/2017 10/06/2017 Inactive testosterone cypionate 200 mg/mL intramuscular oil RxNorm: 543337 Milliliter(s) IM 09/23/2017 09/23/2017 Inactive testosterone cypionate 200 mg/mL intramuscular kit RxNorm: 979557 1/2 Milliliter(s ) IM U1pskov 08/28/2017 02/23/2018 Active meloxicam 15 mg tablet RxNorm: 071484 TAKE ONE TABLET BY MOUTH DAILY 08/28/2017 05/24/2018 Active testosterone cypionate 200 mg/mL intramuscular oil RxNorm: 609863 Milliliter(s) IM 08/28/2017 08/28/2017 Inactive testosterone cypionate 200 mg/mL intramuscular oil RxNorm: 871781 1/2 Milliliter(s ) IM 08/12/2017 08/12/2017 Inactive meloxicam 15 mg tablet RxNorm: 949273 1 Tablet(s) PO daily 08/201708/27/2017 Inactive atorvastatin 40 mg tablet RxNorm: 250110 TAKE ONE TABLET BY MOUTH DAILY 07/30/2017 02/24/2018 Active furosemide 40 mg tablet RxNorm: 275948 TAKE ONE TABLET BY MOUTH DAILY 07/30/2017 02/24/2018 Active testosterone cypionate 200 mg/mL intramuscular oil RxNorm: 164360 1/2 Milliliter(s ) IM 07/28/2017 07/28/2017 Inactive testosterone cypionate 200 mg/mL intramuscular oil RxNorm: 903455 1/2 Milliliter(s ) IM 07/14/2017 07/14/2017 Inactive testosterone cypionate 200 mg/mL intramuscular oil RxNorm: 759073 1/2 Milliliter(s ) IM 06/26/2017 06/26/2017 Inactive hydrocodone 5 mg-acetaminophen 325 mg tablet RxNorm: 174928 1 Tablet(s) PO QHS and 1 tab PO daily PRN pain 06/09/2017 Inactive hydrocodone 5 mg-acetaminophen 325 mg tablet RxNorm: 720708 1 Tablet(s) PO daily 06/09/2017 06/18/2017 Inactive testosterone cypionate 200 mg/mL intramuscular oil RxNorm: 969669 1/2 Milliliter(s ) IM 06/09/2017 06/09/2017 Inactive testosterone cypionate 200 mg/mL intramuscular oil RxNorm: 948621 Milliliter(s) IM 05/27/2017 05/27/2017 Inactive testosterone cypionate 200 mg/mL intramuscular oil RxNorm: 066578 Milliliter(s) IM 05/13/2017 05/13/2017 Inactive potassium chloride ER 10 mEq capsule,extended release RxNorm: 318593 1 Capsule(s) PO daily 05/07/2017 11/02/2017 Inactive Vitamin D2 50,000 unit capsule RxNorm: 075277 1 Capsule(s) PO QW 05/06/2017 05/05/2017 Inactive take with OTC vitamin d 2,000 units QD testosterone cypionate 200 mg/mL intramuscular kit RxNorm: 580015 1/2 kit IM 2 x month 05/06/2017 08/27/2017 Inactive Vitamin D2 50,000 unit capsule RxNorm: 588910 1 Capsule(s) PO QW 05/06/2017 08/03/2017 Inactive take with OTC vitamin d 2,000 units QD testosterone cypionate 200 mg/mL intramuscular oil RxNorm: 877618 1/2 Milliliter(s ) IM 04/29/2017 04/29/2017 Inactive fluorouracil 5 % topical cream RxNorm: 605627 1 Application TOP BID 04/28/2017 05/07/2017 Inactive testosterone cypionate 200 mg/mL intramuscular kit RxNorm: 141711 1/2 IM 2 x month 04/28/2017 05/05/2017 Inactive Pamelor 10 mg capsule RxNorm: 499190 1 Capsule(s) PO daily No Start Date Active gabapentin 300 mg capsule RxNorm: 536778 6 Capsule(s) PO daily No Start Date Active cyclobenzaprine 5 mg tablet RxNorm: 104310 1 Tablet(s) PO as needed No Start Date Active diclofenac 1 % topical gel RxNorm: 064720 1 Gram(s) TOP as needed No Start Date Active clopidogrel 75 mg tablet RxNorm: 295346 1 Tablet(s) PO daily No Start Date Active meloxicam 15 mg tablet RxNorm: 189887 1 Tablet(s) PO daily No Start Date 07/30/2017 Inactive potassium chloride ER 10 mEq tablet,extended release RxNorm: 116157 1 Tablet(s) PO daily No Start Date 05/06/2017 Inactive hydrocodone 5 mg-acetaminophen 325 mg tablet RxNorm: 460905 1 Tablet(s) PO daily No Start Date 06/08/2017 Inactive furosemide 40 mg tablet RxNorm: 269762 1 Tablet(s) PO daily No Start Date 07/29/2017 Inactive atorvastatin 40 mg tablet RxNorm: 125737 1 Tablet(s) PO QHS No Start Date 07/29/2017 Inactive Medication Administered Medication Codes Instructions Start Date Status testosterone cypionate 200 mg/mL intramuscular oil RxNorm: 770094 Milliliter 12/15/2017 No longer Active testosterone cypionate 200 mg/mL intramuscular oil RxNorm: 574950 /2Milliliter 12/04/2017 No longer Active testosterone cypionate 200 mg/mL intramuscular oil RxNorm: 792256 /2Milliliter 11/17/2017 No longer Active testosterone cypionate 200 mg/mL intramuscular oil RxNorm: 351322 Milliliter 10/22/2017 No longer Active testosterone cypionate 200 mg/mL intramuscular oil RxNorm: 096244 Milliliter 10/06/2017 No longer Active Kenalog 40 mg/mL suspension for injection RxNorm: 0377730 Milliliter 10/06/2017 No longer Active testosterone cypionate 200 mg/mL intramuscular oil RxNorm: 809701 Milliliter 09/23/2017 No longer Active testosterone cypionate 200 mg/mL intramuscular oil RxNorm: 899626 Milliliter 08/28/2017 No longer Active testosterone cypionate 200 mg/mL intramuscular oil RxNorm: 177133 /2Milliliter 08/12/2017 No longer Active testosterone cypionate 200 mg/mL intramuscular oil RxNorm: 806547 /2Milliliter 07/28/2017 No longer Active testosterone cypionate 200 mg/mL intramuscular oil RxNorm: 349482 /2Milliliter 07/14/2017 No longer Active testosterone cypionate 200 mg/mL intramuscular oil RxNorm: 809454 /2Milliliter 06/26/2017 No longer Active testosterone cypionate 200 mg/mL intramuscular oil RxNorm: 815813 /2Milliliter 06/09/2017 No longer Active testosterone cypionate 200 mg/mL intramuscular oil RxNorm: 364316 Milliliter 05/27/2017 No longer Active testosterone cypionate 200 mg/mL intramuscular oil RxNorm: 999526 Milliliter 05/13/2017 No longer Active testosterone cypionate 200 mg/mL intramuscular oil RxNorm: 728156 /2Milliliter 04/29/2017 No longer Active Immunizations Vaccine Codes Date Status Influenza CVX: 141 11/17/2017 completed Assessments Condition Codes Effective Dates Spinal stenosis, cervical region ICD-10: M48.02 ICD-9: 723.0 12/22/2017 Spinal stenosis, lumbosacral region ICD-10: M48.07 ICD-9: 724.02 12/22/2017 Cervicalgia ICD-10: M54.2 ICD-9: 723.1 12/15/2017 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 ICD-9: 257.2 12/15/2017 Low back pain ICD-10: M54.5 ICD-9: [...] ICD-9: 380.4 03/17/2017 Atherosclerotic heart disease of [place] coronary artery without angina pectoris ICD-10: I25.10 [...] Code Item Item Code Result Date Hepatic Zob944 ALBUMIN 3.7 g/dL 08/06/2017 Hepatic Iga068 TPRO 5.9 g/dL 08/06/2017 Hepatic Kar206 GLOB 2.2 g/dL 08/06/2017 Hepatic Rgq805 A/G Ratio 1.7 Ratio 08/06/2017 Hepatic Evp779 ALK PHOS 46 U/L 08/06/2017 Hepatic Occ472 ALT(SGPT) 9 U/L 08/06/2017 Hepatic Byk455 AST(SGOT) 13 U/L 08/06/2017 Hepatic Isj941 BILI T 0.6 mg/dL 08/06/2017 Hepatic Dch278 BILI D 0.2 mg/dL 08/06/2017 Hepatic Vbk638 BILI I 0.4 mg/dL 08/06/2017 Testosterone Qhx814 Testo 474.5 ng/dL 08/06/2017 Cbc With Differential [...] 25.2 % 08/06/2017 Cbc With Differential Ord2 [place]% 11.2 % 08/06/2017 Cbc With Differential Ord2 [...] 1.33 K/ul 08/06/2017 Cbc With Differential Ord2 [place] ABS# 0.6 K/ul 08/06/2017 Cbc With Differential Ord2 Eos ABS# 0.3 K/ul 08/06/2017 Cbc With Differential Ord2 Baso ABS# 0.1 K/ul 08/06/2017 Comp Metabolic Xvu046 NA 140 mEq/L 06/02/2017 Comp Metabolic Ffi520 K 3.8 mEq/L 06/02/2017 Comp Metabolic Iwf458 CL 102 mEq/L 06/02/2017 Comp Metabolic Mbj664 CO2 30.0 mEq/L 06/02/2017 Comp Metabolic Tco698 ANION GAP 12 06/02/2017 Comp Metabolic Wcr164 GLUCOSE 100 mg/dL 06/02/2017 Comp Metabolic Gnj206 Creat 1.1 mg/dL 06/02/2017 Comp Metabolic Cjy325 eGFR 69 ml/min/1.73m2 06/02/2017 Comp Metabolic Nln483 BUN 15 mg/dL 06/02/2017 Comp Metabolic Hfc084 B/C Ratio 13.4 Ratio 06/02/2017 Comp Metabolic Mkc220 CALCIUM 8.6 mg/dL 06/02/2017 Comp Metabolic Acn285 ALK PHOS 63 U/L 06/02/2017 Comp Metabolic Icv030 AST(SGOT) 17 U/L 06/02/2017 Comp Metabolic Exx814 ALT(SGPT) 12 U/L 06/02/2017 Comp Metabolic Hvb962 BILI T 0.5 mg/dL 06/02/2017 Comp Metabolic Evu885 ALBUMIN 3.9 g/dL 06/02/2017 Comp Metabolic Yuz875 TPRO 6.1 g/dL 06/02/2017 Comp Metabolic Ocp353 GLOB 2.2 g/dL 06/02/2017 Comp Metabolic Rcq258 A/G Ratio 1.8 Ratio 06/02/2017 Comp Metabolic Kkz427 Osmo 280 mOsmo 06/02/2017 Vitamin D 25 Oh Mzz1975 VITAMIN D, 25 HYDROXY 40.03 ng/mL Cbc [...] 29.7 pg 06/02/2017 Cbc With Differential Ord2 [place]% 10.5 % 06/02/2017 Cbc With Differential Ord2 [...] 1.52 K/ul 06/02/2017 Cbc With Differential Ord2 [place] ABS# 0.6 K/ul 06/02/2017 Cbc With Differential Ord2 Eos ABS# 0.2 K/ul 06/02/2017 Cbc With Differential Ord2 Baso ABS# 0.1 K/ul 06/02/2017 Testosterone Nfx047 Testo 198.4 ng/dL 04/29/2017 Vitamin D 25 Oh Lmp7055 VITAMIN D, 25 HYDROXY 29.25 ng/mL Lipid [...] Procedure Codes Date THER/PROPH/DIAG INJ SC/IM CPT-4: 45869 12/15/2017 THER/PROPH/DIAG INJ SC/IM CPT-4: 45896 12/04/2017 PPPS, SUBSEQ VISIT CPT -4: G0439 11/27/2017 ADMIN INFLUENZA VIRUS VAC CPT-4: G0008 11/17/2017 FLU VAC NO PRSV 4 FATOU 3 YRS+ CPT-4: 57219 11/17/2017 THER/PROPH/DIAG INJ SC/IM CPT-4: 54560 11/17/2017 THER/PROPH/DIAG INJ SC/IM CPT-4: 17944 10/22/2017 THER/PROPH/DIAG INJ SC/IM CPT-4: 77590 10/06/2017 TRIAMCINOLONE ACET INJ NOS CPT-4: J3301 10/06/2017 THER/PROPH/DIAG INJ SC/IM CPT-4: 50403 09/23/2017 THER/PROPH/DIAG INJ SC/IM CPT-4: 01849 08/28/2017 THER/PROPH/DIAG INJ SC/IM CPT-4: 24527 08/12/2017 THER/PROPH/DIAG INJ SC/IM CPT-4: 40309 07/28/2017 THER/PROPH/DIAG INJ SC/IM CPT-4: 63975 07/14/2017 THER/PROPH/DIAG INJ SC/IM CPT-4: 39378 06/26/2017 THER/PROPH/DIAG INJ SC/IM CPT-4: 48378 06/09/2017 THER/PROPH/DIAG INJ SC/IM CPT-4: 60437 05/27/2017 THER/PROPH/DIAG INJ SC/IM CPT-4: 45927 05/13/2017 THER/PROPH/DIAG INJ SC/IM CPT-4: 94710 04/29/2017 Vital Signs Date Vital 12/22/2017 Blood Pressure 1: 124/70 Code : 8480-6 BMI: 29.7 Code : 76699-7 Heart Rate 1 : 84 bpm Height: 5'10" SpO2: 94% Weight: 207 lbs 12/15/2017 Blood Pressure 1: 122/82 Code : 8480-6 BMI: 30.0 Code : 64960-7 Heart Rate 1 : 82 bpm Height: 5'10" SpO2: 93% Weight: 209 lbs 11/27/2017 Blood Pressure 1: 132/68 Code : 8480-6 BMI: 29.3 Code : 16801-2 Heart Rate 1 : 71 bpm Height: 5'10" SpO2: 97% Waist Measure (cm): 97 cm Weight: 204 lbs 11/17/2017 Blood Pressure 1: 130/80 Code : 8480-6 BMI: 29.3 Code : 18846-0 Heart Rate 1 : 73 bpm Height: 5'10" SpO2: 99% Weight: 204 lbs 10/06/2017 Blood Pressure 1: 124/60 Code : 8480-6 BMI: 28.8 Code : 95377-2 Heart Rate 1 : 70 bpm Height: 5'10" SpO2: 98% Weight: 201 lbs 07/24/2017 Blood Pressure 1: 118/70 Code : 8480-6 BMI: 29.3 Code : 84244-4 Heart Rate 1 : 82 bpm Height: 5'10" SpO2: 96% Weight: 204 lbs 07/14/2017 Blood Pressure 1: 118/72 Code : 8480-6 BMI: 29.1 Code : 99727-6 Heart Rate 1 : 83 bpm Height: 5'10" SpO2: 98% Weight: 203 lbs 06/09/2017 Blood Pressure 1: 120/74 Code : 8480-6 BMI: 29.3 Code : 74389-2 Heart Rate 1 : 91 bpm Height: 5'10" SpO2: 99% Weight: 204 lbs 04/28/2017 Blood Pressure 1: 118/68 Code : 8480-6 BMI: 28.8 Code : 14062-7 Heart Rate 1 : 74 bpm Height: 5'10" SpO2: 96% Weight: 201 lbs 03/14/2017 Blood Pressure 1: 114/74 Code : 8480-6 BMI: 28.6 Code : 80399-4 Heart Rate 1 : 77 bpm Height: [...] data Encounters Encounter Performer Location Codes Date ([id number]) [id number] EST. PATIENT, LEVEL III Diagnosis: Spinal stenosis, lumbosacral region[ICD10: M48.07] Diagnosis: Spinal stenosis, cervical region[ICD10: M48.02] Elise Hollis MD, [facility] CPT-4: 20374 12/22/2017 ([id number]) 92050 EST. PATIENT, LEVEL III Diagnosis: Cervicalgia[ICD10: M54.2] Diagnosis: Low back pain[ICD10: M54.5] Diagnosis: Testicular hypofunction[ICD10: E29.1] [facility] CPT-4: 82135 12/15/2017 ([id number]) 51562 EST. PATIENT, LEVEL III Diagnosis: Mixed hyperlipidemia[ICD10: E78.2] Diagnosis: Other insomnia[ICD10: G47.09] [facility] CPT- 4: 47040 11/17/2017 74584 EST. PATIENT, LEVEL III Diagnosis: Acute laryngopharyngitis[ICD10: J06.0] Diagnosis: Other allergic rhinitis[ICD10: J30.89] Sapphire Hollis MD, [facility] CPT-4: 00284 10/06/2017 [id number] EST. PATIENT, LEVEL III Diagnosis: Pain in left shoulder[ICD10: M25.512] Sapphire Hollis MD, [facility] CPT-4: 49734 07/24/2017 ([id number]) 80003 EST. PATIENT, LEVEL IV Diagnosis: Mixed hyperlipidemia[ICD10: E78.2] Diagnosis: Chronic obstructive pulmonary disease, unspecified[ICD10: J44.9] Diagnosis: Testicular hypofunction[ICD10: E29.1] Leora Hollis MD, [facility] CPT-4: 68417 07/14/2017 ([id number]) 86856 EST. 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] Diagnosis: Mixed hyperlipidemia[ICD10: E78.2] Diagnosis: Hypoxemia[ICD10: R09.02] Leora Hollis MD, [facility] CPT-4: 81759 06/09/2017 ([id number]) 18315 EST. 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] Leora Hollis MD, [facility] CPT-4: 13674 04/28/2017 ([id number]) Miscellaneous no charge Diagnosis: Impacted cerumen, bilateral[ICD10: H61.23] Leora Hollis MD, [facility] CPT-4: 83305 03/17/2017 ([id number]) OFFICE VISIT, NEW - LEVEL 4 Diagnosis: Mixed hyperlipidemia[ICD10: E78.2] Diagnosis: Chronic pain syndrome[ICD10: G89.4] Diagnosis: Presbycusis, bilateral[ICD10: H91.13] Diagnosis: Impacted cerumen, bilateral[ICD10: H61.23] Diagnosis: Atherosclerotic heart disease of [place] coronary artery without angina pectoris[ICD10: I25.10] Diagnosis: Personal history of other diseases of the circulatory system[ICD10: Z86.79] [facility] CPT-4: 82873 2017 Plan of Care Planned Activity Notes Codes Status Date Visit Plan: Cervical and lumbar stenosis -refer for PT to evaluate and treat -follow up with DR Steward as scheduled -refill hydrocodone for prn use only -discussed with patient that he is to use it for breakthrough pain only -patient verbalized understanding of plan. 12/22/2017 Appointment: Elise Castillo WPtel: [phone] (15 min) Moderate 12/22/2017 Patient Education: Patient Medication Summary Completed 12/22/2017 Visit Plan: Neck and low back pain -will schedule MRI lumbar and cervical spine for further evaluation and proceed as indicated- patient verbalized understanding of plan. 12/15/2017 Appointment: Elise Castillo WPtel: [phone] [phone] (15 min) Moderate 12/15/2017 Patient Education: Patient Medication Summary Completed 12/15/2017 Patient Education: Back Pain Completed 12/15/2017 Care Plan: MRI LUMBAR SPINE W/O DYE LOINC : 96375-8 Pending 12/15/2017 Care Plan: MRI NECK SPINE W/O DYE LOINC : 00140-0 Pending 12/15/2017 Appointment: Injection 12/04/2017 Patient Education: [...] health care surrogate. 11/27/2017 Appointment: Sapphire Oneill: [facility] [facility] - Annual Wellness Visit 11/27/2017 [...] to sleep 11/17/2017 Appointment: Leora Hollis WPtel: [facility] (15 min) Moderate 11/17/2017 Patient [...] spray. 10/06/2017 Appointment: Leora Hollis WPtel: [phone] [facility] (15 min) Moderate 10/06/2017 Appointment: Sapphire Oneil WPtel: [facility] [place] (15 min) Moderate 10/06/2017 Patient [...] plan. 07/24/2017 Appointment[phone] [place] (30 min) Complex 07/24/2017 Patient Education: [...] medications. 07/14/2017 [phone] [place] (15 min) Moderate 07/14/2017 Patient Education: Patient Medication Summary Completed 07/14/2017 App[phone] [facility] [place] (15 min) Moderate 07/10/2017 [...] night 06/09/2017 App[phone] ([facility] min) Complex 06/09/2017 Patient [...] 15 04/28/2017 App[phone] [facility] (30 min) Complex 04/28/2017 Patient Education: [...] removal 03/14/2017 App[phone] New [facility] 03/14/2017 Patient Education: Patient [...] at night REFER FOR PHYSICAL THERAPY AT [facility] -HE HAS A PT HE [...]
--- OUTSIDE RECORDS SUMMARY | 2018-06-12 09:56 | XMS REPORT | CCD ---
Author Author [facility] Organization [facility] Address [address] [place] [address] Phone Care Team Providers Care Contract Implementation Analyst Name Role Phone PP Unavailable CCM Unavailable Summary Purpose Interface Exchange Insurance Providers Payer name Policy type / Coverage type Covered democrat ID Effective Begin Date Effective End Date WPS Medicare Part B Medicare Part B [id number] 2017 Unknown [facility] Medicare Part B [id number] 2017 Unknown Family history Father Diagnosis Age At Onset Heart Attack Unknown Social History Social History Element Codes Description Effective Dates Marital status Unknown 03/14/2017 Number of children Unknown 2 03/14/[address]: 1324094 Former smoker Quit 11/03/00; smoke 1/2 pack/day x15 years 03/14/[address]: 726640169 Never drinks alcohol 03/14/2017 Allergies, Adverse Reactions, [...] Active 03/14/2017 Unknown 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 [...] H61.23 03/14/2017 Active 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 ICD-10: I25.10 03/14/2017 Active Chronic pain syndrome ICD-9: 338.4 ICD-10: G89.4 03/14/2017 Active Personal history of other diseases of the circulatory system ICD-9: V12.59 ICD-10: Z86.79 03/14/2017 Active Presbycusis, 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 03/14/2017 Active Medications Medication Codes Instructions Start Date Stop Date Status Fill Instructions hydrocodone 5 mg-acetaminophen 325 mg tablet RxNorm: 924936 1-2 Tablet(s) PO Q6 PRN 12/22/2017 02/19/2018 Active zolpidem 5 mg tablet RxNorm: 643071 1 Tablet(s) PO 30 min before QHS 12/15/2017 02/12/2018 Active testosterone cypionate 200 mg/mL intramuscular oil RxNorm: 115298 Milliliter(s) IM 12/15/2017 12/15/2017 Inactive testosterone cypionate 200 mg/mL intramuscular oil RxNorm: 784646 1/2 Milliliter(s ) IM 12/04/2017 12/04/2017 Inactive testosterone cypionate 200 mg/mL intramuscular oil RxNorm: 606836 1/2 Milliliter(s ) IM 11/17/2017 11/17/2017 Inactive potassium chloride ER 10 mEq capsule,extended release RxNorm: 223464 TAKE ONE CAPSULE BY MOUTH DAILY 11/11/20172018 Active testosterone cypionate 200 mg/mL intramuscular oil RxNorm: 717524 Milliliter(s) IM 10/22/2017 10/22/2017 Inactive zolpidem 5 mg tablet RxNorm: 869096 1 Tablet(s) PO 30 min before QHS 10/15/2017 10/14/2017 Inactive zolpidem 5 mg tablet RxNorm: 466309 1 Tablet(s) PO 30 min before QHS 10/15/2017 12/13/2017 Inactive Zithromax Z-Timothy 250 mg tablet RxNorm: 365559 1 Tablet(s) PO UD 10/07/2017 11/16/2017 Inactive testosterone cypionate 200 mg/mL intramuscular oil RxNorm: 503949 Milliliter(s) IM 10/06/2017 10/06/2017 Inactive Kenalog 40 mg/mL suspension for injection RxNorm: 9797430 Milliliter(s) Inj 10/06/2017 10/06/2017 Inactive Zithromax Z-Timothy 250 mg tablet RxNorm: 521778 1 Tablet(s) PO UD 10/06/2017 10/06/2017 Inactive testosterone cypionate 200 mg/mL intramuscular oil RxNorm: 257598 Milliliter(s) IM 09/23/2017 09/23/2017 Inactive testosterone cypionate 200 mg/mL intramuscular kit RxNorm: 361649 1/2 Milliliter(s ) IM [id number] 08/28/2017 02/23/2018 Active meloxicam 15 mg tablet RxNorm: 331126 TAKE ONE TABLET BY MOUTH DAILY 08/28/2017 05/24/2018 Active testosterone cypionate 200 mg/mL intramuscular oil RxNorm: 820450 Milliliter(s) IM 08/28/2017 08/28/2017 Inactive testosterone cypionate 200 mg/mL intramuscular oil RxNorm: 794488 1/2 Milliliter(s ) IM 08/12/2017 08/12/2017 Inactive meloxicam 15 mg tablet RxNorm: 051810 1 Tablet(s) PO daily 08/201708/27/2017 Inactive atorvastatin 40 mg tablet RxNorm: 298187 TAKE ONE TABLET BY MOUTH DAILY 07/30/2017 02/24/2018 Active furosemide 40 mg tablet RxNorm: 834588 TAKE ONE TABLET BY MOUTH DAILY 07/30/2017 02/24/2018 Active testosterone cypionate 200 mg/mL intramuscular oil RxNorm: 797226 1/2 Milliliter(s ) IM 07/28/2017 07/28/2017 Inactive testosterone cypionate 200 mg/mL intramuscular oil RxNorm: 985461 1/2 Milliliter(s ) IM 07/14/2017 07/14/2017 Inactive testosterone cypionate 200 mg/mL intramuscular oil RxNorm: 046801 1/2 Milliliter(s ) IM 06/26/2017 06/26/2017 Inactive hydrocodone 5 mg-acetaminophen 325 mg tablet RxNorm: 566291 1 Tablet(s) PO QHS and 1 tab PO daily PRN pain 06/09/2017 Inactive hydrocodone 5 mg-acetaminophen 325 mg tablet RxNorm: 790631 1 Tablet(s) PO daily 06/09/2017 06/18/2017 Inactive testosterone cypionate 200 mg/mL intramuscular oil RxNorm: 079034 1/2 Milliliter(s ) IM 06/09/2017 06/09/2017 Inactive testosterone cypionate 200 mg/mL intramuscular oil RxNorm: 617351 Milliliter(s) IM 05/27/2017 05/27/2017 Inactive testosterone cypionate 200 mg/mL intramuscular oil RxNorm: 663510 Milliliter(s) IM 05/13/2017 05/13/2017 Inactive potassium chloride ER 10 mEq capsule,extended release RxNorm: 715360 1 Capsule(s) PO daily 05/07/2017 11/02/2017 Inactive Vitamin D2 50,000 unit capsule RxNorm: 606796 1 Capsule(s) PO QW 05/06/2017 05/05/2017 Inactive take with OTC vitamin d 2,000 units QD testosterone cypionate 200 mg/mL intramuscular kit RxNorm: 253094 1/2 kit IM 2 x month 05/06/2017 08/27/2017 Inactive Vitamin D2 50,000 unit capsule RxNorm: 612931 1 Capsule(s) PO QW 05/06/2017 08/03/2017 Inactive take with OTC vitamin d 2,000 units QD testosterone cypionate 200 mg/mL intramuscular oil RxNorm: 345653 1/2 Milliliter(s ) IM 04/29/2017 04/29/2017 Inactive fluorouracil 5 % topical cream RxNorm: 094477 1 Application TOP BID 04/28/2017 05/07/2017 Inactive testosterone cypionate 200 mg/mL intramuscular kit RxNorm: 308344 1/2 IM 2 x month 04/28/2017 05/05/2017 Inactive Pamelor 10 mg capsule RxNorm: 844100 1 Capsule(s) PO daily No Start Date Active gabapentin 300 mg capsule RxNorm: 614590 6 Capsule(s) PO daily No Start Date Active cyclobenzaprine 5 mg tablet RxNorm: 557765 1 Tablet(s) PO as needed No Start Date Active diclofenac 1 % topical gel RxNorm: 614714 1 Gram(s) TOP as needed No Start Date Active clopidogrel 75 mg tablet RxNorm: 509497 1 Tablet(s) PO daily No Start Date Active meloxicam 15 mg tablet RxNorm: 855671 1 Tablet(s) PO daily No Start Date 07/30/2017 Inactive potassium chloride ER 10 mEq tablet,extended release RxNorm: 207618 1 Tablet(s) PO daily No Start Date 05/06/2017 Inactive hydrocodone 5 mg-acetaminophen 325 mg tablet RxNorm: 645768 1 Tablet(s) PO daily No Start Date 06/08/2017 Inactive furosemide 40 mg tablet RxNorm: 245623 1 Tablet(s) PO daily No Start Date 07/29/2017 Inactive atorvastatin 40 mg tablet RxNorm: 852675 1 Tablet(s) PO QHS No Start Date 07/29/2017 Inactive Medication Administered Medication Codes Instructions Start Date Status testosterone cypionate 200 mg/mL intramuscular oil RxNorm: 140781 Milliliter 12/15/2017 No longer Active testosterone cypionate 200 mg/mL intramuscular oil RxNorm: 143299 /2Milliliter 12/04/2017 No longer Active testosterone cypionate 200 mg/mL intramuscular oil RxNorm: 580618 /2Milliliter 11/17/2017 No longer Active testosterone cypionate 200 mg/mL intramuscular oil RxNorm: 557829 Milliliter 10/22/2017 No longer Active testosterone cypionate 200 mg/mL intramuscular oil RxNorm: 162527 Milliliter 10/06/2017 No longer Active Kenalog 40 mg/mL suspension for injection RxNorm: 4181615 Milliliter 10/06/2017 No longer Active testosterone cypionate 200 mg/mL intramuscular oil RxNorm: 216686 Milliliter 09/23/2017 No longer Active testosterone cypionate 200 mg/mL intramuscular oil RxNorm: 065574 Milliliter 08/28/2017 No longer Active testosterone cypionate 200 mg/mL intramuscular oil RxNorm: 524847 /2Milliliter 08/12/2017 No longer Active testosterone cypionate 200 mg/mL intramuscular oil RxNorm: 282174 /2Milliliter 07/28/2017 No longer Active testosterone cypionate 200 mg/mL intramuscular oil RxNorm: 870946 /2Milliliter 07/14/2017 No longer Active testosterone cypionate 200 mg/mL intramuscular oil RxNorm: 711572 /2Milliliter 06/26/2017 No longer Active testosterone cypionate 200 mg/mL intramuscular oil RxNorm: 129241 /2Milliliter 06/09/2017 No longer Active testosterone cypionate 200 mg/mL intramuscular oil RxNorm: 149207 Milliliter 05/27/2017 No longer Active testosterone cypionate 200 mg/mL intramuscular oil RxNorm: 843460 Milliliter 05/13/2017 No longer Active testosterone cypionate 200 mg/mL intramuscular oil RxNorm: 817587 /2Milliliter 04/29/2017 No longer Active Immunizations Vaccine [...] ICD-9: 380.4 03/17/2017 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.10 [...] Code Item Item Code Result Date Hepatic Ucy872 ALBUMIN 3.7 g/dL 08/06/2017 Hepatic Hex881 TPRO 5.9 g/dL 08/06/2017 Hepatic Beb297 GLOB 2.2 g/dL 08/06/2017 Hepatic Faj613 A/G Ratio 1.7 Ratio 08/06/2017 Hepatic Lql841 ALK PHOS 46 U/L 08/06/2017 Hepatic Tim356 ALT(SGPT) 9 U/L 08/06/2017 Hepatic Sjr917 AST(SGOT) 13 U/L 08/06/2017 Hepatic Qnw177 BILI T 0.6 mg/dL 08/06/2017 Hepatic Qvb829 BILI D 0.2 mg/dL 08/06/2017 Hepatic Rtd165 BILI I 0.4 mg/dL 08/06/2017 Testosterone Flc063 Testo 474.5 ng/dL 08/06/2017 Cbc With Differential [...] 25.2 % 08/06/2017 Cbc With Differential Ord2 [place]% 11.2 % 08/06/2017 Cbc With Differential Ord2 [...] 1.33 K/ul 08/06/2017 Cbc With Differential Ord2 [place] ABS# 0.6 K/ul 08/06/2017 Cbc With Differential Ord2 Eos ABS# 0.3 K/ul 08/06/2017 Cbc With Differential Ord2 Baso ABS# 0.1 K/ul 08/06/2017 Comp Metabolic Mmr160 NA 140 mEq/L 06/02/2017 Comp Metabolic Gxp006 K 3.8 mEq/L 06/02/2017 Comp Metabolic Gsx917 CL 102 mEq/L 06/02/2017 Comp Metabolic Stw831 CO2 30.0 mEq/L 06/02/2017 Comp Metabolic Qyg542 ANION GAP 12 06/02/2017 Comp Metabolic Gvv756 GLUCOSE 100 mg/dL 06/02/2017 Comp Metabolic Pcu675 Creat 1.1 mg/dL 06/02/2017 Comp Metabolic Egi189 eGFR 69 ml/min/1.73m2 06/02/2017 Comp Metabolic Kgk596 BUN 15 mg/dL 06/02/2017 Comp Metabolic Iex925 B/C Ratio 13.4 Ratio 06/02/2017 Comp Metabolic Sgz309 CALCIUM 8.6 mg/dL 06/02/2017 Comp Metabolic Ngm748 ALK PHOS 63 U/L 06/02/2017 Comp Metabolic Tni941 AST(SGOT) 17 U/L 06/02/2017 Comp Metabolic Oat918 ALT(SGPT) 12 U/L 06/02/2017 Comp Metabolic Cpd089 BILI T 0.5 mg/dL 06/02/2017 Comp Metabolic Yed785 ALBUMIN 3.9 g/dL 06/02/2017 Comp Metabolic Icf210 TPRO 6.1 g/dL 06/02/2017 Comp Metabolic Tyd070 GLOB 2.2 g/dL 06/02/2017 Comp Metabolic Xok779 A/G Ratio 1.8 Ratio 06/02/2017 Comp Metabolic Nae826 Osmo 280 mOsmo 06/02/2017 Vitamin D 25 Oh Hvg9815 VITAMIN D, 25 HYDROXY 40.03 ng/mL Cbc [...] 29.7 pg 06/02/2017 Cbc With Differential Ord2 [place]% 10.5 % 06/02/2017 Cbc With Differential Ord2 [...] 1.52 K/ul 06/02/2017 Cbc With Differential Ord2 [place] ABS# 0.6 K/ul 06/02/2017 Cbc With Differential Ord2 Eos ABS# 0.2 K/ul 06/02/2017 Cbc With Differential Ord2 Baso ABS# 0.1 K/ul 06/02/2017 Testosterone Wgn434 Testo 198.4 ng/dL 04/29/2017 Vitamin D 25 Oh Elm8418 VITAMIN D, 25 HYDROXY 29.25 ng/mL Lipid [...] Procedure Codes Date THER/PROPH/DIAG INJ SC/IM CPT-4: 03269 12/15/2017 THER/PROPH/DIAG INJ SC/IM CPT-4: 21722 12/04/2017 PPPS, SUBSEQ VISIT CPT -4: G0439 11/27/2017 ADMIN INFLUENZA VIRUS VAC CPT-4: G0008 11/17/2017 FLU VAC NO PRSV 4 FATOU 3 YRS+ CPT-4: 20655 11/17/2017 THER/PROPH/DIAG INJ SC/IM CPT-4: 28836 11/17/2017 THER/PROPH/DIAG INJ SC/IM CPT-4: 94467 10/22/2017 THER/PROPH/DIAG INJ SC/IM CPT-4: 23041 10/06/2017 TRIAMCINOLONE ACET INJ NOS CPT-4: J3301 10/06/2017 THER/PROPH/DIAG INJ SC/IM CPT-4: 69728 09/23/2017 THER/PROPH/DIAG INJ SC/IM CPT-4: 32450 08/28/2017 THER/PROPH/DIAG INJ SC/IM CPT-4: 76388 08/12/2017 THER/PROPH/DIAG INJ SC/IM CPT-4: 92000 07/28/2017 THER/PROPH/DIAG INJ SC/IM CPT-4: 61384 07/14/2017 THER/PROPH/DIAG INJ SC/IM CPT-4: 35823 06/26/2017 THER/PROPH/DIAG INJ SC/IM CPT-4: 22763 06/09/2017 THER/PROPH/DIAG INJ SC/IM CPT-4: 82466 05/27/2017 THER/PROPH/DIAG INJ SC/IM CPT-4: 68044 05/13/2017 THER/PROPH/DIAG INJ SC/IM CPT-4: 45332 04/29/2017 Vital Signs Date Vital 12/22/2017 Blood Pressure 1: 124/70 Code : 8480-6 BMI: 29.7 Code : 15095-1 Heart Rate 1 : 84 bpm Height: 5'10" SpO2: 94% Weight: 207 lbs 12/15/2017 Blood Pressure 1: 122/82 Code : 8480-6 BMI: 30.0 Code : 79909-0 Heart Rate 1 : 82 bpm Height: 5'10" SpO2: 93% Weight: 209 lbs 11/27/2017 Blood Pressure 1: 132/68 Code : 8480-6 BMI: 29.3 Code : 13310-5 Heart Rate 1 : 71 bpm Height: 5'10" SpO2: 97% Waist Measure (cm): 97 cm Weight: 204 lbs 11/17/2017 Blood Pressure 1: 130/80 Code : 8480-6 BMI: 29.3 Code : 85590-2 Heart Rate 1 : 73 bpm Height: 5'10" SpO2: 99% Weight: 204 lbs 10/06/2017 Blood Pressure 1: 124/60 Code : 8480-6 BMI: 28.8 Code : 52336-3 Heart Rate 1 : 70 bpm Height: 5'10" SpO2: 98% Weight: 201 lbs 07/24/2017 Blood Pressure 1: 118/70 Code : 8480-6 BMI: 29.3 Code : 97503-6 Heart Rate 1 : 82 bpm Height: 5'10" SpO2: 96% Weight: 204 lbs 07/14/2017 Blood Pressure 1: 118/72 Code : 8480-6 BMI: 29.1 Code : 44709-5 Heart Rate 1 : 83 bpm Height: 5'10" SpO2: 98% Weight: 203 lbs 06/09/2017 Blood Pressure 1: 120/74 Code : 8480-6 BMI: 29.3 Code : 17138-5 Heart Rate 1 : 91 bpm Height: 5'10" SpO2: 99% Weight: 204 lbs 04/28/2017 Blood Pressure 1: 118/68 Code : 8480-6 BMI: 28.8 Code : 85647-4 Heart Rate 1 : 74 bpm Height: 5'10" SpO2: 96% Weight: 201 lbs 03/14/2017 Blood Pressure 1: 114/74 Code : 8480-6 BMI: 28.6 Code : 93494-5 Heart Rate 1 : 77 bpm Height: [...] data Encounters Encounter Performer Location Codes Date ([id number]) [id number] EST. PATIENT, LEVEL III Diagnosis: Spinal stenosis, lumbosacral region[ICD10: M48.07] Diagnosis: Spinal stenosis, cervical region[ICD10: M48.02] Elise Hollis MD, [facility] CPT-4: 49952 12/22/2017 ([id number]) 38288 EST. 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 PATIENT, LEVEL III Diagnosis: Mixed hyperlipidemia[ICD10: E78.2] Diagnosis: Other insomnia[ICD10: G47.09] [facility] CPT- 4: 38961 11/17/2017 [id number] EST. PATIENT, LEVEL III Diagnosis: Acute laryngopharyngitis[ICD10: J06.0] Diagnosis: Other allergic rhinitis[ICD10: J30.89] Sapphire Hollis MD, [facility] CPT-4: 19379 10/06/2017 [id number] EST. PATIENT, LEVEL III Diagnosis: Pain in left shoulder[ICD10: M25.512] Sapphire Hollis MD, [facility] CPT-4: 55403 07/24/2017 ([id number]) 25732 EST. 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] Leora Hollis MD, [facility] CPT-4: 85449 04/28/2017 ([id number]) Miscellaneous no charge Diagnosis: Impacted cerumen, bilateral[ICD10: H61.23] Leora Hollis MD, [facility] CPT-4: 01883 03/17/2017 ([id number]) OFFICE VISIT, NEW - LEVEL 4 Diagnosis: Mixed hyperlipidemia[ICD10: E78.2] Diagnosis: Chronic pain syndrome[ICD10: G89.4] Diagnosis: Presbycusis, bilateral[ICD10: H91.13] Diagnosis: Impacted cerumen, bilateral[ICD10: H61.23] Diagnosis: Atherosclerotic heart disease of [place] coronary artery without angina pectoris[ICD10: I25.10] Diagnosis: Personal history of other diseases of the circulatory system[ICD10: Z86.79] [facility] CPT-4: 92380 2017 Plan of Care Planned Activity Notes Codes Status Date Visit Plan: Cervical and lumbar stenosis -refer for PT to evaluate and treat -follow up with DR Steward as scheduled -refill hydrocodone for prn use only -discussed with patient that he is to use it for breakthrough pain only -patient verbalized understanding of plan. 12/22/2017 Patient Education: Patient Medication Summary Completed 12/22/2017 Visit Plan: Neck and low back pain -will schedule MRI lumbar and cervical spine for further evaluation and proceed as indicated- patient verbalized understanding of plan. 12/15/2017 [facility]ment[facility] [phone] [facility] (15 min) Moderate 12/15/2017 Patient Education: Patient Medication Summary Completed 12/15/2017 Patient Education: Back Pain Completed 12/15/2017 Care Plan: MRI LUMBAR SPINE W/O DYE LOINC : 64432-9 Pending 12/15/2017 Care Plan: MRI NECK SPINE W/O DYE LOINC : 78222-1 Pending 12/15/2017 Appointment: Injection 12/04/2017 Patient Education: [...] surrogate. 11/27/2017 Appointment: Sapphire Oneil [facility] [phone] [facility] [place] [facility] - Annual Wellness Visit 11/27/2017 Patient [...] to sleep 11/17/2017 Appointment: Leora Hollis WPtel: [id number] (15 min) Moderate 11/17/2017 Patient Education: Patient [...] [facility] (15 min) Moderate 10/06/2017 Appointment: Sapphire Oneil [facility] [phone] [facility] [place] (15 min) Moderate 10/06/2017 Patient Education: Patient [...] plan. 07/24/2017 Appointment: Sapphire Oneil [facility] [phone] [facility] (30 min) Complex 07/24/2017 Patient Education: Patient [...] medications. 07/14/2017 Appointment: [facility] [phone] [facility] [place] [place] (15 min) [...] removal 03/14/2017 Appointment: [facility] [phone] [facility] [place] New Patient 03/14/2017 Patient Education: Patient [...] at night REFER FOR PHYSICAL THERAPY AT [facility] -HE HAS A PT HE [...]
--- OUTSIDE RECORDS SUMMARY | 2018-06-12 09:57 | XMS REPORT | CCD ---
Author Author [facility] Organization [facility] Address [address] [place] [address] Phone Care Team Providers Care Conduit Worker Name Role Phone PP Unavailable CCM Unavailable Summary Purpose Interface Exchange Insurance Providers Payer name Policy type / Coverage type Covered constitution party ID Effective Begin Date Effective End Date WPS Medicare Part B Medicare Part B [id number] 2017 Unknown [facility] Medicare Part B [id number] 2017 Unknown Family history Father Diagnosis Age At Onset Heart Attack Unknown Social History Social History Element Codes Description Effective Dates Marital status Unknown 03/14/2017 Number of children Unknown 2 03/14/[address]: 5376548 Former smoker Quit 11/03/00; smoke 1/2 pack/day x15 years 03/14/[address]: 666850642 Never drinks alcohol 03/14/2017 Allergies, Adverse Reactions, Alerts Substance Reaction Codes Entered Date Inactivated Date Status * NO KNOWN ENVIRONMENTAL ALLERGIES Unknown 03/14/2017 No Inactive Date Active * NO KNOWN FOOD ALLERGIES Unknown 03/14/2017 No Inactive Date Active * NO KNOWN DRUG ALLERGIES Unknown 03/14/2017 No Inactive Date Active Past Medical History Illness Codes Condition Status Onset Date Resolved Date Cervicalgia ICD-9: 723.1 ICD-10: M54.2 Active 12/15/2017 [...] Active 03/14/2017 Unknown 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 ICD-10: I25.10 Active 03/14/2017 Unknown Chronic pain syndrome ICD-9: 338.4 ICD-10: G89.4 Active 03/14/2017 Unknown Personal history of other diseases of the circulatory system ICD-9: V12.59 ICD-10: Z86.79 Active 03/14/2017 Unknown Presbycusis, 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 Active 03/14/2017 Unknown Problems Condition Codes Effective Dates Condition Status Cervicalgia ICD-9: 723.1 ICD-10: M54.2 12/15/2017 Active [...] H61.23 03/14/2017 Active 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 ICD-10: I25.10 03/14/2017 Active Chronic pain syndrome ICD-9: 338.4 ICD-10: G89.4 03/14/2017 Active Personal history of other diseases of the circulatory system ICD-9: V12.59 ICD-10: Z86.79 03/14/2017 Active Presbycusis, 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 03/14/2017 Active Medications Medication Codes Instructions Start Date Stop Date Status Fill Instructions zolpidem 5 mg tablet RxNorm: 095965 1 Tablet(s) PO 30 min before QHS 12/15/2017 02/12/2018 Active testosterone cypionate 200 mg/mL intramuscular oil RxNorm: 179854 Milliliter(s) IM 12/15/2017 12/15/2017 Inactive testosterone cypionate 200 mg/mL intramuscular oil RxNorm: 424187 1/2 Milliliter(s ) IM 12/04/2017 12/04/2017 Inactive testosterone cypionate 200 mg/mL intramuscular oil RxNorm: 254701 1/2 Milliliter(s ) IM 11/17/2017 11/17/2017 Inactive potassium chloride ER 10 mEq capsule,extended release RxNorm: 917786 TAKE ONE CAPSULE BY MOUTH DAILY 11/11/20172018 Active testosterone cypionate 200 mg/mL intramuscular oil RxNorm: 502375 Milliliter(s) IM 10/22/2017 10/22/2017 Inactive zolpidem 5 mg tablet RxNorm: 693717 1 Tablet(s) PO 30 min before QHS 10/15/2017 10/14/2017 Inactive zolpidem 5 mg tablet RxNorm: 926104 1 Tablet(s) PO 30 min before QHS 10/15/2017 12/13/2017 Inactive Zithromax Z-Timothy 250 mg tablet RxNorm: 157912 1 Tablet(s) PO UD 10/07/2017 11/16/2017 Inactive testosterone cypionate 200 mg/mL intramuscular oil RxNorm: 191722 Milliliter(s) IM 10/06/2017 10/06/2017 Inactive Kenalog 40 mg/mL suspension for injection RxNorm: 0946143 Milliliter(s) Inj 10/06/2017 10/06/2017 Inactive Zithromax Z-Timothy 250 mg tablet RxNorm: 422576 1 Tablet(s) PO UD 10/06/2017 10/06/2017 Inactive testosterone cypionate 200 mg/mL intramuscular oil RxNorm: 757863 Milliliter(s) IM 09/23/2017 09/23/2017 Inactive testosterone cypionate 200 mg/mL intramuscular kit RxNorm: 545904 1/2 Milliliter(s ) IM [id number] 08/28/2017 02/23/2018 Active meloxicam 15 mg tablet RxNorm: 942546 TAKE ONE TABLET BY MOUTH DAILY 08/28/2017 05/24/2018 Active testosterone cypionate 200 mg/mL intramuscular oil RxNorm: 324743 Milliliter(s) IM 08/28/2017 08/28/2017 Inactive testosterone cypionate 200 mg/mL intramuscular oil RxNorm: 623239 1/2 Milliliter(s ) IM 08/12/2017 08/12/2017 Inactive meloxicam 15 mg tablet RxNorm: 697648 1 Tablet(s) PO daily 08/201708/27/2017 Inactive atorvastatin 40 mg tablet RxNorm: 809310 TAKE ONE TABLET BY MOUTH DAILY 07/30/2017 02/24/2018 Active furosemide 40 mg tablet RxNorm: 438009 TAKE ONE TABLET BY MOUTH DAILY 07/30/2017 02/24/2018 Active testosterone cypionate 200 mg/mL intramuscular oil RxNorm: 698642 1/2 Milliliter(s ) IM 07/28/2017 07/28/2017 Inactive testosterone cypionate 200 mg/mL intramuscular oil RxNorm: 448678 1/2 Milliliter(s ) IM 07/14/2017 07/14/2017 Inactive testosterone cypionate 200 mg/mL intramuscular oil RxNorm: 534726 1/2 Milliliter(s ) IM 06/26/2017 06/26/2017 Inactive hydrocodone 5 mg-acetaminophen 325 mg tablet RxNorm: 534227 1 Tablet(s) PO QHS and 1 tab PO daily PRN pain 06/09/2017 Inactive hydrocodone 5 mg-acetaminophen 325 mg tablet RxNorm: 043263 1 Tablet(s) PO daily 06/09/2017 06/18/2017 Inactive testosterone cypionate 200 mg/mL intramuscular oil RxNorm: 298681 1/2 Milliliter(s ) IM 06/09/2017 06/09/2017 Inactive testosterone cypionate 200 mg/mL intramuscular oil RxNorm: 132829 Milliliter(s) IM 05/27/2017 05/27/2017 Inactive testosterone cypionate 200 mg/mL intramuscular oil RxNorm: 030847 Milliliter(s) IM 05/13/2017 05/13/2017 Inactive potassium chloride ER 10 mEq capsule,extended release RxNorm: 018193 1 Capsule(s) PO daily 05/07/2017 11/02/2017 Inactive Vitamin D2 50,000 unit capsule RxNorm: 844004 1 Capsule(s) PO QW 05/06/2017 05/05/2017 Inactive take with OTC vitamin d 2,000 units QD testosterone cypionate 200 mg/mL intramuscular kit RxNorm: 862528 1/2 kit IM 2 x month 05/06/2017 08/27/2017 Inactive Vitamin D2 50,000 unit capsule RxNorm: 657318 1 Capsule(s) PO QW 05/06/2017 08/03/2017 Inactive take with OTC vitamin d 2,000 units QD testosterone cypionate 200 mg/mL intramuscular oil RxNorm: 909223 1/2 Milliliter(s ) IM 04/29/2017 04/29/2017 Inactive fluorouracil 5 % topical cream RxNorm: 287131 1 Application TOP BID 04/28/2017 05/07/2017 Inactive testosterone cypionate 200 mg/mL intramuscular kit RxNorm: 234238 1/2 IM 2 x month 04/28/2017 05/05/2017 Inactive Pamelor 10 mg capsule RxNorm: 551878 1 Capsule(s) PO daily No Start Date Active gabapentin 300 mg capsule RxNorm: 252493 6 Capsule(s) PO daily No Start Date Active cyclobenzaprine 5 mg tablet RxNorm: 100502 1 Tablet(s) PO as needed No Start Date Active diclofenac 1 % topical gel RxNorm: 186129 1 Gram(s) TOP as needed No Start Date Active clopidogrel 75 mg tablet RxNorm: 160320 1 Tablet(s) PO daily No Start Date Active meloxicam 15 mg tablet RxNorm: 955192 1 Tablet(s) PO daily No Start Date 07/30/2017 Inactive potassium chloride ER 10 mEq tablet,extended release RxNorm: 788442 1 Tablet(s) PO daily No Start Date 05/06/2017 Inactive hydrocodone 5 mg-acetaminophen 325 mg tablet RxNorm: 590332 1 Tablet(s) PO daily No Start Date 06/08/2017 Inactive furosemide 40 mg tablet RxNorm: 074718 1 Tablet(s) PO daily No Start Date 07/29/2017 Inactive atorvastatin 40 mg tablet RxNorm: 086766 1 Tablet(s) PO QHS No Start Date 07/29/2017 Inactive Medication Administered Medication Codes Instructions Start Date Status testosterone cypionate 200 mg/mL intramuscular oil RxNorm: 801968 Milliliter 12/15/2017 Active testosterone cypionate 200 mg/mL intramuscular oil RxNorm: 317085 /2Milliliter 12/04/2017 No longer Active testosterone cypionate 200 mg/mL intramuscular oil RxNorm: 794285 /2Milliliter 11/17/2017 No longer Active testosterone cypionate 200 mg/mL intramuscular oil RxNorm: 036471 Milliliter 10/22/2017 No longer Active testosterone cypionate 200 mg/mL intramuscular oil RxNorm: 644492 Milliliter 10/06/2017 No longer Active Kenalog 40 mg/mL suspension for injection RxNorm: 0121339 Milliliter 10/06/2017 No longer Active testosterone cypionate 200 mg/mL intramuscular oil RxNorm: 934587 Milliliter 09/23/2017 No longer Active testosterone cypionate 200 mg/mL intramuscular oil RxNorm: 925825 Milliliter 08/28/2017 No longer Active testosterone cypionate 200 mg/mL intramuscular oil RxNorm: 369531 /2Milliliter 08/12/2017 No longer Active testosterone cypionate 200 mg/mL intramuscular oil RxNorm: 140423 /2Milliliter 07/28/2017 No longer Active testosterone cypionate 200 mg/mL intramuscular oil RxNorm: 443631 /2Milliliter 07/14/2017 No longer Active testosterone cypionate 200 mg/mL intramuscular oil RxNorm: 180321 illiliter 06/26/2017 No longer Active testosterone cypionate 200 mg/mL intramuscular oil RxNorm: 440057 /2Milliliter 06/09/2017 No longer Active testosterone cypionate 200 mg/mL intramuscular oil RxNorm: 202665 Milliliter 05/27/2017 No longer Active testosterone cypionate 200 mg/mL intramuscular oil RxNorm: 979688 Milliliter 05/13/2017 No longer Active testosterone cypionate 200 mg/mL intramuscular oil RxNorm: 800488 2Milliliter 04/29/2017 No longer Active Immunizations Vaccine Codes Date Status Influenza CVX: 141 11/17/2017 completed Assessments Condition Codes Effective Dates Cervicalgia ICD-10: M54.2 ICD-9: 723.1 12/15/2017 Testicular [...] ICD-9: 380.4 03/17/2017 Atherosclerotic heart disease of [place] coronary artery without angina pectoris ICD-10: I25.10 ICD-9: 414.00 03/14/2017 Chronic pain syndrome ICD-10: G89.4 ICD-9: 338.4 03/14/2017 Personal history of other diseases of the circulatory system ICD-10: Z86.79 ICD-9: V12.59 03/14/2017 Presbycusis, bilateral ICD-10: H91.13 ICD-9: 388.01 03/14/2017 Reason For Visit Reason For Visit Effective Dates Notes back pain 12/15/2017 Annual Medicare Wellness Exam 11/27/2017 shoulder pain 11/17/2017 sinus congestion 10/06/2017 shoulder pain 07/24/2017 abnormal test results 07/14/2017 fatigue 06/09/2017 fatigue 04/28/2017 hyperlipidemia 03/14/2017 R ear Results Observation Observation Code Item Item Code Result Date Hepatic Zqb025 ALBUMIN 3.7 g/dL 08/06/2017 Hepatic Uqe510 TPRO 5.9 g/dL 08/06/2017 Hepatic Yge114 GLOB 2.2 g/dL 08/06/2017 Hepatic Xes572 A/G Ratio 1.7 Ratio 08/06/2017 Hepatic Rem398 ALK PHOS 46 U/L 08/06/2017 Hepatic Egt643 ALT(SGPT) 9 U/L 08/06/2017 Hepatic Ifv402 AST(SGOT) 13 U/L 08/06/2017 Hepatic Nfq265 BILI T 0.6 mg/dL 08/06/2017 Hepatic Znn841 BILI D 0.2 mg/dL 08/06/2017 Hepatic Mye715 BILI I 0.4 mg/dL 08/06/2017 Testosterone Cxj719 Testo 474.5 ng/dL 08/06/2017 Cbc With Differential [...] 25.2 % 08/06/2017 Cbc With Differential Ord2 [place]% 11.2 % 08/06/2017 Cbc With Differential Ord2 [...] 1.33 K/ul 08/06/2017 Cbc With Differential Ord2 [place] ABS# 0.6 K/ul 08/06/2017 Cbc With Differential Ord2 Eos ABS# 0.3 K/ul 08/06/2017 Cbc With Differential Ord2 Baso ABS# 0.1 K/ul 08/06/2017 Comp Metabolic Rcw620 NA 140 mEq/L 06/02/2017 Comp Metabolic Mst642 K 3.8 mEq/L 06/02/2017 Comp Metabolic Fhh785 CL 102 mEq/L 06/02/2017 Comp Metabolic Jzq136 CO2 30.0 mEq/L 06/02/2017 Comp Metabolic Kky155 ANION GAP 12 06/02/2017 Comp Metabolic Atb345 GLUCOSE 100 mg/dL 06/02/2017 Comp Metabolic Vkl775 Creat 1.1 mg/dL 06/02/2017 Comp Metabolic Hxo327 eGFR 69 ml/min/1.73m2 06/02/2017 Comp Metabolic Wyu575 BUN 15 mg/dL 06/02/2017 Comp Metabolic Cdu572 B/C Ratio 13.4 Ratio 06/02/2017 Comp Metabolic Uht078 CALCIUM 8.6 mg/dL 06/02/2017 Comp Metabolic Xpn170 ALK PHOS 63 U/L 06/02/2017 Comp Metabolic Zpy303 AST(SGOT) 17 U/L 06/02/2017 Comp Metabolic Jii959 ALT(SGPT) 12 U/L 06/02/2017 Comp Metabolic Tje063 BILI T 0.5 mg/dL 06/02/2017 Comp Metabolic Ppi153 ALBUMIN 3.9 g/dL 06/02/2017 Comp Metabolic Rmf013 TPRO 6.1 g/dL 06/02/2017 Comp Metabolic Bzb343 GLOB 2.2 g/dL 06/02/2017 Comp Metabolic Mnb572 A/G Ratio 1.8 Ratio 06/02/2017 Comp Metabolic Ozm008 Osmo 280 mOsmo 06/02/2017 Vitamin D 25 Oh Eoc1086 VITAMIN D, 25 HYDROXY 40.03 ng/mL Cbc [...] 29.7 pg 06/02/2017 Cbc With Differential Ord2 [place]% 10.5 % 06/02/2017 Cbc With Differential Ord2 [...] 1.52 K/ul 06/02/2017 Cbc With Differential Ord2 [place] ABS# 0.6 K/ul 06/02/2017 Cbc With Differential Ord2 Eos ABS# 0.2 K/ul 06/02/2017 Cbc With Differential Ord2 Baso ABS# 0.1 K/ul 06/02/2017 Testosterone Cys515 Testo 198.4 ng/dL 04/29/2017 Vitamin D 25 Oh Rut5440 VITAMIN D, 25 HYDROXY 29.25 ng/mL Lipid [...] Procedure Codes Date THER/PROPH/DIAG INJ SC/IM CPT-4: 46424 12/15/2017 THER/PROPH/DIAG INJ SC/IM CPT-4: 98750 12/04/2017 PPPS, SUBSEQ VISIT CPT -4: G0439 11/27/2017 ADMIN INFLUENZA VIRUS VAC CPT-4: G0008 11/17/2017 FLU VAC NO PRSV 4 FATOU 3 YRS+ CPT-4: 61942 11/17/2017 THER/PROPH/DIAG INJ SC/IM CPT-4: 98295 11/17/2017 THER/PROPH/DIAG INJ SC/IM CPT-4: 56465 10/22/2017 THER/PROPH/DIAG INJ SC/IM CPT-4: 53191 10/06/2017 TRIAMCINOLONE ACET INJ NOS CPT-4: J3301 10/06/2017 THER/PROPH/DIAG INJ SC/IM CPT-4: 26969 09/23/2017 THER/PROPH/DIAG INJ SC/IM CPT-4: 40951 08/28/2017 THER/PROPH/DIAG INJ SC/IM CPT-4: 92318 08/12/2017 THER/PROPH/DIAG INJ SC/IM CPT-4: 37647 07/28/2017 THER/PROPH/DIAG INJ SC/IM CPT-4: 35991 07/14/2017 THER/PROPH/DIAG INJ SC/IM CPT-4: 28004 06/26/2017 THER/PROPH/DIAG INJ SC/IM CPT-4: 08822 06/09/2017 THER/PROPH/DIAG INJ SC/IM CPT-4: 87918 05/27/2017 THER/PROPH/DIAG INJ SC/IM CPT-4: 53698 05/13/2017 THER/PROPH/DIAG INJ SC/IM CPT-4: 73485 04/29/2017 Vital Signs Date Vital 12/15/2017 Blood Pressure 1: 122/82 Code : 8480-6 BMI: 30.0 Code : 03749-1 Heart Rate 1 : 82 bpm Height: 5'10" SpO2: 93% Weight: 209 lbs 11/27/2017 Blood Pressure 1: 132/68 Code : 8480-6 BMI: 29.3 Code : 83091-5 Heart Rate 1 : 71 bpm Height: 5'10" SpO2: 97% Waist Measure (cm): 97 cm Weight: 204 lbs 11/17/2017 Blood Pressure 1: 130/80 Code : 8480-6 BMI: 29.3 Code : 38771-0 Heart Rate 1 : 73 bpm Height: 5'10" SpO2: 99% Weight: 204 lbs 10/06/2017 Blood Pressure 1: 124/60 Code : 8480-6 BMI: 28.8 Code : 90710-7 Heart Rate 1 : 70 bpm Height: 5'10" SpO2: 98% Weight: 201 lbs 07/24/2017 Blood Pressure 1: 118/70 Code : 8480-6 BMI: 29.3 Code : 40597-0 Heart Rate 1 : 82 bpm Height: 5'10" SpO2: 96% Weight: 204 lbs 07/14/2017 Blood Pressure 1: 118/72 Code : 8480-6 BMI: 29.1 Code : 85770-5 Heart Rate 1 : 83 bpm Height: 5'10" SpO2: 98% Weight: 203 lbs 06/09/2017 Blood Pressure 1: 120/74 Code : 8480-6 BMI: 29.3 Code : 82403-7 Heart Rate 1 : 91 bpm Height: 5'10" SpO2: 99% Weight: 204 lbs 04/28/2017 Blood Pressure 1: 118/68 Code : 8480-6 BMI: 28.8 Code : 16615-2 Heart Rate 1 : 74 bpm Height: 5'10" SpO2: 96% Weight: 201 lbs 03/14/2017 Blood Pressure 1: 114/74 Code : 8480-6 BMI: 28.6 Code : 88585-4 Heart Rate 1 : 77 bpm Height: 5'10" SpO2: 97% Weight: 199 lbs Functional Status No Functional Status data History of Present Illness Symptom Name Status Result Effective Date Notes back pain Location lumbar-sacral spine 12/15/2017 None [...] data Encounters Encounter Performer Location Codes Date ([id number]) [id number] EST. 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 PATIENT, LEVEL III Diagnosis: Mixed hyperlipidemia[ICD10: E78.2] Diagnosis: Other insomnia[ICD10: G47.09] Leora Hollis MD, [facility] CPT- 4: 31353 11/17/2017 [id number] EST. PATIENT, LEVEL III Diagnosis: Acute laryngopharyngitis[ICD10: J06.0] Diagnosis: Other allergic rhinitis[ICD10: J30.89] Sapphire Hollis MD, [facility] CPT-4: 80211 10/06/2017 [id number] EST. PATIENT, LEVEL III Diagnosis: Pain in left shoulder[ICD10: M25.512] Sapphire Hollis MD, [facility] CPT-4: 72552 07/24/2017 ([id number]) 82399 EST. 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] Leora Hollis MD, [facility] CPT-4: 46276 04/28/2017 ([id number]) Miscellaneous no charge Diagnosis: Impacted cerumen, bilateral[ICD10: H61.23] Leora Hollis MD, [facility] CPT-4: 50090 03/17/2017 ([id number]) OFFICE VISIT, NEW - LEVEL 4 Diagnosis: Mixed hyperlipidemia[ICD10: E78.2] Diagnosis: Chronic pain syndrome[ICD10: G89.4] Diagnosis: Presbycusis, bilateral[ICD10: H91.13] Diagnosis: Impacted cerumen, bilateral[ICD10: H61.23] Diagnosis: Atherosclerotic heart disease of [place] coronary artery without angina pectoris[ICD10: I25.10] Diagnosis: Personal history of other diseases of the circulatory system[ICD10: Z86.79] [facility] CPT-4: 71657 2017 Plan of Care Planned Activity Notes Codes Status Date Visit Plan: Neck and low back pain -will schedule MRI lumbar and cervical spine for further evaluation and proceed as indicated- patient verbalized understanding of plan. 12/15/2017 Patient Education: Patient Medication Summary Completed 12/15/2017 Patient Education: Back Pain Completed 12/15/2017 Care Plan: MRI LUMBAR SPINE W/O DYE LOINC : 68294-8 Pending 12/15/2017 Care Plan: MRI NECK SPINE W/O DYE LOINC : 02556-7 Pending 12/15/2017 Appointment: Injection 12/04/2017 Patient Education: [...] surrogate. 11/27/2017 [facility] [phone] [facility] [facility] - Annual Wellness Visit 11/27/2017 Patient [...] sleep 11/17/2017 Appointment: Leora Hollis WPtel: [phone] [facility] (15 min) Moderate 11/17/2017 Patient Education: [...] spray. 10/06/2017 [phone] [facility] ([facility] min) Moderate 10/06/2017 App[facility]ment[facility]apphire [facility]il [facility] [phone] [facility] (15 min) Moderate 10/06/2017 Patient Education: [...] [facility]: [facility] [place] (30 min) Complex 07/24/2017 Patient [...] to medications. 07/14/2017 Appointment: [facility] [phone] [facility] [place] (15 min) Moderate 07/14/2017 Patient Education: Patient Medication Summary Completed 07/14/2017 Appointment: Leora Hollis [facility] [place] (15 min) Moderate 07/10/2017 Appointment: [...] at night 06/09/2017 Appointment: Leora Hollis [facility]el[facility] (30 min) Complex 06/09/2017 Patient Education: [...] 15 04/28/2017 Appointment: Leora Hollis WPtel: [phone] [facility] (30 min) Complex 04/28/2017 Patient Education: [...] removal 03/14/2017 Appointment: Leora Hollis WPtel: [phone] [facility] New Patient 03/14/2017 Patient Education: Patient [...]
--- OUTSIDE RECORDS SUMMARY | 2018-06-12 09:58 | XMS REPORT | CCD ---
Author Author Leora Hollis Organization [facility] Address [address] [place] [address] Phone Care Team Providers Care Senior Software Engineer Analytics Name Role Phone PP Unavailable CCM Unavailable Summary Purpose Interface Exchange Insurance Providers Payer name Policy type / Coverage type Covered alliance party ID Effective Begin Date Effective End Date WPS Medicare Part B Medicare Part B [id number] 2017 Unknown [facility] Medicare Part B [id number] 2017 Unknown Family history Father Diagnosis Age At Onset Heart Attack Unknown Social History Social History Element Codes Description Effective Dates Marital status Unknown 03/14/2017 Number of children Unknown 2 03/14/[address]: 4635025 Former smoker Quit 11/03/00; smoke 1/2 pack/day x15 years 03/14/[address]: 440688056 Never drinks alcohol 03/14/2017 Allergies, Adverse Reactions, [...] ICD-9: 477.8 ICD-10: J30.89 Active 10/06/2017 Unknown 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 Active 04/28/2017 Unknown Pain in left shoulder ICD-9: 719.41 ICD-10: M25.512 Active 07/24/2017 Unknown Chronic obstructive pulmonary disease, unspecified ICD-9: 496 ICD-10: J44.9 Active 07/14/2017 Unknown Mixed hyperlipidemia ICD-9: 272.2 ICD-10: E78.2 Active 03/14/2017 Unknown Hypoxemia ICD-9: 799.02 ICD-10: R09.02 Active 06/09/2017 Unknown 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 ICD-10: G47.14 Active 04/28/2017 Unknown Secondary polycythemia ICD-9: 238.4 ICD-10: D75.1 Active 04/28/2017 Unknown Impacted cerumen, bilateral ICD-9: 380.4 ICD-10: H61.23 Active 03/14/2017 Unknown 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 [...] rhinitis ICD-9: 477.8 ICD-10: J30.89 10/06/2017 Active 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 04/28/2017 Active Pain in left shoulder ICD-9: 719.41 ICD-10: M25.512 07/24/2017 Active Chronic obstructive pulmonary disease, unspecified ICD-9: 496 ICD-10: J44.9 07/14/2017 Active Mixed hyperlipidemia ICD-9: 272.2 ICD-10: E78.2 03/14/2017 Active Hypoxemia ICD-9: 799.02 ICD-10: R09.02 06/09/2017 Active 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 ICD-10: G47.14 04/28/2017 Active Secondary polycythemia ICD-9: 238.4 ICD-10: D75.1 04/28/2017 Active Impacted cerumen, bilateral ICD-9: 380.4 ICD-10: H61.23 03/14/2017 Active 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 ICD-10: I25.10 03/14/2017 Active Chronic pain syndrome ICD-9: 338.4 ICD-10: G89.4 03/14/2017 Active Personal history of other diseases of the circulatory system ICD-9: V12.59 ICD-10: Z86.79 03/14/2017 Active Presbycusis, 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 03/14/2017 Active Medications Medication Codes Instructions Start Date Stop Date Status Fill Instructions zolpidem 5 mg tablet RxNorm: 128472 1 Tablet(s) PO 30 min before QHS 10/15/2017 12/13/2017 Active zolpidem 5 mg tablet RxNorm: 052209 1 Tablet(s) PO 30 min before QHS 10/15/2017 10/14/2017 Inactive Zithromax Z-Timothy 250 mg tablet RxNorm: 489713 1 Tablet(s) PO UD 10/07/2017 No Stop Date Active testosterone cypionate 200 mg/mL intramuscular oil RxNorm: 430266 Milliliter(s) IM 10/06/2017 10/06/2017 Inactive Kenalog 40 mg/mL suspension for injection RxNorm: 6457879 Milliliter(s) Inj 10/06/2017 10/06/2017 Inactive Zithromax Z-Timothy 250 mg tablet RxNorm: 575290 1 Tablet(s) PO UD 10/06/2017 10/06/2017 Inactive testosterone cypionate 200 mg/mL intramuscular oil RxNorm: 584789 Milliliter(s) IM 09/23/2017 09/23/2017 Inactive testosterone cypionate 200 mg/mL intramuscular kit RxNorm: 917233 1/2 Milliliter(s ) IM [id number] 08/28/2017 02/23/2018 Active meloxicam 15 mg tablet RxNorm: 422908 TAKE ONE TABLET BY MOUTH DAILY 08/28/2017 05/24/2018 Active testosterone cypionate 200 mg/mL intramuscular oil RxNorm: 808276 Milliliter(s) IM 08/28/2017 08/28/2017 Inactive testosterone cypionate 200 mg/mL intramuscular oil RxNorm: 911322 1/2 Milliliter(s ) IM 08/12/2017 08/12/2017 Inactive meloxicam 15 mg tablet RxNorm: 481453 1 Tablet(s) PO daily 08/201708/27/2017 Inactive atorvastatin 40 mg tablet RxNorm: 142608 TAKE ONE TABLET BY MOUTH DAILY 07/30/2017 02/24/2018 Active furosemide 40 mg tablet RxNorm: 308532 TAKE ONE TABLET BY MOUTH DAILY 07/30/2017 02/24/2018 Active testosterone cypionate 200 mg/mL intramuscular oil RxNorm: 432042 1/2 Milliliter(s ) IM 07/28/2017 07/28/2017 Inactive testosterone cypionate 200 mg/mL intramuscular oil RxNorm: 270811 1/2 Milliliter(s ) IM 07/14/2017 07/14/2017 Inactive testosterone cypionate 200 mg/mL intramuscular oil RxNorm: 391977 1/2 Milliliter(s ) IM 06/26/2017 06/26/2017 Inactive hydrocodone 5 mg-acetaminophen 325 mg tablet RxNorm: 822251 1 Tablet(s) PO QHS and 1 tab PO daily PRN pain 06/09/2017 Inactive hydrocodone 5 mg-acetaminophen 325 mg tablet RxNorm: 661457 1 Tablet(s) PO daily 06/09/2017 06/18/2017 Inactive testosterone cypionate 200 mg/mL intramuscular oil RxNorm: 241991 1/2 Milliliter(s ) IM 06/09/2017 06/09/2017 Inactive testosterone cypionate 200 mg/mL intramuscular oil RxNorm: 154025 Milliliter(s) IM 05/27/2017 05/27/2017 Inactive testosterone cypionate 200 mg/mL intramuscular oil RxNorm: 451677 Milliliter(s) IM 05/13/2017 05/13/2017 Inactive potassium chloride ER 10 mEq capsule,extended release RxNorm: 787924 1 Capsule(s) PO daily 05/07/2017 11/02/2017 Active Vitamin D2 50,000 unit capsule RxNorm: 723078 1 Capsule(s) PO QW 05/06/2017 05/05/2017 Inactive take with OTC vitamin d 2,000 units QD testosterone cypionate 200 mg/mL intramuscular kit RxNorm: 410249 1/2 kit IM 2 x month 05/06/2017 08/27/2017 Inactive Vitamin D2 50,000 unit capsule RxNorm: 247739 1 Capsule(s) PO QW 05/06/2017 08/03/2017 Inactive take with OTC vitamin d 2,000 units QD testosterone cypionate 200 mg/mL intramuscular oil RxNorm: 399527 1/2 Milliliter(s ) IM 04/29/2017 04/29/2017 Inactive fluorouracil 5 % topical cream RxNorm: 750023 1 Application TOP BID 04/28/2017 05/07/2017 Inactive testosterone cypionate 200 mg/mL intramuscular kit RxNorm: 875072 1/2 IM 2 x month 04/28/2017 05/05/2017 Inactive Pamelor 10 mg capsule RxNorm: 943502 1 Capsule(s) PO daily No Start Date Active gabapentin 300 mg capsule RxNorm: 740566 6 Capsule(s) PO daily No Start Date Active cyclobenzaprine 5 mg tablet RxNorm: 961376 1 Tablet(s) PO as needed No Start Date Active diclofenac 1 % topical gel RxNorm: 592234 1 Gram(s) TOP as needed No Start Date Active clopidogrel 75 mg tablet RxNorm: 874179 1 Tablet(s) PO daily No Start Date Active meloxicam 15 mg tablet RxNorm: 251816 1 Tablet(s) PO daily No Start Date 07/30/2017 Inactive potassium chloride ER 10 mEq tablet,extended release RxNorm: 776682 1 Tablet(s) PO daily No Start Date 05/06/2017 Inactive hydrocodone 5 mg-acetaminophen 325 mg tablet RxNorm: 947255 1 Tablet(s) PO daily No Start Date 06/08/2017 Inactive furosemide 40 mg tablet RxNorm: 069700 1 Tablet(s) PO daily No Start Date 07/29/2017 Inactive atorvastatin 40 mg tablet RxNorm: 500075 1 Tablet(s) PO QHS No Start Date 07/29/2017 Inactive Medication Administered Medication Codes Instructions Start Date Status testosterone cypionate 200 mg/mL intramuscular oil RxNorm: 203746 Milliliter 10/06/2017 No longer Active Kenalog 40 mg/mL suspension for injection RxNorm: 0206871 Milliliter 10/06/2017 No longer Active testosterone cypionate 200 mg/mL intramuscular oil RxNorm: 495211 Milliliter 09/23/2017 No longer Active testosterone cypionate 200 mg/mL intramuscular oil RxNorm: 757668 Milliliter 08/28/2017 No longer Active testosterone cypionate 200 mg/mL intramuscular oil RxNorm: 827136 /2Milliliter 08/12/2017 No longer Active testosterone cypionate 200 mg/mL intramuscular oil RxNorm: 071414 /2Milliliter 07/28/2017 No longer Active testosterone cypionate 200 mg/mL intramuscular oil RxNorm: 325821 2Milliliter 07/14/2017 No longer Active testosterone cypionate 200 mg/mL intramuscular oil RxNorm: 649467 2Milliliter 06/26/2017 No longer Active testosterone cypionate 200 mg/mL intramuscular oil RxNorm: 031279 2Milliliter 06/09/2017 No longer Active testosterone cypionate 200 mg/mL intramuscular oil RxNorm: 292076 Milliliter 05/27/2017 No longer Active testosterone cypionate 200 mg/mL intramuscular oil RxNorm: 627257 Milliliter 05/13/2017 No longer Active testosterone cypionate 200 mg/mL intramuscular oil RxNorm: 621378 illiliter 04/29/2017 No longer Active Immunizations No Immunization data Assessments Condition Codes Effective Dates Other allergic rhinitis ICD-10: J30.89 ICD-9: 477.8 10/06/2017 Acute laryngopharyngitis ICD-10: J06.0 ICD-9: 465.0 10/06/2017 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 ICD-9: 257.2 09/23/2017 Pain in left shoulder ICD-10: M25.512 ICD-9: 719.41 07/24/2017 Mixed hyperlipidemia ICD-10: E78.2 ICD-9: 272.2 07/14/2017 Chronic obstructive pulmonary disease, unspecified ICD-10: J44.9 ICD-9: 496 07/14/2017 Hypoxemia ICD-10: R09.02 ICD-9: 799.02 06/09/2017 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 ICD-9: 327.14 04/28/2017 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 ICD-9: 238.4 04/28/2017 Impacted cerumen, bilateral ICD-10: H61.23 ICD-9: 380.4 03/17/2017 Atherosclerotic heart disease of [place] coronary artery without angina pectoris ICD-10: I25.10 ICD-9: 414.00 03/14/2017 Chronic pain syndrome ICD-10: G89.4 ICD-9: 338.4 03/14/2017 Personal history of other diseases of the circulatory system ICD-10: Z86.79 ICD-9: V12.59 03/14/2017 Presbycusis, bilateral ICD-10: H91.13 ICD-9: 388.01 03/14/2017 Reason For Visit Reason For Visit Effective Dates Notes sinus congestion 10/06/2017 shoulder pain 07/24/2017 abnormal test results 07/14/2017 fatigue 06/09/2017 fatigue 04/28/2017 hyperlipidemia 03/14/2017 R ear Results Observation Observation Code Item Item Code Result Date Hepatic Hvi663 ALBUMIN 3.7 g/dL 08/06/2017 Hepatic Qzi893 TPRO 5.9 g/dL 08/06/2017 Hepatic Kfe106 GLOB 2.2 g/dL 08/06/2017 Hepatic Qsa429 A/G Ratio 1.7 Ratio 08/06/2017 Hepatic Ahp315 ALK PHOS 46 U/L 08/06/2017 Hepatic Idq524 ALT(SGPT) 9 U/L 08/06/2017 Hepatic Vqj158 AST(SGOT) 13 U/L 08/06/2017 Hepatic Reo482 BILI T 0.6 mg/dL 08/06/2017 Hepatic Hco482 BILI D 0.2 mg/dL 08/06/2017 Hepatic Umg117 BILI I 0.4 mg/dL 08/06/2017 Testosterone Vsr502 Testo 474.5 ng/dL 08/06/2017 Cbc With Differential [...] 25.2 % 08/06/2017 Cbc With Differential Ord2 [place]% 11.2 % 08/06/2017 Cbc With Differential Ord2 [...] 1.33 K/ul 08/06/2017 Cbc With Differential Ord2 [place] ABS# 0.6 K/ul 08/06/2017 Cbc With Differential Ord2 Eos ABS# 0.3 K/ul 08/06/2017 Cbc With Differential Ord2 Baso ABS# 0.1 K/ul 08/06/2017 Comp Metabolic Rhr662 NA 140 mEq/L 06/02/2017 Comp Metabolic Cdv345 K 3.8 mEq/L 06/02/2017 Comp Metabolic Ltp888 CL 102 mEq/L 06/02/2017 Comp Metabolic Trm291 CO2 30.0 mEq/L 06/02/2017 Comp Metabolic Vsj603 ANION GAP 12 06/02/2017 Comp Metabolic Mif279 GLUCOSE 100 mg/dL 06/02/2017 Comp Metabolic Aum281 Creat 1.1 mg/dL 06/02/2017 Comp Metabolic Giq106 eGFR 69 ml/min/1.73m2 06/02/2017 Comp Metabolic Wvj936 BUN 15 mg/dL 06/02/2017 Comp Metabolic Dvi981 B/C Ratio 13.4 Ratio 06/02/2017 Comp Metabolic Cpl826 CALCIUM 8.6 mg/dL 06/02/2017 Comp Metabolic Tpr063 ALK PHOS 63 U/L 06/02/2017 Comp Metabolic Imq980 AST(SGOT) 17 U/L 06/02/2017 Comp Metabolic Zil314 ALT(SGPT) 12 U/L 06/02/2017 Comp Metabolic Ttz400 BILI T 0.5 mg/dL 06/02/2017 Comp Metabolic Lms557 ALBUMIN 3.9 g/dL 06/02/2017 Comp Metabolic Hum213 TPRO 6.1 g/dL 06/02/2017 Comp Metabolic Lzh478 GLOB 2.2 g/dL 06/02/2017 Comp Metabolic Fpc639 A/G Ratio 1.8 Ratio 06/02/2017 Comp Metabolic Xxt358 Osmo 280 mOsmo 06/02/2017 Vitamin D 25 Oh Skr2503 VITAMIN D, 25 HYDROXY 40.03 ng/mL Cbc [...] 93.0 fl 06/02/2017 Cbc With Differential Ord2 [place]% 10.5 % 06/02/2017 Cbc With Differential Ord2 MCH 29.7 pg 06/02/2017 Cbc With Differential Ord2 Eos% [...] 1.52 K/ul 06/02/2017 Cbc With Differential Ord2 [place] ABS# 0.6 K/ul 06/02/2017 Cbc With Differential Ord2 Eos ABS# 0.2 K/ul 06/02/2017 Cbc With Differential Ord2 Baso ABS# 0.1 K/ul 06/02/2017 Testosterone Zpc471 Testo 198.4 ng/dL 04/29/2017 Vitamin D 25 Oh Rjz4126 VITAMIN D, 25 HYDROXY 29.25 ng/mL Lipid Ord30 CHOL 159 mg/dL 04/29/2017 Lipid Ord30 HDL 46.0 mg/dl 04/29/2017 Lipid Ord30 TRIG 134 mg/dL 04/29/2017 Lipid Ord30 LDL 86 mg/dL 04/29/2017 Lipid Ord30 C/HDL 3.5 Ratio 04/29/2017 Tsh Ord6 TSH (3rd IS) 3.28 uIU/mL 04/29/2017 Review of Systems System Result Effective Dates Constitutional recent illness 10/06/2017 Constitutional chills 10/06/2017 [...] Procedure Codes Date THER/PROPH/DIAG INJ SC/IM CPT-4: 81830 10/06/2017 TRIAMCINOLONE ACET INJ NOS CPT-4: J3301 10/06/2017 THER/PROPH/DIAG INJ SC/IM CPT-4: 77154 09/23/2017 THER/PROPH/DIAG INJ SC/IM CPT-4: 49647 08/28/2017 THER/PROPH/DIAG INJ SC/IM CPT-4: 21324 08/12/2017 THER/PROPH/DIAG INJ SC/IM CPT-4: 38578 07/28/2017 THER/PROPH/DIAG INJ SC/IM CPT-4: 53126 07/14/2017 THER/PROPH/DIAG INJ SC/IM CPT-4: 52978 06/26/2017 THER/PROPH/DIAG INJ SC/IM CPT-4: 81539 06/09/2017 THER/PROPH/DIAG INJ SC/IM CPT-4: 49919 05/27/2017 THER/PROPH/DIAG INJ SC/IM CPT-4: 77761 05/13/2017 THER/PROPH/DIAG INJ SC/IM CPT-4: 15469 04/29/2017 Vital Signs Date Vital 10/06/2017 Blood Pressure 1: 124/60 Code : 8480-6 BMI: 28.8 Code : 91925-2 Heart Rate 1 : 70 bpm Height: 5'10" SpO2: 98% Weight: 201 lbs 07/24/2017 Blood Pressure 1: 118/70 Code : 8480-6 BMI: 29.3 Code : 87755-8 Heart Rate 1 : 82 bpm Height: 5'10" SpO2: 96% Weight: 204 lbs 07/14/2017 Blood Pressure 1: 118/72 Code : 8480-6 BMI: 29.1 Code : 07371-6 Heart Rate 1 : 83 bpm Height: 5'10" SpO2: 98% Weight: 203 lbs 06/09/2017 Blood Pressure 1: 120/74 Code : 8480-6 BMI: 29.3 Code : 06033-8 Heart Rate 1 : 91 bpm Height: 5'10" SpO2: 99% Weight: 204 lbs 04/28/2017 Blood Pressure 1: 118/68 Code : 8480-6 BMI: 28.8 Code : 60769-5 Heart Rate 1 : 74 bpm Height: 5'10" SpO2: 96% Weight: 201 lbs 03/14/2017 Blood Pressure 1: 114/74 Code : 8480-6 BMI: 28.6 Code : 50871-4 Heart Rate 1 : 77 bpm Height: 5'10" SpO2: 97% Weight: 199 lbs Functional Status No Functional Status data History of Present Illness Symptom Name Status Result Effective Date Notes sinus congestion Location frontal sinuses 10/06/2017 None [...] Codes Date EST. PATIENT, LEVEL III Diagnosis: Acute laryngopharyngitis[ICD10: J06.0] Diagnosis: Other allergic rhinitis[ICD10: J30.89] Sapphire Hollis MD, [facility] CPT-4: 27901 10/06/2017 [id number] EST. PATIENT, LEVEL III Diagnosis: Pain in left shoulder[ICD10: M25.512] Sapphire Hollis MD, [facility] CPT-4: 96815 07/24/2017 ([id number]) [id number] EST. PATIENT, LEVEL IV Diagnosis: Mixed hyperlipidemia[ICD10: E78.2] Diagnosis: Chronic obstructive pulmonary disease, unspecified[ICD10: J44.9] Diagnosis: Testicular hypofunction[ICD10: E29.1] Leora Hollis MD, [facility] CPT-4: 01277 07/14/2017 ([id number]) [id number] EST. 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] Diagnosis: Mixed hyperlipidemia[ICD10: E78.2] Diagnosis: Hypoxemia[ICD10: R09.02] Leora Hollis MD, [facility] CPT-4: 10559 06/09/2017 ([id number]) [id number] EST. 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] [facility] CPT-4: 17880 04/28/2017 ([id number]) Miscellaneous no charge Diagnosis: Impacted cerumen, bilateral[ICD10: H61.23] [facility] CPT-4: 84922 03/17/2017 ([id number]) OFFICE VISIT, NEW - LEVEL 4 Diagnosis: Mixed hyperlipidemia[ICD10: E78.2] Diagnosis: Chronic pain syndrome[ICD10: G89.4] Diagnosis: Presbycusis, bilateral[ICD10: H91.13] Diagnosis: Impacted cerumen, bilateral[ICD10: H61.23] Diagnosis: Atherosclerotic heart disease of [place] coronary artery without angina pectoris[ICD10: I25.10] Diagnosis: Personal history of other diseases of the circulatory system[ICD10: Z86.79] [facility] CPT-4: 75664 2017 Plan of Care Planned Activity Notes [...] spray. 10/06/2017 Appointment[facility] ([facility] min) Moderate 10/06/2017 Appointment: Sapphire Oneil WPtel[facility] ([facility] min[facility] Moderate 10/06/2017 Patient Education: Patient [...] plan. 07/24/2017 Appointment[facility] Sapphire Oneil [facility] [phone] [facility] (30 min) Complex 07/24/2017 Patient Education: Patient [...] medications. 07/14/2017 Appointment: [facility] [phone] [facility] [place] (15 min) Moderate 07/14/2017 Patient Education: Patient Medication Summary Completed 07/14/2017 Appointment: [facility] [phone] [facility] [place] (15 min) Moderate 07/10/2017 Appointment: [...] 06/09/2017 Appointment: [facility] [phone] [facility] [place] (30 min) Complex 06/09/2017 Patient [...] 15 04/28/2017 Appointment: Leora Hollis WPtel: [phone] [id number] (30 min) Complex 04/28/2017 Patient [...] removal 03/14/2017 Appointment: Leora Hollis WPtel: [facility] New Patient 03/14/2017 Patient Education: Patient [...] liver response to medications. . Hypogonadism - testosterone shot to be [...]
--- OUTSIDE RECORDS SUMMARY | 2018-06-12 10:00 | XMS REPORT | CCD ---
Author Author [facility] Organization [facility] Address [address] [place] [address] Phone Care Team Providers Care Prop Sawyer Name Role Phone PP Unavailable CCM Unavailable Summary Purpose Interface Exchange Insurance Providers Payer name Policy type / Coverage type Covered republican ID Effective Begin Date Effective End Date WPS Medicare Part B Medicare Part B [id number] 2017 Unknown [facility] Medicare Part B [id number] 2017 Unknown Family history Father Diagnosis Age At Onset Heart Attack Unknown Social History Social History Element Codes Description Effective Dates Marital status Unknown 03/14/2017 Number of children Unknown 2 03/14/[address]: 7760310 Former smoker Quit 11/03/00; smoke 1/2 pack/day x15 years 03/14/[address]: 452028037 Never drinks alcohol 03/14/2017 Allergies, Adverse Reactions, [...] Active 03/14/2017 Unknown 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 [...] H61.23 03/14/2017 Active 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 ICD-10: I25.10 03/14/2017 Active Chronic pain syndrome ICD-9: 338.4 ICD-10: G89.4 03/14/2017 Active Personal history of other diseases of the circulatory system ICD-9: V12.59 ICD-10: Z86.79 03/14/2017 Active Presbycusis, 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 03/14/2017 Active Medications Medication Codes Instructions Start Date Stop Date Status Fill Instructions Zithromax Z-Timothy 250 mg tablet RxNorm: 363317 1 Tablet(s) PO UD 10/07/2017 No Stop Date Active testosterone cypionate 200 mg/mL intramuscular oil RxNorm: 350087 Milliliter(s) IM 10/06/2017 10/06/2017 Inactive Kenalog 40 mg/mL suspension for injection RxNorm: 7394848 Milliliter(s) Inj 10/06/2017 10/06/2017 Inactive Zithromax Z-Timothy 250 mg tablet RxNorm: 661334 1 Tablet(s) PO UD 10/06/2017 10/06/2017 Inactive testosterone cypionate 200 mg/mL intramuscular oil RxNorm: 806855 Milliliter(s) IM 09/23/2017 09/23/2017 Inactive testosterone cypionate 200 mg/mL intramuscular kit RxNorm: 397737 1/2 Milliliter(s ) IM X0sbnin 08/28/2017 02/23/2018 Active meloxicam 15 mg tablet RxNorm: 022197 TAKE ONE TABLET BY MOUTH DAILY 08/28/2017 05/24/2018 Active testosterone cypionate 200 mg/mL intramuscular oil RxNorm: 407011 Milliliter(s) IM 08/28/2017 08/28/2017 Inactive testosterone cypionate 200 mg/mL intramuscular oil RxNorm: 958835 1/2 Milliliter(s ) IM 08/12/2017 08/12/2017 Inactive meloxicam 15 mg tablet RxNorm: 997801 1 Tablet(s) PO daily 08/201708/27/2017 Inactive atorvastatin 40 mg tablet RxNorm: 149829 TAKE ONE TABLET BY MOUTH DAILY 07/30/2017 02/24/2018 Active furosemide 40 mg tablet RxNorm: 958085 TAKE ONE TABLET BY MOUTH DAILY 07/30/2017 02/24/2018 Active testosterone cypionate 200 mg/mL intramuscular oil RxNorm: 615059 1/2 Milliliter(s ) IM 07/28/2017 07/28/2017 Inactive testosterone cypionate 200 mg/mL intramuscular oil RxNorm: 057056 1/2 Milliliter(s ) IM 07/14/2017 07/14/2017 Inactive testosterone cypionate 200 mg/mL intramuscular oil RxNorm: 585748 1/2 Milliliter(s ) IM 06/26/2017 06/26/2017 Inactive hydrocodone 5 mg-acetaminophen 325 mg tablet RxNorm: 716941 1 Tablet(s) PO QHS and 1 tab PO daily PRN pain 06/09/2017 Inactive hydrocodone 5 mg-acetaminophen 325 mg tablet RxNorm: 097619 1 Tablet(s) PO daily 06/09/2017 06/18/2017 Inactive testosterone cypionate 200 mg/mL intramuscular oil RxNorm: 626711 1/2 Milliliter(s ) IM 06/09/2017 06/09/2017 Inactive testosterone cypionate 200 mg/mL intramuscular oil RxNorm: 590373 Milliliter(s) IM 05/27/2017 05/27/2017 Inactive testosterone cypionate 200 mg/mL intramuscular oil RxNorm: 104870 Milliliter(s) IM 05/13/2017 05/13/2017 Inactive potassium chloride ER 10 mEq capsule,extended release RxNorm: 554256 1 Capsule(s) PO daily 05/07/2017 11/02/2017 Active Vitamin D2 50,000 unit capsule RxNorm: 487748 1 Capsule(s) PO QW 05/06/2017 05/05/2017 Inactive take with OTC vitamin d 2,000 units QD testosterone cypionate 200 mg/mL intramuscular kit RxNorm: 675391 1/2 kit IM 2 x month 05/06/2017 08/27/2017 Inactive Vitamin D2 50,000 unit capsule RxNorm: 145147 1 Capsule(s) PO QW 05/06/2017 08/03/2017 Inactive take with OTC vitamin d 2,000 units QD testosterone cypionate 200 mg/mL intramuscular oil RxNorm: 289166 1/2 Milliliter(s ) IM 04/29/2017 04/29/2017 Inactive fluorouracil 5 % topical cream RxNorm: 593252 1 Application TOP BID 04/28/2017 05/07/2017 Inactive testosterone cypionate 200 mg/mL intramuscular kit RxNorm: 887194 1/2 IM 2 x month 04/28/2017 05/05/2017 Inactive Pamelor 10 mg capsule RxNorm: 211256 1 Capsule(s) PO daily No Start Date Active gabapentin 300 mg capsule RxNorm: 710161 6 Capsule(s) PO daily No Start Date Active cyclobenzaprine 5 mg tablet RxNorm: 202555 1 Tablet(s) PO as needed No Start Date Active diclofenac 1 % topical gel RxNorm: 060989 1 Gram(s) TOP as needed No Start Date Active clopidogrel 75 mg tablet RxNorm: 652885 1 Tablet(s) PO daily No Start Date Active meloxicam 15 mg tablet RxNorm: 185254 1 Tablet(s) PO daily No Start Date 07/30/2017 Inactive potassium chloride ER 10 mEq tablet,extended release RxNorm: 413840 1 Tablet(s) PO daily No Start Date 05/06/2017 Inactive hydrocodone 5 mg-acetaminophen 325 mg tablet RxNorm: 512125 1 Tablet(s) PO daily No Start Date 06/08/2017 Inactive furosemide 40 mg tablet RxNorm: 473233 1 Tablet(s) PO daily No Start Date 07/29/2017 Inactive atorvastatin 40 mg tablet RxNorm: 059296 1 Tablet(s) PO QHS No Start Date 07/29/2017 Inactive Medication Administered Medication Codes Instructions Start Date Status testosterone cypionate 200 mg/mL intramuscular oil RxNorm: 670293 Milliliter 10/06/2017 No longer Active Kenalog 40 mg/mL suspension for injection RxNorm: 1521251 Milliliter 10/06/2017 No longer Active testosterone cypionate 200 mg/mL intramuscular oil RxNorm: 541226 Milliliter 09/23/2017 No longer Active testosterone cypionate 200 mg/mL intramuscular oil RxNorm: 026735 Milliliter 08/28/2017 No longer Active testosterone cypionate 200 mg/mL intramuscular oil RxNorm: 451397 1/2Milliliter 08/12/2017 No longer Active testosterone cypionate 200 mg/mL intramuscular oil RxNorm: 627124 1/2Milliliter 07/28/2017 No longer Active testosterone cypionate 200 mg/mL intramuscular oil RxNorm: 025393 1/2Milliliter 07/14/2017 No longer Active testosterone cypionate 200 mg/mL intramuscular oil RxNorm: 023725 /2Milliliter 06/26/2017 No longer Active testosterone cypionate 200 mg/mL intramuscular oil RxNorm: 018807 1/2Milliliter 06/09/2017 No longer Active testosterone cypionate 200 mg/mL intramuscular oil RxNorm: 479522 Milliliter 05/27/2017 No longer Active testosterone cypionate 200 mg/mL intramuscular oil RxNorm: 140939 Milliliter 05/13/2017 No longer Active testosterone cypionate 200 mg/mL intramuscular oil RxNorm: 855201 /2Milliliter 04/29/2017 No longer Active Immunizations No Immunization [...] ICD-9: 380.4 03/17/2017 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2 % 08/06/2017 Cbc With Differential Ord2 [...] 1.33 K/ul 08/06/2017 Cbc With Differential Ord2 [place] ABS# 0.6 K/ul 08/06/2017 Cbc With Differential Ord2 Eos ABS# 0.3 K/ul 08/06/2017 Cbc With Differential Ord2 Baso ABS# 0.1 K/ul 08/06/2017 Comp Metabolic Cfj857 NA 140 mEq/L 06/02/2017 Comp Metabolic Bkr959 K 3.8 mEq/L 06/02/2017 Comp Metabolic Cma877 CL 102 mEq/L 06/02/2017 Comp Metabolic Rnx294 CO2 30.0 mEq/L 06/02/2017 Comp Metabolic Bub952 ANION GAP 12 06/02/2017 Comp Metabolic Tup076 GLUCOSE 100 mg/dL 06/02/2017 Comp Metabolic Plw628 Creat 1.1 mg/dL 06/02/2017 Comp Metabolic Krl106 eGFR 69 ml/min/1.73m2 06/02/2017 Comp Metabolic Xpm404 BUN 15 mg/dL 06/02/2017 Comp Metabolic Qya291 B/C Ratio 13.4 Ratio 06/02/2017 Comp Metabolic Gxp046 CALCIUM 8.6 mg/dL 06/02/2017 Comp Metabolic Tzq253 ALK PHOS 63 U/L 06/02/2017 Comp Metabolic Yhf946 AST(SGOT) 17 U/L 06/02/2017 Comp Metabolic Rem495 ALT(SGPT) 12 U/L 06/02/2017 Comp Metabolic Kyi654 BILI T 0.5 mg/dL 06/02/2017 Comp Metabolic Xjk552 ALBUMIN 3.9 g/dL 06/02/2017 Comp Metabolic Kla215 TPRO 6.1 g/dL 06/02/2017 Comp Metabolic Xmr623 GLOB 2.2 g/dL 06/02/2017 Comp Metabolic Itt876 A/G Ratio 1.8 Ratio 06/02/2017 Comp Metabolic Dcm279 Osmo 280 mOsmo 06/02/2017 Vitamin D 25 Oh Tbi5453 VITAMIN D, 25 HYDROXY 40.03 ng/mL Cbc [...] 93.0 fl 06/02/2017 Cbc With Differential Ord2 [place]% 10.5 % 06/02/2017 Cbc With Differential Ord2 [...] 1.52 K/ul 06/02/2017 Cbc With Differential Ord2 [place] ABS# 0.6 K/ul 06/02/2017 Cbc With Differential Ord2 Eos ABS# 0.2 K/ul 06/02/2017 Cbc With Differential Ord2 Baso ABS# 0.1 K/ul 06/02/2017 Testosterone Wrt230 Testo 198.4 ng/dL 04/29/2017 Vitamin D 25 Oh Egb1781 VITAMIN D, 25 HYDROXY 29.25 ng/mL Lipid [...] Procedure Codes Date THER/PROPH/DIAG INJ SC/IM CPT-4: 15362 10/06/2017 TRIAMCINOLONE ACET INJ NOS CPT-4: J3301 10/06/2017 THER/PROPH/DIAG INJ SC/IM CPT-4: 72824 09/23/2017 THER/PROPH/DIAG INJ SC/IM CPT-4: 14887 08/28/2017 THER/PROPH/DIAG INJ SC/IM CPT-4: 06914 08/12/2017 THER/PROPH/DIAG INJ SC/IM CPT-4: 38251 07/28/2017 THER/PROPH/DIAG INJ SC/IM CPT-4: 73714 07/14/2017 THER/PROPH/DIAG INJ SC/IM CPT-4: 17755 06/26/2017 THER/PROPH/DIAG INJ SC/IM CPT-4: 86947 06/09/2017 THER/PROPH/DIAG INJ SC/IM CPT-4: 73570 05/27/2017 THER/PROPH/DIAG INJ SC/IM CPT-4: 17257 05/13/2017 THER/PROPH/DIAG INJ SC/IM CPT-4: 14274 04/29/2017 Vital Signs Date Vital 10/06/2017 Blood Pressure 1: 124/60 Code : 8480-6 BMI: 28.8 Code : 28919-3 Heart Rate 1 : 70 bpm Height: 5'10" SpO2: 98% Weight: 201 lbs 07/24/2017 Blood Pressure 1: 118/70 Code : 8480-6 BMI: 29.3 Code : 42854-1 Heart Rate 1 : 82 bpm Height: 5'10" SpO2: 96% Weight: 204 lbs 07/14/2017 Blood Pressure 1: 118/72 Code : 8480-6 BMI: 29.1 Code : 73422-0 Heart Rate 1 : 83 bpm Height: 5'10" SpO2: 98% Weight: 203 lbs 06/09/2017 Blood Pressure 1: 120/74 Code : 8480-6 BMI: 29.3 Code : 38832-2 Heart Rate 1 : 91 bpm Height: 5'10" SpO2: 99% Weight: 204 lbs 04/28/2017 Blood Pressure 1: 118/68 Code : 8480-6 BMI: 28.8 Code : 01711-3 Heart Rate 1 : 74 bpm Height: 5'10" SpO2: 96% Weight: 201 lbs 03/14/2017 Blood Pressure 1: 114/74 Code : 8480-6 BMI: 28.6 Code : 82634-6 Heart Rate 1 : 77 bpm Height: [...] Other allergic rhinitis[ICD10: J30.89] Sapphire Hollis MD, [facility] CPT-4: 09852 10/06/2017 [id number] EST. PATIENT, LEVEL III Diagnosis: Pain in left shoulder[ICD10: M25.512] Sapphire Hollis MD, [facility] CPT-4: 71171 07/24/2017 ([id number]) 64461 EST. 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] Leora Hollis MD, [facility] CPT-4: 62699 04/28/2017 ([id number]) Miscellaneous no charge Diagnosis: Impacted cerumen, bilateral[ICD10: H61.23] Leora Hollis MD, [facility] CPT-4: 92254 03/17/2017 ([id number]) OFFICE VISIT, NEW - LEVEL 4 Diagnosis: Mixed hyperlipidemia[ICD10: E78.2] Diagnosis: Chronic pain syndrome[ICD10: G89.4] Diagnosis: Presbycusis, bilateral[ICD10: H91.13] Diagnosis: Impacted cerumen, bilateral[ICD10: H61.23] Diagnosis: Atherosclerotic heart disease of [place] coronary artery without angina pectoris[ICD10: I25.10] Diagnosis: Personal history of other diseases of the circulatory system[ICD10: Z86.79] Leora Hollis MD, [facility] CPT-4: 66036 2017 Plan of Care Planned Activity Notes [...] allergy spray. 10/06/2017 Appointment: [facility] [place] (15 min) Moderate 10/06/2017 Appointment: Sapphire Oneil [facility]el[id number] ([facility] Moderate 10/06/2017 Patient Education: Patient [...] plan. 07/24/2017 Appointment: Sapphire Oneil WPtel[id number] (30 min) Complex 07/24/2017 Patient Education: [...] medications. 07/14/2017 [facility] [address] [facility] [place] (15 min) Moderate 07/14/2017 Patient Education: Patient Medication Summary Completed 07/14/2017 Appointment: [facility] [phone] [facility] [place] [place] (15 min) Moderate 07/10/2017 Appointment: Injection 06/26/2017 [...] night 06/09/2017 Appointment: [facility] [phone] [facility] [place] [place] (30 min) Complex 06/09/2017 Patient Education: [...] 15 04/28/2017 Appointment: [facility] [address] [facility] [place] (30 min) Complex 04/28/2017 Patient Education: Patient [...] removal 03/14/2017 Appointment: [facility] [address] [facility] [place] New Patient 03/14/2017 Patient Education: Patient Medication [...]
--- OUTSIDE RECORDS SUMMARY | 2018-06-12 10:02 | XMS REPORT | Continuity of Care Document ---
Author Organization Unknown Address Unknown Allergies Active Description Code Type Severity Reaction Onset Reported/Identified Relationship to Patient Clinical Status Yes NO KNOWN DRUG ALLERGIES UNKNOWN NO KNOWN DRUG ALLERG Yes No Known Drug Allergies [id number] Drug Allergy Unknown N/A 06/10/2018 Medications Medication Packaging Start Date Stop Date Route Dosage Sig TETANUS,DIPTH,PERT ADULT INJ 0 (ADACEL SYRINGE) ml 11/22/2017 11/22/2017 ONCE&2131 CYCLOBENZAPRINE TAB 5 MG (FLEXERIL) Dose(s) 11/22/2017 11/29/2017 PRN Q8H MELOXICAM TAB 7.5 MG (MOBIC) Dose(s) 11/23/2017 12/22/2017 Daily&0900 CLOPIDOGREL TAB 75 MG (PLAVIX) Dose(s) 11/23/2017 11/29/2017 Daily&0900 POTASSIUM CHLORIDE TAB 10 MEQ (K-DUR) Dose(s) 11/23/2017 11/29/2017 Daily&0900 NORTRIPTYLINE CAP 25 MG (PAMELOR) Dose(s) 11/23/2017 11/29/2017 Daily&0900 FUROSEMIDE TAB 40 MG (LASIX) Dose(s) 11/23/2017 11/29/2017 Daily&0900 GABAPENTIN CAP 300 MG (NEURONTIN) Dose(s) 11/23/2017 12/22/2017 Daily&0900 HYDROCODONE/APAP 5MG/325MG TAB 5 MG/325MG (BOAZ-TAB 5/325) Dose(s) 11/23/2017 12/02/2017 Daily&0900 HYDROCODONE/APAP 5MG/325MG TAB 5 MG/325MG (BOAZ-TAB 5/325) Dose(s) 11/23/2017 12/03/2017 PRN Q4H Problems Date Dx Coded Attending Type Code Diagnosis Diagnosed By SONIA CHONG MD Ot M25.512 PAIN IN LEFT SHOULDER SONIA CHONG MD Ot S46.011D STRAIN OF MUSC/TEND THE ROTATOR CUFF OF 01/24/1304 MELISSA STEVENSON MD Ot M62.81 01/24/1304 MELISSA STEVENSON MD Ot R26.0 01/23/1599 ESTEBAN HOYOS, ANNA Arroyo Ot M75.41 IMPINGEMENT SYNDROME OF RIGHT SHOULDER 01/19/2014 CHRISTIAN HOYOS, CASSANDRA Painting Ot 715.35 01/19/2014 CASSANDRA GONZALES MD Ot 724.2 01/19/2014 CASSANDRA GONZALES MD Ot 724.6 01/31/2014 CASSANDRA GONZALES MD Ot 715.35 01/31/2014 CASSANDRA GONZALES MD Ot 724.2 01/31/2014 CASSANDRA GONZALES MD Ot 724.6 04/08/2014 SOLO MENDEZ Ot 272.4 [...] 600.00 04/11/2014 Ot 733.90 04/11/2014 CARMEN DELVALLE AUTOMOTIVE ASSEMBLER Ot 550.90 04/11/2014 CARMEN DELVALLE AUTOMOTIVE ASSEMBLER Ot 562.10 04/11/2014 CARMEN DELVALLE AUTOMOTIVE ASSEMBLER Ot 591 04/11/2014 CARMEN DELVALLE AUTOMOTIVE ASSEMBLER Ot 592.1 04/11/2014 CASSANDRA GONZALES MD Ot 715.35 04/11/2014 CHRISTIAN HOYOS, CASSANDRA D Ot 724.2 04/11/2014 CHRISTIAN HOYOS, CASSANDRA D Ot 724.6 11/30/2014 Ot 562.10 11/30/2014 Ot 593.9 11/30/2014 Ot 733.90 11/30/2014 Ot 722.52 11/30/2014 Ot 794.8 11/30/2014 Ot 573.8 11/30/2014 Ot 600.00 11/30/2014 Ot 733.90 11/30/2014 CARMEN DELVALLE N AUTOMOTIVE ASSEMBLER Ot 550.90 11/30/2014 DANG DELVALLEJENISE N AUTOMOTIVE ASSEMBLER Ot 562.10 11/30/2014 DANG DELVALLEJENISE N AUTOMOTIVE ASSEMBLER Ot 591 11/30/2014 DELVALLEDANGJENISE N AUTOMOTIVE ASSEMBLER Ot 592.1 11/30/2014 CHRISTIAN HOYOS, CASSANDRA D Ot 715.35 11/30/2014 CHRISTIAN HOYOS, CASSANDRA D Ot 724.2 11/30/2014 CHRISTIAN HOYOS, CASSANDRA D Ot 724.6 12/22/2014 MELISSA STEVENSON MD Ot I25.10 01/16/2015 MELISSA STEVENSON MD D Ot M62.81 01/16/2015 MELISSA STEVENSON MD Ot R26.0 01/16/2015 MELISSA STEVENSON MD Ot M62.81 01/16/2015 MELISSA STEVENSON MD D Ot R26.0 02/09/2015 MELISSA STEVENSON MD Ot [...] MD Ot M62.81 MUSCLE WEAKNESS (GENERALIZED) 04/13/2015 GRAHAM HOYOS, MELISSA Painting Ot R26.0 ATAXIC GAIT 07/17/2015 DELMY HOYOS, SELENE Rascon Ot G54.1 LUMBOSACRAL PLEXUS DISORDERS 07/17/2015 SELENE BROCK MD Ot G54.1 LUMBOSACRAL PLEXUS DISORDERS 07/31/2015 KODI ESQUEDA AUTOMOTIVE ASSEMBLER Ot I20.9 ANGINA PECTORIS, UNSPECIFIED 07/31/2015 KODI ESQUEDA AUTOMOTIVE ASSEMBLER Ot R42 DIZZINESS AND GIDDINESS 07/31/2015 KODI ESQUEDA AUTOMOTIVE ASSEMBLER Ot Z79.02 STAFF NURSE MIDWIFE (CURRENT) USE OF ANTITHROMBOTI 07/31/2015 KODI ESQUEDA AUTOMOTIVE ASSEMBLER Ot Z87.891 PERSONAL HISTORY OF NICOTINE DEPENDENCE 08/02/2015 KODI ESQUEDA AUTOMOTIVE ASSEMBLER Ot I20.9 ANGINA PECTORIS, UNSPECIFIED 08/02/2015 KODI ESQUEDA AUTOMOTIVE ASSEMBLER Ot R42 DIZZINESS AND GIDDINESS 08/02/2015 KODI ESQUEDA AUTOMOTIVE ASSEMBLER Ot Z79.02 STAFF NURSE MIDWIFE (CURRENT) USE OF ANTITHROMBOTI 08/02/2015 KODI ESQUEDA AUTOMOTIVE ASSEMBLER Ot Z87.891 PERSONAL HISTORY OF NICOTINE DEPENDENCE 08/16/2015 DELMY HOYOS, SELENE Rascon Ot G54.1 LUMBOSACRAL PLEXUS DISORDERS 08/16/2015 SELENE [...] ENCOUNTER FOR SCREENING FOR MALIGNANT NE 09/26/2015 KATHRINE HOYOS, KESHAV Painting Ot D12.8 BENIGN NEOPLASM OF RECTUM 09/26/2015 KATHRINE HOYOS, KESHAV Painting Ot K57.30 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 AB 09/26/2015 KESHAV CHISHOLM MD Ot K63.5 POLYP OF COLON 09/26/2015 KATHRINE HOYOS, KESHAV Painting Ot Z12.11 ENCOUNTER FOR SCREENING FOR MALIGNANT NE 11/15/2015 KESHAV CHISHOLM MD Ot D12.8 BENIGN NEOPLASM OF RECTUM 11/15/2015 KESHAV CHISHOLM MD Ot K57.30 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 AB 11/15/2015 KESHAV CHISHOLM MD Ot K63.5 POLYP OF COLON 11/15/2015 KATHRINE HOYOS, KESHAV Painting Ot Z12.11 ENCOUNTER [...] CARTILAGE DIS NOS 02/12/2016 CARMEN DELVALLE N AUTOMOTIVE ASSEMBLER Ot 550.90 UNILAT INGUINAL HERNIA 02/12/2016 CARMEN DELVALLE N AUTOMOTIVE ASSEMBLER Ot 562.10 DIVERTICULOSIS COLON (W/O MENT OF HEMORR 02/12/2016 CARMEN DELVALLE N AUTOMOTIVE ASSEMBLER Ot 591 HYDRONEPHROSIS 02/12/2016 CARMEN DELVALLE N AUTOMOTIVE ASSEMBLER Ot 592.1 CALCULUS OF URETER 02/12/2016 CASSANDRA GONZALES MD Ot 715.35 LOC OSTEOARTH NOS-PELVIS 02/12/2016 CASSANDRA GONZALES MD Ot 724.2 LUMBAGO 02/12/2016 CASSANDRA GONZALES MD Ot 724.6 DISORDERS OF SACRUM 02/12/2016 MELISSA STEVENSON MD Ot I25.10 ATHSCL HEART DISEASE OF [place] CORONARY 02/12/2016 DELMY HOYOS, SELENE Rascon Ot G54.1 LUMBOSACRAL PLEXUS DISORDERS 02/12/2016 KESHAV CHISHOLM MD Ot D12.8 BENIGN NEOPLASM OF RECTUM 02/12/2016 KESHAV CHISHOLM MD Ot K57.30 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 AB 02/12/2016 KESHAV CHISHOLM MD Ot K63.5 POLYP OF COLON 02/12/2016 EKSHAV CHISHOLM MD Ot Z12.11 ENCOUNTER FOR SCREENING FOR MALIGNANT NE 03/08/2016 MARIO ROSADO MD Ot E04.1 NONTOXIC SINGLE THYROID NODULE 03/18/2016 MARIO ROSADO MD Ot E04.1 NONTOXIC SINGLE THYROID NODULE 08/14/2016 KESHAV CHISHOLM MD Ot D12.8 BENIGN NEOPLASM OF RECTUM 08/14/2016 KESHAV CHISHOLM MD Ot Z01.818 ENCOUNTER FOR OTHER PREPROCEDURAL EXAMIN 08/16/2016 KESHAV CHISHOLM MD Ot D12.8 BENIGN NEOPLASM OF RECTUM 08/16/2016 KESHAV CHISHOLM MD Ot E78.5 HYPERLIPIDEMIA, UNSPECIFIED 08/16/2016 KESHAV CHISHOLM MD Ot I10 ESSENTIAL (PRIMARY) HYPERTENSION 08/16/2016 KESHAV CHISHOLM MD Ot I25.10 ATHSCL HEART DISEASE OF [place] CORONARY 08/16/2016 KESHAV CHISHOLM MD Ot K57.30 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 AB 08/16/2016 KESHAV CHISHOLM MD Ot K63.5 POLYP OF COLON 08/16/2016 KESHAV CHISHOLM MD Ot Z79.02 HALF-WAY (CURRENT) USE OF ANTITHROMBOTI 08/16/2016 KESHAV CHISHOLM MD Ot Z95.1 PRESENCE OF AORTOCORONARY BYPASS GRAFT 08/22/2016 SOLO MENDEZ Ot H53.8 OTHER VISUAL DISTURBANCES 08/22/2016 CROW PA, SOLO L Ot R42 DIZZINESS AND GIDDINESS 08/23/2016 KESHAV CHISHOLM MD Ot D12.8 BENIGN NEOPLASM OF RECTUM 08/23/2016 KESHAV CHISHOLM MD Ot E78.5 HYPERLIPIDEMIA, UNSPECIFIED 08/23/2016 KESHAV CHISHOLM MD Ot I10 ESSENTIAL (PRIMARY) HYPERTENSION 08/23/2016 KESHAV CHISHOLM MD Ot I25.10 ATHSCL HEART DISEASE OF [place] CORONARY 08/23/2016 KESHAV CHISHOLM MD Ot K57.30 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 AB 08/23/2016 KESHAV CHISHOLM MD Ot K63.5 POLYP OF COLON 08/23/2016 KESHAV CHISHOLM MD Ot Z79.02 HALF-WAY (CURRENT) USE OF ANTITHROMBOTI 08/23/2016 KESHAV CHISHOLM MD Ot Z95.1 PRESENCE OF AORTOCORONARY BYPASS GRAFT 08/24/2016 KESHAV CHISHOLM MD Ot D12.8 BENIGN NEOPLASM OF RECTUM 08/24/2016 KESHAV CHISHOLM MD Ot E78.5 HYPERLIPIDEMIA, UNSPECIFIED 08/24/2016 KESHAV CHISHOLM MD Ot I10 ESSENTIAL (PRIMARY) HYPERTENSION 08/24/2016 KESHAV CHISHOLM MD Ot I25.10 ATHSCL HEART DISEASE OF [place] CORONARY 08/24/2016 KESHAV CHISHOLM MD Ot K57.30 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 AB 08/24/2016 KESHAV CHISHOLM MD Ot K63.5 POLYP OF COLON 08/24/2016 KESHAV CHISHOLM MD Ot Z79.02 STAFF NURSE MIDWIFE (CURRENT) USE OF ANTITHROMBOTI 08/24/2016 KESHAV CHISHOLM MD Ot Z95.1 PRESENCE OF AORTOCORONARY BYPASS GRAFT 08/29/2016 SOLO MENDEZ Ot R42 DIZZINESS AND GIDDINESS 08/29/2016 SOLO MENDEZ Ot R51 HEADACHE 08/29/2016 SOLO MENDEZ Ot R53.83 OTHER FATIGUE 08/29/2016 SOLO MENDEZ Ot R93.0 ABNORMAL FINDINGS ON DX IMAGING OF SKULL 09/06/2016 SOLO MENDEZ Ot R42 DIZZINESS AND GIDDINESS 09/06/2016 SOLO MENDEZ Ot R51 HEADACHE 09/06/2016 SOLO MENDEZ Ot R53.83 OTHER FATIGUE 09/06/2016 CROW MORENOSOLO Ot R93.0 ABNORMAL FINDINGS ON DX IMAGING OF SKULL 09/12/2016 CROW MORENO SOLO Prashant Ot H53.8 OTHER VISUAL DISTURBANCES 09/12/2016 CROW MORENO SOLO Prashant Ot R42 DIZZINESS AND GIDDINESS 09/20/2016 CROW MORENO SOLO Prashant Ot H53.8 OTHER VISUAL DISTURBANCES 09/20/2016 SOLO MENDEZ Ot R42 DIZZINESS AND GIDDINESS 11/07/2016 MIRLANDE HOYOS, KULWANT E Ot M54.2 CERVICALGIA 11/23/2016 MIRLANDE HOYOS, KULWANT E Ot M54.2 CERVICALGIA 11/26/2016 KULWANT NOGUEIRA MD Ot M54.2 CERVICALGIA 11/27/2016 MIRLANDE HOYOS, KULWANT E Ot M54.2 CERVICALGIA 12/06/2016 KULWANT NOGUEIRA [...] M75.41 IMPINGEMENT SYNDROME OF RIGHT SHOULDER 05/07/2017 ANNA ORELLANA MD H Ot M75.41 IMPINGEMENT SYNDROME OF RIGHT SHOULDER 05/08/2017 ANNA ORELLANA MD H Ot M75.41 IMPINGEMENT SYNDROME OF RIGHT SHOULDER 05/08/2017 ANNA ORELLANA MD H Ot M75.41 IMPINGEMENT SYNDROME OF RIGHT SHOULDER 05/09/2017 ANNA ORELLANA MD H Ot M75.41 IMPINGEMENT SYNDROME OF RIGHT SHOULDER 05/13/2017 ANNA ORELLANA MD Ot M75.41 IMPINGEMENT SYNDROME OF RIGHT SHOULDER 05/16/2017 KESHAV CHISHOLM MD Ot K62.1 RECTAL [...] BONE CARTILAGE DIS NOS 05/16/2017 CARMEN DELVALLE AUTOMOTIVE ASSEMBLER Ot 550.90 UNILAT INGUINAL HERNIA 05/16/2017 CARMEN DELVALLE AUTOMOTIVE ASSEMBLER Ot 562.10 DIVERTICULOSIS COLON (W/O MENT OF HEMORR 05/16/2017 CARMEN DELVALLE AUTOMOTIVE ASSEMBLER Ot 591 HYDRONEPHROSIS 05/16/2017 CARMEN DELVALLE AUTOMOTIVE ASSEMBLER Ot 592.1 CALCULUS OF URETER 05/16/2017 CHRISTIAN HOOYS, CASSANDRA Painting Ot 715.35 LOC OSTEOARTH NOS-PELVIS 05/16/2017 CHRISTIAN HOYOS, CASSANDRA Painting Ot 724.2 LUMBAGO 05/16/2017 CHRISTIAN HOYOS, CASSANDRA Painting Ot 724.6 DISORDERS OF SACRUM 05/16/2017 GRAHAM HOYOS, MELISSA Painting Ot I25.10 ATHSCL HEART DISEASE OF [place] CORONARY 05/16/2017 DELMY HOYOS, SELENE Rascon Ot G54.1 LUMBOSACRAL PLEXUS DISORDERS 05/16/2017 KATHRINE HOYOS, KESHAV Painting Ot D12.8 BENIGN NEOPLASM OF RECTUM 05/16/2017 KESHAV CHISHOLM MD Ot K57.30 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 AB 05/16/2017 KESHAV CHISHOLM MD Ot K63.5 POLYP OF COLON 05/16/2017 KESHAV CHISHOLM MD Ot Z12.11 ENCOUNTER FOR SCREENING FOR MALIGNANT NE 05/16/2017 ALONZO HOYOS, MARIO Painting Ot E04.1 NONTOXIC SINGLE THYROID NODULE 05/16/2017 SOLO MENDEZ Ot R42 DIZZINESS AND GIDDINESS 05/16/2017 SOLO MENDEZ Ot R51 HEADACHE 05/16/2017 SOLO MENDEZ Ot R53.83 OTHER FATIGUE 05/16/2017 SOLO MENDEZ Ot R93.0 ABNORMAL FINDINGS ON DX IMAGING OF SKULL 05/16/2017 SOOL MENDEZ Ot H53.8 OTHER VISUAL DISTURBANCES 05/16/2017 SOLO MENDEZ Ot R42 DIZZINESS AND GIDDINESS 05/16/2017 ELSIE HOYOS, KYLIE Rascon Ot G47.33 OBSTRUCTIVE SLEEP APNEA (ADULT) (PEDIATR 05/16/2017 KATHRINE HOYOS, KESHAV Painting Ot K62.1 RECTAL POLYP 05/16/2017 KESHAV CHISHOLM MD Ot Z01.818 ENCOUNTER FOR OTHER PREPROCEDURAL EXAMIN 05/16/2017 ESTEBAN HOYOS, ANNA Arroyo Ot M75.41 IMPINGEMENT SYNDROME OF RIGHT SHOULDER 05/19/2017 KESHAV CHISHOLM MD Ot K62.1 RECTAL POLYP 05/19/2017 KESHAV CHISHOLM MD Ot Z01.818 ENCOUNTER FOR OTHER PREPROCEDURAL EXAMIN 05/19/2017 KESHAV CHISHOLM MD Ot K62.1 RECTAL POLYP 05/19/2017 KESHAV CHISHOLM MD Ot Z01.818 ENCOUNTER FOR OTHER PREPROCEDURAL EXAMIN 05/22/2017 ELSIE HOYOS, KYLIE Rascon Ot G47.10 HYPERSOMNIA, UNSPECIFIED 05/22/2017 KYLIE ZIMMERMAN MD Ot G47.36 SLEEP RELATED HYPOVENTILATION IN CONDITI 05/23/2017 KESHAV CHISHOLM MD Ot D12.8 BENIGN NEOPLASM OF RECTUM 05/23/2017 KESHAV CHISHOLM MD Ot E78.5 HYPERLIPIDEMIA, UNSPECIFIED 05/23/2017 KESHAV CHISHOLM MD Ot I10 ESSENTIAL (PRIMARY) HYPERTENSION 05/23/2017 KESHAV CHISHOLM MD Ot I25.10 ATHSCL HEART DISEASE OF [place] CORONARY 05/23/2017 KESHAV CHISHOLM MD Ot Z09 ENCNTR FOR F/U EXAM AFT TRTMT FOR COND O 05/23/2017 KESHAV CHISHOLM MD Ot Z79.02 HALF-WAY (CURRENT) USE OF ANTITHROMBOTI 05/23/2017 KESHAV CHISHOLM MD Ot Z79.82 HALF-WAY (CURRENT) USE OF ASPIRIN 05/23/2017 KESHAV CHISHOLM MD Ot Z86.010 PERSONAL HISTORY OF COLONIC POLYPS 05/23/2017 KESHAV CHISHOLM MD Ot Z95.1 PRESENCE OF AORTOCORONARY BYPASS GRAFT 05/23/2017 KESHAV CHISHOLM MD Ot Z98.1 ARTHRODESIS STATUS 05/27/2017 KESHAV CHISHOLM MD Ot D12.8 BENIGN NEOPLASM OF RECTUM 05/27/2017 KESHAV CHISHOLM MD Ot E78.5 HYPERLIPIDEMIA, UNSPECIFIED 05/27/2017 KESHAV CHISHOLM MD Ot I10 ESSENTIAL (PRIMARY) HYPERTENSION 05/27/2017 KESHAV CHISHOLM MD Ot I25.10 ATHSCL HEART DISEASE OF [place] CORONARY 05/27/2017 KESHAV CHISHOLM MD Ot Z09 ENCNTR FOR F/U EXAM AFT TRTMT FOR COND O 05/27/2017 KESHAV CHISHOLM MD Ot Z79.02 STAFF NURSE MIDWIFE (CURRENT) USE OF ANTITHROMBOTI 05/27/2017 KESHAV CHISHOLM MD Ot Z79.82 STAFF NURSE MIDWIFE (CURRENT) USE OF ASPIRIN 05/27/2017 KESHAV CHISHOLM [...] MD Ot I25.10 ATHSCL HEART DISEASE OF [place] CORONARY 05/31/2017 KESHAV CHISHOLM MD Ot Z09 ENCNTR FOR F/U EXAM AFT TRTMT FOR COND O 05/31/2017 KESHAV CHISHOLM MD Ot Z79.02 HALF-WAY (CURRENT) USE OF ANTITHROMBOTI 05/31/2017 KESHAV CHISHOLM MD Ot Z79.82 HALF-WAY (CURRENT) USE OF ASPIRIN 05/31/2017 KESHAV CHISHOLM MD Ot Z86.010 PERSONAL HISTORY OF COLONIC POLYPS 05/31/2017 KESHAV CHISHOLM MD Ot Z95.1 PRESENCE OF AORTOCORONARY BYPASS GRAFT 05/31/2017 KESHAV CHISHOLM MD Ot Z98.1 ARTHRODESIS STATUS 06/03/2017 KESHAV CIHSHOLM MD Ot D12.8 BENIGN NEOPLASM OF RECTUM 06/03/2017 KESHAV CHISHOLM MD Ot E78.5 HYPERLIPIDEMIA, UNSPECIFIED 06/03/2017 KESHAV CHISHOLM MD Ot I10 ESSENTIAL (PRIMARY) HYPERTENSION 06/03/2017 KESHAV CHISHOLM MD Ot I25.10 ATHSCL HEART DISEASE OF [place] CORONARY 06/03/2017 KESHAV CHISHOLM MD Ot Z09 ENCNTR FOR F/U EXAM AFT TRTMT FOR COND O 06/03/2017 KESHAV CHISHOLM MD Ot Z79.02 STAFF NURSE MIDWIFE (CURRENT) USE OF ANTITHROMBOTI 06/03/2017 KESHAV CHISHOLM MD Ot Z79.82 STAFF NURSE MIDWIFE (CURRENT) USE OF ASPIRIN 06/03/2017 KESHAV CHISHOLM MD Ot Z86.010 PERSONAL HISTORY OF COLONIC POLYPS 06/03/2017 KESHAV CHISHOLM MD Ot Z95.1 PRESENCE OF AORTOCORONARY BYPASS GRAFT 06/03/2017 KESHAV CHISHOLM MD Ot Z98.1 ARTHRODESIS STATUS 06/09/2017 KESHAV CHISHOLM MD, Ot D12.8 BENIGN NEOPLASM OF RECTUM 06/09/2017 KESHAV CHISHOLM MD Ot E78.5 HYPERLIPIDEMIA, UNSPECIFIED 06/09/2017 KESHAV CHISHOLM MD Ot I10 ESSENTIAL (PRIMARY) HYPERTENSION 06/09/2017 KESHAV CHISHOLM MD Ot I25.10 ATHSCL HEART DISEASE OF [place] CORONARY 06/09/2017 KESHAV CHISHOLM MD Ot Z09 ENCNTR FOR F/U EXAM AFT TRTMT FOR COND O 06/09/2017 KESHAV CHISHOLM MD Ot Z79.02 STAFF NURSE MIDWIFE (CURRENT) USE OF ANTITHROMBOTI 06/09/2017 KESHAV CHISHOLM MD Ot Z79.82 STAFF NURSE MIDWIFE (CURRENT) USE OF ASPIRIN 06/09/2017 KESHAV CHISHOLM MD Ot Z86.010 PERSONAL HISTORY OF COLONIC POLYPS 06/09/2017 KESHAV CHISHOLM MD Ot Z95.1 PRESENCE OF AORTOCORONARY BYPASS GRAFT 06/09/2017 KESHAV CHISHOLM MD Ot Z98.1 ARTHRODESIS STATUS 06/11/2017 KESHAV CHISHOLM MD Ot D12.8 BENIGN NEOPLASM OF RECTUM 06/11/2017 KATHRINE HOYOS, KESHAV Painting Ot E78.5 HYPERLIPIDEMIA, UNSPECIFIED 06/11/2017 KATHRINE HOYOS, KESHAV Painting Ot I10 ESSENTIAL (PRIMARY) HYPERTENSION 06/11/2017 KESHAV CHISHOLM MD, Ot I25.10 ATHSCL HEART DISEASE OF [place] CORONARY 06/11/2017 KESHAV CHISHOLM MD Ot Z09 ENCNTR FOR F/U EXAM AFT TRTMT FOR COND O 06/11/2017 KESHAV CHISHOLM MD Ot Z79.02 HALF-WAY (CURRENT) USE OF ANTITHROMBOTI 06/11/2017 KESHAV CHISHOLM MD, Ot Z79.82 HALF-WAY (CURRENT) USE OF ASPIRIN 06/11/2017 KESHAV CHISHOLM MD, Ot Z86.010 PERSONAL HISTORY OF COLONIC POLYPS 06/11/2017 KESHAV CHISHOLM MD, Ot Z95.1 PRESENCE OF AORTOCORONARY BYPASS GRAFT 06/11/2017 KESHAV CHISHOLM MD, Ot Z98.1 ARTHRODESIS STATUS 06/16/2017 ESTEBAN HOYOS, ANAN Ot M75.41 IMPINGEMENT SYNDROME OF RIGHT SHOULDER 07/23/2017 KYLIE ZIMMERMAN MD Ot M19.012 PRIMARY OSTEOARTHRITIS, LEFT SHOULDER 07/23/2017 KYLIE ZIMMERMAN MD Ot M25.522 PAIN IN LEFT ELBOW 07/23/2017 KYLIE ZIMMERMAN MD Ot W19.XXXA UNSPECIFIED FALL, INITIAL ENCOUNTER 07/29/2017 KYLIE ZIMMERMAN MD Ot J44.9 CHRONIC OBSTRUCTIVE PULMONARY DISEASE, U 07/29/2017 KYLIE ZIMMERMAN MD Ot R09.02 HYPOXEMIA 08/07/2017 KYLIE ZIMMERMAN MD Ot J44.9 CHRONIC OBSTRUCTIVE [...] OF MUSC/TEND THE ROTATOR CUFF OF 08/20/2017 ELSIE HOYOS, KYLIE Rascon Ot M19.012 PRIMARY OSTEOARTHRITIS, LEFT SHOULDER 08/20/2017 ELSIE HOYOS, KYLIE Rascon Ot M25.522 PAIN IN LEFT ELBOW 08/20/2017 ELSIE HOYOS, KYLIE Rascon Ot W19.XXXA UNSPECIFIED FALL, INITIAL ENCOUNTER 09/09/2017 KATHRINE HOYOS, KESHAV Painting Ot Z01.818 ENCOUNTER FOR OTHER PREPROCEDURAL EXAMIN 09/10/2017 KESHAV CHISHOLM MD Ot Z01.818 ENCOUNTER FOR OTHER PREPROCEDURAL EXAMIN 09/12/2017 Ot 562.10 DIVERTICULOSIS COLON (W/O MENT OF HEMORR 09/12/2017 Ot 593.9 RENAL URETERAL DIS NOS 09/12/2017 Ot 733.90 BONE CARTILAGE DIS NOS 09/12/2017 Ot 722.52 LUMB/ LUMBOSAC DISC DEGEN 09/12/2017 Ot 794.8 ABN LIVER FUNCTION STUDY 09/12/2017 Ot 573.8 LIVER DISORDERS NEC 09/12/2017 Ot 600.00 HYPERTROPHY (BENIGN) OF PROSTATE W/O URI 09/12/2017 Ot 733.90 BONE CARTILAGE DIS NOS 09/12/2017 CARMEN DELVALLE N AUTOMOTIVE ASSEMBLER Ot 550.90 UNILAT INGUINAL HERNIA 09/12/2017 CARMEN DELVALLE AUTOMOTIVE ASSEMBLER Ot 562.10 DIVERTICULOSIS COLON (W/O MENT OF HEMORR 09/12/2017 CARMEN DELVALLE N AUTOMOTIVE ASSEMBLER Ot 591 HYDRONEPHROSIS 09/12/2017 CARMEN DELVALLE AUTOMOTIVE ASSEMBLER Ot 592.1 CALCULUS OF URETER 09/12/2017 CHRISTIAN HOYOS, CASSANDRA Painting Ot 715.35 LOC OSTEOARTH NOS-PELVIS 09/12/2017 CHRISTIAN HOYOS, CASSANDRA Painting Ot 724.2 LUMBAGO 09/12/2017 CHRISTIAN HOYOS, CASSANDRA Painting Ot 724.6 DISORDERS OF SACRUM 09/12/2017 GRAHAM HOYOS, MELISSA Painting Ot I25.10 ATHSCL HEART DISEASE OF [place] CORONARY 09/12/2017 DELMY HOYOS, SELENE Rascon Ot G54.1 LUMBOSACRAL PLEXUS DISORDERS 09/12/2017 KATHRINE HOYOS, KESHAV Painting Ot D12.8 BENIGN NEOPLASM OF RECTUM 09/12/2017 KATHRINE HOYOS, KESHAV Painting Ot K57.30 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 AB 09/12/2017 KATHRINE HOYOS, KESHAV Painting Ot K63.5 POLYP OF COLON 09/12/2017 KESHAV CHISHOLM MD Ot Z12.11 ENCOUNTER FOR SCREENING FOR MALIGNANT NE 09/12/2017 ALONZO HOYOS, MARIO Painting Ot E04.1 NONTOXIC SINGLE THYROID NODULE 09/12/2017 SOLO MENDEZ Ot R42 DIZZINESS AND GIDDINESS 09/12/2017 SOLO MENDEZ Ot R51 HEADACHE 09/12/2017 SOLO MENDEZ Ot R53.83 OTHER FATIGUE 09/12/2017 SOLO MENDEZ Ot R93.0 ABNORMAL FINDINGS ON DX IMAGING OF SKULL 09/12/2017 SOLO MENDEZ Ot H53.8 OTHER VISUAL DISTURBANCES 09/12/2017 SOLO MENDEZ Ot R42 DIZZINESS AND GIDDINESS 09/12/2017 KYLIE ZIMMERMAN MD Ot J44.9 CHRONIC OBSTRUCTIVE PULMONARY DISEASE, U 09/12/2017 KYLIE ZIMMERMAN MD Ot R09.02 HYPOXEMIA 09/12/2017 KYLIE ZIMMERMAN MD Ot M19.012 PRIMARY OSTEOARTHRITIS, LEFT SHOULDER 09/12/2017 KYLIE ZIMMERMAN MD Ot M25.522 PAIN IN LEFT ELBOW 09/12/2017 KYLIE ZIMMERMAN MD Ot W19.XXXA UNSPECIFIED FALL, INITIAL ENCOUNTER 09/12/2017 SONIA CHONG MD Ot M25.512 PAIN IN LEFT SHOULDER 09/12/2017 SONIA CHONG MD Ot S46.011D STRAIN OF MUSC/TEND THE ROTATOR CUFF OF 09/12/2017 KESHAV CHISHOLM MD Ot D12.8 BENIGN NEOPLASM OF RECTUM 09/12/2017 KESHAV CHISHOLM MD Ot I10 ESSENTIAL (PRIMARY) HYPERTENSION 09/12/2017 KESHAV CHISHOLM MD Ot I25.10 ATHSCL HEART DISEASE OF [place] CORONARY 09/12/2017 KESHAV CHISHOLM MD Ot Z79.02 HALF-WAY (CURRENT) USE OF ANTITHROMBOTI 09/12/2017 KESHAV CHISHOLM MD Ot Z79.82 STAFF NURSE MIDWIFE (CURRENT) USE OF ASPIRIN 09/12/2017 KESHAV CHISHOLM MD Ot Z95.1 PRESENCE OF AORTOCORONARY BYPASS GRAFT 09/14/2017 KESHAV CHISHOLM MD Ot D12.8 BENIGN NEOPLASM OF RECTUM 09/14/2017 KESHAV CHISHOLM MD Ot E78.5 HYPERLIPIDEMIA, UNSPECIFIED 09/14/2017 KESHAV CHISHOLM MD Ot I10 ESSENTIAL (PRIMARY) HYPERTENSION 09/14/2017 KESHAV CHISHOLM MD Ot I25.10 ATHSCL HEART DISEASE OF [place] CORONARY 09/14/2017 KESHAV CHISHOLM MD Ot 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 09/14/2017 KESHAV CHISHOLM MD Ot M75.91 SHOULDER LESION, UNSPECIFIED, RIGHT SHOU 09/14/2017 KESHAV CHISHOLM MD Ot M75.92 SHOULDER LESION, UNSPECIFIED, LEFT SHOUL 09/14/2017 KESHAV CHISHOLM MD Ot Z79.02 HALF-WAY (CURRENT) USE OF ANTITHROMBOTI 09/14/2017 KESHAV CHISHOLM MD Ot Z79.82 HALF-WAY (CURRENT) USE OF ASPIRIN 09/14/2017 KESHAV CHISHOLM MD Ot Z79.899 OTHER HALF-WAY (CURRENT) DRUG THERAPY 09/14/2017 KESHAV CHISHOLM MD, Ot Z87.891 PERSONAL HISTORY OF NICOTINE DEPENDENCE 09/14/2017 KESHAV CHISHOLM MD Ot Z95.1 PRESENCE OF AORTOCORONARY BYPASS GRAFT 09/15/2017 KESHAV CHISHOLM MD Ot Z01.818 ENCOUNTER FOR OTHER PREPROCEDURAL EXAMIN 09/15/2017 SONIA CHONG MD Ot M25.512 PAIN IN LEFT SHOULDER 09/15/2017 SONIA CHONG MD Ot S46.011D STRAIN OF MUSC/TEND THE ROTATOR CUFF OF 09/16/2017 KESHAV CHISHOLM MD Ot D12.8 BENIGN NEOPLASM OF RECTUM 09/16/2017 KESHAV CHISHOLM MD Ot I10 ESSENTIAL (PRIMARY) HYPERTENSION 09/16/2017 KESHAV CHISHOLM MD Ot I25.10 ATHSCL HEART DISEASE OF [place] CORONARY 09/16/2017 KESHAV CHISHOLM MD Ot Z79.02 HALF-WAY (CURRENT) USE OF ANTITHROMBOTI 09/16/2017 KESHAV CHISHOLM MD Ot Z79.82 STAFF NURSE MIDWIFE (CURRENT) USE OF ASPIRIN 09/16/2017 KESHAV CHISHOLM MD Ot Z95.1 PRESENCE OF AORTOCORONARY BYPASS GRAFT 09/17/2017 SONIA CHONG MD Ot M25.512 PAIN IN LEFT SHOULDER 09/17/2017 SONIA CHONG MD Ot S46.011D STRAIN OF MUSC/TEND THE ROTATOR CUFF OF 09/18/2017 KESHAV CHISHOLM MD Ot E78.5 HYPERLIPIDEMIA, UNSPECIFIED 09/18/2017 KESHAV CHISHOLM MD Ot I10 ESSENTIAL (PRIMARY) HYPERTENSION 09/18/2017 KESHAV CHISHOLM MD Ot I25.10 ATHSCL HEART DISEASE OF [place] CORONARY 09/18/2017 KESHAV CHISHOLM MD Ot 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 09/18/2017 KESHAV CHISHOLM MD Ot M75.91 SHOULDER LESION, UNSPECIFIED, RIGHT SHOU 09/18/2017 KESHAV CHISHOLM MD Ot M75.92 SHOULDER LESION, UNSPECIFIED, LEFT SHOUL 09/18/2017 KESHAV CHISHOLM MD Ot Z79.02 STAFF NURSE MIDWIFE (CURRENT) USE OF ANTITHROMBOTI 09/18/2017 KESHAV CHISHOLM MD Ot Z79.899 OTHER HALF-WAY (CURRENT) DRUG THERAPY 09/18/2017 KESHAV CHISHOLM MD Ot Z87.891 PERSONAL HISTORY OF NICOTINE DEPENDENCE 09/18/2017 KESHAV CHISHOLM MD Ot Z95.1 PRESENCE OF AORTOCORONARY BYPASS GRAFT 09/18/2017 KESHAV CHISHOLM MD Ot E78.5 HYPERLIPIDEMIA, UNSPECIFIED 09/18/2017 KESHAV CHISHOLM MD Ot I10 ESSENTIAL (PRIMARY) HYPERTENSION 09/18/2017 KESHAV CHISHOLM MD Ot I25.10 ATHSCL HEART DISEASE OF [place] CORONARY 09/18/2017 KESHAV CHISHOLM MD Ot 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 09/18/2017 KESHAV CHISHOLM MD Ot M75.91 SHOULDER LESION, UNSPECIFIED, RIGHT SHOU 09/18/2017 KESHAV CHISHOLM MD Ot M75.92 SHOULDER LESION, UNSPECIFIED, LEFT SHOUL 09/18/2017 KESHAV CHISHOLM MD Ot Z79.02 HALF-WAY (CURRENT) USE OF ANTITHROMBOTI 09/18/2017 KESHAV CHISHOLM MD Ot Z79.899 OTHER HALF-WAY (CURRENT) DRUG THERAPY 09/18/2017 KESHAV CHISHOLM MD Ot Z87.891 PERSONAL HISTORY OF NICOTINE DEPENDENCE 09/18/2017 KESHAV CHISHOLM MD Ot Z95.1 PRESENCE OF AORTOCORONARY BYPASS GRAFT 10/15/2017 KESHAV CHISHOLM MD, Ot D12.8 BENIGN NEOPLASM OF RECTUM 10/15/2017 KESHAV CHISHOLM MD, Ot E78.5 HYPERLIPIDEMIA, UNSPECIFIED 10/15/2017 KSEHAV CHISHOLM MD, Ot I10 ESSENTIAL (PRIMARY) HYPERTENSION 10/15/2017 KESHAV CHISHOLM MD, Ot I25.10 ATHSCL HEART DISEASE OF [place] CORONARY 10/15/2017 KESHAV CHISHOLM MD, Ot 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 10/15/2017 KESHAV CHISHOLM MD, Ot M75.91 SHOULDER LESION, UNSPECIFIED, RIGHT SHOU 10/15/2017 KESHAV CHISHOLM MD, Ot M75.92 SHOULDER LESION, UNSPECIFIED, LEFT SHOUL 10/15/2017 KESHAV CHISHOLM MD, Ot Z79.02 STAFF NURSE MIDWIFE (CURRENT) USE OF ANTITHROMBOTI 10/15/2017 KESHAV CHISHOLM MD, Ot Z79.82 HALF-WAY (CURRENT) USE OF ASPIRIN 10/15/2017 KESHAV CHISHOLM MD, Ot Z79.899 OTHER STAFF NURSE MIDWIFE (CURRENT) DRUG THERAPY 10/15/2017 KESHAV CHISHOLM MD, Ot Z87.891 PERSONAL HISTORY OF NICOTINE DEPENDENCE 10/15/2017 KESHAV CHISHOLM MD Ot Z95.1 PRESENCE OF AORTOCORONARY BYPASS GRAFT 11/06/2017 SONIA CHONG MD Ot M25.512 PAIN IN LEFT SHOULDER 11/06/2017 SONIA CHONG MD Ot S46.011D STRAIN OF MUSC/TEND THE ROTATOR CUFF OF 11/07/2017 SONIA CHONG MD Ot M25.512 PAIN IN LEFT SHOULDER 11/07/2017 SONIA CHONG MD, Ot S46.011D STRAIN OF MUSC/TEND THE ROTATOR CUFF OF 11/11/2017 SONIA CHONG MD Ot M25.512 PAIN IN LEFT SHOULDER 11/11/2017 SONIA CHONG MD, Ot S46.011D STRAIN OF MUSC/TEND THE ROTATOR CUFF OF 11/17/2017 SONIA CHONG MD Ot M25.512 PAIN IN LEFT SHOULDER 11/17/2017 SONIA CHONG MD, Ot S46.011D STRAIN OF MUSC/TEND THE ROTATOR CUFF OF 11/22/2017 Herson Lovett W 401.9 UNSPECIFIED ESSENTIAL HYPERTENSION 11/22/2017 Herson Lovett W 989.5 TOXIC EFFECT OF VENOM 11/22/2017 Herson Lovett W I10 ESSENTIAL (PRIMARY) HYPERTENSION 11/22/2017 Herson Lovett W T63.001A TOXIC EFFECT OF UNSPECIFIED SNAKE VENOM, ACCIDENTAL (UNINTENTIONAL), INITIAL ENCOUNTER 11/23/2017 SONIA CHONG MD, Ot M25.512 PAIN IN LEFT SHOULDER 11/23/2017 SONIA CHONG MD, Ot S46.011D STRAIN OF MUSC/TEND THE ROTATOR CUFF OF 11/23/2017 Herson Lovett W 401.9 UNSPECIFIED ESSENTIAL HYPERTENSION 11/23/2017 Devon Lovettlas W 786.05 SHORTNESS OF BREATH 11/23/2017 Herson Lovett A 882.0 11/23/2017 Herson Lovett W 989.5 TOXIC EFFECT OF VENOM 11/23/2017 Herson Lovett E906.2 BITE OF NONVENOMOUS SNAKES AND LIZARDS 11/23/2017 Herson Lovett W I10 ESSENTIAL (PRIMARY) HYPERTENSION 11/23/2017 Herson Lovett W R06.02 SHORTNESS OF BREATH 11/23/2017 Herson Lovett A S61.451A OPEN BITE OF RIGHT HAND, INITIAL ENCOUNTER 11/23/2017 Herson Lovett Khushboo T63.001A TOXIC EFFECT OF UNSPECIFIED SNAKE VENOM, ACCIDENTAL (UNINTENTIONAL), INITIAL ENCOUNTER 11/23/2017 Herson Lovett Khushboo V05.9 NEED FOR PROPHYLACTIC VACCINATION AND INOCULATION AGAINST UNSPECIFIED SINGLE DISEASE 11/23/2017 Herson Lovett W W59.11XA BITTEN BY NONVENOMOUS SNAKE, INITIAL ENCOUNTER 11/23/2017 Bony Herson W Z23 ENCOUNTER FOR IMMUNIZATION 11/26/2017 SONIA CHONG MD, Ot M25.512 PAIN IN LEFT SHOULDER 11/26/2017 SONIA CHONG MD, Ot S46.011D STRAIN OF MUSC/TEND THE ROTATOR CUFF OF 11/26/2017 SONIA CHONG MD, Ot M25.512 PAIN IN LEFT SHOULDER 11/26/2017 SONIA CHONG MD, Ot S46.011D STRAIN OF MUSC/TEND THE ROTATOR CUFF OF 11/28/2017 SONIA CHONG MD, Ot M25.512 PAIN IN LEFT SHOULDER 11/28/2017 SONIA CHONG MD, Ot S46.011D STRAIN OF MUSC/TEND THE ROTATOR CUFF OF 12/14/2017 KATHRINE HOYOS, KESHAV Painting Ot D12.8 BENIGN NEOPLASM OF RECTUM 12/14/2017 KATHRINE HOYOS, KESHAV Painting Ot E78.5 HYPERLIPIDEMIA, UNSPECIFIED 12/14/2017 KATHRINE HOYOS, KESHAV Painting Ot I10 ESSENTIAL (PRIMARY) HYPERTENSION 12/14/2017 KESHAV CHISHOLM MD Ot I25.10 ATHSCL HEART DISEASE OF [place] CORONARY 12/14/2017 KATHRINE HOYOS, KESHAV Painting Ot 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 12/14/2017 KESHAV CHISHOLM MD Ot M75.91 SHOULDER LESION, UNSPECIFIED, RIGHT SHOU 12/14/2017 KESHAV CHISHOLM MD, Ot M75.92 SHOULDER LESION, UNSPECIFIED, LEFT SHOUL 12/14/2017 KESHAV CHISHOLM MD, Ot Z79.02 HALF-WAY (CURRENT) USE OF ANTITHROMBOTI 12/14/2017 KESHAV CHISHOLM MD Ot Z79.82 STAFF NURSE MIDWIFE (CURRENT) USE OF ASPIRIN 12/14/2017 KESHAV CHISHOLM MD, Ot Z79.899 OTHER STAFF NURSE MIDWIFE (CURRENT) DRUG THERAPY 12/14/2017 KESHAV CHISHOLM MD Ot Z87.891 PERSONAL HISTORY OF NICOTINE DEPENDENCE 12/14/2017 KESHAV CHISHOLM MD Ot Z95.1 PRESENCE OF AORTOCORONARY BYPASS GRAFT 12/22/2017 KWASI CAMEJO [employer] Ot M47.812 SPONDYLOSIS W/O MYELOPATHY OR RADICULOPA 12/22/2017 KWASI CAMEJO [employer] Ot M47.816 SPONDYLOSIS W/O MYELOPATHY OR RADICULOPA 12/22/2017 KWASI CAMEJO [employer] Ot M48.02 SPINAL STENOSIS, CERVICAL REGION 12/22/2017 KWASI CAMEJO [employer] Ot M50.21 OTHER CERVICAL DISC DISPLACEMENT, HIGH C 12/22/2017 KWASI CAMEJO [employer] Ot M50.30 OTHER CERVICAL DISC DEGENERATION, UNSP C 12/22/2017 KWASI CAMEJO [employer] Ot M51.36 OTHER INTERVERTEBRAL DISC DEGENERATION, 12/22/2017 KWASI CAMEJO [employer] Ot M99.73 CONN 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 01/08/2018 KWASI CAMEJO [employer] Ot M47.812 SPONDYLOSIS W/O MYELOPATHY OR RADICULOPA 01/08/2018 KWASI CAMEJO [employer] Ot M47.816 SPONDYLOSIS W/O MYELOPATHY OR RADICULOPA 01/08/2018 KWASI CAMEJO [employer] Ot M48.02 SPINAL STENOSIS, CERVICAL REGION 01/08/2018 CAMEJOKWASI [employer] WORKERS Ot M50.21 OTHER CERVICAL DISC DISPLACEMENT, HIGH C 01/08/2018 KWASI CAMEJO [employer] Ot M50.30 OTHER CERVICAL DISC DEGENERATION, UNSP C 01/08/2018 NELLKWASI [employer]RIAL WORKERS Ot M51.36 OTHER INTERVERTEBRAL DISC DEGENERATION, 01/08/2018 KWASI CAMEJO [employer] Ot 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 CONN 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 01/19/2018 KWASI CAMEJO [employer] Ot M47.812 SPONDYLOSIS W/O MYELOPATHY OR RADICULOPA 01/19/2018 CAMEJOKWASI [employer] WORK[employer] Ot M47.816 SPONDYLOSIS W/O MYELOPATHY OR RADICULOPA 01/19/2018 NELLKWASI [employer] WORKERS Ot M48.02 SPINAL STENOSIS, CERVICAL REGION 01/19/2018 NELLKWASI [employer] WORKERS Ot M50.21 OTHER CERVICAL DISC DISPLACEMENT, HIGH C 01/19/2018 CAMEJOKWASI [employer] WORKERS Ot M50.30 OTHER CERVICAL DISC DEGENERATION, UNSP C 01/19/2018 NELLKWASI Wilberto [employer] Ot M51.36 OTHER INTERVERTEBRAL DISC DEGENERATION, 01/19/2018 NELLKWASI [employer] WORK[employer] Ot M99.73 CONN 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 01/19/2018 SONIA CHONG MD Ot M25.512 PAIN IN LEFT SHOULDER 01/19/2018 SONIA CHONG MD Ot S46.011D STRAIN OF MUSC/TEND THE ROTATOR CUFF OF 02/20/2018 SONIA CHONG MD Ot M25.512 PAIN IN LEFT SHOULDER 02/20/2018 SONIA CHONG MD Ot S46.011D STRAIN OF MUSC/TEND THE ROTATOR CUFF OF 02/27/2018 KESHAV CHISHOLM MD Ot D12.8 BENIGN NEOPLASM OF RECTUM 02/27/2018 KESHAV CHISHOLM MD Ot E78.5 HYPERLIPIDEMIA, UNSPECIFIED 02/27/2018 KESHAV CHISHOLM MD Ot I10 ESSENTIAL (PRIMARY) HYPERTENSION 02/27/2018 KESHAV CHISHOLM MD Ot I25.10 ATHSCL HEART DISEASE OF [place] CORONARY 02/27/2018 KESHAV CHISHOLM MD, Ot 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 02/27/2018 KESHAV CHISHOLM MD, Ot M75.91 SHOULDER LESION, UNSPECIFIED, RIGHT SHOU 02/27/2018 KESHAV CHISHOLM MD, Ot M75.92 SHOULDER LESION, UNSPECIFIED, LEFT SHOUL 02/27/2018 KESHAV CHISHOLM MD, Ot Z79.02 STAFF NURSE MIDWIFE (CURRENT) USE OF ANTITHROMBOTI 02/27/2018 KESHAV CHISHOLM MD, Ot Z79.82 STAFF NURSE MIDWIFE (CURRENT) USE OF ASPIRIN 02/27/2018 KESHAV CHISHOLM MD, Ot Z79.899 OTHER STAFF NURSE MIDWIFE (CURRENT) DRUG THERAPY 02/27/2018 KESHAV CHISHOLM MD, Ot Z87.891 PERSONAL HISTORY OF NICOTINE DEPENDENCE 02/27/2018 KESHAV CHISHOLM MD, Ot Z95.1 PRESENCE OF AORTOCORONARY BYPASS GRAFT 06/08/2018 KESHAV CHISHOLM MD, Ot Z01.818 ENCOUNTER FOR OTHER PREPROCEDURAL EXAMIN 06/10/2018 KESHAV CHISHOLM MD, Ot Z01.818 ENCOUNTER FOR OTHER PREPROCEDURAL EXAMIN 06/10/2018 KESHAV CHISHOLM MD, Ot Z01.818 ENCOUNTER FOR OTHER PREPROCEDURAL EXAMIN [...] urinalysis with reflex to culture NO NRG Complete blood count (CBC) with automated white blood cell (WBC) differential - 09/12/17 20:25 Blood leukocytes automated count (number/volume) 6.8 10*3/uL 4.3-11.0 Blood erythrocytes automated count (number/volume) 5.27 10*6/uL 4.35-5.85 Venous blood hemoglobin measurement (mass/volume) 15.2 g/dL 13.3-17.7 Blood hematocrit (volume fraction) 46 % 40-54 Automated erythrocyte mean corpuscular volume 88 [foz_us] 80-99 Automated erythrocyte mean corpuscular hemoglobin (mass per erythrocyte) 29 pg 25-34 Automated erythrocyte mean corpuscular hemoglobin concentration measurement ( mass/volume) 33 g/dL 32-36 Automated erythrocyte distribution width ratio 14.9 % 10.0-14.5 Automated blood platelet count (count/volume) 331 10*3/uL 130-400 Automated blood platelet mean volume measurement 9.5 [foz_us] 7.4-10.4 Automated blood neutrophils/100 leukocytes 52 % 42-75 Automated blood lymphocytes/100 leukocytes 30 % 12-44 Blood monocytes/100 leukocytes 14 % 0-12 Automated blood eosinophils/100 leukocytes 4 % 0-10 Automated blood basophils/100 leukocytes 1 % 0-10 Blood neutrophils automated count (number/volume) 3.5 10*3 1.8-7.8 Blood lymphocytes automated count (number/volume) 2.0 10*3 1.0-4.0 Blood monocytes automated count (number/volume) 0.9 10*3 0.0-1.0 Automated eosinophil count 0.3 10*3/uL 0.0-0.3 Automated blood basophil count (count/volume) 0.1 10*3/uL 0.0-0.1 Comprehensive metabolic panel - 09/12/17 20:45 Serum or plasma sodium measurement (moles/volume) 140 mmol/L 135-145 Serum or plasma potassium measurement (moles/volume) 3.9 mmol/L 3.6-5.0 Serum or plasma chloride measurement (moles/volume) 106 mmol/L 98-107 Carbon dioxide 23 mmol/L 21-32 Serum or plasma anion gap determination (moles/volume) 11 mmol/L 5-14 Serum or plasma urea nitrogen measurement (mass/volume) 9 mg/dL 7-18 Serum or plasma creatinine measurement (mass/volume) 0.94 mg/dL 0.60-1.30 Serum or plasma urea nitrogen/creatinine mass ratio 10 NRG Serum or plasma creatinine measurement with calculation of estimated glomerular filtration rate > NRG Serum or plasma glucose measurement (mass/volume) 109 mg/dL 70-105 Serum or plasma calcium measurement (mass/volume) 8.7 mg/dL 8.5-10.1 Serum or plasma total bilirubin measurement (mass/volume) 0.6 mg/dL 0.1-1.0 Serum or plasma alkaline phosphatase measurement (enzymatic activity/volume) 59 U/L 40-136 Serum or plasma aspartate aminotransferase measurement (enzymatic activity/ volume) 18 U/L 5-34 Serum or plasma alanine aminotransferase measurement (enzymatic activity/volume ) 15 U/L 0-55 Serum or plasma protein measurement (mass/volume) 5.8 g/dL 6.4-8.2 Serum or plasma albumin measurement (mass/volume) 3.7 g/dL 3.2-4.5 Blood type T Indirect antibody screen panel - 09/12/17 20:45 ABO+Rh group OP NR Transfusion band number [id number] [facility] Blood group antibody screen NEGATIVE [facility] PT panel in platelet poor plasma by coagulation assay - 09/12/17 20:45 Prothrombin time (PT) in platelet poor plasma by coagulation assay 13.3 s 12.2-14.7 INR in platelet poor plasma or blood by coagulation assay 1.0 0.8-1.4 Activated partial thromboplastin time (aPTT) in platelet poor plasma bycoagulation assay - 09/12/17 20:45 Activated partial thromboplastin time (aPTT) in platelet poor plasma bycoagulation assay 26 s 24-35 Complete blood count (CBC) with automated white blood cell (WBC) differential - 09/13/17 04:55 Blood leukocytes automated count (number/volume) 5.0 10*3/uL 4.3-11.0 Blood erythrocytes automated count (number/volume) 4.56 10*6/uL 4.35-5.85 Venous blood hemoglobin measurement (mass/volume) 13.0 g/dL 13.3-17.7 Blood hematocrit (volume fraction) 40 % 40-54 Automated erythrocyte mean corpuscular volume 89 [foz_us] 80-99 Automated erythrocyte mean corpuscular hemoglobin (mass per erythrocyte) 29 pg 25-34 Automated erythrocyte mean corpuscular hemoglobin concentration measurement ( mass/volume) 32 g/dL 32-36 Automated erythrocyte distribution width ratio 14.9 % 10.0-14.5 Automated blood platelet count (count/volume) 293 10*3/uL 130-400 Automated blood platelet mean volume measurement 9.5 [foz_us] 7.4-10.4 Automated blood neutrophils/100 leukocytes 54 % 42-75 Automated blood lymphocytes/100 leukocytes 28 % 12-44 Blood monocytes/100 leukocytes 12 % 0-12 Automated blood eosinophils/100 leukocytes 5 % 0-10 Automated blood basophils/100 leukocytes 2 % 0-10 Blood neutrophils automated count (number/volume) 2.7 10*3 1.8-7.8 Blood lymphocytes automated count (number/volume) 1.4 10*3 1.0-4.0 Blood monocytes automated count (number/volume) 0.6 10*3 0.0-1.0 Automated eosinophil count 0.3 10*3/uL 0.0-0.3 Automated blood basophil count (count/volume) 0.1 10*3/uL 0.0-0.1 Whole blood basic metabolic panel - 09/13/17 04:55 Serum or plasma sodium measurement (moles/volume) 139 mmol/L 135-145 Serum or plasma potassium measurement (moles/volume) 3.9 mmol/L 3.6-5.0 Serum or plasma chloride measurement (moles/volume) 112 mmol/L 98-107 Carbon dioxide 22 mmol/L 21-32 Serum or plasma anion gap determination (moles/volume) 5 mmol/L 5-14 Serum or plasma urea nitrogen measurement (mass/volume) 9 mg/dL 7-18 Serum or plasma creatinine measurement (mass/volume) 0.76 mg/dL 0.60-1.30 Serum or plasma urea nitrogen/creatinine mass ratio 12 NRG Serum or plasma creatinine measurement with calculation of estimated glomerular filtration rate > NRG Serum or plasma glucose measurement (mass/volume) 110 mg/dL 70-105 Serum or plasma calcium measurement (mass/volume) 8.0 mg/dL 8.5-10.1 Automated blood complete blood count (hemogram) panel - 09/14/17 05:10 Blood leukocytes automated count (number/volume) 4.9 10*3/uL 4.3-11.0 Blood erythrocytes automated count (number/volume) 4.37 10*6/uL 4.35-5.85 Venous blood hemoglobin measurement (mass/volume) 12.5 g/dL 13.3-17.7 Blood hematocrit (volume fraction) 39 % 40-54 Automated erythrocyte mean corpuscular volume 89 [foz_us] 80-99 Automated erythrocyte mean corpuscular hemoglobin (mass per erythrocyte) 29 pg 25-34 Automated erythrocyte mean corpuscular hemoglobin concentration measurement ( mass/volume) 32 g/dL 32-36 Automated erythrocyte distribution width ratio 14.9 % 10.0-14.5 Automated blood platelet count (count/volume) 285 10*3/uL 130-400 Automated blood platelet mean volume measurement 9.4 [foz_us] 7.4-10.4 BNP - 11/22/17 21:35 BNP 28.80 pg/ml 0.00-100.00 Encounters ACCT No. Visit Date/Time Discharge Status Pt. Type Provider Facility Loc./Unit Complaint [id number] 06/10/2018 09:30:00 06/10/2018 09:38:00 DIS Outpatient KATHRINE HOYOS, KESHAV Painting [facility] PREOP SIGMOIDOSCOPY [id number] 02/20/2018 08:26:00 02/20/2018 09:20:00 DIS Outpatient SONIA CHONG MD [facility] REHAB MASSIVE R RCR; L SHOULDER PAIN [id number] 12/17/2017 10:37:00 12/17/2017 23:59:59 CLS Outpatient CAMEJOKWASI HARLEY [facility] RAD CERVICAL AND LOW BACK PAIN [id number] 11/17/2017 08:32:00 11/23/2017 00:01:00 DIS Outpatient SONIA CHONG MD [facility] REHAB MASSIVE R RCR; L SHOULDER PAIN [id number] 10/28/2017 08:30:00 11/06/2017 00:01:00 DIS Outpatient SONIA CHONG MD [facility] REHAB MASSIVE R RCR; L SHOULDER PAIN [id number] 09/12/2017 23:05:00 09/14/2017 09:50:00 DIS [facility]CTAL POLYPECTOMY [id number] 09/12/2017 08:30:00 09/12/2017 12:40:00 DIS Outpatient KESHAV CHISHOLM MD [facility] ENDO SURVEILLANCE RECTAL VILLOUS ADENOMA [id number] 09/09/2017 05:59:00 09/09/2017 10:11:00 DIS Outpatient KESHAV CHISHOLM MD [facility] PREOP SIGMOIDOSCOPY [id number] 07/22/2017 11:31:00 07/22/2017 23:59:59 CLS Outpatient KYLIE ZIMMERMAN MD [facility] RAD LEFT SHOULDER PAIN [id number] 07/09/2017 07:07:00 07/09/2017 23:59:59 CLS Outpatient KYLIE ZIMMERMAN MD [facility] RT HYPOXEMIA,COPD [id number] 05/08/2017 10:25:00 06/16/2017 16:00:00 DIS Outpatient ANNA ORELLANA MD [facility] REHAB R SHOULDER PAIN [id number] 05/23/2017 06:49:00 05/23/2017 09:00:00 DIS Outpatient KESHAV CHISHOLM MD [facility] ENDO RECTAL VILLOUS ADENOMA [id number] 05/21/2017 21:00:00 05/22/2017 06:35:00 DIS Outpatient KYLIE ZIMMERMAN MD [facility] SLEEP SLEEP RELATED HYPOVENTILATION G47.36 [id number] 05/19/2017 12:00:00 05/19/2017 12:37:00 DIS Outpatient KESHAV CHISHOLM MD [facility] PREOP SIGMOIDOSCOPY [id number] 05/05/2017 10:48:00 05/07/2017 00:01:00 DIS [facility] [id number] 02/25/2017 00:10:00 02/25/2017 23:59:59 CLS Preadmit KULWANT NOGUEIRA MD [facility] REHAB NECK PAIN [id number] 01/30/2017 08:57:00 02/24/2017 00:10:00 DIS Outpatient [facility] [id number] 11/22/2016 11:16:00 11/23/2016 00:01:00 DIS Outpatient KULWANT NOGUEIRA MD [facility] REHAB NECK PAIN [id number] 08/21/2016 10:07:00 08/21/2016 23:59:59 CLS Outpatient SOLO MENDEZ [facility] RAD DIZZINESS, ABNORMAL CT [id number] 08/16/2016 06:56:00 08/16/2016 13:40:00 DIS Outpatient KESHAV CHISHOLM MD [facility] ENDO VILLIOUS ADENOUS RECTUM [id number] 08/14/2016 05:31:00 08/14/2016 14:27:00 DIS Outpatient KESHAV CHISHOLM MD [facility] PREOP VILLIOUS ADENOUS RECTUM [id number] 08/08/2016 16:49:00 08/08/2016 23:59:59 CLS Outpatient SOLO MENDEZ [facility] RAD DIZZNINESS,BLURRY VISION [id number] 02/12/2016 10:24:00 02/12/2016 23:59:59 CLS Outpatient MARIO ROSADO MD [facility] RAD THYROID NODULE [id number] 09/15/2015 08:51:00 09/15/2015 23:59:59 CLS Outpatient KESHAV CHISHOLM MD [facility] SDC SCREENING [id number] 09/11/2015 05:41:00 09/11/2015 09:34:00 DIS Outpatient KESHAV CHISHOLM MD [facility] PREOP SCREENING [id number] 09/01/2015 08:28:00 09/04/2015 11:08:00 DIS Outpatient KULWANT NOGUEIRA MD [facility] REHAB NECK PAIN [id number] 07/31/2015 14:10:00 07/31/2015 18:06:00 DIS Emergency KODI ESQUEDA APRN [facility] ER DIZZINESS CHEST PAIN/SOA [id number] 07/14/2015 11:28:00 07/14/2015 23:59:59 CLS Outpatient SELENE BROCK MD [facility] CARD LESION L3 [id number] 04/13/2015 08:25:00 04/13/2015 13:05:00 DIS Outpatient MELISSA STEVENSON MD [facility] REHAB GENERAL MUSCLE WEAKNESS, GAIT ATAXIA [id number] 02/22/2015 15:00:00 02/28/2015 00:01:00 DIS Outpatient MELISSA STEVENSON MD [facility] REHAB GENERAL MUSCLE WEAKNESS, GAIT ATAXIA [id number] 11/30/2014 15:02:00 11/30/2014 23:59:59 CLS Outpatient MELISSA STEVENSON MD [facility] LAB CAD [id number] 08/03/2014 12:04:00 08/03/2014 23:59:59 CLS Preadmit CASSANDRA GONZALES MD [facility] REHAB [id number] 04/08/2014 13:13:00 04/08/2014 18:55:00 DIS Emergency SOLO MENDEZ [facility] ER POSS MINI STROKE [id number] 12/21/2013 14:24:00 12/21/2013 23:59:59 CLS Outpatient CASSANDRA GONZALES MD [facility] RAD LOW BACK PAIN, HIP PAIN [id number] 10/27/2013 15:39:00 10/27/2013 23:59:59 CLS Outpatient DELVALLECARMEN [employer] [facility] RAD ABD PAIN [id number] 06/12/2018 06:53:00 ACT Outpatient KESHAV CHISHOLM MD [facility] ENDO VILLOUS ADENOMA DISTAL RECTUM [id number] 04/06/2012 11:46:00 Document Registration [id number] 04/02/2012 08:16:00 Document Registration [id number] 03/31/2012 14:04:00 Document Registration [id number] 03/04/2017 09:09:01 03/04/2017 23:59:59 CLS Outpatient [id number] 11/22/2017 20:50:00 11/23/2017 10:30:00 DIS Outpatient Herson Lovett [facility] MED-SURG [id number] 11/22/2017 21:31:44 Document Registration [id number] 12/05/2014 15:05:58 ACT Document Registration
[2018-06-12 10:35] VITALS: BP 135/81
[2018-06-12 11:10] VITALS: BP 137/73
[2018-06-12 11:20] VITALS: BP 137/73
--- NOTE | 2018-06-12 20:53 | OPERATIVE REPORT ---
DATE OF SERVICE: 06/12/2018 COLONOSCOPY SUMMARY INDICATION FOR THE PROCEDURE: Recurrent distal rectal villous adenoma. The patient was placed in left lateral decubitus position. Prior to the undergoing colonoscopy, digital rectal evaluation was performed. A digital evaluation was compatible with some recurrent polyp tissue. There was no induration. Colon was pliant, nothing was fixed with no blood. The colonoscope was inserted into the rectum and then advanced to the cecum. The patient tolerated the procedure well. FINDINGS: There was evidence for current villous adenoma. It had a benign appearance. No inflammatory change or ulceration was noted. There has been no previous evidence for dysplasia and that is centered around the 9 o'clock position in the rectum. Two segments were snared and submitted for histopathology with blood loss estimated about 5 mL. There was still some stool present. So, the patient was sent back for tap water enemas. He was brought back about an hour and half later. The base looked fairly clean. I could not identify any definitive polyp tissue, but clot was present. Two biopsies with cauterization were performed and submitted for histopathology. ASSESSMENT AND PLAN: Recurrent villous adenoma was removed via combination of snare and hot forceps as noted above. We will await histopathology report and we will likely have the patient return for digital rectal evaluation in 6 months as long as there is no evidence for dysplasia or malignancy. The patient was again reminded to hold aspirin and Plavix for a week to reduce bleeding risk. Sincerely, Job ID: [id number] DocumentID: [id number] Dictated Date: 06/12/2018 10:32:46 Tosser Date: 06/12/2018 20:52:39 Dictated By: KESHAV CHISHOLM MD
== END 2018-06-12 11:20 | disposition home or self-care (01) ==
LOC: ENDO 06:53
PROVIDERS: ATTEND Internal Medicine
DX: D12.8 Benign neoplasm of rectum (principal)
CPT/HCPCS: 88305

== ENCOUNTER → 2018-06-29 | Outpatient (CLI) | payer MEDICARE ==
--- NOTE | 2018-06-29 12:05 | Diagnostic Imaging Report ---
INDICATION: Right shoulder pain TECHNIQUE: Three views of the right shoulder CORRELATION STUDY: None FINDINGS: Lucencies with sclerotic margins through the humeral head are present likely chronic in nature. This could be owing to prior traumatic changes. Slightly more focal lucency at the superolateral aspect of the humeral head could be reflective of a prior Hill-Sachs fracture deformity. The glenohumeral alignment maintained. Minimal osteophyte about the inferior glenoid and humeral head. Acromioclavicular joint with hypertrophic changes. Patient's poststernotomy. Vascular sten over left high paramediastinal region. IMPRESSION: 1. Negative for acute bony abnormality about the shoulder. Likely prior chronic and/or degenerative change about the shoulder. Dictated by: Dictated on workstation # [id number]
== END ==
LOC: RAD 10:59
PROVIDERS: ATTEND Nurse Practitioner Family
DX: M25.511 Pain in right shoulder (principal)
CPT/HCPCS: 73030

== ENCOUNTER 2018-12-13 07:43 | Emergency (ER) | payer MEDICARE ==
--- NOTE | 2018-12-13 08:40 | NUR ---
Pt called to rm and pt not in waiting room.
--- NOTE | 2018-12-13 08:56 | NUR ---
Pt not in waiting room at this time
== END 2018-12-13 08:57 | disposition left against medical advice (07) ==
LOC: EDUNIT# 07:43 → ER 07:44
DX: M54.9 Dorsalgia, unspecified (principal); K62.5 Hemorrhage of anus and rectum

== ENCOUNTER 2018-12-16 09:06 | Outpatient (RCR) | payer MEDICARE ==
[2018-12-22] MEDS ORDERED: ONDA8TAB6 PO (06:39)
[2018-12-22] MEDS ORDERED: TAMS0.4C98 PO (06:39)
[2018-12-22] MEDS ORDERED: SULF1TAB35 PO (08:53)
[2018-12-22] MEDS ORDERED: PHEN-640 PO (08:53)
== END 2018-12-21 | disposition home or self-care (01) ==
PROVIDERS: ATTEND Orthopaedic Surgery
DX: M25.511 Pain in right shoulder (principal); Z98.890 Other specified postprocedural states

== ENCOUNTER 2018-12-21 05:54 | Outpatient (CLI) | payer MEDICARE ==
[~2018-12-21] VITALS: Ht 177 cm; Wt 90.9 kg
[2018-12-22] MEDS ORDERED: ONDA8TAB6 PO (06:39)
[2018-12-22] MEDS ORDERED: TAMS0.4C98 PO (06:39)
[2018-12-22] MEDS ORDERED: SULF1TAB35 PO (08:53)
[2018-12-22] MEDS ORDERED: PHEN-640 PO (08:53)
== END 2018-12-21 15:19 | disposition home or self-care (01) ==
LOC: PREOP 05:54
PROVIDERS: ATTEND Urology
DX: Z01.818 Encounter for other preprocedural examination (principal)

== ENCOUNTER 2018-12-22 05:59 | Day surgery (SDC) | payer MEDICARE ==
[~2018-12-22] VITALS: Ht 177 cm; Wt 91.4 kg
[2018-12-22] VITALS (9 sets, daily range): BP systolic 89–141; BP diastolic 53–81
[2018-12-22] MEDS ORDERED: LACTATED RINGERS 1,000 ML IV PRN (06:27)
[2018-12-22] MEDS ORDERED: cefTRIAXone FOR IV USE 1,000 MG in WATER (STERILE) FOR INJECTION 10 ML IV ONE (06:30)
[2018-12-22] MEDS ORDERED: ONDA8TAB6 PO (06:39)
[2018-12-22] MEDS ORDERED: TAMS0.4C98 PO (06:39)
[2018-12-22] MEDS ORDERED: CATHETER FLUSH 10 ML SYR IV PRN (06:45)
[2018-12-22] MEDS ORDERED: ONDANSETRON 4 MG/2 ML (SDV) Z0FRAN ONE (06:55)
[2018-12-22] MEDS ORDERED: LIDOCAINE PF 2% 5 ML (XYLOCAINE) VIAL ONE (06:55)
[2018-12-22] MEDS ORDERED: fentaNYL INJECTION 100 MCG/2 ML AMP ONE (06:55)
[2018-12-22] MEDS ORDERED: SEVOFLURANE (ULTANE) 15 ML INHAL SOLN ONE (06:55)
[2018-12-22] MEDS ORDERED: proPOfol 200 MG/20 ML (DIPRIVAN) VIAL IV ONE (06:55)
--- NOTE | 2018-12-22 06:55 | Progress Note-Pre Operative ---
Pre-Operative Progress Note H&P Reviewed The H&P was reviewed, patient examined and no changes noted. Date Seen by Provider: Dec 22, 2018 Time Seen by Provider: 06:55 Date H&P Reviewed: Dec 22, 2018 Time H&P Reviewed: 06:55 Pre-Operative Diagnosis: LT URETERAL STONE SELENE BROCK MD Dec 22, 2018 06:55 POS
[2018-12-22] MEDS ORDERED: MIDAZOLAM 2 MG/2 ML (VERSED) VIAL ONE (06:56)
--- NOTE | 2018-12-22 06:59 | Diagnostic Imaging Report ---
INDICATION: Preoperative evaluation for left ureteral stone. FINDINGS: Supine view of the abdomen demonstrates nonvisualization of the ureteral calculi. Bowel gas pattern appears normal. Degenerative change is present in the spine. IMPRESSION: There is nonvisualization of the ureteral calculi. Dictated by: Dictated on workstation # [id number]
--- NOTE | 2018-12-22 07:00 | Progress Note-Post Operative ---
Post-Operative Progess Note Surgeon (s)/Examination Grader (s) Surgeon SELENE BROCK MD Examination Grader: NONE Pre-Operative Diagnosis LT URETERAL STONE Post-Operative Diagnosis SAME Procedure & Operative Findings Date of Procedure 12/22/18 Procedure Performed/Findings CYSTOSCOPY, LT URETEROSCOPY, LT RETROGRADE UROGRAM Anesthesia Type GENERAL Estimated Blood Loss Estimated blood loss (mL): NONE Specimens/Packing Specimens Removed NONE Packing: NONE SELENE BROCK MD Dec 22, 2018 07:00 POS
--- NOTE | 2018-12-22 07:02 | Discharge Inst-Urology ---
Discharge Inst-Urology Reconcile Patient Problems Problems Reviewed?: Yes Final Diagnosis LT URETERAL STONE Patient Instructions/Follow Up Plan/Assessment/Instructions Tomorrow, if no bleeding, may resume Plavix, hold it again Friday 12/29 Please make appointment to been seen in office Friday 01/05 Increase oral fluids for 48 hours and then as needed. Diet and Activity as tolerated. If questions or concerns contact your physician Or seek help at emergency department. SELENE BROCK MD Dec 22, 2018 07:02 POS
[2018-12-22] MEDS ORDERED: ROCURONIUM 10 MG/ML 5 ML SYRINGE IV ONE (07:04)
[2018-12-22] MEDS ORDERED: DEXAMETHASONE 10 MG/ML (DECADRON) 1 ML VIAL ONE (07:04)
[2018-12-22] MEDS ORDERED: IOPAMIDOL 61% 30 ML (ISOVUE 300) VIAL IV ONE (07:29)
[2018-12-22] MEDS ORDERED: PHEN-640 PO (08:53)
[2018-12-22] MEDS ORDERED: SULF1TAB35 PO (08:53)
--- NOTE | 2018-12-22 09:57 | Anesthesia-General Post-Op ---
General Patient Condition Mental Status/LOC: Same as Preop Cardiovascular: Satisfactory Nausea/Vomiting: Absent Respiratory: Satisfactory Pain: Controlled Complications: Absent Post Op Complications Complications None Follow Up Care/Instructions Patient Instructions None needed. Anesthesia/Patient Condition Patient Condition Patient is doing well, no complaints, stable vital signs, no apparent adverse anesthesia problems. No complications reported per nursing. PAOLO REY CRNA Dec 22, 2018 09:57 POS
[2018-12-22] MEDS ORDERED: PHENAZOPYRIDINE 100 MG (PYRIDIUM) TABLET PO ONE (10:00)
[2018-12-22] MEDS ORDERED: PHENAZOPYRIDINE 100 MG (PYRIDIUM) TABLET ONE (10:01)
--- NOTE | 2018-12-22 13:39 | OPERATIVE REPORT ---
DATE OF SERVICE: 12/22/2018 PREOPERATIVE DIAGNOSIS: Left ureteral stone. POSTOPERATIVE DIAGNOSIS: Left ureteral stone. OPERATION PERFORMED: Cystoscopy with left ureteroscopy and left retrograde urogram. SURGEON: Warner Brock MD ANESTHESIA: General. COMPLICATIONS: None. DESCRIPTION OF PROCEDURE: Under satisfactory general anesthesia, the patient in lithotomy position, genitalia were prepped and draped in the usual sterile fashion. Cystoscope was introduced under vision. The anterior urethra was normal. The prostate was mildly enlarged with mild bladder neck obstruction. The bladder was entered. Ureteric orifices were displaced upward and laterally and left stone was kind of tight, but clear efflux equal on both sides. Using the foroblique lens, I dilated the left ureteral orifice intramural portion to accommodate a 6.9 Turkish semi-rigid ureteroscope. I went up to the proximal ureter back and forth and could not visualize any stones, back it up and injected contrast. There was no filling defect, no dilatation and complete fast emptying of the whole system. I went ahead and removed the ureteroscope, reinserted the cystoscope, passed a 6-Turkish ureteral catheter all the way up to the left renal pelvis up and down with no obstruction and no filling of any stones. I removed it, emptied the bladder, removed the cystoscope. The patient tolerated the procedure and anesthesia well and was sent to recovery room in stable condition. PLAN: We will see how he does. If he continues to have pain, we will get a CAT scan to see what is going on. Since his CAT scan was originally done in [place], I could not have any record of it except the report and then I told his that he can resume his Plavix, but hold it next Friday in case we need to do ESWL on the following Friday when the machine is going to be here. Job ID: [id number] DocumentID: [id number] Dictated Date: 12/22/2018 07:48:17 Engineering Mechanic Date: 12/22/2018 13:38:01 Dictated By: WARNER BROCK MD
== END 2018-12-22 10:15 | disposition home or self-care (01) ==
LOC: SDC 05:59
PROVIDERS: ATTEND Urology
DX: N20.1 Calculus of ureter (principal); N40.1 Benign prostatic hyperplasia with lower urinary tract symptoms; N13.8 Other obstructive and reflux uropathy; I25.10 Atherosclerotic heart disease of native coronary artery without angina pectoris; I10 Essential (primary) hypertension; G62.9 Polyneuropathy, unspecified; Z95.1 Presence of aortocoronary bypass graft; Z79.891 Long term (current) use of opiate analgesic; Z79.899 Other long term (current) drug therapy; Z79.52 Long term (current) use of systemic steroids; Z86.73 Personal history of transient ischemic attack (TIA), and cerebral infarction without residual deficits
CPT/HCPCS: 74018; 87081

== ENCOUNTER → 2019-01-04 | Outpatient (CLI) | payer MEDICARE ==
[~2019-01-04] MED LIST changes: +ONDA8TAB6 PO; +PHEN-640 PO; +SULF1TAB35 PO; +TAMS0.4C98 PO
--- NOTE | 2019-01-04 13:03 | Diagnostic Imaging Report ---
INDICATION: History of left ureteral calculus. COMPARISON: 12/22/2018. FINDINGS: Single supine radiographic view of the abdomen was obtained and demonstrates nondistended loops of small bowel. There is no large collection of free peritoneal air. Moderate air and stool are seen scattered throughout the colon. No unexpected extraosseous calcifications or radiopaque foreign bodies are seen. Bony structures show no gross acute abnormalities. IMPRESSION: 1. Nonobstructed small bowel gas pattern. 2. Moderate colonic air and stool. Please correlate for constipation 3. No unexpected extraosseous calcifications are seen on today's exam. Dictated by: Dictated on workstation # [id number]
== END ==
LOC: RAD 12:33
PROVIDERS: ATTEND Urology
DX: Z87.442 Personal history of urinary calculi (principal)
CPT/HCPCS: 74018

== ENCOUNTER → 2019-01-04 | Outpatient (CLI) | payer MEDICARE ==
--- NOTE | 2019-01-04 14:02 | Diagnostic Imaging Report ---
PROCEDURE: CT urinary tract, rule out kidney stone. TECHNIQUE: Multiple contiguous axial images were obtained through the abdomen and pelvis without the use of intravenous contrast. Auto Exposure Controls were utilized during the CT exam to meet ALARA standards for radiation dose reduction. INDICATION: Flank pain. COMPARISON: CT abdomen and pelvis with IV contrast 09/12/2017. FINDINGS: Stable pulmonary nodule in the right lower lobe laterally measuring up to 1.1 cm. Stable well-circumscribed fluid attenuation presumed cyst in the left hepatic lobe measuring up to 3.7 cm. The gallbladder, pancreas, spleen, adrenals, right kidney, collecting systems, bladder and appendix are negative. Stable benign macroscopic fat in the lower pole of the left kidney measuring up to 0.9 cm. Fat-containing left inguinal hernia is partially visualized. Moderate atherosclerotic calcifications including a normal caliber abdominal aorta. No free intraperitoneal air or fluid. No lymphadenopathy. No evidence of bowel obstruction. Moderate to advanced spondylotic changes in the lumbar spine. Sternotomy. No acute osseous findings. IMPRESSION: 1. No acute CT findings in the abdomen or pelvis on this noncontrast exam. 2. Fat-containing left inguinal hernia without inflammatory changes where seen. This is stable. 3. Additional chronic and incidental findings as above. Dictated by: Dictated on workstation # [id number]
== END ==
LOC: RAD 13:33
PROVIDERS: ATTEND Urology
DX: K40.90 Unilateral inguinal hernia, without obstruction or gangrene, not specified as recurrent (principal); R91.1 Solitary pulmonary nodule
CPT/HCPCS: 74176

== ENCOUNTER 2019-02-02 08:30 | Outpatient (RCR) | payer MEDICARE | END 2019-02-02 09:31 | disposition home or self-care (01) | PROVIDERS: ATTEND Orthopaedic Surgery | DX: M25.511 Pain in right shoulder (principal); Z98.890 Other specified postprocedural states ==

== ENCOUNTER 2019-03-15 05:39 | Outpatient (CLI) | payer MEDICARE ==
[~2019-03-15] VITALS: Ht 177.8 cm; Wt 91.4 kg
[~2019-03-15 05:39] MED LIST changes: -TAMS0.4C98 PO; +TMSL.4C PO
[2019-03-15] MEDS ORDERED: CLOP75TA28 PO (13:00)
[2019-03-15] MEDS ORDERED: ISOS30TA3 PO (13:00)
[2019-03-15] MEDS ORDERED: ZOLP5TAB PO (13:00)
[2019-03-15] MEDS ORDERED: MELO15TA39 PO (13:00)
== END 2019-03-15 13:04 | disposition home or self-care (01) ==
LOC: PREOP 05:39
PROVIDERS: ATTEND Internal Medicine
DX: Z01.818 Encounter for other preprocedural examination (principal)

== ENCOUNTER 2019-05-09 11:28 | Emergency (ER) | payer MEDICARE ==
[~2019-05-09] VITALS: Ht 177 cm; Wt 91.0 kg
[~2019-05-09 11:28] MED LIST changes: +ISOS30TA3 PO; +ZOLP5TAB PO
[2019-05-09] MEDS ORDERED: fentaNYL INJECTION 100 MCG/2 ML AMP IVP ONE ×2 (11:45→12:45)
--- NOTE | 2019-05-09 11:49 | ED Fall/Injury ---
General Stated Complaint: FALL/R SHOULDER AND L LOWER BACK PAIN Source: patient, other (gf) Exam Limitations: no limitations History of Present Illness Date Seen by Provider: May 09, 2019 Time Seen by Provider: 11:30 Initial Comments The patient presents to the ER by private conveyance with his significant other and chief complaint that sometime yesterday evening he was checking on cows when he tripped over something fell forward catching his right arm in a cattle panel and striking the right frontal forehead against the ground. He denies loss of consciousness but his girlfriend states he was a little bit confused for about a minute. He does take Plavix but no blood thinners. He has a history of CABG from 2003 and has had 2 different surgeries on his right shoulder in the past. He is a primary patient of Dr. Hollis. He has been using hydrocodone 5 mg every 3-4 hours with modest relief of pain. He rates his pain presently is a 10 out of 10 and says that it is worse in his low back. He's had surgery on his cervical spine. He's not having any numbness, tingling or incontinence, nausea. He has some bruising on his right shoulder as well as right upper extremity and bilateral ribs posteriorly. He is not having any shortness of breath. Allergies and Home Medications Allergies Coded Allergies: No Known Drug Allergies (Unverified , 12/22/18) Home Medications Atorvastatin Calcium 40 Mg Tablet, 40 MG PO DAILY, (Reported) Clopidogrel Bisulfate 75 Mg Tablet, 75 MG PO DAILY, (Reported) Ergocalciferol (Vitamin D2) 2,000 Unit Tablet, 2,000 UNIT PO DAILY, (Reported) Furosemide 40 Mg Tablet, 40 MG PO DAILY, (Reported) Gabapentin 300 Mg Capsule, 600 MG PO TID, (Reported) take 2 (300mg) tab Hydrocodone Bit/Acetaminophen 1 Each Tablet, 1 TAB PO Q12H PRN for PAIN, (Reported) Isosorbide Mononitrate 30 Mg Tab.er.24h, 30 MG PO DAILY, (Reported) Meloxicam 15 Mg Tablet, 15 MG PO DAILY, (Reported) Nortriptyline HCl 10 Mg Capsule, 10 MG PO HS, (Reported) Potassium Chloride 10 Meq Capsule.er, 10 MEQ PO DAILY, (Reported) Zolpidem Tartrate 5 Mg Tablet, 5 MG PO HS, (Reported) Patient Home Medication List Home Medication List Reviewed: Yes Review of Systems Review of Systems Constitutional: No chills, No diaphoresis Eyes: Denies Blindness, Denies Blurred Vision Ears, Nose, Mouth, Throat: denies ear pain, denies ear discharge Respiratory: No cough, No phlegm, No short of breath Cardiovascular: No chest pain Gastrointestinal: No abdominal pain, No constipation, No nausea, No vomiting Genitourinary: No discharge, No dysuria Musculoskeletal: see HPI, back pain, joint pain (right shoulder), muscle stiffness Psychiatric/Neurological: Denies Anxiety, Denies Depressed, Denies Numbness, Denies Paresthesia Past Hrxegpz-Giiajk-Liyqlk Hx Patient Social History Alcohol Use: Denies Use Recreational Drug Use: No Smoking Status: Former Smoker Type Used: Cigarettes Former Smoker, Quit: Sep 14, 2000 2nd Hand Smoke Exposure: Yes Recent Foreign Travel: No Contact w/Someone Who Travel: No Recent Hopitalizations: No Immunizations Up To Date Tetanus Booster (TDap): Unknown Date of Pneumonia Vaccine: Dec 15, 2014 Date of Influenza Vaccine: Nov 30, 2018 Seasonal Allergies Seasonal Allergies: No Past Medical History Surgeries: Yes (SHOULDER SURGERY x2, neck fusion, ) Cardiac, CABG, Orthopedic, Vascular Surgery Respiratory: No Currently Using CPAP: No Currently Using BIPAP: No Cardiac: Yes (CAROTID DISEASE, STENT) Coronary Artery Disease, High Cholesterol, Hypertension Neurological: Yes TIA Reproductive Disorders: No Sexually Transmitted Disease: Yes HIV/AIDS: No Genitourinary: Yes Kidney Stones 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 0.0oz. 91.480871ct; 28.91 BMI Method:Stated General Appearance: WD/WN, mild distress HEENT: PERRL/EOMI, TMs normal, pharynx normal, other (minor superficial abrasions right frontal forehead approximately 2.5 cm across) Neck: full range of motion, supple, normal inspection, tender lateral, tender midline Cardiovascular: normal peripheral pulses, regular rate, rhythm, no edema Respiratory: No chest non-tender; lungs clear, normal breath sounds, no respiratory distress, no accessory muscle use Peripheral Pulses: 2+ Radial Pulses (R), 2+ Radial Pulses (L) Gastrointestinal: non tender, soft Back: vertebral tenderness (her low thoracic and all of the lumbar spine midline tenderness to palpation without palpable step off or deformity. Left L5- S1 facet joint exquisitely tender to palpation.) Extremities: normal range of motion, non-tender, normal inspection Neurologic/Psychiatric: no motor/sensory deficits, alert, normal mood/affect, oriented x 3, other (motor upper extremity strength 5 out of 5 bilaterally) Skin: ecchymosis (large ecchymoses over the right upper extremity and shoulder as well as small ecchymoses bilateral ribs.) Progress/Results/Core Measures Results/Orders My Orders Orders - KAMI COYNE Fentanyl Injection (Sublimaze Injection (05/09/19 11:45) Ed Iv/Invasive Line Start (05/09/19 11:42) Ct Head/Cervical Spine Wo (05/09/19 11:42) Ct Thoracic/Lumbar Spine Wo (05/09/19 11:42) Ribs/ Bilateral (05/09/19 11:42) Shoulder, Right, 3 Views (05/09/19 11:42) Ua Culture If Indicated (05/09/19 11:42) Incentive Spirometry Initial (05/09/19 11:56) Fentanyl Injection (Sublimaze Injection (05/09/19 12:45) Medications Given in ED Current Medications Medications Dose Ordered Sig/Joanna Route Start Time Stop Time Status Last Admin Dose Admin Fentanyl Citrate 50 mcg ONCE ONCE IVP 05/09/19 11:45 05/09/19 11:46 DC 05/09/19 11:55 50 MCG Fentanyl Citrate 50 mcg ONCE ONCE IVP 05/09/19 12:45 05/09/19 12:47 DC 05/09/19 12:39 50 MCG Vital Signs/I&O 05/09/19 05/09/19 11:30 11:58 Temp 36.4 Pulse 88 Resp 18 B/P (MAP) 169/83 (111) Pulse Ox 94 O2 Delivery Room Air Room Air Progress Progress Note : Time: 11:53 Progress Note Plan to establish an IV and we'll start with just 50 g of fentanyl for pain control. Bilateral ribs x-ray as well as right shoulder and then a CT without IV contrast of the head, C-spine, thoracic and lumbar spine. If he produces a urine we will check for red blood cells. Plan to do some teaching and provide him with incentive spirometry. Diagnostic Imaging Diagonstic Imaging: Xray Plain Films/CT/US/NM/MRI: chest (bilateral ribs) Comments NAME: OLIVER WORRELL Move Loot REC#: [id number] PT STATUS: REG ER : 1945 PHYSICIAN: KAMI COYNE MD ADMIT DATE: 05/09/19/ER Draft Date of Exam:05/09/19 RIBS/ BILATERAL INDICATION: Fall. TIME OF EXAM: 12:30 PM FINDINGS: Multiple views of bilateral ribs were obtained. No displaced rib fracture is identified. No definite parenchymal contusion, effusion or pneumothorax is seen. IMPRESSION: No displaced rib fracture is detected. Dictated on workstation # [id number] Dict: 05/09/19 1238 Trans: 05/09/19 1246 [facility] [id number] Interpreted by: KEESHA LANDIS MD Electronically signed by: Reviewed: Reviewed by Me Diagonstic Imaging: Xray Plain Films/CT/US/NM/MRI: other (right shoulder) Comments NAME: OLIVER WORRELL Move Loot REC#: [id number] PT STATUS: REG ER : 1945 PHYSICIAN: KAMI COYNE MD ADMIT DATE: 05/09/19/ER Draft Date of Exam:05/09/19 SHOULDER, RIGHT, 3 VIEWS Indication: Recent fall with right shoulder pain. Comparison: 06/29/2018. Discussion: Three views of the right shoulder were obtained. Hill-Sachs deformity is again noted, likely chronic. No acute fracture or dislocation. Moderate degenerative disease within the right shoulder is stable. Alignment is anatomic. Soft tissues are unremarkable. Impression: 1. Stable chronic changes as discussed within the right shoulder. Dictated on workstation # [id number] Dict: 05/09/19 1237 Trans: 05/09/19 1244 [id number] Interpreted by: BASIM MORE MD Electronically signed by: Reviewed: Reviewed by Me Diagonstic Imaging: CT Plain Films/CT/US/NM/MRI: c-spine, head Comments NAME: OLIVER WORRELL [employer] REC#: [id number] PT STATUS: REG ER : 1945 PHYSICIAN: KAMI COYNE MD ADMIT DATE: 05/09/19/ER Draft Date of Exam:05/09/19 CT HEAD/CERVICAL SPINE WO PROCEDURE: CT head and CT cervical spine without contrast. TECHNIQUE: Multiple contiguous axial images were obtained through the brain and cervical spine without the use of intravenous contrast. Sagittal and coronal reformations through the cervical spine were then performed. Auto Exposure Controls were utilized during the CT exam to meet ALARA standards for radiation dose reduction. Indication: Fall with head and neck pain, altered mental status. Comparison: Head CT 08/08/2016. Discussion: Head: Chronic encephalomalacia within the left parietal lobe is stable. Mild diffuse brain volume loss is stable, likely age related. No acute intracranial hemorrhage, mass, midline shift, or hydrocephalus. The orbits, sinuses, mastoid air cells, and calvarium are unremarkable. CERVICAL SPINE: Advanced degenerative disease is noted diffusely throughout the cervical spine. Postoperative changes are noted posteriorly. No acute fracture or subluxation is identified. Alignment is anatomic. The soft tissues are unremarkable. Impression: 1. Senescent changes as described. No acute intracranial abnormality identified. 2. No acute abnormality identified within the cervical spine. Degenerative disease is noted diffusely. Dictated on workstation # [id number] Dict: 05/09/19 1230 Trans: 05/09/19 1239 [id number] Interpreted by: BASIM MORE MD Electronically signed by: Reviewed: Reviewed by Ia Diagonstic Imaging: CT Plain Films/CT/US/NM/MRI: other (thoracolumbar spine) Comments NAME: OLIVER WORRELL MED REC#: [id number] PT STATUS: REG ER : 1945 PHYSICIAN: KAMI COYNE MD ADMIT DATE: 05/09/19/ER Draft Date of Exam:05/09/19 CT THORACIC/LUMBAR SPINE WO PROCEDURE: CT thoracic and lumbar spine without contrast. TECHNIQUE: Multiple contiguous axial images were obtained through the thoracic and lumbar spine without the use of intravenous contrast. Sagittal and coronal reformations were then performed. All CT scans use one or more of the following dose optimizing techniques: automated exposure control, MA and/or KvP adjustment based on a patient size and exam type, or iterative reconstruction. INDICATION: Fall and back pain. FINDINGS: There appears to be normal thoracic kyphotic curvature and lumbar lordotic curvature. The vertebral body heights appear to be maintained. No acute thoracic or lumbar spinal fracture is seen. There is significant degenerative disc disease throughout the thoracic and lumbar spine with variable disc space narrowing and marginal osteophyte formation. The paraspinous tissues are unremarkable. IMPRESSION: Thoracolumbar spondylosis. No acute bony abnormality is identified. Dictated on workstation # [id number] Dict: 05/09/19 1232 Trans: 05/09/19 1242 [id number] Interpreted by: KEESHA LANDIS MD Electronically signed by: Reviewed: Reviewed by Me Departure Impression Primary Impression: Fall Qualified Codes: W19.XXXA - Unspecified fall, initial encounter Additional Impressions: Right shoulder pain Qualified Codes: M25.511 - Pain in right shoulder Lumbar back pain Neck pain Disposition: HOME, SELF-CARE Condition: Stable Departure-Patient Inst. Decision time for Depature: 12:50 Referrals: KYLIE HOLLIS MD (PCP/Family) Primary Care Physician Patient Instructions: Low Back Pain (DC), Shoulder Pain (DC) Add. Discharge Instructions: Ice pack applied to your right shoulder and low back for 20 minutes every 4 hours while awake for the first 1-2 days. Heating pads as often as necessary for pain control. Topical creams such as icy hot, Biofreeze, Aspercreme etc. as necessary. Hydrocodone one half to one tablet every 4 hours as needed for pain control. Follow-up with your primary care provider in one to 2 weeks for reexamination. Physical therapy may be beneficial. Use the incentive spirometer 10-20 breaths per hour while awake to prevent the formation of pneumonia. MiraLAX 1 capful in 6-8 ounces of fluids daily while on the hydrocodone. May use more frequently as necessary. Scripts Polyethylene Glycol 3350 (Miralax) 119 Gm Powder 17 GM PO DAILY PRN PRN for CONSTIPATION-1ST LINE, #1 EA 0 Refills Prov: KAMI COYNE 05/09/19 Hydrocodone Bit/Acetaminophen (HYDROcodone/APAP 7.5/325 TAB) 1 Ea Tablet 0.5-1 EA PO Q4H PRN for PAIN-BREAKTHROUGH, #20 TAB 0 Refills Prov: KAMI COYNE 05/09/19 KAMI COYNE May 09, 2019 11:49
--- NOTE | 2019-05-09 12:00 | NUR ---
RT HERE FOR IS EDUCATION
--- NOTE | 2019-05-09 12:00 | NUR ---
SEE LIST FOR CURRENT MEDS
--- NOTE | 2019-05-09 12:40 | Diagnostic Imaging Report ---
PROCEDURE: CT head and CT cervical spine without contrast. TECHNIQUE: Multiple contiguous axial images were obtained through the brain and cervical spine without the use of intravenous contrast. Sagittal and coronal reformations through the cervical spine were then performed. Auto Exposure Controls were utilized during the CT exam to meet ALARA standards for radiation dose reduction. Indication: Fall with head and neck pain, altered mental status. Comparison: Head CT 08/08/2016. Discussion: Head: Chronic encephalomalacia within the left parietal lobe is stable. Mild diffuse brain volume loss is stable, likely age related. No acute intracranial hemorrhage, mass, midline shift, or hydrocephalus. The orbits, sinuses, mastoid air cells, and calvarium are unremarkable. CERVICAL SPINE: Advanced degenerative disease is noted diffusely throughout the cervical spine. Postoperative changes are noted posteriorly. No acute fracture or subluxation is identified. Alignment is anatomic. The soft tissues are unremarkable. Impression: 1. Senescent changes as described. No acute intracranial abnormality identified. 2. No acute abnormality identified within the cervical spine. Degenerative disease is noted diffusely. Dictated by: Dictated on workstation # [id number]
--- NOTE | 2019-05-09 12:42 | Diagnostic Imaging Report ---
PROCEDURE: CT thoracic and lumbar spine without contrast. TECHNIQUE: Multiple contiguous axial images were obtained through the thoracic and lumbar spine without the use of intravenous contrast. Sagittal and coronal reformations were then performed. All CT scans use one or more of the following dose optimizing techniques: automated exposure control, MA and/or KvP adjustment based on a patient size and exam type, or iterative reconstruction. INDICATION: Fall and back pain. FINDINGS: There appears to be normal thoracic kyphotic curvature and lumbar lordotic curvature. The vertebral body heights appear to be maintained. No acute thoracic or lumbar spinal fracture is seen. There is significant degenerative disc disease throughout the thoracic and lumbar spine with variable disc space narrowing and marginal osteophyte formation. The paraspinous tissues are unremarkable. IMPRESSION: Thoracolumbar spondylosis. No acute bony abnormality is identified. Dictated by: Dictated on workstation # [id number]
--- NOTE | 2019-05-09 12:44 | Diagnostic Imaging Report ---
Indication: Recent fall with right shoulder pain. Comparison: 06/29/2018. Discussion: Three views of the right shoulder were obtained. Hill-Sachs deformity is again noted, likely chronic. No acute fracture or dislocation. Moderate degenerative disease within the right shoulder is stable. Alignment is anatomic. Soft tissues are unremarkable. Impression: 1. Stable chronic changes as discussed within the right shoulder. Dictated by: Dictated on workstation # [id number]
--- NOTE | 2019-05-09 12:46 | Diagnostic Imaging Report ---
INDICATION: Fall. TIME OF EXAM: 12:30 PM FINDINGS: Multiple views of bilateral ribs were obtained. No displaced rib fracture is identified. No definite parenchymal contusion, effusion or pneumothorax is seen. IMPRESSION: No displaced rib fracture is detected. Dictated by: Dictated on workstation # [id number]
[2019-05-09] MEDS ORDERED: POLY119P5 PO (13:13)
[2019-05-09] MEDS ORDERED: HYDR-34 PO (13:13)
[2019-05-09 13:35] VITALS: BP 142/80
--- OUTSIDE RECORDS SUMMARY | 2019-05-10 01:12 | XMS REPORT | Continuity of Care Document ---
Author Organization Unknown Address Unknown Phone Unavailable Allergies Active Description Code Type Severity Reaction Onset Reported/Identified Relationship to Patient Clinical Status Yes No Known Drug Allergies [id number] Drug Allergy Unknown N/A 12/22/2018 Medications There is no data. Problems Date Dx Coded Attending Type Code Diagnosis Diagnosed By SONIA CHONG MD Ot M25.512 PAIN IN LEFT SHOULDER SONIA CHONG MD Ot S46.011 D STRAIN OF MUSC/TEND THE ROTATOR CUFF OF SONIA CHONG MD Ot M25.511 PAIN IN RIGHT SHOULDER SONIA CHONG MD Ot Z98.890 OTHER SPECIFIED POSTPROCEDURAL STATES 01/24/1304 MELISSA STEVENSON MD Ot M62.81 01/24/1304 MELISSA STEVENSON MD Ot R26.0 01/23/1599 ESTEBAN HOYOS, ANNA Ot M75. 41 IMPINGEMENT SYNDROME OF RIGHT SHOULDER 01/19/2014 CHRISTIAN [...] AORTOCORONARY BYPASS 04/08/2014 SOLO MENDEZ Ot V58.69 OT MED,,CURRENT USE 04/11/2014 Ot 562.10 04/11/2014 Ot 593.9 04/11/2014 Ot 733.90 04/11/2014 Ot 722.52 04/11/2014 Ot 794.8 04/11/2014 Ot 573.8 04/11/2014 Ot 600.00 04/11/2014 Ot 733.90 04/11/2014 ADELIA DANGJENISE Grullon WIRING MECHANIC Ot 550.90 04/11/2014 ADELIA DANGJENISE [place]ullon WIRING MECHANIC Ot 562.10 04/11/2014 CARMEN DELVALLE WIRING MECHANIC Ot 59 1 04/11/2014 CARMEN DELVALLE APRN Ot 592.1 04/11/2014 CHRISTIAN HOYOS, CASSANDRA Painting Ot 715.35 04/11/2014 CHRISTIAN HOYOS, CASSANDRA Painting Ot 724.2 04/11/2014 CASSANDRA GONZALES MD Ot 724.6 11/30/2014 Ot 562.10 11/30/2014 Ot 593.9 11/30/2014 Ot 733.90 11/30/2014 Ot 722.52 11/30/2014 Ot 794.8 11/30/2014 Ot 573.8 11/30/2014 Ot 600.00 11/30/2014 Ot 733.90 11/30/2014 CARMEN DEVLALLE WIRING MECHANIC Ot 550.90 11/30/2014 CARMEN DELVALLE WIRING MECHANIC Ot 562.10 11/30/2014 CARMEN DELVALLE WIRING MECHANIC Ot 59 1 11/30/2014 CARMEN DELVALLE WIRING MECHANIC Ot 592.1 11/30/2014 CHRISTIAN HOYOS, CASSANDRA Painting Ot 715.35 11/30/2014 CHRISTAIN HOYOS, CASSANDRA Painting Ot 724.2 11/30/2014 CASSANDRA GONZALES MD Ot 724.6 12/22/2014 MELISSA STEVENSON MD Ot I25.10 01/16/2015 MELISSA STEVENSON MD Ot M62.81 01/16/2015 MELISSA STEVENSON MD Ot R26.0 01/16/2015 MELISSA STEVENSON MD Ot M62.81 01/16/2015 GRAHAM HOYOS, MELISSA D Ot R26.0 02/09/2015 MELISSA STEVENSON MD D Ot M62.81 02/09/2015 GRAHAM HOYOS, MELISSA D Ot R26.0 02/28/2015 GRAHAM HOYOS, MELISSA D Ot M62.81 MUSCLE WEAKNESS (GENERALIZED) 02/28/2015 MELISSA STEVENSON MD D Ot R26.0 ATAXIC GAIT 03/02/2015 MELISSA STEVENSON MD D Ot M62.81 03/02/2015 MELISSA STEVENSON MD D Ot R26.0 03/03/2015 MELISSA STEVENSON MD D Ot M62.81 03/03/2015 MELISSA STEVENSON MD D Ot R26.0 04/13/2015 MELISSA STEVENSON MD D Ot M62.81 MUSCLE WEAKNESS (GENERALIZED) 04/13/2015 MELISSA STEVENSON MD D Ot R26.0 ATAXIC GAIT 07/17/2015 SELENE BROCK MD Ot G54.1 LUMBOSACRAL PLEXUS DISORDERS 07/17/2015 SELENE BROCK MD Ot G54.1 LUMBOSACRAL PLEXUS DISORDERS 07/31/2015 KODI ESQUEDA APRN Ot I20 .9 ANGINA PECTORIS, UNSPECIFIED 07/31/2015 KODI ESQUEDA WIRING MECHANIC Ot R42 DIZZINESS AND GIDDINESS 07/31/2015 KODI ESQUEDA WIRING MECHANIC Ot Z79.02 ASSISTANT PRODUCT MANAGER (CURRENT) USE OF ANTITHROMBOTI 07/31/2015 KODI ESQUEDA WIRING MECHANIC Ot Z87.891 PERSONAL HISTORY OF NICOTINE DEPENDENCE 08/02/2015 KODI ESQUEDA WIRING MECHANIC Ot I20 .9 ANGINA PECTORIS, UNSPECIFIED 08/02/2015 KODI ESQUDEA WIRING MECHANIC Ot R42 DIZZINESS AND GIDDINESS 08/02/2015 KODI ESQUEDA WIRING MECHANIC Ot Z79.02 ALF (CURRENT) USE OF ANTITHROMBOTI 08/02/2015 KODI ESQUEDA WIRING MECHANIC Ot Z87.891 PERSONAL HISTORY OF NICOTINE DEPENDENCE 08/16/2015 SELENE BROCK MD Ot G54.1 LUMBOSACRAL PLEXUS DISORDERS 08/16/2015 SELENE BROCK MD Ot G54.1 LUMBOSACRAL PLEXUS DISORDERS 09/04/2015 MIRLANDE HOYOS, KULWANT E Ot M54.2 CERVICALGIA 09/11/2015 KATHRINE HOYOS, KESHAV Painting Ot Z01.818 ENCOUNTER FOR OTHER PREPROCEDURAL EXAMIN 09/11/2015 KESHAV CHISHOLM MD Ot Z12. 11 ENCOUNTER FOR SCREENING FOR MALIGNANT NE 09/12/2015 KESHAV CHISHOLM MD Ot Z01.818 ENCOUNTER FOR OTHER PREPROCEDURAL EXAMIN 09/12/2015 KESHAV CHISHOLM MD Ot Z12. 11 ENCOUNTER FOR SCREENING FOR MALIGNANT NE 09/19/2015 KESHAV CHISHOLM MD Ot D12. 8 BENIGN NEOPLASM OF RECTUM 09/19/2015 KESHAV CHISHOLM MD Ot K57. 30 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 AB 09/19/2015 KESHAV CHISHOLM MD Ot K63. 5 POLYP OF COLON 09/19/2015 KESHAV CHISHOLM MD Ot Z12. 11 ENCOUNTER FOR SCREENING FOR MALIGNANT NE 09/26/2015 KESHAV CHISHOLM MD Ot D12. 8 BENIGN NEOPLASM OF RECTUM 09/26/2015 KESHAV CHISHOLM MD Ot K57. 30 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 AB 09/26/2015 KESHAV CHISHOLM MD Ot K63. 5 POLYP OF COLON 09/26/2015 KESHAV CHISHOLM MD Ot Z12. 11 ENCOUNTER FOR SCREENING FOR MALIGNANT NE 11/15/2015 KESHAV CHISHOLM MD Ot D12. 8 BENIGN NEOPLASM OF RECTUM 11/15/2015 KESHAV CHISHOLM MD Ot K57. 30 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 AB 11/15/2015 KESHAV CHISHOLM MD Ot K63. 5 POLYP OF COLON 11/15/2015 KESHAV CHISHOLM MD Ot Z12. 11 ENCOUNTER FOR SCREENING FOR MALIGNANT NE 11/22/2015 KESHAV CHISHOLM MD Ot D12. 8 BENIGN NEOPLASM OF RECTUM 11/22/2015 KESHAV CHISHOLM MD Ot K57. 30 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 AB 11/22/2015 KESHAV CHISHOLM MD Ot K63. 5 POLYP OF COLON 11/22/2015 KESHAV CHISHOLM MD Ot Z12. 11 ENCOUNTER FOR SCREENING FOR MALIGNANT NE 02/12/2016 Ot 562.10 DIV ERTICULOSIS COLON (W/O MENT OF HEMORR 02/12/2016 Ot 593.9 ARTURO L URETERAL DIS NOS 02/12/2016 Ot 733.90 BON E CARTILAGE DIS NOS 02/12/2016 Ot 722.52 LUM B/LUMBOSAC DISC DEGEN 02/12/2016 Ot 794.8 ABN LIVER FUNCTION STUDY 02/12/2016 Ot 573.8 LIVE R DISORDERS NEC 02/12/2016 Ot 600.00 HYP ERTROPHY (BENIGN) OF PROSTATE W/O URI 02/12/2016 Ot 733.90 BON E CARTILAGE DIS NOS 02/12/2016 CARMEN DELVALLE N WIRING MECHANIC Ot 550.90 UNILAT INGUINAL HERNIA 02/12/2016 CARMEN DELVALLE N WIRING MECHANIC Ot 562.10 DIVERTICULOSIS COLON (W/O MENT OF HEMORR 02/12/2016 CARMEN DELVALLE N WIRING MECHANIC Ot 59 1 HYDRONEPHROSIS 02/12/2016 CARMEN DELVALLE N WIRING MECHANIC Ot 592.1 CALCULUS OF URETER 02/12/2016 CHRISTIAN HOYOS, CASSANDRA Painting Ot 715.35 LOC OSTEOARTH NOS-PELVIS 02/12/2016 CHRISTIAN HOYOS, CASSANDRA Painting Ot 724.2 LUMBAGO 02/12/2016 CHRISTIAN HOOYS, CASSANDRA Painting Ot 724.6 DISORDERS OF SACRUM 02/12/2016 GRAHAM HOYOS, MELISSA Painting Ot I25.10 ATHSCL HEART DISEASE OF [place] CORONARY 02/12/2016 DELMY HOYOS, SELENE Rascon Ot G54.1 LUMBOSACRAL PLEXUS DISORDERS 02/12/2016 KESHAV CHISHOML MD Ot D12. 8 BENIGN NEOPLASM OF RECTUM 02/12/2016 KESHAV CHISHOLM MD Ot K57. 30 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 AB 02/12/2016 KESHAV CHISHOLM MD Ot K63. 5 POLYP OF COLON 02/12/2016 KESHAV CHISHOLM MD Ot Z12. 11 ENCOUNTER FOR SCREENING FOR MALIGNANT NE 03/08/2016 MARIO ROSADO MD Ot E04.1 NONTOXIC SINGLE THYROID NODULE 03/18/2016 MARIO ROSADO MD Ot E04.1 NONTOXIC SINGLE THYROID NODULE 08/14/2016 KESHAV CHISHOLM MD Ot D12. 8 BENIGN NEOPLASM OF RECTUM 08/14/2016 KESHAV CHISHOLM MD Ot Z01.818 ENCOUNTER FOR OTHER PREPROCEDURAL EXAMIN 08/16/2016 KESHAV CHISHOLM MD Ot D12. 8 BENIGN NEOPLASM OF RECTUM 08/16/2016 KESHAV CHISHOLM MD Ot E78. 5 HYPERLIPIDEMIA, UNSPECIFIED 08/16/2016 KESHAV CHISHOLM MD Ot I10 ESSENTIAL (PRIMARY) HYPERTENSION 08/16/2016 KESHAV CHISHOLM MD Ot I25. 10 ATHSCL HEART DISEASE OF [place] CORONARY 08/16/2016 KESHAV CHISHOLM MD Ot K57. 30 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 AB 08/16/2016 KESHAV CHISHOLM MD Ot K63. 5 POLYP OF COLON 08/16/2016 KESHAV CHISHOML MD Ot Z79. 02 ASSISTANT PRODUCT MANAGER (CURRENT) USE OF ANTITHROMBOTI 08/16/2016 KESHAV CHISHOLM MD Ot Z95. 1 PRESENCE OF AORTOCORONARY BYPASS GRAFT 08/22/2016 SOLO MENDEZ Ot H53.8 OTHER VISUAL DISTURBANCES 08/22/2016 SOLO MENDEZ Ot R 42 DIZZINESS AND GIDDINESS 08/23/2016 KESHAV CHISHOLM MD Ot D12. 8 BENIGN NEOPLASM OF RECTUM 08/23/2016 KESHAV CHISHOLM MD Ot E78. 5 HYPERLIPIDEMIA, UNSPECIFIED 08/23/2016 KESHAV CHISHOLM MD Ot I10 ESSENTIAL (PRIMARY) HYPERTENSION 08/23/2016 KESHAV CHISHOLM MD Ot I25. 10 ATHSCL HEART DISEASE OF [place] CORONARY 08/23/2016 KESHAV CHISHOLM MD Ot K57. 30 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 AB 08/23/2016 KESHAV CHISHOLM MD Ot K63. 5 POLYP OF COLON 08/23/2016 KESHAV CHISHOLM MD Ot Z79. 02 ASSISTANT PRODUCT MANAGER (CURRENT) USE OF ANTITHROMBOTI 08/23/2016 KESHAV CHISHOLM MD Ot Z95. 1 PRESENCE OF AORTOCORONARY BYPASS GRAFT 08/24/2016 KESHAV CHISHOLM MD Ot D12. 8 BENIGN NEOPLASM OF RECTUM 08/24/2016 KESHAV CHISHOLM MD Ot E78. 5 HYPERLIPIDEMIA, UNSPECIFIED 08/24/2016 KESHAV CHISHOLM MD Ot I10 ESSENTIAL (PRIMARY) HYPERTENSION 08/24/2016 KESHAV CHISHOLM MD Ot I25. 10 ATHSCL HEART DISEASE OF [place] CORONARY 08/24/2016 KESHAV CHISHOLM MD Ot K57. 30 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 AB 08/24/2016 KESHAV CHISHOLM MD Ot K63. 5 POLYP OF COLON 08/24/2016 KESHAV CHISHOLM MD Ot Z79. 02 ALF (CURRENT) USE OF ANTITHROMBOTI 08/24/2016 KESHAV CHISHOLM MD Ot Z95. 1 PRESENCE OF AORTOCORONARY BYPASS GRAFT 08/29/2016 JACQUELINE MENDEZEN L Ot R 42 DIZZINESS AND GIDDINESS 08/29/2016 JACQUELINE MENDEZEN L Ot R 51 HEADACHE 08/29/2016 JACQUELINE MENDEZEN L Ot R53.83 OTHER FATIGUE 08/29/2016 JACQUELINE MENDEZEN L Ot R93.0 ABNORMAL FINDINGS ON DX IMAGING OF SKULL 09/06/2016 JACQUELINE MENDEZEN L Ot R 42 DIZZINESS AND GIDDINESS 09/06/2016 JACQUELINE MENDEZEN L Ot R 51 HEADACHE 09/06/2016 JACQUELINE MENDEZEN L Ot R53.83 OTHER FATIGUE 09/06/2016 JACQUELINE MENDEZEN L Ot R93.0 ABNORMAL FINDINGS ON DX IMAGING OF SKULL 09/12/2016 JACQUELINE MENDEZEN L Ot H53.8 OTHER VISUAL DISTURBANCES 09/12/2016 JACQUELINE MENDEZEN L Ot R 42 DIZZINESS AND GIDDINESS 09/20/2016 SOLO MENDEZ L Ot H53.8 OTHER VISUAL DISTURBANCES 09/20/2016 JACQUELINE MENDEZEN L Ot R 42 DIZZINESS AND GIDDINESS 11/07/2016 KULWANT NOGUEIRA MD Ot M54.2 CERVICALGIA 11/23/2016 KULWANT NOGUEIRA MD Ot M54.2 CERVICALGIA 11/26/2016 KULWANT NOGUEIRA MD Ot M54.2 CERVICALGIA 11/27/2016 KULWANT NOGUEIRA MD Ot M54.2 CERVICALGIA 12/06/2016 KULWANT NOGUEIRA MD Ot M54.2 CERVICALGIA 01/17/2017 KULWANT NOGUEIRA MD Ot M54.2 CERVICALGIA 01/23/2017 KULWANT NOGUEIRA MD Ot M54.2 CERVICALGIA 02/04/2017 KULWANT NOGUEIRA MD Ot M54.2 CERVICALGIA 02/24/2017 KULWANT NOGUEIRA MD Ot M54.2 CERVICALGIA 03/24/2017 ESTEBAN HOYOS, ANNA H Ot M75. 41 IMPINGEMENT SYNDROME OF RIGHT SHOULDER 03/27/2017 ESTEBAN HOYOS, ANNA H Ot M75. 41 IMPINGEMENT SYNDROME OF RIGHT SHOULDER 05/07/2017 ESTEBAN HOYOS, ANNA H Ot M75. 41 IMPINGEMENT SYNDROME OF RIGHT SHOULDER 05/08/2017 ESTEBAN HOYOS, ANNA H Ot M75. 41 IMPINGEMENT SYNDROME OF RIGHT SHOULDER 05/08/2017 ESTEBAN HOYOS, ANNA H Ot M75. 41 IMPINGEMENT SYNDROME OF RIGHT SHOULDER 05/09/2017 ESTEBAN HOYOS, ANNA H Ot M75. 41 IMPINGEMENT SYNDROME OF RIGHT SHOULDER 05/13/2017 ESTEBAN HOYOS, ANNA Arroyo Ot M75. 41 IMPINGEMENT SYNDROME OF RIGHT SHOULDER 05/16/2017 KATHRINE HOYOS, KESHAV Painting Ot K62. 1 RECTAL POLYP 05/16/2017 KATHRINE HOYOS, KESHAV Painting Ot Z01.818 ENCOUNTER FOR OTHER PREPROCEDURAL EXAMIN 05/16/2017 KESHAV CHISHOLM MD Ot K62. 1 RECTAL POLYP 05/16/2017 KESHAV CHISHOLM MD Ot Z01.818 ENCOUNTER FOR OTHER PREPROCEDURAL EXAMIN 05/16/2017 TELMA HOYOS, KYLIE Rascon Ot G47.33 OBSTRUCTIVE SLEEP APNEA (ADULT) (PEDIATR 05/16/2017 Ot 562.10 DIV ERTICULOSIS COLON (W/O MENT OF HEMORR 05/16/2017 Ot 593.9 ARTURO L URETERAL DIS NOS 05/16/2017 Ot 733.90 BON E CARTILAGE DIS NOS 05/16/2017 Ot 722.52 LUM B/LUMBOSAC DISC DEGEN 05/16/2017 Ot 794.8 ABN LIVER FUNCTION STUDY 05/16/2017 Ot 573.8 LIVE R DISORDERS NEC 05/16/2017 Ot 600.00 HYP ERTROPHY (BENIGN) OF PROSTATE W/O URI 05/16/2017 Ot 733.90 BON E CARTILAGE DIS NOS 05/16/2017 CARMEN DELVALLE N WIRING MECHANIC Ot 550.90 UNILAT INGUINAL HERNIA 05/16/2017 CARMEN DELVALLE WIRING MECHANIC Ot 562.10 DIVERTICULOSIS COLON (W/O MENT OF HEMORR 05/16/2017 CARMEN DELVALLE WIRING MECHANIC Ot 59 1 HYDRONEPHROSIS 05/16/2017 CARMEN DELVALLE WIRING MECHANIC Ot 592.1 CALCULUS OF URETER 05/16/2017 CHRISTIAN HOYOS, CASSANDRA Painting Ot 715.35 LOC OSTEOARTH NOS-PELVIS 05/16/2017 CASSANDRA GONZALES MD Ot 724.2 LUMBAGO 05/16/2017 CASSANDRA GONZALES MD Ot 724.6 DISORDERS OF SACRUM 05/16/2017 GRAHAM HOYOS, MELISSA Painting Ot I25.10 ATHSCL HEART DISEASE OF [place] CORONARY 05/16/2017 DELMY HOYOS, SELENE Rascon Ot G54.1 LUMBOSACRAL PLEXUS DISORDERS 05/16/2017 KESHAV CHISHOLM MD Ot D12. 8 BENIGN NEOPLASM OF RECTUM 05/16/2017 KESHAV CHISHOLM MD Ot K57. 30 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 AB 05/16/2017 KESHAV CHISHOLM MD Ot K63. 5 POLYP OF COLON 05/16/2017 KESHAV CHISHOLM MD Ot Z12. 11 ENCOUNTER FOR SCREENING FOR MALIGNANT NE 05/16/2017 ALONZO HOYOS, MARIO Painting Ot E04.1 NONTOXIC SINGLE THYROID NODULE 05/16/2017 SOLO MENDEZ Ot R 42 DIZZINESS AND GIDDINESS 05/16/2017 SOLO MENDEZ Ot R 51 HEADACHE 05/16/2017 SOLO MENDEZ Ot R53.83 OTHER FATIGUE 05/16/2017 SOLO MENDEZ Ot R93.0 ABNORMAL FINDINGS ON DX IMAGING OF SKULL 05/16/2017 SOLO MENDEZ Ot H53.8 OTHER VISUAL DISTURBANCES 05/16/2017 SOLO MENDEZ Ot R 42 DIZZINESS AND GIDDINESS 05/16/2017 TELMA HOYOS, KYLIE Rascon Ot G47.33 OBSTRUCTIVE SLEEP APNEA (ADULT) (PEDIATR 05/16/2017 KESHAV CHISHOLM MD Ot K62. 1 RECTAL POLYP 05/16/2017 KESHAV CHISHOLM MD Ot Z01.818 ENCOUNTER FOR OTHER PREPROCEDURAL EXAMIN 05/16/2017 ESTEBAN HOYOS, ANNA H Ot M75. 41 IMPINGEMENT SYNDROME OF RIGHT SHOULDER 05/19/2017 KESHAV CHISHOLM MD Ot K62. 1 RECTAL POLYP 05/19/2017 KESHAV CHISHOLM MD Ot Z01.818 ENCOUNTER FOR OTHER PREPROCEDURAL EXAMIN 05/19/2017 KESHAV CHISHOLM MD Ot K62. 1 RECTAL POLYP 05/19/2017 KATHRINE HOYOS, KESHAV Painting Ot Z01.818 ENCOUNTER FOR OTHER PREPROCEDURAL EXAMIN 05/22/2017 TELMA HOYOS, KYLIE Rascon Ot G47.10 HYPERSOMNIA, UNSPECIFIED 05/22/2017 TELMA HOYOS, KYLIE Rascon Ot G47.36 SLEEP RELATED HYPOVENTILATION IN CONDITI 05/23/2017 KESHAV CHISHOLM MD Ot D12. 8 BENIGN NEOPLASM OF RECTUM 05/23/2017 KESHAV CHISHOLM MD Ot E78. 5 HYPERLIPIDEMIA, UNSPECIFIED 05/23/2017 KESHAV CHISHOLM MD Ot I10 ESSENTIAL (PRIMARY) HYPERTENSION 05/23/2017 KESHAV CHISHOLM MD Ot I25. 10 ATHSCL HEART DISEASE OF [place] CORONARY 05/23/2017 KESHAV CHISHOLM MD Ot Z09 ENCNTR FOR F/U EXAM AFT TRTMT FOR COND O 05/23/2017 KESHAV CHISHOLM MD Ot Z79. 02 ALF (CURRENT) USE OF ANTITHROMBOTI 05/23/2017 KESHAV CHISHOLM MD Ot Z79. 82 ASSISTANT PRODUCT MANAGER (CURRENT) USE OF ASPIRIN 05/23/2017 KESHAV CHISHOLM MD Ot Z86.010 PERSONAL HISTORY OF COLONIC POLYPS 05/23/2017 KESHAV CHISHOLM MD Ot Z95. 1 PRESENCE OF AORTOCORONARY BYPASS GRAFT 05/23/2017 KESHAV CHISHOLM MD Ot Z98. 1 ARTHRODESIS STATUS 05/27/2017 KESHAV CHISHOLM MD Ot D12. 8 BENIGN NEOPLASM OF RECTUM 05/27/2017 KESHAV CHISHOLM MD Ot E78. 5 HYPERLIPIDEMIA, UNSPECIFIED 05/27/2017 KESHAV CHISHOLM MD Ot I10 ESSENTIAL (PRIMARY) HYPERTENSION 05/27/2017 KESHAV CHISHOLM MD Ot I25. 10 ATHSCL HEART DISEASE OF [place] CORONARY 05/27/2017 KESHAV CHISHOLM MD Ot Z09 ENCNTR FOR F/U EXAM AFT TRTMT FOR COND O 05/27/2017 KESHAV CHISHOLM MD Ot Z79. 02 ASSISTANT PRODUCT MANAGER (CURRENT) USE OF ANTITHROMBOTI 05/27/2017 KESHAV CHISHOLM MD Ot Z79. 82 ALF (CURRENT) USE OF ASPIRIN 05/27/2017 KESHAV CHISHOLM MD Ot Z86.010 PERSONAL HISTORY OF COLONIC POLYPS 05/27/2017 KESHAV CHISHOLM MD Ot Z95. 1 PRESENCE OF AORTOCORONARY BYPASS GRAFT 05/27/2017 KESHAV CHISHOLM MD Ot Z98. 1 ARTHRODESIS STATUS 05/31/2017 KESHAV CHISHOLM MD Ot D12. 8 BENIGN NEOPLASM OF RECTUM 05/31/2017 KESHAV CHISHOLM MD Ot E78. 5 HYPERLIPIDEMIA, UNSPECIFIED 05/31/2017 KESHAV CHISHOLM MD Ot I10 ESSENTIAL (PRIMARY) HYPERTENSION 05/31/2017 KESHAV CHISHOLM MD Ot I25. 10 ATHSCL HEART DISEASE OF [place] CORONARY 05/31/2017 KESHAV CHISHOLM MD Ot Z09 ENCNTR FOR F/U EXAM AFT TRTMT FOR COND O 05/31/2017 KESHAV CHISHOLM MD Ot Z79. 02 ALF (CURRENT) USE OF ANTITHROMBOTI 05/31/2017 KESHAV CHISHOLM MD Ot Z79. 82 ALF (CURRENT) USE OF ASPIRIN 05/31/2017 KESHAV CHISHOLM MD Ot Z86.010 PERSONAL HISTORY OF COLONIC POLYPS 05/31/2017 KESHAV CHISHOLM MD Ot Z95. 1 PRESENCE OF AORTOCORONARY BYPASS GRAFT 05/31/2017 KESHAV CHISHOLM MD Ot Z98. 1 ARTHRODESIS STATUS 06/03/2017 KESHAV CHISHOLM MD Ot D12. 8 BENIGN NEOPLASM OF RECTUM 06/03/2017 KESHAV CHISHOLM MD Ot E78. 5 HYPERLIPIDEMIA, UNSPECIFIED 06/03/2017 KESHAV CHISHOLM MD Ot I10 ESSENTIAL (PRIMARY) HYPERTENSION 06/03/2017 KESHAV CHISHOLM MD Ot I25. 10 ATHSCL HEART DISEASE OF [place] CORONARY 06/03/2017 KESHAV CHISHOLM MD Ot Z09 ENCNTR FOR F/U EXAM AFT TRTMT FOR COND O 06/03/2017 KESHAV CHISHOLM MD Ot Z79. 02 ALF (CURRENT) USE OF ANTITHROMBOTI 06/03/2017 KESHAV CHISHOLM MD Ot Z79. 82 ASSISTANT PRODUCT MANAGER (CURRENT) USE OF ASPIRIN 06/03/2017 KESHAV CHISHOLM MD Ot Z86.010 PERSONAL HISTORY OF COLONIC POLYPS 06/03/2017 KESHAV CHISHOLM MD Ot Z95. 1 PRESENCE OF AORTOCORONARY BYPASS GRAFT 06/03/2017 KESHAV CHISHOLM MD Ot Z98. 1 ARTHRODESIS STATUS 06/09/2017 KESHAV CHISHOLM MD Ot D12. 8 BENIGN NEOPLASM OF RECTUM 06/09/2017 KESHAV CHISHOLM MD Ot E78. 5 HYPERLIPIDEMIA, UNSPECIFIED 06/09/2017 KESHAV CHISHOLM MD Ot I10 ESSENTIAL (PRIMARY) HYPERTENSION 06/09/2017 KESHAV CHISHOLM MD Ot I25. 10 ATHSCL HEART DISEASE OF [place] CORONARY 06/09/2017 KESHAV CHISHOLM MD Ot Z09 ENCNTR FOR F/U EXAM AFT TRTMT FOR COND O 06/09/2017 KESHAV CHISHOLM MD Ot Z79. 02 ASSISTANT PRODUCT MANAGER (CURRENT) USE OF ANTITHROMBOTI 06/09/2017 KESHAV CHISHOLM MD Ot Z79. 82 ASSISTANT PRODUCT MANAGER (CURRENT) USE OF ASPIRIN 06/09/2017 KESHAV CHISHOLM MD Ot Z86.010 PERSONAL HISTORY OF COLONIC POLYPS 06/09/2017 KESHAV CHISHOLM MD Ot Z95. 1 PRESENCE OF AORTOCORONARY BYPASS GRAFT 06/09/2017 KESHAV CHISHOLM MD Ot Z98. 1 ARTHRODESIS STATUS 06/11/2017 KESHAV CHISHOLM MD Ot D12. 8 BENIGN NEOPLASM OF RECTUM 06/11/2017 KESHAV CHISHOLM MD Ot E78. 5 HYPERLIPIDEMIA, UNSPECIFIED 06/11/2017 KESHAV CHISHOLM MD Ot I10 ESSENTIAL (PRIMARY) HYPERTENSION 06/11/2017 KESHAV CHISHOLM MD Ot I25. 10 ATHSCL HEART DISEASE OF [place] CORONARY 06/11/2017 KESHAV CHISHOLM MD Ot Z09 ENCNTR FOR F/U EXAM AFT TRTMT FOR COND O 06/11/2017 KESHAV CHISHOLM MD Ot Z79. 02 ASSISTANT PRODUCT MANAGER (CURRENT) USE OF ANTITHROMBOTI 06/11/2017 KESHAV CHISHOLM MD Ot Z79. 82 ALF (CURRENT) USE OF ASPIRIN 06/11/2017 KESHAV CHISHOLM MD Ot Z86.010 PERSONAL HISTORY OF COLONIC POLYPS 06/11/2017 KESHAV CHISHOLM MD Ot Z95. 1 PRESENCE OF AORTOCORONARY BYPASS GRAFT 06/11/2017 KESHAV CHISHOLM MD Ot Z98. 1 ARTHRODESIS STATUS 06/16/2017 ESTEBAN HOYOS, ANNA Arroyo Ot M75. 41 IMPINGEMENT SYNDROME OF RIGHT SHOULDER 07/23/2017 TELMA HOYOS, KYLIE Rascon Ot M19.012 PRIMARY OSTEOARTHRITIS, LEFT SHOULDER 07/23/2017 TELMAKYLIE BO MD Ot M25.522 PAIN IN LEFT ELBOW 07/23/2017 KYLIE HOLLIS MD Ot W19.XXXA UNSPECIFIED FALL, INITIAL ENCOUNTER 07/29/2017 KYLIE HOLLIS MD Ot J44.9 CHRONIC OBSTRUCTIVE PULMONARY DISEASE, U 07/29/2017 KYLIE HOLLIS MD Ot R09.02 HYPOXEMIA 08/07/2017 KYLIE HOLLIS MD Ot J44.9 CHRONIC OBSTRUCTIVE PULMONARY DISEASE, U 08/07/2017 KYLIE HOLLIS MD Ot R09.02 HYPOXEMIA 08/12/2017 KYLIE HOLLIS MD Ot M19.012 PRIMARY OSTEOARTHRITIS, LEFT SHOULDER 08/12/2017 KYLIE HOLLIS MD Ot M25.522 PAIN IN LEFT ELBOW 08/12/2017 KYLIE HOLLIS MD Ot W19.XXXA UNSPECIFIED FALL, INITIAL ENCOUNTER 08/20/2017 SONIA CHONG MD Ot M25.51 2 PAIN IN LEFT SHOULDER 08/20/2017 SONIA CHONG MD Ot S46.01 1D STRAIN OF MUSC/TEND THE ROTATOR CUFF OF 08/20/2017 KYLIE HOLLIS MD Ot M19.012 PRIMARY OSTEOARTHRITIS, LEFT SHOULDER 08/20/2017 KYLIE HOLLIS MD Ot M25.522 PAIN IN LEFT ELBOW 08/20/2017 KYLIE HOLLIS MD Ot W19.XXXA UNSPECIFIED FALL, INITIAL ENCOUNTER 09/09/2017 KESHAV CHISHOLM MD Ot Z01.818 ENCOUNTER FOR OTHER PREPROCEDURAL EXAMIN 09/10/2017 KESHAV CHISHOLM MD Ot Z01.818 ENCOUNTER FOR OTHER PREPROCEDURAL EXAMIN 09/12/2017 Ot 562.10 DIV ERTICULOSIS COLON (W/O MENT OF HEMORR 09/12/2017 Ot 593.9 ARTURO L URETERAL DIS NOS 09/12/2017 Ot 733.90 BON E CARTILAGE DIS NOS 09/12/2017 Ot 722.52 LUM B/LUMBOSAC DISC DEGEN 09/12/2017 Ot 794.8 ABN LIVER FUNCTION STUDY 09/12/2017 Ot 573.8 LIVE R DISORDERS NEC 09/12/2017 Ot 600.00 HYP ERTROPHY (BENIGN) OF PROSTATE W/O URI 09/12/2017 Ot 733.90 BON E CARTILAGE DIS NOS 09/12/2017 CARMEN DELVALLE N WIRING MECHANIC Ot 550.90 UNILAT INGUINAL HERNIA 09/12/2017 CARMEN DELVALLE Mitchel WIRING MECHANIC Ot 562.10 DIVERTICULOSIS COLON (W/O MENT OF HEMORR 09/12/2017 DELVALLE DANGJENISE Grullon WIRING MECHANIC Ot 59 1 HYDRONEPHROSIS 09/12/2017 DELVALLE DANGJENISE Grullon WIRING MECHANIC Ot 592.1 CALCULUS OF URETER 09/12/2017 CHRISTIAN HOYOS, CASSANDRA Painting Ot 715.35 LOC OSTEOARTH NOS-PELVIS 09/12/2017 CASSANDRA GONZALES MD Ot 724.2 LUMBAGO 09/12/2017 CASSANDRA GONZALES MD Ot 724.6 DISORDERS OF SACRUM 09/12/2017 GRAHAM HOYOS, MELISSA Painting Ot I25.10 ATHSCL HEART DISEASE OF [place] CORONARY 09/12/2017 DELMY HOYOS, SELENE Rascon Ot G54.1 LUMBOSACRAL PLEXUS DISORDERS 09/12/2017 KESHAV CHISHOLM MD Ot D12. 8 BENIGN NEOPLASM OF RECTUM 09/12/2017 KESHAV CHISHOLM MD Ot K57. 30 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 AB 09/12/2017 KESHAV CHISHOLM MD Ot K63. 5 POLYP OF COLON 09/12/2017 KESHAV CHISHOLM MD Ot Z12. 11 ENCOUNTER FOR SCREENING FOR MALIGNANT NE 09/12/2017 ALONZO HOYOS, MARIO Painting Ot E04.1 NONTOXIC SINGLE THYROID NODULE 09/12/2017 SOLO MENDEZ Ot R 42 DIZZINESS AND GIDDINESS 09/12/2017 SOLO MENDEZ Ot R 51 HEADACHE 09/12/2017 SOLO MENDEZ Ot R53.83 OTHER FATIGUE 09/12/2017 SOLO MENDEZ Ot R93.0 ABNORMAL FINDINGS ON DX IMAGING OF SKULL 09/12/2017 SOLO MENDEZ Ot H53.8 OTHER VISUAL DISTURBANCES 09/12/2017 SOLO MENDEZ Ot R 42 DIZZINESS AND GIDDINESS 09/12/2017 KYLIE HOLLIS MD Ot J44.9 CHRONIC OBSTRUCTIVE PULMONARY DISEASE, U 09/12/2017 KYLIE HOLLIS MD Ot R09.02 HYPOXEMIA 09/12/2017 KYLIE HOLLIS MD Ot M19.012 PRIMARY OSTEOARTHRITIS, LEFT SHOULDER 09/12/2017 KYLIE HOLLIS MD Ot M25.522 PAIN IN LEFT ELBOW 09/12/2017 TELMA HOYOS, KYLIE A Ot W19.XXXA UNSPECIFIED FALL, INITIAL ENCOUNTER 09/12/2017 CASTILLO HOYOS, SONIA Hamilton Ot M25.51 2 PAIN IN LEFT SHOULDER 09/12/2017 SONIA CHONG MD Ot S46.01 1D STRAIN OF MUSC/TEND THE ROTATOR CUFF OF 09/12/2017 KESHAV CHISHOLM MD Ot D12. 8 BENIGN NEOPLASM OF RECTUM 09/12/2017 KESHAV CHISHOLM MD Ot I10 ESSENTIAL (PRIMARY) HYPERTENSION 09/12/2017 KESHAV CHISHOLM MD Ot I25. 10 ATHSCL HEART DISEASE OF [place] CORONARY 09/12/2017 KESHAV CHISHOLM MD Ot Z79. 02 ALF (CURRENT) USE OF ANTITHROMBOTI 09/12/2017 KESHAV CHISHOLM MD Ot Z79. 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 1 PRESENCE OF AORTOCORONARY BYPASS GRAFT 09/14/2017 KESHAV CHISHOLM MD Ot D12. 8 BENIGN NEOPLASM OF RECTUM 09/14/2017 KESHAV CHISHOLM MD Ot E78. 5 HYPERLIPIDEMIA, UNSPECIFIED 09/14/2017 KESHAV CHISHOLM MD Ot I10 ESSENTIAL (PRIMARY) HYPERTENSION 09/14/2017 KESHAV CHISHOLM MD Ot I25. 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 91 SHOULDER LESION, UNSPECIFIED, RIGHT SHOU 09/14/2017 KESHAV CHISHOLM MD Ot M75. 92 SHOULDER LESION, UNSPECIFIED, LEFT SHOUL 09/14/2017 KESHAV CHISHOLM MD Ot Z79. 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 1 PRESENCE OF AORTOCORONARY BYPASS GRAFT 09/15/2017 KESHAV CHISHOLM MD Ot Z01.818 ENCOUNTER FOR OTHER PREPROCEDURAL EXAMIN 09/15/2017 SONIA CHONG MD Ot M25.51 2 PAIN IN LEFT SHOULDER 09/15/2017 SONIA CHONG MD Ot S46.01 1D STRAIN OF MUSC/TEND THE ROTATOR CUFF OF 09/16/2017 KESHAV CHISHOLM MD Ot D12. 8 BENIGN NEOPLASM OF RECTUM 09/16/2017 KESHAV CHISHOLM MD Ot I10 ESSENTIAL (PRIMARY) HYPERTENSION 09/16/2017 KESHAV CHISHOLM MD Ot I25. 10 ATHSCL HEART DISEASE OF [place] CORONARY 09/16/2017 KESHAV CHISHOLM MD Ot Z79. 02 ALF (CURRENT) USE OF ANTITHROMBOTI 09/16/2017 KESHAV CHISHOLM MD Ot Z79. 82 ALF (CURRENT) USE OF ASPIRIN 09/16/2017 KESHAV CHISHOLM MD Ot Z95. 1 PRESENCE OF AORTOCORONARY BYPASS GRAFT 09/17/2017 SONIA CHONG MD Ot M25.51 2 PAIN IN LEFT SHOULDER 09/17/2017 SONIA CHONG MD Ot S46.01 1D STRAIN OF MUSC/TEND THE ROTATOR CUFF OF 09/18/2017 KESHAV CHISHOLM MD Ot E78. 5 HYPERLIPIDEMIA, UNSPECIFIED 09/18/2017 KESHAV CHISHOLM MD Ot I10 ESSENTIAL (PRIMARY) HYPERTENSION 09/18/2017 KESHAV CHISHOLM MD Ot I25. 10 ATHSCL HEART DISEASE OF [place] CORONARY 09/18/2017 KESHAV CHISHOLM MD Ot 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 09/18/2017 KEHSAV CHISHOLM MD Ot M75. 91 SHOULDER LESION, UNSPECIFIED, RIGHT SHOU 09/18/2017 KESHAV CHISHOLM MD Ot M75. 92 SHOULDER LESION, UNSPECIFIED, LEFT SHOUL 09/18/2017 KESHAV CHISHOLM MD Ot Z79. 02 ASSISTANT PRODUCT MANAGER (CURRENT) USE OF ANTITHROMBOTI 09/18/2017 KESHAV CHISHOLM MD Ot Z79.899 OTHER ALF (CURRENT) DRUG THERAPY 09/18/2017 KESHAV CHISHOLM MD Ot Z87.891 PERSONAL HISTORY OF NICOTINE DEPENDENCE 09/18/2017 KESHAV CHISHOLM MD Ot Z95. 1 PRESENCE OF AORTOCORONARY BYPASS GRAFT 09/18/2017 KESHAV CHISHOLM MD Ot E78. 5 HYPERLIPIDEMIA, UNSPECIFIED 09/18/2017 KESHAV CHISHOLM MD Ot I10 ESSENTIAL (PRIMARY) HYPERTENSION 09/18/2017 KESHAV CHISHOLM MD Ot I25. 10 ATHSCL HEART DISEASE OF [place] CORONARY 09/18/2017 KESHAV CHISHOLM MD Ot 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 09/18/2017 KESHAV CHISHOLM MD Ot M75. 91 SHOULDER LESION, UNSPECIFIED, RIGHT SHOU 09/18/2017 KESHAV CHISHOLM MD Ot M75. 92 SHOULDER LESION, UNSPECIFIED, LEFT SHOUL 09/18/2017 KESHAV CHISHOLM MD Ot Z79. 02 ASSISTANT PRODUCT MANAGER (CURRENT) USE OF ANTITHROMBOTI 09/18/2017 KESHAV CHISHOLM MD Ot Z79.899 OTHER ALF (CURRENT) DRUG THERAPY 09/18/2017 KESHAV CHISHOLM MD Ot Z87.891 PERSONAL HISTORY OF NICOTINE DEPENDENCE 09/18/2017 KESHAV CHISHOLM MD Ot Z95. 1 PRESENCE OF AORTOCORONARY BYPASS GRAFT 10/15/2017 KESHAV CHISHOLM MD Ot D12. 8 BENIGN NEOPLASM OF RECTUM 10/15/2017 KESHAV CHISHOLM MD Ot E78. 5 HYPERLIPIDEMIA, UNSPECIFIED 10/15/2017 KESHAV CHISHOLM MD Ot I10 ESSENTIAL (PRIMARY) HYPERTENSION 10/15/2017 KESHAV CHISHOLM MD Ot I25. 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 91 SHOULDER LESION, UNSPECIFIED, RIGHT SHOU 10/15/2017 KESHAV CHISHOLM MD Ot M75. 92 SHOULDER LESION, UNSPECIFIED, LEFT SHOUL 10/15/2017 KESHAV CHISHOLM MD Ot Z79. 02 ALF (CURRENT) USE OF ANTITHROMBOTI 10/15/2017 KESHAV CHISHOLM MD Ot Z79. 82 ASSISTANT PRODUCT MANAGER (CURRENT) USE OF ASPIRIN 10/15/2017 KESHAV CHISHOLM MD Ot Z79.899 OTHER ALF (CURRENT) DRUG THERAPY 10/15/2017 KESHAV CHISHOLM MD Ot Z87.891 PERSONAL HISTORY OF NICOTINE DEPENDENCE 10/15/2017 KESHAV CHISHOLM MD, Ot Z95. 1 PRESENCE OF AORTOCORONARY BYPASS GRAFT 11/06/2017 SONIA CHONG MD Ot M25.51 2 PAIN IN LEFT SHOULDER 11/06/2017 SONIA CHONG MD, Ot S46.01 1D STRAIN OF MUSC/TEND THE ROTATOR CUFF OF 11/07/2017 SONIA CHONG MD Ot M25.51 2 PAIN IN LEFT SHOULDER 11/07/2017 SONIA CHONG MD Ot S46.01 1D STRAIN OF MUSC/TEND THE ROTATOR CUFF OF 11/11/2017 SONIA CHONG MD Ot M25.51 2 PAIN IN LEFT SHOULDER 11/11/2017 SONIA CHONG MD Ot S46.01 1D STRAIN OF MUSC/TEND THE ROTATOR CUFF OF 11/17/2017 SONIA CHONG MD Ot M25.51 2 PAIN IN LEFT SHOULDER 11/17/2017 SONIA CHONG MD Ot S46.01 1D STRAIN OF MUSC/TEND THE ROTATOR CUFF OF 11/23/2017 SONIA CHONG MD Ot M25.51 2 PAIN IN LEFT SHOULDER 11/23/2017 SONIA CHONG MD Ot S46.01 1D STRAIN OF MUSC/TEND THE ROTATOR CUFF OF 11/26/2017 SONIA CHONG MD Ot M25.51 2 PAIN IN LEFT SHOULDER 11/26/2017 SONIA CHONG MD Ot S46.01 1D STRAIN OF MUSC/TEND THE ROTATOR CUFF OF 11/26/2017 SONIA CHONG MD Ot M25.51 2 PAIN IN LEFT SHOULDER 11/26/2017 SONIA CHONG MD Ot S46.01 1D STRAIN OF MUSC/TEND THE ROTATOR CUFF OF 11/28/2017 SONIA CHONG MD Ot M25.51 2 PAIN IN LEFT SHOULDER 11/28/2017 SONIA CHONG MD Ot S46.01 1D STRAIN OF MUSC/TEND THE ROTATOR CUFF OF 12/14/2017 KESHAV CHISHOLM MD Ot D12. 8 BENIGN NEOPLASM OF RECTUM 12/14/2017 KESHAV CHISHOLM MD, Ot E78. 5 HYPERLIPIDEMIA, UNSPECIFIED 12/14/2017 KESHAV CHISHOLM MD, Ot I10 ESSENTIAL (PRIMARY) HYPERTENSION 12/14/2017 KESHAV CHISHOLM MD, Ot I25. 10 ATHSCL HEART DISEASE OF [place] CORONARY 12/14/2017 KESHAV CHISHOLM MD, Ot 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 12/14/2017 KATHRINE HOYOS, KESHAV Painting Ot M75. 91 SHOULDER LESION, UNSPECIFIED, RIGHT SHOU 12/14/2017 KESHAV CHISHOLM MD, Ot M75. 92 SHOULDER LESION, UNSPECIFIED, LEFT SHOUL 12/14/2017 KESHAV CHISHOLM MD Ot Z79. 02 ALF (CURRENT) USE OF ANTITHROMBOTI 12/14/2017 KESHAV CHISHOLM MD Ot Z79. 82 ALF (CURRENT) USE OF ASPIRIN 12/14/2017 KESHAV CHISHOLM MD, Ot Z79.899 OTHER ASSISTANT PRODUCT MANAGER (CURRENT) DRUG THERAPY 12/14/2017 KESHAV CHISHOLM MD, Ot Z87.891 PERSONAL HISTORY OF NICOTINE DEPENDENCE 12/14/2017 KESHAV CHISHOLM MD Ot Z95. 1 PRESENCE OF AORTOCORONARY BYPASS GRAFT 12/22/2017 ELISE CAMEJO REGIONAL BUSINESS MANAGER Ot M47.812 SPONDYLOSIS W/O MYELOPATHY OR RADICULOPA 12/22/2017 ELISE CAMEJO REGIONAL BUSINESS MANAGER Ot M47.816 SPONDYLOSIS W/O MYELOPATHY OR RADICULOPA 12/22/2017 ELISE CAMEJO REGIONAL BUSINESS MANAGER Ot M48.02 SPINAL STENOSIS, CERVICAL REGION 12/22/2017 ELISE CAMEJO REGIONAL BUSINESS MANAGER Ot M50.21 OTHER CERVICAL DISC DISPLACEMENT, HIGH C 12/22/2017 ELISE CAMEJO REGIONAL BUSINESS MANAGER Ot M50.30 OTHER CERVICAL DISC DEGENERATION, UNSP C 12/22/2017 ELISE CAMEJO REGIONAL BUSINESS MANAGER Ot M51.36 OTHER INTERVERTEBRAL DISC DEGENERATION, 12/22/2017 ELISE CAMEJO REGIONAL BUSINESS MANAGER Ot M99.73 CONN 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 01/08/2018 ELISE CAMEJO REGIONAL BUSINESS MANAGER Ot M47.812 SPONDYLOSIS W/O MYELOPATHY OR RADICULOPA 01/08/2018 ELISE CAMEJO REGIONAL BUSINESS MANAGER Ot M47.816 SPONDYLOSIS W/O MYELOPATHY OR RADICULOPA 01/08/2018 ELISE CAMEJO REGIONAL BUSINESS MANAGER Ot M48.02 SPINAL STENOSIS, CERVICAL REGION 01/08/2018 ELISE CAMEJO REGIONAL BUSINESS MANAGER Ot M50.21 OTHER CERVICAL DISC DISPLACEMENT, HIGH C 01/08/2018 ELISE CAMEJO REGIONAL BUSINESS MANAGER Ot M50.30 OTHER CERVICAL DISC DEGENERATION, UNSP C 01/08/2018 NELL ELISE M REGIONAL BUSINESS MANAGER Ot M51.36 OTHER INTERVERTEBRAL DISC DEGENERATION, 01/08/2018 ELISE CAMEJO REGIONAL BUSINESS MANAGER Ot M99.73 CONN 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 01/19/2018 ELISE CAMEJO REGIONAL BUSINESS MANAGER Ot M47.812 SPONDYLOSIS W/O MYELOPATHY OR RADICULOPA 01/19/2018 ELISE CAMEJO REGIONAL BUSINESS MANAGER Ot M47.816 SPONDYLOSIS W/O MYELOPATHY OR RADICULOPA 01/19/2018 ELISE CAMEJO REGIONAL BUSINESS MANAGER Ot M48.02 SPINAL STENOSIS, CERVICAL REGION 01/19/2018 ELISE CAMEJO REGIONAL BUSINESS MANAGER Ot M50.21 OTHER CERVICAL DISC DISPLACEMENT, HIGH C 01/19/2018 ELISE CAMEJO REGIONAL BUSINESS MANAGER Ot M50.30 OTHER CERVICAL DISC DEGENERATION, UNSP C 01/19/2018 ELISE CAMEJO REGIONAL BUSINESS MANAGER Ot M51.36 OTHER INTERVERTEBRAL DISC DEGENERATION, 01/19/2018 ELISE CAMEJO REGIONAL BUSINESS MANAGER Ot M99.73 CONN 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 01/19/2018 SONIA CHONG MD Ot M25.51 2 PAIN IN LEFT SHOULDER 01/19/2018 SONIA CHONG MD Ot S46.01 1D STRAIN OF MUSC/TEND THE ROTATOR CUFF OF 02/20/2018 SONIA CHONG MD Ot M25.51 2 PAIN IN LEFT SHOULDER 02/20/2018 SONIA CHONG MD Ot S46.01 1D STRAIN OF MUSC/TEND THE ROTATOR CUFF OF 02/27/2018 KESHAV CHISHOLM MD Ot D12. 8 BENIGN NEOPLASM OF RECTUM 02/27/2018 KESHAV CHISHOLM MD, Ot E78. 5 HYPERLIPIDEMIA, UNSPECIFIED 02/27/2018 KESHAV CHISHOLM MD Ot I10 ESSENTIAL (PRIMARY) HYPERTENSION 02/27/2018 KESHAV CHISHOLM MD, Ot I25. 10 ATHSCL HEART DISEASE OF [place] CORONARY 02/27/2018 KESHAV CHISHOLM MD, Ot 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 02/27/2018 KESHAV CHISHOLM MD, Ot M75. 91 SHOULDER LESION, UNSPECIFIED, RIGHT SHOU 02/27/2018 KESHAV CHISHOLM MD, Ot M75. 92 SHOULDER LESION, UNSPECIFIED, LEFT SHOUL 02/27/2018 KESHAV CHISHOLM MD Ot Z79. 02 ALF (CURRENT) USE OF ANTITHROMBOTI 02/27/2018 KESHAV CHISHOLM MD Ot Z79. 82 ALF (CURRENT) USE OF ASPIRIN 02/27/2018 KESHAV CHISHOLM MD, Ot Z79.899 OTHER ASSISTANT PRODUCT MANAGER (CURRENT) DRUG THERAPY 02/27/2018 KESHAV CHISHOLM MD, Ot Z87.891 PERSONAL HISTORY OF NICOTINE DEPENDENCE 02/27/2018 KESHAV CHISHOLM MD Ot Z95. 1 PRESENCE OF AORTOCORONARY BYPASS GRAFT 06/08/2018 KESHAV CHISHOLM MD Ot Z01.818 ENCOUNTER FOR OTHER PREPROCEDURAL EXAMIN 06/10/2018 KESHAV CHISHOLM MD Ot Z01.818 ENCOUNTER FOR OTHER PREPROCEDURAL EXAMIN 06/10/2018 KESHAV CHISHOLM MD, Ot Z01.818 ENCOUNTER FOR OTHER PREPROCEDURAL EXAMIN 06/12/2018 KESHAV CHISHOLM MD Ot D12. 8 BENIGN NEOPLASM OF RECTUM 06/16/2018 KESHAV CHISHOLM MD, Ot D12. 8 BENIGN NEOPLASM OF RECTUM 07/01/2018 ELISE CAMEJO REGIONAL BUSINESS MANAGER Ot M25.511 PAIN IN RIGHT SHOULDER 07/22/2018 ELISE CAMEJO REGIONAL BUSINESS MANAGER Ot M25.511 PAIN IN RIGHT SHOULDER 07/30/2018 ELISE CAMEJOP Ot M25.511 PAIN IN RIGHT SHOULDER 11/09/2018 SONIA CHONG MD Ot M25.51 1 PAIN IN RIGHT SHOULDER 11/09/2018 SONIA CHONG MD Ot Z98.89 0 OTHER SPECIFIED POSTPROCEDURAL STATES 11/19/2018 SONIA CHONG MD Ot M25.51 1 PAIN IN RIGHT SHOULDER 11/19/2018 SONIA CHONG MD Ot Z98.89 0 OTHER SPECIFIED POSTPROCEDURAL STATES 12/16/2018 KESHAV MARIE MD Ot K62. 5 HEMORRHAGE OF ANUS AND RECTUM 12/16/2018 KESHAV MARIE MD Ot M54. 9 DORSALGIA, UNSPECIFIED 12/21/2018 SONIA CHONG MD Ot M25.51 1 PAIN IN RIGHT SHOULDER 12/21/2018 SONIA CHONG MD Ot Z98.89 0 OTHER SPECIFIED POSTPROCEDURAL STATES 12/21/2018 SELENE BROCK MD Ot Z01.8 18 ENCOUNTER FOR OTHER PREPROCEDURAL EXAMIN 12/22/2018 SONIA CHONG MD Ot M25.51 1 PAIN IN RIGHT SHOULDER 12/22/2018 SONIA CHONG MD Ot Z98.89 0 OTHER SPECIFIED POSTPROCEDURAL STATES 12/22/2018 SELENE BROCK MD, Ot G62.9 POLYNEUROPATHY, UNSPECIFIED 12/22/2018 SELENE BROCK MD Ot I10 ESSENTIAL (PRIMARY) HYPERTENSION 12/22/2018 SELENE BROCK MD Ot I25.1 0 ATHSCL HEART DISEASE OF [place] CORONARY 12/22/2018 SELENE BROCK MD Ot N13.8 OTHER OBSTRUCTIVE AND REFLUX UROPATHY 12/22/2018 SELENE BROCK MD Ot N20.1 CALCULUS OF URETER 12/22/2018 SELENE BROCK MD Ot N40.1 BENIGN PROSTATIC HYPERPLASIA WITH LOWER 12/22/2018 SELENE BROCK MD Ot Z79.5 2 ALF (CURRENT) USE OF SYSTEMIC STER 12/22/2018 SELENE BROCK MD Ot Z79.8 91 ALF (CURRENT) USE OF OPIATE ANALGE 12/22/2018 SELENE BROCK MD, Ot Z79.8 99 OTHER ASSISTANT PRODUCT MANAGER (CURRENT) DRUG THERAPY 12/22/2018 SELENE BROCK MD, Ot Z86.7 3 PRSNL HX OF TIA (TIA), AND CEREB INFRC W 12/22/2018 SELENE BROCK MD Ot Z95.1 PRESENCE OF AORTOCORONARY BYPASS GRAFT 12/22/2018 SONIA CHONG MD Ot M25.51 1 PAIN IN RIGHT SHOULDER 12/22/2018 SONIA CHONG MD Ot Z98.89 0 OTHER SPECIFIED POSTPROCEDURAL STATES 12/23/2018 SELENE BROCK MD Ot Z01.8 18 ENCOUNTER FOR OTHER PREPROCEDURAL EXAMIN 12/24/2018 SELENE BROCK MD Ot G62.9 POLYNEUROPATHY, UNSPECIFIED 12/24/2018 SELENE BROCK MD Ot I10 ESSENTIAL (PRIMARY) HYPERTENSION 12/24/2018 SELENE BROCK MD Ot I25.1 0 ATHSCL HEART DISEASE OF [place] CORONARY 12/24/2018 SELENE BROCK MD Ot N13.8 OTHER OBSTRUCTIVE AND REFLUX UROPATHY 12/24/2018 SELENE BROCK MD, Ot N20.1 CALCULUS OF URETER 12/24/2018 SELENE BROCK MD, Ot N40.1 BENIGN PROSTATIC HYPERPLASIA WITH LOWER 12/24/2018 SELENE BROCK MD Ot Z79.5 2 ASSISTANT PRODUCT MANAGER (CURRENT) USE OF SYSTEMIC STER 12/24/2018 SELENE BROCK MD Ot Z79.8 91 ALF (CURRENT) USE OF OPIATE ANALGE 12/24/2018 SELENE BROCK MD, Ot Z79.8 99 OTHER ASSISTANT PRODUCT MANAGER (CURRENT) DRUG THERAPY 12/24/2018 SELENE BROCK MD Ot Z86.7 3 PRSNL HX OF TIA (TIA), AND CEREB INFRC W 12/24/2018 SELENE BROCK MD Ot Z95.1 PRESENCE OF AORTOCORONARY BYPASS GRAFT 12/28/2018 SONIA CHONG MD Ot M25.51 1 PAIN IN RIGHT SHOULDER 12/28/2018 SONIA CHONG MD Ot Z98.89 0 OTHER SPECIFIED POSTPROCEDURAL STATES 12/29/2018 SELENE BROCK MD Ot G62.9 POLYNEUROPATHY, UNSPECIFIED 12/29/2018 SELENE BROCK MD Ot I10 ESSENTIAL (PRIMARY) HYPERTENSION 12/29/2018 SELENE BROCK MD, Ot I25.1 0 ATHSCL HEART DISEASE OF [place] CORONARY 12/29/2018 SELENE BROCK MD Ot N13.8 OTHER OBSTRUCTIVE AND REFLUX UROPATHY 12/29/2018 SELENE BROCK MD Ot N20.1 CALCULUS OF URETER 12/29/2018 SELENE BROCK MD, Ot N40.1 BENIGN PROSTATIC HYPERPLASIA WITH LOWER 12/29/2018 SELENE BROCK MD Ot Z79.5 2 ALF (CURRENT) USE OF SYSTEMIC STER 12/29/2018 SELENE BROCK MD Ot Z79.8 91 ASSISTANT PRODUCT MANAGER (CURRENT) USE OF OPIATE ANALGE 12/29/2018 SELENE BROCK MD Ot Z79.8 99 OTHER ASSISTANT PRODUCT MANAGER (CURRENT) DRUG THERAPY 12/29/2018 DELMYSELENE DAWN MD, Ot Z86.7 3 PRSNL HX OF TIA (TIA), AND CEREB INFRC W 12/29/2018 SELENE BROCK MD Ot Z95.1 PRESENCE OF AORTOCORONARY BYPASS GRAFT 12/31/2018 SONIA CHONG MD Ot M25.51 1 PAIN IN RIGHT SHOULDER 12/31/2018 SONIA CHONG MD Ot Z98.89 0 OTHER SPECIFIED POSTPROCEDURAL STATES 01/04/2019 SONIA CHONG MD Ot M25.51 1 PAIN IN RIGHT SHOULDER 01/04/2019 SONIA CHONG MD Ot Z98.89 0 OTHER SPECIFIED POSTPROCEDURAL STATES 01/06/2019 SELENE BROCK MD Ot Z87.4 42 PERSONAL HISTORY OF URINARY CALCULI 01/06/2019 SELENE BROCK MD Ot K40.9 0 UNIL INGUINAL HERNIA, W/O OBST OR GANGR, 01/06/2019 SELENE BROCK MD Ot R91.1 SOLITARY PULMONARY NODULE 01/14/2019 SELENE BROCK MD Ot Z87.4 42 PERSONAL HISTORY OF URINARY CALCULI 01/18/2019 SELENE BROCK MD Ot Z87.4 42 PERSONAL HISTORY OF URINARY CALCULI 01/21/2019 SELENE BROCK MD Ot Z87.4 42 PERSONAL HISTORY OF URINARY CALCULI 01/26/2019 SELENE BROCK MD Ot K40.9 0 UNIL INGUINAL HERNIA, W/O OBST OR GANGR, 01/26/2019 SELENE BROCK MD Ot R91.1 SOLITARY PULMONARY NODULE 02/02/2019 SONIA CHONG MD Ot M25.51 1 PAIN IN RIGHT SHOULDER 02/02/2019 SONIA CHONG MD Ot Z98.89 0 OTHER SPECIFIED POSTPROCEDURAL STATES 02/18/2019 SELENE BROCK MD Ot K40.9 0 UNIL INGUINAL HERNIA, W/O OBST OR GANGR, 02/18/2019 SELENE BROCK MD Ot R91.1 SOLITARY PULMONARY NODULE 03/15/2019 KESHAV CHISHOLM MD Ot Z01.818 ENCOUNTER FOR OTHER PREPROCEDURAL EXAMIN 03/16/2019 KESHAV CHISHOLM MD Ot Z01.818 ENCOUNTER FOR OTHER PREPROCEDURAL EXAMIN 03/16/2019 KESHAV CHISHOLM MD Ot Z01.818 ENCOUNTER FOR OTHER PREPROCEDURAL EXAMIN 03/19/2019 KESHAV CHISHOLM MD Ot D12. 8 BENIGN NEOPLASM OF RECTUM 03/19/2019 KESHAV CHISHOLM MD Ot I25. 10 ATHSCL HEART DISEASE OF [place] CORONARY 03/19/2019 KESHAV CHISHOLM MD Ot Z12. 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 Results Test Result Range Automated blood complete blood count (he mogram) panel - 08/08/16 17:05 Blood leukocytes automated count (number/volume) 7.6 10*3/uL 4.3-11.0 Blood erythrocytes automated count (number/volume) 6.08 10*6/uL 4.35-5.85 Venous blood hemoglobin measurement (mass/volume) 16.5 g/dL 13.3-17.7 Blood hematocrit (volume fraction) 52 % 40-54 Automated erythrocyte mean corpuscular volume 85 [ foz_us] 80-99 Automated erythrocyte mean corpuscular h emoglobin (mass per erythrocyte) 27 pg 25-34 Automated erythrocyte mean corpuscular h emoglobin concentration measurement (mass/volume) 32 g/dL 32-36 Automated erythrocyte distribution width ratio 14. 3 % 10.0- 14.5 Automated blood platelet count (count/volume) 291 10*3/uL [...] 5-14 Serum or plasma urea nitrogen measurement (mass/volume ) 12 mg/dL 7-18 Serum or plasma creatinine measurement (mass/volume) 1.11 mg/dL 0.60-1.30 Serum or plasma urea nitrogen/creatinine mass ratio 11 0-20 Serum or plasma creatinine measurement w ith calculation of estimated glomerular filtration rate > NRG Serum or plasma glucose measurement (mass/volume) 98 mg/dL 70-105 Serum or plasma calcium measurement (mass/volume) 8.8 mg/dL 8.5-10.1 Serum or plasma total bilirubin measurement (mass/volu me) 0.6 mg/dL 0.1-1.0 Serum or plasma alkaline phosphatase michel surement (enzymatic activity/volume) 52 U/L 40-136 Serum or plasma aspartate aminotransfera se measurement (enzymatic activity/volume) 17 U/L 5-34 Serum or plasma alanine aminotransferase measurement (enzymatic activity/volume) 19 U/L 0-55 Serum or plasma protein measurement (mass/volume) 5.5 g/dL 6.4-8.2 Serum or plasma albumin measurement (mass/volume) 4.0 g/dL 3.2-4.5 Serum or plasma troponin i.cardiac measu rement (mass/volume) - 08/08/16 17:05 Serum or plasma troponin i.cardiac measurement (mass/v olume) < ng/mL <0.30 THYROID STIMULATING HORMONE - 08/08/16 1 7:05 THYROID STIMULATING HORMONE 3.27 u[iU]/mL 0.35-4.94 Complete urinalysis with reflex to cultu re - 08/08/16 17:13 Urine color determination YELLOW NRG Urine clarity determination CLEAR NR G Urine pH measurement by test strip 5 5-9 Specific gravity of urine by test strip 1.025 1.016-1.022 Urine protein assay by test strip, semi-quantitative 2+ NEGATIVE Urine glucose detection by automated test strip NE GATIVE NEGATIVE Erythrocytes detection in urine sediment by light micr oscopy NEGATIVE NEGATIVE Urine ketones detection by automated test strip NE GATIVE NEGATIVE Urine nitrite detection by test strip NEGATIVE NEGATIVE Urine total bilirubin detection by test strip NEGA TIVE NEGATIVE Urine urobilinogen measurement by automated test strip (mass/volume) 4 mg/dL NORMAL Urine leukocyte esterase detection by dipstick 1+ NEGATIVE Automated urine sediment erythrocyte cou nt by microscopy (number/high power field) NONE NRG Automated urine sediment leukocyte count by microscopy (number/high power field) [HPF] NRG Bacteria detection in urine sediment by light microsco py NONE NRG Crystals detection in urine sediment by light microsco py NONE NRG Casts detection in urine sediment by light microscopy NONE NRG Mucus detection in urine sediment by light microscopy SMALL NRG Complete urinalysis with reflex to culture NO NRG Complete blood count (CBC) with automate d white blood cell (WBC) differential - 09/12/17 20:25 Blood leukocytes automated count (number/volume) 6.8 10*3/uL 4.3-11.0 Blood erythrocytes automated count (number/volume) 5.27 10*6/uL 4.35-5.85 Venous blood hemoglobin measurement (mass/volume) 15.2 g/dL 13.3-17.7 Blood hematocrit (volume fraction) 46 % 40-54 Automated erythrocyte mean corpuscular volume 88 [ foz_us] 80-99 Automated erythrocyte mean corpuscular h emoglobin (mass per erythrocyte) 29 pg 25-34 Automated erythrocyte mean corpuscular h emoglobin concentration measurement (mass/volume) 33 g/dL 32-36 Automated erythrocyte distribution width ratio 14. 9 % 10.0- 14.5 Automated blood platelet count (count/volume) 331 10*3/uL [...] 10*3 1.0-4.0 Blood monocytes automated count (number/volume) 0. 9 10*3 0.0-1.0 Automated eosinophil count 0.3 10*3/uL 0 .0-0.3 Automated blood basophil count (count/volume) 0.1 10*3/uL 0.0-0.1 Comprehensive metabolic panel - 09/12/17 20:45 Serum or plasma sodium measurement (moles/volume) 140 mmol/L 135-145 Serum or plasma potassium measurement (moles/volume) 3.9 mmol/L 3.6-5.0 Serum or plasma chloride measurement (moles/volume) 106 mmol/L 98-107 Carbon dioxide 23 mmol/L 21-32 Serum or plasma anion gap determination (moles/volume) 11 mmol/L 5-14 Serum or plasma urea nitrogen measurement (mass/volume ) 9 mg/dL 7-18 Serum or plasma creatinine measurement (mass/volume) 0.94 mg/dL 0.60-1.30 Serum or plasma urea nitrogen/creatinine mass ratio 10 NRG Serum or plasma creatinine measurement w ith calculation of estimated glomerular filtration rate > NRG Serum or plasma glucose measurement (mass/volume) 109 mg/dL 70-105 Serum or plasma calcium measurement (mass/volume) 8.7 mg/dL 8.5-10.1 Serum or plasma total bilirubin measurement (mass/volu me) 0.6 mg/dL 0.1-1.0 Serum or plasma alkaline phosphatase michel surement (enzymatic activity/volume) 59 U/L 40-136 Serum or plasma aspartate aminotransfera se measurement (enzymatic activity/volume) 18 U/L 5-34 Serum or plasma alanine aminotransferase measurement (enzymatic activity/volume) 15 U/L 0-55 Serum or plasma protein measurement (mass/volume) 5.8 g/dL 6.4-8.2 Serum or plasma albumin measurement (mass/volume) 3.7 g/dL 3.2-4.5 Blood type T Indirect antibody screen pa warren - 09/12/17 20:45 ABO+Rh group OP [facility] Transfusion band number [id number] [facility] Blood group antibody screen NEGATIVE NR PT panel in platelet poor plasma by coag ulation assay - 09/12/17 20:45 Prothrombin time (PT) in platelet poor plasma by coagu lation assay 13.3 s 12.2-14.7 INR in platelet poor plasma or blood by coagulation as say 1.0 0.8-1.4 Activated partial thromboplastin time (a PTT) in platelet poor plasma bycoagulation assay - 09/12/17 20:45 Activated partial thromboplastin time (a PTT) in platelet poor plasma bycoagulation assay 26 s 24-35 Complete blood count (CBC) with automate d white blood cell (WBC) differential - 09/13/17 04:55 Blood leukocytes automated count (number/volume) 5.0 10*3/uL 4.3-11.0 Blood erythrocytes automated count (number/volume) 4.56 10*6/uL 4.35-5.85 Venous blood hemoglobin measurement (mass/volume) 13.0 g/dL 13.3-17.7 Blood hematocrit (volume fraction) 40 % 40-54 Automated erythrocyte mean corpuscular volume 89 [ foz_us] 80-99 Automated erythrocyte mean corpuscular h emoglobin (mass per erythrocyte) 29 pg 25-34 Automated erythrocyte mean corpuscular h emoglobin concentration measurement (mass/volume) 32 g/dL 32-36 Automated erythrocyte distribution width ratio 14. 9 % 10.0- 14.5 Automated blood platelet count (count/volume) 293 10*3/uL [...] 10*3 1.0-4.0 Blood monocytes automated count (number/volume) 0. 6 10*3 0.0-1.0 Automated eosinophil count 0.3 10*3/uL 0 .0-0.3 Automated blood basophil count (count/volume) 0.1 10*3/uL 0.0-0.1 Whole blood basic metabolic panel - 08/25 03/13 04:55 Serum or plasma sodium measurement (moles/volume) 139 mmol/L 135-145 Serum or plasma potassium measurement (moles/volume) 3.9 mmol/L 3.6-5.0 Serum or plasma chloride measurement (moles/volume) 112 mmol/L 98-107 Carbon dioxide 22 mmol/L 21-32 Serum or plasma anion gap determination (moles/volume) 5 mmol/L 5-14 Serum or plasma urea nitrogen measurement (mass/volume ) 9 mg/dL 7-18 Serum or plasma creatinine measurement (mass/volume) 0.76 mg/dL 0.60-1.30 Serum or plasma urea nitrogen/creatinine mass ratio 12 NRG Serum or plasma creatinine measurement w ith calculation of estimated glomerular filtration rate > NRG Serum or plasma glucose measurement (mass/volume) 110 mg/dL 70-105 Serum or plasma calcium measurement (mass/volume) 8.0 mg/dL 8.5-10.1 Automated blood complete blood count (he mogram) panel - 09/14/17 05:10 Blood leukocytes automated count (number/volume) 4.9 10*3/uL 4.3-11.0 Blood erythrocytes automated count (number/volume) 4.37 10*6/uL 4.35-5.85 Venous blood hemoglobin measurement (mass/volume) 12.5 g/dL 13.3-17.7 Blood hematocrit (volume fraction) 39 % 40-54 Automated erythrocyte mean corpuscular volume 89 [ foz_us] 80-99 Automated erythrocyte mean corpuscular h emoglobin (mass per erythrocyte) 29 pg 25-34 Automated erythrocyte mean corpuscular h emoglobin concentration measurement (mass/volume) 32 g/dL 32-36 Automated erythrocyte distribution width ratio 14. 9 % 10.0- 14.5 Automated blood platelet count (count/volume) 285 10*3/uL 130-400 Automated blood platelet mean volume measurement 9.4 [foz_us] 7.4-10.4 Methicillin resistant Staphylococcus aur eus (MRSA) screening culture - 12/22/18 06:25 Methicillin resistant Staphylococcus aureus (MRSA) scr eening culture NEG NRG Encounters ACCT No. Visit Date/Time Discharge Status Pt. Type Provider Facility Loc./Unit Complaint [id number] 03/04/2017 09:09:01 03/04/2017 23:59:5 9 CLS Outpatient [id number] 03/19/2019 07:15:00 020 09:35:00 DIS Outpatient KESHAV CHISHOLM MD [facility] ENDO VILLOUS ADENOMA RECTUM [id number] 03/15/2019 05:39:00 020 13:04:00 DIS Outpatient KESHAV CHISHOLM MD [facility] PREOP COLONOSCOPY [id number] 02/02/2019 08:30:00 09:31:00 DIS Outpatient SONIA CHONG MD [facility] REHAB S/P R SHOULDER RCR [id number] 01/04/2019 13:33:00 23:59:59 CLS Outpatient SELENE BROCK MD [facility] RAD FLANK PAIN [id number] 01/04/2019 12:33:00 23:59:59 CLS Outpatient SELENE BROCK MD [facility] RAD LT STONE [id number] 12/22/2018 05:59:00 10:15:00 DIS Outpatient SELENE BROCK MD [facility] SDC LEFT URETERAL STONE [id number] 12/21/2018 05:54:00 15:19:00 DIS Outpatient SELENE BROCK MD [facility] PREOP LEFT URETERAL STONE [id number] 12/16/2018 09:06:00 00:01:00 DIS Outpatient SONIA CHONG MD [facility] REHAB S/P R SHOULDER RCR [id number] 12/13/2018 07:44:00 08:57:00 DIS Outpatient KESHAV MARIE MD [facility] ER BACK PAIN [id number] 07/09/2018 08:00:00 23:59:59 CLS Preadmit ELISE CAMEJO [facility] RAD RT SHOULDER BEST N [id number] 06/29/2018 10:59:00 23:59:59 CLS Outpatient ELISE CAMEJO [facility] RAD RIGHT SHOULDER PAIN [id number] 06/12/2018 06:53:00 11:20:00 DIS Outpatient KESHAV CHISHOLM MD [facility] ENDO VILLOUS ADENOMA DISTAL RECTUM [id number] 06/10/2018 09:30:00 019 09:38:00 DIS Outpatient KESHAV CHISHOLM MD [facility] PREOP SIGMOIDOSCOPY [id number] 02/20/2018 08:26:00 018 09:20:00 DIS Outpatient SONIA CHONG MD [facility] REHAB MASSIVE R RCR; L SHOULD ER PAIN [id number] 12/17/2017 10:37:00 018 23:59:59 CLS Outpatient ELISE CAMEJO [facility] RAD CERVICAL AND LO W BACK PAIN [id number] 11/17/2017 08:32:00 018 00:01:00 DIS Outpatient SONIA CHONG MD [facility] REHAB MASSIVE R RCR; L SHOULD ER PAIN [id number] 10/28/2017 08:30:00 018 00:01:00 DIS [facility] [id number] 09/12/2017 23:05:00 018 09:50:00 DIS Outpatient KESHAV CHISHOLM MD [facility] SDC RECTAL BLEEDING, POST R ECTAL POLYPECTOMY [id number] 09/12/2017 08:30:00 018 12:40:00 DIS Outpatient KESHAV CHISHOLM MD [facility] ENDO SURVEILLANCE RECTAL DENNY LOUS ADENOMA [id number] 09/09/2017 05:59:00 018 10:11:00 DIS Outpatient KESHAV CHISHOLM MD [facility] PREOP SIGMOIDOSCOPY [id number] 07/22/2017 11:31:00 018 23:59:59 CLS Outpatient KYLEI HOLLIS MD [facility] RAD LEFT SHOULDER PAIN [id number] 07/09/2017 07:07:00 018 23:59:59 CLS Outpatient KYLIE HOLLIS MD [facility] RT HYPOXEMIA,COPD [id number] 05/08/2017 10:25:00 018 16:00:00 DIS Outpatient ANNA ORELLANA MD [facility] REHAB R SHOULDER PAIN [id number] 05/23/2017 06:49:00 018 09:00:00 DIS Outpatient KESHAV CHISHOLM MD [facility] ENDO RECTAL VILLOUS ADENOMA [id number] 05/21/2017 21:00:00 018 06:35:00 DIS Outpatient KYLIE HOLLIS MD [facility] SLEEP SLEEP RELATED HYPOVENT ILATION G47.36 [id number] 05/19/2017 12:00:00 018 12:37:00 DIS Outpatient KESHAV CHISHOLM MD [facility] PREOP SIGMOIDOSCOPY [id number] 05/05/2017 10:48:00 018 00:01:00 DIS Outpatient ANNA ORELLANA MD [facility] REHAB R SHOULDER PAIN [id number] 02/25/2017 00:10:00 018 23:59:59 CLS Preadmit KULWANT NOGUEIRA MD [facility] REHAB NECK PAIN [id number] 01/30/2017 08:57:00 018 00:10:00 DIS Outpatient KULWANT NOGUEIRA MD [facility] REHAB NECK PAIN [id number] 11/22/2016 11:16:00 017 00:01:00 DIS Outpatient KULWANT NOGUEIRA MD [facility] REHAB NECK PAIN [id number] 08/21/2016 10:07:00 017 23:59:59 CLS Outpatient SOLO MENDEZ [facility] RAD DIZZINESS, ABNO RMAL CT [id number] 08/16/2016 06:56:00 017 13:40:00 DIS Outpatient KESHAV CHISHOLM MD [facility] ENDO VILLIOUS ADENOUS RECTUM [id number] 08/14/2016 05:31:00 017 14:27:00 DIS Outpatient KESHAV CHISHOLM MD [facility] PREOP VILLIOUS ADENOUS RECTUM [id number] 08/08/2016 16:49:00 017 23:59:59 CLS Outpatient SOLO MENDEZ [facility] RAD DIZZNINESS,BLUR RY VISION [id number] 02/12/2016 10:24:00 016 23:59:59 CLS Outpatient MARIO ROSADO MD [facility] RAD THYROID NODULE [id number] 09/15/2015 08:51:00 016 23:59:59 CLS Outpatient KESHAV CHISHOLM MD [facility] SDC SCREENING [id number] 09/11/2015 05:41:00 016 09:34:00 DIS Outpatient KESHAV CHISHOLM MD [facility] PREOP SCREENING [id number] 09/01/2015 08:28:00 016 11:08:00 DIS Outpatient KULWANT NOGUEIRA MD [facility] REHAB NECK PAIN [id number] 07/31/2015 14:10:00 016 18:06:00 DIS Emergency KODI ESQUEDA APRN [facility] ER DIZZINESS CHEST PAIN/SO A [id number] 07/14/2015 11:28:00 016 23:59:59 CLS Outpatient SELENE BROCK MD [facility] CARD LESION L3 [id number] 04/13/2015 08:25:00 016 13:05:00 DIS Outpatient MELISSA STEVENSON MD [facility] REHAB GENERAL MUSCLE WEAKNES S, GAIT ATAXIA [id number] 02/22/2015 15:00:00 016 00:01:00 DIS Outpatient MELISSA STEVENSON MD [facility] REHAB GENERAL MUSCLE WEAKNES S, GAIT ATAXIA [id number] 11/30/2014 15:02:00 23:59:59 CLS Outpatient MELISSA STEVENSON MD [facility] LAB CAD [id number] 08/03/2014 12:04:00 23:59:59 CLS Preadmit CASSANDRA GONZALES MD [facility] REHAB [id number] 04/08/2014 13:13:00 18:55:00 DIS Emergency SOLO MENDEZ [facility] ER POSS MINI STROKE [id number] 12/21/2013 14:24:00 23:59:59 CLS Outpatient CASSANDRA GONZALES MD [facility] RAD LOW BACK PAIN, HIP BEST N [id number] 10/27/2013 15:39:00 23:59:59 CLS Outpatient CARMEN DELVALLE APRN [facility] RAD ABD PAIN [id number] 04/06/2012 11:46:00 Document Registration [id number] 04/02/2012 08:16:00 Document Registration [id number] 03/31/2012 14:04:00 Document Registration
== END 2019-05-09 13:35 | disposition home or self-care (01) ==
LOC: EDUNIT# 11:28 → ER 11:29
DX: M25.511 Pain in right shoulder (principal); M54.5 Low back pain; M54.2 Cervicalgia; I10 Essential (primary) hypertension; E78.00 Pure hypercholesterolemia, unspecified; I25.10 Atherosclerotic heart disease of native coronary artery without angina pectoris; Z86.73 Personal history of transient ischemic attack (TIA), and cerebral infarction without residual deficits; Z95.1 Presence of aortocoronary bypass graft; Z79.02 Long term (current) use of antithrombotics/antiplatelets; Z87.891 Personal history of nicotine dependence; W01.198A Fall on same level from slipping, tripping and stumbling with subsequent striking against other object, initial encounter
CPT/HCPCS: 70450; 71110; 72125; 72128; 72131; 73030; 94664

== ENCOUNTER → 2019-07-12 | Outpatient (CLI) | payer MEDICARE ==
[~2019-07-12] MED LIST changes: +HYDR-34 PO; +POLY119P5 PO
[2019-07-12 13:16] LABS: HEMOGLOBIN 16.9 G/DL (13.3-17.7); MEAN PLATELET VOLUME 8.6 FL (7.4-10.4); RED CELL DISTRIBUTION WIDTH 13.8 % (10.0-14.5); WHITE BLOOD COUNT 10.7 10^3/uL (4.3-11.0)
[2019-07-12 13:38] LABS: ALANINE AMINOTRANSFERASE 19 U/L (0-55); ALBUMIN 4.2 GM/DL (3.2-4.5); ALKALINE PHOSPHATASE 108 U/L (40-136); BILIRUBIN,TOTAL 0.6 MG/DL (0.1-1.0); BUN/CREATININE RATIO 10; CALCIUM 9.1 MG/DL (8.5-10.1); CARBON DIOXIDE 25 MMOL/L (21-32); CHLORIDE 104 MMOL/L (98-107); CREATININE SERUM 1.07 MG/DL (0.60-1.30); GFR ESTIMATED > 60; GLUCOSE 139 MG/DL (70-105); POTASSIUM 4.5 MMOL/L (3.6-5.0); SODIUM 139 MMOL/L (135-145); TOTAL PROTEIN 7.7 GM/DL (6.4-8.2)
== END ==
LOC: CARD 12:50
PROVIDERS: ATTEND Orthopaedic Surgery
DX: Z01.812 Encounter for preprocedural laboratory examination (principal); Z01.810 Encounter for preprocedural cardiovascular examination
CPT/HCPCS: 36415; 80053; 85027; 93005

== ENCOUNTER → 2019-09-02 | Outpatient (CLI) | payer MEDICARE ==
[~2019-09-02] MED LIST changes: +BARIUM for suspension 96% w/w (Vanilla Silq Medium Density) PO ONE; +BARIUM for suspension 98% w/w (Vanilla Silq High Density) PO ONE
--- NOTE | 2019-09-02 15:24 | Diagnostic Imaging Report ---
INDICATION: Dysphagia. TECHNIQUE: Patient ingested effervescent crystals as well as thin and thick barium and imaging of the esophagus was performed in multiple obliquities. Total of 1 minute and 25 seconds of fluoroscopic time was utilized. FINDINGS: The esophagus has a fairly smooth contour. No mass or stricture is identified. No hiatal hernia or gastroesophageal reflux is demonstrated. IMPRESSION: Unremarkable esophagram. Dictated by: Dictated on workstation # [id number]
== END ==
LOC: RAD 09:00
PROVIDERS: ATTEND Surgery
DX: R13.10 Dysphagia, unspecified (principal)
CPT/HCPCS: 74220

== ENCOUNTER 2019-11-29 10:00 | Outpatient (RCR) | payer MEDICARE ==
[~2019-11-29 10:00] MED LIST changes: -BARIUM for suspension 96% w/w (Vanilla Silq Medium Density) PO ONE; -BARIUM for suspension 98% w/w (Vanilla Silq High Density) PO ONE
== END 2019-11-30 | disposition home or self-care (01) ==
PROVIDERS: ATTEND Orthopaedic Surgery
DX: M25.512 Pain in left shoulder (principal); Z98.890 Other specified postprocedural states

== ENCOUNTER 2020-01-19 09:16 | Outpatient (RCR) | payer MEDICARE | END 2020-01-19 11:40 | disposition home or self-care (01) | PROVIDERS: ATTEND Orthopaedic Surgery | DX: M25.512 Pain in left shoulder (principal); Z98.890 Other specified postprocedural states; Z86.79 Personal history of other diseases of the circulatory system ==

== ENCOUNTER 2021-09-23 16:40 | Emergency (ER) | payer MEDICARE ==
[~2021-09-23] VITALS: Ht 177.8 cm; Wt 90.7 kg
[~2021-09-23 16:40] MED LIST changes: -ISOS30TA3 PO; +ISOS30TA82 PO; -SULF1TAB35 PO; +SULF1TAB38 PO
--- NOTE | 2021-09-23 17:01 | ED EENT ---
History of Present Illness General Chief Complaint: Oral/Throat Problems Stated Complaint: BODY ACHES,SORE THROAT,VOMITING Source: patient, family Exam Limitations: no limitations (AMTEUS KIRK) History of Present Illness Date Seen by Provider: Sep 23, 2021 Time Seen by Provider: 16:58 Initial Comments This is a 76-year-old male that presents to the emergency room for evaluation of sore throat, nasal congestion and a cough. 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 He has not attempted any therapy prior to arrival and nothing specifically makes her symptoms better or worse. Timing/Duration: gradual Severity: moderate (MATEUS KIRK) Allergies and Home Medications Allergies Coded Allergies: No Known Drug Allergies (Unverified , 12/22/18) Patient Home Medication List Home Medication List Reviewed: Yes (MATEUS KIRK) Albuterol Sulfate (Proair Hfa) 1 Puff Puff, 2 PUFF IH Q4H Prescribed by: Darin Kirk on 09/23/21 1746 Atorvastatin Calcium (Atorvastatin Calcium) 40 Mg Tablet, 40 MG PO DAILY, (Reported) Entered as Reported by: GUSTAVO MEJIAS on 07/31/15 151 Clopidogrel Bisulfate (Clopidogrel) 75 Mg Tablet, 75 MG PO DAILY, (Reported) Entered as Reported by: RICK FRANCO on 03/15/19 1300 Ergocalciferol (Vitamin D2) (Vitamin D2) 2,000 Unit Tablet, 2,000 UNIT PO DAILY, (Reported) Entered as Reported by: RICK FRANCO on 05/19/17 1236 Furosemide (Furosemide) 40 Mg Tablet, 40 MG PO DAILY, (Reported) Entered as Reported by: GUSTAVO MEJIAS on 07/31/15 151 Gabapentin (Gabapentin) 300 Mg Capsule, 600 MG PO TID, (Reported) Entered as Reported by: GUSTAVO MEJIAS on 07/31/151510 Hydrocodone Bit/Acetaminophen (Lortab 5 Mg Tablet) 1 Each Tablet, 1 TAB PO Q12H PRN for PAIN, (Reported) Entered as Reported by: GUSTAVO MEJIAS on 07/31/15 151 Hydrocodone Bit/Acetaminophen (HYDROcodone/APAP 7.5/325 TAB) 1 Ea Tablet, 0.5-1 EA PO Q4H PRN for PAIN-BREAKTHROUGH Prescribed by: KAMI COYNE on 05/09/19 1313 Isosorbide Mononitrate (Isosorbide Mononitrate ER) 30 Mg Tab.er.24h, 30 MG PO DAILY, (Reported) Entered as Reported by: RICK FRANCO on 03/15/19 1300 Meloxicam (Meloxicam) 15 Mg Tablet, 15 MG PO DAILY, (Reported) Entered as Reported by: RICK FRANCO on 03/15/19 1300 Nortriptyline HCl (Pamelor) 10 Mg Capsule, 10 MG PO HS, (Reported) Entered as Reported by: RCIK FRANCO on 05/19/17 1236 Polyethylene Glycol 3350 (Miralax) 119 Gm Powder, 17 GM PO DAILY PRN PRN for CONSTIPATION-1ST LINE Prescribed by: KAMI COYNE on 05/09/19 1313 Potassium Chloride (Potassium Chloride) 10 Meq Capsule.er, 10 MEQ PO DAILY, (Reported) Entered as Reported by: GUSTAVO MEJIAS on 07/31/15 1511 Promethazine/Dextromethorphan (Promethazine-Dm Syrup) 6.25 Mg-15 Mg/5 Ml Syrup, 5 ML PO Q6H PRN for COUGH Prescribed by: Darin Kirk on 09/23/21 1746 Zolpidem Tartrate (Ambien) 5 Mg Tablet, 5 MG PO HS, (Reported) Entered as Reported by: RICK FRANCO on 03/15/19 1300 Review of Systems Review of Systems Constitutional: malaise Eyes: Inflammation Ears: No Symptoms Reported Nose: congestion, clear discharge Mouth: no symptoms reported Throat: pain Respiratory: cough Cardiovascular: no symptoms reported Musculoskeletal: no symptoms reported Skin: no symptoms reported (MATEUS KIRK) Past Kaqbmio-Yxowrr-Zzlqiu Hx Patient Social History Tobacco Use?: No Substance use?: No Alcohol Use?: No Pt feels they are or have been: No (MATEUS KIRK) Immunizations Up To Date Tetanus Booster (TDap): Unknown Influenza Vaccine Up-to-Date: Yes; Up-to-Date (MATEUS KIRK) Seasonal Allergies Seasonal Allergies: No (MATEUS KIRK) Past Medical History Surgeries: Yes (SHOULDER SURGERY x2, neck fusion, ) Cardiac, CABG, Orthopedic, Vascular Surgery Respiratory: No Currently Using CPAP: No Currently Using BIPAP: No Cardiac: Yes (CAROTID DISEASE, STENT) Coronary Artery Disease, High Cholesterol, Hypertension Neurological: Yes TIA Reproductive Disorders: No Sexually Transmitted Disease: Yes HIV/AIDS: No Genitourinary: Yes Kidney Stones 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 0.0oz. 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 specialist II-XII nml as tested, oriented x 3 Skin: normal color (MATEUS KIRK) Progress/Results/Core Measures Results/Orders Lab Results Laboratory Tests Test 09/23/21 16:57 Range/Units Influenza Type A (RT-PCR) Not Detected Not Detecte Influenza Type B (RT-PCR) Not Detected Not Detecte SARS-CoV-2 RNA (RT-PCR) Detected H Not Detecte (CHRISTOPHER REYES MD) Vital Signs/I&O 09/23/21 09/23/21 09/23/21 09/23/21 16:45 16:45 17:56 17:56 Temp 37.0 Pulse 101 101 84 84 Resp 14 16 B/P (MAP) 124/97 124/97 (106) 138/85 138/85 Pulse Ox 94 O2 Delivery Room Air Room Air (CHRISTOPHER REYES MD) Departure Communication (Admissions) Patient is afebrile, nontoxic and in no distress. He is positive for COVID-19 and does not wish to take the Paxlovid. He also will be treated symptomatically. (MATEUS KIRK) Impression Primary Impression: COVID-19 Disposition: 01 HOME, SELF-CARE Condition: Stable Departure-Patient Inst. Decision time for Depature: 17:43 (MATEUS KIRK) Referrals: KYLIE ZIMMERMAN MD (PCP/Family) Primary Care Physician Patient Instructions: COVID-19 ED Add. Discharge Instructions: Please follow up closely with your primary care provider as we discussed. Return to the ER with any severe changes or worsening of symptoms. All discharge instructions reviewed with patient and/or family. Voiced understanding. Scripts Promethazine/Dextromethorphan (Promethazine-Dm Syrup) 6.25 Mg-15 Mg/5 Ml Syrup 5 ML PO Q6H PRN for COUGH for 7 Days, #240 ML Prov: MATEUS KIRK 09/23/21 Albuterol Sulfate (PROAIR HFA) 1 Puff Puff 2 PUFF IH Q4H for Cough for 7 Days, #1 EA 1 PUFF = 90 MCG Prov: MATEUS KIRK 09/23/21 MATEUS KIRK Sep 23, 2021 17:01 CHRISTOPHER REYES MD Sep 23, 2021 20:17
[2021-09-23] MEDS ORDERED: D-ME473S11 PO (17:46)
[2021-09-23] MEDS ORDERED: RT-ALBUINH IH (17:46)
[2021-09-23 17:56] VITALS: BP 138/85
== END 2021-09-23 17:56 | disposition home or self-care (01) ==
LOC: EDUNIT# 16:40 → ER 16:41
DX: U07.1 COVID-19 (principal)
CPT/HCPCS: 87636; 99283

== ENCOUNTER 2022-02-06 20:20 | Emergency (ER) | payer MEDICARE ==
[~2022-02-06] VITALS: Ht 177.8 cm; Wt 90.7 kg
[~2022-02-06 20:20] MED LIST changes: +ALBU8.5H6 IH; +CLOP-31 PO; -CLOP75TA69 PO; +D-ME473S11 PO
[2022-02-06] MEDS ORDERED: SILVER NITRATE APPLICATOR 1 PKT TP ONE (20:45)
--- NOTE | 2022-02-06 20:45 | ED EENT ---
History of Present Illness General Chief Complaint: Dental Problems/Pain Stated Complaint: STITCHES IN MOUTH OPENED,BLEEDING Nursing Triage Note: PT AMB TO [facility] 5 WITH C/O STITCH FALLING OUT AFTER DENTAL WORK TODAY IN [place]. PT STATES HE IS GETTING FIT FOR DENTURES AND HAD A BONE SPUR THAT WAS GROUND DOWN FOR THOSE. PT STATES IT HAS BEEN BLEEDING SINCE GETTING HOME FROM DENTIST History of Present Illness Date Seen by Provider: Feb 06, 2022 Time Seen by Provider: 20:29 Initial Comments 76 year old male had dental work today in [place], bone spur on left upper mouth was filed down and suture was placed to get dentures. Patient is on Plavix. Upon returning home, the suture came out and he noted oozing of blood. They have t ried gauze packing but it continued to bleed. There was no after hours call number for the dentist. Timing/Duration: abrupt Location: mouth Prearrival Treatment: other (guaze packing) Associated Symptoms: denies symptoms Allergies and Home Medications Allergies Coded Allergies: No Known Drug Allergies (Unverified , 12/22/18) Patient Home Medication List Home Medication List Reviewed: Yes Albuterol Sulfate (Ventolin Hfa) 1 Puff Puff, 2 PUFF IH Q4H Prescribed by: Darin Kirk on 09/23/21 1746 Atorvastatin Calcium (Atorvastatin Calcium) 40 Mg Tablet, 40 MG PO DAILY, (Reported) Entered as Reported by: GUSTAVO MEJIAS on 07/31/15 1511 Clopidogrel Bisulfate (Clopidogrel) 75 Mg Tablet, 75 MG PO DAILY, (Reported) Entered as Reported by: RICK FRANCO on 03/15/19 1300 Ergocalciferol (Vitamin D2) (Vitamin D2) 2,000 Unit Tablet, 2,000 UNIT PO DAILY, (Reported) Entered as Reported by: RICK FRANCO on 05/19/17 1236 Furosemide (Furosemide) 40 Mg Tablet, 40 MG PO DAILY, (Reported) Entered as Reported by: GUSTAVO MEJIAS on 07/31/15 1511 Gabapentin (Gabapentin) 300 Mg Capsule, 600 MG PO TID, (Reported) Entered as Reported by: GUSTAVO MEJIAS on 07/31/15 1511 Hydrocodone Bit/Acetaminophen (Lortab 5 Mg Tablet) 1 Each Tablet, 1 TAB PO Q12H PRN for PAIN, (Reported) Entered as Reported by: GUSTAVO MEJIAS on 07/31/15 1511 Hydrocodone Bit/Acetaminophen (HYDROcodone/APAP 7.5/325 TAB) 1 Ea Tablet, 0.5-1 EA PO Q4H PRN for PAIN-BREAKTHROUGH Prescribed by: KAMI COYNE on 05/09/19 1313 Isosorbide Mononitrate (Isosorbide Mononitrate ER) 30 Mg Tab.er.24h, 30 MG PO DAILY, (Reported) Entered as Reported by: RICK FRANCO on 03/15/19 1300 Meloxicam (Meloxicam) 15 Mg Tablet, 15 MG PO DAILY, (Reported) Entered as Reported by: RICK FRANCO on 03/15/19 1300 Nortriptyline HCl (Pamelor) 10 Mg Capsule, 10 MG PO HS, (Reported) Entered as Reported by: RICK FRANCO on 05/19/17 1236 Polyethylene Glycol 3350 (Miralax) 119 Gm Powder, 17 GM PO DAILY PRN PRN for CONSTIPATION-1ST LINE Prescribed by: KAMI COYNE on 05/09/19 1313 Potassium Chloride (Potassium Chloride) 10 Meq Capsule.er, 10 MEQ PO DAILY, (Reported) Entered as Reported by: GUSTAVO MEJIAS on 07/31/15 1511 Promethazine/Dextromethorphan (Promethazine-Dm Syrup) 6.25 Mg-15 Mg/5 Ml Syrup, 5 ML PO Q6H PRN for COUGH Prescribed by: Darin Kirk on 09/23/21 1746 Zolpidem Tartrate (Ambien) 5 Mg Tablet, 5 MG PO HS, (Reported) Entered as Reported by: RICK FRANCO on 03/15/19 1300 Review of Systems Review of Systems Constitutional: no symptoms reported, see HPI Mouth: see HPI, clots, bloody discharge All Other Systems Reviewed Negative Unless Noted: Yes Past Iapracg-Psgbca-Zfofzb Hx Patient Social History Tobacco Use?: No Use of E-Cig and/or Vaping dev: No Substance use?: No Alcohol Use?: No Pt feels they are or have been: No Immunizations Up To Date Tetanus Booster (TDap): Unknown Influenza Vaccine Up-to-Date: Yes; Up-to-Date First/Initial COVID19 Vaccinat: YES Second COVID19 Vaccination Miguel: YES Third COVID19 Vaccination Date: YES Seasonal Allergies Seasonal Allergies: No Past Medical History Surgery/Hospitalization HX: HTN, HLD, STENTS, SHOULDER BILAT, NECK Surgeries: Yes (SHOULDER SURGERY x2, neck fusion, ) Cardiac, CABG, Orthopedic, Vascular Surgery Respiratory: No Currently Using CPAP: No Currently Using BIPAP: No Cardiac: Yes (CAROTID DISEASE, STENT) Coronary Artery Disease, High Cholesterol, Hypertension Neurological: Yes TIA Reproductive Disorders: No Sexually Transmitted Disease: Yes HIV/AIDS: No Genitourinary: Yes Kidney Stones 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 0.0oz. 91.372955up; 28.00 BMI Method:Stated General Appearance: WD/WN, no apparent distress Nose: normal inspection; No active bleeding Mouth/Throat: No normal mouth inspection (blood/clots noted to left upper gum) Cardiovascular: normal peripheral pulses, regular rate, rhythm Respiratory: chest non-tender, lungs clear Neurologic/Psychiatric: no motor/sensory deficits, alert, normal mood/affect, oriented x 3 Progress/Results/Core Measures Results/Orders My Orders Orders - FARHAN POLO Silver Nitrate Applicator (Silver Nitrat (02/06/22 20:45) Medications Given in ED Current Medications Medications Dose Ordered Sig/Joanna Route Start Time Stop Time Status Last Admin Dose Admin Silver Nitrate 1 pkt ONCE ONCE TP 02/06/22 20:45 02/06/22 20:46 DC 02/06/22 21:05 1 PKT Vital Signs/I&O 02/06/22 20:29 Temp 36.7 Pulse 84 Resp 16 B/P (MAP) 170/100 (123) Blood Pressure Mean: 123 Progress Progress Note : Time: 20:29 Progress Note tea bag moistened and packed along area of bleeding, with gauze. Instructed patient to bite down. Ice pack to left cheek. Will leave in place for 5-10 min and re-assess. 2044 bleeding stopped, new dressing in place, will re-assess 2099 no active bleeding on gauze. Incision site cauterized with silver nitrate sticks. Trace bleeding noted from center. Additional gauze applied. Will monitor to assure bleeding controlled, prior to discharge. 2119 trace bleeding from center. Electrocautery used to control bleeding. Gauze in place. 2134 no further bleeding noted. Gauze in place with tea bag. Will remove when they get home. Discharge instructions and return precautions reviewed. Departure Impression Primary Impression: Surgical wound hemorrhage after dental procedure Disposition: HOME, SELF-CARE Condition: Improved Departure-Patient Inst. Decision time for Depature: 21:00 Referrals: KYLIE ZIMMERMAN MD (PCP/Family) Primary Care Physician Patient Instructions: Bleeding After Surgery Add. Discharge Instructions: Continue to add gauze and bite down, if bleeding returns. Use moistened tea bag and ice pack to left cheek. Call dentist tomorrow, if bleeding continues. Continue home medications. Return to Emergency Dept for new, urgent health care need. All discharge instructions reviewed with patient and/or family. Voiced understanding. FARHAN POLO Feb 06, 2022 20:45
[2022-02-06 21:42] VITALS: BP 134/97
== END 2022-02-06 21:42 | disposition home or self-care (01) ==
LOC: EDUNIT# 20:20 → ER 20:22
DX: K91.841 Postprocedural hemorrhage of a digestive system organ or structure following other procedure (principal); Z79.02 Long term (current) use of antithrombotics/antiplatelets

== ENCOUNTER → 2022-10-03 | Outpatient (CLI) | payer MEDICARE ==
[~2022-10-03] MED LIST changes: -D-ME473S11 PO; -POTA10CA43 PO; +POTA10CA84 PO; +PROM473S15 PO
[2022-10-03 09:50] LABS: CHLORIDE 106 MMOL/L (98-107); POTASSIUM 3.6 MMOL/L (3.6-5.0); SODIUM 141 MMOL/L (135-145)
[2022-10-03 09:51] LABS: CALCIUM 9.2 MG/DL (8.5-10.1)
[2022-10-03 09:53] LABS: GLUCOSE 95 MG/DL (70-105); TOTAL PROTEIN 6.7 GM/DL (6.4-8.2)
[2022-10-03 09:54] LABS: CARBON DIOXIDE 24 MMOL/L (21-32)
[2022-10-03 09:55] LABS: BILIRUBIN,TOTAL 0.7 MG/DL (0.1-1.0)
[2022-10-03 09:56] LABS: ALKALINE PHOSPHATASE 54 U/L (40-136); CREATININE SERUM 1.13 MG/DL (0.60-1.30); GFR ESTIMATED 67
[2022-10-03 09:57] LABS: BUN/CREATININE RATIO 12
[2022-10-03 09:59] LABS: ALANINE AMINOTRANSFERASE 34 U/L (0-55)
--- NOTE | 2022-10-03 17:47 | Diagnostic Imaging Report ---
INDICATION: Chest pain. EXAMINATION: PA and lateral views of the chest were obtained at 10:04 a.m. FINDINGS: There is poststernotomy change with normal heart size. There is no focal infiltrate or pneumothorax or pleural fluid. A left subclavian artery stent is noted. IMPRESSION: Postop changes but no acute process in the chest. Dictated by: Dictated on workstation # [id number]
== END ==
LOC: CARD 09:15
PROVIDERS: ATTEND Family Medicine
DX: I25.112 Atherosclerotic heart disease of native coronary artery with refractory angina pectoris (principal); R07.89 Other chest pain; Z98.890 Other specified postprocedural states
CPT/HCPCS: 36415; 71046; 80053; 83874; 83880; 84484; 85379; 93005